=== PATIENT | female | born 1955 | race Caucasian/White ===

== ENCOUNTER 2017-06-16 04:01 | Inpatient (IN) | payer OTHER ==
--- NOTE | 2017-06-16 04:24 | PDOC ---
History of Present Illness - General History Source: Patient Exam Limitations: No Limitations - History of Present Illness Initial Comments: 06/16/17 05:27 The patient is a 62-year-old female BRAN with a significant past medical history of HTN, HLD, IDDM, and hyperkalemia, and presents to the emergency department with elevated blood sugar, nausea, and vomiting since yesterday afternoon. She states she has been feeling weird since yesterday, accompanied by heavy breathing and chest pain upon interview. As per EMS her blood sugar en route to the ED was approximately in the 530s. As per daughter the patient has an insulin pump that has been malfunctioning for a few days. Pt recently started taking pills to lower her potassium as she is planning to have surgery. She denies any sick contacts. Patient is a poor historian due to condition. The patient denies chest pain, headache and dizziness. The patient denies fever , chills, diarrhea and constipation. The patient denies dysuria, frequency, urgency and hematuria. Allergies: morphine Past Surgical History: colon resection, total hysterectomy, partial colectomy, ventral hernia repair Social History: Smoker. Denies ETOH or drug use. <Serenity Levine - Last Filed: 06/16/17 06:26> <Rosie Urrutia - Last Filed: 06/18/17 10:06> - General Stated Complaint: BLOOD SUGAR PROBLEM Time Seen by Provider: 06/16/17 04:20 Past History <Serenity Levine - Last Filed: 06/16/17 06:26> - Past Medical History Anemia: No Asthma: No Cancer: No Cardiac Disorders: No CVA: No COPD: No Dementia: No Diabetes: Yes (INSULIN DEPENDENT) GI Disorders: Yes (COLON CA) Disorders: No HTN: Yes Hypercholesterolemia: Yes Liver Disease: No Psychiatric Problems: Yes (depression,anxeity) Seizures: No Thyroid Disease: No - Surgical History Abdominal Surgery: Yes (COLON RESECTION) Appendectomy: No Cardiac Surgery: No Cholecystectomy: No Lung Surgery: No Neurologic Surgery: No Orthopedic Surgery: No - Immunization History Immunization Up to Date: Yes - Suicide/Smoking/Psychosocial Hx Smoking Status: Yes Smoking History: Current every day smoker Years of Tobacco Use: 0 Have you smoked in the past 12 months: Yes Number of Cigarettes Smoked Daily: 10 Cigars Per Day: 10 'Breaking Loose' booklet given: 01/11/14 Hx Alcohol Use: No Drug/Substance Use Hx: No Substance Use Type: None Hx Substance Use Treatment: No <Rosie Urrutia - Last Filed: 06/18/17 10:06> - Past Medical History Allergies/Adverse Reactions: Allergies Allergy/AdvReac Type Severity Reaction Status Date / Time morphine Allergy Verified 06/16/17 04:23 Home Medications: Ambulatory Orders Atorvastatin Ca [Lipitor] 20 mg PO HS #0 tablet 01/14/14 Insulin Pump Controller [Snap Insulin Pump Controller] 0 units SQ ASDIR Gabapentin 300 mg PO BID #60 capsule 08/23/14 Lipase/Protease/Amylase [Creon Dr 36,000 Units Capsule] 36,000 units PO TIDCM Amlodipine Besylate [Norvasc -] 5 mg PO DAILY #30 tablet 09/12/14 Review of Systems - Review of Systems Able to Perform ROS?: Yes Comments:: 06/16/17 05:28 GENERAL/CONSTITUTIONAL: No fever or chills. No weakness. HEAD, EYES, EARS, NOSE AND THROAT: No change in vision. No ear pain or discharge. No sore throat. CARDIOVASCULAR: (+) Chest pain. RESPIRATORY: (+) Shortness of breath. No cough, wheezing, or hemoptysis. GASTROINTESTINAL: (+) Nausea, (+) vomiting. No diarrhea or constipation. GENITOURINARY: No dysuria, frequency, or change in urination. MUSCULOSKELETAL: No joint or muscle swelling or pain. No neck or back pain. SKIN: No rash NEUROLOGIC: No headache, vertigo, loss of consciousness, or change in strength/ sensation. ENDOCRINE: No increased thirst. No abnormal weight change. HEMATOLOGIC/LYMPHATIC: No anemia, easy bleeding, or history of blood clots. ALLERGIC/IMMUNOLOGIC: No hives or skin allergy. <Serenity Levine - Last Filed: 06/16/17 06:26> *Physical Exam - Vital Signs Last Vital Signs Temp Pulse Resp BP Pulse Ox 98.7 F 110 H 14 128/50 98 06/16/17 04:23 06/16/17 04:23 06/16/17 04:23 06/16/17 04:23 06/16/17 04:23 - Physical Exam Comments: 06/16/17 06:22 GENERAL: Awake, alert, oriented. (+) Febrile. HEAD: No signs of trauma EYES: PERRLA, EOMI, sclera anicteric, conjunctiva clear ENT: Auricles normal inspection, hearing grossly normal, nares patent, oropharynx clear without exudates. (+) Dry mucosa. (+) Oral mucous membranes completely dry. NECK: Normal ROM, supple, no lymphadenopathy, JVD, or masses LUNGS: Breath sounds equal, clear to auscultation bilaterally. No wheezes, and no crackles HEART: (+) Sinus tachycardia. Regular rhythm, normal S1 and S2, no murmurs, rubs or gallops ABDOMEN: Soft, nontender, normoactive bowel sounds. No guarding, no rebound. No masses EXTREMITIES: Normal range of motion, no pitting edema. No clubbing or cyanosis. No cords, erythema, or tenderness NEUROLOGICAL: Cranial nerves II through XII grossly intact. SKIN: Warm, Dry, normal turgor, no rashes or lesions noted. <Levine,Serenity - Last Filed: 06/16/17 06:26> ED Treatment Course - LABORATORY CBC & Chemistry Diagram: 06/16/17 04:37 06/16/17 04:37 - ADDITIONAL ORDERS Additional order review: Laboratory Results 06/16/17 06/16/17 04:37 04:37 Sodium 129 L Potassium 6.6 H* D Chloride 95 L D Carbon Dioxide 13 L D Anion Gap 21 H BUN 43 H D Creatinine 2.5 H D Creat Clearance w eGFR 19.65 Random Glucose 762 H* D Calcium 9.4 Total Bilirubin 0.5 D AST 18 ALT 14 D Alkaline Phosphatase 144 H D Creatine Kinase 125 Troponin I < 0.02 Total Protein 6.7 Albumin 3.2 L D 06/16/17 04:37 RBC 3.41 L MCV 89.1 MCHC 30.3 L RDW 15.9 H D MPV 7.2 L Neutrophils % 89.7 H D Lymphocytes % 5.2 L D Monocytes % 4.8 Eosinophils % 0.1 D Basophils % 0.2 - Medications Given in the ED: ED Medications Discontinued Medications Generic Name Dose Route Start Last Admin Trade Name Freq PRN Reason Stop Dose Admin Insulin Human Regular 10 units 06/16/17 04:25 06/16/17 05:09 Novolin R Vial *For Ivpush Or Iv Drip Only* IVPUSH 06/16/17 04:26 10 units ONCE ONE Administration Ondansetron HCl 4 mg 06/16/17 04:32 06/16/17 05:09 Zofran Injection IVPB 06/16/17 04:33 4 mg ONCE ONE Administration <Serenity Levine - Last Filed: 06/16/17 06:26> - LABORATORY CBC & Chemistry Diagram: 06/18/17 05:00 06/18/17 05:00 <Rosie Urrutia - Last Filed: 06/18/17 10:06> Medical Decision Making - Medical Decision Making 06/16/17 06:19 Pt comes with DKA; family states that her insulin pump hasn't been working for 2 days and she has had a "bad cold" Pt is a smoker of cigarettes. On exam she is febrile. She has no complaints of abd pain or suprapubic pain. She has no flank pain. 06/18/17 10:01 Pt comes in severe DKA. SHe was given 10U regular insulin IVP guillermina she first came into the ER. EMS started IVNSS 1L Pt received another L on arrival Pt had a repeat 10U regular insulin IVP, as the nurse readied a regular insulin drip. Pt received a 3rd L of NSS. Pt also received 1 ampule of sodium bicarbonate in the 3rd L of NSS when her result of K+ elevation initially came back. Pt also given calcium gluconate. Pt also given ca+ channel chasity, as her BP is elevated and she is tachycardic. Pt has a bilateral pneumonia; she received zosyn in the ER and she is getting humidified O2 via nasal cannula. Pt signed out to the day ER doctor. SHe was admitted to ICU. <Rosie Urrutia - Last Filed: 06/18/17 10:06> *DC/Admit/Observation/Transfer <Serenity Levine - Last Filed: 06/16/17 06:26> - Discharge Dispostion Admit: Yes <Rosie Urrutia - Last Filed: 06/18/17 10:06> Diagnosis at time of Disposition: Diabetes mellitus, insulin dependent (IDDM), uncontrolled, DKA (diabetic ketoacidosis), Bilateral pneumonia - Discharge Dispostion Condition at time of disposition: Guarded
[2017-06-16] MEDS ORDERED: INSULIN REGULAR HUMAN 100 UNITS/ML *VIAL IVPUSH ONE ×2 (04:25→05:55)
[2017-06-16 04:26] VITALS: BMI 35.4
[2017-06-16] MEDS ORDERED: ONDANSETRON 4 MG/2 ML VIAL IVPB ONE (04:32)
[2017-06-16] MEDS ORDERED: INSULIN REGULAR HUMAN 100 UNITS/ML *VIAL ONE ×3 (04:46→09:05)
[2017-06-16] MEDS ORDERED: ONDANSETRON 4 MG/2 ML VIAL ONE (04:46)
[2017-06-16 04:56] LABS: BASOPHIL 0.2 % (0-2.0); EOSINOPHIL 0.1 % (0-4.5); MCHC 30.3 g/dl (32.0-36.0); MEAN CELL VOLUME 89.1 fl (80-96); MEAN PLT VOLUME 7.2 fl (7.5-11.1); NEUTROPHILS 89.7 % (42.8-82.8); PLATELET COUNT 487 K/MM3 (134-434); RDW 15.9 % (11.6-15.6); WHITE BLOOD COUNT 12.3 K/mm3 (4.0-10.0)
[2017-06-16 05:19] LABS: ALBUMIN 3.2 g/dl (3.4-5.0); ANION GAP 21 (8-16); BILIRUBIN,TOTAL 0.5 mg/dL (0.2-1.0); CALCIUM 9.4 mg/dL (8.5-10.1); CO2 13 mmol/L (21-32); CREATININE 2.5 mg/dL (0.55-1.02); SGOT/AST 18 U/L (15-37); SGPT/ALT 14 U/L (12-78); TOT PROT 6.7 g/dl (6.4-8.2)
[2017-06-16 05:20] LABS: ALK PHOS 144 U/L (45-117); CPK 125 IU/L (26-192); TROPONIN I < 0.02 ng/ml (0.00-0.05)
[2017-06-16 05:25] LABS: GLUCOSE,RANDOM 762 mg/dL (74-106)
[2017-06-16 05:27] LABS: ACETONE SERUM POSITIVE LARGE 3+ (NEGATIVE)
[2017-06-16] MEDS ORDERED: INSULIN REGULAR 100 UNITS in SODIUM CHLORIDE 99 ML IVPB ONE (05:30)
[2017-06-16] MEDS ORDERED: SODIUM BICARBONATE 8.4% 50 MEQ/50 ML VIAL IV ONE (05:38)
[2017-06-16] MEDS ORDERED: SODIUM BICARBONATE 8.4% - 50 ML ONE (05:50)
[2017-06-16] MEDS ORDERED: SODIUM CHLORIDE 0.9% 500 ML INFUS.BAG IV ONE (05:55)
[2017-06-16] MEDS ORDERED: CALCIUM GLUCONATE 10% - 1,000 MG/10 ML VIAL IVPUSH ONE (06:12)
[2017-06-16] MEDS ORDERED: ACETAMINOPHEN 1000 MG/100 ML VIAL (NON FORMULARY) IVPB ONE (06:14)
[2017-06-16] MEDS ORDERED: PIPERACILLIN/TAZOB 3.375 GM 3.375 GM in DEXTROSE 5%-WATER - 50 ML IVPB ONE (06:22)
[2017-06-16] MEDS ORDERED: CALCIUM GLUCONATE 10% - 1,000 MG/10 ML VIAL ONE (06:23)
[2017-06-16] MEDS ORDERED: ACETAMINOPHEN INJECTION 100 ML IVPB ONE (06:23)
[2017-06-16] MEDS ORDERED: PIPERACILLIN/TAZOB 3.375 GM 50 ML IVPB ONE (06:24)
[2017-06-16] MEDS ORDERED: dilTIAZem HCL 50 MG/10 ML - 10 ML VIAL IVPUSH ONE ×2 (06:37→07:17)
[2017-06-16] MEDS ORDERED: dilTIAZem HCL 125 MG/25 ML - 25 ML VIAL ONE (06:38)
[2017-06-16 06:48] LABS: ANION GAP 22 (8-16); CALCIUM 8.8 mg/dL (8.5-10.1); CO2 12 mmol/L (21-32); CREATININE 2.4 mg/dL (0.55-1.02)
[2017-06-16 06:59] LABS: GLUCOSE,RANDOM 609 mg/dL (74-106)
[2017-06-16] MEDS ORDERED: SODIUM CHLORIDE 0.45% 1,000 ML IV SCH (07:30)
[2017-06-16] MEDS: INSULIN DETEMIR 100 UNITS/ML MDV SQ SCH ×3 (09:29→16:11)
[2017-06-16 09:57] LABS: CHOLESTEROL 122 mg/dL (50-200)
[2017-06-16 09:58] LABS: TROPONIN I < 0.02 ng/ml (0.00-0.05)
[2017-06-16 09:59] LABS: CPK 157 IU/L (26-192)
[2017-06-16 10:49] LABS: ANION GAP 14 (8-16); CALCIUM 8.6 mg/dL (8.5-10.1); CO2 20 mmol/L (21-32); GLUCOSE,RANDOM 245 mg/dL (74-106)
[2017-06-16 10:50] LABS: CREATININE 2.1 mg/dL (0.55-1.02)
[2017-06-16] MEDS ORDERED: SODIUM CHLORIDE 1,000 ML IV SCH (11:15)
--- NOTE | 2017-06-16 11:40 | CONSULT ---
Consultation: REQUESTING PROVIDER: CONSULT REQUEST: RENAL CONSULT Freight Shipping Agent: Dr. Capone. HISTORY OF PRESENT ILLNESS: Patient is a 62 year old female came in to the ED via EMS with the chief complaint of weakness, tiredness, nausea, vomiting and diarrhoea. As per the patient, she has been feeling very well for the past few days. Patient was given a pill for hyperkalemia (says K was around 6) by her renal doctor which she didn't tolerate and started several episodes of watery diarrhoea, non bloody x 3 days ago. She mentions she lost her appetite, hasn't eaten for 2 days and in the meantime, her Insulin pump stopped working x 2 days. Yesterday, she started feeling nauseous with vomiting 3-4 episodes, brownish in colour, non bloody. Patient reports she checked her finger stick glucose and it was around 500. When EMS arrived, it was even higher as per the patient. Does mention she had subjective fevers, dry cough and shortness of breath but no chills, rigors, sweating, chest pain, palpitation, abdominal pain, headaches , loc, tingling or numbness. Bladder habit was normal. No urinary symptoms. In the ED, on arrival, she had a Temp of 99.5 F, tachycardic to a 100 bpm, normal BP. Labs were significant for leukocytosis of 12.3, H/H 9.2/30.4; K-5.2 ; Random glucose of 609. She was sent to the ICU for management of DKA. Today, she says she feels much better. No complaints. Past Medical Hx: IDDM, HTN, hyperlipidemia, CKD, carpal tunnel syndrome (B/L) Allergies: Morphine-->but patient says she is not allergic to Morphine anymore. Past surgical hx: incisional hernia with mesh ( on 08/31/2014), lysis of adhesions, colon CA, s/p colon resection with a reversal, s/p total hysterectomy Social: Lives at home with her Smoking: Current smoker- has been smoking since age 15 yrs, 1-1/2 a pack/day Alcohol: Denies Drugs: Denies REVIEW OF SYSTEMS: CONSTITUTIONAL: Present: generalized weakness Absent: fever, chills, diaphoresis, malaise, loss of appetite, weight change HEENT: Absent: rhinorrhea, nasal congestion, throat pain, throat swelling, difficulty swallowing, mouth swelling, ear pain, eye pain, visual changes CARDIOVASCULAR: Absent: chest pain, syncope, palpitations, irregular heart rate, lightheadedness , peripheral edema RESPIRATORY: Absent: cough, shortness of breath, dyspnea with exertion, orthopnea, wheezing, stridor, hemoptysis GASTROINTESTINAL: Absent: abdominal pain, abdominal distension, nausea, vomiting, diarrhea, constipation, melena, hematochezia GENITOURINARY: Absent: dysuria, frequency, urgency, hesitancy, hematuria, flank pain, genital pain MUSCULOSKELETAL: Absent: myalgia, arthralgia, joint swelling, back pain, neck pain SKIN: Absent: rash, itching, pallor HEMATOLOGIC/IMMUNOLOGIC: Absent: easy bleeding, easy bruising, lymphadenopathy, frequent infections ENDOCRINE: Absent: unexplained weight gain, unexplained weight loss, heat intolerance, cold intolerance NEUROLOGIC: Absent: headache, focal weakness or paresthesias, dizziness, unsteady gait, seizure, mental status changes, bladder or bowel incontinence PSYCHIATRIC: Absent: anxiety, depression, suicidal or homicidal ideation, hallucinations. PHYSICAL EXAMINATION Vital Signs - 24 hr 06/16/17 06/16/17 06/16/17 08:00 09:00 09:57 Temperature 99.5 F Pulse Rate 99 H 100 H Pulse Rate [ 115 H Left] Respiratory 20 18 Rate Blood Pressure 166/72 Blood Pressure 152/74 [Left Arm] O2 Sat by Pulse 100 100 Oximetry (%) 06/16/17 06/16/17 06/16/17 10:36 10:56 11:00 Temperature 99.4 F Pulse Rate 102 H 100 H Pulse Rate [ Left] Respiratory 18 22 Rate Blood Pressure 129/52 160/90 Blood Pressure [Left Arm] O2 Sat by Pulse 100 Oximetry (%) GENERAL: Patient is lying comfortably in bed, Awake, alert, and fully oriented, in no acute distress. HEAD: Normal with no signs of trauma. EYES: EOM intact, no pallor or icterus. EARS, NOSE, THROAT: Ears normal. Moist mucous membranes. NECK: Supple. LUNGS: B/L Breath sounds equal, clear to auscultation bilaterally. No wheezes, and no crackles. HEART: Regular rate and rhythm, normal S1 and S2 without murmur. ABDOMEN: Surgical scar mandujano + Soft, nontender, not distended, normoactive bowel sounds, no guarding, no rebound, no masses. No hepatomegaly or splenomegaly. MUSCULOSKELETAL: Normal range of motion at all joints. No bony deformities or tenderness. No CVA tenderness. UPPER EXTREMITIES: 2+ pulses, warm, well-perfused. No cyanosis. No clubbing. Cap refill <2 seconds. No peripheral edema. LOWER EXTREMITIES: 2+ pulses, warm, well-perfused. No calf tenderness. No peripheral edema. NEUROLOGICAL: No facial droop, power 5/5 in all extremities. Normal speech. Gait not observed. PSYCHIATRIC: Cooperative. Good eye contact. Appropriate mood and affect. SKIN: Warm, dry, normal turgor, no rashes or lesions noted. Laboratory Results - last 24 hr 06/16/17 06/16/17 06/16/17 09:08 09:08 09:08 Sodium Potassium Chloride Carbon Dioxide Anion Gap BUN Creatinine Random Glucose Hemoglobin A1c % 8.6 H D Calcium Creatine Kinase Cancelled Troponin I Cancelled Triglycerides Cancelled Cholesterol Cancelled Total LDL Cholesterol Cancelled HDL Cholesterol Cancelled 06/16/17 10:15 Sodium 141 Potassium 4.4 D Chloride 107 Carbon Dioxide 20 L D Anion Gap 14 BUN 42 H Creatinine 2.1 H Random Glucose 245 H D Hemoglobin A1c % Calcium 8.6 Creatine Kinase Troponin I Triglycerides Cholesterol Total LDL Cholesterol HDL Cholesterol Active Medications Generic Name Dose Route Start Last Admin Trade Name Alfonso PRN Reason Stop Dose Admin Acetaminophen 650 mg 06/16/17 07:27 Tylenol - PO Q6H PRN FEVER OR PAIN Amlodipine Besylate 5 mg 06/16/17 10:00 Norvasc - PO DAILY [facility] Atorvastatin Calcium 10 mg 06/16/17 22:00 Lipitor - PO HS [facility] Insulin Human Regular 100 100 mls @ 10 mls/hr 06/16/17 05:30 06/16/17 06:13 units/ Sodium Chloride IVPB 06/16/17 15:29 10 mls/hr NOW ONE Administration Protocol 10 UNITS/HR Sodium Chloride 1,000 mls @ 200 mls/hr 06/16/17 11:15 Normal Saline - IV ASDIR [facility] Insulin Detemir 20 units 06/16/17 08:00 06/16/17 09:29 Levemir Vial SQ Not Given BIDI [facility] Pneumococcal 13-Valent Conj Vacc 0.5 ml 06/16/17 11:20 Prevnar 13 Syringe - IM 06/16/17 11:21 .ONCE ONE Patient is a 62 year old female came in to the ED via EMS with the chief complaint of weakness, tiredness, nausea, vomiting and diarrhoea. As per the patient, she has been feeling very well for the past few days. Patient was given a pill for hyperkalemia (says K was around 6) by her renal doctor which she didn't tolerate and started several episodes of watery diarrhoea, non bloody x 3 days ago. ASSESSMENT/PLAN: 1. Uncontrolled Diabetes Mellitus 2. Diabetic Ketoacidosis 3. Acute on CKD 4. Hyperkalemia- resolved 5. Hypertension-controlled 6. Hyperlipidemia 7. H/O Right lower lobe 1.8 CM LUNG MASS SUSPICIOUS FOR NEOPLASTIC DISEASE 8. H/o Colon cancer s/p colon resection with reversal 9. Carpal Tunnel Syndrome- was scheduled for surgery but was on hold due to hyperkalemia as outpatient. Acute on chronic Kidney disease On arrival, Creatinine 2.5--->2.4-->2.1 is improving. Baseline creatinine 1.4 -1.7 in 2014 Continue IV Hydration Avoid any nephrotoxic drugs Hyperkalemia Likely in the setting of DKA Now resolved, K is 4.4 Rest as per primary. Case to be discussed with Dr. Llanos. Dispo: We will continue to follow the patient. Thank you for this consultative opportunity. Visit type - Emergency Visit Emergency Visit: Yes ED Registration Date: 06/16/17 Care time: The patient presented to the Emergency Department on the above date and was hospitalized for further evaluation of their emergent condition. - New Patient This patient is new to me today: Yes Date on this admission: 06/16/17 - Critical Care Critical Care patient: Yes Total Critical Care Time (in minutes): 35 Critical Care Statement: The care of this patient involved high complexity decision making to prevent further life threatening deterioration of the patient 's condition and/or to evaluate & treat vital organ system(s) failure or risk of failure.
[2017-06-16] MEDS: amLODIPine BESYLATE 5 MG TABLET (FP) PO SCH (12:13)
--- NOTE | 2017-06-16 12:38 | PN ---
Teaching Attending Note Name of Resident: Hiwot Castle ATTENDING PHYSICIAN STATEMENT I saw and evaluated the patient. I reviewed the resident's note and discussed the case with the resident. I agree with the resident's findings and plan as documented. SUBJECTIVE: Pt seen and examined in the ICU. Briefly, 62yo female with h/o HTN, hyperlipidemia, IDDM, who was admitted with hyperglycemia after her insulin pump has not been working for 2 days. Fingersticks at home have been high but has not been covering herself. Does report a cough, some subjective fevers and chills. Found to have an anion gap and hyperkalemic, started on IVF and insulin gtt, transferred to the ICU for further monitoring. OBJECTIVE: Last Vital Signs Temp Pulse Resp BP Pulse Ox 99.4 F 100 H 22 160/90 100 06/16/17 10:56 06/16/17 10:56 06/16/17 10:56 06/16/17 10:56 06/16/17 11:00 Intake & Output 06/13/17 06/14/17 06/15/17 06/16/17 23:59 23:59 23:59 23:59 Output Total 50 Balance -50 Weight 187 lb 2.759 oz Gen: lethargic but awake HEENT: dry mucous membranes Heart: tachycardic, regular Lung: decreased breath sounds at the bases Abd: soft, nontender Ext: no edema CBC, BMP 06/16/17 04:37 06/16/17 10:15 Active Medications Acetaminophen (Tylenol -) 650 mg PO Q6H PRN PRN Reason: FEVER OR PAIN Amlodipine Besylate (Norvasc -) 5 mg PO DAILY [facility] Last Admin: 06/16/17 12:13 Dose: 5 mg Atorvastatin Calcium (Lipitor -) 10 mg PO HS [facility] Heparin Sodium (Porcine) (Heparin -) 5,000 unit SQ TID [facility] Sodium Chloride (Normal Saline -) 1,000 mls @ 200 mls/hr IV ASDIR [facility] Last Admin: 06/16/17 12:11 Dose: 200 mls/hr Insulin Detemir (Levemir Vial) 20 units SQ BIDI [facility] Pneumococcal 13-Valent Conj Vacc (Prevnar 13 Syringe -) 0.5 ml IM .ONCE ONE Stop: 06/16/17 13:01 ASSESSMENT AND PLAN: Diabetic Ketoacidosis Acute on Chronic Renal Failure HTN Lung Mass r/o Pneumonia Smoker - IVF resuscitation - monitor urine output, creatinine - monitor BGM, BMP - insulin gtt - start long acting insulin when anion gap closed - empiric antibiotics - f/u cultures - will need CT chest noncontrast when stable, per pt she had a PET scan 2 years ago which was reportedly negative - DVT prophylaxis - continue ICU monitoring critical care time spent in reviewing chart, evaluating patient and formulating plan 40 min
--- NOTE | 2017-06-16 12:41 | EKG ---
Test Reason : Blood Pressure : / mmHG Vent. Rate : 112 BPM Atrial Rate : 112 BPM P-R Int : 152 ms QRS Dur : 090 ms QT Int : 342 ms P-R-T Axes : 072 064 075 degrees QTc Int : 466 ms SINUS TACHYCARDIA INCOMPLETE RIGHT BUNDLE BRANCH BLOCK POSSIBLE LEFT ATRIAL ENLARGEMENT SEPTAL INFARCT , AGE UNDETERMINED ABNORMAL ECG WHEN COMPARED WITH ECG OF 08-SEP-2014 01:29, SEPTAL INFARCT IS NOW PRESENT T WAVE VARIATION Confirmed by ACOSTA HIGUEAR, VICENTE ([id number]) on 06/16/2017 12:41:11 PM Referred By: Confirmed By:VICENTE SHANE MD
[2017-06-16] MEDS ORDERED: CEFTRIAXONE IVPB SCH (12:45)
[2017-06-16] MEDS ORDERED: AZITHROMYCIN IVPB 500 MG in DEXTROSE 5%-WATER - 250 ML IVPB SCH (12:45)
[2017-06-16] MEDS ORDERED: [UNRECOGNIZED DRUG - OTHER] IVPB SCH (12:45)
[2017-06-16] MEDS ORDERED: PNEUMOC 13-VAL CONJ-DIP CRM/PF 0.5 ML DISP.SYRIN IM ONE (13:00)
[2017-06-16] MEDS ORDERED: CEFTRIAXONE 50 ML IVPB SCH (13:17)
--- NOTE | 2017-06-16 13:31 | PN ---
Progress Note, Physician Chief Complaint: ID Full note dictated Couph productive chills 2 days with Insulin pump not functioning well Low grade temp - Current Medication List Current Medications: Active Medications Acetaminophen (Tylenol -) 650 mg PO Q6H PRN PRN Reason: FEVER OR PAIN Amlodipine Besylate (Norvasc -) 5 mg PO DAILY [facility] Last Admin: 06/16/17 12:13 Dose: 5 mg Atorvastatin Calcium (Lipitor -) 10 mg PO HS [facility] Heparin Sodium (Porcine) (Heparin -) 5,000 unit SQ TID [facility] Sodium Chloride (Normal Saline -) 1,000 mls @ 200 mls/hr IV ASDIR [facility] Last Admin: 06/16/17 12:11 Dose: 200 mls/hr Azithromycin 500 mg/ Dextrose 250 mls @ 250 mls/hr IVPB DAILY [facility] Ceftriaxone Sodium (Rocephin 1gm Ivpb (Pre-Docked)) 50 mls @ 100 mls/hr IVPB DAILY [facility] Insulin Detemir (Levemir Vial) 20 units SQ BIDI [facility] - Objective Vital Signs: Vital Signs Temperature 99.4 F 06/16/17 10:56 Pulse Rate 96 H 06/16/17 12:00 Respiratory Rate 23 06/16/17 12:00 Blood Pressure 122/59 06/16/17 12:00 O2 Sat by Pulse Oximetry (%) 100 06/16/17 11:00 Constitutional: Yes: Well Nourished, No Distress HENT: Yes: WNL, Atraumatic Neck: Yes: WNL, Supple Cardiovascular: Yes: Regular Rate and Rhythm, S1, S2. No: Murmur Respiratory: Yes: WNL, Regular, CTA Bilaterally, Other (Rales RLL) Gastrointestinal: Yes: Soft. No: Tenderness Edema: No Labs: CBC, BMP 06/16/17 10:15 Assessment/Plan Microbiology Laboratory Tests 06/16/17 06/16/17 06/16/17 04:37 04:37 06:10 WBC 12.3 H D RBC 3.41 L Hgb 9.2 L Plt Count 487 H BUN 47 H Alkaline Phosphatase 144 H D Albumin 3.2 L D Acetone, Qual Positive large 3+ H Assessment DKA Empiric treatment for PNA Lung Mass ? Since 2014 Plan Blood cultures LGA Sputum c/s Ceftriaxone 2 grs daily Discussed with pulmonary team CT chest Quant polo Trotter MD
--- NOTE | 2017-06-16 13:43 | CONSULT ---
Consultation: CONSULT REQUEST: critical care HISTORY OF PRESENT ILLNESS: 62yo woman, current smoker, with PMH of HTN, HLD, IDDM (insulin pump, dx 2000), CKD, colon Ca s/p resection (2011, last c-scope few months w/o e/o Ca) who presents with DKA in the setting of malfunctioning insulin pump for the past 2 days. The patient reports finger glucose sticks in the 500-600 range while at home without available back-up insulin pens. For the past several days she endorses chills, lethargy, and increased non-productive cough. She denies any sick contacts or recent travel. She had 2x NBNB emesis yesterday. Endorses increased thirst. No chest pain, abdominal pain or urinary symptoms. In the ED her VS were T 99.5 F, HR 100, BP 128/50, pSaO2 98% on RA. Labs were notable for leukocytosis (WBC 12.3K), hyperglycemia (BG 609), AG 21, +acetone in the urine. She was started on an insulin gtt and transferred to the ICU for further monitoring. PMH: Lung mass - 2014, Right middle lobe 1.8cm nodule on chest CT in 2014 that was PET neg, no further w/u PSH: colon Ca resection - [address] Diana, f/u C-scopes with Dr. Robert RAMIREZ Hernia repair FMH: No history of cancer, father with "heart disease" Social: Lives at home with and dog. 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 Baseline mobility - dyspnea after walking 2 blocks Daily smoker - approx 24 pack years (1/2 pack for 47yrs) Denies EtOH REVIEW OF SYSTEMS: CONSTITUTIONAL: +chills, generalized weakness HEENT: Absent: rhinorrhea, nasal congestion, throat pain, throat swelling, difficulty swallowing, mouth swelling, ear pain, eye pain, visual changes CARDIOVASCULAR: Absent: chest pain, syncope, palpitations, irregular heart rate , lightheadedness, peripheral edema RESPIRATORY: +cough, +SOB/WHITFIELD/orthopnea (sleeps with 2 pillows) Absent: wheezing, stridor, hemoptysis GASTROINTESTINAL: +nausea, 2x NBNB emesis Absent: abdominal pain, abdominal distension, diarrhea, constipation, melena, hematochezia GENITOURINARY: Absent: dysuria, frequency, urgency, hesitancy, hematuria, flank pain, genital pain MUSCULOSKELETAL: Absent: myalgia, arthralgia, joint swelling, back pain, neck pain SKIN: Absent: rash, itching, pallor HEMATOLOGIC/IMMUNOLOGIC: Absent: easy bleeding, easy bruising, lymphadenopathy, frequent infections ENDOCRINE: +increased thirst Absent: unexplained weight gain, unexplained weight loss, heat intolerance, cold intolerance NEUROLOGIC: Absent: headache, focal weakness or paresthesias, dizziness, unsteady gait, seizure, mental status changes, bladder or bowel incontinence PHYSICAL EXAMINATION Vital Signs Period Temp Pulse Resp BP Sys/Mcdaniel Pulse Ox Last 24 Hr 98.7 F-99.5 F 92-115 14-23 122-166/50-90 98-100 Intake & Output 06/13/17 06/14/17 06/15/17 06/16/17 23:59 23:59 23:59 23:59 Intake Total 2630 Output Total 1350 Balance 1280 Weight 84.9 kg GENERAL: aaox3, nad EYES: sclera anicteric, conjunctiva clear ENT: oropharynx clear without exudates, dry mucous membranes. NECK: supple, no cervical LAD LUNGS: CTAB, no wheezes, crackles or rhonchi HEART: rrr, normal S1/S2 without murmur, rub or gallop. ABDOMEN: Soft, ntnd, normoactive bowel sounds UPPER EXTREMITIES: 2+ pulses, wwp, no edema LOWER EXTREMITIES: 2+ pulses, wwp, no edema CBC, BMP 06/16/17 04:37 06/16/17 14:35 Hepatic Panel Total Bilirubin 0.5 mg/dL (0.2-1.0) D 06/16/17 04:37 AST 18 U/L (15-37) 06/16/17 04:37 ALT 14 U/L (12-78) D 06/16/17 04:37 Alkaline Phosphatase 144 U/L (45-117) H D 06/16/17 04:37 Albumin 3.2 g/dl (3.4-5.0) L D 06/16/17 04:37 Ca - 8.6 Hgb A1c - 8.6% Urine Acetone - Positive Large 3+ Imaging: CXR 06/16/2017: "since prior study of 09/08/2014, the mid-right lung mass (also seen 09/09/2014) has increased in size. Now approximately 4.5 x 3.0cm. Heart is not enlarged. Aortic and hilar contours are unremarkable." Active Medications Acetaminophen (Tylenol -) 650 mg PO Q6H PRN PRN Reason: FEVER OR PAIN Last Admin: 06/16/17 14:53 Dose: 650 mg Albuterol/Ipratropium (Duoneb -) 1 amp NEB Q6H PRN PRN Reason: SHORTNESS OF BREATH Amlodipine Besylate (Norvasc -) 5 mg PO DAILY [facility] Last Admin: 06/16/17 12:13 Dose: 5 mg Atorvastatin Calcium (Lipitor -) 10 mg PO HS [facility] Heparin Sodium (Porcine) (Heparin -) 5,000 unit SQ TID [facility] Last Admin: 06/16/17 14:57 Dose: 5,000 unit Sodium Chloride (Normal Saline -) 1,000 mls @ 200 mls/hr IV ASDIR [facility] Last Admin: 06/16/17 12:11 Dose: 200 mls/hr Ceftriaxone Sodium (Rocephin 2gm Ivpb (Pre-Docked)) 100 mls @ 200 mls/hr IVPB DAILY [facility] Azithromycin 500 mg/ Sodium (Chloride) 250 mls @ 250 mls/hr IVPB DAILY [facility] Insulin Aspart (Novolog) 6 units SQ NOW ONE Stop: 06/17/17 19:07 Insulin Aspart (Novolog Vial Sliding Scale -) 1 vial SQ Q2H [facility] PRN Reason: Protocol Insulin Detemir (Levemir Vial) 20 units SQ BIDI [facility] Last Admin: 06/16/17 16:11 Dose: Not Given Pantoprazole Sodium (Protonix -) 40 mg PO DAILY [facility] Last Admin: 06/16/17 19:51 Dose: 40 mg ASSESSMENT/PLAN: 62yo woman who is a current smoker (24 pack-years) with HTN, IDDM, CKD, colon Ca s/p resection who presents with DKA and acute on chronic renal failure in the setting of malfunctioning insulin pump and possible infection. Patient reports increased cough (non-productive) with generalized weakness. Patient started on insulin gtt with aggressive IVF resuscitation. ID was consulted, and patient started on Ceftriaxone and Azithromycin for CAP/atypical coverage vs post-obstrucive PNA. Chest radiograph revealed lung mass first noted in 2014 ( 1.8cm nodule on CT imaging, PET neg, never biopsied) that now appears larger. Discussed with patient suspicion for malignancy, and will repeat chest CT during this admission for further work-up. #DKA -insulin gtt until BG <250 -BGM q1h and BMP q4h until AG closed -Levemir 20U BID + ISS ACHS when AG closed -IVF resuscitation - NS @ 200cc/hr #possible CAP vs post-obstructive PNA -ID consulted -Empiric abx per ID (Azithromycin + Ceftriaxone) -f/u Legionella Ag -f/u Quant gold -f/u cultures #lung mass -non-con Chest CT #acute on CKD -Nephrology consulted -f/u Renal U/S -f/u UA -monitor urine output, creatinine #FEN -NS 200cc/hr -HyperK, resolving. Monitor lytes daily. -Diabetic/Na controlled diet #PPX -DVT - Heparin 5000U SQ TID Dispo: Continue ICU monitoring FULL code d/w Dr. Karsten Castle MD PGY-1 Visit type - Emergency Visit Emergency Visit: No - New Patient This patient is new to me today: Yes Date on this admission: 06/16/17 - Critical Care Critical Care patient: Yes Total Critical Care Time (in minutes): 40 Critical Care Statement: The care of this patient involved high complexity decision making to prevent further life threatening deterioration of the patient 's condition and/or to evaluate & treat vital organ system(s) failure or risk of failure.
[2017-06-16] MEDS: ACETAMINOPHEN 325 MG TABLET (FP) PO PRN (14:53)
[2017-06-16] MEDS: HEPARIN NA (PORCINE) 5,000 UNITS/ML 1ML VIAL SQ SCH ×2 (14:57→21:15)
[2017-06-16 15:32] LABS: ANION GAP 13 (8-16); CALCIUM 8.6 mg/dL (8.5-10.1); CO2 20 mmol/L (21-32); CREATININE 2.2 mg/dL (0.55-1.02); GLUCOSE,RANDOM 236 mg/dL (74-106)
[2017-06-16] MEDS ORDERED: CEFTRIAXONE 2 GM in DEXTROSE 5%-WATER - 100 ML IVPB ONE (16:11)
--- NOTE | 2017-06-16 16:27 | PN ---
Teaching Attending Note Name of Resident: Danielle Duque (Nephrology) ATTENDING PHYSICIAN STATEMENT I saw and evaluated the patient. I reviewed the resident's note and discussed the case with the resident. I agree with the resident's findings and plan as documented. Nephrology Consult Please see note written by medical sales. Pt is a 62 year old female with pmhx of HTN, HLD, IDDM, and hyperkalemia who presents the ER with nausea and vomiting. She was found to be in DKA. She was admited to the ICU and is on an insulin drip. She was found to have elevated creatinine and I was called to evaluate her. pmhx HTN, HLD, IDDM, and hyperkalemia social hx denies family hx dm allergies morphine Current Medications Generic Name Dose Route Start Last Admin Trade Name Freq PRN Reason Stop Dose Admin Acetaminophen 650 mg 06/16/17 07:27 06/16/17 14:53 Tylenol - PO 650 mg Q6H PRN Administration FEVER OR PAIN Amlodipine Besylate 5 mg 06/16/17 10:00 06/16/17 12:13 Norvasc - PO 5 mg DAILY [facility] Administration Atorvastatin Calcium 10 mg 06/16/17 22:00 Lipitor - PO HS [facility] Heparin Sodium (Porcine) 5,000 unit 06/16/17 14:00 06/16/17 14:57 Heparin - SQ 5,000 unit TID [facility] Administration Sodium Chloride 1,000 mls @ 200 mls/hr 06/16/17 11:15 06/16/17 12:11 Normal Saline - IV 200 mls/hr ASDIR [facility] Administration Azithromycin 500 mg/ Dextrose 250 mls @ 250 mls/hr 06/16/17 12:45 06/16/17 14: 53 IVPB 250 mls/hr DAILY [facility] Administration Ceftriaxone Sodium 100 mls @ 200 mls/hr 06/17/17 10:00 Rocephin 2gm Ivpb (Pre-Docked) IVPB DAILY [facility] Ceftriaxone Sodium 2 gm/ 100 mls @ 200 mls/hr 06/16/17 16:11 Dextrose IVPB 06/16/17 16:40 ONCE ONE Insulin Detemir 20 units 06/16/17 08:00 06/16/17 16:11 Levemir Vial SQ Not Given BIDI [facility] Current Active Problems DKA (diabetic ketoacidosis) (Acute) Diabetes mellitus, insulin dependent (IDDM), uncontrolled (Acute) Laboratory Tests 06/16/17 06/16/17 06/16/17 04:37 04:37 06:10 WBC 12.3 H D Hgb 9.2 L Sodium 136 Potassium 5.7 H Chloride 102 Carbon Dioxide 12 L Anion Gap 22 H BUN 47 H Creatinine 2.5 H D 2.4 H Acetone, Qual Positive large 3+ H 06/16/17 06/16/17 10:15 14:35 WBC Hgb Sodium 141 140 Potassium 4.4 D 4.9 Chloride 107 Carbon Dioxide 20 L D Anion Gap BUN 42 H Creatinine 2.1 H 2.2 H Acetone, Qual Last Vital Signs Temp Pulse Resp BP Pulse Ox 99.4 F 92 H 20 137/51 100 06/16/17 10:56 06/16/17 14:00 06/16/17 14:00 06/16/17 14:00 06/16/17 11:00 cardio s12s reg pulm clear GI soft ext neg edema neuro awake Impression 1. CKD with acute component 2. hyperkalemia 3. DKA 4. htn 5. chol Plan - potassium is improved - monitor renal function - will obtain outpt records - check ua and renal ultrasound - cont fluids Dr Llanos
[2017-06-16] MEDS ORDERED: INSULIN (NOVOLOG) ASPART 100 UNITS/ML 10ML VIAL SQ ONE (16:45)
--- NOTE | 2017-06-16 16:58 | HP ---
Admitting History and Physical - Primary Care Physician PCP: Nathalia Arciniega - Admission Chief Complaint: HYPERGLYCEMIA HYPEROSMOLAR STATE History of Present Illness: The patient is a 62-year-old female BRAN with a significant past medical history of HTN, HLD, IDDM, and hyperkalemia, and presents to the emergency department with elevated blood sugar, nausea, and vomiting since yesterday afternoon. She states she has been feeling weird since yesterday, accompanied by heavy breathing and chest pain upon interview. As per EMS her blood sugar en route to the ED was approximately in the 530s. As per daughter the patient has an insulin pump that has been malfunctioning for a few days. Pt recently started taking pills to lower her potassium as she is planning to have surgery. She denies any sick contacts. Patient is a poor historian due to condition. The patient denies chest pain, headache and dizziness. The patient denies fever , chills, diarrhea and constipation. The patient denies dysuria, frequency, urgency and hematuria. History Source: Medical Record Limitations to Obtaining History: Clinical Condition - Past Medical History Cardiovascular: Yes: HTN, Hyperlipdemia Gastrointestinal: Yes: Cancer (COLON), GERD ...: No Psych: Yes: Anxiety Endocrine: Yes: Diabetes Mellitus (ON INSULIN PUMP) - Past Surgical History Past Surgical History: Yes: Colectomy (2 YRS AGO COLON CA), Hernia Repair ( icisional) - Advance Directives Advance Directives: Yes: Health Care Proxy - Smoking History Smoking history: Current every day smoker Have you smoked in the past 12 months: Yes Aproximately how many cigarettes per day: 10 - Alcohol/Substance Use Hx Alcohol Use: No - Social History ADL: Independent History of Recent Travel: No Home Medications - Allergies Allergies/Adverse Reactions: Allergies Allergy/AdvReac Type Severity Reaction Status Date / Time morphine Allergy Verified 06/16/17 04:23 - Home Medications Home Medications: Ambulatory Orders Atorvastatin Ca [Lipitor] 20 mg PO HS #0 tablet 01/14/14 Insulin Pump Controller [Snap Insulin Pump Controller] 0 units SQ ASDIR Gabapentin 300 mg PO BID #60 capsule 08/23/14 Lipase/Protease/Amylase [Ziaon Dr 36,000 Units Capsule] 36,000 units PO TIDCM Amlodipine Besylate [Norvasc -] 5 mg PO DAILY #30 tablet 09/12/14 Review of Systems - Review of Systems Constitutional: reports: Malaise, Weakness Eyes: reports: No Symptoms HENT: reports: No Symptoms Neck: reports: No Symptoms Cardiovascular: reports: No Symptoms Respiratory: reports: Cough Gastrointestinal: reports: Nausea Genitourinary: reports: No Symptoms Musculoskeletal: reports: Joint Pain Integumentary: reports: No Symptoms Neurological: reports: Confusion Endocrine: reports: No Symptoms Hematology/Lymphatic: reports: No Symptoms Psychiatric: reports: No Symptoms Physical Examination Vital Signs: Vital Signs Temperature 99.4 F 06/16/17 10:56 Pulse Rate 92 H 06/16/17 14:00 Respiratory Rate 20 06/16/17 14:00 Blood Pressure 137/51 06/16/17 14:00 O2 Sat by Pulse Oximetry (%) 100 06/16/17 11:00 Constitutional: Yes: Moderate Distress Eyes: Yes: WNL HENT: Yes: WNL Neck: Yes: WNL Cardiovascular: Yes: WNL Respiratory: Yes: WNL Gastrointestinal: Yes: WNL Musculoskeletal: Yes: WNL Extremities: Yes: WNL Edema: No Peripheral Pulses WNL: Yes Integumentary: Yes: WNL Wound/Incision: Yes: Clean/Dry Neurological: Yes: WNL ...Motor Strength: WNL Psychiatric: Yes: WNL Labs: CBC, BMP 06/16/17 14:35 Assessment/Plan ACUTE HYPEROSMOLAR STATE BGM Q 2HRS RENAL EVAL DR FERRARA ENDOCRINE DR BROOKS IVF IV INSULIN LEVEMIR 20UNITS BID INSULIN PUMP MALFUNCTION WILL NEED TO HAVE IT REASSESSED. LEUKOCYTOSIS ID CONSULT MONITOR IN ICU
--- NOTE | 2017-06-16 17:25 | CONS ---
DATE OF CONSULTATION: DATE OF DICTATION: 06/16/2017 INFECTIOUS DISEASE CONSULTATION HISTORY OF PRESENT ILLNESS: This is a 62-year-old diabetic female with a history of hypertension and an insulin pump who presented to the emergency room with complaints of nausea, vomiting since yesterday afternoon. She also notes over the last 2 days experiencing a productive cough associated with chills. She denies any shortness of breath, diaphoresis, recent weight loss. Her x-rays showed a possible mass on the right lung. Looking back on previous CAT scans from 2014, it appears as though she definitely had a mass at that time. When asked, she says that this issue was put to rest after having a PET scan at [facility] in the past, which did not show evidence for anything "serious". The patient had some sputum production yesterday, but denies any hemoptysis. She has a long history of smoking and continues to smoke. She has no substance abuse history or history of recent travel. Pets include a dog. She has no unusual hobby and no obvious HIV risk factors, though I am not sure she has ever been tested. PAST MEDICAL HISTORY: Includes colon resection, hysterectomy, partial colectomy, ventral hernia repair. MEDICATION: Atorvastatin, an insulin pump, gabapentin, amlodipine, Bystolic, Diovan, Protonix. ALLERGIES: None known. SOCIAL HISTORY: Smoker. Lives at home. No unusual hobbies, pet birds. FAMILY HISTORY: Reviewed. Noncontributory. REVIEW OF SYSTEMS: Respiratory: Productive cough, no hemoptysis. History of a lung mass on CAT scan. Daily smoking. Cardiac: No chest pain, palpitations, syncope, murmur. Gastrointestinal: No nausea, vomiting, no abdominal pain, diarrhea, hematemesis. Genitourinary: No dysuria, hematuria, urinary frequency. PHYSICAL EXAMINATION: General: She is an alert female in no acute distress. Vital signs: Temperature 99.4, pulse 96, blood pressure , respirations 23. Neck: Supple. No adenopathy. Lungs: Clear to percussion with a few right basilar rales. Heart: S1, S2. Regular rhythm without murmur or gallop. Abdomen: Soft. Nontender without hepatosplenomegaly. Extremities: Without clubbing, cyanosis, or edema. LABORATORY: The white count was 12.3 with a hemoglobin of 9.2, platelets of 487. BUN 47, creatinine 2.4, glucose 609, alkaline phosphatase 144. Two sets of blood cultures pending. ASSESSMENT: A 62-year-old female with insulin dependent diabetes presents with DKA, also noted is a productive cough with chest x-ray suggesting a possible mass and/or infiltrate in the right lower lobe. She has had workup for this problem in the past, dating back to 2014, though no definite diagnosis of malignancy as best I can determine. She is at high risk for cancer, and her CAT scan of the chest appears consistent with a neoplastic lesion in 2015. At this point, agree with empiric treatment for community acquired pneumonia as well as post-obstructive pneumonia, Rocephin and azithromycin should be fine for now. She does not appear toxic nor have criteria for sepsis. Obtain blood culture, legionella urinary antigen, sputum for ARMHOLE RAISER LOCKSTITCH, CRP, and CAT scan of the chest. Case was discussed with the pulmonary team. SLOAN KAMARA M.D. [id number]
[2017-06-16] MEDS ORDERED: ZOLPIDEM TARTRATE 5 MG TABLET PO ONE ×2 (18:52→21:15)
[2017-06-16] MEDS ORDERED: AZITHROMYCIN IVPB 500 MG in SODIUM CHLORIDE 250 ML IVPB SCH (19:14)
[2017-06-16] MEDS: PANTOPRAZOLE 40 MG TABLET (FP) PO SCH (19:51)
[2017-06-16 21:11] LABS: ANION GAP 10 (8-16); CALCIUM 8.3 mg/dL (8.5-10.1); CO2 21 mmol/L (21-32); CREATININE 2.2 mg/dL (0.55-1.02); GLUCOSE,RANDOM 255 mg/dL (74-106)
[2017-06-16] MEDS: ATORVASTATIN CA 10 MG TABLET (FP) PO SCH (21:17)
[2017-06-16] MEDS: INSULIN SLIDING SCALE (NOVOLOG) 1 VIAL SQ SCH (21:17)
[2017-06-16] MEDS ORDERED: INSULIN SLIDING SCALE (NOVOLOG) 1 VIAL SQ SCH (22:00)
[2017-06-16 22:41] LABS: URINE APPEARANCE SLCLOUDY; URINE BILIRUBIN NEGATIVE (NEGATIVE); URINE BLOOD 1+ (NEGATIVE); URINE COLOR LTYELLOW; URINE GLUCOSE (UA) NEGATIVE (NEGATIVE); URINE KETONE TRACE (NEGATIVE); URINE NITRITE NEGATIVE (NEGATIVE); URINE UROBILINOGEN NEGATIVE mg/dL (0.2-1.0)
[2017-06-16 22:46] LABS: URINE PROTEIN 1+ (NEGATIVE)
--- NOTE | 2017-06-16 22:47 | CONSULT ---
Consult Consult Specialty:: endocrine /diabetes Referred by:: Reason for Consultation:: dka/dehydration - History of Present Illness History of Present Illness: 62 year old female came in to the ED via EMS with the chief complaint of weakness, tiredness, nausea, vomiting and diarrhoea. As per the patient, she has been feeling very well for the past few days. Patient was given a pill for hyperkalemia (says K was around 6) by her renal doctor which she didn't tolerate and started several episodes of watery diarrhoea, non bloody x 3 days ago. She mentions she lost her appetite, hasn't eaten for 2 days and in the meantime, her Insulin pump stopped working x 2 days. Yesterday, she started feeling weak and vomiting started,sugars were higher each time reaching high 700mg/dl in er.she required iv fluids and insulin drip started. - History Source History Provided By: Patient - Past Medical History Cardio/Vascular: Yes: HTN, Hyperlipdemia Gastrointestinal: Yes: Cancer (COLON), GERD ...: No Psych: Yes: Anxiety Endocrine: Yes: Diabetes Mellitus (ON INSULIN PUMP) - Past Surgical History Past Surgical History: Yes: Colectomy (2 YRS AGO COLON CA), Hernia Repair ( icisional) - Alcohol/Substance Use Hx Alcohol Use: No - Smoking History Smoking history: Current every day smoker Have you smoked in the past 12 months: Yes Aproximately how many cigarettes per day: 10 - Social History Usual Living Arrangement: With Spouse ADL: Independent History of Recent Travel: No Home Medications - Allergies Allergies/Adverse Reactions: Allergies Allergy/AdvReac Type Severity Reaction Status Date / Time morphine Allergy Verified 06/16/17 04:23 - Home Medications Home Medications: Ambulatory Orders Atorvastatin Ca [Lipitor] 20 mg PO HS #0 tablet 01/14/14 Insulin Pump Controller [Snap Insulin Pump Controller] 0 units SQ ASDIR Gabapentin 300 mg PO BID #60 capsule 08/23/14 Lipase/Protease/Amylase [Ira Rm 36,000 Units Capsule] 36,000 units PO TIDCM Amlodipine Besylate [Norvasc -] 5 mg PO DAILY #30 tablet 09/12/14 Review of Systems - Review of Systems Constitutional: reports: Lethargy, Weakness Eyes: reports: Blurred Vision Neck: reports: No Symptoms Cardiovascular: reports: Shortness of Breath Respiratory: reports: Exercise Intolerance, SOB on Exertion Gastrointestinal: reports: Bloating, Nausea Genitourinary: reports: No Symptoms Breasts: reports: No Symptoms Reported Musculoskeletal: reports: Joint Swelling, Muscle Pain, Muscle Cramps, Muscle Weakness Integumentary: reports: No Symptoms Neurological: reports: Weakness Endocrine: reports: Unexplained Weight Gain Physical Exam Vital Signs: Vital Signs Temperature 99.4 F 06/16/17 10:56 Pulse Rate 100 H 06/16/17 22:00 Respiratory Rate 14 06/16/17 22:00 Blood Pressure 129/52 06/16/17 22:00 O2 Sat by Pulse Oximetry (%) 100 06/16/17 11:00 Constitutional: Yes: Anxious Eyes: Yes: EOM Intact HENT: Yes: Normocephalic Neck: Yes: Trachea Midline Cardiovascular: Yes: Regular Rate and Rhythm Respiratory: Yes: CTA Bilaterally Gastrointestinal: Yes: Normal Bowel Sounds ...Rectal Exam: Yes: Deferred Renal/: Yes: WNL Musculoskeletal: Yes: Muscle Pain, Muscle Weakness Extremities: Yes: WNL Edema: No Peripheral Pulses WNL: Yes Neurological: Yes: Alert, Oriented Labs: CBC, BMP 06/16/17 20:00 Assessment/Plan Current Active Problems Bilateral pneumonia (Acute) DKA (diabetic ketoacidosis) (Acute) Diabetes mellitus, insulin dependent (IDDM), uncontrolled (Acute) Abnormal Lab Results 06/16/17 06/16/17 06/16/17 04:37 04:37 06:10 WBC 12.3 H D RBC 3.41 L Hgb 9.2 L Hct 30.4 L MCHC 30.3 L RDW 15.9 H D Plt Count 487 H MPV 7.2 L Neutrophils % 89.7 H D Lymphocytes % 5.2 L D Sodium 129 L Potassium 6.6 H* D 5.7 H Chloride 95 L D Carbon Dioxide 13 L D 12 L Anion Gap 21 H 22 H BUN 43 H D 47 H Creatinine 2.5 H D 2.4 H Random Glucose 762 H* D 609 H* D Hemoglobin A1c % Calcium Alkaline Phosphatase 144 H D Albumin 3.2 L D Urine Protein Urine Ketones Urine Blood Acetone, Qual Positive large 3+ H 06/16/17 06/16/17 06/16/17 09:08 10:15 14:35 WBC RBC Hgb Hct MCHC RDW Plt Count MPV Neutrophils % Lymphocytes % Sodium Potassium Chloride Carbon Dioxide 20 L D 20 L Anion Gap BUN 42 H 46 H Creatinine 2.1 H 2.2 H Random Glucose 245 H D 236 H Hemoglobin A1c % 8.6 H D Calcium Alkaline Phosphatase Albumin Urine Protein Urine Ketones Urine Blood Acetone, Qual 06/16/17 06/16/17 20:00 22:40 WBC RBC Hgb Hct MCHC RDW Plt Count MPV Neutrophils % Lymphocytes % Sodium Potassium Chloride Carbon Dioxide Anion Gap BUN 51 H Creatinine 2.2 H Random Glucose 255 H Hemoglobin A1c % Calcium 8.3 L Alkaline Phosphatase Albumin Urine Protein 1+ H D Urine Ketones Trace H Urine Blood 1+ H Acetone, Qual Laboratory Results - last 24 hr 06/16/17 06/16/17 06/16/17 04:37 04:37 04:37 WBC 12.3 H D RBC 3.41 L Hgb 9.2 L Hct 30.4 L MCV 89.1 MCH 27.0 MCHC 30.3 L RDW 15.9 H D Plt Count 487 H MPV 7.2 L Neutrophils % 89.7 H D Lymphocytes % 5.2 L D Monocytes % 4.8 Eosinophils % 0.1 D Basophils % 0.2 Sodium 129 L Potassium 6.6 H* D Chloride 95 L D Carbon Dioxide 13 L D Anion Gap 21 H BUN 43 H D Creatinine 2.5 H D Creat Clearance w eGFR 19.65 Random Glucose 762 H* D Hemoglobin A1c % Calcium 9.4 Total Bilirubin 0.5 D AST 18 ALT 14 D Alkaline Phosphatase 144 H D Creatine Kinase 125 Creatine Kinase Index CK-MB (CK-2) Troponin I < 0.02 Total Protein 6.7 Albumin 3.2 L D Triglycerides Cholesterol Total LDL Cholesterol HDL Cholesterol Urine Color Urine Appearance Urine pH Urine Protein Urine Glucose (UA) Urine Ketones Urine Blood Urine Nitrite Urine Bilirubin Urine Urobilinogen Acetone, Qual Positive large 3+ H 06/16/17 06/16/17 06/16/17 06:10 09:08 09:08 WBC RBC Hgb Hct MCV MCH MCHC RDW Plt Count MPV Neutrophils % Lymphocytes % Monocytes % Eosinophils % Basophils % Sodium 136 Potassium 5.7 H Chloride 102 Carbon Dioxide 12 L Anion Gap 22 H BUN 47 H Creatinine 2.4 H Creat Clearance w eGFR Random Glucose 609 H* D Hemoglobin A1c % Calcium 8.8 Total Bilirubin AST ALT Alkaline Phosphatase Creatine Kinase 157 Cancelled Creatine Kinase Index 2.1 CK-MB (CK-2) 3.382 Troponin I < 0.02 Cancelled Total Protein Albumin Triglycerides 117 Cancelled Cholesterol 122 D Cancelled Total LDL Cholesterol 62 Cancelled HDL Cholesterol 40 D Cancelled Urine Color Urine Appearance Urine pH Urine Protein Urine Glucose (UA) Urine Ketones Urine Blood Urine Nitrite Urine Bilirubin Urine Urobilinogen Acetone, Qual 06/16/17 06/16/17 06/16/17 09:08 10:15 14:35 WBC RBC Hgb Hct MCV MCH MCHC RDW Plt Count MPV Neutrophils % Lymphocytes % Monocytes % Eosinophils % Basophils % Sodium 141 140 Potassium 4.4 D 4.9 Chloride 107 107 Carbon Dioxide 20 L D 20 L Anion Gap 14 13 BUN 42 H 46 H Creatinine 2.1 H 2.2 H Creat Clearance w eGFR Random Glucose 245 H D 236 H Hemoglobin A1c % 8.6 H D Calcium 8.6 8.6 Total Bilirubin AST ALT Alkaline Phosphatase Creatine Kinase Creatine Kinase Index CK-MB (CK-2) Troponin I Total Protein Albumin Triglycerides Cholesterol Total LDL Cholesterol HDL Cholesterol Urine Color Urine Appearance Urine pH Urine Protein Urine Glucose (UA) Urine Ketones Urine Blood Urine Nitrite Urine Bilirubin Urine Urobilinogen Acetone, Qual 06/16/17 06/16/17 20:00 22:40 WBC RBC Hgb Hct MCV MCH MCHC RDW Plt Count MPV Neutrophils % Lymphocytes % Monocytes % Eosinophils % Basophils % Sodium 138 Potassium 4.5 Chloride 107 Carbon Dioxide 21 Anion Gap 10 BUN 51 H Creatinine 2.2 H Creat Clearance w eGFR Random Glucose 255 H Hemoglobin A1c % Calcium 8.3 L Total Bilirubin AST ALT Alkaline Phosphatase Creatine Kinase Creatine Kinase Index CK-MB (CK-2) Troponin I Total Protein Albumin Triglycerides Cholesterol Total LDL Cholesterol HDL Cholesterol Urine Color Ltyellow Urine Appearance Slcloudy Urine pH 5.0 D Urine Protein 1+ H D Urine Glucose (UA) Negative Urine Ketones Trace H Urine Blood 1+ H Urine Nitrite Negative Urine Bilirubin Negative Urine Urobilinogen Negative Acetone, Qual dehydration /dka hyperglycemia plan: insulin dripq 1 hr coverage with drip below 60 bgm dc drip start levemir 20 units am/ levemir 20 units pm as ag improved
[2017-06-16 22:49] LABS: URINE BACTERIA RARE /hpf (NONE SEEN); URINE HYALINE CAST 3 /lpf; URINE RBC 3 /hpf (0-3); URINE WBC 22 /hpf (3-5)
[2017-06-17] MEDS: ALBUTEROL SO4 2.5/IPRATROPIUM 0.5 INH SOL 3 ML VIAL.NEB. NEB PRN (00:12)
[2017-06-17] MEDS ORDERED: HEMOQUE CONTROL SOLUTION ONE (00:38)
[2017-06-17] MEDS: HEPARIN NA (PORCINE) 5,000 UNITS/ML 1ML VIAL SQ SCH ×3 (06:04→21:14)
[2017-06-17] MEDS: INSULIN DETEMIR 100 UNITS/ML MDV SQ SCH ×2 (06:05→17:23)
[2017-06-17] MEDS: INSULIN SLIDING SCALE (NOVOLOG) 1 VIAL SQ SCH ×7 (06:05→21:14)
[2017-06-17 06:13] LABS: MCH 27.6 pg (25.7-33.7); MCHC 32.5 g/dl (32.0-36.0); MEAN CELL VOLUME 85.1 fl (80-96); MEAN PLT VOLUME 6.9 fl (7.5-11.1); PLATELET COUNT 409 K/MM3 (134-434); RDW 15.7 % (11.6-15.6); WHITE BLOOD COUNT 13.3 K/mm3 (4.0-10.0)
[2017-06-17 06:40] LABS: ALBUMIN 2.5 g/dl (3.4-5.0); ALK PHOS 110 U/L (45-117); ANION GAP 12 (8-16); BILIRUBIN,TOTAL 0.3 mg/dL (0.2-1.0); CO2 19 mmol/L (21-32); CREATININE 1.9 mg/dL (0.55-1.02); GLUCOSE,RANDOM 120 mg/dL (74-106); MAGNESIUM 1.8 mg/dL (1.8-2.4); PHOSPHOROUS 3.2 mg/dL (2.5-4.9); SGOT/AST 18 U/L (15-37); SGPT/ALT 13 U/L (12-78); TOT PROT 5.5 g/dl (6.4-8.2)
--- NOTE | 2017-06-17 08:11 | PN ---
Physical Exam: 24H Events: yesterday - insulin gtt d/c O/N - no acute events AM - new onset Afib with rates in 150's, BP 160's/100 --> gave 5mg Lopressor, 5mg Diltiazem IVPUSH with no effect; started diltiazem drip and converted to back to NSR SUBJECTIVE: Patient seen and examined in ICU. Poor sleep overnight. Continues to have SOB and dry cough. No chest pain or palpitations during Afib episode. Denies fever and chills. OBJECTIVE: Vital Signs Period Temp Pulse Resp BP Sys/Mcdaniel Pulse Ox Last 24 Hr 97.8 F-98.7 F 90-190 13-21 114-164/52-101 96 Intake & Output 06/14/17 06/15/17 06/16/17 06/17/17 23:59 23:59 23:59 23:59 Intake Total 2930 3803 Output Total 1350 600 Balance 1580 3203 Weight 84.9 kg 88.9 GENERAL: aaox3, nad EYES: sclera anicteric, conjunctiva clear ENT: oropharynx clear without exudates, moist mucous membranes NECK: supple, no cervical LAD LUNGS: CTAB, no wheezing or rhonchi HEART: rrr, normal S1/S2 without murmur, rub or gallop. ABDOMEN: Soft, ntnd UPPER EXTREMITIES: 2+ pulses, wwp, no edema LOWER EXTREMITIES: 2+ pulses, wwp, 1+ trace edema CBC, BMP 06/17/17 05:00 06/17/17 05:00 Ca - 8 Phos - 3.2 Mg - 1.8 Hepatic Panel Total Bilirubin 0.3 mg/dL (0.2-1.0) D 06/17/17 05:00 AST 18 U/L (15-37) 06/17/17 05:00 ALT 13 U/L (12-78) 06/17/17 05:00 Alkaline Phosphatase 110 U/L (45-117) D 06/17/17 05:00 Albumin 2.5 g/dl (3.4-5.0) L D 06/17/17 05:00 Microbiology 06/16/17 06:10 Blood - Peripheral Venous Blood Culture - Preliminary NO GROWTH OBTAINED AFTER 24 HOURS, INCUBATION TO CONTINUE FOR 4 DAYS. 06/16/17 06:10 Blood - Peripheral Venous Blood Culture - Preliminary NO GROWTH OBTAINED AFTER 24 HOURS, INCUBATION TO CONTINUE FOR 4 DAYS. Imaging: CXR 06/16/2017: "since prior study of 09/08/2014, the mid-right lung mass (also seen 09/09/2014) has increased in size. Now approximately 4.5 x 3.0cm. Heart is not enlarged. Aortic and hilar contours are unremarkable." CXR 06/17/2017: patient rotated, no significant change from yesterday Active Medications Acetaminophen (Tylenol -) 650 mg PO Q6H PRN PRN Reason: FEVER OR PAIN Last Admin: 06/16/17 14:53 Dose: 650 mg Albuterol/Ipratropium (Duoneb -) 1 amp NEB Q6H PRN PRN Reason: SHORTNESS OF BREATH Last Admin: 06/17/17 00:12 Dose: 1 amp Amlodipine Besylate (Norvasc -) 5 mg PO DAILY [facility] Last Admin: 06/16/17 12:13 Dose: 5 mg Atorvastatin Calcium (Lipitor -) 10 mg PO HS [facility] Last Admin: 06/16/17 21:17 Dose: 10 mg Heparin Sodium (Porcine) (Heparin -) 5,000 unit SQ TID [facility] Last Admin: 06/17/17 06:04 Dose: 5,000 unit Sodium Chloride (Normal Saline -) 1,000 mls @ 200 mls/hr IV ASDIR [facility] Last Admin: 06/16/17 12:11 Dose: 200 mls/hr Ceftriaxone Sodium (Rocephin 2gm Ivpb (Pre-Docked)) 100 mls @ 200 mls/hr IVPB DAILY [facility] Azithromycin 500 mg/ Sodium (Chloride) 250 mls @ 250 mls/hr IVPB DAILY [facility] Insulin Aspart (Novolog) 6 units SQ NOW ONE Stop: 06/17/17 19:07 Insulin Aspart (Novolog Vial Sliding Scale -) 1 vial SQ Q2H [facility] PRN Reason: Protocol Last Admin: 06/17/17 06:05 Dose: Not Given Insulin Detemir (Levemir Vial) 20 units SQ BIDI [facility] Last Admin: 06/17/17 06:05 Dose: 20 units Pantoprazole Sodium (Protonix -) 40 mg PO DAILY [facility] Last Admin: 06/16/17 19:51 Dose: 40 mg ASSESSMENT/PLAN: 62yo woman who is a current smoker with HTN, IDDM, CKD, colon Ca s/p resection who presented with DKA and acute on chronic renal failure in the setting of malfunctioning insulin pump. DKA now resolved with anion gap closed. Patient started on empiric antibiotics for CAP/atypical coverage vs post-obstructive PNA. New onset Afib this morning with rate and rhythm control achieved with diltiazem drip. ECHO ordered, and would consider starting AC as patient's chadvasc score is 3 (female, HTN, DM). #new onset rapid Afib -start diltiazem 30mg PO q6h --> titrate off gtt -consider AC (CHADVASC score 3) -ECHO ordered, interpretation pending -Diuresed with lasix 40mg IV #HTN -d/c amlodipine while on diltiazem #HLD -Continue home lipitor #IDDM DKA, resolved -Endocrine consulted -BGM q4h -Levemir 20U BID + ISS #possible CAP vs post-obstructive PNA -ID consulted -Continue empiric abx per ID (Azithromycin + Ceftriaxone) -f/u Legionella Ag -f/u Quant gold -f/u cultures -duo nebs prn #lung mass CXR suggests increase in size, first noted in 2014 (1.8cm nodule on CT imaging, PET neg, never biopsied) -non-con Chest CT #acute on CKD (baseline Cr unknown) -Nephrology consulted -f/u Renal U/S -f/u UA -monitor urine output, creatinine #FEN -IVF held (pt net +) -lytes wnl -Diabetic/Na controlled diet #PPX -DVT - Heparin 5000U SQ TID -GI - pantoprazole 40mg PO qd Dispo: Continue ICU monitoring FULL code d/w Dr. Karsten Castle MD [id number] Visit type - Emergency Visit Emergency Visit: No - New Patient This patient is new to me today: No - Critical Care Critical Care patient: Yes Total Critical Care Time (in minutes): 35 Critical Care Statement: The care of this patient involved high complexity decision making to prevent further life threatening deterioration of the patient 's condition and/or to evaluate & treat vital organ system(s) failure or risk of failure.
[2017-06-17] MEDS ORDERED: METOPROLOL TARTRATE 5 MG/5 ML VIAL IVPUSH ONE (08:51)
[2017-06-17] MEDS ORDERED: dilTIAZem HCL 50 MG/10 ML - 10 ML VIAL IVPUSH ONE (08:58)
[2017-06-17] MEDS ORDERED: DILTIAZEM INJECTION 125 MG in DEXTROSE 5%-WATER - 100 ML IVPB SCH (09:00)
[2017-06-17] MEDS ORDERED: dilTIAZem HCL 125 MG/25 ML - 25 ML VIAL ONE (09:00)
[2017-06-17] MEDS ORDERED: dilTIAZem HCL 125 MG/25 ML - 5 ML VIAL ONE (09:01)
[2017-06-17] MEDS ORDERED: FUROSEMIDE 40 MG/4 ML INJECTABLE VIAL IVPUSH ONE (09:15)
[2017-06-17] MEDS ORDERED: PT OWN MED DRAWER 7, Y5N ONE (09:47)
[2017-06-17] MEDS: PANTOPRAZOLE 40 MG TABLET (FP) PO SCH (09:49)
[2017-06-17] MEDS: amLODIPine BESYLATE 5 MG TABLET (FP) PO SCH (09:49)
[2017-06-17] MEDS ORDERED: CEFTRIAXONE 100 ML IVPB SCH (10:00)
[2017-06-17 11:01] LABS: URINE LEUK ESTERASE TRACE (NEGATIVE)
--- NOTE | 2017-06-17 12:12 | PN ---
Teaching Attending Note Name of Resident: Hiwot Castle ATTENDING PHYSICIAN STATEMENT I saw and evaluated the patient. I reviewed the resident's note and discussed the case with the resident. I agree with the resident's findings and plan as documented. SUBJECTIVE: Pt seen and examined in the ICU. Episode of rapid afib this AM, started on cardizem gtt, converted to sinus. Off insulin gtt. OBJECTIVE: Last Vital Signs Temp Pulse Resp BP Pulse Ox 97.8 F 103 H 20 114/82 96 06/17/17 10:00 06/17/17 10:00 06/17/17 10:00 06/17/17 10:00 06/17/17 10:00 Intake & Output 06/14/17 06/15/17 06/16/17 06/17/17 23:59 23:59 23:59 23:59 Intake Total 2930 3803 Output Total 1350 1300 Balance 1580 2503 Weight 187 lb 2.759 oz Gen: mildly tachypneic at rest Heart: tachycardic, regular Lung: scattered rhonchi Abd: soft, nontender Ext: + edema CBC, BMP 06/17/17 05:00 06/17/17 05:00 Active Medications Acetaminophen (Tylenol -) 650 mg PO Q6H PRN PRN Reason: FEVER OR PAIN Last Admin: 06/16/17 14:53 Dose: 650 mg Albuterol/Ipratropium (Duoneb -) 1 amp NEB Q6H PRN PRN Reason: SHORTNESS OF BREATH Last Admin: 06/17/17 00:12 Dose: 1 amp Amlodipine Besylate (Norvasc -) 5 mg PO DAILY [facility] Last Admin: 06/17/17 09:49 Dose: 5 mg Atorvastatin Calcium (Lipitor -) 10 mg PO HS [facility] Last Admin: 06/16/17 21:17 Dose: 10 mg Diltiazem HCl (Cardizem -) 30 mg PO Q6H [facility] Heparin Sodium (Porcine) (Heparin -) 5,000 unit SQ TID [facility] Last Admin: 06/17/17 06:04 Dose: 5,000 unit Ceftriaxone Sodium (Rocephin 2gm Ivpb (Pre-Docked)) 100 mls @ 200 mls/hr IVPB DAILY [facility] Last Admin: 06/17/17 09:49 Dose: 200 mls/hr Azithromycin 500 mg/ Sodium (Chloride) 250 mls @ 250 mls/hr IVPB DAILY [facility] Last Admin: 06/17/17 09:49 Dose: 250 mls/hr Insulin Aspart (Novolog) 6 units SQ NOW ONE Stop: 06/17/17 19:07 Insulin Aspart (Novolog Vial Sliding Scale -) 1 vial SQ Q2H [facility] PRN Reason: Protocol Last Admin: 06/17/17 11:43 Dose: Not Given Insulin Detemir (Levemir Vial) 20 units SQ BIDI [facility] Last Admin: 06/17/17 06:05 Dose: 20 units Pantoprazole Sodium (Protonix -) 40 mg PO DAILY [facility] Last Admin: 06/17/17 09:49 Dose: 40 mg ASSESSMENT AND PLAN: Diabetic Ketoacidosis improving New Onset Atrial Fibrillation Acute on Chronic Renal Failure HTN Lung Mass r/o Pneumonia Smoker - continue antibiotics - monitor urine output, creatinine - monitor BGM, BMP - glucose control - start PO cardizem, titrate off gtt - echocardiogram - consider cardiology evaluation - CT chest noncontrast - DVT prophylaxis - continue ICU monitoring critical care time spent in reviewing chart, evaluating patient and formulating plan 35 min
[2017-06-17] MEDS: dilTIAZem HCL 30 MG TABLET (FP) PO SCH ×2 (12:34→17:23)
--- NOTE | 2017-06-17 12:47 | PN ---
Progress Note, Physician - Current Medication List Current Medications: Active Medications Acetaminophen (Tylenol -) 650 mg PO Q6H PRN PRN Reason: FEVER OR PAIN Last Admin: 06/16/17 14:53 Dose: 650 mg Albuterol/Ipratropium (Duoneb -) 1 amp NEB Q6H PRN PRN Reason: SHORTNESS OF BREATH Last Admin: 06/17/17 00:12 Dose: 1 amp Amlodipine Besylate (Norvasc -) 5 mg PO DAILY [facility] Last Admin: 06/17/17 09:49 Dose: 5 mg Atorvastatin Calcium (Lipitor -) 10 mg PO HS [facility] Last Admin: 06/16/17 21:17 Dose: 10 mg Diltiazem HCl (Cardizem -) 30 mg PO Q6HPO [facility] Last Admin: 06/17/17 12:34 Dose: 30 mg Heparin Sodium (Porcine) (Heparin -) 5,000 unit SQ TID [facility] Last Admin: 06/17/17 06:04 Dose: 5,000 unit Ceftriaxone Sodium (Rocephin 2gm Ivpb (Pre-Docked)) 100 mls @ 200 mls/hr IVPB DAILY [facility] Last Admin: 06/17/17 09:49 Dose: 200 mls/hr Azithromycin 500 mg/ Sodium (Chloride) 250 mls @ 250 mls/hr IVPB DAILY [facility] Last Admin: 06/17/17 09:49 Dose: 250 mls/hr Insulin Aspart (Novolog) 6 units SQ NOW ONE Stop: 06/17/17 19:07 Insulin Aspart (Novolog Vial Sliding Scale -) 1 vial SQ Q2H [facility] PRN Reason: Protocol Last Admin: 06/17/17 11:43 Dose: Not Given Insulin Detemir (Levemir Vial) 20 units SQ BIDI [facility] Last Admin: 06/17/17 06:05 Dose: 20 units Pantoprazole Sodium (Protonix -) 40 mg PO DAILY [facility] Last Admin: 06/17/17 09:49 Dose: 40 mg - Objective Vital Signs: Vital Signs Temperature 97.8 F 06/17/17 10:00 Pulse Rate 103 H 06/17/17 10:00 Respiratory Rate 20 06/17/17 10:00 Blood Pressure 114/82 06/17/17 10:00 O2 Sat by Pulse Oximetry (%) 96 06/17/17 10:00 Labs: CBC, BMP 06/17/17 05:00 06/17/17 05:00
--- NOTE | 2017-06-17 13:20 | PN ---
Progress Note, Physician Chief Complaint: ID New onset of atrial fibrillation Ceftriaxone day 2 Azithro - Current Medication List Current Medications: Active Medications Acetaminophen (Tylenol -) 650 mg PO Q6H PRN PRN Reason: FEVER OR PAIN Last Admin: 06/16/17 14:53 Dose: 650 mg Albuterol/Ipratropium (Duoneb -) 1 amp NEB Q6H PRN PRN Reason: SHORTNESS OF BREATH Last Admin: 06/17/17 00:12 Dose: 1 amp Atorvastatin Calcium (Lipitor -) 10 mg PO HS [facility] Last Admin: 06/16/17 21:17 Dose: 10 mg Diltiazem HCl (Cardizem -) 30 mg PO Q6HPO [facility] Last Admin: 06/17/17 12:34 Dose: 30 mg Heparin Sodium (Porcine) (Heparin -) 5,000 unit SQ TID [facility] Last Admin: 06/17/17 06:04 Dose: 5,000 unit Ceftriaxone Sodium (Rocephin 2gm Ivpb (Pre-Docked)) 100 mls @ 200 mls/hr IVPB DAILY [facility] Last Admin: 06/17/17 09:49 Dose: 200 mls/hr Azithromycin 500 mg/ Sodium (Chloride) 250 mls @ 250 mls/hr IVPB DAILY [facility] Last Admin: 06/17/17 09:49 Dose: 250 mls/hr Insulin Aspart (Novolog) 6 units SQ NOW ONE Stop: 06/17/17 19:07 Insulin Aspart (Novolog Vial Sliding Scale -) 1 vial SQ Q2H [facility] PRN Reason: Protocol Last Admin: 06/17/17 11:43 Dose: Not Given Insulin Detemir (Levemir Vial) 20 units SQ BIDI [facility] Last Admin: 06/17/17 06:05 Dose: 20 units Pantoprazole Sodium (Protonix -) 40 mg PO DAILY [facility] Last Admin: 06/17/17 09:49 Dose: 40 mg - Objective Vital Signs: Vital Signs Temperature 97.8 F 06/17/17 10:00 Pulse Rate 103 H 06/17/17 10:00 Respiratory Rate 20 06/17/17 10:00 Blood Pressure 114/82 06/17/17 10:00 O2 Sat by Pulse Oximetry (%) 96 06/17/17 10:00 Labs: CBC, BMP 06/17/17 05:00 06/17/17 05:00 Assessment/Plan Microbiology 06/16/17 06:10 Blood - Peripheral Venous Blood Culture - Preliminary NO GROWTH OBTAINED AFTER 24 HOURS, INCUBATION TO CONTINUE FOR 4 DAYS. 06/16/17 06:10 Blood - Peripheral Venous Blood Culture - Preliminary NO GROWTH OBTAINED AFTER 24 HOURS, INCUBATION TO CONTINUE FOR 4 DAYS. Laboratory Tests 06/16/17 06/17/17 06/17/17 22:40 05:00 05:00 WBC 13.3 H Hgb 8.4 L Hct 25.8 L D Plt Count 409 BUN 40 H D Creatinine 1.9 H Creat Clearance w eGFR 26.96 Urine RBC 3 Urine WBC 22 Assessment New onset A fib ? Lung mass infiltrate right lung DKA Plan Continue empiric antibiotic with Ceftriaxone and Azithromycin
[2017-06-17] MEDS ORDERED: INSULIN (NOVOLOG) ASPART 100 UNITS/ML 10ML VIAL ONE (13:50)
--- NOTE | 2017-06-17 15:18 | PN ---
Progress Note, Physician Chief Complaint: awake alert feeling better - Current Medication List Current Medications: Active Medications Acetaminophen (Tylenol -) 650 mg PO Q6H PRN PRN Reason: FEVER OR PAIN Last Admin: 06/16/17 14:53 Dose: 650 mg Albuterol/Ipratropium (Duoneb -) 1 amp NEB Q6H PRN PRN Reason: SHORTNESS OF BREATH Last Admin: 06/17/17 00:12 Dose: 1 amp Atorvastatin Calcium (Lipitor -) 10 mg PO HS [facility] Last Admin: 06/16/17 21:17 Dose: 10 mg Diltiazem HCl (Cardizem -) 30 mg PO Q6HPO [facility] Last Admin: 06/17/17 12:34 Dose: 30 mg Heparin Sodium (Porcine) (Heparin -) 5,000 unit SQ TID [facility] Last Admin: 06/17/17 13:52 Dose: 5,000 unit Ceftriaxone Sodium (Rocephin 2gm Ivpb (Pre-Docked)) 100 mls @ 200 mls/hr IVPB DAILY [facility] Last Admin: 06/17/17 09:49 Dose: 200 mls/hr Azithromycin 500 mg/ Sodium (Chloride) 250 mls @ 250 mls/hr IVPB DAILY [facility] Last Admin: 06/17/17 09:49 Dose: 250 mls/hr Insulin Aspart (Novolog) 6 units SQ NOW ONE Stop: 06/17/17 19:07 Insulin Aspart (Novolog Vial Sliding Scale -) 1 vial SQ Q2H [facility] PRN Reason: Protocol Last Admin: 06/17/17 13:52 Dose: 4 units Insulin Detemir (Levemir Vial) 20 units SQ BIDI [facility] Last Admin: 06/17/17 06:05 Dose: 20 units Pantoprazole Sodium (Protonix -) 40 mg PO DAILY [facility] Last Admin: 06/17/17 09:49 Dose: 40 mg - Objective Vital Signs: Vital Signs Temperature 97.8 F 06/17/17 10:00 Pulse Rate 103 H 06/17/17 10:00 Respiratory Rate 20 06/17/17 10:00 Blood Pressure 114/82 06/17/17 10:00 O2 Sat by Pulse Oximetry (%) 96 06/17/17 10:00 Constitutional: Yes: Mild Distress Eyes: Yes: WNL HENT: Yes: WNL Neck: Yes: WNL Cardiovascular: Yes: WNL Respiratory: Yes: WNL Gastrointestinal: Yes: WNL Genitourinary: Yes: WNL Musculoskeletal: Yes: WNL Extremities: Yes: WNL Edema: No Peripheral Pulses WNL: Yes Integumentary: Yes: WNL Wound/Incision: Yes: Clean/Dry Neurological: Yes: WNL ...Motor Strength: WNL Psychiatric: Yes: WNL Labs: CBC, BMP 06/17/17 05:00 06/17/17 05:00 Assessment/Plan ACUTE HYPEROSMOLAR STATE BGM Q 4HRS RENAL EVAL DR FERRAAR ENDOCRINE DR BROOKS IVF IV INSULIN LEVEMIR 20UNITS BID INSULIN PUMP MALFUNCTION WILL NEED TO HAVE IT REASSESSED. LEUKOCYTOSIS ID CONSULT MONITOR IN ICU LUNG MASS FOLLOW UP CTS
--- NOTE | 2017-06-17 15:59 | PN ---
Progress Note, Physician History of Present Illness: Pt seen and examined at bedside. She is awake and alert. - Current Medication List Current Medications: Active Medications Acetaminophen (Tylenol -) 650 mg PO Q6H PRN PRN Reason: FEVER OR PAIN Last Admin: 06/16/17 14:53 Dose: 650 mg Albuterol/Ipratropium (Duoneb -) 1 amp NEB Q6H PRN PRN Reason: SHORTNESS OF BREATH Last Admin: 06/17/17 00:12 Dose: 1 amp Atorvastatin Calcium (Lipitor -) 10 mg PO HS [facility] Last Admin: 06/16/17 21:17 Dose: 10 mg Diltiazem HCl (Cardizem -) 30 mg PO Q6HPO [facility] Last Admin: 06/17/17 12:34 Dose: 30 mg Heparin Sodium (Porcine) (Heparin -) 5,000 unit SQ TID [facility] Last Admin: 06/17/17 13:52 Dose: 5,000 unit Ceftriaxone Sodium (Rocephin 2gm Ivpb (Pre-Docked)) 100 mls @ 200 mls/hr IVPB DAILY [facility] Last Admin: 06/17/17 09:49 Dose: 200 mls/hr Azithromycin 500 mg/ Sodium (Chloride) 250 mls @ 250 mls/hr IVPB DAILY [facility] Last Admin: 06/17/17 09:49 Dose: 250 mls/hr Insulin Aspart (Novolog) 6 units SQ NOW ONE Stop: 06/17/17 19:07 Insulin Aspart (Novolog Vial Sliding Scale -) 1 vial SQ Q2H [facility] PRN Reason: Protocol Last Admin: 06/17/17 15:44 Dose: Not Given Insulin Detemir (Levemir Vial) 20 units SQ BIDI [facility] Last Admin: 06/17/17 06:05 Dose: 20 units Pantoprazole Sodium (Protonix -) 40 mg PO DAILY [facility] Last Admin: 06/17/17 09:49 Dose: 40 mg - Objective Vital Signs: Vital Signs Temperature 98.0 F 06/17/17 14:00 Pulse Rate 93 H 06/17/17 14:00 Respiratory Rate 21 06/17/17 14:00 Blood Pressure 158/74 06/17/17 14:00 O2 Sat by Pulse Oximetry (%) 96 06/17/17 10:00 Constitutional: Yes: Calm Eyes: Yes: Conjunctiva Clear HENT: Yes: Atraumatic Cardiovascular: Yes: S1, S2 Respiratory: Yes: CTA Bilaterally Gastrointestinal: Yes: Normal Bowel Sounds, Soft Genitourinary: Yes: WNL Musculoskeletal: Yes: WNL Edema: No Peripheral Pulses WNL: No Neurological: Yes: Oriented Psychiatric: Yes: Oriented Labs: CBC, BMP 06/17/17 05:00 06/17/17 05:00 Assessment/Plan Current Medications Generic Name Dose Route Start Last Admin Trade Name Freq PRN Reason Stop Dose Admin Acetaminophen 650 mg 06/16/17 07:27 06/16/17 14:53 Tylenol - PO 650 mg Q6H PRN Administration FEVER OR PAIN Albuterol/Ipratropium 1 amp 06/16/17 16:26 06/17/17 00:12 Duoneb - NEB 1 amp Q6H PRN Administration SHORTNESS OF BREATH Atorvastatin Calcium 10 mg 06/16/17 22:00 06/16/17 21:17 Lipitor - PO 10 mg HS [facility] Administration Diltiazem HCl 30 mg 06/17/17 12:30 06/17/17 12:34 Cardizem - PO 30 mg Q6HPO [facility] Administration Heparin Sodium (Porcine) 5,000 unit 06/16/17 14:00 06/17/17 13:52 Heparin - SQ 5,000 unit TID [facility] Administration Ceftriaxone Sodium 100 mls @ 200 mls/hr 06/17/17 10:00 06/17/17 09:49 Rocephin 2gm Ivpb (Pre-Docked) IVPB 200 mls/hr DAILY [facility] Administration Azithromycin 500 mg/ Sodium 250 mls @ 250 mls/hr 06/16/17 19:14 06/17/17 09:49 Chloride IVPB 250 mls/hr DAILY [facility] Administration Insulin Aspart 6 units 06/17/17 19:06 Novolog SQ 06/17/17 19:07 NOW ONE Insulin Aspart 1 vial 06/16/17 20:00 06/17/17 15:44 Novolog Vial Sliding Scale - SQ Not Given Q2H [facility] Protocol Insulin Detemir 20 units 06/16/17 22:56 06/17/17 06:05 Levemir Vial SQ 20 units BIDI [facility] Administration Pantoprazole Sodium 40 mg 06/16/17 19:00 06/17/17 09:49 Protonix - PO 40 mg DAILY [facility] Administration Impression 1. CKD with acute component 2. hyperkalemia 3. DKA 4. htn 5. chol Plan - renal function is improving - repeat labs in am - cont fluids - monitor potassium
[2017-06-17] MEDS ORDERED: Insulin (LOG) Aspart 100 UNITS/ML VIAL SQ ONE (19:06)
[2017-06-17] MEDS ORDERED: LORazepam 1 MG TABLET PO ONE (21:08)
[2017-06-17] MEDS: ATORVASTATIN CA 10 MG TABLET (FP) PO SCH (21:15)
--- NOTE | 2017-06-17 22:06 | EKG ---
Test Reason : Blood Pressure : / mmHG Vent. Rate : 149 BPM Atrial Rate : 340 BPM P-R Int : 000 ms QRS Dur : 078 ms QT Int : 306 ms P-R-T Axes : 000 045 189 degrees QTc Int : 481 ms ATRIAL FLUTTER WITH VARYING AV CONDUCTION ST depression, consider subendocardial injury NONSPECIFIC T WAVE ABNORMALITY ABNORMAL ECG WHEN COMPARED WITH ECG OF 16-JUN-2017 05:14, ATRIAL FLUTTER IS NOW PRESENT PREVIIOUS TRACING MAY LEAD MISPLACEMENT ST MORE DEPRESSED ANTERIOR LEADS NONSPECIFIC T WAVE ABNORMALITY NOW EVIDENT IN INFERIOR LEADS NONSPECIFIC T WAVE ABNORMALITY NOW EVIDENT IN LATERAL LEADS WOULD RECOMMEND FOLLOW EKG Confirmed by DEWAYNE HICKS MD ([id number]) on 06/17/2017 10:05:52 PM Referred By: Confirmed By:DEWAYNE HICKS MD
[2017-06-18] MEDS: dilTIAZem HCL 30 MG TABLET (FP) PO SCH ×5 (00:13→23:59)
[2017-06-18] MEDS: INSULIN SLIDING SCALE (NOVOLOG) 1 VIAL SQ SCH ×6 (01:20→21:38)
[2017-06-18] MEDS: HEPARIN NA (PORCINE) 5,000 UNITS/ML 1ML VIAL SQ SCH ×3 (05:48→21:40)
[2017-06-18 06:13] LABS: EOSINOPHIL 1.7 % (0-4.5); MCH 27.4 pg (25.7-33.7); MCHC 32.5 g/dl (32.0-36.0); MEAN CELL VOLUME 84.2 fl (80-96); MEAN PLT VOLUME 6.9 fl (7.5-11.1); NEUTROPHILS 67.4 % (42.8-82.8); PLATELET COUNT 401 K/MM3 (134-434); RDW 15.8 % (11.6-15.6); WHITE BLOOD COUNT 10.5 K/mm3 (4.0-10.0)
[2017-06-18] MEDS: INSULIN DETEMIR 100 UNITS/ML MDV SQ SCH ×2 (06:37→17:27)
[2017-06-18] MEDS ORDERED: INSULIN DETEMIR 100 UNITS/ML MDV SQ ONE (06:40)
--- NOTE | 2017-06-18 07:01 | PN ---
Progress Note, Physician Chief Complaint: ID She feels well NO couph No fever Still on Ceftriaxone Azithromycin CT finding of expanding neoplasm in the right lung ! - Current Medication List Current Medications: Active Medications Acetaminophen (Tylenol -) 650 mg PO Q6H PRN PRN Reason: FEVER OR PAIN Last Admin: 06/16/17 14:53 Dose: 650 mg Albuterol/Ipratropium (Duoneb -) 1 amp NEB Q6H PRN PRN Reason: SHORTNESS OF BREATH Last Admin: 06/17/17 00:12 Dose: 1 amp Atorvastatin Calcium (Lipitor -) 10 mg PO HS [facility] Last Admin: 06/17/17 21:15 Dose: 10 mg Diltiazem HCl (Cardizem -) 30 mg PO Q6HPO [facility] Last Admin: 06/18/17 05:48 Dose: 30 mg Heparin Sodium (Porcine) (Heparin -) 5,000 unit SQ TID [facility] Last Admin: 06/18/17 05:48 Dose: 5,000 unit Ceftriaxone Sodium (Rocephin 2gm Ivpb (Pre-Docked)) 100 mls @ 200 mls/hr IVPB DAILY [facility] Last Admin: 06/17/17 09:49 Dose: 200 mls/hr Azithromycin 500 mg/ Sodium (Chloride) 250 mls @ 250 mls/hr IVPB DAILY [facility] Last Admin: 06/17/17 09:49 Dose: 250 mls/hr Insulin Aspart (Novolog Vial Sliding Scale -) 1 vial SQ Q4H [facility] PRN Reason: Protocol Last Admin: 06/18/17 05:47 Dose: Not Given Insulin Detemir (Levemir Vial) 20 units SQ BIDI [facility] Last Admin: 06/18/17 06:37 Dose: 20 units Pantoprazole Sodium (Protonix -) 40 mg PO DAILY [facility] Last Admin: 06/17/17 09:49 Dose: 40 mg - Objective Vital Signs: Vital Signs Temperature 98.4 F 06/18/17 05:45 Pulse Rate 90 06/18/17 05:45 Respiratory Rate 18 06/18/17 05:45 Blood Pressure 172/89 06/18/17 05:45 O2 Sat by Pulse Oximetry (%) 96 06/18/17 00:00 Constitutional: Yes: Well Nourished, No Distress HENT: Yes: WNL, Atraumatic Neck: Yes: WNL, Supple Cardiovascular: Yes: S1, S2 Respiratory: Yes: WNL, Regular, CTA Bilaterally. No: Rales, Rhonchi Gastrointestinal: Yes: WNL, Normal Bowel Sounds, Soft. No: Tenderness Extremities: No: Cold, Cool, Cyanosis Edema: No Labs: CBC, BMP 06/18/17 05:00 Assessment/Plan Microbiology 06/16/17 06:10 Blood - Peripheral Venous Blood Culture - Preliminary NO GROWTH OBTAINED AFTER 48 HOURS, INCUBATION TO CONTINUE FOR 3 DAYS. 06/16/17 06:10 Blood - Peripheral Venous Blood Culture - Preliminary NO GROWTH OBTAINED AFTER 48 HOURS, INCUBATION TO CONTINUE FOR 3 DAYS. Laboratory Tests 06/17/17 06/18/17 05:00 05:00 WBC 10.5 H Hgb 9.0 L Hct 27.5 L Plt Count 401 BUN 40 H D Creatinine 1.9 H Creat Clearance w eGFR 26.96 Assessment DKA reason for admission Lung neoplasm on CT not new but growing in size NO pneumonia Plan See no indication for antibiotics at this time so will discontinue and sign off Sergo HIGUERA
[2017-06-18 07:05] LABS: ALBUMIN 2.6 g/dl (3.4-5.0); ALK PHOS 111 U/L (45-117); ANION GAP 11 (8-16); BILIRUBIN,TOTAL 0.4 mg/dL (0.2-1.0); CALCIUM 8.5 mg/dL (8.5-10.1); CO2 24 mmol/L (21-32); CREATININE 1.4 mg/dL (0.55-1.02); GLUCOSE,RANDOM 93 mg/dL (74-106); MAGNESIUM 1.7 mg/dL (1.8-2.4); PHOSPHOROUS 2.9 mg/dL (2.5-4.9); SGOT/AST 16 U/L (15-37); SGPT/ALT 14 U/L (12-78); TOT PROT 5.9 g/dl (6.4-8.2)
--- NOTE | 2017-06-18 08:22 | PN ---
Physical Exam: 24H Events: yesterday - new onset rapid Afib, started diltiazem PO - ECHO completed, pending interpretation - chest CT - 4.0 x 3.8 cm R lower lobe neoplasm (1.8cm on CT 09/09/2014) w/ new adjacent 1x0.8cm solid,non-calcified mass, R hilar and mediastinal LAD; Small R pleural effusion with compressive subsegmental atelectasis in the right lung base. AM - d/c Abx SUBJECTIVE: Patient seen and examined in ICU. Feel better this AM. SOB improved. No CP, fever, chills, n/v. OBJECTIVE: Vital Signs Period Temp Pulse Resp BP Sys/Mcdaniel Pulse Ox Last 24 Hr 97.8 F-98.4 F 85-190 18-30 114-178/59-101 96-96 Intake & Output 06/15/17 06/16/17 06/17/17 06/18/17 23:59 23:59 23:59 23:59 Intake Total 2930 5028 50 Output Total 1350 3600 300 Balance 1580 1428 -250 Weight 84.9 kg GENERAL: aaox3, nad EYES: sclera anicteric, conjunctiva clear ENT: oropharynx clear without exudates, moist mucous membranes NECK: supple, no cervical LAD LUNGS: CTAB, no wheezing or rhonchi HEART: rrr, normal S1/S2 without murmur, rub or gallop. ABDOMEN: Soft, ntnd UPPER EXTREMITIES: 2+ pulses, wwp, no edema LOWER EXTREMITIES: 2+ pulses, wwp, 1+ trace edema CBC, BMP 06/18/17 05:00 06/18/17 05:00 Ca - 8.5 Phos - 2.9 Mg - 1.7 Hepatic Panel Total Bilirubin 0.4 mg/dL (0.2-1.0) D 06/18/17 05:00 AST 16 U/L (15-37) 06/18/17 05:00 ALT 14 U/L (12-78) 06/18/17 05:00 Alkaline Phosphatase 111 U/L (45-117) 06/18/17 05:00 Albumin 2.6 g/dl (3.4-5.0) L 06/18/17 05:00 Imaging: CXR 06/16/2017: "since prior study of 09/08/2014, the mid-right lung mass (also seen 09/09/2014) has increased in size. Now approximately 4.5 x 3.0cm. Heart is not enlarged. Aortic and hilar contours are unremarkable." CXR 06/17/2017: patient rotated, no significant change from yesterday non-con Chest CT 06/17/2017: 4.0 x 3.8 cm R lower lobe neoplasm (1.8cm on CT 10/2014) w/ new adjacent 1x0.8cm solid,non-calcified mass, R hilar and mediastinal LAD; Small R pleural effusion with compressive subsegmental atelectasis in the right lung base Active Medications Acetaminophen (Tylenol -) 650 mg PO Q6H PRN PRN Reason: FEVER OR PAIN Last Admin: 06/16/17 14:53 Dose: 650 mg Albuterol/Ipratropium (Duoneb -) 1 amp NEB Q6H PRN PRN Reason: SHORTNESS OF BREATH Last Admin: 06/17/17 00:12 Dose: 1 amp Atorvastatin Calcium (Lipitor -) 10 mg PO HS [facility] Last Admin: 06/17/17 21:15 Dose: 10 mg Diltiazem HCl (Cardizem -) 30 mg PO Q6HPO [facility] Last Admin: 06/18/17 05:48 Dose: 30 mg Heparin Sodium (Porcine) (Heparin -) 5,000 unit SQ TID [facility] Last Admin: 06/18/17 05:48 Dose: 5,000 unit Insulin Aspart (Novolog Vial Sliding Scale -) 1 vial SQ Q4H [facility] PRN Reason: Protocol Last Admin: 06/18/17 05:47 Dose: Not Given Insulin Detemir (Levemir Vial) 20 units SQ BIDI [facility] Last Admin: 06/18/17 06:37 Dose: 20 units Pantoprazole Sodium (Protonix -) 40 mg PO DAILY [facility] Last Admin: 06/17/17 09:49 Dose: 40 mg ASSESSMENT/PLAN: 62yo woman who is a current smoker with HTN, IDDM, CKD, colon Ca s/p resection who presented with DKA and acute on chronic renal failure in the setting of malfunctioning insulin pump. DKA resolving with anion gap closed. New onset Afib yesterday, converted sinus with diltiazem. ECHO ordered, interpretation pending. chadvasc score is 3 (female, HTN, DM), would consider Cardiology consult. #new onset rapid Afib (CHADVASC score 3) -start diltiazem 30mg PO q6h -consider Cardiology consult -ECHO ordered, interpretation pending #HTN -d/c amlodipine while on diltiazem #HLD -Continue home lipitor #IDDM DKA, resolved -Endocrine consulted -BGM q4h -Levemir 20U BID + ISS #possible CAP vs post-obstructive PNA -ID consulted -discontinue abx -duo nebs prn #lung mass -CT guided biopsy tomorrow #acute on CKD (baseline Cr unknown) -Nephrology consulted -monitor urine output, creatinine #tobacco addiction -14mg Nicotine patch #FEN -IVF held (pt net +) -lytes wnl -Diabetic/Na controlled diet #PPX -DVT - Heparin 5000U SQ TID -GI - pantoprazole 40mg PO qd Dispo: transfer to tele FULL code d/w Dr. Karsten Castle MD [id number] Visit type - Emergency Visit Emergency Visit: No - New Patient This patient is new to me today: No - Critical Care Critical Care patient: Yes Total Critical Care Time (in minutes): 35 Critical Care Statement: The care of this patient involved high complexity decision making to prevent further life threatening deterioration of the patient 's condition and/or to evaluate & treat vital organ system(s) failure or risk of failure.
[2017-06-18] MEDS ORDERED: INSULIN (NOVOLOG) ASPART 100 UNITS/ML 10ML VIAL ONE (09:55)
[2017-06-18] MEDS: PANTOPRAZOLE 40 MG TABLET (FP) PO SCH (09:59)
[2017-06-18] MEDS ORDERED: MAGNESIUM SULF 50% (8.12 MEQ/2 ML-1 GM VIAL) IVPB ONE (10:00)
--- NOTE | 2017-06-18 12:17 | PN ---
Progress Note, Physician Chief Complaint: AWAKE ALERT FEELING BETTER - Current Medication List Current Medications: Active Medications Acetaminophen (Tylenol -) 650 mg PO Q6H PRN PRN Reason: FEVER OR PAIN Last Admin: 06/16/17 14:53 Dose: 650 mg Albuterol/Ipratropium (Duoneb -) 1 amp NEB Q6H PRN PRN Reason: SHORTNESS OF BREATH Last Admin: 06/17/17 00:12 Dose: 1 amp Atorvastatin Calcium (Lipitor -) 10 mg PO HS [facility] Last Admin: 06/17/17 21:15 Dose: 10 mg Diltiazem HCl (Cardizem -) 30 mg PO Q6HPO [facility] Last Admin: 06/18/17 05:48 Dose: 30 mg Heparin Sodium (Porcine) (Heparin -) 5,000 unit SQ TID [facility] Last Admin: 06/18/17 05:48 Dose: 5,000 unit Insulin Aspart (Novolog Vial Sliding Scale -) 1 vial SQ Q4H [facility] PRN Reason: Protocol Last Admin: 06/18/17 09:59 Dose: 2 units Insulin Detemir (Levemir Vial) 20 units SQ BIDI [facility] Last Admin: 06/18/17 06:37 Dose: 20 units Nicotine (Nicoderm Patch -) 14 mg TD DAILY [facility] Pantoprazole Sodium (Protonix -) 40 mg PO DAILY [facility] Last Admin: 06/18/17 09:59 Dose: 40 mg - Objective Vital Signs: Vital Signs Temperature 97.9 F 06/18/17 10:00 Pulse Rate 87 06/18/17 10:00 Respiratory Rate 19 06/18/17 10:00 Blood Pressure 153/72 06/18/17 10:00 O2 Sat by Pulse Oximetry (%) 95 06/18/17 09:00 Constitutional: Yes: Mild Distress Eyes: Yes: WNL HENT: Yes: WNL Neck: Yes: WNL Cardiovascular: Yes: WNL Respiratory: Yes: Rales Gastrointestinal: Yes: WNL Genitourinary: Yes: WNL Musculoskeletal: Yes: WNL Extremities: Yes: WNL Edema: No Peripheral Pulses WNL: Yes Integumentary: Yes: WNL Wound/Incision: Yes: Clean/Dry Neurological: Yes: WNL ...Motor Strength: WNL Psychiatric: Yes: WNL Labs: CBC, BMP 06/18/17 05:00 06/18/17 05:00 Assessment/Plan DKA RESOLVING CONTINUE SSI/BGM CHECKS LUNG MASS NEEDS BIOPSY DISCUSSED WITH PULMONARY PAIN CONTROL 02 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
--- NOTE | 2017-06-18 12:40 | PN ---
Teaching Attending Note Name of Resident: Hiwot Castle ATTENDING PHYSICIAN STATEMENT I saw and evaluated the patient. I reviewed the resident's note and discussed the case with the resident. I agree with the resident's findings and plan as documented. SUBJECTIVE: Pt seen and examined in the ICU. Blood glucose controlled. Feels better. CT chest confirming increased RLL mass. OBJECTIVE: Last Vital Signs Temp Pulse Resp BP Pulse Ox 97.9 F 87 19 153/72 95 06/18/17 10:00 06/18/17 10:00 06/18/17 10:00 06/18/17 10:00 06/18/17 09:00 Intake & Output 06/15/17 06/16/17 06/17/17 06/18/17 23:59 23:59 23:59 23:59 Intake Total 2930 5028 450 Output Total 1350 3600 300 Balance 1580 1428 150 Weight 187 lb 2.759 oz Gen: NAD at rest Heart: RRR Lung: decreased breath sounds at the bases Abd: soft, nontender Ext: no edema CBC, BMP 06/18/17 05:00 06/18/17 05:00 Active Medications Acetaminophen (Tylenol -) 650 mg PO Q6H PRN PRN Reason: FEVER OR PAIN Last Admin: 06/16/17 14:53 Dose: 650 mg Albuterol/Ipratropium (Duoneb -) 1 amp NEB Q6H PRN PRN Reason: SHORTNESS OF BREATH Last Admin: 06/17/17 00:12 Dose: 1 amp Atorvastatin Calcium (Lipitor -) 10 mg PO HS [facility] Last Admin: 06/17/17 21:15 Dose: 10 mg Diltiazem HCl (Cardizem -) 30 mg PO Q6HPO [facility] Last Admin: 06/18/17 05:48 Dose: 30 mg Heparin Sodium (Porcine) (Heparin -) 5,000 unit SQ TID [facility] Last Admin: 06/18/17 05:48 Dose: 5,000 unit Insulin Aspart (Novolog Vial Sliding Scale -) 1 vial SQ Q4H [facility] PRN Reason: Protocol Last Admin: 06/18/17 09:59 Dose: 2 units Insulin Detemir (Levemir Vial) 20 units SQ BIDI [facility] Last Admin: 06/18/17 06:37 Dose: 20 units Nicotine (Nicoderm Patch -) 14 mg TD DAILY [facility] Pantoprazole Sodium (Protonix -) 40 mg PO DAILY [facility] Last Admin: 06/18/17 09:59 Dose: 40 mg ASSESSMENT AND PLAN: Diabetic Ketoacidosis improving New Onset Atrial Fibrillation Acute on Chronic Renal Failure improving HTN Lung Mass Smoker - antibiotics stopped - monitor urine output, creatinine - monitor BGM - glucose control - consider cardiology evaluation - discussed CT guided needle biopsy and she is agreeable - DVT prophylaxis - continue ICU monitoring critical care time spent in reviewing chart, evaluating patient and formulating plan 35 min
[2017-06-18] MEDS: NICOTINE 14 MG/24 HOURS TOPICAL PATCH TD SCH ×2 (12:48→15:23)
--- NOTE | 2017-06-18 13:34 | PN ---
Progress Note, Physician History of Present Illness: Pt seen and examined at bedside. She is awake and alert. - Current Medication List Current Medications: Active Medications Acetaminophen (Tylenol -) 650 mg PO Q6H PRN PRN Reason: FEVER OR PAIN Last Admin: 06/16/17 14:53 Dose: 650 mg Albuterol/Ipratropium (Duoneb -) 1 amp NEB Q6H PRN PRN Reason: SHORTNESS OF BREATH Last Admin: 06/17/17 00:12 Dose: 1 amp Atorvastatin Calcium (Lipitor -) 10 mg PO HS [facility] Last Admin: 06/17/17 21:15 Dose: 10 mg Diltiazem HCl (Cardizem -) 30 mg PO Q6HPO [facility] Last Admin: 06/18/17 12:45 Dose: 30 mg Heparin Sodium (Porcine) (Heparin -) 5,000 unit SQ TID [facility] Last Admin: 06/18/17 05:48 Dose: 5,000 unit Insulin Aspart (Novolog Vial Sliding Scale -) 1 vial SQ Q4H [facility] PRN Reason: Protocol Last Admin: 06/18/17 12:47 Dose: Not Given Insulin Detemir (Levemir Vial) 20 units SQ BIDI [facility] Last Admin: 06/18/17 06:37 Dose: 20 units Nicotine (Nicoderm Patch -) 14 mg TD DAILY [facility] Last Admin: 06/18/17 12:48 Dose: Not Given Pantoprazole Sodium (Protonix -) 40 mg PO DAILY [facility] Last Admin: 06/18/17 09:59 Dose: 40 mg - Objective Vital Signs: Vital Signs Temperature 97.9 F 06/18/17 10:00 Pulse Rate 99 H 06/18/17 12:00 Respiratory Rate 25 H 06/18/17 12:00 Blood Pressure 169/75 06/18/17 12:00 O2 Sat by Pulse Oximetry (%) 95 06/18/17 09:00 Constitutional: Yes: Calm Eyes: Yes: Conjunctiva Clear HENT: Yes: Atraumatic Neck: Yes: Supple Cardiovascular: Yes: S1, S2 Respiratory: Yes: CTA Bilaterally Gastrointestinal: Yes: Normal Bowel Sounds, Soft Genitourinary: Yes: WNL Musculoskeletal: Yes: WNL Edema: No Neurological: Yes: Oriented Psychiatric: Yes: Oriented Labs: CBC, BMP 06/18/17 05:00 06/18/17 05:00 Assessment/Plan Current Medications Generic Name Dose Route Start Last Admin Trade Name Alfonso PRN Reason Stop Dose Admin Acetaminophen 650 mg 06/16/17 07:27 06/16/17 14:53 Tylenol - PO 650 mg Q6H PRN Administration FEVER OR PAIN Albuterol/Ipratropium 1 amp 06/16/17 16:26 06/17/17 00:12 Duoneb - NEB 1 amp Q6H PRN Administration SHORTNESS OF BREATH Atorvastatin Calcium 10 mg 06/16/17 22:00 06/17/17 21:15 Lipitor - PO 10 mg HS [facility] Administration Diltiazem HCl 30 mg 06/17/17 12:30 06/18/17 12:45 Cardizem - PO 30 mg Q6HPO [facility] Administration Heparin Sodium (Porcine) 5,000 unit 06/16/17 14:00 06/18/17 05:48 Heparin - SQ 5,000 unit TID [facility] Administration Insulin Aspart 1 vial 06/17/17 17:16 06/18/17 12:47 Novolog Vial Sliding Scale - SQ Not Given Q4H [facility] Protocol Insulin Detemir 20 units 06/16/17 22:56 06/18/17 06:37 Levemir Vial SQ 20 units BIDI [facility] Administration Nicotine 14 mg 06/18/17 12:00 06/18/17 12:48 Nicoderm Patch - TD Not Given DAILY [facility] Pantoprazole Sodium 40 mg 06/16/17 19:00 06/18/17 09:59 Protonix - PO 40 mg DAILY [facility] Administration Impression 1. CKD with acute component 2. hyperkalemia 3. DKA 4. htn 5. chol Plan - renal function continues to improve - monitor blood sugar - cardiology follow - smoking cessation - pt is stable off of fluids - monitor potassium
[2017-06-18] MEDS ORDERED: PT OWN MED DRAWER 7, Y5N ONE ×2 (14:30→15:09)
[2017-06-18] MEDS: ALBUTEROL SO4 2.5/IPRATROPIUM 0.5 INH SOL 3 ML VIAL.NEB. NEB PRN (17:31)
[2017-06-18] MEDS ORDERED: LORazepam 1 MG TABLET PO ONE (21:27)
[2017-06-18] MEDS: ATORVASTATIN CA 10 MG TABLET (FP) PO SCH (22:00)
[2017-06-19] MEDS ORDERED: LORazepam 1 MG TABLET PO ONE (00:06)
--- NOTE | 2017-06-19 01:28 | PN ---
Progress Note, Physician Chief Complaint: anxious about dx lung mass possible neoplasm, sugars are stable History of Present Illness: iddm sp dka,hyprglycemia,htn,lung mass possible neoplasm,for evaluation,blood sugars are labile,willing to restart insulin pump once new pump arrives - Current Medication List Current Medications: Active Medications Acetaminophen (Tylenol -) 650 mg PO Q6H PRN PRN Reason: FEVER OR PAIN Last Admin: 06/16/17 14:53 Dose: 650 mg Albuterol/Ipratropium (Duoneb -) 1 amp NEB Q6H PRN PRN Reason: SHORTNESS OF BREATH Last Admin: 06/18/17 17:31 Dose: 1 amp Atorvastatin Calcium (Lipitor -) 10 mg PO HS [facility] Last Admin: 06/18/17 22:00 Dose: 10 mg Diltiazem HCl (Cardizem -) 30 mg PO Q6HPO [facility] Last Admin: 06/18/17 23:59 Dose: 30 mg Heparin Sodium (Porcine) (Heparin -) 5,000 unit SQ TID [facility] Last Admin: 06/18/17 21:40 Dose: 5,000 unit Insulin Aspart (Novolog Vial Sliding Scale -) 1 vial SQ Q4H [facility] PRN Reason: Protocol Last Admin: 06/18/17 21:38 Dose: 6 units Insulin Detemir (Levemir Vial) 20 units SQ BIDI [facility] Last Admin: 06/18/17 17:27 Dose: 20 units Nicotine (Nicoderm Patch -) 14 mg TD DAILY [facility] Last Admin: 06/18/17 15:23 Dose: 14 mg Pantoprazole Sodium (Protonix -) 40 mg PO DAILY [facility] Last Admin: 06/18/17 09:59 Dose: 40 mg - Objective Vital Signs: Vital Signs Temperature 98.6 F 06/18/17 14:00 Pulse Rate 111 H 06/18/17 22:00 Respiratory Rate 14 06/18/17 22:00 Blood Pressure 170/70 06/18/17 22:00 O2 Sat by Pulse Oximetry (%) 95 06/18/17 09:00 Constitutional: Yes: Well Nourished Eyes: Yes: EOM Intact HENT: Yes: Normocephalic Neck: Yes: WNL Cardiovascular: Yes: Tachycardia, Murmur Respiratory: Yes: Rales, Tachypnea Gastrointestinal: Yes: Normal Bowel Sounds ...Rectal Exam: Yes: Deferred Genitourinary: Yes: WNL Musculoskeletal: Yes: WNL Extremities: Yes: WNL Edema: No Neurological: Yes: Alert, Oriented Labs: CBC, BMP 06/18/17 05:00 06/18/17 05:00 INR, PTT INR 1.00 (0.82-1.09) 06/18/17 13:15 Assessment/Plan Current Active Problems Bilateral pneumonia (Acute) DKA (diabetic ketoacidosis) (Acute) Diabetes mellitus, insulin dependent (IDDM), uncontrolled (Acute) Abnormal Lab Results 06/18/17 06/18/17 05:00 05:00 WBC 10.5 H RBC 3.27 L Hgb 9.0 L Hct 27.5 L RDW 15.8 H MPV 6.9 L Chloride 109 H BUN 24 H D Creatinine 1.4 H D Magnesium 1.7 L Total Protein 5.9 L Albumin 2.6 L Laboratory Results - last 24 hr 06/16/17 06/18/17 06/18/17 08:17 05:00 05:00 WBC 10.5 H RBC 3.27 L Hgb 9.0 L Hct 27.5 L MCV 84.2 MCH 27.4 MCHC 32.5 RDW 15.8 H Plt Count 401 MPV 6.9 L Neutrophils % 67.4 D Lymphocytes % 20.0 D Monocytes % 9.9 D Eosinophils % 1.7 D Basophils % 1.0 D PT with INR INR Sodium 144 Potassium 4.1 Chloride 109 H Carbon Dioxide 24 D Anion Gap 11 BUN 24 H D Creatinine 1.4 H D Creat Clearance w eGFR 38.36 POC Glucometer > 400 Random Glucose 93 D Calcium 8.5 Phosphorus 2.9 Magnesium 1.7 L Total Bilirubin 0.4 D AST 16 ALT 14 Alkaline Phosphatase 111 Total Protein 5.9 L Albumin 2.6 L 06/18/17 13:15 WBC RBC Hgb Hct MCV MCH MCHC RDW Plt Count MPV Neutrophils % Lymphocytes % Monocytes % Eosinophils % Basophils % PT with INR 11.00 INR 1.00 Sodium Potassium Chloride Carbon Dioxide Anion Gap BUN Creatinine Creat Clearance w eGFR POC Glucometer Random Glucose Calcium Phosphorus Magnesium Total Bilirubin AST ALT Alkaline Phosphatase Total Protein Albumin Laboratory Tests 06/16/17 06/16/17 06/16/17 10:15 14:35 20:00 Random Glucose 245 H D 236 H 255 H plan: continue bgm coverage once insulin pump is replaced will restart pump using novolog insulin levemir 20 unit am levemir 15 units hs
[2017-06-19] MEDS: INSULIN SLIDING SCALE (NOVOLOG) 1 VIAL SQ SCH ×6 (01:33→22:26)
[2017-06-19 06:02] LABS: BASOPHIL 0.4 % (0-2.0); EOSINOPHIL 2.2 % (0-4.5); MCH 27.8 pg (25.7-33.7); MCHC 33.5 g/dl (32.0-36.0); MEAN CELL VOLUME 82.9 fl (80-96); MEAN PLT VOLUME 6.7 fl (7.5-11.1); NEUTROPHILS 69.7 % (42.8-82.8); PLATELET COUNT 401 K/MM3 (134-434); RDW 15.6 % (11.6-15.6); WHITE BLOOD COUNT 9.5 K/mm3 (4.0-10.0)
[2017-06-19 06:30] LABS: ALBUMIN 2.5 g/dl (3.4-5.0); ANION GAP 9 (8-16); CALCIUM 8.8 mg/dL (8.5-10.1); CO2 26 mmol/L (21-32); GLUCOSE,RANDOM 86 mg/dL (74-106)
[2017-06-19 06:34] LABS: ALK PHOS 112 U/L (45-117); BILIRUBIN,TOTAL 0.3 mg/dL (0.2-1.0); CREATININE 1.2 mg/dL (0.55-1.02); PHOSPHOROUS 3.2 mg/dL (2.5-4.9); SGOT/AST 14 U/L (15-37); SGPT/ALT 15 U/L (12-78)
[2017-06-19] MEDS: INSULIN DETEMIR 100 UNITS/ML MDV SQ SCH ×2 (06:37→22:17)
[2017-06-19] MEDS: dilTIAZem HCL 30 MG TABLET (FP) PO SCH ×4 (06:37→22:26)
[2017-06-19] MEDS: HEPARIN NA (PORCINE) 5,000 UNITS/ML 1ML VIAL SQ SCH (06:37)
--- NOTE | 2017-06-19 08:30 | PN ---
Physical Exam: 24H Events: yesterday - d/c abx, ECHO EF 71.6%, LV/RV nml size, no wall motion abnormalities , elevated RV systolic pressure, mod Pulm htn. ON - tachy to 110's, NSR, elevated SBP AM - awaiting tele bed, started Ramipril 5mg PO daily SUBJECTIVE: Patient seen and examined in ICU. Poor sleep, anxious about biopsy today. Fells less short of breath, continues to have mild dry cough. No fever, chills, n/v, dysuria. No chest pain or palpitations. OBJECTIVE: Vital Signs Period Temp Pulse Resp BP Sys/Mcdaniel Pulse Ox Last 24 Hr 97.9 F-98.6 F 85-111 14-25 150-188/52-85 95-95 Intake & Output 06/16/17 06/17/17 06/18/17 06/19/17 23:59 23:59 23:59 23:59 Intake Total 2930 5028 1250 150 Output Total 1350 3600 700 Balance 1580 1428 550 150 Weight 84.9 kg GENERAL: aaox3, nad EYES: sclera anicteric, conjunctiva clear ENT: oropharynx clear without exudates, moist mucous membranes NECK: supple, no cervical LAD LUNGS: decreased breath sounds at bases HEART: rrr, normal S1/S2 without murmur, rub or gallop. ABDOMEN: Soft, ntnd UPPER EXTREMITIES: 2+ pulses, wwp, no edema LOWER EXTREMITIES: 2+ pulses, wwp, trace edema L>R CBC, BMP 06/19/17 05:00 06/19/17 05:00 Hepatic Panel Total Bilirubin 0.3 mg/dL (0.2-1.0) D 06/19/17 05:00 AST 14 U/L (15-37) L 06/19/17 05:00 ALT 15 U/L (12-78) 06/19/17 05:00 Alkaline Phosphatase 112 U/L (45-117) 06/19/17 05:00 Albumin 2.5 g/dl (3.4-5.0) L 06/19/17 05:00 Imaging: CXR 06/18/2017: patient rotates, no significant change from yesterday; no new infiltrates, pleural effusion or pneumothorax CXR 06/17/2017: patient rotated, no significant change from yesterday non-con Chest CT 06/17/2017: 4.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 Now approximately 4.5 x 3.0cm. Heart is not enlarged. Aortic and hilar contours are unremarkable." Active Medications Acetaminophen (Tylenol -) 650 mg PO Q6H PRN PRN Reason: FEVER OR PAIN Last Admin: 06/16/17 14:53 Dose: 650 mg Albuterol/Ipratropium (Duoneb -) 1 amp NEB Q6H PRN PRN Reason: SHORTNESS OF BREATH Last Admin: 06/18/17 17:31 Dose: 1 amp Atorvastatin Calcium (Lipitor -) 10 mg PO HS [facility] Last Admin: 06/18/17 22:00 Dose: 10 mg Diltiazem HCl (Cardizem -) 30 mg PO Q6HPO [facility] Last Admin: 06/19/17 06:37 Dose: 30 mg Heparin Sodium (Porcine) (Heparin -) 5,000 unit SQ TID [facility] Last Admin: 06/19/17 06:37 Dose: 5,000 unit Insulin Aspart (Novolog Vial Sliding Scale -) 1 vial SQ Q4H [facility] PRN Reason: Protocol Last Admin: 06/19/17 05:34 Dose: Not Given Insulin Detemir (Levemir Vial) 20 units SQ AM [facility] Last Admin: 06/19/17 06:37 Dose: 20 units Insulin Detemir (Levemir Vial) 15 units SQ HS [facility] Nicotine (Nicoderm Patch -) 14 mg TD DAILY [facility] Last Admin: 06/18/17 15:23 Dose: 14 mg Pantoprazole Sodium (Protonix -) 40 mg PO DAILY [facility] Last Admin: 06/18/17 09:59 Dose: 40 mg ASSESSMENT/PLAN: 62yo woman who is a current smoker with HTN, IDDM, CKD, colon Ca s/p resection who presented with DKA and acute on chronic renal failure in the setting of malfunctioning insulin pump. DKA resolving with anion gap closed. New onset Afib 2 days ago (06/17) converted sinus with diltiazem gtt, weaned off to PO. ECHO showed normal LV/RV function with no wall motion abnormalities, elevated R systolic pressure and pulmonary HTN. Discussed with Dr. Arciniega to consult Cardiology, and started on Ramipril 5mg PO for SBP control. #new onset rapid Afib (CHADVASC score 3) -start diltiazem 30mg PO q6h -Cardiology consulted #HTN -start Ramipril 5mg PO daily #HLD -Continue home lipitor #IDDM DKA, resolved -Endocrine consulted -BGM q4h -Levemir 20U BID + ISS #possible CAP vs post-obstructive PNA -ID consulted -discontinue abx -duo nebs prn #lung mass -CT guided biopsy today #acute on CKD (baseline Cr unknown) -Nephrology consulted -monitor urine output, creatinine #tobacco addiction -14mg Nicotine patch #FEN -IVF held (pt net +) -lytes wnl -Diabetic/Na controlled diet #PPX -DVT - Heparin 5000U SQ TID -- resume after biopsy -GI - pantoprazole 40mg PO qd Dispo: transfer to tele FULL code d/w Dr. Karsten Castle MD PGY-1 Visit type - Emergency Visit Emergency Visit: No - New Patient This patient is new to me today: No - Critical Care Critical Care patient: Yes Total Critical Care Time (in minutes): 35 Critical Care Statement: The care of this patient involved high complexity decision making to prevent further life threatening deterioration of the patient 's condition and/or to evaluate & treat vital organ system(s) failure or risk of failure.
[2017-06-19 09:03] LABS: QUANTIFERON GOLD NEGATIVE
[2017-06-19] MEDS: NICOTINE 14 MG/24 HOURS TOPICAL PATCH TD SCH (09:53)
[2017-06-19] MEDS ORDERED: HEMOQUE TEST 1 EACH EACH ONE ×2 (11:09→13:15)
[2017-06-19] MEDS: PANTOPRAZOLE 40 MG TABLET (FP) PO SCH (11:16)
--- NOTE | 2017-06-19 11:44 | PN ---
Progress Note, Physician Chief Complaint: AFIB ON MONITOR WITH HTN AWAKE ALERT LUNG BIOPSY TODAY - Current Medication List Current Medications: Active Medications Acetaminophen (Tylenol -) 650 mg PO Q6H PRN PRN Reason: FEVER OR PAIN Last Admin: 06/16/17 14:53 Dose: 650 mg Albuterol/Ipratropium (Duoneb -) 1 amp NEB Q6H PRN PRN Reason: SHORTNESS OF BREATH Last Admin: 06/18/17 17:31 Dose: 1 amp Atorvastatin Calcium (Lipitor -) 10 mg PO HS [facility] Last Admin: 06/18/17 22:00 Dose: 10 mg Diltiazem HCl (Cardizem -) 30 mg PO Q6HPO [facility] Last Admin: 06/19/17 11:17 Dose: 30 mg Heparin Sodium (Porcine) (Heparin -) 5,000 unit SQ TID [facility] Last Admin: 06/19/17 06:37 Dose: 5,000 unit Insulin Aspart (Novolog Vial Sliding Scale -) 1 vial SQ Q4H [facility] PRN Reason: Protocol Last Admin: 06/19/17 11:16 Dose: 2 units Insulin Detemir (Levemir Vial) 20 units SQ AM [facility] Last Admin: 06/19/17 06:37 Dose: 20 units Insulin Detemir (Levemir Vial) 15 units SQ HS [facility] Nicotine (Nicoderm Patch -) 14 mg TD DAILY [facility] Last Admin: 06/19/17 09:53 Dose: 14 mg Pantoprazole Sodium (Protonix -) 40 mg PO DAILY [facility] Last Admin: 06/19/17 11:16 Dose: 40 mg - Objective Vital Signs: Vital Signs Temperature 98.5 F 06/19/17 10:00 Pulse Rate 93 H 06/19/17 10:09 Respiratory Rate 20 06/19/17 10:00 Blood Pressure 166/77 06/19/17 10:00 O2 Sat by Pulse Oximetry (%) 97 06/19/17 10:09 Constitutional: Yes: Mild Distress Eyes: Yes: WNL HENT: Yes: WNL Neck: Yes: WNL Cardiovascular: Yes: Pulse Irregular Respiratory: Yes: On Nasal O2, Poor Air Entry Gastrointestinal: Yes: WNL Genitourinary: Yes: WNL Musculoskeletal: Yes: WNL Extremities: Yes: WNL Edema: No Peripheral Pulses WNL: Yes Integumentary: Yes: WNL Wound/Incision: Yes: Clean/Dry Neurological: Yes: WNL ...Motor Strength: WNL Psychiatric: Yes: WNL Labs: CBC, BMP 06/19/17 05:00 06/19/17 05:00 INR, PTT INR 1.00 (0.82-1.09) 06/18/17 13:15 Assessment/Plan DKA RESOLVING CONTINUE SSI/BGM CHECKS LUNG MASS BIOPSY TODAY DISCUSSED WITH PULMONARY PAIN CONTROL 02 SUPPORT TRANSPORTATION SUPERVISOR CONSULT START RAMIPRIL 5MG DAILY CARDIOLOGY EVAL
--- NOTE | 2017-06-19 12:53 | PN ---
Teaching Attending Note Name of Resident: Hiwot Castle ATTENDING PHYSICIAN STATEMENT I saw and evaluated the patient. I reviewed the resident's note and discussed the case with the resident. I agree with the resident's findings and plan as documented. SUBJECTIVE: Pt seen and examined in the ICU. No overnight events aside from poor sleep. Denies shortness of breath or chest pain. Blood sugars controlled. OBJECTIVE: Last Vital Signs Temp Pulse Resp BP Pulse Ox 98.5 F 93 H 20 166/77 97 06/19/17 10:00 06/19/17 10:09 06/19/17 10:00 06/19/17 10:00 06/19/17 10:09 Intake & Output 06/16/17 06/17/17 06/18/17 06/19/17 23:59 23:59 23:59 23:59 Intake Total 2930 5028 1250 150 Output Total 1350 3600 700 Balance 1580 1428 550 150 Weight 187 lb 2.759 oz Gen: NAD in chair Heart: RRR Lung: decreased breath sounds at the bases Abd: soft, nontender Ext: no edema CBC, BMP 06/19/17 05:00 06/19/17 05:00 Active Medications Acetaminophen (Tylenol -) 650 mg PO Q6H PRN PRN Reason: FEVER OR PAIN Last Admin: 06/16/17 14:53 Dose: 650 mg Albuterol/Ipratropium (Duoneb -) 1 amp NEB Q6H PRN PRN Reason: SHORTNESS OF BREATH Last Admin: 06/18/17 17:31 Dose: 1 amp Atorvastatin Calcium (Lipitor -) 10 mg PO HS [facility] Last Admin: 06/18/17 22:00 Dose: 10 mg Diltiazem HCl (Cardizem -) 30 mg PO Q6HPO [facility] Last Admin: 06/19/17 11:17 Dose: 30 mg Heparin Sodium (Porcine) (Heparin -) 5,000 unit SQ TID [facility] Last Admin: 06/19/17 06:37 Dose: 5,000 unit Insulin Aspart (Novolog Vial Sliding Scale -) 1 vial SQ Q4H [facility] PRN Reason: Protocol Last Admin: 06/19/17 11:16 Dose: 2 units Insulin Detemir (Levemir Vial) 20 units SQ AM [facility] Last Admin: 06/19/17 06:37 Dose: 20 units Insulin Detemir (Levemir Vial) 15 units SQ HS [facility] Nicotine (Nicoderm Patch -) 14 mg TD DAILY [facility] Last Admin: 06/19/17 09:53 Dose: 14 mg Pantoprazole Sodium (Protonix -) 40 mg PO DAILY [facility] Last Admin: 06/19/17 11:16 Dose: 40 mg Ramipril (Altace -) 5 mg PO DAILY [facility] ASSESSMENT AND PLAN: Diabetic Ketoacidosis improving New Onset [place]one Atrial Fibrillation Acute on Chronic Renal Failure improving HTN Lung Mass Smoker - s/p antibiotics - monitor urine output, creatinine - monitor BGM - glucose control - consider cardiology evaluation - for CT guided needle biopsy - DVT prophylaxis - can monitor on telemetry critical care time spent in reviewing chart, evaluating patient and formulating plan 35 min
[2017-06-19] MEDS: RAMIPRIL 5 MG CAPSULE (FP) PO SCH (12:59)
--- NOTE | 2017-06-19 15:06 | CON.CARD ---
Consult Consult Specialty:: Cardiology Referred by:: Demian Reason for Consultation:: Afib - History of Present Illness Chief Complaint: elevated glucose History of Present Illness: 62 year old female with a pmhx of dm on insulin, htn, hld, and lung mass presenting with weakness and nausea with elevated glucose levels. Says her insulin pump was not working. No chest pain, dyspnea, or palpitations noted. No pnd, orthopnea, or edema. Baseline exercise tolerance 1 1/2 blocks. Was noted to be in DKA with SUSAN Afib with VR 149bpm CT chest with increasing lung mass. Echocardiogram with normal LVEF, mod-sev TR, mod pulm htn. - History Source History Provided By: Patient, Medical Record - Past Medical History Cardio/Vascular: Yes: HTN, Hyperlipdemia Gastrointestinal: Yes: Cancer (COLON), GERD ...: No Psych: Yes: Anxiety Endocrine: Yes: Diabetes Mellitus (ON INSULIN PUMP) - Past Surgical History Past Surgical History: Yes: Colectomy (2 YRS AGO COLON CA), Hernia Repair ( icisional) - Alcohol/Substance Use Hx Alcohol Use: No - Smoking History Smoking history: Current every day smoker Have you smoked in the past 12 months: Yes Aproximately how many cigarettes per day: 10 - Social History Usual Living Arrangement: With Spouse ADL: Independent History of Recent Travel: No Home Medications - Allergies Allergies/Adverse Reactions: Allergies Allergy/AdvReac Type Severity Reaction Status Date / Time morphine Allergy Verified 06/16/17 04:23 - Home Medications Home Medications: Ambulatory Orders Atorvastatin Ca [Lipitor] 20 mg PO HS #0 tablet 01/14/14 Insulin Pump Controller [Snap Insulin Pump Controller] 0 units SQ ASDIR Gabapentin 300 mg PO BID #60 capsule 08/23/14 Lipase/Protease/Amylase [Ira Rm 36,000 Units Capsule] 36,000 units PO TIDCM Amlodipine Besylate [Norvasc -] 5 mg PO DAILY #30 tablet 09/12/14 Vital Signs: Vital Signs Temperature 98.5 F 06/19/17 10:00 Pulse Rate 107 H 06/19/17 12:00 Respiratory Rate 20 06/19/17 12:00 Blood Pressure 168/96 06/19/17 12:00 O2 Sat by Pulse Oximetry (%) 97 06/19/17 10:09 Constitutional: Yes: No Distress Respiratory: Yes: CTA Bilaterally Gastrointestinal: Yes: Normal Bowel Sounds, Soft Cardiovascular: Yes: Regular Rate and Rhythm, Tachycardia JVD: No Carotid Bruit: No Heart Sounds: Yes: S1, S2 Murmur: No: Systolic Murmur Edema: No - Other Data Labs, Other Data: CBC, BMP 06/19/17 05:00 06/19/17 05:00 INR, PTT INR 1.00 (0.82-1.09) 06/18/17 13:15 Imaging - Results Chest X-ray: Report Reviewed Cat Scan: Report Reviewed EKG: Image Reviewed Assessment/Plan 62 year old female with a pmhx of dm on insulin, htn, hld, and lung mass presenting with weakness and nausea with elevated glucose levels. Says her insulin pump was not working. No chest pain, dyspnea, or palpitations noted. No pnd, orthopnea, or edema. Baseline exercise tolerance 1 1/2 blocks. Was noted to be in DKA with SUSAN Afib with VR 149bpm CT chest with increasing lung mass. Echocardiogram with normal LVEF, mod-sev TR, mod pulm htn. 1) Afib -Likely exacerbated by DKA Cr now improved after IVF's and dka management -On diltiazem 30mg q6. No longer in afib and currently in sinus 80-100bpm CHADS VASC 3 score and anticoagulation would be indicated if not deemed contraindicated by primary team. Patient is planned for lung biopsy. If patient will not need further inpatient procedures would start NOAC such as apixaban 5mg po bid when deemed by primary team to be safe after lung biopsy and if mass is malignancy no worry for brain mets. If patient will be needing further procedures than instead of NOAC would use heparin while inpatient. 2) HTN Diltiazem started on ramipril. Given DM would increase ramipril as K tolerates. Also room to increase diltiazem to 60mg if needed after this. Monitor on telemetry.
--- NOTE | 2017-06-19 16:39 | PN ---
Progress Note, Physician History of Present Illness: Pt seen and examined at bedside. She is awake and alert. She feels better today. - Current Medication List Current Medications: Active Medications Acetaminophen (Tylenol -) 650 mg PO Q6H PRN PRN Reason: FEVER OR PAIN Last Admin: 06/16/17 14:53 Dose: 650 mg Albuterol/Ipratropium (Duoneb -) 1 amp NEB Q6H PRN PRN Reason: SHORTNESS OF BREATH Last Admin: 06/18/17 17:31 Dose: 1 amp Atorvastatin Calcium (Lipitor -) 10 mg PO HS [facility] Last Admin: 06/18/17 22:00 Dose: 10 mg Diltiazem HCl (Cardizem -) 30 mg PO Q6HPO [facility] Last Admin: 06/19/17 11:17 Dose: 30 mg Heparin Sodium (Porcine) (Heparin -) 5,000 unit SQ TID [facility] Last Admin: 06/19/17 06:37 Dose: 5,000 unit Insulin Aspart (Novolog Vial Sliding Scale -) 1 vial SQ Q4H [facility] PRN Reason: Protocol Last Admin: 06/19/17 13:18 Dose: 2 units Insulin Detemir (Levemir Vial) 20 units SQ AM [facility] Last Admin: 06/19/17 06:37 Dose: 20 units Insulin Detemir (Levemir Vial) 15 units SQ HS [facility] Nicotine (Nicoderm Patch -) 14 mg TD DAILY [facility] Last Admin: 06/19/17 09:53 Dose: 14 mg Pantoprazole Sodium (Protonix -) 40 mg PO DAILY [facility] Last Admin: 06/19/17 11:16 Dose: 40 mg Ramipril (Altace -) 5 mg PO DAILY [facility] Last Admin: 06/19/17 12:59 Dose: 5 mg - Objective Vital Signs: Vital Signs Temperature 98.6 F 06/19/17 14:00 Pulse Rate 108 H 06/19/17 14:00 Respiratory Rate 20 06/19/17 14:00 Blood Pressure 163/90 06/19/17 14:00 O2 Sat by Pulse Oximetry (%) 97 06/19/17 10:09 Constitutional: Yes: Calm Eyes: Yes: Conjunctiva Clear HENT: Yes: Atraumatic Cardiovascular: Yes: S1, S2 Respiratory: Yes: CTA Bilaterally Gastrointestinal: Yes: Soft Genitourinary: Yes: WNL Musculoskeletal: Yes: WNL Edema: No Neurological: Yes: Oriented Psychiatric: Yes: Oriented Labs: CBC, BMP 06/19/17 05:00 06/19/17 05:00 INR, PTT INR 1.00 (0.82-1.09) 06/18/17 13:15 Assessment/Plan Current Medications Generic Name Dose Route Start Last Admin Trade Name Freq PRN Reason Stop Dose Admin Acetaminophen 650 mg 06/16/17 07:27 06/16/17 14:53 Tylenol - PO 650 mg Q6H PRN Administration FEVER OR PAIN Albuterol/Ipratropium 1 amp 06/16/17 16:26 06/18/17 17:31 Duoneb - NEB 1 amp Q6H PRN Administration SHORTNESS OF BREATH Atorvastatin Calcium 10 mg 06/16/17 22:00 06/18/17 22:00 Lipitor - PO 10 mg HS [facility] Administration Diltiazem HCl 30 mg 06/17/17 12:30 06/19/17 11:17 Cardizem - PO 30 mg Q6HPO [facility] Administration Heparin Sodium (Porcine) 5,000 unit 06/16/17 14:00 06/19/17 06:37 Heparin - SQ 5,000 unit TID [facility] Administration Insulin Aspart 1 vial 06/17/17 17:16 06/19/17 13:18 Novolog Vial Sliding Scale - SQ 2 units Q4H [facility] Administration Protocol Insulin Detemir 20 units 06/19/17 07:00 06/19/17 06:37 Levemir Vial SQ 20 units AM [facility] Administration Insulin Detemir 15 units 06/19/17 22:00 Levemir Vial SQ HS [facility] Nicotine 14 mg 06/18/17 12:00 06/19/17 09:53 Nicoderm Patch - TD 14 mg DAILY [facility] Administration Pantoprazole Sodium 40 mg 06/16/17 19:00 06/19/17 11:16 Protonix - PO 40 mg DAILY [facility] Administration Ramipril 5 mg 06/19/17 11:45 06/19/17 12:59 Altace - PO 5 mg DAILY [facility] Administration Impression 1. CKD with acute component 2. hyperkalemia 3. DKA 4. htn 5. chol 6. SUSAN 7. a-fib Plan - renal function is stabilized - likely susan secondary to DKA - will see pt in office - cardio input appreciated - will follow
[2017-06-19] MEDS ORDERED: ONDANSETRON 4 MG/2 ML VIAL IVPUSH PRN (17:03)
[2017-06-19] MEDS ORDERED: PNEUMOC 13-VAL CONJ-DIP CRM/PF 0.5 ML DISP.SYRIN IM ONE (18:53)
[2017-06-19] MEDS ORDERED: ZOLPIDEM TARTRATE 5 MG TABLET PO ONE (22:15)
[2017-06-19] MEDS: ATORVASTATIN CA 10 MG TABLET (FP) PO SCH (22:17)
[2017-06-20] MEDS: dilTIAZem HCL 30 MG TABLET (FP) PO SCH ×5 (01:52→23:12)
[2017-06-20] MEDS: INSULIN SLIDING SCALE (NOVOLOG) 1 VIAL SQ SCH ×6 (01:52→22:15)
[2017-06-20] MEDS: INSULIN DETEMIR 100 UNITS/ML MDV SQ SCH ×2 (06:32→22:14)
[2017-06-20 07:23] LABS: BASOPHIL 0.8 % (0-2.0); EOSINOPHIL 4.2 % (0-4.5); MCH 27.2 pg (25.7-33.7); MCHC 32.6 g/dl (32.0-36.0); MEAN CELL VOLUME 83.5 fl (80-96); MEAN PLT VOLUME 6.7 fl (7.5-11.1); NEUTROPHILS 58.9 % (42.8-82.8); PLATELET COUNT 408 K/MM3 (134-434); RDW 15.6 % (11.6-15.6); WHITE BLOOD COUNT 7.5 K/mm3 (4.0-10.0)
[2017-06-20 07:39] LABS: INR 0.99 (0.82-1.09); PROTHROMBIN TIME (PATIENT) 11.2 SEC (9.98-11.88)
[2017-06-20 07:45] LABS: ALBUMIN 2.6 g/dl (3.4-5.0); ALK PHOS 113 U/L (45-117); ANION GAP 7 (8-16); BILIRUBIN,TOTAL 0.6 mg/dL (0.2-1.0); CALCIUM 8.8 mg/dL (8.5-10.1); CO2 28 mmol/L (21-32); CREATININE 1.3 mg/dL (0.55-1.02); GLUCOSE,RANDOM 100 mg/dL (74-106); PHOSPHOROUS 3.3 mg/dL (2.5-4.9); SGOT/AST 16 U/L (15-37); SGPT/ALT 16 U/L (12-78); TOT PROT 6.1 g/dl (6.4-8.2)
--- NOTE | 2017-06-20 07:54 | PN ---
Progress Note, Physician History of Present Illness: no complaints - Current Medication List Current Medications: Active Medications Acetaminophen (Tylenol -) 650 mg PO Q6H PRN PRN Reason: FEVER OR PAIN Last Admin: 06/16/17 14:53 Dose: 650 mg Albuterol/Ipratropium (Duoneb -) 1 amp NEB Q6H PRN PRN Reason: SHORTNESS OF BREATH Last Admin: 06/18/17 17:31 Dose: 1 amp Atorvastatin Calcium (Lipitor -) 10 mg PO HS [facility] Last Admin: 06/19/17 22:17 Dose: 10 mg Diltiazem HCl (Cardizem -) 30 mg PO Q6HPO [facility] Last Admin: 06/20/17 06:33 Dose: 30 mg Heparin Sodium (Porcine) (Heparin -) 5,000 unit SQ TID [facility] Last Admin: 06/19/17 06:37 Dose: 5,000 unit Insulin Aspart (Novolog Vial Sliding Scale -) 1 vial SQ Q4H [facility] PRN Reason: Protocol Last Admin: 06/20/17 06:32 Dose: Not Given Insulin Detemir (Levemir Vial) 20 units SQ AM [facility] Last Admin: 06/20/17 06:32 Dose: Not Given Insulin Detemir (Levemir Vial) 15 units SQ HS [facility] Last Admin: 06/19/17 22:17 Dose: 15 units Nicotine (Nicoderm Patch -) 14 mg TD DAILY [facility] Last Admin: 06/19/17 09:53 Dose: 14 mg Ondansetron HCl (Zofran Injection) 4 mg IVPUSH Q6H PRN PRN Reason: NAUSEA AND/OR VOMITING Pantoprazole Sodium (Protonix -) 40 mg PO DAILY [facility] Last Admin: 06/19/17 11:16 Dose: 40 mg Ramipril (Altace -) 5 mg PO DAILY [facility] Last Admin: 06/19/17 12:59 Dose: 5 mg - Objective Vital Signs: Vital Signs Temperature 97.9 F 06/20/17 06:00 Pulse Rate 78 06/20/17 06:00 Respiratory Rate 20 06/20/17 06:00 Blood Pressure 136/63 06/20/17 06:00 O2 Sat by Pulse Oximetry (%) 98 06/19/17 21:00 Cardiovascular: Yes: Regular Rate and Rhythm Respiratory: Yes: Regular, CTA Bilaterally Gastrointestinal: Yes: Normal Bowel Sounds, Soft Labs: CBC, BMP 06/20/17 05:10 INR, PTT INR 1.00 (0.82-1.09) 06/18/17 13:15 Assessment/Plan 1. new onset Afib (CHADVASC score 3) -start diltiazem 30mg PO q6h - Cardiology consult noted -START AC AFTER BIOPSY--ELIQUIS 5 MG BID -ECHO 2. HTN - on diltiazem 3. HLD -Continue home lipitor 4. IDDM DKA, resolved -Endocrine consulted -BGM q4h -Levemir 20U BID + ISS 5. lung mass -CT guided biopsy 6. CKD (baseline Cr unknown) -Nephrology consulted -monitor urine output, creatinine 7. tobacco addiction -14mg Nicotine patch 8. PPX -DVT - Heparin 5000U SQ TID -GI - pantoprazole 40mg PO qd
--- NOTE | 2017-06-20 11:02 | PN ---
Progress Note, Physician Chief Complaint: No complaints Awaiting biopsy Sinus on tele History of Present Illness: 62 year old female with a pmhx of dm on insulin, htn, hld, and lung mass presenting with weakness and nausea with elevated glucose levels. Says her insulin pump was not working. No chest pain, dyspnea, or palpitations noted. No pnd, orthopnea, or edema. Baseline exercise tolerance 1 1/2 blocks. Was noted to be in DKA with SUSAN Afib with VR 149bpm CT chest with increasing lung mass. Echocardiogram with normal LVEF, mod-sev TR, mod pulm htn. - Current Medication List Current Medications: Active Medications Acetaminophen (Tylenol -) 650 mg PO Q6H PRN PRN Reason: FEVER OR PAIN Last Admin: 06/16/17 14:53 Dose: 650 mg Albuterol/Ipratropium (Duoneb -) 1 amp NEB Q6H PRN PRN Reason: SHORTNESS OF BREATH Last Admin: 06/18/17 17:31 Dose: 1 amp Atorvastatin Calcium (Lipitor -) 10 mg PO HS [facility] Last Admin: 06/19/17 22:17 Dose: 10 mg Diltiazem HCl (Cardizem -) 30 mg PO Q6HPO [facility] Last Admin: 06/20/17 06:33 Dose: 30 mg Heparin Sodium (Porcine) (Heparin -) 5,000 unit SQ TID [facility] Last Admin: 06/19/17 06:37 Dose: 5,000 unit Insulin Aspart (Novolog Vial Sliding Scale -) 1 vial SQ Q4H [facility] PRN Reason: Protocol Last Admin: 06/20/17 09:20 Dose: Not Given Insulin Detemir (Levemir Vial) 20 units SQ AM [facility] Last Admin: 06/20/17 06:32 Dose: Not Given Insulin Detemir (Levemir Vial) 15 units SQ HS [facility] Last Admin: 06/19/17 22:17 Dose: 15 units Nicotine (Nicoderm Patch -) 14 mg TD DAILY [facility] Last Admin: 06/19/17 09:53 Dose: 14 mg Ondansetron HCl (Zofran Injection) 4 mg IVPUSH Q6H PRN PRN Reason: NAUSEA AND/OR VOMITING Pantoprazole Sodium (Protonix -) 40 mg PO DAILY [facility] Last Admin: 06/19/17 11:16 Dose: 40 mg Ramipril (Altace -) 5 mg PO DAILY [facility] Last Admin: 06/19/17 12:59 Dose: 5 mg - Objective Vital Signs: Vital Signs Temperature 98.3 F 06/20/17 09:00 Pulse Rate 80 06/20/17 09:00 Respiratory Rate 20 06/20/17 09:00 Blood Pressure 144/87 06/20/17 09:00 O2 Sat by Pulse Oximetry (%) 98 06/20/17 09:00 Constitutional: Yes: No Distress Cardiovascular: Yes: Regular Rate and Rhythm, S1, S2 Respiratory: Yes: CTA Bilaterally Gastrointestinal: Yes: Normal Bowel Sounds, Soft Edema: No Labs: CBC, BMP 06/20/17 05:10 06/20/17 05:10 INR, PTT INR 0.99 (0.82-1.09) 06/20/17 05:10 Assessment/Plan 62 year old female with a pmhx of dm on insulin, htn, hld, and lung mass presenting with weakness and nausea with elevated glucose levels. Says her insulin pump was not working. No chest pain, dyspnea, or palpitations noted. No pnd, orthopnea, or edema. Baseline exercise tolerance 1 1/2 blocks. Was noted to be in DKA with SUSAN Afib with VR 149bpm CT chest with increasing lung mass. Echocardiogram with normal LVEF, mod-sev TR, mod pulm htn. 1) Afib -Likely exacerbated by DKA Cr now improved after IVF's and dka management -On diltiazem 30mg q6. No longer in afib and currently in sinus Would change diltiazem to long acting 180mg daily and can uptitrate further if needed CHADS VASC 3 score and anticoagulation would be indicated if not deemed contraindicated by primary team. Patient is planned for lung biopsy. If patient will not need further inpatient procedures would start NOAC such as apixaban 5mg po bid when deemed by primary team to be safe after lung biopsy and if mass is malignancy no worry for brain mets. If patient will be needing further procedures than instead of NOAC would use heparin while inpatient. 2) HTN Diltiazem started on ramipril. Room to uptitrate both if needed Please call with any questions
[2017-06-20] MEDS ORDERED: INSULIN (NOVOLOG) ASPART 100 UNITS/ML 10ML VIAL ONE (12:07)
[2017-06-20] MEDS: ACETAMINOPHEN 325 MG TABLET (FP) PO PRN (12:12)
[2017-06-20] MEDS: NICOTINE 14 MG/24 HOURS TOPICAL PATCH TD SCH (12:13)
[2017-06-20] MEDS: PANTOPRAZOLE 40 MG TABLET (FP) PO SCH (12:14)
[2017-06-20] MEDS: RAMIPRIL 5 MG CAPSULE (FP) PO SCH (12:14)
--- NOTE | 2017-06-20 13:02 | PN ---
Progress Note, Physician History of Present Illness: pulmonary alert,nad,-cp,-sob. pt s/p ct guided bx RLL mass,tolerated procedure well - Current Medication List Current Medications: Active Medications Acetaminophen (Tylenol -) 650 mg PO Q6H PRN PRN Reason: FEVER OR PAIN Last Admin: 06/20/17 12:12 Dose: 650 mg Albuterol/Ipratropium (Duoneb -) 1 amp NEB Q6H PRN PRN Reason: SHORTNESS OF BREATH Last Admin: 06/18/17 17:31 Dose: 1 amp Atorvastatin Calcium (Lipitor -) 10 mg PO HS [facility] Last Admin: 06/19/17 22:17 Dose: 10 mg Diltiazem HCl (Cardizem -) 30 mg PO Q6HPO [facility] Last Admin: 06/20/17 12:13 Dose: 30 mg Heparin Sodium (Porcine) (Heparin -) 5,000 unit SQ TID [facility] Last Admin: 06/19/17 06:37 Dose: 5,000 unit Insulin Aspart (Novolog Vial Sliding Scale -) 1 vial SQ ACHS [facility] PRN Reason: Protocol Last Admin: 06/20/17 12:35 Dose: 2 units Insulin Detemir (Levemir Vial) 20 units SQ AM [facility] Last Admin: 06/20/17 06:32 Dose: Not Given Insulin Detemir (Levemir Vial) 15 units SQ HS [facility] Last Admin: 06/19/17 22:17 Dose: 15 units Nicotine (Nicoderm Patch -) 14 mg TD DAILY [facility] Last Admin: 06/20/17 12:13 Dose: 14 mg Ondansetron HCl (Zofran Injection) 4 mg IVPUSH Q6H PRN PRN Reason: NAUSEA AND/OR VOMITING Pantoprazole Sodium (Protonix -) 40 mg PO DAILY [facility] Last Admin: 06/20/17 12:14 Dose: 40 mg Ramipril (Altace -) 5 mg PO DAILY [facility] Last Admin: 06/20/17 12:14 Dose: 5 mg - Objective Vital Signs: Vital Signs Temperature 98.3 F 06/20/17 09:00 Pulse Rate 90 06/20/17 11:29 Respiratory Rate 14 06/20/17 11:29 Blood Pressure 171/93 06/20/17 11:29 O2 Sat by Pulse Oximetry (%) 100 06/20/17 11:29 Constitutional: Yes: Well Nourished, Calm Eyes: Yes: WNL HENT: Yes: WNL Neck: Yes: WNL Cardiovascular: Yes: Pulse Irregular, S1, S2 Respiratory: Yes: Diminished (few crackles r base) Gastrointestinal: Yes: Normal Bowel Sounds, Soft Extremities: Yes: WNL Edema: No Labs: CBC, BMP 06/20/17 05:10 06/20/17 05:10 INR, PTT INR 0.99 (0.82-1.09) 06/20/17 05:10 Problem List - Problems (1) Atrial fibrillation Code(s): I48.91 - UNSPECIFIED ATRIAL FIBRILLATION (2) DKA (diabetic ketoacidosis) Code(s): E13.10 - OTH DIABETES MELLITUS WITH KETOACIDOSIS WITHOUT COMA (3) SUSAN (acute kidney injury) Code(s): N17.9 - ACUTE KIDNEY FAILURE, UNSPECIFIED (4) HLD (hyperlipidemia) Code(s): E78.5 - HYPERLIPIDEMIA, UNSPECIFIED (5) HTN (hypertension) Code(s): I10 - ESSENTIAL (PRIMARY) HYPERTENSION (6) Lung mass Code(s): R91.8 - OTHER NONSPECIFIC ABNORMAL FINDING OF LUNG FIELD (7) Shortness of breath Code(s): R06.02 - SHORTNESS OF BREATH Assessment/Plan SSESSMENT AND PLAN: Diabetic Ketoacidosis improved New Onset Atrial Fibrillation Acute on Chronic Renal Failure improving HTN Lung Mass Smoker - monitor urine output, creatinine - monitor BGM - glucose control - DVT prophylaxis - check path DR LEONE
--- NOTE | 2017-06-20 14:31 | PN ---
Progress Note, Physician History of Present Illness: Pt seen and examined at bedside. She is awake and alert. She denies shortness of breath. - Current Medication List Current Medications: Active Medications Acetaminophen (Tylenol -) 650 mg PO Q6H PRN PRN Reason: FEVER OR PAIN Last Admin: 06/20/17 12:12 Dose: 650 mg Albuterol/Ipratropium (Duoneb -) 1 amp NEB Q6H PRN PRN Reason: SHORTNESS OF BREATH Last Admin: 06/18/17 17:31 Dose: 1 amp Atorvastatin Calcium (Lipitor -) 10 mg PO HS [facility] Last Admin: 06/19/17 22:17 Dose: 10 mg Diltiazem HCl (Cardizem -) 30 mg PO Q6HPO [facility] Last Admin: 06/20/17 12:13 Dose: 30 mg Heparin Sodium (Porcine) (Heparin -) 5,000 unit SQ TID [facility] Last Admin: 06/19/17 06:37 Dose: 5,000 unit Insulin Aspart (Novolog Vial Sliding Scale -) 1 vial SQ ACHS [facility] PRN Reason: Protocol Last Admin: 06/20/17 12:35 Dose: 2 units Insulin Detemir (Levemir Vial) 20 units SQ AM [facility] Last Admin: 06/20/17 06:32 Dose: Not Given Insulin Detemir (Levemir Vial) 15 units SQ HS [facility] Last Admin: 06/19/17 22:17 Dose: 15 units Nicotine (Nicoderm Patch -) 14 mg TD DAILY [facility] Last Admin: 06/20/17 12:13 Dose: 14 mg Ondansetron HCl (Zofran Injection) 4 mg IVPUSH Q6H PRN PRN Reason: NAUSEA AND/OR VOMITING Pantoprazole Sodium (Protonix -) 40 mg PO DAILY [facility] Last Admin: 06/20/17 12:14 Dose: 40 mg Ramipril (Altace -) 5 mg PO DAILY [facility] Last Admin: 06/20/17 12:14 Dose: 5 mg - Objective Vital Signs: Vital Signs Temperature 98.3 F 06/20/17 09:00 Pulse Rate 90 06/20/17 11:29 Respiratory Rate 14 06/20/17 11:29 Blood Pressure 171/93 06/20/17 11:29 O2 Sat by Pulse Oximetry (%) 100 06/20/17 11:29 Constitutional: Yes: Calm Eyes: Yes: Conjunctiva Clear HENT: Yes: Atraumatic Neck: Yes: Supple Cardiovascular: Yes: S1, S2 Respiratory: Yes: CTA Bilaterally Gastrointestinal: Yes: Soft Genitourinary: Yes: WNL Musculoskeletal: Yes: WNL Extremities: Yes: WNL Edema: No Neurological: Yes: Oriented Labs: CBC, BMP 06/20/17 05:10 06/20/17 05:10 INR, PTT INR 0.99 (0.82-1.09) 06/20/17 05:10 Problem List - Problems (1) DKA (diabetic ketoacidosis) Code(s): E13.10 - OTH DIABETES MELLITUS WITH KETOACIDOSIS WITHOUT COMA (2) SUSAN (acute kidney injury) Code(s): N17.9 - ACUTE KIDNEY FAILURE, UNSPECIFIED Assessment/Plan Current Medications Generic Name Dose Route Start Last Admin Trade Name Freq PRN Reason Stop Dose Admin Acetaminophen 650 mg 06/16/17 07:27 06/20/17 12:12 Tylenol - PO 650 mg Q6H PRN Administration FEVER OR PAIN Albuterol/Ipratropium 1 amp 06/16/17 16:26 06/18/17 17:31 Duoneb - NEB 1 amp Q6H PRN Administration SHORTNESS OF BREATH Atorvastatin Calcium 10 mg 06/16/17 22:00 06/19/17 22:17 Lipitor - PO 10 mg HS [facility] Administration Diltiazem HCl 30 mg 06/17/17 12:30 06/20/17 12:13 Cardizem - PO 30 mg Q6HPO [facility] Administration Heparin Sodium (Porcine) 5,000 unit 06/16/17 14:00 06/19/17 06:37 Heparin - SQ 5,000 unit TID [facility] Administration Insulin Aspart 1 vial 06/20/17 16:30 06/20/17 12:35 Novolog Vial Sliding Scale - SQ 2 units ACHS [facility] Administration Protocol Insulin Detemir 20 units 06/19/17 07:00 06/20/17 06:32 Levemir Vial SQ Not Given AM [facility] Insulin Detemir 15 units 06/19/17 22:00 06/19/17 22:17 Levemir Vial SQ 15 units HS [facility] Administration Nicotine 14 mg 06/18/17 12:00 06/20/17 12:13 Nicoderm Patch - TD 14 mg DAILY [facility] Administration Ondansetron HCl 4 mg 06/19/17 17:03 Zofran Injection IVPUSH Q6H PRN NAUSEA AND/OR VOMITING Pantoprazole Sodium 40 mg 06/16/17 19:00 06/20/17 12:14 Protonix - PO 40 mg DAILY [facility] Administration Ramipril 5 mg 06/19/17 11:45 06/20/17 12:14 Altace - PO 5 mg DAILY [facility] Administration Impression 1. CKD with acute component 2. hyperkalemia 3. DKA 4. htn 5. chol 6. SUSAN 7. a-fib Plan - renal function stabilizing - will see in office for workup - discussed plan with pt and her - smoking cessation - will follow
[2017-06-20] MEDS: ATORVASTATIN CA 10 MG TABLET (FP) PO SCH (22:14)
[2017-06-20] MEDS: LORazepam 1 MG TABLET PO PRN (23:10)
[2017-06-21] MEDS: dilTIAZem HCL 30 MG TABLET (FP) PO SCH ×3 (06:19→18:14)
[2017-06-21] MEDS: HEPARIN NA (PORCINE) 5,000 UNITS/ML 1ML VIAL SQ SCH ×3 (06:19→21:54)
[2017-06-21] MEDS: INSULIN DETEMIR 100 UNITS/ML MDV SQ SCH ×2 (06:19→21:54)
[2017-06-21] MEDS: INSULIN SLIDING SCALE (NOVOLOG) 1 VIAL SQ SCH ×4 (06:24→21:55)
[2017-06-21] MEDS: RAMIPRIL 5 MG CAPSULE (FP) PO SCH (10:18)
[2017-06-21] MEDS: PANTOPRAZOLE 40 MG TABLET (FP) PO SCH (10:18)
[2017-06-21] MEDS: NICOTINE 14 MG/24 HOURS TOPICAL PATCH TD SCH (10:19)
--- NOTE | 2017-06-21 11:25 | PN ---
Progress Note, Physician History of Present Illness: C/O SOB S/P CT GUIDED LUNG BIOPSY PNEUMOTHORAX - Current Medication List Current Medications: Active Medications Acetaminophen (Tylenol -) 650 mg PO Q6H PRN PRN Reason: FEVER OR PAIN Last Admin: 06/20/17 12:12 Dose: 650 mg Albuterol/Ipratropium (Duoneb -) 1 amp NEB Q6H PRN PRN Reason: SHORTNESS OF BREATH Last Admin: 06/18/17 17:31 Dose: 1 amp Atorvastatin Calcium (Lipitor -) 10 mg PO HS [facility] Last Admin: 06/20/17 22:14 Dose: 10 mg Diltiazem HCl (Cardizem -) 30 mg PO Q6HPO [facility] Last Admin: 06/21/17 06:19 Dose: 30 mg Heparin Sodium (Porcine) (Heparin -) 5,000 unit SQ TID [facility] Last Admin: 06/21/17 06:19 Dose: 5,000 unit Insulin Aspart (Novolog Vial Sliding Scale -) 1 vial SQ ACHS [facility] PRN Reason: Protocol Last Admin: 06/21/17 06:24 Dose: Not Given Insulin Detemir (Levemir Vial) 20 units SQ AM [facility] Last Admin: 06/21/17 06:19 Dose: 20 units Insulin Detemir (Levemir Vial) 15 units SQ HS [facility] Last Admin: 06/20/17 22:14 Dose: 15 units Lorazepam (Ativan -) 1 mg PO HS PRN Last Admin: 06/20/17 23:10 Dose: 1 mg Nicotine (Nicoderm Patch -) 14 mg TD DAILY [facility] Last Admin: 06/21/17 10:19 Dose: 14 mg Ondansetron HCl (Zofran Injection) 4 mg IVPUSH Q6H PRN PRN Reason: NAUSEA AND/OR VOMITING Pantoprazole Sodium (Protonix -) 40 mg PO DAILY [facility] Last Admin: 06/21/17 10:18 Dose: 40 mg Ramipril (Altace -) 5 mg PO DAILY [facility] Last Admin: 06/21/17 10:18 Dose: 5 mg - Objective Vital Signs: Vital Signs Temperature 97.8 F 06/21/17 09:00 Pulse Rate 92 H 06/21/17 09:00 Respiratory Rate 20 06/21/17 09:00 Blood Pressure 162/70 06/21/17 09:00 O2 Sat by Pulse Oximetry (%) 99 06/20/17 21:00 Cardiovascular: Yes: Regular Rate and Rhythm Respiratory: Yes: Diminished, On Nasal O2 Gastrointestinal: Yes: Normal Bowel Sounds, Soft Labs: CBC, BMP 06/20/17 05:10 06/20/17 05:10 INR, PTT INR 0.99 (0.82-1.09) 06/20/17 05:10 Problem List - Problems (1) DKA (diabetic ketoacidosis) Assessment/Plan: DKA, resolved -Endocrine consulted -BGM q4h -Levemir 20U BID + ISS Code(s): E13.10 - OTH DIABETES MELLITUS WITH KETOACIDOSIS WITHOUT COMA (2) HTN (hypertension) Code(s): I10 - ESSENTIAL (PRIMARY) HYPERTENSION (3) Lung mass Assessment/Plan: -CT guided biopsy -AWAIT PATH Code(s): R91.8 - OTHER NONSPECIFIC ABNORMAL FINDING OF LUNG FIELD (4) Shortness of breath Assessment/Plan: F/U CXR Code(s): R06.02 - SHORTNESS OF BREATH (5) Atrial fibrillation Assessment/Plan: start diltiazem 30mg PO q6h - Cardiology consult noted -START AC AFTER BIOPSY--ELIQUIS 5 MG BID -ECHO Code(s): I48.91 - UNSPECIFIED ATRIAL FIBRILLATION (6) Pneumothorax Assessment/Plan: F/U CXR Code(s): J93.9 - PNEUMOTHORAX, UNSPECIFIED
--- NOTE | 2017-06-21 12:34 | PN ---
Progress Note (short form) - Note Progress Note: Still with pain at the biopsy site. Breathing feels ok otherwise. CXR : persistent Right PTX: appears the same size Intake & Output 06/18/17 06/19/17 06/20/17 06/21/17 23:59 23:59 23:59 23:59 Intake Total 1250 550 450 Output Total 700 2 Balance 550 550 448 Last Vital Signs Temp Pulse Resp BP Pulse Ox 97.8 F 92 H 20 162/70 97 06/21/17 09:00 06/21/17 09:00 06/21/17 09:00 06/21/17 09:00 06/21/17 09:00 Active Medications Acetaminophen (Tylenol -) 650 mg PO Q6H PRN PRN Reason: FEVER OR PAIN Last Admin: 06/20/17 12:12 Dose: 650 mg Albuterol/Ipratropium (Duoneb -) 1 amp NEB Q6H PRN PRN Reason: SHORTNESS OF BREATH Last Admin: 06/18/17 17:31 Dose: 1 amp Atorvastatin Calcium (Lipitor -) 10 mg PO HS [facility] Last Admin: 06/20/17 22:14 Dose: 10 mg Diltiazem HCl (Cardizem -) 30 mg PO Q6HPO [facility] Last Admin: 06/21/17 12:27 Dose: 30 mg Heparin Sodium (Porcine) (Heparin -) 5,000 unit SQ TID [facility] Last Admin: 06/21/17 06:19 Dose: 5,000 unit Insulin Aspart (Novolog Vial Sliding Scale -) 1 vial SQ ACHS [facility] PRN Reason: Protocol Last Admin: 06/21/17 11:49 Dose: Not Given Insulin Detemir (Levemir Vial) 20 units SQ AM [facility] Last Admin: 06/21/17 06:19 Dose: 20 units Insulin Detemir (Levemir Vial) 15 units SQ HS [facility] Last Admin: 06/20/17 22:14 Dose: 15 units Lorazepam (Ativan -) 1 mg PO HS PRN Last Admin: 06/20/17 23:10 Dose: 1 mg Nicotine (Nicoderm Patch -) 14 mg TD DAILY [facility] Last Admin: 06/21/17 10:19 Dose: 14 mg Ondansetron HCl (Zofran Injection) 4 mg IVPUSH Q6H PRN PRN Reason: NAUSEA AND/OR VOMITING Pantoprazole Sodium (Protonix -) 40 mg PO DAILY [facility] Last Admin: 06/21/17 10:18 Dose: 40 mg Ramipril (Altace -) 5 mg PO DAILY [facility] Last Admin: 06/21/17 10:18 Dose: 5 mg Constitutional: Yes: Mildly uncomfortable due to pain, NAD Eyes: Yes: WNL HENT: Yes: WNL Neck: Yes: WNL Cardiovascular: Yes: Pulse Irregular, S1, S2 Respiratory: Yes: Diminished at the bases Gastrointestinal: Yes: Normal Bowel Sounds, Soft Extremities: Yes: WNL Edema: No Labs: Laboratory Results - last 24 hr 06/20/17 06/20/17 06/20/17 12:10 14:35 16:38 POC Glucometer 233 316 372 06/20/17 06/21/17 06/21/17 20:58 05:54 11:33 POC Glucometer 384 143 125 Assessment/Plan Right PTX S/P right lung mass biopsy Diabetic Ketoacidosis improved New Onset Atrial Fibrillation Acute on Chronic Renal Failure improving HTN Lung Mass Smoker - Incentive Spirometry - Motrin for pain - monitor BGM - glucose control - DVT prophylaxis - Check path - CXR in the AM - Supplemental O2 Dr Kaplan
[2017-06-21] MEDS: ACETAMINOPHEN 325 MG TABLET (FP) PO PRN (13:32)
--- NOTE | 2017-06-21 13:48 | PN ---
Progress Note, Physician History of Present Illness: Pt seen and examined at bedside. She is awake and alert. She still complains of shortness of breath. - Current Medication List Current Medications: Active Medications Acetaminophen (Tylenol -) 650 mg PO Q6H PRN PRN Reason: FEVER OR PAIN Last Admin: 06/21/17 13:32 Dose: 650 mg Albuterol/Ipratropium (Duoneb -) 1 amp NEB Q6H PRN PRN Reason: SHORTNESS OF BREATH Last Admin: 06/18/17 17:31 Dose: 1 amp Atorvastatin Calcium (Lipitor -) 10 mg PO HS [facility] Last Admin: 06/20/17 22:14 Dose: 10 mg Diltiazem HCl (Cardizem -) 30 mg PO Q6HPO [facility] Last Admin: 06/21/17 12:27 Dose: 30 mg Heparin Sodium (Porcine) (Heparin -) 5,000 unit SQ TID [facility] Last Admin: 06/21/17 13:33 Dose: 5,000 unit Insulin Aspart (Novolog Vial Sliding Scale -) 1 vial SQ ACHS [facility] PRN Reason: Protocol Last Admin: 06/21/17 11:49 Dose: Not Given Insulin Detemir (Levemir Vial) 20 units SQ AM [facility] Last Admin: 06/21/17 06:19 Dose: 20 units Insulin Detemir (Levemir Vial) 15 units SQ HS [facility] Last Admin: 06/20/17 22:14 Dose: 15 units Lorazepam (Ativan -) 1 mg PO HS PRN Last Admin: 06/20/17 23:10 Dose: 1 mg Nicotine (Nicoderm Patch -) 14 mg TD DAILY [facility] Last Admin: 06/21/17 10:19 Dose: 14 mg Ondansetron HCl (Zofran Injection) 4 mg IVPUSH Q6H PRN PRN Reason: NAUSEA AND/OR VOMITING Pantoprazole Sodium (Protonix -) 40 mg PO DAILY [facility] Last Admin: 06/21/17 10:18 Dose: 40 mg Ramipril (Altace -) 5 mg PO DAILY [facility] Last Admin: 06/21/17 10:18 Dose: 5 mg - Objective Vital Signs: Vital Signs Temperature 97.8 F 06/21/17 09:00 Pulse Rate 92 H 06/21/17 09:00 Respiratory Rate 20 06/21/17 09:00 Blood Pressure 162/70 06/21/17 09:00 O2 Sat by Pulse Oximetry (%) 97 06/21/17 09:00 Constitutional: Yes: Calm Eyes: Yes: Conjunctiva Clear HENT: Yes: Atraumatic Neck: Yes: Supple Cardiovascular: Yes: S1, S2 Respiratory: Yes: On Nasal O2 Gastrointestinal: Yes: Soft Genitourinary: Yes: WNL Musculoskeletal: Yes: WNL Edema: No Neurological: Yes: Oriented Psychiatric: Yes: Oriented Labs: CBC, BMP 06/20/17 05:10 06/20/17 05:10 INR, PTT INR 0.99 (0.82-1.09) 06/20/17 05:10 Problem List - Problems (1) DKA (diabetic ketoacidosis) Code(s): E13.10 - OTH DIABETES MELLITUS WITH KETOACIDOSIS WITHOUT COMA (2) SUSAN (acute kidney injury) Code(s): N17.9 - ACUTE KIDNEY FAILURE, UNSPECIFIED Assessment/Plan Current Medications Generic Name Dose Route Start Last Admin Trade Name Freq PRN Reason Stop Dose Admin Acetaminophen 650 mg 06/16/17 07:27 06/21/17 13:32 Tylenol - PO 650 mg Q6H PRN Administration FEVER OR PAIN Albuterol/Ipratropium 1 amp 06/16/17 16:26 06/18/17 17:31 Duoneb - NEB 1 amp Q6H PRN Administration SHORTNESS OF BREATH Atorvastatin Calcium 10 mg 06/16/17 22:00 06/20/17 22:14 Lipitor - PO 10 mg HS [facility] Administration Diltiazem HCl 30 mg 06/17/17 12:30 06/21/17 12:27 Cardizem - PO 30 mg Q6HPO [facility] Administration Heparin Sodium (Porcine) 5,000 unit 06/16/17 14:00 06/21/17 13:33 Heparin - SQ 5,000 unit TID [facility] Administration Insulin Aspart 1 vial 06/20/17 16:30 06/21/17 11:49 Novolog Vial Sliding Scale - SQ Not Given ACHS [facility] Protocol Insulin Detemir 20 units 06/19/17 07:00 06/21/17 06:19 Levemir Vial SQ 20 units AM [facility] Administration Insulin Detemir 15 units 06/19/17 22:00 06/20/17 22:14 Levemir Vial SQ 15 units HS [facility] Administration Lorazepam 1 mg 06/20/17 22:41 06/20/17 23:10 Ativan - PO 1 mg HS PRN Administration Nicotine 14 mg 06/18/17 12:00 06/21/17 10:19 Nicoderm Patch - TD 14 mg DAILY [facility] Administration Ondansetron HCl 4 mg 06/19/17 17:03 Zofran Injection IVPUSH Q6H PRN NAUSEA AND/OR VOMITING Pantoprazole Sodium 40 mg 06/16/17 19:00 06/21/17 10:18 Protonix - PO 40 mg DAILY [facility] Administration Ramipril 5 mg 06/19/17 11:45 06/21/17 10:18 Altace - PO 5 mg DAILY [facility] Administration Impression 1. CKD with acute component 2. hyperkalemia 3. DKA 4. htn 5. chol 6. SUSAN 7. a-fib 8. lung mass Plan - check bmp in am - avoid nsaids - pulmonary input appreciated - discussed plan with pt and her - smoking cessation - will need outpt follow up - lung mass workup - will follow
[2017-06-21] MEDS ORDERED: INSULIN DETEMIR 100 UNITS/ML MDV SQ SCH (16:21)
[2017-06-21] MEDS: LORazepam 1 MG TABLET PO PRN (21:54)
[2017-06-21] MEDS: ATORVASTATIN CA 10 MG TABLET (FP) PO SCH (21:54)
[2017-06-22] MEDS: dilTIAZem HCL 30 MG TABLET (FP) PO SCH ×5 (00:07→22:59)
[2017-06-22] MEDS: INSULIN SLIDING SCALE (NOVOLOG) 1 VIAL SQ SCH ×4 (06:48→21:19)
[2017-06-22] MEDS: HEPARIN NA (PORCINE) 5,000 UNITS/ML 1ML VIAL SQ SCH (06:49)
--- NOTE | 2017-06-22 09:06 | PN ---
Progress Note, Physician History of Present Illness: C/O LESS SOB S/P CT GUIDED LUNG BIOPSY PNEUMOTHORAX - Current Medication List Current Medications: Active Medications Acetaminophen (Tylenol -) 650 mg PO Q6H PRN PRN Reason: FEVER OR PAIN Last Admin: 06/21/17 13:32 Dose: 650 mg Atorvastatin Calcium (Lipitor -) 10 mg PO HS [facility] Last Admin: 06/21/17 21:54 Dose: 10 mg Diltiazem HCl (Cardizem -) 30 mg PO Q6HPO [facility] Last Admin: 06/22/17 06:49 Dose: 30 mg Heparin Sodium (Porcine) (Heparin -) 5,000 unit SQ TID [facility] Last Admin: 06/22/17 06:49 Dose: 5,000 unit Insulin Aspart (Novolog Vial Sliding Scale -) 1 vial SQ ACHS [facility] PRN Reason: Protocol Last Admin: 06/22/17 06:48 Dose: Not Given Insulin Detemir (Levemir Vial) 15 units SQ HS [facility] Last Admin: 06/21/17 21:54 Dose: 15 units Insulin Detemir (Levemir Vial) 25 units SQ AM [facility] 234 [facility] Last Admin: 06/22/17 06:50 Dose: 25 units Lorazepam (Ativan -) 1 mg PO HS [facility]N Last Admin: 06/21/17 21:54 Dose: 1 mg Nicotine (Nicoderm Patch -) 14 mg TD DAILY [facility] Last Admin: 06/21/17 10:19 Dose: 14 mg Ondansetron HCl (Zofran Injection) 4 mg IVPUSH Q6H PRN PRN Reason: NAUSEA AND/OR VOMITING Pantoprazole Sodium (Protonix -) 40 mg PO DAILY [facility] Last Admin: 06/21/17 10:18 Dose: 40 mg Ramipril (Altace -) 5 mg PO DAILY [facility] Last Admin: 06/21/17 10:18 Dose: 5 mg - Objective Vital Signs: Vital Signs Temperature 97.7 F 06/22/17 06:00 Pulse Rate 82 06/22/17 06:00 Respiratory Rate 20 06/22/17 06:00 Blood Pressure 160/85 06/22/17 06:00 O2 Sat by Pulse Oximetry (%) 100 06/21/17 21:00 Cardiovascular: Yes: Regular Rate and Rhythm Respiratory: Yes: Regular, CTA Bilaterally Gastrointestinal: Yes: Normal Bowel Sounds, Soft Labs: CBC, BMP 06/20/17 05:10 06/20/17 05:10 INR, PTT INR 0.99 (0.82-1.09) 06/20/17 05:10 Problem List - Problems (1) DKA (diabetic ketoacidosis) Code(s): E13.10 - OTH DIABETES MELLITUS WITH KETOACIDOSIS WITHOUT COMA (2) HTN (hypertension) Code(s): I10 - ESSENTIAL (PRIMARY) HYPERTENSION (3) Lung mass Code(s): R91.8 - OTHER NONSPECIFIC ABNORMAL FINDING OF LUNG FIELD (4) Shortness of breath Code(s): R06.02 - SHORTNESS OF BREATH (5) Atrial fibrillation Code(s): I48.91 - UNSPECIFIED ATRIAL FIBRILLATION (6) Pneumothorax Code(s): J93.9 - PNEUMOTHORAX, UNSPECIFIED Assessment/Plan 1. new onset Afib (CHADVASC score 3) -start diltiazem 30mg PO q6h - Cardiology consult noted -START AC AFTER BIOPSY--ELIQUIS 5 MG BID -ECHO 2. HTN - on diltiazem 3. HLD -Continue home lipitor 4. IDDM DKA, resolved -Endocrine consulted -BGM q4h -Levemir 20U BID + ISS 5. lung mass -CT guided biopsy 6. CKD (baseline Cr unknown) -Nephrology consulted -monitor urine output, creatinine 7. tobacco addiction -14mg Nicotine patch 8. PPX -DVT - Heparin 5000U SQ TID -GI - pantoprazole 40mg PO qd
[2017-06-22 09:21] LABS: BASOPHIL 0.7 % (0-2.0); EOSINOPHIL 4.5 % (0-4.5); MCH 27.1 pg (25.7-33.7); MCHC 32.4 g/dl (32.0-36.0); MEAN CELL VOLUME 83.5 fl (80-96); MEAN PLT VOLUME 6.2 fl (7.5-11.1); NEUTROPHILS 64.1 % (42.8-82.8); PLATELET COUNT 455 K/MM3 (134-434); RDW 15.6 % (11.6-15.6); WHITE BLOOD COUNT 8.5 K/mm3 (4.0-10.0)
[2017-06-22] MEDS: PANTOPRAZOLE 40 MG TABLET (FP) PO SCH (09:24)
[2017-06-22] MEDS: ACETAMINOPHEN 325 MG TABLET (FP) PO PRN ×2 (09:24→17:21)
[2017-06-22] MEDS: NICOTINE 14 MG/24 HOURS TOPICAL PATCH TD SCH (09:25)
[2017-06-22] MEDS: RAMIPRIL 5 MG CAPSULE (FP) PO SCH (09:25)
[2017-06-22 10:04] LABS: ALBUMIN 2.9 g/dl (3.4-5.0); ALK PHOS 124 U/L (45-117); ANION GAP 8 (8-16); BILIRUBIN,TOTAL 0.4 mg/dL (0.2-1.0); CALCIUM 9.1 mg/dL (8.5-10.1); CO2 28 mmol/L (21-32); CREATININE 1.7 mg/dL (0.55-1.02); GLUCOSE,RANDOM 204 mg/dL (74-106); SGOT/AST 93 U/L (15-37); SGPT/ALT 71 U/L (12-78); TOT PROT 6.3 g/dl (6.4-8.2)
[2017-06-22] MEDS: APIXABAN 5 MG TABLET PO SCH ×2 (12:01→21:19)
--- NOTE | 2017-06-22 12:03 | PN ---
Progress Note (short form) - Note Progress Note: Less pain at the biopsy site today. Breathing feels a little better. CXR : persistent Right apical PTX: appears the same size Intake & Output 06/19/17 06/20/17 06/21/17 06/22/17 23:59 23:59 23:59 23:59 Intake Total 550 450 350 Output Total 2 Balance 550 448 350 Last Vital Signs Temp Pulse Resp BP Pulse Ox 98.8 F 96 H 18 154/79 100 06/22/17 10:00 06/22/17 10:00 06/22/17 10:00 06/22/17 10:00 06/21/17 21:00 Active Medications Acetaminophen (Tylenol -) 650 mg PO Q6H PRN PRN Reason: FEVER OR PAIN Last Admin: 06/22/17 09:24 Dose: 650 mg Apixaban (Eliquis -) 5 mg PO BID [facility] Last Admin: 06/22/17 12:01 Dose: 5 mg Atorvastatin Calcium (Lipitor -) 10 mg PO HS [facility] Last Admin: 06/21/17 21:54 Dose: 10 mg Diltiazem HCl (Cardizem -) 30 mg PO Q6HPO [facility] Last Admin: 06/22/17 12:01 Dose: 30 mg Insulin Aspart (Novolog Vial Sliding Scale -) 1 vial SQ ACHS [facility] PRN Reason: Protocol Last Admin: 06/22/17 12:01 Dose: 4 units Insulin Detemir (Levemir Vial) 15 units SQ HS [facility] Last Admin: 06/21/17 21:54 Dose: 15 units Insulin Detemir (Levemir Vial) 25 units SQ AM [facility] Last Admin: 06/22/17 06:50 Dose: 25 units Lorazepam (Ativan -) 1 mg PO HS PRN Last Admin: 06/21/17 21:54 Dose: 1 mg Nicotine (Nicoderm Patch -) 14 mg TD DAILY [facility] Last Admin: 06/22/17 09:25 Dose: 14 mg Ondansetron HCl (Zofran Injection) 4 mg IVPUSH Q6H PRN PRN Reason: NAUSEA AND/OR VOMITING Pantoprazole Sodium (Protonix -) 40 mg PO DAILY [facility] Last Admin: 06/22/17 09:24 Dose: 40 mg Ramipril (Altace -) 5 mg PO DAILY [facility] Last Admin: 06/22/17 09:25 Dose: 5 mg Constitutional: Yes: NAD Eyes: Yes: WNL HENT: Yes: WNL Neck: Yes: WNL Cardiovascular: Yes: Pulse Irregular, S1, S2 Respiratory: Yes: Diminished at the bases Gastrointestinal: Yes: Normal Bowel Sounds, Soft Extremities: Yes: WNL Edema: No Labs: Laboratory Results - last 24 hr 06/21/17 06/21/17 06/22/17 17:10 21:23 06:05 WBC RBC Hgb Hct MCV MCH MCHC RDW Plt Count MPV Neutrophils % Lymphocytes % Monocytes % Eosinophils % Basophils % Sodium Potassium Chloride Carbon Dioxide Anion Gap BUN Creatinine Creat Clearance w eGFR POC Glucometer 380 355 119 Random Glucose Calcium Total Bilirubin AST ALT Alkaline Phosphatase Total Protein Albumin 06/22/17 06/22/17 09:00 09:00 WBC 8.5 RBC 3.51 L Hgb 9.5 L Hct 29.3 L MCV 83.5 MCH 27.1 MCHC 32.4 RDW 15.6 Plt Count 455 H MPV 6.2 L Neutrophils % 64.1 Lymphocytes % 22.0 Monocytes % 8.7 Eosinophils % 4.5 Basophils % 0.7 Sodium 138 Potassium 4.3 Chloride 102 Carbon Dioxide 28 Anion Gap 8 BUN 22 H D Creatinine 1.7 H D Creat Clearance w eGFR 30.66 POC Glucometer Random Glucose 204 H D Calcium 9.1 Total Bilirubin 0.4 D AST 93 H D ALT 71 D Alkaline Phosphatase 124 H Total Protein 6.3 L Albumin 2.9 L Assessment/Plan Right PTX S/P right lung mass biopsy Diabetic Ketoacidosis improved New Onset Atrial Fibrillation Acute on Chronic Renal Failure improving HTN Lung Mass Smoker - Incentive Spirometry - Motrin for pain - monitor BGM - glucose control - DVT prophylaxis - Check path - CXR in the AM - Supplemental O2 Dr Kaplan
--- NOTE | 2017-06-22 16:50 | PN ---
Progress Note, Physician History of Present Illness: Pt seen and examined at bedside. She is awake and alert. She denies dysuria. - Current Medication List Current Medications: Active Medications Acetaminophen (Tylenol -) 650 mg PO Q6H PRN PRN Reason: FEVER OR PAIN Last Admin: 06/22/17 09:24 Dose: 650 mg Apixaban (Eliquis -) 5 mg PO BID [facility] Last Admin: 06/22/17 12:01 Dose: 5 mg Atorvastatin Calcium (Lipitor -) 10 mg PO HS [facility] Last Admin: 06/21/17 21:54 Dose: 10 mg Diltiazem HCl (Cardizem -) 30 mg PO Q6HPO [facility] Last Admin: 06/22/17 12:01 Dose: 30 mg Insulin Aspart (Novolog Vial Sliding Scale -) 1 vial SQ ACHS [facility] PRN Reason: Protocol Last Admin: 06/22/17 12:01 Dose: 4 units Insulin Detemir (Levemir Vial) 15 units SQ HS [facility] Last Admin: 06/21/17 21:54 Dose: 15 units Insulin Detemir (Levemir Vial) 25 units SQ AM [facility] Last Admin: 06/22/17 06:50 Dose: 25 units Lorazepam (Ativan -) 1 mg PO HS PRN Last Admin: 06/21/17 21:54 Dose: 1 mg Nicotine (Nicoderm Patch -) 14 mg TD DAILY [facility] Last Admin: 06/22/17 09:25 Dose: 14 mg Ondansetron HCl (Zofran Injection) 4 mg IVPUSH Q6H PRN PRN Reason: NAUSEA AND/OR VOMITING Pantoprazole Sodium (Protonix -) 40 mg PO DAILY [facility] Last Admin: 06/22/17 09:24 Dose: 40 mg Ramipril (Altace -) 5 mg PO DAILY [facility] Last Admin: 06/22/17 09:25 Dose: 5 mg - Objective Vital Signs: Vital Signs Temperature 98.3 F 06/22/17 14:00 Pulse Rate 105 H 06/22/17 14:00 Respiratory Rate 18 06/22/17 14:00 Blood Pressure 119/87 06/22/17 14:00 O2 Sat by Pulse Oximetry (%) 100 06/22/17 09:00 Constitutional: Yes: Calm Eyes: Yes: Conjunctiva Clear HENT: Yes: Atraumatic Neck: Yes: Supple Cardiovascular: Yes: S1, S2 Respiratory: Yes: On Nasal O2 Gastrointestinal: Yes: Soft Genitourinary: Yes: WNL Extremities: Yes: WNL Edema: No Neurological: Yes: Oriented Psychiatric: Yes: Oriented Labs: CBC, BMP 06/22/17 09:00 06/22/17 09:00 INR, PTT INR 0.99 (0.82-1.09) 06/20/17 05:10 Problem List - Problems (1) DKA (diabetic ketoacidosis) Code(s): E13.10 - OTH DIABETES MELLITUS WITH KETOACIDOSIS WITHOUT COMA (2) SUSAN (acute kidney injury) Code(s): N17.9 - ACUTE KIDNEY FAILURE, UNSPECIFIED Assessment/Plan Current Medications Generic Name Dose Route Start Last Admin Trade Name Freq PRN Reason Stop Dose Admin Acetaminophen 650 mg 06/16/17 07:27 06/22/17 09:24 Tylenol - PO 650 mg Q6H PRN Administration FEVER OR PAIN Apixaban 5 mg 06/22/17 10:00 06/22/17 12:01 Eliquis - PO 5 mg BID CORDELIA Administration Atorvastatin Calcium 10 mg 06/16/17 22:00 06/21/17 21:54 Lipitor - PO 10 mg HS [facility]IA Administration Diltiazem HCl 30 mg 06/17/17 12:30 06/22/17 12:01 Cardizem - PO 30 mg Q6HPO CORDELIA Administration Insulin Aspart 1 vial 06/20/17 16:30 06/22/17 12:01 Novolog Vial Sliding Scale - SQ 4 units ACHS CORDELIA Administration Protocol Insulin Detemir 15 units 06/19/17 22:00 06/21/17 21:54 Levemir Vial SQ 15 units HS CORDELIA Administration Insulin Detemir 25 units 06/21/17 16:21 06/22/17 06:50 Levemir Vial SQ 25 units AM [facility]IA Administration Lorazepam 1 mg 06/20/17 22:41 06/21/17 21:54 Ativan - PO 1 mg HS PRN Administration Nicotine 14 mg 06/18/17 12:00 06/22/17 09:25 Nicoderm Patch - TD 14 mg DAILY [facility] Administration Ondansetron HCl 4 mg 06/19/17 17:03 Zofran Injection IVPUSH Q6H PRN NAUSEA AND/OR VOMITING Pantoprazole Sodium 40 mg 06/16/17 19:00 06/22/17 09:24 Protonix - PO 40 mg DAILY [facility] Administration Ramipril 5 mg 06/19/17 11:45 06/22/17 09:25 Altace - PO 5 mg DAILY [facility] Administration Impression 1. CKD with acute component 2. hyperkalemia 3. DKA 4. htn 5. chol 6. SUSAN 7. a-fib 8. lung mass Plan - creatinine is higher today - repeat labs in am - repeat ua with prt to scenario writer ration - avoid nsaids - follow up repeat cxr - smoking cessation - will need outpt follow up - lung mass workup - will follow
[2017-06-22 19:22] LABS: URINE APPEARANCE CLEAR; URINE BILIRUBIN NEGATIVE (NEGATIVE); URINE BLOOD NEGATIVE (NEGATIVE); URINE COLOR LTYELLOW; URINE GLUCOSE (UA) 3+ (NEGATIVE); URINE KETONE NEGATIVE (NEGATIVE); URINE NITRITE NEGATIVE (NEGATIVE); URINE UROBILINOGEN NEGATIVE mg/dL (0.2-1.0)
[2017-06-22 19:29] LABS: URINE PROTEIN 3+ (NEGATIVE); URINE RBC 1 /hpf (0-3); URINE WBC 1 /hpf (3-5)
[2017-06-22] MEDS: INSULIN DETEMIR 100 UNITS/ML MDV SQ SCH (21:19)
[2017-06-22] MEDS: ATORVASTATIN CA 10 MG TABLET (FP) PO SCH (21:19)
[2017-06-22 22:07] LABS: URINE LEUK ESTERASE Negative (NEGATIVE)
[2017-06-22] MEDS ORDERED: diphenhydrAMINE HCL 50 MG CAPSULE PO ONE (22:45)
[2017-06-22] MEDS ORDERED: diphenhydrAMINE HCL 25 MG CAPSULE (FP) PO ONE (22:45)
[2017-06-23] MEDS: dilTIAZem HCL 30 MG TABLET (FP) PO SCH ×3 (05:35→17:17)
[2017-06-23] MEDS ORDERED: INSULIN DETEMIR 100 UNITS/ML MDV SQ SCH (07:00)
[2017-06-23 07:15] LABS: ANION GAP 7 (8-16); CALCIUM 9.5 mg/dL (8.5-10.1); CO2 29 mmol/L (21-32); CREATININE 1.6 mg/dL (0.55-1.02); GLUCOSE,RANDOM 103 mg/dL (74-106)
[2017-06-23] MEDS: INSULIN SLIDING SCALE (NOVOLOG) 1 VIAL SQ SCH ×4 (07:16→22:20)
[2017-06-23] MEDS: NICOTINE 14 MG/24 HOURS TOPICAL PATCH TD SCH (10:32)
[2017-06-23] MEDS: ACETAMINOPHEN 325 MG TABLET (FP) PO PRN (10:33)
[2017-06-23] MEDS: PANTOPRAZOLE 40 MG TABLET (FP) PO SCH (10:33)
[2017-06-23] MEDS: RAMIPRIL 5 MG CAPSULE (FP) PO SCH (10:33)
[2017-06-23] MEDS: APIXABAN 5 MG TABLET PO SCH ×2 (10:34→22:20)
--- NOTE | 2017-06-23 11:07 | PN ---
Progress Note, Physician History of Present Illness: pulmonary alert,nad,-sob,-cp - Current Medication List Current Medications: Active Medications Acetaminophen (Tylenol -) 650 mg PO Q6H PRN PRN Reason: FEVER OR PAIN Last Admin: 06/23/17 10:33 Dose: 650 mg Apixaban (Eliquis -) 5 mg PO BID [facility] Last Admin: 06/23/17 10:34 Dose: 5 mg Atorvastatin Calcium (Lipitor -) 10 mg PO HS [facility] Last Admin: 06/22/17 21:19 Dose: 10 mg Diltiazem HCl (Cardizem -) 30 mg PO Q6HPO [facility] Last Admin: 06/23/17 05:35 Dose: 30 mg Insulin Aspart (Novolog Vial Sliding Scale -) 1 vial SQ ACHS [facility] PRN Reason: Protocol Last Admin: 06/23/17 07:16 Dose: Not Given Insulin Detemir (Levemir Vial) 15 units SQ HS [facility] Last Admin: 06/22/17 21:19 Dose: 15 units Insulin Detemir (Levemir Vial) 35 units SQ AM [facility] Last Admin: 06/23/17 07:16 Dose: Not Given Lorazepam (Ativan -) 1 mg PO HS PRN Last Admin: 06/21/17 21:54 Dose: 1 mg Nicotine (Nicoderm Patch -) 14 mg TD DAILY [facility] Last Admin: 06/23/17 10:32 Dose: 14 mg Ondansetron HCl (Zofran Injection) 4 mg IVPUSH Q6H PRN PRN Reason: NAUSEA AND/OR VOMITING Pantoprazole Sodium (Protonix -) 40 mg PO DAILY [facility] Last Admin: 06/23/17 10:33 Dose: 40 mg Ramipril (Altace -) 5 mg PO DAILY [facility] Last Admin: 06/23/17 10:33 Dose: 5 mg - Objective Vital Signs: Vital Signs Temperature 98.2 F 06/23/17 09:00 Pulse Rate 90 06/23/17 09:00 Respiratory Rate 16 06/23/17 09:00 Blood Pressure 130/78 06/23/17 09:00 O2 Sat by Pulse Oximetry (%) 100 06/22/17 20:17 Constitutional: Yes: Well Nourished, Calm Eyes: Yes: WNL HENT: Yes: WNL Neck: Yes: WNL Cardiovascular: Yes: Pulse Irregular, S1, S2 Respiratory: Yes: CTA Bilaterally Gastrointestinal: Yes: Normal Bowel Sounds, Soft Extremities: Yes: WNL Edema: No Labs: 06/23/17 06:30 INR, PTT INR 0.99 (0.82-1.09) 06/20/17 05:10 - ....Imaging Chest X-ray: Report Reviewed, Image Reviewed Problem List - Problems (1) Atrial fibrillation Code(s): I48.91 - UNSPECIFIED ATRIAL FIBRILLATION (2) DKA (diabetic ketoacidosis) Code(s): E13.10 - OTH DIABETES MELLITUS WITH KETOACIDOSIS WITHOUT COMA (3) SUSAN (acute kidney injury) Code(s): N17.9 - ACUTE KIDNEY FAILURE, UNSPECIFIED (4) HLD (hyperlipidemia) Code(s): E78.5 - HYPERLIPIDEMIA, UNSPECIFIED (5) HTN (hypertension) Code(s): I10 - ESSENTIAL (PRIMARY) HYPERTENSION (6) Lung mass Code(s): R91.8 - OTHER NONSPECIFIC ABNORMAL FINDING OF LUNG FIELD (7) Shortness of breath Code(s): R06.02 - SHORTNESS OF BREATH Assessment/Plan SSESSMENT AND PLAN: R Apical PTX s/p lung bx Diabetic Ketoacidosis improved New Onset Atrial Fibrillation Acute on Chronic Renal Failure improving HTN Lung Mass Smoker - monitor urine output, creatinine - monitor BGM - glucose control - DVT prophylaxis - check path - f/u chest x-ray DR LEONE
--- NOTE | 2017-06-23 13:17 | PN ---
Progress Note, Physician History of Present Illness: Pt seen and examined at bedside. She is awake and alert. She denies shortness of breath. - Current Medication List Current Medications: Active Medications Acetaminophen (Tylenol -) 650 mg PO Q6H PRN PRN Reason: FEVER OR PAIN Last Admin: 06/23/17 10:33 Dose: 650 mg Apixaban (Eliquis -) 5 mg PO BID [facility] Last Admin: 06/23/17 10:34 Dose: 5 mg Atorvastatin Calcium (Lipitor -) 10 mg PO HS [facility] Last Admin: 06/22/17 21:19 Dose: 10 mg Diltiazem HCl (Cardizem -) 30 mg PO Q6HPO [facility] Last Admin: 06/23/17 12:23 Dose: 30 mg Insulin Aspart (Novolog Vial Sliding Scale -) 1 vial SQ ACHS [facility] PRN Reason: Protocol Last Admin: 06/23/17 12:21 Dose: 6 units Insulin Detemir (Levemir Vial) 15 units SQ HS [facility] Last Admin: 06/22/17 21:19 Dose: 15 units Insulin Detemir (Levemir Vial) 35 units SQ AM [facility] Last Admin: 06/23/17 07:16 Dose: Not Given Lorazepam (Ativan -) 1 mg PO HS PRN Last Admin: 06/21/17 21:54 Dose: 1 mg Nicotine (Nicoderm Patch -) 14 mg TD DAILY [facility] Last Admin: 06/23/17 10:32 Dose: 14 mg Ondansetron HCl (Zofran Injection) 4 mg IVPUSH Q6H PRN PRN Reason: NAUSEA AND/OR VOMITING Pantoprazole Sodium (Protonix -) 40 mg PO DAILY [facility] Last Admin: 06/23/17 10:33 Dose: 40 mg Ramipril (Altace -) 5 mg PO DAILY [facility] Last Admin: 06/23/17 10:33 Dose: 5 mg - Objective Vital Signs: Vital Signs Temperature 98.2 F 06/23/17 09:00 Pulse Rate 90 06/23/17 09:00 Respiratory Rate 16 06/23/17 09:00 Blood Pressure 130/78 06/23/17 09:00 O2 Sat by Pulse Oximetry (%) 96 06/23/17 09:00 Constitutional: Yes: Calm Eyes: Yes: Conjunctiva Clear HENT: Yes: Atraumatic Cardiovascular: Yes: S1, S2 Respiratory: Yes: On Nasal O2 Gastrointestinal: Yes: Soft Genitourinary: Yes: WNL Musculoskeletal: Yes: WNL Edema: No Neurological: Yes: Oriented Psychiatric: Yes: Oriented Labs: CBC, BMP 06/22/17 09:00 06/23/17 06:30 INR, PTT INR 0.99 (0.82-1.09) 06/20/17 05:10 Problem List - Problems (1) DKA (diabetic ketoacidosis) Code(s): E13.10 - OTH DIABETES MELLITUS WITH KETOACIDOSIS WITHOUT COMA (2) SUSAN (acute kidney injury) Code(s): N17.9 - ACUTE KIDNEY FAILURE, UNSPECIFIED Assessment/Plan Current Medications Generic Name Dose Route Start Last Admin Trade Name Freq PRN Reason Stop Dose Admin Acetaminophen 650 mg 06/16/17 07:27 06/23/17 10:33 Tylenol - PO 650 mg Q6H PRN Administration FEVER OR PAIN Apixaban 5 mg 06/22/17 10:00 06/23/17 10:34 Eliquis - PO 5 mg BID CORDELIA Administration Atorvastatin Calcium 10 mg 06/16/17 22:00 06/22/17 21:19 Lipitor - PO 10 mg HS CORDELIA Administration Diltiazem HCl 30 mg 06/17/17 12:30 06/23/17 12:23 Cardizem - PO 30 mg Q6HPO CORDELIA Administration Insulin Aspart 1 vial 06/20/17 16:30 06/23/17 12:21 Novolog Vial Sliding Scale - SQ 6 units ACHS CORDELIA Administration Protocol Insulin Detemir 15 units 06/19/17 22:00 06/22/17 21:19 Levemir Vial SQ 15 units HS [facility] Administration Insulin Detemir 35 units 06/23/17 07:00 06/23/17 07:16 Levemir Vial SQ Not Given AM [facility] Lorazepam 1 mg 06/20/17 22:41 06/21/17 21:54 Ativan - PO 1 mg HS PRN Administration Nicotine 14 mg 06/18/17 12:00 06/23/17 10:32 Nicoderm Patch - TD 14 mg DAILY [facility] Administration Ondansetron HCl 4 mg 06/19/17 17:03 Zofran Injection IVPUSH Q6H PRN NAUSEA AND/OR VOMITING Pantoprazole Sodium 40 mg 06/16/17 19:00 06/23/17 10:33 Protonix - PO 40 mg DAILY [facility] Administration Ramipril 5 mg 06/19/17 11:45 06/23/17 10:33 Altace - PO 5 mg DAILY COR[facility]IA Administration Laboratory Tests 06/22/17 06/22/17 17:00 17:00 Urine Protein 3+ H D Protein/Creatinin Ratio 1.73 Impression 1. CKD with acute component 2. hyperkalemia 3. DKA 4. htn 5. chol 6. SUSAN 7. a-fib 8. lung mass 9. proteinuria Plan - creatinine improving - pulmonary follow up - will see pt in office for workup - urine studies reviewed with pt - avoid nsaids - smoking cessation - will need outpt follow up - lung mass workup - will follow
--- NOTE | 2017-06-23 16:48 | PN ---
Progress Note, Physician Chief Complaint: awaiting biopsy results nad, feeling better - Current Medication List Current Medications: Active Medications Acetaminophen (Tylenol -) 650 mg PO Q6H PRN PRN Reason: FEVER OR PAIN Last Admin: 06/23/17 10:33 Dose: 650 mg Apixaban (Eliquis -) 5 mg PO BID [facility] Last Admin: 06/23/17 10:34 Dose: 5 mg Atorvastatin Calcium (Lipitor -) 10 mg PO HS [facility] Last Admin: 06/22/17 21:19 Dose: 10 mg Diltiazem HCl (Cardizem -) 30 mg PO Q6HPO [facility] Last Admin: 06/23/17 12:23 Dose: 30 mg Insulin Aspart (Novolog Vial Sliding Scale -) 1 vial SQ ACHS [facility] PRN Reason: Protocol Last Admin: 06/23/17 12:21 Dose: 6 units Insulin Detemir (Levemir Vial) 15 units SQ HS [facility] Last Admin: 06/22/17 21:19 Dose: 15 units Insulin Detemir (Levemir Vial) 35 units SQ AM [facility] Last Admin: 06/23/17 07:16 Dose: Not Given Lorazepam (Ativan -) 1 mg PO HS PRN Last Admin: 06/21/17 21:54 Dose: 1 mg Nicotine (Nicoderm Patch -) 14 mg TD DAILY [facility] Last Admin: 06/23/17 10:32 Dose: 14 mg Ondansetron HCl (Zofran Injection) 4 mg IVPUSH Q6H PRN PRN Reason: NAUSEA AND/OR VOMITING Pantoprazole Sodium (Protonix -) 40 mg PO DAILY [facility] Last Admin: 06/23/17 10:33 Dose: 40 mg Ramipril (Altace -) 5 mg PO DAILY [facility] Last Admin: 06/23/17 10:33 Dose: 5 mg - Objective Vital Signs: Vital Signs Temperature 99 F 06/23/17 13:57 Pulse Rate 117 H 06/23/17 13:57 Respiratory Rate 20 06/23/17 13:57 Blood Pressure 142/84 06/23/17 13:57 O2 Sat by Pulse Oximetry (%) 96 06/23/17 09:00 Constitutional: Yes: No Distress Eyes: Yes: WNL HENT: Yes: WNL Neck: Yes: WNL Cardiovascular: Yes: WNL Respiratory: Yes: WNL Gastrointestinal: Yes: WNL Genitourinary: Yes: WNL Musculoskeletal: Yes: WNL Extremities: Yes: WNL Edema: No Peripheral Pulses WNL: Yes Integumentary: Yes: WNL Wound/Incision: Yes: Clean/Dry Neurological: Yes: WNL ...Motor Strength: WNL Psychiatric: Yes: WNL Labs: CBC, BMP 06/22/17 09:00 06/23/17 06:30 INR, PTT INR 0.99 (0.82-1.09) 06/20/17 05:10 Problem List - Problems (1) Atrial fibrillation Code(s): I48.91 - UNSPECIFIED ATRIAL FIBRILLATION (2) DKA (diabetic ketoacidosis) Code(s): E13.10 - OTH DIABETES MELLITUS WITH KETOACIDOSIS WITHOUT COMA Qualifiers: Diabetes mellitus type: type 2 (3) Diabetes mellitus, insulin dependent (IDDM), uncontrolled Code(s): E10.65 - TYPE 1 DIABETES MELLITUS WITH HYPERGLYCEMIA (4) Lung mass Code(s): R91.8 - OTHER NONSPECIFIC ABNORMAL FINDING OF LUNG FIELD Assessment/Plan AWAIT BIOPSY RESULT ENDOCRINE FOLLOW UP NEEDS HOME HEALTH AID FOR TEMPORARY PERIOD DM AWARENESS AND COMPLIANCE PULMONARY FOLLOW UP FOR LUNG MASS
[2017-06-23] MEDS ORDERED: ZOLPIDEM TARTRATE 5 MG TABLET PO ONE ×2 (18:00→22:00)
[2017-06-23] MEDS: ATORVASTATIN CA 10 MG TABLET (FP) PO SCH (22:20)
[2017-06-23] MEDS: INSULIN DETEMIR 100 UNITS/ML MDV SQ SCH (22:23)
[2017-06-23] MEDS: LORazepam 1 MG TABLET PO PRN (22:23)
[2017-06-24] MEDS: dilTIAZem HCL 30 MG TABLET (FP) PO SCH ×4 (00:10→17:05)
[2017-06-24] MEDS ORDERED: INSULIN SLIDING SCALE (NOVOLOG) 1 VIAL SQ SCH (01:07)
--- NOTE | 2017-06-24 01:26 | PN ---
Progress Note, Physician Chief Complaint: appetite improved,sugars labile willing and able to restart insulin pump,doesnt want to use levemir or coverage with injections History of Present Illness: copd,lung mass,dm iddm,hyperglycemia,labile diabetic - Current Medication List Current Medications: Active Medications Acetaminophen (Tylenol -) 650 mg PO Q6H PRN PRN Reason: FEVER OR PAIN Last Admin: 06/23/17 10:33 Dose: 650 mg Apixaban (Eliquis -) 5 mg PO BID [facility] Last Admin: 06/23/17 22:20 Dose: 5 mg Atorvastatin Calcium (Lipitor -) 10 mg PO HS [facility] Last Admin: 06/23/17 22:20 Dose: 10 mg Diltiazem HCl (Cardizem -) 30 mg PO Q6HPO [facility] Last Admin: 06/24/17 00:10 Dose: 30 mg Nicotine (Nicoderm Patch -) 14 mg TD DAILY [facility] Last Admin: 06/23/17 10:32 Dose: 14 mg Ondansetron HCl (Zofran Injection) 4 mg IVPUSH Q6H PRN PRN Reason: NAUSEA AND/OR VOMITING Pantoprazole Sodium (Protonix -) 40 mg PO DAILY [facility] Last Admin: 06/23/17 10:33 Dose: 40 mg Ramipril (Altace -) 5 mg PO DAILY [facility] Last Admin: 06/23/17 10:33 Dose: 5 mg - Objective Vital Signs: Vital Signs Temperature 98.8 F 06/23/17 22:00 Pulse Rate 95 H 06/23/17 22:00 Respiratory Rate 20 06/23/17 22:00 Blood Pressure 163/83 06/23/17 22:00 O2 Sat by Pulse Oximetry (%) 100 06/23/17 21:00 Constitutional: Yes: Anxious Eyes: Yes: EOM Intact HENT: Yes: Normocephalic Neck: Yes: Trachea Midline Cardiovascular: Yes: Bradycardia Respiratory: Yes: SOB, SOB on Exertion, Tachypnea Gastrointestinal: Yes: Normal Bowel Sounds ...Rectal Exam: Yes: Deferred Genitourinary: Yes: WNL Breast(s): Yes: WNL Musculoskeletal: Yes: WNL Extremities: Yes: WNL Edema: No Integumentary: Yes: WNL Neurological: Yes: Alert, Oriented Labs: CBC, BMP 06/22/17 09:00 06/23/17 06:30 INR, PTT INR 0.99 (0.82-1.09) 06/20/17 05:10 Assessment/Plan Current Active Problems Atrial fibrillation (Acute) Bilateral pneumonia (Acute) DKA (diabetic ketoacidosis) (Acute) Diabetes mellitus, insulin dependent (IDDM), uncontrolled (Acute) Pneumothorax (Acute) Abnormal Lab Results 06/23/17 06:30 Anion Gap 7 L BUN 21 H Creatinine 1.6 H Laboratory Results - last 24 hr 06/22/17 06/23/17 06/23/17 17:08 05:30 06:30 Sodium 141 Potassium 4.2 Chloride 105 Carbon Dioxide 29 Anion Gap 7 L BUN 21 H Creatinine 1.6 H POC Glucometer 402 54 Random Glucose 103 D Calcium 9.5 06/23/17 06/23/17 06/23/17 12:19 17:08 20:36 Sodium Potassium Chloride Carbon Dioxide Anion Gap BUN Creatinine POC Glucometer 318 456 303 Random Glucose Calcium 06/24/17 00:06 Sodium Potassium Chloride Carbon Dioxide Anion Gap BUN Creatinine POC Glucometer 186 Random Glucose Calcium plan: Current Medications Generic Name Dose Route Start Last Admin Trade Name Freq PRN Reason Stop Dose Admin Acetaminophen 650 mg 06/16/17 07:27 06/23/17 10:33 Tylenol - PO 650 mg Q6H PRN Administration FEVER OR PAIN Apixaban 5 mg 06/22/17 10:00 06/23/17 22:20 Eliquis - PO 5 mg BID COR[facility]IA Administration Atorvastatin Calcium 10 mg 06/16/17 22:00 06/23/17 22:20 Lipitor - PO 10 mg HS COR[facility]IA Administration Diltiazem HCl 30 mg 06/17/17 12:30 06/24/17 00:10 Cardizem - PO 30 mg Q6HPO [facility]IA Administration Nicotine 14 mg 06/18/17 12:00 06/23/17 10:32 Nicoderm Patch - TD 14 mg DAILY [facility] Administration Ondansetron HCl 4 mg 06/19/17 17:03 Zofran Injection IVPUSH Q6H PRN NAUSEA AND/OR VOMITING Pantoprazole Sodium 40 mg 06/16/17 19:00 06/23/17 10:33 Protonix - PO 40 mg DAILY [facility] Administration Ramipril 5 mg 06/19/17 11:45 06/23/17 10:33 Altace - PO 5 mg DAILY [facility]IA Administration dc levemir use novolog in insulin pump device basal bolus instructions basal rate 1.4u/hr
[2017-06-24] MEDS: RAMIPRIL 5 MG CAPSULE (FP) PO SCH (09:28)
[2017-06-24] MEDS: PANTOPRAZOLE 40 MG TABLET (FP) PO SCH (09:28)
[2017-06-24] MEDS: NICOTINE 14 MG/24 HOURS TOPICAL PATCH TD SCH (09:28)
[2017-06-24] MEDS: APIXABAN 5 MG TABLET PO SCH (09:28)
--- NOTE | 2017-06-24 11:07 | PN ---
Progress Note, Physician History of Present Illness: pulmonary no distress,-sob,-cp - Current Medication List Current Medications: Active Medications Acetaminophen (Tylenol -) 650 mg PO Q6H PRN PRN Reason: FEVER OR PAIN Last Admin: 06/23/17 10:33 Dose: 650 mg Apixaban (Eliquis -) 5 mg PO BID [facility] Last Admin: 06/24/17 09:28 Dose: 5 mg Atorvastatin Calcium (Lipitor -) 10 mg PO HS [facility] Last Admin: 06/23/17 22:20 Dose: 10 mg Diltiazem HCl (Cardizem -) 30 mg PO Q6HPO [facility] Last Admin: 06/24/17 06:35 Dose: 30 mg Nicotine (Nicoderm Patch -) 14 mg TD DAILY [facility] Last Admin: 06/24/17 09:28 Dose: 14 mg Ondansetron HCl (Zofran Injection) 4 mg IVPUSH Q6H PRN PRN Reason: NAUSEA AND/OR VOMITING Pantoprazole Sodium (Protonix -) 40 mg PO DAILY [facility] Last Admin: 06/24/17 09:28 Dose: 40 mg Ramipril (Altace -) 5 mg PO DAILY [facility] Last Admin: 06/24/17 09:28 Dose: 5 mg - Objective Vital Signs: Vital Signs Temperature 98.1 F 06/24/17 09:26 Pulse Rate 100 H 06/24/17 09:26 Respiratory Rate 20 06/24/17 09:26 Blood Pressure 153/82 06/24/17 09:26 O2 Sat by Pulse Oximetry (%) 100 06/23/17 21:00 Constitutional: Yes: Well Nourished, Calm Eyes: Yes: WNL HENT: Yes: WNL Neck: Yes: WNL Cardiovascular: Yes: Pulse Irregular, S1, S2 Respiratory: Yes: CTA Bilaterally Gastrointestinal: Yes: Normal Bowel Sounds, Soft Extremities: Yes: WNL Edema: No Labs: CBC, BMP Problem List - Problems (1) Atrial fibrillation Code(s): I48.91 - UNSPECIFIED ATRIAL FIBRILLATION (2) DKA (diabetic ketoacidosis) Code(s): E13.10 - OTH DIABETES MELLITUS WITH KETOACIDOSIS WITHOUT COMA Qualifiers: Diabetes mellitus type: type 2 (3) SUSAN (acute kidney injury) Code(s): N17.9 - ACUTE KIDNEY FAILURE, UNSPECIFIED (4) HLD (hyperlipidemia) Code(s): E78.5 - HYPERLIPIDEMIA, UNSPECIFIED (5) HTN (hypertension) Code(s): I10 - ESSENTIAL (PRIMARY) HYPERTENSION (6) Lung mass Code(s): R91.8 - OTHER NONSPECIFIC ABNORMAL FINDING OF LUNG FIELD (7) Shortness of breath Code(s): R06.02 - SHORTNESS OF BREATH Assessment/Plan SSESSMENT AND PLAN: R Apical PTX s/p lung bx Diabetic Ketoacidosis improved New Onset Atrial Fibrillation Acute on Chronic Renal Failure improving HTN Lung Mass Smoker - monitor urine output, creatinine - monitor BGM - glucose control - DVT prophylaxis - check path - f/u chest x-ray -PET scan outpatient - pfts outpatient DR LEONE
--- NOTE | 2017-06-24 11:49 | PATH ---
Surgical Pathology Report Patient Name: ROSALIND LAROSE [facility]. Rec. #: [id number] /Age/Gender: 1955 (Age: 62) / F Account: [id number] Location: 4 W TELEMETRY U Taken: 06/20/2017 Received: 06/20/2017 Reported: 06/24/2017 Physicians: Tariq Wright M.D. Specimen(s) Received LUNG BIOPSY Clinical History The 62-year-old female with right lung mass Final Diagnosis LUNG, BIOPSY: ADENOCARCINOMA. SEE COMMENT. Comment: Performed immunohistochemical stains from [facility] show the tumor is positive for CK20, while negative for CK7 and TTF-1. This morphology and immunophenotype is consistent with colorectal origin. Suggest clinical/radiologic correlation. Prior history of rectosigmoid adenocarcinoma is noted ([id number]). Findings discussed with Drs. Arciniega and Fortunato. Electronically Signed Merry Ferreira M.D. Gross Description Received in formalin labeled "lung biopsy," is a 0.2 x 0.2 x 0.1 cm aggregate of de la torre soft tissue fragments. The formalin is filtered and the specimen is entirely submitted in one cassette. 06/20/201706/20/2017
--- NOTE | 2017-06-24 13:26 | DS ---
Physical Examination Vital Signs: Vital Signs Temperature 98.1 F 06/24/17 09:26 Pulse Rate 100 H 06/24/17 09:26 Respiratory Rate 20 06/24/17 09:26 Blood Pressure 153/82 06/24/17 09:26 O2 Sat by Pulse Oximetry (%) 100 06/23/17 21:00 AWAKE ALERT Findings/Remarks: LUNG BIOPSY RESULTS REVIEWED +ADENOA CARCINOMA LIKELY METASTATIC FROM COLON PATIENT HAS HISTORY OF COLON CANCER AND HAS AN ONCOLOGIST SHE USES IN STANDARD. Constitutional: Yes: No Distress Eyes: Yes: WNL HENT: Yes: WNL Neck: Yes: WNL Cardiovascular: Yes: WNL Respiratory: Yes: WNL Gastrointestinal: Yes: WNL ...Rectal Exam: Yes: WNL Renal/: Yes: WNL Musculoskeletal: Yes: WNL Extremities: Yes: WNL Edema: No Peripheral Pulses WNL: Yes Integumentary: Yes: WNL Wound/Incision: Yes: Clean/Dry Neurological: Yes: WNL ...Motor Strength: WNL Psychiatric: Yes: WNL Labs: CBC, BMP 06/22/17 09:00 06/23/17 06:30 Discharge Summary Reason For Visit: DKA Current Active Problems Atrial fibrillation (Acute) Bilateral pneumonia (Acute) DKA (diabetic ketoacidosis) (Acute) Diabetes mellitus, insulin dependent (IDDM), uncontrolled (Acute) Pneumothorax (Acute) LUNG MASS WITH HISTORY OF COLON CANCER Procedures: Principal: LUNG BIOPSY Other Procedures: CT SCANS Hospital Course: ADMITTED TO ICU FOR DKA, TRETED AND RESOLVED, SEEN BY ENDOCRINE. PATIENT WITH LUNG MASS, BIOPSED + ADENOCARCINOMA LIKELY METS FROM COLON. Condition: Guarded - Instructions Diet, Activity, Other Instructions: NEEDS FOLLOW UP WITH ONCOLOGY DR HELMS HER PMD DR LEONE PULMONARY PETSCAN ADA STRICT DIABETIC COMPLIANCE DISCUSSED Disposition: HOME - Home Medications Comprehensive Discharge Medication List: Ambulatory Orders Atorvastatin Ca [Lipitor] 20 mg PO HS #0 tablet 01/14/14 Insulin Pump Controller [Snap Insulin Pump Controller] 0 units SQ ASDIR Gabapentin 300 mg PO BID #60 capsule 08/23/14 Lipase/Protease/Amylase [Ira Rm 36,000 Units Capsule] 36,000 units PO TIDCM Amlodipine Besylate [Norvasc -] 5 mg PO DAILY #30 tablet 09/12/14
--- NOTE | 2017-06-24 15:39 | PN ---
Progress Note, Physician History of Present Illness: Pt seen and examined at bedside. She is awake and alert. She was told that she has adenocarcinoma. - Current Medication List Current Medications: Active Medications Acetaminophen (Tylenol -) 650 mg PO Q6H PRN PRN Reason: FEVER OR PAIN Last Admin: 06/23/17 10:33 Dose: 650 mg Apixaban (Eliquis -) 5 mg PO BID [facility] Last Admin: 06/24/17 09:28 Dose: 5 mg Atorvastatin Calcium (Lipitor -) 10 mg PO HS [facility] Last Admin: 06/23/17 22:20 Dose: 10 mg Diltiazem HCl (Cardizem -) 30 mg PO Q6HPO [facility] Last Admin: 06/24/17 11:35 Dose: 30 mg Nicotine (Nicoderm Patch -) 14 mg TD DAILY [facility] Last Admin: 06/24/17 09:28 Dose: 14 mg Ondansetron HCl (Zofran Injection) 4 mg IVPUSH Q6H PRN PRN Reason: NAUSEA AND/OR VOMITING Pantoprazole Sodium (Protonix -) 40 mg PO DAILY [facility] Last Admin: 06/24/17 09:28 Dose: 40 mg Ramipril (Altace -) 5 mg PO DAILY [facility] Last Admin: 06/24/17 09:28 Dose: 5 mg - Objective Vital Signs: Vital Signs Temperature 97.9 F 06/24/17 14:00 Pulse Rate 104 H 06/24/17 14:00 Respiratory Rate 20 06/24/17 09:26 Blood Pressure 163/73 06/24/17 14:00 O2 Sat by Pulse Oximetry (%) 100 06/23/17 21:00 Constitutional: Yes: Calm Eyes: Yes: Conjunctiva Clear HENT: Yes: Atraumatic Neck: Yes: Supple Cardiovascular: Yes: S1, S2 Respiratory: Yes: On Nasal O2 Gastrointestinal: Yes: Normal Bowel Sounds, Soft Genitourinary: Yes: WNL Musculoskeletal: Yes: WNL Edema: No Neurological: Yes: Oriented Psychiatric: Yes: Oriented Labs: CBC, BMP 06/22/17 09:00 06/23/17 06:30 INR, PTT INR 0.99 (0.82-1.09) 06/20/17 05:10 Problem List - Problems (1) DKA (diabetic ketoacidosis) Code(s): E13.10 - OTH DIABETES MELLITUS WITH KETOACIDOSIS WITHOUT COMA Qualifiers: Diabetes mellitus type: type 2 (2) SUSAN (acute kidney injury) Code(s): N17.9 - ACUTE KIDNEY FAILURE, UNSPECIFIED Assessment/Plan Current Medications Generic Name Dose Route Start Last Admin Trade Name Freq PRN Reason Stop Dose Admin Acetaminophen 650 mg 06/16/17 07:27 06/23/17 10:33 Tylenol - PO 650 mg Q6H PRN Administration FEVER OR PAIN Apixaban 5 mg 06/22/17 10:00 06/24/17 09:28 Eliquis - PO 5 mg BID CORDELIA Administration Atorvastatin Calcium 10 mg 06/16/17 22:00 06/23/17 22:20 Lipitor - PO 10 mg HS CORDELIA Administration Diltiazem HCl 30 mg 06/17/17 12:30 06/24/17 11:35 Cardizem - PO 30 mg Q6HPO CORDELIA Administration Nicotine 14 mg 06/18/17 12:00 06/24/17 09:28 Nicoderm Patch - TD 14 mg DAILY [facility] Administration Ondansetron HCl 4 mg 06/19/17 17:03 Zofran Injection IVPUSH Q6H PRN NAUSEA AND/OR VOMITING Pantoprazole Sodium 40 mg 06/16/17 19:00 06/24/17 09:28 Protonix - PO 40 mg DAILY COR[facility]IA Administration Ramipril 5 mg 06/19/17 11:45 06/24/17 09:28 Altace - PO 5 mg DAILY [facility] Administration Impression 1. CKD with acute component 2. hyperkalemia 3. DKA 4. htn 5. chol 6. SUSAN 7. a-fib 8. lung mass 9. proteinuria 10. adenocarcinoma Plan - will need oncology follow up - will see pt in office - will need proteinuria workup - avoid nsaids - smoking cessation - will need outpt follow up - lung mass workup in progress - will follow
[2017-06-24 17:50] VITALS: BP 160/84; PULSE 94; TEMP 98
== END 2017-06-24 18:36 | disposition home or self-care (01) | DRG 420 ==
LOC: JER 04:01 → JERBED 06:20 → JICU 08:59 → J4W 06-19 20:12
PROVIDERS: ADMIT Family Medicine; ATTEND Family Medicine
PROC: 0BBK3ZX Excision of Right Lung, Percutaneous Approach, Diagnostic (ICD-10-PCS; principal; 2017-06-20)
DX: E10.10 Type 1 diabetes mellitus with ketoacidosis without coma (principal); N17.9 Acute kidney failure, unspecified; Z96.41 Presence of insulin pump (external) (internal); J18.9 Pneumonia, unspecified organism; C78.01 Secondary malignant neoplasm of right lung; C18.9 Malignant neoplasm of colon, unspecified; J90 Pleural effusion, not elsewhere classified; I48.91 Unspecified atrial fibrillation; E78.5 Hyperlipidemia, unspecified; E87.5 Hyperkalemia; E86.0 Dehydration; D72.828 Other elevated white blood cell count; I07.1 Rheumatic tricuspid insufficiency; I27.20 Pulmonary hypertension, unspecified; J95.811 Postprocedural pneumothorax; R06.02 Shortness of breath; J98.11 Atelectasis; R80.8 Other proteinuria; F41.8 Other specified anxiety disorders; I12.9 Hypertensive chronic kidney disease with stage 1 through stage 4 chronic kidney disease, or unspecified chronic kidney disease; E10.22 Type 1 diabetes mellitus with diabetic chronic kidney disease; N18.9 Chronic kidney disease, unspecified; K43.2 Incisional hernia without obstruction or gangrene; G56.03 Carpal tunnel syndrome, bilateral upper limbs; K21.9 Gastro-esophageal reflux disease without esophagitis; F17.210 Nicotine dependence, cigarettes, uncomplicated; Z79.4 Long term (current) use of insulin; Z90.49 Acquired absence of other specified parts of digestive tract
CPT/HCPCS: 32405; 36415; 71010-TC; 71020-TC; 71250-TC; 76098-TC; 77012-TC; 80048; 80053; 80061; 81003; 81015; 82009; 82553; 82570; 83036; 83721; 83735; 84100; 84156; 84484; 85025; 85027; 85610; 86480; 87040; 87070; 87075; 87102; 87116; 87205; 87206; 87210; 87899; 88305-TC; 90670; 93005; 93010; 93306-TC; 94010; 94640; 99285-25; J1644

== ENCOUNTER 2017-08-18 10:34 | Day surgery (SDC) | payer OTHER ==
[2017-08-14 17:10] VITALS: BMI 31.8
[~2017-08-18 10:34] MED LIST: HEPARIN NA (PORCINE) 5,000 UNITS/ML 1ML VIAL SQ ONE
[2017-08-18] MEDS ORDERED: MIDAZOLAM HCL 2 MG/2 ML SINGLE DOSE VIAL ONE (12:07)
[2017-08-18] MEDS ORDERED: DEXAMETHASONE SOD PHOSPHATE 4 MG/1 ML VIAL ONE (12:07)
[2017-08-18] MEDS ORDERED: PROPOFOL 20 ML ONE ×2 (12:07→14:35)
[2017-08-18] MEDS ORDERED: LIDOCAINE HCL 1%, 10 MG/ML (20ML VIAL) ONE (13:04)
[2017-08-18] MEDS ORDERED: HEPARIN NA (PORCINE) 5,000 UNITS/ML 1ML VIAL ONE (13:24)
[2017-08-18] MEDS ORDERED: ceFAZolin SODIUM 1 GM VIAL IVPB ONE (13:26)
[2017-08-18] MEDS ORDERED: HEPARIN NA (PORCINE) 5,000 UNITS/ML 1ML VIAL SQ ONE ×2 (13:53→13:55)
[2017-08-18] MEDS ORDERED: LIDOCAINE HCL 1%, 10 MG/ML (20ML VIAL) INF ONE ×2 (13:54)
--- NOTE | 2017-08-18 14:50 | EKG ---
Test Reason : Blood Pressure : / mmHG Vent. Rate : 087 BPM Atrial Rate : 087 BPM P-R Int : 130 ms QRS Dur : 076 ms QT Int : 360 ms P-R-T Axes : 070 047 061 degrees QTc Int : 433 ms NORMAL SINUS RHYTHM SEPTAL INFARCT , AGE UNDETERMINED ABNORMAL ECG WHEN COMPARED WITH ECG OF 14-AUG-2017 13:46, SEPTAL INFARCT IS NOW PRESENT Confirmed by ACOSTA HIGUERA, VICENTE ([id number]) on 08/18/2017 2:49:46 PM Referred By: Misbah Puga Confirmed By:VICENTE SHANE MD
[2017-08-18] MEDS ORDERED: ACETAMINOPHEN 325 MG TABLET (FP) PO PRN (15:25)
[2017-08-18] MEDS ORDERED: ONDANSETRON 4 MG/2 ML VIAL IVPUSH PRN (15:25)
[2017-08-18] MEDS ORDERED: LACTATED RINGERS SOLUTION 1,000 ML IV SCH (15:30)
--- NOTE | 2017-08-18 15:35 | SURG ---
Surgery Job Captain Note Job Captain: Annabella Alejo PA-C Date of Service: 08/18/17 Diagnosis: right sided lung CA Procedure: Placement of double lumen power portacath and angiogram I was present for the entirety of the operative procedure. For further detail, please refer to operative report. Visit type - Case Type Case Type: Scheduled Admission - Emergency Emergency Visit: No - New patient This patient is new to me today: Yes Date on this admission: 08/18/17
--- NOTE | 2017-08-18 15:51 | OP ---
Operative Note - Note: Operative Date: 08/18/17 Pre-Operative Diagnosis: Colorectal cancer (metastatic) Operation: Ultrasound guided placement of right IJ mediport, angiogram, flouroscopy Findings: Open IJ with prominent EJ. Difficult to pass wire from IJ into SVC and contrast preferentially went to innominate. Then placed micropuncture kit wire and slowly advanced under flouro into SVC, RA, IVC. Removed and replaced larger wire into SVC, RA. Successfully placed catheter into SVC/RA. Back-bleeding c/w venous hypertension. Both ports withdrew and flushed easily after placement. Post-Operative Diagnosis: Same as Pre-op Surgeon: Misbah Puga Marketing Intelligence Manager: Annabella Alejo Anesthesia: Local, MAC Estimated Blood Loss (mls): 200 Operative Report Dictated: Yes
[2017-08-18] MEDS ORDERED: oxyCODONE HCL 5 MG TABLET ONE (16:01)
[2017-08-18 16:08] VITALS: TEMP 97.5
[2017-08-18 17:11] VITALS: BP 152/85; PULSE 86
--- NOTE | 2017-08-19 11:53 | OPR ---
Patient Name: Renata Neely MR#: [id number] Procedure Date: 08/19/17 Preoperative Diagnosis: Colorectal cancer Postoperative Diagnosis: same Procedure: 1. Ultrasound of internal jugular vein; 2. Angiogram or right internal jugular vein. 3. Flouroscopic-guided insertion of double-lumen power mediport in right internal jugular. Indication: Metastatic disease. Surgeon(s): Misbah Puga MD Cosurgeon: n/a. Concert Pianist Surgeon: Annabella Alejo Anesthesia: MAC with local; Findings: aberrant anatomy vs. SVC stricture from prior port; angiogram showed micropuncture catheter injection filling innominate vein; venous hypertension; patent jugular; catheter tip in position on flouroscopy. Specimens Sent: n/a Complications: none Drains / Tubes / Catheters: na Hardware / Implants: na Blood / Fluid Losses: 200cc Post-Operative Condition: Hemodynamically stable in transfer to PACU. Indications: This patient is a 62 year-old female with metastatic colorectal cancer, renal insufficiency, and a history of a prior right-sided portacath. An informed consent was obtained from the patient explaining the risks (infection, bleeding, malpositioning, thrombosis, worsening renal insufficiency), benefits ( easier venous access), and alternatives (continue with venipuncture) of the procedure. The patient understood. Details of Procedure: The patient was taken to the operating room. Intraoperative monitoring was performed including pulse oximetry and blood pressure monitoring. The patient was supine in the bed with her right arm tucked at the side. We began with ultrasound visualization of the right internal jugular vein which was compressible and without obvious thrombus. Then , the right side was prepared and draped in standard surgical fashion. We then performed venipuncture using the micropuncture kit after injecting with local anesthesia. We then placed a wire into the vessel. An angiogram was shot with 5cc of 50% contrast and filled the innominate. Next, we used the micropuncture wire until we could clearly angle it into the SVC. We attempted to place the dilator over this but it was difficult. We then changed to the stiffer wire from double-lumen power port kit. Under fluoroscopic guidance we were able to pass this well past into the IVC. We then anesthetized the track and tunnel to the subcutaneous port pocket. We then made our pocket and placed the port in the pocket. Next we dilated the venotomy and placed the catheter into the vessel to the cavoatrial junction under fluoroscopic guidance. Of note, there was brisk, non-pulsatile back-bleeding, despite the patient no longer in Trendelenburg position. Once connected, we tested both ports to confirm easy flushing of saline and withdrawal of blood. Flouroscopy showed good position without kinks. We then flushed the prescribed amount (5cc each port) of heparin into the port. We fixed the catheter to the deep tissue with two sutures. We attended to hemostasis in the incision and pocket and then completed closing. The subcutaneous tissue and skin were closed with vicryl and monocryl. A dermabond dressing was then made. The patient was awakened and transferred in stable condition to the recovery room.
== END 2017-08-18 17:15 | disposition home or self-care (01) ==
LOC: JASU-SURG 10:34
PROVIDERS: ATTEND Surgery
PROC: 02HV33Z Insertion of Infusion Device into Superior Vena Cava, Percutaneous Approach (ICD-10-PCS; 2017-08-18)
PROC: 0JH63XZ Insertion of Tunneled Vascular Access Device into Chest Subcutaneous Tissue and Fascia, Percutaneous Approach (ICD-10-PCS; principal; 2017-08-18 12:00)
DX: C19 Malignant neoplasm of rectosigmoid junction (principal); C78.00 Secondary malignant neoplasm of unspecified lung
CPT/HCPCS: 36561; 77001; C1788; 71010-TC; 76000-TC; 93005; 93010; 94760; J1644

== ENCOUNTER 2017-09-09 21:41 | Inpatient (IN) | payer OTHER ==
[2017-09-09 21:53] VITALS: BMI 32.8
--- NOTE | 2017-09-09 22:15 | PDOC ---
History of Present Illness - General History Source: Patient, Family - History of Present Illness Initial Comments: 09/09/17 22:34 The patient is a 62-year-old female BRAN with a significant past medical history of HTN, HLD, IDDM, hyperkalemia, Colon CA and lung CA stage 1, who presents to the emergency department with family member at bedside for complaint of persistent nausea and vomiting after failed chemotherapy infusion this morning. The patients family member reports the patient went to chemotherapy for her Lung CA this morning, however, there was a problem with infusing the port. The patient subsequently became nauseous and started vomiting. The patient reports her last episode of emesis was just prior to presentation. The patient also reports a few episodes of loose stools today, nonbloody. The patient reports a headache and chills at this time. The patient denies chest pain, shortness of breath and dizziness. The patient denies fever, and constipation. The patient denies dysuria, frequency, urgency and hematuria. Allergies: morphine Past Surgical History: colon resection, total hysterectomy, partial colectomy, ventral hernia repair Social History: Smoker. Denies ETOH or drug use. PCP: Dr. Dejan Medina Public Speaking Coach: "[facility] [place]" <Magali Jackson - Last Filed: 09/09/17 22:34> - General History Source: Patient <Manuel Lee - Last Filed: 09/10/17 02:15> - General Chief Complaint: Pain Stated Complaint: ABD PAIN/Nausea/Vomiting Time Seen by Provider: 09/09/17 22:12 Past History <Magali Jackson - Last Filed: 09/09/17 22:34> - Past Medical History Anemia: No Asthma: No Cancer: No Cardiac Disorders: No CVA: No COPD: No CHF: No DVT: No Dementia: No Diabetes: Yes (INSULIN DEPENDENT) Dialysis: No GI Disorders: Yes (COLON CA , 2011) Disorders: No HTN: Yes Hypercholesterolemia: Yes Kidney Stones: No Liver Disease: No Psychiatric Problems: Yes (depression,anxeity) Seizures: No Thyroid Disease: No Lung CA: Yes - Surgical History Abdominal Surgery: Yes (COLON RESECTION FOR CA) Appendectomy: No Cardiac Surgery: No Cholecystectomy: No Lung Surgery: No Neurologic Surgery: No Orthopedic Surgery: No - Immunization History Immunization Up to Date: Yes - Suicide/Smoking/Psychosocial Hx Smoking Status: Yes Smoking History: Former smoker Years of Tobacco Use: 0 Have you smoked in the past 12 months: Yes Number of Cigarettes Smoked Daily: 0 Cigars Per Day: 10 Information on smoking cessation initiated: No 'Breaking Loose' booklet given: 08/14/17 Hx Alcohol Use: No Drug/Substance Use Hx: No Substance Use Type: None Hx Substance Use Treatment: No <Manuel Lee - Last Filed: 09/10/17 02:15> - Past Medical History Allergies/Adverse Reactions: Allergies Allergy/AdvReac Type Severity Reaction Status Date / Time No Known Drug Allergies Allergy Verified 09/09/17 23:57 Medical Tape Allergy Uncoded 09/09/17 23:56 Home Medications: Ambulatory Orders Atorvastatin Ca [Lipitor] 20 mg PO HS #0 tablet 01/14/14 Insulin Pump Controller [Snap Insulin Pump Controller] 0 units SQ ASDIR Gabapentin 300 mg PO BID #60 capsule 08/23/14 Apixaban [Eliquis -] 5 mg PO BID #60 tablet 06/24/17 Diltiazem Cd [Cardizem Cd -] 120 mg PO DAILY #30 cap.cd.24h 06/24/17 Ramipril [Altace] 5 mg PO DAILY #30 tab 06/24/17 Metoprolol Succinate 50 mg PO DAILY 08/14/17 Oxycodone HCl/Acetaminophen [Percocet 5/325 -] 1 - 2 tab PO Q4H PRN #20 tablet MDD 6 08/18/17 Review of Systems - Review of Systems Able to Perform ROS?: Yes Comments:: 09/09/17 22:34 CONSTITUTIONAL: (+) chills, Absent: fever, diaphoresis, generalized weakness, malaise, loss of appetite HEENT: Absent: rhinorrhea, nasal congestion, throat pain, throat swelling, difficulty swallowing, mouth swelling, ear pain, eye pain, visual Changes CARDIOVASCULAR: Absent: chest pain, syncope, palpitations, irregular heart rate, lightheadedness , peripheral edema RESPIRATORY: Absent: cough, shortness of breath, dyspnea with exertion, orthopnea, wheezing, stridor, hemoptysis GASTROINTESTINAL: (+) nausea, vomiting, diarrhea, Absent: abdominal pain, abdominal distension, constipation, melena, hematochezia GENITOURINARY: Absent: dysuria, frequency, urgency, hesitancy, hematuria, flank pain, genital pain MUSCULOSKELETAL: Absent: myalgia, arthralgia, joint swelling SKIN: Absent: rash, itching, pallor HEMATOLOGIC/IMMUNOLOGIC: Absent: easy bleeding, easy bruising, lymphadenopathy, frequent infections ENDOCRINE: Absent: unexplained weight gain, unexplained weight loss, heat intolerance, cold intolerance NEUROLOGIC: (+) headache, Absent: focal weakness or paresthesias, dizziness, unsteady gait , seizure, mental status changes, bladder or bowel incontinence PSYCHIATRIC: Absent: anxiety, depression, suicidal or homicidal ideation, hallucinations. <Magali Jackson - Last Filed: 09/09/17 22:34> *Physical Exam - Vital Signs Last Vital Signs Temp Pulse Resp BP Pulse Ox 97.6 F 89 18 200/95 98 09/09/17 21:50 09/09/17 21:50 09/09/17 21:50 09/09/17 21:50 09/09/17 21:50 - Physical Exam Comments: 09/09/17 22:35 GENERAL: (+) Patient appears pale and in moderate distress. Awake and alert. HEENT: (+) dry oral mucosa. Normocephalic, atraumatic. PERRLA, EOMI. No conjunctival pallor. Sclera are non-icteric. Oropharynx is clear. NECK: Supple. Full ROM. No JVD. Carotid pulses 2+ and symmetric, without bruits. No thyromegaly. No lymphadenopathy. CARDIOVASCULAR: Regular rate and rhythm. No murmurs, rubs, or gallops. Distal pulses are 2+ and symmetric. PULMONARY: No evidence of respiratory distress. Lungs clear to auscultation bilaterally. No wheezing, rales or rhonchi. ABDOMINAL: Soft. Non-tender. Non-distended. No rebound or guarding. No organomegaly. Normoactive bowel sounds. MUSCULOSKELETAL Normal range of motion at all joints. No bony deformities or tenderness. No CVA tenderness. EXTREMITIES: No cyanosis. No clubbing. No edema. No calf tenderness. SKIN: Warm and dry. Normal capillary refill. No rashes. No jaundice. NEUROLOGICAL: Alert, awake, appropriate. Cranial nerves 2-12 intact. Normoreflexic in the upper and lower extremities. Normal speech. Toes are down-going bilaterally. PSYCHIATRIC: Cooperative. Good eye contact. Appropriate mood and affect. <Magali Jackson - Last Filed: 09/09/17 22:34> - Vital Signs Last Vital Signs Temp Pulse Resp BP Pulse Ox 97.6 F 89 18 200/95 98 09/09/17 21:50 09/09/17 21:50 09/09/17 21:50 09/09/17 21:50 09/09/17 21:50 <Manuel Lee - Last Filed: 09/10/17 02:15> ED Treatment Course - LABORATORY CBC & Chemistry Diagram: 09/09/17 22:58 09/09/17 22:58 <Manuel Lee - Last Filed: 09/10/17 02:15> *DC/Admit/Observation/Transfer - Attestations Scribe Attestion: 09/09/17 22:37 Documentation prepared by Magali Jackson, acting as medical office rep for Manuel Lee DO <Magali Jackson - Last Filed: 09/09/17 22:34> - Discharge Dispostion Admit: Yes <Manuel Lee - Last Filed: 09/10/17 02:15> Diagnosis at time of Disposition: Intractable vomiting with nausea Qualifiers: Vomiting type: unspecified Qualified Code(s): R11.2 - Nausea with vomiting, unspecified Headache Qualifiers: Headache chronicity pattern: unspecified pattern Intractability: intractable - Discharge Dispostion Condition at time of disposition: Stable - Referrals Referrals: Dejan Medina MD [Primary Care Provider] - - Patient Instructions - Post Discharge Activity
[2017-09-09] MEDS ORDERED: morphine CARPU-JECT 2 MG/1 ML DISP.SYRIN IVPUSH ONE (22:17)
[2017-09-09] MEDS ORDERED: SODIUM CHLORIDE 1,000 ML IV STA ×2 (22:17→23:48)
[2017-09-09] MEDS ORDERED: ONDANSETRON 4 MG/2 ML VIAL IVPUSH STA (22:38)
[2017-09-09] MEDS ORDERED: morphine CARPU-JECT 10 MG/1 ML DISP.SYRIN ONE (22:41)
[2017-09-09] MEDS ORDERED: ONDANSETRON 4 MG/2 ML VIAL ONE (22:41)
[2017-09-09 23:10] LABS: BASO % 0.9 % (0-2.0); EOS % 0.1 % (0-4.5); HEMATOCRIT 35.7 % (32.4-45.2); HEMOGLOBIN 11.5 GM/dL (10.7-15.3); LYMPH % 7.3 % (8-40); MCH 26.2 pg (25.7-33.7); MCHC 32.3 g/dl (32.0-36.0); MEAN PLT VOLUME 6.7 fl (7.5-11.1); MONO % 0.8 % (3.8-10.2); NEUT % 90.9 % (42.8-82.8); PLATELET COUNT 493 K/MM3 (134-434); RDW 16.3 % (11.6-15.6); WHITE BLOOD COUNT 9.8 K/mm3 (4.0-10.0)
[2017-09-09 23:23] LABS: INR 1.14 (0.82-1.09); PROTHROMBIN TIME (PATIENT) 12.9 SEC (9.98-11.88)
[2017-09-09 23:35] LABS: ALBUMIN 3.5 g/dl (3.4-5.0); ALK PHOS 187 U/L (45-117); AMYLASE 68 U/L (25-115); ANION GAP 13 (8-16); BILIRUBIN,TOTAL 0.4 mg/dL (0.2-1.0); BLOOD UREA NITROGEN 23 mg/dL (7-18); CALCIUM 9.6 mg/dL (8.5-10.1); CHLORIDE 104 mmol/L (98-107); CO2 22 mmol/L (21-32); CREATININE 1.5 mg/dL (0.55-1.02); GLUCOSE,RANDOM 231 mg/dL (74-106); LIPASE 125 U/L (73-393); MAGNESIUM 1.7 mg/dL (1.8-2.4); SGOT/AST 19 U/L (15-37); SGPT/ALT 16 U/L (12-78); SODIUM 139 mmol/L (136-145); TOT PROT 7.9 g/dl (6.4-8.2)
[2017-09-10 00:20] LABS: URINE APPEARANCE SLCLOUDY; URINE BILIRUBIN NEGATIVE (NEGATIVE); URINE BLOOD 1+ (NEGATIVE); URINE COLOR LTYELLOW; URINE GLUCOSE (UA) 3+ (NEGATIVE); URINE KETONE NEGATIVE (NEGATIVE); URINE LEUK ESTERASE NEGATIVE (NEGATIVE); URINE NITRITE NEGATIVE (NEGATIVE); URINE UROBILINOGEN NEGATIVE mg/dL (0.2-1.0)
[2017-09-10 00:22] LABS: URINE PROTEIN 3+ (NEGATIVE)
[2017-09-10 00:26] LABS: EPI CELLS RARE /HPF (FEW); URINE BACTERIA RARE /hpf (NONE SEEN); URINE HYALINE CAST 2 /lpf; URINE MUCUS RARE
[2017-09-10] MEDS ORDERED: morphine CARPU-JECT 2 MG/1 ML DISP.SYRIN IVPUSH ONE (00:55)
[2017-09-10] MEDS ORDERED: ONDANSETRON 4 MG/2 ML VIAL IVPUSH STA ×2 (00:55→05:01)
[2017-09-10] MEDS ORDERED: morphine CARPU-JECT 10 MG/1 ML DISP.SYRIN ONE (01:15)
[2017-09-10] MEDS ORDERED: ONDANSETRON 4 MG/2 ML VIAL ONE ×2 (01:16→05:03)
[2017-09-10] MEDS ORDERED: METOCLOPRAMIDE HCL INJECTION 10 MG/2 ML VIAL IVPUSH ONE (02:24)
[2017-09-10] MEDS ORDERED: metoPROLOL SUCCINATE 25 MG TAB.SR.24H (FP) PO ONE (02:25)
[2017-09-10] MEDS ORDERED: RAMIPRIL 5 MG CAPSULE (FP) PO ONE ×2 (02:26→08:45)
[2017-09-10] MEDS ORDERED: METOPROLOL TARTRATE 25 MG TABLET (FP) PO ONE (02:26)
[2017-09-10] MEDS ORDERED: METOPROLOL TARTRATE 25 MG TABLET (FP) ONE (02:34)
[2017-09-10] MEDS ORDERED: METOCLOPRAMIDE HCL INJECTION 10 MG/2 ML VIAL ONE (02:34)
[2017-09-10] MEDS ORDERED: RAMIPRIL 5 MG CAPSULE (FP) ONE (02:34)
[2017-09-10] MEDS ORDERED: MAGNESIUM SULF 50% (8.12 MEQ/2 ML-1 GM VIAL) IVPB ONE (04:21)
[2017-09-10] MEDS ORDERED: MAGNESIUM SULF 50% (8.12 MEQ/2 ML-1 GM VIAL) ONE (04:45)
[2017-09-10] MEDS ORDERED: METOCLOPRAMIDE HCL INJECTION 10 MG/2 ML VIAL IVPUSH PRN (05:12)
[2017-09-10] MEDS ORDERED: SODIUM CHLORIDE 1,000 ML IV SCH (05:15)
--- NOTE | 2017-09-10 05:38 | HP ---
CHIEF COMPLAINT: nausea and vomiting PCP: Carol HISTORY OF PRESENT ILLNESS: This is a 62 year old female with a past medical history significant for colon CA with mets to lung currently on chemo, unable to receive chemo today due to port difficulties who presented to the ED with nausea and vomiting today and last night. She also had a headache earlier. She did not take any of her BP medication yesterday. ER course was notable for: (1) CT head with multiple foci of low attenuation, ?metastatic disease (2) WBC 9.8 (3) Mg 1.7 Recent Travel: pt denies PAST MEDICAL HISTORY: HTN, afib, HLD IDDM CKD GERD colon CA s/p colectomy/colostomy 2011 PAST SURGICAL HISTORY: mediport placed 08/18/17 lap incisional hernia repair with lysis of adhesions 08/31/14 colon resection / colostomy 2011 with later colostomy reversal hysterectomy 1999 cholecystectomy 2004 Social History: Smoking: now 1/2 PPD; h/o 1.5 ppd since age 15 Alcohol: pt denies Drugs: pt denies Family History: mother alive, h/o irreg heart beat, CVA father age 33, suicide 2 brothers, one with HTN Allergies No Known Drug Allergies Allergy (Verified 09/09/17 23:57) Medical Tape Allergy (Uncoded 09/09/17 23:56) HOME MEDICATIONS: 3 Medication Instructions Recorded Atorvastatin Ca [Lipitor] 20 mg PO HS #0 tablet 01/14/14 Insulin Pump Controller [Snap 0 units SQ ASDIR 04/14/14 Insulin Pump Controller] Gabapentin 300 mg PO BID #60 capsule 08/23/14 Apixaban [Eliquis -] 5 mg PO BID #60 tablet 06/24/17 Diltiazem Cd [Cardizem Cd -] 120 mg PO DAILY #30 cap.cd.24h 06/24/17 Ramipril [Altace] 5 mg PO DAILY #30 tab 06/24/17 Metoprolol Succinate 50 mg PO DAILY 08/14/17 Oxycodone HCl/Acetaminophen 1 - 2 tab PO Q4H PRN #20 tablet 08/18/17 [Percocet 5/325 -] MDD 6 REVIEW OF SYSTEMS CONSTITUTIONAL: Absent: fever, chills, diaphoresis, generalized weakness, malaise, loss of appetite, weight change HEENT: Absent: rhinorrhea, nasal congestion, throat pain, throat swelling, difficulty swallowing, mouth swelling, ear pain, eye pain, visual changes CARDIOVASCULAR: Absent: chest pain, syncope, palpitations, irregular heart rate, lightheadedness , peripheral edema RESPIRATORY: Absent: cough, shortness of breath, dyspnea with exertion, orthopnea, wheezing, stridor, hemoptysis GASTROINTESTINAL: Present: nausea, vomiting Absent: abdominal pain, abdominal distension, diarrhea, constipation, melena, hematochezia GENITOURINARY: Absent: dysuria, frequency, urgency, hesitancy, hematuria, flank pain, genital pain MUSCULOSKELETAL: Absent: myalgia, arthralgia, joint swelling, back pain, neck pain SKIN: Absent: rash, itching, pallor HEMATOLOGIC/IMMUNOLOGIC: Absent: easy bleeding, easy bruising, lymphadenopathy, frequent infections ENDOCRINE: Absent: unexplained weight gain, unexplained weight loss, heat intolerance, cold intolerance NEUROLOGIC: Present: headache Absent: focal weakness or paresthesias, dizziness, unsteady gait, seizure, mental status changes, bladder or bowel incontinence PSYCHIATRIC: Absent: anxiety, depression, suicidal or homicidal ideation, hallucinations. PHYSICAL EXAMINATION Vital Signs - 24 hr 3 09/09/17 09/09/17 09/10/17 21:50 23:23 02:31 Temperature 97.6 F 97.8 F Pulse Rate 89 Pulse Rate [ 97 H 88 Right Radial] Respiratory 18 17 20 Rate Blood Pressure 200/95 Blood Pressure 201/95 189/90 [Right Arm] O2 Sat by Pulse 98 97 Oximetry (%) GENERAL: Awake, alert, and fully oriented, in no acute distress. HEAD: Normal with no signs of trauma. EYES: Pupils equal, round and reactive to light, extraocular movements intact, sclera anicteric, conjunctiva clear. No lid lag. EARS, NOSE, THROAT: Ears normal, nares patent, oropharynx clear without exudates. Moist mucous membranes. NECK: Normal range of motion, supple without lymphadenopathy, JVD, or masses. LUNGS: Breath sounds equal, + wheezing bilat. No accessory muscle use. HEART: Regular rate and rhythm, normal S1 and S2 without murmur, rub or gallop. ABDOMEN: Soft, nontender, not distended, normoactive bowel sounds, no guarding, no rebound, no masses. No hepatomegaly or splenomegaly. MUSCULOSKELETAL: Normal range of motion at all joints. No bony deformities or tenderness. No CVA tenderness. UPPER EXTREMITIES: 2+ pulses, warm, well-perfused. No cyanosis. No clubbing. No peripheral edema. LOWER EXTREMITIES: 2+ pulses, warm, well-perfused. No calf tenderness. No peripheral edema. NEUROLOGICAL: Cranial nerves II-XII intact. Normal speech. Gait not observed. PSYCHIATRIC: Cooperative. Good eye contact. Appropriate mood and affect. SKIN: Warm, dry, normal turgor, no rashes or lesions noted, normal capillary refill. Laboratory Results - last 24 hr 3 09/09/17 09/09/17 09/09/17 22:58 22:58 22:58 WBC 9.8 RBC 4.40 Hgb 11.5 D Hct 35.7 MCV 81.0 MCH 26.2 MCHC 32.3 RDW 16.3 H Plt Count 493 H MPV 6.7 L Neutrophils % 90.9 H D Lymphocytes % 7.3 L D Monocytes % 0.8 L D Eosinophils % 0.1 D Basophils % 0.9 PT with INR 12.90 H INR 1.14 Sodium 139 Potassium 5.0 Chloride 104 Carbon Dioxide 22 Anion Gap 13 BUN 23 H D Creatinine 1.5 H D Creat Clearance w eGFR 35.42 Random Glucose 231 H D Calcium 9.6 Magnesium 1.7 L Total Bilirubin 0.4 D AST 19 D ALT 16 Alkaline Phosphatase 187 H Creatine Kinase 94 Troponin I < 0.02 Total Protein 7.9 Albumin 3.5 Total Amylase 68 D Lipase 125 Urine Color Urine Appearance Urine pH Ur Specific [place] Urine Protein Urine Glucose (UA) Urine Ketones Urine Blood Urine Nitrite Urine Bilirubin Urine Urobilinogen Urine WBC (Auto) Urine RBC (Auto) Ur Epithelial Cells Urine Bacteria Hyaline Casts Urine Mucus Blood Type Antibody Screen 3 09/09/17 09/10/17 22:58 00:13 WBC RBC Hgb Hct MCV MCH MCHC RDW Plt Count MPV Neutrophils % Lymphocytes % Monocytes % Eosinophils % Basophils % PT with INR INR Sodium Potassium Chloride Carbon Dioxide Anion Gap BUN Creatinine Creat Clearance w eGFR Random Glucose Calcium Magnesium Total Bilirubin AST ALT Alkaline Phosphatase Creatine Kinase Troponin I Total Protein Albumin Total Amylase Lipase Urine Color Ltyellow Urine Appearance Slcloudy Urine pH 5.0 Ur Specific [place] 1.015 Urine Protein 3+ H Urine Glucose (UA) 3+ H Urine Ketones Negative Urine Blood 1+ H Urine Nitrite Negative Urine Bilirubin Negative Urine Urobilinogen Negative Urine WBC (Auto) 3 Urine RBC (Auto) 51 Ur Epithelial Cells Rare Urine Bacteria Rare Hyaline Casts 2 Urine Mucus Rare Blood Type O POSITIVE Antibody Screen Negative Radiology Reports EXAM: CT HEAD without contrast HISTORY: History of lung and colon cancer COMPARISON: None. THIS IS A PRELIMINARY REPORT FROM IMAGING REGULATORY ASSISTANT FINDINGS: There is focal low attenuation in the right periventricular white matter of the temporal parietal lobe and within the bilateral inferior cerebellum. There is no intracranial bleed. There is no deviation of midline structures. Sulci are not effaced. Ventricles are normal in caliber. Intracranial vascular structures are normal in attenuation IMPRESSION: Low attenuation areas in the cerebellum and right parietal white matter may reflect underlying edema from metastatic disease. Correlation with history and comparison with prior studies is recommended. MRI with vascular contrast would be helpful for further evaluation THIS DOCUMENT HAS BEEN ELECTRONICALLY SIGNED Maxx Barraza MD 09/10/2017 02:14 EST ASSESSMENT/PLAN: 62yF with PMH colon CA with mets to lung, HTN, Afib, HLD, IDDM, CKD, GERD presented to ED with nausea and vomiting. Nausea and vomiting-chemo induced - ondansetron 4mg IVPB q6h PRN - metoclopramide 10mg IVPB q6h PRN - would add tigan or compazine IM if above not effective - received 2L NS in ED, cont NS @ 83cc/hr Abnormal head CT, possible metastatic disease - would obtain MRI head HTN - bp uncontrolled, but did not receive meds yesterday, meds given in ED, cardizem given at 5am will hold todays dose unless BP remains elevated Afib - HR controlled, cont toprol and cardizem - cont eliquis CKD - creatinine slightly above best value of 1.2 in June, cont IVF, avoid nephrotoxic agents IDDM - cont insulin pump - BGM AC/HS with novolog sliding scale (or pt may give via pump) DVT PPX - cont home eliquis FEN - NS @83cc/hr - BMP with Mg in am - clear liquids as tolerated Dispo: Pt currently requires further observation for management of her emergent condition. Visit type - Emergency Visit Emergency Visit: Yes ED Registration Date: 09/09/17 Care time: The patient presented to the Emergency Department on the above date and was hospitalized for further evaluation of their emergent condition. - New Patient This patient is new to me today: Yes Date on this admission: 09/10/17 - Critical Care Critical Care patient: No
[2017-09-10] MEDS: INSULIN SLIDING SCALE (NOVOLOG) 1 VIAL SQ SCH ×3 (07:00→17:55)
[2017-09-10 08:28] LABS: BASO % 0.4 % (0-2.0); HEMATOCRIT 32.6 % (32.4-45.2); HEMOGLOBIN 10.3 GM/dL (10.7-15.3); LYMPH % 8.4 % (8-40); MCH 25.8 pg (25.7-33.7); MCHC 31.4 g/dl (32.0-36.0); MEAN PLT VOLUME 6.7 fl (7.5-11.1); MONO % 2.2 % (3.8-10.2); PLATELET COUNT 453 K/MM3 (134-434); RBC 3.98 M/mm3 (3.60-5.2); RDW 16.1 % (11.6-15.6); WHITE BLOOD COUNT 8.5 K/mm3 (4.0-10.0)
[2017-09-10 08:51] LABS: CHLORIDE 106 mmol/L (98-107); POTASSIUM 4.7 mmol/L (3.5-5.1); SODIUM 140 mmol/L (136-145)
[2017-09-10] MEDS: ONDANSETRON 4 MG/2 ML VIAL IVPUSH PRN ×2 (08:55→14:50)
[2017-09-10 09:04] LABS: ANION GAP 13 (8-16); BLOOD UREA NITROGEN 26 mg/dL (7-18); CALCIUM 8.8 mg/dL (8.5-10.1); CO2 21 mmol/L (21-32); CREATININE 1.4 mg/dL (0.55-1.02); GLUCOSE,RANDOM 264 mg/dL (74-106); MAGNESIUM 2.1 mg/dL (1.8-2.4); PHOSPHOROUS 4.6 mg/dL (2.5-4.9)
[2017-09-10] MEDS ORDERED: RAMIPRIL 5 MG CAPSULE (FP) PO SCH (10:00)
[2017-09-10] MEDS ORDERED: metoPROLOL SUCCINATE 25 MG TAB.SR.24H (FP) PO SCH (10:00)
[2017-09-10] MEDS ORDERED: METOPROLOL TARTRATE 5 MG/5 ML VIAL IVPUSH PRN (10:42)
[2017-09-10] MEDS ORDERED: PROCHLORPERAZINE INJECTION 10 MG/2 ML VIAL IVPB PRN (10:43)
--- NOTE | 2017-09-10 10:45 | CONSULT ---
Consult - text type - Consultation Consultation Note: Neurosurgery Consultation Renata Neely is a 62 year old female with a history of Colon CA with metastasis to the Lungs who is now receiving chemotherapy. She has had 1 day of severe nausea and vomiting as well as a severe headache. CT brain without contrast suggests a possible lesion within the Right Frontoparietal region. Patient with mild Left hemiparesis including face. +pronator drift on Left. Extinguishes to DSS on Left MRI with and without contrast will be very important to evaluate for brain metastasis and to guide treatment planning. Case discussed with patient and spouse. All questions answered.
--- NOTE | 2017-09-10 10:47 | PN ---
Progress Note, Physician Chief Complaint: CHART AND NOTES REVIEWED +NAUSEA AND VOMITING JUST COMPLETED CHEMOTHERAPY YESTERDAY - Current Medication List Current Medications: Active Medications Albuterol/Ipratropium (Duoneb -) 1 amp NEB QIDR CORDELIA Apixaban (Eliquis -) 5 mg PO BID COR[facility]IA Atorvastatin Calcium (Lipitor -) 20 mg PO HS CORDELIA Diltiazem HCl (Cardizem Cd -) 120 mg PO DAILY CORDELIA Gabapentin (Neurontin -) 300 mg PO BID [facility] Sodium Chloride (Normal Saline -) 1,000 mls @ 83 mls/hr IV ASDIR CORDELIA Last Admin: 09/10/17 07:00 Dose: 83 mls/hr Insulin Aspart (Novolog Vial Sliding Scale -) 1 vial SQ HS CORDELIA PRN Reason: Protocol Insulin Aspart (Novolog Vial Sliding Scale -) 1 vial SQ TIDAC CORDELIA PRN Reason: Protocol Last Admin: 09/10/17 07:00 Dose: 3 unit Metoprolol Tartrate (Lopressor Injection -) 5 mg IVPUSH Q4H PRN PRN Reason: HYPERTENSION Ondansetron HCl (Zofran Injection) 4 mg IVPUSH Q6H PRN PRN Reason: NAUSEA Last Admin: 09/10/17 08:55 Dose: 4 mg Prochlorperazine Edisylate (Compazine Injection -) 10 mg IVPB Q4H PRN PRN Reason: NAUSEA AND/OR VOMITING Ramipril (Altace -) 5 mg PO DAILY [facility] - Objective Vital Signs: Vital Signs Temperature 98 F 09/10/17 08:15 Pulse Rate 97 H 09/10/17 08:15 Respiratory Rate 18 09/10/17 08:15 Blood Pressure 185/83 09/10/17 08:15 O2 Sat by Pulse Oximetry (%) 97 09/09/17 23:23 Constitutional: Yes: Moderate Distress Eyes: Yes: WNL HENT: Yes: WNL Neck: Yes: WNL Cardiovascular: Yes: WNL Respiratory: Yes: Cough, On Nasal O2 Gastrointestinal: Yes: WNL Genitourinary: Yes: WNL Musculoskeletal: Yes: Muscle Weakness Extremities: Yes: Other Edema: No Peripheral Pulses WNL: Yes Integumentary: Yes: WNL Wound/Incision: Yes: Clean/Dry Neurological: Yes: Weakness ...Motor Strength: LLE, RLE Psychiatric: Yes: Other Labs: CBC, BMP 09/10/17 07:40 09/10/17 07:40 INR, PTT INR 1.14 (0.82-1.09) 09/09/17 22:58 Problem List - Problems (1) Brain metastasis Assessment/Plan: WILL RULE OUT WITH MRI AND NEUROSURGERY F/U Code(s): C79.31 - SECONDARY MALIGNANT NEOPLASM OF BRAIN (2) Headache Code(s): R51 - HEADACHE Qualifiers: Headache chronicity pattern: unspecified pattern Intractability: intractable (3) Intractable vomiting with nausea Code(s): R11.2 - NAUSEA WITH VOMITING, UNSPECIFIED Qualifiers: Vomiting type: unspecified Qualified Code(s): R11.2 - Nausea with vomiting , unspecified (4) SUSAN (acute kidney injury) Code(s): N17.9 - ACUTE KIDNEY FAILURE, UNSPECIFIED (5) Cancer, colon Code(s): C18.9 - MALIGNANT NEOPLASM OF COLON, UNSPECIFIED Qualifiers: Colon location: unspecified part of colon Qualified Code(s): C18.9 - Malignant neoplasm of colon, unspecified (6) Lung mass Code(s): R91.8 - OTHER NONSPECIFIC ABNORMAL FINDING OF LUNG FIELD Assessment/Plan CLEAR DIET CRACKERS AND GINGERALE IV PROTONIX COMPAZINE ZOFRAN IVF RULE CHEMOTHERAPY SIDE EFFECT VS OTHER ? VERTIGO? PATIENT C/O DIZZINESS RULE OUT BRAIN METS MRI BRAIN NEUROSURGERY
[2017-09-10] MEDS ORDERED: FOLIC ACID INJECTION - 1 MG, THIAMINE HCL 100 MG, MULTIVIT INJECTION ADULT 10 ML in SOD... IVPB ONE (10:49)
[2017-09-10] MEDS ORDERED: PANTOPRAZOLE SODIUM 40 MG VIAL IVPUSH SCH (11:00)
--- NOTE | 2017-09-10 11:23 | CON.GI ---
Consult Consult Specialty:: GI - History of Present Illness History of Present Illness: Chart reviewed. Called to evaluate this 62 yof with hx of colon cancer, s/p resection in 2011, metastatic disease to the lungs and now possibly to be to the brain. Admitted yesterday from outpatient chemo unit where she was about to receive her firs dose of chemo, however due to port malfunction no drug was administered. The patient was admitted for severe headache associated with nausea and vomiting. A non-contrast head CT showed possible metastatic drain disease At the time of this encounter, the patient has apparent right facial asymmetry and weakens. Keeping eyes open worsens headache and triggers nausea, followed by non-projectile vomiting. No hematochezia, hematemesis, or melena, reported. The patient had colonoscopy [address] Jones[address] EGD - few years go. No history of PUD, gastritis, esophagitis. No history of weight loss. at bedside - History Source History Provided By: Patient, Family Member (), Medical Record - Past Medical History Cardio/Vascular: Yes: HTN, Hyperlipdemia Gastrointestinal: Yes: Cancer (COLON), GERD Psych: Yes: Anxiety Endocrine: Yes: Diabetes Mellitus (ON INSULIN PUMP) - Past Surgical History Past Surgical History: Yes: Colectomy (2 YRS AGO COLON CA), Hernia Repair ( icisional) - Alcohol/Substance Use Hx Alcohol Use: No - Smoking History Smoking history: Former smoker Have you smoked in the past 12 months: Yes Aproximately how many cigarettes per day: 0 - Social History Usual Living Arrangement: With Spouse ADL: Independent History of Recent Travel: No Home Medications - Allergies Allergies/Adverse Reactions: Allergies Allergy/AdvReac Type Severity Reaction Status Date / Time No Known Drug Allergies Allergy Verified 09/09/17 23:57 Medical Tape Allergy Uncoded 09/09/17 23:56 - Home Medications Home Medications: Ambulatory Orders Atorvastatin Ca [Lipitor] 20 mg PO HS #0 tablet 01/14/14 Insulin Pump Controller [Snap Insulin Pump Controller] 0 units SQ ASDIR Gabapentin 300 mg PO BID #60 capsule 08/23/14 Apixaban [Eliquis -] 5 mg PO BID #60 tablet 06/24/17 Diltiazem Cd [Cardizem Cd -] 120 mg PO DAILY #30 cap.cd.24h 06/24/17 Ramipril [Altace] 5 mg PO DAILY #30 tab 06/24/17 Metoprolol Succinate 50 mg PO DAILY 08/14/17 Oxycodone HCl/Acetaminophen [Percocet 5/325 -] 1 - 2 tab PO Q4H PRN #20 tablet MDD 6 08/18/17 Family Disease History - Family Disease History Family History: Unremarkable Review of Systems Findings/Remarks: As per H&P, HPI Physical Exam-GI Vital Signs: Vital Signs Temperature 98 F 09/10/17 08:15 Pulse Rate 97 H 09/10/17 08:15 Respiratory Rate 18 09/10/17 08:15 Blood Pressure 185/83 09/10/17 08:15 O2 Sat by Pulse Oximetry (%) 97 09/09/17 23:23 Constitutional: Yes: Diaphoresis, Mild Distress Eyes: Yes: Conjunctiva Clear, Ptosis. No: Sclera Icterus Respiratory: Yes: Stridor, Tachypnea Gastrointestinal Inspection: No: Ascites, Distention ...Auscultate: Yes: Normoactive Bowel Sounds Neurological: Yes: Facial Droop, Lethargy. No: Aphasia, Dysarthria Labs: CBC, BMP 09/10/17 07:40 09/10/17 07:40 INR, PTT INR 1.14 (0.82-1.09) 09/09/17 22:58 Abnormal Lab Results 09/09/17 09/09/17 09/09/17 22:58 22:58 22:58 Hgb MCHC RDW 16.3 H Plt Count 493 H MPV 6.7 L Neutrophils % 90.9 H D Lymphocytes % 7.3 L D Monocytes % 0.8 L D PT with INR 12.90 H BUN 23 H D Creatinine 1.5 H D Random Glucose 231 H D Magnesium 1.7 L Alkaline Phosphatase 187 H Urine Protein Urine Glucose (UA) Urine Blood 09/10/17 09/10/17 09/10/17 00:13 07:40 07:40 Hgb 10.3 L D MCHC 31.4 L RDW 16.1 H Plt Count 453 H MPV 6.7 L Neutrophils % 89.0 H Lymphocytes % Monocytes % 2.2 L D PT with INR BUN 26 H Creatinine 1.4 H Random Glucose 264 H Magnesium Alkaline Phosphatase Urine Protein 3+ H Urine Glucose (UA) 3+ H Urine Blood 1+ H Imaging - Results Cat Scan: Report Reviewed Problem List - Problems (1) Brain metastasis Code(s): C79.31 - SECONDARY MALIGNANT NEOPLASM OF BRAIN (2) Headache Code(s): R51 - HEADACHE Qualifiers: Headache chronicity pattern: unspecified pattern Intractability: intractable (3) Intractable vomiting with nausea Code(s): R11.2 - NAUSEA WITH VOMITING, UNSPECIFIED Qualifiers: Vomiting type: unspecified Qualified Code(s): R11.2 - Nausea with vomiting , unspecified Assessment/Plan A 62 yof with new neurological findings on exam and imaging, nausea with vomiting and headache. Do not immediately suspect gastrointestinal etiology of nausea and vomiting. Strongly suspect Neurological etiology. New facial weakens and asymmetry as of last night, per pts Neurology consult MRI as ordered Antiemetics as ordered Oncology Will follow
[2017-09-10] MEDS ORDERED: ACETAMINOPHEN 1000 MG/100 ML VIAL (NON FORMULARY) IVPB ONE (11:33)
--- NOTE | 2017-09-10 11:41 | RAPID ---
Physical Examination Vital Signs: Vital Signs Temperature 98 F 09/10/17 08:15 Pulse Rate 93 H 09/10/17 11:31 Respiratory Rate 18 09/10/17 08:15 Blood Pressure 162/98 09/10/17 11:31 O2 Sat by Pulse Oximetry (%) 97 09/09/17 23:23 Findings/Remarks: Called to Rapid response for Elevated BP and possible new facial droop. Upon arrival patient was lethargic with eyes closed. She was able to follow commands. She was asked to smile and there was no facial droop noted. Muscle strength of upper and lower ext. was assessed and found to be 4/5 in bilater upper and lower ext. She was complaining of headache and fatigue. She denied CP , SOB, palpitations, N/V. Constitutional: Yes: Mild Distress Eyes: Yes: Conjunctiva Clear HENT: Yes: Atraumatic, Normocephalic Cardiovascular: Yes: Regular Rate and Rhythm, Murmur (2/6 NANCY RSB) Respiratory: Yes: Regular, CTA Bilaterally Gastrointestinal: Yes: Normal Bowel Sounds, Soft Peripheral Pulses: Left Doralis Pedis: 1+, Right Dorsalis Pedis: 1+ Neurological: Yes: Lethargy. No: Facial Droop, Weakness Labs: CBC, BMP 09/10/17 07:40 09/10/17 07:40 Rapid Response - Rapid Response Assessment: * No facial droop noted- descision was to not call code rae. * Patient is known metastatic cancer. This may represent new brain mets. * To be seen by Neurology and Neurosurgery later today. * For her headache she was ordered IV tylenol 1000mg once. * Elevated BP most likely 2/2 pain. * For her HTN ordered Hydralazine IV 10mg Q6H PRN for SBP >140
[2017-09-10] MEDS: hydrALAZINE HCL 20 MG/ML VIAL IVPUSH PRN ×2 (12:24→17:35)
[2017-09-10] MEDS: GABAPENTIN 300 MG CAPSULE (FP) PO SCH ×2 (12:41→22:54)
[2017-09-10] MEDS: APIXABAN 5 MG TABLET PO SCH ×2 (12:41→22:54)
[2017-09-10] MEDS: MECLIZINE HCL 25 MG TABLET (FP) PO SCH ×2 (13:11→17:13)
--- NOTE | 2017-09-10 13:16 | EKG ---
Test Reason : Blood Pressure : / mmHG Vent. Rate : 091 BPM Atrial Rate : 091 BPM P-R Int : 132 ms QRS Dur : 080 ms QT Int : 370 ms P-R-T Axes : 072 053 071 degrees QTc Int : 455 ms POOR DATA QUALITY, INTERPRETATION MAY BE ADVERSELY AFFECTED NORMAL SINUS RHYTHM NONSPECIFIC ST ABNORMALITY ABNORMAL ECG WHEN COMPARED WITH ECG OF 18-AUG-2017 11:36, CRITERIA FOR SEPTAL INFARCT ARE NO LONGER PRESENT Confirmed by JANAK ALBERTO MD ([id number]) on 09/10/2017 1:16:09 PM Referred By: Confirmed By:JANAK ALBERTO MD
--- NOTE | 2017-09-10 13:28 | CON.CARD ---
Consult Consult Specialty:: Cardiology Referred by:: macarena Reason for Consultation:: htn - History of Present Illness Chief Complaint: nausea History of Present Illness: 62 year old with a pmhx of htn, afib on apixaban, hld, dm, ckd, gerd, and colon CA s/p colectomy 2011 with mets to lung sent as was scheduled to receive chemo but port not working and patient c/o nausea and vomiting. +headache. Concern for lesion on head ct. This is a 62 year old female with a past medical history significant for colon CA with mets to lung currently on chemo, unable to receive chemo today due to port difficulties who presented to the ED with nausea and vomiting today and last night. She also had a headache earlier. She did not take any of her BP medication yesterday. - History Source History Provided By: Patient, Medical Record Limitations to Obtaining History: No Limitations - Past Medical History Cardio/Vascular: Yes: HTN, Hyperlipdemia Gastrointestinal: Yes: Cancer (COLON), GERD Psych: Yes: Anxiety Endocrine: Yes: Diabetes Mellitus (ON INSULIN PUMP) - Past Surgical History Past Surgical History: Yes: Colectomy (2 YRS AGO COLON CA), Hernia Repair ( icisional) - Alcohol/Substance Use Hx Alcohol Use: No - Smoking History Smoking history: Former smoker Have you smoked in the past 12 months: Yes Aproximately how many cigarettes per day: 0 - Social History Usual Living Arrangement: With Spouse ADL: Independent History of Recent Travel: No Home Medications - Allergies Allergies/Adverse Reactions: Allergies Allergy/AdvReac Type Severity Reaction Status Date / Time No Known Drug Allergies Allergy Verified 09/09/17 23:57 Medical Tape Allergy Uncoded 09/09/17 23:56 - Home Medications Home Medications: Ambulatory Orders Atorvastatin Ca [Lipitor] 20 mg PO HS #0 tablet 01/14/14 Insulin Pump Controller [Snap Insulin Pump Controller] 0 units SQ ASDIR Gabapentin 300 mg PO BID #60 capsule 08/23/14 Apixaban [Eliquis -] 5 mg PO BID #60 tablet 06/24/17 Diltiazem Cd [Cardizem Cd -] 120 mg PO DAILY #30 cap.cd.24h 06/24/17 Ramipril [Altace] 5 mg PO DAILY #30 tab 06/24/17 Metoprolol Succinate 50 mg PO DAILY 08/14/17 Oxycodone HCl/Acetaminophen [Percocet 5/325 -] 1 - 2 tab PO Q4H PRN #20 tablet MDD 6 08/18/17 Vital Signs: Vital Signs Temperature 98 F 09/10/17 08:15 Pulse Rate 93 H 09/10/17 11:31 Respiratory Rate 18 09/10/17 08:15 Blood Pressure 162/98 09/10/17 11:31 O2 Sat by Pulse Oximetry (%) 97 09/09/17 23:23 Constitutional: Yes: Mild Distress Neck: Yes: WNL Respiratory: Yes: Rhonchi Gastrointestinal: Yes: Soft Cardiovascular: Yes: Regular Rate and Rhythm JVD: No Carotid Bruit: No Heart Sounds: Yes: S1, S2 Murmur: No: Systolic Murmur Edema: No - Other Data Labs, Other Data: CBC, BMP 09/10/17 07:40 09/10/17 07:40 INR, PTT INR 1.14 (0.82-1.09) 09/09/17 22:58 Troponin, BNP 09/09/17 22:58 Troponin I < 0.02 Troponin, BNP 09/09/17 22:58 Troponin I < 0.02 Imaging - Results Chest X-ray: Report Reviewed Cat Scan: Report Reviewed Problem List - Problems (1) Atrial fibrillation Code(s): I48.91 - UNSPECIFIED ATRIAL FIBRILLATION (2) HTN (hypertension) Code(s): I10 - ESSENTIAL (PRIMARY) HYPERTENSION Assessment/Plan 62 year old with a pmhx of htn, afib on apixaban, hld, dm, ckd, gerd, and colon CA s/p colectomy 2011 with mets to lung sent as was scheduled to receive chemo but port not working and patient c/o nausea and vomiting. +headache. Concern for lesion on head ct. This is a 62 year old female with a past medical history significant for colon CA with mets to lung currently on chemo, unable to receive chemo today due to port difficulties who presented to the ED with nausea and vomiting today and last night. She also had a headache earlier. She did not take any of her BP medication yesterday. 1) Cardiac -patient with history of afib. Today ekg sinus rhythm at 91bpm with no acute ischemic changes. Metoprolol and diltiazem PO are on hold. No tachycardia or afib here. Was on apixaban at home but concern for brain mets. Would hold AC and clarify if patient has brain mets with MRI Neurology follow up. 2) HTN Meds on hold. If can tolerate meds can restart home PO meds but if not can start hydralazine 10mg IV q6 as needed. If patient develops tachycardia/afib rvr than will also start IV av sara blocking agents 3) SOB Consider pulmonary evaluation. H/o lung CA Being transferred to tele.
[2017-09-10] MEDS: ALBUTEROL SO4 2.5/IPRATROPIUM 0.5 INH SOL 3 ML VIAL.NEB. NEB SCH ×2 (15:54→18:30)
--- NOTE | 2017-09-10 16:21 | PN ---
Progress Note (short form) - Note Progress Note: Vascular Surgery Pt seen and examined. Called to evaluate right chest port. Pt had a issue during last infusion therapy where there was blood coming back in the tubing secondary to venous hypertension. CT chest is ordered to look at tip of cath and placement. Can increase pressure during infusion to pump in meds. The port is working fine -- good pull back and infusion. Will follow CT Ralph Sarmiento DO
--- NOTE | 2017-09-10 18:05 | CONSULT ---
Consult Consult Specialty:: oncology - History of Present Illness History of Present Illness: 62 year old with a pmhx of htn, afib on apixaban, hld, dm, ckd, gerd, and colon CA s/p colectomy 2011 with mets to lung sent as was scheduled to receive chemo but port not working and patient c/o nausea and vomiting. +headache. Concern for lesion on head ct. - History Source History Provided By: Family Member, Medical Record Limitations to Obtaining History: Clinical Condition - Past Medical History Cardio/Vascular: Yes: HTN, Hyperlipdemia Gastrointestinal: Yes: Cancer (COLON), GERD Psych: Yes: Anxiety Endocrine: Yes: Diabetes Mellitus (ON INSULIN PUMP) - Past Surgical History Past Surgical History: Yes: Colectomy (2 YRS AGO COLON CA), Hernia Repair ( icisional) - Alcohol/Substance Use Hx Alcohol Use: No - Smoking History Smoking history: Former smoker Have you smoked in the past 12 months: Yes Aproximately how many cigarettes per day: 0 - Social History Usual Living Arrangement: With Spouse ADL: Independent History of Recent Travel: No Home Medications - Allergies Allergies/Adverse Reactions: Allergies Allergy/AdvReac Type Severity Reaction Status Date / Time No Known Drug Allergies Allergy Verified 09/09/17 23:57 Medical Tape Allergy Uncoded 09/09/17 23:56 - Home Medications Home Medications: Ambulatory Orders Atorvastatin Ca [Lipitor] 20 mg PO HS #0 tablet 01/14/14 Insulin Pump Controller [Snap Insulin Pump Controller] 0 units SQ ASDIR Gabapentin 300 mg PO BID #60 capsule 08/23/14 Apixaban [Eliquis -] 5 mg PO BID #60 tablet 06/24/17 Diltiazem Cd [Cardizem Cd -] 120 mg PO DAILY #30 cap.cd.24h 06/24/17 Ramipril [Altace] 5 mg PO DAILY #30 tab 06/24/17 Metoprolol Succinate 50 mg PO DAILY 08/14/17 Oxycodone HCl/Acetaminophen [Percocet 5/325 -] 1 - 2 tab PO Q4H PRN #20 tablet MDD 6 08/18/17 Physical Exam Vital Signs: Vital Signs Temperature 98.1 F 09/10/17 15:23 Pulse Rate 93 H 09/10/17 15:23 Respiratory Rate 20 09/10/17 15:23 Blood Pressure 185/95 09/10/17 15:23 O2 Sat by Pulse Oximetry (%) 97 09/09/17 23:23 Constitutional: Yes: Moderate Distress HENT: Yes: Atraumatic, Normocephalic Cardiovascular: Yes: Tachycardia Respiratory: Yes: Regular Gastrointestinal: Yes: Normal Bowel Sounds, Soft Extremities: Yes: WNL Edema: No Labs: CBC, BMP 09/10/17 07:40 09/10/17 07:40 Problem List - Problems (1) Intractable vomiting with nausea Code(s): R11.2 - NAUSEA WITH VOMITING, UNSPECIFIED Qualifiers: Vomiting type: unspecified Qualified Code(s): R11.2 - Nausea with vomiting , unspecified (2) Atrial fibrillation Code(s): I48.91 - UNSPECIFIED ATRIAL FIBRILLATION (3) Cancer, colon Code(s): C18.9 - MALIGNANT NEOPLASM OF COLON, UNSPECIFIED Qualifiers: Colon location: unspecified part of colon Qualified Code(s): C18.9 - Malignant neoplasm of colon, unspecified (4) Metastatic colorectal cancer Code(s): C78.5 - SECONDARY MALIGNANT NEOPLASM OF LARGE INTESTINE AND RECTUM Assessment/Plan mCRC -mets to lung ( surgical path report reviewed in [facility]) -follows with -planned to receive chemotherapy yesterday did not due to port issues and planned for surgical c/s and CT chest. -left message with their office N/V: CTH reviewed ?mets ?infarct ?etiology will await MR brain before considering dex d/w neuro HTN/Afib -cardiology note reviewed -eliquis on hold given the CTH findings -pt SBP continues to be >180s receiving Hydralazine prn. -d/w ICU ,no beds for now, resident/RIVET PASSER to evaluate through -Pulm/CCM consult. d/w RN
[2017-09-10] MEDS ORDERED: DEXAMETHASONE SOD PHOSPHATE 20 MG/5 ML VIAL IVPB SCH (18:30)
[2017-09-10] MEDS ORDERED: DEXAMETHASONE SOD PHOSPHATE 20 MG/5 ML VIAL IVPB ONE (18:30)
[2017-09-10] MEDS ORDERED: DEXAMETHASONE SOD PHOSPHATE 4 MG/1 ML VIAL IVPUSH ONE (21:00)
[2017-09-10] MEDS ORDERED: ROCURONIUM BROMIDE 50 MG/5 ML VIAL ONE (21:43)
[2017-09-10] MEDS ORDERED: ETOMIDATE 20 MG/10 ML AMPUL IVPUSH ONE (21:43)
[2017-09-10] MEDS ORDERED: PHENYLEPHRINE HCL 10 MG/1 ML SINGLE DOSE VIAL ONE (21:45)
[2017-09-10] MEDS ORDERED: ePHEDrine SULFATE 50 MG/1 ML AMPULE ONE (21:45)
[2017-09-10] MEDS ORDERED: SUCCINYLCHOLINE CHLORIDE 200 MG/10 ML VIAL ONE (21:47)
[2017-09-10] MEDS ORDERED: SODIUM CHLORIDE 0.9% P/F 10 ML VIAL IJ ONE ×2 (21:47→23:36)
[2017-09-10] MEDS ORDERED: VASOPRESSIN 20 UNITS/ML VIAL IV ONE (21:54)
[2017-09-10] MEDS ORDERED: NOREPINEPHRINE BITARTRATE 4 MG/4 ML ML IV ONE (21:54)
[2017-09-10] MEDS ORDERED: INSULIN SLIDING SCALE (NOVOLOG) 1 VIAL SQ SCH (22:00)
[2017-09-10] MEDS ORDERED: ATORVASTATIN CA 20 MG TABLET (FP) PO SCH (22:00)
[2017-09-10] MEDS ORDERED: GENTAMICIN SO4 80 MG/2 ML VIAL ONE (22:40)
[2017-09-10] MEDS ORDERED: THROMBIN (BOVINE) 5,000 UNIT VIAL TP ONE (22:40)
[2017-09-10] MEDS ORDERED: LIDOCAINE 1%/EPI 1:100000 (20 ML MULTI DOSE VIAL) ONE (22:40)
[2017-09-10] MEDS ORDERED: HEPARIN NA (PORCINE) 5,000 UNITS/ML 1ML VIAL ONE (22:56)
[2017-09-10] MEDS ORDERED: LIDOCAINE HCL 0.5%, 5 MG/ML (50mL SDVIAL) ONE (22:56)
[2017-09-10] MEDS ORDERED: LIDOCAINE HCL 2% 100 MG/5 ML DISP.SYRIN ONE (23:05)
[2017-09-10] MEDS ORDERED: PROPOFOL 20 ML ONE ×3 (23:06→23:49)
[2017-09-10] MEDS ORDERED: ceFAZolin SODIUM 1 GM VIAL IVPB ONE (23:31)
[2017-09-10] MEDS ORDERED: LIDOCAINE HCL 1%, 10 MG/ML (20ML VIAL) ONE (23:35)
[2017-09-10] MEDS ORDERED: LIDOCAINE 1%/EPI 1:100000 (20 ML MULTI DOSE VIAL) IJ ONE (23:42)
[2017-09-10] MEDS ORDERED: METOPROLOL TARTRATE 5 MG/5 ML VIAL ONE (23:50)
[2017-09-11] MEDS ORDERED: GLYCOPYRROLATE 0.2 MG/1 ML VIAL ONE (00:24)
[2017-09-11] MEDS ORDERED: NEOSTIGMINE METHYLSULFATE 0.5 MG/ML - 10 ML MDV ONE (00:24)
[2017-09-11] MEDS ORDERED: ONDANSETRON 4 MG/2 ML VIAL ONE (00:24)
[2017-09-11] MEDS ORDERED: LABETALOL HCL 5 MG/1 ML (100MG/20 ML VIAL) ONE (00:35)
[2017-09-11] MEDS ORDERED: ALBUTEROL SO4 2.5/IPRATROPIUM 0.5 INH SOL 3 ML VIAL.NEB. NEB ONE (01:00)
[2017-09-11] MEDS ORDERED: IPRATROPIUM BR 0.02% 0.5 MG/2.5 ML VIAL.NEB. NEB SCH (01:15)
[2017-09-11 01:30] LABS: ARTERIAL BLD GAS O2 SATURATION 93.8 % (90-98.9)
[2017-09-11] MEDS ORDERED: LACTATED RINGERS SOLUTION 1,000 ML IV SCH (01:30)
--- NOTE | 2017-09-11 01:32 | PN ---
Progress Note (short form) - Note Progress Note: Thoracic Surgery: Pt admitted yesterday. Had nausea and balance issues. CT suggested multiple infarcts. Because of inability to flow chemo through port , recommended CT chest. CT chest showed port in arterial position. Pt taken to OR for removal and neurosurgery consulted to evaluate as well. She was alert and oriented at this time. Port removed in OR with hemostasis. Needs ICU neurologic monitoring. Discussed indepth with Dr. Pulido and Dr. Thompson. All of family's questions answered.
[2017-09-11 01:34] LABS: ARTERIAL BLOOD GAS pH 7.03 (7.35-7.45)
[2017-09-11 01:35] LABS: ARTERIAL BLOOD GAS BASE EXCESS -11.8 meq/l (-2-2)
[2017-09-11] MEDS ORDERED: dilTIAZem HCL 125 MG/25 ML - 25 ML VIAL ONE (01:37)
--- NOTE | 2017-09-11 01:38 | OP ---
Operative Note - Note: Operative Date: 09/11/17 Pre-Operative Diagnosis: Metastatic colorectal cancer Operation: Removal of mediport, vascular repair Findings: Port removed and defect sutured hemostatically with fine prolenes. No bleeding noted. Post-Operative Diagnosis: Same as Pre-op Surgeon: Misbah Puga Jacquard Loom Carpet Weaver: Jie Henry Anesthesiologist/CRUTCHING CONTRACTOR: Jie Henry Specimens Removed: Mediport Estimated Blood Loss (mls): 50 Operative Report Dictated: Yes
[2017-09-11] MEDS ORDERED: dilTIAZem HCL 50 MG/10 ML - 10 ML VIAL IVPUSH ONE (01:41)
[2017-09-11] MEDS ORDERED: ROCURONIUM BROMIDE 50 MG/5 ML VIAL ONE (01:43)
[2017-09-11] MEDS ORDERED: PROPOFOL 20 ML ONE (01:44)
[2017-09-11] MEDS: ALBUTEROL SO4 2.5/IPRATROPIUM 0.5 INH SOL 3 ML VIAL.NEB. NEB SCH (01:56)
[2017-09-11] MEDS ORDERED: DILTIAZEM INJECTION 125 MG in DEXTROSE 5%-WATER - 100 ML IVPB SCH (02:00)
[2017-09-11] MEDS ORDERED: PROCHLORPERAZINE INJECTION 10 MG/2 ML VIAL IVPB PRN (02:02)
[2017-09-11] MEDS ORDERED: ONDANSETRON 4 MG/2 ML VIAL IVPUSH PRN (02:02)
[2017-09-11] MEDS ORDERED: hydrALAZINE HCL 20 MG/ML VIAL IVPUSH PRN (02:02)
[2017-09-11] MEDS ORDERED: METOPROLOL TARTRATE 5 MG/5 ML VIAL IVPUSH PRN (02:02)
[2017-09-11] MEDS ORDERED: SODIUM CHLORIDE 1,000 ML IV SCH ×3 (02:02→06:12)
--- NOTE | 2017-09-11 02:13 | CONSULT ---
Consult Consult Specialty:: Pulm/ Critical Care Referred by:: Yuly Reason for Consultation:: s/p port removal, altered mental status - History of Present Illness Chief Complaint: nausea/ vomiting History of Present Illness: 62 y/o woman with h/o HTN, HLD, Afib (on Apixiban) IDDM, colon cancer s/p resection with lung mets receiving chemo who presented to ED nausea and vomiting. Per family pt went for chemo this morning but was unable to undergo infusion as the port was malfunctioning. She complained of nausea and vomiting which started on night prior to presentation. She also endorsed some loose stools, non-bloody as well as headache and chills. She denied chest pain, SOB, dizziness, fever, dysuria. She did not take any antihypertensives yesterday. In this setting she presented to the ED on Sep 09. VS in the ED: T 97.6, HR 89, BP 200/95, RR 18, O2 98% on RA. She underwent CT head which showed multiple foci of low attenuation suggestive of metastatic disease. Neurosurgery was consulted. Pt admitted to the floor for further work up and monitoring. MRI was planned and pt was found to have numerous acute bilateral infratentorial and supratentorial infarcts, possible occlusion of intracranial left vertebral artery, several chronic microbleeds within cerebral and cerebellar hemispheres bilaterally, and several small bilateral cerebral foci of nonischemic edema suggestive of metastatic neoplastic disease. While on the floor rapid response called for concern for new R facial droop and weakness. She was evaluated and felt not to have facial droop, mental status intact at the time. CT chest done on Sep 10 revealed distal tip of port was located in artery. Given concern that this was leading to ischemic changes on head CT, pt was taken to OR for port removal and vascular repair. Craniotomy was discussed at the time but given pts intact neuro status this was deferred. Pt was intubated and tolerated procedure well. Pt arrived in the ICU altered, moaning (apparently had been moaning prior to intubation), not following commands, recieiving neb. When neb removed pt de- satted to 70%, improved with supplemental O2 via face mask. Thoracic surgeon and Anesthesia by the bedside. Pt progressively hypertensive requiring dilt gtt to maintain goal MAP 70-90. ABG 7.03/76/107. Bi-pap initiated with plan to re- check ABG and intubate if not rapidly improving. Active Medications Atorvastatin Calcium (Lipitor -) 20 mg PO HS CORDELIA Dexamethasone Sodium Phosphate (Decadron Injection -) 4 mg IVPB Q6H-IV CORDELIA Gabapentin (Neurontin -) 300 mg PO BID CORDELIA Hydralazine HCl (Apresoline Injection -) 10 mg IVPUSH Q6H PRN PRN Reason: HYPERTENSION Diltiazem HCl 125 mg/ Dextrose 125 mls @ 5 mls/hr IVPB TITR CORDELIA; 5 MG/HR PRN Reason: Protocol Sodium Chloride (Normal Saline -) 1,000 mls @ 50 mls/hr IV ASDIR CORDELIA Insulin Aspart (Novolog Vial Sliding Scale -) 1 vial SQ HS CORDELIA PRN Reason: Protocol Insulin Aspart (Novolog Vial Sliding Scale -) 1 vial SQ TIDAC CORDELIA PRN Reason: Protocol Ipratropium [place] (Atrovent 0.02% Nebulizer -) 1 amp NEB QIDR CORDELIA Meclizine HCl (Antivert -) 25 mg PO Q6HPO PRN PRN Reason: VERTIGO Metoprolol Tartrate (Lopressor Injection -) 5 mg IVPUSH Q4H PRN PRN Reason: HYPERTENSION Ondansetron HCl (Zofran Injection) 4 mg IVPUSH Q6H PRN PRN Reason: NAUSEA Pantoprazole Sodium (Protonix Iv) 40 mg IVPUSH DAILY CORDELIA Prochlorperazine Edisylate (Compazine Injection -) 10 mg IVPB Q4H PRN PRN Reason: NAUSEA AND/OR VOMITING - History Source History Provided By: Medical Record Limitations to Obtaining History: Unresponsive - Past Medical History Cardio/Vascular: Yes: AFIB, HTN, Hyperlipdemia Gastrointestinal: Yes: Cancer (COLON), GERD Heme/Onc: Yes: Cancer, Current Chemotherapy Psych: Yes: Anxiety Endocrine: Yes: Diabetes Mellitus (ON INSULIN PUMP) - Past Surgical History Past Surgical History: Yes: Colectomy (2 YRS AGO COLON CA), Hernia Repair ( icisional) - Alcohol/Substance Use Hx Alcohol Use: No - Smoking History Smoking history: Former smoker Have you smoked in the past 12 months: Yes Aproximately how many cigarettes per day: 0 - Social History Usual Living Arrangement: With Spouse ADL: Independent History of Recent Travel: No Home Medications - Allergies Allergies/Adverse Reactions: Allergies Allergy/AdvReac Type Severity Reaction Status Date / Time No Known Drug Allergies Allergy Verified 09/09/17 23:57 Medical Tape Allergy Uncoded 09/09/17 23:56 - Home Medications Home Medications: Ambulatory Orders Atorvastatin Ca [Lipitor] 20 mg PO HS #0 tablet 01/14/14 Insulin Pump Controller [Snap Insulin Pump Controller] 0 units SQ ASDIR Gabapentin 300 mg PO BID #60 capsule 08/23/14 Apixaban [Eliquis -] 5 mg PO BID #60 tablet 06/24/17 Diltiazem Cd [Cardizem Cd -] 120 mg PO DAILY #30 cap.cd.24h 06/24/17 Ramipril [Altace] 5 mg PO DAILY #30 tab 06/24/17 Metoprolol Succinate 50 mg PO DAILY 08/14/17 Oxycodone HCl/Acetaminophen [Percocet 5/325 -] 1 - 2 tab PO Q4H PRN #20 tablet MDD 6 08/18/17 Family Disease History - Family Disease History Family History: Unable to Obtain Review of Systems Unable to obtain ROS, reason: pt altered Physical Exam Vital Signs: Vital Signs Temperature 97.7 F 09/10/17 19:50 Pulse Rate 92 H 09/10/17 19:50 Respiratory Rate 20 09/10/17 19:50 Blood Pressure 176/78 09/10/17 19:50 O2 Sat by Pulse Oximetry (%) 100 09/11/17 01:57 Constitutional: Yes: Well Nourished Eyes: Yes: Other (R pupil 3mm round, briskly reactive, L pupil 2mm, round briskly reactive) HENT: Yes: Other (surgical sites on neck/ chest dressing clean/ dry/ intact) Neck: Yes: Supple Cardiovascular: Yes: Regular Rate and Rhythm, S1, S2 Respiratory: Yes: Diminished, On BiPap, Poor Air Entry Gastrointestinal: Yes: Soft Extremities: Yes: WNL Edema: No Peripheral Pulses WNL: Yes Wound/Incision: Yes: Dressing Dry and Intact Neurological: Yes: Unresponsive, Other (altered, not following, moving all extremities) Labs: CBC, BMP 09/10/17 07:40 09/10/17 07:40 Imaging - Results Chest X-ray: Image Reviewed Cat Scan: Report Reviewed, Image Reviewed MRI: Report Reviewed Problem List - Problems (1) Hypercapnia Code(s): R06.89 - OTHER ABNORMALITIES OF BREATHING (2) Brain metastasis Code(s): C79.31 - SECONDARY MALIGNANT NEOPLASM OF BRAIN (3) Headache Code(s): R51 - HEADACHE Qualifiers: Headache chronicity pattern: unspecified pattern Intractability: intractable (4) Intractable vomiting with nausea Code(s): R11.2 - NAUSEA WITH VOMITING, UNSPECIFIED Qualifiers: Vomiting type: unspecified Qualified Code(s): R11.2 - Nausea with vomiting , unspecified (5) Metastatic colorectal cancer Code(s): C78.5 - SECONDARY MALIGNANT NEOPLASM OF LARGE INTESTINE AND RECTUM (6) Atrial fibrillation Code(s): I48.91 - UNSPECIFIED ATRIAL FIBRILLATION (7) Diabetes mellitus, insulin dependent (IDDM), uncontrolled Code(s): E10.65 - TYPE 1 DIABETES MELLITUS WITH HYPERGLYCEMIA (8) HLD (hyperlipidemia) Code(s): E78.5 - HYPERLIPIDEMIA, UNSPECIFIED (9) HTN (hypertension) Code(s): I10 - ESSENTIAL (PRIMARY) HYPERTENSION Assessment/Plan Assessment: 62 y/o woman with h/o HTN, HLD, Afib (on AC), IDDM and colon cancer s/p resection with lung mets on chemo who presented with nausea/ vomiting and dysfunctional chemo port, found to have brain mets as well as infarcts also with confirmed malpositioning of port in artery possibly leading to ischemic changes now s/p port removal. Neuro: Imaging consistent with presumed mets as well as bilateral ischemic foci and areas concerning for cerebral edema. Somewhat altered prior to general anesthesia now extubated, altered, moving all extremities, not following found to be hypercapneic -neurosurgery following -serial neuro checks -low threshold to repeat imaging for change in exam/ mental status -continue dexamethasone -consider seizure prophylaxis -maintain specific hemodynamic parameters as outlined below CV: HTN, HLD, Afib on AC at at baseline -cardiology consulted -close hemodynamic monitoring -diltiazem gtt for goal map 70-90 -cautious IVF - avoid fluid overload states in setting of possible cerebral edema -resume anticoagulation for afib in am - surgery ok with this Pulm: Extubated post-op, now hypercapneic likely in the setting of hypoventilation post-anesthesia; known lung mets -O2 as needed -initiate bi-pap with low threshold to re-intubate Heme/Onc: Colon Ca s/p resection now with mets to lung and likely brain on chemo , on AC at baseline, held now given new findings of brain mets -notify primary oncologist of admission -hold AC at present -likely initiate heparin gtt for AC in am Renal: CRI (baseline creat > 1.2) -monitor renal fxn -renally dose meds as indicated ID: immunocompromised at baseline. No indication of active infection -trend WBC, temp curve GI: -NPO given tenuous respiratory status/ altered mental status -PPI ppx Endo: IDDM -follow BG -sliding scale as needed PPX: -PPI -SCD - initiate heparin in am CODE: FULL Juhi Sharpe ACNP CCT: 35 mins
[2017-09-11] MEDS ORDERED: INSULIN REGULAR HUMAN 100 UNITS/ML *VIAL ONE (02:24)
[2017-09-11 02:29] LABS: ARTERIAL BLD GAS O2 SATURATION 98.5 % (90-98.9); ARTERIAL BLOOD GAS PCO2 42.9 mmHg (35-45)
[2017-09-11 02:35] LABS: ARTERIAL BLOOD GAS BASE EXCESS -10.7 meq/l (-2-2)
[2017-09-11] MEDS: DEXAMETHASONE SOD PHOSPHATE 4 MG/1 ML VIAL IVPB SCH ×3 (03:11→22:29)
--- NOTE | 2017-09-11 03:46 | HOSP ---
Subjective - Review of Symptoms Events since last encounter: Received TC from radiologist with MRI report at 8pm. + mult acute infarcts R&L cerebral hemispheres, Large infarct L cerebellum concerning for risk of herniation if swelling occurs; no swelling at present. Also metastatic disease right and L hemispheres. TC placed to neurologist Dr. Pulido, awaiting call back. Went to evaluate pt. Subjective: pt reports feeling a little better, headache slightly improved. Nausea/vomiting slightly improved but still with nausea. Pt did not report any arm or facial weakness yesterday on exam but now admits she did have it yesterday as well. Neurological: Yes: Weakness Physical Examination Vital Signs: Vital Signs - 24 hr 3 09/10/17 09/10/17 09/10/17 06:15 08:15 11:31 Temperature 98 F Pulse Rate 97 H 93 H Pulse Rate [ 84 Right Radial] Respiratory 16 18 Rate Blood Pressure 185/83 162/98 Blood Pressure 188/89 [Right Arm] O2 Sat by Pulse Oximetry (%) 3 09/10/17 09/10/17 09/10/17 15:15 15:20 15:23 Temperature 98 F 98.1 F Pulse Rate 80 93 H 93 H Pulse Rate [ Right Radial] Respiratory 18 20 Rate Blood Pressure 175/60 185/95 185/95 Blood Pressure [Right Arm] O2 Sat by Pulse 99 Oximetry (%) 3 09/10/17 09/10/17 09/10/17 17:45 18:00 19:50 Temperature 98.4 F 97.7 F Pulse Rate 91 H 94 H 92 H Pulse Rate [ Right Radial] Respiratory 20 20 20 Rate Blood Pressure 175/82 179/82 176/78 Blood Pressure [Right Arm] O2 Sat by Pulse Oximetry (%) Cardiovascular: Yes: Regular Rate and Rhythm, S1, S2 Respiratory: Yes: Wheezes Gastrointestinal: Yes: Normal Bowel Sounds, Soft Neurological: Yes: Facial Droop (mild right sided), Weakness (left arm and leg) ...Motor Strength: LUE (4/5), LLE (4/5), RUE (5/5), RLE (5/5) Labs: CBC, BMP 09/10/17 07:40 09/10/17 07:40 Hospitalist Encounter Assessment: Cerebral infarcts on MRI - Left sided weakness/facial droop present - Dr. Puga on unit at time of exam. Advised me CT chest revealed port in arterial position. Discussed both CT and MRI findings - Dr Anne contacted regarding MRI findings, plan to take pt to OR for port removal and possible posterior craniotomy/decompression. Dr. Puga discussed POC with daughter Rosario. - Received TC back from Dr. Pulido at 945. Advised him of current POC. He would NOT recommend taking pt to OR for craniotomy. Advised Dr. Pulido to discuss with Dr. Puga and Dr. Anne. He agreed to do same. Addendum: 0200: pt went to OR. Port removed. NO decompression done. Pt now in ICU 0540: Received TC from ICU that pt glucose 604 on BMP. 10u regular insulin IV x1. ABG ordered. Acetone added to labs. 0600: acetone 3+, started on insulin drip. ABG with only marginal improvement in pH, metabolic etiology. pt in DKA despite normal anion gap. pt pulling off bipap mask. put on 50% venti mask. calmed down. BGM q1h. BMP, ABG, Mg, NH4 ordered for 8am (pt has chiki in place for BP management) 0700: BGM still out of range. BMP ordered. Report given to ICU resident, Carol as well as PCP Demian.
[2017-09-11 04:25] LABS: HEMATOCRIT 26.7 % (32.4-45.2); HEMOGLOBIN 8.3 GM/dL (10.7-15.3); MCH 25.7 pg (25.7-33.7); MEAN CELL VOLUME 82.7 fl (80-96); MEAN PLT VOLUME 6.4 fl (7.5-11.1); PLATELET COUNT 372 K/MM3 (134-434); RBC 3.22 M/mm3 (3.60-5.2); RDW 16.5 % (11.6-15.6); WHITE BLOOD COUNT 11.7 K/mm3 (4.0-10.0)
[2017-09-11 05:15] LABS: ALBUMIN 2.7 g/dl (3.4-5.0); ALK PHOS 141 U/L (45-117); ANION GAP 15 (8-16); BILIRUBIN,TOTAL 0.2 mg/dL (0.2-1.0); BLOOD UREA NITROGEN 46 mg/dL (7-18); CHLORIDE 107 mmol/L (98-107); CO2 16 mmol/L (21-32); CREATININE 2.1 mg/dL (0.55-1.02); MAGNESIUM 2.2 mg/dL (1.8-2.4); POTASSIUM 5.4 mmol/L (3.5-5.1); SGOT/AST 10 U/L (15-37); SGPT/ALT 13 U/L (12-78); SODIUM 138 mmol/L (136-145); TOT PROT 5.7 g/dl (6.4-8.2)
[2017-09-11 05:17] LABS: GLUCOSE,RANDOM 604 mg/dL (74-106)
[2017-09-11] MEDS ORDERED: INSULIN REGULAR HUMAN 100 UNITS/ML *VIAL IVPUSH ONE (05:39)
[2017-09-11] MEDS ORDERED: MECLIZINE HCL 25 MG TABLET (FP) PO PRN (06:00)
[2017-09-11] MEDS ORDERED: INSULIN REGULAR 100 UNITS in SODIUM CHLORIDE 99 ML IVPB SCH (06:00)
[2017-09-11 06:02] LABS: ARTERIAL BLD GAS O2 SATURATION 96.7 % (90-98.9); ARTERIAL BLOOD GAS PCO2 35.6 mmHg (35-45); ARTERIAL BLOOD GAS PO2 97.1 mmHg (80-100)
[2017-09-11 06:10] LABS: ARTERIAL BLOOD GAS BASE EXCESS -11.6 meq/l (-2-2); ARTERIAL BLOOD GAS pH 7.24 (7.35-7.45)
[2017-09-11] MEDS: IPRATROPIUM BR 0.02% 0.5 MG/2.5 ML VIAL.NEB. NEB SCH ×4 (06:11→23:07)
[2017-09-11] MEDS ORDERED: SODIUM CHLORIDE 0.45% 1,000 ML IV SCH (06:30)
--- NOTE | 2017-09-11 06:49 | PN ---
Progress Note (short form) - Note Progress Note: Thoracic: OK to start heparin gtt with goal 50-70 this AM. Would not bolus but would continue serial neurology checks.
[2017-09-11] MEDS ORDERED: INSULIN SLIDING SCALE (NOVOLOG) 1 VIAL SQ SCH (07:00)
--- NOTE | 2017-09-11 07:22 | PN ---
Progress Note, Physician Chief Complaint: S/p surgery for chemo port Brain MRI with metastatic disease Mildly lethargic History of Present Illness: 62 year old with a pmhx of htn, afib on apixaban, hld, dm, ckd, gerd, and colon CA s/p colectomy 2011 with mets to lung sent as was scheduled to receive chemo but port not working and patient c/o nausea and vomiting. +headache. Concern for lesion on head ct. This is a 62 year old female with a past medical history significant for colon CA with mets to lung currently on chemo, unable to receive chemo today due to port difficulties who presented to the ED with nausea and vomiting today and last night. She also had a headache earlier. She did not take any of her BP medication yesterday. - Current Medication List Current Medications: Active Medications Atorvastatin Calcium (Lipitor -) 20 mg PO HS CORDELIA Dexamethasone Sodium Phosphate (Decadron Injection -) 4 mg IVPB Q6H-IV CORDELIA Last Admin: 09/11/17 03:11 Dose: 4 mg Gabapentin (Neurontin -) 300 mg PO BID CORDELIA Hydralazine HCl (Apresoline Injection -) 10 mg IVPUSH Q6H PRN PRN Reason: HYPERTENSION Diltiazem HCl 125 mg/ Dextrose 125 mls @ 5 mls/hr IVPB TITR CORDELIA; 5 MG/HR PRN Reason: Protocol Last Admin: 09/11/17 02:00 Dose: 5 mg/hr, 5 mls/hr Insulin Human Regular 100 (units/ Sodium Chloride) 100 mls @ 8.34 mls/hr IVPB TITR CORDELIA; 0.1 UNITS/KG/HR PRN Reason: Protocol Last Admin: 09/11/17 06:14 Dose: 0.1 units/kg/hr, 8.34 mls/hr Sodium Chloride (1/2 Normal Saline) 1,000 mls @ 150 mls/hr IV ASDIR CORDELIA Insulin Aspart (Novolog Vial Sliding Scale -) 1 vial SQ HS CORDELIA PRN Reason: Protocol Insulin Aspart (Novolog Vial Sliding Scale -) 1 vial SQ TIDAC CORDELIA PRN Reason: Protocol Ipratropium [place] (Atrovent 0.02% Nebulizer -) 1 amp NEB QIDR CORDELIA Last Admin: 09/11/17 06:11 Dose: 1 amp Meclizine HCl (Antivert -) 25 mg PO Q6HPO PRN PRN Reason: VERTIGO Metoprolol Tartrate (Lopressor Injection -) 5 mg IVPUSH Q4H PRN PRN Reason: HYPERTENSION Ondansetron HCl (Zofran Injection) 4 mg IVPUSH Q6H PRN PRN Reason: NAUSEA Pantoprazole Sodium (Protonix Iv) 40 mg IVPUSH DAILY CORDEL[place] Prochlorperazine Edisylate (Compazine Injection -) 10 mg IVPB Q4H PRN PRN Reason: NAUSEA AND/OR VOMITING - Objective Vital Signs: Vital Signs Temperature 98.1 F 09/11/17 02:30 Pulse Rate 89 09/11/17 03:00 Respiratory Rate 20 09/11/17 03:00 Blood Pressure 133/55 09/11/17 03:00 O2 Sat by Pulse Oximetry (%) 100 09/11/17 05:25 Neck: Yes: WNL Cardiovascular: Yes: Regular Rate and Rhythm, S1, S2 Respiratory: Yes: Rhonchi Gastrointestinal: Yes: Soft, Rectal Bleeding Edema: No Labs: CBC, BMP 09/11/17 04:15 INR, PTT INR 1.14 (0.82-1.09) 09/09/17 22:58 Problem List - Problems (1) Atrial fibrillation Code(s): I48.91 - UNSPECIFIED ATRIAL FIBRILLATION (2) HTN (hypertension) Code(s): I10 - ESSENTIAL (PRIMARY) HYPERTENSION Assessment/Plan 62 year old with a pmhx of htn, afib on apixaban, hld, dm, ckd, gerd, and colon CA s/p colectomy 2011 with mets to lung sent as was scheduled to receive chemo but port not working and patient c/o nausea and vomiting. +headache. Concern for lesion on head ct. This is a 62 year old female with a past medical history significant for colon CA with mets to lung currently on chemo, unable to receive chemo today due to port difficulties who presented to the ED with nausea and vomiting today and last night. She also had a headache earlier. She did not take any of her BP medication yesterday. 1) Cardiac -patient with history of afib. Sinus rhythm now Metoprolol and diltiazem PO are on hold. No tachycardia or afib here. Was on apixaban at home but now with metastatic brain cancer. AC is usually held for metastatic brain cancer unless neurology feels otherwise 2) HTN Was started on diltiazem drip by ICU team. BP currently controlled on this regimen ICU monitoring 3) Oncology -management as per primary team On decadron
[2017-09-11] MEDS: INSULIN SLIDING SCALE (NOVOLOG) 1 VIAL SQ SCH ×4 (07:36→22:31)
[2017-09-11 07:42] LABS: ANION GAP 14 (8-16); BLOOD UREA NITROGEN 47 mg/dL (7-18); CALCIUM 8.6 mg/dL (8.5-10.1); CHLORIDE 111 mmol/L (98-107); CO2 17 mmol/L (21-32); CREATININE 2.2 mg/dL (0.55-1.02); POTASSIUM 4.2 mmol/L (3.5-5.1); SODIUM 142 mmol/L (136-145)
[2017-09-11 07:54] LABS: GLUCOSE,RANDOM 473 mg/dL (74-106)
[2017-09-11 08:01] LABS: ARTERIAL BLD GAS O2 SATURATION 97.6 % (90-98.9); ARTERIAL BLOOD GAS BASE EXCESS -9.2 meq/l (-2-2); ARTERIAL BLOOD GAS PCO2 38.8 mmHg (35-45); ARTERIAL BLOOD GAS pH 7.26 (7.35-7.45)
[2017-09-11] MEDS ORDERED: HEMOQUE TEST 1 EACH EACH ONE ×2 (08:20→08:21)
[2017-09-11 09:32] LABS: ANION GAP 10 (8-16); BLOOD UREA NITROGEN 49 mg/dL (7-18); CALCIUM 8.3 mg/dL (8.5-10.1); CHLORIDE 111 mmol/L (98-107); CO2 20 mmol/L (21-32); MAGNESIUM 2.4 mg/dL (1.8-2.4); POTASSIUM 4.2 mmol/L (3.5-5.1); SODIUM 141 mmol/L (136-145)
[2017-09-11 09:34] LABS: CREATININE 2.2 mg/dL (0.55-1.02)
[2017-09-11] MEDS: PANTOPRAZOLE SODIUM 40 MG VIAL IVPUSH SCH (09:39)
[2017-09-11] MEDS: GABAPENTIN 300 MG CAPSULE (FP) PO SCH ×2 (09:39→22:30)
--- NOTE | 2017-09-11 09:58 | PN ---
Progress Note (short form) - Note Progress Note: Patient seen and examined at bedside. Patient is responsive and alert and oriented. She denies any pain and is resting comfortably. PE: She is able to follow commands and show me two fingers on both hands. Her LE compartments are soft, supple and non-tender and she has 5/5 strength of dorsi/ plantar flex b/l. Impression: patient is neurologically stable at this time Plan: Neuro to follow Npo for now Will re-examine patient later this afternoon Evaluation and plan discussed with Dr Anne
[2017-09-11] MEDS ORDERED: APIXABAN 5 MG TABLET PO SCH (10:00)
[2017-09-11] MEDS ORDERED: RAMIPRIL 5 MG CAPSULE (FP) PO SCH (10:00)
[2017-09-11 10:12] LABS: GLUCOSE,RANDOM 403 mg/dL (74-106)
--- NOTE | 2017-09-11 10:58 | PN ---
Progress Note (short form) - Note Progress Note: Post op day#1.S/p Repair of right carotid artery and removal of portacath undre GA uneventful.P90,BP148/63 and Spo2 100% on o2 @L NC.Patient stable.No any anesthesia related problem.Patient DC from the anesthesia care.
--- NOTE | 2017-09-11 11:45 | PN ---
Physical Exam: SUBJECTIVE: Patient seen and examined OBJECTIVE: Vital Signs Period Temp Pulse Resp BP Sys/Mcdaniel Pulse Ox Last 24 Hr 97.7 F-98.9 F 80-106 13-26 107-185/55-98 90-100 GENERAL: The patient is awake, alert, and fully oriented, in no acute distress. HEAD: Normal with no signs of trauma. EYES: PERRL, extraocular movements intact, sclera anicteric, conjunctiva clear. No ptosis. ENT: Ears normal, nares patent, oropharynx clear without exudates, moist mucous membranes. NECK: Trachea midline, full range of motion, supple. LUNGS: Breath sounds equal, clear to auscultation bilaterally, no wheezes, no crackles, no accessory muscle use. HEART: Regular rate and rhythm, S1, S2 without murmur, rub or gallop. ABDOMEN: Soft, nontender, nondistended, normoactive bowel sounds, no guarding, no rebound, no hepatosplenomegaly, no masses. EXTREMITIES: 2+ pulses, warm, well-perfused, no edema. NEUROLOGICAL: Cranial nerves II through XII grossly intact. Normal speech, gait not observed. PSYCH: Normal mood, normal affect. SKIN: Warm, dry, normal turgor, no rashes or lesions noted Laboratory Results - last 24 hr 09/09/17 09/10/17 09/10/17 22:58 11:30 17:26 WBC RBC Hgb Hct MCV MCH MCHC RDW Plt Count MPV Anticoagulation Therapy Puncture Site ABG pH ABG pCO2 at Pt Temp ABG pO2 at Pt Temp ABG HCO3 ABG O2 Sat (Measured) ABG O2 Content ABG Base Excess Addy Test O2 Delivery Device Oxygen Flow Rate Vent Mode Vent Rate Mechanical Rate PEEP Pressure Support Vent Sodium Potassium Chloride Carbon Dioxide Anion Gap BUN Creatinine Creat Clearance w eGFR POC Glucometer 252 298 Random Glucose Calcium Magnesium Total Bilirubin AST ALT Alkaline Phosphatase Ammonia Total Protein Albumin Acetone, Qual Blood Type O POSITIVE Antibody Screen Negative Crossmatch IS Only See Detail 09/11/17 09/11/17 09/11/17 01:13 02:00 02:15 WBC RBC Hgb Hct MCV MCH MCHC RDW Plt Count MPV Anticoagulation Therapy No Result Required. No Result Required. Puncture Site Arterial line Arterial line ABG pH 7.03 L* D 7.20 L* D ABG pCO2 at Pt Temp 76.0 H* D 42.9 D ABG pO2 at Pt Temp 107.0 H 146.0 H D ABG HCO3 19.1 L 16.2 L ABG O2 Sat (Measured) 93.8 98.5 ABG O2 Content 12.1 L 12.5 L ABG Base Excess -11.8 L* -10.7 L* Addy Test No Result Required. No Result Required. O2 Delivery Device No Result Required. Bipap Oxygen Flow Rate No Result Required. 40% Vent Mode No Result Required. No Result Required. Vent Rate No Result Required. 14 Mechanical Rate No Result Required. No Result Required. PEEP Pressure Support Vent No Result Required. 18/4 Sodium Potassium Chloride Carbon Dioxide Anion Gap BUN Creatinine Creat Clearance w eGFR POC Glucometer 534 Random Glucose Calcium Magnesium Total Bilirubin AST ALT Alkaline Phosphatase Ammonia Total Protein Albumin Acetone, Qual Blood Type Antibody Screen Crossmatch IS Only 09/11/17 09/11/17 09/11/17 04:02 04:15 04:15 WBC 11.7 H D RBC 3.22 L Hgb 8.3 L D Hct 26.7 L D MCV 82.7 MCH 25.7 MCHC 31.0 L RDW 16.5 H Plt Count 372 MPV 6.4 L Anticoagulation Therapy Puncture Site ABG pH ABG pCO2 at Pt Temp ABG pO2 at Pt Temp ABG HCO3 ABG O2 Sat (Measured) ABG O2 Content ABG Base Excess Addy Test O2 Delivery Device Oxygen Flow Rate Vent Mode Vent Rate Mechanical Rate PEEP Pressure Support Vent Sodium 138 Potassium 5.4 H Chloride 107 Carbon Dioxide 16 L D Anion Gap 15 BUN 46 H D Creatinine 2.1 H D Creat Clearance w eGFR 24.02 POC Glucometer > 400 Random Glucose 604 H* D Calcium 8.0 L Magnesium 2.2 Total Bilirubin 0.2 D AST 10 L D ALT 13 Alkaline Phosphatase 141 H D Ammonia Total Protein 5.7 L D Albumin 2.7 L D Acetone, Qual Blood Type Antibody Screen Crossmatch IS Only 09/11/17 09/11/17 09/11/17 04:15 06:00 06:48 WBC RBC Hgb Hct MCV MCH MCHC RDW Plt Count MPV Anticoagulation Therapy Puncture Site Arterial line ABG pH 7.24 L* ABG pCO2 at Pt Temp 35.6 ABG pO2 at Pt Temp 97.1 D ABG HCO3 14.6 L* ABG O2 Sat (Measured) 96.7 ABG O2 Content 11.8 L ABG Base Excess -11.6 L* Addy Test No Result Required. O2 Delivery Device Bipap Oxygen Flow Rate 30% Vent Mode Vent Rate 18 Mechanical Rate PEEP Pressure Support Vent 18/4 Sodium 142 Potassium 4.2 D Chloride 111 H Carbon Dioxide 17 L Anion Gap 14 BUN 47 H Creatinine 2.2 H Creat Clearance w eGFR POC Glucometer Random Glucose 473 H* D Calcium 8.6 Magnesium Total Bilirubin AST ALT Alkaline Phosphatase Ammonia Total Protein Albumin Acetone, Qual Positive large 3+ H Blood Type Antibody Screen Crossmatch IS Only 09/11/17 09/11/17 09/11/17 07:40 08:50 08:50 WBC RBC Hgb Hct MCV MCH MCHC RDW Plt Count MPV Anticoagulation Therapy Puncture Site Arterial line ABG pH 7.26 L ABG pCO2 at Pt Temp 38.8 ABG pO2 at Pt Temp 255.0 H* ABG HCO3 16.7 L ABG O2 Sat (Measured) 97.6 ABG O2 Content 11.8 L ABG Base Excess -9.2 L Addy Test Not applicable O2 Delivery Device Ventimask Oxygen Flow Rate 50 Vent Mode Vent Rate Mechanical Rate No PEEP 0.0 Pressure Support Vent Sodium 141 Potassium 4.2 Chloride 111 H Carbon Dioxide 20 L Anion Gap 10 BUN 49 H Creatinine 2.2 H Creat Clearance w eGFR POC Glucometer Random Glucose 403 H* Calcium 8.3 L Magnesium 2.4 Total Bilirubin AST ALT Alkaline Phosphatase Ammonia 13.53 Total Protein Albumin Acetone, Qual Blood Type Antibody Screen Crossmatch IS Only 09/11/17 10:49 WBC RBC Hgb Hct MCV MCH MCHC RDW Plt Count MPV Anticoagulation Therapy Puncture Site ABG pH ABG pCO2 at Pt Temp ABG pO2 at Pt Temp ABG HCO3 ABG O2 Sat (Measured) ABG O2 Content ABG Base Excess Addy Test O2 Delivery Device Oxygen Flow Rate Vent Mode Vent Rate Mechanical Rate PEEP Pressure Support Vent Sodium Potassium Chloride Carbon Dioxide Anion Gap BUN Creatinine Creat Clearance w eGFR POC Glucometer [phone] Random Glucose Calcium Magnesium Total Bilirubin AST ALT Alkaline Phosphatase Ammonia Total Protein Albumin Acetone, Qual Blood Type Antibody Screen Crossmatch IS Only Active Medications Generic Name Dose Route Start Last Admin Trade Name Freq PRN Reason Stop Dose Admin Atorvastatin Calcium 20 mg 09/11/17 22:00 Lipitor - PO HS CORDELIA Dexamethasone Sodium Phosphate 10 mg 09/11/17 18:00 Decadron Injection - IVPUSH Q8H-IV CORDELIA Epinephrine 1 vial 09/11/17 10:21 S-2 NEB Q6H PRN stridor Gabapentin 300 mg 09/11/17 10:00 09/11/17 09:39 Neurontin - PO 300 mg BID CORDELIA Administration Hydralazine HCl 10 mg 09/11/17 10:25 Apresoline Injection - IVPUSH Q6H PRN HYPERTENSION Diltiazem HCl 125 mg/ Dextrose 125 mls @ 5 mls/hr 09/11/17 02:00 09/11/17 02: 00 IVPB 5 mg/hr TITR CORDELIA 5 mls/hr Protocol Administration 5 MG/HR Insulin Human Regular 100 100 mls @ 8.34 mls/hr 09/11/17 06:00 09/11/17 06:14 units/ Sodium Chloride IVPB 0.1 units/kg/hr TITR CORDELIA 8.34 mls/hr Protocol Administration 0.1 UNITS/KG/HR Sodium Chloride 1,000 mls @ 150 mls/hr 09/11/17 06:30 09/11/17 07:16 1/2 Normal Saline IV 150 mls/hr ASDIR CORDELIA Administration Insulin Aspart 1 vial 09/11/17 22:00 Novolog Vial Sliding Scale - SQ HS [facility] Protocol Insulin Aspart 1 vial 09/11/17 07:00 09/11/17 07:36 Novolog Vial Sliding Scale - SQ Not Given TIDAC [facility] Protocol Ipratropium [place] 1 amp 09/11/17 06:00 09/11/17 06:11 Atrovent 0.02% Nebulizer - NEB 1 amp QIDR CORDELIA Administration Meclizine HCl 25 mg 09/11/17 06:00 Antivert - PO Q6HPO PRN VERTIGO Metoprolol Tartrate 5 mg 09/11/17 10:25 Lopressor Injection - IVPUSH Q4H PRN HYPERTENSION Ondansetron HCl 4 mg 09/11/17 02:02 Zofran Injection IVPUSH Q6H PRN NAUSEA Pantoprazole Sodium 40 mg 09/11/17 10:00 09/11/17 09:39 Protonix Iv IVPUSH 40 mg DAILY CORDELIA Administration Prochlorperazine Edisylate 10 mg 09/11/17 02:02 Compazine Injection - IVPB Q4H PRN NAUSEA AND/OR VOMITING ASSESSMENT/PLAN:
--- NOTE | 2017-09-11 12:10 | PN ---
Progress Note, Physician History of Present Illness: Chart reviewed. In ICU. Metastatic brain disease with infarcts. Nausea, vomiting subsided at this time. No overt, acute GI symptoms. - Current Medication List Current Medications: Active Medications Atorvastatin Calcium (Lipitor -) 20 mg PO HS CORDELIA Dexamethasone Sodium Phosphate (Decadron Injection -) 10 mg IVPUSH Q8H-IV CORDELIA Epinephrine (S-2) 1 vial NEB Q6H PRN PRN Reason: stridor Gabapentin (Neurontin -) 300 mg PO BID [facility] Last Admin: 09/11/17 09:39 Dose: 300 mg Hydralazine HCl (Apresoline Injection -) 10 mg IVPUSH Q6H PRN PRN Reason: HYPERTENSION Diltiazem HCl 125 mg/ Dextrose 125 mls @ 5 mls/hr IVPB TITR CORDELIA; 5 MG/HR PRN Reason: Protocol Last Admin: 09/11/17 02:00 Dose: 5 mg/hr, 5 mls/hr Insulin Human Regular 100 (units/ Sodium Chloride) 100 mls @ 8.34 mls/hr IVPB TITR CORDELIA; 0.1 UNITS/KG/HR PRN Reason: Protocol Last Admin: 09/11/17 06:14 Dose: 0.1 units/kg/hr, 8.34 mls/hr Sodium Chloride (1/2 Normal Saline) 1,000 mls @ 150 mls/hr IV ASDIR [facility] Last Admin: 09/11/17 07:16 Dose: 150 mls/hr Insulin Aspart (Novolog Vial Sliding Scale -) 1 vial SQ HS CORDLEIA PRN Reason: Protocol Insulin Aspart (Novolog Vial Sliding Scale -) 1 vial SQ TIDAC CORDELIA PRN Reason: Protocol Last Admin: 09/11/17 07:36 Dose: Not Given Ipratropium [place] (Atrovent 0.02% Nebulizer -) 1 amp NEB QIDR [facility] Last Admin: 09/11/17 06:11 Dose: 1 amp Meclizine HCl (Antivert -) 25 mg PO Q6HPO PRN PRN Reason: VERTIGO Metoprolol Tartrate (Lopressor Injection -) 5 mg IVPUSH Q4H PRN PRN Reason: HYPERTENSION Ondansetron HCl (Zofran Injection) 4 mg IVPUSH Q6H PRN PRN Reason: NAUSEA Pantoprazole Sodium (Protonix Iv) 40 mg IVPUSH DAILY [facility] Last Admin: 09/11/17 09:39 Dose: 40 mg Prochlorperazine Edisylate (Compazine Injection -) 10 mg IVPB Q4H PRN PRN Reason: NAUSEA AND/OR VOMITING - Objective Vital Signs: Vital Signs Temperature 98.0 F 09/11/17 10:00 Pulse Rate 95 H 09/11/17 11:00 Respiratory Rate 16 09/11/17 11:00 Blood Pressure 160/70 09/11/17 11:00 O2 Sat by Pulse Oximetry (%) 90 L 09/11/17 11:06 Constitutional: Yes: Calm Eyes: Yes: Conjunctiva Clear Respiratory: Yes: Regular Gastrointestinal: Yes: Soft. No: Melena, Rectal Bleeding, Tenderness, Epigastrium, Tenderness, Rebound, Vomiting Neurological: Yes: Alert Labs: CBC, BMP 09/11/17 04:15 09/11/17 08:50 INR, PTT INR 1.14 (0.82-1.09) 09/09/17 22:58 Abnormal Lab Results 09/09/17 09/11/17 09/11/17 22:58 01:13 02:00 WBC RBC Hgb Hct MCHC RDW MPV ABG pH 7.03 L* D 7.20 L* D ABG pCO2 at Pt Temp 76.0 H* D ABG pO2 at Pt Temp 107.0 H 146.0 H D ABG HCO3 19.1 L 16.2 L ABG O2 Content 12.1 L 12.5 L ABG Base Excess -11.8 L* -10.7 L* Potassium Chloride Carbon Dioxide BUN Creatinine Random Glucose Calcium AST Alkaline Phosphatase Total Protein Albumin Acetone, Qual Crossmatch IS Only See Detail 09/11/17 09/11/17 09/11/17 04:15 04:15 04:15 WBC 11.7 H D RBC 3.22 L Hgb 8.3 L D Hct 26.7 L D MCHC 31.0 L RDW 16.5 H MPV 6.4 L ABG pH ABG pCO2 at Pt Temp ABG pO2 at Pt Temp ABG HCO3 ABG O2 Content ABG Base Excess Potassium 5.4 H Chloride Carbon Dioxide 16 L D BUN 46 H D Creatinine 2.1 H D Random Glucose 604 H* D Calcium 8.0 L AST 10 L D Alkaline Phosphatase 141 H D Total Protein 5.7 L D Albumin 2.7 L D Acetone, Qual Positive large 3+ H Crossmatch IS Only 09/11/17 09/11/17 09/11/17 06:00 06:48 07:40 WBC RBC Hgb Hct MCHC RDW MPV ABG pH 7.24 L* 7.26 L ABG pCO2 at Pt Temp ABG pO2 at Pt Temp 255.0 H* ABG HCO3 14.6 L* 16.7 L ABG O2 Content 11.8 L 11.8 L ABG Base Excess -11.6 L* -9.2 L Potassium Chloride 111 H Carbon Dioxide 17 L BUN 47 H Creatinine 2.2 H Random Glucose 473 H* D Calcium AST Alkaline Phosphatase Total Protein Albumin Acetone, Qual Crossmatch IS Only 09/11/17 08:50 WBC RBC Hgb Hct MCHC RDW MPV ABG pH ABG pCO2 at Pt Temp ABG pO2 at Pt Temp ABG HCO3 ABG O2 Content ABG Base Excess Potassium Chloride 111 H Carbon Dioxide 20 L BUN 49 H Creatinine 2.2 H Random Glucose 403 H* Calcium 8.3 L AST Alkaline Phosphatase Total Protein Albumin Acetone, Qual Crossmatch IS Only - ....Imaging MRI: Report Reviewed Problem List - Problems (1) Brain metastasis Code(s): C79.31 - SECONDARY MALIGNANT NEOPLASM OF BRAIN (2) Headache Code(s): R51 - HEADACHE Qualifiers: Headache chronicity pattern: unspecified pattern Intractability: intractable (3) Intractable vomiting with nausea Code(s): R11.2 - NAUSEA WITH VOMITING, UNSPECIFIED Qualifiers: Vomiting type: unspecified Qualified Code(s): R11.2 - Nausea with vomiting , unspecified Assessment/Plan Antiemetics Oncology Will follow
[2017-09-11] MEDS: RACEPINEPHRINE IH SOL 2.25% 11.25 MG/0.5 ML VIAL NEB PRN ×2 (12:32→19:54)
[2017-09-11] MEDS: INSULIN DETEMIR 100 UNITS/ML MDV SQ SCH ×2 (12:43→22:30)
[2017-09-11] MEDS ORDERED: dilTIAZem HCL 25 MG/5 ML - 5 ML VIAL ONE (13:22)
--- NOTE | 2017-09-11 13:42 | CONSULT ---
Consult - text type - Consultation Consultation Note: NEUROLOGY CONSULTATION is greatly appreciated: Events and all neuroimmaging reviewed. Case discussed with Drs. Fontanez and Timothy last evening. This 62 yo RH woman with h/o HTN, Chol, DM, ASHD, AFib and moderate renal insufficiency is s/p colectomy 2011 for colonic CA now metastatic to the lungs. Maintained on insulin pump, atorvastatin, apixaban, diltiazem, ramipril, metoprolol, oxycodone and gabapentin. Recently had portal placed for chemo Rx with attempted infusion Friday. Soon thereafter, patient developed headache, nausea, vomiting and unsteadiness. CT of head (reviewed) suggested ischemic changes in the posterior fossa (left cerebellum > right) and the parietal region. MRI confirmed extensive changes including B/L cerebellar infarcts (L>>R); a left lateral medullary (brainstem) infarct, and multiple, scattered hemispheric infarcts. In addition, multiple, small, lesions with surrounding edema are suggestive of metastatic lesions. Today, Pt notes marked improvement in Nausea and slight improvement in right temporal and hemicranial headache. EXAM: Awake, alert. Ox 3. Sl. Dysarthric speech. CN: Right pupil 5mm, left 3 mm both reactive. Left conjugate gaze deviation with depression. Full EOM's with coarse conjugate nystagmus ( horizontal on right gaze and clockwise rotatory on left gaze. No obvious facial weakness. Depressed gag. Motor: Moves right side well. Left side strength near normal but difficult to test due to severe dystaxia. Normal reflexes. Downgoing toes. Coord: Severe left hemidystaxia (arm > leg). Sensory: Normal IMP: The predominant clinical feature is a marked left hemidystaxia due to left cerebellar infarct. Pupillary findings are c/w brainstem ischemia. SUGGEST: NPO. Keep HOB gently elevated. Keep BP in normal (120-140/70-80) range. Continue monitoring of DKA, fluids, and dropping HCT Hold anticoagulation until bleeding is excluded, then resume. (NB : microhemorrhages in brain infarcts are not a contraindication to AC). Pt needs a contrast study to define brain mets. Would defer to renal whether C+ CT or MRI is safer in light of renal insufficiency. Prognosis guarded. Thank you very much, Daniel Pulido MD
[2017-09-11] MEDS: DILTIAZEM INJECTION 125 MG in DEXTROSE 5%-WATER - 100 ML IVPB SCH (14:00)
[2017-09-11 14:15] LABS: HEMATOCRIT 27.2 % (32.4-45.2); HEMOGLOBIN 8.5 GM/dL (10.7-15.3); MCH 25.3 pg (25.7-33.7); MCHC 31.3 g/dl (32.0-36.0); MEAN CELL VOLUME 80.7 fl (80-96); MEAN PLT VOLUME 6.2 fl (7.5-11.1); PLATELET COUNT 373 K/MM3 (134-434); RBC 3.37 M/mm3 (3.60-5.2); RDW 16.4 % (11.6-15.6)
[2017-09-11] MEDS: SODIUM CHLORIDE 1,000 ML IV SCH (14:30)
[2017-09-11] MEDS ORDERED: HEPARIN NA (PORCINE) 5,000 UNITS/ML 1ML VIAL IVPUSH PRN ×2 (14:36)
--- NOTE | 2017-09-11 14:44 | CONSULT ---
Consult Consult Specialty:: Nephrology Reason for Consultation:: CKD - History of Present Illness Chief Complaint: nausea and vomiting History of Present Illness: Pt is a 62 year old female with pmhx of HTN, chol, DM, Lung cancer, colon cancer and hyperkalemia who presents to the ER for nausea and vomiting. She went for chemo and the port was not working. She subsequently felt nausea and vomiting. Pt also reported loose stool. She was found to have elevated creatinine and I was called to evaluate her. She was found to have infarcts on MRI brain. She was taken to the OR and chest port was removed as it was in the arterial position. Her blood pressure has been high in the ICU as well. Pt is fatigues and was unable to give full history. - History Source History Provided By: Medical Record - Past Medical History Cardio/Vascular: Yes: AFIB, HTN, Hyperlipdemia Gastrointestinal: Yes: Cancer (COLON), GERD Psych: Yes: Anxiety Endocrine: Yes: Diabetes Mellitus (ON INSULIN PUMP) - Past Surgical History Past Surgical History: Yes: Colectomy (2 YRS AGO COLON CA), Hernia Repair ( icisional) - Alcohol/Substance Use Hx Alcohol Use: No - Smoking History Smoking history: Former smoker Have you smoked in the past 12 months: Yes Aproximately how many cigarettes per day: 0 - Social History Usual Living Arrangement: With Spouse ADL: Independent History of Recent Travel: No Home Medications - Allergies Allergies/Adverse Reactions: Allergies Allergy/AdvReac Type Severity Reaction Status Date / Time No Known Drug Allergies Allergy Verified 09/09/17 23:57 Medical Tape Allergy Uncoded 09/09/17 23:56 - Home Medications Home Medications: Ambulatory Orders Atorvastatin Ca [Lipitor] 20 mg PO HS #0 tablet 01/14/14 Insulin Pump Controller [Snap Insulin Pump Controller] 0 units SQ ASDIR Gabapentin 300 mg PO BID #60 capsule 08/23/14 Apixaban [Eliquis -] 5 mg PO BID #60 tablet 06/24/17 Diltiazem Cd [Cardizem Cd -] 120 mg PO DAILY #30 cap.cd.24h 06/24/17 Ramipril [Altace] 5 mg PO DAILY #30 tab 06/24/17 Metoprolol Succinate 50 mg PO DAILY 08/14/17 Oxycodone HCl/Acetaminophen [Percocet 5/325 -] 1 - 2 tab PO Q4H PRN #20 tablet MDD 6 08/18/17 Family Disease History - Family Disease History Family History: Unable to Obtain Review of Systems - Review of Systems Constitutional: reports: Malaise Eyes: reports: No Symptoms HENT: reports: No Symptoms Neck: reports: No Symptoms Cardiovascular: denies: Shortness of Breath Gastrointestinal: reports: No Symptoms Genitourinary: reports: No Symptoms Neurological: reports: Headache Psychiatric: reports: No Symptoms Physical Exam Vital Signs: Vital Signs Temperature 98.0 F 09/11/17 10:00 Pulse Rate 90 09/11/17 12:00 Respiratory Rate 15 09/11/17 12:00 Blood Pressure 160/61 09/11/17 12:00 O2 Sat by Pulse Oximetry (%) 90 L 09/11/17 11:06 Constitutional: Yes: Calm Eyes: Yes: Conjunctiva Clear HENT: Yes: Atraumatic Neck: Yes: Supple Cardiovascular: Yes: S1, S2 Respiratory: Yes: CTA Bilaterally, On Nasal O2 Gastrointestinal: Yes: Soft Renal/: Yes: Mcdonald Present Musculoskeletal: Yes: Muscle Weakness Edema: No Neurological: Yes: Lethargy Labs: CBC, BMP 09/11/17 14:05 09/11/17 08:50 Laboratory Tests 06/23/17 08/14/17 09/09/17 06:30 12:50 22:58 WBC Creatinine 1.6 H 1.9 H 1.5 H D 09/11/17 09/11/17 09/11/17 04:15 06:48 08:50 WBC Creatinine 2.1 H D 2.2 H 2.2 H 09/11/17 14:05 WBC 12.0 H Creatinine Imaging - Results Chest X-ray: Report Reviewed MRI: Report Reviewed Problem List - Problems (1) Brain metastasis Code(s): C79.31 - SECONDARY MALIGNANT NEOPLASM OF BRAIN (2) Headache Code(s): R51 - HEADACHE Qualifiers: Headache chronicity pattern: unspecified pattern Intractability: intractable (3) Metastatic colorectal cancer Code(s): C78.5 - SECONDARY MALIGNANT NEOPLASM OF LARGE INTESTINE AND RECTUM (4) SUSAN (acute kidney injury) Code(s): N17.9 - ACUTE KIDNEY FAILURE, UNSPECIFIED (5) Atrial fibrillation Code(s): I48.91 - UNSPECIFIED ATRIAL FIBRILLATION (6) Cancer, colon Code(s): C18.9 - MALIGNANT NEOPLASM OF COLON, UNSPECIFIED Qualifiers: Colon location: unspecified part of colon Qualified Code(s): C18.9 - Malignant neoplasm of colon, unspecified (7) Lung mass Code(s): R91.8 - OTHER NONSPECIFIC ABNORMAL FINDING OF LUNG FIELD Assessment/Plan Current Medications Generic Name Dose Route Start Last Admin Trade Name Freq PRN Reason Stop Dose Admin Atorvastatin Calcium 20 mg 09/11/17 22:00 Lipitor - PO HS CORDELIA Dexamethasone Sodium Phosphate 10 mg 09/11/17 18:00 Decadron Injection - IVPUSH Q8H-IV CORDELIA Epinephrine 1 vial 09/11/17 10:21 09/11/17 12:32 S-2 NEB 1 vial Q6H PRN Administration stridor Gabapentin 300 mg 09/11/17 10:00 09/11/17 09:39 Neurontin - PO 300 mg BID CORDELIA Administration Heparin Sodium (Porcine) 1,000 unit 09/11/17 14:36 Heparin - IVPUSH PRN PRN Heparin Heparin Sodium (Porcine) 5,000 unit 09/11/17 14:36 Heparin - IVPUSH PRN PRN Heparin Hydralazine HCl 10 mg 09/11/17 10:25 Apresoline Injection - IVPUSH Q6H PRN HYPERTENSION Sodium Chloride 1,000 mls @ 75 mls/hr 09/11/17 14:30 Normal Saline - IV ASDIR CORDELIA Diltiazem HCl 125 mg/ Dextrose 125 mls @ 5 mls/hr 09/11/17 14:27 IVPB TITR CORDELIA Protocol 5 MG/HR HEPARIN SOD,PORK IN 0.45% NACL 25,000 units in 500 mls @ 20 mls/hr 09/11/17 14 :45 Heparin-1/2ns 25,000 Units/500 IVPB TITR CORDELIA Protocol 1,000 UNIT/HR Insulin Aspart 1 vial 09/11/17 22:00 Novolog Vial Sliding Scale - SQ HS CORDELIA Protocol Insulin Aspart 1 vial 09/11/17 07:00 09/11/17 12:34 Novolog Vial Sliding Scale - SQ 8 units TIDAC CORDELIA Administration Protocol Insulin Detemir 20 units 09/11/17 12:15 09/11/17 12:43 Levemir Vial SQ 20 units HS CORDELIA Administration Ipratropium [place] 1 amp 09/11/17 06:00 09/11/17 12:32 Atrovent 0.02% Nebulizer - NEB 1 amp QIDR CORDELIA Administration Meclizine HCl 25 mg 09/11/17 06:00 Antivert - PO Q6HPO PRN VERTIGO Metoprolol Tartrate 5 mg 09/11/17 10:25 Lopressor Injection - IVPUSH Q4H PRN HYPERTENSION Ondansetron HCl 4 mg 09/11/17 02:02 Zofran Injection IVPUSH Q6H PRN NAUSEA Pantoprazole Sodium 40 mg 09/11/17 10:00 09/11/17 09:39 Protonix Iv IVPUSH 40 mg DAILY CORDELIA Administration Prochlorperazine Edisylate 10 mg 09/11/17 02:02 Compazine Injection - IVPB Q4H PRN NAUSEA AND/OR VOMITING Impression 1. CKD 2. SUSAN 3. DM 4. htn 5. chol 6. chemo port malfunction 7. a-fib 8. lung mass 9. proteinuria 10. adenocarcinoma 11. CVA Plan - check ua and lytes - consider switching fluids to 1/2 ns - monitor blood pressure - check renal ultrasound - repeat labs in am - could have susan from prerenal disease secondary to GI losses - will comment on etiology of SUSAN after reviewing initial workup - will follow Dr Llanos
[2017-09-11] MEDS ORDERED: HEPARIN SOD,PORK IN 0.45% NACL 25,000 UNITS/500 ML INFUS.BAG IVPB SCH (14:45)
[2017-09-11] MEDS ORDERED: HEPARIN SOD,PORK IN 0.45% NACL 25,000 UNIT/500 ML INFUS.BAG IVPB SCH (14:45)
[2017-09-11] MEDS ORDERED: PT OWN MED DRAWER 7, Y5N ONE (16:47)
[2017-09-11] MEDS: METOPROLOL TARTRATE 5 MG/5 ML VIAL IVPUSH PRN (17:24)
--- NOTE | 2017-09-11 17:38 | PN ---
Physical Exam: SUBJECTIVE: Patient seen and examined OBJECTIVE: Vital Signs Period Temp Pulse Resp BP Sys/Mcdaniel Pulse Ox Last 24 Hr 97.7 F-98.9 F 85-109 12-26 107-186/55-98 90-100 GENERAL: Lethargic EYES: PERRL, extraocular movements intact, sclera anicteric, conjunctiva clear. No ptosis. ENT: Ears normal, nares patent, oropharynx clear without exudates, moist mucous membranes. NECK: Surgical incision noted to base of neck on right side. LUNGS: Breath sounds equal, clear to auscultation bilaterally, no wheezes, no crackles, no accessory muscle use. HEART: Regular rate and rhythm, S1, S2 without murmur, rub or gallop. ABDOMEN: SNTND NEUROLOGICAL: Cranial nerves II through XII grossly intact. Pupils 4mm on left and 6mm on right. Reactive. LUE with 2/5 strength. Laboratory Results - last 24 hr 09/09/17 09/10/17 09/11/17 22:58 17:26 01:13 WBC RBC Hgb Hct MCV MCH MCHC RDW Plt Count MPV Anticoagulation Therapy No Result Required. Puncture Site Arterial line ABG pH 7.03 L* D ABG pCO2 at Pt Temp 76.0 H* D ABG pO2 at Pt Temp 107.0 H ABG HCO3 19.1 L ABG O2 Sat (Measured) 93.8 ABG O2 Content 12.1 L ABG Base Excess -11.8 L* Addy Test No Result Required. O2 Delivery Device No Result Required. Oxygen Flow Rate No Result Required. Vent Mode No Result Required. Vent Rate No Result Required. Mechanical Rate No Result Required. PEEP Pressure Support Vent No Result Required. Sodium Potassium Chloride Carbon Dioxide Anion Gap BUN Creatinine Creat Clearance w eGFR POC Glucometer 298 Random Glucose Calcium Magnesium Total Bilirubin AST ALT Alkaline Phosphatase Ammonia Total Protein Albumin Acetone, Qual Blood Type O POSITIVE Antibody Screen Negative Crossmatch IS Only See Detail 09/11/17 09/11/17 09/11/17 02:00 02:15 04:02 WBC RBC Hgb Hct MCV MCH MCHC RDW Plt Count MPV Anticoagulation Therapy No Result Required. Puncture Site Arterial line ABG pH 7.20 L* D ABG pCO2 at Pt Temp 42.9 D ABG pO2 at Pt Temp 146.0 H D ABG HCO3 16.2 L ABG O2 Sat (Measured) 98.5 ABG O2 Content 12.5 L ABG Base Excess -10.7 L* Addy Test No Result Required. O2 Delivery Device Bipap Oxygen Flow Rate 40% Vent Mode No Result Required. Vent Rate 14 Mechanical Rate No Result Required. PEEP Pressure Support Vent 18/4 Sodium Potassium Chloride Carbon Dioxide Anion Gap BUN Creatinine Creat Clearance w eGFR POC Glucometer 534 > 400 Random Glucose Calcium Magnesium Total Bilirubin AST ALT Alkaline Phosphatase Ammonia Total Protein Albumin Acetone, Qual Blood Type Antibody Screen Crossmatch IS Only 09/11/17 09/11/17 09/11/17 04:15 04:15 04:15 WBC 11.7 H D RBC 3.22 L Hgb 8.3 L D Hct 26.7 L D MCV 82.7 MCH 25.7 MCHC 31.0 L RDW 16.5 H Plt Count 372 MPV 6.4 L Anticoagulation Therapy Puncture Site ABG pH ABG pCO2 at Pt Temp ABG pO2 at Pt Temp ABG HCO3 ABG O2 Sat (Measured) ABG O2 Content ABG Base Excess Addy Test O2 Delivery Device Oxygen Flow Rate Vent Mode Vent Rate Mechanical Rate PEEP Pressure Support Vent Sodium 138 Potassium 5.4 H Chloride 107 Carbon Dioxide 16 L D Anion Gap 15 BUN 46 H D Creatinine 2.1 H D Creat Clearance w eGFR 24.02 POC Glucometer Random Glucose 604 H* D Calcium 8.0 L Magnesium 2.2 Total Bilirubin 0.2 D AST 10 L D ALT 13 Alkaline Phosphatase 141 H D Ammonia Total Protein 5.7 L D Albumin 2.7 L D Acetone, Qual Positive large 3+ H Blood Type Antibody Screen Crossmatch IS Only 09/11/17 09/11/17 09/11/17 06:00 06:46 06:48 WBC RBC Hgb Hct MCV MCH MCHC RDW Plt Count MPV Anticoagulation Therapy Puncture Site Arterial line ABG pH 7.24 L* ABG pCO2 at Pt Temp 35.6 ABG pO2 at Pt Temp 97.1 D ABG HCO3 14.6 L* ABG O2 Sat (Measured) 96.7 ABG O2 Content 11.8 L ABG Base Excess -11.6 L* Addy Test No Result Required. O2 Delivery Device Bipap Oxygen Flow Rate 30% Vent Mode Vent Rate 18 Mechanical Rate PEEP Pressure Support Vent 18/4 Sodium 142 Potassium 4.2 D Chloride 111 H Carbon Dioxide 17 L Anion Gap 14 BUN 47 H Creatinine 2.2 H Creat Clearance w eGFR POC Glucometer > 400 Random Glucose 473 H* D Calcium 8.6 Magnesium Total Bilirubin AST ALT Alkaline Phosphatase Ammonia Total Protein Albumin Acetone, Qual Blood Type Antibody Screen Crossmatch IS Only 09/11/17 09/11/17 09/11/17 07:40 08:27 08:50 WBC RBC Hgb Hct MCV MCH MCHC RDW Plt Count MPV Anticoagulation Therapy Puncture Site Arterial line ABG pH 7.26 L ABG pCO2 at Pt Temp 38.8 ABG pO2 at Pt Temp 255.0 H* ABG HCO3 16.7 L ABG O2 Sat (Measured) 97.6 ABG O2 Content 11.8 L ABG Base Excess -9.2 L Addy Test Not applicable O2 Delivery Device Ventimask Oxygen Flow Rate 50 Vent Mode Vent Rate Mechanical Rate No PEEP 0.0 Pressure Support Vent Sodium 141 Potassium 4.2 Chloride 111 H Carbon Dioxide 20 L Anion Gap 10 BUN 49 H Creatinine 2.2 H Creat Clearance w eGFR POC Glucometer > 400 Random Glucose 403 H* Calcium 8.3 L Magnesium 2.4 Total Bilirubin AST ALT Alkaline Phosphatase Ammonia Total Protein Albumin Acetone, Qual Blood Type Antibody Screen Crossmatch IS Only 09/11/17 09/11/17 09/11/17 08:50 10:49 12:32 WBC RBC Hgb Hct MCV MCH MCHC RDW Plt Count MPV Anticoagulation Therapy Puncture Site ABG pH ABG pCO2 at Pt Temp ABG pO2 at Pt Temp ABG HCO3 ABG O2 Sat (Measured) ABG O2 Content ABG Base Excess Addy Test O2 Delivery Device Oxygen Flow Rate Vent Mode Vent Rate Mechanical Rate PEEP Pressure Support Vent Sodium Potassium Chloride Carbon Dioxide Anion Gap BUN Creatinine Creat Clearance w eGFR POC Glucometer 325.26070 250.53096 Random Glucose Calcium Magnesium Total Bilirubin AST ALT Alkaline Phosphatase Ammonia 13.53 Total Protein Albumin Acetone, Qual Blood Type Antibody Screen Crossmatch IS Only 09/11/17 09/11/17 09/11/17 14:05 14:39 15:54 WBC 12.0 H RBC 3.37 L Hgb 8.5 L Hct 27.2 L MCV 80.7 MCH 25.3 L MCHC 31.3 L RDW 16.4 H Plt Count 373 MPV 6.2 L Anticoagulation Therapy Puncture Site ABG pH ABG pCO2 at Pt Temp ABG pO2 at Pt Temp ABG HCO3 ABG O2 Sat (Measured) ABG O2 Content ABG Base Excess Addy Test O2 Delivery Device Oxygen Flow Rate Vent Mode Vent Rate Mechanical Rate PEEP Pressure Support Vent Sodium Potassium Chloride Carbon Dioxide Anion Gap BUN Creatinine Creat Clearance w eGFR POC Glucometer [phone] Random Glucose Calcium Magnesium Total Bilirubin AST ALT Alkaline Phosphatase Ammonia Total Protein Albumin Acetone, Qual Blood Type Antibody Screen Crossmatch IS Only Active Medications Generic Name Dose Route Start Last Admin Trade Name Freq PRN Reason Stop Dose Admin Atorvastatin Calcium 20 mg 09/11/17 22:00 Lipitor - PO HS CORDELIA Dexamethasone Sodium Phosphate 10 mg 09/11/17 18:00 09/11/17 17:24 Decadron Injection - IVPUSH 10 mg Q8H-IV CORDELIA Administration Epinephrine 1 vial 09/11/17 10:21 09/11/17 12:32 S-2 NEB 1 vial Q6H PRN Administration stridor Gabapentin 300 mg 09/11/17 10:00 09/11/17 09:39 Neurontin - PO 300 mg BID CORDELIA Administration Heparin Sodium (Porcine) 1,000 unit 09/11/17 14:36 Heparin - IVPUSH PRN PRN Heparin Heparin Sodium (Porcine) 5,000 unit 09/11/17 14:36 Heparin - IVPUSH PRN PRN Heparin Hydralazine HCl 10 mg 09/11/17 10:25 Apresoline Injection - IVPUSH Q6H PRN HYPERTENSION Sodium Chloride 1,000 mls @ 75 mls/hr 09/11/17 14:30 Normal Saline - IV ASDIR CORDELIA Diltiazem HCl 125 mg/ Dextrose 125 mls @ 5 mls/hr 09/11/17 14:27 IVPB TITR CORDELIA Protocol 5 MG/HR HEPARIN SOD,PORK IN 0.45% NACL 25,000 units in 500 mls @ 20 mls/hr 09/11/17 14 :45 Heparin-1/2ns 25,000 Units/500 IVPB TITR CORDELIA Protocol 1,000 UNIT/HR Insulin Aspart 1 vial 09/11/17 22:00 Novolog Vial Sliding Scale - SQ HS CORDELIA Protocol Insulin Aspart 1 vial 09/11/17 07:00 09/11/17 12:34 Novolog Vial Sliding Scale - SQ 8 units TIDAC CORDELIA Administration Protocol Insulin Detemir 20 units 09/11/17 12:15 09/11/17 12:43 Levemir Vial SQ 20 units HS CORDELIA Administration Ipratropium [place] 1 amp 09/11/17 06:00 09/11/17 12:32 Atrovent 0.02% Nebulizer - NEB 1 amp QIDR CORDELIA Administration Meclizine HCl 25 mg 09/11/17 06:00 Antivert - PO Q6HPO PRN VERTIGO Metoprolol Tartrate 5 mg 09/11/17 10:25 09/11/17 17:24 Lopressor Injection - IVPUSH 5 mg Q4H PRN Administration HYPERTENSION Ondansetron HCl 4 mg 09/11/17 02:02 Zofran Injection IVPUSH Q6H PRN NAUSEA Pantoprazole Sodium 40 mg 09/11/17 10:00 09/11/17 09:39 Protonix Iv IVPUSH 40 mg DAILY CORDELIA Administration Prochlorperazine Edisylate 10 mg 09/11/17 02:02 Compazine Injection - IVPB Q4H PRN NAUSEA AND/OR VOMITING ASSESSMENT/PLAN: A: 62 y/o woman with h/o HTN, HLD, Afib (on AC), IDDM and colon cancer s/p resection with lung mets on chemo who presented with nausea/ vomiting and dysfunctional chemo port, found to have brain mets as well as infarcts also with confirmed malpositioning of port in artery possibly leading to ischemic changes now s/p port removal. P: Imaging consistent with presumed mets - neurosurgery following - serial neuro exams - continue dexamethasone - maintain specific hemodynamic parameters as outlined below HTN, - cardiology following - close hemodynamic monitoring - diltiazem gtt for goal map 70-90 - resume anticoagulation Afib on AC at at baseline - heparin gtt - [id number] score- 6 Extubated post-op - titrate O2 to maintain Spo2>93% - initiate NIPPV Colon Ca s/p resection now with mets to lung and brain on chemo - Onc following - heparin gtt for AC in am IDDM - follow BG - sliding scale as needed - levemir CRI (baseline creat > 1.2) - trend - hold IVF 2/2 possibility of cerebral edema F/E/N - NPO PPX - PPI - heparin gtt Dispo- requires ICU care. Visit type - Emergency Visit Emergency Visit: Yes ED Registration Date: 09/10/17 Care time: The patient presented to the Emergency Department on the above date and was hospitalized for further evaluation of their emergent condition. - New Patient This patient is new to me today: Yes Date on this admission: 09/11/17 - Critical Care Critical Care patient: Yes Total Critical Care Time (in minutes): 45 Critical Care Statement: The care of this patient involved high complexity decision making to prevent further life threatening deterioration of the patient 's condition and/or to evaluate & treat vital organ system(s) failure or risk of failure.
[2017-09-11] MEDS ORDERED: DEXAMETHASONE SOD PHOSPHATE 10 MG/1 ML VIAL IVPUSH SCH (18:00)
--- NOTE | 2017-09-11 18:10 | PN ---
Progress Note (short form) - Note Progress Note: Patient seen and examined anxious. c/o rt. facial pain Last Vital Signs Temp Pulse Resp BP Pulse Ox 98.3 F 109 H 12 186/67 97 09/11/17 14:00 09/11/17 17:24 09/11/17 17:00 09/11/17 17:24 09/11/17 17:22 HEENT--nystagmus Cor: RSR, No murmurs, No gallops Lungs: Clear to P&A Abd: Soft, Normal bowel sounds, No organomegaly Ext:No significant edema Neuro: agitated/anxious/moving all extremities/following commands Abnormal Lab Results 09/09/17 09/11/17 09/11/17 22:58 01:13 02:00 WBC RBC Hgb Hct MCH MCHC RDW MPV ABG pH 7.03 L* D 7.20 L* D ABG pCO2 at Pt Temp 76.0 H* D ABG pO2 at Pt Temp 107.0 H 146.0 H D ABG HCO3 19.1 L 16.2 L ABG O2 Content 12.1 L 12.5 L ABG Base Excess -11.8 L* -10.7 L* Potassium Chloride Carbon Dioxide BUN Creatinine Random Glucose Calcium AST Alkaline Phosphatase Total Protein Albumin Acetone, Qual Crossmatch IS Only See Detail 09/11/17 09/11/17 09/11/17 04:15 04:15 04:15 WBC 11.7 H D RBC 3.22 L Hgb 8.3 L D Hct 26.7 L D MCH MCHC 31.0 L RDW 16.5 H MPV 6.4 L ABG pH ABG pCO2 at Pt Temp ABG pO2 at Pt Temp ABG HCO3 ABG O2 Content ABG Base Excess Potassium 5.4 H Chloride Carbon Dioxide 16 L D BUN 46 H D Creatinine 2.1 H D Random Glucose 604 H* D Calcium 8.0 L AST 10 L D Alkaline Phosphatase 141 H D Total Protein 5.7 L D Albumin 2.7 L D Acetone, Qual Positive large 3+ H Crossmatch IS Only 09/11/17 09/11/17 09/11/17 06:00 06:48 07:40 WBC RBC Hgb Hct MCH MCHC RDW MPV ABG pH 7.24 L* 7.26 L ABG pCO2 at Pt Temp ABG pO2 at Pt Temp 255.0 H* ABG HCO3 14.6 L* 16.7 L ABG O2 Content 11.8 L 11.8 L ABG Base Excess -11.6 L* -9.2 L Potassium Chloride 111 H Carbon Dioxide 17 L BUN 47 H Creatinine 2.2 H Random Glucose 473 H* D Calcium AST Alkaline Phosphatase Total Protein Albumin Acetone, Qual Crossmatch IS Only 09/11/17 09/11/17 08:50 14:05 WBC 12.0 H RBC 3.37 L Hgb 8.5 L Hct 27.2 L MCH 25.3 L MCHC 31.3 L RDW 16.4 H MPV 6.2 L ABG pH ABG pCO2 at Pt Temp ABG pO2 at Pt Temp ABG HCO3 ABG O2 Content ABG Base Excess Potassium Chloride 111 H Carbon Dioxide 20 L BUN 49 H Creatinine 2.2 H Random Glucose 403 H* Calcium 8.3 L AST Alkaline Phosphatase Total Protein Albumin Acetone, Qual Crossmatch IS Only Active Medications Atorvastatin Calcium (Lipitor -) 20 mg PO HS CORDELIA Dexamethasone Sodium Phosphate (Decadron Injection -) 10 mg IVPUSH Q8H-IV CORDELIA Last Admin: 09/11/17 17:24 Dose: 10 mg Epinephrine (S-2) 1 vial NEB Q6H PRN PRN Reason: stridor Last Admin: 09/11/17 12:32 Dose: 1 vial Gabapentin (Neurontin -) 300 mg PO BID CORDELIA Last Admin: 09/11/17 09:39 Dose: 300 mg Heparin Sodium (Porcine) (Heparin -) 1,000 unit IVPUSH PRN PRN PRN Reason: Heparin Heparin Sodium (Porcine) (Heparin -) 5,000 unit IVPUSH PRN PRN PRN Reason: Heparin Hydralazine HCl (Apresoline Injection -) 10 mg IVPUSH Q6H PRN PRN Reason: HYPERTENSION Sodium Chloride (Normal Saline -) 1,000 mls @ 75 mls/hr IV ASDIR CORDELIA Diltiazem HCl 125 mg/ Dextrose 125 mls @ 5 mls/hr IVPB TITR CORDELIA; 5 MG/HR PRN Reason: Protocol HEPARIN SOD,PORK IN 0.45% NACL (Heparin-1/2ns 25,000 Units/500) 25,000 units in 500 mls @ 20 mls/hr IVPB TITR CORDELIA; 1,000 UNIT/HR PRN Reason: Protocol Insulin Aspart (Novolog Vial Sliding Scale -) 1 vial SQ HS CORDELIA PRN Reason: Protocol Insulin Aspart (Novolog Vial Sliding Scale -) 1 vial SQ TIDAC CORDELIA PRN Reason: Protocol Last Admin: 09/11/17 12:34 Dose: 8 units Insulin Detemir (Levemir Vial) 20 units SQ HS CORDELIA Last Admin: 09/11/17 12:43 Dose: 20 units Ipratropium [place] (Atrovent 0.02% Nebulizer -) 1 amp NEB QIDR [facility] Last Admin: 09/11/17 17:28 Dose: 1 amp Meclizine HCl (Antivert -) 25 mg PO Q6HPO PRN PRN Reason: VERTIGO Metoprolol Tartrate (Lopressor Injection -) 5 mg IVPUSH Q4H PRN PRN Reason: HYPERTENSION Last Admin: 09/11/17 17:24 Dose: 5 mg Ondansetron HCl (Zofran Injection) 4 mg IVPUSH Q6H PRN PRN Reason: NAUSEA Pantoprazole Sodium (Protonix Iv) 40 mg IVPUSH DAILY [facility] Last Admin: 09/11/17 09:39 Dose: 40 mg Prochlorperazine Edisylate (Compazine Injection -) 10 mg IVPB Q4H PRN PRN Reason: NAUSEA AND/OR VOMITING A/P 62 yo woman with h/o HTN, Chol, DM, ASHD, AFib and moderate renal insufficiency is s/p colectomy 2011 for colonic CA now metastatic to the lungs Recently had portal placed for chemo Rx with attempted infusion Friday AM. Soon thereafter, patient developed headache, nausea, vomiting and unsteadiness. CT of head (reviewed) suggested ischemic changes in the posterior fossa (left cerebellum > right) and the parietal region. MRI confirmed extensive changes including B/L cerebellar infarcts (L>>R); a left lateral medullary (brainstem) infarct, and multiple, scattered hemispheric infarcts. In addition, multiple, small, lesions with surrounding edema are suggestive of metastatic lesions. Discussed with Dr. Pulido and DR. Shelley will taper dexamethasone to 4mg Q 12h Monitor BPs and blood sugars closely on heparin drip without bolus discussed with icu team
[2017-09-11 20:05] LABS: URINE APPEARANCE CLEAR; URINE BILIRUBIN NEGATIVE (NEGATIVE); URINE BLOOD 1+ (NEGATIVE); URINE COLOR LTYELLOW; URINE GLUCOSE (UA) 3+ (NEGATIVE); URINE KETONE TRACE (NEGATIVE); URINE LEUK ESTERASE NEGATIVE (NEGATIVE); URINE NITRITE NEGATIVE (NEGATIVE); URINE UROBILINOGEN NEGATIVE mg/dL (0.2-1.0)
[2017-09-11 20:10] LABS: URINE PROTEIN 3+ (NEGATIVE)
[2017-09-11] MEDS: hydrALAZINE HCL 20 MG/ML VIAL IVPUSH PRN (22:29)
[2017-09-11] MEDS: ATORVASTATIN CA 20 MG TABLET (FP) PO SCH (22:30)
[2017-09-12] MEDS: METOPROLOL TARTRATE 5 MG/5 ML VIAL IVPUSH PRN ×2 (04:16→08:30)
[2017-09-12] MEDS: IPRATROPIUM BR 0.02% 0.5 MG/2.5 ML VIAL.NEB. NEB SCH ×4 (06:14→23:04)
[2017-09-12] MEDS: INSULIN SLIDING SCALE (NOVOLOG) 1 VIAL SQ SCH ×4 (06:33→21:49)
[2017-09-12 06:56] LABS: HEMATOCRIT 27.1 % (32.4-45.2); HEMOGLOBIN 8.6 GM/dL (10.7-15.3); MCH 25.6 pg (25.7-33.7); MCHC 31.7 g/dl (32.0-36.0); MEAN CELL VOLUME 80.7 fl (80-96); PLATELET COUNT 424 K/MM3 (134-434); RBC 3.36 M/mm3 (3.60-5.2); RDW 16.8 % (11.6-15.6); WHITE BLOOD COUNT 17.3 K/mm3 (4.0-10.0)
[2017-09-12 07:04] LABS: ALBUMIN 2.9 g/dl (3.4-5.0); BLOOD UREA NITROGEN 41 mg/dL (7-18); CHLORIDE 115 mmol/L (98-107); GLUCOSE,RANDOM 223 mg/dL (74-106); PHOSPHOROUS 3.3 mg/dL (2.5-4.9); POTASSIUM 4.2 mmol/L (3.5-5.1); SGOT/AST 23 U/L (15-37); SODIUM 146 mmol/L (136-145)
[2017-09-12 07:06] LABS: ALK PHOS 134 U/L (45-117); ANION GAP 12 (8-16); BILIRUBIN,TOTAL 0.2 mg/dL (0.2-1.0); CALCIUM 8.7 mg/dL (8.5-10.1); CO2 19 mmol/L (21-32); CREATININE 1.7 mg/dL (0.55-1.02); MAGNESIUM 2.4 mg/dL (1.8-2.4); SGPT/ALT 12 U/L (12-78); TOT PROT 6.2 g/dl (6.4-8.2)
--- NOTE | 2017-09-12 07:18 | PN ---
Progress Note (short form) - Note Progress Note: Thoracic Port out. Appears neurologically improved compared to two days ago. Appreciate all consultations. From my point of view OK to anticoagulate. Consider TTE (?bubble study) depending on Dr. Kenyon's thoughts.
[2017-09-12 07:21] LABS: INR 1.04 (0.82-1.09); PROTHROMBIN TIME (PATIENT) 11.7 SEC (9.98-11.88)
[2017-09-12 07:25] LABS: ACTIVATED PTT 69.7 SECONDS (26.9-34.4)
--- NOTE | 2017-09-12 08:54 | PATH ---
Surgical Pathology Report Patient Name: ROSALIND LAROSE Med. Rec. #: [id number] /Age/Gender: 1955 (Age: 62) / F Account: [id number] Location: ICU SALESPERSON SHOES Taken: 09/10/2017 Received: 09/11/2017 Reported: 09/12/2017 Physicians: Tariq Wright M.D. 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 Electronically Signed Daniel Gama M.D. Gross Description Received fresh labeled "old Port-A-Cath," is a 3.8 x 2.8 x 1.3 cm purple, irregular device, consistent with a portacath. The specimen displays a 20 cm in length portion of tubing extending from one aspect. No soft tissue is present. No sections are submitted, gross only. /09/11/2017 saudi09/11/2017
[2017-09-12] MEDS: DEXAMETHASONE SOD PHOSPHATE 4 MG/1 ML VIAL IVPB SCH ×2 (09:18→21:41)
[2017-09-12] MEDS: GABAPENTIN 300 MG CAPSULE (FP) PO SCH (09:19)
[2017-09-12] MEDS: PANTOPRAZOLE SODIUM 40 MG VIAL IVPUSH SCH (09:19)
--- NOTE | 2017-09-12 09:37 | OPR ---
Patient Name: Renata Neely MR#: [id number] Procedure Date: 09/11/16 Preoperative Diagnosis: Metastatic colorectal cancer Postoperative Diagnosis: same Procedure: 1. Removal of mediport; 2. Vascular repair. Indication: Metastatic disease. Surgeon(s): Misbah Puga MD Cosurgeon: n/a. Special Effects Specialist Surgeon: Jie Henry MD Anesthesia: General; Findings: Port removed and defect closed with fine prolenes in u-stitch fashion ; non-pulsatile but high pressure; good pulse after closure. Specimens Sent: n/a Complications: none Drains / Tubes / Catheters: na Hardware / Implants: na Blood / Fluid Losses: 50cc Post-Operative Condition: Hemodynamically stable in transfer to PACU. Indications: This patient is a 62 year-old female with metastatic colorectal cancer, renal insufficiency, and a history of a prior right-sided portacath. She was admitted for a stroke although it was unclear on imaging if this was metastatic disease or multiple emboli. Her port had been accessed prior to this and the pressure was high so this was aborted. A CT scan was done and because it was not working well and appeared to not be in the superior vena cava, an informed consent was obtained from the patients daughter to remove it. The patients daughter understood. Details of Procedure: The patient was taken to the operating room. Intraoperative monitoring was performed including pulse oximetry and blood pressure monitoring. The patient was supine in the bed, sedated and intubated. We prepared and draped her. Preoperative cefazolin was given. We began by giving local to the port site and the vessel site. We then cut down onto the port where it entered the vessel. We dissected through scar tissue down to the vessels. A u-stitch was placed with fine prolene. The port was removed and this was tied down. The flow briefly was brisk while tieing but not obviously pulsatile. We then placed surgicell and closed the fascia and muscle over this. Hemostasis was adequate. The mediport was removed next. The pocket was irrigated. This was closed. Absorbable sutures and darin were placed. Sterile dressings were placed. The patient was extubated and awakened and transferred in stable condition to the recovery room.
[2017-09-12] MEDS ORDERED: HEPARIN NA (PORCINE) 5,000 UNITS/ML 1ML VIAL IVPUSH PRN ×4 (09:38→19:46)
[2017-09-12] MEDS: RACEPINEPHRINE IH SOL 2.25% 11.25 MG/0.5 ML VIAL NEB PRN (09:40)
--- NOTE | 2017-09-12 10:23 | EKG ---
Test Reason : Blood Pressure : / mmHG Vent. Rate : 110 BPM Atrial Rate : 125 BPM P-R Int : 000 ms QRS Dur : 082 ms QT Int : 348 ms P-R-T Axes : 000 050 129 degrees QTc Int : 470 ms ATRIAL FIBRILLATION WITH RAPID VENTRICULAR RESPONSE NONSPECIFIC ST AND T WAVE ABNORMALITY ABNORMAL ECG Confirmed by TEOFILO ESPINOZA MD ([id number]) on 09/12/2017 10:23:17 AM Referred By: Confirmed By:TEOFILO ESPINOZA MD
[2017-09-12] MEDS ORDERED: HEMOQUE TEST 1 EACH EACH ONE (11:08)
--- NOTE | 2017-09-12 11:09 | PN ---
Teaching Attending Note Name of Resident: Carson Lopez ATTENDING PHYSICIAN STATEMENT I saw and evaluated the patient. I reviewed the resident's note and discussed the case with the resident. I agree with the resident's findings and plan as documented. SUBJECTIVE: Patient seen and examined in the ICU. Confused and agitated. Stridor heard, which is apparently slightly better than yesterday. Mental status worse than yesterday (noted AC started). Intake & Output 09/09/17 09/10/17 09/11/17 09/12/17 23:59 23:59 23:59 23:59 Intake Total 800 2098 1177 Output Total 550 1600 1000 Balance 250 498 177 Weight 185 lb 184 lb 186 lb 1.122 oz Last Vital Signs Temp Pulse Resp BP Pulse Ox 97.2 F L 180 H 21 190/100 96 09/12/17 02:00 09/12/17 08:30 09/12/17 07:00 09/12/17 08:30 09/12/17 10:25 Active Medications Atorvastatin Calcium (Lipitor -) 20 mg PO HS CORDELIA Last Admin: 09/11/17 22:30 Dose: 20 mg Dexamethasone Sodium Phosphate (Decadron Injection -) 4 mg IVPB BID CORDELIA Last Admin: 09/12/17 09:18 Dose: 4 mg Epinephrine (S-2) 1 vial NEB Q6H PRN PRN Reason: stridor Last Admin: 09/12/17 09:40 Dose: 1 vial Gabapentin (Neurontin -) 300 mg PO BID CORDELIA Last Admin: 09/12/17 09:19 Dose: Not Given Heparin Sodium (Porcine) (Heparin -) 1,000 unit IVPUSH PRN PRN PRN Reason: Heparin Heparin Sodium (Porcine) (Heparin -) 5,000 unit IVPUSH PRN PRN PRN Reason: Heparin Hydralazine HCl (Apresoline Injection -) 10 mg IVPUSH Q6H PRN PRN Reason: HYPERTENSION Last Admin: 09/11/17 22:29 Dose: 10 mg Sodium Chloride (Normal Saline -) 1,000 mls @ 75 mls/hr IV ASDIR CORDELIA Last Admin: 09/11/17 14:30 Dose: 75 mls/hr Diltiazem HCl 125 mg/ Dextrose 125 mls @ 5 mls/hr IVPB TITR CORDELIA; 5 MG/HR PRN Reason: Protocol Last Admin: 09/11/17 14:00 Dose: 15 mg/hr, 15 mls/hr HEPARIN SOD,PORK IN 0.45% NACL (Heparin-1/2ns 25,000 Units/500) 25,000 unit in 500 mls @ 16 mls/hr IVPB TITR CORDELIA; 800 UNITS/HR PRN Reason: Protocol Last Titration: 09/12/17 01:00 Dose: 900 units/hr, 18 mls/hr Insulin Aspart (Novolog Vial Sliding Scale -) 1 vial SQ HS [facility] PRN Reason: Protocol Last Admin: 09/11/17 22:31 Dose: 8 units Insulin Aspart (Novolog Vial Sliding Scale -) 1 vial SQ TIDAC [facility] PRN Reason: Protocol Last Admin: 09/12/17 06:33 Dose: 4 units Insulin Detemir (Levemir Vial) 20 units SQ HS [facility] Last Admin: 09/11/17 22:30 Dose: 20 units Ipratropium [place] (Atrovent 0.02% Nebulizer -) 1 amp NEB QIDR [facility] Last Admin: 09/12/17 11:04 Dose: 1 amp Meclizine HCl (Antivert -) 25 mg PO Q6HPO PRN PRN Reason: VERTIGO Metoprolol Tartrate (Lopressor Injection -) 5 mg IVPUSH Q4H PRN PRN Reason: HYPERTENSION Last Admin: 09/12/17 08:30 Dose: 5 mg Ondansetron HCl (Zofran Injection) 4 mg IVPUSH Q6H PRN PRN Reason: NAUSEA Pantoprazole Sodium (Protonix Iv) 40 mg IVPUSH DAILY [facility] Last Admin: 09/12/17 09:19 Dose: 40 mg Prochlorperazine Edisylate (Compazine Injection -) 10 mg IVPB Q4H PRN PRN Reason: NAUSEA AND/OR VOMITING Constitutional: Yes: Confused and agitated Eyes: Yes: pupil equal and reactive HENT: Yes: Other (surgical sites on neck/ chest dressing clean/ dry/ intact) Neck: Yes: Supple Cardiovascular: Yes: Regular Rate and Rhythm, S1, S2 Respiratory: Yes: Diminished, scattered rhonchi Gastrointestinal: Yes: Soft Extremities: Yes: WNL Edema: No Peripheral Pulses WNL: Yes Wound/Incision: Yes: Dressing Dry and Intact Neurological: Yes: Unresponsive, Other (altered, not following, moving all extremities) Labs: Laboratory Results - last 24 hr 09/09/17 09/11/17 09/11/17 22:58 06:46 08:27 WBC RBC Hgb Hct MCV MCH MCHC RDW Plt Count MPV PT with INR INR PTT (Actin FS) Sodium Potassium Chloride Carbon Dioxide Anion Gap BUN Creatinine Creat Clearance w eGFR POC Glucometer > 400 > 400 Random Glucose Calcium Phosphorus Magnesium Total Bilirubin AST ALT Alkaline Phosphatase Total Protein Albumin Urine Color Urine Appearance Urine pH Ur Specific [place] Urine Protein Urine Glucose (UA) Urine Ketones Urine Blood Urine Nitrite Urine Bilirubin Urine Urobilinogen Ur Random Sodium Ur Random Potassium Ur Random Chloride Urine Creatinine Crossmatch IS Only See Detail 09/11/17 09/11/17 09/11/17 10:49 12:32 14:05 WBC 12.0 H RBC 3.37 L Hgb 8.5 L Hct 27.2 L MCV 80.7 MCH 25.3 L MCHC 31.3 L RDW 16.4 H Plt Count 373 MPV 6.2 L PT with INR INR PTT (Actin FS) Sodium Potassium Chloride Carbon Dioxide Anion Gap BUN Creatinine Creat Clearance w eGFR POC Glucometer [phone] Random Glucose Calcium Phosphorus Magnesium Total Bilirubin AST ALT Alkaline Phosphatase Total Protein Albumin Urine Color Urine Appearance Urine pH Ur Specific [place] Urine Protein Urine Glucose (UA) Urine Ketones Urine Blood Urine Nitrite Urine Bilirubin Urine Urobilinogen Ur Random Sodium Ur Random Potassium Ur Random Chloride Urine Creatinine Crossmatch IS Only 09/11/17 09/11/17 09/11/17 14:39 15:54 17:37 WBC RBC Hgb Hct MCV MCH MCHC RDW Plt Count MPV PT with INR INR PTT (Actin FS) Sodium Potassium Chloride Carbon Dioxide Anion Gap BUN Creatinine Creat Clearance w eGFR POC Glucometer 191.25994 268.78087 [phone] Random Glucose Calcium Phosphorus Magnesium Total Bilirubin AST ALT Alkaline Phosphatase Total Protein Albumin Urine Color Urine Appearance Urine pH Ur Specific [place] Urine Protein Urine Glucose (UA) Urine Ketones Urine Blood Urine Nitrite Urine Bilirubin Urine Urobilinogen Ur Random Sodium Ur Random Potassium Ur Random Chloride Urine Creatinine Crossmatch IS Only 09/11/17 09/11/17 09/11/17 19:13 19:30 19:30 WBC RBC Hgb Hct MCV MCH MCHC RDW Plt Count MPV PT with INR INR PTT (Actin FS) Sodium Potassium Chloride Carbon Dioxide Anion Gap BUN Creatinine Creat Clearance w eGFR POC Glucometer > 400 Random Glucose Calcium Phosphorus Magnesium Total Bilirubin AST ALT Alkaline Phosphatase Total Protein Albumin Urine Color Ltyellow Urine Appearance Clear Urine pH 5.0 Ur Specific [place] 1.012 Urine Protein 3+ H Urine Glucose (UA) 3+ H Urine Ketones Trace H Urine Blood 1+ H Urine Nitrite Negative Urine Bilirubin Negative Urine Urobilinogen Negative Ur Random Sodium Ur Random Potassium Ur Random Chloride Urine Creatinine 78.3 Crossmatch IS Only 09/11/17 09/11/17 09/12/17 19:30 22:08 00:05 WBC RBC Hgb Hct MCV MCH MCHC RDW Plt Count MPV PT with INR INR PTT (Actin FS) 49.7 H D Sodium Potassium Chloride Carbon Dioxide Anion Gap BUN Creatinine Creat Clearance w eGFR POC Glucometer > 400 Random Glucose Calcium Phosphorus Magnesium Total Bilirubin AST ALT Alkaline Phosphatase Total Protein Albumin Urine Color Urine Appearance Urine pH Ur Specific [place] Urine Protein Urine Glucose (UA) Urine Ketones Urine Blood Urine Nitrite Urine Bilirubin Urine Urobilinogen Ur Random Sodium 44 Ur Random Potassium 25.1 Ur Random Chloride 31 Urine Creatinine Crossmatch IS Only 09/12/17 09/12/17 09/12/17 05:34 06:10 06:10 WBC 17.3 H D RBC 3.36 L Hgb 8.6 L Hct 27.1 L MCV 80.7 MCH 25.6 L MCHC 31.7 L RDW 16.8 H Plt Count 424 MPV 7.0 L D PT with INR INR PTT (Actin FS) Sodium 146 H Potassium 4.2 Chloride 115 H Carbon Dioxide 19 L Anion Gap 12 BUN 41 H Creatinine 1.7 H D Creat Clearance w eGFR 30.66 POC Glucometer [phone] Random Glucose 223 H D Calcium 8.7 Phosphorus 3.3 D Magnesium 2.4 Total Bilirubin 0.2 AST 23 D ALT 12 Alkaline Phosphatase 134 H Total Protein 6.2 L Albumin 2.9 L Urine Color Urine Appearance Urine pH Ur Specific [place] Urine Protein Urine Glucose (UA) Urine Ketones Urine Blood Urine Nitrite Urine Bilirubin Urine Urobilinogen Ur Random Sodium Ur Random Potassium Ur Random Chloride Urine Creatinine Crossmatch IS Only 09/12/17 06:10 WBC RBC Hgb Hct MCV MCH MCHC RDW Plt Count MPV PT with INR 11.70 INR 1.04 PTT (Actin FS) 69.7 H D Sodium Potassium Chloride Carbon Dioxide Anion Gap BUN Creatinine Creat Clearance w eGFR POC Glucometer Random Glucose Calcium Phosphorus Magnesium Total Bilirubin AST ALT Alkaline Phosphatase Total Protein Albumin Urine Color Urine Appearance Urine pH Ur Specific [place] Urine Protein Urine Glucose (UA) Urine Ketones Urine Blood Urine Nitrite Urine Bilirubin Urine Urobilinogen Ur Random Sodium Ur Random Potassium Ur Random Chloride Urine Creatinine Crossmatch IS Only Problem List - Problems (1) Hypercapnia Code(s): R06.89 - OTHER ABNORMALITIES OF BREATHING (2) Brain metastasis Code(s): C79.31 - SECONDARY MALIGNANT NEOPLASM OF BRAIN (3) Headache Code(s): R51 - HEADACHE Qualifiers: Headache chronicity pattern: unspecified pattern Intractability: intractable (4) Intractable vomiting with nausea Code(s): R11.2 - NAUSEA WITH VOMITING, UNSPECIFIED Qualifiers: Vomiting type: unspecified Qualified Code(s): R11.2 - Nausea with vomiting , unspecified (5) Metastatic colorectal cancer Code(s): C78.5 - SECONDARY MALIGNANT NEOPLASM OF LARGE INTESTINE AND RECTUM (6) Atrial fibrillation Code(s): I48.91 - UNSPECIFIED ATRIAL FIBRILLATION (7) Diabetes mellitus, insulin dependent (IDDM), uncontrolled Code(s): E10.65 - TYPE 1 DIABETES MELLITUS WITH HYPERGLYCEMIA (8) HLD (hyperlipidemia) Code(s): E78.5 - HYPERLIPIDEMIA, UNSPECIFIED (9) HTN (hypertension) Code(s): I10 - ESSENTIAL (PRIMARY) HYPERTENSION Assessment/Plan CT Head STAT Aspiration precautions O2 to maintain saturation Follow Neuro exam Can restart AC if CT head is negative for bleed Cardizem drip for rate control Follow renal function Glycemic control PPI Need to discuss with [facility] Dr Kaplan Critical care time spent in reviewing chart, evaluating patient and formulating plan - 38 minutes.
--- NOTE | 2017-09-12 11:09 | PN ---
Physical Exam: SUBJECTIVE: Patient seen and examined in ICU Patient increasingly agitated today. Change in mental status. Patient continues to have audible stridor. Patient started on Heparin drip yesterday. OBJECTIVE: Vital Signs Period Temp Pulse Resp BP Sys/Mcdaniel Pulse Ox Last 24 Hr 97.2 F-98.3 F 90-180 11-21 131-190/61-100 96-100 GENERAL: The patient is awake, confused, agitated. HEAD: Normal with no signs of trauma. EYES: Left eye erythema with conjunctival injection. Patient appears to have scratched cornea with long fingernails ENT: Patient on ventimask NECK: Trachea midline, Surgical site c/d/i on neck LUNGS: Breath sounds dimished at bases, clear to auscultation bilaterally, no wheezes, no crackles, no accessory muscle use. HEART: Tachycardic, S1, S2 without murmur, rub or gallop. ABDOMEN: Soft, nontender, nondistended, normoactive bowel sounds, no guarding, no rebound, no hepatosplenomegaly, no masses. EXTREMITIES: 2+ pulses, warm, well-perfused, no edema. NEUROLOGICAL: Unresponsive, uncooperative to perform neuro exam. Patient unable to move extremities. PSYCH: Normal mood, normal affect. SKIN: Warm, dry, normal turgor, no rashes or lesions noted Laboratory Results - last 24 hr 09/09/17 09/11/17 09/11/17 22:58 06:46 08:27 WBC RBC Hgb Hct MCV MCH MCHC RDW Plt Count MPV PT with INR INR PTT (Actin FS) Sodium Potassium Chloride Carbon Dioxide Anion Gap BUN Creatinine Creat Clearance w eGFR POC Glucometer > 400 > 400 Random Glucose Calcium Phosphorus Magnesium Total Bilirubin AST ALT Alkaline Phosphatase Total Protein Albumin Urine Color Urine Appearance Urine pH Ur Specific [place] Urine Protein Urine Glucose (UA) Urine Ketones Urine Blood Urine Nitrite Urine Bilirubin Urine Urobilinogen Ur Random Sodium Ur Random Potassium Ur Random Chloride Urine Creatinine Crossmatch IS Only See Detail 09/11/17 09/11/17 09/11/17 12:32 14:05 14:39 WBC 12.0 H RBC 3.37 L Hgb 8.5 L Hct 27.2 L MCV 80.7 MCH 25.3 L MCHC 31.3 L RDW 16.4 H Plt Count 373 MPV 6.2 L PT with INR INR PTT (Actin FS) Sodium Potassium Chloride Carbon Dioxide Anion Gap BUN Creatinine Creat Clearance w eGFR POC Glucometer 250.83387 [phone] Random Glucose Calcium Phosphorus Magnesium Total Bilirubin AST ALT Alkaline Phosphatase Total Protein Albumin Urine Color Urine Appearance Urine pH Ur Specific [place] Urine Protein Urine Glucose (UA) Urine Ketones Urine Blood Urine Nitrite Urine Bilirubin Urine Urobilinogen Ur Random Sodium Ur Random Potassium Ur Random Chloride Urine Creatinine Crossmatch IS Only 09/11/17 09/11/17 09/11/17 15:54 17:37 19:13 WBC RBC Hgb Hct MCV MCH MCHC RDW Plt Count MPV PT with INR INR PTT (Actin FS) Sodium Potassium Chloride Carbon Dioxide Anion Gap BUN Creatinine Creat Clearance w eGFR POC Glucometer 268.78990 [phone] > 400 Random Glucose Calcium Phosphorus Magnesium Total Bilirubin AST ALT Alkaline Phosphatase Total Protein Albumin Urine Color Urine Appearance Urine pH Ur Specific [place] Urine Protein Urine Glucose (UA) Urine Ketones Urine Blood Urine Nitrite Urine Bilirubin Urine Urobilinogen Ur Random Sodium Ur Random Potassium Ur Random Chloride Urine Creatinine Crossmatch IS Only 09/11/17 09/11/17 09/11/17 19:30 19:30 19:30 WBC RBC Hgb Hct MCV MCH MCHC RDW Plt Count MPV PT with INR INR PTT (Actin FS) Sodium Potassium Chloride Carbon Dioxide Anion Gap BUN Creatinine Creat Clearance w eGFR POC Glucometer Random Glucose Calcium Phosphorus Magnesium Total Bilirubin AST ALT Alkaline Phosphatase Total Protein Albumin Urine Color Ltyellow Urine Appearance Clear Urine pH 5.0 Ur Specific [place] 1.012 Urine Protein 3+ H Urine Glucose (UA) 3+ H Urine Ketones Trace H Urine Blood 1+ H Urine Nitrite Negative Urine Bilirubin Negative Urine Urobilinogen Negative Ur Random Sodium 44 Ur Random Potassium 25.1 Ur Random Chloride 31 Urine Creatinine 78.3 Crossmatch IS Only 09/11/17 09/12/17 09/12/17 22:08 00:05 05:34 WBC RBC Hgb Hct MCV MCH MCHC RDW Plt Count MPV PT with INR INR PTT (Actin FS) 49.7 H D Sodium Potassium Chloride Carbon Dioxide Anion Gap BUN Creatinine Creat Clearance w eGFR POC Glucometer > 400 251.94351 Random Glucose Calcium Phosphorus Magnesium Total Bilirubin AST ALT Alkaline Phosphatase Total Protein Albumin Urine Color Urine Appearance Urine pH Ur Specific [place] Urine Protein Urine Glucose (UA) Urine Ketones Urine Blood Urine Nitrite Urine Bilirubin Urine Urobilinogen Ur Random Sodium Ur Random Potassium Ur Random Chloride Urine Creatinine Crossmatch IS Only 09/12/17 09/12/17 09/12/17 06:10 06:10 06:10 WBC 17.3 H D RBC 3.36 L Hgb 8.6 L Hct 27.1 L MCV 80.7 MCH 25.6 L MCHC 31.7 L RDW 16.8 H Plt Count 424 MPV 7.0 L D PT with INR 11.70 INR 1.04 PTT (Actin FS) 69.7 H D Sodium 146 H Potassium 4.2 Chloride 115 H Carbon Dioxide 19 L Anion Gap 12 BUN 41 H Creatinine 1.7 H D Creat Clearance w eGFR 30.66 POC Glucometer Random Glucose 223 H D Calcium 8.7 Phosphorus 3.3 D Magnesium 2.4 Total Bilirubin 0.2 AST 23 D ALT 12 Alkaline Phosphatase 134 H Total Protein 6.2 L Albumin 2.9 L Urine Color Urine Appearance Urine pH Ur Specific [place] Urine Protein Urine Glucose (UA) Urine Ketones Urine Blood Urine Nitrite Urine Bilirubin Urine Urobilinogen Ur Random Sodium Ur Random Potassium Ur Random Chloride Urine Creatinine Crossmatch IS Only Active Medications Generic Name Dose Route Start Last Admin Trade Name Freq PRN Reason Stop Dose Admin Atorvastatin Calcium 20 mg 09/11/17 22:00 09/11/17 22:30 Lipitor - PO 20 mg HS CORDELIA Administration Dexamethasone Sodium Phosphate 4 mg 09/11/17 22:00 09/12/17 09:18 Decadron Injection - IVPB 4 mg BID CORDELIA Administration Epinephrine 1 vial 09/11/17 10:21 09/12/17 09:40 S-2 NEB 1 vial Q6H PRN Administration stridor Gabapentin 300 mg 09/11/17 10:00 09/12/17 09:19 Neurontin - PO Not Given BID CORDELIA Heparin Sodium (Porcine) 1,000 unit 09/11/17 14:36 Heparin - IVPUSH PRN PRN Heparin Heparin Sodium (Porcine) 5,000 unit 09/11/17 14:36 Heparin - IVPUSH PRN PRN Heparin Hydralazine HCl 10 mg 09/11/17 10:25 09/11/17 22:29 Apresoline Injection - IVPUSH 10 mg Q6H PRN Administration HYPERTENSION Sodium Chloride 1,000 mls @ 75 mls/hr 09/11/17 14:30 09/11/17 14:30 Normal Saline - IV 75 mls/hr ASDIR CORDELIA Administration Diltiazem HCl 125 mg/ Dextrose 125 mls @ 5 mls/hr 09/11/17 14:27 09/11/17 14: 00 IVPB 15 mg/hr TITR CORDELIA 15 mls/hr Protocol Administration 5 MG/HR HEPARIN SOD,PORK IN 0.45% NACL 25,000 unit in 500 mls @ 16 mls/hr 09/11/17 14: 45 09/12/17 01:00 Heparin-1/2ns 25,000 Units/500 IVPB 900 units/hr TITR CORDELIA 18 mls/hr Protocol Titration 800 UNITS/HR Insulin Aspart 1 vial 09/11/17 22:00 09/11/17 22:31 Novolog Vial Sliding Scale - SQ 8 units HS CORDELIA Administration Protocol Insulin Aspart 1 vial 09/11/17 07:00 09/12/17 06:33 Novolog Vial Sliding Scale - SQ 4 units TIDAC CORDELIA Administration Protocol Insulin Detemir 20 units 09/11/17 12:15 09/11/17 22:30 Levemir Vial SQ 20 units HS CORDELIA Administration Ipratropium [place] 1 amp 09/11/17 06:00 09/12/17 11:04 Atrovent 0.02% Nebulizer - NEB 1 amp QIDR CORDELIA Administration Meclizine HCl 25 mg 09/11/17 06:00 Antivert - PO Q6HPO PRN VERTIGO Metoprolol Tartrate 5 mg 09/11/17 10:25 09/12/17 08:30 Lopressor Injection - IVPUSH 5 mg Q4H PRN Administration HYPERTENSION Ondansetron HCl 4 mg 09/11/17 02:02 Zofran Injection IVPUSH Q6H PRN NAUSEA Pantoprazole Sodium 40 mg 09/11/17 10:00 09/12/17 09:19 Protonix Iv IVPUSH 40 mg DAILY CORDELIA Administration Prochlorperazine Edisylate 10 mg 09/11/17 02:02 Compazine Injection - IVPB Q4H PRN NAUSEA AND/OR VOMITING ASSESSMENT/PLAN: Assessment: 62 y/o woman with h/o HTN, HLD, Afib (on AC), IDDM and colon cancer s/p resection with lung mets on chemo who presented with nausea/ vomiting and dysfunctional chemo port, found to have brain mets as well as infarcts also with confirmed malpositioning of port in artery possibly leading to ischemic changes now s/p port removal. Neuro: Original imaging consistent with presumed mets as well as bilateral ischemic foci and areas concerning for cerebral edema. Somewhat altered prior to general anesthesia now extubated, altered, moving all extremities, not following found to be hypercapneic -neurosurgery following -serial neuro checks -Acute change in mental status, Repeat Head CT today -low threshold to repeat imaging for change in exam/ mental status -continue dexamethasone -consider seizure prophylaxis -maintain specific hemodynamic parameters as outlined below CV: HTN, HLD, Afib on AC at at baseline -cardiology consulted -close hemodynamic monitoring -diltiazem gtt for goal map 70-90 -Lipitor 20 mg po hs -IVF NS @ 75 cc/hr -Heparin drip Pulm: Extubated post-op, now hypercapneic likely in the setting of hypoventilation post-anesthesia; known lung mets, Continuous stridor -O2 as needed -Patient on Ventimask Heme/Onc: Colon Ca s/p resection now with mets to lung and likely brain on chemo , on AC at baseline, held now given new findings of brain mets -Heparin Drip for AC Renal: CRI (baseline creat > 1.2) -monitor renal fxn -renally dose meds as indicated ID: immunocompromised at baseline. No indication of active infection -trend WBC, temp curve Endo: IDDM -follow BG -sliding scale as needed FEN/GI -IVF NS @ 75 cc/hr -Monitor -NPO PPX: -PPI -Heparin drip currently CODE: FULL CODE Visit type - Emergency Visit Emergency Visit: Yes ED Registration Date: 09/10/17 Care time: The patient presented to the Emergency Department on the above date and was hospitalized for further evaluation of their emergent condition. - New Patient This patient is new to me today: Yes Date on this admission: 09/12/17 - Critical Care Critical Care patient: Yes Total Critical Care Time (in minutes): 45 Critical Care Statement: The care of this patient involved high complexity decision making to prevent further life threatening deterioration of the patient 's condition and/or to evaluate & treat vital organ system(s) failure or risk of failure.
--- NOTE | 2017-09-12 13:03 | PN ---
Progress Note, Physician Chief Complaint: EVENTS AND NOTES REVIEWED PATIENT WITH ACUTE STROKE AND MENTAL STATUS CHANGE - Current Medication List Current Medications: Active Medications Atorvastatin Calcium (Lipitor -) 20 mg PO HS CORDELIA Last Admin: 09/11/17 22:30 Dose: 20 mg Dexamethasone Sodium Phosphate (Decadron Injection -) 4 mg IVPB BID CORDELIA Last Admin: 09/12/17 09:18 Dose: 4 mg Epinephrine (S-2) 1 vial NEB Q6H PRN PRN Reason: stridor Last Admin: 09/12/17 09:40 Dose: 1 vial Gabapentin (Neurontin -) 300 mg PO BID [facility] Last Admin: 09/12/17 09:19 Dose: Not Given Heparin Sodium (Porcine) (Heparin -) 1,000 unit IVPUSH PRN PRN PRN Reason: Heparin Heparin Sodium (Porcine) (Heparin -) 5,000 unit IVPUSH PRN PRN PRN Reason: Heparin Hydralazine HCl (Apresoline Injection -) 10 mg IVPUSH Q6H PRN PRN Reason: HYPERTENSION Last Admin: 09/11/17 22:29 Dose: 10 mg Sodium Chloride (Normal Saline -) 1,000 mls @ 75 mls/hr IV ASDIR [facility] Last Admin: 09/11/17 14:30 Dose: 75 mls/hr Diltiazem HCl 125 mg/ Dextrose 125 mls @ 5 mls/hr IVPB TITR CORDELIA; 5 MG/HR PRN Reason: Protocol Last Admin: 09/11/17 14:00 Dose: 15 mg/hr, 15 mls/hr HEPARIN SOD,PORK IN 0.45% NACL (Heparin-1/2ns 25,000 Units/500) 25,000 unit in 500 mls @ 16 mls/hr IVPB TITR CORDELIA; 800 UNITS/HR PRN Reason: Protocol Last Titration: 09/12/17 01:00 Dose: 900 units/hr, 18 mls/hr Insulin Aspart (Novolog Vial Sliding Scale -) 1 vial SQ HS CORDELIA PRN Reason: Protocol Last Admin: 09/11/17 22:31 Dose: 8 units Insulin Aspart (Novolog Vial Sliding Scale -) 1 vial SQ TIDAC CORDELIA PRN Reason: Protocol Last Admin: 09/12/17 11:33 Dose: 6 units Insulin Detemir (Levemir Vial) 20 units SQ HS [facility] Last Admin: 09/11/17 22:30 Dose: 20 units Ipratropium [place] (Atrovent 0.02% Nebulizer -) 1 amp NEB QIDR [facility] Last Admin: 09/12/17 11:04 Dose: 1 amp Meclizine HCl (Antivert -) 25 mg PO Q6HPO PRN PRN Reason: VERTIGO Metoprolol Tartrate (Lopressor Injection -) 5 mg IVPUSH Q4H PRN PRN Reason: HYPERTENSION Last Admin: 09/12/17 08:30 Dose: 5 mg Ondansetron HCl (Zofran Injection) 4 mg IVPUSH Q6H PRN PRN Reason: NAUSEA Pantoprazole Sodium (Protonix Iv) 40 mg IVPUSH DAILY [facility] Last Admin: 09/12/17 09:19 Dose: 40 mg Prochlorperazine Edisylate (Compazine Injection -) 10 mg IVPB Q4H PRN PRN Reason: NAUSEA AND/OR VOMITING - Objective Vital Signs: Vital Signs Temperature 97.2 F L 09/12/17 02:00 Pulse Rate 95 H 09/12/17 10:00 Respiratory Rate 12 09/12/17 10:00 Blood Pressure 147/78 09/12/17 10:00 O2 Sat by Pulse Oximetry (%) 96 09/12/17 10:25 Constitutional: Yes: Moderate Distress Eyes: Yes: Other HENT: Yes: WNL Neck: Yes: WNL Cardiovascular: Yes: Pulse Irregular Respiratory: Yes: On Nasal O2, SOB Genitourinary: Yes: Mcdonald Present Musculoskeletal: Yes: Muscle Weakness Extremities: Yes: Other Edema: Yes Peripheral Pulses WNL: Yes Integumentary: Yes: Other Wound/Incision: Yes: Other Neurological: Yes: Aphasia, Confusion, Loss of Sensation, Weakness ...Motor Strength: LUE, LLE, RUE, RLE Psychiatric: Yes: Other Labs: CBC, BMP 09/12/17 06:10 09/12/17 06:10 INR, PTT INR 1.04 (0.82-1.09) 09/12/17 06:10 Problem List - Problems (1) Brain metastasis Code(s): C79.31 - SECONDARY MALIGNANT NEOPLASM OF BRAIN (2) Headache Code(s): R51 - HEADACHE Qualifiers: Headache chronicity pattern: unspecified pattern Intractability: intractable (3) Intractable vomiting with nausea Code(s): R11.2 - NAUSEA WITH VOMITING, UNSPECIFIED Qualifiers: Vomiting type: unspecified Qualified Code(s): R11.2 - Nausea with vomiting , unspecified (4) SUSAN (acute kidney injury) Code(s): N17.9 - ACUTE KIDNEY FAILURE, UNSPECIFIED (5) Cancer, colon Code(s): C18.9 - MALIGNANT NEOPLASM OF COLON, UNSPECIFIED Qualifiers: Colon location: unspecified part of colon Qualified Code(s): C18.9 - Malignant neoplasm of colon, unspecified (6) Lung mass Code(s): R91.8 - OTHER NONSPECIFIC ABNORMAL FINDING OF LUNG FIELD (7) CVA (cerebral vascular accident) Code(s): I63.9 - CEREBRAL INFARCTION, UNSPECIFIED Assessment/Plan STROKE PROTOCOL NEUROLOGY AND NEUROSURGERY EVALS APPRECIATED CTS F/U STATIN THERAPY AC PER NEURO HEPARIN IV O2 SUPPORT METASTATIC COLON/LUNG/BRAIN ONCOLOGY F/U POOR OVERALL PROGNOSIS TRANSFERRING TO NEURO ICU D/W DR FROST
--- NOTE | 2017-09-12 13:04 | PN ---
Progress Note, Physician - Current Medication List Current Medications: Active Medications Atorvastatin Calcium (Lipitor -) 20 mg PO HS [facility] Last Admin: 09/11/17 22:30 Dose: 20 mg Dexamethasone Sodium Phosphate (Decadron Injection -) 4 mg IVPB BID [facility] Last Admin: 09/12/17 09:18 Dose: 4 mg Epinephrine (S-2) 1 vial NEB Q6H PRN PRN Reason: stridor Last Admin: 09/12/17 09:40 Dose: 1 vial Gabapentin (Neurontin -) 300 mg PO BID [facility] Last Admin: 09/12/17 09:19 Dose: Not Given Heparin Sodium (Porcine) (Heparin -) 1,000 unit IVPUSH PRN PRN PRN Reason: Heparin Heparin Sodium (Porcine) (Heparin -) 5,000 unit IVPUSH PRN PRN PRN Reason: Heparin Hydralazine HCl (Apresoline Injection -) 10 mg IVPUSH Q6H PRN PRN Reason: HYPERTENSION Last Admin: 09/11/17 22:29 Dose: 10 mg Sodium Chloride (Normal Saline -) 1,000 mls @ 75 mls/hr IV ASDIR [facility] Last Admin: 09/11/17 14:30 Dose: 75 mls/hr Diltiazem HCl 125 mg/ Dextrose 125 mls @ 5 mls/hr IVPB TITR [facility]; 5 MG/HR PRN Reason: Protocol Last Admin: 09/11/17 14:00 Dose: 15 mg/hr, 15 mls/hr HEPARIN SOD,PORK IN 0.45% NACL (Heparin-1/2ns 25,000 Units/500) 25,000 unit in 500 mls @ 16 mls/hr IVPB TITR [facility]; 800 UNITS/HR PRN Reason: Protocol Last Titration: 09/12/17 01:00 Dose: 900 units/hr, 18 mls/hr Insulin Aspart (Novolog Vial Sliding Scale -) 1 vial SQ HS [facility] PRN Reason: Protocol Last Admin: 09/11/17 22:31 Dose: 8 units Insulin Aspart (Novolog Vial Sliding Scale -) 1 vial SQ TIDAC [facility] PRN Reason: Protocol Last Admin: 09/12/17 11:33 Dose: 6 units Insulin Detemir (Levemir Vial) 20 units SQ HS [facility] Last Admin: 09/11/17 22:30 Dose: 20 units Ipratropium [place] (Atrovent 0.02% Nebulizer -) 1 amp NEB QIDR [facility] Last Admin: 09/12/17 11:04 Dose: 1 amp Meclizine HCl (Antivert -) 25 mg PO Q6HPO PRN PRN Reason: VERTIGO Metoprolol Tartrate (Lopressor Injection -) 5 mg IVPUSH Q4H PRN PRN Reason: HYPERTENSION Last Admin: 09/12/17 08:30 Dose: 5 mg Ondansetron HCl (Zofran Injection) 4 mg IVPUSH Q6H PRN PRN Reason: NAUSEA Pantoprazole Sodium (Protonix Iv) 40 mg IVPUSH DAILY [facility] Last Admin: 09/12/17 09:19 Dose: 40 mg Prochlorperazine Edisylate (Compazine Injection -) 10 mg IVPB Q4H PRN PRN Reason: NAUSEA AND/OR VOMITING - Objective Vital Signs: Vital Signs Temperature 97.2 F L 09/12/17 02:00 Pulse Rate 95 H 09/12/17 10:00 Respiratory Rate 12 09/12/17 10:00 Blood Pressure 147/78 09/12/17 10:00 O2 Sat by Pulse Oximetry (%) 96 09/12/17 10:25 Labs: CBC, BMP 09/12/17 06:10 09/12/17 06:10 INR, PTT INR 1.04 (0.82-1.09) 09/12/17 06:10 Problem List - Problems (1) Brain metastasis Code(s): C79.31 - SECONDARY MALIGNANT NEOPLASM OF BRAIN (2) Headache Code(s): R51 - HEADACHE (3) Intractable vomiting with nausea Code(s): R11.2 - NAUSEA WITH VOMITING, UNSPECIFIED Qualifiers: Qualified Code(s): R11.2 - Nausea with vomiting, unspecified (4) SUSAN (acute kidney injury) Code(s): N17.9 - ACUTE KIDNEY FAILURE, UNSPECIFIED (5) Cancer, colon Code(s): C18.9 - MALIGNANT NEOPLASM OF COLON, UNSPECIFIED Qualifiers: Qualified Code(s): C18.9 - Malignant neoplasm of colon, unspecified (6) Lung mass Code(s): R91.8 - OTHER NONSPECIFIC ABNORMAL FINDING OF LUNG FIELD
[2017-09-12] MEDS ORDERED: FUROSEMIDE 40 MG/4 ML INJECTABLE VIAL IVPUSH ONE (14:15)
[2017-09-12] MEDS: DILTIAZEM INJECTION 125 MG in DEXTROSE 5%-WATER - 100 ML IVPB SCH (15:24)
[2017-09-12] MEDS: SODIUM CHLORIDE 1,000 ML IV SCH (15:25)
[2017-09-12] MEDS: ARTIFICIAL TEARS (POLYVINYL ALCOHOL 1.4%) OPTH DROPS OU PRN (15:26)
--- NOTE | 2017-09-12 15:42 | PN ---
Progress Note (short form) - Note Progress Note: Patient seen and examined answering questions Last Vital Signs Temp Pulse Resp BP Pulse Ox 98 F 102 H 19 156/67 96 09/12/17 17:00 09/12/17 19:00 09/12/17 19:00 09/12/17 19:00 09/12/17 10:25 Nystagmus++ Cor: RSR, No murmurs, No gallops Lungs: Clear to P&A Abd: Soft, Normal bowel sounds, No organomegaly Ext:No significant edema Neuro: agitated/anxious/moving all extremities/following commands Abnormal Lab Results 09/12/17 09/12/17 09/12/17 00:05 06:10 06:10 WBC 17.3 H D RBC 3.36 L Hgb 8.6 L Hct 27.1 L MCH 25.6 L MCHC 31.7 L RDW 16.8 H MPV 7.0 L D Neutrophils % Lymphocytes % PTT (Actin FS) 49.7 H D ABG pO2 at Pt Temp ABG HCO3 ABG O2 Content ABG Base Excess Sodium 146 H Chloride 115 H Carbon Dioxide 19 L Anion Gap BUN 41 H Creatinine 1.7 H D Random Glucose 223 H D Alkaline Phosphatase 134 H Total Protein 6.2 L Albumin 2.9 L 09/12/17 09/12/17 09/12/17 06:10 15:40 15:40 WBC 17.3 H RBC 3.38 L Hgb 8.6 L Hct 27.4 L MCH 25.6 L MCHC 31.6 L RDW 16.6 H MPV 6.6 L Neutrophils % 92.5 H Lymphocytes % 1.8 L D PTT (Actin FS) 69.7 H D ABG pO2 at Pt Temp ABG HCO3 ABG O2 Content ABG Base Excess Sodium Chloride 115 H Carbon Dioxide Anion Gap 6 L BUN 43 H Creatinine 1.7 H Random Glucose 263 H Alkaline Phosphatase Total Protein Albumin 09/12/17 16:50 WBC RBC Hgb Hct MCH MCHC RDW MPV Neutrophils % Lymphocytes % PTT (Actin FS) ABG pO2 at Pt Temp 114.0 H D ABG HCO3 19.9 L ABG O2 Content 12.3 L ABG Base Excess -4.5 L Sodium Chloride Carbon Dioxide Anion Gap BUN Creatinine Random Glucose Alkaline Phosphatase Total Protein Albumin Active Medications Generic Name Dose Route Start Last Admin Trade Name Freq PRN Reason Stop Dose Admin Artificial Tears 1 drop 09/12/17 13:31 09/12/17 15:26 Artificial Tears OU 1 drop TID PRN Administration Eye Irritation Atorvastatin Calcium 20 mg 09/11/17 22:00 09/12/17 21:51 Lipitor - PO 20 mg HS [facility] Administration Dexamethasone Sodium Phosphate 4 mg 09/11/17 22:00 09/12/17 21:41 Decadron Injection - IVPB 4 mg BID [facility] Administration Epinephrine 1 vial 09/11/17 10:21 09/12/17 09:40 S-2 NEB 1 vial Q6H PRN Administration stridor Heparin Sodium (Porcine) 1,000 unit 09/12/17 19:46 Heparin - IVPUSH PRN PRN Heparin Heparin Sodium (Porcine) 5,000 unit 09/12/17 19:46 Heparin - IVPUSH PRN PRN Heparin Hydralazine HCl 10 mg 09/11/17 10:25 09/12/17 21:41 Apresoline Injection - IVPUSH 10 mg Q6H PRN Administration HYPERTENSION Sodium Chloride 1,000 mls @ 75 mls/hr 09/11/17 14:30 09/12/17 15:25 Normal Saline - IV 75 mls/hr ASDIR [facility] Administration Diltiazem HCl 125 mg/ Dextrose 125 mls @ 5 mls/hr 09/11/17 14:27 09/12/17 15: 24 IVPB 15 mg/hr TITR [facility] 15 mls/hr Protocol Administration 5 MG/HR HEPARIN SOD,PORK IN 0.45% NACL 25,000 units in 500 mls @ 20 mls/hr 09/12/17 20 :00 09/12/17 21:41 Heparin-1/2ns 25,000 Units/500 IVPB 1,000 units/hr TITR [facility] 20 mls/hr Protocol Administration 1,000 UNITS/HR Insulin Aspart 1 vial 09/11/17 22:00 09/12/17 21:49 Novolog Vial Sliding Scale - SQ 2 units HS [facility] Administration Protocol Insulin Aspart 1 vial 09/11/17 07:00 09/12/17 16:29 Novolog Vial Sliding Scale - SQ 4 units TIDAC [facility] Administration Protocol Insulin Detemir 20 units 09/11/17 12:15 09/12/17 21:56 Levemir Vial SQ 20 units HS [facility] Administration Ipratropium [place] 1 amp 09/11/17 06:00 09/12/17 17:15 Atrovent 0.02% Nebulizer - NEB 1 amp QIDR [facility] Administration Metoprolol Tartrate 5 mg 09/11/17 10:25 09/12/17 08:30 Lopressor Injection - IVPUSH 5 mg Q4H PRN Administration HYPERTENSION Ondansetron HCl 4 mg 09/11/17 02:02 Zofran Injection IVPUSH Q6H PRN NAUSEA Pantoprazole Sodium 40 mg 09/11/17 10:00 09/12/17 09:19 Protonix Iv IVPUSH 40 mg DAILY [facility] Administration A/P 62 yo woman with h/o HTN, Chol, DM, ASHD, AFib and moderate renal insufficiency is s/p colectomy 2011 for colonic CA now metastatic to the lungs Recently had portal placed for chemo Rx with attempted infusion Friday AM. Soon thereafter, patient developed headache, nausea, vomiting and unsteadiness. CT of head suggested ischemic changes in the posterior fossa (left cerebellum > right) and the parietal region. MRI confirmed extensive changes including B/L cerebellar infarcts (L>>R); a left lateral medullary (brainstem) infarct, and multiple, scattered hemispheric infarcts. new lt. occipital lobe infarct on heparin drip on decadron 4mg q12h discussed with dr. murray/icu team
[2017-09-12 16:05] LABS: BASO % 0.1 % (0-2.0); HEMATOCRIT 27.4 % (32.4-45.2); HEMOGLOBIN 8.6 GM/dL (10.7-15.3); LYMPH % 1.8 % (8-40); MCH 25.6 pg (25.7-33.7); MCHC 31.6 g/dl (32.0-36.0); MEAN CELL VOLUME 80.9 fl (80-96); MEAN PLT VOLUME 6.6 fl (7.5-11.1); MONO % 5.6 % (3.8-10.2); NEUT % 92.5 % (42.8-82.8); PLATELET COUNT 388 K/MM3 (134-434); RBC 3.38 M/mm3 (3.60-5.2); RDW 16.6 % (11.6-15.6); WHITE BLOOD COUNT 17.3 K/mm3 (4.0-10.0)
[2017-09-12 16:24] LABS: ANION GAP 6 (8-16); BLOOD UREA NITROGEN 43 mg/dL (7-18); CALCIUM 8.7 mg/dL (8.5-10.1); CHLORIDE 115 mmol/L (98-107); CO2 24 mmol/L (21-32); CREATININE 1.7 mg/dL (0.55-1.02); GLUCOSE,RANDOM 263 mg/dL (74-106); POTASSIUM 4.3 mmol/L (3.5-5.1); SODIUM 145 mmol/L (136-145)
[2017-09-12 17:07] LABS: ARTERIAL BLD GAS O2 SATURATION 98.3 % (90-98.9); ARTERIAL BLOOD GAS BASE EXCESS -4.5 meq/l (-2-2); ARTERIAL BLOOD GAS pH 7.36 (7.35-7.45)
[2017-09-12 17:09] LABS: ALLENS TEST POSITIVE
--- NOTE | 2017-09-12 17:24 | PN ---
Progress Note, Physician Chief Complaint: S/p surgery for chemo port and repair of R carotid artery Brain MRI with metastatic disease and acute infarcts History of Present Illness: 62 year old with a pmhx of htn, afib on apixaban, hld, dm, ckd, gerd, and colon CA s/p colectomy 2011 with mets to lung sent as was scheduled to receive chemo but port not working and patient c/o nausea and vomiting. +headache. Concern for lesion on head ct. This is a 62 year old female with a past medical history significant for colon CA with mets to lung currently on chemo, unable to receive chemo today due to port difficulties who presented to the ED with nausea and vomiting today and last night. She also had a headache earlier. She did not take any of her BP medication yesterday. - Current Medication List Current Medications: Active Medications Artificial Tears (Artificial Tears) 1 drop OU TID PRN PRN Reason: Eye Irritation Last Admin: 09/12/17 15:26 Dose: 1 drop Atorvastatin Calcium (Lipitor -) 20 mg PO HS [facility] Last Admin: 09/11/17 22:30 Dose: 20 mg Dexamethasone Sodium Phosphate (Decadron Injection -) 4 mg IVPB BID [facility] Last Admin: 09/12/17 09:18 Dose: 4 mg Epinephrine (S-2) 1 vial NEB Q6H PRN PRN Reason: stridor Last Admin: 09/12/17 09:40 Dose: 1 vial Gabapentin (Neurontin -) 300 mg PO BID [facility] Last Admin: 09/12/17 09:19 Dose: Not Given Hydralazine HCl (Apresoline Injection -) 10 mg IVPUSH Q6H PRN PRN Reason: HYPERTENSION Last Admin: 09/11/17 22:29 Dose: 10 mg Sodium Chloride (Normal Saline -) 1,000 mls @ 75 mls/hr IV ASDIR [facility] Last Admin: 09/12/17 15:25 Dose: 75 mls/hr Diltiazem HCl 125 mg/ Dextrose 125 mls @ 5 mls/hr IVPB TITR [facility]; 5 MG/HR PRN Reason: Protocol Last Admin: 09/12/17 15:24 Dose: 15 mg/hr, 15 mls/hr Insulin Aspart (Novolog Vial Sliding Scale -) 1 vial SQ HS [facility] PRN Reason: Protocol Last Admin: 09/11/17 22:31 Dose: 8 units Insulin Aspart (Novolog Vial Sliding Scale -) 1 vial SQ TIDAC [facility] PRN Reason: Protocol Last Admin: 09/12/17 16:29 Dose: 4 units Insulin Detemir (Levemir Vial) 20 units SQ HS [facility] Last Admin: 09/11/17 22:30 Dose: 20 units Ipratropium [place] (Atrovent 0.02% Nebulizer -) 1 amp NEB QIDR [facility] Last Admin: 09/12/17 11:04 Dose: 1 amp Meclizine HCl (Antivert -) 25 mg PO Q6HPO PRN PRN Reason: VERTIGO Metoprolol Tartrate (Lopressor Injection -) 5 mg IVPUSH Q4H PRN PRN Reason: HYPERTENSION Last Admin: 09/12/17 08:30 Dose: 5 mg Ondansetron HCl (Zofran Injection) 4 mg IVPUSH Q6H PRN PRN Reason: NAUSEA Pantoprazole Sodium (Protonix Iv) 40 mg IVPUSH DAILY [facility] Last Admin: 09/12/17 09:19 Dose: 40 mg Prochlorperazine Edisylate (Compazine Injection -) 10 mg IVPB Q4H PRN PRN Reason: NAUSEA AND/OR VOMITING - Objective Vital Signs: Vital Signs Temperature 97.2 F L 09/12/17 02:00 Pulse Rate 102 H 09/12/17 15:24 Respiratory Rate 12 09/12/17 10:00 Blood Pressure 175/91 09/12/17 15:24 O2 Sat by Pulse Oximetry (%) 96 09/12/17 10:25 Neck: Yes: Supple, Other (R carotid surgical site) Cardiovascular: Yes: Regular Rate and Rhythm, S1, S2 Respiratory: Yes: Rales Gastrointestinal: Yes: Soft Edema: No Labs: CBC, BMP 09/12/17 15:40 09/12/17 15:40 INR, PTT INR 1.04 (0.82-1.09) 09/12/17 06:10 Problem List - Problems (1) Atrial fibrillation Code(s): I48.91 - UNSPECIFIED ATRIAL FIBRILLATION (2) HTN (hypertension) Code(s): I10 - ESSENTIAL (PRIMARY) HYPERTENSION Assessment/Plan 62 year old with a pmhx of htn, afib on apixaban, hld, dm, ckd, gerd, and colon CA s/p colectomy 2011 with mets to lung sent as was scheduled to receive chemo but port not working and patient c/o nausea and vomiting. +headache. Concern for lesion on head ct. This is a 62 year old female with a past medical history significant for colon CA with mets to lung currently on chemo, unable to receive chemo today due to port difficulties who presented to the ED with nausea and vomiting today and last night. She also had a headache earlier. She did not take any of her BP medication yesterday. Now s/p R carotid artery repair MRI brain with metastatic disease and with acute infarcts 1) Cardiac/Afib -On diltiazem drip -On heparin drip as per neurology 2) HTN will continue diltiazem IV drip ICU monitoring 3) Oncology -management as per primary team On decadron
--- NOTE | 2017-09-12 18:01 | CONSULT ---
Consult - text type - Consultation Consultation Note: NEUROLOGY FOLLOW-UP: Events reviewed and discussed with Lucy Aggarwal last night and Lucy Medina and Timothy today. Repeat CT reviewed, patient examined. Events discussed with her son, daughter and extended family. Since the predominant GARBAGE PERSON manifestation is strokes not mets, Dr. Heredia and I decided to reduce the decadron to 4 mg q12hrs in light of recent DKA. Drs. Medina and Timothy found the patient to be awake, alert and generally "better" this AM. Around midday she was felt to be more lethargic and HO stopped heparin and ordered repeat CT of head. CT (reviewed) shows the well-defined cerebellar infarct, brainstem infarct and multiple hemispheric infarcts and probably, multiple small mets with edema. A well-defined left occipital infarct is greater than 12-24 hrs old. Some sulcal effacement is still present but no significant mass effect is seen. EXAM: Pt is awake, alert and Ox3. Dysarthric speech. Left subconjunctival hemorrhage with possible left ptosis. Right pupil 6 mm reactive. Left 3mm reactive. Possible right field deficit (Pt. preferentially saccades into the Right visual field on confrontational ramirez). Full EOM's with nystagmus. Swallows sips H2O Right side moves well. Left hemidystaxia. IMP: Multiple CVA's. CT manifestation of left occipital has developed since the last round of neuroimaging but this stroke did NOT occur this afternoon. SUGGEST: Additional stroke points out the critical need for anticoagulation in this patient for AFib. Resume heparin with 1/2 bolus to therapeutic PTT. Cardiology revisit and echocardiogram. No indication for neurosurgical intervention. Repeat CT of head (C-/C+) in AM to evaluate for mets and exclude hydrocephalus due to cerebellar CVA and compression of [place]. Continue decadron 4 mg q12 hrs for now. Consider transfer to Neurological ICU.) Thank you very much, Daniel Pulido MD
--- NOTE | 2017-09-12 18:06 | PN ---
Progress Note, Physician History of Present Illness: Pt seen and examined at bedside. She answers questions but her mental status is not at baseline. - Current Medication List Current Medications: Active Medications Artificial Tears (Artificial Tears) 1 drop OU TID PRN PRN Reason: Eye Irritation Last Admin: 09/12/17 15:26 Dose: 1 drop Atorvastatin Calcium (Lipitor -) 20 mg PO HS [facility] Last Admin: 09/11/17 22:30 Dose: 20 mg Dexamethasone Sodium Phosphate (Decadron Injection -) 4 mg IVPB BID [facility] Last Admin: 09/12/17 09:18 Dose: 4 mg Epinephrine (S-2) 1 vial NEB Q6H PRN PRN Reason: stridor Last Admin: 09/12/17 09:40 Dose: 1 vial Hydralazine HCl (Apresoline Injection -) 10 mg IVPUSH Q6H PRN PRN Reason: HYPERTENSION Last Admin: 09/11/17 22:29 Dose: 10 mg Sodium Chloride (Normal Saline -) 1,000 mls @ 75 mls/hr IV ASDIR [facility] Last Admin: 09/12/17 15:25 Dose: 75 mls/hr Diltiazem HCl 125 mg/ Dextrose 125 mls @ 5 mls/hr IVPB TITR [facility]; 5 MG/HR PRN Reason: Protocol Last Admin: 09/12/17 15:24 Dose: 15 mg/hr, 15 mls/hr Insulin Aspart (Novolog Vial Sliding Scale -) 1 vial SQ HS [facility] PRN Reason: Protocol Last Admin: 09/11/17 22:31 Dose: 8 units Insulin Aspart (Novolog Vial Sliding Scale -) 1 vial SQ TIDAC [facility] PRN Reason: Protocol Last Admin: 09/12/17 16:29 Dose: 4 units Insulin Detemir (Levemir Vial) 20 units SQ HS [facility] Last Admin: 09/11/17 22:30 Dose: 20 units Ipratropium [place] (Atrovent 0.02% Nebulizer -) 1 amp NEB QIDR [facility] Last Admin: 09/12/17 17:15 Dose: 1 amp Metoprolol Tartrate (Lopressor Injection -) 5 mg IVPUSH Q4H PRN PRN Reason: HYPERTENSION Last Admin: 09/12/17 08:30 Dose: 5 mg Ondansetron HCl (Zofran Injection) 4 mg IVPUSH Q6H PRN PRN Reason: NAUSEA Pantoprazole Sodium (Protonix Iv) 40 mg IVPUSH DAILY [facility] Last Admin: 09/12/17 09:19 Dose: 40 mg - Objective Vital Signs: Vital Signs Temperature 97.2 F L 09/12/17 02:00 Pulse Rate 102 H 09/12/17 15:24 Respiratory Rate 12 09/12/17 10:00 Blood Pressure 175/91 09/12/17 15:24 O2 Sat by Pulse Oximetry (%) 96 09/12/17 10:25 Constitutional: Yes: Calm Eyes: Yes: Conjunctiva Clear HENT: Yes: Atraumatic Cardiovascular: Yes: S1, S2 Respiratory: Yes: On Nasal O2 Gastrointestinal: Yes: Soft Genitourinary: Yes: Mcdonald Present Musculoskeletal: Yes: Muscle Weakness Edema: No Wound/Incision: Yes: Open to air Labs: CBC, BMP 09/12/17 15:40 09/12/17 15:40 INR, PTT INR 1.04 (0.82-1.09) 09/12/17 06:10 - ....Imaging Cat Scan: Report Reviewed Problem List - Problems (1) Brain metastasis Code(s): C79.31 - SECONDARY MALIGNANT NEOPLASM OF BRAIN (2) Headache Code(s): R51 - HEADACHE Qualifiers: Headache chronicity pattern: unspecified pattern Intractability: intractable (3) Metastatic colorectal cancer Code(s): C78.5 - SECONDARY MALIGNANT NEOPLASM OF LARGE INTESTINE AND RECTUM (4) SUSAN (acute kidney injury) Code(s): N17.9 - ACUTE KIDNEY FAILURE, UNSPECIFIED (5) Atrial fibrillation Code(s): I48.91 - UNSPECIFIED ATRIAL FIBRILLATION (6) Cancer, colon Code(s): C18.9 - MALIGNANT NEOPLASM OF COLON, UNSPECIFIED Qualifiers: Colon location: unspecified part of colon Qualified Code(s): C18.9 - Malignant neoplasm of colon, unspecified (7) Lung mass Code(s): R91.8 - OTHER NONSPECIFIC ABNORMAL FINDING OF LUNG FIELD Assessment/Plan Current Medications Generic Name Dose Route Start Last Admin Trade Name Freq PRN Reason Stop Dose Admin Artificial Tears 1 drop 09/12/17 13:31 09/12/17 15:26 Artificial Tears OU 1 drop TID PRN Administration Eye Irritation Atorvastatin Calcium 20 mg 09/11/17 22:00 09/11/17 22:30 Lipitor - PO 20 mg HS [facility] Administration Dexamethasone Sodium Phosphate 4 mg 09/11/17 22:00 09/12/17 09:18 Decadron Injection - IVPB 4 mg BID [facility] Administration Epinephrine 1 vial 09/11/17 10:21 09/12/17 09:40 S-2 NEB 1 vial Q6H PRN Administration stridor Hydralazine HCl 10 mg 09/11/17 10:25 09/11/17 22:29 Apresoline Injection - IVPUSH 10 mg Q6H PRN Administration HYPERTENSION Sodium Chloride 1,000 mls @ 75 mls/hr 09/11/17 14:30 09/12/17 15:25 Normal Saline - IV 75 mls/hr ASDIR [facility] Administration Diltiazem HCl 125 mg/ Dextrose 125 mls @ 5 mls/hr 09/11/17 14:27 09/12/17 15: 24 IVPB 15 mg/hr TITR [facility] 15 mls/hr Protocol Administration 5 MG/HR Insulin Aspart 1 vial 09/11/17 22:00 09/11/17 22:31 Novolog Vial Sliding Scale - SQ 8 units HS [facility] Administration Protocol Insulin Aspart 1 vial 09/11/17 07:00 09/12/17 16:29 Novolog Vial Sliding Scale - SQ 4 units TIDAC [facility] Administration Protocol Insulin Detemir 20 units 09/11/17 12:15 09/11/17 22:30 Levemir Vial SQ 20 units HS [facility] Administration Ipratropium [place] 1 amp 09/11/17 06:00 09/12/17 17:15 Atrovent 0.02% Nebulizer - NEB 1 amp QIDR [facility] Administration Metoprolol Tartrate 5 mg 09/11/17 10:25 09/12/17 08:30 Lopressor Injection - IVPUSH 5 mg Q4H PRN Administration HYPERTENSION Ondansetron HCl 4 mg 09/11/17 02:02 Zofran Injection IVPUSH Q6H PRN NAUSEA Pantoprazole Sodium 40 mg 09/11/17 10:00 09/12/17 09:19 Protonix Iv IVPUSH 40 mg DAILY [facility] Administration Impression 1. CKD 2. SUSAN 3. DM 4. htn 5. chol 6. chemo port malfunction 7. a-fib 8. lung mass 9. proteinuria 10. adenocarcinoma 11. CVA Plan - renal function is improved - likely susan from pre-renal disease - neuro input appreciated - consider switching fluids to 1/2 ns - monitor blood pressure - renal ultrasound reviewed - repeat labs in am - will follow Dr Llanos
[2017-09-12 20:25] LABS: INR 0.99 (0.82-1.09); PROTHROMBIN TIME (PATIENT) 11.2 SEC (9.98-11.88)
[2017-09-12] MEDS: hydrALAZINE HCL 20 MG/ML VIAL IVPUSH PRN (21:41)
[2017-09-12] MEDS: HEPARIN SOD,PORK IN 0.45% NACL 25,000 UNITS/500 ML INFUS.BAG IVPB SCH (21:41)
[2017-09-12] MEDS: ATORVASTATIN CA 20 MG TABLET (FP) PO SCH (21:51)
[2017-09-12] MEDS: INSULIN DETEMIR 100 UNITS/ML MDV SQ SCH (21:56)
--- NOTE | 2017-09-13 01:00 | CONSULT ---
Consult Consult Specialty:: endocrine Referred by:: dr.ammir dawson Reason for Consultation:: diabetes mellitus - History of Present Illness Chief Complaint: weakness confused History of Present Illness: 62 year old female with pmhx of HTN, chol, DM, Lung cancer, colon cancer and hyperkalemia who presents to the ER for nausea and vomiting. She went for chemo and the port was not working. She subsequently felt nausea and vomiting. Pt has had neurological deficits,and cva symptoms with mri evidence of brain,mets requiring icu monitoring,npo on iv fluids off insulin pump device - History Source History Provided By: Patient, Family Member - Past Medical History Cardio/Vascular: Yes: AFIB, HTN, Hyperlipdemia Gastrointestinal: Yes: Cancer (COLON), GERD Psych: Yes: Anxiety Endocrine: Yes: Diabetes Mellitus (ON INSULIN PUMP) - Past Surgical History Past Surgical History: Yes: Colectomy (2 YRS AGO COLON CA), Hernia Repair ( icisional) - Alcohol/Substance Use Hx Alcohol Use: No - Smoking History Smoking history: Former smoker Have you smoked in the past 12 months: Yes Aproximately how many cigarettes per day: 0 - Social History Usual Living Arrangement: With Spouse ADL: Independent History of Recent Travel: No Home Medications - Allergies Allergies/Adverse Reactions: Allergies Allergy/AdvReac Type Severity Reaction Status Date / Time No Known Drug Allergies Allergy Verified 09/09/17 23:57 Medical Tape Allergy Uncoded 09/09/17 23:56 - Home Medications Home Medications: Ambulatory Orders Atorvastatin Ca [Lipitor] 20 mg PO HS #0 tablet 01/14/14 Insulin Pump Controller [Snap Insulin Pump Controller] 0 units SQ ASDIR Gabapentin 300 mg PO BID #60 capsule 08/23/14 Apixaban [Eliquis -] 5 mg PO BID #60 tablet 06/24/17 Diltiazem Cd [Cardizem Cd -] 120 mg PO DAILY #30 cap.cd.24h 06/24/17 Ramipril [Altace] 5 mg PO DAILY #30 tab 06/24/17 Metoprolol Succinate 50 mg PO DAILY 08/14/17 Oxycodone HCl/Acetaminophen [Percocet 5/325 -] 1 - 2 tab PO Q4H PRN #20 tablet MDD 6 08/18/17 Review of Systems - Review of Systems Constitutional: reports: Lethargy, Weakness Physical Exam Vital Signs: Vital Signs Temperature 98 F 09/12/17 17:00 Pulse Rate 99 H 09/13/17 00:00 Respiratory Rate 27 H 09/13/17 00:00 Blood Pressure 153/99 09/13/17 00:00 O2 Sat by Pulse Oximetry (%) 100 09/12/17 21:00 Constitutional: Yes: Calm Eyes: Yes: EOM Intact, Ptosis HENT: Yes: Normocephalic Neck: Yes: Trachea Midline Cardiovascular: Yes: Regular Rate and Rhythm Respiratory: Yes: CTA Bilaterally Gastrointestinal: Yes: Normal Bowel Sounds ...Rectal Exam: Yes: Deferred Renal/: Yes: WNL Breast(s): Yes: WNL Musculoskeletal: Yes: WNL Extremities: Yes: WNL Neurological: Yes: Alert, Lethargy Labs: CBC, BMP 09/12/17 15:40 09/12/17 15:40 Problem List - Problems (1) 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 Code(s): E10.3211 - TYPE 1 DIAB WITH MILD NONP RTNOP WITH MACULAR EDEMA, R EYE (2) Brain metastasis Code(s): C79.31 - SECONDARY MALIGNANT NEOPLASM OF BRAIN (3) CVA (cerebral vascular accident) Code(s): I63.9 - CEREBRAL INFARCTION, UNSPECIFIED (4) Headache Code(s): R51 - HEADACHE Qualifiers: Headache chronicity pattern: unspecified pattern Intractability: intractable (5) Hypercapnia Code(s): R06.89 - OTHER ABNORMALITIES OF BREATHING (6) Metastatic colorectal cancer Code(s): C78.5 - SECONDARY MALIGNANT NEOPLASM OF LARGE INTESTINE AND RECTUM (7) SUSAN (acute kidney injury) Code(s): N17.9 - ACUTE KIDNEY FAILURE, UNSPECIFIED Assessment/Plan Current Active Problems Brain metastasis (Acute) CVA (cerebral vascular accident) (Acute) Headache (Acute) Hypercapnia (Acute) Intractable vomiting with nausea (Acute) Metastatic colorectal cancer (Acute) diabetes mellitus insulin requiring Abnormal Lab Results 09/12/17 09/12/17 09/12/17 00:05 06:10 06:10 WBC 17.3 H D RBC 3.36 L Hgb 8.6 L Hct 27.1 L MCH 25.6 L MCHC 31.7 L RDW 16.8 H MPV 7.0 L D Neutrophils % Lymphocytes % PTT (Actin FS) 49.7 H D ABG pO2 at Pt Temp ABG HCO3 ABG O2 Content ABG Base Excess Sodium 146 H Chloride 115 H Carbon Dioxide 19 L Anion Gap BUN 41 H Creatinine 1.7 H D Random Glucose 223 H D Alkaline Phosphatase 134 H Total Protein 6.2 L Albumin 2.9 L 09/12/17 09/12/17 09/12/17 06:10 15:40 15:40 WBC 17.3 H RBC 3.38 L Hgb 8.6 L Hct 27.4 L MCH 25.6 L MCHC 31.6 L RDW 16.6 H MPV 6.6 L Neutrophils % 92.5 H Lymphocytes % 1.8 L D PTT (Actin FS) 69.7 H D ABG pO2 at Pt Temp ABG HCO3 ABG O2 Content ABG Base Excess Sodium Chloride 115 H Carbon Dioxide Anion Gap 6 L BUN 43 H Creatinine 1.7 H Random Glucose 263 H Alkaline Phosphatase Total Protein Albumin 09/12/17 16:50 WBC RBC Hgb Hct MCH MCHC RDW MPV Neutrophils % Lymphocytes % PTT (Actin FS) ABG pO2 at Pt Temp 114.0 H D ABG HCO3 19.9 L ABG O2 Content 12.3 L ABG Base Excess -4.5 L Sodium Chloride Carbon Dioxide Anion Gap BUN Creatinine Random Glucose Alkaline Phosphatase Total Protein Albumin Laboratory Results - last 24 hr 09/12/17 09/12/17 09/12/17 00:05 05:34 06:10 WBC 17.3 H D RBC 3.36 L Hgb 8.6 L Hct 27.1 L MCV 80.7 MCH 25.6 L MCHC 31.7 L RDW 16.8 H Plt Count 424 MPV 7.0 L D Neutrophils % Lymphocytes % Monocytes % Eosinophils % Basophils % PT with INR INR PTT (Actin FS) 49.7 H D Puncture Site ABG pH ABG pCO2 at Pt Temp ABG pO2 at Pt Temp ABG HCO3 ABG O2 Sat (Measured) ABG O2 Content ABG Base Excess Addy Test O2 Delivery Device Oxygen Flow Rate Sodium Potassium Chloride Carbon Dioxide Anion Gap BUN Creatinine Creat Clearance w eGFR POC Glucometer 251.63023 Random Glucose Calcium Phosphorus Magnesium Total Bilirubin AST ALT Alkaline Phosphatase Total Protein Albumin 09/12/17 09/12/17 09/12/17 06:10 06:10 11:11 WBC RBC Hgb Hct MCV MCH MCHC RDW Plt Count MPV Neutrophils % Lymphocytes % Monocytes % Eosinophils % Basophils % PT with INR 11.70 INR 1.04 PTT (Actin FS) 69.7 H D Puncture Site ABG pH ABG pCO2 at Pt Temp ABG pO2 at Pt Temp ABG HCO3 ABG O2 Sat (Measured) ABG O2 Content ABG Base Excess Addy Test O2 Delivery Device Oxygen Flow Rate Sodium 146 H Potassium 4.2 Chloride 115 H Carbon Dioxide 19 L Anion Gap 12 BUN 41 H Creatinine 1.7 H D Creat Clearance w eGFR 30.66 POC Glucometer 317.32374 Random Glucose 223 H D Calcium 8.7 Phosphorus 3.3 D Magnesium 2.4 Total Bilirubin 0.2 AST 23 D ALT 12 Alkaline Phosphatase 134 H Total Protein 6.2 L Albumin 2.9 L 09/12/17 09/12/17 09/12/17 15:29 15:40 15:40 WBC RBC Hgb Hct MCV MCH MCHC RDW Plt Count MPV Neutrophils % Lymphocytes % Monocytes % Eosinophils % Basophils % PT with INR 11.20 INR 0.99 PTT (Actin FS) 34.0 D Puncture Site ABG pH ABG pCO2 at Pt Temp ABG pO2 at Pt Temp ABG HCO3 ABG O2 Sat (Measured) ABG O2 Content ABG Base Excess Addy Test O2 Delivery Device Oxygen Flow Rate Sodium Potassium Chloride Carbon Dioxide Anion Gap BUN Creatinine Creat Clearance w eGFR POC Glucometer 283.33316 Random Glucose Calcium Phosphorus Magnesium Total Bilirubin AST ALT Alkaline Phosphatase Total Protein Albumin 09/12/17 09/12/17 09/12/17 15:40 15:40 16:50 WBC 17.3 H RBC 3.38 L Hgb 8.6 L Hct 27.4 L MCV 80.9 MCH 25.6 L MCHC 31.6 L RDW 16.6 H Plt Count 388 MPV 6.6 L Neutrophils % 92.5 H Lymphocytes % 1.8 L D Monocytes % 5.6 D Eosinophils % 0.0 Basophils % 0.1 PT with INR INR PTT (Actin FS) Puncture Site Right radial ABG pH 7.36 ABG pCO2 at Pt Temp 36.0 ABG pO2 at Pt Temp 114.0 H D ABG HCO3 19.9 L ABG O2 Sat (Measured) 98.3 ABG O2 Content 12.3 L ABG Base Excess -4.5 L Addy Test Positive O2 Delivery Device Nasal Oxygen Flow Rate 4 lpm Sodium 145 Potassium 4.3 Chloride 115 H Carbon Dioxide 24 D Anion Gap 6 L BUN 43 H Creatinine 1.7 H Creat Clearance w eGFR POC Glucometer Random Glucose 263 H Calcium 8.7 Phosphorus Magnesium Total Bilirubin AST ALT Alkaline Phosphatase Total Protein Albumin 09/12/17 21:45 WBC RBC Hgb Hct MCV MCH MCHC RDW Plt Count MPV Neutrophils % Lymphocytes % Monocytes % Eosinophils % Basophils % PT with INR INR PTT (Actin FS) Puncture Site ABG pH ABG pCO2 at Pt Temp ABG pO2 at Pt Temp ABG HCO3 ABG O2 Sat (Measured) ABG O2 Content ABG Base Excess Addy Test O2 Delivery Device Oxygen Flow Rate Sodium Potassium Chloride Carbon Dioxide Anion Gap BUN Creatinine Creat Clearance w eGFR POC Glucometer 225.36155 Random Glucose Calcium Phosphorus Magnesium Total Bilirubin AST ALT Alkaline Phosphatase Total Protein Albumin plan: icu monitoring bgm q6hrs while in icu coverage as needed LEVEMIR 20 UNITS AM IF SUGAR OVER 15OM /DL
[2017-09-13] MEDS: IPRATROPIUM BR 0.02% 0.5 MG/2.5 ML VIAL.NEB. NEB SCH ×3 (06:49→17:30)
[2017-09-13 06:53] LABS: HEMATOCRIT 26.5 % (32.4-45.2); HEMOGLOBIN 8.5 GM/dL (10.7-15.3); MCH 26.1 pg (25.7-33.7); MCHC 32.2 g/dl (32.0-36.0); MEAN CELL VOLUME 81.1 fl (80-96); MEAN PLT VOLUME 7.5 fl (7.5-11.1); PLATELET COUNT 395 K/MM3 (134-434); RBC 3.27 M/mm3 (3.60-5.2); RDW 17.2 % (11.6-15.6); WHITE BLOOD COUNT 13.5 K/mm3 (4.0-10.0)
[2017-09-13 07:19] LABS: INR 1.06 (0.82-1.09)
[2017-09-13] MEDS: INSULIN SLIDING SCALE (NOVOLOG) 1 VIAL SQ SCH ×4 (07:20→21:33)
[2017-09-13 07:42] LABS: ALBUMIN 2.9 g/dl (3.4-5.0); ANION GAP 9 (8-16); BILIRUBIN,TOTAL 0.3 mg/dL (0.2-1.0); BLOOD UREA NITROGEN 43 mg/dL (7-18); CALCIUM 8.3 mg/dL (8.5-10.1); CHLORIDE 117 mmol/L (98-107); CHOLESTEROL 190 mg/dL (50-200); CO2 21 mmol/L (21-32); CREATININE 1.7 mg/dL (0.55-1.02); GLUCOSE,RANDOM 225 mg/dL (74-106); HDL CHOLESTEROL 88 mg/dL (40-60); LDL CHOLESTEROL (ONLY SJRH) 86 mg/dL (5-100); MAGNESIUM 2.6 mg/dL (1.8-2.4); PHOSPHOROUS 3.2 mg/dL (2.5-4.9); POTASSIUM 4.5 mmol/L (3.5-5.1); SGOT/AST 25 U/L (15-37); SGPT/ALT 16 U/L (12-78); SODIUM 147 mmol/L (136-145); TOT PROT 6.1 g/dl (6.4-8.2); TRIGLYCERIDES 76 mg/dL (35-160)
[2017-09-13 07:43] LABS: ALK PHOS 127 U/L (45-117)
--- NOTE | 2017-09-13 07:52 | PN ---
Progress Note (short form) - Note Progress Note: Pulm/CCM SUBJECTIVE: Patient seen and examined in the ICU. events noted, Neuro input noted mental status waxes and wanes, agitated overnight (Tore apart pulse ox) inspitory stridor remains but resolves when sleeping, no paradox breathing, no distress Vital Signs Temp 97.8 F 09/13/17 02:05 Pulse 147 H 09/13/17 07:00 Resp 21 09/13/17 07:00 BP 164/96 09/13/17 07:00 Pulse Ox 100 09/12/17 21:00 Intake & Output 09/12/17 09/12/17 09/13/17 11:59 23:59 11:59 Intake Total 1177 1140 1319 Output Total 1000 1999 1100 Balance 177 -860 219 Weight 84.4 kg 83.659 kg Intake: IV 1177 1140 1319 Cardizem Injection - 125 166 163 185 mg In D5w - 100 ml @ 5 MG /HR 5 mls/hr IVPB TITR [facility] Rx#:[id number] HEPARIN-1/2NS 25,000 184 150 UNITS/500 25,000 units In 500 ml @ 1,000 UNIT/HR 20 mls/hr IVPB TITR [facility] Rx#:[id number] HEPARIN-1/2NS 25,000 205 UNITS/500 25,000 units In 500 ml @ 1,000 UNITS/HR 20 mls/hr IVPB TITR [facility] Rx#:[id number] Normal Saline - 1,000 ml 827 827 929 @ 75 mls/hr IV ASDIR [facility] Rx#:[id number] Output: Urine 1000 1999 1099 Mcdonald 1000 1999 1099 Other: Voiding Method Indwelling Catheter Indwelling Catheter Indwelling Catheter Bowel Movement No No No Weight Measurement Method Built in [facility] Built in [facility] Current Medications Artificial Tears (Artificial Tears) 1 drop OU TID PRN PRN Reason: Eye Irritation Last Admin: 09/12/17 15:26 Dose: 1 drop Atorvastatin Calcium (Lipitor -) 20 mg PO HS [facility] Last Admin: 09/12/17 21:51 Dose: 20 mg Dexamethasone Sodium Phosphate (Decadron Injection -) 4 mg IVPB BID [facility] Last Admin: 09/12/17 21:41 Dose: 4 mg Epinephrine (S-2) 1 vial NEB Q6H PRN PRN Reason: stridor Last Admin: 09/12/17 09:40 Dose: 1 vial Heparin Sodium (Porcine) (Heparin -) 1,000 unit IVPUSH PRN PRN PRN Reason: Heparin Heparin Sodium (Porcine) (Heparin -) 5,000 unit IVPUSH PRN PRN PRN Reason: Heparin Hydralazine HCl (Apresoline Injection -) 10 mg IVPUSH Q6H PRN PRN Reason: HYPERTENSION Last Admin: 09/12/17 21:41 Dose: 10 mg Sodium Chloride (Normal Saline -) 1,000 mls @ 75 mls/hr IV ASDIR [facility] Last Admin: 09/12/17 15:25 Dose: 75 mls/hr Diltiazem HCl 125 mg/ Dextrose 125 mls @ 5 mls/hr IVPB TITR [facility]; 5 MG/HR PRN Reason: Protocol Last Admin: 09/12/17 15:24 Dose: 15 mg/hr, 15 mls/hr HEPARIN SOD,PORK IN 0.45% NACL (Heparin-1/2ns 25,000 Units/500) 25,000 units in 500 mls @ 20 mls/hr IVPB TITR [facility]; 1,000 UNITS/HR PRN Reason: Protocol Last Admin: 09/12/17 21:41 Dose: 1,000 units/hr, 20 mls/hr Insulin Aspart (Novolog Vial Sliding Scale -) 1 vial SQ HS [facility] PRN Reason: Protocol Last Admin: 09/12/17 21:49 Dose: 2 units Insulin Aspart (Novolog Vial Sliding Scale -) 1 vial SQ TIDAC [facility] PRN Reason: Protocol Last Admin: 09/13/17 07:20 Dose: 4 units Insulin Detemir (Levemir Vial) 20 units SQ AM [facility] Ipratropium [place] (Atrovent 0.02% Nebulizer -) 1 amp NEB QIDR [facility] Last Admin: 09/13/17 06:49 Dose: Not Given Metoprolol Tartrate (Lopressor Injection -) 5 mg IVPUSH Q4H PRN PRN Reason: HYPERTENSION Last Admin: 09/12/17 08:30 Dose: 5 mg Ondansetron HCl (Zofran Injection) 4 mg IVPUSH Q6H PRN PRN Reason: NAUSEA Pantoprazole Sodium (Protonix Iv) 40 mg IVPUSH DAILY [facility] Last Admin: 09/12/17 09:19 Dose: 40 mg Constitutional: Yes: Confused and agitated Eyes: Yes: R 5mm reactive, L 3 reactive, conjuctiival hemmorrhage on L, stable HENT: Yes: Other (surgical sites on neck/ chest dressing clean/ dry/ intact) Neck: Yes: Supple Cardiovascular: Yes: irregular, tachy Respiratory: Yes: Diminished, scattered rhonchi Gastrointestinal: Yes: Soft Extremities: Yes: WNL Edema: No Peripheral Pulses WNL: Yes Wound/Incision: Yes: Dressing Dry and Intact Neurological: Yes:4/5 bilateral UE and LE Labs: CBCD WBC 13.5 K/mm3 (4.0-10.0) H 09/13/17 05:10 RBC 3.27 M/mm3 (3.60-5.2) L 09/13/17 05:10 Hgb 8.5 GM/dL (10.7-15.3) L 09/13/17 05:10 Hct 26.5 % (32.4-45.2) L 09/13/17 05:10 MCV 81.1 fl (80-96) 09/13/17 05:10 MCHC 32.2 g/dl (32.0-36.0) 09/13/17 05:10 RDW 17.2 % (11.6-15.6) H 09/13/17 05:10 Plt Count 395 K/MM3 (134-434) 09/13/17 05:10 MPV 7.5 fl (7.5-11.1) D 09/13/17 05:10 CMP Sodium 147 mmol/L (136-145) H 09/13/17 05:10 Potassium 4.5 mmol/L (3.5-5.1) 09/13/17 05:10 Chloride 117 mmol/L (98-107) H 09/13/17 05:10 Carbon Dioxide 21 mmol/L (21-32) 09/13/17 05:10 Anion Gap 9 (8-16) 09/13/17 05:10 BUN 43 mg/dL (7-18) H 09/13/17 05:10 Creatinine 1.7 mg/dL (0.55-1.02) H 09/13/17 05:10 Creat Clearance w eGFR 30.66 (>60) 09/13/17 05:10 Random Glucose 225 mg/dL (74-106) H 09/13/17 05:10 Calcium 8.3 mg/dL (8.5-10.1) L 09/13/17 05:10 Total Bilirubin 0.3 mg/dL (0.2-1.0) D 09/13/17 05:10 AST 25 U/L (15-37) 09/13/17 05:10 ALT 16 U/L (12-78) D 09/13/17 05:10 Alkaline Phosphatase 127 U/L (45-117) H 09/13/17 05:10 Total Protein 6.1 g/dl (6.4-8.2) L 09/13/17 05:10 Albumin 2.9 g/dl (3.4-5.0) L 09/13/17 05:10 CARDIAC ENZYMES Creatine Kinase 94 IU/L (26-192) 09/09/17 22:58 Troponin I < 0.02 ng/ml (0.00-0.05) 09/09/17 22:58 Problem List - Problems (1) Hypercapnia Code(s): R06.89 - OTHER ABNORMALITIES OF BREATHING (2) Brain metastasis Code(s): C79.31 - SECONDARY MALIGNANT NEOPLASM OF BRAIN (3) Headache Code(s): R51 - HEADACHE Qualifiers: Headache chronicity pattern: unspecified pattern Intractability: intractable (4) Intractable vomiting with nausea Code(s): R11.2 - NAUSEA WITH VOMITING, UNSPECIFIED Qualifiers: Vomiting type: unspecified Qualified Code(s): R11.2 - Nausea with vomiting , unspecified (5) Metastatic colorectal cancer Code(s): C78.5 - SECONDARY MALIGNANT NEOPLASM OF LARGE INTESTINE AND RECTUM (6) Atrial fibrillation Code(s): I48.91 - UNSPECIFIED ATRIAL FIBRILLATION (7) Diabetes mellitus, insulin dependent (IDDM), uncontrolled Code(s): E10.65 - TYPE 1 DIABETES MELLITUS WITH HYPERGLYCEMIA (8) HLD (hyperlipidemia) Code(s): E78.5 - HYPERLIPIDEMIA, UNSPECIFIED (9) HTN (hypertension) Code(s): I10 - ESSENTIAL (PRIMARY) HYPERTENSION Assessment/Plan Aspiration precautions , low threshold for intubation O2 to maintain saturation Follow Neuro exam heparin gtt restarted out of significant concern for pAF related embolic CVA Cardizem drip for rate control Follow renal function , improving Glycemic control PPI Need to discuss with GOC Timbo Shetty ACNP [phone] CCT
[2017-09-13 08:22] LABS: ARTERIAL BLD GAS O2 SATURATION 85.2 % (90-98.9); ARTERIAL BLOOD GAS BASE EXCESS -6.4 meq/l (-2-2); ARTERIAL BLOOD GAS PCO2 45.6 mmHg (35-45); ARTERIAL BLOOD GAS PO2 57.4 mmHg (80-100); ARTERIAL BLOOD GAS pH 7.26 (7.35-7.45)
[2017-09-13 08:36] LABS: ALLENS TEST POSITIVE
--- NOTE | 2017-09-13 08:55 | PN ---
Progress Note (short form) - Note Progress Note: Thoracic Attending: Pt appears worse neurologically. Discussed with family (her daughter) and she requests transfer to dedicated neurologic ICU. Timbo Shetty to try and find bed.
[2017-09-13] MEDS ORDERED: PROPOFOL 1,000,000 MCG/100 ML VIAL ONE (09:00)
[2017-09-13] MEDS ORDERED: BENZOIN/ALOE VERA/STORAX/TOLU 58 ML BOTTLE ONE (09:08)
--- NOTE | 2017-09-13 09:24 | PROC ---
Intubation - Intubation Reason for Intubation: Respiratory Failure Time of Intubation: 09:21 Intubation Method: orotracheal Blade used: Mac Tube Size (cm): 7.5 Tube position @ lip (cm): 21 Tube position confirmed by: Direct visualization, CO2 detector, Chest x-ray ( ordered), Breath sounds Breath Sounds after Intubation: equal Remarks: Pt altered, obstructing. Not protecting airway. Decision made to intubate. Pt preoxygenated, sedated with Propofol, muscle relaxation with rocuronium. Mac IV blade, Grade II view, thick dry secretions sitting on epiglottis and partially obstructing vocal cords, cleared with suction. 7.5 ETT passed atraumatically + ETCO2 Secured. CXR ordered. Timbo Shetty ACNP [id number]
[2017-09-13] MEDS: PROPOFOL 1,000,000 MCG/100 ML VIAL IVPB SCH (10:00)
[2017-09-13] MEDS: INSULIN DETEMIR 100 UNITS/ML MDV SQ SCH (10:08)
--- NOTE | 2017-09-13 10:32 | PN ---
Progress Note, Physician History of Present Illness: respiratory failure--intubated - Current Medication List Current Medications: Active Medications Artificial Tears (Artificial Tears) 1 drop OU TID PRN PRN Reason: Eye Irritation Last Admin: 09/12/17 15:26 Dose: 1 drop Atorvastatin Calcium (Lipitor -) 20 mg PO HS [facility] Last Admin: 09/12/17 21:51 Dose: 20 mg Dexamethasone Sodium Phosphate (Decadron Injection -) 4 mg IVPB BID [facility] Last Admin: 09/12/17 21:41 Dose: 4 mg Epinephrine (S-2) 1 vial NEB Q6H PRN PRN Reason: stridor Last Admin: 09/12/17 09:40 Dose: 1 vial Heparin Sodium (Porcine) (Heparin -) 1,000 unit IVPUSH PRN PRN PRN Reason: Heparin Heparin Sodium (Porcine) (Heparin -) 5,000 unit IVPUSH PRN PRN PRN Reason: Heparin Hydralazine HCl (Apresoline Injection -) 10 mg IVPUSH Q6H PRN PRN Reason: HYPERTENSION Last Admin: 09/12/17 21:41 Dose: 10 mg Diltiazem HCl 125 mg/ Dextrose 125 mls @ 5 mls/hr IVPB TITR [facility]; 5 MG/HR PRN Reason: Protocol Last Titration: 09/13/17 08:36 Dose: 15 mg/hr, 15 mls/hr HEPARIN SOD,PORK IN 0.45% NACL (Heparin-1/2ns 25,000 Units/500) 25,000 units in 500 mls @ 20 mls/hr IVPB TITR [facility]; 1,000 UNITS/HR PRN Reason: Protocol Last Admin: 09/12/17 21:41 Dose: 1,000 units/hr, 20 mls/hr Insulin Aspart (Novolog Vial Sliding Scale -) 1 vial SQ HS [facility] PRN Reason: Protocol Last Admin: 09/12/17 21:49 Dose: 2 units Insulin Aspart (Novolog Vial Sliding Scale -) 1 vial SQ TIDAC [facility] PRN Reason: Protocol Last Admin: 09/13/17 07:20 Dose: 4 units Insulin Detemir (Levemir Vial) 20 units SQ AM [facility] Last Admin: 09/13/17 10:08 Dose: 20 units Ipratropium [place] (Atrovent 0.02% Nebulizer -) 1 amp NEB QIDR [facility] Last Admin: 09/13/17 06:49 Dose: Not Given Metoprolol Tartrate (Lopressor Injection -) 5 mg IVPUSH Q4H PRN PRN Reason: HYPERTENSION Last Admin: 09/12/17 08:30 Dose: 5 mg Ondansetron HCl (Zofran Injection) 4 mg IVPUSH Q6H PRN PRN Reason: NAUSEA Pantoprazole Sodium (Protonix Iv) 40 mg IVPUSH DAILY [facility] Last Admin: 09/12/17 09:19 Dose: 40 mg - Objective Vital Signs: Vital Signs Temperature 97.8 F 09/13/17 02:05 Pulse Rate 148 H 09/13/17 08:36 Respiratory Rate 12 09/13/17 09:15 Blood Pressure 168/136 09/13/17 08:36 O2 Sat by Pulse Oximetry (%) 100 09/12/17 21:00 Cardiovascular: Yes: Pulse Irregular, S1, S2 Respiratory: Yes: Mechanically Ventilated, Rhonchi Gastrointestinal: Yes: Normal Bowel Sounds, Soft Neurological: Yes: Unresponsive (--sedated) Labs: CBC, BMP 09/13/17 05:10 09/13/17 05:10 INR, PTT INR 1.06 (0.82-1.09) 09/13/17 05:10 Problem List - Problems (1) Respiratory failure Assessment/Plan: PER ICU TEAM REQUIRED INTUBATION THIS AM VENT SUPPORT NEBS IV ABX CXR Code(s): J96.90 - RESPIRATORY FAILURE, UNSP, UNSP W HYPOXIA OR HYPERCAPNIA (2) Brain metastasis Assessment/Plan: NEURO CONSULT NOTED Code(s): C79.31 - SECONDARY MALIGNANT NEOPLASM OF BRAIN (3) CVA (cerebral vascular accident) Assessment/Plan: ABOVE--SEE NEURO CONSULT CT WITH HYDROCEPHALUS NS AND NEURO ON CASE FURTHER PLAN PER NEURO Code(s): I63.9 - CEREBRAL INFARCTION, UNSPECIFIED (4) Metastatic colorectal cancer Code(s): C78.5 - SECONDARY MALIGNANT NEOPLASM OF LARGE INTESTINE AND RECTUM (5) Atrial fibrillation Assessment/Plan: ON CARDIZEM ON HEPARIN CARDIO ON BOARD Code(s): I48.91 - UNSPECIFIED ATRIAL FIBRILLATION (6) Diabetes Assessment/Plan: BGM Code(s): E11.9 - TYPE 2 DIABETES MELLITUS WITHOUT COMPLICATIONS
[2017-09-13] MEDS: DEXAMETHASONE SOD PHOSPHATE 4 MG/1 ML VIAL IVPB SCH (10:46)
[2017-09-13] MEDS: PANTOPRAZOLE SODIUM 40 MG VIAL IVPUSH SCH (10:46)
[2017-09-13 10:49] LABS: PLATELET ESTIMATE ADEQUATE
[2017-09-13 11:14] LABS: ARTERIAL BLD GAS O2 SATURATION 93.6 % (90-98.9); ARTERIAL BLOOD GAS BASE EXCESS -5.9 meq/l (-2-2); ARTERIAL BLOOD GAS PCO2 41.9 mmHg (35-45); ARTERIAL BLOOD GAS PO2 75.9 mmHg (80-100); ARTERIAL BLOOD GAS pH 7.29 (7.35-7.45)
[2017-09-13 11:16] LABS: ALLENS TEST POSITIVE
[2017-09-13] MEDS ORDERED: ROCURONIUM BROMIDE 50 MG/5 ML VIAL IVPUSH ONE (11:45)
[2017-09-13] MEDS ORDERED: PROPOFOL 200 MG/20 ML VIAL IVPUSH ONE (11:46)
[2017-09-13] MEDS ORDERED: levETIRAcetam 500 MG/5 ML INJECTION VIAL IVPB STA (14:43)
[2017-09-13] MEDS ORDERED: PT OWN MED DRAWER 7, Y5N ONE ×2 (14:45→21:30)
[2017-09-13] MEDS ORDERED: dilTIAZem HCL 25 MG/5 ML - 5 ML VIAL ONE (15:41)
[2017-09-13] MEDS: CEFTRIAXONE IN IS-OSM DEXTROSE 2 GM/50 ML BAG IVPB SCH (17:16)
--- NOTE | 2017-09-13 17:18 | PN ---
Progress Note (short form) - Note Progress Note: NEUROLOGY FOLLOW-UP: Events reviewed and discussed with Dr. Morley, ICU staff and family. According to daughter and HO Pt was awake and alert this AM when she became agitated and tachypneic requiring intubation. A large mucus plug was suctioned. Now on Propofol. Repeat CT of head (reviewed): No significant change from yesterday. Stable or sl. increased hydrocephalus. Exam: intubated. + spontaneous respirations. No response to sternal pressure. Still with pupillary asymmetry (R>L) but both remain reactive. Sluggish corneals. + EOM's to Doll's head. IMP: Apparently, intubation was more to protect the airway then for neurological deterioration. Unfortunately, it is difficult to fully access her on propofol. SUGGEST: Continue Heparin and Decadron. Continue supportive care. Repeat CT of head ((C-/C+) tomorrow, as per Dr. Llanos to follow ventricular size and define metastatic disease. Thank you very much, Daniel Pulido MD
[2017-09-13] MEDS: DILTIAZEM INJECTION 125 MG in DEXTROSE 5%-WATER - 100 ML IVPB SCH (17:52)
--- NOTE | 2017-09-13 19:57 | PN ---
Progress Note, Physician History of Present Illness: Pt seen and examined at bedside. She is now intubated. - Current Medication List Current Medications: Active Medications Albuterol/Ipratropium (Duoneb -) 1 amp NEB QIDR [facility] Artificial Tears (Artificial Tears) 1 drop OU TID PRN PRN Reason: Eye Irritation Last Admin: 09/12/17 15:26 Dose: 1 drop Atorvastatin Calcium (Lipitor -) 20 mg PO HS [facility] Last Admin: 09/12/17 21:51 Dose: 20 mg Dexamethasone Sodium Phosphate (Decadron Injection -) 4 mg IVPUSH Q6H-IV [facility] Epinephrine (S-2) 1 vial NEB Q6H PRN PRN Reason: stridor Last Admin: 09/12/17 09:40 Dose: 1 vial Heparin Sodium (Porcine) (Heparin -) 1,000 unit IVPUSH PRN PRN PRN Reason: Heparin Heparin Sodium (Porcine) (Heparin -) 5,000 unit IVPUSH PRN PRN PRN Reason: Heparin Hydralazine HCl (Apresoline Injection -) 10 mg IVPUSH Q6H PRN PRN Reason: HYPERTENSION Last Admin: 09/12/17 21:41 Dose: 10 mg Diltiazem HCl 125 mg/ Dextrose 125 mls @ 5 mls/hr IVPB TITR [facility]; 5 MG/HR PRN Reason: Protocol Last Admin: 09/13/17 17:52 Dose: 15 mg/hr, 15 mls/hr HEPARIN SOD,PORK IN 0.45% NACL (Heparin-1/2ns 25,000 Units/500) 25,000 units in 500 mls @ 20 mls/hr IVPB TITR [facility]; 1,000 UNITS/HR PRN Reason: Protocol Last Titration: 09/13/17 10:00 Dose: 950 units/hr, 19 mls/hr CEFTRIAXONE IN IS-OSM DEXTROSE (Ceftriaxone 2 Gm-D5w Bag) 2 gm in 50 mls @ 200 mls/hr IVPB DAILY [facility] Last Admin: 09/13/17 17:16 Dose: 200 mls/hr Propofol (Diprivan -) 1,000,000 mcg in 100 mls @ 2.51 mls/hr IVPB TITR [facility]; 5 MCG/KG/MIN PRN Reason: Protocol Last Admin: 09/13/17 10:00 Dose: 5 mcg/kg/min, 2.51 mls/hr Insulin Aspart (Novolog Vial Sliding Scale -) 1 vial SQ HS [facility] PRN Reason: Protocol Last Admin: 09/12/17 21:49 Dose: 2 units Insulin Aspart (Novolog Vial Sliding Scale -) 1 vial SQ TIDAC [facility] PRN Reason: Protocol Last Admin: 09/13/17 17:23 Dose: 3 units Insulin Detemir (Levemir Vial) 20 units SQ AM [facility] Last Admin: 09/13/17 10:08 Dose: 20 units Ipratropium [place] (Atrovent 0.02% Nebulizer -) 1 amp NEB QIDR [facility] Last Admin: 09/13/17 17:30 Dose: 1 amp Metoprolol Tartrate (Lopressor Injection -) 5 mg IVPUSH Q4H PRN PRN Reason: HYPERTENSION Last Admin: 09/12/17 08:30 Dose: 5 mg Ondansetron HCl (Zofran Injection) 4 mg IVPUSH Q6H PRN PRN Reason: NAUSEA Pantoprazole Sodium (Protonix Iv) 40 mg IVPUSH DAILY [facility] Last Admin: 09/13/17 10:46 Dose: 40 mg - Objective Vital Signs: Vital Signs Temperature 98.0 F 09/13/17 18:00 Pulse Rate 98 H 09/13/17 18:00 Respiratory Rate 20 09/13/17 18:50 Blood Pressure 181/81 09/13/17 18:00 O2 Sat by Pulse Oximetry (%) 87 L 09/13/17 09:00 Constitutional: Yes: Calm Eyes: Yes: Conjunctiva Clear Neck: Yes: Supple Cardiovascular: Yes: S1, S2 Respiratory: Yes: Mechanically Ventilated Gastrointestinal: Yes: Soft Genitourinary: Yes: Mcdonald Present Musculoskeletal: Yes: WNL Edema: No Neurological: Yes: Other (sedated) Labs: CBC, BMP 09/13/17 05:10 09/13/17 05:10 INR, PTT INR 1.06 (0.82-1.09) 09/13/17 05:10 - ....Imaging Chest X-ray: Report Reviewed Problem List - Problems (1) Brain metastasis Code(s): C79.31 - SECONDARY MALIGNANT NEOPLASM OF BRAIN (2) Headache Code(s): R51 - HEADACHE Qualifiers: Headache chronicity pattern: unspecified pattern Intractability: intractable (3) Metastatic colorectal cancer Code(s): C78.5 - SECONDARY MALIGNANT NEOPLASM OF LARGE INTESTINE AND RECTUM (4) SUSAN (acute kidney injury) Code(s): N17.9 - ACUTE KIDNEY FAILURE, UNSPECIFIED (5) Atrial fibrillation Code(s): I48.91 - UNSPECIFIED ATRIAL FIBRILLATION (6) Cancer, colon Code(s): C18.9 - MALIGNANT NEOPLASM OF COLON, UNSPECIFIED Qualifiers: Colon location: unspecified part of colon Qualified Code(s): C18.9 - Malignant neoplasm of colon, unspecified (7) Lung mass Code(s): R91.8 - OTHER NONSPECIFIC ABNORMAL FINDING OF LUNG FIELD Assessment/Plan Current Medications Generic Name Dose Route Start Last Admin Trade Name Freq PRN Reason Stop Dose Admin Albuterol/Ipratropium 1 amp 09/13/17 12:00 Duoneb - NEB QIDR [facility] Artificial Tears 1 drop 09/12/17 13:31 09/12/17 15:26 Artificial Tears OU 1 drop TID PRN Administration Eye Irritation Atorvastatin Calcium 20 mg 09/11/17 22:00 09/12/17 21:51 Lipitor - PO 20 mg HS [facility] Administration Dexamethasone Sodium Phosphate 4 mg 09/13/17 21:00 Decadron Injection - IVPUSH Q6H-IV [facility] Epinephrine 1 vial 09/11/17 10:21 09/12/17 09:40 S-2 NEB 1 vial Q6H PRN Administration stridor Heparin Sodium (Porcine) 1,000 unit 09/12/17 19:46 Heparin - IVPUSH PRN PRN Heparin Heparin Sodium (Porcine) 5,000 unit 09/12/17 19:46 Heparin - IVPUSH PRN PRN Heparin Hydralazine HCl 10 mg 09/11/17 10:25 09/12/17 21:41 Apresoline Injection - IVPUSH 10 mg Q6H PRN Administration HYPERTENSION Diltiazem HCl 125 mg/ Dextrose 125 mls @ 5 mls/hr 09/11/17 14:27 09/13/17 17: 52 IVPB 15 mg/hr TITR [facility] 15 mls/hr Protocol Administration 5 MG/HR HEPARIN SOD,PORK IN 0.45% NACL 25,000 units in 500 mls @ 20 mls/hr 09/12/17 20 :00 09/13/17 10:00 Heparin-1/2ns 25,000 Units/500 IVPB 950 units/hr TITR [facility] 19 mls/hr Protocol Titration 1,000 UNITS/HR CEFTRIAXONE IN IS-OSM DEXTROSE 2 gm in 50 mls @ 200 mls/hr 09/13/17 13:15 02/23 17:16 Ceftriaxone 2 Gm-D5w Bag IVPB 200 mls/hr DAILY [facility] Administration Propofol 1,000,000 mcg in 100 mls @ 2.51 mls/hr 09/13/17 11:45 09/13/17 14:20 Diprivan - IVPB 40 mcg/kg/min TITR [facility] 20.078 mls/hr Protocol Titration 5 MCG/KG/MIN Insulin Aspart 1 vial 09/11/17 22:00 09/12/17 21:49 Novolog Vial Sliding Scale - SQ 2 units HS [facility] Administration Protocol Insulin Aspart 1 vial 09/11/17 07:00 09/13/17 17:23 Novolog Vial Sliding Scale - SQ 3 units TIDAC [facility] Administration Protocol Insulin Detemir 20 units 09/13/17 07:00 09/13/17 10:08 Levemir Vial SQ 20 units AM [facility] Administration Ipratropium [place] 1 amp 09/11/17 06:00 09/13/17 17:30 Atrovent 0.02% Nebulizer - NEB 1 amp QIDR [facility] Administration Metoprolol Tartrate 5 mg 09/11/17 10:25 09/12/17 08:30 Lopressor Injection - IVPUSH 5 mg Q4H PRN Administration HYPERTENSION Ondansetron HCl 4 mg 09/11/17 02:02 Zofran Injection IVPUSH Q6H PRN NAUSEA Pantoprazole Sodium 40 mg 09/11/17 10:00 09/13/17 10:46 Protonix Iv IVPUSH 40 mg DAILY [facility] Administration Impression 1. CKD 2. SUSAN 3. DM 4. htn 5. chol 6. chemo port malfunction 7. a-fib 8. lung mass 9. proteinuria 10. adenocarcinoma 11. CVA 12. acute resp failure Plan - renal function is stable - discussed with neurology and with pts family. Pt needs contrast with ct scan. Will prep pt with fluids and mucomyst. - family understand risk of RADHA - vent support - consider switching fluids to 1/2 ns - monitor blood pressure - repeat labs in am - will follow Dr Llanos
[2017-09-13] MEDS ORDERED: ACETYLCYSTEINE 20% 200MG/ML 30 ML VIAL *FOR ORAL / INH USE ONLY NGT SCH (20:00)
[2017-09-13] MEDS: HEPARIN SOD,PORK IN 0.45% NACL 25,000 UNITS/500 ML INFUS.BAG IVPB SCH (20:00)
[2017-09-13] MEDS: DEXAMETHASONE SOD PHOSPHATE 4 MG/1 ML VIAL IVPUSH SCH (21:33)
[2017-09-13] MEDS: ATORVASTATIN CA 20 MG TABLET (FP) PO SCH (21:33)
[2017-09-13] MEDS: hydrALAZINE HCL 20 MG/ML VIAL IVPUSH PRN (21:33)
--- NOTE | 2017-09-13 22:44 | PN ---
Progress Note, Physician Chief Complaint: Patient is intubated and sedated. Tele shows rapid afib. Currently in sinus with frequent APCs. History of Present Illness: 62 year old woman with a PMHx of HTN, paroxysmal atrial fibrillation on apixaban , DM, HLD, CKD, GERD and colon CA s/p colectomy 2011 with mets to lung admitted with nausea and vomiting. +headache. Concern for lesion on head CT. MRI brain with metastatic disease and with acute infarcts. Tele showed rapid afib converted to sinus with frequent APCs. - Current Medication List Current Medications: Active Medications Acetylcysteine (Mucomyst 20 Oral / Inh Use Only*) 600 mg NGT Q12H [facility] Stop: 09/15/17 08:01 Albuterol/Ipratropium (Duoneb -) 1 amp NEB QIDR [facility] Artificial Tears (Artificial Tears) 1 drop OU TID PRN PRN Reason: Eye Irritation Last Admin: 09/12/17 15:26 Dose: 1 drop Atorvastatin Calcium (Lipitor -) 20 mg PO HS [facility] Last Admin: 09/13/17 21:33 Dose: 20 mg Dexamethasone Sodium Phosphate (Decadron Injection -) 4 mg IVPUSH Q6H-IV [facility] Last Admin: 09/13/17 21:33 Dose: 4 mg Epinephrine (S-2) 1 vial NEB Q6H PRN PRN Reason: stridor Last Admin: 09/12/17 09:40 Dose: 1 vial Heparin Sodium (Porcine) (Heparin -) 1,000 unit IVPUSH PRN PRN PRN Reason: Heparin Heparin Sodium (Porcine) (Heparin -) 5,000 unit IVPUSH PRN PRN PRN Reason: Heparin Hydralazine HCl (Apresoline Injection -) 10 mg IVPUSH Q6H PRN PRN Reason: HYPERTENSION Last Admin: 09/13/17 21:33 Dose: 10 mg Diltiazem HCl 125 mg/ Dextrose 125 mls @ 5 mls/hr IVPB TITR [facility]; 5 MG/HR PRN Reason: Protocol Last Admin: 09/13/17 17:52 Dose: 15 mg/hr, 15 mls/hr HEPARIN SOD,PORK IN 0.45% NACL (Heparin-1/2ns 25,000 Units/500) 25,000 units in 500 mls @ 20 mls/hr IVPB TITR [facility]; 1,000 UNITS/HR PRN Reason: Protocol Last Titration: 09/13/17 10:00 Dose: 950 units/hr, 19 mls/hr CEFTRIAXONE IN IS-OSM DEXTROSE (Ceftriaxone 2 Gm-D5w Bag) 2 gm in 50 mls @ 200 mls/hr IVPB DAILY [facility] Last Admin: 09/13/17 17:16 Dose: 200 mls/hr Propofol (Diprivan -) 1,000,000 mcg in 100 mls @ 2.51 mls/hr IVPB TITR [facility]; 5 MCG/KG/MIN PRN Reason: Protocol Last Titration: 09/13/17 14:20 Dose: 40 mcg/kg/min, 20.078 mls/hr Insulin Aspart (Novolog Vial Sliding Scale -) 1 vial SQ HS [facility] PRN Reason: Protocol Last Admin: 09/13/17 21:33 Dose: 3 units Insulin Aspart (Novolog Vial Sliding Scale -) 1 vial SQ TIDAC [facility] PRN Reason: Protocol Last Admin: 09/13/17 17:23 Dose: 3 units Insulin Detemir (Levemir Vial) 20 units SQ AM [facility] Last Admin: 09/13/17 10:08 Dose: 20 units Ipratropium [place] (Atrovent 0.02% Nebulizer -) 1 amp NEB QIDR [facility] Last Admin: 09/13/17 17:30 Dose: 1 amp Metoprolol Tartrate (Lopressor Injection -) 5 mg IVPUSH Q4H PRN PRN Reason: HYPERTENSION Last Admin: 09/12/17 08:30 Dose: 5 mg Ondansetron HCl (Zofran Injection) 4 mg IVPUSH Q6H PRN PRN Reason: NAUSEA Pantoprazole Sodium (Protonix Iv) 40 mg IVPUSH DAILY [facility] Last Admin: 09/13/17 10:46 Dose: 40 mg - Objective Vital Signs: Vital Signs Temperature 98.0 F 09/13/17 18:00 Pulse Rate 142 H 09/13/17 20:00 Respiratory Rate 20 09/13/17 21:41 Blood Pressure 157/75 09/13/17 20:00 O2 Sat by Pulse Oximetry (%) 100 09/13/17 20:29 Constitutional: Yes: Well Nourished, No Distress, Obese HENT: Yes: Atraumatic, Normocephalic Neck: Yes: Supple, Trachea Midline Cardiovascular: Yes: Pulse Irregular Respiratory: Yes: Regular, Intubated, Rhonchi Gastrointestinal: Yes: Normal Bowel Sounds, Soft, Abdomen, Obese ...Rectal Exam: Yes: Deferred Edema: No Peripheral Pulses WNL: Yes Labs: CBC, BMP 09/13/17 05:10 09/13/17 05:10 INR, PTT INR 1.06 (0.82-1.09) 09/13/17 05:10 Assessment/Plan 62 year old woman with a PMHx of HTN, paroxysmal atrial fibrillation on apixaban , DM, HLD, CKD, GERD and colon CA s/p colectomy 2011 with mets to lung admitted with nausea and vomiting. +headache. Concern for lesion on head CT. MRI brain with metastatic disease and with acute infarcts. Tele showed rapid afib converted to sinus with frequent APCs. 1) Paroxysmal atrial fibrillation, cardioverted to sinus while on Dilt drip and Metoprolol IV. May increase Diltiazem drip to 10 mg/hour. Continue IV metoprolol. -On heparin drip as per neurology 2) HTN: systolic BP is mildly elevated. May increase Diltiazem drip to 10 mg/hour. I3) Oncology -management as per primary team On decadron
[2017-09-14] MEDS ORDERED: dilTIAZem HCL 125 MG/25 ML - 25 ML VIAL ONE (01:14)
[2017-09-14] MEDS ORDERED: dilTIAZem HCL 50 MG/10 ML - 10 ML VIAL IVPUSH ONE (01:28)
[2017-09-14] MEDS: DEXAMETHASONE SOD PHOSPHATE 4 MG/1 ML VIAL IVPUSH SCH ×4 (03:06→20:43)
[2017-09-14] MEDS: IPRATROPIUM BR 0.02% 0.5 MG/2.5 ML VIAL.NEB. NEB SCH ×3 (06:01→23:21)
[2017-09-14] MEDS: ALBUTEROL SO4 2.5/IPRATROPIUM 0.5 INH SOL 3 ML VIAL.NEB. NEB SCH ×4 (06:02→18:50)
[2017-09-14 06:25] LABS: HEMOGLOBIN 8.5 GM/dL (10.7-15.3); MCH 26.5 pg (25.7-33.7); MCHC 32.8 g/dl (32.0-36.0); MEAN CELL VOLUME 80.9 fl (80-96); MEAN PLT VOLUME 7.6 fl (7.5-11.1); PLATELET COUNT 329 K/MM3 (134-434); RBC 3.21 M/mm3 (3.60-5.2); RDW 16.7 % (11.6-15.6)
[2017-09-14] MEDS: INSULIN SLIDING SCALE (NOVOLOG) 1 VIAL SQ SCH ×4 (06:30→21:18)
[2017-09-14] MEDS: INSULIN DETEMIR 100 UNITS/ML MDV SQ SCH (06:32)
[2017-09-14 06:48] LABS: CHLORIDE 118 mmol/L (98-107); POTASSIUM 3.9 mmol/L (3.5-5.1); SODIUM 147 mmol/L (136-145)
--- NOTE | 2017-09-14 07:27 | PN ---
Progress Note (short form) - Note Progress Note: PULM/CCM Pt seen & Examined in the ICU. Pt is intubated & sedated resting comfortably on the Vent. Critical end stage malignant brain neoplasm. Active Medications Acetylcysteine (Mucomyst 20 Oral / Inh Use Only*) 600 mg NGT Q12H [facility] Stop: 09/15/17 08:01 Albuterol/Ipratropium (Duoneb -) 1 amp NEB QIDR [facility] Last Admin: 09/14/17 06:02 Dose: 1 amp Artificial Tears (Artificial Tears) 1 drop OU TID PRN PRN Reason: Eye Irritation Last Admin: 09/12/17 15:26 Dose: 1 drop Atorvastatin Calcium (Lipitor -) 20 mg PO HS [facility] Last Admin: 09/13/17 21:33 Dose: 20 mg Dexamethasone Sodium Phosphate (Decadron Injection -) 4 mg IVPUSH Q6H-IV [facility] Last Admin: 09/14/17 09:06 Dose: 4 mg Epinephrine (S-2) 1 vial NEB Q6H PRN PRN Reason: stridor Last Admin: 09/12/17 09:40 Dose: 1 vial Heparin Sodium (Porcine) (Heparin -) 1,000 unit IVPUSH PRN PRN PRN Reason: Heparin Heparin Sodium (Porcine) (Heparin -) 5,000 unit IVPUSH PRN PRN PRN Reason: Heparin Hydralazine HCl (Apresoline Injection -) 10 mg IVPUSH Q6H PRN PRN Reason: HYPERTENSION Last Admin: 09/13/17 21:33 Dose: 10 mg Diltiazem HCl 125 mg/ Dextrose 125 mls @ 5 mls/hr IVPB TITR [facility]; 5 MG/HR PRN Reason: Protocol Last Admin: 09/13/17 17:52 Dose: 15 mg/hr, 15 mls/hr HEPARIN SOD,[place] IN 0.45% NACL (Heparin-1/2ns 25,000 Units/500) 25,000 units in 500 mls @ 20 mls/hr IVPB TITR [facility]; 1,000 UNITS/HR PRN Reason: Protocol Last Admin: 09/13/17 20:00 Dose: 950 units/hr, 19 mls/hr CEFTRIAXONE IN IS-OSM DEXTROSE (Ceftriaxone 2 Gm-D5w Bag) 2 gm in 50 mls @ 200 mls/hr IVPB DAILY [facility] Last Admin: 09/14/17 09:25 Dose: 200 mls/hr Propofol (Diprivan -) 1,000,000 mcg in 100 mls @ 2.51 mls/hr IVPB TITR [facility]; 5 MCG/KG/MIN PRN Reason: Protocol Last Admin: 09/14/17 09:42 Dose: 40 mcg/kg/min, 20.078 mls/hr Insulin Aspart (Novolog Vial Sliding Scale -) 1 vial SQ HS [facility] PRN Reason: Protocol Last Admin: 09/13/17 21:33 Dose: 3 units Insulin Aspart (Novolog Vial Sliding Scale -) 1 vial SQ TIDAC [facility] PRN Reason: Protocol Last Admin: 09/14/17 06:30 Dose: 4 units Insulin Detemir (Levemir Vial) 20 units SQ AM [facility] Last Admin: 09/14/17 06:32 Dose: 20 units Ipratropium [place] (Atrovent 0.02% Nebulizer -) 1 amp NEB QIDR [facility] Last Admin: 09/14/17 06:01 Dose: Not Given Metoprolol Tartrate (Lopressor Injection -) 5 mg IVPUSH Q4H PRN PRN Reason: HYPERTENSION Last Admin: 09/12/17 08:30 Dose: 5 mg Ondansetron HCl (Zofran Injection) 4 mg IVPUSH Q6H PRN PRN Reason: NAUSEA Pantoprazole Sodium (Protonix Iv) 40 mg IVPUSH DAILY [facility] Last Admin: 09/14/17 09:07 Dose: 40 mg V/S Period Temp Pulse Resp BP Sys/Mcdaniel Pulse Ox Last 24 Hr 98.0 F-98.5 F 83-142 14-22 139-181/59-87 100-100 Intake & Output 09/11/17 09/12/17 09/13/17 09/14/17 23:59 23:59 23:59 23:59 Intake Total 2098 2317 2234 1596 Output Total 1600 3000 1500 200 Balance 491 -230 [id number] 639 8364 Weight 84.4 kg 83.659 kg 85.6 kg GEN: Middle aged woman in bed, intubated, & sedated HEENT: Pupillary asymmetry (R>L) (but both pupils are reactive), massive L eye subconjunctival hemorrhage, MMM PULM: CTAB CV: nml S1 S2, irreg irreg, unable to appreciate any G/M/R ABD: Obese, Hypoactive BS, S/S N/T N/D X4Q SKIN: Warm, dry, unable to appreciate any rashes, lesions or ulcers NEURO: Sedated, sluggish corneals, + EOM's to Doll's head. CBC, BMP 09/14/17 05:05 09/14/17 05:05 Microbiology 09/09/17 22:58 Blood - Peripheral Venous Blood Culture - Preliminary NO GROWTH OBTAINED AFTER 96 HOURS, INCUBATION TO CONTINUE FOR 1 DAYS. 09/09/17 22:30 Blood - Peripheral Venous Blood Culture - Preliminary NO GROWTH OBTAINED AFTER 96 HOURS, INCUBATION TO CONTINUE FOR 1 DAYS. 09/10/17 00:13 Urine - Urine Clean Catch Urine Culture - Final Contaminated: Please Repeat RECENT STUDIES TO NOTE: CXR 09/13: ETT in good position, no CVC, mod L effusion (My Read). MRI Brain 09/10: Metastatic disease right and L hemispheres. + mult acute infarcts R&L cerebral hemispheres, Large infarct L cerebellum concerning for risk of herniation. ASSESS: This is a 62 y/o woman w/ HTN, pA-Fib on apixaban, DM, HLD, CKD, GERD and colon CA s/p colectomy 2011 w/ mets to lung admitted now w/ resp fail 2/2 to a large CVA in the setting of metastatic disease to brain. PLAN: -Vent support -Nebs -F/u CXR -Cardizem -Heparin -CARDS -FSs -SSI -NEURO -NS -PPI -SCDs -This pt has a Large cerebellar infarction we need to meet w/ NOK & Discuss GOC -Pall Care Consult DGL, ACNP-[facility] ICU PULM/CCM [id number] Critical Care Total Critical Care Time (in minutes): 39 Critical Care Statement: The care of this patient involved high complexity decision making to prevent further life threatening deterioration of the patient 's condition and/or to evaluate & treat vital organ system(s) failure or risk of failure.
[2017-09-14 07:33] LABS: ALBUMIN 2.5 g/dl (3.4-5.0); ANION GAP 10 (8-16); BLOOD UREA NITROGEN 45 mg/dL (7-18); CALCIUM 7.7 mg/dL (8.5-10.1); CO2 19 mmol/L (21-32); CREATININE 1.8 mg/dL (0.55-1.02); GLUCOSE,RANDOM 245 mg/dL (74-106); MAGNESIUM 2.7 mg/dL (1.8-2.4); PHOSPHOROUS 2.3 mg/dL (2.5-4.9); SGOT/AST 20 U/L (15-37); SGPT/ALT 16 U/L (12-78)
[2017-09-14 07:35] LABS: ALK PHOS 111 U/L (45-117); BILIRUBIN,TOTAL 0.5 mg/dL (0.2-1.0); TOT PROT 5.8 g/dl (6.4-8.2)
[2017-09-14 07:59] LABS: ARTERIAL BLOOD GAS PCO2 27.2 mmHg (35-45)
[2017-09-14 08:00] LABS: ALLENS TEST POSITIVE; ARTERIAL BLD GAS O2 SATURATION 96.4 % (90-98.9)
[2017-09-14] MEDS: ACETYLCYSTEINE 20% 200MG/ML 4 ML VIAL *FOR ORAL / INH USE ONLY NGT SCH ×2 (08:40→22:50)
[2017-09-14] MEDS: PANTOPRAZOLE SODIUM 40 MG VIAL IVPUSH SCH (09:07)
[2017-09-14] MEDS: CEFTRIAXONE IN IS-OSM DEXTROSE 2 GM/50 ML BAG IVPB SCH (09:25)
[2017-09-14] MEDS: PROPOFOL 1,000,000 MCG/100 ML VIAL IVPB SCH ×4 (09:42→22:00)
--- NOTE | 2017-09-14 11:23 | PN ---
Progress Note, Physician History of Present Illness: respiratory failure--intubated SEDATED - Current Medication List Current Medications: Active Medications Acetylcysteine (Mucomyst 20 Oral / Inh Use Only*) 600 mg NGT Q12H [facility] Stop: 09/15/17 08:01 Albuterol/Ipratropium (Duoneb -) 1 amp NEB QIDR [facility] Last Admin: 09/14/17 06:02 Dose: 1 amp Artificial Tears (Artificial Tears) 1 drop OU TID PRN PRN Reason: Eye Irritation Last Admin: 09/12/17 15:26 Dose: 1 drop Atorvastatin Calcium (Lipitor -) 20 mg PO HS [facility] Last Admin: 09/13/17 21:33 Dose: 20 mg Dexamethasone Sodium Phosphate (Decadron Injection -) 4 mg IVPUSH Q6H-IV [facility] Last Admin: 09/14/17 09:06 Dose: 4 mg Epinephrine (S-2) 1 vial NEB Q6H PRN PRN Reason: stridor Last Admin: 09/12/17 09:40 Dose: 1 vial Heparin Sodium (Porcine) (Heparin -) 1,000 unit IVPUSH PRN PRN PRN Reason: Heparin Heparin Sodium (Porcine) (Heparin -) 5,000 unit IVPUSH PRN PRN PRN Reason: Heparin Hydralazine HCl (Apresoline Injection -) 10 mg IVPUSH Q6H PRN PRN Reason: HYPERTENSION Last Admin: 09/13/17 21:33 Dose: 10 mg Diltiazem HCl 125 mg/ Dextrose 125 mls @ 5 mls/hr IVPB TITR [facility]; 5 MG/HR PRN Reason: Protocol Last Admin: 09/13/17 17:52 Dose: 15 mg/hr, 15 mls/hr HEPARIN SOD,[place] 0.45% NACL (Heparin-1/2ns 25,000 Units/500) 25,000 units in 500 mls @ 20 mls/hr IVPB TITR [facility]; 1,000 UNITS/HR PRN Reason: Protocol Last Admin: 09/13/17 20:00 Dose: 950 units/hr, 19 mls/hr CEFTRIAXONE IN IS-OSM DEXTROSE (Ceftriaxone 2 Gm-D5w Bag) 2 gm in 50 mls @ 200 mls/hr IVPB DAILY [facility] Last Admin: 09/14/17 09:25 Dose: 200 mls/hr Propofol (Diprivan -) 1,000,000 mcg in 100 mls @ 2.51 mls/hr IVPB TITR [facility]; 5 MCG/KG/MIN PRN Reason: Protocol Last Admin: 09/14/17 09:42 Dose: 40 mcg/kg/min, 20.078 mls/hr Insulin Aspart (Novolog Vial Sliding Scale -) 1 vial SQ HS [facility] PRN Reason: Protocol Last Admin: 09/13/17 21:33 Dose: 3 units Insulin Aspart (Novolog Vial Sliding Scale -) 1 vial SQ TIDAC [facility] PRN Reason: Protocol Last Admin: 09/14/17 06:30 Dose: 4 units Insulin Detemir (Levemir Vial) 20 units SQ AM [facility] Last Admin: 09/14/17 06:32 Dose: 20 units Ipratropium [place] (Atrovent 0.02% Nebulizer -) 1 amp NEB QIDR [facility] Last Admin: 09/14/17 06:01 Dose: Not Given Metoprolol Tartrate (Lopressor Injection -) 5 mg IVPUSH Q4H PRN PRN Reason: HYPERTENSION Last Admin: 09/12/17 08:30 Dose: 5 mg Ondansetron HCl (Zofran Injection) 4 mg IVPUSH Q6H PRN PRN Reason: NAUSEA Pantoprazole Sodium (Protonix Iv) 40 mg IVPUSH DAILY [facility] Last Admin: 09/14/17 09:07 Dose: 40 mg - Objective Vital Signs: Vital Signs Temperature 98.4 F 09/14/17 02:00 Pulse Rate 87 09/14/17 08:00 Respiratory Rate 21 09/14/17 09:10 Blood Pressure 148/77 09/14/17 08:00 O2 Sat by Pulse Oximetry (%) 100 09/13/17 22:53 Cardiovascular: Yes: S1, S2 Respiratory: Yes: Mechanically Ventilated Gastrointestinal: Yes: Normal Bowel Sounds, Soft Neurological: Yes: Unresponsive (-ON SDEATION) Labs: CBC, BMP 09/14/17 05:05 09/14/17 05:05 INR, PTT INR 1.06 (0.82-1.09) 09/13/17 05:10 Problem List - Problems (1) Respiratory failure Assessment/Plan: PER ICU TEAM REQUIRED INTUBATION THIS AM VENT SUPPORT NEBS IV ABX CXR Code(s): J96.90 - RESPIRATORY FAILURE, UNSP, UNSP W HYPOXIA OR HYPERCAPNIA (2) Brain metastasis Assessment/Plan: NEURO CONSULT NOTED Code(s): C79.31 - SECONDARY MALIGNANT NEOPLASM OF BRAIN (3) CVA (cerebral vascular accident) Assessment/Plan: ABOVE--SEE NEURO CONSULT CT WITH HYDROCEPHALUS NS AND NEURO ON CASE FURTHER PLAN PER NEURO--D/W DR GORDON Code(s): I63.9 - CEREBRAL INFARCTION, UNSPECIFIED (4) Metastatic colorectal cancer Code(s): C78.5 - SECONDARY MALIGNANT NEOPLASM OF LARGE INTESTINE AND RECTUM (5) Atrial fibrillation Assessment/Plan: ON CARDIZEM ON HEPARIN CARDIO ON BOARD Code(s): I48.91 - UNSPECIFIED ATRIAL FIBRILLATION (6) Diabetes Assessment/Plan: BGM Code(s): E11.9 - TYPE 2 DIABETES MELLITUS WITHOUT COMPLICATIONS
--- NOTE | 2017-09-14 13:27 | PN ---
Progress Note (short form) - Note Progress Note: pt seen an examined. chart reviewed. O/E: Constitutional: Yes: intubated Cardiovascular: Yes: S1, S2 Respiratory: Yes: Mechanically Ventilated Gastrointestinal: Yes: Soft Genitourinary: Yes: Mcdonald Present Edema: No Neurological: Yes: intubated Labs: Last Vital Signs Temp Pulse Resp BP Pulse Ox 98.4 F 87 20 148/77 100 09/14/17 02:00 09/14/17 08:00 09/14/17 11:35 09/14/17 08:00 09/13/17 22:53 CBC, BMP 09/14/17 05:05 09/14/17 05:05 Current Medications Generic Name Dose Route Start Last Admin Trade Name Freq PRN Reason Stop Dose Admin Acetylcysteine 600 mg 09/13/17 20:06 09/14/17 08:40 Mucomyst 20 Oral / Inh Use Only* NGT 09/15/17 08:01 600 mg Q12H CORDELIA Administration Albuterol/Ipratropium 1 amp 09/13/17 12:00 09/14/17 11:35 Duoneb - NEB 1 amp QIDR CORDELIA Administration Artificial Tears 1 drop 09/12/17 13:31 09/12/17 15:26 Artificial Tears OU 1 drop TID PRN Administration Eye Irritation Atorvastatin Calcium 20 mg 09/11/17 22:00 09/13/17 21:33 Lipitor - PO 20 mg HS CORDELIA Administration Dexamethasone Sodium Phosphate 4 mg 09/13/17 21:00 09/14/17 09:06 Decadron Injection - IVPUSH 4 mg Q6H-IV CORDELIA Administration Epinephrine 1 vial 09/11/17 10:21 09/12/17 09:40 S-2 NEB 1 vial Q6H PRN Administration stridor Heparin Sodium (Porcine) 1,000 unit 09/12/17 19:46 Heparin - IVPUSH PRN PRN Heparin Heparin Sodium (Porcine) 5,000 unit 09/12/17 19:46 Heparin - IVPUSH PRN PRN Heparin Hydralazine HCl 10 mg 09/11/17 10:25 09/13/17 21:33 Apresoline Injection - IVPUSH 10 mg Q6H PRN Administration HYPERTENSION Diltiazem HCl 125 mg/ Dextrose 125 mls @ 5 mls/hr 09/11/17 14:27 09/13/17 17: 52 IVPB 15 mg/hr TITR CORDELIA 15 mls/hr Protocol Administration 5 MG/HR HEPARIN SOD,PORK IN 0.45% NACL 25,000 units in 500 mls @ 20 mls/hr 09/12/17 20 :00 09/13/17 20:00 Heparin-1/2ns 25,000 Units/500 IVPB 950 units/hr TITR CORDELIA 19 mls/hr Protocol Administration 1,000 UNITS/HR CEFTRIAXONE IN IS-OSM DEXTROSE 2 gm in 50 mls @ 200 mls/hr 09/13/17 13:15 03/25 09:25 Ceftriaxone 2 Gm-D5w Bag IVPB 200 mls/hr DAILY CORDELIA Administration Propofol 1,000,000 mcg in 100 mls @ 2.51 mls/hr 09/13/17 11:45 09/14/17 12:01 Diprivan - IVPB 45 mcg/kg/min TITR CORDELIA 22.588 mls/hr Protocol Administration 5 MCG/KG/MIN Insulin Aspart 1 vial 09/11/17 22:00 09/13/17 21:33 Novolog Vial Sliding Scale - SQ 3 units HS CORDELIA Administration Protocol Insulin Aspart 1 vial 09/11/17 07:00 09/14/17 12:00 Novolog Vial Sliding Scale - SQ 4 units TIDAC [facility] Administration Protocol Insulin Detemir 20 units 09/13/17 07:00 09/14/17 06:32 Levemir Vial SQ 20 units AM CORDELIA Administration Ipratropium [place] 1 amp 09/11/17 06:00 09/14/17 06:01 Atrovent 0.02% Nebulizer - NEB Not Given QIDR [facility] Metoprolol Tartrate 5 mg 09/11/17 10:25 09/12/17 08:30 Lopressor Injection - IVPUSH 5 mg Q4H PRN Administration HYPERTENSION Ondansetron HCl 4 mg 09/11/17 02:02 Zofran Injection IVPUSH Q6H PRN NAUSEA Pantoprazole Sodium 40 mg 09/11/17 10:00 09/14/17 09:07 Protonix Iv IVPUSH 40 mg DAILY CORDELIA Administration 62 yo woman with h/o HTN, Chol, DM, ASHD, AFib and moderate renal insufficiency is s/p colectomy 2011 for colonic CA now metastatic to the lungs Recently had portal placed for chemo Rx with attempted infusion Friday AM. Soon thereafter, patient developed headache, nausea, vomiting and unsteadiness. CT of head suggested ischemic changes in the posterior fossa (left cerebellum > right) and the parietal region. MRI confirmed extensive changes including B/L cerebellar infarcts (L>>R); a left lateral medullary (brainstem) infarct, and multiple, scattered hemispheric infarcts. new lt. occipital lobe infarct on heparin drip on decadron 4mg q6h now intubated plan per icu/neuro Problem List - Problems (1) Intractable vomiting with nausea Code(s): R11.2 - NAUSEA WITH VOMITING, UNSPECIFIED Qualifiers: Vomiting type: unspecified Qualified Code(s): R11.2 - Nausea with vomiting , unspecified (2) Atrial fibrillation Code(s): I48.91 - UNSPECIFIED ATRIAL FIBRILLATION (3) Cancer, colon Code(s): C18.9 - MALIGNANT NEOPLASM OF COLON, UNSPECIFIED Qualifiers: Colon location: unspecified part of colon Qualified Code(s): C18.9 - Malignant neoplasm of colon, unspecified (4) Metastatic colorectal cancer Code(s): C78.5 - SECONDARY MALIGNANT NEOPLASM OF LARGE INTESTINE AND RECTUM
[2017-09-14] MEDS: METOPROLOL TARTRATE 5 MG/5 ML VIAL IVPUSH PRN (13:36)
[2017-09-14] MEDS: DILTIAZEM INJECTION 125 MG in DEXTROSE 5%-WATER - 100 ML IVPB SCH ×2 (14:09→21:00)
--- NOTE | 2017-09-14 17:17 | PN ---
Progress Note (short form) - Note Progress Note: Neurosurgery Follow-up Patient is currently sedated and intubated. CT scan pending. Originally consulted on this patient on Sunday September 10, [address] Arciniega. Initial Head CT did not reveal source of presenting symptoms of acute headaches, nausea, vomiting and Left Hemiparesis. Lucencies in Right Parietal lobe and Cerebellum noted. Given history of metastatic colon CA, metastatic spread to brain was high in differential diagnosis. MRI obtained without contrast due to renal concerns. No clear tumor, however multiple infarcts in the posterior fossa and parietal lobes noted. Left vertebral artery not visualized. Posterior fossa infarctions were moderate to large and associated with brain stem ischemia and fourth ventricle compression. Based upon ASA/AHA guidelines for management of cerebellar infarction, suboccipital decompression was offered to patient and family on emergent basis. Patient was going to OR for removal of infusion catheter. After patient was in OR for catheter removal and sub occipital decompression, I was informed that a dissenting opinion had been offered to the family and they were strongly encouraged not to proceed with posterior fossa decompression. I discussed the risks benefits and alternatives to sub occipital decompression in great detail with the family. I explained the guidelines which formed the basis of my recommendation and explained that delayed decompression may result in a poor outcome due to difficulty/delays in diagnosing deterioration, obtaining imaging and being able to perform such surgery particularly in light of the impending storm. The patient was more awake and alert and the family was adamant about avoiding a posterior fossa surgery. The patient was managed in the ICU after uneventful catheter removal. On the morning of September 12, the patient became obtunded and emergency CT was obtained showing worsening infarcts with more mass effect and hydrocephalus that was developing. Due to this progression and diminished mental status, I again prepared for emergency decompression of the posterior fossa. Anticoagulation was stopped and the family was summoned. The patient was given Lasix and her head was elevated. When I returned to the ICU to discuss these developments, I was told that a dissenting opinion was again offered to the family and that the patient had improved after Head elevation and diuretics. The family again declined surgery although we had a comprehensive discussion once again regarding the risks, benefits and alternatives. They accepted all responsibility for a poor outcome associated with a delay in surgery and understood that I was offering surgery based upon [place] [employer] & [place] [employer] guidelines. Although the OR was prepared and I was ready to proceed, I again cancelled the proposed surgery. On the morning of Wednesday September 13, 2017, the patient deteriorated and required intubation. The family requested transfer to [facility]. ICU COMMUNICATIONS CLERK [place] contacted the team at [facility] and reviewed the case and imaging with them. They informed him that emergency posterior fossa decompression would be the appropriate treatment. This information was shared with the family and the dissenting opinion and the familys decision were not changed. I will sign off this case at this point. Please reconsult if Neurosurgical intervention is desired.
[2017-09-14] MEDS ORDERED: HEMOQUE TEST 1 EACH EACH ONE (17:46)
--- NOTE | 2017-09-14 18:09 | PN ---
Progress Note, Physician History of Present Illness: Pt seen and examined at bedside. She remains in the ICU and remains intubated. - Current Medication List Current Medications: Active Medications Acetylcysteine (Mucomyst 20 Oral / Inh Use Only*) 600 mg NGT Q12H CORDELIA Stop: 09/15/17 08:01 Last Admin: 09/14/17 08:40 Dose: 600 mg Albuterol/Ipratropium (Duoneb -) 1 amp NEB QIDR CORDELIA Last Admin: 09/14/17 11:35 Dose: 1 amp Artificial Tears (Artificial Tears) 1 drop OU TID PRN PRN Reason: Eye Irritation Last Admin: 09/12/17 15:26 Dose: 1 drop Atorvastatin Calcium (Lipitor -) 20 mg PO HS CORDELIA Last Admin: 09/13/17 21:33 Dose: 20 mg Dexamethasone Sodium Phosphate (Decadron Injection -) 4 mg IVPUSH Q6H-IV CORDELIA Last Admin: 09/14/17 16:00 Dose: 4 mg Epinephrine (S-2) 1 vial NEB Q6H PRN PRN Reason: stridor Last Admin: 09/12/17 09:40 Dose: 1 vial Heparin Sodium (Porcine) (Heparin -) 1,000 unit IVPUSH PRN PRN PRN Reason: Heparin Heparin Sodium (Porcine) (Heparin -) 5,000 unit IVPUSH PRN PRN PRN Reason: Heparin Hydralazine HCl (Apresoline Injection -) 10 mg IVPUSH Q6H PRN PRN Reason: HYPERTENSION Last Admin: 09/13/17 21:33 Dose: 10 mg Diltiazem HCl 125 mg/ Dextrose 125 mls @ 5 mls/hr IVPB TITR CORDELIA; 5 MG/HR PRN Reason: Protocol Last Admin: 09/14/17 14:09 Dose: 15 mg/hr, 15 mls/hr HEPARIN SOD,PORK IN 0.45% NACL (Heparin-1/2ns 25,000 Units/500) 25,000 units in 500 mls @ 20 mls/hr IVPB TITR CORDELIA; 1,000 UNITS/HR PRN Reason: Protocol Last Admin: 09/13/17 20:00 Dose: 950 units/hr, 19 mls/hr CEFTRIAXONE IN IS-OSM DEXTROSE (Ceftriaxone 2 Gm-D5w Bag) 2 gm in 50 mls @ 200 mls/hr IVPB DAILY CORDELIA Last Admin: 09/14/17 09:25 Dose: 200 mls/hr Propofol (Diprivan -) 1,000,000 mcg in 100 mls @ 2.51 mls/hr IVPB TITR CORDELIA; 5 MCG/KG/MIN PRN Reason: Protocol Last Admin: 09/14/17 12:01 Dose: 45 mcg/kg/min, 22.588 mls/hr Insulin Aspart (Novolog Vial Sliding Scale -) 1 vial SQ HS [facility] PRN Reason: Protocol Last Admin: 09/13/17 21:33 Dose: 3 units Insulin Aspart (Novolog Vial Sliding Scale -) 1 vial SQ TIDAC [facility] PRN Reason: Protocol Last Admin: 09/14/17 12:00 Dose: 4 units Insulin Detemir (Levemir Vial) 20 units SQ AM [facility] Last Admin: 09/14/17 06:32 Dose: 20 units Ipratropium [place] (Atrovent 0.02% Nebulizer -) 1 amp NEB QIDR [facility] Last Admin: 09/14/17 06:01 Dose: Not Given Metoprolol Tartrate (Lopressor Injection -) 5 mg IVPUSH Q4H PRN PRN Reason: HYPERTENSION Last Admin: 09/14/17 13:36 Dose: 5 mg Ondansetron HCl (Zofran Injection) 4 mg IVPUSH Q6H PRN PRN Reason: NAUSEA Pantoprazole Sodium (Protonix Iv) 40 mg IVPUSH DAILY [facility] Last Admin: 09/14/17 09:07 Dose: 40 mg - Objective Vital Signs: Vital Signs Temperature 97.9 F 09/14/17 10:00 Pulse Rate 78 09/14/17 14:00 Respiratory Rate 20 09/14/17 16:35 Blood Pressure 148/76 09/14/17 14:00 O2 Sat by Pulse Oximetry (%) 100 09/13/17 22:53 Constitutional: Yes: Calm Cardiovascular: Yes: S1, S2 Respiratory: Yes: Mechanically Ventilated Gastrointestinal: Yes: Soft Genitourinary: Yes: Mcdonald Present Edema: No Neurological: Yes: Lethargy Labs: CBC, BMP 09/14/17 05:05 09/14/17 05:05 INR, PTT INR 1.06 (0.82-1.09) 09/13/17 05:10 Problem List - Problems (1) Brain metastasis Code(s): C79.31 - SECONDARY MALIGNANT NEOPLASM OF BRAIN (2) Headache Code(s): R51 - HEADACHE Qualifiers: Headache chronicity pattern: unspecified pattern Intractability: intractable (3) Metastatic colorectal cancer Code(s): C78.5 - SECONDARY MALIGNANT NEOPLASM OF LARGE INTESTINE AND RECTUM (4) SUSAN (acute kidney injury) Code(s): N17.9 - ACUTE KIDNEY FAILURE, UNSPECIFIED (5) Atrial fibrillation Code(s): I48.91 - UNSPECIFIED ATRIAL FIBRILLATION (6) Cancer, colon Code(s): C18.9 - MALIGNANT NEOPLASM OF COLON, UNSPECIFIED Qualifiers: Colon location: unspecified part of colon Qualified Code(s): C18.9 - Malignant neoplasm of colon, unspecified (7) Lung mass Code(s): R91.8 - OTHER NONSPECIFIC ABNORMAL FINDING OF LUNG FIELD Assessment/Plan Current Medications Generic Name Dose Route Start Last Admin Trade Name Freq PRN Reason Stop Dose Admin Acetylcysteine 600 mg 09/13/17 20:06 09/14/17 08:40 Mucomyst 20 Oral / Inh Use Only* NGT 09/15/17 08:01 600 mg Q12H CORDELIA Administration Albuterol/Ipratropium 1 amp 09/13/17 12:00 09/14/17 11:35 Duoneb - NEB 1 amp QIDR CORDELIA Administration Artificial Tears 1 drop 09/12/17 13:31 09/12/17 15:26 Artificial Tears OU 1 drop TID PRN Administration Eye Irritation Atorvastatin Calcium 20 mg 09/11/17 22:00 09/13/17 21:33 Lipitor - PO 20 mg HS CORDELIA Administration Dexamethasone Sodium Phosphate 4 mg 09/13/17 21:00 09/14/17 16:00 Decadron Injection - IVPUSH 4 mg Q6H-IV CORDELIA Administration Epinephrine 1 vial 09/11/17 10:21 09/12/17 09:40 S-2 NEB 1 vial Q6H PRN Administration stridor Heparin Sodium (Porcine) 1,000 unit 09/12/17 19:46 Heparin - IVPUSH PRN PRN Heparin Heparin Sodium (Porcine) 5,000 unit 09/12/17 19:46 Heparin - IVPUSH PRN PRN Heparin Hydralazine HCl 10 mg 09/11/17 10:25 09/13/17 21:33 Apresoline Injection - IVPUSH 10 mg Q6H PRN Administration HYPERTENSION Diltiazem HCl 125 mg/ Dextrose 125 mls @ 5 mls/hr 09/11/17 14:27 09/14/17 14: 09 IVPB 15 mg/hr TITR CORDELIA 15 mls/hr Protocol Administration 5 MG/HR HEPARIN SOD,[place] 0.45% NACL 25,000 units in 500 mls @ 20 mls/hr 09/12/17 20 :00 09/13/17 20:00 Heparin-1/2ns 25,000 Units/500 IVPB 950 units/hr TITR CORDELIA 19 mls/hr Protocol Administration 1,000 UNITS/HR CEFTRIAXONE IN IS-OSM DEXTROSE 2 gm in 50 mls @ 200 mls/hr 09/13/17 13:15 03/25 09:25 Ceftriaxone 2 Gm-D5w Bag IVPB 200 mls/hr DAILY CORDELIA Administration Propofol 1,000,000 mcg in 100 mls @ 2.51 mls/hr 09/13/17 11:45 09/14/17 12:01 Diprivan - IVPB 45 mcg/kg/min TITR CORDELIA 22.588 mls/hr Protocol Administration 5 MCG/KG/MIN Insulin Aspart 1 vial 09/11/17 22:00 09/13/17 21:33 Novolog Vial Sliding Scale - SQ 3 units HS CORDELIA Administration Protocol Insulin Aspart 1 vial 09/11/17 07:00 09/14/17 12:00 Novolog Vial Sliding Scale - SQ 4 units TIDAC [facility] Administration Protocol Insulin Detemir 20 units 09/13/17 07:00 09/14/17 06:32 Levemir Vial SQ 20 units AM CORDELIA Administration Ipratropium [place] 1 amp 09/11/17 06:00 09/14/17 06:01 Atrovent 0.02% Nebulizer - NEB Not Given QIDR CORDELIA Metoprolol Tartrate 5 mg 09/11/17 10:25 09/14/17 13:36 Lopressor Injection - IVPUSH 5 mg Q4H PRN Administration HYPERTENSION Ondansetron HCl 4 mg 09/11/17 02:02 Zofran Injection IVPUSH Q6H PRN NAUSEA Pantoprazole Sodium 40 mg 09/11/17 10:00 09/14/17 09:07 Protonix Iv IVPUSH 40 mg DAILY CORDELIA Administration Impression 1. CKD 2. SUSAN 3. DM 4. htn 5. chol 6. chemo port malfunction 7. a-fib 8. lung mass 9. proteinuria 10. adenocarcinoma 11. CVA 12. acute resp failure Plan - pt prepped for ct head with contrast - family understand the risk of RADHA - monitor creatinine - fluids and mucomyst ordered - pt has not had the scan yet - vent support - consider switching fluids to 1/2 ns - monitor blood pressure - repeat labs in am - will follow Dr Llanos
--- NOTE | 2017-09-14 18:39 | PN ---
Progress Note, Physician Chief Complaint: Patient is intubated and sedated. Tele shows intermittent afib with rapid ventricular response. Currently in sinus with frequent APCs. History of Present Illness: 62 year old woman with a PMHx of HTN, paroxysmal atrial fibrillation on apixaban , DM, HLD, CKD, GERD and colon CA s/p colectomy 2011 with mets to lung admitted with nausea and vomiting. +headache. Concern for lesion on head CT. MRI brain with metastatic disease and with acute infarcts. Tele showed intermittent rapid afib and sinus with APCs. - Current Medication List Current Medications: Active Medications Acetylcysteine (Mucomyst 20 Oral / Inh Use Only*) 600 mg NGT Q12H CORDELIA Stop: 09/15/17 08:01 Last Admin: 09/14/17 08:40 Dose: 600 mg Albuterol/Ipratropium (Duoneb -) 1 amp NEB QIDR CORDELIA Last Admin: 09/14/17 11:35 Dose: 1 amp Artificial Tears (Artificial Tears) 1 drop OU TID PRN PRN Reason: Eye Irritation Last Admin: 09/12/17 15:26 Dose: 1 drop Atorvastatin Calcium (Lipitor -) 20 mg PO HS CORDELIA Last Admin: 09/13/17 21:33 Dose: 20 mg Dexamethasone Sodium Phosphate (Decadron Injection -) 4 mg IVPUSH Q6H-IV CORDELIA Last Admin: 09/14/17 16:00 Dose: 4 mg Epinephrine (S-2) 1 vial NEB Q6H PRN PRN Reason: stridor Last Admin: 09/12/17 09:40 Dose: 1 vial Heparin Sodium (Porcine) (Heparin -) 1,000 unit IVPUSH PRN PRN PRN Reason: Heparin Heparin Sodium (Porcine) (Heparin -) 5,000 unit IVPUSH PRN PRN PRN Reason: Heparin Hydralazine HCl (Apresoline Injection -) 10 mg IVPUSH Q6H PRN PRN Reason: HYPERTENSION Last Admin: 09/13/17 21:33 Dose: 10 mg Diltiazem HCl 125 mg/ Dextrose 125 mls @ 5 mls/hr IVPB TITR CORDELIA; 5 MG/HR PRN Reason: Protocol Last Admin: 09/14/17 14:09 Dose: 15 mg/hr, 15 mls/hr HEPARIN SOD,[place] IN 0.45% NACL (Heparin-1/2ns 25,000 Units/500) 25,000 units in 500 mls @ 20 mls/hr IVPB TITR CORDELIA; 1,000 UNITS/HR PRN Reason: Protocol Last Admin: 09/13/17 20:00 Dose: 950 units/hr, 19 mls/hr CEFTRIAXONE IN IS-OSM DEXTROSE (Ceftriaxone 2 Gm-D5w Bag) 2 gm in 50 mls @ 200 mls/hr IVPB DAILY [facility] Last Admin: 09/14/17 09:25 Dose: 200 mls/hr Propofol (Diprivan -) 1,000,000 mcg in 100 mls @ 2.51 mls/hr IVPB TITR CORDELIA; 5 MCG/KG/MIN PRN Reason: Protocol Last Admin: 09/14/17 12:01 Dose: 45 mcg/kg/min, 22.588 mls/hr Insulin Aspart (Novolog Vial Sliding Scale -) 1 vial SQ HS [facility] PRN Reason: Protocol Last Admin: 09/13/17 21:33 Dose: 3 units Insulin Aspart (Novolog Vial Sliding Scale -) 1 vial SQ TIDAC [facility] PRN Reason: Protocol Last Admin: 09/14/17 18:23 Dose: 4 units Insulin Detemir (Levemir Vial) 20 units SQ AM [facility] Last Admin: 09/14/17 06:32 Dose: 20 units Ipratropium [place] (Atrovent 0.02% Nebulizer -) 1 amp NEB QIDR [facility] Last Admin: 09/14/17 06:01 Dose: Not Given Metoprolol Tartrate (Lopressor Injection -) 5 mg IVPUSH Q4H PRN PRN Reason: HYPERTENSION Last Admin: 09/14/17 13:36 Dose: 5 mg Ondansetron HCl (Zofran Injection) 4 mg IVPUSH Q6H PRN PRN Reason: NAUSEA Pantoprazole Sodium (Protonix Iv) 40 mg IVPUSH DAILY [facility] Last Admin: 09/14/17 09:07 Dose: 40 mg - Objective Vital Signs: Vital Signs Temperature 97.9 F 09/14/17 10:00 Pulse Rate 78 09/14/17 14:00 Respiratory Rate 20 09/14/17 16:35 Blood Pressure 148/76 09/14/17 14:00 O2 Sat by Pulse Oximetry (%) 100 09/13/17 22:53 Constitutional: Yes: Well Nourished, No Distress, Obese HENT: Yes: Atraumatic, Normocephalic Neck: Yes: Supple, Trachea Midline Cardiovascular: Yes: Regular Rate and Rhythm Respiratory: Yes: Regular, Intubated, Rhonchi Gastrointestinal: Yes: Normal Bowel Sounds, Soft, Abdomen, Obese ...Rectal Exam: Yes: Deferred Edema: No Peripheral Pulses WNL: Yes Labs: CBC, BMP 09/14/17 05:05 09/14/17 05:05 INR, PTT INR 1.06 (0.82-1.09) 09/13/17 05:10 Assessment/Plan 62 year old woman with a PMHx of HTN, paroxysmal atrial fibrillation on apixaban , DM, HLD, CKD, GERD and colon CA s/p colectomy 2011 with mets to lung admitted with nausea and vomiting. +headache. Concern for lesion on head CT. MRI brain with metastatic disease and with acute infarcts. 1) Paroxysmal atrial fibrillation with intermittent rapid afib and sinus rhythm on tele while on Dilt drip and Metoprolol IV. Would consider rhythm control with IV Amiodarone. May discontinue IV Dilt and metoprolol if rhythm stable. Continue IV Diltiazem and metoprolol for now. -On heparin drip as per neurology 2) HTN: systolic BP is mildly elevated. Continue IV Diltiazem and Metoprolol for now. I3) Oncology -management as per primary team On decadron
[2017-09-14] MEDS: HEPARIN SOD,PORK IN 0.45% NACL 25,000 UNITS/500 ML INFUS.BAG IVPB SCH (19:30)
--- NOTE | 2017-09-14 19:49 | CONSULT ---
Consult - text type - Consultation Consultation Note: Ophthalmology consult 62 year old woman, was agitated in the ICU and "scratched" herself in the left eye unable to check vision - pt intubated, and sedated/unresponsive P 3/3 --> 3+/3+ no APD PLE normal right eye; left eye with full 360 degrees SC heme, clear cornea Imp/Plan Subconjunctival hemorrhage left eye due to reported self-inflicted trauma while agitated - recommend tears ointment in left eye twice a day to prevent exposure , until hemorrhage resolves spontaneously
[2017-09-14] MEDS ORDERED: SODIUM CHLORIDE 1,000 ML IV SCH (20:00)
[2017-09-14] MEDS: ATORVASTATIN CA 20 MG TABLET (FP) PO SCH (21:19)
[2017-09-15] MEDS: ALBUTEROL SO4 2.5/IPRATROPIUM 0.5 INH SOL 3 ML VIAL.NEB. NEB SCH ×4 (00:37→17:32)
[2017-09-15] MEDS: DEXAMETHASONE SOD PHOSPHATE 4 MG/1 ML VIAL IVPUSH SCH ×4 (02:53→20:00)
[2017-09-15] MEDS: PROPOFOL 1,000,000 MCG/100 ML VIAL IVPB SCH ×7 (02:55→23:49)
[2017-09-15] MEDS: HEPARIN SOD,PORK IN 0.45% NACL 25,000 UNITS/500 ML INFUS.BAG IVPB SCH ×2 (03:00→20:00)
[2017-09-15] MEDS: INSULIN SLIDING SCALE (NOVOLOG) 1 VIAL SQ SCH ×4 (06:11→22:30)
[2017-09-15] MEDS: INSULIN DETEMIR 100 UNITS/ML MDV SQ SCH (06:12)
[2017-09-15] MEDS: IPRATROPIUM BR 0.02% 0.5 MG/2.5 ML VIAL.NEB. NEB SCH ×2 (06:37→12:01)
[2017-09-15] MEDS: ARTIFICIAL TEARS (POLYVINYL ALCOHOL 1.4%) OPTH DROPS OU PRN ×3 (06:42→14:19)
[2017-09-15 07:10] LABS: HEMATOCRIT 25.6 % (32.4-45.2); HEMOGLOBIN 8.1 GM/dL (10.7-15.3); MCH 25.7 pg (25.7-33.7); MCHC 31.8 g/dl (32.0-36.0); MEAN CELL VOLUME 80.8 fl (80-96); MEAN PLT VOLUME 7.8 fl (7.5-11.1); PLATELET COUNT 318 K/MM3 (134-434); RBC 3.17 M/mm3 (3.60-5.2); RDW 16.6 % (11.6-15.6); WHITE BLOOD COUNT 8.6 K/mm3 (4.0-10.0)
[2017-09-15] MEDS ORDERED: ACETYLCYSTEINE 20% 200MG/ML 4 ML VIAL *FOR ORAL / INH USE ONLY NGT SCH (08:00)
--- NOTE | 2017-09-15 09:07 | PN ---
Physical Exam: SUBJECTIVE: Patient seen and examined. Intubated and sedated following increasing agitation over the weekend. Had CT scan with contrast done yesterday. On heparin. Patient said to have spiked a temperature after rounds OBJECTIVE: Vital Signs Period Temp Pulse Resp BP Sys/Mcdaniel Pulse Ox Last 24 Hr 97.9 F-100.2 F 78-130 18-21 127-165/71-97 100-100 Vital Signs Temp 100.4 F H 09/15/17 14:00 Pulse 84 09/15/17 14:00 Resp 20 09/15/17 17:31 BP 134/72 09/15/17 14:00 Pulse Ox 100 09/15/17 09:44 Intake & Output 09/14/17 09/15/17 09/15/17 23:59 11:59 23:59 Intake Total 2342.2 1038.4 Output Total 950 700 400 Balance 1392.2 338.4 -400 Weight 87.317 kg Intake: IV 1242.2 1038.4 Cardizem Injection - 125 273 120 mg In D5w - 100 ml @ 5 MG /HR 5 mls/hr IVPB TITR CORDELIA Rx#:[id number] DIPRIVAN - 1,000,000 mcg 381.2 182.4 In 100 ml @ 5 MCG/KG/MIN 2.51 mls/hr IVPB TITR CORDELIA Rx#:[id number] HEPARIN-1/2NS 25,000 288 136 UNITS/500 25,000 units In 500 ml @ 1,000 UNITS/HR 20 mls/hr IVPB TITR CORDELIA Rx#:[id number] Normal Saline - 1,000 ml 300 600 @ 75 mls/hr IV ASDIR CORDELIA Rx#:[id number] IVPB 1100 0 Output: Urine 950 700 400 Bateman 950 700 400 Other: Voiding Method Indwelling Catheter Indwelling Catheter Bowel Movement No No Weight Measurement Method Built in [facility] GENERAL: The patient is sedated and intubated- TV-450, PEEP-5, ct14-938%( increased during transport for CT head yesterday), HEAD: Bruise over L eye (patient when agitated scratched herself) EYES: L eye ecchymosis ENT: intubated. NECK: supple. LUNGS: mechanical Breath sounds bilaterally, L>R. HEART: S1, S2, controlled rate. ABDOMEN: Soft, nondistended, bowel sounds+ EXTREMITIES: 2+ pulses, warm, well-perfused, no edema. NEUROLOGICAL:intubated and sedated PSYCH: Cannot be assessed Lines: ETT, LUE peripheral line, NGT, bateman Laboratory Results - last 24 hr 09/14/17 09/14/17 09/14/17 11:27 17:54 21:11 WBC RBC Hgb Hct MCV MCH MCHC RDW Plt Count MPV PTT (Actin FS) POC Glucometer 264.58470 283.02871 206.01053 09/15/17 09/15/17 09/15/17 01:10 01:45 05:10 WBC 8.6 RBC 3.17 L Hgb 8.1 L Hct 25.6 L MCV 80.8 MCH 25.7 MCHC 31.8 L RDW 16.6 H Plt Count 318 MPV 7.8 PTT (Actin FS) 68.0 H D POC Glucometer 230.86770 09/15/17 05:10 WBC RBC Hgb Hct MCV MCH MCHC RDW Plt Count MPV PTT (Actin FS) 62.4 H POC Glucometer Active Medications Generic Name Dose Route Start Last Admin Trade Name Freq PRN Reason Stop Dose Admin Acetylcysteine 600 mg 09/15/17 08:00 Mucomyst 20 Oral / Inh Use Only* NGT 09/15/17 20:01 Q12H CORDELIA Albuterol/Ipratropium 1 amp 09/13/17 12:00 09/15/17 06:38 Duoneb - NEB 1 amp QIDR CORDELIA Administration Artificial Tears 1 drop 09/12/17 13:31 09/15/17 06:42 Artificial Tears OU 1 drop TID PRN Administration Eye Irritation Atorvastatin Calcium 20 mg 09/11/17 22:00 09/14/17 21:19 Lipitor - PO 20 mg HS CORDELIA Administration Dexamethasone Sodium Phosphate 4 mg 09/13/17 21:00 09/15/17 02:53 Decadron Injection - IVPUSH 4 mg Q6H-IV CORDELIA Administration Epinephrine 1 vial 09/11/17 10:21 09/12/17 09:40 S-2 NEB 1 vial Q6H PRN Administration stridor Heparin Sodium (Porcine) 1,000 unit 09/12/17 19:46 Heparin - IVPUSH PRN PRN Heparin Heparin Sodium (Porcine) 5,000 unit 09/12/17 19:46 Heparin - IVPUSH PRN PRN Heparin Hydralazine HCl 10 mg 09/11/17 10:25 09/13/17 21:33 Apresoline Injection - IVPUSH 10 mg Q6H PRN Administration HYPERTENSION Diltiazem HCl 125 mg/ Dextrose 125 mls @ 5 mls/hr 09/11/17 14:27 09/14/17 21: 00 IVPB 15 mg/hr TITR CORDELIA 15 mls/hr Protocol Administration 5 MG/HR HEPARIN SOD,PORK IN 0.45% NACL 25,000 units in 500 mls @ 20 mls/hr 09/12/17 20 :00 09/15/17 03:00 Heparin-1/2ns 25,000 Units/500 IVPB 850 units/hr TITR CORDELIA 17 mls/hr Protocol Administration 1,000 UNITS/HR CEFTRIAXONE IN IS-OSM DEXTROSE 2 gm in 50 mls @ 200 mls/hr 09/13/17 13:15 03/25 09:25 Ceftriaxone 2 Gm-D5w Bag IVPB 200 mls/hr DAILY CORDELIA Administration Propofol 1,000,000 mcg in 100 mls @ 2.51 mls/hr 09/13/17 11:45 09/15/17 06:14 Diprivan - IVPB 45 mcg/kg/min TITR CORDELIA 22.588 mls/hr Protocol Administration 5 MCG/KG/MIN Sodium Chloride 1,000 mls @ 75 mls/hr 09/14/17 20:00 09/14/17 20:43 Normal Saline - IV 75 mls/hr ASDIR CORDELIA Administration Insulin Aspart 1 vial 09/11/17 22:00 09/14/17 21:18 Novolog Vial Sliding Scale - SQ 2 units HS CORDELIA Administration Protocol Insulin Aspart 1 vial 09/11/17 07:00 09/15/17 06:11 Novolog Vial Sliding Scale - SQ 8 units TIDAC CORDELIA Administration Protocol Insulin Detemir 20 units 09/13/17 07:00 09/15/17 06:12 Levemir Vial SQ 20 units AM CORDELIA Administration Ipratropium [place] 1 amp 09/11/17 06:00 09/15/17 06:37 Atrovent 0.02% Nebulizer - NEB 1 amp QIDR CORDELIA Administration Metoprolol Tartrate 5 mg 09/11/17 10:25 09/14/17 13:36 Lopressor Injection - IVPUSH 5 mg Q4H PRN Administration HYPERTENSION Ondansetron HCl 4 mg 09/11/17 02:02 Zofran Injection IVPUSH Q6H PRN NAUSEA Pantoprazole Sodium 40 mg 09/11/17 10:00 09/14/17 09:07 Protonix Iv IVPUSH 40 mg DAILY CORDELIA Administration Potassium Phos/Sodium Phos 1 packet 09/15/17 10:00 Phos-Nak Packet - NGT BID CORDELIA ASSESSMENT/PLAN: 62 yo F with PMHx of HTN, paroxysmal atrial fibrillation on apixaban, DM, HLD, CKD, GERD and colon CA s/p colectomy 2011 with mets to lung admitted to ICU for AMS with brain lesions on imaging ID: Temperature spike today-temp 101.3 Blood, urine, sputum culture ID consult- Dr Mcguire Iv tylenol 1000mg stat Neuro:. AMS 10/10 to cerebral edema from multiple acute infarcts with background Afib Family declined posterior decompression on Tuesday 09/12 Medical management initiated with heparin gtt Sedated- propofol this am@45/mcg/kg/hr Patient decompensated and became agitiated and had to be intubated CT head w/o contrast for tomorrow 09/16 Dr uPlido on board-suggested venticulostomy/Second opinion Dr Goff-Neurosurgeon recommendations- Head CT 1-3: B PICA infarct L > R with mild 4th ventricular impingement MRI Brain 1-3: L > R PICA acute infarct; multifocal T2/FLAIR hyperintensity of periveventricular, R temporal, G parietal, L frontal, L BG, L occipital regions c/w small acute embolic strokes; some smaller foci of hemorrhages within the ischemic zones supratentorially near R parietal region Head CT 1-5, 1-6, 1-7: Evolving and new extensive L medial occipital ischemic stroke; multiple B parietal smaller infarcts more prominent lateral and third ventricles; no enhancing lesion to suggest mets B multiple vascular territory (anterior and posterior circulation) ischemic stroke with altered mental status, likely cardio-embolic with mild obstructive HCP Even if posterior fossa is decompressed and EVD placed, the prognosis will be extremely poor given the multiple territory ongoing embolic stroke, likelihood of further embolic event rony off AC and under general anesthesia, and underlying IDDM/rectal CA with pulmonary mets Ventricular drain alone can cause upward herniation and would not recommend that as a standalone tx At this time, 3 days after initial embolic events including L SLEEP TECHNOLOGIST infarct, and 5 days after L PICA and other supratentorial MCA smaller infarcts, the edema and mass effect likely are nearing their peaks and could start to stabilize Mannitol not possible given renal dysfunction Will leave to family to decide course of care with the above circumstances Renal: SUSAN on CKD hypernatremia Patient rehydrated s/p contrast, back to baseline renal function Switch from normal saline to 1/2 normal saline @75ml/hr-per Dr Llanos Monitor lytes, replete CMP,Mg, Phosphorus Metabolic/Endocrine/GI/Lines: DM BGMs ISS For tube feeding-NGT to be adjusted Non Destructive Evaluation Specialist on board Decadron 4mg ivpush Q6H ETT, LUE peripheral line, NGT, bateman Cardio: Htn HLD Afib heparin drip -20mls/hr iv metoprolol prn -5mg cardizem drip-125mg@ 15/hr Hemonc: Colorectal cancer with lung mets D/W Dr Guadalupe over phone- patient started being managed following lung metastasis, the team had not done the initial work up for the colorectal cancer D/W Dr Han over phone- Initial diagnosis about 7 years ago was of local primary rectal cancer which was treated and then patient never followed up until Aug 2017 when the lung mets were identified Only metastasis to the lungs had been identified and patient was to have received chemotherapy before the failed chemoport No diagnosis of brain mets had been made prior 09/10/17- MRI documented lesions which could be metastasis to the brain or infarcts Respiratory: Acute hypoxic resp failure- VCV-AC- Intubated and [id number], PEEP-5, [id number]%(increased when unstable during transport for CT head) Racemic epi for stridor- D/c (intubated) Celestine nebs-1amp Prophylaxis: on heparin gtt protonix 40mg ivpush bid Dispo: Poor prognosis Dr Kaplan updated family cont ICU care Visit type - Emergency Visit Emergency Visit: Yes ED Registration Date: 09/10/17 Care time: The patient presented to the Emergency Department on the above date and was hospitalized for further evaluation of their emergent condition. - New Patient This patient is new to me today: No - Critical Care Critical Care patient: Yes Total Critical Care Time (in minutes): 55 Critical Care Statement: The care of this patient involved high complexity decision making to prevent further life threatening deterioration of the patient 's condition and/or to evaluate & treat vital organ system(s) failure or risk of failure. - Discharge Referral Referred to [facility] No
[2017-09-15 09:48] LABS: ALBUMIN 2.3 g/dl (3.4-5.0); ANION GAP 10 (8-16); BILIRUBIN,TOTAL 0.3 mg/dL (0.2-1.0); BLOOD UREA NITROGEN 45 mg/dL (7-18); CALCIUM 7.5 mg/dL (8.5-10.1); CHLORIDE 119 mmol/L (98-107); CO2 17 mmol/L (21-32); CREATININE 1.8 mg/dL (0.55-1.02); MAGNESIUM 2.8 mg/dL (1.8-2.4); PHOSPHOROUS 3.2 mg/dL (2.5-4.9); POTASSIUM 4.3 mmol/L (3.5-5.1); SGOT/AST 13 U/L (15-37); SGPT/ALT 13 U/L (12-78); SODIUM 146 mmol/L (136-145); TOT PROT 5.4 g/dl (6.4-8.2)
[2017-09-15 09:49] LABS: ALK PHOS 105 U/L (45-117)
[2017-09-15 09:56] LABS: GLUCOSE,RANDOM 324 mg/dL (74-106)
[2017-09-15] MEDS: CEFTRIAXONE IN IS-OSM DEXTROSE 2 GM/50 ML BAG IVPB SCH (10:26)
[2017-09-15] MEDS: PANTOPRAZOLE SODIUM 40 MG VIAL IVPUSH SCH (10:27)
[2017-09-15 11:40] LABS: ARTERIAL BLD GAS O2 SATURATION 99.5 % (90-98.9); ARTERIAL BLOOD GAS BASE EXCESS -6.3 meq/l (-2-2); ARTERIAL BLOOD GAS pH 7.43 (7.35-7.45)
[2017-09-15 11:43] LABS: ALLENS TEST POSITIVE
[2017-09-15] MEDS: ACETAMINOPHEN 1000 MG/100 ML VIAL (NON FORMULARY) IVPB PRN (12:30)
--- NOTE | 2017-09-15 12:34 | PN ---
Progress Note (short form) - Note Progress Note: ID consult dictated d/w critical care MD asked to see for fever to 101 today she was admitted on 09/09 with nausea and vomiting she was found to have multiple CVA on brain MRI her port was removed 09/11 (nonfunctioning) she deteriorated and was intubated on she was started on ceftriaxone 09/13 on cardizem drip and sedation Fever CVA ?pneumonia ?central fever afib colon cancer with lung mets renal insufficiency repeat cultures vancomycin/zosyn overall prognosis is poor
--- NOTE | 2017-09-15 12:37 | PN ---
Teaching Attending Note Name of Resident: Lisa Mott ATTENDING PHYSICIAN STATEMENT I saw and evaluated the patient. I reviewed the resident's note and discussed the case with the resident. I agree with the resident's findings and plan as documented. SUBJECTIVE: Patient seen and examined in the ICU. Intubated and sedated. AC Mode of vent, 80% FiO2. CT Head D/W Neuro. He will ask for a second opinion from another Neurosurgeon about the benefit of ventricular drain due to the CT Head yesterday showing increasing hydrocephalus and ventricles. Intake & Output 09/12/17 09/13/17 09/14/17 09/15/17 23:59 23:59 23:59 23:59 Intake Total 2317 2234 3938.2 1038.4 Output Total 3000 1500 1150 700 Balance -799 174 9989.2 338.4 Weight 186 lb 1.122 oz 184 lb 7 oz 188 lb 11.451 oz 192 lb 8 oz Last Vital Signs Temp Pulse Resp BP Pulse Ox 101 F H 89 20 141/76 100 09/15/17 10:00 09/15/17 10:00 09/15/17 11:59 09/15/17 10:00 09/15/17 09:44 Active Medications Acetaminophen (Ofirmev Injection -) 1,000 mg IVPB Q6H PRN PRN Reason: FEVER OR PAIN Last Admin: 09/15/17 12:30 Dose: 1,000 mg Acetylcysteine (Mucomyst 20 Oral / Inh Use Only*) 600 mg NGT Q12H CORDELIA Stop: 09/15/17 20:01 Albuterol/Ipratropium (Duoneb -) 1 amp NEB QIDR CORDELIA Last Admin: 09/15/17 12:01 Dose: 1 amp Artificial Tears (Artificial Tears) 1 drop OU TID PRN PRN Reason: Eye Irritation Last Admin: 09/15/17 06:42 Dose: 1 drop Atorvastatin Calcium (Lipitor -) 20 mg PO HS CORDELIA Last Admin: 09/14/17 21:19 Dose: 20 mg Chlorhexidine Gluconate (Hibiclens For Decolonization -) 1 applic TP HS [facility] Dexamethasone Sodium Phosphate (Decadron Injection -) 4 mg IVPUSH Q6H-IV CORDELIA Last Admin: 09/15/17 10:00 Dose: 4 mg Epinephrine (S-2) 1 vial NEB Q6H PRN PRN Reason: stridor Last Admin: 09/12/17 09:40 Dose: 1 vial Heparin Sodium (Porcine) (Heparin -) 1,000 unit IVPUSH PRN PRN PRN Reason: Heparin Heparin Sodium (Porcine) (Heparin -) 5,000 unit IVPUSH PRN PRN PRN Reason: Heparin Hydralazine HCl (Apresoline Injection -) 10 mg IVPUSH Q6H PRN PRN Reason: HYPERTENSION Last Admin: 09/13/17 21:33 Dose: 10 mg Diltiazem HCl 125 mg/ Dextrose 125 mls @ 5 mls/hr IVPB TITR CORDELIA; 5 MG/HR PRN Reason: Protocol Last Admin: 09/14/17 21:00 Dose: 15 mg/hr, 15 mls/hr HEPARIN SOD,PORK IN 0.45% NACL (Heparin-1/2ns 25,000 Units/500) 25,000 units in 500 mls @ 20 mls/hr IVPB TITR CORDELIA; 1,000 UNITS/HR PRN Reason: Protocol Last Admin: 09/15/17 03:00 Dose: 850 units/hr, 17 mls/hr Propofol (Diprivan -) 1,000,000 mcg in 100 mls @ 2.51 mls/hr IVPB TITR CORDELIA; 5 MCG/KG/MIN PRN Reason: Protocol Last Admin: 09/15/17 11:57 Dose: Not Given Sodium Chloride (Normal Saline -) 1,000 mls @ 75 mls/hr IV ASDIR CORDEILA Last Admin: 09/14/17 20:43 Dose: 75 mls/hr Vancomycin HCl 1,250 mg/ (Dextrose) 250 mls @ 250 mls/hr IVPB ONCE ONE PRN Reason: Protocol Stop: 09/15/17 13:36 Insulin Aspart (Novolog Vial Sliding Scale -) 1 vial SQ HS CORDELIA PRN Reason: Protocol Last Admin: 09/14/17 21:18 Dose: 2 units Insulin Aspart (Novolog Vial Sliding Scale -) 1 vial SQ TIDAC CORDELIA PRN Reason: Protocol Last Admin: 09/15/17 11:57 Dose: 8 units Insulin Detemir (Levemir Vial) 20 units SQ AM CORDELIA Last Admin: 09/15/17 06:12 Dose: 20 units Ipratropium [place] (Atrovent 0.02% Nebulizer -) 1 amp NEB QIDR [facility] Last Admin: 09/15/17 12:01 Dose: Not Given Metoprolol Tartrate (Lopressor Injection -) 5 mg IVPUSH Q4H PRN PRN Reason: HYPERTENSION Last Admin: 09/14/17 13:36 Dose: 5 mg Mupirocin (Bactroban Ointment (For Decolonization) -) 1 applic NS BID [facility] Stop: 09/20/17 12:14 Ondansetron HCl (Zofran Injection) 4 mg IVPUSH Q6H PRN PRN Reason: NAUSEA Pantoprazole Sodium (Protonix Iv) 40 mg IVPUSH DAILY [facility] Last Admin: 09/15/17 10:27 Dose: 40 mg Potassium Phos/Sodium Phos (Phos-Nak Packet -) 1 packet NGT BID [facility] Constitutional: Yes: Intubated and sedated Eyes: Yes: pupil equal and reactive HENT: Yes: Other (surgical sites on neck/ chest dressing clean/ dry/ intact) Neck: Yes: Supple Cardiovascular: Yes: Regular Rate and Rhythm, S1, S2 Respiratory: Yes: Diminished, scattered rhonchi Gastrointestinal: Yes: Soft Extremities: Yes: WNL Edema: No Peripheral Pulses WNL: Yes Wound/Incision: Yes: Dressing Dry and Intact Neurological: Yes: Sedated Labs: Laboratory Results - last 24 hr 09/14/17 09/14/17 09/15/17 17:54 21:11 01:10 WBC RBC Hgb Hct MCV MCH MCHC RDW Plt Count MPV PTT (Actin FS) 68.0 H D Puncture Site ABG pH ABG pCO2 at Pt Temp ABG pO2 at Pt Temp ABG HCO3 ABG O2 Sat (Measured) ABG O2 Content ABG Base Excess Addy Test O2 Delivery Device Oxygen Flow Rate Vent Mode Vent Rate Mechanical Rate PEEP Pressure Support Vent Sodium Potassium Chloride Carbon Dioxide Anion Gap BUN Creatinine Creat Clearance w eGFR POC Glucometer 283.74287 206.20730 Random Glucose Calcium Phosphorus Magnesium Total Bilirubin AST ALT Alkaline Phosphatase Total Protein Albumin 09/15/17 09/15/17 09/15/17 01:45 05:10 05:10 WBC 8.6 RBC 3.17 L Hgb 8.1 L Hct 25.6 L MCV 80.8 MCH 25.7 MCHC 31.8 L RDW 16.6 H Plt Count 318 MPV 7.8 PTT (Actin FS) 62.4 H Puncture Site ABG pH ABG pCO2 at Pt Temp ABG pO2 at Pt Temp ABG HCO3 ABG O2 Sat (Measured) ABG O2 Content ABG Base Excess Addy Test O2 Delivery Device Oxygen Flow Rate Vent Mode Vent Rate Mechanical Rate PEEP Pressure Support Vent Sodium Potassium Chloride Carbon Dioxide Anion Gap BUN Creatinine Creat Clearance w eGFR POC Glucometer 230.61854 Random Glucose Calcium Phosphorus Magnesium Total Bilirubin AST ALT Alkaline Phosphatase Total Protein Albumin 09/15/17 09/15/17 09/15/17 05:10 05:10 06:03 WBC RBC Hgb Hct MCV MCH MCHC RDW Plt Count MPV PTT (Actin FS) Puncture Site ABG pH ABG pCO2 at Pt Temp ABG pO2 at Pt Temp ABG HCO3 ABG O2 Sat (Measured) ABG O2 Content ABG Base Excess Addy Test O2 Delivery Device Oxygen Flow Rate Vent Mode Vent Rate Mechanical Rate PEEP Pressure Support Vent Sodium 146 H Potassium 4.3 Chloride 119 H Carbon Dioxide 17 L Anion Gap 10 BUN 45 H Creatinine 1.8 H Creat Clearance w eGFR 28.70 POC Glucometer 351.84620 Random Glucose 324 H* D Calcium 7.5 L Phosphorus Cancelled 3.2 D Magnesium Cancelled 2.8 H Total Bilirubin 0.3 D AST 13 L D ALT 13 Alkaline Phosphatase 105 Total Protein 5.4 L Albumin 2.3 L 09/15/17 09/15/17 11:30 11:38 WBC RBC Hgb Hct MCV MCH MCHC RDW Plt Count MPV PTT (Actin FS) Puncture Site Right radial ABG pH 7.43 ABG pCO2 at Pt Temp 26.0 L ABG pO2 at Pt Temp 237.0 H* ABG HCO3 16.8 L ABG O2 Sat (Measured) 99.5 H ABG O2 Content 11.0 L ABG Base Excess -6.3 L Addy Test Positive O2 Delivery Device Other Oxygen Flow Rate 80% Vent Mode Ak Vent Rate 20 Mechanical Rate Espirit PEEP 5.0 Pressure Support Vent 450 Sodium Potassium Chloride Carbon Dioxide Anion Gap BUN Creatinine Creat Clearance w eGFR POC Glucometer 363.72823 Random Glucose Calcium Phosphorus Magnesium Total Bilirubin AST ALT Alkaline Phosphatase Total Protein Albumin Problem List - Problems (1) Hypercapnia Code(s): R06.89 - OTHER ABNORMALITIES OF BREATHING (2) Brain metastasis Code(s): C79.31 - SECONDARY MALIGNANT NEOPLASM OF BRAIN (3) Headache Code(s): R51 - HEADACHE Qualifiers: Headache chronicity pattern: unspecified pattern Intractability: intractable (4) Intractable vomiting with nausea Code(s): R11.2 - NAUSEA WITH VOMITING, UNSPECIFIED Qualifiers: Vomiting type: unspecified Qualified Code(s): R11.2 - Nausea with vomiting , unspecified (5) Metastatic colorectal cancer Code(s): C78.5 - SECONDARY MALIGNANT NEOPLASM OF LARGE INTESTINE AND RECTUM (6) Atrial fibrillation Code(s): I48.91 - UNSPECIFIED ATRIAL FIBRILLATION (7) Diabetes mellitus, insulin dependent (IDDM), uncontrolled Code(s): E10.65 - TYPE 1 DIABETES MELLITUS WITH HYPERGLYCEMIA (8) HLD (hyperlipidemia) Code(s): E78.5 - HYPERLIPIDEMIA, UNSPECIFIED (9) HTN (hypertension) Code(s): I10 - ESSENTIAL (PRIMARY) HYPERTENSION Assessment/Plan Repeat CT Head Neurology to discuss with Neurosurgery Aspiration precautions Sedate for vent synchrony with sedation vacations to assess Neuro status IV Heparin Cardizem drip for rate control Glycemic control PPI If no intervention planned -> start enteral feeds Dr Kaplan Critical care time spent in reviewing chart, evaluating patient and formulating plan - 40 minutes.
--- NOTE | 2017-09-15 12:39 | PN ---
Progress Note (short form) - Note Progress Note: NEUROLOGICAL FOLLOW-UP: Events and CT scans reviewed. Case discussed with Dr. Kaplan and the ICU housestaff. Pt. remains intubated and on Propofol drip. Repeat CT of head (C-/C+) reviewed and discussed with the on-call radiologist last night. No enhancing lesions suggestive of metastases. No hemorrhagic changes. Stable posterior circulation CVA's involving the cerebellum (L>R), left medulla, Left occipital and right parietal regions. Increasing hydrocephalus, obscuration of the foramena of [place] and [place] and obscuration of cortical gyral/sulcal pattern. EXAM: Intubate. On Propofol Opens eyes to sternal pressure. Shallow spontaneous respirations. Left scleral hemorrhage. Pupils asymmetrical but reactive. Withdraws both arms slightly from pinch. IMP: Difficult to fully assess on Propofol but no obvious signs of herniation CT shows stable garcia and NO EVIDENCE of metastatic disease. Increasing hydrocephalus due to cerebellar outflow obstruction is troubling. SUGGEST: Continue current management. Await today's PTT (yesterday's was elevated at 107.2). Continue heparin and decadron. Neurosurgical second opinion to follow patient with us for possible ventriculostomy. Prognosis remains guarded. Thank you very much, Daniel Pulido MD
[2017-09-15] MEDS ORDERED: PIPERACILLIN/TAZOB 3.375 GM/50 ML PRE-DOCKED IVPB SCH (12:45)
[2017-09-15] MEDS ORDERED: VANCOMYCIN 1,250 MG in DEXTROSE 5%-WATER - 250 ML IVPB ONE (13:00)
[2017-09-15] MEDS ORDERED: PT OWN MED DRAWER 7, Y5N ONE ×3 (14:04→22:58)
[2017-09-15] MEDS: NAPH,MB-DB/K PH,MBDB POWDER PACKET NGT SCH ×2 (14:07→21:19)
[2017-09-15] MEDS: PIPERACILLIN/TAZOB 3.375 GM 3.375 GM in DEXTROSE 5%-WATER - 100 ML IVPB SCH ×2 (14:07→18:57)
[2017-09-15] MEDS: MUPIROCIN 2% TOPICAL OINTMENT FOR DECOLONIZATION NS SCH ×2 (14:09→22:50)
--- NOTE | 2017-09-15 14:44 | PN ---
Progress Note (short form) - Note Progress Note: NEUROSURGERY SECOND OPINION DICTATED H/o rectal CA with lungs mets Chart reviewed D/w Dr. Kaplan and ICU team in detail Events and time line noted Afib on cardizem drip PE: Intubated, on propofol HEENT- NC/AT; Neck- no bruit; Cor- Irreg; Lungs- decreased BS at bases; Abd- benign; Ext- mild edema Eyes open to pain, not following command CN- R pupil 8 mm minimally responsive; L pupil 4-2.5 mm; + gag; Motor- minimal withdrawal to pain; Sensory- difficult to assess fully, DTR- 1+; toes downgoing WBC 8.6, Hgb 8.1 Cr 1.8, BUN 45; PT 62.[address] 1-3: B PICA infarct L > R with mild 4th ventricular impingement MRI Brain 1-3: L > R PICA acute infarct; multifocal T2/FLAIR hyperintensity of periveventricular, R temporal, G parietal, L frontal, L BG, L occipital regions c/w small acute embolic strokes; some smaller foci of hemorrhages within the ischemic zones supratentorially near R parietal region Head CT 1-5, 1-6, 1-7: Evolving and new extensive L medial occipital ischemic stroke; multiple B parietal smaller infarcts more prominent lateral and third ventricles; no enhancing lesion to suggest mets B multiple vascular territory (anterior and posterior circulation) ischemic stroke with altered mental status, likely cardio-embolic with mild obstructive HCP Even if posterior fossa is decompressed and EVD placed, the prognosis will be extremely poor given the multiple territory ongoing embolic stroke, likelihood of further embolic event rony off AC and under general anesthesia, and underlying IDDM/rectal CA with pulmonary mets Ventricular drain alone can cause upward herniation and would not recommend that as a standalone tx At this time, 3 days after initial embolic events including L RECEIVING MANAGER infarct, and 5 days after large L PICA and other supratentorial MCA smaller infarcts, the edema and mass effect likely are nearing their peaks and could start to stabilize Mannitol not possible given renal dysfunction Will leave to family to decide course of care with the above circumstances Care per primary treating team
[2017-09-15] MEDS ORDERED: POTASSIUM CHLORIDE 10 MEQ in SODIUM CHLORIDE 0.45% 1,000 ML IVPB SCH (14:45)
--- NOTE | 2017-09-15 15:06 | PN ---
Progress Note, Physician Chief Complaint: seen in icu patient intubated and sedated dr Goff seeing patient for second opinion - Current Medication List Current Medications: Active Medications Acetaminophen (Ofirmev Injection -) 1,000 mg IVPB Q6H PRN PRN Reason: FEVER OR PAIN Last Admin: 09/15/17 12:30 Dose: 1,000 mg Acetylcysteine (Mucomyst 20 Oral / Inh Use Only*) 600 mg NGT Q12H [facility] Stop: 09/15/17 20:01 Albuterol/Ipratropium (Duoneb -) 1 amp NEB QIDR [facility] Last Admin: 09/15/17 12:01 Dose: 1 amp Artificial Tears (Artificial Tears) 1 drop OU TID PRN PRN Reason: Eye Irritation Last Admin: 09/15/17 14:19 Dose: 1 drop Atorvastatin Calcium (Lipitor -) 20 mg PO HS [facility] Last Admin: 09/14/17 21:19 Dose: 20 mg Chlorhexidine Gluconate (Hibiclens For Decolonization -) 1 applic TP HS [facility] Chlorhexidine Gluconate (Peridex -) 15 ml MM BID [facility] Dexamethasone Sodium Phosphate (Decadron Injection -) 4 mg IVPUSH Q6H-IV [facility] Last Admin: 09/15/17 14:08 Dose: 4 mg Heparin Sodium (Porcine) (Heparin -) 1,000 unit IVPUSH PRN PRN PRN Reason: Heparin Heparin Sodium (Porcine) (Heparin -) 5,000 unit IVPUSH PRN PRN PRN Reason: Heparin Hydralazine HCl (Apresoline Injection -) 10 mg IVPUSH Q6H PRN PRN Reason: HYPERTENSION Last Admin: 09/13/17 21:33 Dose: 10 mg Diltiazem HCl 125 mg/ Dextrose 125 mls @ 5 mls/hr IVPB TITR [facility]; 5 MG/HR PRN Reason: Protocol Last Admin: 09/14/17 21:00 Dose: 15 mg/hr, 15 mls/hr HEPARIN SOD,PORK IN 0.45% NACL (Heparin-1/2ns 25,000 Units/500) 25,000 units in 500 mls @ 20 mls/hr IVPB TITR [facility]; 1,000 UNITS/HR PRN Reason: Protocol Last Admin: 09/15/17 03:00 Dose: 850 units/hr, 17 mls/hr Propofol (Diprivan -) 1,000,000 mcg in 100 mls @ 2.51 mls/hr IVPB TITR [facility]; 5 MCG/KG/MIN PRN Reason: Protocol Last Admin: 09/15/17 14:46 Dose: 45 mcg/kg/min, 22.588 mls/hr Piperacillin Sod/Tazobactam (Sod 3.375 gm/ Dextrose) 100 mls @ 200 mls/hr IVPB Q8H-IV [facility] Last Admin: 09/15/17 14:07 Dose: 200 mls/hr Potassium Chloride 10 meq/ (Sodium Chloride) 1,005 mls @ 75 mls/hr IVPB Q13H [facility] Insulin Aspart (Novolog Vial Sliding Scale -) 1 vial SQ HS [facility] PRN Reason: Protocol Last Admin: 09/14/17 21:18 Dose: 2 units Insulin Aspart (Novolog Vial Sliding Scale -) 1 vial SQ TIDAC [facility] PRN Reason: Protocol Last Admin: 09/15/17 11:57 Dose: 8 units Insulin Detemir (Levemir Vial) 20 units SQ AM [facility] Last Admin: 09/15/17 06:12 Dose: 20 units Metoprolol Tartrate (Lopressor Injection -) 5 mg IVPUSH Q4H PRN PRN Reason: HYPERTENSION Last Admin: 09/14/17 13:36 Dose: 5 mg Mupirocin (Bactroban Ointment (For Decolonization) -) 1 applic NS BID [facility] Stop: 09/20/17 12:14 Last Admin: 09/15/17 14:09 Dose: 1 applic Ondansetron HCl (Zofran Injection) 4 mg IVPUSH Q6H PRN PRN Reason: NAUSEA Pantoprazole Sodium (Protonix Iv) 40 mg IVPUSH DAILY [facility] Last Admin: 09/15/17 10:27 Dose: 40 mg Potassium Phos/Sodium Phos (Phos-Nak Packet -) 1 packet NGT BID [facility] Last Admin: 09/15/17 14:07 Dose: 1 packet - Objective Vital Signs: Vital Signs Temperature 101 F H 09/15/17 10:00 Pulse Rate 87 09/15/17 12:00 Respiratory Rate 20 09/15/17 14:51 Blood Pressure 137/74 09/15/17 12:00 O2 Sat by Pulse Oximetry (%) 100 09/15/17 09:44 Constitutional: Yes: Other (sedated) Cardiovascular: Yes: Regular Rate and Rhythm, S1, S2 Respiratory: Yes: Mechanically Ventilated Gastrointestinal: Yes: Normal Bowel Sounds, Soft Labs: CBC, BMP 09/15/17 05:10 09/15/17 05:10 INR, PTT INR 1.06 (0.82-1.09) 09/13/17 05:10 Assessment/Plan temp 101.3 hylton culture, ID note appreciated hydrocephalus seen on the CT head FARHANA consulted for second opinion DR Goff to see patient afib : patient on heparin drip and iv metoprolol prn and cardizem drip multiple CVA with resp failure and intubated DM on insulin
--- NOTE | 2017-09-15 15:27 | PN ---
Progress Note, Physician History of Present Illness: Pt seen and examined at bedside. She remains in the ICU. Pt remains intubated. - Current Medication List Current Medications: Active Medications Acetaminophen (Ofirmev Injection -) 1,000 mg IVPB Q6H PRN PRN Reason: FEVER OR PAIN Last Admin: 09/15/17 12:30 Dose: 1,000 mg Acetylcysteine (Mucomyst 20 Oral / Inh Use Only*) 600 mg NGT Q12H [facility] Stop: 09/15/17 20:01 Albuterol/Ipratropium (Duoneb -) 1 amp NEB QIDR [facility] Last Admin: 09/15/17 12:01 Dose: 1 amp Artificial Tears (Artificial Tears) 1 drop OU TID PRN PRN Reason: Eye Irritation Last Admin: 09/15/17 14:19 Dose: 1 drop Atorvastatin Calcium (Lipitor -) 20 mg PO HS [facility] Last Admin: 09/14/17 21:19 Dose: 20 mg Chlorhexidine Gluconate (Hibiclens For Decolonization -) 1 applic TP HS [facility] Chlorhexidine Gluconate (Peridex -) 15 ml MM BID [facility] Dexamethasone Sodium Phosphate (Decadron Injection -) 4 mg IVPUSH Q6H-IV [facility] Last Admin: 09/15/17 14:08 Dose: 4 mg Heparin Sodium (Porcine) (Heparin -) 1,000 unit IVPUSH PRN PRN PRN Reason: Heparin Heparin Sodium (Porcine) (Heparin -) 5,000 unit IVPUSH PRN PRN PRN Reason: Heparin Hydralazine HCl (Apresoline Injection -) 10 mg IVPUSH Q6H PRN PRN Reason: HYPERTENSION Last Admin: 09/13/17 21:33 Dose: 10 mg Diltiazem HCl 125 mg/ Dextrose 125 mls @ 5 mls/hr IVPB TITR [facility]; 5 MG/HR PRN Reason: Protocol Last Admin: 09/14/17 21:00 Dose: 15 mg/hr, 15 mls/hr HEPARIN SOD,PORK IN 0.45% NACL (Heparin-1/2ns 25,000 Units/500) 25,000 units in 500 mls @ 20 mls/hr IVPB TITR [facility]; 1,000 UNITS/HR PRN Reason: Protocol Last Admin: 09/15/17 03:00 Dose: 850 units/hr, 17 mls/hr Propofol (Diprivan -) 1,000,000 mcg in 100 mls @ 2.51 mls/hr IVPB TITR [facility]; 5 MCG/KG/MIN PRN Reason: Protocol Last Admin: 09/15/17 14:46 Dose: 45 mcg/kg/min, 22.588 mls/hr Piperacillin Sod/Tazobactam (Sod 3.375 gm/ Dextrose) 100 mls @ 200 mls/hr IVPB Q8H-IV [facility] Last Admin: 09/15/17 14:07 Dose: 200 mls/hr Potassium Chloride 10 meq/ (Sodium Chloride) 1,005 mls @ 75 mls/hr IVPB Q13H [facility] Insulin Aspart (Novolog Vial Sliding Scale -) 1 vial SQ HS [facility] PRN Reason: Protocol Last Admin: 09/14/17 21:18 Dose: 2 units Insulin Aspart (Novolog Vial Sliding Scale -) 1 vial SQ TIDAC [facility] PRN Reason: Protocol Last Admin: 09/15/17 11:57 Dose: 8 units Insulin Detemir (Levemir Vial) 20 units SQ AM [facility] Last Admin: 09/15/17 06:12 Dose: 20 units Metoprolol Tartrate (Lopressor Injection -) 5 mg IVPUSH Q4H PRN PRN Reason: HYPERTENSION Last Admin: 09/14/17 13:36 Dose: 5 mg Mupirocin (Bactroban Ointment (For Decolonization) -) 1 applic NS BID [facility] Stop: 09/20/17 12:14 Last Admin: 09/15/17 14:09 Dose: 1 applic Ondansetron HCl (Zofran Injection) 4 mg IVPUSH Q6H PRN PRN Reason: NAUSEA Pantoprazole Sodium (Protonix Iv) 40 mg IVPUSH DAILY [facility] Last Admin: 09/15/17 10:27 Dose: 40 mg Potassium Phos/Sodium Phos (Phos-Nak Packet -) 1 packet NGT BID [facility] Last Admin: 09/15/17 14:07 Dose: 1 packet - Objective Vital Signs: Vital Signs Temperature 101 F H 09/15/17 10:00 Pulse Rate 87 09/15/17 12:00 Respiratory Rate 20 09/15/17 14:51 Blood Pressure 137/74 09/15/17 12:00 O2 Sat by Pulse Oximetry (%) 100 09/15/17 09:44 Constitutional: Yes: Calm Eyes: Yes: Conjunctiva Clear Cardiovascular: Yes: S1, S2 Respiratory: Yes: Mechanically Ventilated Gastrointestinal: Yes: Soft Genitourinary: Yes: Bateman Present Musculoskeletal: Yes: Muscle Weakness Edema: Yes Edema: LLE: Trace, RLE: Trace Neurological: Yes: Lethargy Labs: CBC, BMP 09/15/17 05:10 09/15/17 05:10 INR, PTT INR 1.06 (0.82-1.09) 09/13/17 05:10 - ....Imaging Chest X-ray: Report Reviewed Cat Scan: Report Reviewed Problem List - Problems (1) Brain metastasis Code(s): C79.31 - SECONDARY MALIGNANT NEOPLASM OF BRAIN (2) Headache Code(s): R51 - HEADACHE (3) Metastatic colorectal cancer Code(s): C78.5 - SECONDARY MALIGNANT NEOPLASM OF LARGE INTESTINE AND RECTUM (4) SUSAN (acute kidney injury) Code(s): N17.9 - ACUTE KIDNEY FAILURE, UNSPECIFIED (5) Atrial fibrillation Code(s): I48.91 - UNSPECIFIED ATRIAL FIBRILLATION (6) Cancer, colon Code(s): C18.9 - MALIGNANT NEOPLASM OF COLON, UNSPECIFIED Qualifiers: Qualified Code(s): C18.9 - Malignant neoplasm of colon, unspecified (7) Lung mass Code(s): R91.8 - OTHER NONSPECIFIC ABNORMAL FINDING OF LUNG FIELD Assessment/Plan Current Medications Generic Name Dose Route Start Last Admin Trade Name Freq PRN Reason Stop Dose Admin Acetaminophen 1,000 mg 09/15/17 11:50 09/15/17 12:30 Ofirmev Injection - IVPB 1,000 mg Q6H PRN Administration FEVER OR PAIN Acetylcysteine 600 mg 09/15/17 08:00 Mucomyst 20 Oral / Inh Use Only* NGT 09/15/17 20:01 Q12H [facility] Albuterol/Ipratropium 1 amp 09/13/17 12:00 09/15/17 12:01 Duoneb - NEB 1 amp QIDR [facility] Administration Artificial Tears 1 drop 09/12/17 13:31 09/15/17 14:19 Artificial Tears OU 1 drop TID PRN Administration Eye Irritation Atorvastatin Calcium 20 mg 09/11/17 22:00 09/14/17 21:19 Lipitor - PO 20 mg HS [facility] Administration Chlorhexidine Gluconate 1 applic 09/15/17 22:00 Hibiclens For Decolonization - TP HS [facility] Chlorhexidine Gluconate 15 ml 09/15/17 22:00 Peridex - MM BID [facility] Dexamethasone Sodium Phosphate 4 mg 09/13/17 21:00 09/15/17 14:08 Decadron Injection - IVPUSH 4 mg Q6H-IV [facility] Administration Heparin Sodium (Porcine) 1,000 unit 09/12/17 19:46 Heparin - IVPUSH PRN PRN Heparin Heparin Sodium (Porcine) 5,000 unit 09/12/17 19:46 Heparin - IVPUSH PRN PRN Heparin Hydralazine HCl 10 mg 09/11/17 10:25 09/13/17 21:33 Apresoline Injection - IVPUSH 10 mg Q6H PRN Administration HYPERTENSION Diltiazem HCl 125 mg/ Dextrose 125 mls @ 5 mls/hr 09/11/17 14:27 09/14/17 21: 00 IVPB 15 mg/hr TITR [facility] 15 mls/hr Protocol Administration 5 MG/HR HEPARIN SOD,PORK IN 0.45% NACL 25,000 units in 500 mls @ 20 mls/hr 09/12/17 20 :00 09/15/17 03:00 Heparin-1/2ns 25,000 Units/500 IVPB 850 units/hr TITR [facility] 17 mls/hr Protocol Administration 1,000 UNITS/HR Propofol 1,000,000 mcg in 100 mls @ 2.51 mls/hr 09/13/17 11:45 09/15/17 14:46 Diprivan - IVPB 45 mcg/kg/min TITR [facility] 22.588 mls/hr Protocol Administration 5 MCG/KG/MIN Piperacillin Sod/Tazobactam 100 mls @ 200 mls/hr 09/15/17 12:45 09/15/17 14: 07 Sod 3.375 gm/ Dextrose IVPB 200 mls/hr Q8H-IV [facility] Administration Potassium Chloride 10 meq/ 1,005 mls @ 75 mls/hr 09/15/17 14:45 Sodium Chloride IVPB Q13H [facility] Insulin Aspart 1 vial 09/11/17 22:00 09/14/17 21:18 Novolog Vial Sliding Scale - SQ 2 units HS [facility] Administration Protocol Insulin Aspart 1 vial 09/11/17 07:00 09/15/17 11:57 Novolog Vial Sliding Scale - SQ 8 units TIDAC [facility] Administration Protocol Insulin Detemir 20 units 09/13/17 07:00 09/15/17 06:12 Levemir Vial SQ 20 units AM [facility] Administration Metoprolol Tartrate 5 mg 09/11/17 10:25 09/14/17 13:36 Lopressor Injection - IVPUSH 5 mg Q4H PRN Administration HYPERTENSION Mupirocin 1 applic 09/15/17 12:15 09/15/17 14:09 Bactroban Ointment (For Decolonization) - NS 09/20/17 12:14 1 applic BID [facility] Administration Ondansetron HCl 4 mg 09/11/17 02:02 Zofran Injection IVPUSH Q6H PRN NAUSEA Pantoprazole Sodium 40 mg 09/11/17 10:00 09/15/17 10:27 Protonix Iv IVPUSH 40 mg DAILY [facility] Administration Potassium Phos/Sodium Phos 1 packet 09/15/17 10:00 09/15/17 14:07 Phos-Nak Packet - NGT 1 packet BID [facility] Administration Impression 1. CKD 2. SUSAN 3. DM 4. htn 5. chol 6. chemo port malfunction 7. a-fib 8. lung mass 9. proteinuria 10. adenocarcinoma 11. CVA 12. acute resp failure Plan - cont fluids - repeat bmp in am - pt had ct with contrast yesterday - cont vent support - maintain bateman - can change fluids to 1/2 ns - monitor bp - neurology input appreciated - overall prognosis poor - reviewed chart and notes - cont ICU care - discussed with nurse - will follow Dr Llanos
--- NOTE | 2017-09-15 15:34 | PN ---
Progress Note, Physician Chief Complaint: no change tele stach, periods of MAT History of Present Illness: 62 year old woman with a PMHx of HTN, paroxysmal atrial fibrillation on apixaban , DM, HLD, CKD, GERD and colon CA s/p colectomy 2011 with mets to lung admitted with nausea and vomiting. +headache. Concern for lesion on head CT. MRI brain with metastatic disease and with acute infarcts. - Current Medication List Current Medications: Active Medications Acetaminophen (Ofirmev Injection -) 1,000 mg IVPB Q6H PRN PRN Reason: FEVER OR PAIN Last Admin: 09/15/17 12:30 Dose: 1,000 mg Acetylcysteine (Mucomyst 20 Oral / Inh Use Only*) 600 mg NGT Q12H [facility] Stop: 09/15/17 20:01 Albuterol/Ipratropium (Duoneb -) 1 amp NEB QIDR [facility] Last Admin: 09/15/17 12:01 Dose: 1 amp Artificial Tears (Artificial Tears) 1 drop OU TID PRN PRN Reason: Eye Irritation Last Admin: 09/15/17 14:19 Dose: 1 drop Atorvastatin Calcium (Lipitor -) 20 mg PO HS [facility] Last Admin: 09/14/17 21:19 Dose: 20 mg Chlorhexidine Gluconate (Hibiclens For Decolonization -) 1 applic TP HS [facility] Chlorhexidine Gluconate (Peridex -) 15 ml MM BID [facility] Dexamethasone Sodium Phosphate (Decadron Injection -) 4 mg IVPUSH Q6H-IV [facility] Last Admin: 09/15/17 14:08 Dose: 4 mg Heparin Sodium (Porcine) (Heparin -) 1,000 unit IVPUSH PRN PRN PRN Reason: Heparin Heparin Sodium (Porcine) (Heparin -) 5,000 unit IVPUSH PRN PRN PRN Reason: Heparin Hydralazine HCl (Apresoline Injection -) 10 mg IVPUSH Q6H PRN PRN Reason: HYPERTENSION Last Admin: 09/13/17 21:33 Dose: 10 mg Diltiazem HCl 125 mg/ Dextrose 125 mls @ 5 mls/hr IVPB TITR [facility]; 5 MG/HR PRN Reason: Protocol Last Admin: 09/14/17 21:00 Dose: 15 mg/hr, 15 mls/hr HEPARIN SOD,PORK IN 0.45% NACL (Heparin-1/2ns 25,000 Units/500) 25,000 units in 500 mls @ 20 mls/hr IVPB TITR [facility]; 1,000 UNITS/HR PRN Reason: Protocol Last Admin: 09/15/17 03:00 Dose: 850 units/hr, 17 mls/hr Propofol (Diprivan -) 1,000,000 mcg in 100 mls @ 2.51 mls/hr IVPB TITR [facility]; 5 MCG/KG/MIN PRN Reason: Protocol Last Admin: 09/15/17 14:46 Dose: 45 mcg/kg/min, 22.588 mls/hr Piperacillin Sod/Tazobactam (Sod 3.375 gm/ Dextrose) 100 mls @ 200 mls/hr IVPB Q8H-IV [facility] Last Admin: 09/15/17 14:07 Dose: 200 mls/hr Potassium Chloride 10 meq/ (Sodium Chloride) 1,005 mls @ 75 mls/hr IVPB Q13H [facility] Insulin Aspart (Novolog Vial Sliding Scale -) 1 vial SQ HS [facility] PRN Reason: Protocol Last Admin: 09/14/17 21:18 Dose: 2 units Insulin Aspart (Novolog Vial Sliding Scale -) 1 vial SQ TIDAC [facility] PRN Reason: Protocol Last Admin: 09/15/17 11:57 Dose: 8 units Insulin Detemir (Levemir Vial) 20 units SQ AM [facility] Last Admin: 09/15/17 06:12 Dose: 20 units Metoprolol Tartrate (Lopressor Injection -) 5 mg IVPUSH Q4H PRN PRN Reason: HYPERTENSION Last Admin: 09/14/17 13:36 Dose: 5 mg Mupirocin (Bactroban Ointment (For Decolonization) -) 1 applic NS BID [facility] Stop: 09/20/17 12:14 Last Admin: 09/15/17 14:09 Dose: 1 applic Ondansetron HCl (Zofran Injection) 4 mg IVPUSH Q6H PRN PRN Reason: NAUSEA Pantoprazole Sodium (Protonix Iv) 40 mg IVPUSH DAILY [facility] Last Admin: 09/15/17 10:27 Dose: 40 mg Potassium Phos/Sodium Phos (Phos-Nak Packet -) 1 packet NGT BID [facility] Last Admin: 09/15/17 14:07 Dose: 1 packet - Objective Vital Signs: Vital Signs Temperature 101 F H 01/08/18 10:00 Pulse Rate 87 09/15/17 12:00 Respiratory Rate 20 09/15/17 14:51 Blood Pressure 137/74 09/15/17 12:00 O2 Sat by Pulse Oximetry (%) 100 09/15/17 09:44 Constitutional: Yes: No Distress, Calm Eyes: Yes: Conjunctiva Clear HENT: Yes: Normocephalic Neck: Yes: Trachea Midline Cardiovascular: Yes: Regular Rate and Rhythm Respiratory: Yes: Regular, CTA Bilaterally Edema: Yes Edema: LLE: 1+, RLE: 1+ Peripheral Pulses WNL: Yes Labs: CBC, BMP 09/15/17 05:10 09/15/17 05:10 INR, PTT INR 1.06 (0.82-1.09) 09/13/17 05:10 Problem List - Problems (1) Atrial fibrillation Assessment/Plan: 1) Paroxysmal atrial fibrillation with intermittent rapid afib and sinus rhythm on tele while on Dilt drip and Metoprolol IV. Continue IV Diltiazem and metoprolol for now. -On heparin drip as per neurology 2) HTN: systolic BP is mildly elevated. Continue IV Diltiazem and Metoprolol for now. I3) Oncology -management as per primary team On decadron Code(s): I48.91 - UNSPECIFIED ATRIAL FIBRILLATION
[2017-09-15] MEDS: DILTIAZEM INJECTION 125 MG in DEXTROSE 5%-WATER - 100 ML IVPB SCH (16:00)
[2017-09-15] MEDS: SODIUM CHLORIDE 0.45% 1,000 ML IV SCH (16:15)
--- NOTE | 2017-09-15 18:26 | PN ---
Progress Note (short form) - Note Progress Note: Patient seen and examined intubated/sedated Last Vital Signs Temp Pulse Resp BP Pulse Ox 99.2 F 73 20 124/71 100 09/15/17 22:00 09/15/17 22:00 09/15/17 22:00 09/15/17 22:00 09/15/17 20:52 Cor: RSR, No murmurs, No gallops Lungs: Clear to P&A Abd: Soft, Normal bowel sounds, No organomegaly Ext:No significant edema Neuro: agitated/anxious/moving all extremities/following commands Abnormal Lab Results 09/15/17 09/15/17 09/15/17 01:10 05:10 05:10 RBC 3.17 L Hgb 8.1 L Hct 25.6 L MCHC 31.8 L RDW 16.6 H PTT (Actin FS) 68.0 H D 62.4 H ABG pCO2 at Pt Temp ABG pO2 at Pt Temp ABG HCO3 ABG O2 Sat (Measured) ABG O2 Content ABG Base Excess Sodium Chloride Carbon Dioxide BUN Creatinine Random Glucose Calcium Magnesium AST Total Protein Albumin 09/15/17 09/15/17 05:10 11:30 RBC Hgb Hct MCHC RDW PTT (Actin FS) ABG pCO2 at Pt Temp 26.0 L ABG pO2 at Pt Temp 237.0 H* ABG HCO3 16.8 L ABG O2 Sat (Measured) 99.5 H ABG O2 Content 11.0 L ABG Base Excess -6.3 L Sodium 146 H Chloride 119 H Carbon Dioxide 17 L BUN 45 H Creatinine 1.8 H Random Glucose 324 H* D Calcium 7.5 L Magnesium 2.8 H AST 13 L D Total Protein 5.4 L Albumin 2.3 L Active Medications Generic Name Dose Route Start Last Admin Trade Name Freq PRN Reason Stop Dose Admin Acetaminophen 1,000 mg 09/15/17 11:50 09/15/17 12:30 Ofirmev Injection - IVPB 1,000 mg Q6H PRN Administration FEVER OR PAIN Albuterol/Ipratropium 1 amp 09/13/17 12:00 09/15/17 17:32 Duoneb - NEB 1 amp QIDR [facility] Administration Artificial Tears 1 applic 09/15/17 22:00 09/15/17 21:17 Artificial Tears Ointment - OU 1 applic BID [facility] Administration Atorvastatin Calcium 20 mg 09/11/17 22:00 09/15/17 21:17 Lipitor - PO 20 mg HS [facility] Administration Chlorhexidine Gluconate 1 applic 09/15/17 22:00 09/15/17 21:18 Hibiclens For Decolonization - TP 1 applic HS [facility] Administration Chlorhexidine Gluconate 15 ml 09/15/17 22:00 09/15/17 22:29 Peridex - MM 15 ml BID [facility] Administration Dexamethasone Sodium Phosphate 4 mg 09/13/17 21:00 09/15/17 20:00 Decadron Injection - IVPUSH 4 mg Q6H-IV [facility] Administration Heparin Sodium (Porcine) 1,000 unit 09/12/17 19:46 Heparin - IVPUSH PRN PRN Heparin Heparin Sodium (Porcine) 5,000 unit 09/12/17 19:46 Heparin - IVPUSH PRN PRN Heparin Hydralazine HCl 10 mg 09/11/17 10:25 09/13/17 21:33 Apresoline Injection - IVPUSH 10 mg Q6H PRN Administration HYPERTENSION Diltiazem HCl 125 mg/ Dextrose 125 mls @ 5 mls/hr 09/11/17 14:27 09/15/17 16: 00 IVPB 15 mg/hr TITR [facility] 15 mls/hr Protocol Administration 5 MG/HR HEPARIN SOD,PORK IN 0.45% NACL 25,000 units in 500 mls @ 20 mls/hr 09/12/17 20 :00 09/15/17 20:00 Heparin-1/2ns 25,000 Units/500 IVPB Not Given TITR [facility] Protocol 1,000 UNITS/HR Propofol 1,000,000 mcg in 100 mls @ 2.51 mls/hr 09/13/17 11:45 09/15/17 20:00 Diprivan - IVPB 45.02 mcg/kg/min TITR [facility] 22.6 mls/hr Protocol Administration 5 MCG/KG/MIN Piperacillin Sod/Tazobactam 100 mls @ 200 mls/hr 09/15/17 12:45 09/15/17 18: 57 Sod 3.375 gm/ Dextrose IVPB 200 mls/hr Q8H-IV [facility] Administration Sodium Chloride 1,000 mls @ 75 mls/hr 09/15/17 16:15 09/15/17 16:15 1/2 Normal Saline IV 75 mls/hr ASDIR [facility] Administration Insulin Aspart 1 vial 09/15/17 22:00 09/15/17 22:30 Novolog Vial Sliding Scale - SQ 4 units Q4HPO [facility] Administration Protocol Insulin Detemir 10 units 09/15/17 21:07 Levemir Vial SQ AM [facility] Metoprolol Tartrate 5 mg 09/11/17 10:25 09/14/17 13:36 Lopressor Injection - IVPUSH 5 mg Q4H PRN Administration HYPERTENSION Mupirocin 1 applic 09/15/17 12:15 09/15/17 22:50 Bactroban Ointment (For Decolonization) - NS 09/20/17 12:14 1 applic BID [facility] Administration Ondansetron HCl 4 mg 09/11/17 02:02 Zofran Injection IVPUSH Q6H PRN NAUSEA Pantoprazole Sodium 40 mg 09/11/17 10:00 09/15/17 10:27 Protonix Iv IVPUSH 40 mg DAILY [facility] Administration Potassium Phos/Sodium Phos 1 packet 09/15/17 10:00 09/15/17 21:19 Phos-Nak Packet - NGT 1 packet BID [facility] Administration A/P 62 yo woman with h/o HTN, Chol, DM, ASHD, AFib and moderate renal insufficiency is s/p colectomy 2011 for colonic CA now metastatic to the lungs Recently had portal placed for chemo Rx with attempted infusion Friday AM. Soon thereafter, patient developed headache, nausea, vomiting and unsteadiness. CT of head suggested ischemic changes in the posterior fossa (left cerebellum > right) and the parietal region. MRI confirmed extensive changes including B/L cerebellar infarcts (L>>R); a left lateral medullary (brainstem) infarct, and multiple, scattered hemispheric infarcts. new lt. occipital lobe infarct on heparin drip on decadron febrile On emoiric antibiotics CT with and without contrast noted
[2017-09-15] MEDS ORDERED: INSULIN SLIDING SCALE (NOVOLOG) 1 VIAL SQ SCH (19:30)
--- NOTE | 2017-09-15 21:07 | PN ---
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 (Acute) Abnormal Lab Results 09/15/17 09/15/17 09/15/17 01:10 05:10 05:10 RBC 3.17 L Hgb 8.1 L Hct 25.6 L MCHC 31.8 L RDW 16.6 H PTT (Actin FS) 68.0 H D 62.4 H ABG pCO2 at Pt Temp ABG pO2 at Pt Temp ABG HCO3 ABG O2 Sat (Measured) ABG O2 Content ABG Base Excess Sodium Chloride Carbon Dioxide BUN Creatinine Random Glucose Calcium Magnesium AST Total Protein Albumin 09/15/17 09/15/17 05:10 11:30 RBC Hgb Hct MCHC RDW PTT (Actin FS) ABG pCO2 at Pt Temp 26.0 L ABG pO2 at Pt Temp 237.0 H* ABG HCO3 16.8 L ABG O2 Sat (Measured) 99.5 H ABG O2 Content 11.0 L ABG Base Excess -6.3 L Sodium 146 H Chloride 119 H Carbon Dioxide 17 L BUN 45 H Creatinine 1.8 H Random Glucose 324 H* D Calcium 7.5 L Magnesium 2.8 H AST 13 L D Total Protein 5.4 L Albumin 2.3 L Laboratory Results - last 24 hr 09/14/17 09/15/17 09/15/17 21:11 01:10 01:45 WBC RBC Hgb Hct MCV MCH MCHC RDW Plt Count MPV PTT (Actin FS) 68.0 H D Puncture Site ABG pH ABG pCO2 at Pt Temp ABG pO2 at Pt Temp ABG HCO3 ABG O2 Sat (Measured) ABG O2 Content ABG Base Excess Addy Test O2 Delivery Device Oxygen Flow Rate Vent Mode Vent Rate Mechanical Rate PEEP Pressure Support Vent Sodium Potassium Chloride Carbon Dioxide Anion Gap BUN Creatinine Creat Clearance w eGFR POC Glucometer 206.82063 230.64226 Random Glucose Calcium Phosphorus Magnesium Total Bilirubin AST ALT Alkaline Phosphatase Total Protein Albumin 09/15/17 09/15/17 09/15/17 05:10 05:10 05:10 WBC 8.6 RBC 3.17 L Hgb 8.1 L Hct 25.6 L MCV 80.8 MCH 25.7 MCHC 31.8 L RDW 16.6 H Plt Count 318 MPV 7.8 PTT (Actin FS) 62.4 H Puncture Site ABG pH ABG pCO2 at Pt Temp ABG pO2 at Pt Temp ABG HCO3 ABG O2 Sat (Measured) ABG O2 Content ABG Base Excess Addy Test O2 Delivery Device Oxygen Flow Rate Vent Mode Vent Rate Mechanical Rate PEEP Pressure Support Vent Sodium Potassium Chloride Carbon Dioxide Anion Gap BUN Creatinine Creat Clearance w eGFR POC Glucometer Random Glucose Calcium Phosphorus Cancelled Magnesium Cancelled Total Bilirubin AST ALT Alkaline Phosphatase Total Protein Albumin 09/15/17 09/15/17 09/15/17 05:10 06:03 11:30 WBC RBC Hgb Hct MCV MCH MCHC RDW Plt Count MPV PTT (Actin FS) Puncture Site Right radial ABG pH 7.43 ABG pCO2 at Pt Temp 26.0 L ABG pO2 at Pt Temp 237.0 H* ABG HCO3 16.8 L ABG O2 Sat (Measured) 99.5 H ABG O2 Content 11.0 L ABG Base Excess -6.3 L Addy Test Positive O2 Delivery Device Other Oxygen Flow Rate 80% Vent Mode Ak Vent Rate 20 Mechanical Rate Espirit PEEP 5.0 Pressure Support Vent 450 Sodium 146 H Potassium 4.3 Chloride 119 H Carbon Dioxide 17 L Anion Gap 10 BUN 45 H Creatinine 1.8 H Creat Clearance w eGFR 28.70 POC Glucometer [phone] Random Glucose 324 H* D Calcium 7.5 L Phosphorus 3.2 D Magnesium 2.8 H Total Bilirubin 0.3 D AST 13 L D ALT 13 Alkaline Phosphatase 105 Total Protein 5.4 L Albumin 2.3 L 09/15/17 09/15/17 11:38 16:19 WBC RBC Hgb Hct MCV MCH MCHC RDW Plt Count MPV PTT (Actin FS) Puncture Site ABG pH ABG pCO2 at Pt Temp ABG pO2 at Pt Temp ABG HCO3 ABG O2 Sat (Measured) ABG O2 Content ABG Base Excess Addy Test O2 Delivery Device Oxygen Flow Rate Vent Mode Vent Rate Mechanical Rate PEEP Pressure Support Vent Sodium Potassium Chloride Carbon Dioxide Anion Gap BUN Creatinine Creat Clearance w eGFR POC Glucometer 363.13993 270.16026 Random Glucose Calcium Phosphorus Magnesium Total Bilirubin AST ALT Alkaline Phosphatase Total Protein Albumin bgm q4hrs novolog scale levemir 10 units am Problem List - Problems (1) 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 Code(s): E10.3211 - TYPE 1 DIAB WITH MILD NONP RTNOP WITH MACULAR EDEMA, R EYE (2) Brain metastasis Code(s): C79.31 - SECONDARY MALIGNANT NEOPLASM OF BRAIN (3) CVA (cerebral vascular accident) Code(s): I63.9 - CEREBRAL INFARCTION, UNSPECIFIED (4) Headache Code(s): R51 - HEADACHE Qualifiers: Headache chronicity pattern: unspecified pattern Intractability: intractable (5) Hypercapnia Code(s): R06.89 - OTHER ABNORMALITIES OF BREATHING (6) Metastatic colorectal cancer Code(s): C78.5 - SECONDARY MALIGNANT NEOPLASM OF LARGE INTESTINE AND RECTUM (7) SUSAN (acute kidney injury) Code(s): N17.9 - ACUTE KIDNEY FAILURE, UNSPECIFIED
[2017-09-15] MEDS: MINERAL OIL/PETROLATUM,WHITE 3.5 GM TUBE OU SCH (21:17)
[2017-09-15] MEDS: ATORVASTATIN CA 20 MG TABLET (FP) PO SCH (21:17)
[2017-09-15] MEDS: CHLORHEXIDINE GLUCONATE 4% CLEANSER FOR DECOLONIZATION TP SCH (21:18)
[2017-09-15] MEDS ORDERED: INSULIN (NOVOLOG) ASPART 100 UNITS/ML 10ML VIAL ONE (22:25)
[2017-09-15] MEDS: CHLORHEXIDINE GLUCONATE 0.12% 15ML CUP MM SCH (22:29)
[2017-09-16] MEDS ORDERED: INSULIN SLIDING SCALE (NOVOLOG) 1 VIAL SQ SCH
[2017-09-16] MEDS: DILTIAZEM INJECTION 125 MG in DEXTROSE 5%-WATER - 100 ML IVPB SCH (01:00)
[2017-09-16] MEDS: PIPERACILLIN/TAZOB 3.375 GM 3.375 GM in DEXTROSE 5%-WATER - 100 ML IVPB SCH ×3 (02:31→18:15)
[2017-09-16] MEDS: DEXAMETHASONE SOD PHOSPHATE 4 MG/1 ML VIAL IVPUSH SCH ×4 (02:31→20:46)
[2017-09-16] MEDS: INSULIN SLIDING SCALE (NOVOLOG) 1 VIAL SQ SCH ×5 (02:44→21:34)
[2017-09-16] MEDS: PROPOFOL 1,000,000 MCG/100 ML VIAL IVPB SCH ×2 (03:59→20:48)
[2017-09-16] MEDS: ALBUTEROL SO4 2.5/IPRATROPIUM 0.5 INH SOL 3 ML VIAL.NEB. NEB SCH ×4 (05:35→21:00)
[2017-09-16] MEDS: INSULIN DETEMIR 100 UNITS/ML MDV SQ SCH (06:11)
[2017-09-16 06:48] LABS: BASO % 0.1 % (0-2.0); EOS % 0.1 % (0-4.5); HEMOGLOBIN 8.4 GM/dL (10.7-15.3); LYMPH % 8.4 % (8-40); MCHC 32.1 g/dl (32.0-36.0); MEAN CELL VOLUME 81.1 fl (80-96); MEAN PLT VOLUME 8.1 fl (7.5-11.1); MONO % 4.2 % (3.8-10.2); NEUT % 87.2 % (42.8-82.8); PLATELET COUNT 318 K/MM3 (134-434); RBC 3.21 M/mm3 (3.60-5.2); RDW 16.8 % (11.6-15.6); WHITE BLOOD COUNT 9.1 K/mm3 (4.0-10.0)
[2017-09-16 07:44] LABS: ARTERIAL BLD GAS O2 SATURATION 96.9 % (90-98.9); ARTERIAL BLOOD GAS BASE EXCESS -8.6 meq/l (-2-2); ARTERIAL BLOOD GAS PCO2 27.1 mmHg (35-45); ARTERIAL BLOOD GAS pH 7.37 (7.35-7.45)
[2017-09-16 07:47] LABS: ALBUMIN 2.2 g/dl (3.4-5.0); ANION GAP 12 (8-16); BLOOD UREA NITROGEN 57 mg/dL (7-18); CALCIUM 7.7 mg/dL (8.5-10.1); CHLORIDE 118 mmol/L (98-107); CO2 16 mmol/L (21-32); CREATININE 2.1 mg/dL (0.55-1.02); GLUCOSE,RANDOM 269 mg/dL (74-106); MAGNESIUM 2.7 mg/dL (1.8-2.4); POTASSIUM 4.2 mmol/L (3.5-5.1); SGOT/AST 13 U/L (15-37); SGPT/ALT 14 U/L (12-78); SODIUM 146 mmol/L (136-145)
[2017-09-16 07:49] LABS: ALK PHOS 96 U/L (45-117); BILIRUBIN,TOTAL 0.3 mg/dL (0.2-1.0); PHOSPHOROUS 4.9 mg/dL (2.5-4.9); TOT PROT 5.1 g/dl (6.4-8.2)
[2017-09-16 08:11] LABS: ALLENS TEST POSITIVE
--- NOTE | 2017-09-16 08:16 | CONS ---
DATE OF NEUROSURGERY SECOND OPINION: DATE OF DICTATION: 09/15/2017 REQUESTING PHYSICIAN: Issa Kaplan MD; Daniel Pulido MD LONG TERM CARE ADMINISTRATOR: César Carr MD, Neurosurgery. CHIEF COMPLAINT: Multiple vascular territory ischemic strokes. HISTORY OF PRESENT ILLNESS: The patient is a 62-year-old female with a history of metastatic rectal CA to the lungs, who was brought in by ambulance for left- sided weakness as well as nausea and vomiting. The patient had undergone chemotherapy treatment for chemotherapy infusion the day of the ER admission on September 09. She had some significant nausea and vomiting. She also had some loose stool. She apparently had complained of headache with some chills. On Friday her mental status deteriorated and repeat head CT demonstrated additional ischemic focus. She was intubated for airway protection. Patient has been seen by neurology and neurosurgery. The patient also carries medical history of hypertension and diabetes. PAST MEDICAL HISTORY: Significant for rectal CA, metastatic to the lungs; diabetes; hypercholesterolemia; hyperkalemia; hypertension. CURRENT MEDICATIONS: Include Zofran, Decadron, Tylenol, Zosyn, heparin, DuoNeb, Lopressor, Diprivan. ALLERGIES: There is no known drug allergy except SOME MEDICAL TAPES. FAMILY HISTORY: Noncontributory. SOCIAL HISTORY: She is a not a smoker or a drinker. She lives at home with her family. She does not work. REVIEW OF SYSTEMS: Otherwise negative for other major constitutional, head and neck, cardiovascular, pulmonary, gastrointestinal, genitourinary, endocrinological, neurological, and psychological problem except for the above. PHYSICAL EXAMINATION: General: She is intubated and sedated on Diprivan drip. Vital Signs: Temperature is 101. Blood pressure is 137/74 with pulse rate of 87. FiO2 is 50% with O2 saturation 98%. HEENT: Examination shows her to be normocephalic, atraumatic, anicteric. Neck: Supple with no carotid bruit. Coronary: Examination demonstrated mild tachycardia with irregular rhythm. Lungs: Decreased breath sounds at the bases. Abdomen: Benign. Extremities: Examination shows mild edema in the upper and lower extremities, without other signs of acute DVT. Neurologic: She is sedated, but she opens her eyes to pain, and she has slight withdrawal bilaterally to pain. Cranial nerve examination shows right pupil to be 8 mm and minimally reactive and left pupil to be 4 mm and reactive to about 2.5 mm. She has a gag, and she has a corneal reflex intact bilaterally. Motor examination shows bilateral mild withdrawal to pain with at most 3/5 strength. Sensory examination is difficult to fully assess. Deep tendon reflexes are 1+. Toes are downgoing bilaterally. LABORATORY: Examination shows white blood cell count is 8.6. Initially, white blood cell count was 9.8. Most recent hemoglobin is 8.1, and platelet count is 318, 000. PTT is 62.4 as the patient is on a heparin drip. BUN is 45 and creatinine 1.8. Sodium is 146, and potassium is 4.3. Albumin is 2.3. Glucose 324. CT scan of the head from September 10 demonstrated hypodensity of the left greater than right cerebellum as well as hypodensity of the right posterior frontal and parietal region. There is no significant hydrocephalus. Mild periventricular small vessel disease is noted. MRI of the brain from September 10 demonstrated multiple cerebral and cerebellar ischemic lesions. There is [id number] left lower cerebellar hemisphere than greater than right ischemic stroke. A cerebellar vermis infarct is also noted. Left posterolateral aspect of the medulla also shows signs of ischemia. Acute supratentorial non-hemorrhagic ischemia is noted in the left inferior thalamus, left frontal, left parietal, right posterior frontal, right parietal, as well as left basal ganglia as well as centrum semiovale bilaterally. Followup CT scan of the head done on September 12, , and , including a CT scan of the head with contrast done on September 14 demonstrated development of a new, moderate size left medial occipital infarct. The prior, smaller frontal and parietal ischemic zone remains about unchanged. There is slight increase of the ventricular size, both the lateral and third ventricle, as well as increasing mass effect of the posterior fossa. The left occipital stroke was first noted on September 12. IMPRESSION: 1. Multiple vascular territory ischemic strokes including both anterior (MCA) and posterior circulation.(PICA and ENGINEERING SURVEYOR) 2. Large, [id number]-[id number]-right PICA and left posterior cerebral artery (ENGINEERING SURVEYOR ) stroke with multiple other smaller embolic strokes in the supratentorial and infratentorial spaces with mass effect. 3. Insulin-dependent diabetes. 4. Rectal cancer with metastasis. 5. Atrial fibrillation, currently on IV anticoagulation. RECOMMENDATIONS: The patient presents with multiple intracranial strokes as a result of cardioembolic events. She remains in atrial fibrillation and is on a heparin drip at this time. Unfortunately, she remains a high risk for development of further embolic stroke, especially when she is off the anticoagulation. Surgical intervention could potentially alleviate the pressure on the posterior fossa, but certainly will not solve her underlying vascular problems. Additionally, for her to be off anticoagulation and to undergo general anesthesia, she is at significant cardioembolic risk to develop further strokes obviously. The external ventricular drain alone is not recommended at this time because of the posterior fossa mass effect which under such circumstances could cause upward herniation. The prognosis is poor given the patient's underlying rectal CA, diabetes, and multiple existing acute ischemic strokes. Further, her underlying cardioembolic source remains as she remained in afib. This consultation is offered as a second opinion only, and the above was discussed with Dr. Kaplan in the ICU. CÉSAR CARR M.D. [id number] MTDD
[2017-09-16] MEDS ORDERED: PT OWN MED DRAWER 7, Y5N ONE ×3 (09:13→20:24)
[2017-09-16] MEDS: PANTOPRAZOLE SODIUM 40 MG VIAL IVPUSH SCH (09:27)
[2017-09-16] MEDS: CHLORHEXIDINE GLUCONATE 0.12% 15ML CUP MM SCH ×2 (09:27→21:19)
--- NOTE | 2017-09-16 10:06 | PN ---
Physical Exam: SUBJECTIVE: Patient seen and examined. Intubated and sedated in the am. To have sedation vacation after CT head this am. Tmax yesterday was 101, no other temperature spike. OBJECTIVE: Vital Signs Period Temp Pulse Resp BP Sys/Mcdaniel Pulse Ox Last 24 Hr 98.6 F-100.4 F 69-87 18-22 124-138/66-75 100-100 Vital Signs Temp 98.6 F 09/16/17 06:00 Pulse 70 09/16/17 06:00 Resp 21 09/16/17 15:38 BP 128/66 09/16/17 06:00 Pulse Ox 100 09/15/17 22:00 Intake & Output 09/15/17 09/16/17 09/16/17 23:59 11:59 23:59 Intake Total 538.4 1099.3 Output Total 550 700 700 Balance -11.6 399.3 -700 Weight 88.042 kg Intake: IV 518.4 999.3 1/2 Normal Saline 1,000 300 562.5 ml @ 75 mls/hr IV ASDIR CORDELIA Rx#:[id number] Cardizem Injection - 125 60 120 mg In D5w - 100 ml @ 5 MG /HR 5 mls/hr IVPB TITR CORDELIA Rx#:[id number] DIPRIVAN - 1,000,000 mcg 90.4 180.8 In 100 ml @ 5 MCG/KG/MIN 2.51 mls/hr IVPB TITR CORDELIA Rx#:[id number] HEPARIN-1/2NS 25,000 68 136 UNITS/500 25,000 units In 500 ml @ 1,000 UNITS/HR 20 mls/hr IVPB TITR CORDELIA Rx#:[id number] IVPB 20 100 Output: Urine 550 700 700 Bateman 550 700 700 Other: Voiding Method Indwelling Catheter Bowel Movement No No Weight Measurement Method Built in [facility] GENERAL: Intubated and [id number], fio2-50%, RR-20, 5/5. HEAD: Healing bruise over L eye EYES: L eye ecchymosis ENT: intubated, NGT NECK: supple. LUNGS: scattered rhonchi bilaterally HEART: S1, S2, controlled rate. ABDOMEN: Soft, nondistended, bowel sounds+ EXTREMITIES: 2+ pulses, warm, well-perfused, no edema. NEUROLOGICAL:intubated and sedated PSYCH: Cannot be assessed Lines: ETT, 2LUE peripheral lines, 1 RUE peripheral line, NGT, bateman Microbiology 09/15/17 12:00 Sputum - Endotrachea Suction/Ventilator Gram Stain - Final 09/15/17 12:00 Sputum - Endotrachea Suction/Ventilator Sputum Culture - Preliminary Yeast Like Organism 09/15/17 12:52 Blood - Peripheral Venous Blood Culture - Preliminary NO GROWTH OBTAINED AFTER 24 HOURS, INCUBATION TO CONTINUE FOR 4 DAYS. 09/15/17 12:45 Blood - Peripheral Venous Blood Culture - Preliminary NO GROWTH OBTAINED AFTER 24 HOURS, INCUBATION TO CONTINUE FOR 4 DAYS. 09/15/17 12:00 Urine - Urine Bateman Urine Culture - Final NO GROWTH OBTAINED Laboratory Results - last 24 hr 09/15/17 09/15/17 09/15/17 06:03 11:30 11:38 WBC RBC Hgb Hct MCV MCH MCHC RDW Plt Count MPV Neutrophils % Lymphocytes % Monocytes % Eosinophils % Basophils % PTT (Actin FS) Puncture Site Right radial ABG pH 7.43 ABG pCO2 at Pt Temp 26.0 L ABG pO2 at Pt Temp 237.0 H* ABG HCO3 16.8 L ABG O2 Sat (Measured) 99.5 H ABG O2 Content 11.0 L ABG Base Excess -6.3 L Addy Test Positive O2 Delivery Device Other Oxygen Flow Rate 80% Vent Mode Ak Vent Rate 20 Mechanical Rate Espirit PEEP 5.0 Pressure Support Vent 450 Sodium Potassium Chloride Carbon Dioxide Anion Gap BUN Creatinine Creat Clearance w eGFR POC Glucometer 351.62897 363.48087 Random Glucose Calcium Phosphorus Magnesium Total Bilirubin AST ALT Alkaline Phosphatase Total Protein Albumin Random Vancomycin 09/15/17 09/15/17 09/16/17 16:19 22:28 02:42 WBC RBC Hgb Hct MCV MCH MCHC RDW Plt Count MPV Neutrophils % Lymphocytes % Monocytes % Eosinophils % Basophils % PTT (Actin FS) Puncture Site ABG pH ABG pCO2 at Pt Temp ABG pO2 at Pt Temp ABG HCO3 ABG O2 Sat (Measured) ABG O2 Content ABG Base Excess Addy Test O2 Delivery Device Oxygen Flow Rate Vent Mode Vent Rate Mechanical Rate PEEP Pressure Support Vent Sodium Potassium Chloride Carbon Dioxide Anion Gap BUN Creatinine Creat Clearance w eGFR POC Glucometer 270.88227 280.00776 256.73086 Random Glucose Calcium Phosphorus Magnesium Total Bilirubin AST ALT Alkaline Phosphatase Total Protein Albumin Random Vancomycin 09/16/17 09/16/17 09/16/17 05:10 05:10 05:10 WBC 9.1 RBC 3.21 L Hgb 8.4 L Hct 26.0 L MCV 81.1 MCH 26.0 MCHC 32.1 RDW 16.8 H Plt Count 318 MPV 8.1 Neutrophils % 87.2 H Lymphocytes % 8.4 D Monocytes % 4.2 Eosinophils % 0.1 D Basophils % 0.1 PTT (Actin FS) 80.5 H Puncture Site ABG pH ABG pCO2 at Pt Temp ABG pO2 at Pt Temp ABG HCO3 ABG O2 Sat (Measured) ABG O2 Content ABG Base Excess Addy Test O2 Delivery Device Oxygen Flow Rate Vent Mode Vent Rate Mechanical Rate PEEP Pressure Support Vent Sodium Potassium Chloride Carbon Dioxide Anion Gap BUN Creatinine Creat Clearance w eGFR POC Glucometer Random Glucose Calcium Phosphorus Magnesium Total Bilirubin AST ALT Alkaline Phosphatase Total Protein Albumin Random Vancomycin 14.650 09/16/17 09/16/17 09/16/17 05:10 05:26 07:30 WBC RBC Hgb Hct MCV MCH MCHC RDW Plt Count MPV Neutrophils % Lymphocytes % Monocytes % Eosinophils % Basophils % PTT (Actin FS) Puncture Site Right radial ABG pH 7.37 ABG pCO2 at Pt Temp 27.1 L ABG pO2 at Pt Temp 146.0 H D ABG HCO3 15.3 L ABG O2 Sat (Measured) 96.9 ABG O2 Content 10.1 L ABG Base Excess -8.6 L Addy Test Positive O2 Delivery Device Vent Oxygen Flow Rate 50 Vent Mode Vent Rate 20 Mechanical Rate Yes PEEP 5.0 Pressure Support Vent 450 Sodium 146 H Potassium 4.2 Chloride 118 H Carbon Dioxide 16 L Anion Gap 12 BUN 57 H D Creatinine 2.1 H Creat Clearance w eGFR 24.02 POC Glucometer 295.40040 Random Glucose 269 H Calcium 7.7 L Phosphorus 4.9 D Magnesium 2.7 H Total Bilirubin 0.3 AST 13 L ALT 14 Alkaline Phosphatase 96 Total Protein 5.1 L Albumin 2.2 L Random Vancomycin Active Medications Generic Name Dose Route Start Last Admin Trade Name Freq PRN Reason Stop Dose Admin Acetaminophen 1,000 mg 09/15/17 11:50 09/15/17 12:30 Ofirmev Injection - IVPB 1,000 mg Q6H PRN Administration FEVER OR PAIN Albuterol/Ipratropium 1 amp 09/13/17 12:00 09/16/17 05:35 Duoneb - NEB 1 amp QIDR CORDELIA Administration Artificial Tears 1 applic 09/15/17 22:00 09/15/17 21:17 Artificial Tears Ointment - OU 1 applic BID CORDELIA Administration Atorvastatin Calcium 20 mg 09/11/17 22:00 09/15/17 21:17 Lipitor - PO 20 mg HS CORDELIA Administration Chlorhexidine Gluconate 1 applic 09/15/17 22:00 09/15/17 21:18 Hibiclens For Decolonization - TP 1 applic HS CORDELIA Administration Chlorhexidine Gluconate 15 ml 09/15/17 22:00 09/16/17 09:27 Peridex - MM 15 ml BID CORDELIA Administration Dexamethasone Sodium Phosphate 4 mg 09/13/17 21:00 09/16/17 09:23 Decadron Injection - IVPUSH 4 mg Q6H-IV CORDELIA Administration Heparin Sodium (Porcine) 1,000 unit 09/12/17 19:46 Heparin - IVPUSH PRN PRN Heparin Heparin Sodium (Porcine) 5,000 unit 09/12/17 19:46 Heparin - IVPUSH PRN PRN Heparin Hydralazine HCl 10 mg 09/11/17 10:25 09/13/17 21:33 Apresoline Injection - IVPUSH 10 mg Q6H PRN Administration HYPERTENSION Diltiazem HCl 125 mg/ Dextrose 125 mls @ 5 mls/hr 09/11/17 14:27 09/16/17 01: 00 IVPB 15 mg/hr TITR CORDELIA 15 mls/hr Protocol Administration 5 MG/HR HEPARIN SOD,PORK IN 0.45% NACL 25,000 units in 500 mls @ 20 mls/hr 09/12/17 20 :00 09/16/17 07:57 Heparin-1/2ns 25,000 Units/500 IVPB 800 units/hr TITR CORDELIA 16 mls/hr Protocol Titration 1,000 UNITS/HR Propofol 1,000,000 mcg in 100 mls @ 2.51 mls/hr 09/13/17 11:45 09/16/17 03:59 Diprivan - IVPB 45.02 mcg/kg/min TITR CORDELIA 22.6 mls/hr Protocol Administration 5 MCG/KG/MIN Piperacillin Sod/Tazobactam 100 mls @ 200 mls/hr 09/15/17 12:45 09/16/17 09: 23 Sod 3.375 gm/ Dextrose IVPB 200 mls/hr Q8H-IV CORDELIA Administration Sodium Chloride 1,000 mls @ 75 mls/hr 09/15/17 16:15 09/15/17 16:15 1/2 Normal Saline IV 75 mls/hr ASDIR CORDELIA Administration Insulin Aspart 1 vial 09/15/17 22:00 09/16/17 06:10 Novolog Vial Sliding Scale - SQ 4 units Q4HPO CORDELIA Administration Protocol Insulin Detemir 10 units 09/15/17 21:07 09/16/17 06:11 Levemir Vial SQ 10 units AM CORDELIA Administration Metoprolol Tartrate 5 mg 09/11/17 10:25 09/14/17 13:36 Lopressor Injection - IVPUSH 5 mg Q4H PRN Administration HYPERTENSION Mupirocin 1 applic 09/15/17 12:15 09/15/17 22:50 Bactroban Ointment (For Decolonization) - NS 09/20/17 12:14 1 applic BID CORDELIA Administration Ondansetron HCl 4 mg 09/11/17 02:02 Zofran Injection IVPUSH Q6H PRN NAUSEA Pantoprazole Sodium 40 mg 09/11/17 10:00 09/16/17 09:27 Protonix Iv IVPUSH 40 mg DAILY CORDELIA Administration Potassium Phos/Sodium Phos 1 packet 09/15/17 10:00 09/15/17 21:19 Phos-Nak Packet - NGT 1 packet BID CORDELIA Administration ASSESSMENT/PLAN: 62 yo F with PMHx of HTN, paroxysmal atrial fibrillation on apixaban, DM, HLD, CKD, GERD and colon CA s/p colectomy 2011 with mets to lung admitted to ICU for AMS with brain lesions on imaging ID: Acute sepsis could be 2/2 to PNA with L lung infiltrate Temperature spike yesterday-temp 101.3 Blood, urine, sputum culture- yeast in sputum, urine and blood pending UA CXR Zosyn 3.375g ivpb Q8H (day 2) Neuro/opth:. Intubated and off sedation for up to 3hrs post CT head and patient was able to follow commands, with movement on R>L side AMS 2/2 to cerebral edema from multiple acute infarcts with background Afib CT head w/o contrast done- no interval change noted Patient's daughter still inclined towards medical management To follow up with neurosurgery- Dr Goff about surgical options L eye hyphema- daughter requested eye protection- L eye patch, and cipro ointment OS Q2H Renal: SUSAN on CKD- worsening Cr from 1.8 to 2.1 today hypernatremia 1/2 NS rate reduced to 50ml/hr- per Dr Llanos Monitor lytes, replete CMP,Mg, Phosphorus Metabolic/Endocrine/GI/Lines: Dr Ashley- on board DM- with hyperglycemia bgm q4hrs novolog scale levemir 10 units am tube feeding Decadron 4mg ivpush Q6H ETT, LUE peripheral line, NGT, bateman Cardio: Htn HLD Afib Continue heparin drip for now to transition probably to eliquis when stable- per cardiology iv metoprolol prn -5mg cardizem drip-125mg@ 15/hr changed to - 90mg Q6H NGT ECHO- pending Hemonc: Colorectal cancer with lung mets Respiratory: Weak cough reflex Acute hypoxic resp failure- Intubated and off sedation for hours [id number]-450, PEEP-5, fi02-50%, RR-20, Settings changed to-fiO2-40%, 5/5, Duonebs nebs-1amp Q6H Albuterol nebs Q15 PRN Prophylaxis: on heparin gtt protonix 40mg ivpush bid Heel pads Dispo: Poor prognosis Daughter by the bedside Visit type - Emergency Visit Emergency Visit: Yes ED Registration Date: 09/10/17 Care time: The patient presented to the Emergency Department on the above date and was hospitalized for further evaluation of their emergent condition. - New Patient This patient is new to me today: No - Critical Care Critical Care patient: Yes Total Critical Care Time (in minutes): 39 Critical Care Statement: The care of this patient involved high complexity decision making to prevent further life threatening deterioration of the patient 's condition and/or to evaluate & treat vital organ system(s) failure or risk of failure.
[2017-09-16] MEDS: MINERAL OIL/PETROLATUM,WHITE 3.5 GM TUBE OU SCH ×2 (10:08→21:17)
[2017-09-16] MEDS: NAPH,MB-DB/K PH,MBDB POWDER PACKET NGT SCH (10:09)
[2017-09-16] MEDS: MUPIROCIN 2% TOPICAL OINTMENT FOR DECOLONIZATION NS SCH ×2 (10:13→21:19)
--- NOTE | 2017-09-16 10:23 | PN ---
Progress Note (short form) - Note Progress Note: off sedation opening her eyes moving right foot Vital Signs Period Temp Pulse Resp BP Sys/Mcdaniel Pulse Ox Last 24 Hr 98.6 F-100.4 F 69-87 18-22 124-138/66-75 100-100 remains intubated cor- rrr lungs decreased bs at bases abd soft,nt ext no edema CBC, BMP 09/16/17 05:10 09/16/17 05:10 cutlures pending cxray rotated, ?left base infiltrate Current Medications Acetaminophen (Ofirmev Injection -) 1,000 mg IVPB Q6H PRN PRN Reason: FEVER OR PAIN Last Admin: 09/15/17 12:30 Dose: 1,000 mg Albuterol/Ipratropium (Duoneb -) 1 amp NEB QIDR [facility] Last Admin: 09/16/17 05:35 Dose: 1 amp Artificial Tears (Artificial Tears Ointment -) 1 applic OU BID [facility] Last Admin: 09/16/17 10:08 Dose: 1 applic Atorvastatin Calcium (Lipitor -) 20 mg PO HS [facility] Last Admin: 09/15/17 21:17 Dose: 20 mg Chlorhexidine Gluconate (Hibiclens For Decolonization -) 1 applic TP HS [facility] Last Admin: 09/15/17 21:18 Dose: 1 applic Chlorhexidine Gluconate (Peridex -) 15 ml MM BID [facility] Last Admin: 09/16/17 09:27 Dose: 15 ml Dexamethasone Sodium Phosphate (Decadron Injection -) 4 mg IVPUSH Q6H-IV [facility] Last Admin: 09/16/17 09:23 Dose: 4 mg Heparin Sodium (Porcine) (Heparin -) 1,000 unit IVPUSH PRN PRN PRN Reason: Heparin Heparin Sodium (Porcine) (Heparin -) 5,000 unit IVPUSH PRN PRN PRN Reason: Heparin Hydralazine HCl (Apresoline Injection -) 10 mg IVPUSH Q6H PRN PRN Reason: HYPERTENSION Last Admin: 09/13/17 21:33 Dose: 10 mg Diltiazem HCl 125 mg/ Dextrose 125 mls @ 5 mls/hr IVPB TITR [facility]; 5 MG/HR PRN Reason: Protocol Last Admin: 09/16/17 01:00 Dose: 15 mg/hr, 15 mls/hr HEPARIN SOD,PORK IN 0.45% NACL (Heparin-1/2ns 25,000 Units/500) 25,000 units in 500 mls @ 20 mls/hr IVPB TITR [facility]; 1,000 UNITS/HR PRN Reason: Protocol Last Titration: 09/16/17 07:57 Dose: 800 units/hr, 16 mls/hr Propofol (Diprivan -) 1,000,000 mcg in 100 mls @ 2.51 mls/hr IVPB TITR [facility]; 5 MCG/KG/MIN PRN Reason: Protocol Last Admin: 09/16/17 03:59 Dose: 45.02 mcg/kg/min, 22.6 mls/hr Piperacillin Sod/Tazobactam (Sod 3.375 gm/ Dextrose) 100 mls @ 200 mls/hr IVPB Q8H-IV [facility] Last Admin: 09/16/17 09:23 Dose: 200 mls/hr Sodium Chloride (1/2 Normal Saline) 1,000 mls @ 75 mls/hr IV ASDIR [facility] Last Admin: 09/15/17 16:15 Dose: 75 mls/hr Insulin Aspart (Novolog Vial Sliding Scale -) 1 vial SQ Q4HPO [facility] PRN Reason: Protocol Last Admin: 09/16/17 10:25 Dose: 8 units Insulin Detemir (Levemir Vial) 10 units SQ AM [facility] Last Admin: 09/16/17 06:11 Dose: 10 units Metoprolol Tartrate (Lopressor Injection -) 5 mg IVPUSH Q4H PRN PRN Reason: HYPERTENSION Last Admin: 09/14/17 13:36 Dose: 5 mg Mupirocin (Bactroban Ointment (For Decolonization) -) 1 applic NS BID [facility] Stop: 09/20/17 12:14 Last Admin: 09/16/17 10:13 Dose: 1 applic Ondansetron HCl (Zofran Injection) 4 mg IVPUSH Q6H PRN PRN Reason: NAUSEA Pantoprazole Sodium (Protonix Iv) 40 mg IVPUSH DAILY [facility] Last Admin: 09/16/17 09:27 Dose: 40 mg Potassium Phos/Sodium Phos (Phos-Nak Packet -) 1 packet NGT BID [facility] Last Admin: 09/16/17 10:09 Dose: 1 packet a/p fevers- improved- continue zosyn, fl/u cultures respiratory failure CVA Afib metastatic colon cancer Renal insufficiency diabetes continue antibiotics f/uc cultures ?pneumonia overall prognosis poor
--- NOTE | 2017-09-16 12:59 | PN ---
Progress Note, Physician Chief Complaint: Intubated and sedated History of Present Illness: 62 year old woman with a PMHx of HTN, paroxysmal atrial fibrillation on apixaban , DM, HLD, CKD, GERD and colon CA s/p colectomy 2011 with mets to lung admitted with nausea and vomiting. +headache. Concern for lesion on head CT. MRI brain with acute infarcts no lesions. - Current Medication List Current Medications: Active Medications Acetaminophen (Ofirmev Injection -) 1,000 mg IVPB Q6H PRN PRN Reason: FEVER OR PAIN Last Admin: 09/15/17 12:30 Dose: 1,000 mg Albuterol/Ipratropium (Duoneb -) 1 amp NEB QIDR [facility] Last Admin: 09/16/17 05:35 Dose: 1 amp Artificial Tears (Artificial Tears Ointment -) 1 applic OU BID [facility] Last Admin: 09/16/17 10:08 Dose: 1 applic Atorvastatin Calcium (Lipitor -) 20 mg PO HS [facility] Last Admin: 09/15/17 21:17 Dose: 20 mg Chlorhexidine Gluconate (Hibiclens For Decolonization -) 1 applic TP HS [facility] Last Admin: 09/15/17 21:18 Dose: 1 applic Chlorhexidine Gluconate (Peridex -) 15 ml MM BID [facility] Last Admin: 09/16/17 09:27 Dose: 15 ml Dexamethasone Sodium Phosphate (Decadron Injection -) 4 mg IVPUSH Q6H-IV [facility] Last Admin: 09/16/17 09:23 Dose: 4 mg Heparin Sodium (Porcine) (Heparin -) 1,000 unit IVPUSH PRN PRN PRN Reason: Heparin Heparin Sodium (Porcine) (Heparin -) 5,000 unit IVPUSH PRN PRN PRN Reason: Heparin Hydralazine HCl (Apresoline Injection -) 10 mg IVPUSH Q6H PRN PRN Reason: HYPERTENSION Last Admin: 09/13/17 21:33 Dose: 10 mg Diltiazem HCl 125 mg/ Dextrose 125 mls @ 5 mls/hr IVPB TITR [facility]; 5 MG/HR PRN Reason: Protocol Last Admin: 09/16/17 01:00 Dose: 15 mg/hr, 15 mls/hr HEPARIN SOD,PORK IN 0.45% NACL (Heparin-1/2ns 25,000 Units/500) 25,000 units in 500 mls @ 20 mls/hr IVPB TITR [facility]; 1,000 UNITS/HR PRN Reason: Protocol Last Titration: 09/16/17 07:57 Dose: 800 units/hr, 16 mls/hr Propofol (Diprivan -) 1,000,000 mcg in 100 mls @ 2.51 mls/hr IVPB TITR [facility]; 5 MCG/KG/MIN PRN Reason: Protocol Last Admin: 09/16/17 03:59 Dose: 45.02 mcg/kg/min, 22.6 mls/hr Piperacillin Sod/Tazobactam (Sod 3.375 gm/ Dextrose) 100 mls @ 200 mls/hr IVPB Q8H-IV [facility] Last Admin: 09/16/17 09:23 Dose: 200 mls/hr Sodium Chloride (1/2 Normal Saline) 1,000 mls @ 75 mls/hr IV ASDIR [facility] Last Admin: 09/15/17 16:15 Dose: 75 mls/hr Insulin Aspart (Novolog Vial Sliding Scale -) 1 vial SQ Q4HPO [facility] PRN Reason: Protocol Last Admin: 09/16/17 10:25 Dose: 8 units Insulin Detemir (Levemir Vial) 10 units SQ AM [facility] Last Admin: 09/16/17 06:11 Dose: 10 units Metoprolol Tartrate (Lopressor Injection -) 5 mg IVPUSH Q4H PRN PRN Reason: HYPERTENSION Last Admin: 09/14/17 13:36 Dose: 5 mg Mupirocin (Bactroban Ointment (For Decolonization) -) 1 applic NS BID [facility] Stop: 09/20/17 12:14 Last Admin: 09/16/17 10:13 Dose: 1 applic Ondansetron HCl (Zofran Injection) 4 mg IVPUSH Q6H PRN PRN Reason: NAUSEA Pantoprazole Sodium (Protonix Iv) 40 mg IVPUSH DAILY [facility] Last Admin: 09/16/17 09:27 Dose: 40 mg Potassium Phos/Sodium Phos (Phos-Nak Packet -) 1 packet NGT BID [facility] Last Admin: 09/16/17 10:09 Dose: 1 packet - Objective Vital Signs: Vital Signs Temperature 98.6 F 09/16/17 06:00 Pulse Rate 70 09/16/17 06:00 Respiratory Rate 20 09/16/17 10:15 Blood Pressure 128/66 09/16/17 06:00 O2 Sat by Pulse Oximetry (%) 100 09/15/17 22:00 Constitutional: Yes: No Distress HENT: Yes: Atraumatic, Normocephalic Neck: Yes: Trachea Midline Cardiovascular: Yes: Regular Rate and Rhythm Respiratory: Yes: Mechanically Ventilated Gastrointestinal: Yes: Normal Bowel Sounds Extremities: Yes: WNL Edema: No Labs: CBC, BMP 09/16/17 05:10 09/16/17 05:10 INR, PTT INR 1.06 (0.82-1.09) 09/13/17 05:10 Problem List - Problems (1) Atrial fibrillation Assessment/Plan: 1) Paroxysmal atrial fibrillation with intermittent rapid afib and sinus rhythm on tele while on Dilt drip and Metoprolol IV. Continue IV Diltiazem and metoprolol for now, transition to PO/NGT when tolerating feeds. -On heparin drip as per neurology, consider transition to eliquis when stable. Echo ordered. 2) HTN: systolic BP is mildly elevated. Continue IV Diltiazem and Metoprolol for now. I3) Oncology -management as per primary team On decadron Code(s): I48.91 - UNSPECIFIED ATRIAL FIBRILLATION
[2017-09-16] MEDS ORDERED: CIPROFLOXACIN HCL 0.3% OPHTH 2.5ML BOTTLE OS SCH (13:30)
--- NOTE | 2017-09-16 13:30 | CONS ---
INFECTIOUS DISEASE CONSULTATION DATE OF CONSULTATION: 09/15/2017 Patient was seen and examined. Her care was discussed with the nursing agency manager. HISTORY OF PRESENT ILLNESS: This is a 62-year-old woman who was originally admitted on September 09 to the hospital. She had a stormy hospital course. She was originally admitted with nausea and vomiting on the , and she was found to have multiple CVAs on a brain MRI. Her port was nonfunctioning and was removed on September 11. She deteriorated and was intubated on the . She was started on ceftriaxone on the and has been on a Cardizem drip and sedation. Of note, she has a history of metastatic colon cancer with lung metastases. She also has atrial fibrillation. She is being followed by the critical care doctors as well as Neurology and Neurosurgery. I am asked to see her because she had a fever of 101. She is hemodynamically stable. She is intubated and sedated, and she is on a Cardizem drip. PAST MEDICAL HISTORY: Notable for history of colon cancer with metastases to the lung, currently on chemotherapy. She has a history of hypertension, atrial fibrillation, hyperlipidemia, diabetes, chronic kidney disease, GERD. She is status post colectomy and colostomy in 2011. She had a port placed on August 18. She has had an incisional hernia repair in 2013. She had a colon resection and colostomy in 2011 with later colostomy reversal. She is status post hysterectomy in 1999 and cholecystectomy in 2004. FAMILY HISTORY: Notable for 2 brothers, one has hypertension. Mom has had a CVA, and father is . ALLERGIES: No known drug allergies. MEDICATIONS: At the time of admission include Lipitor, insulin, gabapentin, Eliquis, Cardizem, Altace, metoprolol, and Percocet. REVIEW OF SYSTEMS: At the time of admission was nausea and vomiting. Currently, unresponsive and unable to give any history. Nurse reports she has no diarrhea. PHYSICAL EXAMINATION: Vital Signs: Her temperature at the time of exam was 101, with a pulse of 87, blood pressure 137/74, respiratory rate was 20. Her FiO2 was 50%. HEENT: She is normocephalic. Her left eye is bloody. She was seen by Ophthalmology. She is orally intubated. Skin: Her sites of the port removal: All sutures are intact, and there is no erythema or drainage. Heart: Regular rate and rhythm. Lungs: Diminished breath sounds at the bases. Abdomen: Soft. Extremities: Without edema. DIAGNOSTIC DATA: White count is 8.6, hemoglobin 8.1, platelets are 318. Her BUN 45 and creatinine 1.8 with a glucose of 324. Normal liver function tests. Urinalysis was ordered. Her chest x-ray showed a right-sided mass at the right hilum, possible infiltrate. In summary, this is a 62-year-old woman with fever on Rocephin for 48 hours, cerebrovascular accident, possible pneumonia, possible central fever given the multiple cerebrovascular accidents, history of atrial fibrillation, diabetes, colon cancer with lung metastases, renal insufficiency. I would repeat cultures, start her on vancomycin and Zosyn adjusted for her chronic renal insufficiency. Would check a vancomycin level in the morning, follow up cultures. Overall prognosis is poor. Case was discussed with the critical care MD. TIKI CLARKE M.D. [id number]
[2017-09-16] MEDS ORDERED: ALBUTEROL SO4 0.083% IH SOL 2.5 MG/3 ML VIAL.NEB. NEB PRN (13:37)
--- NOTE | 2017-09-16 13:58 | PN ---
Progress Note, Physician History of Present Illness: Pt seen and examined at bedside. She remains in the ICU. She remains intubated. - Current Medication List Current Medications: Active Medications Acetaminophen (Ofirmev Injection -) 1,000 mg IVPB Q6H PRN PRN Reason: FEVER OR PAIN Last Admin: 09/15/17 12:30 Dose: 1,000 mg Albuterol Sulfate (Ventolin 0.083% Nebulizer Soln -) 1 amp NEB Q4H PRN PRN Reason: SHORT OF BREATH/WHEEZING Albuterol/Ipratropium (Duoneb -) 1 amp NEB RQID [facility] Artificial Tears (Artificial Tears Ointment -) 1 applic OU BID [facility] Last Admin: 09/16/17 10:08 Dose: 1 applic Atorvastatin Calcium (Lipitor -) 20 mg PO HS [facility] Last Admin: 09/15/17 21:17 Dose: 20 mg Chlorhexidine Gluconate (Hibiclens For Decolonization -) 1 applic TP HS [facility] Last Admin: 09/15/17 21:18 Dose: 1 applic Chlorhexidine Gluconate (Peridex -) 15 ml MM BID [facility] Last Admin: 09/16/17 09:27 Dose: 15 ml Ciprofloxacin (Ciloxan 0.3% Eye Drops -) 2 drop OS Q2H [facility] Dexamethasone Sodium Phosphate (Decadron Injection -) 4 mg IVPUSH Q6H-IV [facility] Last Admin: 09/16/17 09:23 Dose: 4 mg Diltiazem HCl (Cardizem -) 90 mg NGT Q6HPO [facility] Heparin Sodium (Porcine) (Heparin -) 1,000 unit IVPUSH PRN PRN PRN Reason: Heparin Heparin Sodium (Porcine) (Heparin -) 5,000 unit IVPUSH PRN PRN PRN Reason: Heparin Hydralazine HCl (Apresoline Injection -) 10 mg IVPUSH Q6H PRN PRN Reason: HYPERTENSION Last Admin: 09/13/17 21:33 Dose: 10 mg HEPARIN SOD,PORK IN 0.45% NACL (Heparin-1/2ns 25,000 Units/500) 25,000 units in 500 mls @ 20 mls/hr IVPB TITR [facility]; 1,000 UNITS/HR PRN Reason: Protocol Last Titration: 09/16/17 07:57 Dose: 800 units/hr, 16 mls/hr Propofol (Diprivan -) 1,000,000 mcg in 100 mls @ 2.51 mls/hr IVPB TITR [facility]; 5 MCG/KG/MIN PRN Reason: Protocol Last Admin: 09/16/17 03:59 Dose: 45.02 mcg/kg/min, 22.6 mls/hr Piperacillin Sod/Tazobactam (Sod 3.375 gm/ Dextrose) 100 mls @ 200 mls/hr IVPB Q8H-IV [facility] Last Admin: 09/16/17 09:23 Dose: 200 mls/hr Sodium Chloride (1/2 Normal Saline) 1,000 mls @ 75 mls/hr IV ASDIR [facility] Last Admin: 09/15/17 16:15 Dose: 75 mls/hr Insulin Aspart (Novolog Vial Sliding Scale -) 1 vial SQ Q4HPO [facility] PRN Reason: Protocol Last Admin: 09/16/17 10:25 Dose: 8 units Insulin Detemir (Levemir Vial) 10 units SQ AM [facility] Last Admin: 09/16/17 06:11 Dose: 10 units Metoprolol Tartrate (Lopressor Injection -) 5 mg IVPUSH Q4H PRN PRN Reason: HYPERTENSION Last Admin: 09/14/17 13:36 Dose: 5 mg Mupirocin (Bactroban Ointment (For Decolonization) -) 1 applic NS BID [facility] Stop: 09/20/17 12:14 Last Admin: 09/16/17 10:13 Dose: 1 applic Ondansetron HCl (Zofran Injection) 4 mg IVPUSH Q6H PRN PRN Reason: NAUSEA Pantoprazole Sodium (Protonix Iv) 40 mg IVPUSH DAILY [facility] Last Admin: 09/16/17 09:27 Dose: 40 mg Potassium Phos/Sodium Phos (Phos-Nak Packet -) 1 packet NGT BID [facility] Last Admin: 09/16/17 10:09 Dose: 1 packet - Objective Vital Signs: Vital Signs Temperature 98.6 F 09/16/17 06:00 Pulse Rate 70 09/16/17 06:00 Respiratory Rate 21 09/16/17 12:10 Blood Pressure 128/66 09/16/17 06:00 O2 Sat by Pulse Oximetry (%) 100 09/15/17 22:00 Constitutional: Yes: Calm Cardiovascular: Yes: S1, S2 Respiratory: Yes: Mechanically Ventilated Gastrointestinal: Yes: Soft Genitourinary: Yes: Bateman Present Musculoskeletal: Yes: Muscle Weakness Edema: Yes Edema: LLE: Trace, RLE: Trace Neurological: Yes: Lethargy, Other (sedation just held to assess mental status) Labs: CBC, BMP 09/16/17 05:10 09/16/17 05:10 INR, PTT INR 1.06 (0.82-1.09) 09/13/17 05:10 - ....Imaging Chest X-ray: Report Reviewed Cat Scan: Report Reviewed Problem List - Problems (1) Brain metastasis Code(s): C79.31 - SECONDARY MALIGNANT NEOPLASM OF BRAIN (2) Headache Code(s): R51 - HEADACHE Qualifiers: Headache chronicity pattern: unspecified pattern Intractability: intractable (3) Metastatic colorectal cancer Code(s): C78.5 - SECONDARY MALIGNANT NEOPLASM OF LARGE INTESTINE AND RECTUM (4) SUSAN (acute kidney injury) Code(s): N17.9 - ACUTE KIDNEY FAILURE, UNSPECIFIED (5) Atrial fibrillation Code(s): I48.91 - UNSPECIFIED ATRIAL FIBRILLATION (6) Cancer, colon Code(s): C18.9 - MALIGNANT NEOPLASM OF COLON, UNSPECIFIED Qualifiers: Colon location: unspecified part of colon Qualified Code(s): C18.9 - Malignant neoplasm of colon, unspecified (7) Lung mass Code(s): R91.8 - OTHER NONSPECIFIC ABNORMAL FINDING OF LUNG FIELD Assessment/Plan Current Medications Generic Name Dose Route Start Last Admin Trade Name Freq PRN Reason Stop Dose Admin Acetaminophen 1,000 mg 09/15/17 11:50 09/15/17 12:30 Ofirmev Injection - IVPB 1,000 mg Q6H PRN Administration FEVER OR PAIN Albuterol Sulfate 1 amp 09/16/17 13:37 Ventolin 0.083% Nebulizer Soln - NEB Q4H PRN SHORT OF BREATH/WHEEZING Albuterol/Ipratropium 1 amp 09/16/17 13:53 Duoneb - NEB RQID [facility] Artificial Tears 1 applic 09/15/17 22:00 09/16/17 10:08 Artificial Tears Ointment - OU 1 applic BID [facility] Administration Atorvastatin Calcium 20 mg 09/11/17 22:00 09/15/17 21:17 Lipitor - PO 20 mg HS [facility] Administration Chlorhexidine Gluconate 1 applic 09/15/17 22:00 09/15/17 21:18 Hibiclens For Decolonization - TP 1 applic HS [facility] Administration Chlorhexidine Gluconate 15 ml 09/15/17 22:00 09/16/17 09:27 Peridex - MM 15 ml BID [facility] Administration Ciprofloxacin 2 drop 09/16/17 13:30 Ciloxan 0.3% Eye Drops - OS Q2H [facility] Dexamethasone Sodium Phosphate 4 mg 09/13/17 21:00 09/16/17 09:23 Decadron Injection - IVPUSH 4 mg Q6H-IV [facility] Administration Diltiazem HCl 90 mg 09/16/17 18:00 Cardizem - NGT Q6HPO [facility] Heparin Sodium (Porcine) 1,000 unit 09/12/17 19:46 Heparin - IVPUSH PRN PRN Heparin Heparin Sodium (Porcine) 5,000 unit 09/12/17 19:46 Heparin - IVPUSH PRN PRN Heparin Hydralazine HCl 10 mg 09/11/17 10:25 09/13/17 21:33 Apresoline Injection - IVPUSH 10 mg Q6H PRN Administration HYPERTENSION HEPARIN SOD,PORK IN 0.45% NACL 25,000 units in 500 mls @ 20 mls/hr 09/12/17 20 :00 09/16/17 07:57 Heparin-1/2ns 25,000 Units/500 IVPB 800 units/hr TITR [facility] 16 mls/hr Protocol Titration 1,000 UNITS/HR Propofol 1,000,000 mcg in 100 mls @ 2.51 mls/hr 09/13/17 11:45 09/16/17 03:59 Diprivan - IVPB 45.02 mcg/kg/min TITR [facility] 22.6 mls/hr Protocol Administration 5 MCG/KG/MIN Piperacillin Sod/Tazobactam 100 mls @ 200 mls/hr 09/15/17 12:45 09/16/17 09: 23 Sod 3.375 gm/ Dextrose IVPB 200 mls/hr Q8H-IV [facility] Administration Sodium Chloride 1,000 mls @ 75 mls/hr 09/15/17 16:15 09/15/17 16:15 1/2 Normal Saline IV 75 mls/hr ASDIR [facility] Administration Insulin Aspart 1 vial 09/15/17 22:00 09/16/17 10:25 Novolog Vial Sliding Scale - SQ 8 units Q4HPO [facility] Administration Protocol Insulin Detemir 10 units 09/15/17 21:07 09/16/17 06:11 Levemir Vial SQ 10 units AM [facility] Administration Metoprolol Tartrate 5 mg 09/11/17 10:25 09/14/17 13:36 Lopressor Injection - IVPUSH 5 mg Q4H PRN Administration HYPERTENSION Mupirocin 1 applic 09/15/17 12:15 09/16/17 10:13 Bactroban Ointment (For Decolonization) - NS 09/20/17 12:14 1 applic BID [facility] Administration Ondansetron HCl 4 mg 09/11/17 02:02 Zofran Injection IVPUSH Q6H PRN NAUSEA Pantoprazole Sodium 40 mg 09/11/17 10:00 09/16/17 09:27 Protonix Iv IVPUSH 40 mg DAILY [facility] Administration Potassium Phos/Sodium Phos 1 packet 09/15/17 10:00 09/16/17 10:09 Phos-Nak Packet - NGT 1 packet BID [facility] Administration Impression 1. CKD 2. SUSAN 3. DM 4. htn 5. chol 6. chemo port malfunction 7. a-fib 8. lung mass 9. proteinuria 10. adenocarcinoma 11. CVA 12. acute resp failure Plan - cont hypotonic fluids - stop phos supplements - repeat labs in am - renal function is worse than yesterday - maintain bateman and monitor output - can decrease rate of fluids - cardiology input appreciated - family awaiting second opinion from neurosurgery - monitor bp - overall prognosis poor - reviewed chart and notes - cont ICU care - discussed with nurse - will follow Dr Llanos
--- NOTE | 2017-09-16 14:13 | PN ---
Teaching Attending Note Name of Resident: Lisa Mott ATTENDING PHYSICIAN STATEMENT I saw and evaluated the patient. I reviewed the resident's note and discussed the case with the resident. I agree with the resident's findings and plan as documented. SUBJECTIVE: Pt seen and examined in the ICU. Remains intubated, arousable off sedation. Not moving left side but weakly follows commands on right. Repeat CT head unchanged from prior. OBJECTIVE: Last Vital Signs Temp Pulse Resp BP Pulse Ox 98.6 F 70 21 128/66 100 09/16/17 06:00 09/16/17 06:00 09/16/17 12:10 09/16/17 06:00 09/15/17 22:00 Intake & Output 09/13/17 09/14/17 09/15/17 09/16/17 23:59 23:59 23:59 23:59 Intake Total 2234 3938.2 3276.8 1099.3 Output Total 1500 1150 1250 700 Balance 734 2788.2 2026.8 399.3 Weight 83.659 kg 85.6 kg 87.317 kg 88.042 kg Gen: intubated, arousable Heart: RRR Lung: scattered rhonchi Abd: soft, nontender Ext: + edema CBC, BMP 09/16/17 05:10 09/16/17 05:10 Active Medications Acetaminophen (Ofirmev Injection -) 1,000 mg IVPB Q6H PRN PRN Reason: FEVER OR PAIN Last Admin: 09/15/17 12:30 Dose: 1,000 mg Albuterol Sulfate (Ventolin 0.083% Nebulizer Soln -) 1 amp NEB Q4H PRN PRN Reason: SHORT OF BREATH/WHEEZING Albuterol/Ipratropium (Duoneb -) 1 amp NEB RQID [facility] Artificial Tears (Artificial Tears Ointment -) 1 applic OU BID [facility] Last Admin: 09/16/17 10:08 Dose: 1 applic Atorvastatin Calcium (Lipitor -) 20 mg PO HS [facility] Last Admin: 09/15/17 21:17 Dose: 20 mg Chlorhexidine Gluconate (Hibiclens For Decolonization -) 1 applic TP HS [facility] Last Admin: 09/15/17 21:18 Dose: 1 applic Chlorhexidine Gluconate (Peridex -) 15 ml MM BID [facility] Last Admin: 09/16/17 09:27 Dose: 15 ml Ciprofloxacin (Ciloxan 0.3% Eye Drops -) 2 drop OS Q2H [facility] Dexamethasone Sodium Phosphate (Decadron Injection -) 4 mg IVPUSH Q6H-IV [facility] Last Admin: 09/16/17 09:23 Dose: 4 mg Diltiazem HCl (Cardizem -) 90 mg NGT Q6HPO [facility] Heparin Sodium (Porcine) (Heparin -) 1,000 unit IVPUSH PRN PRN PRN Reason: Heparin Heparin Sodium (Porcine) (Heparin -) 5,000 unit IVPUSH PRN PRN PRN Reason: Heparin Hydralazine HCl (Apresoline Injection -) 10 mg IVPUSH Q6H PRN PRN Reason: HYPERTENSION Last Admin: 09/13/17 21:33 Dose: 10 mg HEPARIN SOD,PORK IN 0.45% NACL (Heparin-1/2ns 25,000 Units/500) 25,000 units in 500 mls @ 20 mls/hr IVPB TITR [facility]; 1,000 UNITS/HR PRN Reason: Protocol Last Titration: 09/16/17 07:57 Dose: 800 units/hr, 16 mls/hr Propofol (Diprivan -) 1,000,000 mcg in 100 mls @ 2.51 mls/hr IVPB TITR [facility]; 5 MCG/KG/MIN PRN Reason: Protocol Last Admin: 09/16/17 03:59 Dose: 45.02 mcg/kg/min, 22.6 mls/hr Piperacillin Sod/Tazobactam (Sod 3.375 gm/ Dextrose) 100 mls @ 200 mls/hr IVPB Q8H-IV [facility] Last Admin: 09/16/17 09:23 Dose: 200 mls/hr Sodium Chloride (1/2 Normal Saline) 1,000 mls @ 75 mls/hr IV ASDIR [facility] Last Admin: 09/15/17 16:15 Dose: 75 mls/hr Insulin Aspart (Novolog Vial Sliding Scale -) 1 vial SQ Q4HPO [facility] PRN Reason: Protocol Last Admin: 09/16/17 10:25 Dose: 8 units Insulin Detemir (Levemir Vial) 10 units SQ AM [facility] Last Admin: 09/16/17 06:11 Dose: 10 units Metoprolol Tartrate (Lopressor Injection -) 5 mg IVPUSH Q4H PRN PRN Reason: HYPERTENSION Last Admin: 09/14/17 13:36 Dose: 5 mg Mupirocin (Bactroban Ointment (For Decolonization) -) 1 applic NS BID [facility] Stop: 09/20/17 12:14 Last Admin: 09/16/17 10:13 Dose: 1 applic Ondansetron HCl (Zofran Injection) 4 mg IVPUSH Q6H PRN PRN Reason: NAUSEA Pantoprazole Sodium (Protonix Iv) 40 mg IVPUSH DAILY [facility] Last Admin: 09/16/17 09:27 Dose: 40 mg ASSESSMENT AND PLAN: Multiple Acute Embolic CVA Acute Hypoxic Respiratory Failure Pneumonia Atrial Fibrillation Metastatic Colon Ca to Lung Acute on Chronic Renal Failure HTN DM Hypercholesterolemia - continue antibiotics - f/u cultures - rate controlled - continue anticoagulation - neurosurgery f/u - IVF - monitor urine output, creatinine - minimize sedation to assess mental status - spontaneous breathing trials as tolerated - pt with poor cough during suctioning, continue to monitor - enteral feeds - DVT/GI prophylaxis - continue ICU monitoring critical care time spent in reviewing chart, evaluating patient and formulating plan 35min
[2017-09-16] MEDS: CIPROFLOXACIN 0.3% EYE DROPS 5 ML BOTTLE OS SCH ×5 (14:45→23:42)
--- NOTE | 2017-09-16 15:56 | PN ---
Progress Note, Physician Chief Complaint: STILL JOANNA FROM SEDATION SEDATION MEDS OFF NOW INTUBATED FAMILY BEDSIDE RESPONSIVE TO LIGHT STIMULI - Current Medication List Current Medications: Active Medications Acetaminophen (Ofirmev Injection -) 1,000 mg IVPB Q6H PRN PRN Reason: FEVER OR PAIN Last Admin: 09/15/17 12:30 Dose: 1,000 mg Albuterol Sulfate (Ventolin 0.083% Nebulizer Soln -) 1 amp NEB Q4H PRN PRN Reason: SHORT OF BREATH/WHEEZING Albuterol/Ipratropium (Duoneb -) 1 amp NEB RQID COR[facility]IA Artificial Tears (Artificial Tears Ointment -) 1 applic OU BID [facility] Last Admin: 09/16/17 10:08 Dose: 1 applic Atorvastatin Calcium (Lipitor -) 20 mg PO HS [facility] Last Admin: 09/15/17 21:17 Dose: 20 mg Chlorhexidine Gluconate (Hibiclens For Decolonization -) 1 applic TP HS [facility] Last Admin: 09/15/17 21:18 Dose: 1 applic Chlorhexidine Gluconate (Peridex -) 15 ml MM BID [facility] Last Admin: 09/16/17 09:27 Dose: 15 ml Ciprofloxacin (Ciloxan 0.3% Eye Drops --) 2 drop OS Q2H [facility] Dexamethasone Sodium Phosphate (Decadron Injection -) 4 mg IVPUSH Q6H-IV [facility] Last Admin: 09/16/17 09:23 Dose: 4 mg Diltiazem HCl (Cardizem -) 90 mg NGT Q6HPO [facility] Heparin Sodium (Porcine) (Heparin -) 1,000 unit IVPUSH PRN PRN PRN Reason: Heparin Heparin Sodium (Porcine) (Heparin -) 5,000 unit IVPUSH PRN PRN PRN Reason: Heparin Hydralazine HCl (Apresoline Injection -) 10 mg IVPUSH Q6H PRN PRN Reason: HYPERTENSION Last Admin: 09/13/17 21:33 Dose: 10 mg HEPARIN SOD,PORK IN 0.45% NACL (Heparin-1/2ns 25,000 Units/500) 25,000 units in 500 mls @ 20 mls/hr IVPB TITR CORDELIA; 1,000 UNITS/HR PRN Reason: Protocol Last Titration: 09/16/17 07:57 Dose: 800 units/hr, 16 mls/hr Propofol (Diprivan -) 1,000,000 mcg in 100 mls @ 2.51 mls/hr IVPB TITR CORDELIA; 5 MCG/KG/MIN PRN Reason: Protocol Last Admin: 09/16/17 03:59 Dose: 45.02 mcg/kg/min, 22.6 mls/hr Piperacillin Sod/Tazobactam (Sod 3.375 gm/ Dextrose) 100 mls @ 200 mls/hr IVPB Q8H-IV [facility] Last Admin: 09/16/17 09:23 Dose: 200 mls/hr Sodium Chloride (1/2 Normal Saline) 1,000 mls @ 75 mls/hr IV ASDIR [facility] Last Admin: 09/15/17 16:15 Dose: 75 mls/hr Insulin Aspart (Novolog Vial Sliding Scale -) 1 vial SQ Q4HPO COR[facility] PRN Reason: Protocol Last Admin: 09/16/17 10:25 Dose: 8 units Insulin Detemir (Levemir Vial) 10 units SQ AM [facility] Last Admin: 09/16/17 06:11 Dose: 10 units Metoprolol Tartrate (Lopressor Injection -) 5 mg IVPUSH Q4H PRN PRN Reason: HYPERTENSION Last Admin: 09/14/17 13:36 Dose: 5 mg Mupirocin (Bactroban Ointment (For Decolonization) -) 1 applic NS BID [facility] Stop: 09/20/17 12:14 Last Admin: 09/16/17 10:13 Dose: 1 applic Ondansetron HCl (Zofran Injection) 4 mg IVPUSH Q6H PRN PRN Reason: NAUSEA Pantoprazole Sodium (Protonix Iv) 40 mg IVPUSH DAILY [facility] Last Admin: 09/16/17 09:27 Dose: 40 mg - Objective Vital Signs: Vital Signs Temperature 98.6 F 09/16/17 06:00 Pulse Rate 70 09/16/17 06:00 Respiratory Rate 21 09/16/17 15:38 Blood Pressure 128/66 09/16/17 06:00 O2 Sat by Pulse Oximetry (%) 100 09/15/17 22:00 Constitutional: Yes: Mild Distress Eyes: Yes: Other HENT: Yes: WNL Neck: Yes: WNL Cardiovascular: Yes: WNL Respiratory: Yes: Mechanically Ventilated Gastrointestinal: Yes: WNL Genitourinary: Yes: Mcdonald Present Musculoskeletal: Yes: Muscle Weakness Extremities: Yes: WNL Edema: Yes Edema: LUE: 1+, RUE: 1+, LLE: 1+, RLE: 1+ Peripheral Pulses WNL: Yes Integumentary: Yes: WNL Wound/Incision: Yes: Dressing Dry and Intact Neurological: Yes: Weakness, Other ...Motor Strength: LUE, LLE, RUE, RLE Labs: CBC, BMP 09/16/17 05:10 09/16/17 05:10 INR, PTT INR 1.06 (0.82-1.09) 09/13/17 05:10 Problem List - Problems (1) Brain metastasis Code(s): C79.31 - SECONDARY MALIGNANT NEOPLASM OF BRAIN (2) Headache Code(s): R51 - HEADACHE Qualifiers: Headache chronicity pattern: unspecified pattern Intractability: intractable (3) Intractable vomiting with nausea Code(s): R11.2 - NAUSEA WITH VOMITING, UNSPECIFIED Qualifiers: Vomiting type: unspecified Qualified Code(s): R11.2 - Nausea with vomiting , unspecified (4) SUSAN (acute kidney injury) Code(s): N17.9 - ACUTE KIDNEY FAILURE, UNSPECIFIED (5) Cancer, colon Code(s): C18.9 - MALIGNANT NEOPLASM OF COLON, UNSPECIFIED Qualifiers: Colon location: unspecified part of colon Qualified Code(s): C18.9 - Malignant neoplasm of colon, unspecified (6) Lung mass Code(s): R91.8 - OTHER NONSPECIFIC ABNORMAL FINDING OF LUNG FIELD (7) CVA (cerebral vascular accident) Code(s): I63.9 - CEREBRAL INFARCTION, UNSPECIFIED Assessment/Plan MECHANICAL VENTILLATION WEAN TOLERATED IVF PAIN MEDS PRN NEUROLOGY AND NEURO SURGERY CONSULT APPRECIATED FAMILY BEDSIDE WILL CONTINUE TO OBSERVE CVA/BRAIN METS HOPEFUL PATIENT WILL AWAKEN AND EXTUBATED OVERALL PROGNOSIS DISCUSSED WITH FAMILY AND THEY ARE AWARE OF COLON/LUNG/BRAIN METS WITH MULTIPLE BRAIN INFARCTS. HD NOT NEEDED YET, NEPHROLOGY F/U WITH IVF FOR NOW AC FOR BRAIN INFARCTS TOLERATED MONITOR H/H SCD FOR DVT PREVENTION
[2017-09-16] MEDS: SODIUM CHLORIDE 0.45% 1,000 ML IV SCH ×2 (16:15→20:00)
--- NOTE | 2017-09-16 18:13 | CONSULT ---
Consult - text type - Consultation Consultation Note: NEUROLOGY FOLLOW-UP Events reviewed, patient examine. Discussed with daughter. Dr. Goff's consultation is read and greatly appreciated. Favors observation and conservative Rx. Patient is more alert today, following commands. Exam: Lethargic. Opens eyes and squeezes right hand on command. Left sided weakness. Left leg rests everted. Conjugate Left and downward gaze deviation when lethagic- improves with arousal. Right pupil 5mm, left 3mm- both reactive. Full EOM's. Corneal's +/+ IMP: More alert today. Following commands. No signs of herniation. Stable exam. Suggest: Continue current regimen. Repeat CT QOD. Thank you very much, Daniel Pulido MD
[2017-09-16] MEDS: dilTIAZem HCL 60 MG TABLET (FP) NGT SCH ×2 (18:16→23:41)
[2017-09-16] MEDS: METOPROLOL TARTRATE 5 MG/5 ML VIAL IVPUSH PRN (18:52)
[2017-09-16] MEDS: ATORVASTATIN CA 20 MG TABLET (FP) PO SCH (21:17)
[2017-09-16] MEDS: HEPARIN SOD,PORK IN 0.45% NACL 25,000 UNITS/500 ML INFUS.BAG IVPB SCH (21:18)
[2017-09-16] MEDS: CHLORHEXIDINE GLUCONATE 4% CLEANSER FOR DECOLONIZATION TP SCH (21:19)
[2017-09-17] MEDS: PROPOFOL 1,000,000 MCG/100 ML VIAL IVPB SCH ×2 (01:00→05:00)
[2017-09-17] MEDS: CIPROFLOXACIN 0.3% EYE DROPS 5 ML BOTTLE OS SCH ×12 (01:38→23:27)
[2017-09-17] MEDS: PIPERACILLIN/TAZOB 3.375 GM 3.375 GM in DEXTROSE 5%-WATER - 100 ML IVPB SCH ×3 (02:40→17:06)
[2017-09-17] MEDS: DEXAMETHASONE SOD PHOSPHATE 4 MG/1 ML VIAL IVPUSH SCH ×4 (02:44→21:10)
[2017-09-17] MEDS: INSULIN SLIDING SCALE (NOVOLOG) 1 VIAL SQ SCH ×6 (02:45→22:37)
[2017-09-17] MEDS: dilTIAZem HCL 60 MG TABLET (FP) NGT SCH ×4 (05:59→23:29)
[2017-09-17] MEDS: INSULIN DETEMIR 100 UNITS/ML MDV SQ SCH (06:01)
[2017-09-17 06:53] LABS: HEMATOCRIT 28.3 % (32.4-45.2); HEMOGLOBIN 8.9 GM/dL (10.7-15.3); MCH 25.9 pg (25.7-33.7); MCHC 31.6 g/dl (32.0-36.0); MEAN CELL VOLUME 82.1 fl (80-96); MEAN PLT VOLUME 8.4 fl (7.5-11.1); PLATELET COUNT 320 K/MM3 (134-434); RBC 3.45 M/mm3 (3.60-5.2); RDW 16.8 % (11.6-15.6); WHITE BLOOD COUNT 12.8 K/mm3 (4.0-10.0)
[2017-09-17 07:03] LABS: INR 0.96 (0.82-1.09); PROTHROMBIN TIME (PATIENT) 10.9 SEC (9.98-11.88)
[2017-09-17 07:35] LABS: ALBUMIN 2.1 g/dl (3.4-5.0); ANION GAP 12 (8-16); BLOOD UREA NITROGEN 58 mg/dL (7-18); CALCIUM 7.8 mg/dL (8.5-10.1); CHLORIDE 116 mmol/L (98-107); CO2 16 mmol/L (21-32); CREATININE 2.1 mg/dL (0.55-1.02); GLUCOSE,RANDOM 300 mg/dL (74-106); PHOSPHOROUS 5.4 mg/dL (2.5-4.9); POTASSIUM 4.2 mmol/L (3.5-5.1); SGOT/AST 16 U/L (15-37); SGPT/ALT 19 U/L (12-78); SODIUM 144 mmol/L (136-145)
[2017-09-17 07:38] LABS: ALK PHOS 96 U/L (45-117); BILIRUBIN,TOTAL 0.4 mg/dL (0.2-1.0); TOT PROT 5.4 g/dl (6.4-8.2)
[2017-09-17] MEDS: ALBUTEROL SO4 2.5/IPRATROPIUM 0.5 INH SOL 3 ML VIAL.NEB. NEB SCH ×3 (08:41→18:24)
--- NOTE | 2017-09-17 09:36 | PN ---
Physical Exam: SUBJECTIVE: Patient seen and examined. Had runs of afib with RVR aborted with iv lopressor. Started NGT diltiazem yesterday. Was sedated overnight but off sedation since 6am this am. Now able to follow commands and move all limbs. OBJECTIVE: Vital Signs Period Temp Pulse Resp BP Sys/Mcdaniel Pulse Ox Last 24 Hr 98.7 F-99.5 F 63-133 15-22 126-164/44-77 100-100 Intake & Output 09/14/17 09/15/17 09/16/17 09/17/17 23:59 23:59 23:59 23:59 Intake Total 3938.2 3276.8 2898.1 2104.2 Output Total 1150 1250 1900 1300 Balance 2788.2 2026.8 998.1 804.2 Weight 85.6 kg 87.317 kg 88.042 kg 88.632 kg GENERAL: The patient is intubated, off sedation, but drowsy. HEAD: Healing bruise over L eye. EYES: Bilaterally reacting pupils. Ecchymosis of L eye ENT: Intubated, and off sedation-450, rr-20, fi02-8/5, NGT in place NECK: supple. LUNGS: Breath sounds anterior lung reduced L HEART: Regular rate and rhythm, S1, S2 ABDOMEN: Soft, normoactive bowel sounds. EXTREMITIES: 2+ pulses, warm, well-perfused, SCDs in place. 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 limbs PSYCH: Unable to assess SKIN: Warm, dry Lines: NGT, ETT, RUE peripheral line, bateman CBC, BMP 09/17/17 06:25 09/17/17 06:25 Laboratory Results - last 24 hr 09/16/17 09/16/17 09/16/17 10:22 18:10 21:33 WBC RBC Hgb Hct MCV MCH MCHC RDW Plt Count MPV Neutrophils % Lymphocytes % PT with INR INR PTT (Actin FS) Sodium Potassium Chloride Carbon Dioxide Anion Gap BUN Creatinine Creat Clearance w eGFR POC Glucometer [phone] [phone] Random Glucose Calcium Phosphorus Magnesium Total Bilirubin AST ALT Alkaline Phosphatase Total Protein Albumin 09/17/17 09/17/17 09/17/17 02:44 06:09 06:25 WBC RBC Hgb Hct MCV MCH MCHC RDW Plt Count MPV Neutrophils % Lymphocytes % PT with INR INR PTT (Actin FS) 62.9 H Sodium Potassium Chloride Carbon Dioxide Anion Gap BUN Creatinine Creat Clearance w eGFR POC Glucometer [phone] Random Glucose Calcium Phosphorus Magnesium Total Bilirubin AST ALT Alkaline Phosphatase Total Protein Albumin 09/17/17 09/17/17 09/17/17 06:25 06:25 06:25 WBC 12.8 H D RBC 3.45 L Hgb 8.9 L Hct 28.3 L MCV 82.1 MCH 25.9 MCHC 31.6 L RDW 16.8 H Plt Count 320 MPV 8.4 Neutrophils % No Result Required. Lymphocytes % No Result Required. PT with INR 10.90 INR 0.96 PTT (Actin FS) Sodium 144 Potassium 4.2 Chloride 116 H Carbon Dioxide 16 L Anion Gap 12 BUN 58 H Creatinine 2.1 H Creat Clearance w eGFR 24.02 POC Glucometer Random Glucose 300 H Calcium 7.8 L Phosphorus 5.4 H Magnesium 3.0 H Total Bilirubin 0.4 D AST 16 D ALT 19 D Alkaline Phosphatase 96 Total Protein 5.4 L Albumin 2.1 L Microbiology 09/15/17 12:00 Gram Stain - Final Sputum - Endotrachea Suction/Ventilator Sputum Culture - Final Yeast Like Organism 09/15/17 12:52 Blood Culture - Preliminary Blood - Peripheral Venous NO GROWTH OBTAINED AFTER 48 HOURS, INCUBATION TO CONTINUE FOR 3 DAYS. 09/15/17 12:45 Blood Culture - Preliminary Blood - Peripheral Venous NO GROWTH OBTAINED AFTER 48 HOURS, INCUBATION TO CONTINUE FOR 3 DAYS. Active Medications Generic Name Dose Route Start Last Admin Trade Name Alfonso PRN Reason Stop Dose Admin Acetaminophen 1,000 mg 09/15/17 11:50 09/15/17 12:30 Ofirmev Injection - IVPB 1,000 mg Q6H PRN Administration FEVER OR PAIN Albuterol Sulfate 1 amp 09/16/17 13:37 Ventolin 0.083% Nebulizer Soln - NEB Q4H PRN SHORT OF BREATH/WHEEZING Albuterol/Ipratropium 1 amp 09/16/17 13:53 09/17/17 08:41 Duoneb - NEB 1 amp RQID CORDELIA Administration Artificial Tears 1 applic 09/15/17 22:00 09/16/17 21:17 Artificial Tears Ointment - OU 1 applic BID CORDELIA Administration Atorvastatin Calcium 20 mg 09/11/17 22:00 09/16/17 21:17 Lipitor - PO 20 mg HS CORDELIA Administration Chlorhexidine Gluconate 1 applic 09/15/17 22:00 09/16/17 21:19 Hibiclens For Decolonization - TP 1 applic HS [facility]IA Administration Chlorhexidine Gluconate 15 ml 09/15/17 22:00 09/16/17 21:19 Peridex - MM 15 ml BID COR[facility]IA Administration Ciprofloxacin 2 drop 09/16/17 14:45 09/17/17 06:25 Ciloxan 0.3% Eye Drops -- OS 2 drop Q2H CORDELIA Administration Dexamethasone Sodium Phosphate 4 mg 09/13/17 21:00 09/17/17 08:38 Decadron Injection - IVPUSH 4 mg Q6H-IV [facility]IA Administration Diltiazem HCl 90 mg 09/16/17 18:00 09/17/17 05:59 Cardizem - NGT 90 mg Q6HPO CORDELIA Administration Heparin Sodium (Porcine) 1,000 unit 09/12/17 19:46 Heparin - IVPUSH PRN PRN Heparin Heparin Sodium (Porcine) 5,000 unit 09/12/17 19:46 Heparin - IVPUSH PRN PRN Heparin Hydralazine HCl 10 mg 09/11/17 10:25 09/13/17 21:33 Apresoline Injection - IVPUSH 10 mg Q6H PRN Administration HYPERTENSION HEPARIN SOD,PORK IN 0.45% NACL 25,000 units in 500 mls @ 20 mls/hr 09/12/17 20 :00 09/17/17 08:34 Heparin-1/2ns 25,000 Units/500 IVPB 800 units/hr TITR CORDELIA 16 mls/hr Protocol Titration 1,000 UNITS/HR Propofol 1,000,000 mcg in 100 mls @ 2.51 mls/hr 09/13/17 11:45 09/17/17 06:00 Diprivan - IVPB 0 mcg/kg/min TITR COR[facility]IA 0 mls/hr Protocol Titration 5 MCG/KG/MIN Piperacillin Sod/Tazobactam 100 mls @ 200 mls/hr 09/15/17 12:45 09/17/17 02: 40 Sod 3.375 gm/ Dextrose IVPB 200 mls/hr Q8H-IV [facility]IA Administration Sodium Chloride 1,000 mls @ 50 mls/hr 09/16/17 19:28 09/16/17 20:00 1/2 Normal Saline IV 50 mls/hr ASDIR COR[facility]IA Administration Insulin Aspart 1 vial 09/15/17 22:00 09/17/17 06:08 Novolog Vial Sliding Scale - SQ 6 units Q4HPO CORDELIA Administration Protocol Insulin Detemir 10 units 09/15/17 21:07 09/17/17 06:01 Levemir Vial SQ 10 units AM [facility]IA Administration Metoprolol Tartrate 5 mg 09/11/17 10:25 09/16/17 18:52 Lopressor Injection - IVPUSH 5 mg Q4H PRN Administration HYPERTENSION Mupirocin 1 applic 09/15/17 12:15 09/16/17 21:19 Bactroban Ointment (For Decolonization) - NS 09/20/17 12:14 1 applic BID COR[facility]IA Administration Ondansetron HCl 4 mg 09/11/17 02:02 Zofran Injection IVPUSH Q6H PRN NAUSEA Pantoprazole Sodium 40 mg 09/11/17 10:00 09/16/17 09:27 Protonix Iv IVPUSH 40 mg DAILY [facility]IA Administration ASSESSMENT/PLAN: 62 yo F with PMHx of HTN, paroxysmal atrial fibrillation on apixaban, DM, HLD, CKD, GERD and colon CA s/p colectomy 2011 with mets to lung admitted to ICU for AMS and intubated ID: Acute sepsis could be 2/2 to PNA with L lung infiltrate Blood, urine, sputum culture- yeast in sputum, urine and blood -no growth UA CXR Zosyn 3.375g ivpb Q8H (day 3) Neuro/opth:. Intubated and off sedation with spontaneous movement of all limbs R>L side, obeys commands, but lethargic R/O critical illness polyneuropathy AMS 2/2 to cerebral edema from multiple acute infarcts with background Afib L eye hyphema- cipro ointment OS Q2H Do not sedate Give iv versed 2mg PRN (for agitation/anxiety) Physical therapy- Respiratory: Acute hypoxic resp failure- Improved cough reflex Intubated and off sedation -HN-WM-DG-450, rr-20, fi02-8/5, Tolerating CPAP mode Renal: SUSAN R/O CKD hypernatremia- resolved Hyperphosphatemia Hypermagnesemia 1/2 NS @ 50ml/hr CMP,Mg, Phosphorus Metabolic/Endocrine/GI/Lines: DM- with hyperglycemia bgm q4hrs novolog scale levemir 10 units am SS adjusted tube feeding Decadron 4mg ivpush Q6H ETT, LUE peripheral line, NGT, bateman Cardio: Htn HLD Afib with RVR- aborted with iv lopressor Continue heparin drip for now to transition probably to eliquis when stable- per cardiology iv metoprolol prn -5mg cardizem 90mg Q6H NGT ECHO- pending Hemonc: Colorectal cancer with lung mets Prophylaxis: on heparin gtt protonix 40mg ivpush bid Heel pads Dispo: Poor prognosis For likely extubation tomorrow Visit type - Emergency Visit Emergency Visit: Yes ED Registration Date: 09/10/17 Care time: The patient presented to the Emergency Department on the above date and was hospitalized for further evaluation of their emergent condition. - New Patient This patient is new to me today: No - Critical Care Critical Care patient: Yes Total Critical Care Time (in minutes): 42 Critical Care Statement: The care of this patient involved high complexity decision making to prevent further life threatening deterioration of the patient 's condition and/or to evaluate & treat vital organ system(s) failure or risk of failure. - Discharge Referral Referred to [facility] Med P.C.: No
[2017-09-17] MEDS: MUPIROCIN 2% TOPICAL OINTMENT FOR DECOLONIZATION NS SCH ×2 (09:40→22:03)
[2017-09-17] MEDS: PANTOPRAZOLE SODIUM 40 MG VIAL IVPUSH SCH (09:40)
[2017-09-17] MEDS: MINERAL OIL/PETROLATUM,WHITE 3.5 GM TUBE OU SCH ×2 (09:41→22:04)
[2017-09-17] MEDS: CHLORHEXIDINE GLUCONATE 0.12% 15ML CUP MM SCH ×2 (09:42→22:04)
--- NOTE | 2017-09-17 11:14 | PN ---
Progress Note (short form) - Note Progress Note: off sedation opens her eyes to voice Vital Signs Period Temp Pulse Resp BP Sys/Mcdaniel Pulse Ox Last 24 Hr 98.7 F-99.5 F 63-133 15-22 126-164/44-77 96-100 remains intubated cor- rrr lungs decreased bs at bases abd soft,nt ext no edema CBC, BMP 09/17/17 06:25 09/17/17 06:25 Microbiology 09/15/17 12:00 Sputum - Endotrachea Suction/Ventilator Gram Stain - Final 09/15/17 12:00 Sputum - Endotrachea Suction/Ventilator Sputum Culture - Preliminary Yeast Like Organism 09/15/17 12:52 Blood - Peripheral Venous Blood Culture - Preliminary NO GROWTH OBTAINED AFTER 24 HOURS, INCUBATION TO CONTINUE FOR 4 DAYS. 09/15/17 12:45 Blood - Peripheral Venous Blood Culture - Preliminary NO GROWTH OBTAINED AFTER 24 HOURS, INCUBATION TO CONTINUE FOR 4 DAYS. 09/15/17 12:00 Urine - Urine Mcdonald Urine Culture - Final NO GROWTH OBTAINED 09/09/17 22:58 Blood - Peripheral Venous Blood Culture - Final NO GROWTH AFTER 5 DAYS INCUBATION 09/09/17 22:30 Blood - Peripheral Venous Blood Culture - Final NO GROWTH AFTER 5 DAYS INCUBATION 09/10/17 00:13 Urine - Urine Clean Catch Urine Culture - Final Contaminated: Please Repeat a/p fevers- improved- continue zosyn day #3, f/u cultures, consider d/c antibiotics in am if cultures remain negative- will d/w ICU team respiratory failure CVA Afib metastatic colon cancer Renal insufficiency diabetes leukocytosis- on steroids continue antibiotics f/u cultures ?pneumonia overall prognosis poor
--- NOTE | 2017-09-17 11:29 | PN ---
Progress Note, Physician Chief Complaint: STILL INTUBATED AT 40% FIO2 AND PEEP OF 5 AROUSABLE WITH VERBAL STIMULI - Current Medication List Current Medications: Active Medications Acetaminophen (Ofirmev Injection -) 1,000 mg IVPB Q6H PRN PRN Reason: FEVER OR PAIN Last Admin: 09/15/17 12:30 Dose: 1,000 mg Albuterol Sulfate (Ventolin 0.083% Nebulizer Soln -) 1 amp NEB Q4H PRN PRN Reason: SHORT OF BREATH/WHEEZING Albuterol/Ipratropium (Duoneb -) 1 amp NEB RQID [facility] Last Admin: 09/17/17 08:41 Dose: 1 amp Artificial Tears (Artificial Tears Ointment -) 1 applic OU BID [facility] Last Admin: 09/17/17 09:41 Dose: 1 applic Atorvastatin Calcium (Lipitor -) 20 mg PO HS [facility] Last Admin: 09/16/17 21:17 Dose: 20 mg Chlorhexidine Gluconate (Hibiclens For Decolonization -) 1 applic TP HS [facility] Last Admin: 09/16/17 21:19 Dose: 1 applic Chlorhexidine Gluconate (Peridex -) 15 ml MM BID [facility] Last Admin: 09/17/17 09:42 Dose: 15 ml Ciprofloxacin (Ciloxan 0.3% Eye Drops --) 2 drop OS Q2H [facility] Last Admin: 09/17/17 11:12 Dose: 2 drop Dexamethasone Sodium Phosphate (Decadron Injection -) 4 mg IVPUSH Q6H-IV [facility] Last Admin: 09/17/17 08:38 Dose: 4 mg Diltiazem HCl (Cardizem -) 90 mg NGT Q6HPO [facility] Last Admin: 09/17/17 11:07 Dose: 90 mg Heparin Sodium (Porcine) (Heparin -) 1,000 unit IVPUSH PRN PRN PRN Reason: Heparin Heparin Sodium (Porcine) (Heparin -) 5,000 unit IVPUSH PRN PRN PRN Reason: Heparin Hydralazine HCl (Apresoline Injection -) 10 mg IVPUSH Q6H PRN PRN Reason: HYPERTENSION Last Admin: 09/13/17 21:33 Dose: 10 mg HEPARIN SOD,PORK IN 0.45% NACL (Heparin-1/2ns 25,000 Units/500) 25,000 units in 500 mls @ 20 mls/hr IVPB TITR CORDELIA; 1,000 UNITS/HR PRN Reason: Protocol Last Titration: 09/17/17 08:34 Dose: 800 units/hr, 16 mls/hr Propofol (Diprivan -) 1,000,000 mcg in 100 mls @ 2.51 mls/hr IVPB TITR CORDELIA; 5 MCG/KG/MIN PRN Reason: Protocol Last Titration: 09/17/17 06:00 Dose: 0 mcg/kg/min, 0 mls/hr Piperacillin Sod/Tazobactam (Sod 3.375 gm/ Dextrose) 100 mls @ 200 mls/hr IVPB Q8H-IV [facility] Last Admin: 09/17/17 09:39 Dose: 200 mls/hr Sodium Chloride (1/2 Normal Saline) 1,000 mls @ 50 mls/hr IV ASDIR [facility] Last Admin: 09/16/17 20:00 Dose: 50 mls/hr Insulin Aspart (Novolog Vial Sliding Scale -) 1 vial SQ Q4HPO CORDELIA PRN Reason: Protocol Last Admin: 09/17/17 11:16 Dose: 6 units Insulin Detemir (Levemir Vial) 10 units SQ AM [facility] Last Admin: 09/17/17 06:01 Dose: 10 units Metoprolol Tartrate (Lopressor Injection -) 5 mg IVPUSH Q4H PRN PRN Reason: HYPERTENSION Last Admin: 09/16/17 18:52 Dose: 5 mg Mupirocin (Bactroban Ointment (For Decolonization) -) 1 applic NS BID [facility] Stop: 09/20/17 12:14 Last Admin: 09/17/17 09:40 Dose: 1 applic Ondansetron HCl (Zofran Injection) 4 mg IVPUSH Q6H PRN PRN Reason: NAUSEA Pantoprazole Sodium (Protonix Iv) 40 mg IVPUSH DAILY [facility] Last Admin: 09/17/17 09:40 Dose: 40 mg - Objective Vital Signs: Vital Signs Temperature 99.2 F 09/17/17 08:00 Pulse Rate 67 09/17/17 10:00 Respiratory Rate 20 09/17/17 10:00 Blood Pressure 158/67 09/17/17 10:00 O2 Sat by Pulse Oximetry (%) 96 09/17/17 09:59 Constitutional: Yes: Moderate Distress Eyes: Yes: Other HENT: Yes: WNL Neck: Yes: WNL Cardiovascular: Yes: WNL Respiratory: Yes: Mechanically Ventilated Gastrointestinal: Yes: WNL Genitourinary: Yes: Mcdonald Present Musculoskeletal: Yes: Muscle Weakness Edema: Yes Edema: LUE: 1+, RUE: 1+, LLE: 1+, RLE: 1+ Peripheral Pulses WNL: Yes Integumentary: Yes: Pressure Ulcer, Rash Wound/Incision: Yes: Dressing Dry and Intact Neurological: Yes: Pre-Existing Deficit Psychiatric: Yes: Other Labs: CBC, BMP 09/17/17 06:25 09/17/17 06:25 INR, PTT INR 0.96 (0.82-1.09) 09/17/17 06:25 Problem List - Problems (1) Brain metastasis Code(s): C79.31 - SECONDARY MALIGNANT NEOPLASM OF BRAIN (2) Headache Code(s): R51 - HEADACHE Qualifiers: Headache chronicity pattern: unspecified pattern Intractability: intractable (3) Intractable vomiting with nausea Code(s): R11.2 - NAUSEA WITH VOMITING, UNSPECIFIED Qualifiers: Vomiting type: unspecified Qualified Code(s): R11.2 - Nausea with vomiting , unspecified (4) SUSAN (acute kidney injury) Code(s): N17.9 - ACUTE KIDNEY FAILURE, UNSPECIFIED (5) Cancer, colon Code(s): C18.9 - MALIGNANT NEOPLASM OF COLON, UNSPECIFIED Qualifiers: Colon location: unspecified part of colon Qualified Code(s): C18.9 - Malignant neoplasm of colon, unspecified (6) Lung mass Code(s): R91.8 - OTHER NONSPECIFIC ABNORMAL FINDING OF LUNG FIELD (7) CVA (cerebral vascular accident) Code(s): I63.9 - CEREBRAL INFARCTION, UNSPECIFIED Assessment/Plan 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
[2017-09-17 12:02] LABS: ANISOCYTOSIS 1+; MACROCYTOSIS 0; OVALOCYTE 1+; PLATELET ESTIMATE NORMAL
[2017-09-17] MEDS ORDERED: MIDAZOLAM HCL 2 MG/2 ML SINGLE DOSE VIAL IVPUSH ONE (12:10)
--- NOTE | 2017-09-17 13:54 | PN ---
Progress Note, Physician History of Present Illness: Pt seen and examined at bedside. She remains in the ICU. Pt remains intubated. - Current Medication List Current Medications: Active Medications Acetaminophen (Ofirmev Injection -) 1,000 mg IVPB Q6H PRN PRN Reason: FEVER OR PAIN Last Admin: 09/15/17 12:30 Dose: 1,000 mg Albuterol Sulfate (Ventolin 0.083% Nebulizer Soln -) 1 amp NEB Q4H PRN PRN Reason: SHORT OF BREATH/WHEEZING Albuterol/Ipratropium (Duoneb -) 1 amp NEB RQID [facility] Last Admin: 09/17/17 12:18 Dose: 1 amp Artificial Tears (Artificial Tears Ointment -) 1 applic OU BID [facility] Last Admin: 09/17/17 09:41 Dose: 1 applic Atorvastatin Calcium (Lipitor -) 20 mg PO HS [facility] Last Admin: 09/16/17 21:17 Dose: 20 mg Chlorhexidine Gluconate (Hibiclens For Decolonization -) 1 applic TP HS [facility] Last Admin: 09/16/17 21:19 Dose: 1 applic Chlorhexidine Gluconate (Peridex -) 15 ml MM BID [facility] Last Admin: 09/17/17 09:42 Dose: 15 ml Ciprofloxacin (Ciloxan 0.3% Eye Drops --) 2 drop OS Q2H [facility] Last Admin: 09/17/17 11:12 Dose: 2 drop Dexamethasone Sodium Phosphate (Decadron Injection -) 4 mg IVPUSH Q6H-IV [facility] Last Admin: 09/17/17 08:38 Dose: 4 mg Diltiazem HCl (Cardizem -) 90 mg NGT Q6HPO [facility] Last Admin: 09/17/17 11:07 Dose: 90 mg Heparin Sodium (Porcine) (Heparin -) 1,000 unit IVPUSH PRN PRN PRN Reason: Heparin Heparin Sodium (Porcine) (Heparin -) 5,000 unit IVPUSH PRN PRN PRN Reason: Heparin Hydralazine HCl (Apresoline Injection -) 10 mg IVPUSH Q6H PRN PRN Reason: HYPERTENSION Last Admin: 09/13/17 21:33 Dose: 10 mg HEPARIN SOD,PORK IN 0.45% NACL (Heparin-1/2ns 25,000 Units/500) 25,000 units in 500 mls @ 20 mls/hr IVPB TITR [facility]; 1,000 UNITS/HR PRN Reason: Protocol Last Titration: 09/17/17 08:34 Dose: 800 units/hr, 16 mls/hr Piperacillin Sod/Tazobactam (Sod 3.375 gm/ Dextrose) 100 mls @ 200 mls/hr IVPB Q8H-IV [facility] Last Admin: 09/17/17 09:39 Dose: 200 mls/hr Sodium Chloride (1/2 Normal Saline) 1,000 mls @ 50 mls/hr IV ASDIR [facility] Last Admin: 09/16/17 20:00 Dose: 50 mls/hr Insulin Aspart (Novolog Vial Sliding Scale -) 1 vial SQ Q4HPO [facility] PRN Reason: Protocol Insulin Detemir (Levemir Vial) 10 units SQ AM [facility] Last Admin: 09/17/17 06:01 Dose: 10 units Metoprolol Tartrate (Lopressor Injection -) 5 mg IVPUSH Q4H PRN PRN Reason: HYPERTENSION Last Admin: 09/16/17 18:52 Dose: 5 mg Midazolam HCl (Versed -) 2 mg IVPUSH ONCE ONE Stop: 09/17/17 12:11 Mupirocin (Bactroban Ointment (For Decolonization) -) 1 applic NS BID [facility] Stop: 09/20/17 12:14 Last Admin: 09/17/17 09:40 Dose: 1 applic Ondansetron HCl (Zofran Injection) 4 mg IVPUSH Q6H PRN PRN Reason: NAUSEA Pantoprazole Sodium (Protonix Iv) 40 mg IVPUSH DAILY [facility] Last Admin: 09/17/17 09:40 Dose: 40 mg - Objective Vital Signs: Vital Signs Temperature 99.2 F 09/17/17 08:00 Pulse Rate 70 09/17/17 12:00 Respiratory Rate 17 09/17/17 12:17 Blood Pressure 162/70 09/17/17 12:00 O2 Sat by Pulse Oximetry (%) 96 09/17/17 09:59 Constitutional: Yes: Calm Neck: Yes: Supple Cardiovascular: Yes: S1, S2 Respiratory: Yes: Mechanically Ventilated Gastrointestinal: Yes: Soft Genitourinary: Yes: Mcdonald Present Musculoskeletal: Yes: Muscle Weakness Edema: No Wound/Incision: Yes: Open to air Neurological: Yes: Lethargy, Other Labs: CBC, BMP 09/17/17 06:25 09/17/17 06:25 INR, PTT INR 0.96 (0.82-1.09) 09/17/17 06:25 - ....Imaging Chest X-ray: Report Reviewed Problem List - Problems (1) Brain metastasis Code(s): C79.31 - SECONDARY MALIGNANT NEOPLASM OF BRAIN (2) Headache Code(s): R51 - HEADACHE Qualifiers: Headache chronicity pattern: unspecified pattern Intractability: intractable (3) Metastatic colorectal cancer Code(s): C78.5 - SECONDARY MALIGNANT NEOPLASM OF LARGE INTESTINE AND RECTUM (4) SUSAN (acute kidney injury) Code(s): N17.9 - ACUTE KIDNEY FAILURE, UNSPECIFIED (5) Atrial fibrillation Code(s): I48.91 - UNSPECIFIED ATRIAL FIBRILLATION (6) Cancer, colon Code(s): C18.9 - MALIGNANT NEOPLASM OF COLON, UNSPECIFIED Qualifiers: Colon location: unspecified part of colon Qualified Code(s): C18.9 - Malignant neoplasm of colon, unspecified (7) Lung mass Code(s): R91.8 - OTHER NONSPECIFIC ABNORMAL FINDING OF LUNG FIELD Assessment/Plan Current Medications Generic Name Dose Route Start Last Admin Trade Name Freq PRN Reason Stop Dose Admin Acetaminophen 1,000 mg 09/15/17 11:50 09/15/17 12:30 Ofirmev Injection - IVPB 1,000 mg Q6H PRN Administration FEVER OR PAIN Albuterol Sulfate 1 amp 09/16/17 13:37 Ventolin 0.083% Nebulizer Soln - NEB Q4H PRN SHORT OF BREATH/WHEEZING Albuterol/Ipratropium 1 amp 09/16/17 13:53 09/17/17 12:18 Duoneb - NEB 1 amp RQID [facility] Administration Artificial Tears 1 applic 09/15/17 22:00 09/17/17 09:41 Artificial Tears Ointment - OU 1 applic BID [facility] Administration Atorvastatin Calcium 20 mg 09/11/17 22:00 09/16/17 21:17 Lipitor - PO 20 mg HS [facility] Administration Chlorhexidine Gluconate 1 applic 09/15/17 22:00 09/16/17 21:19 Hibiclens For Decolonization - TP 1 applic HS [facility] Administration Chlorhexidine Gluconate 15 ml 09/15/17 22:00 09/17/17 09:42 Peridex - MM 15 ml BID [facility] Administration Ciprofloxacin 2 drop 09/16/17 14:45 09/17/17 11:12 Ciloxan 0.3% Eye Drops -- OS 2 drop Q2H [facility] Administration Dexamethasone Sodium Phosphate 4 mg 09/13/17 21:00 09/17/17 08:38 Decadron Injection - IVPUSH 4 mg Q6H-IV [facility] Administration Diltiazem HCl 90 mg 09/16/17 18:00 09/17/17 11:07 Cardizem - NGT 90 mg Q6HPO [facility] Administration Heparin Sodium (Porcine) 1,000 unit 09/12/17 19:46 Heparin - IVPUSH PRN PRN Heparin Heparin Sodium (Porcine) 5,000 unit 09/12/17 19:46 Heparin - IVPUSH PRN PRN Heparin Hydralazine HCl 10 mg 09/11/17 10:25 09/13/17 21:33 Apresoline Injection - IVPUSH 10 mg Q6H PRN Administration HYPERTENSION HEPARIN SOD,PORK IN 0.45% NACL 25,000 units in 500 mls @ 20 mls/hr 09/12/17 20 :00 09/17/17 08:34 Heparin-1/2ns 25,000 Units/500 IVPB 800 units/hr TITR [facility] 16 mls/hr Protocol Titration 1,000 UNITS/HR Piperacillin Sod/Tazobactam 100 mls @ 200 mls/hr 09/15/17 12:45 09/17/17 09: 39 Sod 3.375 gm/ Dextrose IVPB 200 mls/hr Q8H-IV [facility] Administration Sodium Chloride 1,000 mls @ 50 mls/hr 09/16/17 19:28 09/16/17 20:00 1/2 Normal Saline IV 50 mls/hr ASDIR [facility] Administration Insulin Aspart 1 vial 09/17/17 12:08 Novolog Vial Sliding Scale - SQ Q4HPO [facility] Protocol Insulin Detemir 10 units 09/15/17 21:07 09/17/17 06:01 Levemir Vial SQ 10 units AM [facility] Administration Metoprolol Tartrate 5 mg 09/11/17 10:25 09/16/17 18:52 Lopressor Injection - IVPUSH 5 mg Q4H PRN Administration HYPERTENSION Midazolam HCl 2 mg 09/17/17 12:10 Versed - IVPUSH 09/17/17 12:11 ONCE ONE Mupirocin 1 applic 09/15/17 12:15 09/17/17 09:40 Bactroban Ointment (For Decolonization) - NS 09/20/17 12:14 1 applic BID [facility] Administration Ondansetron HCl 4 mg 09/11/17 02:02 Zofran Injection IVPUSH Q6H PRN NAUSEA Pantoprazole Sodium 40 mg 09/11/17 10:00 09/17/17 09:40 Protonix Iv IVPUSH 40 mg DAILY [facility] Administration Impression 1. CKD 2. SUSAN 3. DM 4. htn 5. chol 6. chemo port malfunction 7. a-fib 8. lung mass 9. proteinuria 10. adenocarcinoma 11. CVA 12. acute resp failure Plan - cont fluids - pt tolerating feeds - monitor urine output - repeat labs in am - cxr reviewed - family awaiting second opinion from neurosurgery - monitor bp - overall prognosis poor - reviewed chart and notes - cont ICU care - discussed with nurse - will follow Dr Llanos
--- NOTE | 2017-09-17 14:22 | PN ---
Teaching Attending Note Name of Resident: Lisa Mott ATTENDING PHYSICIAN STATEMENT I saw and evaluated the patient. I reviewed the resident's note and discussed the case with the resident. I agree with the resident's findings and plan as documented. SUBJECTIVE: Pt seen and examined in the ICU. Remains intubated, arousable off sedation. Tolerating CPAP/PS trials but still quite somnolent. Cough during suctioning improving. OBJECTIVE: Last Vital Signs Temp Pulse Resp BP Pulse Ox 99.2 F 70 17 162/70 96 09/17/17 08:00 09/17/17 12:00 09/17/17 12:17 09/17/17 12:00 09/17/17 09:59 Intake & Output 09/14/17 09/15/17 09/16/17 09/17/17 23:59 23:59 23:59 23:59 Intake Total 3938.2 3276.8 2898.1 1076.2 Output Total 1150 1250 1900 500 Balance 2788.2 2026.8 998.1 576.2 Weight 85.6 kg 87.317 kg 88.042 kg 88.632 kg Gen: intubated, somnolent but arousable with deep stimulation HEENT: L scleral hemorrhage Heart: RRR Lung: decreased breath sounds at the bases Abd: soft, nontender Ext: + edema Neuro: left arm/leg flaccid CBC, BMP 09/17/17 06:25 09/17/17 06:25 Active Medications Acetaminophen (Ofirmev Injection -) 1,000 mg IVPB Q6H PRN PRN Reason: FEVER OR PAIN Last Admin: 09/15/17 12:30 Dose: 1,000 mg Albuterol Sulfate (Ventolin 0.083% Nebulizer Soln -) 1 amp NEB Q4H PRN PRN Reason: SHORT OF BREATH/WHEEZING Albuterol/Ipratropium (Duoneb -) 1 amp NEB RQID [facility] Last Admin: 09/17/17 12:18 Dose: 1 amp Artificial Tears (Artificial Tears Ointment -) 1 applic OU BID [facility] Last Admin: 09/17/17 09:41 Dose: 1 applic Atorvastatin Calcium (Lipitor -) 20 mg PO HS [facility] Last Admin: 09/16/17 21:17 Dose: 20 mg Chlorhexidine Gluconate (Hibiclens For Decolonization -) 1 applic TP HS [facility] Last Admin: 09/16/17 21:19 Dose: 1 applic Chlorhexidine Gluconate (Peridex -) 15 ml MM BID [facility] Last Admin: 09/17/17 09:42 Dose: 15 ml Ciprofloxacin (Ciloxan 0.3% Eye Drops --) 2 drop OS Q2H [facility] Last Admin: 09/17/17 11:12 Dose: 2 drop Dexamethasone Sodium Phosphate (Decadron Injection -) 4 mg IVPUSH Q6H-IV [facility] Last Admin: 09/17/17 08:38 Dose: 4 mg Diltiazem HCl (Cardizem -) 90 mg NGT Q6HPO [facility] Last Admin: 09/17/17 11:07 Dose: 90 mg Heparin Sodium (Porcine) (Heparin -) 1,000 unit IVPUSH PRN PRN PRN Reason: Heparin Heparin Sodium (Porcine) (Heparin -) 5,000 unit IVPUSH PRN PRN PRN Reason: Heparin Hydralazine HCl (Apresoline Injection -) 10 mg IVPUSH Q6H PRN PRN Reason: HYPERTENSION Last Admin: 09/13/17 21:33 Dose: 10 mg HEPARIN SOD,PORK IN 0.45% NACL (Heparin-1/2ns 25,000 Units/500) 25,000 units in 500 mls @ 20 mls/hr IVPB TITR [facility]; 1,000 UNITS/HR PRN Reason: Protocol Last Titration: 09/17/17 08:34 Dose: 800 units/hr, 16 mls/hr Piperacillin Sod/Tazobactam (Sod 3.375 gm/ Dextrose) 100 mls @ 200 mls/hr IVPB Q8H-IV [facility] Last Admin: 09/17/17 09:39 Dose: 200 mls/hr Sodium Chloride (1/2 Normal Saline) 1,000 mls @ 50 mls/hr IV ASDIR [facility] Last Admin: 09/16/17 20:00 Dose: 50 mls/hr Insulin Aspart (Novolog Vial Sliding Scale -) 1 vial SQ Q4HPO [facility] PRN Reason: Protocol Insulin Detemir (Levemir Vial) 10 units SQ AM [facility] Last Admin: 09/17/17 06:01 Dose: 10 units Metoprolol Tartrate (Lopressor Injection -) 5 mg IVPUSH Q4H PRN PRN Reason: HYPERTENSION Last Admin: 09/16/17 18:52 Dose: 5 mg Midazolam HCl (Versed -) 2 mg IVPUSH ONCE ONE Stop: 09/17/17 12:11 Mupirocin (Bactroban Ointment (For Decolonization) -) 1 applic NS BID [facility] Stop: 09/20/17 12:14 Last Admin: 09/17/17 09:40 Dose: 1 applic Ondansetron HCl (Zofran Injection) 4 mg IVPUSH Q6H PRN PRN Reason: NAUSEA Pantoprazole Sodium (Protonix Iv) 40 mg IVPUSH DAILY [facility] Last Admin: 09/17/17 09:40 Dose: 40 mg ASSESSMENT AND PLAN: Multiple Acute Embolic CVA Acute Hypoxic Respiratory Failure Pneumonia Atrial Fibrillation Metastatic Colon Ca to Lung Acute on Chronic Renal Failure HTN DM Hypercholesterolemia - continue antibiotics - f/u cultures - rate controlled - continue anticoagulation - IVF - monitor urine output, creatinine - minimize sedation to assess mental status - spontaneous breathing trials as tolerated, consider trial of extubation in AM - enteral feeds - DVT/GI prophylaxis - continue ICU monitoring critical care time spent in reviewing chart, evaluating patient and formulating plan 35 min
--- NOTE | 2017-09-17 15:03 | PN ---
Progress Note, Physician Chief Complaint: Intubated and sedated History of Present Illness: 62 year old woman with a PMHx of HTN, paroxysmal atrial fibrillation on apixaban , DM, HLD, CKD, GERD and colon CA s/p colectomy 2011 with mets to lung admitted with nausea and vomiting. +headache. Concern for lesion on head CT. MRI brain with acute infarcts no lesions. - Current Medication List Current Medications: Active Medications Acetaminophen (Ofirmev Injection -) 1,000 mg IVPB Q6H PRN PRN Reason: FEVER OR PAIN Last Admin: 09/15/17 12:30 Dose: 1,000 mg Albuterol Sulfate (Ventolin 0.083% Nebulizer Soln -) 1 amp NEB Q4H PRN PRN Reason: SHORT OF BREATH/WHEEZING Albuterol/Ipratropium (Duoneb -) 1 amp NEB RQID [facility] Last Admin: 09/17/17 12:18 Dose: 1 amp Artificial Tears (Artificial Tears Ointment -) 1 applic OU BID [facility] Last Admin: 09/17/17 09:41 Dose: 1 applic Atorvastatin Calcium (Lipitor -) 20 mg PO HS [facility] Last Admin: 09/16/17 21:17 Dose: 20 mg Chlorhexidine Gluconate (Hibiclens For Decolonization -) 1 applic TP HS [facility] Last Admin: 09/16/17 21:19 Dose: 1 applic Chlorhexidine Gluconate (Peridex -) 15 ml MM BID [facility] Last Admin: 09/17/17 09:42 Dose: 15 ml Ciprofloxacin (Ciloxan 0.3% Eye Drops --) 2 drop OS Q2H [facility] Last Admin: 09/17/17 14:57 Dose: 2 drop Dexamethasone Sodium Phosphate (Decadron Injection -) 4 mg IVPUSH Q6H-IV [facility] Last Admin: 09/17/17 14:23 Dose: 4 mg Diltiazem HCl (Cardizem -) 90 mg NGT Q6HPO [facility] Last Admin: 09/17/17 11:07 Dose: 90 mg Heparin Sodium (Porcine) (Heparin -) 1,000 unit IVPUSH PRN PRN PRN Reason: Heparin Heparin Sodium (Porcine) (Heparin -) 5,000 unit IVPUSH PRN PRN PRN Reason: Heparin Hydralazine HCl (Apresoline Injection -) 10 mg IVPUSH Q6H PRN PRN Reason: HYPERTENSION Last Admin: 09/13/17 21:33 Dose: 10 mg HEPARIN SOD,PORK IN 0.45% NACL (Heparin-1/2ns 25,000 Units/500) 25,000 units in 500 mls @ 20 mls/hr IVPB TITR [facility]; 1,000 UNITS/HR PRN Reason: Protocol Last Titration: 09/17/17 08:34 Dose: 800 units/hr, 16 mls/hr Piperacillin Sod/Tazobactam (Sod 3.375 gm/ Dextrose) 100 mls @ 200 mls/hr IVPB Q8H-IV [facility] Last Admin: 09/17/17 09:39 Dose: 200 mls/hr Sodium Chloride (1/2 Normal Saline) 1,000 mls @ 50 mls/hr IV ASDIR [facility] Last Admin: 09/16/17 20:00 Dose: 50 mls/hr Insulin Aspart (Novolog Vial Sliding Scale -) 1 vial SQ Q4HPO [facility] PRN Reason: Protocol Last Admin: 09/17/17 15:00 Dose: 12 units Insulin Detemir (Levemir Vial) 10 units SQ AM [facility] Last Admin: 09/17/17 06:01 Dose: 10 units Metoprolol Tartrate (Lopressor Injection -) 5 mg IVPUSH Q4H PRN PRN Reason: HYPERTENSION Last Admin: 09/16/17 18:52 Dose: 5 mg Midazolam HCl (Versed -) 2 mg IVPUSH ONCE ONE Stop: 09/17/17 12:11 Last Admin: 09/17/17 14:26 Dose: Not Given Mupirocin (Bactroban Ointment (For Decolonization) -) 1 applic NS BID [facility] Stop: 09/20/17 12:14 Last Admin: 09/17/17 09:40 Dose: 1 applic Ondansetron HCl (Zofran Injection) 4 mg IVPUSH Q6H PRN PRN Reason: NAUSEA Pantoprazole Sodium (Protonix Iv) 40 mg IVPUSH DAILY [facility] Last Admin: 09/17/17 09:40 Dose: 40 mg - Objective Vital Signs: Vital Signs Temperature 99.2 F 09/17/17 08:00 Pulse Rate 70 09/17/17 12:00 Respiratory Rate 17 09/17/17 12:17 Blood Pressure 162/70 09/17/17 12:00 O2 Sat by Pulse Oximetry (%) 96 09/17/17 09:59 Constitutional: Yes: No Distress, Calm HENT: Yes: Atraumatic, Normocephalic Neck: Yes: Trachea Midline Cardiovascular: Yes: Pulse Irregular Respiratory: Yes: Mechanically Ventilated Gastrointestinal: Yes: Normal Bowel Sounds, Soft Edema: No Peripheral Pulses WNL: Yes Labs: CBC, BMP 09/17/17 06:25 09/17/17 06:25 INR, PTT INR 0.96 (0.82-1.09) 09/17/17 06:25 Problem List - Problems (1) Atrial fibrillation Assessment/Plan: 1) Paroxysmal atrial fibrillation with intermittent rapid afib and sinus rhythm on tele while on Dilt drip and Metoprolol IV. Continue IV Diltiazem and metoprolol for now, transition to PO/NGT when tolerating feeds. -On heparin drip as per neurology, consider transition to eliquis when stable. Echo ordered. 2) HTN: systolic BP is mildly elevated. Continue IV Diltiazem and Metoprolol for now. I3) Oncology -management as per primary team On decadron Code(s): I48.91 - UNSPECIFIED ATRIAL FIBRILLATION
[2017-09-17] MEDS ORDERED: PT OWN MED DRAWER 7, Y5N ONE (17:05)
[2017-09-17] MEDS ORDERED: INSULIN (NOVOLOG) ASPART 100 UNITS/ML 10ML VIAL SQ ONE (19:03)
[2017-09-17] MEDS ORDERED: MIDAZOLAM HCL 2 MG/2 ML SINGLE DOSE VIAL IVPUSH PRN (20:26)
[2017-09-17] MEDS: ATORVASTATIN CA 20 MG TABLET (FP) PO SCH (22:02)
[2017-09-17] MEDS: CHLORHEXIDINE GLUCONATE 4% CLEANSER FOR DECOLONIZATION TP SCH (22:03)
[2017-09-17] MEDS: HEPARIN SOD,PORK IN 0.45% NACL 25,000 UNITS/500 ML INFUS.BAG IVPB SCH (22:05)
[2017-09-17] MEDS: SODIUM CHLORIDE 0.45% 1,000 ML IV SCH (22:05)
[2017-09-17] MEDS ORDERED: INSULIN REGULAR HUMAN 100 UNITS/ML *VIAL IVPUSH ONE (22:22)
[2017-09-17 23:13] LABS: ANION GAP 12 (8-16); BLOOD UREA NITROGEN 70 mg/dL (7-18); CALCIUM 8.1 mg/dL (8.5-10.1); CHLORIDE 112 mmol/L (98-107); CO2 18 mmol/L (21-32); CREATININE 2.1 mg/dL (0.55-1.02); POTASSIUM 4.3 mmol/L (3.5-5.1); SODIUM 142 mmol/L (136-145)
[2017-09-17 23:26] LABS: GLUCOSE,RANDOM 488 mg/dL (74-106)
[2017-09-17] MEDS ORDERED: INSULIN REGULAR 100 UNITS in SODIUM CHLORIDE 99 ML IVPB SCH (23:45)
[2017-09-18] MEDS: INSULIN SLIDING SCALE (NOVOLOG) 1 VIAL SQ SCH
[2017-09-18] MEDS: CIPROFLOXACIN 0.3% EYE DROPS 5 ML BOTTLE OS SCH ×12 (01:00→23:29)
[2017-09-18] MEDS: PIPERACILLIN/TAZOB 3.375 GM 3.375 GM in DEXTROSE 5%-WATER - 100 ML IVPB SCH ×3 (02:00→18:27)
[2017-09-18] MEDS: DEXAMETHASONE SOD PHOSPHATE 4 MG/1 ML VIAL IVPUSH SCH ×4 (03:33→21:52)
[2017-09-18] MEDS: METOPROLOL TARTRATE 5 MG/5 ML VIAL IVPUSH PRN ×3 (04:45→15:00)
[2017-09-18] MEDS ORDERED: INSULIN REGULAR 100 UNITS in SODIUM CHLORIDE 99 ML IVPB SCH ×4 (05:28→21:00)
[2017-09-18 06:23] LABS: HEMATOCRIT 28.1 % (32.4-45.2); HEMOGLOBIN 8.8 GM/dL (10.7-15.3); MCH 25.6 pg (25.7-33.7); MCHC 31.4 g/dl (32.0-36.0); MEAN CELL VOLUME 81.5 fl (80-96); MEAN PLT VOLUME 8.8 fl (7.5-11.1); PLATELET COUNT 348 K/MM3 (134-434); RBC 3.45 M/mm3 (3.60-5.2); RDW 17.2 % (11.6-15.6); WHITE BLOOD COUNT 16.8 K/mm3 (4.0-10.0)
[2017-09-18] MEDS: dilTIAZem HCL 60 MG TABLET (FP) NGT SCH ×3 (06:32→18:25)
[2017-09-18 06:47] LABS: ALBUMIN 2.1 g/dl (3.4-5.0); CALCIUM 7.9 mg/dL (8.5-10.1); CHLORIDE 116 mmol/L (98-107); POTASSIUM 4.2 mmol/L (3.5-5.1); SODIUM 144 mmol/L (136-145)
[2017-09-18] MEDS: HEPARIN SOD,PORK IN 0.45% NACL 25,000 UNITS/500 ML INFUS.BAG IVPB SCH ×2 (06:47→21:13)
[2017-09-18 06:51] LABS: ALK PHOS 91 U/L (45-117); ANION GAP 11 (8-16); BILIRUBIN,TOTAL 0.2 mg/dL (0.2-1.0); BLOOD UREA NITROGEN 72 mg/dL (7-18); CO2 17 mmol/L (21-32); CREATININE 1.9 mg/dL (0.55-1.02); GLUCOSE,RANDOM 287 mg/dL (74-106); MAGNESIUM 2.9 mg/dL (1.8-2.4); PHOSPHOROUS 2.9 mg/dL (2.5-4.9); SGOT/AST 10 U/L (15-37); SGPT/ALT 16 U/L (12-78); TOT PROT 5.2 g/dl (6.4-8.2)
--- NOTE | 2017-09-18 08:43 | PN ---
Physical Exam: SUBJECTIVE: Patient seen and examined. Off sedation, obeys commands, less agitated. Was on CpAP yesterday and did well. For extubation today. Had high glucose in 400s. Received insulin drip overnight. Last BGM-90. OBJECTIVE: Vital Signs Period Temp Pulse Resp BP Sys/Mcdaniel Pulse Ox Last 24 Hr 98.8 F-99.2 F 65-170 9-25 154-196/62-80 96-96 GENERAL: The patient is intubated, off sedation, more alert today. HEAD: Healing bruise over L eye. EYES: Bilaterally reacting pupils. Ecchymosis of L eye ENT: Intubated, and off sedation-450, rr-20, fi02 40%, -8/5, NGT in place NECK: supple. LUNGS: Breath sounds L lung reduced HEART: Regular rate and rhythm, S1, S2 ABDOMEN: Soft, normoactive bowel sounds. EXTREMITIES: 2+ pulses, warm, well-perfused, SCDs in place. NEUROLOGICAL: Sedated, but arousable, follows commands, able to lining baster hands and moves all limbs PSYCH: Unable to assess SKIN: Warm, dry Lines: NGT, ETT, RUE peripheral line, bateman Laboratory Results - last 24 hr 09/17/17 09/17/17 09/17/17 06:25 10:52 17:45 WBC RBC Hgb Hct MCV MCH MCHC RDW Plt Count MPV Neutrophils % Neutrophils % (Manual) 86.0 H Band Neutrophils % 2.0 Lymphocytes % Lymphocytes % (Manual) 6.0 L D Monocytes % (Manual) 2 L Eosinophils % (Manual) 0.0 Basophils % (Manual) 0.0 Myelocytes % (Man) 0 Metamyelocytes 2 Hypochromia 0 Platelet Estimate Normal Polychromasia 0 Poikilocytosis 1+ Anisocytosis 1+ Microcytosis 1+ Macrocytosis 0 Ovalocytes 1+ PTT (Actin FS) Sodium Potassium Chloride Carbon Dioxide Anion Gap BUN Creatinine Creat Clearance w eGFR POC Glucometer [phone] Random Glucose 483 H* D Calcium Phosphorus Magnesium Total Bilirubin AST ALT Alkaline Phosphatase Total Protein Albumin 09/17/17 09/18/17 09/18/17 22:20 01:12 02:05 WBC RBC Hgb Hct MCV MCH MCHC RDW Plt Count MPV Neutrophils % Neutrophils % (Manual) Band Neutrophils % Lymphocytes % Lymphocytes % (Manual) Monocytes % (Manual) Eosinophils % (Manual) Basophils % (Manual) Myelocytes % (Man) Metamyelocytes Hypochromia Platelet Estimate Polychromasia Poikilocytosis Anisocytosis Microcytosis Macrocytosis Ovalocytes PTT (Actin FS) Sodium 142 Potassium 4.3 Chloride 112 H Carbon Dioxide 18 L Anion Gap 12 BUN 70 H D Creatinine 2.1 H Creat Clearance w eGFR POC Glucometer > 400 > 400 Random Glucose 488 H* Calcium 8.1 L Phosphorus Magnesium Total Bilirubin AST ALT Alkaline Phosphatase Total Protein Albumin 09/18/17 09/18/17 09/18/17 03:29 04:38 05:30 WBC RBC Hgb Hct MCV MCH MCHC RDW Plt Count MPV Neutrophils % Neutrophils % (Manual) Band Neutrophils % Lymphocytes % Lymphocytes % (Manual) Monocytes % (Manual) Eosinophils % (Manual) Basophils % (Manual) Myelocytes % (Man) Metamyelocytes Hypochromia Platelet Estimate Polychromasia Poikilocytosis Anisocytosis Microcytosis Macrocytosis Ovalocytes PTT (Actin FS) 51.9 H Sodium Potassium Chloride Carbon Dioxide Anion Gap BUN Creatinine Creat Clearance w eGFR POC Glucometer > [phone] Random Glucose Calcium Phosphorus Magnesium Total Bilirubin AST ALT Alkaline Phosphatase Total Protein Albumin 09/18/17 09/18/17 09/18/17 05:30 05:30 05:44 WBC 16.8 H D RBC 3.45 L Hgb 8.8 L Hct 28.1 L MCV 81.5 MCH 25.6 L MCHC 31.4 L RDW 17.2 H Plt Count 348 MPV 8.8 Neutrophils % No Result Required. Neutrophils % (Manual) Band Neutrophils % Lymphocytes % No Result Required. Lymphocytes % (Manual) Monocytes % (Manual) Eosinophils % (Manual) Basophils % (Manual) Myelocytes % (Man) Metamyelocytes Hypochromia Platelet Estimate Polychromasia Poikilocytosis Anisocytosis Microcytosis Macrocytosis Ovalocytes PTT (Actin FS) Sodium 144 Potassium 4.2 Chloride 116 H Carbon Dioxide 17 L Anion Gap 11 BUN 72 H Creatinine 1.9 H Creat Clearance w eGFR 26.96 POC Glucometer [phone] Random Glucose 287 H D Calcium 7.9 L Phosphorus 2.9 D Magnesium 2.9 H Total Bilirubin 0.2 D AST 10 L D ALT 16 Alkaline Phosphatase 91 Total Protein 5.2 L Albumin 2.1 L 09/18/17 06:56 WBC RBC Hgb Hct MCV MCH MCHC RDW Plt Count MPV Neutrophils % Neutrophils % (Manual) Band Neutrophils % Lymphocytes % Lymphocytes % (Manual) Monocytes % (Manual) Eosinophils % (Manual) Basophils % (Manual) Myelocytes % (Man) Metamyelocytes Hypochromia Platelet Estimate Polychromasia Poikilocytosis Anisocytosis Microcytosis Macrocytosis Ovalocytes PTT (Actin FS) Sodium Potassium Chloride Carbon Dioxide Anion Gap BUN Creatinine Creat Clearance w eGFR POC Glucometer [phone] Random Glucose Calcium Phosphorus Magnesium Total Bilirubin AST ALT Alkaline Phosphatase Total Protein Albumin Active Medications Generic Name Dose Route Start Last Admin Trade Name Freq PRN Reason Stop Dose Admin Acetaminophen 1,000 mg 09/15/17 11:50 09/15/17 12:30 Ofirmev Injection - IVPB 1,000 mg Q6H PRN Administration FEVER OR PAIN Albuterol Sulfate 1 amp 09/16/17 13:37 Ventolin 0.083% Nebulizer Soln - NEB Q4H PRN SHORT OF BREATH/WHEEZING Albuterol/Ipratropium 1 amp 09/16/17 13:53 09/17/17 18:24 Duoneb - NEB 1 amp RQID CORDELIA Administration Artificial Tears 1 applic 09/15/17 22:00 09/17/17 22:04 Artificial Tears Ointment - OU 1 applic BID CORDELIA Administration Atorvastatin Calcium 20 mg 09/11/17 22:00 09/17/17 22:02 Lipitor - PO 20 mg HS CORDELIA Administration Chlorhexidine Gluconate 1 applic 09/15/17 22:00 09/17/17 22:03 Hibiclens For Decolonization - TP 1 applic HS CORDELIA Administration Chlorhexidine Gluconate 15 ml 09/15/17 22:00 09/17/17 22:04 Peridex - MM 15 ml BID CORDELIA Administration Ciprofloxacin 2 drop 09/16/17 14:45 09/18/17 06:32 Ciloxan 0.3% Eye Drops -- OS 2 drop Q2H CORDELIA Administration Dexamethasone Sodium Phosphate 4 mg 09/13/17 21:00 09/18/17 03:33 Decadron Injection - IVPUSH 4 mg Q6H-IV CORDELIA Administration Diltiazem HCl 90 mg 09/16/17 18:00 09/18/17 06:32 Cardizem - NGT 90 mg Q6HPO CORDELIA Administration Heparin Sodium (Porcine) 1,000 unit 09/12/17 19:46 Heparin - IVPUSH PRN PRN Heparin Heparin Sodium (Porcine) 5,000 unit 09/12/17 19:46 Heparin - IVPUSH PRN PRN Heparin Hydralazine HCl 10 mg 09/11/17 10:25 09/13/17 21:33 Apresoline Injection - IVPUSH 10 mg Q6H PRN Administration HYPERTENSION HEPARIN SOD,PORK IN 0.45% NACL 25,000 units in 500 mls @ 20 mls/hr 09/12/17 20 :00 09/18/17 06:47 Heparin-1/2ns 25,000 Units/500 IVPB 800 units/hr TITR CORDELIA 16 mls/hr Protocol Administration 1,000 UNITS/HR Piperacillin Sod/Tazobactam 100 mls @ 200 mls/hr 09/15/17 12:45 09/18/17 02: 00 Sod 3.375 gm/ Dextrose IVPB 200 mls/hr Q8H-IV CORDELIA Administration Sodium Chloride 1,000 mls @ 50 mls/hr 09/16/17 19:28 09/17/17 22:05 1/2 Normal Saline IV 50 mls/hr ASDIR CORDELIA Administration Insulin Human Regular 100 100 mls @ 5 mls/hr 09/18/17 06:14 09/18/17 06:33 units/ Sodium Chloride IVPB 5 units/hr TITR CORDELIA 5 mls/hr Protocol Administration 5 UNITS/HR Metoprolol Tartrate 5 mg 09/11/17 10:25 09/18/17 04:45 Lopressor Injection - IVPUSH 5 mg Q4H PRN Administration HYPERTENSION Midazolam HCl 2 mg 09/17/17 20:26 Versed - IVPUSH Q4H PRN AGITATION Mupirocin 1 applic 09/15/17 12:15 09/17/17 22:03 Bactroban Ointment (For Decolonization) - NS 09/20/17 12:14 1 applic BID COREDLIA Administration Ondansetron HCl 4 mg 09/11/17 02:02 Zofran Injection IVPUSH Q6H PRN NAUSEA Pantoprazole Sodium 40 mg 09/11/17 10:00 09/17/17 09:40 Protonix Iv IVPUSH 40 mg DAILY CORDELIA Administration ASSESSMENT/PLAN: 62 yo F with PMHx of HTN, paroxysmal atrial fibrillation on apixaban, DM, HLD, CKD, GERD and colon CA s/p colectomy 2011 with mets to lung admitted to ICU for AMS and intubated ID: Acute sepsis could be 2/2 to PNA with L lung infiltrate CXR Zosyn 3.375g ivpb Q8H Neuro/opth:. Intubated and off sedation obeys commands, and less lethargic R/O critical illness polyneuropathy AMS 2/2 to cerebral edema from multiple acute infarcts with background Afib L eye hyphema- cipro ointment OS Q2H Do not sedate Give iv versed 2mg PRN (for agitation/anxiety) Physical therapy- Respiratory: Acute hypoxic resp failure-for extubation today Improved cough reflex Intubated and off sedation -LK-HQ-EO-450, rr-20, fi02-8/5, Tolerating CPAP mode For extubation Renal: SSUAN R/O CKD hypernatremia- resolved Hyperphosphatemia Hypermagnesemia 1/2 NS @ 50ml/hr CMP,Mg, Phosphorus Tube feeds Metabolic/Endocrine/GI/Lines: DM- with hyperglycemia bgm q4hrs novolog scale levemir 12 units am resume ISS tube feeding Decadron 4mg ivpush Q6H ETT, LUE peripheral line, NGT, bateman Insulin drip stopped Cardio: Htn HLD Still tachycardic Continue heparin drip for now to transition probably to eliquis when stable- per cardiology iv metoprolol prn -5mg cardizem 90mg Q6H NGT- c/o of high residues of crushed immediate release in syringe after administering through tube, spoke with pharmacy and they suggest iv dosing instead. Hemonc: Colorectal cancer with lung mets Prophylaxis: on heparin gtt protonix 40mg ivpush bid Heel pads Visit type - Emergency Visit Emergency Visit: Yes ED Registration Date: 09/10/17 Care time: The patient presented to the Emergency Department on the above date and was hospitalized for further evaluation of their emergent condition. - New Patient This patient is new to me today: No - Critical Care Critical Care patient: Yes Total Critical Care Time (in minutes): 40 Critical Care Statement: The care of this patient involved high complexity decision making to prevent further life threatening deterioration of the patient 's condition and/or to evaluate & treat vital organ system(s) failure or risk of failure. - Discharge Referral Referred to [facility] No
[2017-09-18] MEDS: PANTOPRAZOLE SODIUM 40 MG VIAL IVPUSH SCH (09:27)
[2017-09-18] MEDS: MUPIROCIN 2% TOPICAL OINTMENT FOR DECOLONIZATION NS SCH ×2 (09:29→23:28)
[2017-09-18] MEDS: MINERAL OIL/PETROLATUM,WHITE 3.5 GM TUBE OU SCH ×2 (09:29→23:28)
[2017-09-18] MEDS ORDERED: PT OWN MED DRAWER 7, Y5N ONE ×2 (09:31→18:26)
[2017-09-18] MEDS: CHLORHEXIDINE GLUCONATE 0.12% 15ML CUP MM SCH ×2 (09:34→23:29)
--- NOTE | 2017-09-18 10:47 | PN ---
Progress Note, Physician History of Present Illness: Extubated Breathing non-llabored on mask Afebrile WBC increased BC (-) - Current Medication List Current Medications: Active Medications Acetaminophen (Ofirmev Injection -) 1,000 mg IVPB Q6H PRN PRN Reason: FEVER OR PAIN Last Admin: 09/15/17 12:30 Dose: 1,000 mg Albuterol Sulfate (Ventolin 0.083% Nebulizer Soln -) 1 amp NEB Q4H PRN PRN Reason: SHORT OF BREATH/WHEEZING Albuterol/Ipratropium (Duoneb -) 1 amp NEB RQID [facility] Last Admin: 09/17/17 18:24 Dose: 1 amp Artificial Tears (Artificial Tears Ointment -) 1 applic OU BID [facility] Last Admin: 09/18/17 09:29 Dose: 1 applic Atorvastatin Calcium (Lipitor -) 20 mg PO HS [facility] Last Admin: 09/17/17 22:02 Dose: 20 mg Chlorhexidine Gluconate (Hibiclens For Decolonization -) 1 applic TP HS [facility] Last Admin: 09/17/17 22:03 Dose: 1 applic Chlorhexidine Gluconate (Peridex -) 15 ml MM BID [facility] Last Admin: 09/18/17 09:34 Dose: 15 ml Ciprofloxacin (Ciloxan 0.3% Eye Drops --) 2 drop OS Q2H [facility] Last Admin: 09/18/17 09:25 Dose: 2 drop Dexamethasone Sodium Phosphate (Decadron Injection -) 4 mg IVPUSH Q6H-IV CORDELIA Last Admin: 09/18/17 09:02 Dose: 4 mg Diltiazem HCl (Cardizem -) 90 mg NGT Q6HPO [facility] Last Admin: 09/18/17 06:32 Dose: 90 mg Heparin Sodium (Porcine) (Heparin -) 1,000 unit IVPUSH PRN PRN PRN Reason: Heparin Heparin Sodium (Porcine) (Heparin -) 5,000 unit IVPUSH PRN PRN PRN Reason: Heparin Hydralazine HCl (Apresoline Injection -) 10 mg IVPUSH Q6H PRN PRN Reason: HYPERTENSION Last Admin: 09/13/17 21:33 Dose: 10 mg HEPARIN SOD,PORK IN 0.45% NACL (Heparin-1/2ns 25,000 Units/500) 25,000 units in 500 mls @ 20 mls/hr IVPB TITR CORDELIA; 1,000 UNITS/HR PRN Reason: Protocol Last Admin: 09/18/17 06:47 Dose: 800 units/hr, 16 mls/hr Piperacillin Sod/Tazobactam (Sod 3.375 gm/ Dextrose) 100 mls @ 200 mls/hr IVPB Q8H-IV [facility] Last Admin: 09/18/17 09:32 Dose: 200 mls/hr Sodium Chloride (1/2 Normal Saline) 1,000 mls @ 50 mls/hr IV ASDIR [facility] Last Admin: 09/17/17 22:05 Dose: 50 mls/hr Insulin Human Regular 100 (units/ Sodium Chloride) 100 mls @ 5 mls/hr IVPB TITR [facility]; 5 UNITS/HR PRN Reason: Protocol Last Admin: 09/18/17 06:33 Dose: 5 units/hr, 5 mls/hr Metoprolol Tartrate (Lopressor Injection -) 5 mg IVPUSH Q4H PRN PRN Reason: HYPERTENSION Last Admin: 09/18/17 04:45 Dose: 5 mg Midazolam HCl (Versed -) 2 mg IVPUSH Q4H PRN PRN Reason: AGITATION Mupirocin (Bactroban Ointment (For Decolonization) -) 1 applic NS BID [facility] Stop: 09/20/17 12:14 Last Admin: 09/18/17 09:29 Dose: 1 applic Ondansetron HCl (Zofran Injection) 4 mg IVPUSH Q6H PRN PRN Reason: NAUSEA Pantoprazole Sodium (Protonix Iv) 40 mg IVPUSH DAILY [facility] Last Admin: 09/18/17 09:27 Dose: 40 mg - Objective Vital Signs: Vital Signs Temperature 98.8 F 09/18/17 06:00 Pulse Rate 109 H 09/18/17 10:10 Respiratory Rate 25 H 09/18/17 06:30 Blood Pressure 171/72 09/18/17 06:00 O2 Sat by Pulse Oximetry (%) 100 09/18/17 10:10 Constitutional: Yes: No Distress Cardiovascular: Yes: Regular Rate and Rhythm, S1, S2 Respiratory: Yes: Diminished Gastrointestinal: Yes: Normal Bowel Sounds, Soft. No: Tenderness Edema: Yes Labs: CBC, BMP 09/18/17 05:30 09/18/17 05:30 INR, PTT INR 0.96 (0.82-1.09) 09/17/17 06:25 Assessment/Plan Respiratory failure s/ps extubation ?pneumonia Metastatic ca Leukocytosis Azotemia Continue zosyn
[2017-09-18] MEDS ORDERED: RACEPINEPHRINE IH SOL 2.25% 11.25 MG/0.5 ML VIAL NEB ONE (11:30)
--- NOTE | 2017-09-18 11:32 | PN ---
Progress Note (short form) - Note Progress Note: pt seen an examined. chart reviewed. O/E: Constitutional: Yes:extubated Cardiovascular: Yes: S1, S2 Respiratory: Yes: Mechanically Ventilated Gastrointestinal: Yes: Soft Genitourinary: Yes: Mcdonald Present Edema: No Neurological: Yes: intubated Labs: Last Vital Signs Temp Pulse Resp BP Pulse Ox 98.8 F 109 H 25 H 171/72 100 09/18/17 06:00 09/18/17 10:10 09/18/17 06:30 09/18/17 06:00 09/18/17 10:10 CBC, BMP 09/18/17 05:30 09/18/17 05:30 Current Medications Generic Name Dose Route Start Last Admin Trade Name Freq PRN Reason Stop Dose Admin Acetaminophen 1,000 mg 09/15/17 11:50 09/15/17 12:30 Ofirmev Injection - IVPB 1,000 mg Q6H PRN Administration FEVER OR PAIN Albuterol Sulfate 1 amp 09/16/17 13:37 Ventolin 0.083% Nebulizer Soln - NEB Q4H PRN SHORT OF BREATH/WHEEZING Albuterol/Ipratropium 1 amp 09/16/17 13:53 09/17/17 18:24 Duoneb - NEB 1 amp RQID CORDELIA Administration Artificial Tears 1 applic 09/15/17 22:00 09/18/17 09:29 Artificial Tears Ointment - OU 1 applic BID CORDELIA Administration Atorvastatin Calcium 20 mg 09/11/17 22:00 09/17/17 22:02 Lipitor - PO 20 mg HS CORDELIA Administration Chlorhexidine Gluconate 1 applic 09/15/17 22:00 09/17/17 22:03 Hibiclens For Decolonization - TP 1 applic HS CORDELIA Administration Chlorhexidine Gluconate 15 ml 09/15/17 22:00 09/18/17 09:34 Peridex - MM 15 ml BID CORDELIA Administration Ciprofloxacin 2 drop 09/16/17 14:45 09/18/17 09:25 Ciloxan 0.3% Eye Drops -- OS 2 drop Q2H CORDELIA Administration Dexamethasone Sodium Phosphate 4 mg 09/13/17 21:00 09/18/17 09:02 Decadron Injection - IVPUSH 4 mg Q6H-IV CORDELIA Administration Diltiazem HCl 90 mg 09/16/17 18:00 09/18/17 06:32 Cardizem - NGT 90 mg Q6HPO CORDELIA Administration Heparin Sodium (Porcine) 1,000 unit 09/12/17 19:46 Heparin - IVPUSH PRN PRN Heparin Heparin Sodium (Porcine) 5,000 unit 09/12/17 19:46 Heparin - IVPUSH PRN PRN Heparin Hydralazine HCl 10 mg 09/11/17 10:25 09/13/17 21:33 Apresoline Injection - IVPUSH 10 mg Q6H PRN Administration HYPERTENSION HEPARIN SOD,PORK IN 0.45% NACL 25,000 units in 500 mls @ 20 mls/hr 09/12/17 20 :00 09/18/17 06:47 Heparin-1/2ns 25,000 Units/500 IVPB 800 units/hr TITR CORDELIA 16 mls/hr Protocol Administration 1,000 UNITS/HR Piperacillin Sod/Tazobactam 100 mls @ 200 mls/hr 09/15/17 12:45 09/18/17 09: 32 Sod 3.375 gm/ Dextrose IVPB 200 mls/hr Q8H-IV CORDELIA Administration Sodium Chloride 1,000 mls @ 50 mls/hr 09/16/17 19:28 09/17/17 22:05 1/2 Normal Saline IV 50 mls/hr ASDIR CORDELIA Administration Insulin Human Regular 100 100 mls @ 5 mls/hr 09/18/17 06:14 09/18/17 06:33 units/ Sodium Chloride IVPB 5 units/hr TITR CORDELIA 5 mls/hr Protocol Administration 5 UNITS/HR Metoprolol Tartrate 5 mg 09/11/17 10:25 09/18/17 04:45 Lopressor Injection - IVPUSH 5 mg Q4H PRN Administration HYPERTENSION Midazolam HCl 2 mg 09/17/17 20:26 Versed - IVPUSH Q4H PRN AGITATION Mupirocin 1 applic 09/15/17 12:15 09/18/17 09:29 Bactroban Ointment (For Decolonization) - NS 09/20/17 12:14 1 applic BID CORDELIA Administration Ondansetron HCl 4 mg 09/11/17 02:02 Zofran Injection IVPUSH Q6H PRN NAUSEA Pantoprazole Sodium 40 mg 09/11/17 10:00 09/18/17 09:27 Protonix Iv IVPUSH 40 mg DAILY CORDELIA Administration 62 yo woman with h/o HTN, Chol, DM, ASHD, AFib and moderate renal insufficiency is s/p colectomy 2011 for colonic CA now metastatic to the lungs Recently had portal placed for chemo Rx with attempted infusion Friday AM. Soon thereafter, patient developed headache, nausea, vomiting and unsteadiness. CT of head suggested ischemic changes in the posterior fossa (left cerebellum > right) and the parietal region. MRI confirmed extensive changes including B/L cerebellar infarcts (L>>R); a left lateral medullary (brainstem) infarct, and multiple, scattered hemispheric infarcts. new lt. occipital lobe infarct on heparin drip on decadron now extubated. +fransisca ruiz resident plan per icu/neuro. Problem List - Problems (1) Intractable vomiting with nausea Code(s): R11.2 - NAUSEA WITH VOMITING, UNSPECIFIED Qualifiers: Vomiting type: unspecified Qualified Code(s): R11.2 - Nausea with vomiting , unspecified (2) Atrial fibrillation Code(s): I48.91 - UNSPECIFIED ATRIAL FIBRILLATION (3) Cancer, colon Code(s): C18.9 - MALIGNANT NEOPLASM OF COLON, UNSPECIFIED Qualifiers: Colon location: unspecified part of colon Qualified Code(s): C18.9 - Malignant neoplasm of colon, unspecified (4) Metastatic colorectal cancer Code(s): C78.5 - SECONDARY MALIGNANT NEOPLASM OF LARGE INTESTINE AND RECTUM
[2017-09-18 13:43] LABS: PLATELET ESTIMATE NORMAL
[2017-09-18] MEDS: RACEPINEPHRINE IH SOL 2.25% 11.25 MG/0.5 ML VIAL NEB SCH ×2 (14:13→18:28)
--- NOTE | 2017-09-18 14:26 | PN ---
Teaching Attending Note Name of Resident: Lisa Mott ATTENDING PHYSICIAN STATEMENT I saw and evaluated the patient. I reviewed the resident's note and discussed the case with the resident. I agree with the resident's findings and plan as documented. SUBJECTIVE: Patient seen and examined in the ICU. Remains intubated, awake and interactive. No pressors. CXR: Improving left base infiltrate / ETT proximal. OBJECTIVE: Intake & Output 09/15/17 09/16/17 09/17/17 09/18/17 23:59 23:59 23:59 23:59 Intake Total 3276.8 2898.1 2708.2 1315 Output Total 1250 1900 1750 700 Balance 2026.8 998.1 958.2 615 Weight 192 lb 8 oz 194 lb 1.6 oz 195 lb 6.4 oz 196 lb 3.382 oz Last Vital Signs Temp Pulse Resp BP Pulse Ox 98.8 F 109 H 25 H 171/72 100 09/18/17 06:00 09/18/17 10:10 09/18/17 06:30 09/18/17 06:00 09/18/17 10:10 Active Medications Acetaminophen (Ofirmev Injection -) 1,000 mg IVPB Q6H PRN PRN Reason: FEVER OR PAIN Last Admin: 09/15/17 12:30 Dose: 1,000 mg Albuterol Sulfate (Ventolin 0.083% Nebulizer Soln -) 1 amp NEB Q4H PRN PRN Reason: SHORT OF BREATH/WHEEZING Albuterol/Ipratropium (Duoneb -) 1 amp NEB RQID [facility] Last Admin: 09/17/17 18:24 Dose: 1 amp Artificial Tears (Artificial Tears Ointment -) 1 applic OU BID [facility] Last Admin: 09/18/17 09:29 Dose: 1 applic Atorvastatin Calcium (Lipitor -) 20 mg PO [facility] Last Admin: 09/17/17 22:02 Dose: 20 mg Chlorhexidine Gluconate (Hibiclens For Decolonization -) 1 applic TP HS [facility] Last Admin: 09/17/17 22:03 Dose: 1 applic Chlorhexidine Gluconate (Peridex -) 15 ml MM BID [facility] Last Admin: 09/18/17 09:34 Dose: 15 ml Ciprofloxacin (Ciloxan 0.3% Eye Drops --) 2 drop OS Q2H [facility] Last Admin: 09/18/17 12:40 Dose: 2 drop Dexamethasone Sodium Phosphate (Decadron Injection -) 4 mg IVPUSH Q6H-IV [facility] Last Admin: 09/18/17 09:02 Dose: 4 mg Diltiazem HCl (Cardizem -) 90 mg NGT Q6HPO [facility] Last Admin: 09/18/17 12:40 Dose: 90 mg Epinephrine (S-2) 1 vial NEB Q8H-IV [facility] Last Admin: 09/18/17 14:13 Dose: 1 vial Heparin Sodium (Porcine) (Heparin -) 1,000 unit IVPUSH PRN PRN PRN Reason: Heparin Heparin Sodium (Porcine) (Heparin -) 5,000 unit IVPUSH PRN PRN PRN Reason: Heparin Hydralazine HCl (Apresoline Injection -) 10 mg IVPUSH Q6H PRN PRN Reason: HYPERTENSION Last Admin: 09/13/17 21:33 Dose: 10 mg HEPARIN SOD,PORK IN 0.45% NACL (Heparin-1/2ns 25,000 Units/500) 25,000 units in 500 mls @ 20 mls/hr IVPB TITR [facility]; 1,000 UNITS/HR PRN Reason: Protocol Last Admin: 09/18/17 06:47 Dose: 800 units/hr, 16 mls/hr Piperacillin Sod/Tazobactam (Sod 3.375 gm/ Dextrose) 100 mls @ 200 mls/hr IVPB Q8H-IV [facility] Last Admin: 09/18/17 09:32 Dose: 200 mls/hr Sodium Chloride (1/2 Normal Saline) 1,000 mls @ 50 mls/hr IV ASDIR [facility] Last Admin: 09/17/17 22:05 Dose: 50 mls/hr Insulin Aspart (Novolog Vial Sliding Scale -) 1 vial SQ ACHS [facility] PRN Reason: Protocol Metoprolol Tartrate (Lopressor Injection -) 5 mg IVPUSH Q4H PRN PRN Reason: HYPERTENSION Last Admin: 09/18/17 04:45 Dose: 5 mg Midazolam HCl (Versed -) 2 mg IVPUSH Q4H PRN PRN Reason: AGITATION Mupirocin (Bactroban Ointment (For Decolonization) -) 1 applic NS BID [facility] Stop: 09/20/17 12:14 Last Admin: 09/18/17 09:29 Dose: 1 applic Ondansetron HCl (Zofran Injection) 4 mg IVPUSH Q6H PRN PRN Reason: NAUSEA Pantoprazole Sodium (Protonix Iv) 40 mg IVPUSH DAILY [facility] Last Admin: 09/18/17 09:27 Dose: 40 mg Gen: intubated, awake and interactive HEENT: Improving Left scleral hemorrhage Heart: RRR Lung: Bilateral scattered rhonchi Abd: soft, nontender Ext: + edema Neuro: decreased power left arm/leg Laboratory Results - last 24 hr 09/17/17 09/17/17 09/17/17 10:52 14:43 16:46 WBC RBC Hgb Hct MCV MCH MCHC RDW Plt Count MPV Neutrophils % Neutrophils % (Manual) Band Neutrophils % Lymphocytes % Lymphocytes % (Manual) Monocytes % (Manual) Eosinophils % (Manual) Basophils % (Manual) Myelocytes % (Man) Metamyelocytes Platelet Estimate PTT (Actin FS) Sodium Potassium Chloride Carbon Dioxide Anion Gap BUN Creatinine Creat Clearance w eGFR POC Glucometer 132.89365 > 400 > 400 Random Glucose Calcium Phosphorus Magnesium Total Bilirubin AST ALT Alkaline Phosphatase Total Protein Albumin 09/17/17 09/17/17 09/17/17 17:45 22:13 22:20 WBC RBC Hgb Hct MCV MCH MCHC RDW Plt Count MPV Neutrophils % Neutrophils % (Manual) Band Neutrophils % Lymphocytes % Lymphocytes % (Manual) Monocytes % (Manual) Eosinophils % (Manual) Basophils % (Manual) Myelocytes % (Man) Metamyelocytes Platelet Estimate PTT (Actin FS) Sodium 142 Potassium 4.3 Chloride 112 H Carbon Dioxide 18 L Anion Gap 12 BUN 70 H D Creatinine 2.1 H Creat Clearance w eGFR POC Glucometer > 400 Random Glucose 483 H* D 488 H* Calcium 8.1 L Phosphorus Magnesium Total Bilirubin AST ALT Alkaline Phosphatase Total Protein Albumin 09/17/17 09/18/17 09/18/17 23:47 01:12 02:05 WBC RBC Hgb Hct MCV MCH MCHC RDW Plt Count MPV Neutrophils % Neutrophils % (Manual) Band Neutrophils % Lymphocytes % Lymphocytes % (Manual) Monocytes % (Manual) Eosinophils % (Manual) Basophils % (Manual) Myelocytes % (Man) Metamyelocytes Platelet Estimate PTT (Actin FS) Sodium Potassium Chloride Carbon Dioxide Anion Gap BUN Creatinine Creat Clearance w eGFR POC Glucometer > 400 > 400 > 400 Random Glucose Calcium Phosphorus Magnesium Total Bilirubin AST ALT Alkaline Phosphatase Total Protein Albumin 09/18/17 09/18/17 09/18/17 03:29 04:38 05:30 WBC RBC Hgb Hct MCV MCH MCHC RDW Plt Count MPV Neutrophils % Neutrophils % (Manual) Band Neutrophils % Lymphocytes % Lymphocytes % (Manual) Monocytes % (Manual) Eosinophils % (Manual) Basophils % (Manual) Myelocytes % (Man) Metamyelocytes Platelet Estimate PTT (Actin FS) 51.9 H Sodium Potassium Chloride Carbon Dioxide Anion Gap BUN Creatinine Creat Clearance w eGFR POC Glucometer > 400 385.18653 Random Glucose Calcium Phosphorus Magnesium Total Bilirubin AST ALT Alkaline Phosphatase Total Protein Albumin 09/18/17 09/18/17 09/18/17 05:30 05:30 05:44 WBC 16.8 H D RBC 3.45 L Hgb 8.8 L Hct 28.1 L MCV 81.5 MCH 25.6 L MCHC 31.4 L RDW 17.2 H Plt Count 348 MPV 8.8 Neutrophils % No Result Required. Neutrophils % (Manual) 88.8 H Band Neutrophils % 1.0 Lymphocytes % No Result Required. Lymphocytes % (Manual) 1.0 L D Monocytes % (Manual) 9 D Eosinophils % (Manual) 0.0 Basophils % (Manual) 0.0 Myelocytes % (Man) 0 Metamyelocytes 0 D Platelet Estimate Normal PTT (Actin FS) Sodium 144 Potassium 4.2 Chloride 116 H Carbon Dioxide 17 L Anion Gap 11 BUN 72 H Creatinine 1.9 H Creat Clearance w eGFR 26.96 POC Glucometer 290.04649 Random Glucose 287 H D Calcium 7.9 L Phosphorus 2.9 D Magnesium 2.9 H Total Bilirubin 0.2 D AST 10 L D ALT 16 Alkaline Phosphatase 91 Total Protein 5.2 L Albumin 2.1 L 09/18/17 09/18/17 06:56 07:59 WBC RBC Hgb Hct MCV MCH MCHC RDW Plt Count MPV Neutrophils % Neutrophils % (Manual) Band Neutrophils % Lymphocytes % Lymphocytes % (Manual) Monocytes % (Manual) Eosinophils % (Manual) Basophils % (Manual) Myelocytes % (Man) Metamyelocytes Platelet Estimate PTT (Actin FS) Sodium Potassium Chloride Carbon Dioxide Anion Gap BUN Creatinine Creat Clearance w eGFR POC Glucometer [phone] 94.49283 Random Glucose Calcium Phosphorus Magnesium Total Bilirubin AST ALT Alkaline Phosphatase Total Protein Albumin ASSESSMENT AND PLAN: Multiple Acute Embolic CVA Acute Hypoxic Respiratory Failure Pneumonia Atrial Fibrillation Metastatic Colon Ca to Lung Acute on Chronic Renal Failure HTN DM Hypercholesterolemia - ABX per ID - rate controlled - AC - IVF - monitor urine output, creatinine - spontaneous breathing trials with trial of extubation - DVT/GI prophylaxis - continue ICU monitoring Dr Kaplan Critical care time spent in reviewing chart, evaluating patient and formulating plan 38 min
--- NOTE | 2017-09-18 14:28 | PN ---
Progress Note, Physician Chief Complaint: no new issues. tele rate controlled afib. History of Present Illness: 62 year old woman with a PMHx of HTN, paroxysmal atrial fibrillation on apixaban , DM, HLD, CKD, GERD and colon CA s/p colectomy 2011 with mets to lung admitted with nausea and vomiting. +headache. Concern for lesion on head CT. MRI brain with acute infarcts no lesions. Echo 09/17/17 normal EF TDS - Current Medication List Current Medications: Active Medications Acetaminophen (Ofirmev Injection -) 1,000 mg IVPB Q6H PRN PRN Reason: FEVER OR PAIN Last Admin: 09/15/17 12:30 Dose: 1,000 mg Albuterol Sulfate (Ventolin 0.083% Nebulizer Soln -) 1 amp NEB Q4H PRN PRN Reason: SHORT OF BREATH/WHEEZING Albuterol/Ipratropium (Duoneb -) 1 amp NEB RQID [facility] Last Admin: 09/17/17 18:24 Dose: 1 amp Artificial Tears (Artificial Tears Ointment -) 1 applic OU BID [facility] Last Admin: 09/18/17 09:29 Dose: 1 applic Atorvastatin Calcium (Lipitor -) 20 mg PO HS [facility] Last Admin: 09/17/17 22:02 Dose: 20 mg Chlorhexidine Gluconate (Hibiclens For Decolonization -) 1 applic TP HS [facility] Last Admin: 09/17/17 22:03 Dose: 1 applic Chlorhexidine Gluconate (Peridex -) 15 ml MM BID [facility] Last Admin: 09/18/17 09:34 Dose: 15 ml Ciprofloxacin (Ciloxan 0.3% Eye Drops --) 2 drop OS Q2H [facility] Last Admin: 09/18/17 12:40 Dose: 2 drop Dexamethasone Sodium Phosphate (Decadron Injection -) 4 mg IVPUSH Q6H-IV [facility] Last Admin: 09/18/17 09:02 Dose: 4 mg Diltiazem HCl (Cardizem -) 90 mg NGT Q6HPO [facility] Last Admin: 09/18/17 12:40 Dose: 90 mg Epinephrine (S-2) 1 vial NEB Q8H-IV [facility] Last Admin: 09/18/17 14:13 Dose: 1 vial Heparin Sodium (Porcine) (Heparin -) 1,000 unit IVPUSH PRN PRN PRN Reason: Heparin Heparin Sodium (Porcine) (Heparin -) 5,000 unit IVPUSH PRN PRN PRN Reason: Heparin Hydralazine HCl (Apresoline Injection -) 10 mg IVPUSH Q6H PRN PRN Reason: HYPERTENSION Last Admin: 09/13/17 21:33 Dose: 10 mg HEPARIN SOD,PORK IN 0.45% NACL (Heparin-1/2ns 25,000 Units/500) 25,000 units in 500 mls @ 20 mls/hr IVPB TITR [facility]; 1,000 UNITS/HR PRN Reason: Protocol Last Admin: 09/18/17 06:47 Dose: 800 units/hr, 16 mls/hr Piperacillin Sod/Tazobactam (Sod 3.375 gm/ Dextrose) 100 mls @ 200 mls/hr IVPB Q8H-IV [facility] Last Admin: 09/18/17 09:32 Dose: 200 mls/hr Sodium Chloride (1/2 Normal Saline) 1,000 mls @ 50 mls/hr IV ASDIR [facility] Last Admin: 09/17/17 22:05 Dose: 50 mls/hr Insulin Aspart (Novolog Vial Sliding Scale -) 1 vial SQ ACHS [facility] PRN Reason: Protocol Metoprolol Tartrate (Lopressor Injection -) 5 mg IVPUSH Q4H PRN PRN Reason: HYPERTENSION Last Admin: 09/18/17 04:45 Dose: 5 mg Midazolam HCl (Versed -) 2 mg IVPUSH Q4H PRN PRN Reason: AGITATION Mupirocin (Bactroban Ointment (For Decolonization) -) 1 applic NS BID [facility] Stop: 09/20/17 12:14 Last Admin: 09/18/17 09:29 Dose: 1 applic Ondansetron HCl (Zofran Injection) 4 mg IVPUSH Q6H PRN PRN Reason: NAUSEA Pantoprazole Sodium (Protonix Iv) 40 mg IVPUSH DAILY [facility] Last Admin: 09/18/17 09:27 Dose: 40 mg - Objective Vital Signs: Vital Signs Temperature 98.8 F 09/18/17 06:00 Pulse Rate 109 H 09/18/17 10:10 Respiratory Rate 25 H 09/18/17 06:30 Blood Pressure 171/72 09/18/17 06:00 O2 Sat by Pulse Oximetry (%) 100 09/18/17 10:10 Constitutional: Yes: No Distress Eyes: Yes: Conjunctiva Clear HENT: Yes: Normocephalic Neck: Yes: Trachea Midline Cardiovascular: Yes: Pulse Irregular Respiratory: Yes: On BiPap, Poor Air Entry Gastrointestinal: Yes: Normal Bowel Sounds Edema: No Peripheral Pulses WNL: Yes Labs: CBC, BMP 09/18/17 05:30 09/18/17 05:30 INR, PTT INR 0.96 (0.82-1.09) 09/17/17 06:25 Problem List - Problems (1) Atrial fibrillation Assessment/Plan: 1) Paroxysmal atrial fibrillation with intermittent rapid afib and sinus rhythm on tele while on Dilt drip and Metoprolol IV. Continue PO dilt. tolerating feeds. -On heparin drip as per neurology, consider transition to eliquis when stable. Echo nlef. 2) HTN: systolic BP is mildly elevated. Continue meds. Please call us with questions. Code(s): I48.91 - UNSPECIFIED ATRIAL FIBRILLATION
--- NOTE | 2017-09-18 15:17 | PN ---
Progress Note, Physician History of Present Illness: Pt seen and examined at bedside. She is now extubated. - Current Medication List Current Medications: Active Medications Acetaminophen (Ofirmev Injection -) 1,000 mg IVPB Q6H PRN PRN Reason: FEVER OR PAIN Last Admin: 09/15/17 12:30 Dose: 1,000 mg Albuterol Sulfate (Ventolin 0.083% Nebulizer Soln -) 1 amp NEB Q4H PRN PRN Reason: SHORT OF BREATH/WHEEZING Albuterol/Ipratropium (Duoneb -) 1 amp NEB RQID [facility] Last Admin: 09/17/17 18:24 Dose: 1 amp Artificial Tears (Artificial Tears Ointment -) 1 applic OU BID [facility] Last Admin: 09/18/17 09:29 Dose: 1 applic Atorvastatin Calcium (Lipitor -) 20 mg PO HS [facility] Last Admin: 09/17/17 22:02 Dose: 20 mg Chlorhexidine Gluconate (Hibiclens For Decolonization -) 1 applic TP HS [facility] Last Admin: 09/17/17 22:03 Dose: 1 applic Chlorhexidine Gluconate (Peridex -) 15 ml MM BID [facility] Last Admin: 09/18/17 09:34 Dose: 15 ml Ciprofloxacin (Ciloxan 0.3% Eye Drops --) 2 drop OS Q2H [facility] Last Admin: 09/18/17 15:02 Dose: 2 drop Dexamethasone Sodium Phosphate (Decadron Injection -) 4 mg IVPUSH Q6H-IV [facility] Last Admin: 09/18/17 09:02 Dose: 4 mg Diltiazem HCl (Cardizem -) 90 mg NGT Q6HPO [facility] Last Admin: 09/18/17 12:40 Dose: 90 mg Epinephrine (S-2) 1 vial NEB Q8H-IV [facility] Last Admin: 09/18/17 14:13 Dose: 1 vial Heparin Sodium (Porcine) (Heparin -) 1,000 unit IVPUSH PRN PRN PRN Reason: Heparin Heparin Sodium (Porcine) (Heparin -) 5,000 unit IVPUSH PRN PRN PRN Reason: Heparin Hydralazine HCl (Apresoline Injection -) 10 mg IVPUSH Q6H PRN PRN Reason: HYPERTENSION Last Admin: 09/13/17 21:33 Dose: 10 mg HEPARIN SOD,PORK IN 0.45% NACL (Heparin-1/2ns 25,000 Units/500) 25,000 units in 500 mls @ 20 mls/hr IVPB TITR [facility]; 1,000 UNITS/HR PRN Reason: Protocol Last Admin: 09/18/17 06:47 Dose: 800 units/hr, 16 mls/hr Piperacillin Sod/Tazobactam (Sod 3.375 gm/ Dextrose) 100 mls @ 200 mls/hr IVPB Q8H-IV [facility] Last Admin: 09/18/17 09:32 Dose: 200 mls/hr Sodium Chloride (1/2 Normal Saline) 1,000 mls @ 50 mls/hr IV ASDIR [facility] Last Admin: 09/17/17 22:05 Dose: 50 mls/hr Insulin Aspart (Novolog Vial Sliding Scale -) 1 vial SQ ACHS [facility] PRN Reason: Protocol Metoprolol Tartrate (Lopressor Injection -) 5 mg IVPUSH Q4H PRN PRN Reason: HYPERTENSION Last Admin: 09/18/17 15:00 Dose: 5 mg Midazolam HCl (Versed -) 2 mg IVPUSH Q4H PRN PRN Reason: AGITATION Mupirocin (Bactroban Ointment (For Decolonization) -) 1 applic NS BID [facility] Stop: 09/20/17 12:14 Last Admin: 09/18/17 09:29 Dose: 1 applic Ondansetron HCl (Zofran Injection) 4 mg IVPUSH Q6H PRN PRN Reason: NAUSEA Pantoprazole Sodium (Protonix Iv) 40 mg IVPUSH DAILY [facility] Last Admin: 09/18/17 09:27 Dose: 40 mg - Objective Vital Signs: Vital Signs Temperature 98.8 F 09/18/17 06:00 Pulse Rate 177 H 09/18/17 15:00 Respiratory Rate 25 H 09/18/17 06:30 Blood Pressure 181/73 09/18/17 15:00 O2 Sat by Pulse Oximetry (%) 100 09/18/17 10:10 Constitutional: Yes: Anxious Eyes: Yes: Conjunctiva Clear HENT: Yes: Atraumatic Cardiovascular: Yes: S1, S2 Respiratory: Yes: On Venti-Mask Gastrointestinal: Yes: Soft Genitourinary: Yes: Mcdonald Present Musculoskeletal: Yes: Muscle Weakness Edema: Yes Edema: LLE: Trace, RLE: Trace Neurological: Yes: Confusion Labs: CBC, BMP 09/18/17 05:30 09/18/17 05:30 INR, PTT INR 0.96 (0.82-1.09) 09/17/17 06:25 - ....Imaging Chest X-ray: Report Reviewed Problem List - Problems (1) Brain metastasis Code(s): C79.31 - SECONDARY MALIGNANT NEOPLASM OF BRAIN (2) Headache Code(s): R51 - HEADACHE Qualifiers: Headache chronicity pattern: unspecified pattern Intractability: intractable (3) Metastatic colorectal cancer Code(s): C78.5 - SECONDARY MALIGNANT NEOPLASM OF LARGE INTESTINE AND RECTUM (4) SUSAN (acute kidney injury) Code(s): N17.9 - ACUTE KIDNEY FAILURE, UNSPECIFIED (5) Atrial fibrillation Code(s): I48.91 - UNSPECIFIED ATRIAL FIBRILLATION (6) Cancer, colon Code(s): C18.9 - MALIGNANT NEOPLASM OF COLON, UNSPECIFIED Qualifiers: Colon location: unspecified part of colon Qualified Code(s): C18.9 - Malignant neoplasm of colon, unspecified (7) Lung mass Code(s): R91.8 - OTHER NONSPECIFIC ABNORMAL FINDING OF LUNG FIELD Assessment/Plan Current Medications Generic Name Dose Route Start Last Admin Trade Name Freq PRN Reason Stop Dose Admin Acetaminophen 1,000 mg 09/15/17 11:50 09/15/17 12:30 Ofirmev Injection - IVPB 1,000 mg Q6H PRN Administration FEVER OR PAIN Albuterol Sulfate 1 amp 09/16/17 13:37 Ventolin 0.083% Nebulizer Soln - NEB Q4H PRN SHORT OF BREATH/WHEEZING Albuterol/Ipratropium 1 amp 09/16/17 13:53 09/17/17 18:24 Duoneb - NEB 1 amp RQID [facility] Administration Artificial Tears 1 applic 09/15/17 22:00 09/18/17 09:29 Artificial Tears Ointment - OU 1 applic BID [facility] Administration Atorvastatin Calcium 20 mg 09/11/17 22:00 09/17/17 22:02 Lipitor - PO 20 mg HS [facility] Administration Chlorhexidine Gluconate 1 applic 09/15/17 22:00 09/17/17 22:03 Hibiclens For Decolonization - TP 1 applic HS [facility] Administration Chlorhexidine Gluconate 15 ml 09/15/17 22:00 09/18/17 09:34 Peridex - MM 15 ml BID [facility] Administration Ciprofloxacin 2 drop 09/16/17 14:45 09/18/17 15:02 Ciloxan 0.3% Eye Drops -- OS 2 drop Q2H [facility] Administration Dexamethasone Sodium Phosphate 4 mg 09/13/17 21:00 09/18/17 09:02 Decadron Injection - IVPUSH 4 mg Q6H-IV [facility] Administration Diltiazem HCl 90 mg 09/16/17 18:00 09/18/17 12:40 Cardizem - NGT 90 mg Q6HPO [facility] Administration Epinephrine 1 vial 09/18/17 11:45 09/18/17 14:13 S-2 NEB 1 vial Q8H-IV [facility] Administration Heparin Sodium (Porcine) 1,000 unit 09/12/17 19:46 Heparin - IVPUSH PRN PRN Heparin Heparin Sodium (Porcine) 5,000 unit 09/12/17 19:46 Heparin - IVPUSH PRN PRN Heparin Hydralazine HCl 10 mg 09/11/17 10:25 09/13/17 21:33 Apresoline Injection - IVPUSH 10 mg Q6H PRN Administration HYPERTENSION HEPARIN SOD,PORK IN 0.45% NACL 25,000 units in 500 mls @ 20 mls/hr 09/12/17 20 :00 09/18/17 06:47 Heparin-1/2ns 25,000 Units/500 IVPB 800 units/hr TITR [facility] 16 mls/hr Protocol Administration 1,000 UNITS/HR Piperacillin Sod/Tazobactam 100 mls @ 200 mls/hr 09/15/17 12:45 09/18/17 09: 32 Sod 3.375 gm/ Dextrose IVPB 200 mls/hr Q8H-IV [facility] Administration Sodium Chloride 1,000 mls @ 50 mls/hr 09/16/17 19:28 09/17/17 22:05 1/2 Normal Saline IV 50 mls/hr ASDIR [facility] Administration Insulin Aspart 1 vial 09/18/17 16:30 Novolog Vial Sliding Scale - SQ ACHS [facility] Protocol Metoprolol Tartrate 5 mg 09/11/17 10:25 09/18/17 15:00 Lopressor Injection - IVPUSH 5 mg Q4H PRN Administration HYPERTENSION Midazolam HCl 2 mg 09/17/17 20:26 Versed - IVPUSH Q4H PRN AGITATION Mupirocin 1 applic 09/15/17 12:15 09/18/17 09:29 Bactroban Ointment (For Decolonization) - NS 09/20/17 12:14 1 applic BID [facility] Administration Ondansetron HCl 4 mg 09/11/17 02:02 Zofran Injection IVPUSH Q6H PRN NAUSEA Pantoprazole Sodium 40 mg 09/11/17 10:00 09/18/17 09:27 Protonix Iv IVPUSH 40 mg DAILY [facility] Administration Impression 1. CKD 2. SUSAN 3. DM 4. htn 5. chol 6. chemo port malfunction 7. a-fib 8. lung mass 9. proteinuria 10. adenocarcinoma 11. CVA 12. acute resp failure Plan - cont to monitor renal function - monitor neuro status - neuro follow up - pt now extubated - monitor bp - overall prognosis poor - cont ICU care - will follow Dr Llanos
[2017-09-18] MEDS ORDERED: INSULIN SLIDING SCALE (NOVOLOG) 1 VIAL SQ SCH (16:30)
[2017-09-18] MEDS ORDERED: LABETALOL HCL 5 MG/1 ML (100MG/20 ML VIAL) IVPUSH ONE (16:45)
[2017-09-18 17:07] LABS: ARTERIAL BLD GAS O2 SATURATION 97.3 % (90-98.9); ARTERIAL BLOOD GAS BASE EXCESS -9.7 meq/l (-2-2); ARTERIAL BLOOD GAS PCO2 32.4 mmHg (35-45); ARTERIAL BLOOD GAS PO2 98.8 mmHg (80-100)
[2017-09-18 17:09] LABS: ALLENS TEST POSITIVE
[2017-09-18] MEDS ORDERED: INSULIN REGULAR HUMAN 100 UNITS/ML *VIAL IVPUSH ONE (17:15)
[2017-09-18 17:59] LABS: ANION GAP 9 (8-16); BLOOD UREA NITROGEN 77 mg/dL (7-18); CALCIUM 7.8 mg/dL (8.5-10.1); CHLORIDE 114 mmol/L (98-107); CO2 19 mmol/L (21-32); POTASSIUM 5.3 mmol/L (3.5-5.1); SODIUM 142 mmol/L (136-145)
[2017-09-18 18:06] LABS: GLUCOSE,RANDOM 606 mg/dL (74-106)
[2017-09-18] MEDS: METOPROLOL TARTRATE 5 MG/5 ML VIAL IVPUSH ONE (18:16)
--- NOTE | 2017-09-18 18:26 | PN ---
Progress Note (short form) - Note Progress Note: Thoracic Surgery: Extubated. Can speak and move extremities. Still has loud breathing sounds (? stridor related to stroke). Hopeful for more neurologic recovery. Will watch respiratory status carefully in ICU. PT/OT if resp status stable.
--- NOTE | 2017-09-18 18:46 | PN ---
Progress Note, Physician Chief Complaint: AWAKE EXTUBATED RESPONDING TO VERBAL STIMULI NGT IN PLACE - Current Medication List Current Medications: Active Medications Acetaminophen (Ofirmev Injection -) 1,000 mg IVPB Q6H PRN PRN Reason: FEVER OR PAIN Last Admin: 09/15/17 12:30 Dose: 1,000 mg Albuterol Sulfate (Ventolin 0.083% Nebulizer Soln -) 1 amp NEB Q4H PRN PRN Reason: SHORT OF BREATH/WHEEZING Albuterol/Ipratropium (Duoneb -) 1 amp NEB RQID [facility] Last Admin: 09/17/17 18:24 Dose: 1 amp Artificial Tears (Artificial Tears Ointment -) 1 applic OU BID [facility] Last Admin: 09/18/17 09:29 Dose: 1 applic Atorvastatin Calcium (Lipitor -) 20 mg PO HS [facility] Last Admin: 09/17/17 22:02 Dose: 20 mg Chlorhexidine Gluconate (Hibiclens For Decolonization -) 1 applic TP HS [facility] Last Admin: 09/17/17 22:03 Dose: 1 applic Chlorhexidine Gluconate (Peridex -) 15 ml MM BID [facility] Last Admin: 09/18/17 09:34 Dose: 15 ml Ciprofloxacin (Ciloxan 0.3% Eye Drops --) 2 drop OS Q2H [facility] Last Admin: 09/18/17 17:06 Dose: 2 drop Dexamethasone Sodium Phosphate (Decadron Injection -) 4 mg IVPUSH Q6H-IV [facility] Last Admin: 09/18/17 15:09 Dose: 4 mg Diltiazem HCl (Cardizem -) 90 mg NGT Q6HPO [facility] Last Admin: 09/18/17 18:25 Dose: 90 mg Epinephrine (S-2) 1 vial NEB Q8H-IV [facility] Last Admin: 09/18/17 18:28 Dose: 1 vial Heparin Sodium (Porcine) (Heparin -) 1,000 unit IVPUSH PRN PRN PRN Reason: Heparin Heparin Sodium (Porcine) (Heparin -) 5,000 unit IVPUSH PRN PRN PRN Reason: Heparin Hydralazine HCl (Apresoline Injection -) 10 mg IVPUSH Q6H PRN PRN Reason: HYPERTENSION Last Admin: 09/13/17 21:33 Dose: 10 mg HEPARIN SOD,PORK IN 0.45% NACL (Heparin-1/2ns 25,000 Units/500) 25,000 units in 500 mls @ 20 mls/hr IVPB TITR [facility]; 1,000 UNITS/HR PRN Reason: Protocol Last Admin: 09/18/17 06:47 Dose: 800 units/hr, 16 mls/hr Piperacillin Sod/Tazobactam (Sod 3.375 gm/ Dextrose) 100 mls @ 200 mls/hr IVPB Q8H-IV [facility] Last Admin: 09/18/17 18:27 Dose: 200 mls/hr Sodium Chloride (1/2 Normal Saline) 1,000 mls @ 50 mls/hr IV ASDIR [facility] Last Admin: 09/17/17 22:05 Dose: 50 mls/hr Insulin Human Regular 100 (units/ Sodium Chloride) 100 mls @ 8.9 mls/hr IVPB TITR [facility]; 0.1 UNITS/KG/HR PRN Reason: Protocol Last Admin: 09/18/17 18:32 Dose: 0.1 units/kg/hr, 8.9 mls/hr Insulin Aspart (Novolog Vial Sliding Scale -) 1 vial SQ ACHS [facility] PRN Reason: Protocol Last Admin: 09/18/17 17:11 Dose: 15 units Metoprolol Tartrate (Lopressor Injection -) 5 mg IVPUSH Q4H PRN PRN Reason: HYPERTENSION Last Admin: 09/18/17 15:00 Dose: 5 mg Midazolam HCl (Versed -) 2 mg IVPUSH Q4H PRN PRN Reason: AGITATION Last Admin: 09/18/17 16:36 Dose: 2 mg Mupirocin (Bactroban Ointment (For Decolonization) -) 1 applic NS BID [facility] Stop: 09/20/17 12:14 Last Admin: 09/18/17 09:29 Dose: 1 applic Ondansetron HCl (Zofran Injection) 4 mg IVPUSH Q6H PRN PRN Reason: NAUSEA Pantoprazole Sodium (Protonix Iv) 40 mg IVPUSH DAILY [facility] Last Admin: 09/18/17 09:27 Dose: 40 mg - Objective Vital Signs: Vital Signs Temperature 98.8 F 09/18/17 06:00 Pulse Rate 161 H 09/18/17 18:16 Respiratory Rate 25 H 09/18/17 06:30 Blood Pressure 165/117 09/18/17 18:16 O2 Sat by Pulse Oximetry (%) 100 09/18/17 10:10 Constitutional: Yes: Mild Distress Eyes: Yes: WNL HENT: Yes: Other Neck: Yes: WNL Cardiovascular: Yes: WNL Respiratory: Yes: On Nasal O2 Gastrointestinal: Yes: WNL Genitourinary: Yes: Mcdonald Present Musculoskeletal: Yes: Muscle Weakness Extremities: Yes: WNL Edema: Yes Peripheral Pulses WNL: Yes Integumentary: Yes: Rash Wound/Incision: Yes: Clean/Dry Neurological: Yes: Confusion, Other ...Motor Strength: LLE, RLE Psychiatric: Yes: Other Labs: CBC, BMP 09/18/17 05:30 09/18/17 17:00 INR, PTT INR 0.96 (0.82-1.09) 09/17/17 06:25 Problem List - Problems (1) Brain metastasis Code(s): C79.31 - SECONDARY MALIGNANT NEOPLASM OF BRAIN (2) Headache Code(s): R51 - HEADACHE Qualifiers: Headache chronicity pattern: unspecified pattern Intractability: intractable (3) Intractable vomiting with nausea Code(s): R11.2 - NAUSEA WITH VOMITING, UNSPECIFIED Qualifiers: Vomiting type: unspecified Qualified Code(s): R11.2 - Nausea with vomiting , unspecified (4) SUSAN (acute kidney injury) Code(s): N17.9 - ACUTE KIDNEY FAILURE, UNSPECIFIED (5) Cancer, colon Code(s): C18.9 - MALIGNANT NEOPLASM OF COLON, UNSPECIFIED Qualifiers: Colon location: unspecified part of colon Qualified Code(s): C18.9 - Malignant neoplasm of colon, unspecified (6) Lung mass Code(s): R91.8 - OTHER NONSPECIFIC ABNORMAL FINDING OF LUNG FIELD (7) CVA (cerebral vascular accident) Code(s): I63.9 - CEREBRAL INFARCTION, UNSPECIFIED Assessment/Plan SWALLOW EVAL IVF PAIN CONTROL NEUROLOGY F/U CTS F/U CHECKING LABS PT EVAL OOB TO CHAIR DVT PROPHYLAXIS
[2017-09-18] MEDS: ALBUTEROL SO4 2.5/IPRATROPIUM 0.5 INH SOL 3 ML VIAL.NEB. NEB SCH (20:15)
[2017-09-18] MEDS: SODIUM CHLORIDE 0.45% 1,000 ML IV SCH (21:13)
[2017-09-18] MEDS: ATORVASTATIN CA 20 MG TABLET (FP) PO SCH (23:28)
[2017-09-18] MEDS: CHLORHEXIDINE GLUCONATE 4% CLEANSER FOR DECOLONIZATION TP SCH (23:28)
[2017-09-18] MEDS: dilTIAZem HCL 30 MG TABLET (FP) NGT SCH (23:29)
[2017-09-19] MEDS: RACEPINEPHRINE IH SOL 2.25% 11.25 MG/0.5 ML VIAL NEB SCH (01:57)
[2017-09-19] MEDS: CIPROFLOXACIN 0.3% EYE DROPS 5 ML BOTTLE OS SCH ×10 (02:00→21:56)
[2017-09-19] MEDS: PIPERACILLIN/TAZOB 3.375 GM 3.375 GM in DEXTROSE 5%-WATER - 100 ML IVPB SCH ×2 (02:00→10:41)
[2017-09-19] MEDS: DEXAMETHASONE SOD PHOSPHATE 4 MG/1 ML VIAL IVPUSH SCH ×3 (03:03→18:29)
[2017-09-19 06:17] LABS: HEMATOCRIT 27.7 % (32.4-45.2); HEMOGLOBIN 8.7 GM/dL (10.7-15.3); MCH 25.7 pg (25.7-33.7); MCHC 31.6 g/dl (32.0-36.0); MEAN CELL VOLUME 81.3 fl (80-96); PLATELET COUNT 349 K/MM3 (134-434); RBC 3.41 M/mm3 (3.60-5.2); RDW 17.2 % (11.6-15.6); WHITE BLOOD COUNT 19.1 K/mm3 (4.0-10.0)
[2017-09-19] MEDS: dilTIAZem HCL 30 MG TABLET (FP) NGT SCH ×4 (06:20→23:25)
[2017-09-19 06:42] LABS: ALK PHOS 83 U/L (45-117); ANION GAP 14 (8-16); BILIRUBIN,TOTAL 0.2 mg/dL (0.2-1.0); BLOOD UREA NITROGEN 68 mg/dL (7-18); CALCIUM 8.3 mg/dL (8.5-10.1); CHLORIDE 115 mmol/L (98-107); CO2 18 mmol/L (21-32); CREATININE 1.8 mg/dL (0.55-1.02); GLUCOSE,RANDOM 241 mg/dL (74-106); MAGNESIUM 2.8 mg/dL (1.8-2.4); POTASSIUM 5.1 mmol/L (3.5-5.1); SGOT/AST 14 U/L (15-37); SGPT/ALT 17 U/L (12-78); SODIUM 147 mmol/L (136-145)
[2017-09-19 07:02] LABS: ARTERIAL BLD GAS O2 SATURATION 98.6 % (90-98.9); ARTERIAL BLOOD GAS BASE EXCESS -7.7 meq/l (-2-2); ARTERIAL BLOOD GAS PCO2 31.8 mmHg (35-45); ARTERIAL BLOOD GAS pH 7.34 (7.35-7.45)
[2017-09-19 07:03] LABS: ALLENS TEST POSITIVE
--- NOTE | 2017-09-19 07:20 | PN ---
Physical Exam: SUBJECTIVE: Patient seen and examined. Restarted on insulin drip overnight with sugars over 600. Stridor less. Extubated yesterday and tolerating well. OBJECTIVE: Vital Signs Period Temp Pulse Resp BP Sys/Mcdaniel Pulse Ox Last 24 Hr 97.6 F-99.4 F 88-177 13-22 149-187/65-117 100-100 Vital Signs Temp 98.6 F 09/19/17 14:00 Pulse 102 H 09/19/17 14:00 Resp 15 09/19/17 14:00 BP 168/85 09/19/17 14:00 Pulse Ox 100 09/19/17 08:33 Intake & Output 09/18/17 09/19/17 09/19/17 23:59 11:59 23:59 Intake Total 988 1210 Output Total 2400 750 900 Balance -1412 460 -900 Weight 90.1 kg Intake: IV 528 710 1/2 Normal Saline 1,000 400 500 ml @ 50 mls/hr IV ASDIR [facility] Rx#:[id number] HEPARIN-1/2NS 25,000 128 160 UNITS/500 25,000 units In 500 ml @ 1,000 UNITS/HR 20 mls/hr IVPB TITR [facility] Rx#:[id number] NOVOLIN R VIAL *For 50 IVPUSH or IV DRIP Only* 100 UNITS In Normal Saline - 99 ml @ 12 UNITS /HR 12 mls/hr IVPB TITR [facility] Rx#:[id number] IVPB 100 100 Tube Feeding 240 300 Tube Irrigant 120 100 Output: Urine 2400 750 900 Bateman 2400 750 900 Other: Voiding Method Indwelling Catheter Indwelling Catheter Bowel Movement Yes Yes # Bowel Movements 1 1 Weight [facility] GENERAL: The patient is extubated on ventimask HEAD: Healing bruise over L eye. EYES: Bilaterally reacting pupils. Improving ecchymosis of L eye ENT: On venturimask-40% NECK: supple. LUNGS: Breath sounds L lung reduced HEART: Regular rate and rhythm, S1, S2 ABDOMEN: Soft, normoactive bowel sounds. EXTREMITIES: 2+ pulses, warm, well-perfused, SCDs in place. NEUROLOGICAL: Awake, follows commands, talking, strength RUE, RLE- 4/5, LUE-3/5 , Wiggles toes on L PSYCH: Unable to assess SKIN: Warm, dry Lines: NGT, RUE peripheral line, bateman, rectal tube Laboratory Results - last 24 hr 09/17/17 09/17/17 09/17/17 14:43 16:46 22:13 WBC RBC Hgb Hct MCV MCH MCHC RDW Plt Count MPV Neutrophils % Neutrophils % (Manual) Band Neutrophils % Lymphocytes % Lymphocytes % (Manual) Monocytes % (Manual) Eosinophils % (Manual) Basophils % (Manual) Myelocytes % (Man) Metamyelocytes Platelet Estimate PTT (Actin FS) Anticoagulation Therapy Puncture Site ABG pH ABG pCO2 at Pt Temp ABG pO2 at Pt Temp ABG HCO3 ABG O2 Sat (Measured) ABG O2 Content ABG Base Excess Addy Test O2 Delivery Device Oxygen Flow Rate Vent Mode Vent Rate Mechanical Rate Pressure Support Vent Sodium Potassium Chloride Carbon Dioxide Anion Gap BUN Creatinine POC Glucometer > 400 > 400 > 400 Random Glucose Calcium 09/17/17 09/18/17 09/18/17 23:47 04:38 05:30 WBC RBC Hgb Hct MCV MCH MCHC RDW Plt Count MPV Neutrophils % Neutrophils % (Manual) 88.8 H Band Neutrophils % 1.0 Lymphocytes % Lymphocytes % (Manual) 1.0 L D Monocytes % (Manual) 9 D Eosinophils % (Manual) 0.0 Basophils % (Manual) 0.0 Myelocytes % (Man) 0 Metamyelocytes 0 D Platelet Estimate Normal PTT (Actin FS) Anticoagulation Therapy Puncture Site ABG pH ABG pCO2 at Pt Temp ABG pO2 at Pt Temp ABG HCO3 ABG O2 Sat (Measured) ABG O2 Content ABG Base Excess Addy Test O2 Delivery Device Oxygen Flow Rate Vent Mode Vent Rate Mechanical Rate Pressure Support Vent Sodium Potassium Chloride Carbon Dioxide Anion Gap BUN Creatinine POC Glucometer > 400 385.63486 Random Glucose Calcium 09/18/17 09/18/17 09/18/17 05:44 06:56 07:59 WBC RBC Hgb Hct MCV MCH MCHC RDW Plt Count MPV Neutrophils % Neutrophils % (Manual) Band Neutrophils % Lymphocytes % Lymphocytes % (Manual) Monocytes % (Manual) Eosinophils % (Manual) Basophils % (Manual) Myelocytes % (Man) Metamyelocytes Platelet Estimate PTT (Actin FS) Anticoagulation Therapy Puncture Site ABG pH ABG pCO2 at Pt Temp ABG pO2 at Pt Temp ABG HCO3 ABG O2 Sat (Measured) ABG O2 Content ABG Base Excess Addy Test O2 Delivery Device Oxygen Flow Rate Vent Mode Vent Rate Mechanical Rate Pressure Support Vent Sodium Potassium Chloride Carbon Dioxide Anion Gap BUN Creatinine POC Glucometer 290.03244 224.63549 94.45903 Random Glucose Calcium 09/18/17 09/18/17 09/18/17 13:25 16:50 17:00 WBC RBC Hgb Hct MCV MCH MCHC RDW Plt Count MPV Neutrophils % Neutrophils % (Manual) Band Neutrophils % Lymphocytes % Lymphocytes % (Manual) Monocytes % (Manual) Eosinophils % (Manual) Basophils % (Manual) Myelocytes % (Man) Metamyelocytes Platelet Estimate PTT (Actin FS) Anticoagulation Therapy No Result Required. Puncture Site Left radial ABG pH 7.30 L ABG pCO2 at Pt Temp 32.4 L ABG pO2 at Pt Temp 98.8 D ABG HCO3 15.4 L ABG O2 Sat (Measured) 97.3 ABG O2 Content 12.2 L ABG Base Excess -9.7 L Addy Test Positive O2 Delivery Device Aerosol mask Oxygen Flow Rate 40% Vent Mode No Result Required. Vent Rate No Result Required. Mechanical Rate No Result Required. Pressure Support Vent No Result Required. Sodium 142 Potassium 5.3 H Chloride 114 H Carbon Dioxide 19 L Anion Gap 9 BUN 77 H Creatinine 2.0 H POC Glucometer 85.66663 Random Glucose 606 H* Calcium 7.8 L 09/18/17 09/18/17 09/19/17 21:56 23:18 00:00 WBC RBC Hgb Hct MCV MCH MCHC RDW Plt Count MPV Neutrophils % Neutrophils % (Manual) Band Neutrophils % Lymphocytes % Lymphocytes % (Manual) Monocytes % (Manual) Eosinophils % (Manual) Basophils % (Manual) Myelocytes % (Man) Metamyelocytes Platelet Estimate PTT (Actin FS) Anticoagulation Therapy Puncture Site ABG pH ABG pCO2 at Pt Temp ABG pO2 at Pt Temp ABG HCO3 ABG O2 Sat (Measured) ABG O2 Content ABG Base Excess Addy Test O2 Delivery Device Oxygen Flow Rate Vent Mode Vent Rate Mechanical Rate Pressure Support Vent Sodium Potassium Chloride Carbon Dioxide Anion Gap BUN Creatinine POC Glucometer 320.22550 252.85643 244.57932 Random Glucose Calcium 09/19/17 09/19/17 09/19/17 02:05 03:35 05:00 WBC 19.1 H RBC 3.41 L Hgb 8.7 L Hct 27.7 L MCV 81.3 MCH 25.7 MCHC 31.6 L RDW 17.2 H Plt Count 349 MPV 9.0 Neutrophils % No Result Required. Neutrophils % (Manual) Band Neutrophils % Lymphocytes % No Result Required. Lymphocytes % (Manual) Monocytes % (Manual) Eosinophils % (Manual) Basophils % (Manual) Myelocytes % (Man) Metamyelocytes Platelet Estimate PTT (Actin FS) Anticoagulation Therapy Puncture Site ABG pH ABG pCO2 at Pt Temp ABG pO2 at Pt Temp ABG HCO3 ABG O2 Sat (Measured) ABG O2 Content ABG Base Excess Addy Test O2 Delivery Device Oxygen Flow Rate Vent Mode Vent Rate Mechanical Rate Pressure Support Vent Sodium Potassium Chloride Carbon Dioxide Anion Gap BUN Creatinine POC Glucometer 179.11608 234.45405 Random Glucose Calcium 09/19/17 09/19/17 09/19/17 05:00 05:09 06:23 WBC RBC Hgb Hct MCV MCH MCHC RDW Plt Count MPV Neutrophils % Neutrophils % (Manual) Band Neutrophils % Lymphocytes % Lymphocytes % (Manual) Monocytes % (Manual) Eosinophils % (Manual) Basophils % (Manual) Myelocytes % (Man) Metamyelocytes Platelet Estimate PTT (Actin FS) 66.4 H Anticoagulation Therapy Puncture Site Left radial ABG pH 7.34 L ABG pCO2 at Pt Temp 31.8 L ABG pO2 at Pt Temp 124.0 H D ABG HCO3 16.7 L ABG O2 Sat (Measured) 98.6 ABG O2 Content 12.2 L ABG Base Excess -7.7 L Addy Test Positive O2 Delivery Device Aerosol mask Oxygen Flow Rate 40% Vent Mode Vent Rate Mechanical Rate Pressure Support Vent Sodium Potassium Chloride Carbon Dioxide Anion Gap BUN Creatinine POC Glucometer 260.24082 Random Glucose Calcium Active Medications Generic Name Dose Route Start Last Admin Trade Name Freq PRN Reason Stop Dose Admin Acetaminophen 1,000 mg 09/15/17 11:50 09/15/17 12:30 Ofirmev Injection - IVPB 1,000 mg Q6H PRN Administration FEVER OR PAIN Albuterol Sulfate 1 amp 09/16/17 13:37 Ventolin 0.083% Nebulizer Soln - NEB Q4H PRN SHORT OF BREATH/WHEEZING Albuterol/Ipratropium 1 amp 09/16/17 13:53 09/18/17 20:15 Duoneb - NEB 1 amp RQID [facility] Administration Artificial Tears 1 applic 09/15/17 22:00 09/18/17 23:28 Artificial Tears Ointment - OU 1 applic BID [facility] Administration Atorvastatin Calcium 20 mg 09/11/17 22:00 09/18/17 23:28 Lipitor - PO 20 mg HS [facility] Administration Chlorhexidine Gluconate 1 applic 09/15/17 22:00 09/18/17 23:28 Hibiclens For Decolonization - TP 1 applic HS [facility] Administration Chlorhexidine Gluconate 15 ml 09/15/17 22:00 09/18/17 23:29 Peridex - MM 15 ml BID [facility] Administration Ciprofloxacin 2 drop 09/16/17 14:45 09/19/17 06:20 Ciloxan 0.3% Eye Drops -- OS 2 drop Q2H [facility] Administration Dexamethasone Sodium Phosphate 4 mg 09/13/17 21:00 09/19/17 03:03 Decadron Injection - IVPUSH 4 mg Q6H-IV [facility] Administration Diltiazem HCl 90 mg 09/19/17 00:00 09/19/17 06:20 Cardizem - NGT 90 mg Q6HPO [facility] Administration Epinephrine 1 vial 09/18/17 11:45 09/19/17 01:57 S-2 NEB Not Given Q8H-IV [facility] Heparin Sodium (Porcine) 1,000 unit 09/12/17 19:46 Heparin - IVPUSH PRN PRN Heparin Heparin Sodium (Porcine) 5,000 unit 09/12/17 19:46 Heparin - IVPUSH PRN PRN Heparin Hydralazine HCl 10 mg 09/11/17 10:25 09/13/17 21:33 Apresoline Injection - IVPUSH 10 mg Q6H PRN Administration HYPERTENSION HEPARIN SOD,PORK IN 0.45% NACL 25,000 units in 500 mls @ 20 mls/hr 09/12/17 20 :00 09/18/17 21:13 Heparin-1/2ns 25,000 Units/500 IVPB 800 units/hr TITR [facility] 16 mls/hr Protocol Administration 1,000 UNITS/HR Piperacillin Sod/Tazobactam 100 mls @ 200 mls/hr 09/15/17 12:45 09/19/17 02: 00 Sod 3.375 gm/ Dextrose IVPB 200 mls/hr Q8H-IV [facility] Administration Sodium Chloride 1,000 mls @ 50 mls/hr 09/16/17 19:28 09/18/17 21:13 1/2 Normal Saline IV 50 mls/hr ASDIR [facility] Administration Insulin Human Regular 100 100 mls @ 12 mls/hr 09/18/17 21:00 09/18/17 21:15 units/ Sodium Chloride IVPB 12 units/hr TITR [facility] 12 mls/hr Protocol Administration 12 UNITS/HR Metoprolol Tartrate 5 mg 09/11/17 10:25 09/18/17 15:00 Lopressor Injection - IVPUSH 5 mg Q4H PRN Administration HYPERTENSION Midazolam HCl 2 mg 09/17/17 20:26 09/18/17 16:36 Versed - IVPUSH 2 mg Q4H PRN Administration AGITATION Mupirocin 1 applic 09/15/17 12:15 09/18/17 23:28 Bactroban Ointment (For Decolonization) - NS 09/20/17 12:14 1 applic BID [facility] Administration Ondansetron HCl 4 mg 09/11/17 02:02 Zofran Injection IVPUSH Q6H PRN NAUSEA Pantoprazole Sodium 40 mg 09/11/17 10:00 09/18/17 09:27 Protonix Iv IVPUSH 40 mg DAILY [facility] Administration ASSESSMENT/PLAN: 62 yo F with PMHx of HTN, paroxysmal atrial fibrillation on apixaban, DM, HLD, CKD, GERD and colon CA s/p colectomy 2011 with mets to lung admitted to ICU for AMS now extubated ID: Acute sepsis could be 2/2 to PNA with L lung infiltrate CXR Zosyn 3.375g ivpb Q8H Per Dr Mcguire- antibiotics are being D/C today Monitor Neuro/opth:. Extubated, awake, talking and obeys commands, and less lethargic but still agitated R/O critical illness polyneuropathy AMS 2/2 to cerebral edema from multiple acute infarcts with background Afib L eye hyphema- cipro ointment OS Q2H Do not sedate Give iv versed 2mg PRN (for agitation/anxiety) Physical therapy- Consult- Dr Remy Respiratory: Acute hypoxic resp failure-for extubation today Improved cough reflex Extubated- on venturimask at-40% For weaning to nasal cannular Renal: SUSAN R/O CKD hypernatremia- Hyperphosphatemia Hypermagnesemia 1/2 NS @ 50ml/hr CMP,Mg, Phosphorus Tube feeds Metabolic/Endocrine/GI/Lines: DM- with hyperglycemia bgm Insulin drip at 5u/hr-goal glucose 140-180 tube feeding-in view of hyperglycemia per pattern grader cutter -change enteral regimen to Glucerna 1.5 Glucerna 1.5 @ 30cc/hr, increase as tolerated to Target volume: 1150ml volume Target volume provides: 1725 kcals, 95g protein, 872ml fluid. Recommend 25ml/hr water flush (or per ICU team). Reduce Decadron 4mg ivpush Q8H LUE peripheral line, NGT, bateman Hypernatremic Stop 1/2 normal saline, give free water via NGT (deficit-2.3L) Speech and swallow eval- continue NGT feed Lines: NGT, RUE peripheral line, bateman, rectal tube D/C bateman Cardio: Htn HLD Still tachycardic Continue heparin drip for now to transition probably to eliquis when stable- per cardiology iv metoprolol prn -5mg cardizem 90mg Q6H NGT- Hemonc: Colorectal cancer with lung mets Prophylaxis: on heparin gtt protonix 40mg ivpush bid Heel pads Visit type - Emergency Visit Emergency Visit: Yes ED Registration Date: 09/10/17 Care time: The patient presented to the Emergency Department on the above date and was hospitalized for further evaluation of their emergent condition. - New Patient This patient is new to me today: No - Critical Care Critical Care patient: Yes Total Critical Care Time (in minutes): 42 Critical Care Statement: The care of this patient involved high complexity decision making to prevent further life threatening deterioration of the patient 's condition and/or to evaluate & treat vital organ system(s) failure or risk of failure. - Discharge Referral Referred to [facility] Med P.C.: No
[2017-09-19] MEDS: INSULIN REGULAR 100 UNITS in SODIUM CHLORIDE 99 ML IVPB SCH ×2 (07:30→14:50)
[2017-09-19] MEDS: ALBUTEROL SO4 2.5/IPRATROPIUM 0.5 INH SOL 3 ML VIAL.NEB. NEB SCH ×4 (07:40→21:10)
[2017-09-19] MEDS ORDERED: SODIUM CHLORIDE 0.45% 1,000 ML IV SCH (08:53)
[2017-09-19 10:13] LABS: ANISOCYTOSIS 0; MACROCYTOSIS 0; PLATELET ESTIMATE NORMAL
[2017-09-19] MEDS ORDERED: PT OWN MED DRAWER 7, Y5N ONE ×3 (10:18→21:24)
--- NOTE | 2017-09-19 10:39 | CONSULT ---
Admitting History and Physical - Primary Care Physician PCP: Nathalia Arciniega - Admission History of Present Illness: 62 yo F with PMHx of HTN, paroxysmal atrial fibrillation on apixaban, DM, HLD, CKD, GERD and colon CA s/p colectomy 2011 with mets to lung admitted to ICU for with nausea and vomiting and intubated. ID: Acute sepsis could be 2/2 to PNA with L lung infiltrate Extubated yesterday/NGT in place. Head CT 1-3: B PICA infarct L > R with mild 4th ventricular impingement MRI Brain 1-3: L > R PICA acute infarct; multifocal T2/FLAIR hyperintensity of periveventricular, R temporal, G parietal, L frontal, L BG, L occipital regions c/w small acute embolic strokes; some smaller foci of hemorrhages within the ischemic zones supratentorially near R parietal region Head CT 1-5, 6, 09-14: Evolving and new extensive L medial occipital ischemic stroke; multiple B parietal smaller infarcts more prominent lateral and third ventricles; no enhancing lesion to suggest mets History Source: Medical Record Limitations to Obtaining History: Clinical Condition - Past Medical History Cardiovascular: Yes: AFIB, HTN, Hyperlipdemia Gastrointestinal: Yes: Cancer (COLON), GERD Heme/Onc: Yes: Cancer, Current Chemotherapy Psych: Yes: Anxiety Endocrine: Yes: Diabetes Mellitus (ON INSULIN PUMP) - Past Surgical History Past Surgical History: Yes: Colectomy (2 YRS AGO COLON CA), Hernia Repair ( icisional) - Smoking History Smoking history: Former smoker Have you smoked in the past 12 months: Yes Aproximately how many cigarettes per day: 0 - Alcohol/Substance Use Hx Alcohol Use: No - Social History ADL: Independent History of Recent Travel: No History - Admission Reason For Visit: HEADACHE,LUNG MASS,VOMITING - General Mental Status: Able to Follow Commands, Lethargic Attention: Distractible Head/Neck Control: Needs Assist - Hearing Hearing: Normal Hearing Aide: No With Patient: No Speech Evaluation - Communication Primary Language: SETSWANA Oral Expression Ability: Yes: Moderate Impairment - Speech Production Able to Make Needs Known: Yes: Moderately Impaired Intelligibility: Yes: Moderately Impaired - Speech Characteristics Voice Loudness: Severely Soft/Quiet Voice Phonatory-based Quality: Yes: Breathy, Weak, Vocal Wetness Speech Pattern: Impaired Speech Clarity: < 25% Voice, Other Observations: Yes: Inadequate Breath Support (Audible inspiration. Likely vocal cord edema) - Language/Auditory Comprehension Follows: Yes: 1 Stage Simple Commands - Swallow Evaluation/Bedside Assessment Current Nutritional Intake: NG Tube Lingual Movement: Symmetric Recommendations - Speech Evaluation, Impression/Plan Impression: Audible inspiration.Breathy, weak.Impaired breath support for speech. Likely vocal cord edema sec intubation. Possibly affected by multiple bilateral infarcts as well. No PO trials given. Strong reflexive cough but inefficient, weak volitional cough with impaired airway protection suspected.High risk of aspiration at this time. - Dysphagia Impressions/Plan Swallowing Skills: Impaired Dysphagia Impressions: Severe Impairment, Suspect Aspiration *Silent aspiration: cannot be R/O at bedside Dysphagia Treatment Plan: Other (Mouth care. Suction PRN.) - Recommendations Diet Consistency: NPO, Other (Continue NGT feedings for now. To reassess 09/22.)
[2017-09-19] MEDS: PANTOPRAZOLE SODIUM 40 MG VIAL IVPUSH SCH (10:41)
[2017-09-19] MEDS: MINERAL OIL/PETROLATUM,WHITE 3.5 GM TUBE OU SCH ×2 (10:43→21:57)
[2017-09-19] MEDS: MUPIROCIN 2% TOPICAL OINTMENT FOR DECOLONIZATION NS SCH ×2 (10:57→21:57)
--- NOTE | 2017-09-19 11:23 | PN ---
Progress Note (short form) - Note Progress Note: extubated more responsive Vital Signs Period Temp Pulse Resp BP Sys/Mcdaniel Pulse Ox Last 24 Hr 98.2 F-99.4 F 88-177 12-22 149-186/65-117 100-100 cor-rrr llungs clear abd soft,nt ext no edema CBC, BMP 09/19/17 05:00 09/19/17 05:00 Microbiology 09/15/17 12:52 Blood - Peripheral Venous Blood Culture - Preliminary NO GROWTH OBTAINED AFTER 72 HOURS, INCUBATION TO CONTINUE FOR 2 DAYS. 09/15/17 12:45 Blood - Peripheral Venous Blood Culture - Preliminary NO GROWTH OBTAINED AFTER 72 HOURS, INCUBATION TO CONTINUE FOR 2 DAYS. 09/15/17 12:00 Sputum - Endotrachea Suction/Ventilator Gram Stain - Final 09/15/17 12:00 Sputum - Endotrachea Suction/Ventilator Sputum Culture - Final Yeast Like Organism 09/15/17 12:00 Urine - Urine Mcdonald Urine Culture - Final NO GROWTH OBTAINED 09/09/17 22:58 Blood - Peripheral Venous Blood Culture - Final NO GROWTH AFTER 5 DAYS INCUBATION 09/09/17 22:30 Blood - Peripheral Venous Blood Culture - Final NO GROWTH AFTER 5 DAYS INCUBATION 09/10/17 00:13 Urine - Urine Clean Catch Urine Culture - Final Contaminated: Please Repeat cxray lung mass, no infiltrates a/p fevers- resolved, day #5 zosyn- will d/c antibiotics and observ respiratory failure-extubated 09/18 CVA Afib metastatic colon cancer Renal insufficiency diabetes leukocytosis- on steroids no diarrhea d/c antibiotics and observe reculture off antibiotics if leukocytosis persists or worsens
[2017-09-19] MEDS: METOPROLOL TARTRATE 5 MG/5 ML VIAL IVPUSH ONE (11:49)
--- NOTE | 2017-09-19 11:53 | PN ---
Teaching Attending Note Name of Resident: Lisa Mott ATTENDING PHYSICIAN STATEMENT I saw and evaluated the patient. I reviewed the resident's note and discussed the case with the resident. I agree with the resident's findings and plan as documented. SUBJECTIVE: Patient seen and examined in the ICU. Remains extubated. More awake and interactive. No pressors. OBJECTIVE: Intake & Output 09/16/17 09/17/17 09/18/17 09/19/17 23:59 23:59 23:59 23:59 Intake Total 2898.1 2708.2 2303 1210 Output Total 1900 1750 3100 750 Balance 998.1 958.2 -797 460 Weight 194 lb 1.6 oz 195 lb 6.4 oz 196 lb 3.382 oz 198 lb 10.184 oz Last Vital Signs Temp Pulse Resp BP Pulse Ox 98.5 F 104 H 13 167/75 100 09/19/17 10:00 09/19/17 10:00 09/19/17 10:00 09/19/17 10:00 09/19/17 08:33 Active Medications Acetaminophen (Ofirmev Injection -) 1,000 mg IVPB Q6H PRN PRN Reason: FEVER OR PAIN Last Admin: 09/15/17 12:30 Dose: 1,000 mg Albuterol Sulfate (Ventolin 0.083% Nebulizer Soln -) 1 amp NEB Q4H PRN PRN Reason: SHORT OF BREATH/WHEEZING Albuterol/Ipratropium (Duoneb -) 1 amp NEB RQID [facility] Last Admin: 09/19/17 11:25 Dose: 1 amp Artificial Tears (Artificial Tears Ointment -) 1 applic OU BID [facility] Last Admin: 09/19/17 10:43 Dose: 1 applic Atorvastatin Calcium (Lipitor -) 20 mg PO [facility] Last Admin: 09/18/17 23:28 Dose: 20 mg Chlorhexidine Gluconate (Hibiclens For Decolonization -) 1 applic TP [facility] Last Admin: 09/18/17 23:28 Dose: 1 applic Chlorhexidine Gluconate (Peridex -) 15 ml MM BID [facility] Last Admin: 09/18/17 23:29 Dose: 15 ml Ciprofloxacin (Ciloxan 0.3% Eye Drops --) 2 drop OS Q2H [facility] Last Admin: 09/19/17 10:42 Dose: 2 drop Dexamethasone Sodium Phosphate (Decadron Injection -) 4 mg IVPUSH Q8H-IV [facility] Diltiazem HCl (Cardizem -) 90 mg NGT Q6HPO [facility] Last Admin: 09/19/17 06:20 Dose: 90 mg Heparin Sodium (Porcine) (Heparin -) 1,000 unit IVPUSH PRN PRN PRN Reason: Heparin Heparin Sodium (Porcine) (Heparin -) 5,000 unit IVPUSH PRN PRN PRN Reason: Heparin Hydralazine HCl (Apresoline Injection -) 10 mg IVPUSH Q6H PRN PRN Reason: HYPERTENSION Last Admin: 09/13/17 21:33 Dose: 10 mg HEPARIN SOD,PORK IN 0.45% NACL (Heparin-1/2ns 25,000 Units/500) 25,000 units in 500 mls @ 20 mls/hr IVPB TITR [facility]; 1,000 UNITS/HR PRN Reason: Protocol Last Admin: 09/18/17 21:13 Dose: 800 units/hr, 16 mls/hr Insulin Human Regular 100 (units/ Sodium Chloride) 100 mls @ 5 mls/hr IVPB TITR [facility]; 5 UNITS/HR PRN Reason: Protocol Last Admin: 09/19/17 07:30 Dose: 5 units/hr, 5 mls/hr Metoprolol Tartrate (Lopressor Injection -) 5 mg IVPUSH Q4H PRN PRN Reason: HYPERTENSION Last Admin: 09/18/17 15:00 Dose: 5 mg Midazolam HCl (Versed -) 2 mg IVPUSH Q4H PRN PRN Reason: AGITATION Last Admin: 09/18/17 16:36 Dose: 2 mg Mupirocin (Bactroban Ointment (For Decolonization) -) 1 applic NS BID [facility] Stop: 09/20/17 12:14 Last Admin: 09/19/17 10:57 Dose: 1 applic Ondansetron HCl (Zofran Injection) 4 mg IVPUSH Q6H PRN PRN Reason: NAUSEA Pantoprazole Sodium (Protonix Iv) 40 mg IVPUSH DAILY [facility] Last Admin: 09/19/17 10:41 Dose: 40 mg Gen: Extubated, awake and interactive HEENT: Improving Left scleral hemorrhage Heart: RRR Lung: Bilateral scattered rhonchi Abd: soft, nontender Ext: + edema Neuro: Improving motor strength Laboratory Results - last 24 hr 09/18/17 09/18/17 09/18/17 05:30 13:25 16:48 WBC RBC Hgb Hct MCV MCH MCHC RDW Plt Count MPV Neutrophils % Neutrophils % (Manual) 88.8 H Band Neutrophils % 1.0 Lymphocytes % Lymphocytes % (Manual) 1.0 L D Monocytes % (Manual) 9 D Eosinophils % (Manual) 0.0 Basophils % (Manual) 0.0 Myelocytes % (Man) 0 Metamyelocytes 0 D Hypochromia Platelet Estimate Normal Polychromasia Poikilocytosis Anisocytosis Microcytosis Macrocytosis Schistocytes PTT (Actin FS) Anticoagulation Therapy Puncture Site ABG pH ABG pCO2 at Pt Temp ABG pO2 at Pt Temp ABG HCO3 ABG O2 Sat (Measured) ABG O2 Content ABG Base Excess Addy Test O2 Delivery Device Oxygen Flow Rate Vent Mode Vent Rate Mechanical Rate Pressure Support Vent Sodium Potassium Chloride Carbon Dioxide Anion Gap BUN Creatinine Creat Clearance w eGFR POC Glucometer 85.71639 > 400 Random Glucose Calcium Phosphorus Magnesium Total Bilirubin AST ALT Alkaline Phosphatase Total Protein Albumin 09/18/17 09/18/17 09/18/17 16:50 17:00 18:20 WBC RBC Hgb Hct MCV MCH MCHC RDW Plt Count MPV Neutrophils % Neutrophils % (Manual) Band Neutrophils % Lymphocytes % Lymphocytes % (Manual) Monocytes % (Manual) Eosinophils % (Manual) Basophils % (Manual) Myelocytes % (Man) Metamyelocytes Hypochromia Platelet Estimate Polychromasia Poikilocytosis Anisocytosis Microcytosis Macrocytosis Schistocytes PTT (Actin FS) Anticoagulation Therapy No Result Required. Puncture Site Left radial ABG pH 7.30 L ABG pCO2 at Pt Temp 32.4 L ABG pO2 at Pt Temp 98.8 D ABG HCO3 15.4 L ABG O2 Sat (Measured) 97.3 ABG O2 Content 12.2 L ABG Base Excess -9.7 L Addy Test Positive O2 Delivery Device Aerosol mask Oxygen Flow Rate 40% Vent Mode No Result Required. Vent Rate No Result Required. Mechanical Rate No Result Required. Pressure Support Vent No Result Required. Sodium 142 Potassium 5.3 H Chloride 114 H Carbon Dioxide 19 L Anion Gap 9 BUN 77 H Creatinine 2.0 H Creat Clearance w eGFR POC Glucometer > 400 Random Glucose 606 H* Calcium 7.8 L Phosphorus Magnesium Total Bilirubin AST ALT Alkaline Phosphatase Total Protein Albumin 09/18/17 09/18/17 09/18/17 19:45 20:57 21:56 WBC RBC Hgb Hct MCV MCH MCHC RDW Plt Count MPV Neutrophils % Neutrophils % (Manual) Band Neutrophils % Lymphocytes % Lymphocytes % (Manual) Monocytes % (Manual) Eosinophils % (Manual) Basophils % (Manual) Myelocytes % (Man) Metamyelocytes Hypochromia Platelet Estimate Polychromasia Poikilocytosis Anisocytosis Microcytosis Macrocytosis Schistocytes PTT (Actin FS) Anticoagulation Therapy Puncture Site ABG pH ABG pCO2 at Pt Temp ABG pO2 at Pt Temp ABG HCO3 ABG O2 Sat (Measured) ABG O2 Content ABG Base Excess Addy Test O2 Delivery Device Oxygen Flow Rate Vent Mode Vent Rate Mechanical Rate Pressure Support Vent Sodium Potassium Chloride Carbon Dioxide Anion Gap BUN Creatinine Creat Clearance w eGFR POC Glucometer > 400 370.63107 320.75813 Random Glucose Calcium Phosphorus Magnesium Total Bilirubin AST ALT Alkaline Phosphatase Total Protein Albumin 09/18/17 09/19/17 09/19/17 23:18 00:00 02:05 WBC RBC Hgb Hct MCV MCH MCHC RDW Plt Count MPV Neutrophils % Neutrophils % (Manual) Band Neutrophils % Lymphocytes % Lymphocytes % (Manual) Monocytes % (Manual) Eosinophils % (Manual) Basophils % (Manual) Myelocytes % (Man) Metamyelocytes Hypochromia Platelet Estimate Polychromasia Poikilocytosis Anisocytosis Microcytosis Macrocytosis Schistocytes PTT (Actin FS) Anticoagulation Therapy Puncture Site ABG pH ABG pCO2 at Pt Temp ABG pO2 at Pt Temp ABG HCO3 ABG O2 Sat (Measured) ABG O2 Content ABG Base Excess Addy Test O2 Delivery Device Oxygen Flow Rate Vent Mode Vent Rate Mechanical Rate Pressure Support Vent Sodium Potassium Chloride Carbon Dioxide Anion Gap BUN Creatinine Creat Clearance w eGFR POC Glucometer 252.95767 244.60275 179.43475 Random Glucose Calcium Phosphorus Magnesium Total Bilirubin AST ALT Alkaline Phosphatase Total Protein Albumin 09/19/17 09/19/17 09/19/17 03:35 05:00 05:00 WBC 19.1 H RBC 3.41 L Hgb 8.7 L Hct 27.7 L MCV 81.3 MCH 25.7 MCHC 31.6 L RDW 17.2 H Plt Count 349 MPV 9.0 Neutrophils % No Result Required. Neutrophils % (Manual) 90.0 H Band Neutrophils % 0.0 Lymphocytes % No Result Required. Lymphocytes % (Manual) 2.0 L D Monocytes % (Manual) 6 Eosinophils % (Manual) 0.0 Basophils % (Manual) 0.0 Myelocytes % (Man) 1 D Metamyelocytes 1 D Hypochromia 1+ Platelet Estimate Normal Polychromasia 0 Poikilocytosis 3+ Anisocytosis 0 Microcytosis 0 Macrocytosis 0 Schistocytes 2+ PTT (Actin FS) Anticoagulation Therapy Puncture Site ABG pH ABG pCO2 at Pt Temp ABG pO2 at Pt Temp ABG HCO3 ABG O2 Sat (Measured) ABG O2 Content ABG Base Excess Addy Test O2 Delivery Device Oxygen Flow Rate Vent Mode Vent Rate Mechanical Rate Pressure Support Vent Sodium 147 H Potassium 5.1 Chloride 115 H Carbon Dioxide 18 L Anion Gap 14 BUN 68 H Creatinine 1.8 H Creat Clearance w eGFR 28.70 POC Glucometer 234.78336 Random Glucose 241 H Calcium 8.3 L Phosphorus 4.0 D Magnesium 2.8 H Total Bilirubin 0.2 AST 14 L D ALT 17 Alkaline Phosphatase 83 Total Protein 5.0 L Albumin 2.0 L 09/19/17 09/19/17 09/19/17 05:00 05:09 06:23 WBC RBC Hgb Hct MCV MCH MCHC RDW Plt Count MPV Neutrophils % Neutrophils % (Manual) Band Neutrophils % Lymphocytes % Lymphocytes % (Manual) Monocytes % (Manual) Eosinophils % (Manual) Basophils % (Manual) Myelocytes % (Man) Metamyelocytes Hypochromia Platelet Estimate Polychromasia Poikilocytosis Anisocytosis Microcytosis Macrocytosis Schistocytes PTT (Actin FS) 66.4 H Anticoagulation Therapy Puncture Site Left radial ABG pH 7.34 L ABG pCO2 at Pt Temp 31.8 L ABG pO2 at Pt Temp 124.0 H D ABG HCO3 16.7 L ABG O2 Sat (Measured) 98.6 ABG O2 Content 12.2 L ABG Base Excess -7.7 L Addy Test Positive O2 Delivery Device Aerosol mask Oxygen Flow Rate 40% Vent Mode Vent Rate Mechanical Rate Pressure Support Vent Sodium Potassium Chloride Carbon Dioxide Anion Gap BUN Creatinine Creat Clearance w eGFR POC Glucometer 260.16175 Random Glucose Calcium Phosphorus Magnesium Total Bilirubin AST ALT Alkaline Phosphatase Total Protein Albumin 09/19/17 09/19/1709/19/18 07:38 09:41 11:08 WBC RBC Hgb Hct MCV MCH MCHC RDW Plt Count MPV Neutrophils % Neutrophils % (Manual) Band Neutrophils % Lymphocytes % Lymphocytes % (Manual) Monocytes % (Manual) Eosinophils % (Manual) Basophils % (Manual) Myelocytes % (Man) Metamyelocytes Hypochromia Platelet Estimate Polychromasia Poikilocytosis Anisocytosis Microcytosis Macrocytosis Schistocytes PTT (Actin FS) Anticoagulation Therapy Puncture Site ABG pH ABG pCO2 at Pt Temp ABG pO2 at Pt Temp ABG HCO3 ABG O2 Sat (Measured) ABG O2 Content ABG Base Excess Addy Test O2 Delivery Device Oxygen Flow Rate Vent Mode Vent Rate Mechanical Rate Pressure Support Vent Sodium Potassium Chloride Carbon Dioxide Anion Gap BUN Creatinine Creat Clearance w eGFR POC Glucometer 220.28513 206.19944 198.19641 Random Glucose Calcium Phosphorus Magnesium Total Bilirubin AST ALT Alkaline Phosphatase Total Protein Albumin ASSESSMENT AND PLAN: Multiple Acute Embolic CVA Acute Hypoxic Respiratory Failure Pneumonia Atrial Fibrillation Metastatic Colon Ca to Lung Acute on Chronic Renal Failure HTN DM Hypercholesterolemia - ABX per ID - rate control per Cardiology - AC - D/C IVF: No Hypotonic saline - monitor urine output, creatinine - O2 as needed to maintain saturation - DVT/GI prophylaxis - continue ICU monitoring Dr Kaplan Critical care time spent in reviewing chart, evaluating patient and formulating plan 38 min
[2017-09-19] MEDS: METOPROLOL TARTRATE 5 MG/5 ML VIAL IVPUSH PRN ×2 (12:00→21:31)
--- NOTE | 2017-09-19 13:50 | CONS ---
DATE OF CONSULTATION: 09/19/2017 HISTORY OF PRESENT ILLNESS: The patient is a 62-year-old woman with past medical history of metastatic colon cancer with metastases to the lung who developed port difficulties, nausea and vomiting in the day or days prior to admission. She developed a headache and apparently subsequently was found to have atrial fibrillation. She underwent imaging, including brain MRI as well as multiple CAT scans of the head which were at first concerning for possible metastatic disease but now are more concerning for multiple CVAs. Patient apparently had been on Eliquis at some point. MR on September 10, 2017, showed numerous acute bilateral infratentorial and supratentorial infarcts and possible occlusion of the left vertebral artery. Several chronic microbleeds in the cerebral and cerebellar hemispheres were also noted bilaterally. Patient was until recently intubated but is now extubated and able to follow commands, moving all 4 limbs, and rehabilitation evaluation was ordered. Other significant hospital course significant for fevers and leukocytosis. However, she has been on steroids. Patient underwent swallowing evaluation with Park Harrison, MS [facility], on September 19 and aspiration was suspected. N.p.o. with recommendation to continue NG feeds at this time. Most recent blood work done today showed WBCs 19.1 which are elevated and trending higher. Her hemoglobin, however, is stable at 8.7, platelet count stable, 349. Chemistry showed some electrolyte abnormalities, including elevated sodium, 147; potassium normalized at 5.1; elevated BUN, 68; creatinine 1.8; decreased total protein, 5.0; and albumin 2.0. The patient reports no pain. She speaks very slowly, uncertain how reliable the patient is, but she seems to be responsive. Last CAT scan of the head on September 14, 2017, showed no evidence of intracranial enhancing lesions, no acute intracranial hemorrhage, nonhemorrhagic subacute infarcts in bilateral cerebellar hemispheres, left more than right, nonhemorrhagic infarct of the left occipital lobe, ischemic change in the right parietal lobe was also noted. PAST MEDICAL AND SURGICAL HISTORY: As above, taken from her medical record. Also a history of hypertension, atrial fibrillation, hyperlipidemia, insulin-dependent diabetes, chronic kidney disease, gastroesophageal reflux disease, her colon cancer, is status post colectomy and colostomy, 2011, Mediport, hysterectomy, cholecystectomy and laparoscopic hernia repair, lysis of adhesions. MEDICATIONS: Currently she is on IV heparin and again Decadron. SOCIAL HISTORY: Per the patient she lives in a house with stairs. She smokes a half a pack per day but had previously smoked 1 to 2 packs per day since a very young age. No alcohol. Premorbidly she may have been using a straight cane but was able to ambulate at least per her recollection. Current function: Dependent. REVIEW OF SYSTEMS: No headache. No lightheadedness, dizziness. No blurry vision. Double vision per the patient. Speech is very slow, but patient has no complaints of pain. Generalized weakness but no focal weakness. No complaints of loss of sensation. PHYSICAL EXAMINATION: Patient is seen lying in bed. She has a breathing mask on, but she is awake. She is able to follow commands and is in no acute distress. She does seem to have a left gaze preference and possibly some left facial weakness. She has some periorbital edema and ecchymosis on the left side. She tracks to a certain degree with her eyes but seems to see better on the left visual field than the right visual field. She also may have some weakness in the left side more than the right side, although she seems to have antigravity strength throughout. She has got good head doffer in her right hand of 5/5, at least 4 to 5 proximal strength and good strength in the right proximal lower extremity at least 4/5, good distal strength, 3+ to 4/5. Left side may be a tad weaker with 3/5 head doffer strength, antigravity elbow flexion strength, 2/5 shoulder girdle strength, left hip is 2+ to 3/5 and knee extensors 3+/5, dorsiflexion 3/5. She has intact sensation. Toes seem upgoing on the left and downgoing on the right and she has good range of motion. No gross arthritic change. Reflexes appear depressed at this time. OVERALL IMPRESSION: 1. Significant deficits in mobility and activities of daily living. 2. Multiple cerebrovascular accidents as described above, possible resultant left hemiparesis and possible left visual field cut. 3. Patient is a high risk for aspiration, cannot rule out dysphagia. 4. No definite aphasia. 5. History of colon cancer with metastatic lesions but no definite brain metastasis. 6. Atrial fibrillation, on anticoagulation. Last partial thromboplastin time done today was 66.4. 7. Elevated risk for skin breakdown due to immobility. 8. Elevated risk for constipation. 9. Other past medical history as above. PLAN/SUGGESTIONS: 1. Physical Therapy to work with the patient on range of motion for limb strengthening, bed mobility when able, sitting up in bed and once on the floor possible transfers and ambulation if tolerated. 2. Daily range of motion, Nursing. 3. Patient is anticoagulated. No further DVT prophylaxis needed. 4. Follow up with Speech Pathology but currently n.p.o. recommended. 5. Continue NG tube. 6. Medical followup. 7. Will need extensive rehabilitation most likely in an acute rehabilitation setting such as [facility] or [place], but this may depend on her response to therapy and ability to tolerate therapy as well as length of hospitalization. Thank you very much for this consultation. FAINA CRUZ M.D. [id number]
--- NOTE | 2017-09-19 14:05 | PN ---
Progress Note, Physician History of Present Illness: Pt seen and examined at bedside. She remains in the ICU. Her mental status is not at baseline. - Current Medication List Current Medications: Active Medications Acetaminophen (Ofirmev Injection -) 1,000 mg IVPB Q6H PRN PRN Reason: FEVER OR PAIN Last Admin: 09/15/17 12:30 Dose: 1,000 mg Albuterol Sulfate (Ventolin 0.083% Nebulizer Soln -) 1 amp NEB Q4H PRN PRN Reason: SHORT OF BREATH/WHEEZING Albuterol/Ipratropium (Duoneb -) 1 amp NEB RQID [facility] Last Admin: 09/19/17 11:25 Dose: 1 amp Artificial Tears (Artificial Tears Ointment -) 1 applic OU BID [facility] Last Admin: 09/19/17 10:43 Dose: 1 applic Atorvastatin Calcium (Lipitor -) 20 mg PO HS [facility] Last Admin: 09/18/17 23:28 Dose: 20 mg Chlorhexidine Gluconate (Hibiclens For Decolonization -) 1 applic TP HS [facility] Last Admin: 09/18/17 23:28 Dose: 1 applic Chlorhexidine Gluconate (Peridex -) 15 ml MM BID [facility] Last Admin: 09/18/17 23:29 Dose: 15 ml Ciprofloxacin (Ciloxan 0.3% Eye Drops --) 2 drop OS Q2H [facility] Last Admin: 09/19/17 10:42 Dose: 2 drop Dexamethasone Sodium Phosphate (Decadron Injection -) 4 mg IVPUSH Q8H-IV [facility] Diltiazem HCl (Cardizem -) 90 mg NGT Q6HPO [facility] Last Admin: 09/19/17 11:52 Dose: 90 mg Heparin Sodium (Porcine) (Heparin -) 1,000 unit IVPUSH PRN PRN PRN Reason: Heparin Heparin Sodium (Porcine) (Heparin -) 5,000 unit IVPUSH PRN PRN PRN Reason: Heparin Hydralazine HCl (Apresoline Injection -) 10 mg IVPUSH Q6H PRN PRN Reason: HYPERTENSION Last Admin: 09/13/17 21:33 Dose: 10 mg HEPARIN SOD,PORK IN 0.45% NACL (Heparin-1/2ns 25,000 Units/500) 25,000 units in 500 mls @ 20 mls/hr IVPB TITR [facility]; 1,000 UNITS/HR PRN Reason: Protocol Last Admin: 09/18/17 21:13 Dose: 800 units/hr, 16 mls/hr Insulin Human Regular 100 (units/ Sodium Chloride) 100 mls @ 5 mls/hr IVPB TITR [facility]; 5 UNITS/HR PRN Reason: Protocol Last Admin: 09/19/17 07:30 Dose: 5 units/hr, 5 mls/hr Metoprolol Tartrate (Lopressor Injection -) 5 mg IVPUSH Q4H PRN PRN Reason: HYPERTENSION Last Admin: 09/18/17 15:00 Dose: 5 mg Midazolam HCl (Versed -) 2 mg IVPUSH Q4H PRN PRN Reason: AGITATION Last Admin: 09/18/17 16:36 Dose: 2 mg Mupirocin (Bactroban Ointment (For Decolonization) -) 1 applic NS BID [facility] Stop: 09/20/17 12:14 Last Admin: 09/19/17 10:57 Dose: 1 applic Ondansetron HCl (Zofran Injection) 4 mg IVPUSH Q6H PRN PRN Reason: NAUSEA Pantoprazole Sodium (Protonix Iv) 40 mg IVPUSH DAILY [facility] Last Admin: 09/19/17 10:41 Dose: 40 mg - Objective Vital Signs: Vital Signs Temperature 98.5 F 09/19/17 10:00 Pulse Rate 155 H 09/19/17 11:49 Respiratory Rate 13 09/19/17 10:00 Blood Pressure 188/100 09/19/17 11:49 O2 Sat by Pulse Oximetry (%) 100 09/19/17 08:33 Constitutional: Yes: Calm Eyes: Yes: Conjunctiva Clear HENT: Yes: Atraumatic Neck: Yes: Supple Cardiovascular: Yes: S1, S2 Respiratory: Yes: On Venti-Mask Gastrointestinal: Yes: Soft Genitourinary: Yes: Mcdonald Present Musculoskeletal: Yes: Muscle Weakness Edema: Yes Neurological: Yes: Confusion Labs: CBC, BMP 09/19/17 05:00 09/19/17 05:00 INR, PTT INR 0.96 (0.82-1.09) 09/17/17 06:25 - ....Imaging Chest X-ray: Report Reviewed Problem List - Problems (1) Brain metastasis Code(s): C79.31 - SECONDARY MALIGNANT NEOPLASM OF BRAIN (2) Headache Code(s): R51 - HEADACHE Qualifiers: Headache chronicity pattern: unspecified pattern Intractability: intractable (3) Metastatic colorectal cancer Code(s): C78.5 - SECONDARY MALIGNANT NEOPLASM OF LARGE INTESTINE AND RECTUM (4) SUSAN (acute kidney injury) Code(s): N17.9 - ACUTE KIDNEY FAILURE, UNSPECIFIED (5) Atrial fibrillation Code(s): I48.91 - UNSPECIFIED ATRIAL FIBRILLATION (6) Cancer, colon Code(s): C18.9 - MALIGNANT NEOPLASM OF COLON, UNSPECIFIED Qualifiers: Colon location: unspecified part of colon Qualified Code(s): C18.9 - Malignant neoplasm of colon, unspecified (7) Lung mass Code(s): R91.8 - OTHER NONSPECIFIC ABNORMAL FINDING OF LUNG FIELD Assessment/Plan Current Medications Generic Name Dose Route Start Last Admin Trade Name Freq PRN Reason Stop Dose Admin Acetaminophen 1,000 mg 09/15/17 11:50 09/15/17 12:30 Ofirmev Injection - IVPB 1,000 mg Q6H PRN Administration FEVER OR PAIN Albuterol Sulfate 1 amp 09/16/17 13:37 Ventolin 0.083% Nebulizer Soln - NEB Q4H PRN SHORT OF BREATH/WHEEZING Albuterol/Ipratropium 1 amp 09/16/17 13:53 09/19/17 11:25 Duoneb - NEB 1 amp RQID [facility] Administration Artificial Tears 1 applic 09/15/17 22:00 09/19/17 10:43 Artificial Tears Ointment - OU 1 applic BID [facility] Administration Atorvastatin Calcium 20 mg 09/11/17 22:00 09/18/17 23:28 Lipitor - PO 20 mg HS [facility] Administration Chlorhexidine Gluconate 1 applic 09/15/17 22:00 09/18/17 23:28 Hibiclens For Decolonization - TP 1 applic HS [facility] Administration Chlorhexidine Gluconate 15 ml 09/15/17 22:00 09/18/17 23:29 Peridex - MM 15 ml BID [facility] Administration Ciprofloxacin 2 drop 09/16/17 14:45 09/19/17 10:42 Ciloxan 0.3% Eye Drops -- OS 2 drop Q2H [facility] Administration Dexamethasone Sodium Phosphate 4 mg 09/19/17 18:00 Decadron Injection - IVPUSH Q8H-IV [facility] Diltiazem HCl 90 mg 09/19/17 00:00 09/19/17 11:52 Cardizem - NGT 90 mg Q6HPO [facility] Administration Heparin Sodium (Porcine) 1,000 unit 09/12/17 19:46 Heparin - IVPUSH PRN PRN Heparin Heparin Sodium (Porcine) 5,000 unit 09/12/17 19:46 Heparin - IVPUSH PRN PRN Heparin Hydralazine HCl 10 mg 09/11/17 10:25 09/13/17 21:33 Apresoline Injection - IVPUSH 10 mg Q6H PRN Administration HYPERTENSION HEPARIN SOD,PORK IN 0.45% NACL 25,000 units in 500 mls @ 20 mls/hr 09/12/17 20 :00 09/18/17 21:13 Heparin-1/2ns 25,000 Units/500 IVPB 800 units/hr TITR [facility] 16 mls/hr Protocol Administration 1,000 UNITS/HR Insulin Human Regular 100 100 mls @ 5 mls/hr 09/19/17 08:39 09/19/17 07:30 units/ Sodium Chloride IVPB 5 units/hr TITR [facility] 5 mls/hr Protocol Administration 5 UNITS/HR Metoprolol Tartrate 5 mg 09/11/17 10:25 09/18/17 15:00 Lopressor Injection - IVPUSH 5 mg Q4H PRN Administration HYPERTENSION Midazolam HCl 2 mg 09/17/17 20:26 09/18/17 16:36 Versed - IVPUSH 2 mg Q4H PRN Administration AGITATION Mupirocin 1 applic 09/15/17 12:15 09/19/17 10:57 Bactroban Ointment (For Decolonization) - NS 09/20/17 12:14 1 applic BID [facility] Administration Ondansetron HCl 4 mg 09/11/17 02:02 Zofran Injection IVPUSH Q6H PRN NAUSEA Pantoprazole Sodium 40 mg 09/11/17 10:00 09/19/17 10:41 Protonix Iv IVPUSH 40 mg DAILY [facility] Administration Impression 1. CKD 2. SUSAN 3. DM 4. htn 5. chol 6. chemo port malfunction 7. a-fib 8. lung mass 9. proteinuria 10. adenocarcinoma 11. CVA 12. acute resp failure Plan - renal function stable - free water with feeds - neuro follow up - repeat labs in am - monitor pulse ox - overall prognosis poor - cont ICU care - will follow Dr Llanos
--- NOTE | 2017-09-19 18:28 | PN ---
Progress Note, Physician Chief Complaint: AWAKE O2 SUPPORT WITH VENTIMASK CONFUSED - Current Medication List Current Medications: Active Medications Acetaminophen (Ofirmev Injection -) 1,000 mg IVPB Q6H PRN PRN Reason: FEVER OR PAIN Last Admin: 09/15/17 12:30 Dose: 1,000 mg Albuterol Sulfate (Ventolin 0.083% Nebulizer Soln -) 1 amp NEB Q4H PRN PRN Reason: SHORT OF BREATH/WHEEZING Albuterol/Ipratropium (Duoneb -) 1 amp NEB RQID [facility] Last Admin: 09/19/17 16:15 Dose: 1 amp Artificial Tears (Artificial Tears Ointment -) 1 applic OU BID [facility] Last Admin: 09/19/17 10:43 Dose: 1 applic Atorvastatin Calcium (Lipitor -) 20 mg PO HS [facility] Last Admin: 09/18/17 23:28 Dose: 20 mg Chlorhexidine Gluconate (Hibiclens For Decolonization -) 1 applic TP HS [facility] Last Admin: 09/18/17 23:28 Dose: 1 applic Chlorhexidine Gluconate (Peridex -) 15 ml MM BID [facility] Last Admin: 09/18/17 23:29 Dose: 15 ml Ciprofloxacin (Ciloxan 0.3% Eye Drops --) 2 drop OS Q2H [facility] Last Admin: 09/19/17 14:00 Dose: 2 drop Dexamethasone Sodium Phosphate (Decadron Injection -) 4 mg IVPUSH Q8H-IV [facility] Diltiazem HCl (Cardizem -) 90 mg NGT Q6HPO [facility] Last Admin: 09/19/17 11:52 Dose: 90 mg Heparin Sodium (Porcine) (Heparin -) 1,000 unit IVPUSH PRN PRN PRN Reason: Heparin Heparin Sodium (Porcine) (Heparin -) 5,000 unit IVPUSH PRN PRN PRN Reason: Heparin Hydralazine HCl (Apresoline Injection -) 10 mg IVPUSH Q6H PRN PRN Reason: HYPERTENSION Last Admin: 09/13/17 21:33 Dose: 10 mg HEPARIN SOD,PORK IN 0.45% NACL (Heparin-1/2ns 25,000 Units/500) 25,000 units in 500 mls @ 20 mls/hr IVPB TITR [facility]; 1,000 UNITS/HR PRN Reason: Protocol Last Admin: 09/18/17 21:13 Dose: 800 units/hr, 16 mls/hr Insulin Human Regular 100 (units/ Sodium Chloride) 100 mls @ 5 mls/hr IVPB TITR [facility]; 5 UNITS/HR PRN Reason: Protocol Last Admin: 09/19/17 14:50 Dose: 5 units/hr, 5 mls/hr Metoprolol Tartrate (Lopressor Injection -) 5 mg IVPUSH Q4H PRN PRN Reason: HYPERTENSION Last Admin: 09/19/17 12:00 Dose: 5 mg Midazolam HCl (Versed -) 2 mg IVPUSH Q4H PRN PRN Reason: AGITATION Last Admin: 09/18/17 16:36 Dose: 2 mg Mupirocin (Bactroban Ointment (For Decolonization) -) 1 applic NS BID [facility] Stop: 09/20/17 12:14 Last Admin: 09/19/17 10:57 Dose: 1 applic Ondansetron HCl (Zofran Injection) 4 mg IVPUSH Q6H PRN PRN Reason: NAUSEA Pantoprazole Sodium (Protonix Iv) 40 mg IVPUSH DAILY [facility] Last Admin: 09/19/17 10:41 Dose: 40 mg - Objective Vital Signs: Vital Signs Temperature 97.5 F L 09/19/17 17:15 Pulse Rate 72 09/19/17 17:15 Respiratory Rate 125 H 09/19/17 17:15 Blood Pressure 131/74 09/19/17 17:15 O2 Sat by Pulse Oximetry (%) 100 09/19/17 08:33 Constitutional: Yes: Moderate Distress Eyes: Yes: WNL HENT: Yes: WNL Neck: Yes: WNL Cardiovascular: Yes: WNL Respiratory: Yes: On Venti-Mask, Poor Air Entry, SOB Gastrointestinal: Yes: WNL Genitourinary: Yes: Mcdonald Present Musculoskeletal: Yes: Muscle Weakness Extremities: Yes: WNL Edema: Yes Peripheral Pulses WNL: Yes Integumentary: Yes: WNL Wound/Incision: Yes: Dressing Dry and Intact Neurological: Yes: Confusion, Pre-Existing Deficit, Weakness ...Motor Strength: LLE, RLE Psychiatric: Yes: Other Labs: CBC, BMP 09/19/17 05:00 09/19/17 05:00 INR, PTT INR 0.96 (0.82-1.09) 09/17/17 06:25 Problem List - Problems (1) Brain metastasis Code(s): C79.31 - SECONDARY MALIGNANT NEOPLASM OF BRAIN (2) Headache Code(s): R51 - HEADACHE Qualifiers: Headache chronicity pattern: unspecified pattern Intractability: intractable (3) Intractable vomiting with nausea Code(s): R11.2 - NAUSEA WITH VOMITING, UNSPECIFIED Qualifiers: Vomiting type: unspecified Qualified Code(s): R11.2 - Nausea with vomiting , unspecified (4) SUSAN (acute kidney injury) Code(s): N17.9 - ACUTE KIDNEY FAILURE, UNSPECIFIED (5) Cancer, colon Code(s): C18.9 - MALIGNANT NEOPLASM OF COLON, UNSPECIFIED Qualifiers: Colon location: unspecified part of colon Qualified Code(s): C18.9 - Malignant neoplasm of colon, unspecified (6) Lung mass Code(s): R91.8 - OTHER NONSPECIFIC ABNORMAL FINDING OF LUNG FIELD (7) CVA (cerebral vascular accident) Code(s): I63.9 - CEREBRAL INFARCTION, UNSPECIFIED Assessment/Plan SWALLOW EVAL IVF PAIN CONTROL NEUROLOGY F/U CTS F/U CHECKING LABS PT EVAL OOB TO CHAIR DVT PROPHYLAXIS
[2017-09-19] MEDS ORDERED: traZODone HCL 50 MG TABLET (FP) PO ONE (20:45)
[2017-09-19] MEDS: HEPARIN SOD,PORK IN 0.45% NACL 25,000 UNITS/500 ML INFUS.BAG IVPB SCH (21:02)
[2017-09-19] MEDS ORDERED: INSULIN SLIDING SCALE (NOVOLOG) 1 VIAL SQ SCH (21:45)
[2017-09-19] MEDS: ATORVASTATIN CA 20 MG TABLET (FP) PO SCH (21:55)
[2017-09-19] MEDS: CHLORHEXIDINE GLUCONATE 0.12% 15ML CUP MM SCH (21:56)
[2017-09-19] MEDS: CHLORHEXIDINE GLUCONATE 4% CLEANSER FOR DECOLONIZATION TP SCH (21:58)
[2017-09-19] MEDS: INSULIN DETEMIR 100 UNITS/ML MDV SQ SCH (22:01)
[2017-09-20] MEDS: DEXAMETHASONE SOD PHOSPHATE 4 MG/1 ML VIAL IVPUSH SCH ×3 (02:00→17:54)
[2017-09-20] MEDS: CIPROFLOXACIN 0.3% EYE DROPS 5 ML BOTTLE OS SCH ×13 (02:00→22:45)
[2017-09-20] MEDS: INSULIN SLIDING SCALE (NOVOLOG) 1 VIAL SQ SCH ×6 (02:39→22:28)
[2017-09-20] MEDS: dilTIAZem HCL 30 MG TABLET (FP) NGT SCH ×3 (05:47→18:02)
[2017-09-20 06:16] LABS: HEMATOCRIT 28.6 % (32.4-45.2); HEMOGLOBIN 9.1 GM/dL (10.7-15.3); MCH 25.7 pg (25.7-33.7); MCHC 31.8 g/dl (32.0-36.0); MEAN CELL VOLUME 80.7 fl (80-96); MEAN PLT VOLUME 8.6 fl (7.5-11.1); PLATELET COUNT 387 K/MM3 (134-434); RBC 3.55 M/mm3 (3.60-5.2); RDW 17.3 % (11.6-15.6); WHITE BLOOD COUNT 22.2 K/mm3 (4.0-10.0)
[2017-09-20 07:23] LABS: CHLORIDE 117 mmol/L (98-107); POTASSIUM 4.9 mmol/L (3.5-5.1); SODIUM 147 mmol/L (136-145)
[2017-09-20 07:32] LABS: ALBUMIN 2.1 g/dl (3.4-5.0); ALK PHOS 82 U/L (45-117); ANION GAP 10 (8-16); BILIRUBIN,TOTAL 0.3 mg/dL (0.2-1.0); BLOOD UREA NITROGEN 67 mg/dL (7-18); CALCIUM 8.1 mg/dL (8.5-10.1); CO2 20 mmol/L (21-32); CREATININE 1.7 mg/dL (0.55-1.02); GLUCOSE,RANDOM 204 mg/dL (74-106); MAGNESIUM 2.7 mg/dL (1.8-2.4); PHOSPHOROUS 3.2 mg/dL (2.5-4.9); SGOT/AST 16 U/L (15-37); SGPT/ALT 21 U/L (12-78); TOT PROT 5.2 g/dl (6.4-8.2)
[2017-09-20] MEDS: ALBUTEROL SO4 2.5/IPRATROPIUM 0.5 INH SOL 3 ML VIAL.NEB. NEB SCH (09:00)
[2017-09-20 09:20] LABS: ANISOCYTOSIS 2+; MACROCYTOSIS 0; OVALOCYTE 1+; PLATELET ESTIMATE NORMAL
[2017-09-20] MEDS: METOPROLOL TARTRATE 5 MG/5 ML VIAL IVPUSH PRN ×4 (10:12→21:10)
[2017-09-20] MEDS ORDERED: ALBUTEROL SO4 2.5/IPRATROPIUM 0.5 INH SOL 3 ML VIAL.NEB. NEB PRN (10:30)
--- NOTE | 2017-09-20 10:30 | PN ---
Progress Note (short form) - Note Progress Note: PULMONARY/CCM Pt seen and examined in the ICU. Remains extubated, more alert, awake. Denies shortness of breath. Heart rates tachycardic this AM. Last Vital Signs Temp Pulse Resp BP Pulse Ox 98.3 F 152 H 14 150/76 100 09/20/17 06:00 09/20/17 10:12 09/20/17 10:00 09/20/17 10:12 09/20/17 09:39 Intake & Output 09/17/17 09/18/17 09/19/17 09/20/17 23:59 23:59 23:59 23:59 Intake Total 2708.2 2303 1310 820 Output Total 1750 3100 1900 Balance 958.2 -797 -590 820 Weight 88.632 kg 89 kg 90.1 kg 87.9 kg Gen: mildly tachypneic at rest Heart: irregular, tachycardic Lung: decreased breath sounds at the bases Abd: soft, nontender Ext: + edema CBC, BMP 09/20/17 05:50 09/20/17 05:55 Active Medications Acetaminophen (Ofirmev Injection -) 1,000 mg IVPB Q6H PRN PRN Reason: FEVER OR PAIN Last Admin: 09/15/17 12:30 Dose: 1,000 mg Albuterol Sulfate (Ventolin 0.083% Nebulizer Soln -) 1 amp NEB Q4H PRN PRN Reason: SHORT OF BREATH/WHEEZING Albuterol/Ipratropium (Duoneb -) 1 amp NEB RQID [facility] Last Admin: 09/20/17 09:00 Dose: 1 amp Artificial Tears (Artificial Tears Ointment -) 1 applic OU BID [facility] Last Admin: 09/19/17 21:57 Dose: 1 applic Atorvastatin Calcium (Lipitor -) 20 mg PO [facility] Last Admin: 09/19/17 21:55 Dose: 20 mg Chlorhexidine Gluconate (Hibiclens For Decolonization -) 1 applic TP [facility] Last Admin: 09/19/17 21:58 Dose: 1 applic Chlorhexidine Gluconate (Peridex -) 15 ml MM BID [facility] Last Admin: 09/19/17 21:56 Dose: 15 ml Ciprofloxacin (Ciloxan 0.3% Eye Drops --) 2 drop OS Q2H [facility] Last Admin: 09/20/17 09:00 Dose: 2 drop Dexamethasone Sodium Phosphate (Decadron Injection -) 4 mg IVPUSH Q8H-IV [facility] Last Admin: 09/20/17 02:00 Dose: 4 mg Diltiazem HCl (Cardizem -) 90 mg NGT Q6HPO [facility] Last Admin: 09/20/17 05:47 Dose: 90 mg Hydralazine HCl (Apresoline Injection -) 10 mg IVPUSH Q6H PRN PRN Reason: HYPERTENSION Last Admin: 09/13/17 21:33 Dose: 10 mg HEPARIN SOD,PORK IN 0.45% NACL (Heparin-1/2ns 25,000 Units/500) 25,000 units in 500 mls @ 20 mls/hr IVPB TITR [facility]; 1,000 UNITS/HR PRN Reason: Protocol Last Admin: 09/19/17 21:02 Dose: 800 units/hr, 16 mls/hr Insulin Human Regular 100 (units/ Sodium Chloride) 100 mls @ 5 mls/hr IVPB TITR [facility]; 5 UNITS/HR PRN Reason: Protocol Last Admin: 09/19/17 14:50 Dose: 5 units/hr, 5 mls/hr Insulin Aspart (Novolog Vial Sliding Scale -) 1 vial SQ Q4HPO [facility] PRN Reason: Protocol Last Admin: 09/20/17 05:47 Dose: 4 units Insulin Detemir (Levemir Vial) 15 units SQ HS [facility] Last Admin: 09/19/17 22:01 Dose: 15 units Metoprolol Tartrate (Lopressor Injection -) 5 mg IVPUSH Q4H PRN PRN Reason: HYPERTENSION Last Admin: 09/20/17 10:12 Dose: 5 mg Midazolam HCl (Versed -) 2 mg IVPUSH Q4H PRN PRN Reason: AGITATION Last Admin: 09/18/17 16:36 Dose: 2 mg Mupirocin (Bactroban Ointment (For Decolonization) -) 1 applic NS BID [facility] Stop: 09/20/17 12:14 Last Admin: 09/19/17 21:57 Dose: 1 applic Ondansetron HCl (Zofran Injection) 4 mg IVPUSH Q6H PRN PRN Reason: NAUSEA Pantoprazole Sodium (Protonix Iv) 40 mg IVPUSH DAILY [facility] Last Admin: 09/19/17 10:41 Dose: 40 mg A/P Multiple Acute Embolic CVA s/p Acute Hypoxic Respiratory Failure Pneumonia Atrial Fibrillation with RVR Metastatic Colon Ca to Lung Acute on Chronic Renal Failure HTN DM Hypercholesterolemia - continue antibiotics - titrate rate control - continue anticoagulation - aspiration precautions - increase free water - monitor urine output, creatinine - enteral feeds - DVT/GI prophylaxis - continue ICU monitoring critical care time spent in reviewing chart, evaluating patient and formulating plan 35min
--- NOTE | 2017-09-20 10:51 | PN ---
Progress Note (short form) - Note Progress Note: RENAL Pt known to me from several office visits. She is now in ICU. HAd CVA and has colon mets to lung Awake and alert responds by nodding her head Last Vital Signs Temp Pulse Resp BP Pulse Ox 98.3 F 152 H 14 150/76 100 09/20/17 06:00 09/20/17 10:12 09/20/17 10:00 09/20/17 10:12 09/20/17 09:39 heent has darin at right neck base lungs bilat air entry cvs s1s2 irr abd soft ext trace edema neuro awake CBC, BMP 09/20/17 05:50 09/20/17 05:55 Current Medications Generic Name Dose Route Start Last Admin Trade Name Freq PRN Reason Stop Dose Admin Acetaminophen 1,000 mg 09/15/17 11:50 09/15/17 12:30 Ofirmev Injection - IVPB 1,000 mg Q6H PRN Administration FEVER OR PAIN Albuterol/Ipratropium 1 amp 09/20/17 10:30 Duoneb - NEB Q6H PRN SHORT OF BREATH/WHEEZING Artificial Tears 1 applic 09/15/17 22:00 09/19/17 21:57 Artificial Tears Ointment - OU 1 applic BID [facility] Administration Atorvastatin Calcium 20 mg 09/11/17 22:00 09/19/17 21:55 Lipitor - PO 20 mg HS [facility] Administration Chlorhexidine Gluconate 1 applic 09/15/17 22:00 09/19/17 21:58 Hibiclens For Decolonization - TP 1 applic HS [facility] Administration Chlorhexidine Gluconate 15 ml 09/15/17 22:00 09/19/17 21:56 Peridex - MM 15 ml BID [facility] Administration Ciprofloxacin 2 drop 09/16/17 14:45 09/20/17 09:00 Ciloxan 0.3% Eye Drops -- OS 2 drop Q2H [facility] Administration Dexamethasone Sodium Phosphate 4 mg 09/19/17 18:00 09/20/17 02:00 Decadron Injection - IVPUSH 4 mg Q8H-IV [facility] Administration Diltiazem HCl 90 mg 09/19/17 00:00 09/20/17 05:47 Cardizem - NGT 90 mg Q6HPO [facility] Administration Hydralazine HCl 10 mg 09/11/17 10:25 09/13/17 21:33 Apresoline Injection - IVPUSH 10 mg Q6H PRN Administration HYPERTENSION HEPARIN SOD,PORK IN 0.45% NACL 25,000 units in 500 mls @ 20 mls/hr 09/12/17 20 :00 09/19/17 21:02 Heparin-1/2ns 25,000 Units/500 IVPB 800 units/hr TITR [facility] 16 mls/hr Protocol Administration 1,000 UNITS/HR Insulin Human Regular 100 100 mls @ 5 mls/hr 09/19/17 08:39 09/19/17 14:50 units/ Sodium Chloride IVPB 5 units/hr TITR [facility] 5 mls/hr Protocol Administration 5 UNITS/HR Insulin Aspart 1 vial 09/19/17 22:07 09/20/17 05:47 Novolog Vial Sliding Scale - SQ 4 units Q4HPO [facility] Administration Protocol Insulin Detemir 15 units 09/19/17 22:00 09/19/17 22:01 Levemir Vial SQ 15 units HS [facility] Administration Metoprolol Tartrate 5 mg 09/11/17 10:25 09/20/17 10:12 Lopressor Injection - IVPUSH 5 mg Q4H PRN Administration HYPERTENSION Midazolam HCl 2 mg 09/17/17 20:26 09/18/17 16:36 Versed - IVPUSH 2 mg Q4H PRN Administration AGITATION Mupirocin 1 applic 09/15/17 12:15 09/19/17 21:57 Bactroban Ointment (For Decolonization) - NS 09/20/17 12:14 1 applic BID [facility] Administration Ondansetron HCl 4 mg 09/11/17 02:02 Zofran Injection IVPUSH Q6H PRN NAUSEA Pantoprazole Sodium 40 mg 09/11/17 10:00 09/19/17 10:41 Protonix Iv IVPUSH 40 mg DAILY [facility] Administration Impression 1. 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 SUSAN 3. DM 4. htn 5. chol 6. chemo port malfunction- s/p removal 7. a-fib 8. lung mass 9. proteinuria 10. adenocarcinoma 11. CVA 12. acute resp failure Plan - renal function stable - free water with feeds - neuro follow up - repeat labs in am - monitor pulse ox MV
[2017-09-20] MEDS: INSULIN REGULAR 100 UNITS in SODIUM CHLORIDE 99 ML IVPB SCH (11:09)
[2017-09-20] MEDS: MINERAL OIL/PETROLATUM,WHITE 3.5 GM TUBE OU SCH ×2 (11:10→22:26)
[2017-09-20] MEDS: MUPIROCIN 2% TOPICAL OINTMENT FOR DECOLONIZATION NS SCH (11:10)
[2017-09-20] MEDS: CHLORHEXIDINE GLUCONATE 0.12% 15ML CUP MM SCH ×2 (11:28→22:25)
[2017-09-20] MEDS: PANTOPRAZOLE SODIUM 40 MG VIAL IVPUSH SCH (11:29)
--- NOTE | 2017-09-20 13:42 | PN ---
Progress Note, Physician Chief Complaint: AWAKE MORE ALERT 02 NC NGT BEDSIDE - Current Medication List Current Medications: Active Medications Acetaminophen (Ofirmev Injection -) 1,000 mg IVPB Q6H PRN PRN Reason: FEVER OR PAIN Last Admin: 09/15/17 12:30 Dose: 1,000 mg Albuterol/Ipratropium (Duoneb -) 1 amp NEB Q6H PRN PRN Reason: SHORT OF BREATH/WHEEZING Artificial Tears (Artificial Tears Ointment -) 1 applic OU BID [facility] Last Admin: 09/20/17 11:10 Dose: 1 applic Atorvastatin Calcium (Lipitor -) 20 mg PO HS [facility] Last Admin: 09/19/17 21:55 Dose: 20 mg Chlorhexidine Gluconate (Hibiclens For Decolonization -) 1 applic TP HS [facility] Last Admin: 09/19/17 21:58 Dose: 1 applic Chlorhexidine Gluconate (Peridex -) 15 ml MM BID [facility] Last Admin: 09/20/17 11:28 Dose: 15 ml Ciprofloxacin (Ciloxan 0.3% Eye Drops --) 2 drop OS Q2H [facility] Last Admin: 09/20/17 11:11 Dose: 2 drop Dexamethasone Sodium Phosphate (Decadron Injection -) 4 mg IVPUSH Q8H-IV [facility] Last Admin: 09/20/17 11:28 Dose: 4 mg Diltiazem HCl (Cardizem -) 90 mg NGT Q6HPO [facility] Last Admin: 09/20/17 11:29 Dose: 90 mg Hydralazine HCl (Apresoline Injection -) 10 mg IVPUSH Q6H PRN PRN Reason: HYPERTENSION Last Admin: 09/13/17 21:33 Dose: 10 mg HEPARIN SOD,PORK IN 0.45% NACL (Heparin-1/2ns 25,000 Units/500) 25,000 units in 500 mls @ 20 mls/hr IVPB TITR [facility]; 1,000 UNITS/HR PRN Reason: Protocol Last Admin: 09/19/17 21:02 Dose: 800 units/hr, 16 mls/hr Insulin Aspart (Novolog Vial Sliding Scale -) 1 vial SQ Q4HPO [facility] PRN Reason: Protocol Last Admin: 09/20/17 11:07 Dose: 4 units Insulin Detemir (Levemir Vial) 15 units SQ [facility] Last Admin: 09/19/17 22:01 Dose: 15 units Metoprolol Tartrate (Lopressor Injection -) 5 mg IVPUSH Q4H PRN PRN Reason: HYPERTENSION Last Admin: 09/20/17 10:12 Dose: 5 mg Midazolam HCl (Versed -) 2 mg IVPUSH Q4H PRN PRN Reason: AGITATION Last Admin: 09/18/17 16:36 Dose: 2 mg Ondansetron HCl (Zofran Injection) 4 mg IVPUSH Q6H PRN PRN Reason: NAUSEA Pantoprazole Sodium (Protonix Iv) 40 mg IVPUSH DAILY [facility] Last Admin: 09/20/17 11:29 Dose: 40 mg - Objective Vital Signs: Vital Signs Temperature 98.2 F 09/20/17 10:05 Pulse Rate 122 H 09/20/17 12:00 Respiratory Rate 12 09/20/17 12:00 Blood Pressure 152/67 09/20/17 12:00 O2 Sat by Pulse Oximetry (%) 100 09/20/17 09:39 Constitutional: Yes: Moderate Distress Eyes: Yes: WNL HENT: Yes: WNL Neck: Yes: WNL Cardiovascular: Yes: WNL Respiratory: Yes: On Nasal O2 Gastrointestinal: Yes: WNL Genitourinary: Yes: Mcdonald Present Extremities: Yes: WNL Edema: Yes Peripheral Pulses WNL: Yes Integumentary: Yes: WNL Wound/Incision: Yes: Dressing Dry and Intact Neurological: Yes: Pre-Existing Deficit, Unsteady Gait, Weakness ...Motor Strength: LLE, RLE Psychiatric: Yes: Other Labs: CBC, BMP 09/20/17 05:50 09/20/17 05:55 INR, PTT INR 0.96 (0.82-1.09) 09/17/17 06:25 Problem List - Problems (1) Brain metastasis Code(s): C79.31 - SECONDARY MALIGNANT NEOPLASM OF BRAIN (2) Headache Code(s): R51 - HEADACHE Qualifiers: Headache chronicity pattern: unspecified pattern Intractability: intractable (3) Intractable vomiting with nausea Code(s): R11.2 - NAUSEA WITH VOMITING, UNSPECIFIED Qualifiers: Vomiting type: unspecified Qualified Code(s): R11.2 - Nausea with vomiting , unspecified (4) SUSAN (acute kidney injury) Code(s): N17.9 - ACUTE KIDNEY FAILURE, UNSPECIFIED (5) Cancer, colon Code(s): C18.9 - MALIGNANT NEOPLASM OF COLON, UNSPECIFIED Qualifiers: Colon location: unspecified part of colon Qualified Code(s): C18.9 - Malignant neoplasm of colon, unspecified (6) Lung mass Code(s): R91.8 - OTHER NONSPECIFIC ABNORMAL FINDING OF LUNG FIELD (7) CVA (cerebral vascular accident) Code(s): I63.9 - CEREBRAL INFARCTION, UNSPECIFIED Assessment/Plan SWALLOW EVAL IVF PAIN CONTROL NEUROLOGY F/U CTS F/U CHECKING LABS PT EVAL OOB TO CHAIR DVT PROPHYLAXIS
[2017-09-20] MEDS: ACETAMINOPHEN 1000 MG/100 ML VIAL (NON FORMULARY) IVPB PRN (19:19)
[2017-09-20] MEDS: traZODone HCL 50 MG TABLET (FP) PO SCH ×2 (20:31→22:25)
[2017-09-20] MEDS ORDERED: PT OWN MED DRAWER 7, Y5N ONE (20:55)
[2017-09-20] MEDS: HEPARIN SOD,PORK IN 0.45% NACL 25,000 UNITS/500 ML INFUS.BAG IVPB SCH (20:56)
[2017-09-20] MEDS: CHLORHEXIDINE GLUCONATE 4% CLEANSER FOR DECOLONIZATION TP SCH (22:27)
[2017-09-20] MEDS: INSULIN DETEMIR 100 UNITS/ML MDV SQ SCH (22:28)
[2017-09-21] MEDS: dilTIAZem HCL 30 MG TABLET (FP) NGT SCH ×4 (00:04→19:00)
[2017-09-21] MEDS: ATORVASTATIN CA 20 MG TABLET (FP) PO SCH (00:04)
[2017-09-21] MEDS: CIPROFLOXACIN 0.3% EYE DROPS 5 ML BOTTLE OS SCH ×10 (00:45→22:45)
[2017-09-21] MEDS: DEXAMETHASONE SOD PHOSPHATE 4 MG/1 ML VIAL IVPUSH SCH ×3 (01:14→19:00)
[2017-09-21] MEDS: INSULIN SLIDING SCALE (NOVOLOG) 1 VIAL SQ SCH ×5 (01:56→22:00)
[2017-09-21] MEDS: METOPROLOL TARTRATE 5 MG/5 ML VIAL IVPUSH PRN ×3 (02:01→19:26)
[2017-09-21] MEDS ORDERED: METOPROLOL TARTRATE 5 MG/5 ML VIAL IVPUSH ONE (05:33)
[2017-09-21 06:23] LABS: HEMATOCRIT 29.4 % (32.4-45.2); HEMOGLOBIN 9.3 GM/dL (10.7-15.3); MCHC 31.7 g/dl (32.0-36.0); MEAN CELL VOLUME 82.1 fl (80-96); MEAN PLT VOLUME 8.8 fl (7.5-11.1); PLATELET COUNT 405 K/MM3 (134-434); RBC 3.58 M/mm3 (3.60-5.2); RDW 17.5 % (11.6-15.6); WHITE BLOOD COUNT 23.5 K/mm3 (4.0-10.0)
[2017-09-21 07:09] LABS: ALBUMIN 2.3 g/dl (3.4-5.0); ANION GAP 7 (8-16); BILIRUBIN,TOTAL 0.2 mg/dL (0.2-1.0); BLOOD UREA NITROGEN 75 mg/dL (7-18); CALCIUM 8.6 mg/dL (8.5-10.1); CHLORIDE 119 mmol/L (98-107); CO2 23 mmol/L (21-32); CREATININE 1.8 mg/dL (0.55-1.02); GLUCOSE,RANDOM 184 mg/dL (74-106); MAGNESIUM 2.8 mg/dL (1.8-2.4); PHOSPHOROUS 4.1 mg/dL (2.5-4.9); POTASSIUM 5.3 mmol/L (3.5-5.1); SGOT/AST 16 U/L (15-37); SGPT/ALT 26 U/L (12-78); SODIUM 149 mmol/L (136-145); TOT PROT 5.6 g/dl (6.4-8.2)
[2017-09-21 07:10] LABS: ALK PHOS 91 U/L (45-117)
[2017-09-21 09:28] LABS: PLATELET ESTIMATE NORMAL
--- NOTE | 2017-09-21 10:14 | PN ---
Progress Note (short form) - Note Progress Note: PULMONARY/CCM Pt seen and examined in the ICU. Mental status continues to improve. Moving left side more. Speech improving. Heart rates variable. Last Vital Signs Temp Pulse Resp BP Pulse Ox 98.5 F 119 H 19 159/72 97 09/21/17 02:00 09/21/17 08:00 09/21/17 08:00 09/21/17 08:00 09/20/17 23:37 Intake & Output 09/18/17 09/19/17 09/20/17 09/21/17 23:59 23:59 23:59 23:59 Intake Total 2303 1310 2154 776 Output Total 3100 1900 Balance -797 -590 2154 776 Weight 89 kg 90.1 kg 87.9 kg 90.5 kg Gen: less tachypneic at rest, stridorous Heart: irregular, tachycardic Lung: decreased breath sounds at the bases Abd: soft, nontender Ext: + edema CBC, BMP 09/21/17 06:00 09/21/17 06:00 Active Medications Acetaminophen (Ofirmev Injection -) 1,000 mg IVPB Q6H PRN PRN Reason: FEVER OR PAIN Last Admin: 09/20/17 19:19 Dose: 1,000 mg Albuterol/Ipratropium (Duoneb -) 1 amp NEB Q6H PRN PRN Reason: SHORT OF BREATH/WHEEZING Artificial Tears (Artificial Tears Ointment -) 1 applic OU BID [facility] Last Admin: 09/20/17 22:26 Dose: 1 applic Atorvastatin Calcium (Lipitor -) 20 mg PO [facility] Last Admin: 09/21/17 00:04 Dose: 20 mg Chlorhexidine Gluconate (Hibiclens For Decolonization -) 1 applic TP HS [facility] Last Admin: 09/20/17 22:27 Dose: 1 applic Chlorhexidine Gluconate (Peridex -) 15 ml MM BID [facility] Last Admin: 09/20/17 22:25 Dose: Not Given Ciprofloxacin (Ciloxan 0.3% Eye Drops --) 2 drop OS Q2H [facility] Last Admin: 09/21/17 08:40 Dose: 1 drop Clotrimazole (Mycelex China's -) 10 mg PO 5XD [facility] Dexamethasone Sodium Phosphate (Decadron Injection -) 4 mg IVPUSH Q8H-IV [facility] Last Admin: 09/21/17 01:14 Dose: 4 mg Diltiazem HCl (Cardizem -) 90 mg NGT Q6HPO [facility] Last Admin: 09/21/17 05:21 Dose: 90 mg Hydralazine HCl (Apresoline Injection -) 10 mg IVPUSH Q6H PRN PRN Reason: HYPERTENSION Last Admin: 09/13/17 21:33 Dose: 10 mg HEPARIN SOD,PORK IN 0.45% NACL (Heparin-1/2ns 25,000 Units/500) 25,000 units in 500 mls @ 20 mls/hr IVPB TITR [facility]; 1,000 UNITS/HR PRN Reason: Protocol Last Admin: 09/20/17 20:56 Dose: 800 units/hr, 16 mls/hr Insulin Aspart (Novolog Vial Sliding Scale -) 1 vial SQ Q4HPO [facility] PRN Reason: Protocol Last Admin: 09/21/17 06:43 Dose: 2 units Insulin Detemir (Levemir Vial) 15 units SQ [facility] Last Admin: 09/20/17 22:28 Dose: 15 units Metoprolol Tartrate (Lopressor Injection -) 5 mg IVPUSH Q4H PRN PRN Reason: HYPERTENSION Last Admin: 09/21/17 07:09 Dose: 5 mg Ondansetron HCl (Zofran Injection) 4 mg IVPUSH Q6H PRN PRN Reason: NAUSEA Pantoprazole Sodium (Protonix Iv) 40 mg IVPUSH DAILY [facility] Last Admin: 09/20/17 11:29 Dose: 40 mg Trazodone HCl (Desyrel -) 50 mg PO HS [facility] Last Admin: 09/20/17 22:25 Dose: Not Given A/P Multiple Acute Embolic CVA s/p Acute Hypoxic Respiratory Failure Pneumonia Atrial Fibrillation with RVR Metastatic Colon Ca to Lung Acute on Chronic Renal Failure HTN DM Hypercholesterolemia - continue antibiotics - titrate rate control - continue anticoagulation - aspiration precautions - increase free water - monitor urine output, creatinine - enteral feeds, swallow eval - rehab/PT - DVT/GI prophylaxis - continue ICU monitoring critical care time spent in reviewing chart, evaluating patient and formulating plan 35min
--- NOTE | 2017-09-21 10:48 | PN ---
Progress Note (short form) - Note Progress Note: RENAL Pt known to me from several office visits. She is now in ICU. HAd CVA and has colon mets to lung Awake and alert responds to questions Last Vital Signs Temp Pulse Resp BP Pulse Ox 97.7 F 119 H 21 163/67 95 09/21/17 10:00 09/21/17 10:00 09/21/17 10:00 09/21/17 10:00 09/21/17 09:30 heent has darin at right neck base left eye covered lungs bilat air entry cvs s1s2 irr abd soft ext trace edema neuro awake, able to speak with some effort Current Medications Generic Name Dose Route Start Last Admin Trade Name Freq PRN Reason Stop Dose Admin Acetaminophen 1,000 mg 09/15/17 11:50 09/20/17 19:19 Ofirmev Injection - IVPB 1,000 mg Q6H PRN Administration FEVER OR PAIN Albuterol/Ipratropium 1 amp 09/20/17 10:30 Duoneb - NEB Q6H PRN SHORT OF BREATH/WHEEZING Artificial Tears 1 applic 09/15/17 22:00 09/20/17 22:26 Artificial Tears Ointment - OU 1 applic BID [facility] Administration Atorvastatin Calcium 20 mg 09/11/17 22:00 09/21/17 00:04 Lipitor - PO 20 mg HS [facility] Administration Chlorhexidine Gluconate 1 applic 09/15/17 22:00 09/20/17 22:27 Hibiclens For Decolonization - TP 1 applic HS [facility] Administration Chlorhexidine Gluconate 15 ml 09/15/17 22:00 09/20/17 22:25 Peridex - MM Not Given BID [facility] Ciprofloxacin 2 drop 09/16/17 14:45 09/21/17 08:40 Ciloxan 0.3% Eye Drops -- OS 1 drop Q2H [facility] Administration Clotrimazole 10 mg 09/21/17 06:00 Mycelex China's - PO 5XD [facility] Dexamethasone Sodium Phosphate 4 mg 09/19/17 18:00 09/21/17 01:14 Decadron Injection - IVPUSH 4 mg Q8H-IV [facility] Administration Diltiazem HCl 90 mg 09/19/17 00:00 09/21/17 05:21 Cardizem - NGT 90 mg Q6HPO [facility] Administration Hydralazine HCl 10 mg 09/11/17 10:25 09/13/17 21:33 Apresoline Injection - IVPUSH 10 mg Q6H PRN Administration HYPERTENSION HEPARIN SOD,PORK IN 0.45% NACL 25,000 units in 500 mls @ 20 mls/hr 09/12/17 20 :00 09/20/17 20:56 Heparin-1/2ns 25,000 Units/500 IVPB 800 units/hr TITR [facility] 16 mls/hr Protocol Administration 1,000 UNITS/HR Insulin Aspart 1 vial 09/19/17 22:07 09/21/17 06:43 Novolog Vial Sliding Scale - SQ 2 units Q4HPO [facility] Administration Protocol Insulin Detemir 15 units 09/19/17 22:00 09/20/17 22:28 Levemir Vial SQ 15 units HS [facility] Administration Metoprolol Tartrate 5 mg 09/11/17 10:25 09/21/17 07:09 Lopressor Injection - IVPUSH 5 mg Q4H PRN Administration HYPERTENSION Ondansetron HCl 4 mg 09/11/17 02:02 Zofran Injection IVPUSH Q6H PRN NAUSEA Pantoprazole Sodium 40 mg 09/11/17 10:00 09/20/17 11:29 Protonix Iv IVPUSH 40 mg DAILY [facility] Administration Trazodone HCl 50 mg 09/20/17 22:00 09/20/17 22:25 Desyrel - PO Not Given HS [facility] CBC, BMP 09/21/17 06:00 09/21/17 06:00 Impression 1. 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 SUSAN 3. DM 4. htn 5. chol 6. chemo port malfunction- s/p removal 7. a-fib 8. lung mass 9. proteinuria 10. adenocarcinoma 11. CVA 12. acute resp failure 13. hyperkalemia and hypernatremia Plan - if able to reduce steroids would do so as this would help with BP - increase free water intake - hydralazine prn for HTN - avoid EDD inhibitor especially given hyperkalemia - stool softener MV
[2017-09-21] MEDS: MINERAL OIL/PETROLATUM,WHITE 3.5 GM TUBE OU SCH ×2 (11:50→23:07)
[2017-09-21] MEDS: PANTOPRAZOLE SODIUM 40 MG VIAL IVPUSH SCH (11:50)
[2017-09-21] MEDS: CHLORHEXIDINE GLUCONATE 0.12% 15ML CUP MM SCH ×2 (12:00→23:08)
[2017-09-21] MEDS: CLOTRIMAZOLE 10 MG TROCHE (FP) PO SCH ×3 (12:00→17:22)
--- NOTE | 2017-09-21 12:38 | PN ---
Progress Note, Physician Chief Complaint: AWAKE MORE ALERT ANSWERING QUESTIONS OF PLACE AND PERSON - Current Medication List Current Medications: Active Medications Acetaminophen (Ofirmev Injection -) 1,000 mg IVPB Q6H PRN PRN Reason: FEVER OR PAIN Last Admin: 09/20/17 19:19 Dose: 1,000 mg Albuterol/Ipratropium (Duoneb -) 1 amp NEB Q6H PRN PRN Reason: SHORT OF BREATH/WHEEZING Artificial Tears (Artificial Tears Ointment -) 1 applic OU BID [facility] Last Admin: 09/21/17 11:50 Dose: 1 applic Atorvastatin Calcium (Lipitor -) 20 mg PO HS [facility] Last Admin: 09/21/17 00:04 Dose: 20 mg Chlorhexidine Gluconate (Hibiclens For Decolonization -) 1 applic TP HS [facility] Last Admin: 09/20/17 22:27 Dose: 1 applic Chlorhexidine Gluconate (Peridex -) 15 ml MM BID [facility] Last Admin: 09/21/17 12:00 Dose: 15 ml Ciprofloxacin (Ciloxan 0.3% Eye Drops --) 2 drop OS Q2H [facility] Last Admin: 09/21/17 11:51 Dose: 1 drop Clotrimazole (Mycelex China's -) 10 mg PO 5XD [facility] Last Admin: 09/21/17 12:00 Dose: Not Given Dexamethasone Sodium Phosphate (Decadron Injection -) 4 mg IVPUSH Q8H-IV [facility] Last Admin: 09/21/17 11:59 Dose: 4 mg Diltiazem HCl (Cardizem -) 90 mg NGT Q6HPO [facility] Last Admin: 09/21/17 11:59 Dose: 90 mg Hydralazine HCl (Apresoline Injection -) 10 mg IVPUSH Q6H PRN PRN Reason: HYPERTENSION Last Admin: 09/13/17 21:33 Dose: 10 mg HEPARIN SOD,PORK IN 0.45% NACL (Heparin-1/2ns 25,000 Units/500) 25,000 units in 500 mls @ 20 mls/hr IVPB TITR [facility]; 1,000 UNITS/HR PRN Reason: Protocol Last Admin: 09/20/17 20:56 Dose: 800 units/hr, 16 mls/hr Insulin Aspart (Novolog Vial Sliding Scale -) 1 vial SQ Q4HPO [facility] PRN Reason: Protocol Last Admin: 09/21/17 11:50 Dose: 6 units Insulin Detemir (Levemir Vial) 15 units SQ HS [facility] Last Admin: 09/20/17 22:28 Dose: 15 units Metoprolol Tartrate (Lopressor Injection -) 5 mg IVPUSH Q4H PRN PRN Reason: HYPERTENSION Last Admin: 09/21/17 07:09 Dose: 5 mg Ondansetron HCl (Zofran Injection) 4 mg IVPUSH Q6H PRN PRN Reason: NAUSEA Pantoprazole Sodium (Protonix Iv) 40 mg IVPUSH DAILY [facility] Last Admin: 09/21/17 11:50 Dose: 40 mg Trazodone HCl (Desyrel -) 50 mg PO [facility] Last Admin: 09/20/17 22:25 Dose: Not Given - Objective Vital Signs: Vital Signs Temperature 97.7 F 09/21/17 10:00 Pulse Rate 142 H 09/21/17 12:00 Respiratory Rate 19 09/21/17 12:00 Blood Pressure 117/75 09/21/17 12:00 O2 Sat by Pulse Oximetry (%) 95 09/21/17 09:30 Constitutional: Yes: Moderate Distress Eyes: Yes: WNL HENT: Yes: WNL Neck: Yes: WNL Cardiovascular: Yes: WNL Respiratory: Yes: On Nasal O2, Poor Air Entry Gastrointestinal: Yes: WNL Genitourinary: Yes: Mcdonald Present, Incontinence Musculoskeletal: Yes: Muscle Weakness Extremities: Yes: WNL Edema: Yes Peripheral Pulses WNL: Yes Integumentary: Yes: Other Wound/Incision: Yes: Dressing Dry and Intact, Other Neurological: Yes: Loss of Sensation, Pre-Existing Deficit, Unsteady Gait, Weakness ...Motor Strength: LLE, RLE Psychiatric: Yes: Other Labs: CBC, BMP 09/21/17 06:00 09/21/17 06:00 INR, PTT INR 0.96 (0.82-1.09) 09/17/17 06:25 Problem List - Problems (1) Brain metastasis Code(s): C79.31 - SECONDARY MALIGNANT NEOPLASM OF BRAIN (2) Headache Code(s): R51 - HEADACHE Qualifiers: Headache chronicity pattern: unspecified pattern Intractability: intractable (3) Intractable vomiting with nausea Code(s): R11.2 - NAUSEA WITH VOMITING, UNSPECIFIED Qualifiers: Vomiting type: unspecified Qualified Code(s): R11.2 - Nausea with vomiting , unspecified (4) SUSAN (acute kidney injury) Code(s): N17.9 - ACUTE KIDNEY FAILURE, UNSPECIFIED (5) Cancer, colon Code(s): C18.9 - MALIGNANT NEOPLASM OF COLON, UNSPECIFIED Qualifiers: Colon location: unspecified part of colon Qualified Code(s): C18.9 - Malignant neoplasm of colon, unspecified (6) Lung mass Code(s): R91.8 - OTHER NONSPECIFIC ABNORMAL FINDING OF LUNG FIELD (7) CVA (cerebral vascular accident) Code(s): I63.9 - CEREBRAL INFARCTION, UNSPECIFIED Assessment/Plan AGGRESSIVE PHYSICAL THERAPY AC NEURO/CARDIO F/U TACHYCARDIA ON MONITOR OOB TO CHAIR MONITOR LABS TRANSFER MEDSX SWALLOW EVAL
--- NOTE | 2017-09-21 17:59 | HOSP ---
Subjective - Review of Symptoms Events since last encounter: Received call patient appears less responsive than earlier in the day. Satting 92% on NC. Put on NRB. Stat ABG. ABG: Arrived at bedside, Physical Examination Vital Signs: Vital Signs Temperature 98.0 F 09/21/17 14:00 Pulse Rate 116 H 09/21/17 14:00 Respiratory Rate 15 09/21/17 14:00 Blood Pressure 171/71 09/21/17 14:00 O2 Sat by Pulse Oximetry (%) 95 09/21/17 09:30 Labs: CBC, BMP 09/21/17 06:00 09/21/17 06:00
[2017-09-21 18:23] LABS: ARTERIAL BLD GAS O2 SATURATION 99.2 % (90-98.9); ARTERIAL BLOOD GAS BASE EXCESS -6.4 meq/l (-2-2); ARTERIAL BLOOD GAS PCO2 49.5 mmHg (35-45)
[2017-09-21 18:26] LABS: ALLENS TEST POSITIVE
[2017-09-21 18:29] LABS: ARTERIAL BLOOD GAS pH 7.23 (7.35-7.45)
[2017-09-21] MEDS ORDERED: LORazepam 2 MG/ML SDV VIAL IVPUSH ONE (21:24)
[2017-09-21 21:43] LABS: HEMATOCRIT 25.3 % (32.4-45.2); HEMOGLOBIN 7.6 GM/dL (10.7-15.3); MEAN CELL VOLUME 83.4 fl (80-96); MEAN PLT VOLUME 8.5 fl (7.5-11.1); PLATELET COUNT 363 K/MM3 (134-434); RBC 3.04 M/mm3 (3.60-5.2); RDW 17.3 % (11.6-15.6); WHITE BLOOD COUNT 23.9 K/mm3 (4.0-10.0)
[2017-09-21] MEDS: INSULIN DETEMIR 100 UNITS/ML MDV SQ SCH (21:53)
[2017-09-21 22:25] LABS: ANISOCYTOSIS 1+; MACROCYTOSIS 0; OVALOCYTE 0; PLATELET ESTIMATE NORMAL; TARGET CELLS 1+
[2017-09-21] MEDS ORDERED: PANTOPRAZOLE SODIUM 80 MG in SODIUM CHLORIDE 100 ML IVPB SCH (22:45)
[2017-09-21] MEDS ORDERED: LORazepam 2 MG/ML SDV VIAL IVPUSH PRN (22:45)
[2017-09-21] MEDS: CHLORHEXIDINE GLUCONATE 4% CLEANSER FOR DECOLONIZATION TP SCH (23:07)
[2017-09-21] MEDS ORDERED: PT OWN MED DRAWER 7, Y5N ONE (23:36)
[2017-09-21] MEDS: HEPARIN SOD,PORK IN 0.45% NACL 25,000 UNITS/500 ML INFUS.BAG IVPB SCH (23:41)
[2017-09-21] MEDS: OCTREOTIDE ACETATE 1,200 MCG in DEXTROSE 5%-WATER - 488 ML IVPB SCH (23:42)
[2017-09-22] MEDS: traZODone HCL 50 MG TABLET (FP) PO SCH ×2 (00:21→22:08)
[2017-09-22] MEDS: ATORVASTATIN CA 20 MG TABLET (FP) PO SCH ×2 (00:22→22:08)
[2017-09-22] MEDS: dilTIAZem HCL 30 MG TABLET (FP) NGT SCH ×2 (00:22→06:52)
[2017-09-22] MEDS: CIPROFLOXACIN 0.3% EYE DROPS 5 ML BOTTLE OS SCH ×12 (00:45→22:09)
[2017-09-22] MEDS: INSULIN SLIDING SCALE (NOVOLOG) 1 VIAL SQ SCH ×7 (01:20→23:31)
[2017-09-22] MEDS: METOPROLOL TARTRATE 5 MG/5 ML VIAL IVPUSH PRN ×3 (01:42→08:55)
[2017-09-22] MEDS: DEXAMETHASONE SOD PHOSPHATE 4 MG/1 ML VIAL IVPUSH SCH ×3 (02:00→17:30)
[2017-09-22] MEDS: CLOTRIMAZOLE 10 MG TROCHE (FP) PO SCH ×5 (06:50→23:15)
[2017-09-22] MEDS ORDERED: METOPROLOL TARTRATE 5 MG/5 ML VIAL IVPUSH ONE ×3 (07:00→11:44)
[2017-09-22 07:27] LABS: HEMATOCRIT 25.5 % (32.4-45.2); HEMOGLOBIN 7.7 GM/dL (10.7-15.3); MCH 25.3 pg (25.7-33.7); MCHC 30.1 g/dl (32.0-36.0); MEAN CELL VOLUME 84.2 fl (80-96); PLATELET COUNT 299 K/MM3 (134-434); RBC 3.03 M/mm3 (3.60-5.2); RDW 17.7 % (11.6-15.6); WHITE BLOOD COUNT 28.8 K/mm3 (4.0-10.0)
--- NOTE | 2017-09-22 07:27 | PN ---
Physical Exam: SUBJECTIVE: Patient seen and examined. Received ativan 0.5mg overnight for agitation. Was placed on NRB also . Removed NGT severally. OBJECTIVE: Vital Signs Period Temp Pulse Resp BP Sys/Mcdaniel Pulse Ox Last 24 Hr 97.7 F-98.6 F 102-144 12-28 104-172/32-104 95-100 Intake & Output 09/21/17 09/22/17 09/22/17 23:59 11:59 23:59 Intake Total 407.6 Output Total 500 900 Balance -92.4 -900 Weight 88 kg Intake: IV 407.6 HEPARIN-1/2NS 25,000 192 UNITS/500 25,000 units In 500 ml @ 1,000 UNITS/HR 20 mls/hr IVPB TITR [facility] Rx#:[id number] PROTONIX GTT 70 SANDOSTATIN GTT 145.6 Output: Gastric Drainage 500 Urine 900 Void 900 Other: Voiding Method Diaper # Unmeasured Voids Void 2 2 Bowel Movement Yes Weight Measurement Method Built in [facility] GENERAL: The patient is awake, agitated, with intermittent stridor-like sounds on NRB. HEAD: Healing L eye bruise. EYES: Bilaterally reactive to light. Gauze patch over L eye, improving hyphema, L eye ENT: NRB face mask, with NGT inplace NECK: supple. LUNGS: Intermittent transmitted upper airway sounds. Lungs clear bilaterally. HEART: Tachycardic, S1, S2 ABDOMEN: Soft, nontender, nondistended, normoactive bowel sounds, EXTREMITIES: 2+ pulses, warm, well-perfused, no edema. NEUROLOGICAL: Agitated, obeys commands. Good hand wool presser R> L (improved on L). Moves all 4 limbs. PSYCH: Agitated SKIN: R upper arm bruise Lines: LUE, RUE peripheral lines, CBC, BMP 09/22/17 05:20 09/22/17 14:35 Laboratory Results - last 24 hr 09/21/17 09/21/17 09/21/17 06:00 11:43 15:11 WBC RBC Hgb Hct MCV MCH MCHC RDW Plt Count MPV Neutrophils % Neutrophils % (Manual) 89.8 H Band Neutrophils % 2.0 Lymphocytes % Lymphocytes % (Manual) 2.1 L Monocytes % (Manual) 4 Eosinophils % (Manual) 0.0 Basophils % (Manual) 0.0 Myelocytes % (Man) 1 D Metamyelocytes 1 D Hypochromia Platelet Estimate Normal Polychromasia Poikilocytosis Basophilic Stippling Anisocytosis Microcytosis Macrocytosis Target Cells Ovalocytes Fragmented RBCs 1+ Puncture Site ABG pH ABG pCO2 at Pt Temp ABG pO2 at Pt Temp ABG HCO3 ABG O2 Sat (Measured) ABG O2 Content ABG Base Excess Addy Test O2 Delivery Device Oxygen Flow Rate PEEP POC Glucometer 261.81961 310.82569 09/21/17 09/21/17 09/21/17 18:15 18:43 21:15 WBC 23.9 H RBC 3.04 L Hgb 7.6 L D Hct 25.3 L MCV 83.4 MCH 25.0 L MCHC 30.0 L RDW 17.3 H Plt Count 363 MPV 8.5 Neutrophils % No Result Required. Neutrophils % (Manual) 89.1 H Band Neutrophils % 4.0 Lymphocytes % No Result Required. Lymphocytes % (Manual) 2.0 L Monocytes % (Manual) 5 Eosinophils % (Manual) 0.0 Basophils % (Manual) 0.0 Myelocytes % (Man) 0 D Metamyelocytes 0 D Hypochromia 1+ Platelet Estimate Normal Polychromasia 1+ Poikilocytosis 1+ Basophilic Stippling 0 Anisocytosis 1+ Microcytosis 2+ Macrocytosis 0 Target Cells 1+ Ovalocytes 0 Fragmented RBCs Puncture Site Right radial ABG pH 7.23 L* ABG pCO2 at Pt Temp 49.5 H D ABG pO2 at Pt Temp 377.0 H* ABG HCO3 20.2 L ABG O2 Sat (Measured) 99.2 H ABG O2 Content 12.0 L ABG Base Excess -6.4 L Addy Test Positive O2 Delivery Device Nonrebreather Oxygen Flow Rate F1o2 PEEP 0.0 POC Glucometer [id number] 09/21/17 09/22/17 21:38 01:18 WBC RBC Hgb Hct MCV MCH MCHC RDW Plt Count MPV Neutrophils % Neutrophils % (Manual) Band Neutrophils % Lymphocytes % Lymphocytes % (Manual) Monocytes % (Manual) Eosinophils % (Manual) Basophils % (Manual) Myelocytes % (Man) Metamyelocytes Hypochromia Platelet Estimate Polychromasia Poikilocytosis Basophilic Stippling Anisocytosis Microcytosis Macrocytosis Target Cells Ovalocytes Fragmented RBCs Puncture Site ABG pH ABG pCO2 at Pt Temp ABG pO2 at Pt Temp ABG HCO3 ABG O2 Sat (Measured) ABG O2 Content ABG Base Excess Addy Test O2 Delivery Device Oxygen Flow Rate PEEP POC Glucometer 161.10245 129.10787 Active Medications Generic Name Dose Route Start Last Admin Trade Name Freq PRN Reason Stop Dose Admin Acetaminophen 1,000 mg 09/15/17 11:50 09/20/17 19:19 Ofirmev Injection - IVPB 1,000 mg Q6H PRN Administration FEVER OR PAIN Albuterol/Ipratropium 1 amp 09/20/17 10:30 Duoneb - NEB Q6H PRN SHORT OF BREATH/WHEEZING Artificial Tears 1 applic 09/15/17 22:00 09/21/17 23:07 Artificial Tears Ointment - OU 1 applic BID [facility] Administration Atorvastatin Calcium 20 mg 09/11/17 22:00 09/22/17 00:22 Lipitor - PO Not Given HS [facility] Chlorhexidine Gluconate 1 applic 09/15/17 22:00 09/21/17 23:07 Hibiclens For Decolonization - TP 1 applic HS [facility] Administration Chlorhexidine Gluconate 15 ml 09/15/17 22:00 09/21/17 23:08 Peridex - MM Not Given BID [facility] Ciprofloxacin 2 drop 09/16/17 14:45 09/22/17 06:52 Ciloxan 0.3% Eye Drops -- OS 2 drop Q2H [facility] Administration Clotrimazole 10 mg 09/21/17 06:00 09/22/17 06:50 Mycelex China's - PO Not Given 5XD [facility] Dexamethasone Sodium Phosphate 4 mg 09/19/17 18:00 09/22/17 02:00 Decadron Injection - IVPUSH 4 mg Q8H-IV [facility] Administration Diltiazem HCl 90 mg 09/19/17 00:00 09/22/17 06:52 Cardizem - NGT Not Given Q6HPO [facility] Hydralazine HCl 10 mg 09/11/17 10:25 09/13/17 21:33 Apresoline Injection - IVPUSH 10 mg Q6H PRN Administration HYPERTENSION HEPARIN SOD,PORK IN 0.45% NACL 25,000 units in 500 mls @ 20 mls/hr 09/12/17 20 :00 09/21/17 23:41 Heparin-1/2ns 25,000 Units/500 IVPB 800 units/hr TITR [facility] 16 mls/hr Protocol Administration 1,000 UNITS/HR Pantoprazole Sodium 80 mg/ 100 mls @ 10 mls/hr 09/21/17 22:45 09/21/17 23:42 Sodium Chloride IVPB 10 mls/hr Q10H [facility] Administration 8 MG/HR Octreotide Acetate 1,200 mcg/ 500 mls @ 20.83 mls/hr 09/21/17 22:45 09/21/17 23:42 Dextrose IVPB 20.83 mls/hr ASDIR [facility] Administration Protocol 50 MCG/HR Insulin Aspart 1 vial 09/19/17 22:07 09/22/17 01:20 Novolog Vial Sliding Scale - SQ Not Given Q4HPO [facility] Protocol Insulin Detemir 15 units 09/19/17 22:00 09/21/17 21:53 Levemir Vial SQ Not Given HS [facility] Lorazepam 0.5 mg 09/21/17 22:45 Ativan Injection - IVPUSH 09/22/17 22:44 Q6H PRN ANXIETY Metoprolol Tartrate 5 mg 09/11/17 10:25 09/22/17 05:11 Lopressor Injection - IVPUSH 5 mg Q4H PRN Administration HYPERTENSION Ondansetron HCl 4 mg 09/11/17 02:02 Zofran Injection IVPUSH Q6H PRN NAUSEA Trazodone HCl 50 mg 09/20/17 22:00 09/22/17 00:21 Desyrel - PO Not Given HS [facility] ASSESSMENT/PLAN: 62 yo F with PMHx of HTN, paroxysmal atrial fibrillation on apixaban, DM, HLD, CKD, GERD and colon CA s/p colectomy 2011 with mets to lung admitted to ICU for AMS now extubated on NRB Neuro/opth:. Extubated, awake, talking and obeys commands, agitated R/O critical illness polyneuropathy AMS 2/2 to cerebral edema from multiple acute infarcts with background Afib L eye hyphema- cipro ointment OS Q2H Stop- ativan Haldol PRN Physical therapy- Consult- Dr Remy D/W daughter about re-intubation- she asked to hold off Respiratory: Acute hypoxic resp failure-extubated on , n now on NRB Renal: SUSAN R/O CKD Hyperkalemia- 6.5- EKG stat- atrial flutter Ca gluconate stat Kayexelate 50% dextrose bolus - 10U insulin Na HCo3 1/2 Normal saline @75/hr Albuterol [id number]% stat Repeat BMP- 1400 hypernatremia- Hyperphosphatemia Hypermagnesemia CMP,Mg, Phosphorus Hold Tube feeds Per Dr Gerard bateman insert Metabolic/Endocrine/GI/Lines: DM- with hyperglycemia bgm Tube feeds held- in light of a likely GI bleed (via NGT) Glucerna 1.5 @ 30cc/hr, increase as tolerated to Target volume: 1150ml volume Hypernatremic Lines: NGT, RUE peripheral line, reinsert bateman Cardio: Htn HLD Still tachycardic- Lopressor as needed Continue heparin drip for now to transition probably to eliquis when stable- per cardiology iv metoprolol prn -5mg Change cardizem 90mg Q6H NGT-to iv cardizem gtt Hemonc: Colorectal cancer with lung mets ID: Acute sepsis could be 2/2 to PNA with L lung infiltrate CXR Received zosyn x 5 days Monitor Prophylaxis: on heparin gtt protonix 40mg ivpush bid Heel pads Dispo: Monitor in ICU Visit type - Emergency Visit Emergency Visit: Yes ED Registration Date: 09/10/17 Care time: The patient presented to the Emergency Department on the above date and was hospitalized for further evaluation of their emergent condition. - New Patient This patient is new to me today: No - Critical Care Critical Care patient: Yes Total Critical Care Time (in minutes): 45 Critical Care Statement: The care of this patient involved high complexity decision making to prevent further life threatening deterioration of the patient 's condition and/or to evaluate & treat vital organ system(s) failure or risk of failure.
[2017-09-22] MEDS: DILTIAZEM INJECTION 125 MG in DEXTROSE 5%-WATER - 100 ML IVPB SCH ×2 (10:34→21:18)
[2017-09-22 10:36] LABS: PLATELET ESTIMATE INCREASED
[2017-09-22] MEDS: PANTOPRAZOLE SODIUM 160 MG in DEXTROSE 5%-WATER - 290 ML IVPB SCH ×2 (10:37→17:25)
[2017-09-22 10:39] LABS: ARTERIAL BLD GAS O2 SATURATION 99.2 % (90-98.9); ARTERIAL BLOOD GAS BASE EXCESS -3.7 meq/l (-2-2); ARTERIAL BLOOD GAS PCO2 45.8 mmHg (35-45)
[2017-09-22 10:40] LABS: ALBUMIN 2.1 g/dl (3.4-5.0); ALK PHOS 78 U/L (45-117); BILIRUBIN,TOTAL 0.3 mg/dL (0.2-1.0); BLOOD UREA NITROGEN 95 mg/dL (7-18); CALCIUM 8.1 mg/dL (8.5-10.1); CO2 23 mmol/L (21-32); CREATININE 2.3 mg/dL (0.55-1.02); GLUCOSE,RANDOM 82 mg/dL (74-106); PHOSPHOROUS 7.2 mg/dL (2.5-4.9); SGOT/AST 20 U/L (15-37); SGPT/ALT 30 U/L (12-78); TOT PROT 4.8 g/dl (6.4-8.2)
[2017-09-22 10:41] LABS: ALLENS TEST POSITIVE
[2017-09-22] MEDS: MINERAL OIL/PETROLATUM,WHITE 3.5 GM TUBE OU SCH ×2 (10:41→22:08)
[2017-09-22 11:02] LABS: CHLORIDE 120 mmol/L (98-107); SODIUM 154 mmol/L (136-145)
[2017-09-22 11:25] LABS: ANION GAP 11 (8-16)
[2017-09-22 11:27] LABS: POTASSIUM 6.5 mmol/L (3.5-5.1)
[2017-09-22] MEDS ORDERED: INSULIN REGULAR HUMAN 100 UNITS/ML *VIAL IVPUSH ONE (11:32)
[2017-09-22] MEDS ORDERED: DEXTROSE 50%-WATER - 25 GM/50 ML VIAL IVPUSH ONE (11:32)
[2017-09-22] MEDS ORDERED: SODIUM BICARBONATE 4.2% 5 MEQ/10 ML DISP.SYRIN IVPUSH ONE (11:36)
[2017-09-22] MEDS ORDERED: CALCIUM GLUCONATE 10% - 1,000 MG/10 ML VIAL IVPUSH ONE (11:39)
[2017-09-22] MEDS ORDERED: SODIUM POLYSTYRENE SULFONATE 15 GM/60 ML BOTTLE PO ONE (11:40)
[2017-09-22] MEDS ORDERED: DEXTROSE 50%-WATER 25 GM/50 ML DISP.SYRIN ONE (11:55)
[2017-09-22] MEDS ORDERED: ALBUTEROL SO4 0.083% IH SOL 2.5 MG/3 ML VIAL.NEB. NEB PRN (11:57)
[2017-09-22] MEDS ORDERED: ALBUTEROL SO4 0.5 % INH SOLN 2.5 MG/0.5 ML VIAL.NEB. NEB ONE (12:06)
[2017-09-22] MEDS ORDERED: dilTIAZem HCL 30 MG TABLET (FP) NGT SCH (12:30)
--- NOTE | 2017-09-22 12:31 | PN ---
Teaching Attending Note Name of Resident: Lisa Mott ATTENDING PHYSICIAN STATEMENT I saw and evaluated the patient. I reviewed the resident's note and discussed the case with the resident. I agree with the resident's findings and plan as documented. SUBJECTIVE: Pt seen and examined in the ICU. More lethargic this AM, now on BiPAP with some improvement. Heart rates rapid this AM. OBJECTIVE: Last Vital Signs Temp Pulse Resp BP Pulse Ox 97.8 F 141 H 16 131/89 100 09/22/17 05:55 09/22/17 11:51 09/22/17 05:55 09/22/17 11:51 09/22/17 02:43 Intake & Output 09/19/17 09/20/17 09/21/17 09/22/17 23:59 23:59 23:59 23:59 Intake Total 1310 2154 776 407.6 Output Total 1900 500 Balance -590 2154 776 -92.4 Weight 90.1 kg 87.9 kg 90.5 kg 88 kg Gen: lethargic but arousable on BiPAP Heart: tachycardic, irregular Lung: decreased breath sounds at the bases Abd: soft, nontender Ext: + edema CBC, BMP 09/22/17 05:20 09/22/17 05:20 Active Medications Acetaminophen (Ofirmev Injection -) 1,000 mg IVPB Q6H PRN PRN Reason: FEVER OR PAIN Last Admin: 09/20/17 19:19 Dose: 1,000 mg Albuterol Sulfate (Ventolin 0.5% -) 4 amp NEB ONCE ONE Stop: 09/22/17 12:07 Albuterol/Ipratropium (Duoneb -) 1 amp NEB Q6H PRN PRN Reason: SHORT OF BREATH/WHEEZING Artificial Tears (Artificial Tears Ointment -) 1 applic OU BID [facility] Last Admin: 09/22/17 10:41 Dose: 1 applic Atorvastatin Calcium (Lipitor -) 20 mg PO [facility] Last Admin: 09/22/17 00:22 Dose: Not Given Calcium Gluconate (Calcium Gluconate 10% -) 1,000 mg IVPUSH ONCE ONE Stop: 09/22/17 11:40 Last Admin: 09/22/17 12:06 Dose: 1,000 mg Chlorhexidine Gluconate (Hibiclens For Decolonization -) 1 applic TP [facility] Last Admin: 09/21/17 23:07 Dose: 1 applic Chlorhexidine Gluconate (Peridex -) 15 ml MM BID [facility] Last Admin: 09/21/17 23:08 Dose: Not Given Ciprofloxacin (Ciloxan 0.3% Eye Drops --) 2 drop OS Q2H [facility] Last Admin: 09/22/17 10:45 Dose: Not Given Clotrimazole (Mycelex China's -) 10 mg PO 5XD [facility] Last Admin: 09/22/17 10:37 Dose: Not Given Dexamethasone Sodium Phosphate (Decadron Injection -) 4 mg IVPUSH Q8H-IV [facility] Last Admin: 09/22/17 10:38 Dose: 4 mg Dextrose (D50w (Vial) -) 25 gm IVPUSH NOW ONE Stop: 09/22/17 11:33 Last Admin: 09/22/17 12:06 Dose: 25 gm Diltiazem HCl (Cardizem -) 90 mg NGT Q6HPO [facility] Haloperidol (Haldol Injection (Fast Acting) -) 5 mg IM Q4H PRN PRN Reason: AGITATION Hydralazine HCl (Apresoline Injection -) 10 mg IVPUSH Q6H PRN PRN Reason: HYPERTENSION Last Admin: 09/13/17 21:33 Dose: 10 mg HEPARIN SOD,PORK IN 0.45% NACL (Heparin-1/2ns 25,000 Units/500) 25,000 units in 500 mls @ 20 mls/hr IVPB TITR [facility]; 1,000 UNITS/HR PRN Reason: Protocol Last Titration: 09/22/17 08:49 Dose: 700 units/hr, 14 mls/hr Octreotide Acetate 1,200 mcg/ (Dextrose) 500 mls @ 20.83 mls/hr IVPB ASDIR [facility] ; 50 MCG/HR PRN Reason: Protocol Last Admin: 09/21/17 23:42 Dose: 20.83 mls/hr Diltiazem HCl 125 mg/ Dextrose 125 mls @ 5 mls/hr IVPB TITR [facility]; 5 MG/HR PRN Reason: Protocol Last Admin: 09/22/17 10:34 Dose: 5 mg/hr, 5 mls/hr Pantoprazole Sodium 160 mg/ (Dextrose) 290 mls @ 14.5 mls/hr IVPB Q20H [facility] Last Admin: 09/22/17 10:37 Dose: Not Given Sodium Chloride (1/2 Normal Saline) 1,000 mls @ 75 mls/hr IV ASDIR [facility] Insulin Aspart (Novolog Vial Sliding Scale -) 1 vial SQ Q4HPO [facility] PRN Reason: Protocol Last Admin: 09/22/17 11:31 Dose: Not Given Insulin Detemir (Levemir Vial) 15 units SQ [facility] Last Admin: 09/21/17 21:53 Dose: Not Given Insulin Human Regular (Novolin R Vial *For Ivpush Or Iv Drip Only*) 10 units IVPUSH ONCE ONE Stop: 09/22/17 11:33 Last Admin: 09/22/17 12:05 Dose: 10 units Metoprolol Tartrate (Lopressor Injection -) 5 mg IVPUSH Q4H PRN PRN Reason: HYPERTENSION Last Admin: 09/22/17 08:55 Dose: 5 mg Metoprolol Tartrate (Lopressor Injection -) 5 mg IVPUSH ONCE ONE Stop: 09/22/17 11:45 Last Admin: 09/22/17 11:51 Dose: 5 mg Ondansetron HCl (Zofran Injection) 4 mg IVPUSH Q6H PRN PRN Reason: NAUSEA Sodium Bicarbonate (Sodium Bicarbonate 4.2% -) 4.2 meq IVPUSH ONCE ONE Stop: 09/22/17 11:37 Sodium Polystyrene Sulfonate (Kayexalate -) 30 gm PO ONCE ONE Stop: 09/22/17 11:41 Trazodone HCl (Desyrel -) 50 mg PO [facility] Last Admin: 09/22/17 00:21 Dose: Not Given ASSESSMENT AND PLAN: Multiple Acute Embolic CVA s/p Acute Hypoxic Respiratory Failure Pneumonia Atrial Fibrillation with RVR Metastatic Colon Ca to Lung Acute on Chronic Renal Failure Hyperkalemia HTN DM Hypercholesterolemia - cocktail for hyperkalemia - continue antibiotics - titrate rate control - continue anticoagulation - aspiration precautions - increase free water - monitor urine output, creatinine - place bateman - enteral feeds if able to come off BiPAP - monitor ABG - low threshold for re-intubation - rehab/PT - DVT/GI prophylaxis - continue ICU monitoring critical care time spent in reviewing chart, evaluating patient and formulating plan 35 min
[2017-09-22] MEDS: SODIUM CHLORIDE 0.45% 1,000 ML IV SCH (12:48)
[2017-09-22] MEDS ORDERED: SODIUM BICARBONATE 8.4% - 50 ML ONE (12:52)
[2017-09-22] MEDS ORDERED: SODIUM BICARBONATE 8.4% 50 MEQ/50 ML VIAL IV ONE (12:55)
[2017-09-22] MEDS: HALOPERIDOL LACTATE 5 MG/ML IM PRN ×2 (13:08→21:14)
--- NOTE | 2017-09-22 14:16 | PN ---
Progress Note, Physician History of Present Illness: Pt seen and examined at bedside. She remains in the ICU. Pt appears agitated. - Current Medication List Current Medications: Active Medications Acetaminophen (Ofirmev Injection -) 1,000 mg IVPB Q6H PRN PRN Reason: FEVER OR PAIN Last Admin: 09/20/17 19:19 Dose: 1,000 mg Albuterol/Ipratropium (Duoneb -) 1 amp NEB Q6H PRN PRN Reason: SHORT OF BREATH/WHEEZING Artificial Tears (Artificial Tears Ointment -) 1 applic OU BID [facility] Last Admin: 09/22/17 10:41 Dose: 1 applic Atorvastatin Calcium (Lipitor -) 20 mg PO HS [facility] Last Admin: 09/22/17 00:22 Dose: Not Given Chlorhexidine Gluconate (Hibiclens For Decolonization -) 1 applic TP HS [facility] Last Admin: 09/21/17 23:07 Dose: 1 applic Chlorhexidine Gluconate (Peridex -) 15 ml MM BID [facility] Last Admin: 09/21/17 23:08 Dose: Not Given Ciprofloxacin (Ciloxan 0.3% Eye Drops --) 2 drop OS Q2H [facility] Last Admin: 09/22/17 13:58 Dose: 2 drop Clotrimazole (Mycelex China's -) 10 mg PO 5XD [facility] Last Admin: 09/22/17 10:37 Dose: Not Given Dexamethasone Sodium Phosphate (Decadron Injection -) 4 mg IVPUSH Q8H-IV [facility] Last Admin: 09/22/17 10:38 Dose: 4 mg Diltiazem HCl (Cardizem -) 90 mg NGT Q6HPO [facility] Haloperidol (Haldol Injection (Fast Acting) -) 5 mg IM Q4H PRN PRN Reason: AGITATION Last Admin: 09/22/17 13:08 Dose: 5 mg Hydralazine HCl (Apresoline Injection -) 10 mg IVPUSH Q6H PRN PRN Reason: HYPERTENSION Last Admin: 09/13/17 21:33 Dose: 10 mg HEPARIN SOD,PORK IN 0.45% NACL (Heparin-1/2ns 25,000 Units/500) 25,000 units in 500 mls @ 20 mls/hr IVPB TITR [facility]; 1,000 UNITS/HR PRN Reason: Protocol Last Titration: 09/22/17 08:49 Dose: 700 units/hr, 14 mls/hr Octreotide Acetate 1,200 mcg/ (Dextrose) 500 mls @ 20.83 mls/hr IVPB ASDIR [facility] ; 50 MCG/HR PRN Reason: Protocol Last Admin: 09/21/17 23:42 Dose: 20.83 mls/hr Diltiazem HCl 125 mg/ Dextrose 125 mls @ 5 mls/hr IVPB TITR [facility]; 5 MG/HR PRN Reason: Protocol Last Admin: 09/22/17 10:34 Dose: 5 mg/hr, 5 mls/hr Pantoprazole Sodium 160 mg/ (Dextrose) 290 mls @ 14.5 mls/hr IVPB Q20H [facility] Last Admin: 09/22/17 10:37 Dose: Not Given Sodium Chloride (1/2 Normal Saline) 1,000 mls @ 75 mls/hr IV ASDIR [facility] Last Admin: 09/22/17 12:48 Dose: 75 mls/hr Insulin Aspart (Novolog Vial Sliding Scale -) 1 vial SQ Q4HPO [facility] PRN Reason: Protocol Last Admin: 09/22/17 11:31 Dose: Not Given Insulin Detemir (Levemir Vial) 15 units SQ [facility] Last Admin: 09/21/17 21:53 Dose: Not Given Metoprolol Tartrate (Lopressor Injection -) 5 mg IVPUSH Q4H PRN PRN Reason: HYPERTENSION Last Admin: 09/22/17 08:55 Dose: 5 mg Ondansetron HCl (Zofran Injection) 4 mg IVPUSH Q6H PRN PRN Reason: NAUSEA Trazodone HCl (Desyrel -) 50 mg PO [facility] Last Admin: 09/22/17 00:21 Dose: Not Given - Objective Vital Signs: Vital Signs Temperature 97.8 F 09/22/17 05:55 Pulse Rate 141 H 09/22/17 11:51 Respiratory Rate 16 09/22/17 05:55 Blood Pressure 131/89 09/22/17 11:51 O2 Sat by Pulse Oximetry (%) 100 09/22/17 02:43 Constitutional: Yes: Anxious Eyes: Yes: Conjunctiva Clear HENT: Yes: Atraumatic Cardiovascular: Yes: S1, S2 Respiratory: Yes: On Venti-Mask Gastrointestinal: Yes: Soft Genitourinary: Yes: Incontinence Musculoskeletal: Yes: Muscle Weakness Edema: Yes Neurological: Yes: Lethargy Labs: CBC, BMP 09/22/17 05:20 09/22/17 05:20 INR, PTT INR 0.96 (0.82-1.09) 09/17/17 06:25 - ....Imaging Chest X-ray: Report Reviewed Problem List - Problems (1) Brain metastasis Code(s): C79.31 - SECONDARY MALIGNANT NEOPLASM OF BRAIN (2) Headache Code(s): R51 - HEADACHE Qualifiers: Headache chronicity pattern: unspecified pattern Intractability: intractable (3) Metastatic colorectal cancer Code(s): C78.5 - SECONDARY MALIGNANT NEOPLASM OF LARGE INTESTINE AND RECTUM (4) SUSAN (acute kidney injury) Code(s): N17.9 - ACUTE KIDNEY FAILURE, UNSPECIFIED (5) Atrial fibrillation Code(s): I48.91 - UNSPECIFIED ATRIAL FIBRILLATION (6) Cancer, colon Code(s): C18.9 - MALIGNANT NEOPLASM OF COLON, UNSPECIFIED Qualifiers: Colon location: unspecified part of colon Qualified Code(s): C18.9 - Malignant neoplasm of colon, unspecified (7) Lung mass Code(s): R91.8 - OTHER NONSPECIFIC ABNORMAL FINDING OF LUNG FIELD Assessment/Plan Current Medications Generic Name Dose Route Start Last Admin Trade Name Freq PRN Reason Stop Dose Admin Acetaminophen 1,000 mg 09/15/17 11:50 09/20/17 19:19 Ofirmev Injection - IVPB 1,000 mg Q6H PRN Administration FEVER OR PAIN Albuterol/Ipratropium 1 amp 09/20/17 10:30 Duoneb - NEB Q6H PRN SHORT OF BREATH/WHEEZING Artificial Tears 1 applic 09/15/17 22:00 09/22/17 10:41 Artificial Tears Ointment - OU 1 applic BID [facility] Administration Atorvastatin Calcium 20 mg 09/11/17 22:00 09/22/17 00:22 Lipitor - PO Not Given HS [facility] Chlorhexidine Gluconate 1 applic 09/15/17 22:00 09/21/17 23:07 Hibiclens For Decolonization - TP 1 applic HS [facility] Administration Chlorhexidine Gluconate 15 ml 09/15/17 22:00 09/21/17 23:08 Peridex - MM Not Given BID [facility] Ciprofloxacin 2 drop 09/16/17 14:45 09/22/17 13:58 Ciloxan 0.3% Eye Drops -- OS 2 drop Q2H [facility] Administration Clotrimazole 10 mg 09/21/17 06:00 09/22/17 10:37 Mycelex China's - PO Not Given 5XD [facility] Dexamethasone Sodium Phosphate 4 mg 09/19/17 18:00 09/22/17 10:38 Decadron Injection - IVPUSH 4 mg Q8H-IV [facility] Administration Diltiazem HCl 90 mg 09/22/17 12:00 Cardizem - NGT Q6HPO [facility] Haloperidol 5 mg 09/22/17 11:33 09/22/17 13:08 Haldol Injection (Fast Acting) - IM 5 mg Q4H PRN Administration AGITATION Hydralazine HCl 10 mg 09/11/17 10:25 09/13/17 21:33 Apresoline Injection - IVPUSH 10 mg Q6H PRN Administration HYPERTENSION HEPARIN SOD,PORK IN 0.45% NACL 25,000 units in 500 mls @ 20 mls/hr 09/12/17 20 :00 09/22/17 08:49 Heparin-1/2ns 25,000 Units/500 IVPB 700 units/hr TITR [facility] 14 mls/hr Protocol Titration 1,000 UNITS/HR Octreotide Acetate 1,200 mcg/ 500 mls @ 20.83 mls/hr 09/21/17 22:45 09/21/17 23:42 Dextrose IVPB 20.83 mls/hr ASDIR [facility] Administration Protocol 50 MCG/HR Diltiazem HCl 125 mg/ Dextrose 125 mls @ 5 mls/hr 09/22/17 09:15 09/22/17 10: 34 IVPB 5 mg/hr TITR [facility] 5 mls/hr Protocol Administration 5 MG/HR Pantoprazole Sodium 160 mg/ 290 mls @ 14.5 mls/hr 09/22/17 10:15 09/22/17 10: 37 Dextrose IVPB Not Given Q20H [facility] Sodium Chloride 1,000 mls @ 75 mls/hr 09/22/17 11:45 09/22/17 12:48 1/2 Normal Saline IV 75 mls/hr ASDIR [facility] Administration Insulin Aspart 1 vial 09/19/17 22:07 09/22/17 11:31 Novolog Vial Sliding Scale - SQ Not Given Q4HPO [facility] Protocol Insulin Detemir 15 units 09/19/17 22:00 09/21/17 21:53 Levemir Vial SQ Not Given HS [facility] Metoprolol Tartrate 5 mg 09/11/17 10:25 09/22/17 08:55 Lopressor Injection - IVPUSH 5 mg Q4H PRN Administration HYPERTENSION Ondansetron HCl 4 mg 09/11/17 02:02 Zofran Injection IVPUSH Q6H PRN NAUSEA Trazodone HCl 50 mg 09/20/17 22:00 09/22/17 00:21 Desyrel - PO Not Given HS [facility] Impression 1. CKD 2. SUSAN 3. DM 4. htn 5. chol 6. chemo port malfunction 7. a-fib 8. lung mass 9. proteinuria 10. adenocarcinoma 11. CVA 12. acute resp failure 13. hyperkalemia Plan - place bateman catheter, likely has retention - will treat potassium medically - check ecg - discussed with ICU team - discussed with pts daughter - start hypotonic fluids - repeat potassium level - neuro follow up - monitor pulse ox - overall prognosis poor - cont ICU care - will follow Dr Llanos
[2017-09-22] MEDS ORDERED: PT OWN MED DRAWER 7, Y5N ONE ×3 (15:21→21:29)
[2017-09-22 15:30] LABS: ALBUMIN 1.8 g/dl (3.4-5.0); ANION GAP 11 (8-16); BILIRUBIN,TOTAL 0.3 mg/dL (0.2-1.0); BLOOD UREA NITROGEN 88 mg/dL (7-18); CALCIUM 7.2 mg/dL (8.5-10.1); CHLORIDE 114 mmol/L (98-107); CO2 23 mmol/L (21-32); CREATININE 2.1 mg/dL (0.55-1.02); GLUCOSE,RANDOM 150 mg/dL (74-106); MAGNESIUM 2.7 mg/dL (1.8-2.4); PHOSPHOROUS 5.4 mg/dL (2.5-4.9); POTASSIUM 5.4 mmol/L (3.5-5.1); SGOT/AST 17 U/L (15-37); SGPT/ALT 25 U/L (12-78); SODIUM 148 mmol/L (136-145); TOT PROT 4.4 g/dl (6.4-8.2)
[2017-09-22 15:31] LABS: ALK PHOS 64 U/L (45-117)
--- NOTE | 2017-09-22 16:34 | EKG ---
Test Reason : Blood Pressure : / mmHG Vent. Rate : 118 BPM Atrial Rate : 330 BPM P-R Int : 000 ms QRS Dur : 076 ms QT Int : 336 ms P-R-T Axes : 000 050 059 degrees QTc Int : 470 ms ATRIAL FLUTTER WITH VARIABLE A-V BLOCK T WAVE ABNORMALITY, CONSIDER ANTEROLATERAL ISCHEMIA ABNORMAL ECG WHEN COMPARED WITH ECG OF 12-SEP-2017 08:23, ATRIAL FLUTTER HAS REPLACED ATRIAL FIBRILLATION T WAVE INVERSION NOW EVIDENT IN ANTERIOR LEADS CLINICAL CORRELATION IS RECOMMENDED Confirmed by ROMAN HIGUERA, VIVIANA ([id number]) on 09/22/2017 4:33:55 PM Referred By: Confirmed By:VIVIANA OWENS MD
[2017-09-22] MEDS: CHLORHEXIDINE GLUCONATE 0.12% 15ML CUP MM SCH (17:11)
[2017-09-22] MEDS ORDERED: DIGOXIN 0.5 MG/2 ML AMPUL IVPUSH ONE (17:30)
[2017-09-22] MEDS ORDERED: dilTIAZem HCL 50 MG/10 ML - 10 ML VIAL IVPUSH ONE (17:30)
--- NOTE | 2017-09-22 18:54 | PN ---
Progress Note, Physician Chief Complaint: ASLEEP AROUSABLE TACHYCARDIA CONTINUES - Current Medication List Current Medications: Active Medications Acetaminophen (Ofirmev Injection -) 1,000 mg IVPB Q6H PRN PRN Reason: FEVER OR PAIN Last Admin: 09/20/17 19:19 Dose: 1,000 mg Albuterol/Ipratropium (Duoneb -) 1 amp NEB Q6H PRN PRN Reason: SHORT OF BREATH/WHEEZING Artificial Tears (Artificial Tears Ointment -) 1 applic OU BID [facility] Last Admin: 09/22/17 10:41 Dose: 1 applic Atorvastatin Calcium (Lipitor -) 20 mg PO HS [facility] Last Admin: 09/22/17 00:22 Dose: Not Given Chlorhexidine Gluconate (Hibiclens For Decolonization -) 1 applic TP HS [facility] Last Admin: 09/21/17 23:07 Dose: 1 applic Chlorhexidine Gluconate (Peridex -) 15 ml MM BID [facility] Last Admin: 09/22/17 17:11 Dose: Not Given Ciprofloxacin (Ciloxan 0.3% Eye Drops --) 2 drop OS Q2H [facility] Last Admin: 09/22/17 17:02 Dose: 2 drop Clotrimazole (Mycelex China's -) 10 mg PO 5XD [facility] Last Admin: 09/22/17 16:42 Dose: Not Given Dexamethasone Sodium Phosphate (Decadron Injection -) 4 mg IVPUSH Q8H-IV [facility] Last Admin: 09/22/17 17:30 Dose: 4 mg Digoxin (Lanoxin Injection -) 0.25 mg IVPUSH Q6H [facility] Stop: 09/23/17 05:31 Digoxin (Lanoxin Injection -) 0.125 mg IVPUSH Q2D@1000 [facility] Diltiazem HCl (Cardizem -) 90 mg NGT Q6HPO [facility] Haloperidol (Haldol Injection (Fast Acting) -) 5 mg IM Q4H PRN PRN Reason: AGITATION Last Admin: 09/22/17 13:08 Dose: 5 mg Hydralazine HCl (Apresoline Injection -) 10 mg IVPUSH Q6H PRN PRN Reason: HYPERTENSION Last Admin: 09/13/17 21:33 Dose: 10 mg HEPARIN SOD,PORK IN 0.45% NACL (Heparin-1/2ns 25,000 Units/500) 25,000 units in 500 mls @ 20 mls/hr IVPB TITR [facility]; 1,000 UNITS/HR PRN Reason: Protocol Last Titration: 09/22/17 08:49 Dose: 700 units/hr, 14 mls/hr Octreotide Acetate 1,200 mcg/ (Dextrose) 500 mls @ 20.83 mls/hr IVPB ASDIR [facility] ; 50 MCG/HR PRN Reason: Protocol Last Admin: 09/21/17 23:42 Dose: 20.83 mls/hr Diltiazem HCl 125 mg/ Dextrose 125 mls @ 5 mls/hr IVPB TITR [facility]; 5 MG/HR PRN Reason: Protocol Last Titration: 09/22/17 17:12 Dose: 15 mg/hr, 15 mls/hr Pantoprazole Sodium 160 mg/ (Dextrose) 290 mls @ 14.5 mls/hr IVPB Q20H [facility] Last Admin: 09/22/17 17:25 Dose: 14.5 mls/hr Sodium Chloride (1/2 Normal Saline) 1,000 mls @ 75 mls/hr IV ASDIR [facility] Last Admin: 09/22/17 12:48 Dose: 75 mls/hr Insulin Aspart (Novolog Vial Sliding Scale -) 1 vial SQ Q4HPO [facility] PRN Reason: Protocol Last Admin: 09/22/17 17:33 Dose: 6 units Insulin Detemir (Levemir Vial) 15 units SQ HS [facility] Last Admin: 09/21/17 21:53 Dose: Not Given Metoprolol Tartrate (Lopressor Injection -) 5 mg IVPUSH Q4H PRN PRN Reason: HYPERTENSION Last Admin: 09/22/17 08:55 Dose: 5 mg Ondansetron HCl (Zofran Injection) 4 mg IVPUSH Q6H PRN PRN Reason: NAUSEA Trazodone HCl (Desyrel -) 50 mg PO HS [facility] Last Admin: 09/22/17 00:21 Dose: Not Given - Objective Vital Signs: Vital Signs Temperature 98.5 F 09/22/17 16:00 Pulse Rate 117 H 09/22/17 17:12 Respiratory Rate 18 09/22/17 16:00 Blood Pressure 98/63 09/22/17 17:12 O2 Sat by Pulse Oximetry (%) 99 09/22/17 18:45 Constitutional: Yes: Moderate Distress Eyes: Yes: WNL HENT: Yes: WNL Neck: Yes: WNL Cardiovascular: Yes: Tachycardia Respiratory: Yes: On Nasal O2 Gastrointestinal: Yes: WNL Genitourinary: Yes: Mcdonald Present, Incontinence Musculoskeletal: Yes: Muscle Weakness Extremities: Yes: Other Edema: No Peripheral Pulses WNL: Yes Integumentary: Yes: Venous Stasis Changes Wound/Incision: Yes: Dressing Dry and Intact Neurological: Yes: Confusion, Pre-Existing Deficit, Weakness ...Motor Strength: LUE, LLE, RUE, RLE Psychiatric: Yes: Other Labs: CBC, BMP 09/22/17 05:20 09/22/17 14:35 INR, PTT INR 0.96 (0.82-1.09) 09/17/17 06:25 Problem List - Problems (1) Brain metastasis Code(s): C79.31 - SECONDARY MALIGNANT NEOPLASM OF BRAIN (2) Headache Code(s): R51 - HEADACHE Qualifiers: Headache chronicity pattern: unspecified pattern Intractability: intractable (3) Intractable vomiting with nausea Code(s): R11.2 - NAUSEA WITH VOMITING, UNSPECIFIED Qualifiers: Vomiting type: unspecified Qualified Code(s): R11.2 - Nausea with vomiting , unspecified (4) SUSAN (acute kidney injury) Code(s): N17.9 - ACUTE KIDNEY FAILURE, UNSPECIFIED (5) Cancer, colon Code(s): C18.9 - MALIGNANT NEOPLASM OF COLON, UNSPECIFIED Qualifiers: Colon location: unspecified part of colon Qualified Code(s): C18.9 - Malignant neoplasm of colon, unspecified (6) Lung mass Code(s): R91.8 - OTHER NONSPECIFIC ABNORMAL FINDING OF LUNG FIELD (7) CVA (cerebral vascular accident) Code(s): I63.9 - CEREBRAL INFARCTION, UNSPECIFIED Assessment/Plan SWALLOW EVAL WITH MODIFIED BARIUM NEEDED NGT FOR NOW FOR NUTRITION AND MEDS DIGOXIN STARTED FOR TACHYCARDIA MONITOR RENAL FUNCTION/K+ LEVELS NEPHROLOGY EVAL APPRECIATED PT EVAL PENDING FOR NOW UNTIL PATIENT MORE STABLE NEUROLOGY EVAL
[2017-09-22] MEDS ORDERED: LORazepam 2 MG/ML SDV VIAL ONE (22:00)
[2017-09-22] MEDS: CHLORHEXIDINE GLUCONATE 4% CLEANSER FOR DECOLONIZATION TP SCH (22:09)
[2017-09-22] MEDS: INSULIN DETEMIR 100 UNITS/ML MDV SQ SCH (23:31)
[2017-09-22] MEDS: DIGOXIN 0.5 MG/2 ML AMPUL IVPUSH SCH (23:32)
[2017-09-22] MEDS: OCTREOTIDE ACETATE 1,200 MCG in DEXTROSE 5%-WATER - 488 ML IVPB SCH (23:43)
[2017-09-23] MEDS: CIPROFLOXACIN 0.3% EYE DROPS 5 ML BOTTLE OS SCH ×14 (00:45→23:06)
[2017-09-23] MEDS: CHLORHEXIDINE GLUCONATE 0.12% 15ML CUP MM SCH ×3 (00:58→21:39)
[2017-09-23] MEDS: INSULIN SLIDING SCALE (NOVOLOG) 1 VIAL SQ SCH ×6 (01:39→23:00)
[2017-09-23] MEDS: DEXAMETHASONE SOD PHOSPHATE 4 MG/1 ML VIAL IVPUSH SCH ×2 (01:42→10:00)
[2017-09-23] MEDS: DILTIAZEM INJECTION 125 MG in DEXTROSE 5%-WATER - 100 ML IVPB SCH ×2 (04:28→11:53)
[2017-09-23] MEDS: HALOPERIDOL LACTATE 5 MG/ML IM PRN (04:39)
[2017-09-23] MEDS: CLOTRIMAZOLE 10 MG TROCHE (FP) PO SCH ×4 (05:59→18:21)
[2017-09-23] MEDS: DIGOXIN 0.5 MG/2 ML AMPUL IVPUSH SCH (06:10)
[2017-09-23 06:15] LABS: ARTERIAL BLD GAS O2 SATURATION 91.3 % (90-98.9); ARTERIAL BLOOD GAS BASE EXCESS -3.4 meq/l (-2-2); ARTERIAL BLOOD GAS PCO2 51.7 mmHg (35-45); ARTERIAL BLOOD GAS PO2 64.9 mmHg (80-100); ARTERIAL BLOOD GAS pH 7.27 (7.35-7.45)
[2017-09-23 06:17] LABS: ALLENS TEST POSITIVE
[2017-09-23 06:54] LABS: ALK PHOS 70 U/L (45-117); ANION GAP 8 (8-16); BILIRUBIN,TOTAL 0.2 mg/dL (0.2-1.0); BLOOD UREA NITROGEN 91 mg/dL (7-18); CALCIUM 7.7 mg/dL (8.5-10.1); CHLORIDE 117 mmol/L (98-107); CO2 26 mmol/L (21-32); CREATININE 2.3 mg/dL (0.55-1.02); GLUCOSE,RANDOM 176 mg/dL (74-106); MAGNESIUM 2.8 mg/dL (1.8-2.4); PHOSPHOROUS 6.3 mg/dL (2.5-4.9); SGOT/AST 24 U/L (15-37); SGPT/ALT 28 U/L (12-78); SODIUM 151 mmol/L (136-145); TOT PROT 4.8 g/dl (6.4-8.2)
[2017-09-23] MEDS ORDERED: CALCIUM GLUCONATE 10% - 1,000 MG/10 ML VIAL IVPB ONE (08:18)
[2017-09-23] MEDS ORDERED: DEXTROSE 50%-WATER - 25 GM/50 ML VIAL IVPUSH ONE (08:19)
[2017-09-23] MEDS ORDERED: INSULIN REGULAR HUMAN 100 UNITS/ML *VIAL IVPUSH ONE (08:20)
[2017-09-23] MEDS ORDERED: SODIUM BICARBONATE 8.4% 50 MEQ/50 ML VIAL IV ONE (08:21)
[2017-09-23] MEDS ORDERED: ALBUTEROL SO4 0.5 % INH SOLN 2.5 MG/0.5 ML VIAL.NEB. NEB ONE (08:22)
[2017-09-23] MEDS ORDERED: ALBUTEROL SO4 0.083% IH SOL 2.5 MG/3 ML VIAL.NEB. NEB ONE (08:51)
--- NOTE | 2017-09-23 08:54 | PN ---
Progress Note, Physician History of Present Illness: ON BIPAP - Current Medication List Current Medications: Active Medications Acetaminophen (Ofirmev Injection -) 1,000 mg IVPB Q6H PRN PRN Reason: FEVER OR PAIN Last Admin: 09/20/17 19:19 Dose: 1,000 mg Albuterol/Ipratropium (Duoneb -) 1 amp NEB Q6H PRN PRN Reason: SHORT OF BREATH/WHEEZING Artificial Tears (Artificial Tears Ointment -) 1 applic OU BID [facility] Last Admin: 09/22/17 22:08 Dose: 1 applic Atorvastatin Calcium (Lipitor -) 20 mg PO HS [facility] Last Admin: 09/22/17 22:08 Dose: 20 mg Chlorhexidine Gluconate (Hibiclens For Decolonization -) 1 applic TP HS [facility] Last Admin: 09/22/17 22:09 Dose: 1 applic Chlorhexidine Gluconate (Peridex -) 15 ml MM BID [facility] Last Admin: 09/23/17 00:58 Dose: Not Given Ciprofloxacin (Ciloxan 0.3% Eye Drops --) 2 drop OS Q2H [facility] Last Admin: 09/23/17 06:00 Dose: 2 drop Clotrimazole (Mycelex China's -) 10 mg PO 5XD [facility] Last Admin: 09/23/17 05:59 Dose: Not Given Dexamethasone Sodium Phosphate (Decadron Injection -) 4 mg IVPUSH Q8H-IV [facility] Last Admin: 09/23/17 01:42 Dose: 4 mg Digoxin (Lanoxin Injection -) 0.125 mg IVPUSH Q2D@1000 [facility] Diltiazem HCl (Cardizem -) 90 mg NGT Q6HPO [facility] Haloperidol (Haldol Injection (Fast Acting) -) 5 mg IM Q4H PRN PRN Reason: AGITATION Last Admin: 09/23/17 04:39 Dose: 5 mg Hydralazine HCl (Apresoline Injection -) 10 mg IVPUSH Q6H PRN PRN Reason: HYPERTENSION Last Admin: 09/13/17 21:33 Dose: 10 mg HEPARIN SOD,PORK IN 0.45% NACL (Heparin-1/2ns 25,000 Units/500) 25,000 units in 500 mls @ 20 mls/hr IVPB TITR [facility]; 1,000 UNITS/HR PRN Reason: Protocol Last Titration: 09/22/17 19:05 Dose: 650 units/hr, 13 mls/hr Octreotide Acetate 1,200 mcg/ (Dextrose) 500 mls @ 20.83 mls/hr IVPB ASDIR [facility] ; 50 MCG/HR PRN Reason: Protocol Last Admin: 09/22/17 23:43 Dose: 20.83 mls/hr Diltiazem HCl 125 mg/ Dextrose 125 mls @ 5 mls/hr IVPB TITR [facility]; 5 MG/HR PRN Reason: Protocol Last Admin: 09/23/17 04:28 Dose: 15 mg/hr, 15 mls/hr Pantoprazole Sodium 160 mg/ (Dextrose) 290 mls @ 14.5 mls/hr IVPB Q20H [facility] Last Admin: 09/22/17 17:25 Dose: 14.5 mls/hr Sodium Chloride (1/2 Normal Saline) 1,000 mls @ 75 mls/hr IV ASDIR [facility] Last Admin: 09/22/17 12:48 Dose: 75 mls/hr Insulin Aspart (Novolog Vial Sliding Scale -) 1 vial SQ Q4HPO [facility] PRN Reason: Protocol Last Admin: 09/23/17 06:10 Dose: 4 units Insulin Detemir (Levemir Vial) 15 units SQ [facility] Last Admin: 09/22/17 23:31 Dose: 15 units Metoprolol Tartrate (Lopressor Injection -) 5 mg IVPUSH Q4H PRN PRN Reason: HYPERTENSION Last Admin: 09/22/17 08:55 Dose: 5 mg Ondansetron HCl (Zofran Injection) 4 mg IVPUSH Q6H PRN PRN Reason: NAUSEA Trazodone HCl (Desyrel -) 50 mg PO [facility] Last Admin: 09/22/17 22:08 Dose: 50 mg - Objective Vital Signs: Vital Signs Temperature 97.6 F 09/23/17 06:00 Pulse Rate 106 H 09/23/17 07:52 Respiratory Rate 20 09/23/17 06:00 Blood Pressure 135/52 09/23/17 07:52 O2 Sat by Pulse Oximetry (%) 99 09/22/17 20:14 Cardiovascular: Yes: S1, S2 Respiratory: Yes: On BiPap, Rhonchi Gastrointestinal: Yes: Normal Bowel Sounds, Soft Labs: CBC, BMP 09/23/17 05:00 INR, PTT INR 0.96 (0.82-1.09) 09/17/17 06:25 Problem List - Problems (1) Respiratory failure Assessment/Plan: PER ICU TEAM ON BIPAP NEBS CXR Code(s): J96.90 - RESPIRATORY FAILURE, UNSP, UNSP W HYPOXIA OR HYPERCAPNIA (2) Brain metastasis Assessment/Plan: NEURO CONSULT NOTED Code(s): C79.31 - SECONDARY MALIGNANT NEOPLASM OF BRAIN (3) CVA (cerebral vascular accident) Assessment/Plan: ABOVE--SEE NEURO CONSULT CT WITH HYDROCEPHALUS NS AND NEURO ON CASE FURTHER PLAN PER NEURO- Code(s): I63.9 - CEREBRAL INFARCTION, UNSPECIFIED (4) Metastatic colorectal cancer Code(s): C78.5 - SECONDARY MALIGNANT NEOPLASM OF LARGE INTESTINE AND RECTUM (5) Atrial fibrillation Assessment/Plan: ON CARDIZEM-METOPROLOL AND DIG ON HEPARIN CARDIO ON BOARD Code(s): I48.91 - UNSPECIFIED ATRIAL FIBRILLATION (6) Diabetes Assessment/Plan: BGM Code(s): E11.9 - TYPE 2 DIABETES MELLITUS WITHOUT COMPLICATIONS
--- NOTE | 2017-09-23 08:57 | PN ---
Physical Exam: SUBJECTIVE: Patient seen and examined. Was very agitated at night trying to remove all tubes. Received total of 10mg of haldol and began to sleep this am. Still on Bipap, with OGT in place. Started on digoxin with rate better controlled. Continuing cardizem drip and lopressor iv. OBJECTIVE: Vital Signs Period Temp Pulse Resp BP Sys/Mcdaniel Pulse Ox Last 24 Hr 97.2 F-99.3 F 106-158 12-24 98-164/6-89 99-100 Vital Signs Temp 97.6 F 09/23/17 06:00 Pulse 106 H 09/23/17 07:52 Resp 20 09/23/17 06:00 BP 135/52 09/23/17 07:52 Pulse Ox 99 09/22/17 20:14 Intake & Output 09/22/17 09/22/17 09/23/17 11:59 23:59 11:59 Intake Total 407.6 1700.6 848 Output Total 500 1600 300 Balance -92.4 100.6 548 Weight 88 kg 88.949 kg Intake: IV 407.6 1700.6 848 1/2 Normal Saline 1,000 850 418 ml @ 75 mls/hr IV ASDIR CORDELIA Rx#:[id number] Cardizem Injection - 125 125 105 mg In D5w - 100 ml @ 5 MG /HR 5 mls/hr IVPB TITR CORDELIA Rx#:[id number] HEPARIN-1/2NS 25,000 192 212 91 UNITS/500 25,000 units In 500 ml @ 1,000 UNITS/HR 20 mls/hr IVPB TITR CORDELIA Rx#:[id number] PROTONIX GTT 70 184 94 SANDOSTATIN GTT 145.6 329.6 140 Output: Gastric Drainage 500 Urine 1600 300 Bateman 400 300 Void 1200 Other: Voiding Method Diaper Indwelling Catheter # Unmeasured Voids Void 2 Weight Measurement Method Built in [facility] Built in [facility] GENERAL: The patient is awake, lethargic, agitated HEAD: Healing L eye bruise. EYES: Bilaterally reacting pupils. Improving L eye hyphema ENT: Bipap in place-07/14 this am, NGT in place NECK: supple. LUNGS: Vesicular breath sounds equal, creps >L, with upper airway intermittent transmitted sounds HEART: Tachycardic, S1, S2 . ABDOMEN: Soft, nontender, nondistended, normoactive bowel sounds, EXTREMITIES: 2+ pulses, warm, well-perfused, no edema, SCDs. NEUROLOGICAL: Awake, Agitated, moving all limbs PSYCH: Agitated Lines: Bateman, LUE and RUE peripheral lines, NGT, bipap ABG Results ABG pH 7.27 (7.35-7.45) L 09/23/17 06:05 ABG pCO2 at Pt Temp 51.7 mmHg (35-45) H 09/23/17 06:05 ABG pO2 at Pt Temp 64.9 mmHg (80-100) L D 09/23/17 06:05 ABG HCO3 22.8 meq/L (22-26) 09/23/17 06:05 ABG O2 Sat (Measured) 91.3 % (90-98.9) 09/23/17 06:05 ABG O2 Content 8.8 % vol (15-22) L* 09/23/17 06:05 ABG Base Excess -3.4 meq/l (-2-2) L 09/23/17 06:05 Laboratory Results - last 24 hr 09/19/17 09/19/17 09/22/17 17:46 19:23 05:20 Neutrophils % (Manual) 92.0 H* Band Neutrophils % 2.0 Lymphocytes % (Manual) 3.0 L D Monocytes % (Manual) 3 L Eosinophils % (Manual) 0.0 Basophils % (Manual) 0.0 Myelocytes % (Man) 0 Metamyelocytes 0 Platelet Estimate Increased PTT (Actin FS) Puncture Site ABG pH ABG pCO2 at Pt Temp ABG pO2 at Pt Temp ABG HCO3 ABG O2 Sat (Measured) ABG O2 Content ABG Base Excess Addy Test O2 Delivery Device Oxygen Flow Rate Vent Mode Vent Rate Mechanical Rate PEEP Pressure Support Vent Sodium Potassium Chloride Carbon Dioxide Anion Gap BUN Creatinine Creat Clearance w eGFR POC Glucometer 231.86865 202.13593 Random Glucose Calcium Phosphorus Magnesium Total Bilirubin AST ALT Alkaline Phosphatase Total Protein Albumin 09/22/17 09/22/17 09/22/17 05:20 06:44 10:30 Neutrophils % (Manual) Band Neutrophils % Lymphocytes % (Manual) Monocytes % (Manual) Eosinophils % (Manual) Basophils % (Manual) Myelocytes % (Man) Metamyelocytes Platelet Estimate PTT (Actin FS) Puncture Site Right radial ABG pH 7.30 L ABG pCO2 at Pt Temp 45.8 H ABG pO2 at Pt Temp 199.0 H* ABG HCO3 21.9 L ABG O2 Sat (Measured) 99.2 H ABG O2 Content 11.0 L ABG Base Excess -3.7 L Addy Test Positive O2 Delivery Device Other Oxygen Flow Rate 50% Vent Mode S/t Vent Rate 16 Mechanical Rate Bipab PEEP 0.0 Pressure Support Vent 12/6 Sodium 154 H Potassium 6.5 H* Chloride 120 H Carbon Dioxide 23 Anion Gap 11 BUN 95 H Creatinine 2.3 H Creat Clearance w eGFR 21.63 POC Glucometer 119.64553 Random Glucose 82 Calcium 8.1 L Phosphorus 7.2 H D Magnesium 3.0 H Total Bilirubin 0.3 D AST 20 D ALT 30 Alkaline Phosphatase 78 D Total Protein 4.8 L Albumin 2.1 L 09/22/17 09/22/17 09/22/17 10:48 13:56 14:35 Neutrophils % (Manual) Band Neutrophils % Lymphocytes % (Manual) Monocytes % (Manual) Eosinophils % (Manual) Basophils % (Manual) Myelocytes % (Man) Metamyelocytes Platelet Estimate PTT (Actin FS) 84.0 H Puncture Site ABG pH ABG pCO2 at Pt Temp ABG pO2 at Pt Temp ABG HCO3 ABG O2 Sat (Measured) ABG O2 Content ABG Base Excess Addy Test O2 Delivery Device Oxygen Flow Rate Vent Mode Vent Rate Mechanical Rate PEEP Pressure Support Vent Sodium Potassium Chloride Carbon Dioxide Anion Gap BUN Creatinine Creat Clearance w eGFR POC Glucometer 120.16273 155.46405 Random Glucose Calcium Phosphorus Magnesium Total Bilirubin AST ALT Alkaline Phosphatase Total Protein Albumin 09/22/17 09/22/17 09/22/17 14:35 17:30 23:22 Neutrophils % (Manual) Band Neutrophils % Lymphocytes % (Manual) Monocytes % (Manual) Eosinophils % (Manual) Basophils % (Manual) Myelocytes % (Man) Metamyelocytes Platelet Estimate PTT (Actin FS) Puncture Site ABG pH ABG pCO2 at Pt Temp ABG pO2 at Pt Temp ABG HCO3 ABG O2 Sat (Measured) ABG O2 Content ABG Base Excess Addy Test O2 Delivery Device Oxygen Flow Rate Vent Mode Vent Rate Mechanical Rate PEEP Pressure Support Vent Sodium 148 H Potassium 5.4 H Chloride 114 H Carbon Dioxide 23 Anion Gap 11 BUN 88 H Creatinine 2.1 H Creat Clearance w eGFR 24.02 POC Glucometer 242.43712 228.18080 Random Glucose 150 H Calcium 7.2 L Phosphorus 5.4 H D Magnesium 2.7 H Total Bilirubin 0.3 AST 17 ALT 25 Alkaline Phosphatase 64 D Total Protein 4.4 L Albumin 1.8 L 09/23/17 09/23/17 09/23/17 01:35 05:00 05:00 Neutrophils % (Manual) Band Neutrophils % Lymphocytes % (Manual) Monocytes % (Manual) Eosinophils % (Manual) Basophils % (Manual) Myelocytes % (Man) Metamyelocytes Platelet Estimate PTT (Actin FS) 59.7 H Puncture Site ABG pH ABG pCO2 at Pt Temp ABG pO2 at Pt Temp ABG HCO3 ABG O2 Sat (Measured) ABG O2 Content ABG Base Excess Addy Test O2 Delivery Device Oxygen Flow Rate Vent Mode Vent Rate Mechanical Rate PEEP Pressure Support Vent Sodium 151 H Potassium 6.0 H Chloride 117 H Carbon Dioxide 26 Anion Gap 8 BUN 91 H Creatinine 2.3 H Creat Clearance w eGFR 21.63 POC Glucometer 220.46542 Random Glucose 176 H Calcium 7.7 L Phosphorus 6.3 H Magnesium 2.8 H Total Bilirubin 0.2 D AST 24 D ALT 28 Alkaline Phosphatase 70 Total Protein 4.8 L Albumin 2.0 L 09/23/17 09/23/17 05:31 06:05 Neutrophils % (Manual) Band Neutrophils % Lymphocytes % (Manual) Monocytes % (Manual) Eosinophils % (Manual) Basophils % (Manual) Myelocytes % (Man) Metamyelocytes Platelet Estimate PTT (Actin FS) Puncture Site Right radial ABG pH 7.27 L ABG pCO2 at Pt Temp 51.7 H ABG pO2 at Pt Temp 64.9 L D ABG HCO3 22.8 ABG O2 Sat (Measured) 91.3 ABG O2 Content 8.8 L* ABG Base Excess -3.4 L Addy Test Positive O2 Delivery Device Bipap Oxygen Flow Rate 50% Vent Mode S/t Vent Rate 16 Mechanical Rate PEEP Pressure Support Vent 12/6 Sodium Potassium Chloride Carbon Dioxide Anion Gap BUN Creatinine Creat Clearance w eGFR POC Glucometer 224.01365 Random Glucose Calcium Phosphorus Magnesium Total Bilirubin AST ALT Alkaline Phosphatase Total Protein Albumin Active Medications Generic Name Dose Route Start Last Admin Trade Name Freq PRN Reason Stop Dose Admin Acetaminophen 1,000 mg 09/15/17 11:50 09/20/17 19:19 Ofirmev Injection - IVPB 1,000 mg Q6H PRN Administration FEVER OR PAIN Albuterol/Ipratropium 1 amp 09/20/17 10:30 Duoneb - NEB Q6H PRN SHORT OF BREATH/WHEEZING Artificial Tears 1 applic 09/15/17 22:00 09/22/17 22:08 Artificial Tears Ointment - OU 1 applic BID CORDELIA Administration Atorvastatin Calcium 20 mg 09/11/17 22:00 09/22/17 22:08 Lipitor - PO 20 mg HS CORDELIA Administration Chlorhexidine Gluconate 1 applic 09/15/17 22:00 09/22/17 22:09 Hibiclens For Decolonization - TP 1 applic HS CORDELIA Administration Chlorhexidine Gluconate 15 ml 09/15/17 22:00 09/23/17 00:58 Peridex - MM Not Given BID CORDELIA Ciprofloxacin 2 drop 09/16/17 14:45 09/23/17 06:00 Ciloxan 0.3% Eye Drops -- OS 2 drop Q2H CORDELIA Administration Clotrimazole 10 mg 09/21/17 06:00 09/23/17 05:59 Mycelex China's - PO Not Given 5XD CORDELIA Dexamethasone Sodium Phosphate 4 mg 09/19/17 18:00 09/23/17 01:42 Decadron Injection - IVPUSH 4 mg Q8H-IV CORDELIA Administration Digoxin 0.125 mg 09/24/17 10:00 Lanoxin Injection - IVPUSH Q2D@1000 CORDELIA Diltiazem HCl 90 mg 09/22/17 12:00 Cardizem - NGT Q6HPO CORDELIA Haloperidol 5 mg 09/22/17 11:33 09/23/17 04:39 Haldol Injection (Fast Acting) - IM 5 mg Q4H PRN Administration AGITATION Hydralazine HCl 10 mg 09/11/17 10:25 09/13/17 21:33 Apresoline Injection - IVPUSH 10 mg Q6H PRN Administration HYPERTENSION HEPARIN SOD,PORK IN 0.45% NACL 25,000 units in 500 mls @ 20 mls/hr 09/12/17 20 :00 09/22/17 19:05 Heparin-1/2ns 25,000 Units/500 IVPB 650 units/hr TITR CORDELIA 13 mls/hr Protocol Titration 1,000 UNITS/HR Octreotide Acetate 1,200 mcg/ 500 mls @ 20.83 mls/hr 09/21/17 22:45 09/22/17 23:43 Dextrose IVPB 20.83 mls/hr ASDIR CORDELIA Administration Protocol 50 MCG/HR Diltiazem HCl 125 mg/ Dextrose 125 mls @ 5 mls/hr 09/22/17 09:15 09/23/17 04: 28 IVPB 15 mg/hr TITR CORDELIA 15 mls/hr Protocol Administration 5 MG/HR Pantoprazole Sodium 160 mg/ 290 mls @ 14.5 mls/hr 09/22/17 10:15 09/22/17 17: 25 Dextrose IVPB 14.5 mls/hr Q20H CORDELIA Administration Sodium Chloride 1,000 mls @ 75 mls/hr 09/22/17 11:45 09/22/17 12:48 1/2 Normal Saline IV 75 mls/hr ASDIR CORDELIA Administration Insulin Aspart 1 vial 09/19/17 22:07 09/23/17 06:10 Novolog Vial Sliding Scale - SQ 4 units Q4HPO CORDELIA Administration Protocol Insulin Detemir 15 units 09/19/17 22:00 09/22/17 23:31 Levemir Vial SQ 15 units HS CORDELIA Administration Metoprolol Tartrate 5 mg 09/11/17 10:25 09/22/17 08:55 Lopressor Injection - IVPUSH 5 mg Q4H PRN Administration HYPERTENSION Ondansetron HCl 4 mg 09/11/17 02:02 Zofran Injection IVPUSH Q6H PRN NAUSEA Trazodone HCl 50 mg 09/20/17 22:00 09/22/17 22:08 Desyrel - PO 50 mg HS CORDELIA Administration ASSESSMENT/PLAN: 62 yo F with PMHx of HTN, paroxysmal atrial fibrillation on apixaban, DM, HLD, CKD, GERD and colon CA s/p colectomy 2011 with mets to lung admitted to ICU for AMS now extubated on bipap Neuro/opth:. lethargic, off sedation, on bipap but hypercapneic R/O critical illness polyneuropathy AMS 2/2 to cerebral edema from multiple acute infarcts with background Afib L eye hyphema- cipro ointment OS Q2H Haldol PRN 5mg im PRN D/W daughter about re-intubation Respiratory: Acute hypercapneic hypoxic resp failure-extubated on , now on Bipap 07/14, RR-16 Repeat ABGs- noon Considering re-intubation D/W daughter about re-intubation Renal: SUSAN R/O CKD Hyperkalemia- Now 6- Kayexelate 30mg NGT stat 1/2 Normal saline @75/hr Albuterol [id number]% stat Repeat BMP- noon hypernatremia- Hyperphosphatemia Hypermagnesemia CMP,Mg, Phosphorus Hold Tube feeds Monitor Metabolic/Endocrine/GI/Lines: DM- with hyperglycemia bgm Tube feeds still on hold- in light of a likely GI bleed (via NGT, as H&H is dropping) Glucerna 1.5 @ 30cc/hr, increase as tolerated to Target volume: 1150ml volume Hypernatremic Lines: NGT, RUE peripheral line,LUE periph line, bateman Continue octreotide gtt@20.83/hr Cont protonix Cont levemir- 15u Cont ISS Hyperkalemia Kayexalate 30mg NGT Cont NPO Cont 1/2 NS after transfusion Cardio: Htn HLD Still tachycardic- Lopressor as needed Continue heparin drip for now to transition probably to eliquis when stable- per cardiology iv metoprolol prn -5mg Digoxin 0.125 iv cardizem gtt@5mls/hr Iv hydrazaline 10mg ivpush Hemonc: Colorectal cancer with lung mets Hgb 7 2U PRBCs 40iv lasix between 2 units ID: Acute sepsis could be 2/2 to PNA with L lung infiltrate CXR Received zosyn x 5 days Monitor Prophylaxis: on heparin gtt protonix drip @14.5/hr Heel pads Dispo: Monitor in ICU Visit type - Emergency Visit Emergency Visit: Yes ED Registration Date: 09/10/17 Care time: The patient presented to the Emergency Department on the above date and was hospitalized for further evaluation of their emergent condition. - New Patient This patient is new to me today: No - Critical Care Critical Care patient: Yes Total Critical Care Time (in minutes): 49 Critical Care Statement: The care of this patient involved high complexity decision making to prevent further life threatening deterioration of the patient 's condition and/or to evaluate & treat vital organ system(s) failure or risk of failure. - Discharge Referral Referred to [facility] No
[2017-09-23 09:25] LABS: MCH 25.5 pg (25.7-33.7); MCHC 30.3 g/dl (32.0-36.0); MEAN CELL VOLUME 84.4 fl (80-96); MEAN PLT VOLUME 10.2 fl (7.5-11.1); PLATELET COUNT 184 K/MM3 (134-434); RBC 2.72 M/mm3 (3.60-5.2); RDW 18.2 % (11.6-15.6); WHITE BLOOD COUNT 20.5 K/mm3 (4.0-10.0)
[2017-09-23] MEDS: MINERAL OIL/PETROLATUM,WHITE 3.5 GM TUBE OU SCH (10:00)
[2017-09-23] MEDS ORDERED: HEMOQUE TEST 1 EACH EACH ONE (10:55)
[2017-09-23] MEDS ORDERED: SODIUM POLYSTYRENE SULFONATE 15 GM/60 ML BOTTLE RC ONE (11:20)
[2017-09-23] MEDS: PANTOPRAZOLE SODIUM 160 MG in DEXTROSE 5%-WATER - 290 ML IVPB SCH (11:21)
--- NOTE | 2017-09-23 11:39 | PN ---
Teaching Attending Note Name of Resident: Lisa Mott ATTENDING PHYSICIAN STATEMENT I saw and evaluated the patient. I reviewed the resident's note and discussed the case with the resident. I agree with the resident's findings and plan as documented. SUBJECTIVE: Pt seen and examined in the ICU. Remains lethargic on BiPAP. Worsening respiratory acidosis on ABG, would intubate but daughter declining at this time. On heparin and cardizem gtts with better heart rate control. OBJECTIVE: Last Vital Signs Temp Pulse Resp BP Pulse Ox 96.0 F L 101 H 11 L 147/57 97 09/23/17 10:00 09/23/17 10:00 09/23/17 10:00 09/23/17 10:00 09/23/17 11:27 Intake & Output 09/20/17 09/21/17 09/22/17 09/23/17 23:59 23:59 23:59 23:59 Intake Total 2154 776 2108.2 848 Output Total 2100 300 Balance 2154 776 8.2 548 Weight 87.9 kg 90.5 kg 88 kg 88.949 kg Gen: lethargic on BiPAP Heart: irregular, tachycardic Lung: scattered rhonchi Abd: soft, nontender Ext: + edema CBC, BMP 09/23/17 05:00 09/23/17 05:00 Active Medications Acetaminophen (Ofirmev Injection -) 1,000 mg IVPB Q6H PRN PRN Reason: FEVER OR PAIN Last Admin: 09/20/17 19:19 Dose: 1,000 mg Albuterol/Ipratropium (Duoneb -) 1 amp NEB Q6H PRN PRN Reason: SHORT OF BREATH/WHEEZING Artificial Tears (Artificial Tears Ointment -) 1 applic OU BID [facility] Last Admin: 09/22/17 22:08 Dose: 1 applic Atorvastatin Calcium (Lipitor -) 20 mg PO HS [facility] Last Admin: 09/22/17 22:08 Dose: 20 mg Chlorhexidine Gluconate (Hibiclens For Decolonization -) 1 applic TP HS [facility] Last Admin: 09/22/17 22:09 Dose: 1 applic Chlorhexidine Gluconate (Peridex -) 15 ml MM BID [facility] Last Admin: 09/23/17 10:44 Dose: Not Given Ciprofloxacin (Ciloxan 0.3% Eye Drops --) 2 drop OS Q2H [facility] Last Admin: 09/23/17 06:00 Dose: 2 drop Clotrimazole (Mycelex China's -) 10 mg PO 5XD CORDELIA Last Admin: 09/23/17 10:44 Dose: Not Given Dexamethasone Sodium Phosphate (Decadron Injection -) 4 mg IVPUSH Q8H-IV CORDELIA Last Admin: 09/23/17 01:42 Dose: 4 mg Digoxin (Lanoxin Injection -) 0.125 mg IVPUSH Q2D@1000 CORDELIA Diltiazem HCl (Cardizem -) 90 mg NGT Q6HPO CORDELIA Haloperidol (Haldol Injection (Fast Acting) -) 5 mg IM Q4H PRN PRN Reason: AGITATION Last Admin: 09/23/17 04:39 Dose: 5 mg Hydralazine HCl (Apresoline Injection -) 10 mg IVPUSH Q6H PRN PRN Reason: HYPERTENSION Last Admin: 09/13/17 21:33 Dose: 10 mg HEPARIN SOD,PORK IN 0.45% NACL (Heparin-1/2ns 25,000 Units/500) 25,000 units in 500 mls @ 20 mls/hr IVPB TITR CORDELIA; 1,000 UNITS/HR PRN Reason: Protocol Last Titration: 09/22/17 19:05 Dose: 650 units/hr, 13 mls/hr Octreotide Acetate 1,200 mcg/ (Dextrose) 500 mls @ 20.83 mls/hr IVPB ASDIR CORDELIA ; 50 MCG/HR PRN Reason: Protocol Last Admin: 09/22/17 23:43 Dose: 20.83 mls/hr Diltiazem HCl 125 mg/ Dextrose 125 mls @ 5 mls/hr IVPB TITR CORDELIA; 5 MG/HR PRN Reason: Protocol Last Admin: 09/23/17 04:28 Dose: 15 mg/hr, 15 mls/hr Pantoprazole Sodium 160 mg/ (Dextrose) 290 mls @ 14.5 mls/hr IVPB Q20H CORDELIA Last Admin: 09/23/17 11:21 Dose: 14.5 mls/hr Sodium Chloride (1/2 Normal Saline) 1,000 mls @ 75 mls/hr IV ASDIR CORDELIA Last Admin: 09/22/17 12:48 Dose: 75 mls/hr Insulin Aspart (Novolog Vial Sliding Scale -) 1 vial SQ Q4HPO CORDELIA PRN Reason: Protocol Last Admin: 09/23/17 11:25 Dose: 2 units Insulin Detemir (Levemir Vial) 15 units SQ [facility] Last Admin: 09/22/17 23:31 Dose: 15 units Metoprolol Tartrate (Lopressor Injection -) 5 mg IVPUSH Q4H PRN PRN Reason: HYPERTENSION Last Admin: 09/22/17 08:55 Dose: 5 mg Ondansetron HCl (Zofran Injection) 4 mg IVPUSH Q6H PRN PRN Reason: NAUSEA Sodium Polystyrene Sulfonate (Kayexalate -) 30 gm NGT ONCE ONE Stop: 09/23/17 11:21 Trazodone HCl (Desyrel -) 50 mg PO [facility] Last Admin: 09/22/17 22:08 Dose: 50 mg ASSESSMENT AND PLAN: Multiple Acute Embolic CVA s/p Acute Hypoxic Respiratory Failure Pneumonia Atrial Fibrillation with RVR Metastatic Colon Ca to Lung Acute on Chronic Renal Failure Hyperkalemia HTN DM Hypercholesterolemia - monitor ABG, BMP - kayexalate - monitor lytes - continue antibiotics - titrate rate control - continue anticoagulation - aspiration precautions - increase free water - monitor urine output, creatinine - place bateman - enteral feeds if able to come off BiPAP - recommend intubation due to poor mental status requiring BiPAP and metabolic derangements, continue discussions with daughter - rehab/PT when more stable - DVT/GI prophylaxis - continue ICU monitoring critical care time spent in reviewing chart, evaluating patient and formulating plan 35 min
[2017-09-23] MEDS: SODIUM CHLORIDE 0.45% 1,000 ML IV SCH (11:55)
[2017-09-23] MEDS ORDERED: SODIUM POLYSTYRENE SULFONATE 15 GM/60 ML BOTTLE NGT ONE (12:00)
[2017-09-23 12:04] LABS: PLATELET ESTIMATE ADEQUATE
[2017-09-23] MEDS ORDERED: FUROSEMIDE 40 MG/4 ML INJECTABLE VIAL IVPUSH ONE (12:05)
[2017-09-23 12:46] LABS: ANION GAP 7 (8-16); BLOOD UREA NITROGEN 86 mg/dL (7-18); CALCIUM 7.3 mg/dL (8.5-10.1); CHLORIDE 120 mmol/L (98-107); CO2 25 mmol/L (21-32); CREATININE 2.1 mg/dL (0.55-1.02); GLUCOSE,RANDOM 173 mg/dL (74-106); POTASSIUM 5.8 mmol/L (3.5-5.1); SODIUM 152 mmol/L (136-145)
--- NOTE | 2017-09-23 12:56 | PN ---
Progress Note, Physician Chief Complaint: Rapid AFIB History of Present Illness: 62 year old woman with a PMHx of HTN, paroxysmal atrial fibrillation on apixaban , DM, HLD, CKD, GERD and colon CA s/p colectomy 2011 with mets to lung admitted with nausea and vomiting. Echocardiogram 06/18/17 Normal LV function with moderate to severe TR and moderate pulmonary HTN. 09/23/16 Lethargic on Bipap AFIB at 108 BPM. - Current Medication List Current Medications: Active Medications Acetaminophen (Ofirmev Injection -) 1,000 mg IVPB Q6H PRN PRN Reason: FEVER OR PAIN Last Admin: 09/20/17 19:19 Dose: 1,000 mg Albuterol/Ipratropium (Duoneb -) 1 amp NEB Q6H PRN PRN Reason: SHORT OF BREATH/WHEEZING Artificial Tears (Artificial Tears Ointment -) 1 applic OU BID [facility] Last Admin: 09/23/17 10:00 Dose: 1 applic Atorvastatin Calcium (Lipitor -) 20 mg PO HS [facility] Last Admin: 09/22/17 22:08 Dose: 20 mg Chlorhexidine Gluconate (Hibiclens For Decolonization -) 1 applic TP HS [facility] Last Admin: 09/22/17 22:09 Dose: 1 applic Chlorhexidine Gluconate (Peridex -) 15 ml MM BID [facility] Last Admin: 09/23/17 10:44 Dose: Not Given Ciprofloxacin (Ciloxan 0.3% Eye Drops --) 2 drop OS Q2H [facility] Last Admin: 09/23/17 11:48 Dose: 2 drop Clotrimazole (Mycelex China's -) 10 mg PO 5XD [facility] Last Admin: 09/23/17 10:44 Dose: Not Given Dexamethasone Sodium Phosphate (Decadron Injection -) 4 mg IVPUSH Q8H-IV [facility] Last Admin: 09/23/17 10:00 Dose: 4 mg Digoxin (Lanoxin Injection -) 0.125 mg IVPUSH Q2D@1000 [facility] Diltiazem HCl (Cardizem -) 90 mg NGT Q6HPO [facility] Haloperidol (Haldol Injection (Fast Acting) -) 5 mg IM Q4H PRN PRN Reason: AGITATION Last Admin: 09/23/17 04:39 Dose: 5 mg Hydralazine HCl (Apresoline Injection -) 10 mg IVPUSH Q6H PRN PRN Reason: HYPERTENSION Last Admin: 09/13/17 21:33 Dose: 10 mg HEPARIN SOD,PORK IN 0.45% NACL (Heparin-1/2ns 25,000 Units/500) 25,000 units in 500 mls @ 20 mls/hr IVPB TITR CORDELIA; 1,000 UNITS/HR PRN Reason: Protocol Last Titration: 09/22/17 19:05 Dose: 650 units/hr, 13 mls/hr Octreotide Acetate 1,200 mcg/ (Dextrose) 500 mls @ 20.83 mls/hr IVPB ASDIR CORDELIA ; 50 MCG/HR PRN Reason: Protocol Last Admin: 09/22/17 23:43 Dose: 20.83 mls/hr Diltiazem HCl 125 mg/ Dextrose 125 mls @ 5 mls/hr IVPB TITR CORDELIA; 5 MG/HR PRN Reason: Protocol Last Admin: 09/23/17 11:53 Dose: 15 mg/hr, 15 mls/hr Pantoprazole Sodium 160 mg/ (Dextrose) 290 mls @ 14.5 mls/hr IVPB Q20H [facility] Last Admin: 09/23/17 11:21 Dose: 14.5 mls/hr Sodium Chloride (1/2 Normal Saline) 1,000 mls @ 75 mls/hr IV ASDIR CORDELIA Last Admin: 09/23/17 11:55 Dose: Not Given Insulin Aspart (Novolog Vial Sliding Scale -) 1 vial SQ Q4HPO CORDELIA PRN Reason: Protocol Last Admin: 09/23/17 11:25 Dose: 2 units Insulin Detemir (Levemir Vial) 15 units SQ [facility] Last Admin: 09/22/17 23:31 Dose: 15 units Metoprolol Tartrate (Lopressor Injection -) 5 mg IVPUSH Q4H PRN PRN Reason: HYPERTENSION Last Admin: 09/22/17 08:55 Dose: 5 mg Ondansetron HCl (Zofran Injection) 4 mg IVPUSH Q6H PRN PRN Reason: NAUSEA Trazodone HCl (Desyrel -) 50 mg PO HS [facility] Last Admin: 09/22/17 22:08 Dose: 50 mg - Objective Vital Signs: Vital Signs Temperature 96.0 F L 09/23/17 10:00 Pulse Rate 101 H 09/23/17 10:00 Respiratory Rate 11 L 09/23/17 10:00 Blood Pressure 147/57 09/23/17 10:00 O2 Sat by Pulse Oximetry (%) 97 09/23/17 11:27 Constitutional: Yes: No Distress, Other (Lethargic on BiPAP) Neck: Yes: WNL Cardiovascular: Yes: Pulse Irregular (Irregular rate and rhythm, NL S1S2, no MRHG) Respiratory: Yes: Rhonchi (Diffuse bilateral rhochi) Gastrointestinal: Yes: Soft Extremities: Yes: WNL Edema: LLE: Trace, RLE: Trace Neurological: Yes: Lethargy (On BiPAP) Labs: CBC, BMP 09/23/17 05:00 09/23/17 11:45 INR, PTT INR 0.96 (0.82-1.09) 09/17/17 06:25 Assessment/Plan Acute Hypoxic Respiratory Failure Rapid AFIB Diltiazem Drip Agree with Dig Loading IV Rapid rates in AFIB are being exacerbated by hypoxia The team ICU is discussing intubation with the family HCT 23%, Consider PRBC Tx Agree with Kayexlate for hyperkalemia
[2017-09-23 13:17] LABS: ARTERIAL BLD GAS O2 SATURATION 92.6 % (90-98.9); ARTERIAL BLOOD GAS BASE EXCESS -4.6 meq/l (-2-2); ARTERIAL BLOOD GAS PO2 75.6 mmHg (80-100)
[2017-09-23 13:20] LABS: ALLENS TEST POSITIVE
[2017-09-23 13:23] LABS: ARTERIAL BLOOD GAS PCO2 66.8 mmHg (35-45); ARTERIAL BLOOD GAS pH 7.17 (7.35-7.45)
[2017-09-23] MEDS ORDERED: PROPOFOL 1,000,000 MCG/100 ML VIAL ONE (13:32)
[2017-09-23] MEDS: PROPOFOL 1,000,000 MCG/100 ML VIAL IVPB SCH (14:00)
--- NOTE | 2017-09-23 14:32 | PROC ---
Intubation - Intubation Reason for Intubation: Respiratory Failure Time of Intubation: 14:00 Intubation Method: orotracheal Blade used: Mac (3) Tube Size (cm): 7.5 Tube position @ lip (cm): 21 Tube position confirmed by: Direct visualization, CO2 detector, Chest x-ray, Breath sounds Breath Sounds after Intubation: equal Post Intubation Xray: Yes
--- NOTE | 2017-09-23 15:21 | PN ---
Progress Note (short form) - Note Progress Note: intubated this am trouble managing her secretions, lethargy suspected aspiration daughter reports mom was quite alert and recognizing friends and family on heparin drip on diltiazem drip now sedated copious ET secretions Vital Signs Period Temp Pulse Resp BP Sys/Mcdaniel Pulse Ox Last 24 Hr 96.0 F-98.5 F 101-134 11-20 98-164/6-80 97-99 cor-rrr lungs decreased bs at bases abd soft,nt ext no edema no skin breakdown darin intact and dry, no erythema CBC, BMP 09/23/17 05:00 09/23/17 11:45 Microbiology 09/15/17 12:45 Blood - Peripheral Venous Blood Culture - Final NO GROWTH AFTER 5 DAYS INCUBATION 09/15/17 12:52 Blood - Peripheral Venous Blood Culture - Final NO GROWTH AFTER 5 DAYS INCUBATION 09/15/17 12:00 Sputum - Endotrachea Suction/Ventilator Gram Stain - Final 09/15/17 12:00 Sputum - Endotrachea Suction/Ventilator Sputum Culture - Final Yeast Like Organism 09/15/17 12:00 Urine - Urine Mcdonald Urine Culture - Final NO GROWTH OBTAINED 09/09/17 22:58 Blood - Peripheral Venous Blood Culture - Final NO GROWTH AFTER 5 DAYS INCUBATION 09/09/17 22:30 Blood - Peripheral Venous Blood Culture - Final NO GROWTH AFTER 5 DAYS INCUBATION 09/10/17 00:13 Urine - Urine Clean Catch Urine Culture - Final Contaminated: Please Repeat Current Medications Acetaminophen (Ofirmev Injection -) 1,000 mg IVPB Q6H PRN PRN Reason: FEVER OR PAIN Last Admin: 09/20/17 19:19 Dose: 1,000 mg Albuterol/Ipratropium (Duoneb -) 1 amp NEB Q6H PRN PRN Reason: SHORT OF BREATH/WHEEZING Artificial Tears (Artificial Tears Ointment -) 1 applic OU BID [facility] Last Admin: 09/23/17 10:00 Dose: 1 applic Atorvastatin Calcium (Lipitor -) 20 mg PO HS [facility] Last Admin: 09/22/17 22:08 Dose: 20 mg Chlorhexidine Gluconate (Hibiclens For Decolonization -) 1 applic TP HS [facility] Last Admin: 09/22/17 22:09 Dose: 1 applic Chlorhexidine Gluconate (Peridex -) 15 ml MM BID [facility] Last Admin: 09/23/17 10:44 Dose: Not Given Ciprofloxacin (Ciloxan 0.3% Eye Drops --) 2 drop OS Q2H [facility] Last Admin: 09/23/17 11:48 Dose: 2 drop Clotrimazole (Mycelex China's -) 10 mg PO 5XD [facility] Last Admin: 09/23/17 10:44 Dose: Not Given Dexamethasone Sodium Phosphate (Decadron Injection -) 4 mg IVPUSH Q8H-IV [facility] Last Admin: 09/23/17 10:00 Dose: 4 mg Digoxin (Lanoxin Injection -) 0.125 mg IVPUSH Q2D@1000 [facility] Diltiazem HCl (Cardizem -) 90 mg NGT Q6HPO [facility] Haloperidol (Haldol Injection (Fast Acting) -) 5 mg IM Q4H PRN PRN Reason: AGITATION Last Admin: 09/23/17 04:39 Dose: 5 mg Hydralazine HCl (Apresoline Injection -) 10 mg IVPUSH Q6H PRN PRN Reason: HYPERTENSION Last Admin: 09/13/17 21:33 Dose: 10 mg HEPARIN SOD,PORK IN 0.45% NACL (Heparin-1/2ns 25,000 Units/500) 25,000 units in 500 mls @ 20 mls/hr IVPB TITR [facility]; 1,000 UNITS/HR PRN Reason: Protocol Last Titration: 09/22/17 19:05 Dose: 650 units/hr, 13 mls/hr Diltiazem HCl 125 mg/ Dextrose 125 mls @ 5 mls/hr IVPB TITR [facility]; 5 MG/HR PRN Reason: Protocol Last Admin: 09/23/17 11:53 Dose: 15 mg/hr, 15 mls/hr Sodium Chloride (1/2 Normal Saline) 1,000 mls @ 75 mls/hr IV ASDIR [facility] Last Admin: 09/23/17 11:55 Dose: Not Given Insulin Aspart (Novolog Vial Sliding Scale -) 1 vial SQ Q4HPO [facility] PRN Reason: Protocol Last Admin: 09/23/17 11:25 Dose: 2 units Insulin Detemir (Levemir Vial) 15 units SQ HS [facility] Last Admin: 09/22/17 23:31 Dose: 15 units Metoprolol Tartrate (Lopressor Injection -) 5 mg IVPUSH Q4H PRN PRN Reason: HYPERTENSION Last Admin: 09/22/17 08:55 Dose: 5 mg Ondansetron HCl (Zofran Injection) 4 mg IVPUSH Q6H PRN PRN Reason: NAUSEA Pantoprazole Sodium (Protonix Iv) 40 mg IVPUSH DAILY [facility] Trazodone HCl (Desyrel -) 50 mg PO HS [facility] Last Admin: 09/22/17 22:08 Dose: 50 mg cxray RLL infiltrate a/p respiratory failure- suspected aspiration- send cultures, vanco/ zosyn CVA Afib metastatic colon cancer Renal insufficiency diabetes leukocytosis- on steroids vancomycin trough in am d/w ICU service
[2017-09-23] MEDS ORDERED: VANCOMYCIN 1,000 MG VIAL (RESTRICTED TO ID ONLY) IVPB ONE (15:28)
--- NOTE | 2017-09-23 15:29 | PN ---
Progress Note, Physician History of Present Illness: Pt seen and examined at bedside this morning. She remains in the ICU. Pt is lethargic. - Current Medication List Current Medications: Active Medications Acetaminophen (Ofirmev Injection -) 1,000 mg IVPB Q6H PRN PRN Reason: FEVER OR PAIN Last Admin: 09/20/17 19:19 Dose: 1,000 mg Albuterol/Ipratropium (Duoneb -) 1 amp NEB Q6H PRN PRN Reason: SHORT OF BREATH/WHEEZING Artificial Tears (Artificial Tears Ointment -) 1 applic OU BID [facility] Last Admin: 09/23/17 10:00 Dose: 1 applic Atorvastatin Calcium (Lipitor -) 20 mg PO HS [facility] Last Admin: 09/22/17 22:08 Dose: 20 mg Chlorhexidine Gluconate (Hibiclens For Decolonization -) 1 applic TP HS [facility] Last Admin: 09/22/17 22:09 Dose: 1 applic Chlorhexidine Gluconate (Peridex -) 15 ml MM BID [facility] Last Admin: 09/23/17 10:44 Dose: Not Given Ciprofloxacin (Ciloxan 0.3% Eye Drops --) 2 drop OS Q2H [facility] Last Admin: 09/23/17 11:48 Dose: 2 drop Clotrimazole (Mycelex China's -) 10 mg PO 5XD [facility] Last Admin: 09/23/17 10:44 Dose: Not Given Dexamethasone Sodium Phosphate (Decadron Injection -) 2 mg IVPUSH BID [facility] Stop: 09/25/17 10:01 Digoxin (Lanoxin Injection -) 0.125 mg IVPUSH Q2D@1000 [facility] Diltiazem HCl (Cardizem -) 90 mg NGT Q6HPO [facility] Haloperidol (Haldol Injection (Fast Acting) -) 5 mg IM Q4H PRN PRN Reason: AGITATION Last Admin: 09/23/17 04:39 Dose: 5 mg Hydralazine HCl (Apresoline Injection -) 10 mg IVPUSH Q6H PRN PRN Reason: HYPERTENSION Last Admin: 09/13/17 21:33 Dose: 10 mg HEPARIN SOD,PORK IN 0.45% NACL (Heparin-1/2ns 25,000 Units/500) 25,000 units in 500 mls @ 20 mls/hr IVPB TITR [facility]; 1,000 UNITS/HR PRN Reason: Protocol Last Titration: 09/22/17 19:05 Dose: 650 units/hr, 13 mls/hr Diltiazem HCl 125 mg/ Dextrose 125 mls @ 5 mls/hr IVPB TITR [facility]; 5 MG/HR PRN Reason: Protocol Last Admin: 09/23/17 11:53 Dose: 15 mg/hr, 15 mls/hr Sodium Chloride (1/2 Normal Saline) 1,000 mls @ 75 mls/hr IV ASDIR [facility] Last Admin: 09/23/17 11:55 Dose: Not Given Insulin Aspart (Novolog Vial Sliding Scale -) 1 vial SQ Q4HPO [facility] PRN Reason: Protocol Last Admin: 09/23/17 11:25 Dose: 2 units Insulin Detemir (Levemir Vial) 15 units SQ HS [facility] Last Admin: 09/22/17 23:31 Dose: 15 units Metoprolol Tartrate (Lopressor Injection -) 5 mg IVPUSH Q4H PRN PRN Reason: HYPERTENSION Last Admin: 09/22/17 08:55 Dose: 5 mg Ondansetron HCl (Zofran Injection) 4 mg IVPUSH Q6H PRN PRN Reason: NAUSEA Pantoprazole Sodium (Protonix Iv) 40 mg IVPUSH DAILY [facility] Trazodone HCl (Desyrel -) 50 mg PO HS [facility] Last Admin: 09/22/17 22:08 Dose: 50 mg - Objective Vital Signs: Vital Signs Temperature 96.0 F L 09/23/17 10:00 Pulse Rate 112 H 09/23/17 14:00 Respiratory Rate 20 09/23/17 14:05 Blood Pressure 127/80 09/23/17 14:00 O2 Sat by Pulse Oximetry (%) 97 09/23/17 11:27 Constitutional: Yes: Calm Eyes: Yes: Conjunctiva Clear HENT: Yes: Atraumatic Cardiovascular: Yes: S1, S2 Respiratory: Yes: On BiPap Gastrointestinal: Yes: Soft Genitourinary: Yes: Mcdonald Present Musculoskeletal: Yes: Muscle Weakness Edema: Yes Neurological: Yes: Lethargy Labs: CBC, BMP 09/23/17 05:00 09/23/17 11:45 INR, PTT INR 0.96 (0.82-1.09) 09/17/17 06:25 - ....Imaging Chest X-ray: Report Reviewed Problem List - Problems (1) Brain metastasis Code(s): C79.31 - SECONDARY MALIGNANT NEOPLASM OF BRAIN (2) Headache Code(s): R51 - HEADACHE (3) Metastatic colorectal cancer Code(s): C78.5 - SECONDARY MALIGNANT NEOPLASM OF LARGE INTESTINE AND RECTUM (4) SUSAN (acute kidney injury) Code(s): N17.9 - ACUTE KIDNEY FAILURE, UNSPECIFIED (5) Atrial fibrillation Code(s): I48.91 - UNSPECIFIED ATRIAL FIBRILLATION (6) Cancer, colon Code(s): C18.9 - MALIGNANT NEOPLASM OF COLON, UNSPECIFIED Qualifiers: Qualified Code(s): C18.9 - Malignant neoplasm of colon, unspecified (7) Lung mass Code(s): R91.8 - OTHER NONSPECIFIC ABNORMAL FINDING OF LUNG FIELD Assessment/Plan Current Medications Generic Name Dose Route Start Last Admin Trade Name Freq PRN Reason Stop Dose Admin Acetaminophen 1,000 mg 09/15/17 11:50 09/20/17 19:19 Ofirmev Injection - IVPB 1,000 mg Q6H PRN Administration FEVER OR PAIN Albuterol/Ipratropium 1 amp 09/20/17 10:30 Duoneb - NEB Q6H PRN SHORT OF BREATH/WHEEZING Artificial Tears 1 applic 09/15/17 22:00 09/23/17 10:00 Artificial Tears Ointment - OU 1 applic BID [facility] Administration Atorvastatin Calcium 20 mg 09/11/17 22:00 09/22/17 22:08 Lipitor - PO 20 mg HS [facility] Administration Chlorhexidine Gluconate 1 applic 09/15/17 22:00 09/22/17 22:09 Hibiclens For Decolonization - TP 1 applic HS [facility] Administration Chlorhexidine Gluconate 15 ml 09/15/17 22:00 09/23/17 10:44 Peridex - MM Not Given BID [facility] Ciprofloxacin 2 drop 09/16/17 14:45 09/23/17 11:48 Ciloxan 0.3% Eye Drops -- OS 2 drop Q2H [facility] Administration Clotrimazole 10 mg 09/21/17 06:00 09/23/17 10:44 Mycelex China's - PO Not Given 5XD [facility] Dexamethasone Sodium Phosphate 2 mg 09/23/17 22:00 Decadron Injection - IVPUSH 09/25/17 10:01 BID [facility] Digoxin 0.125 mg 09/24/17 10:00 Lanoxin Injection - IVPUSH Q2D@1000 [facility] Diltiazem HCl 90 mg 09/22/17 12:00 Cardizem - NGT Q6HPO [facility] Haloperidol 5 mg 09/22/17 11:33 09/23/17 04:39 Haldol Injection (Fast Acting) - IM 5 mg Q4H PRN Administration AGITATION Hydralazine HCl 10 mg 09/11/17 10:25 09/13/17 21:33 Apresoline Injection - IVPUSH 10 mg Q6H PRN Administration HYPERTENSION HEPARIN SOD,PORK IN 0.45% NACL 25,000 units in 500 mls @ 20 mls/hr 09/12/17 20 :00 09/22/17 19:05 Heparin-1/2ns 25,000 Units/500 IVPB 650 units/hr TITR [facility] 13 mls/hr Protocol Titration 1,000 UNITS/HR Diltiazem HCl 125 mg/ Dextrose 125 mls @ 5 mls/hr 09/22/17 09:15 09/23/17 11: 53 IVPB 15 mg/hr TITR [facility] 15 mls/hr Protocol Administration 5 MG/HR Sodium Chloride 1,000 mls @ 75 mls/hr 09/22/17 11:45 09/23/17 11:55 1/2 Normal Saline IV Not Given ASDIR [facility] Insulin Aspart 1 vial 09/19/17 22:07 09/23/17 11:25 Novolog Vial Sliding Scale - SQ 2 units Q4HPO [facility] Administration Protocol Insulin Detemir 15 units 09/19/17 22:00 09/22/17 23:31 Levemir Vial SQ 15 units [facility] Administration Metoprolol Tartrate 5 mg 09/11/17 10:25 09/22/17 08:55 Lopressor Injection - IVPUSH 5 mg Q4H PRN Administration HYPERTENSION Ondansetron HCl 4 mg 09/11/17 02:02 Zofran Injection IVPUSH Q6H PRN NAUSEA Pantoprazole Sodium 40 mg 09/23/17 14:15 Protonix Iv IVPUSH DAILY [facility] Piperacillin Sod/Tazobactam Sod 3.375 gm 09/23/17 15:30 Zosyn 3.375gm Ivpb (Pre-Docked) IVPB Q8H [facility] Protocol Trazodone HCl 50 mg 09/20/17 22:00 09/22/17 22:08 Desyrel - PO 50 mg HS [facility] Administration Vancomycin HCl 1,250 mg 09/23/17 15:28 Vancomycin 15 mg/kg (1250 mg) 09/23/17 15:29 IVPB ONCE ONE Protocol Impression 1. CKD 2. SUSAN 3. DM 4. htn 5. chol 6. chemo port malfunction 7. a-fib 8. lung mass 9. proteinuria 10. adenocarcinoma 11. CVA 12. acute resp failure 13. hyperkalemia Plan - renal function is improving - can give lasix for overload, will help with potassium - potassium treated medically - cont hypotonic fluid - ICU team discussed intubation, pending daughters agreement - will need lasix with prbc - repeat potassium level - neuro follow up - monitor pulse ox - overall prognosis poor - cont ICU care - will follow Dr Llanos
[2017-09-23] MEDS ORDERED: PIPERACILLIN/TAZOB 3.375 GM/50 ML PRE-DOCKED IVPB SCH (15:30)
[2017-09-23 15:40] LABS: ARTERIAL BLD GAS O2 SATURATION 99.3 % (90-98.9); ARTERIAL BLOOD GAS BASE EXCESS -3.1 meq/l (-2-2); ARTERIAL BLOOD GAS PCO2 45.3 mmHg (35-45); ARTERIAL BLOOD GAS pH 7.31 (7.35-7.45)
[2017-09-23 15:42] LABS: ALLENS TEST POSITIVE
[2017-09-23] MEDS ORDERED: SODIUM POLYSTYRENE SULFONATE 15 GM/60 ML BOTTLE ONE (16:15)
[2017-09-23] MEDS: PANTOPRAZOLE SODIUM 40 MG VIAL IVPUSH SCH (16:37)
[2017-09-23] MEDS ORDERED: VANCOMYCIN 1,250 MG in DEXTROSE 5%-WATER - 250 ML IVPB ONE (17:00)
[2017-09-23] MEDS ORDERED: PT OWN MED DRAWER 7, Y5N ONE ×2 (17:55→21:32)
[2017-09-23] MEDS: PIPERACILLIN/TAZOB 3.375 GM 3.375 GM in DEXTROSE 5%-WATER - 50 ML IVPB SCH (18:07)
[2017-09-23] MEDS ORDERED: FUROSEMIDE 40 MG/4 ML INJECTABLE VIAL ONE (18:40)
[2017-09-23 19:43] LABS: ARTERIAL BLD GAS O2 SATURATION 98.8 % (90-98.9); ARTERIAL BLOOD GAS BASE EXCESS -3.5 meq/l (-2-2); ARTERIAL BLOOD GAS PCO2 31.3 mmHg (35-45); ARTERIAL BLOOD GAS pH 7.42 (7.35-7.45)
[2017-09-23 19:45] LABS: ALLENS TEST POSITIVE
[2017-09-23] MEDS: ATORVASTATIN CA 20 MG TABLET (FP) PO SCH (21:40)
[2017-09-23] MEDS: traZODone HCL 50 MG TABLET (FP) PO SCH (21:40)
[2017-09-23] MEDS ORDERED: INSULIN DETEMIR 100 UNITS/ML MDV SQ ONE (22:03)
[2017-09-23 22:05] LABS: HEMATOCRIT 33.8 % (32.4-45.2); HEMOGLOBIN 10.9 GM/dL (10.7-15.3); MCH 27.2 pg (25.7-33.7); MCHC 32.2 g/dl (32.0-36.0); MEAN CELL VOLUME 84.5 fl (80-96); MEAN PLT VOLUME 8.9 fl (7.5-11.1); PLATELET COUNT 182 K/MM3 (134-434); RDW 16.1 % (11.6-15.6); WHITE BLOOD COUNT 17.3 K/mm3 (4.0-10.0)
[2017-09-23 22:34] LABS: ANION GAP 10 (8-16); BLOOD UREA NITROGEN 81 mg/dL (7-18); CALCIUM 7.6 mg/dL (8.5-10.1); CHLORIDE 120 mmol/L (98-107); CO2 22 mmol/L (21-32); CREATININE 2.1 mg/dL (0.55-1.02); GLUCOSE,RANDOM 118 mg/dL (74-106); POTASSIUM 5.3 mmol/L (3.5-5.1); SODIUM 152 mmol/L (136-145)
[2017-09-23] MEDS: HEPARIN SOD,PORK IN 0.45% NACL 25,000 UNITS/500 ML INFUS.BAG IVPB SCH (22:59)
[2017-09-23] MEDS: CHLORHEXIDINE GLUCONATE 4% CLEANSER FOR DECOLONIZATION TP SCH (23:00)
[2017-09-23] MEDS: INSULIN DETEMIR 100 UNITS/ML MDV SQ SCH (23:01)
[2017-09-24] MEDS: PIPERACILLIN/TAZOB 3.375 GM 3.375 GM in DEXTROSE 5%-WATER - 50 ML IVPB SCH ×3 (01:40→17:39)
[2017-09-24] MEDS: MINERAL OIL/PETROLATUM,WHITE 3.5 GM TUBE OU SCH ×3 (01:41→21:58)
[2017-09-24] MEDS: DEXAMETHASONE SOD PHOSPHATE 4 MG/1 ML VIAL IVPUSH SCH ×3 (01:42→21:58)
[2017-09-24] MEDS: CIPROFLOXACIN 0.3% EYE DROPS 5 ML BOTTLE OS SCH ×11 (01:49→23:24)
[2017-09-24] MEDS: INSULIN SLIDING SCALE (NOVOLOG) 1 VIAL SQ SCH ×6 (05:17→23:22)
[2017-09-24 06:12] LABS: ARTERIAL BLD GAS O2 SATURATION 97.5 % (90-98.9); ARTERIAL BLOOD GAS BASE EXCESS 2.7 meq/l (-2-2); ARTERIAL BLOOD GAS PCO2 30.6 mmHg (35-45); ARTERIAL BLOOD GAS PO2 82.5 mmHg (80-100); ARTERIAL BLOOD GAS pH 7.52 (7.35-7.45)
[2017-09-24 06:13] LABS: ALLENS TEST POSITIVE
[2017-09-24] MEDS: PROPOFOL 1,000,000 MCG/100 ML VIAL IVPB SCH ×2 (06:25→17:10)
[2017-09-24 06:26] LABS: HEMATOCRIT 33.4 % (32.4-45.2); MCH 27.1 pg (25.7-33.7); MEAN CELL VOLUME 82.1 fl (80-96); MEAN PLT VOLUME 8.9 fl (7.5-11.1); PLATELET COUNT 199 K/MM3 (134-434); RBC 4.06 M/mm3 (3.60-5.2); RDW 15.3 % (11.6-15.6)
[2017-09-24 07:16] LABS: CHLORIDE 116 mmol/L (98-107); POTASSIUM 4.8 mmol/L (3.5-5.1); SODIUM 151 mmol/L (136-145)
[2017-09-24 07:24] LABS: ALBUMIN 1.9 g/dl (3.4-5.0); ALK PHOS 73 U/L (45-117); ANION GAP 9 (8-16); BILIRUBIN,TOTAL 0.6 mg/dL (0.2-1.0); BLOOD UREA NITROGEN 76 mg/dL (7-18); CALCIUM 7.9 mg/dL (8.5-10.1); CO2 26 mmol/L (21-32); GLUCOSE,RANDOM 74 mg/dL (74-106); MAGNESIUM 2.5 mg/dL (1.8-2.4); PHOSPHOROUS 3.6 mg/dL (2.5-4.9); SGOT/AST 17 U/L (15-37); SGPT/ALT 22 U/L (12-78); TOT PROT 4.7 g/dl (6.4-8.2)
--- NOTE | 2017-09-24 07:35 | PN ---
Progress Note, Physician Chief Complaint: ID Intubated with NGT feeding Dose of Vancomycin along Pip Tazo - Current Medication List Current Medications: Active Medications Acetaminophen (Ofirmev Injection -) 1,000 mg IVPB Q6H PRN PRN Reason: FEVER OR PAIN Last Admin: 09/20/17 19:19 Dose: 1,000 mg Albuterol/Ipratropium (Duoneb -) 1 amp NEB Q6H PRN PRN Reason: SHORT OF BREATH/WHEEZING Artificial Tears (Artificial Tears Ointment -) 1 applic OU BID [facility] Last Admin: 09/24/17 01:41 Dose: 1 applic Atorvastatin Calcium (Lipitor -) 20 mg PO HS [facility] Last Admin: 09/23/17 21:40 Dose: 20 mg Chlorhexidine Gluconate (Hibiclens For Decolonization -) 1 applic TP HS [facility] Last Admin: 09/23/17 23:00 Dose: 1 applic Chlorhexidine Gluconate (Peridex -) 15 ml MM BID [facility] Last Admin: 09/23/17 21:39 Dose: 15 ml Ciprofloxacin (Ciloxan 0.3% Eye Drops --) 2 drop OS Q2H [facility] Last Admin: 09/24/17 06:20 Dose: 2 drop Dexamethasone Sodium Phosphate (Decadron Injection -) 2 mg IVPUSH BID [facility] Stop: 09/25/17 10:01 Last Admin: 09/24/17 01:42 Dose: 2 mg Digoxin (Lanoxin Injection -) 0.125 mg IVPUSH Q2D@1000 [facility] Diltiazem HCl (Cardizem -) 90 mg NGT Q6HPO [facility] Haloperidol (Haldol Injection (Fast Acting) -) 5 mg IM Q4H PRN PRN Reason: AGITATION Last Admin: 09/23/17 04:39 Dose: 5 mg Hydralazine HCl (Apresoline Injection -) 10 mg IVPUSH Q6H PRN PRN Reason: HYPERTENSION Last Admin: 09/13/17 21:33 Dose: 10 mg HEPARIN SOD,PORK IN 0.45% NACL (Heparin-1/2ns 25,000 Units/500) 25,000 units in 500 mls @ 20 mls/hr IVPB TITR [facility]; 1,000 UNITS/HR PRN Reason: Protocol Last Admin: 09/23/17 22:59 Dose: 650 units/hr, 13 mls/hr Diltiazem HCl 125 mg/ Dextrose 125 mls @ 5 mls/hr IVPB TITR [facility]; 5 MG/HR PRN Reason: Protocol Last Admin: 09/23/17 11:53 Dose: 15 mg/hr, 15 mls/hr Sodium Chloride (1/2 Normal Saline) 1,000 mls @ 75 mls/hr IV ASDIR [facility] Last Admin: 09/23/17 11:55 Dose: Not Given Piperacillin Sod/Tazobactam (Sod 3.375 gm/ Dextrose) 50 mls @ 100 mls/hr IVPB Q8H-IV [facility] Last Admin: 09/24/17 01:40 Dose: 100 mls/hr Propofol (Diprivan -) 1,000,000 mcg in 100 mls @ 21.348 mls/hr IVPB TITR [facility]; 40 MCG/KG/MIN PRN Reason: Protocol Last Admin: 09/24/17 06:25 Dose: 20 mcg/kg/min, 10.674 mls/hr Insulin Aspart (Novolog Vial Sliding Scale -) 1 vial SQ Q4HPO [facility] PRN Reason: Protocol Last Admin: 09/24/17 06:22 Dose: Not Given Insulin Detemir (Levemir Vial) 15 units SQ HS [facility] Last Admin: 09/23/17 23:01 Dose: 7.5 unit Metoprolol Tartrate (Lopressor Injection -) 5 mg IVPUSH Q4H PRN PRN Reason: HYPERTENSION Last Admin: 09/22/17 08:55 Dose: 5 mg Ondansetron HCl (Zofran Injection) 4 mg IVPUSH Q6H PRN PRN Reason: NAUSEA Pantoprazole Sodium (Protonix Iv) 40 mg IVPUSH DAILY [facility] Last Admin: 09/23/17 16:37 Dose: Not Given Trazodone HCl (Desyrel -) 50 mg PO HS [facility] Last Admin: 09/23/17 21:40 Dose: 50 mg - Objective Vital Signs: Vital Signs Temperature 98.7 F 09/24/17 06:00 Pulse Rate 93 H 09/24/17 06:00 Respiratory Rate 16 09/24/17 06:34 Blood Pressure 136/89 09/24/17 06:00 O2 Sat by Pulse Oximetry (%) 100 09/23/17 21:00 Constitutional: Yes: Well Nourished Cardiovascular: Yes: Regular Rate and Rhythm, S1, S2. No: Murmur Respiratory: Yes: WNL, Regular, CTA Bilaterally Gastrointestinal: Yes: WNL, Normal Bowel Sounds. No: Tenderness, Tenderness, Rebound Extremities: No: Cold, Cool, Cyanosis Edema: No Labs: CBC, BMP 09/24/17 05:10 INR, PTT INR 0.96 (0.82-1.09) 09/17/17 06:25 Assessment/Plan Microbiology 09/15/17 12:52 Blood - Peripheral Venous Blood Culture - Final NO GROWTH AFTER 5 DAYS INCUBATION 09/15/17 12:45 Blood - Peripheral Venous Blood Culture - Final NO GROWTH AFTER 5 DAYS INCUBATION 09/15/17 12:00 Urine - Urine Mcdonald Urine Culture - Final NO GROWTH OBTAINED 09/15/17 12:00 Sputum - Endotrachea Suction/Ventilator Gram Stain - Final 09/15/17 12:00 Sputum - Endotrachea Suction/Ventilator Sputum Culture - Final Yeast Like Organism Laboratory Tests 09/23/17 09/24/17 09/24/17 21:50 05:10 05:10 WBC 15.0 H Hgb 11.0 Plt Count 199 ABG pH ABG pCO2 at Pt Temp ABG pO2 at Pt Temp Oxygen Flow Rate Sodium 152 H Potassium 5.3 H BUN 81 H Creatinine 2.1 H Random Vancomycin Pending 09/24/17 09/24/17 05:10 06:02 WBC Hgb Plt Count ABG pH 7.52 H ABG pCO2 at Pt Temp 30.6 L ABG pO2 at Pt Temp 82.5 D Oxygen Flow Rate 50% Sodium Potassium BUN Pending Creatinine Pending Random Vancomycin Assessment Respiratory failure Metastatic cancer Pneumonia DM SUSAN Plan Continue current antibiotic Check vanco level Cultures pending Sergo HIGUERA
--- NOTE | 2017-09-24 08:07 | PN ---
Physical Exam: SUBJECTIVE: Patient seen and examined. Reintubated at 1400 yesterday (09/23/17) for increasing lethargy, and worsening hypercapneic resp failure. Was noted to have increasing secretions and and infiltrate on CXR. ID was reconsulted. OBJECTIVE: Vital Signs Period Temp Pulse Resp BP Sys/Mcdaniel Pulse Ox Last 24 Hr 96.0 F-99.2 F 85-112 11-20 115-156/57-89 97-100 Vital Signs Temp 97.5 F L 09/24/17 10:00 Pulse 76 09/24/17 10:28 Resp 16 09/24/17 13:37 BP 148/88 09/24/17 10:00 Pulse Ox 100 09/23/17 21:00 Intake & Output 09/23/17 09/24/17 09/24/17 23:59 11:59 23:59 Intake Total 440 809 Output Total 1000 1500 Balance -560 -691 Weight 88.587 kg Intake: IV 440 759 1/2 Normal Saline 1,000 280 500 ml @ 75 mls/hr IV ASDIR [facility] Rx#:[id number] Cardizem Injection - 125 40 35 mg In D5w - 100 ml @ 5 MG /HR 5 mls/hr IVPB TITR [facility] Rx#:[id number] DIPRIVAN - 1,000,000 mcg 68 119 In 100 ml @ 40 MCG/KG/MIN 21.348 mls/hr IVPB TITR [facility] Rx#:[id number] HEPARIN-1/2NS 25,000 52 105 UNITS/500 25,000 units In 500 ml @ 1,000 UNITS/HR 20 mls/hr IVPB TITR [facility] Rx#:[id number] IVPB 50 Output: Urine 1000 1500 [place] 500 Void 500 1500 Other: Voiding Method Indwelling Catheter Weight Measurement Method Built in [facility] GENERAL: The patient is intubated and sedated. - CIX-AY-FT-16, TV-450, fi02-50% , 04/12 HEAD: Healing L eye bruise. EYES: Bilaterally reacting pupils. Improving L eye hyphema ENT: Bipap in place-11/6 this am, NGT in place NECK: supple. LUNGS: Vesicular breath sounds equal, fine creps >R, with upper airway intermittent transmitted sounds HEART: Less tachycardic, S1, S2 . ABDOMEN: Soft, nontender, nondistended, normoactive bowel sounds, EXTREMITIES: 2+ pulses, warm, well-perfused, no edema, SCDs. NEUROLOGICAL: Awake, Agitated, moving all limbs PSYCH: Sedated Lines: NGT, ETT, Bateman, LUE peripheral line ABG Results ABG pH 7.52 (7.35-7.45) H 09/24/17 06:02 ABG pCO2 at Pt Temp 30.6 mmHg (35-45) L 09/24/17 06:02 ABG pO2 at Pt Temp 82.5 mmHg (80-100) D 09/24/17 06:02 ABG HCO3 24.9 meq/L (22-26) 09/24/17 06:02 ABG O2 Sat (Measured) 97.5 % (90-98.9) 09/24/17 06:02 ABG O2 Content 15.0 % vol (15-22) 09/24/17 06:02 ABG Base Excess 2.7 meq/l (-2-2) H 09/24/17 06:02 Laboratory Results - last 24 hr Microbiology 09/15/17 12:00 Sputum - Endotrachea Suction/Ventilator Gram Stain - Final 09/15/17 12:00 Sputum - Endotrachea Suction/Ventilator Sputum Culture - Final Yeast Like Organism 09/23/17 09/23/17 09/23/17 05:00 10:58 11:45 WBC 20.5 H RBC 2.72 L Hgb 7.0 L Hct 23.0 L MCV 84.4 MCH 25.5 L MCHC 30.3 L RDW 18.2 H Plt Count 184 D MPV 10.2 D Total Counted 100 Neutrophils % No Result Required. Neutrophils % (Manual) 94.0 H* Lymphocytes % No Result Required. Lymphocytes % (Manual) 5.0 L D Monocytes % (Manual) 1 L Platelet Estimate Adequate Puncture Site ABG pH ABG pCO2 at Pt Temp ABG pO2 at Pt Temp ABG HCO3 ABG O2 Sat (Measured) ABG O2 Content ABG Base Excess Addy Test O2 Delivery Device Oxygen Flow Rate Vent Mode Vent Rate Mechanical Rate PEEP Pressure Support Vent Sodium 152 H Potassium 5.8 H Chloride 120 H Carbon Dioxide 25 Anion Gap 7 L BUN 86 H Creatinine 2.1 H Creat Clearance w eGFR POC Glucometer 190.54365 Random Glucose 173 H Calcium 7.3 L Phosphorus Magnesium Total Bilirubin AST ALT Alkaline Phosphatase Total Protein Albumin Blood Type Antibody Screen Crossmatch 09/23/17 09/23/17 09/23/17 11:45 13:14 15:40 WBC RBC Hgb Hct MCV MCH MCHC RDW Plt Count MPV Total Counted Neutrophils % Neutrophils % (Manual) Lymphocytes % Lymphocytes % (Manual) Monocytes % (Manual) Platelet Estimate Puncture Site Right radial Right radial ABG pH 7.17 L* 7.31 L ABG pCO2 at Pt Temp 66.8 H* D 45.3 H D ABG pO2 at Pt Temp 75.6 L 210.0 H* ABG HCO3 23.4 22.3 ABG O2 Sat (Measured) 92.6 99.3 H ABG O2 Content 8.9 L* 10.3 L ABG Base Excess -4.6 L -3.1 L Addy Test Positive Positive O2 Delivery Device Oxygen Flow Rate Yes Yes Vent Mode Vent Rate Mechanical Rate PEEP Pressure Support Vent Sodium Potassium Chloride Carbon Dioxide Anion Gap BUN Creatinine Creat Clearance w eGFR POC Glucometer Random Glucose Calcium Phosphorus Magnesium Total Bilirubin AST ALT Alkaline Phosphatase Total Protein Albumin Blood Type O POSITIVE Antibody Screen Negative Crossmatch See Detail 09/23/17 09/23/17 09/23/17 15:42 18:17 19:30 WBC RBC Hgb Hct MCV MCH MCHC RDW Plt Count MPV Total Counted Neutrophils % Neutrophils % (Manual) Lymphocytes % Lymphocytes % (Manual) Monocytes % (Manual) Platelet Estimate Puncture Site Right radial ABG pH 7.42 ABG pCO2 at Pt Temp 31.3 L D ABG pO2 at Pt Temp 114.0 H D ABG HCO3 19.9 L ABG O2 Sat (Measured) 98.8 ABG O2 Content 12.7 L ABG Base Excess -3.5 L Addy Test Positive O2 Delivery Device Vent Oxygen Flow Rate 50 Vent Mode Ac Vent Rate 16 Mechanical Rate Y PEEP 5.0 Pressure Support Vent 450 Sodium Potassium Chloride Carbon Dioxide Anion Gap BUN Creatinine Creat Clearance w eGFR POC Glucometer 201.00144 201.03147 Random Glucose Calcium Phosphorus Magnesium Total Bilirubin AST ALT Alkaline Phosphatase Total Protein Albumin Blood Type Antibody Screen Crossmatch 09/23/17 09/23/17 09/23/17 21:50 21:50 22:01 WBC 17.3 H RBC 4.00 D Hgb 10.9 D Hct 33.8 D MCV 84.5 MCH 27.2 MCHC 32.2 RDW 16.1 H D Plt Count 182 MPV 8.9 D Total Counted Neutrophils % Neutrophils % (Manual) Lymphocytes % Lymphocytes % (Manual) Monocytes % (Manual) Platelet Estimate Puncture Site ABG pH ABG pCO2 at Pt Temp ABG pO2 at Pt Temp ABG HCO3 ABG O2 Sat (Measured) ABG O2 Content ABG Base Excess Addy Test O2 Delivery Device Oxygen Flow Rate Vent Mode Vent Rate Mechanical Rate PEEP Pressure Support Vent Sodium 152 H Potassium 5.3 H Chloride 120 H Carbon Dioxide 22 Anion Gap 10 BUN 81 H Creatinine 2.1 H Creat Clearance w eGFR POC Glucometer 133.63417 Random Glucose 118 H Calcium 7.6 L Phosphorus Magnesium Total Bilirubin AST ALT Alkaline Phosphatase Total Protein Albumin Blood Type Antibody Screen Crossmatch 09/24/17 09/24/17 09/24/17 05:10 05:10 06:02 WBC 15.0 H RBC 4.06 Hgb 11.0 Hct 33.4 MCV 82.1 MCH 27.1 MCHC 33.0 RDW 15.3 Plt Count 199 MPV 8.9 Total Counted Neutrophils % No Result Required. Neutrophils % (Manual) Lymphocytes % No Result Required. Lymphocytes % (Manual) Monocytes % (Manual) Platelet Estimate Puncture Site Right radial ABG pH 7.52 H ABG pCO2 at Pt Temp 30.6 L ABG pO2 at Pt Temp 82.5 D ABG HCO3 24.9 ABG O2 Sat (Measured) 97.5 ABG O2 Content 15.0 ABG Base Excess 2.7 H Addy Test Positive O2 Delivery Device Mech vent Oxygen Flow Rate 50% Vent Mode A/c Vent Rate 16 Mechanical Rate Yes PEEP 5.0 Pressure Support Vent 450 Sodium 151 H Potassium 4.8 Chloride 116 H Carbon Dioxide 26 Anion Gap 9 BUN 76 H Creatinine 2.0 H Creat Clearance w eGFR 25.42 POC Glucometer Random Glucose 74 Calcium 7.9 L Phosphorus 3.6 D Magnesium 2.5 H Total Bilirubin 0.6 D AST 17 D ALT 22 D Alkaline Phosphatase 73 Total Protein 4.7 L Albumin 1.9 L Blood Type Antibody Screen Crossmatch Active Medications Generic Name Dose Route Start Last Admin Trade Name Freq PRN Reason Stop Dose Admin Acetaminophen 1,000 mg 09/15/17 11:50 09/20/17 19:19 Ofirmev Injection - IVPB 1,000 mg Q6H PRN Administration FEVER OR PAIN Albuterol/Ipratropium 1 amp 09/20/17 10:30 Duoneb - NEB Q6H PRN SHORT OF BREATH/WHEEZING Artificial Tears 1 applic 09/15/17 22:00 09/24/17 01:41 Artificial Tears Ointment - OU 1 applic BID [facility] Administration Atorvastatin Calcium 20 mg 09/11/17 22:00 09/23/17 21:40 Lipitor - PO 20 mg HS [facility] Administration Chlorhexidine Gluconate 1 applic 09/15/17 22:00 09/23/17 23:00 Hibiclens For Decolonization - TP 1 applic HS [facility] Administration Chlorhexidine Gluconate 15 ml 09/15/17 22:00 09/23/17 21:39 Peridex - MM 15 ml BID [facility] Administration Ciprofloxacin 2 drop 09/16/17 14:45 09/24/17 06:20 Ciloxan 0.3% Eye Drops -- OS 2 drop Q2H [facility] Administration Dexamethasone Sodium Phosphate 2 mg 09/23/17 22:00 09/24/17 01:42 Decadron Injection - IVPUSH 09/25/17 10:01 2 mg BID [facility] Administration Digoxin 0.125 mg 09/24/17 10:00 Lanoxin Injection - IVPUSH Q2D@1000 [facility] Diltiazem HCl 90 mg 09/22/17 12:00 Cardizem - NGT Q6HPO [facility] Haloperidol 5 mg 09/22/17 11:33 09/23/17 04:39 Haldol Injection (Fast Acting) - IM 5 mg Q4H PRN Administration AGITATION Hydralazine HCl 10 mg 09/11/17 10:25 09/13/17 21:33 Apresoline Injection - IVPUSH 10 mg Q6H PRN Administration HYPERTENSION HEPARIN SOD,PORK IN 0.45% NACL 25,000 units in 500 mls @ 20 mls/hr 09/12/17 20 :00 09/23/17 22:59 Heparin-1/2ns 25,000 Units/500 IVPB 650 units/hr TITR [facility] 13 mls/hr Protocol Administration 1,000 UNITS/HR Diltiazem HCl 125 mg/ Dextrose 125 mls @ 5 mls/hr 09/22/17 09:15 09/23/17 11: 53 IVPB 15 mg/hr TITR [facility] 15 mls/hr Protocol Administration 5 MG/HR Sodium Chloride 1,000 mls @ 75 mls/hr 09/22/17 11:45 09/23/17 11:55 1/2 Normal Saline IV Not Given ASDIR [facility] Piperacillin Sod/Tazobactam 50 mls @ 100 mls/hr 09/23/17 18:00 09/24/17 01:40 Sod 3.375 gm/ Dextrose IVPB 100 mls/hr Q8H-IV [facility] Administration Propofol 1,000,000 mcg in 100 mls @ 21.348 mls/hr 09/23/17 17:30 09/24/17 06: 25 Diprivan - IVPB 20 mcg/kg/min TITR [facility] 10.674 mls/hr Protocol Administration 40 MCG/KG/MIN Insulin Aspart 1 vial 09/19/17 22:07 09/24/17 06:22 Novolog Vial Sliding Scale - SQ Not Given Q4HPO [facility] Protocol Insulin Detemir 15 units 09/19/17 22:00 09/23/17 23:01 Levemir Vial SQ 7.5 unit HS [facility] Administration Metoprolol Tartrate 5 mg 09/11/17 10:25 09/22/17 08:55 Lopressor Injection - IVPUSH 5 mg Q4H PRN Administration HYPERTENSION Ondansetron HCl 4 mg 09/11/17 02:02 Zofran Injection IVPUSH Q6H PRN NAUSEA Pantoprazole Sodium 40 mg 09/23/17 14:15 09/23/17 16:37 Protonix Iv IVPUSH Not Given DAILY [facility] Trazodone HCl 50 mg 09/20/17 22:00 09/23/17 21:40 Desyrel - PO 50 mg HS [facility] Administration ASSESSMENT/PLAN: 62 yo F with PMHx of HTN, paroxysmal atrial fibrillation on apixaban, DM, HLD, CKD, GERD and colon CA s/p colectomy 2011 with mets to lung admitted to ICU for AMS now reintubated x 3 (09/23/17) Neuro/opth:. AMS- lethargic yesterday and re-intubated to protect airway Sedated and intubated- Actively moving all limbs when sedation was turned off R/O critical illness polyneuropathy AMS 2/2 to cerebral edema from multiple acute infarcts with background Afib L eye hyphema- cipro ointment OS Q2H Haldol PRN 5mg im PRN D/W daughter about re-intubation Trazodone- 50mg PO HS Respiratory: Acute hypercapneic hypoxic resp failure- reintubated x 3 (09/23/17)- VCV-AC-RR -16, TV-450, fi02-50%, 8/5 respiratory alkalosis noted this am- vent settings adjusted- to RR-12, TV- 400 (to reduce hyperventilation with CO2 blow off) Repeat ABGs Keep sedated for today, to consider sedation vacation tomorrow CXR Sputum cultures- follow Renal: SUSAN R/O CKD Hyperkalemia- improved Received Kayexelate 30mg NGT stat yesterday 1/2 Normal saline @75/hr Received Albuterol sseg-6lgcf-8.5% stat yesterday hypernatremia- Hyperphosphatemia Hypermagnesemia CMP,Mg, Phosphorus Resume Tube feeds- Start nepro feeds -per Dr Llanos (hyperkalemia) at 30ml/hr - per Anne Monitor Metabolic/Endocrine/GI/Lines: DM bgm stop Glucerna 1.5 Start nepro feeds -per Dr Llanos (hyperkalemia) at 30ml/hr - per Anne Hypernatremic Stopped octreotide gtt yesterday Resume iv protonix 40mg push Cont levemir- 15u Cont ISS Hyperkalemia Cont 1/2 NS @75ml/hr Lines: ETT (09/23/17), NGT, RUE peripheral line, LUE periph line, bateman Cardio: Htn HLD Still tachycardic- Lopressor as needed Continue heparin drip for now to transition probably to eliquis when stable- per cardiology iv metoprolol prn -5mg Digoxin 0.125 iv cardizem gtt@5mls/hr Iv hydrazaline 10mg ivpush Digoxin level PTT Hemonc: Anemia No evidence of UGI bleed seen Colorectal cancer with lung mets Hgb -11.00 Received 2U PRBCs with iv lasix between 2 units yesterday ID: Acute sepsis could be 2/2 to PNA with L lung infiltrate CXR Restarted on Zosyn-3.35 (09/23/17) Received Vancomycin ((09/23/17) Cont Cipro eye drops Cont artificial tears Monitor daily CXR Prophylaxis: on heparin gtt protonix drip @14.5/hr Heel pads Dispo: Monitor in ICU Visit type - Emergency Visit Emergency Visit: Yes ED Registration Date: 09/10/17 Care time: The patient presented to the Emergency Department on the above date and was hospitalized for further evaluation of their emergent condition. - New Patient This patient is new to me today: No - Critical Care Critical Care patient: Yes Total Critical Care Time (in minutes): 40 Critical Care Statement: The care of this patient involved high complexity decision making to prevent further life threatening deterioration of the patient 's condition and/or to evaluate & treat vital organ system(s) failure or risk of failure. - Discharge Referral Referred to [facility] Med P.C.: No
[2017-09-24] MEDS ORDERED: PROPOFOL 1,000,000 MCG/100 ML VIAL ONE ×2 (08:38→15:46)
[2017-09-24] MEDS ORDERED: PT OWN MED DRAWER 7, Y5N ONE ×3 (08:58→21:08)
[2017-09-24] MEDS ORDERED: HEMOQUE TEST 1 EACH EACH ONE (09:13)
--- NOTE | 2017-09-24 09:17 | PN ---
Progress Note, Physician History of Present Illness: intubated - Current Medication List Current Medications: Active Medications Acetaminophen (Ofirmev Injection -) 1,000 mg IVPB Q6H PRN PRN Reason: FEVER OR PAIN Last Admin: 09/20/17 19:19 Dose: 1,000 mg Albuterol/Ipratropium (Duoneb -) 1 amp NEB Q6H PRN PRN Reason: SHORT OF BREATH/WHEEZING Artificial Tears (Artificial Tears Ointment -) 1 applic OU BID [facility] Last Admin: 09/24/17 01:41 Dose: 1 applic Atorvastatin Calcium (Lipitor -) 20 mg PO HS [facility] Last Admin: 09/23/17 21:40 Dose: 20 mg Chlorhexidine Gluconate (Hibiclens For Decolonization -) 1 applic TP HS [facility] Last Admin: 09/23/17 23:00 Dose: 1 applic Chlorhexidine Gluconate (Peridex -) 15 ml MM BID [facility] Last Admin: 09/23/17 21:39 Dose: 15 ml Ciprofloxacin (Ciloxan 0.3% Eye Drops --) 2 drop OS Q2H [facility] Last Admin: 09/24/17 06:20 Dose: 2 drop Dexamethasone Sodium Phosphate (Decadron Injection -) 2 mg IVPUSH BID [facility] Stop: 09/25/17 10:01 Last Admin: 09/24/17 01:42 Dose: 2 mg Digoxin (Lanoxin Injection -) 0.125 mg IVPUSH Q2D@1000 [facility] Diltiazem HCl (Cardizem -) 90 mg NGT Q6HPO [facility] Haloperidol (Haldol Injection (Fast Acting) -) 5 mg IM Q4H PRN PRN Reason: AGITATION Last Admin: 09/23/17 04:39 Dose: 5 mg Hydralazine HCl (Apresoline Injection -) 10 mg IVPUSH Q6H PRN PRN Reason: HYPERTENSION Last Admin: 09/13/17 21:33 Dose: 10 mg HEPARIN SOD,PORK IN 0.45% NACL (Heparin-1/2ns 25,000 Units/500) 25,000 units in 500 mls @ 20 mls/hr IVPB TITR [facility]; 1,000 UNITS/HR PRN Reason: Protocol Last Admin: 09/23/17 22:59 Dose: 650 units/hr, 13 mls/hr Diltiazem HCl 125 mg/ Dextrose 125 mls @ 5 mls/hr IVPB TITR [facility]; 5 MG/HR PRN Reason: Protocol Last Admin: 09/23/17 11:53 Dose: 15 mg/hr, 15 mls/hr Sodium Chloride (1/2 Normal Saline) 1,000 mls @ 75 mls/hr IV ASDIR [facility] Last Admin: 09/23/17 11:55 Dose: Not Given Piperacillin Sod/Tazobactam (Sod 3.375 gm/ Dextrose) 50 mls @ 100 mls/hr IVPB Q8H-IV [facility] Last Admin: 09/24/17 01:40 Dose: 100 mls/hr Propofol (Diprivan -) 1,000,000 mcg in 100 mls @ 21.348 mls/hr IVPB TITR [facility]; 40 MCG/KG/MIN PRN Reason: Protocol Last Admin: 09/24/17 06:25 Dose: 20 mcg/kg/min, 10.674 mls/hr Insulin Aspart (Novolog Vial Sliding Scale -) 1 vial SQ Q4HPO [facility] PRN Reason: Protocol Last Admin: 09/24/17 06:22 Dose: Not Given Insulin Detemir (Levemir Vial) 15 units SQ HS [facility] Last Admin: 09/23/17 23:01 Dose: 7.5 unit Metoprolol Tartrate (Lopressor Injection -) 5 mg IVPUSH Q4H PRN PRN Reason: HYPERTENSION Last Admin: 09/22/17 08:55 Dose: 5 mg Ondansetron HCl (Zofran Injection) 4 mg IVPUSH Q6H PRN PRN Reason: NAUSEA Pantoprazole Sodium (Protonix Iv) 40 mg IVPUSH DAILY [facility] Last Admin: 09/23/17 16:37 Dose: Not Given Trazodone HCl (Desyrel -) 50 mg PO HS [facility] Last Admin: 09/23/17 21:40 Dose: 50 mg - Objective Vital Signs: Vital Signs Temperature 98.7 F 09/24/17 06:00 Pulse Rate 93 H 09/24/17 06:00 Respiratory Rate 16 09/24/17 08:57 Blood Pressure 136/89 09/24/17 06:00 O2 Sat by Pulse Oximetry (%) 100 09/23/17 21:00 Cardiovascular: Yes: S1, S2 Respiratory: Yes: Mechanically Ventilated, Rhonchi Gastrointestinal: Yes: Normal Bowel Sounds, Soft Labs: CBC, BMP 09/24/17 05:10 09/24/17 05:10 INR, PTT INR 0.96 (0.82-1.09) 09/17/17 06:25 Problem List - Problems (1) Respiratory failure Assessment/Plan: PER ICU TEAM ON VENT NEBS CXR ABX Code(s): J96.90 - RESPIRATORY FAILURE, UNSP, UNSP W HYPOXIA OR HYPERCAPNIA (2) Brain metastasis Assessment/Plan: NEURO CONSULT NOTED Code(s): C79.31 - SECONDARY MALIGNANT NEOPLASM OF BRAIN (3) CVA (cerebral vascular accident) Assessment/Plan: ABOVE--SEE NEURO CONSULT CT WITH HYDROCEPHALUS NS AND NEURO ON CASE FURTHER PLAN PER NEURO- AC Code(s): I63.9 - CEREBRAL INFARCTION, UNSPECIFIED (4) Metastatic colorectal cancer Code(s): C78.5 - SECONDARY MALIGNANT NEOPLASM OF LARGE INTESTINE AND RECTUM (5) Atrial fibrillation Assessment/Plan: ON CARDIZEM-METOPROLOL AND DIG ON HEPARIN CARDIO ON BOARD Code(s): I48.91 - UNSPECIFIED ATRIAL FIBRILLATION (6) Diabetes Assessment/Plan: BGM Code(s): E11.9 - TYPE 2 DIABETES MELLITUS WITHOUT COMPLICATIONS
[2017-09-24] MEDS: DIGOXIN 0.5 MG/2 ML AMPUL IVPUSH SCH (10:12)
[2017-09-24] MEDS: CHLORHEXIDINE GLUCONATE 0.12% 15ML CUP MM SCH ×2 (10:21→23:22)
[2017-09-24] MEDS: PANTOPRAZOLE SODIUM 40 MG VIAL IVPUSH SCH (10:24)
[2017-09-24] MEDS: DILTIAZEM INJECTION 125 MG in DEXTROSE 5%-WATER - 100 ML IVPB SCH (10:28)
--- NOTE | 2017-09-24 10:30 | PN ---
Progress Note, Physician History of Present Illness: NEPHROLOGY patient seen and examined at bedside intubated yesterday afternoon received 2 units PRBCs with lasix hyperkalemia improved - Current Medication List Current Medications: Active Medications Acetaminophen (Ofirmev Injection -) 1,000 mg IVPB Q6H PRN PRN Reason: FEVER OR PAIN Last Admin: 09/20/17 19:19 Dose: 1,000 mg Albuterol/Ipratropium (Duoneb -) 1 amp NEB Q6H PRN PRN Reason: SHORT OF BREATH/WHEEZING Artificial Tears (Artificial Tears Ointment -) 1 applic OU BID [facility] Last Admin: 09/24/17 10:21 Dose: 1 applic Atorvastatin Calcium (Lipitor -) 20 mg PO HS [facility] Last Admin: 09/23/17 21:40 Dose: 20 mg Chlorhexidine Gluconate (Hibiclens For Decolonization -) 1 applic TP HS [facility] Last Admin: 09/23/17 23:00 Dose: 1 applic Chlorhexidine Gluconate (Peridex -) 15 ml MM BID [facility] Last Admin: 09/24/17 10:21 Dose: 15 ml Ciprofloxacin (Ciloxan 0.3% Eye Drops --) 2 drop OS Q2H [facility] Last Admin: 09/24/17 08:00 Dose: 2 drop Dexamethasone Sodium Phosphate (Decadron Injection -) 2 mg IVPUSH BID [facility] Stop: 09/25/17 10:01 Last Admin: 09/24/17 10:16 Dose: 2 mg Digoxin (Lanoxin Injection -) 0.125 mg IVPUSH Q2D@1000 [facility] Last Admin: 09/24/17 10:12 Dose: 0.125 mg Diltiazem HCl (Cardizem -) 90 mg NGT Q6HPO [facility] Haloperidol (Haldol Injection (Fast Acting) -) 5 mg IM Q4H PRN PRN Reason: AGITATION Last Admin: 09/23/17 04:39 Dose: 5 mg Hydralazine HCl (Apresoline Injection -) 10 mg IVPUSH Q6H PRN PRN Reason: HYPERTENSION Last Admin: 09/13/17 21:33 Dose: 10 mg HEPARIN SOD,PORK IN 0.45% NACL (Heparin-1/2ns 25,000 Units/500) 25,000 units in 500 mls @ 20 mls/hr IVPB TITR [facility]; 1,000 UNITS/HR PRN Reason: Protocol Last Admin: 09/23/17 22:59 Dose: 650 units/hr, 13 mls/hr Diltiazem HCl 125 mg/ Dextrose 125 mls @ 5 mls/hr IVPB TITR [facility]; 5 MG/HR PRN Reason: Protocol Last Admin: 09/23/17 11:53 Dose: 15 mg/hr, 15 mls/hr Sodium Chloride (1/2 Normal Saline) 1,000 mls @ 75 mls/hr IV ASDIR [facility] Last Admin: 09/23/17 11:55 Dose: Not Given Piperacillin Sod/Tazobactam (Sod 3.375 gm/ Dextrose) 50 mls @ 100 mls/hr IVPB Q8H-IV [facility] Last Admin: 09/24/17 10:23 Dose: 100 mls/hr Propofol (Diprivan -) 1,000,000 mcg in 100 mls @ 21.348 mls/hr IVPB TITR [facility]; 40 MCG/KG/MIN PRN Reason: Protocol Last Admin: 09/24/17 06:25 Dose: 20 mcg/kg/min, 10.674 mls/hr Insulin Aspart (Novolog Vial Sliding Scale -) 1 vial SQ Q4HPO [facility] PRN Reason: Protocol Last Admin: 09/24/17 06:22 Dose: Not Given Insulin Detemir (Levemir Vial) 15 units SQ HS [facility] Last Admin: 09/23/17 23:01 Dose: 7.5 unit Metoprolol Tartrate (Lopressor Injection -) 5 mg IVPUSH Q4H PRN PRN Reason: HYPERTENSION Last Admin: 09/22/17 08:55 Dose: 5 mg Ondansetron HCl (Zofran Injection) 4 mg IVPUSH Q6H PRN PRN Reason: NAUSEA Pantoprazole Sodium (Protonix Iv) 40 mg IVPUSH DAILY [facility] Last Admin: 09/24/17 10:24 Dose: 40 mg Trazodone HCl (Desyrel -) 50 mg PO HS [facility] Last Admin: 09/23/17 21:40 Dose: 50 mg - Objective Vital Signs: Vital Signs Temperature 98.7 F 09/24/17 06:00 Pulse Rate 76 09/24/17 10:12 Respiratory Rate 16 09/24/17 08:57 Blood Pressure 157/90 09/24/17 08:00 O2 Sat by Pulse Oximetry (%) 100 09/23/17 21:00 Constitutional: Yes: No Distress Neck: Yes: Supple Cardiovascular: Yes: Regular Rate and Rhythm Respiratory: Yes: Intubated Gastrointestinal: Yes: Soft Edema: LLE: Trace, RLE: Trace Labs: CBC, BMP 09/24/17 05:10 09/24/17 05:10 INR, PTT INR 0.96 (0.82-1.09) 09/17/17 06:25 - ....Imaging Chest X-ray: Report Reviewed, Image Reviewed Assessment/Plan 62F with multiple medical problems in ICU intubated s/p multiple brain infarcts. Problem list HTN HLD CKD SUSAN on CKD DM DKA-resolved Atrial fibrillation lung mass CVA Hyperkalemia proteinuria acute respiratory failure adenocarcinoma Chemoport malfunction s/p removal anemia s/p 2units PRBCs with lasix Hyperkalemia resolved potassium now 4.8 Creatinine 2.0-slightly improved from yesterday can resume hypotonic fluids continue to monitor electrolytes neuro following continue ICU care transfuse PRN monitor pulse ox continue to trend creatinine renally dose all medications avoid nephrotoxic drugs nepro feeds with free water Case discussed with Dr. Llanos
--- NOTE | 2017-09-24 12:38 | PN ---
Teaching Attending Note Name of Resident: Lisa Mott ATTENDING PHYSICIAN STATEMENT I saw and evaluated the patient. I reviewed the resident's note and discussed the case with the resident. I agree with the resident's findings and plan as documented. SUBJECTIVE: Pt seen and examined in the ICU. Remains intubated, sedated. Heart rates better controlled, now in sinus rhythm. Transfused 2 units PRBC yesterday. OBJECTIVE: Last Vital Signs Temp Pulse Resp BP Pulse Ox 97.5 F L 76 16 148/88 100 09/24/17 10:00 09/24/17 10:28 09/24/17 11:35 09/24/17 10:00 09/23/17 21:00 Intake & Output 09/21/17 09/22/17 09/23/17 09/24/17 23:59 23:59 23:59 23:59 Intake Total 776 2108.2 1288 809 Output Total 2100 1300 1500 Balance 776 8.2 -12 -691 Weight 90.5 kg 88 kg 88.949 kg 88.587 kg Gen: intubated, sedated Heart: RRR Lung: scattered rhonchi Abd: soft, nontender Ext: + edema CBC, BMP 09/24/17 05:10 09/24/17 05:10 Active Medications Acetaminophen (Ofirmev Injection -) 1,000 mg IVPB Q6H PRN PRN Reason: FEVER OR PAIN Last Admin: 09/20/17 19:19 Dose: 1,000 mg Albuterol/Ipratropium (Duoneb -) 1 amp NEB Q6H PRN PRN Reason: SHORT OF BREATH/WHEEZING Artificial Tears (Artificial Tears Ointment -) 1 applic OU BID [facility] Last Admin: 09/24/17 10:21 Dose: 1 applic Atorvastatin Calcium (Lipitor -) 20 mg PO HS [facility] Last Admin: 09/23/17 21:40 Dose: 20 mg Chlorhexidine Gluconate (Hibiclens For Decolonization -) 1 applic TP HS [facility] Last Admin: 09/23/17 23:00 Dose: 1 applic Chlorhexidine Gluconate (Peridex -) 15 ml MM BID [facility] Last Admin: 09/24/17 10:21 Dose: 15 ml Ciprofloxacin (Ciloxan 0.3% Eye Drops --) 2 drop OS Q2H [facility] Last Admin: 09/24/17 08:00 Dose: 2 drop Dexamethasone Sodium Phosphate (Decadron Injection -) 2 mg IVPUSH BID [facility] Stop: 09/25/17 10:01 Last Admin: 09/24/17 10:16 Dose: 2 mg Digoxin (Lanoxin Injection -) 0.125 mg IVPUSH Q2D@1000 [facility] Last Admin: 09/24/17 10:12 Dose: 0.125 mg Diltiazem HCl (Cardizem -) 90 mg NGT Q6HPO [facility] Haloperidol (Haldol Injection (Fast Acting) -) 5 mg IM Q4H PRN PRN Reason: AGITATION Last Admin: 09/23/17 04:39 Dose: 5 mg Hydralazine HCl (Apresoline Injection -) 10 mg IVPUSH Q6H PRN PRN Reason: HYPERTENSION Last Admin: 09/13/17 21:33 Dose: 10 mg HEPARIN SOD,PORK IN 0.45% NACL (Heparin-1/2ns 25,000 Units/500) 25,000 units in 500 mls @ 20 mls/hr IVPB TITR [facility]; 1,000 UNITS/HR PRN Reason: Protocol Last Admin: 09/23/17 22:59 Dose: 650 units/hr, 13 mls/hr Diltiazem HCl 125 mg/ Dextrose 125 mls @ 5 mls/hr IVPB TITR [facility]; 5 MG/HR PRN Reason: Protocol Last Admin: 09/24/17 10:28 Dose: 15 mg/hr, 15 mls/hr Sodium Chloride (1/2 Normal Saline) 1,000 mls @ 75 mls/hr IV ASDIR [facility] Last Admin: 09/23/17 11:55 Dose: Not Given Piperacillin Sod/Tazobactam (Sod 3.375 gm/ Dextrose) 50 mls @ 100 mls/hr IVPB Q8H-IV [facility] Last Admin: 09/24/17 10:23 Dose: 100 mls/hr Propofol (Diprivan -) 1,000,000 mcg in 100 mls @ 21.348 mls/hr IVPB TITR [facility]; 40 MCG/KG/MIN PRN Reason: Protocol Last Admin: 09/24/17 06:25 Dose: 20 mcg/kg/min, 10.674 mls/hr Insulin Aspart (Novolog Vial Sliding Scale -) 1 vial SQ Q4HPO [facility] PRN Reason: Protocol Last Admin: 09/24/17 06:22 Dose: Not Given Insulin Detemir (Levemir Vial) 15 units SQ HS [facility] Last Admin: 09/23/17 23:01 Dose: 7.5 unit Metoprolol Tartrate (Lopressor Injection -) 5 mg IVPUSH Q4H PRN PRN Reason: HYPERTENSION Last Admin: 09/22/17 08:55 Dose: 5 mg Ondansetron HCl (Zofran Injection) 4 mg IVPUSH Q6H PRN PRN Reason: NAUSEA Pantoprazole Sodium (Protonix Iv) 40 mg IVPUSH DAILY [facility] Last Admin: 09/24/17 10:24 Dose: 40 mg Trazodone HCl (Desyrel -) 50 mg PO [facility] Last Admin: 09/23/17 21:40 Dose: 50 mg ASSESSMENT AND PLAN: Multiple Acute Embolic CVA s/p Acute Hypoxic Respiratory Failure r/o Aspiration Pneumonia Atrial Fibrillation with RVR Metastatic Colon Ca to Lung Acute on Chronic Renal Failure Hyperkalemia HTN DM Hypercholesterolemia - continue antibiotics - titrate rate control - continue anticoagulation - increase free water - monitor urine output, creatinine - enteral feeds - lighten sedation in AM to assess mental status - spontaneous breathing trials as tolerated when mental status improved - DVT/GI prophylaxis - continue ICU monitoring critical care time spent in reviewing chart, evaluating patient and formulating plan 35 min
--- NOTE | 2017-09-24 12:50 | PN ---
Teaching Attending Note Name of Resident: Ruben Medina (Nephrology) ATTENDING PHYSICIAN STATEMENT I saw and evaluated the patient. I reviewed the resident's note and discussed the case with the resident. I agree with the resident's findings and plan as documented. Renal Pt seen and examined at bedside. She remains in the ICU. Pt is intubated. Current Medications Generic Name Dose Route Start Last Admin Trade Name Freq PRN Reason Stop Dose Admin Acetaminophen 1,000 mg 09/15/17 11:50 09/20/17 19:19 Ofirmev Injection - IVPB 1,000 mg Q6H PRN Administration FEVER OR PAIN Albuterol/Ipratropium 1 amp 09/20/17 10:30 Duoneb - NEB Q6H PRN SHORT OF BREATH/WHEEZING Artificial Tears 1 applic 09/15/17 22:00 09/24/17 10:21 Artificial Tears Ointment - OU 1 applic BID [facility] Administration Atorvastatin Calcium 20 mg 09/11/17 22:00 09/23/17 21:40 Lipitor - PO 20 mg HS [facility] Administration Chlorhexidine Gluconate 1 applic 09/15/17 22:00 09/23/17 23:00 Hibiclens For Decolonization - TP 1 applic HS [facility] Administration Chlorhexidine Gluconate 15 ml 09/15/17 22:00 09/24/17 10:21 Peridex - MM 15 ml BID [facility] Administration Ciprofloxacin 2 drop 09/16/17 14:45 09/24/17 08:00 Ciloxan 0.3% Eye Drops -- OS 2 drop Q2H [facility] Administration Dexamethasone Sodium Phosphate 2 mg 09/23/17 22:00 09/24/17 10:16 Decadron Injection - IVPUSH 09/25/17 10:01 2 mg BID [facility] Administration Digoxin 0.125 mg 09/24/17 10:00 09/24/17 10:12 Lanoxin Injection - IVPUSH 0.125 mg Q2D@1000 [facility] Administration Diltiazem HCl 90 mg 09/22/17 12:00 Cardizem - NGT Q6HPO [facility] Haloperidol 5 mg 09/22/17 11:33 09/23/17 04:39 Haldol Injection (Fast Acting) - IM 5 mg Q4H PRN Administration AGITATION Hydralazine HCl 10 mg 09/11/17 10:25 09/13/17 21:33 Apresoline Injection - IVPUSH 10 mg Q6H PRN Administration HYPERTENSION HEPARIN SOD,PORK IN 0.45% NACL 25,000 units in 500 mls @ 20 mls/hr 09/12/17 20 :00 09/23/17 22:59 Heparin-1/2ns 25,000 Units/500 IVPB 650 units/hr TITR [facility] 13 mls/hr Protocol Administration 1,000 UNITS/HR Diltiazem HCl 125 mg/ Dextrose 125 mls @ 5 mls/hr 09/22/17 09:15 09/24/17 10: 28 IVPB 15 mg/hr TITR [facility] 15 mls/hr Protocol Administration 5 MG/HR Sodium Chloride 1,000 mls @ 75 mls/hr 09/22/17 11:45 09/23/17 11:55 1/2 Normal Saline IV Not Given ASDIR [facility] Piperacillin Sod/Tazobactam 50 mls @ 100 mls/hr 09/23/17 18:00 09/24/17 10:23 Sod 3.375 gm/ Dextrose IVPB 100 mls/hr Q8H-IV [facility] Administration Propofol 1,000,000 mcg in 100 mls @ 21.348 mls/hr 09/23/17 17:30 09/24/17 06: 25 Diprivan - IVPB 20 mcg/kg/min TITR [facility] 10.674 mls/hr Protocol Administration 40 MCG/KG/MIN Insulin Aspart 1 vial 09/19/17 22:07 09/24/17 06:22 Novolog Vial Sliding Scale - SQ Not Given Q4HPO [facility] Protocol Insulin Detemir 15 units 09/19/17 22:00 09/23/17 23:01 Levemir Vial SQ 7.5 unit HS [facility] Administration Metoprolol Tartrate 5 mg 09/11/17 10:25 09/22/17 08:55 Lopressor Injection - IVPUSH 5 mg Q4H PRN Administration HYPERTENSION Ondansetron HCl 4 mg 09/11/17 02:02 Zofran Injection IVPUSH Q6H PRN NAUSEA Pantoprazole Sodium 40 mg 09/23/17 14:15 09/24/17 10:24 Protonix Iv IVPUSH 40 mg DAILY [facility] Administration Trazodone HCl 50 mg 09/20/17 22:00 09/23/17 21:40 Desyrel - PO 50 mg HS [facility] Administration Laboratory Tests 09/24/17 05:10 Sodium 151 H Potassium 4.8 Creatinine 2.0 H cardio s1s2 pulm bilateral vent sounds GI soft ext edema bateman in place neuro sedated Impression 1. CKD 2. SUSAN 3. DM 4. htn 5. chol 6. chemo port malfunction 7. a-fib 8. lung mass 9. proteinuria 10. adenocarcinoma 11. CVA 12. acute resp failure 13. hyperkalemia Plan - potassium is improved - use nepro for feeds - add free water to feeds - repeat labs in am - neuro follow up - monitor pulse ox - overall prognosis poor - cont ICU care - will follow Problem List - Problems (1) Brain metastasis Code(s): C79.31 - SECONDARY MALIGNANT NEOPLASM OF BRAIN (2) Headache Code(s): R51 - HEADACHE Qualifiers: Headache chronicity pattern: unspecified pattern Intractability: intractable (3) Metastatic colorectal cancer Code(s): C78.5 - SECONDARY MALIGNANT NEOPLASM OF LARGE INTESTINE AND RECTUM (4) SUSAN (acute kidney injury) Code(s): N17.9 - ACUTE KIDNEY FAILURE, UNSPECIFIED (5) Atrial fibrillation Code(s): I48.91 - UNSPECIFIED ATRIAL FIBRILLATION (6) Cancer, colon Code(s): C18.9 - MALIGNANT NEOPLASM OF COLON, UNSPECIFIED Qualifiers: Colon location: unspecified part of colon Qualified Code(s): C18.9 - Malignant neoplasm of colon, unspecified (7) Lung mass Code(s): R91.8 - OTHER NONSPECIFIC ABNORMAL FINDING OF LUNG FIELD
--- NOTE | 2017-09-24 13:32 | PN ---
Progress Note, Physician Chief Complaint: Now NSR History of Present Illness: 62 year old woman with a PMHx of HTN, paroxysmal atrial fibrillation on apixaban , DM, HLD, CKD, GERD and colon CA s/p colectomy 2011 with mets to lung admitted with nausea and vomiting. Echocardiogram 06/18/17 Normal LV function with moderate to severe TR and moderate pulmonary HTN. was Lethargic on Bipap AFIB at 108 BPM. 09/24/16 now intubated and in NSR at 73 BPM - Current Medication List Current Medications: Active Medications Acetaminophen (Ofirmev Injection -) 1,000 mg IVPB Q6H PRN PRN Reason: FEVER OR PAIN Last Admin: 09/20/17 19:19 Dose: 1,000 mg Albuterol/Ipratropium (Duoneb -) 1 amp NEB Q6H PRN PRN Reason: SHORT OF BREATH/WHEEZING Artificial Tears (Artificial Tears Ointment -) 1 applic OU BID [facility] Last Admin: 09/24/17 10:21 Dose: 1 applic Atorvastatin Calcium (Lipitor -) 20 mg PO HS [facility] Last Admin: 09/23/17 21:40 Dose: 20 mg Chlorhexidine Gluconate (Hibiclens For Decolonization -) 1 applic TP HS [facility] Last Admin: 09/23/17 23:00 Dose: 1 applic Chlorhexidine Gluconate (Peridex -) 15 ml MM BID [facility] Last Admin: 09/24/17 10:21 Dose: 15 ml Ciprofloxacin (Ciloxan 0.3% Eye Drops --) 2 drop OS Q2H [facility] Last Admin: 09/24/17 08:00 Dose: 2 drop Dexamethasone Sodium Phosphate (Decadron Injection -) 2 mg IVPUSH BID [facility] Stop: 09/25/17 10:01 Last Admin: 09/24/17 10:16 Dose: 2 mg Digoxin (Lanoxin Injection -) 0.125 mg IVPUSH Q2D@1000 [facility] Last Admin: 09/24/17 10:12 Dose: 0.125 mg Diltiazem HCl (Cardizem -) 90 mg NGT Q6HPO [facility] Haloperidol (Haldol Injection (Fast Acting) -) 5 mg IM Q4H PRN PRN Reason: AGITATION Last Admin: 09/23/17 04:39 Dose: 5 mg Hydralazine HCl (Apresoline Injection -) 10 mg IVPUSH Q6H PRN PRN Reason: HYPERTENSION Last Admin: 09/13/17 21:33 Dose: 10 mg HEPARIN SOD,PORK IN 0.45% NACL (Heparin-1/2ns 25,000 Units/500) 25,000 units in 500 mls @ 20 mls/hr IVPB TITR [facility]; 1,000 UNITS/HR PRN Reason: Protocol Last Admin: 09/23/17 22:59 Dose: 650 units/hr, 13 mls/hr Diltiazem HCl 125 mg/ Dextrose 125 mls @ 5 mls/hr IVPB TITR [facility]; 5 MG/HR PRN Reason: Protocol Last Admin: 09/24/17 10:28 Dose: 15 mg/hr, 15 mls/hr Sodium Chloride (1/2 Normal Saline) 1,000 mls @ 75 mls/hr IV ASDIR [facility] Last Admin: 09/23/17 11:55 Dose: Not Given Piperacillin Sod/Tazobactam (Sod 3.375 gm/ Dextrose) 50 mls @ 100 mls/hr IVPB Q8H-IV [facility] Last Admin: 09/24/17 10:23 Dose: 100 mls/hr Propofol (Diprivan -) 1,000,000 mcg in 100 mls @ 21.348 mls/hr IVPB TITR [facility]; 40 MCG/KG/MIN PRN Reason: Protocol Last Admin: 09/24/17 06:25 Dose: 20 mcg/kg/min, 10.674 mls/hr Insulin Aspart (Novolog Vial Sliding Scale -) 1 vial SQ Q4HPO [facility] PRN Reason: Protocol Last Admin: 09/24/17 06:22 Dose: Not Given Insulin Detemir (Levemir Vial) 15 units SQ HS [facility] Last Admin: 09/23/17 23:01 Dose: 7.5 unit Metoprolol Tartrate (Lopressor Injection -) 5 mg IVPUSH Q4H PRN PRN Reason: HYPERTENSION Last Admin: 09/22/17 08:55 Dose: 5 mg Ondansetron HCl (Zofran Injection) 4 mg IVPUSH Q6H PRN PRN Reason: NAUSEA Pantoprazole Sodium (Protonix Iv) 40 mg IVPUSH DAILY [facility] Last Admin: 09/24/17 10:24 Dose: 40 mg Trazodone HCl (Desyrel -) 50 mg PO HS [facility] Last Admin: 09/23/17 21:40 Dose: 50 mg - Objective Vital Signs: Vital Signs Temperature 97.5 F L 09/24/17 10:00 Pulse Rate 76 09/24/17 10:28 Respiratory Rate 16 09/24/17 11:35 Blood Pressure 148/88 09/24/17 10:00 O2 Sat by Pulse Oximetry (%) 100 09/23/17 21:00 Constitutional: Yes: No Distress Neck: Yes: WNL Cardiovascular: Yes: Regular Rate and Rhythm (NL S1S2, no MRHG) Respiratory: Yes: Other (Scattered crackles) Gastrointestinal: Yes: Soft Extremities: Yes: WNL Edema: No Neurological: Yes: Other (Sleepy Grossly non focal) Labs: CBC, BMP 09/24/17 05:10 09/24/17 05:10 INR, PTT INR 0.96 (0.82-1.09) 09/17/17 06:25 Assessment/Plan Acute Hypoxic Respiratory Failure was Lethargic on Bipap AFIB at 108 BPM. 09/24/16 now intubated and in NSR at 73 BPM Hemodynamically stable Continue current meds Call us prn
[2017-09-24] MEDS: SODIUM CHLORIDE 0.45% 1,000 ML IV SCH (17:10)
--- NOTE | 2017-09-24 19:41 | PN ---
Progress Note (short form) - Note Progress Note: NEUROLOGY FOLLOW-UP: Events reviewed and discussed with Dr. Han and [id number] at the bedside. Pt was extubated x 2 days and, according to he [id number] was alert, communicating, recognized family, although she was confused. However, she had continued trouble with secretions and became agitated on BIPAP. For agitation she was given Haldol 5mg IM, became lethargic and required reintubation last night. Now back on propofol. Exam: Sedated but responsive. Squeezes right hand on command. Moves all 4's R>L Still with reactive pupils, Full EOM's and B/L corneals but exhibits conjugate leftward and downward eye deviation before stimulation. IMP: S/P extensive posterior fossa CVA including brainstem Persistent dysphagia due to brainstem stroke predisposing to aspiration. SUGGEST: Avoid excessive sedation when extubated (ie: Use haldol 2mg not 5). Frequent suctioning of oral secretion, maintain HOB elevated. Repeat CT of head (C-) before attempted reextubation. Thank you very much, Daniel Pulido MD
[2017-09-24] MEDS: traZODone HCL 50 MG TABLET (FP) PO SCH (21:59)
[2017-09-24] MEDS: CHLORHEXIDINE GLUCONATE 4% CLEANSER FOR DECOLONIZATION TP SCH (21:59)
[2017-09-24] MEDS: ATORVASTATIN CA 20 MG TABLET (FP) PO SCH (22:00)
[2017-09-24] MEDS: INSULIN DETEMIR 100 UNITS/ML MDV SQ SCH (22:02)
[2017-09-24] MEDS ORDERED: MIDAZOLAM HCL 2 MG/2 ML SINGLE DOSE VIAL IVPUSH ONE (22:25)
[2017-09-24] MEDS ORDERED: MIDAZOLAM HCL 2 MG/2 ML SINGLE DOSE VIAL IVPUSH PRN (23:07)
[2017-09-25] MEDS: CIPROFLOXACIN 0.3% EYE DROPS 5 ML BOTTLE OS SCH ×12 (01:00→22:50)
[2017-09-25] MEDS ORDERED: HEMOQUE TEST 1 EACH EACH ONE ×3 (02:16→17:35)
[2017-09-25] MEDS: INSULIN SLIDING SCALE (NOVOLOG) 1 VIAL SQ SCH ×6 (02:22→22:21)
[2017-09-25] MEDS: PIPERACILLIN/TAZOB 3.375 GM 3.375 GM in DEXTROSE 5%-WATER - 50 ML IVPB SCH ×3 (02:23→17:38)
[2017-09-25 06:37] LABS: ARTERIAL BLD GAS O2 SATURATION 98.1 % (90-98.9); ARTERIAL BLOOD GAS BASE EXCESS 0.8 meq/l (-2-2); ARTERIAL BLOOD GAS PCO2 38.4 mmHg (35-45); ARTERIAL BLOOD GAS pH 7.42 (7.35-7.45)
[2017-09-25 06:39] LABS: ALLENS TEST POSITIVE
[2017-09-25 07:22] LABS: ALBUMIN 1.7 g/dl (3.4-5.0); ANION GAP 8 (8-16); BILIRUBIN,TOTAL 0.3 mg/dL (0.2-1.0); BLOOD UREA NITROGEN 63 mg/dL (7-18); CALCIUM 7.3 mg/dL (8.5-10.1); CHLORIDE 116 mmol/L (98-107); CO2 27 mmol/L (21-32); CREATININE 1.6 mg/dL (0.55-1.02); GLUCOSE,RANDOM 90 mg/dL (74-106); MAGNESIUM 2.3 mg/dL (1.8-2.4); PHOSPHOROUS 4.5 mg/dL (2.5-4.9); POTASSIUM 4.3 mmol/L (3.5-5.1); SGOT/AST 17 U/L (15-37); SGPT/ALT 21 U/L (12-78); SODIUM 151 mmol/L (136-145); TOT PROT 4.5 g/dl (6.4-8.2)
[2017-09-25 07:34] LABS: ALK PHOS 79 U/L (45-117)
--- NOTE | 2017-09-25 07:41 | PN ---
Progress Note, Physician Chief Complaint: ID Remains intubated Pip Tazo day 2 - Current Medication List Current Medications: Active Medications Acetaminophen (Ofirmev Injection -) 1,000 mg IVPB Q6H PRN PRN Reason: FEVER OR PAIN Last Admin: 09/20/17 19:19 Dose: 1,000 mg Albuterol/Ipratropium (Duoneb -) 1 amp NEB Q6H PRN PRN Reason: SHORT OF BREATH/WHEEZING Artificial Tears (Artificial Tears Ointment -) 1 applic OU BID [facility] Last Admin: 09/24/17 21:58 Dose: 1 applic Atorvastatin Calcium (Lipitor -) 20 mg PO HS [facility] Last Admin: 09/24/17 22:00 Dose: 20 mg Chlorhexidine Gluconate (Hibiclens For Decolonization -) 1 applic TP HS [facility] Last Admin: 09/24/17 21:59 Dose: 1 applic Chlorhexidine Gluconate (Peridex -) 15 ml MM BID [facility] Last Admin: 09/24/17 23:22 Dose: 15 ml Ciprofloxacin (Ciloxan 0.3% Eye Drops --) 2 drop OS Q2H [facility] Last Admin: 09/25/17 06:30 Dose: 2 drop Dexamethasone Sodium Phosphate (Decadron Injection -) 2 mg IVPUSH BID [facility] Stop: 09/25/17 10:01 Last Admin: 09/24/17 21:58 Dose: 2 mg Digoxin (Lanoxin Injection -) 0.125 mg IVPUSH Q2D@1000 [facility] Last Admin: 09/24/17 10:12 Dose: 0.125 mg Diltiazem HCl (Cardizem -) 90 mg NGT Q6HPO [facility] Fentanyl (Sublimaze Injection -) 100 mcg IVPUSH ONCE PRN PRN Reason: AGITATION Stop: 09/25/17 23:04 Hydralazine HCl (Apresoline Injection -) 10 mg IVPUSH Q6H PRN PRN Reason: HYPERTENSION Last Admin: 09/13/17 21:33 Dose: 10 mg HEPARIN SOD,PORK IN 0.45% NACL (Heparin-1/2ns 25,000 Units/500) 25,000 units in 500 mls @ 20 mls/hr IVPB TITR [facility]; 1,000 UNITS/HR PRN Reason: Protocol Last Admin: 09/23/17 22:59 Dose: 650 units/hr, 13 mls/hr Diltiazem HCl 125 mg/ Dextrose 125 mls @ 5 mls/hr IVPB TITR [facility]; 5 MG/HR PRN Reason: Protocol Last Admin: 09/24/17 10:28 Dose: 15 mg/hr, 15 mls/hr Sodium Chloride (1/2 Normal Saline) 1,000 mls @ 75 mls/hr IV ASDIR [facility] Last Admin: 09/24/17 17:10 Dose: 75 mls/hr Piperacillin Sod/Tazobactam (Sod 3.375 gm/ Dextrose) 50 mls @ 100 mls/hr IVPB Q8H-IV [facility] Last Admin: 09/25/17 02:23 Dose: 100 mls/hr Propofol (Diprivan -) 1,000,000 mcg in 100 mls @ 21.348 mls/hr IVPB TITR [facility]; 40 MCG/KG/MIN PRN Reason: Protocol Last Admin: 09/24/17 17:10 Dose: 40 mcg/kg/min, 21.348 mls/hr Insulin Aspart (Novolog Vial Sliding Scale -) 1 vial SQ Q4HPO [facility] PRN Reason: Protocol Last Admin: 09/25/17 06:31 Dose: Not Given Insulin Detemir (Levemir Vial) 15 units SQ [facility] Last Admin: 09/24/17 22:02 Dose: 15 unit Metoprolol Tartrate (Lopressor Injection -) 5 mg IVPUSH Q4H PRN PRN Reason: HYPERTENSION Last Admin: 09/22/17 08:55 Dose: 5 mg Midazolam HCl (Versed -) 1 mg IVPUSH ONCE PRN PRN Reason: AGITATION Stop: 09/25/17 23:06 Ondansetron HCl (Zofran Injection) 4 mg IVPUSH Q6H PRN PRN Reason: NAUSEA Pantoprazole Sodium (Protonix Iv) 40 mg IVPUSH DAILY [facility] Last Admin: 09/24/17 10:24 Dose: 40 mg Trazodone HCl (Desyrel -) 50 mg PO [facility] Last Admin: 09/24/17 21:59 Dose: Not Given - Objective Vital Signs: Vital Signs Temperature 98.4 F 09/25/17 02:00 Pulse Rate 61 09/25/17 06:00 Respiratory Rate 16 09/25/17 07:29 Blood Pressure 169/89 09/25/17 06:00 O2 Sat by Pulse Oximetry (%) 100 09/24/17 21:00 Constitutional: Yes: Other (Vent) Cardiovascular: Yes: Regular Rate and Rhythm, S1, S2. No: Gallop, Murmur Respiratory: Yes: WNL, Regular, CTA Bilaterally Gastrointestinal: Yes: WNL, Normal Bowel Sounds, Soft. No: Tenderness, Tenderness, Rebound Extremities: No: Cold, Cool, Cyanosis Edema: No Labs: INR, PTT INR 0.96 (0.82-1.09) 09/17/17 06:25 Problem List - Problems (1) Pneumonia Code(s): J18.9 - PNEUMONIA, UNSPECIFIED ORGANISM (2) Brain metastasis Code(s): C79.31 - SECONDARY MALIGNANT NEOPLASM OF BRAIN (3) CVA (cerebral vascular accident) Code(s): I63.9 - CEREBRAL INFARCTION, UNSPECIFIED (4) Metastatic colorectal cancer Code(s): C78.5 - SECONDARY MALIGNANT NEOPLASM OF LARGE INTESTINE AND RECTUM (5) Respiratory failure Code(s): J96.90 - RESPIRATORY FAILURE, UNSP, UNSP W HYPOXIA OR HYPERCAPNIA Assessment/Plan Microbiology 09/23/17 17:00 Sputum - Endotrachea Suction/Ventilator Gram Stain - Final 09/15/17 12:00 Urine - Urine Mcdonald Urine Culture - Final NO GROWTH OBTAINED 09/23/17 17:00 Blood - Peripheral Venous Blood Culture - Preliminary NO GROWTH OBTAINED AFTER 24 HOURS, INCUBATION TO CONTINUE FOR 4 DAYS. 09/23/17 17:00 Blood - Peripheral Venous Blood Culture - Preliminary NO GROWTH OBTAINED AFTER 24 HOURS, INCUBATION TO CONTINUE FOR 4 DAYS. Laboratory Tests 09/24/17 09/24/17 09/25/17 05:10 05:10 05:05 WBC 15.0 H Pending Hgb Pending Hct Pending Plt Count Pending BUN 76 H Creatinine 2.0 H Creat Clearance w eGFR 25.42 Assessment Metastatic colon CA Brain infarcts Respiratory failure Pneumonia SUSAN Plan Continue current antibiotic. Prognosis poor Sergo HIGUERA
[2017-09-25 07:53] LABS: HEMATOCRIT 32.9 % (32.4-45.2); HEMOGLOBIN 10.6 GM/dL (10.7-15.3); MCH 27.1 pg (25.7-33.7); MCHC 32.2 g/dl (32.0-36.0); MEAN CELL VOLUME 84.1 fl (80-96); MEAN PLT VOLUME 8.8 fl (7.5-11.1); PLATELET COUNT 167 K/MM3 (134-434); RBC 3.92 M/mm3 (3.60-5.2); RDW 15.8 % (11.6-15.6); WHITE BLOOD COUNT 14.3 K/mm3 (4.0-10.0)
--- NOTE | 2017-09-25 08:35 | PN ---
Physical Exam: SUBJECTIVE: Patient seen and examined. Intubated and sedated @50 of propofol. Still said to be agitated over the night moving her limbs actively and received fentanyl and midazolam in addition to her propofol. OBJECTIVE: Vital Signs Period Temp Pulse Resp BP Sys/Mdcaniel Pulse Ox Last 24 Hr 97.4 F-98.4 F 60-79 13-16 121-174/73-95 100-100 Vital Signs Temp 98.4 F 09/25/17 02:00 Pulse 61 09/25/17 06:00 Resp 16 09/25/17 07:29 BP 169/89 09/25/17 06:00 Pulse Ox 100 09/24/17 21:00 Intake & Output 09/24/17 09/24/17 09/25/17 11:59 23:59 11:59 Intake Total 809 1405 1340 Output Total 1500 900 Balance -560 777 2303 Weight 88.587 kg 86.9 kg Intake: IV 759 1355 1290 1/2 Normal Saline 1,000 500 900 900 ml @ 75 mls/hr IV ASDIR COR[facility] Rx#:[id number] Cardizem Injection - 125 35 180 0 mg In D5w - 100 ml @ 5 MG /HR 5 mls/hr IVPB TITR [facility] Rx#:[id number] DIPRIVAN - 1,000,000 mcg 119 119 234 In 100 ml @ 40 MCG/KG/MIN 21.348 mls/hr IVPB TITR [facility] Rx#:[id number] HEPARIN-1/2NS 25,000 105 156 156 UNITS/500 25,000 units In 500 ml @ 1,000 UNITS/HR 20 mls/hr IVPB TITR COR[facility] Rx#:[id number] IVPB 50 50 50 Output: Urine 1500 900 Bateman 300 Void 1500 600 Other: Voiding Method Indwelling Catheter Indwelling Catheter Bowel Movement Yes # Bowel Movements 3 Weight Measurement Method [facility] in [facility] GENERAL: The patient is intubated off sedation but drowsy. - [id number], TV- 450, fi02-50%, 04/12 HEAD: Healing L eye bruise. EYES: Bilaterally reacting pupils. Improving L eye hyphema ENT:ETT and NGT in place NECK: supple. LUNGS: Vesicular breath sounds equal, fine creps >R HEART:Rate controlled, S1, S2 . ABDOMEN: Soft, nontender, nondistended, normoactive bowel sounds, EXTREMITIES: 2+ pulses, warm, well-perfused, no edema, SCDs. NEUROLOGICAL: Drowsy, moving all limbs PSYCH: drowsy Lines: NGT, ETT, Bateman, LUE peripheral line Laboratory Results - last 24 hr 09/24/17 09/24/17 09/24/17 02:39 05:10 05:10 WBC RBC Hgb Hct MCV MCH MCHC RDW Plt Count MPV Total Counted 100 Neutrophils % Neutrophils % (Manual) 89.0 H Band Neutrophils % 2.0 Lymphocytes % Lymphocytes % (Manual) 8.0 D Monocytes % (Manual) 1 L PTT (Actin FS) Puncture Site ABG pH ABG pCO2 at Pt Temp ABG pO2 at Pt Temp ABG HCO3 ABG O2 Sat (Measured) ABG O2 Content ABG Base Excess Addy Test Oxygen Flow Rate Vent Mode Vent Rate PEEP Pressure Support Vent Sodium Potassium Chloride Carbon Dioxide Anion Gap BUN Creatinine Creat Clearance w eGFR POC Glucometer 94.87597 Random Glucose Calcium Phosphorus Magnesium Total Bilirubin AST ALT Alkaline Phosphatase Total Protein Albumin Random Vancomycin 15.713 Digoxin 09/24/17 09/24/17 09/24/17 05:47 10:15 10:30 WBC RBC Hgb Hct MCV MCH MCHC RDW Plt Count MPV Total Counted Neutrophils % Neutrophils % (Manual) Band Neutrophils % Lymphocytes % Lymphocytes % (Manual) Monocytes % (Manual) PTT (Actin FS) 71.8 H Puncture Site ABG pH ABG pCO2 at Pt Temp ABG pO2 at Pt Temp ABG HCO3 ABG O2 Sat (Measured) ABG O2 Content ABG Base Excess Addy Test Oxygen Flow Rate Vent Mode Vent Rate PEEP Pressure Support Vent Sodium Potassium Chloride Carbon Dioxide Anion Gap BUN Creatinine Creat Clearance w eGFR POC Glucometer 93.48420 127.46262 Random Glucose Calcium Phosphorus Magnesium Total Bilirubin AST ALT Alkaline Phosphatase Total Protein Albumin Random Vancomycin Digoxin 09/24/17 09/25/17 09/25/17 12:49 02:20 05:05 WBC RBC Hgb Hct MCV MCH MCHC RDW Plt Count MPV Total Counted Neutrophils % Neutrophils % (Manual) Band Neutrophils % Lymphocytes % Lymphocytes % (Manual) Monocytes % (Manual) PTT (Actin FS) Puncture Site ABG pH ABG pCO2 at Pt Temp ABG pO2 at Pt Temp ABG HCO3 ABG O2 Sat (Measured) ABG O2 Content ABG Base Excess Addy Test Oxygen Flow Rate Vent Mode Vent Rate PEEP Pressure Support Vent Sodium Potassium Chloride Carbon Dioxide Anion Gap BUN Creatinine Creat Clearance w eGFR POC Glucometer 133.97177 162.18647 Random Glucose Calcium Phosphorus Magnesium Total Bilirubin AST ALT Alkaline Phosphatase Total Protein Albumin Random Vancomycin 7.532 Digoxin 09/25/17 09/25/17 09/25/17 05:05 05:05 05:05 WBC 14.3 H RBC 3.92 Hgb 10.6 L Hct 32.9 MCV 84.1 MCH 27.1 MCHC 32.2 RDW 15.8 H Plt Count 167 MPV 8.8 Total Counted Neutrophils % No Result Required. Neutrophils % (Manual) Band Neutrophils % Lymphocytes % No Result Required. Lymphocytes % (Manual) Monocytes % (Manual) PTT (Actin FS) 51.9 H Puncture Site ABG pH ABG pCO2 at Pt Temp ABG pO2 at Pt Temp ABG HCO3 ABG O2 Sat (Measured) ABG O2 Content ABG Base Excess Addy Test Oxygen Flow Rate Vent Mode Vent Rate PEEP Pressure Support Vent Sodium 151 H Potassium 4.3 Chloride 116 H Carbon Dioxide 27 Anion Gap 8 BUN 63 H Creatinine 1.6 H Creat Clearance w eGFR 32.88 POC Glucometer Random Glucose 90 Calcium 7.3 L Phosphorus 4.5 Magnesium 2.3 Total Bilirubin 0.3 D AST 17 ALT 21 Alkaline Phosphatase 79 Total Protein 4.5 L Albumin 1.7 L Random Vancomycin Digoxin 1.7318 09/25/17 09/25/17 06:29 06:30 WBC RBC Hgb Hct MCV MCH MCHC RDW Plt Count MPV Total Counted Neutrophils % Neutrophils % (Manual) Band Neutrophils % Lymphocytes % Lymphocytes % (Manual) Monocytes % (Manual) PTT (Actin FS) Puncture Site Right radial ABG pH 7.42 ABG pCO2 at Pt Temp 38.4 D ABG pO2 at Pt Temp 105.0 H D ABG HCO3 24.6 ABG O2 Sat (Measured) 98.1 ABG O2 Content 15.5 ABG Base Excess 0.8 Addy Test Positive Oxygen Flow Rate 40% Vent Mode A/c Vent Rate 12 PEEP 5.0 Pressure Support Vent 400 Sodium Potassium Chloride Carbon Dioxide Anion Gap BUN Creatinine Creat Clearance w eGFR POC Glucometer 115.78310 Random Glucose Calcium Phosphorus Magnesium Total Bilirubin AST ALT Alkaline Phosphatase Total Protein Albumin Random Vancomycin Digoxin Active Medications Generic Name Dose Route Start Last Admin Trade Name Freq PRN Reason Stop Dose Admin Acetaminophen 1,000 mg 09/15/17 11:50 09/20/17 19:19 Ofirmev Injection - IVPB 1,000 mg Q6H PRN Administration FEVER OR PAIN Albuterol/Ipratropium 1 amp 09/20/17 10:30 Duoneb - NEB Q6H PRN SHORT OF BREATH/WHEEZING Artificial Tears 1 applic 09/15/17 22:00 09/24/17 21:58 Artificial Tears Ointment - OU 1 applic BID [facility] Administration Atorvastatin Calcium 20 mg 09/11/17 22:00 09/24/17 22:00 Lipitor - PO 20 mg HS [facility] Administration Chlorhexidine Gluconate 1 applic 09/15/17 22:00 09/24/17 21:59 Hibiclens For Decolonization - TP 1 applic HS [facility] Administration Chlorhexidine Gluconate 15 ml 09/15/17 22:00 09/24/17 23:22 Peridex - MM 15 ml BID [facility] Administration Ciprofloxacin 2 drop 09/16/17 14:45 09/25/17 06:30 Ciloxan 0.3% Eye Drops -- OS 2 drop Q2H [facility]IA Administration Dexamethasone Sodium Phosphate 2 mg 09/23/17 22:00 09/24/17 21:58 Decadron Injection - IVPUSH 09/25/17 10:01 2 mg BID COR[facility] Administration Digoxin 0.125 mg 09/24/17 10:00 09/24/17 10:12 Lanoxin Injection - IVPUSH 0.125 mg Q2D@1000 [facility] Administration Diltiazem HCl 90 mg 09/22/17 12:00 Cardizem - NGT Q6HPO [facility] Fentanyl 100 mcg 09/24/17 23:05 Sublimaze Injection - IVPUSH 09/25/17 23:04 ONCE PRN AGITATION Hydralazine HCl 10 mg 09/11/17 10:25 09/13/17 21:33 Apresoline Injection - IVPUSH 10 mg Q6H PRN Administration HYPERTENSION HEPARIN SOD,PORK IN 0.45% NACL 25,000 units in 500 mls @ 20 mls/hr 09/12/17 20 :00 09/23/17 22:59 Heparin-1/2ns 25,000 Units/500 IVPB 650 units/hr TITR CORDELIA 13 mls/hr Protocol Administration 1,000 UNITS/HR Diltiazem HCl 125 mg/ Dextrose 125 mls @ 5 mls/hr 09/22/17 09:15 09/24/17 10: 28 IVPB 15 mg/hr TITR [facility] 15 mls/hr Protocol Administration 5 MG/HR Sodium Chloride 1,000 mls @ 75 mls/hr 09/22/17 11:45 09/24/17 17:10 1/2 Normal Saline IV 75 mls/hr ASDIR [facility] Administration Piperacillin Sod/Tazobactam 50 mls @ 100 mls/hr 09/23/17 18:00 09/25/17 02:23 Sod 3.375 gm/ Dextrose IVPB 100 mls/hr Q8H-IV [facility] Administration Propofol 1,000,000 mcg in 100 mls @ 21.348 mls/hr 09/23/17 17:30 09/24/17 17: 10 Diprivan - IVPB 40 mcg/kg/min TITR COR[facility]IA 21.348 mls/hr Protocol Administration 40 MCG/KG/MIN Insulin Aspart 1 vial 09/19/17 22:07 09/25/17 06:31 Novolog Vial Sliding Scale - SQ Not Given Q4HPO [facility] Protocol Insulin Detemir 15 units 09/19/17 22:00 09/24/17 22:02 Levemir Vial SQ 15 unit HS [facility] Administration Metoprolol Tartrate 5 mg 09/11/17 10:25 09/22/17 08:55 Lopressor Injection - IVPUSH 5 mg Q4H PRN Administration HYPERTENSION Midazolam HCl 1 mg 09/24/17 23:07 Versed - IVPUSH 09/25/17 23:06 ONCE PRN AGITATION Ondansetron HCl 4 mg 09/11/17 02:02 Zofran Injection IVPUSH Q6H PRN NAUSEA Pantoprazole Sodium 40 mg 09/23/17 14:15 09/24/17 10:24 Protonix Iv IVPUSH 40 mg DAILY [facility] Administration Trazodone HCl 50 mg 09/20/17 22:00 09/24/17 21:59 Desyrel - PO Not Given HS [facility] ASSESSMENT/PLAN: 62 yo F with PMHx of HTN, paroxysmal atrial fibrillation on apixaban, DM, HLD, CKD, GERD and colon CA s/p colectomy 2011 with mets to lung admitted to ICU for AMS now reintubated x 3 (09/23/17) Neuro/opth:. AMS- intubated and off sedation, drowsy but arousable Actively moving all limbs R/O critical illness polyneuropathy AMS 2/2 to cerebral edema from multiple acute infarcts with background Afib L eye hyphema- cipro ointment OS Q2H Haldol PRN 5mg im PRN to be reduced to 2mg- per Dr Pulido For CT head- per Dr Pulido prior to extubation Hold off fentanyl and midazolam Respiratory: Acute hypercapneic hypoxic resp failure- reintubated x 3 (09/23/17)- VCV-AC-[id number] -12, TV-400, fi02-40%, 8/5 Blood gases improved, CXR-improved Changed to CPAP [id number], [address] and [address] head and when she wakes up CXR Sputum cultures- pending Renal: SUSAN R/O CKD Cr- 1.6 (about patient's baseline)- improving Hyperkalemia- improved Stop 1/2 Normal saline @75/hr Iv lasix 40mg stat hypernatremia- Hyperphosphatemia Hypermagnesemia CMP,Mg, Phosphorus On nepro feeds Hold ramipril (with failure) Monitor Metabolic/Endocrine/GI/Lines: DM bgm On nepro feeds Hypernatremic- for free water per NGT iv protonix 40mg push Cont levemir- 15u Cont ISS Hyperkalemia- resume Stop 1/2 NS @75ml/hr Lines: ETT (09/23/17), NGT, RUE peripheral line, LUE periph line, bateman Cardio: Htn HLD Still tachycardic- Lopressor as needed Continue heparin drip for now to transition probably to eliquis when stable- per cardiology iv metoprolol prn -5mg Digoxin 0.125 Stop iv cardizem gtt@5mls/hr Resume cardizem 90mg NGT Iv hydrazaline 10mg ivpush PRN Start PO metoprolol 25 mg bid NGT Digoxin level PTT Hemonc: Anemia- stable post transfusion 09/23 Colorectal cancer with lung mets ID: Acute sepsis could be 2/2 to PNA with L lung infiltrate Restarted on Zosyn-3.35 (09/23/17) Cont Cipro eye drops Cont artificial tears Monitor daily CXR Prophylaxis: on heparin gtt protonix drip @14.5/hr Heel pads Dispo: Monitor in ICU For extubation post Head CT Visit type - Emergency Visit Emergency Visit: Yes ED Registration Date: 09/10/17 Care time: The patient presented to the Emergency Department on the above date and was hospitalized for further evaluation of their emergent condition. - New Patient This patient is new to me today: No - Critical Care Critical Care patient: Yes Total Critical Care Time (in minutes): 40 Critical Care Statement: The care of this patient involved high complexity decision making to prevent further life threatening deterioration of the patient 's condition and/or to evaluate & treat vital organ system(s) failure or risk of failure. - Discharge Referral Referred to [facility] Med P.C.: No
--- NOTE | 2017-09-25 09:01 | PN ---
Progress Note, Physician History of Present Illness: intubated - Current Medication List Current Medications: Active Medications Acetaminophen (Ofirmev Injection -) 1,000 mg IVPB Q6H PRN PRN Reason: FEVER OR PAIN Last Admin: 09/20/17 19:19 Dose: 1,000 mg Albuterol/Ipratropium (Duoneb -) 1 amp NEB Q6H PRN PRN Reason: SHORT OF BREATH/WHEEZING Artificial Tears (Artificial Tears Ointment -) 1 applic OU BID [facility] Last Admin: 09/24/17 21:58 Dose: 1 applic Atorvastatin Calcium (Lipitor -) 20 mg PO HS [facility] Last Admin: 09/24/17 22:00 Dose: 20 mg Chlorhexidine Gluconate (Hibiclens For Decolonization -) 1 applic TP HS [facility] Last Admin: 09/24/17 21:59 Dose: 1 applic Chlorhexidine Gluconate (Peridex -) 15 ml MM BID [facility] Last Admin: 09/24/17 23:22 Dose: 15 ml Ciprofloxacin (Ciloxan 0.3% Eye Drops --) 2 drop OS Q2H [facility] Last Admin: 09/25/17 06:30 Dose: 2 drop Dexamethasone Sodium Phosphate (Decadron Injection -) 2 mg IVPUSH BID [facility] Stop: 09/25/17 10:01 Last Admin: 09/24/17 21:58 Dose: 2 mg Digoxin (Lanoxin Injection -) 0.125 mg IVPUSH Q2D@1000 [facility] Last Admin: 09/24/17 10:12 Dose: 0.125 mg Diltiazem HCl (Cardizem -) 90 mg NGT Q6HPO [facility] Fentanyl (Sublimaze Injection -) 100 mcg IVPUSH ONCE PRN PRN Reason: AGITATION Stop: 09/25/17 23:04 Hydralazine HCl (Apresoline Injection -) 10 mg IVPUSH Q6H PRN PRN Reason: HYPERTENSION Last Admin: 09/13/17 21:33 Dose: 10 mg HEPARIN SOD,PORK IN 0.45% NACL (Heparin-1/2ns 25,000 Units/500) 25,000 units in 500 mls @ 20 mls/hr IVPB TITR CORDELIA; 1,000 UNITS/HR PRN Reason: Protocol Last Admin: 09/23/17 22:59 Dose: 650 units/hr, 13 mls/hr Diltiazem HCl 125 mg/ Dextrose 125 mls @ 5 mls/hr IVPB TITR CORDELIA; 5 MG/HR PRN Reason: Protocol Last Admin: 09/24/17 10:28 Dose: 15 mg/hr, 15 mls/hr Sodium Chloride (1/2 Normal Saline) 1,000 mls @ 75 mls/hr IV ASDIR [facility] Last Admin: 09/24/17 17:10 Dose: 75 mls/hr Piperacillin Sod/Tazobactam (Sod 3.375 gm/ Dextrose) 50 mls @ 100 mls/hr IVPB Q8H-IV [facility] Last Admin: 09/25/17 02:23 Dose: 100 mls/hr Propofol (Diprivan -) 1,000,000 mcg in 100 mls @ 21.348 mls/hr IVPB TITR [facility]DELIA; 40 MCG/KG/MIN PRN Reason: Protocol Last Admin: 09/24/17 17:10 Dose: 40 mcg/kg/min, 21.348 mls/hr Insulin Aspart (Novolog Vial Sliding Scale -) 1 vial SQ Q4HPO [facility] PRN Reason: Protocol Last Admin: 09/25/17 06:31 Dose: Not Given Insulin Detemir (Levemir Vial) 15 units SQ [facility] Last Admin: 09/24/17 22:02 Dose: 15 unit Metoprolol Tartrate (Lopressor Injection -) 5 mg IVPUSH Q4H PRN PRN Reason: HYPERTENSION Last Admin: 09/22/17 08:55 Dose: 5 mg Midazolam HCl (Versed -) 1 mg IVPUSH ONCE PRN PRN Reason: AGITATION Stop: 09/25/17 23:06 Ondansetron HCl (Zofran Injection) 4 mg IVPUSH Q6H PRN PRN Reason: NAUSEA Pantoprazole Sodium (Protonix Iv) 40 mg IVPUSH DAILY [facility] Last Admin: 09/24/17 10:24 Dose: 40 mg Trazodone HCl (Desyrel -) 50 mg PO [facility] Last Admin: 09/24/17 21:59 Dose: Not Given - Objective Vital Signs: Vital Signs Temperature 98.4 F 09/25/17 02:00 Pulse Rate 61 09/25/17 06:00 Respiratory Rate 16 09/25/17 07:29 Blood Pressure 169/89 09/25/17 06:00 O2 Sat by Pulse Oximetry (%) 100 01/17/18 21:00 Cardiovascular: Yes: S1, S2 Respiratory: Yes: Mechanically Ventilated Gastrointestinal: Yes: Normal Bowel Sounds, Soft Labs: CBC, BMP 09/25/17 05:05 09/25/17 05:05 INR, PTT INR 0.96 (0.82-1.09) 09/17/17 06:25 Problem List - Problems (1) Respiratory failure Assessment/Plan: PER ICU TEAM ON VENT NEBS CXR ABX Code(s): J96.90 - RESPIRATORY FAILURE, UNSP, UNSP W HYPOXIA OR HYPERCAPNIA (2) Brain metastasis Assessment/Plan: NEURO CONSULT NOTED Code(s): C79.31 - SECONDARY MALIGNANT NEOPLASM OF BRAIN (3) CVA (cerebral vascular accident) Assessment/Plan: ABOVE--SEE NEURO CONSULT CT WITH HYDROCEPHALUS NS AND NEURO ON CASE FURTHER PLAN PER NEURO- AC Code(s): I63.9 - CEREBRAL INFARCTION, UNSPECIFIED (4) Metastatic colorectal cancer Code(s): C78.5 - SECONDARY MALIGNANT NEOPLASM OF LARGE INTESTINE AND RECTUM (5) Atrial fibrillation Assessment/Plan: ON CARDIZEM-METOPROLOL AND DIG ON HEPARIN CARDIO ON BOARD Code(s): I48.91 - UNSPECIFIED ATRIAL FIBRILLATION (6) Diabetes Assessment/Plan: BGM Code(s): E11.9 - TYPE 2 DIABETES MELLITUS WITHOUT COMPLICATIONS (7) Hypernatremia Assessment/Plan: na 151 renal on board on ivf Code(s): E87.0 - HYPEROSMOLALITY AND HYPERNATREMIA
[2017-09-25] MEDS: HEPARIN SOD,PORK IN 0.45% NACL 25,000 UNITS/500 ML INFUS.BAG IVPB SCH ×2 (09:06→22:06)
[2017-09-25] MEDS: SODIUM CHLORIDE 0.45% 1,000 ML IV SCH (09:15)
[2017-09-25] MEDS: DILTIAZEM INJECTION 125 MG in DEXTROSE 5%-WATER - 100 ML IVPB SCH (09:15)
[2017-09-25] MEDS: MINERAL OIL/PETROLATUM,WHITE 3.5 GM TUBE OU SCH ×2 (09:34→22:08)
[2017-09-25] MEDS: DEXAMETHASONE SOD PHOSPHATE 4 MG/1 ML VIAL IVPUSH SCH (09:35)
[2017-09-25] MEDS: CHLORHEXIDINE GLUCONATE 0.12% 15ML CUP MM SCH ×2 (09:35→22:08)
[2017-09-25] MEDS: PANTOPRAZOLE SODIUM 40 MG VIAL IVPUSH SCH (09:35)
[2017-09-25] MEDS: hydrALAZINE HCL 20 MG/ML VIAL IVPUSH PRN (09:36)
--- NOTE | 2017-09-25 11:41 | PN ---
Progress Note, Physician History of Present Illness: NEPHROLOGY patient seen and examined at bedside intubated - Current Medication List Current Medications: Active Medications Acetaminophen (Ofirmev Injection -) 1,000 mg IVPB Q6H PRN PRN Reason: FEVER OR PAIN Last Admin: 09/20/17 19:19 Dose: 1,000 mg Artificial Tears (Artificial Tears Ointment -) 1 applic OU BID [facility] Last Admin: 09/25/17 09:34 Dose: 1 applic Atorvastatin Calcium (Lipitor -) 20 mg PO HS [facility] Last Admin: 09/24/17 22:00 Dose: 20 mg Chlorhexidine Gluconate (Hibiclens For Decolonization -) 1 applic TP HS [facility] Last Admin: 09/24/17 21:59 Dose: 1 applic Chlorhexidine Gluconate (Peridex -) 15 ml MM BID [facility] Last Admin: 09/25/17 09:35 Dose: 15 ml Ciprofloxacin (Ciloxan 0.3% Eye Drops --) 2 drop OS Q2H [facility] Last Admin: 09/25/17 09:08 Dose: 2 drop Digoxin (Lanoxin Injection -) 0.125 mg IVPUSH Q2D@1000 [facility] Last Admin: 09/24/17 10:12 Dose: 0.125 mg Diltiazem HCl (Cardizem -) 90 mg NGT Q6HPO [facility] Fentanyl (Sublimaze Injection -) 100 mcg IVPUSH ONCE PRN PRN Reason: AGITATION Stop: 09/25/17 23:04 Hydralazine HCl (Apresoline Injection -) 10 mg IVPUSH Q6H PRN PRN Reason: HYPERTENSION Last Admin: 09/25/17 09:36 Dose: 10 mg HEPARIN SOD,PORK IN 0.45% NACL (Heparin-1/2ns 25,000 Units/500) 25,000 units in 500 mls @ 20 mls/hr IVPB TITR CORDELIA; 1,000 UNITS/HR PRN Reason: Protocol Last Admin: 09/25/17 09:06 Dose: 650 units/hr, 13 mls/hr Diltiazem HCl 125 mg/ Dextrose 125 mls @ 5 mls/hr IVPB TITR CORDELIA; 5 MG/HR PRN Reason: Protocol Last Admin: 09/25/17 09:15 Dose: Not Given Sodium Chloride (1/2 Normal Saline) 1,000 mls @ 75 mls/hr IV ASDIR [facility] Last Admin: 09/25/17 09:15 Dose: 75 mls/hr Piperacillin Sod/Tazobactam (Sod 3.375 gm/ Dextrose) 50 mls @ 100 mls/hr IVPB Q8H-IV [facility] Last Admin: 09/25/17 10:06 Dose: 100 mls/hr Propofol (Diprivan -) 1,000,000 mcg in 100 mls @ 21.348 mls/hr IVPB TITR [facility]; 40 MCG/KG/MIN PRN Reason: Protocol Last Titration: 09/25/17 10:09 Dose: 0 mcg/kg/min, 0 mls/hr Insulin Aspart (Novolog Vial Sliding Scale -) 1 vial SQ Q4HPO [facility] PRN Reason: Protocol Last Admin: 09/25/17 10:09 Dose: Not Given Insulin Detemir (Levemir Vial) 15 units SQ [facility] Last Admin: 09/24/17 22:02 Dose: 15 unit Metoprolol Tartrate (Lopressor Injection -) 5 mg IVPUSH Q4H PRN PRN Reason: HYPERTENSION Last Admin: 09/22/17 08:55 Dose: 5 mg Midazolam HCl (Versed -) 1 mg IVPUSH ONCE PRN PRN Reason: AGITATION Stop: 09/25/17 23:06 Ondansetron HCl (Zofran Injection) 4 mg IVPUSH Q6H PRN PRN Reason: NAUSEA Pantoprazole Sodium (Protonix Iv) 40 mg IVPUSH DAILY [facility] Last Admin: 09/25/17 09:35 Dose: 40 mg Trazodone HCl (Desyrel -) 50 mg PO [facility] Last Admin: 09/24/17 21:59 Dose: Not Given - Objective Vital Signs: Vital Signs Temperature 97.8 F 09/25/17 10:00 Pulse Rate 68 09/25/17 10:00 Respiratory Rate 16 09/25/17 10:00 Blood Pressure 139/74 09/25/17 10:00 O2 Sat by Pulse Oximetry (%) 100 09/25/17 09:35 Constitutional: Yes: No Distress Neck: Yes: Supple Cardiovascular: Yes: Regular Rate and Rhythm Respiratory: Yes: Intubated Gastrointestinal: Yes: Soft Edema: LLE: Trace, RLE: Trace Labs: CBC, BMP 09/25/17 05:05 09/25/17 05:05 INR, PTT INR 0.96 (0.82-1.09) 09/17/17 06:25 Assessment/Plan 62F with multiple medical problems in ICU intubated s/p multiple brain infarcts. Problem list HTN HLD CKD SUSAN on CKD DM DKA-resolved Atrial fibrillation lung mass CVA Hyperkalemia proteinuria acute respiratory failure adenocarcinoma Chemoport malfunction s/p removal anemia hypernatremia Hyperkalemia resolved Creatinine 2.0-slightly improved from yesterday continue hypotonic fluids for hypernatremia continue to monitor electrolytes neuro following continue ICU care transfuse PRN-Hb currently stable monitor pulse ox continue to trend creatinine renally dose all medications avoid nephrotoxic drugs nepro feeds with free water Case discussed with Dr. Llanos
[2017-09-25] MEDS ORDERED: FUROSEMIDE 40 MG/4 ML INJECTABLE VIAL IVPUSH ONE (11:51)
[2017-09-25 12:22] LABS: ANISOCYTOSIS 0; MACROCYTOSIS 0; PLATELET ESTIMATE DECREASED
[2017-09-25] MEDS: dilTIAZem HCL 30 MG TABLET (FP) NGT SCH ×2 (12:46→17:37)
--- NOTE | 2017-09-25 12:46 | PN ---
Teaching Attending Note Name of Resident: Lisa Mott ATTENDING PHYSICIAN STATEMENT I saw and evaluated the patient. I reviewed the resident's note and discussed the case with the resident. I agree with the resident's findings and plan as documented. SUBJECTIVE: Pt seen and examined in the ICU. Remains intubated, sedated. Sinus rhythm, hypertensive overnight. No fevers recorded. Tolerating CPAP/PS even while waking up from sedation. OBJECTIVE: Last Vital Signs Temp Pulse Resp BP Pulse Ox 97.8 F 68 16 139/74 100 09/25/17 10:00 09/25/17 10:00 09/25/17 10:00 09/25/17 10:00 09/25/17 09:35 Intake & Output 09/22/17 09/23/17 09/24/17 09/25/17 23:59 23:59 23:59 23:59 Intake Total 2108.2 1288 2214 1340 Output Total 2100 1300 2400 Balance 8.2 -12 -186 1340 Weight 88 kg 88.949 kg 88.587 kg 86.9 kg Gen: intubated, sedated Heart: RRR Lung: scattered rhonchi Abd: soft, nontender Ext: + edema CBC, BMP 09/25/17 05:05 09/25/17 05:05 Active Medications Acetaminophen (Ofirmev Injection -) 1,000 mg IVPB Q6H PRN PRN Reason: FEVER OR PAIN Last Admin: 09/20/17 19:19 Dose: 1,000 mg Artificial Tears (Artificial Tears Ointment -) 1 applic OU BID [facility] Last Admin: 09/25/17 09:34 Dose: 1 applic Atorvastatin Calcium (Lipitor -) 20 mg PO [facility] Last Admin: 09/24/17 22:00 Dose: 20 mg Chlorhexidine Gluconate (Hibiclens For Decolonization -) 1 applic TP HS [facility] Last Admin: 09/24/17 21:59 Dose: 1 applic Chlorhexidine Gluconate (Peridex -) 15 ml MM BID [facility] Last Admin: 09/25/17 09:35 Dose: 15 ml Ciprofloxacin (Ciloxan 0.3% Eye Drops --) 2 drop OS Q2H [facility] Last Admin: 09/25/17 12:41 Dose: 2 drop Digoxin (Lanoxin Injection -) 0.125 mg IVPUSH Q2D@1000 [facility] Last Admin: 09/24/17 10:12 Dose: 0.125 mg Diltiazem HCl (Cardizem -) 90 mg NGT Q6HPO [facility] Fentanyl (Sublimaze Injection -) 100 mcg IVPUSH ONCE PRN PRN Reason: AGITATION Stop: 09/25/17 23:04 Hydralazine HCl (Apresoline Injection -) 10 mg IVPUSH Q6H PRN PRN Reason: HYPERTENSION Last Admin: 09/25/17 09:36 Dose: 10 mg HEPARIN SOD,PORK IN 0.45% NACL (Heparin-1/2ns 25,000 Units/500) 25,000 units in 500 mls @ 20 mls/hr IVPB TITR [facility]; 1,000 UNITS/HR PRN Reason: Protocol Last Admin: 09/25/17 09:06 Dose: 650 units/hr, 13 mls/hr Piperacillin Sod/Tazobactam (Sod 3.375 gm/ Dextrose) 50 mls @ 100 mls/hr IVPB Q8H-IV [facility] Last Admin: 09/25/17 10:06 Dose: 100 mls/hr Propofol (Diprivan -) 1,000,000 mcg in 100 mls @ 21.348 mls/hr IVPB TITR [facility]; 40 MCG/KG/MIN PRN Reason: Protocol Last Titration: 09/25/17 10:09 Dose: 0 mcg/kg/min, 0 mls/hr Insulin Aspart (Novolog Vial Sliding Scale -) 1 vial SQ Q4HPO [facility] PRN Reason: Protocol Last Admin: 09/25/17 10:09 Dose: Not Given Insulin Detemir (Levemir Vial) 15 units SQ [facility] Last Admin: 09/24/17 22:02 Dose: 15 unit Metoprolol Tartrate (Lopressor Injection -) 5 mg IVPUSH Q4H PRN PRN Reason: HYPERTENSION Last Admin: 09/22/17 08:55 Dose: 5 mg Metoprolol Tartrate (Lopressor -) 25 mg PO BID [facility] Midazolam HCl (Versed -) 1 mg IVPUSH ONCE PRN PRN Reason: AGITATION Stop: 09/25/17 23:06 Ondansetron HCl (Zofran Injection) 4 mg IVPUSH Q6H PRN PRN Reason: NAUSEA Pantoprazole Sodium (Protonix Iv) 40 mg IVPUSH DAILY [facility] Last Admin: 09/25/17 09:35 Dose: 40 mg Trazodone HCl (Desyrel -) 50 mg PO HS [facility] Last Admin: 09/24/17 21:59 Dose: Not Given ASSESSMENT AND PLAN: Multiple Acute Embolic CVA Acute Hypoxic Respiratory Failure r/o Aspiration Pneumonia Atrial Fibrillation with RVR Metastatic Colon Ca to Lung Acute on Chronic Renal Failure Hyperkalemia HTN DM Hypercholesterolemia - continue antibiotics - titrate rate control - continue anticoagulation - increase free water via NGT - lasix today as volume overloaded - monitor urine output, creatinine - enteral feeds - hold sedation to assess mental status - spontaneous breathing trials as tolerated - can extubate once mental status improved - CT head ordered by neurology - DVT/GI prophylaxis - continue ICU monitoring critical care time spent in reviewing chart, evaluating patient and formulating plan 35 min
[2017-09-25] MEDS: METOPROLOL TARTRATE 25 MG TABLET (FP) PO SCH ×2 (12:47→22:08)
[2017-09-25] MEDS ORDERED: PROPOFOL 1,000,000 MCG/100 ML VIAL ONE (13:48)
--- NOTE | 2017-09-25 15:37 | PN ---
Teaching Attending Note Name of Resident: Ruben Medina (Nephrology) ATTENDING PHYSICIAN STATEMENT I saw and evaluated the patient. I reviewed the resident's note and discussed the case with the resident. I agree with the resident's findings and plan as documented. Nephrology Pt seen and examined at bedside. She remains in the ICU. She remains intubated. Current Medications Generic Name Dose Route Start Last Admin Trade Name Freq PRN Reason Stop Dose Admin Acetaminophen 1,000 mg 09/15/17 11:50 09/20/17 19:19 Ofirmev Injection - IVPB 1,000 mg Q6H PRN Administration FEVER OR PAIN Artificial Tears 1 applic 09/15/17 22:00 09/25/17 09:34 Artificial Tears Ointment - OU 1 applic BID [facility] Administration Atorvastatin Calcium 20 mg 09/11/17 22:00 09/24/17 22:00 Lipitor - PO 20 mg HS [facility] Administration Chlorhexidine Gluconate 1 applic 09/15/17 22:00 09/24/17 21:59 Hibiclens For Decolonization - TP 1 applic HS [facility] Administration Chlorhexidine Gluconate 15 ml 09/15/17 22:00 09/25/17 09:35 Peridex - MM 15 ml BID [facility] Administration Ciprofloxacin 2 drop 09/16/17 14:45 09/25/17 12:48 Ciloxan 0.3% Eye Drops -- OS 2 drop Q2H [facility] Administration Digoxin 0.125 mg 09/24/17 10:00 09/24/17 10:12 Lanoxin Injection - IVPUSH 0.125 mg Q2D@1000 [facility] Administration Diltiazem HCl 90 mg 09/25/17 12:45 09/25/17 12:46 Cardizem - NGT 90 mg Q6HPO [facility] Administration Fentanyl 100 mcg 09/24/17 23:05 Sublimaze Injection - IVPUSH 09/25/17 23:04 ONCE PRN AGITATION Hydralazine HCl 10 mg 09/11/17 10:25 09/25/17 09:36 Apresoline Injection - IVPUSH 10 mg Q6H PRN Administration HYPERTENSION HEPARIN SOD,PORK IN 0.45% NACL 25,000 units in 500 mls @ 20 mls/hr 09/12/17 20 :00 09/25/17 09:06 Heparin-1/2ns 25,000 Units/500 IVPB 650 units/hr TITR [facility] 13 mls/hr Protocol Administration 1,000 UNITS/HR Piperacillin Sod/Tazobactam 50 mls @ 100 mls/hr 09/23/17 18:00 09/25/17 10:06 Sod 3.375 gm/ Dextrose IVPB 100 mls/hr Q8H-IV [facility] Administration Propofol 1,000,000 mcg in 100 mls @ 21.348 mls/hr 09/23/17 17:30 09/25/17 11: 30 Diprivan - IVPB 15 mcg/kg/min TITR [facility] 8.005 mls/hr Protocol Titration 40 MCG/KG/MIN Insulin Aspart 1 vial 09/19/17 22:07 09/25/17 15:22 Novolog Vial Sliding Scale - SQ Not Given Q4HPO [facility] Protocol Insulin Detemir 15 units 09/19/17 22:00 09/24/17 22:02 Levemir Vial SQ 15 unit HS [facility] Administration Metoprolol Tartrate 5 mg 09/11/17 10:25 09/22/17 08:55 Lopressor Injection - IVPUSH 5 mg Q4H PRN Administration HYPERTENSION Metoprolol Tartrate 25 mg 09/25/17 12:30 09/25/17 12:47 Lopressor - PO 25 mg BID [facility] Administration Midazolam HCl 1 mg 09/24/17 23:07 Versed - IVPUSH 09/25/17 23:06 ONCE PRN AGITATION Ondansetron HCl 4 mg 09/11/17 02:02 Zofran Injection IVPUSH Q6H PRN NAUSEA Pantoprazole Sodium 40 mg 09/23/17 14:15 09/25/17 09:35 Protonix Iv IVPUSH 40 mg DAILY [facility] Administration Trazodone HCl 50 mg 09/20/17 22:00 09/24/17 21:59 Desyrel - PO Not Given HS [facility] Last Vital Signs Temp Pulse Resp BP Pulse Ox 97.8 F 73 16 141/65 100 09/25/17 10:00 09/25/17 12:00 09/25/17 14:10 09/25/17 12:00 09/25/17 09:35 Laboratory Tests 09/24/17 09/25/17 05:10 05:05 Hgb 11.0 Sodium 151 H BUN 63 H Creatinine 1.6 H Laboratory Tests 09/25/17 05:05 Potassium 4.3 cardio s1s2 pulm bilateral vent sounds GI soft ext edema bateman in place neuro sedated Impression 1. CKD 2. SUSAN 3. DM 4. htn 5. chol 6. chemo port malfunction 7. a-fib 8. lung mass 9. proteinuria 10. adenocarcinoma 11. CVA 12. acute resp failure 13. hyperkalemia Plan - potassium is stable - renal function is improved - hg improved - sodium is elevated, cont with free water via ng tube - discussed with ICU team - weaning per ICU - will follow Problem List - Problems (1) Brain metastasis Code(s): C79.31 - SECONDARY MALIGNANT NEOPLASM OF BRAIN (2) Headache Code(s): R51 - HEADACHE Qualifiers: Headache chronicity pattern: unspecified pattern Intractability: intractable (3) Metastatic colorectal cancer Code(s): C78.5 - SECONDARY MALIGNANT NEOPLASM OF LARGE INTESTINE AND RECTUM (4) SUSAN (acute kidney injury) Code(s): N17.9 - ACUTE KIDNEY FAILURE, UNSPECIFIED (5) Atrial fibrillation Code(s): I48.91 - UNSPECIFIED ATRIAL FIBRILLATION (6) Cancer, colon Code(s): C18.9 - MALIGNANT NEOPLASM OF COLON, UNSPECIFIED Qualifiers: Colon location: unspecified part of colon Qualified Code(s): C18.9 - Malignant neoplasm of colon, unspecified (7) Lung mass Code(s): R91.8 - OTHER NONSPECIFIC ABNORMAL FINDING OF LUNG FIELD
[2017-09-25] MEDS: PROPOFOL 1,000,000 MCG/100 ML VIAL IVPB SCH (17:48)
[2017-09-25] MEDS: INSULIN DETEMIR 100 UNITS/ML MDV SQ SCH (22:00)
[2017-09-25] MEDS: traZODone HCL 50 MG TABLET (FP) PO SCH (22:00)
[2017-09-25] MEDS: CHLORHEXIDINE GLUCONATE 4% CLEANSER FOR DECOLONIZATION TP SCH (22:08)
[2017-09-25] MEDS: ATORVASTATIN CA 20 MG TABLET (FP) PO SCH (22:08)
[2017-09-26] MEDS: dilTIAZem HCL 30 MG TABLET (FP) NGT SCH ×5 (01:00→23:26)
[2017-09-26] MEDS: CIPROFLOXACIN 0.3% EYE DROPS 5 ML BOTTLE OS SCH ×12 (01:00→23:00)
[2017-09-26] MEDS: PIPERACILLIN/TAZOB 3.375 GM 3.375 GM in DEXTROSE 5%-WATER - 50 ML IVPB SCH ×3 (02:05→17:51)
[2017-09-26] MEDS: INSULIN SLIDING SCALE (NOVOLOG) 1 VIAL SQ SCH ×6 (02:16→23:19)
[2017-09-26] MEDS ORDERED: PT OWN MED DRAWER 7, Y5N ONE ×5 (03:02→21:59)
--- NOTE | 2017-09-26 06:26 | PROC ---
Procedure Note Procedure: BRIEF [facility] ICU PROCEDURE NOTE: ROSALIND LAROSE [id number] PROCEDURE: MIDLINE INDICATION: POOR VENOUS ACCESS I did evaluate the pts R brachial vein w/ US & I did appreciate the vessel to be healthy, patent, & easily accessible. The site was prepped & draped in the usual sterile fashion. STOP TIME OUT I did conduct a Time Out w/ the pt's Nurse (Katt) @ the bedside. I did anesthetize the target site w/ 2cc 1% Lido. I then entered the pts R brachial vein under US guidance w/ a 21G introducer needle & I did appreciate the flow of non-pulsatile dark venous blood. I then threaded a 50cm Nitinol straight tip Flexura guidewire through the needle into the pts R brachial vein & removed the needle. I then passed a 5.0 Fr MicroEZ Micro introducer w/ vessel dilator over the wire & into the vessel using the seldinger technique. I removed the central stylette & threaded a 5Fr dual lumen 20cm midline through the sheath into the vessel & then I broke away the sheath & advanced the Midline to the 20cm hub. I did appreciate the return of Dark Venous non-pulsatile blood in both ports. Both ports were flushed & capped in the usual sterile fashion. The line was secured w/ the STAT-Lock system. I placed a Bio-disc on the site where the line enters the skin. I applied a sterile dressing to the entire site. The pt tolerated the procedure well. DGL, ACNP-BC [facility] ICU PULM/CCM [id number]
[2017-09-26] MEDS ORDERED: INSULIN (NOVOLOG) ASPART 100 UNITS/ML 10ML VIAL ONE ×3 (07:00→17:29)
[2017-09-26 07:14] LABS: HEMATOCRIT 33.1 % (32.4-45.2); HEMOGLOBIN 10.7 GM/dL (10.7-15.3); MCH 27.2 pg (25.7-33.7); MCHC 32.3 g/dl (32.0-36.0); MEAN CELL VOLUME 84.1 fl (80-96); MEAN PLT VOLUME 8.7 fl (7.5-11.1); PLATELET COUNT 165 K/MM3 (134-434); RBC 3.93 M/mm3 (3.60-5.2); RDW 16.3 % (11.6-15.6); WHITE BLOOD COUNT 14.4 K/mm3 (4.0-10.0)
[2017-09-26 07:22] LABS: ALBUMIN 1.6 g/dl (3.4-5.0); ANION GAP 10 (8-16); BLOOD UREA NITROGEN 58 mg/dL (7-18); CALCIUM 7.4 mg/dL (8.5-10.1); CHLORIDE 113 mmol/L (98-107); CO2 25 mmol/L (21-32); CREATININE 1.7 mg/dL (0.55-1.02); GLUCOSE,RANDOM 140 mg/dL (74-106); MAGNESIUM 2.1 mg/dL (1.8-2.4); PHOSPHOROUS 4.9 mg/dL (2.5-4.9); POTASSIUM 3.9 mmol/L (3.5-5.1); SGOT/AST 25 U/L (15-37); SGPT/ALT 28 U/L (12-78); SODIUM 148 mmol/L (136-145)
[2017-09-26 07:24] LABS: ALK PHOS 74 U/L (45-117); BILIRUBIN,TOTAL 0.3 mg/dL (0.2-1.0); TOT PROT 4.3 g/dl (6.4-8.2)
--- NOTE | 2017-09-26 07:42 | PN ---
Progress Note, Physician Chief Complaint: ID Day 3 Pip tazobactam Remains intubated - Current Medication List Current Medications: Active Medications Acetaminophen (Ofirmev Injection -) 1,000 mg IVPB Q6H PRN PRN Reason: FEVER OR PAIN Last Admin: 09/20/17 19:19 Dose: 1,000 mg Artificial Tears (Artificial Tears Ointment -) 1 applic OU BID [facility] Last Admin: 09/25/17 22:08 Dose: 1 applic Atorvastatin Calcium (Lipitor -) 20 mg PO HS [facility] Last Admin: 09/25/17 22:08 Dose: 20 mg Chlorhexidine Gluconate (Hibiclens For Decolonization -) 1 applic TP HS [facility] Last Admin: 09/25/17 22:08 Dose: 1 applic Chlorhexidine Gluconate (Peridex -) 15 ml MM BID [facility] Last Admin: 09/25/17 22:08 Dose: 15 ml Ciprofloxacin (Ciloxan 0.3% Eye Drops --) 2 drop OS Q2H [facility] Last Admin: 09/26/17 06:38 Dose: 2 drop Digoxin (Lanoxin Injection -) 0.125 mg IVPUSH Q2D@1000 [facility] Last Admin: 09/24/17 10:12 Dose: 0.125 mg Diltiazem HCl (Cardizem -) 90 mg NGT Q6HPO [facility] Last Admin: 09/26/17 06:31 Dose: 90 mg Hydralazine HCl (Apresoline Injection -) 10 mg IVPUSH Q6H PRN PRN Reason: HYPERTENSION Last Admin: 09/25/17 09:36 Dose: 10 mg HEPARIN SOD,PORK IN 0.45% NACL (Heparin-1/2ns 25,000 Units/500) 25,000 units in 500 mls @ 20 mls/hr IVPB TITR [facility]; 1,000 UNITS/HR PRN Reason: Protocol Last Admin: 09/25/17 22:06 Dose: 650 units/hr, 13 mls/hr Piperacillin Sod/Tazobactam (Sod 3.375 gm/ Dextrose) 50 mls @ 100 mls/hr IVPB Q8H-IV [facility] Last Admin: 09/26/17 02:05 Dose: 100 mls/hr Propofol (Diprivan -) 1,000,000 mcg in 100 mls @ 21.348 mls/hr IVPB TITR [facility]; 40 MCG/KG/MIN PRN Reason: Protocol Last Titration: 09/25/17 18:26 Dose: 40 mcg/kg/min, 21.348 mls/hr Insulin Aspart (Novolog Vial Sliding Scale -) 1 vial SQ Q4HPO [facility] PRN Reason: Protocol Last Admin: 09/26/17 06:59 Dose: 2 units Insulin Detemir (Levemir Vial) 10 units SQ HS [facility] Metoprolol Tartrate (Lopressor Injection -) 5 mg IVPUSH Q4H PRN PRN Reason: HYPERTENSION Last Admin: 09/22/17 08:55 Dose: 5 mg Metoprolol Tartrate (Lopressor -) 25 mg PO BID [facility] Last Admin: 09/25/17 22:08 Dose: 25 mg Ondansetron HCl (Zofran Injection) 4 mg IVPUSH Q6H PRN PRN Reason: NAUSEA Pantoprazole Sodium (Protonix Iv) 40 mg IVPUSH DAILY [facility] Last Admin: 09/25/17 09:35 Dose: 40 mg Trazodone HCl (Desyrel -) 50 mg PO HS [facility] Last Admin: 09/25/17 22:00 Dose: Not Given - Objective Vital Signs: Vital Signs Temperature 98.7 F 09/26/17 06:00 Pulse Rate 57 L 09/26/17 06:00 Respiratory Rate 13 09/26/17 06:00 Blood Pressure 130/67 09/26/17 06:00 O2 Sat by Pulse Oximetry (%) 99 09/25/17 21:00 Constitutional: Yes: Other (ON the vent) Cardiovascular: Yes: Regular Rate and Rhythm, S1, S2 Respiratory: Yes: WNL, Regular, CTA Bilaterally Gastrointestinal: Yes: WNL, Normal Bowel Sounds, Soft. No: Tenderness Extremities: No: Cold, Cool, Cyanosis Edema: No Labs: INR, PTT INR 0.96 (0.82-1.09) 09/17/17 06:25 Problem List - Problems (1) Pneumonia Code(s): J18.9 - PNEUMONIA, UNSPECIFIED ORGANISM (2) Brain metastasis Code(s): C79.31 - SECONDARY MALIGNANT NEOPLASM OF BRAIN (3) CVA (cerebral vascular accident) Code(s): I63.9 - CEREBRAL INFARCTION, UNSPECIFIED (4) Metastatic colorectal cancer Code(s): C78.5 - SECONDARY MALIGNANT NEOPLASM OF LARGE INTESTINE AND RECTUM (5) Respiratory failure Code(s): J96.90 - RESPIRATORY FAILURE, UNSP, UNSP W HYPOXIA OR HYPERCAPNIA Assessment/Plan Microbiology 09/23/17 17:00 Sputum - Endotrachea Suction/Ventilator Gram Stain - Final 09/23/17 17:00 Sputum - Endotrachea Suction/Ventilator Sputum Culture - Preliminary NORMAL RESPIRATORY ADRIAN 09/23/17 17:00 Blood - Peripheral Venous Blood Culture - Preliminary NO GROWTH OBTAINED AFTER 48 HOURS, INCUBATION TO CONTINUE FOR 3 DAYS. 09/23/17 17:00 Blood - Peripheral Venous Blood Culture - Preliminary NO GROWTH OBTAINED AFTER 48 HOURS, INCUBATION TO CONTINUE FOR 3 DAYS. Laboratory Tests 09/25/17 09/25/17 09/25/17 05:05 05:05 05:05 WBC 14.3 H Hgb 10.6 L Plt Count 167 BUN 63 H Creatinine 1.6 H Creat Clearance w eGFR 32.88 Random Vancomycin 7.532 09/26/17 06:00 WBC Pending Hgb Pending Plt Count Pending BUN Creatinine Creat Clearance w eGFR Random Vancomycin Assessment Metastatic colon cancer with suspected aspiration and pulmonary infiltrates culture negative Plan Would continue present antibiotic therapy through the weekend Sergo HIGUERA
[2017-09-26] MEDS: MINERAL OIL/PETROLATUM,WHITE 3.5 GM TUBE OU SCH ×2 (09:03→22:01)
[2017-09-26] MEDS: PANTOPRAZOLE SODIUM 40 MG VIAL IVPUSH SCH (09:04)
[2017-09-26] MEDS: DIGOXIN 0.5 MG/2 ML AMPUL IVPUSH SCH (09:04)
[2017-09-26 10:03] LABS: ARTERIAL BLD GAS O2 SATURATION 98.2 % (90-98.9); ARTERIAL BLOOD GAS BASE EXCESS -0.1 meq/l (-2-2); ARTERIAL BLOOD GAS PCO2 38.1 mmHg (35-45); ARTERIAL BLOOD GAS pH 7.41 (7.35-7.45)
[2017-09-26] MEDS: CHLORHEXIDINE GLUCONATE 0.12% 15ML CUP MM SCH (10:03)
[2017-09-26] MEDS: METOPROLOL TARTRATE 25 MG TABLET (FP) PO SCH ×2 (10:03→21:56)
--- NOTE | 2017-09-26 12:18 | PN ---
Teaching Attending Note Name of Resident: Lisa Mott ATTENDING PHYSICIAN STATEMENT I saw and evaluated the patient. I reviewed the resident's note and discussed the case with the resident. I agree with the resident's findings and plan as documented. SUBJECTIVE: Patient seen and examined in the ICU. Remains intubated, awake. Easily arousable. No pressors. RSBI on CPAP 5: 72. Intake & Output 09/23/17 09/24/17 09/25/17 09/26/17 23:59 23:59 23:59 23:59 Intake Total 1288 2214 2554 666 Output Total 1300 2400 2900 400 Balance -12 -186 -346 266 Weight 196 lb 1.6 oz 195 lb 4.8 oz 191 lb 9.307 oz 186 lb 11.704 oz Last Vital Signs Temp Pulse Resp BP Pulse Ox 97.3 F L 95 H 16 167/81 100 09/26/17 10:20 09/26/17 10:20 09/26/17 12:00 09/26/17 12:00 09/26/17 07:47 Active Medications Acetaminophen (Ofirmev Injection -) 1,000 mg IVPB Q6H PRN PRN Reason: FEVER OR PAIN Last Admin: 09/20/17 19:19 Dose: 1,000 mg Artificial Tears (Artificial Tears Ointment -) 1 applic OU BID [facility] Last Admin: 09/26/17 09:03 Dose: 1 applic Atorvastatin Calcium (Lipitor -) 20 mg PO HS [facility] Last Admin: 09/25/17 22:08 Dose: 20 mg Chlorhexidine Gluconate (Hibiclens For Decolonization -) 1 applic TP HS [facility] Last Admin: 09/25/17 22:08 Dose: 1 applic Chlorhexidine Gluconate (Peridex -) 15 ml MM BID [facility] Last Admin: 09/26/17 10:03 Dose: 15 ml Ciprofloxacin (Ciloxan 0.3% Eye Drops --) 2 drop OS Q2H [facility] Last Admin: 09/26/17 10:02 Dose: 2 drop Digoxin (Lanoxin Injection -) 0.125 mg IVPUSH Q2D@1000 [facility] Last Admin: 09/26/17 09:04 Dose: 0.125 mg Diltiazem HCl (Cardizem -) 90 mg NGT Q6HPO [facility] Last Admin: 09/26/17 11:41 Dose: 90 mg Hydralazine HCl (Apresoline Injection -) 10 mg IVPUSH Q6H PRN PRN Reason: HYPERTENSION Last Admin: 09/25/17 09:36 Dose: 10 mg HEPARIN SOD,PORK IN 0.45% NACL (Heparin-1/2ns 25,000 Units/500) 25,000 units in 500 mls @ 20 mls/hr IVPB TITR [facility]; 1,000 UNITS/HR PRN Reason: Protocol Last Admin: 09/25/17 22:06 Dose: 650 units/hr, 13 mls/hr Piperacillin Sod/Tazobactam (Sod 3.375 gm/ Dextrose) 50 mls @ 100 mls/hr IVPB Q8H-IV [facility] Last Admin: 09/26/17 09:04 Dose: 100 mls/hr Propofol (Diprivan -) 1,000,000 mcg in 100 mls @ 21.348 mls/hr IVPB TITR [facility]; 40 MCG/KG/MIN PRN Reason: Protocol Last Titration: 09/25/17 18:26 Dose: 40 mcg/kg/min, 21.348 mls/hr Insulin Aspart (Novolog Vial Sliding Scale -) 1 vial SQ Q4HPO [facility] PRN Reason: Protocol Last Admin: 09/26/17 10:47 Dose: 2 units Insulin Detemir (Levemir Vial) 10 units SQ [facility] Metoprolol Tartrate (Lopressor Injection -) 5 mg IVPUSH Q4H PRN PRN Reason: HYPERTENSION Last Admin: 09/22/17 08:55 Dose: 5 mg Metoprolol Tartrate (Lopressor -) 25 mg PO BID [facility] Last Admin: 09/26/17 10:03 Dose: 25 mg Ondansetron HCl (Zofran Injection) 4 mg IVPUSH Q6H PRN PRN Reason: NAUSEA Pantoprazole Sodium (Protonix Iv) 40 mg IVPUSH DAILY [facility] Last Admin: 09/26/17 09:04 Dose: 40 mg Trazodone HCl (Desyrel -) 50 mg PO [facility] Last Admin: 09/25/17 22:00 Dose: Not Given Gen: intubated, awake Heart: RRR Lung: scattered rhonchi Abd: soft, nontender Ext: + edema Laboratory Results - last 24 hr 09/25/17 09/25/17 09/25/17 05:05 17:45 22:19 WBC RBC Hgb Hct MCV MCH MCHC RDW Plt Count MPV Neutrophils % Neutrophils % (Manual) 90.5 H* Band Neutrophils % 0.0 Lymphocytes % Lymphocytes % (Manual) 6.3 L D Monocytes % (Manual) 2 L D Eosinophils % (Manual) 0.0 Basophils % (Manual) 0.0 Myelocytes % (Man) 0 Metamyelocytes 0 Hypochromia 0 Platelet Estimate Decreased Polychromasia 0 Poikilocytosis 3+ Anisocytosis 0 Microcytosis 0 Macrocytosis 0 PTT (Actin FS) Puncture Site ABG pH ABG pCO2 at Pt Temp ABG pO2 at Pt Temp ABG HCO3 ABG O2 Sat (Measured) ABG O2 Content ABG Base Excess Addy Test Oxygen Flow Rate Vent Mode Mechanical Rate Sodium Potassium Chloride Carbon Dioxide Anion Gap BUN Creatinine Creat Clearance w eGFR POC Glucometer 129.61996 145.22670 Random Glucose Calcium Phosphorus Magnesium Total Bilirubin AST ALT Alkaline Phosphatase Total Protein Albumin 09/26/17 09/26/17 09/26/17 06:00 06:00 06:00 WBC 14.4 H RBC 3.93 Hgb 10.7 Hct 33.1 MCV 84.1 MCH 27.2 MCHC 32.3 RDW 16.3 H Plt Count 165 MPV 8.7 Neutrophils % No Result Required. Neutrophils % (Manual) Band Neutrophils % Lymphocytes % No Result Required. Lymphocytes % (Manual) Monocytes % (Manual) Eosinophils % (Manual) Basophils % (Manual) Myelocytes % (Man) Metamyelocytes Hypochromia Platelet Estimate Polychromasia Poikilocytosis Anisocytosis Microcytosis Macrocytosis PTT (Actin FS) 125.2 H D Puncture Site ABG pH ABG pCO2 at Pt Temp ABG pO2 at Pt Temp ABG HCO3 ABG O2 Sat (Measured) ABG O2 Content ABG Base Excess Addy Test Oxygen Flow Rate Vent Mode Mechanical Rate Sodium 148 H Potassium 3.9 Chloride 113 H Carbon Dioxide 25 Anion Gap 10 BUN 58 H Creatinine 1.7 H Creat Clearance w eGFR 30.66 POC Glucometer Random Glucose 140 H Calcium 7.4 L Phosphorus 4.9 Magnesium 2.1 Total Bilirubin 0.3 AST 25 ALT 28 Alkaline Phosphatase 74 Total Protein 4.3 L Albumin 1.6 L 01/19/18 01/19/18 01/19/18 06:57 09:54 10:05 WBC RBC Hgb Hct MCV MCH MCHC RDW Plt Count MPV Neutrophils % Neutrophils % (Manual) Band Neutrophils % Lymphocytes % Lymphocytes % (Manual) Monocytes % (Manual) Eosinophils % (Manual) Basophils % (Manual) Myelocytes % (Man) Metamyelocytes Hypochromia Platelet Estimate Polychromasia Poikilocytosis Anisocytosis Microcytosis Macrocytosis PTT (Actin FS) Puncture Site Other ABG pH 7.41 ABG pCO2 at Pt Temp 38.1 ABG pO2 at Pt Temp 113.0 H ABG HCO3 23.7 ABG O2 Sat (Measured) 98.2 ABG O2 Content 18.1 ABG Base Excess -0.1 Addy Test Not applicable Oxygen Flow Rate 40% Vent Mode 5/5 Mechanical Rate Psv/cpap Sodium Potassium Chloride Carbon Dioxide Anion Gap BUN Creatinine Creat Clearance w eGFR POC Glucometer 161.87177 195.81081 Random Glucose Calcium Phosphorus Magnesium Total Bilirubin AST ALT Alkaline Phosphatase Total Protein Albumin 09/26/17 10:20 WBC RBC Hgb Hct MCV MCH MCHC RDW Plt Count MPV Neutrophils % Neutrophils % (Manual) Band Neutrophils % Lymphocytes % Lymphocytes % (Manual) Monocytes % (Manual) Eosinophils % (Manual) Basophils % (Manual) Myelocytes % (Man) Metamyelocytes Hypochromia Platelet Estimate Polychromasia Poikilocytosis Anisocytosis Microcytosis Macrocytosis PTT (Actin FS) 154.9 H Puncture Site ABG pH ABG pCO2 at Pt Temp ABG pO2 at Pt Temp ABG HCO3 ABG O2 Sat (Measured) ABG O2 Content ABG Base Excess Addy Test Oxygen Flow Rate Vent Mode Mechanical Rate Sodium Potassium Chloride Carbon Dioxide Anion Gap BUN Creatinine Creat Clearance w eGFR POC Glucometer Random Glucose Calcium Phosphorus Magnesium Total Bilirubin AST ALT Alkaline Phosphatase Total Protein Albumin ASSESSMENT AND PLAN: Multiple Acute Embolic CVA Acute Hypoxic Respiratory Failure r/o Aspiration Pneumonia Atrial Fibrillation with RVR Metastatic Colon Ca to Lung Acute on Chronic Renal Failure Hyperkalemia HTN DM Hypercholesterolemia - continue antibiotics - titrate rate control - continue anticoagulation - free water via NGT - lasix today as volume overloaded - monitor urine output, creatinine - enteral feeds - hold all sedation - DVT/GI prophylaxis - continue ICU monitoring - Trial of extubation Dr Kaplan Critical care time spent in reviewing chart, evaluating patient and formulating plan 36 min
[2017-09-26] MEDS: HEPARIN SOD,PORK IN 0.45% NACL 25,000 UNITS/500 ML INFUS.BAG IVPB SCH (12:40)
[2017-09-26 14:03] LABS: ANISOCYTOSIS 1+; MACROCYTOSIS 0
[2017-09-26 14:06] LABS: PLATELET ESTIMATE ADEQUATE
[2017-09-26] MEDS ORDERED: FUROSEMIDE 40 MG/4 ML INJECTABLE VIAL IVPUSH ONE (14:54)
--- NOTE | 2017-09-26 15:00 | PN ---
Physical Exam: SUBJECTIVE: Patient seen and examined. Had repeat head CT yesterday. No new events overnight. OBJECTIVE: Vital Signs Period Temp Pulse Resp BP Sys/Mcdaniel Pulse Ox Last 24 Hr 97.3 F-98.7 F 54-105 10-21 118-167/65-81 99-100 GENERAL: The patient is intubated off sedation but drowsy, but obeys commands. - WBT-[place]-12, TV-400, fi02-40%, 5/5 HEAD: Healing L eye bruise. EYES: Bilaterally reacting pupils. Improving L eye hyphema ENT:ETT and NGT in place NECK: supple. LUNGS: Vesicular breath sounds equal, fine creps >R HEART:Rate controlled, S1, S2 . ABDOMEN: Soft, nontender, nondistended, normoactive bowel sounds, EXTREMITIES: 2+ pulses, warm, well-perfused, no edema, SCDs. NEUROLOGICAL: Drowsy, moving all limbs PSYCH: drowsy Lines: NGT, ETT, Bateman, LUE peripheral line Laboratory Results - last [address] head 09/26/17: Mild obstructive hydrocephalus diminished in comparison to prior CT of 09/16/17. Subacute infra/supratentorial infarcts seen. Small bilateral frontoparietal subcortical foci edema noted without mass effect which may represent additional subacute infarcts vs metastatic neoplastic lesions. Microbiology 09/23/17 17:00 Blood - Peripheral Venous Blood Culture - Preliminary NO GROWTH OBTAINED AFTER 48 HOURS, INCUBATION TO CONTINUE FOR 3 DAYS. 09/23/17 17:00 Blood - Peripheral Venous Blood Culture - Preliminary NO GROWTH OBTAINED AFTER 48 HOURS, INCUBATION TO CONTINUE FOR 3 DAYS. 09/23/17 17:00 Sputum - Endotrachea Suction/Ventilator Gram Stain - Final 09/23/17 17:00 Sputum - Endotrachea Suction/Ventilator Sputum Culture - Preliminary NORMAL RESPIRATORY ADRIAN 09/23/17 09/25/17 09/25/17 11:45 17:45 22:19 WBC RBC Hgb Hct MCV MCH MCHC RDW Plt Count MPV Neutrophils % Neutrophils % (Manual) Band Neutrophils % Lymphocytes % Lymphocytes % (Manual) Monocytes % (Manual) Eosinophils % (Manual) Basophils % (Manual) Myelocytes % (Man) Metamyelocytes Hypochromia Platelet Estimate Polychromasia Poikilocytosis Anisocytosis Microcytosis Macrocytosis PTT (Actin FS) Puncture Site ABG pH ABG pCO2 at Pt Temp ABG pO2 at Pt Temp ABG HCO3 ABG O2 Sat (Measured) ABG O2 Content ABG Base Excess Addy Test Oxygen Flow Rate Vent Mode Mechanical Rate Sodium Potassium Chloride Carbon Dioxide Anion Gap BUN Creatinine Creat Clearance w eGFR POC Glucometer 129.06482 145.90558 Random Glucose Calcium Phosphorus Magnesium Total Bilirubin AST ALT Alkaline Phosphatase Total Protein Albumin HIV 1&2 Antibody Screen HIV P24 Antigen Blood Type O POSITIVE Antibody Screen Negative Crossmatch See Detail 09/26/17 09/26/17 09/26/17 06:00 06:00 06:00 WBC 14.4 H RBC 3.93 Hgb 10.7 Hct 33.1 MCV 84.1 MCH 27.2 MCHC 32.3 RDW 16.3 H Plt Count 165 MPV 8.7 Neutrophils % No Result Required. Neutrophils % (Manual) 86.6 H Band Neutrophils % 5.2 Lymphocytes % No Result Required. Lymphocytes % (Manual) 4.1 L D Monocytes % (Manual) 2 L Eosinophils % (Manual) 0.0 Basophils % (Manual) 0.0 Myelocytes % (Man) 0 Metamyelocytes 1 D Hypochromia 0 Platelet Estimate Adequate Polychromasia 1+ Poikilocytosis 2+ Anisocytosis 1+ Microcytosis 0 Macrocytosis 0 PTT (Actin FS) 125.2 H D Puncture Site ABG pH ABG pCO2 at Pt Temp ABG pO2 at Pt Temp ABG HCO3 ABG O2 Sat (Measured) ABG O2 Content ABG Base Excess Addy Test Oxygen Flow Rate Vent Mode Mechanical Rate Sodium 148 H Potassium 3.9 Chloride 113 H Carbon Dioxide 25 Anion Gap 10 BUN 58 H Creatinine 1.7 H Creat Clearance w eGFR 30.66 POC Glucometer Random Glucose 140 H Calcium 7.4 L Phosphorus 4.9 Magnesium 2.1 Total Bilirubin 0.3 AST 25 ALT 28 Alkaline Phosphatase 74 Total Protein 4.3 L Albumin 1.6 L HIV 1&2 Antibody Screen HIV P24 Antigen Blood Type Antibody Screen Crossmatch 09/26/17 09/26/17 09/26/17 06:57 09:54 10:05 WBC RBC Hgb Hct MCV MCH MCHC RDW Plt Count MPV Neutrophils % Neutrophils % (Manual) Band Neutrophils % Lymphocytes % Lymphocytes % (Manual) Monocytes % (Manual) Eosinophils % (Manual) Basophils % (Manual) Myelocytes % (Man) Metamyelocytes Hypochromia Platelet Estimate Polychromasia Poikilocytosis Anisocytosis Microcytosis Macrocytosis PTT (Actin FS) Puncture Site Other ABG pH 7.41 ABG pCO2 at Pt Temp 38.1 ABG pO2 at Pt Temp 113.0 H ABG HCO3 23.7 ABG O2 Sat (Measured) 98.2 ABG O2 Content 18.1 ABG Base Excess -0.1 Addy Test Not applicable Oxygen Flow Rate 40% Vent Mode 5/5 Mechanical Rate Psv/cpap Sodium Potassium Chloride Carbon Dioxide Anion Gap BUN Creatinine Creat Clearance w eGFR POC Glucometer 161.08456 195.50257 Random Glucose Calcium Phosphorus Magnesium Total Bilirubin AST ALT Alkaline Phosphatase Total Protein Albumin HIV 1&2 Antibody Screen HIV P24 Antigen Blood Type Antibody Screen Crossmatch 09/26/17 09/26/17 09/26/17 10:20 12:40 12:40 WBC RBC Hgb Hct MCV MCH MCHC RDW Plt Count MPV Neutrophils % Neutrophils % (Manual) Band Neutrophils % Lymphocytes % Lymphocytes % (Manual) Monocytes % (Manual) Eosinophils % (Manual) Basophils % (Manual) Myelocytes % (Man) Metamyelocytes Hypochromia Platelet Estimate Polychromasia Poikilocytosis Anisocytosis Microcytosis Macrocytosis PTT (Actin FS) 154.9 H Puncture Site ABG pH ABG pCO2 at Pt Temp ABG pO2 at Pt Temp ABG HCO3 ABG O2 Sat (Measured) ABG O2 Content ABG Base Excess Addy Test Oxygen Flow Rate Vent Mode Mechanical Rate Sodium Potassium Chloride Carbon Dioxide Anion Gap BUN Creatinine Creat Clearance w eGFR POC Glucometer Random Glucose Calcium Phosphorus Magnesium Total Bilirubin AST ALT 37 Alkaline Phosphatase Total Protein Albumin HIV 1&2 Antibody Screen Negative HIV P24 Antigen Negative Blood Type Antibody Screen Crossmatch Active Medications Generic Name Dose Route Start Last Admin Trade Name Freq PRN Reason Stop Dose Admin Acetaminophen 1,000 mg 09/15/17 11:50 09/20/17 19:19 Ofirmev Injection - IVPB 1,000 mg Q6H PRN Administration FEVER OR PAIN Artificial Tears 1 applic 09/15/17 22:00 09/26/17 09:03 Artificial Tears Ointment - OU 1 applic BID COR[facility] Administration Atorvastatin Calcium 20 mg 09/11/17 22:00 09/25/17 22:08 Lipitor - PO 20 mg HS [facility] Administration Chlorhexidine Gluconate 1 applic 09/15/17 22:00 09/25/17 22:08 Hibiclens For Decolonization - TP 1 applic HS COR[facility]IA Administration Chlorhexidine Gluconate 15 ml 09/15/17 22:00 09/26/17 10:03 Peridex - MM 15 ml BID COR[facility]IA Administration Ciprofloxacin 2 drop 09/16/17 14:45 09/26/17 14:43 Ciloxan 0.3% Eye Drops -- OS 2 drop Q2H COR[facility]IA Administration Digoxin 0.125 mg 09/24/17 10:00 09/26/17 09:04 Lanoxin Injection - IVPUSH 0.125 mg Q2D@1000 COR[facility]IA Administration Diltiazem HCl 90 mg 09/25/17 12:45 09/26/17 11:41 Cardizem - NGT 90 mg Q6HPO COR[facility]IA Administration Hydralazine HCl 10 mg 09/11/17 10:25 09/25/17 09:36 Apresoline Injection - IVPUSH 10 mg Q6H PRN Administration HYPERTENSION HEPARIN SOD,PORK IN 0.45% NACL 25,000 units in 500 mls @ 20 mls/hr 09/12/17 20 :00 09/25/17 22:06 Heparin-1/2ns 25,000 Units/500 IVPB 650 units/hr TITR CORDELIA 13 mls/hr Protocol Administration 1,000 UNITS/HR Piperacillin Sod/Tazobactam 50 mls @ 100 mls/hr 09/23/17 18:00 09/26/17 09:04 Sod 3.375 gm/ Dextrose IVPB 100 mls/hr Q8H-IV [facility] Administration Propofol 1,000,000 mcg in 100 mls @ 21.348 mls/hr 09/23/17 17:30 09/25/17 18: 26 Diprivan - IVPB 40 mcg/kg/min TITR COR[facility]IA 21.348 mls/hr Protocol Titration 40 MCG/KG/MIN Insulin Aspart 1 vial 09/19/17 22:07 09/26/17 14:43 Novolog Vial Sliding Scale - SQ 2 units Q4HPO COR[facility] Administration Protocol Insulin Detemir 10 units 09/26/17 22:00 Levemir Vial SQ HS [facility] Metoprolol Tartrate 5 mg 09/11/17 10:25 09/22/17 08:55 Lopressor Injection - IVPUSH 5 mg Q4H PRN Administration HYPERTENSION Metoprolol Tartrate 25 mg 09/25/17 12:30 09/26/17 10:03 Lopressor - PO 25 mg BID [facility] Administration Ondansetron HCl 4 mg 09/11/17 02:02 Zofran Injection IVPUSH Q6H PRN NAUSEA Pantoprazole Sodium 40 mg 09/23/17 14:15 09/26/17 09:04 Protonix Iv IVPUSH 40 mg DAILY [facility] Administration Trazodone HCl 50 mg 09/20/17 22:00 09/25/17 22:00 Desyrel - PO Not Given HS [facility] ASSESSMENT/PLAN: 62 yo F with PMHx of HTN, paroxysmal atrial fibrillation on apixaban, DM, HLD, CKD, GERD and colon CA s/p colectomy 2011 with mets to lung admitted to ICU for AMS now reintubated x 3 (09/23/17) Neuro/opth:. AMS- intubated and off sedation, obeys commands Actively moving all limbs R/O critical illness polyneuropathy AMS 2/2 to cerebral edema from multiple acute infarcts with background Afib L eye hyphema- cipro ointment OS Q2H Haldol 2mg Repeat CT head- Hold off fentanyl and midazolam Respiratory: Acute hypercapneic hypoxic resp failure- reintubated x 3 (09/23/17)- VCV-AC-RR -12, TV-400, fi02-40%, 5/5 Blood gases improved, CXR-improved Changed to CPAP [id number], 400 and 5 Placed on CPAP- tolerated well For extubation on 09/26/17 CXR Sputum cultures- pending Renal: SUSAN R/O CKD Cr- 1.6 (about patient's baseline)- improving Hyperkalemia- improved Iv lasix 40mg stat hypernatremia- Hyperphosphatemia Hypermagnesemia CMP,Mg, Phosphorus On nepro feeds Hold ramipril (with failure) Monitor Metabolic/Endocrine/GI/Lines: DM bgm On nepro feeds Hypernatremic- for free water per NGT iv protonix 40mg push Cont levemir- 15u Cont ISS Hyperkalemia- resume Stop 1/2 NS @75ml/hr Lines: ETT (09/23/17), NGT, RUE peripheral line, LUE periph line, bateman Cardio: Htn HLD Still tachycardic- Lopressor as needed Continue heparin drip for now to transition probably to eliquis when stable- per cardiology iv metoprolol prn -5mg Digoxin 0.125 Resume cardizem 90mg NGT Iv hydrazaline 10mg ivpush PRN PO metoprolol 25 mg bid NGT Digoxin level PTT Hemonc: Anemia- stable post transfusion 09/23 Colorectal cancer with lung mets ID: Acute sepsis could be 2/2 to PNA with L lung infiltrate Restarted on Zosyn-3.35 (09/23/17) Cont Cipro eye drops Cont artificial tears Monitor daily CXR Prophylaxis: on heparin gtt protonix drip @14.5/hr Heel pads Dispo: Monitor in ICU For extubation Visit type - Emergency Visit Emergency Visit: Yes ED Registration Date: 09/10/17 Care time: The patient presented to the Emergency Department on the above date and was hospitalized for further evaluation of their emergent condition. - New Patient This patient is new to me today: No - Critical Care Critical Care patient: Yes Total Critical Care Time (in minutes): 40 Critical Care Statement: The care of this patient involved high complexity decision making to prevent further life threatening deterioration of the patient 's condition and/or to evaluate & treat vital organ system(s) failure or risk of failure. - Discharge Referral Referred to [facility] Med P.C.: No
--- NOTE | 2017-09-26 15:52 | PN ---
Progress Note, Physician History of Present Illness: Pt seen and examined at bedside. She is now extubated. She responds to questions. - Current Medication List Current Medications: Active Medications Acetaminophen (Ofirmev Injection -) 1,000 mg IVPB Q6H PRN PRN Reason: FEVER OR PAIN Last Admin: 09/20/17 19:19 Dose: 1,000 mg Artificial Tears (Artificial Tears Ointment -) 1 applic OU BID COR[facility]IA Last Admin: 09/26/17 09:03 Dose: 1 applic Atorvastatin Calcium (Lipitor -) 20 mg PO HS [facility] Last Admin: 09/25/17 22:08 Dose: 20 mg Chlorhexidine Gluconate (Hibiclens For Decolonization -) 1 applic TP HS [facility] Last Admin: 09/25/17 22:08 Dose: 1 applic Chlorhexidine Gluconate (Peridex -) 15 ml MM BID [facility] Last Admin: 09/26/17 10:03 Dose: 15 ml Ciprofloxacin (Ciloxan 0.3% Eye Drops --) 2 drop OS Q2H [facility] Last Admin: 09/26/17 14:43 Dose: 2 drop Digoxin (Lanoxin Injection -) 0.125 mg IVPUSH Q2D@1000 [facility] Last Admin: 09/26/17 09:04 Dose: 0.125 mg Diltiazem HCl (Cardizem -) 90 mg NGT Q6HPO [facility] Last Admin: 09/26/17 11:41 Dose: 90 mg Hydralazine HCl (Apresoline Injection -) 10 mg IVPUSH Q6H PRN PRN Reason: HYPERTENSION Last Admin: 09/25/17 09:36 Dose: 10 mg HEPARIN SOD,PORK IN 0.45% NACL (Heparin-1/2ns 25,000 Units/500) 25,000 units in 500 mls @ 20 mls/hr IVPB TITR CORDELIA; 1,000 UNITS/HR PRN Reason: Protocol Last Admin: 09/25/17 22:06 Dose: 650 units/hr, 13 mls/hr Piperacillin Sod/Tazobactam (Sod 3.375 gm/ Dextrose) 50 mls @ 100 mls/hr IVPB Q8H-IV [facility] Last Admin: 09/26/17 09:04 Dose: 100 mls/hr Propofol (Diprivan -) 1,000,000 mcg in 100 mls @ 21.348 mls/hr IVPB TITR CORDELIA; 40 MCG/KG/MIN PRN Reason: Protocol Last Titration: 09/25/17 18:26 Dose: 40 mcg/kg/min, 21.348 mls/hr Insulin Aspart (Novolog Vial Sliding Scale -) 1 vial SQ Q4HPO COR[facility]IA PRN Reason: Protocol Last Admin: 09/26/17 14:43 Dose: 2 units Insulin Detemir (Levemir Vial) 10 units SQ HS [facility] Metoprolol Tartrate (Lopressor Injection -) 5 mg IVPUSH Q4H PRN PRN Reason: HYPERTENSION Last Admin: 09/22/17 08:55 Dose: 5 mg Metoprolol Tartrate (Lopressor -) 25 mg PO BID [facility] Last Admin: 09/26/17 10:03 Dose: 25 mg Ondansetron HCl (Zofran Injection) 4 mg IVPUSH Q6H PRN PRN Reason: NAUSEA Pantoprazole Sodium (Protonix Iv) 40 mg IVPUSH DAILY [facility] Last Admin: 09/26/17 09:04 Dose: 40 mg Trazodone HCl (Desyrel -) 50 mg PO [facility] Last Admin: 09/25/17 22:00 Dose: Not Given - Objective Vital Signs: Vital Signs Temperature 98.2 F 09/26/17 12:30 Pulse Rate 65 09/26/17 12:30 Respiratory Rate 10 L 09/26/17 12:30 Blood Pressure 167/81 09/26/17 12:30 O2 Sat by Pulse Oximetry (%) 100 09/26/17 12:30 Constitutional: Yes: Calm Eyes: Yes: Conjunctiva Clear HENT: Yes: Atraumatic Cardiovascular: Yes: S1, S2 Respiratory: Yes: On Venti-Mask Gastrointestinal: Yes: Soft Genitourinary: Yes: Mcdonald Present Musculoskeletal: Yes: Muscle Weakness Edema: Yes Edema: LUE: Trace, RUE: Trace Wound/Incision: Yes: Open to air Neurological: Yes: Oriented Labs: CBC, BMP 09/26/17 06:00 09/26/17 06:00 INR, PTT INR 0.96 (0.82-1.09) 09/17/17 06:25 - ....Imaging Chest X-ray: Report Reviewed Problem List - Problems (1) Brain metastasis Code(s): C79.31 - SECONDARY MALIGNANT NEOPLASM OF BRAIN (2) Headache Code(s): R51 - HEADACHE Qualifiers: Headache chronicity pattern: unspecified pattern Intractability: intractable (3) Metastatic colorectal cancer Code(s): C78.5 - SECONDARY MALIGNANT NEOPLASM OF LARGE INTESTINE AND RECTUM (4) SUSAN (acute kidney injury) Code(s): N17.9 - ACUTE KIDNEY FAILURE, UNSPECIFIED (5) Atrial fibrillation Code(s): I48.91 - UNSPECIFIED ATRIAL FIBRILLATION (6) Cancer, colon Code(s): C18.9 - MALIGNANT NEOPLASM OF COLON, UNSPECIFIED Qualifiers: Colon location: unspecified part of colon Qualified Code(s): C18.9 - Malignant neoplasm of colon, unspecified (7) Lung mass Code(s): R91.8 - OTHER NONSPECIFIC ABNORMAL FINDING OF LUNG FIELD Assessment/Plan Current Medications Generic Name Dose Route Start Last Admin Trade Name Freq PRN Reason Stop Dose Admin Acetaminophen 1,000 mg 09/15/17 11:50 09/20/17 19:19 Ofirmev Injection - IVPB 1,000 mg Q6H PRN Administration FEVER OR PAIN Artificial Tears 1 applic 09/15/17 22:00 09/26/17 09:03 Artificial Tears Ointment - OU 1 applic BID CORDELIA Administration Atorvastatin Calcium 20 mg 09/11/17 22:00 09/25/17 22:08 Lipitor - PO 20 mg HS CORDELIA Administration Chlorhexidine Gluconate 1 applic 09/15/17 22:00 09/25/17 22:08 Hibiclens For Decolonization - TP 1 applic HS COR[facility]IA Administration Chlorhexidine Gluconate 15 ml 09/15/17 22:00 09/26/17 10:03 Peridex - MM 15 ml BID CORDELIA Administration Ciprofloxacin 2 drop 09/16/17 14:45 09/26/17 14:43 Ciloxan 0.3% Eye Drops -- OS 2 drop Q2H CORDELIA Administration Digoxin 0.125 mg 09/24/17 10:00 09/26/17 09:04 Lanoxin Injection - IVPUSH 0.125 mg Q2D@1000 CORDELIA Administration Diltiazem HCl 90 mg 09/25/17 12:45 09/26/17 11:41 Cardizem - NGT 90 mg Q6HPO CORDELIA Administration Hydralazine HCl 10 mg 09/11/17 10:25 09/25/17 09:36 Apresoline Injection - IVPUSH 10 mg Q6H PRN Administration HYPERTENSION HEPARIN SOD,PORK IN 0.45% NACL 25,000 units in 500 mls @ 20 mls/hr 09/12/17 20 :00 09/25/17 22:06 Heparin-1/2ns 25,000 Units/500 IVPB 650 units/hr TITR CORDELIA 13 mls/hr Protocol Administration 1,000 UNITS/HR Piperacillin Sod/Tazobactam 50 mls @ 100 mls/hr 09/23/17 18:00 09/26/17 09:04 Sod 3.375 gm/ Dextrose IVPB 100 mls/hr Q8H-IV [facility]IA Administration Propofol 1,000,000 mcg in 100 mls @ 21.348 mls/hr 09/23/17 17:30 09/25/17 18: 26 Diprivan - IVPB 40 mcg/kg/min TITR CORDELIA 21.348 mls/hr Protocol Titration 40 MCG/KG/MIN Insulin Aspart 1 vial 09/19/17 22:07 09/26/17 14:43 Novolog Vial Sliding Scale - SQ 2 units Q4HPO COR[facility]IA Administration Protocol Insulin Detemir 10 units 09/26/17 22:00 Levemir Vial SQ HS [facility] Metoprolol Tartrate 5 mg 09/11/17 10:25 09/22/17 08:55 Lopressor Injection - IVPUSH 5 mg Q4H PRN Administration HYPERTENSION Metoprolol Tartrate 25 mg 09/25/17 12:30 09/26/17 10:03 Lopressor - PO 25 mg BID COR[facility]IA Administration Ondansetron HCl 4 mg 09/11/17 02:02 Zofran Injection IVPUSH Q6H PRN NAUSEA Pantoprazole Sodium 40 mg 09/23/17 14:15 09/26/17 09:04 Protonix Iv IVPUSH 40 mg DAILY COR[facility]IA Administration Trazodone HCl 50 mg 09/20/17 22:00 09/25/17 22:00 Desyrel - PO Not Given HS CORDELIA Impression 1. CKD 2. SUSAN 3. DM 4. htn 5. chol 6. chemo port malfunction 7. a-fib 8. lung mass 9. proteinuria 10. adenocarcinoma 11. CVA 12. acute resp failure 13. hyperkalemia Plan - sodium is improved - renal function is stable - repeat labs in am - monitor hg - neuro follow up - monitor pulse ox - cont ICU care - will follow Dr Llanos
--- NOTE | 2017-09-26 17:03 | PN ---
Progress Note, Physician - Current Medication List Current Medications: Active Medications Acetaminophen (Ofirmev Injection -) 1,000 mg IVPB Q6H PRN PRN Reason: FEVER OR PAIN Last Admin: 09/20/17 19:19 Dose: 1,000 mg Artificial Tears (Artificial Tears Ointment -) 1 applic OU BID [facility] Last Admin: 09/26/17 09:03 Dose: 1 applic Atorvastatin Calcium (Lipitor -) 20 mg PO HS [facility] Last Admin: 09/25/17 22:08 Dose: 20 mg Chlorhexidine Gluconate (Hibiclens For Decolonization -) 1 applic TP HS [facility] Last Admin: 09/25/17 22:08 Dose: 1 applic Chlorhexidine Gluconate (Peridex -) 15 ml MM BID [facility] Last Admin: 09/26/17 10:03 Dose: 15 ml Ciprofloxacin (Ciloxan 0.3% Eye Drops --) 2 drop OS Q2H [facility] Last Admin: 09/26/17 14:43 Dose: 2 drop Digoxin (Lanoxin Injection -) 0.125 mg IVPUSH Q2D@1000 [facility] Last Admin: 09/26/17 09:04 Dose: 0.125 mg Diltiazem HCl (Cardizem -) 90 mg NGT Q6HPO [facility] Last Admin: 09/26/17 11:41 Dose: 90 mg Hydralazine HCl (Apresoline Injection -) 10 mg IVPUSH Q6H PRN PRN Reason: HYPERTENSION Last Admin: 09/25/17 09:36 Dose: 10 mg HEPARIN SOD,PORK IN 0.45% NACL (Heparin-1/2ns 25,000 Units/500) 25,000 units in 500 mls @ 20 mls/hr IVPB TITR CORDELIA; 1,000 UNITS/HR PRN Reason: Protocol Last Admin: 09/25/17 22:06 Dose: 650 units/hr, 13 mls/hr Piperacillin Sod/Tazobactam (Sod 3.375 gm/ Dextrose) 50 mls @ 100 mls/hr IVPB Q8H-IV [facility] Last Admin: 09/26/17 09:04 Dose: 100 mls/hr Propofol (Diprivan -) 1,000,000 mcg in 100 mls @ 21.348 mls/hr IVPB TITR CORDELIA; 40 MCG/KG/MIN PRN Reason: Protocol Last Titration: 09/25/17 18:26 Dose: 40 mcg/kg/min, 21.348 mls/hr Insulin Aspart (Novolog Vial Sliding Scale -) 1 vial SQ Q4HPO [facility] PRN Reason: Protocol Last Admin: 09/26/17 14:43 Dose: 2 units Insulin Detemir (Levemir Vial) 10 units SQ HS [facility] Metoprolol Tartrate (Lopressor Injection -) 5 mg IVPUSH Q4H PRN PRN Reason: HYPERTENSION Last Admin: 09/22/17 08:55 Dose: 5 mg Metoprolol Tartrate (Lopressor -) 25 mg PO BID [facility] Last Admin: 09/26/17 10:03 Dose: 25 mg Ondansetron HCl (Zofran Injection) 4 mg IVPUSH Q6H PRN PRN Reason: NAUSEA Pantoprazole Sodium (Protonix Iv) 40 mg IVPUSH DAILY [facility] Last Admin: 09/26/17 09:04 Dose: 40 mg Trazodone HCl (Desyrel -) 50 mg PO HS [facility] Last Admin: 09/25/17 22:00 Dose: Not Given - Objective Vital Signs: Vital Signs Temperature 97.5 F L 09/26/17 15:45 Pulse Rate 102 H 09/26/17 16:00 Respiratory Rate 14 09/26/17 16:00 Blood Pressure 160/60 09/26/17 16:00 O2 Sat by Pulse Oximetry (%) 100 09/26/17 12:30 Cardiovascular: Yes: S1, S2 Respiratory: Yes: Diminished, Rhonchi Gastrointestinal: Yes: Normal Bowel Sounds, Soft Labs: CBC, BMP 09/26/17 06:00 09/26/17 06:00 INR, PTT INR 0.96 (0.82-1.09) 09/17/17 06:25 Problem List - Problems (1) Respiratory failure Assessment/Plan: PER ICU TEAM NEBS CXR ABX Code(s): J96.90 - RESPIRATORY FAILURE, UNSP, UNSP W HYPOXIA OR HYPERCAPNIA (2) Brain metastasis Assessment/Plan: NEURO CONSULT NOTED Code(s): C79.31 - SECONDARY MALIGNANT NEOPLASM OF BRAIN (3) CVA (cerebral vascular accident) Assessment/Plan: ABOVE--SEE NEURO CONSULT CT WITH HYDROCEPHALUS NS AND NEURO ON CASE FURTHER PLAN PER NEURO- AC Code(s): I63.9 - CEREBRAL INFARCTION, UNSPECIFIED (4) Metastatic colorectal cancer Code(s): C78.5 - SECONDARY MALIGNANT NEOPLASM OF LARGE INTESTINE AND RECTUM (5) Atrial fibrillation Assessment/Plan: ON CARDIZEM-METOPROLOL AND DIG ON HEPARIN CARDIO ON BOARD Code(s): I48.91 - UNSPECIFIED ATRIAL FIBRILLATION (6) Diabetes Assessment/Plan: BGM Code(s): E11.9 - TYPE 2 DIABETES MELLITUS WITHOUT COMPLICATIONS (7) Hypernatremia Assessment/Plan: na improving Orders 09/11/17 22:00 Dexamethasone Injection [Decadron Injection -] 4 mg IVPB BID 06/17/17 12:30 Diltiazem [Cardizem -] 30 mg PO Q6HPO Laboratory Tests 09/25/17 09/26/17 05:05 06:00 Sodium 151 H 148 H renal on board on ivf Code(s): E87.0 - HYPEROSMOLALITY AND HYPERNATREMIA
[2017-09-26] MEDS ORDERED: FUROSEMIDE 40 MG/4 ML INJECTABLE VIAL ONE (17:39)
[2017-09-26] MEDS: PROPOFOL 1,000,000 MCG/100 ML VIAL IVPB SCH (17:41)
--- NOTE | 2017-09-26 19:40 | PN ---
Progress Note (short form) - Note Progress Note: NEUROLOGY FOLLOW-UP: Events reviewed and patient examined with family at bedside. Extubated. No respiratory distress. Awake, alert. Follows all commands. Pupils 6mm right 3 mm left reactive. Normal EOM's to the right but some conjugate gaze difficulty to the left. No facial. Moves tongue well on commands. Moves right side well. Left hemiparesis. IMP: Doing well s/p extensive posterior fossa CVA(s). Suggest: Continue heparin Speech and swallowing on Friday AM Begin bedside PT. Thank you very much, Daniel Pulido MD
[2017-09-26] MEDS: CHLORHEXIDINE GLUCONATE 4% CLEANSER FOR DECOLONIZATION TP SCH (21:17)
[2017-09-26] MEDS: ATORVASTATIN CA 20 MG TABLET (FP) PO SCH (21:56)
[2017-09-26] MEDS: traZODone HCL 50 MG TABLET (FP) PO SCH (21:56)
[2017-09-26] MEDS: INSULIN DETEMIR 100 UNITS/ML MDV SQ SCH (23:00)
[2017-09-27] MEDS: CIPROFLOXACIN 0.3% EYE DROPS 5 ML BOTTLE OS SCH ×12 (01:00→22:00)
[2017-09-27] MEDS: PIPERACILLIN/TAZOB 3.375 GM 3.375 GM in DEXTROSE 5%-WATER - 50 ML IVPB SCH ×3 (02:48→17:39)
[2017-09-27] MEDS ORDERED: HEMOQUE TEST 1 EACH EACH ONE ×2 (05:32→17:40)
[2017-09-27] MEDS ORDERED: HEMOQUE CONTROL SOLUTION ONE (05:33)
[2017-09-27] MEDS: dilTIAZem HCL 30 MG TABLET (FP) NGT SCH ×3 (05:38→17:44)
[2017-09-27] MEDS: INSULIN SLIDING SCALE (NOVOLOG) 1 VIAL SQ SCH ×3 (05:39→17:53)
[2017-09-27 06:14] LABS: HBsAG SCREEN Negative (Negative)
[2017-09-27 06:25] LABS: HEMATOCRIT 33.7 % (32.4-45.2); HEMOGLOBIN 10.9 GM/dL (10.7-15.3); MCH 27.3 pg (25.7-33.7); MCHC 32.4 g/dl (32.0-36.0); MEAN CELL VOLUME 84.1 fl (80-96); MEAN PLT VOLUME 8.7 fl (7.5-11.1); PLATELET COUNT 168 K/MM3 (134-434); RBC 4.01 M/mm3 (3.60-5.2); RDW 16.3 % (11.6-15.6); WHITE BLOOD COUNT 16.1 K/mm3 (4.0-10.0)
[2017-09-27 06:48] LABS: ALBUMIN 1.8 g/dl (3.4-5.0); ANION GAP 9 (8-16); BLOOD UREA NITROGEN 54 mg/dL (7-18); CALCIUM 7.9 mg/dL (8.5-10.1); CHLORIDE 111 mmol/L (98-107); CO2 28 mmol/L (21-32); GLUCOSE,RANDOM 140 mg/dL (74-106); PHOSPHOROUS 4.1 mg/dL (2.5-4.9); POTASSIUM 3.6 mmol/L (3.5-5.1); SGPT/ALT 35 U/L (12-78); SODIUM 148 mmol/L (136-145)
[2017-09-27 07:02] LABS: ALK PHOS 92 U/L (45-117); BILIRUBIN,TOTAL 0.3 mg/dL (0.2-1.0); CREATININE 1.7 mg/dL (0.55-1.02); SGOT/AST 23 U/L (15-37); TOT PROT 4.8 g/dl (6.4-8.2)
[2017-09-27] MEDS ORDERED: PT OWN MED DRAWER 7, Y5N ONE ×2 (09:33→21:28)
--- NOTE | 2017-09-27 09:33 | PN ---
Progress Note (short form) - Note Progress Note: Patient seen and examined in the ICU. Remains extubated. Awake and responsive on VM O2. No pressors. CXR: No gross change in bibasilar infiltrates / mild congestion Intake & Output 09/24/17 09/25/17 09/26/17 09/27/17 23:59 23:59 23:59 23:59 Intake Total 2214 2554 1060 513 Output Total 2400 2900 1900 750 Balance -186 -346 -840 -237 Weight 195 lb 4.8 oz 191 lb 9.307 oz 186 lb 11.704 oz 183 lb 3.266 oz Last Vital Signs Temp Pulse Resp BP Pulse Ox 98.4 F 83 18 131/67 100 09/27/17 06:00 09/27/17 06:00 09/27/17 06:00 09/27/17 06:00 09/26/17 21:00 Active Medications Acetaminophen (Ofirmev Injection -) 1,000 mg IVPB Q6H PRN PRN Reason: FEVER OR PAIN Last Admin: 09/20/17 19:19 Dose: 1,000 mg Artificial Tears (Artificial Tears Ointment -) 1 applic OU BID [facility] Last Admin: 09/26/17 22:01 Dose: 1 applic Atorvastatin Calcium (Lipitor -) 20 mg PO HS [facility] Last Admin: 09/26/17 21:56 Dose: 20 mg Chlorhexidine Gluconate (Hibiclens For Decolonization -) 1 applic TP HS [facility] Last Admin: 09/26/17 21:17 Dose: 1 applic Ciprofloxacin (Ciloxan 0.3% Eye Drops --) 2 drop OS Q2H [facility] Last Admin: 09/27/17 06:35 Dose: 2 drop Digoxin (Lanoxin Injection -) 0.125 mg IVPUSH Q2D@1000 [facility] Last Admin: 09/26/17 09:04 Dose: 0.125 mg Diltiazem HCl (Cardizem -) 90 mg NGT Q6HPO [facility] Last Admin: 09/27/17 05:38 Dose: 90 mg Hydralazine HCl (Apresoline Injection -) 10 mg IVPUSH Q6H PRN PRN Reason: HYPERTENSION Last Admin: 09/25/17 09:36 Dose: 10 mg HEPARIN SOD,PORK IN 0.45% NACL (Heparin-1/2ns 25,000 Units/500) 25,000 units in 500 mls @ 20 mls/hr IVPB TITR [facility]; 1,000 UNITS/HR PRN Reason: Protocol Last Titration: 09/26/17 21:45 Dose: 450 units/hr, 9 mls/hr Piperacillin Sod/Tazobactam (Sod 3.375 gm/ Dextrose) 50 mls @ 100 mls/hr IVPB Q8H-IV [facility] Last Admin: 09/27/17 02:48 Dose: 100 mls/hr Insulin Aspart (Novolog Vial Sliding Scale -) 1 vial SQ Q6H [facility] PRN Reason: Protocol Last Admin: 09/27/17 05:39 Dose: 2 units Insulin Detemir (Levemir Vial) 10 units SQ HS [facility] Last Admin: 09/26/17 23:00 Dose: 10 units Metoprolol Tartrate (Lopressor Injection -) 5 mg IVPUSH Q4H PRN PRN Reason: HYPERTENSION Last Admin: 09/22/17 08:55 Dose: 5 mg Metoprolol Tartrate (Lopressor -) 25 mg PO BID [facility] Last Admin: 09/26/17 21:56 Dose: 25 mg Ondansetron HCl (Zofran Injection) 4 mg IVPUSH Q6H PRN PRN Reason: NAUSEA Pantoprazole Sodium (Protonix Iv) 40 mg IVPUSH DAILY [facility] Last Admin: 09/26/17 09:04 Dose: 40 mg Trazodone HCl (Desyrel -) 50 mg PO HS [facility] Last Admin: 09/26/17 21:56 Dose: 50 mg Gen: EXtubated, awake and responsive Heart: RRR Lung: scattered rhonchi Abd: soft, nontender Ext: + edema Laboratory Results - last 24 hr 09/23/17 09/26/17 09/26/17 11:45 06:00 09:54 WBC RBC Hgb Hct MCV MCH MCHC RDW Plt Count MPV Neutrophils % Neutrophils % (Manual) 86.6 H Band Neutrophils % 5.2 Lymphocytes % Lymphocytes % (Manual) 4.1 L D Monocytes % (Manual) 2 L Eosinophils % (Manual) 0.0 Basophils % (Manual) 0.0 Myelocytes % (Man) 0 Metamyelocytes 1 D Hypochromia 0 Platelet Estimate Adequate Polychromasia 1+ Poikilocytosis 2+ Anisocytosis 1+ Microcytosis 0 Macrocytosis 0 PTT (Actin FS) Puncture Site Other ABG pH 7.41 ABG pCO2 at Pt Temp 38.1 ABG pO2 at Pt Temp 113.0 H ABG HCO3 23.7 ABG O2 Sat (Measured) 98.2 ABG O2 Content 18.1 ABG Base Excess -0.1 Addy Test Not applicable Oxygen Flow Rate 40% Vent Mode 5/5 Mechanical Rate Psv/cpap Sodium Potassium Chloride Carbon Dioxide Anion Gap BUN Creatinine Creat Clearance w eGFR POC Glucometer Random Glucose Calcium Phosphorus Magnesium Total Bilirubin AST ALT Alkaline Phosphatase Total Protein Albumin Digoxin Hep Bs Antigen Hepatitis C Antibody HIV 1&2 Antibody Screen HIV P24 Antigen Blood Type O POSITIVE Antibody Screen Negative Crossmatch See Detail 09/26/17 09/26/17 09/26/17 10:05 10:20 12:40 WBC RBC Hgb Hct MCV MCH MCHC RDW Plt Count MPV Neutrophils % Neutrophils % (Manual) Band Neutrophils % Lymphocytes % Lymphocytes % (Manual) Monocytes % (Manual) Eosinophils % (Manual) Basophils % (Manual) Myelocytes % (Man) Metamyelocytes Hypochromia Platelet Estimate Polychromasia Poikilocytosis Anisocytosis Microcytosis Macrocytosis PTT (Actin FS) 154.9 H Puncture Site ABG pH ABG pCO2 at Pt Temp ABG pO2 at Pt Temp ABG HCO3 ABG O2 Sat (Measured) ABG O2 Content ABG Base Excess Addy Test Oxygen Flow Rate Vent Mode Mechanical Rate Sodium Potassium Chloride Carbon Dioxide Anion Gap BUN Creatinine Creat Clearance w eGFR POC Glucometer [phone] Random Glucose Calcium Phosphorus Magnesium Total Bilirubin AST ALT 37 Alkaline Phosphatase Total Protein Albumin Digoxin Hep Bs Antigen Hepatitis C Antibody HIV 1&2 Antibody Screen HIV P24 Antigen Blood Type Antibody Screen Crossmatch 09/26/17 09/26/17 09/26/17 12:40 12:40 14:42 WBC RBC Hgb Hct MCV MCH MCHC RDW Plt Count MPV Neutrophils % Neutrophils % (Manual) Band Neutrophils % Lymphocytes % Lymphocytes % (Manual) Monocytes % (Manual) Eosinophils % (Manual) Basophils % (Manual) Myelocytes % (Man) Metamyelocytes Hypochromia Platelet Estimate Polychromasia Poikilocytosis Anisocytosis Microcytosis Macrocytosis PTT (Actin FS) Puncture Site ABG pH ABG pCO2 at Pt Temp ABG pO2 at Pt Temp ABG HCO3 ABG O2 Sat (Measured) ABG O2 Content ABG Base Excess Addy Test Oxygen Flow Rate Vent Mode Mechanical Rate Sodium Potassium Chloride Carbon Dioxide Anion Gap BUN Creatinine Creat Clearance w eGFR POC Glucometer [phone] Random Glucose Calcium Phosphorus Magnesium Total Bilirubin AST ALT Alkaline Phosphatase Total Protein Albumin Digoxin Hep Bs Antigen Negative Hepatitis C Antibody <0.1 HIV 1&2 Antibody Screen Negative HIV P24 Antigen Negative Blood Type Antibody Screen Crossmatch 09/26/17 09/26/17 09/26/17 17:48 18:00 23:13 WBC RBC Hgb Hct MCV MCH MCHC RDW Plt Count MPV Neutrophils % Neutrophils % (Manual) Band Neutrophils % Lymphocytes % Lymphocytes % (Manual) Monocytes % (Manual) Eosinophils % (Manual) Basophils % (Manual) Myelocytes % (Man) Metamyelocytes Hypochromia Platelet Estimate Polychromasia Poikilocytosis Anisocytosis Microcytosis Macrocytosis PTT (Actin FS) 42.0 H D Puncture Site ABG pH ABG pCO2 at Pt Temp ABG pO2 at Pt Temp ABG HCO3 ABG O2 Sat (Measured) ABG O2 Content ABG Base Excess Addy Test Oxygen Flow Rate Vent Mode Mechanical Rate Sodium Potassium Chloride Carbon Dioxide Anion Gap BUN Creatinine Creat Clearance w eGFR POC Glucometer [phone] Random Glucose Calcium Phosphorus Magnesium Total Bilirubin AST ALT Alkaline Phosphatase Total Protein Albumin Digoxin Hep Bs Antigen Hepatitis C Antibody HIV 1&2 Antibody Screen HIV P24 Antigen Blood Type Antibody Screen Crossmatch 09/27/17 09/27/17 09/27/17 03:40 05:30 05:30 WBC 16.1 H RBC 4.01 Hgb 10.9 Hct 33.7 MCV 84.1 MCH 27.3 MCHC 32.4 RDW 16.3 H Plt Count 168 MPV 8.7 Neutrophils % No Result Required. Neutrophils % (Manual) Band Neutrophils % Lymphocytes % No Result Required. Lymphocytes % (Manual) Monocytes % (Manual) Eosinophils % (Manual) Basophils % (Manual) Myelocytes % (Man) Metamyelocytes Hypochromia Platelet Estimate Polychromasia Poikilocytosis Anisocytosis Microcytosis Macrocytosis PTT (Actin FS) 60.0 H D Puncture Site ABG pH ABG pCO2 at Pt Temp ABG pO2 at Pt Temp ABG HCO3 ABG O2 Sat (Measured) ABG O2 Content ABG Base Excess Addy Test Oxygen Flow Rate Vent Mode Mechanical Rate Sodium 148 H Potassium 3.6 Chloride 111 H Carbon Dioxide 28 Anion Gap 9 BUN 54 H Creatinine 1.7 H Creat Clearance w eGFR 30.66 POC Glucometer Random Glucose 140 H Calcium 7.9 L Phosphorus 4.1 Magnesium 2.0 Total Bilirubin 0.3 AST 23 ALT 35 Alkaline Phosphatase 92 Total Protein 4.8 L Albumin 1.8 L Digoxin 1.1841 Hep Bs Antigen Hepatitis C Antibody HIV 1&2 Antibody Screen HIV P24 Antigen Blood Type Antibody Screen Crossmatch 09/27/17 05:36 WBC RBC Hgb Hct MCV MCH MCHC RDW Plt Count MPV Neutrophils % Neutrophils % (Manual) Band Neutrophils % Lymphocytes % Lymphocytes % (Manual) Monocytes % (Manual) Eosinophils % (Manual) Basophils % (Manual) Myelocytes % (Man) Metamyelocytes Hypochromia Platelet Estimate Polychromasia Poikilocytosis Anisocytosis Microcytosis Macrocytosis PTT (Actin FS) Puncture Site ABG pH ABG pCO2 at Pt Temp ABG pO2 at Pt Temp ABG HCO3 ABG O2 Sat (Measured) ABG O2 Content ABG Base Excess Addy Test Oxygen Flow Rate Vent Mode Mechanical Rate Sodium Potassium Chloride Carbon Dioxide Anion Gap BUN Creatinine Creat Clearance w eGFR POC Glucometer 159.68571 Random Glucose Calcium Phosphorus Magnesium Total Bilirubin AST ALT Alkaline Phosphatase Total Protein Albumin Digoxin Hep Bs Antigen Hepatitis C Antibody HIV 1&2 Antibody Screen HIV P24 Antigen Blood Type Antibody Screen Crossmatch ASSESSMENT AND PLAN: Multiple Acute Embolic CVA Acute Hypoxic Respiratory Failure r/o Aspiration Pneumonia Atrial Fibrillation with RVR Metastatic Colon Ca to Lung Acute on Chronic Renal Failure Hyperkalemia HTN DM Hypercholesterolemia - continue antibiotics per ID - rate control - continue anticoagulation - free water via NGT - Daily assessment for Lasix: non today - monitor urine output, creatinine - enteral feeds - DVT/GI prophylaxis - continue ICU monitoring - VM O2 - Aspiration precautions - Will need swallow evaluation prior to PO intake Dr Kaplan Critical care time spent in reviewing chart, evaluating patient and formulating plan 36 min
[2017-09-27] MEDS: METOPROLOL TARTRATE 25 MG TABLET (FP) PO SCH ×2 (09:51→21:39)
[2017-09-27] MEDS: PANTOPRAZOLE SODIUM 40 MG VIAL IVPUSH SCH (09:51)
[2017-09-27] MEDS: MINERAL OIL/PETROLATUM,WHITE 3.5 GM TUBE OU SCH ×2 (09:51→21:36)
[2017-09-27 12:04] LABS: ANISOCYTOSIS 1+; MACROCYTOSIS 0; PLATELET ESTIMATE DECREASED
--- NOTE | 2017-09-27 13:39 | PN ---
Progress Note (short form) - Note Progress Note: Current Medications Acetaminophen (Ofirmev Injection -) 1,000 mg IVPB Q6H PRN PRN Reason: FEVER OR PAIN Last Admin: 09/20/17 19:19 Dose: 1,000 mg Artificial Tears (Artificial Tears Ointment -) 1 applic OU BID [facility] Last Admin: 09/27/17 09:51 Dose: 1 applic Atorvastatin Calcium (Lipitor -) 20 mg PO HS [facility] Last Admin: 09/26/17 21:56 Dose: 20 mg Chlorhexidine Gluconate (Hibiclens For Decolonization -) 1 applic TP HS [facility] Last Admin: 09/26/17 21:17 Dose: 1 applic Ciprofloxacin (Ciloxan 0.3% Eye Drops --) 2 drop OS Q2H [facility] Last Admin: 09/27/17 09:50 Dose: 2 drop Digoxin (Lanoxin Injection -) 0.125 mg IVPUSH Q2D@1000 [facility] Last Admin: 09/26/17 09:04 Dose: 0.125 mg Diltiazem HCl (Cardizem -) 90 mg NGT Q6HPO [facility] Last Admin: 09/27/17 05:38 Dose: 90 mg Hydralazine HCl (Apresoline Injection -) 10 mg IVPUSH Q6H PRN PRN Reason: HYPERTENSION Last Admin: 09/25/17 09:36 Dose: 10 mg HEPARIN SOD,PORK IN 0.45% NACL (Heparin-1/2ns 25,000 Units/500) 25,000 units in 500 mls @ 20 mls/hr IVPB TITR [facility]; 1,000 UNITS/HR PRN Reason: Protocol Last Titration: 09/26/17 21:45 Dose: 450 units/hr, 9 mls/hr Piperacillin Sod/Tazobactam (Sod 3.375 gm/ Dextrose) 50 mls @ 100 mls/hr IVPB Q8H-IV [facility] Last Admin: 09/27/17 09:52 Dose: 100 mls/hr Insulin Aspart (Novolog Vial Sliding Scale -) 1 vial SQ Q6H [facility] PRN Reason: Protocol Last Admin: 09/27/17 05:39 Dose: 2 units Insulin Detemir (Levemir Vial) 10 units SQ [facility] Last Admin: 09/26/17 23:00 Dose: 10 units Metoprolol Tartrate (Lopressor Injection -) 5 mg IVPUSH Q4H PRN PRN Reason: HYPERTENSION Last Admin: 09/22/17 08:55 Dose: 5 mg Metoprolol Tartrate (Lopressor -) 25 mg PO BID [facility] Last Admin: 09/27/17 09:51 Dose: 25 mg Ondansetron HCl (Zofran Injection) 4 mg IVPUSH Q6H PRN PRN Reason: NAUSEA Pantoprazole Sodium (Protonix Iv) 40 mg IVPUSH DAILY [facility] Last Admin: 09/27/17 09:51 Dose: 40 mg Trazodone HCl (Desyrel -) 50 mg PO HS [facility] Last Admin: 09/26/17 21:56 Dose: 50 mg c/o thirst Last Vital Signs Temp Pulse Resp BP Pulse Ox 98.4 F 83 18 131/67 100 09/27/17 06:00 09/27/17 06:00 09/27/17 06:00 09/27/17 06:00 09/26/17 21:00 Intake & Output 09/24/17 09/25/17 09/26/17 09/27/17 23:59 23:59 23:59 23:59 Intake Total 2214 2554 1060 685 Output Total 2400 2900 1900 1250 Balance -186 -346 -840 -565 Weight 195 lb 4.8 oz 191 lb 9.307 oz 186 lb 11.704 oz 183 lb 3.266 oz lungs clear heart reg abd soft no edema ext no edema CBC, BMP 09/27/17 05:30 09/27/17 05:30 IMP- hypernatremia no longer improving still with free water deficit dry mucous membranes on exam Plan- add water via tube feeding
[2017-09-27] MEDS: ACETAMINOPHEN 1000 MG/100 ML VIAL (NON FORMULARY) IVPB PRN (20:05)
[2017-09-27] MEDS: HEPARIN SOD,PORK IN 0.45% NACL 25,000 UNITS/500 ML INFUS.BAG IVPB SCH (21:34)
[2017-09-27] MEDS: traZODone HCL 50 MG TABLET (FP) PO SCH (21:36)
[2017-09-27] MEDS: ATORVASTATIN CA 20 MG TABLET (FP) PO SCH (21:37)
[2017-09-27] MEDS: CHLORHEXIDINE GLUCONATE 4% CLEANSER FOR DECOLONIZATION TP SCH (21:37)
[2017-09-27] MEDS: INSULIN DETEMIR 100 UNITS/ML MDV SQ SCH (21:37)
[2017-09-28] MEDS: dilTIAZem HCL 30 MG TABLET (FP) NGT SCH ×4 (00:09→18:05)
[2017-09-28] MEDS: CIPROFLOXACIN 0.3% EYE DROPS 5 ML BOTTLE OS SCH ×11 (00:20→22:45)
[2017-09-28] MEDS: PIPERACILLIN/TAZOB 3.375 GM 3.375 GM in DEXTROSE 5%-WATER - 50 ML IVPB SCH ×3 (01:36→18:06)
[2017-09-28] MEDS: INSULIN SLIDING SCALE (NOVOLOG) 1 VIAL SQ SCH ×4 (02:01→17:57)
[2017-09-28 06:01] LABS: HEMATOCRIT 29.6 % (32.4-45.2); HEMOGLOBIN 9.3 GM/dL (10.7-15.3); MCHC 31.6 g/dl (32.0-36.0); MEAN CELL VOLUME 85.5 fl (80-96); MEAN PLT VOLUME 8.8 fl (7.5-11.1); PLATELET COUNT 144 K/MM3 (134-434); RBC 3.46 M/mm3 (3.60-5.2); RDW 16.7 % (11.6-15.6); WHITE BLOOD COUNT 13.9 K/mm3 (4.0-10.0)
[2017-09-28 06:53] LABS: ALBUMIN 1.6 g/dl (3.4-5.0); ANION GAP 7 (8-16); CALCIUM 7.6 mg/dL (8.5-10.1); CHLORIDE 112 mmol/L (98-107); CO2 27 mmol/L (21-32); SODIUM 146 mmol/L (136-145)
[2017-09-28 06:58] LABS: ALK PHOS 93 U/L (45-117); BILIRUBIN,TOTAL 0.3 mg/dL (0.2-1.0); BLOOD UREA NITROGEN 55 mg/dL (7-18); CREATININE 1.9 mg/dL (0.55-1.02); GLUCOSE,RANDOM 268 mg/dL (74-106); SGOT/AST 32 U/L (15-37); SGPT/ALT 49 U/L (12-78); TOT PROT 4.6 g/dl (6.4-8.2)
[2017-09-28] MEDS: DIGOXIN 0.5 MG/2 ML AMPUL IVPUSH SCH (09:13)
[2017-09-28] MEDS: MINERAL OIL/PETROLATUM,WHITE 3.5 GM TUBE OU SCH ×2 (09:13→21:15)
[2017-09-28] MEDS: METOPROLOL TARTRATE 25 MG TABLET (FP) PO SCH ×3 (09:15→23:26)
[2017-09-28] MEDS: PANTOPRAZOLE SODIUM 40 MG VIAL IVPUSH SCH (09:16)
[2017-09-28] MEDS: METOPROLOL TARTRATE 5 MG/5 ML VIAL IVPUSH PRN (09:20)
--- NOTE | 2017-09-28 09:23 | PN ---
Progress Note (short form) - Note Progress Note: Patient seen and examined in the ICU. Remains extubated. Awake and responsive on VM O2. Noted that she pulled out her NGT. She is awake and alert and is refusing to have the NGT replaced. No pressors. CXR: No gross change in bibasilar infiltrates / mild congestion Laboratory Results - last 24 hr 09/27/17 09/27/17 09/28/17 05:30 17:48 05:40 WBC RBC Hgb Hct MCV MCH MCHC RDW Plt Count MPV Neutrophils % (Manual) 85.7 H Band Neutrophils % 4.8 Lymphocytes % (Manual) 4.8 L Monocytes % (Manual) 2 L Eosinophils % (Manual) 0.9 D Basophils % (Manual) 0.0 Myelocytes % (Man) 1 D Metamyelocytes 1 Hypochromia 0 Platelet Estimate Decreased Polychromasia 0 Poikilocytosis 0 Anisocytosis 1+ Microcytosis 0 Macrocytosis 0 PTT (Actin FS) 48.8 H Sodium Potassium Chloride Carbon Dioxide Anion Gap BUN Creatinine Creat Clearance w eGFR POC Glucometer 181.08046 Random Glucose Calcium Total Bilirubin AST ALT Alkaline Phosphatase Total Protein Albumin 09/28/17 09/28/17 05:40 05:40 WBC 13.9 H RBC 3.46 L Hgb 9.3 L D Hct 29.6 L MCV 85.5 MCH 27.0 MCHC 31.6 L RDW 16.7 H Plt Count 144 MPV 8.8 Neutrophils % (Manual) Band Neutrophils % Lymphocytes % (Manual) Monocytes % (Manual) Eosinophils % (Manual) Basophils % (Manual) Myelocytes % (Man) Metamyelocytes Hypochromia Platelet Estimate Polychromasia Poikilocytosis Anisocytosis Microcytosis Macrocytosis PTT (Actin FS) Sodium 146 H Potassium 4.0 Chloride 112 H Carbon Dioxide 27 Anion Gap 7 L BUN 55 H Creatinine 1.9 H Creat Clearance w eGFR 26.96 POC Glucometer Random Glucose 268 H Calcium 7.6 L Total Bilirubin 0.3 AST 32 ALT 49 Alkaline Phosphatase 93 Total Protein 4.6 L Albumin 1.6 L Gen: Extubated, awake and responsive Heart: RRR Lung: scattered rhonchi Abd: soft, nontender Ext: + edema Laboratory Results - last 24 hr 09/27/17 09/27/17 09/28/17 05:30 17:48 05:40 WBC RBC Hgb Hct MCV MCH MCHC RDW Plt Count MPV Neutrophils % (Manual) 85.7 H Band Neutrophils % 4.8 Lymphocytes % (Manual) 4.8 L Monocytes % (Manual) 2 L Eosinophils % (Manual) 0.9 D Basophils % (Manual) 0.0 Myelocytes % (Man) 1 D Metamyelocytes 1 Hypochromia 0 Platelet Estimate Decreased Polychromasia 0 Poikilocytosis 0 Anisocytosis 1+ Microcytosis 0 Macrocytosis 0 PTT (Actin FS) 48.8 H Sodium Potassium Chloride Carbon Dioxide Anion Gap BUN Creatinine Creat Clearance w eGFR POC Glucometer 181.23530 Random Glucose Calcium Total Bilirubin AST ALT Alkaline Phosphatase Total Protein Albumin 09/28/17 09/28/17 05:40 05:40 WBC 13.9 H RBC 3.46 L Hgb 9.3 L D Hct 29.6 L MCV 85.5 MCH 27.0 MCHC 31.6 L RDW 16.7 H Plt Count 144 MPV 8.8 Neutrophils % (Manual) Band Neutrophils % Lymphocytes % (Manual) Monocytes % (Manual) Eosinophils % (Manual) Basophils % (Manual) Myelocytes % (Man) Metamyelocytes Hypochromia Platelet Estimate Polychromasia Poikilocytosis Anisocytosis Microcytosis Macrocytosis PTT (Actin FS) Sodium 146 H Potassium 4.0 Chloride 112 H Carbon Dioxide 27 Anion Gap 7 L BUN 55 H Creatinine 1.9 H Creat Clearance w eGFR 26.96 POC Glucometer Random Glucose 268 H Calcium 7.6 L Total Bilirubin 0.3 AST 32 ALT 49 Alkaline Phosphatase 93 Total Protein 4.6 L Albumin 1.6 L ASSESSMENT AND PLAN: Multiple Acute Embolic CVA Acute Hypoxic Respiratory Failure r/o Aspiration Pneumonia Atrial Fibrillation with RVR Metastatic Colon Ca to Lung Acute on Chronic Renal Failure Hyperkalemia HTN DM Hypercholesterolemia - Replace NGT if patient is willing, Speech and Swallow evaluation in AM - continue antibiotics per ID - rate control - continue anticoagulation - monitor urine output, creatinine - Lasix as needed - DVT/GI prophylaxis - continue ICU monitoring - Face tent O2 - Aspiration precautions Dr Kaplan Critical care time spent in reviewing chart, evaluating patient and formulating plan 36 min
[2017-09-28] MEDS ORDERED: MIDAZOLAM HCL 5 MG/1 ML Single Dose Vial ONE (12:30)
[2017-09-28] MEDS ORDERED: PROPOFOL 1,000,000 MCG/100 ML VIAL ONE ×2 (12:30→15:57)
[2017-09-28] MEDS: PROPOFOL 1,000,000 MCG/100 ML VIAL IVPB SCH ×2 (12:45→20:00)
--- NOTE | 2017-09-28 12:50 | PROC ---
Intubation - Intubation Reason for Intubation: Respiratory Failure, Ventilatory Failure Intubation Method: orotracheal Blade used: Glidescope Tube Size (cm): 7.5 Tube position confirmed by: Direct visualization, CO2 detector, Chest x-ray, Breath sounds Breath Sounds after Intubation: equal Post Intubation Xray: Yes
[2017-09-28 14:18] LABS: ARTERIAL BLD GAS O2 SATURATION 98.8 % (90-98.9); ARTERIAL BLOOD GAS BASE EXCESS 2.4 meq/l (-2-2); ARTERIAL BLOOD GAS PCO2 45.8 mmHg (35-45); ARTERIAL BLOOD GAS pH 7.39 (7.35-7.45)
[2017-09-28 14:21] LABS: ALLENS TEST POSITIVE
--- NOTE | 2017-09-28 15:08 | PN ---
Progress Note (short form) - Note Progress Note: prior events noted resp distress, needed suctioning removed her NGT now Reintubated hypernatremia az on ckd multiple embolic cva resp failure/poss asp pneumonia afib htn dm Current Medications Acetaminophen (Ofirmev Injection -) 1,000 mg IVPB Q6H PRN PRN Reason: FEVER OR PAIN Last Admin: 09/27/17 20:05 Dose: 1,000 mg Artificial Tears (Artificial Tears Ointment -) 1 applic OU BID [facility] Last Admin: 09/28/17 09:13 Dose: 1 applic Atorvastatin Calcium (Lipitor -) 20 mg PO HS [facility] Last Admin: 09/27/17 21:37 Dose: 20 mg Chlorhexidine Gluconate (Hibiclens For Decolonization -) 1 applic TP HS [facility] Last Admin: 09/27/17 21:37 Dose: 1 applic Ciprofloxacin (Ciloxan 0.3% Eye Drops --) 2 drop OS Q2H [facility] Last Admin: 09/28/17 14:19 Dose: Not Given Digoxin (Lanoxin Injection -) 0.125 mg IVPUSH Q2D@1000 [facility] Last Admin: 09/28/17 09:13 Dose: 0.125 mg Diltiazem HCl (Cardizem -) 90 mg NGT Q6HPO [facility] Last Admin: 09/28/17 14:16 Dose: Not Given Hydralazine HCl (Apresoline Injection -) 10 mg IVPUSH Q6H PRN PRN Reason: HYPERTENSION Last Admin: 09/25/17 09:36 Dose: 10 mg HEPARIN SOD,PORK IN 0.45% NACL (Heparin-1/2ns 25,000 Units/500) 25,000 units in 500 mls @ 20 mls/hr IVPB TITR [facility]; 1,000 UNITS/HR PRN Reason: Protocol Last Titration: 09/28/17 10:12 Dose: 550 units/hr, 11 mls/hr Piperacillin Sod/Tazobactam (Sod 3.375 gm/ Dextrose) 50 mls @ 100 mls/hr IVPB Q8H-IV [facility] Last Admin: 09/28/17 09:49 Dose: 100 mls/hr Insulin Aspart (Novolog Vial Sliding Scale -) 1 vial SQ Q6H [facility] PRN Reason: Protocol Last Admin: 09/28/17 14:16 Dose: Not Given Insulin Detemir (Levemir Vial) 10 units SQ [facility] Last Admin: 09/27/17 21:37 Dose: 10 units Metoprolol Tartrate (Lopressor Injection -) 5 mg IVPUSH Q4H PRN PRN Reason: HYPERTENSION Last Admin: 09/28/17 09:20 Dose: 5 mg Metoprolol Tartrate (Lopressor -) 25 mg PO BID [facility] Last Admin: 09/28/17 09:15 Dose: Not Given Ondansetron HCl (Zofran Injection) 4 mg IVPUSH Q6H PRN PRN Reason: NAUSEA Pantoprazole Sodium (Protonix Iv) 40 mg IVPUSH DAILY [facility] Last Admin: 09/28/17 09:16 Dose: 40 mg Trazodone HCl (Desyrel -) 50 mg PO [facility] Last Admin: 09/27/17 21:36 Dose: 50 mg Last Vital Signs Temp Pulse Resp BP Pulse Ox 98.6 F 89 14 166/78 95 09/28/17 10:00 09/28/17 12:00 09/28/17 13:50 09/28/17 12:00 09/28/17 08:42 Intake & Output 09/25/17 09/26/17 09/27/17 09/28/17 23:59 23:59 23:59 23:59 Intake Total 2554 1060 885 690 Output Total 2900 1900 1250 400 Balance -346 -840 -365 290 Weight 191 lb 9.307 oz 186 lb 11.704 oz 183 lb 3.266 oz 182 lb 8.684 oz lungs clear vented heart reg abd soft no edema ext no edema CBC, BMP 09/28/17 05:40 09/28/17 05:40 CBC, BMP 09/27/17 05:30 09/27/17 05:30 IMP- hypernatremia improving again after worsening yesterday water deficit is less by labs Plan- resume water via tube feeding follow labs for sodium and renal function
[2017-09-28] MEDS ORDERED: PT OWN MED DRAWER 7, Y5N ONE ×2 (17:58→20:59)
--- NOTE | 2017-09-28 19:35 | PN ---
Progress Note, Physician History of Present Illness: intubated - Current Medication List Current Medications: Active Medications Acetaminophen (Ofirmev Injection -) 1,000 mg IVPB Q6H PRN PRN Reason: FEVER OR PAIN Last Admin: 09/27/17 20:05 Dose: 1,000 mg Artificial Tears (Artificial Tears Ointment -) 1 applic OU BID [facility] Last Admin: 09/28/17 09:13 Dose: 1 applic Atorvastatin Calcium (Lipitor -) 20 mg PO HS [facility] Last Admin: 09/27/17 21:37 Dose: 20 mg Chlorhexidine Gluconate (Hibiclens For Decolonization -) 1 applic TP HS [facility] Last Admin: 09/27/17 21:37 Dose: 1 applic Ciprofloxacin (Ciloxan 0.3% Eye Drops --) 2 drop OS Q2H [facility] Last Admin: 09/28/17 17:43 Dose: 2 drop Digoxin (Lanoxin Injection -) 0.125 mg IVPUSH Q2D@1000 [facility] Last Admin: 09/28/17 09:13 Dose: 0.125 mg Diltiazem HCl (Cardizem -) 90 mg NGT Q6HPO [facility] Last Admin: 09/28/17 18:05 Dose: 90 mg Hydralazine HCl (Apresoline Injection -) 10 mg IVPUSH Q6H PRN PRN Reason: HYPERTENSION Last Admin: 09/25/17 09:36 Dose: 10 mg HEPARIN SOD,PORK IN 0.45% NACL (Heparin-1/2ns 25,000 Units/500) 25,000 units in 500 mls @ 20 mls/hr IVPB TITR [facility]; 1,000 UNITS/HR PRN Reason: Protocol Last Titration: 09/28/17 10:12 Dose: 550 units/hr, 11 mls/hr Piperacillin Sod/Tazobactam (Sod 3.375 gm/ Dextrose) 50 mls @ 100 mls/hr IVPB Q8H-IV [facility] Last Admin: 09/28/17 18:06 Dose: 100 mls/hr Propofol (Diprivan -) 1,000,000 mcg in 100 mls @ 2.484 mls/hr IVPB TITR [facility]; 5 MCG/KG/MIN PRN Reason: Protocol Last Titration: 09/28/17 18:07 Dose: 40 mcg/kg/min, 19.872 mls/hr Insulin Aspart (Novolog Vial Sliding Scale -) 1 vial SQ Q6H [facility] PRN Reason: Protocol Last Admin: 09/28/17 17:57 Dose: Not Given Insulin Detemir (Levemir Vial) 10 units SQ [facility] Last Admin: 09/27/17 21:37 Dose: 10 units Metoprolol Tartrate (Lopressor Injection -) 5 mg IVPUSH Q4H PRN PRN Reason: HYPERTENSION Last Admin: 09/28/17 09:20 Dose: 5 mg Metoprolol Tartrate (Lopressor -) 25 mg PO BID [facility] Last Admin: 09/28/17 09:15 Dose: Not Given Ondansetron HCl (Zofran Injection) 4 mg IVPUSH Q6H PRN PRN Reason: NAUSEA Pantoprazole Sodium (Protonix Iv) 40 mg IVPUSH DAILY [facility] Last Admin: 09/28/17 09:16 Dose: 40 mg Trazodone HCl (Desyrel -) 50 mg PO HS [facility] Last Admin: 09/27/17 21:36 Dose: 50 mg - Objective Vital Signs: Vital Signs Temperature 98.9 F 09/28/17 18:00 Pulse Rate 84 09/28/17 18:00 Respiratory Rate 19 09/28/17 18:55 Blood Pressure 145/65 09/28/17 18:00 O2 Sat by Pulse Oximetry (%) 98 09/28/17 18:17 Cardiovascular: Yes: S1, S2 Respiratory: Yes: Diminished, Mechanically Ventilated Gastrointestinal: Yes: Normal Bowel Sounds, Soft Labs: CBC, BMP 09/28/17 05:40 09/28/17 05:40 INR, PTT INR 0.96 (0.82-1.09) 09/17/17 06:25 Problem List - Problems (1) Respiratory failure Assessment/Plan: PER ICU TEAM NEBS CXR ABX VENT SUPPORT Code(s): J96.90 - RESPIRATORY FAILURE, UNSP, UNSP W HYPOXIA OR HYPERCAPNIA (2) Brain metastasis Code(s): C79.31 - SECONDARY MALIGNANT NEOPLASM OF BRAIN (3) CVA (cerebral vascular accident) Assessment/Plan: ABOVE--SEE NEURO CONSULT CT WITH HYDROCEPHALUS NS AND NEURO ON CASE FURTHER PLAN PER NEURO- AC WITH HEPARIN Code(s): I63.9 - CEREBRAL INFARCTION, UNSPECIFIED (4) Metastatic colorectal cancer Code(s): C78.5 - SECONDARY MALIGNANT NEOPLASM OF LARGE INTESTINE AND RECTUM (5) Atrial fibrillation Assessment/Plan: ON CARDIZEM-METOPROLOL AND DIG ON HEPARIN CARDIO ON BOARD Code(s): I48.91 - UNSPECIFIED ATRIAL FIBRILLATION (6) Diabetes Assessment/Plan: BGM Code(s): E11.9 - TYPE 2 DIABETES MELLITUS WITHOUT COMPLICATIONS (7) Hypernatremia Code(s): E87.0 - HYPEROSMOLALITY AND HYPERNATREMIA
[2017-09-28] MEDS: HEPARIN SOD,PORK IN 0.45% NACL 25,000 UNITS/500 ML INFUS.BAG IVPB SCH (20:00)
[2017-09-28] MEDS: ATORVASTATIN CA 20 MG TABLET (FP) PO SCH (21:12)
[2017-09-28] MEDS: traZODone HCL 50 MG TABLET (FP) PO SCH (21:12)
[2017-09-28] MEDS: INSULIN DETEMIR 100 UNITS/ML MDV SQ SCH (21:13)
[2017-09-28] MEDS: CHLORHEXIDINE GLUCONATE 4% CLEANSER FOR DECOLONIZATION TP SCH (21:13)
[2017-09-29] MEDS: CIPROFLOXACIN 0.3% EYE DROPS 5 ML BOTTLE OS SCH ×13 (00:33→23:00)
[2017-09-29] MEDS: dilTIAZem HCL 30 MG TABLET (FP) NGT SCH ×5 (00:55→23:12)
[2017-09-29] MEDS ORDERED: PT OWN MED DRAWER 7, Y5N ONE ×5 (00:59→22:28)
[2017-09-29] MEDS: INSULIN SLIDING SCALE (NOVOLOG) 1 VIAL SQ SCH ×5 (01:05→23:11)
[2017-09-29] MEDS: PIPERACILLIN/TAZOB 3.375 GM 3.375 GM in DEXTROSE 5%-WATER - 50 ML IVPB SCH ×3 (01:22→19:06)
[2017-09-29 06:28] LABS: HEMATOCRIT 25.3 % (32.4-45.2); HEMOGLOBIN 8.1 GM/dL (10.7-15.3); MEAN CELL VOLUME 84.4 fl (80-96); MEAN PLT VOLUME 8.8 fl (7.5-11.1); PLATELET COUNT 116 K/MM3 (134-434); RBC 2.99 M/mm3 (3.60-5.2); WHITE BLOOD COUNT 12.9 K/mm3 (4.0-10.0)
[2017-09-29 07:05] LABS: CALCIUM 7.3 mg/dL (8.5-10.1); CHLORIDE 113 mmol/L (98-107); POTASSIUM 3.9 mmol/L (3.5-5.1); SODIUM 148 mmol/L (136-145)
[2017-09-29 07:11] LABS: ALBUMIN 1.4 g/dl (3.4-5.0); ALK PHOS 93 U/L (45-117); ANION GAP 9 (8-16); BILIRUBIN,TOTAL 0.3 mg/dL (0.2-1.0); BLOOD UREA NITROGEN 50 mg/dL (7-18); CO2 26 mmol/L (21-32); CREATININE 1.9 mg/dL (0.55-1.02); GLUCOSE,RANDOM 165 mg/dL (74-106); MAGNESIUM 2.1 mg/dL (1.8-2.4); PHOSPHOROUS 2.7 mg/dL (2.5-4.9); SGOT/AST 32 U/L (15-37); SGPT/ALT 48 U/L (12-78); TOT PROT 4.2 g/dl (6.4-8.2)
--- NOTE | 2017-09-29 08:39 | PN ---
Progress Note (short form) - Note Progress Note: reintubated yesterday sedated Vital Signs Period Temp Pulse Resp BP Sys/Mcdaniel Pulse Ox Last 24 Hr 98.2 F-98.9 F 67-90 11-21 100-166/51-78 95-98 cor-rrr lungs decreased bs at bases abd soft,nt ext no edema CBC, BMP 09/29/17 05:15 09/29/17 05:15 Microbiology 09/23/17 17:00 Blood Culture - Final Blood - Peripheral Venous NO GROWTH AFTER 5 DAYS INCUBATION 09/23/17 17:00 Blood Culture - Final Blood - Peripheral Venous NO GROWTH AFTER 5 DAYS INCUBATION cxray RLL infiltrate persistent Current Medications Acetaminophen (Ofirmev Injection -) 1,000 mg IVPB Q6H PRN PRN Reason: FEVER OR PAIN Last Admin: 09/27/17 20:05 Dose: 1,000 mg Artificial Tears (Artificial Tears Ointment -) 1 applic OU BID [facility] Last Admin: 09/28/17 21:15 Dose: 1 applic Atorvastatin Calcium (Lipitor -) 20 mg PO HS [facility] Last Admin: 09/28/17 21:12 Dose: 20 mg Chlorhexidine Gluconate (Hibiclens For Decolonization -) 1 applic TP HS [facility] Last Admin: 09/28/17 21:13 Dose: 1 applic Ciprofloxacin (Ciloxan 0.3% Eye Drops --) 2 drop OS Q2H [facility] Last Admin: 09/29/17 06:20 Dose: 2 drop Digoxin (Lanoxin Injection -) 0.125 mg IVPUSH Q2D@1000 [facility] Last Admin: 09/28/17 09:13 Dose: 0.125 mg Diltiazem HCl (Cardizem -) 90 mg NGT Q6HPO [facility] Last Admin: 09/29/17 06:20 Dose: 90 mg Hydralazine HCl (Apresoline Injection -) 10 mg IVPUSH Q6H PRN PRN Reason: HYPERTENSION Last Admin: 09/25/17 09:36 Dose: 10 mg HEPARIN SOD,PORK IN 0.45% NACL (Heparin-1/2ns 25,000 Units/500) 25,000 units in 500 mls @ 20 mls/hr IVPB TITR [facility]; 1,000 UNITS/HR PRN Reason: Protocol Last Admin: 09/28/17 20:00 Dose: 550 units/hr, 11 mls/hr Piperacillin Sod/Tazobactam (Sod 3.375 gm/ Dextrose) 50 mls @ 100 mls/hr IVPB Q8H-IV [facility] Last Admin: 09/29/17 01:22 Dose: 100 mls/hr Propofol (Diprivan -) 1,000,000 mcg in 100 mls @ 2.484 mls/hr IVPB TITR [facility]; 5 MCG/KG/MIN PRN Reason: Protocol Last Admin: 09/28/17 20:00 Dose: 40 mcg/kg/min, 19.872 mls/hr Insulin Aspart (Novolog Vial Sliding Scale -) 1 vial SQ Q6H [facility] PRN Reason: Protocol Last Admin: 09/29/17 06:20 Dose: Not Given Insulin Detemir (Levemir Vial) 10 units SQ HS [facility] Last Admin: 09/28/17 21:13 Dose: 10 units Metoprolol Tartrate (Lopressor Injection -) 5 mg IVPUSH Q4H PRN PRN Reason: HYPERTENSION Last Admin: 09/28/17 09:20 Dose: 5 mg Metoprolol Tartrate (Lopressor -) 25 mg PO BID [facility] Last Admin: 09/28/17 22:00 Dose: 25 mg Ondansetron HCl (Zofran Injection) 4 mg IVPUSH Q6H PRN PRN Reason: NAUSEA Pantoprazole Sodium (Protonix Iv) 40 mg IVPUSH DAILY [facility] Last Admin: 09/28/17 09:16 Dose: 40 mg Trazodone HCl (Desyrel -) 50 mg PO HS [facility] Last Admin: 09/28/17 21:12 Dose: 50 mg a/p respiratory failure-multiple episodes CVA Afib metastatic colon cancer Renal insufficiency diabetes day #6 zosyn will d/w ICU service
[2017-09-29] MEDS: HEPARIN SOD,PORK IN 0.45% NACL 25,000 UNITS/500 ML INFUS.BAG IVPB SCH (09:01)
[2017-09-29] MEDS: METOPROLOL TARTRATE 25 MG TABLET (FP) PO SCH ×2 (09:26→21:30)
[2017-09-29] MEDS: PANTOPRAZOLE SODIUM 40 MG VIAL IVPUSH SCH (09:26)
[2017-09-29] MEDS: MINERAL OIL/PETROLATUM,WHITE 3.5 GM TUBE OU SCH ×2 (09:26→21:34)
--- NOTE | 2017-09-29 11:37 | PN ---
Progress Note, Physician Chief Complaint: patient reintubated yesterday for increased work of breathing and hypoxia sedated on propofol - Current Medication List Current Medications: Active Medications Acetaminophen (Ofirmev Injection -) 1,000 mg IVPB Q6H PRN PRN Reason: FEVER OR PAIN Last Admin: 09/27/17 20:05 Dose: 1,000 mg Artificial Tears (Artificial Tears Ointment -) 1 applic OU BID [facility] Last Admin: 09/29/17 09:26 Dose: 1 applic Atorvastatin Calcium (Lipitor -) 20 mg PO HS [facility] Last Admin: 09/28/17 21:12 Dose: 20 mg Chlorhexidine Gluconate (Hibiclens For Decolonization -) 1 applic TP HS [facility] Last Admin: 09/28/17 21:13 Dose: 1 applic Ciprofloxacin (Ciloxan 0.3% Eye Drops --) 2 drop OS Q2H [facility] Last Admin: 09/29/17 09:19 Dose: 2 drop Digoxin (Lanoxin Injection -) 0.125 mg IVPUSH Q2D@1000 [facility] Last Admin: 09/28/17 09:13 Dose: 0.125 mg Diltiazem HCl (Cardizem -) 90 mg NGT Q6HPO [facility] Last Admin: 09/29/17 06:20 Dose: 90 mg Hydralazine HCl (Apresoline Injection -) 10 mg IVPUSH Q6H PRN PRN Reason: HYPERTENSION Last Admin: 09/25/17 09:36 Dose: 10 mg HEPARIN SOD,PORK IN 0.45% NACL (Heparin-1/2ns 25,000 Units/500) 25,000 units in 500 mls @ 20 mls/hr IVPB TITR [facility]; 1,000 UNITS/HR PRN Reason: Protocol Last Admin: 09/29/17 09:01 Dose: 650 units/hr, 13 mls/hr Piperacillin Sod/Tazobactam (Sod 3.375 gm/ Dextrose) 50 mls @ 100 mls/hr IVPB Q8H-IV [facility] Last Admin: 09/29/17 09:25 Dose: 100 mls/hr Propofol (Diprivan -) 1,000,000 mcg in 100 mls @ 2.484 mls/hr IVPB TITR [facility]; 5 MCG/KG/MIN PRN Reason: Protocol Last Admin: 09/28/17 20:00 Dose: 40 mcg/kg/min, 19.872 mls/hr Insulin Aspart (Novolog Vial Sliding Scale -) 1 vial SQ Q6H [facility] PRN Reason: Protocol Last Admin: 09/29/17 06:20 Dose: Not Given Insulin Detemir (Levemir Vial) 10 units SQ [facility] Last Admin: 09/28/17 21:13 Dose: 10 units Metoprolol Tartrate (Lopressor Injection -) 5 mg IVPUSH Q4H PRN PRN Reason: HYPERTENSION Last Admin: 09/28/17 09:20 Dose: 5 mg Metoprolol Tartrate (Lopressor -) 25 mg PO BID [facility] Last Admin: 09/29/17 09:26 Dose: 25 mg Ondansetron HCl (Zofran Injection) 4 mg IVPUSH Q6H PRN PRN Reason: NAUSEA Pantoprazole Sodium (Protonix Iv) 40 mg IVPUSH DAILY [facility] Last Admin: 09/29/17 09:26 Dose: 40 mg Trazodone HCl (Desyrel -) 50 mg PO [facility] Last Admin: 09/28/17 21:12 Dose: 50 mg - Objective Vital Signs: Vital Signs Temperature 98.4 F 09/29/17 09:30 Pulse Rate 66 09/29/17 10:00 Respiratory Rate 12 09/29/17 10:00 Blood Pressure 134/62 09/29/17 10:00 O2 Sat by Pulse Oximetry (%) 98 09/28/17 21:00 Constitutional: Yes: Calm Cardiovascular: Yes: Regular Rate and Rhythm, S1, S2 Respiratory: Yes: Mechanically Ventilated Gastrointestinal: Yes: Normal Bowel Sounds, Soft Edema: Yes Labs: CBC, BMP 09/29/17 05:15 09/29/17 05:15 INR, PTT INR 0.96 (0.82-1.09) 09/17/17 06:25 Problem List - Problems (1) Pneumonia Assessment/Plan: iv zosyn Code(s): J18.9 - PNEUMONIA, UNSPECIFIED ORGANISM (2) Respiratory failure Assessment/Plan: intubated sedated Code(s): J96.90 - RESPIRATORY FAILURE, UNSP, UNSP W HYPOXIA OR HYPERCAPNIA (3) Atrial fibrillation Assessment/Plan: digoxin,cardizem and metoprolol Code(s): I48.91 - UNSPECIFIED ATRIAL FIBRILLATION (4) Anemia Assessment/Plan: stool occult blood ppi iron panel GI follow up Code(s): D64.9 - ANEMIA, UNSPECIFIED (5) Diabetes Assessment/Plan: insulin bgm ok for now Code(s): E11.9 - TYPE 2 DIABETES MELLITUS WITHOUT COMPLICATIONS Qualifiers: Diabetes mellitus type: type 2 (6) CVA (cerebral vascular accident) Assessment/Plan: S/p multiple embolic infarcts intubated Code(s): I63.9 - CEREBRAL INFARCTION, UNSPECIFIED
--- NOTE | 2017-09-29 12:09 | PN ---
Teaching Attending Note Name of Resident: Carson Lopez ATTENDING PHYSICIAN STATEMENT I saw and evaluated the patient. I reviewed the resident's note and discussed the case with the resident. I agree with the resident's findings and plan as documented. SUBJECTIVE: Patient seen and examined in the ICU. Remains intubated. AC Mode of vent, 35% FiO2. No pressors. Intake & Output 09/26/17 09/27/17 09/28/17 09/29/17 23:59 23:59 23:59 23:59 Intake Total 1060 885 878 210 Output Total 1900 1250 850 400 Balance -840 -365 28 -190 Weight 186 lb 11.704 oz 183 lb 3.266 oz 182 lb 8.684 oz 185 lb 10.067 oz Last Vital Signs Temp Pulse Resp BP Pulse Ox 98.4 F 66 12 134/62 98 09/29/17 09:30 09/29/17 10:00 09/29/17 11:57 09/29/17 10:00 09/28/17 21:00 Active Medications Acetaminophen (Ofirmev Injection -) 1,000 mg IVPB Q6H PRN PRN Reason: FEVER OR PAIN Last Admin: 09/27/17 20:05 Dose: 1,000 mg Artificial Tears (Artificial Tears Ointment -) 1 applic OU BID [facility] Last Admin: 09/29/17 09:26 Dose: 1 applic Atorvastatin Calcium (Lipitor -) 20 mg PO [facility] Last Admin: 09/28/17 21:12 Dose: 20 mg Chlorhexidine Gluconate (Hibiclens For Decolonization -) 1 applic TP HS [facility] Last Admin: 09/28/17 21:13 Dose: 1 applic Ciprofloxacin (Ciloxan 0.3% Eye Drops --) 2 drop OS Q2H [facility] Last Admin: 09/29/17 09:19 Dose: 2 drop Digoxin (Lanoxin Injection -) 0.125 mg IVPUSH Q2D@1000 [facility] Last Admin: 09/28/17 09:13 Dose: 0.125 mg Diltiazem HCl (Cardizem -) 90 mg NGT Q6HPO [facility] Last Admin: 09/29/17 06:20 Dose: 90 mg Hydralazine HCl (Apresoline Injection -) 10 mg IVPUSH Q6H PRN PRN Reason: HYPERTENSION Last Admin: 09/25/17 09:36 Dose: 10 mg HEPARIN SOD,PORK IN 0.45% NACL (Heparin-1/2ns 25,000 Units/500) 25,000 units in 500 mls @ 20 mls/hr IVPB TITR [facility]; 1,000 UNITS/HR PRN Reason: Protocol Last Admin: 09/29/17 09:01 Dose: 650 units/hr, 13 mls/hr Piperacillin Sod/Tazobactam (Sod 3.375 gm/ Dextrose) 50 mls @ 100 mls/hr IVPB Q8H-IV [facility] Last Admin: 09/29/17 09:25 Dose: 100 mls/hr Propofol (Diprivan -) 1,000,000 mcg in 100 mls @ 2.484 mls/hr IVPB TITR [facility]; 5 MCG/KG/MIN PRN Reason: Protocol Last Admin: 09/28/17 20:00 Dose: 40 mcg/kg/min, 19.872 mls/hr Insulin Aspart (Novolog Vial Sliding Scale -) 1 vial SQ Q6H [facility] PRN Reason: Protocol Last Admin: 09/29/17 06:20 Dose: Not Given Insulin Detemir (Levemir Vial) 10 units SQ HS [facility] Last Admin: 09/28/17 21:13 Dose: 10 units Metoprolol Tartrate (Lopressor Injection -) 5 mg IVPUSH Q4H PRN PRN Reason: HYPERTENSION Last Admin: 09/28/17 09:20 Dose: 5 mg Metoprolol Tartrate (Lopressor -) 25 mg PO BID [facility] Last Admin: 09/29/17 09:26 Dose: 25 mg Ondansetron HCl (Zofran Injection) 4 mg IVPUSH Q6H PRN PRN Reason: NAUSEA Pantoprazole Sodium (Protonix Iv) 40 mg IVPUSH DAILY [facility] Last Admin: 09/29/17 09:26 Dose: 40 mg Trazodone HCl (Desyrel -) 50 mg PO HS [facility] Last Admin: 09/28/17 21:12 Dose: 50 mg Gen: Extubated, awake and responsive Heart: RRR Lung: scattered rhonchi Abd: soft, nontender Ext: + edema Laboratory Results - last 24 hr 09/24/17 09/24/17 09/26/17 17:43 23:20 02:00 WBC RBC Hgb Hct MCV MCH MCHC RDW Plt Count MPV PTT (Actin FS) Puncture Site ABG pH ABG pCO2 at Pt Temp ABG pO2 at Pt Temp ABG HCO3 ABG O2 Sat (Measured) ABG O2 Content ABG Base Excess Addy Test O2 Delivery Device Oxygen Flow Rate Vent Mode Vent Rate Mechanical Rate PEEP Pressure Support Vent Sodium Potassium Chloride Carbon Dioxide Anion Gap BUN Creatinine Creat Clearance w eGFR POC Glucometer 202.23361 218.49015 154.75694 Random Glucose Calcium Phosphorus Magnesium Total Bilirubin AST ALT Alkaline Phosphatase Total Protein Albumin 09/28/17 09/28/17 09/28/17 14:10 17:49 18:45 WBC RBC Hgb Hct MCV MCH MCHC RDW Plt Count MPV PTT (Actin FS) 58.1 H Puncture Site Left radial ABG pH 7.39 ABG pCO2 at Pt Temp 45.8 H D ABG pO2 at Pt Temp 115.0 H ABG HCO3 27.1 H ABG O2 Sat (Measured) 98.8 ABG O2 Content 11.9 L ABG Base Excess 2.4 H Addy Test Positive O2 Delivery Device Mech vent Oxygen Flow Rate 40% Vent Mode A/c Vent Rate 12 Mechanical Rate Yes PEEP 5.0 Pressure Support Vent 400 Sodium Potassium Chloride Carbon Dioxide Anion Gap BUN Creatinine Creat Clearance w eGFR POC Glucometer 107.10464 Random Glucose Calcium Phosphorus Magnesium Total Bilirubin AST ALT Alkaline Phosphatase Total Protein Albumin 09/28/17 09/29/17 09/29/17 21:06 05:15 05:15 WBC 12.9 H RBC 2.99 L Hgb 8.1 L D Hct 25.3 L MCV 84.4 MCH 27.0 MCHC 32.0 RDW 16.0 H Plt Count 116 L MPV 8.8 PTT (Actin FS) Puncture Site ABG pH ABG pCO2 at Pt Temp ABG pO2 at Pt Temp ABG HCO3 ABG O2 Sat (Measured) ABG O2 Content ABG Base Excess Addy Test O2 Delivery Device Oxygen Flow Rate Vent Mode Vent Rate Mechanical Rate PEEP Pressure Support Vent Sodium 148 H Potassium 3.9 Chloride 113 H Carbon Dioxide 26 Anion Gap 9 BUN 50 H Creatinine 1.9 H Creat Clearance w eGFR 26.96 POC Glucometer 135.18884 Random Glucose 165 H Calcium 7.3 L Phosphorus 2.7 Magnesium 2.1 Total Bilirubin 0.3 AST 32 ALT 48 Alkaline Phosphatase 93 Total Protein 4.2 L Albumin 1.4 L 01/22/18 05:15 WBC RBC Hgb Hct MCV MCH MCHC RDW Plt Count MPV PTT (Actin FS) 42.5 H Puncture Site ABG pH ABG pCO2 at Pt Temp ABG pO2 at Pt Temp ABG HCO3 ABG O2 Sat (Measured) ABG O2 Content ABG Base Excess Addy Test O2 Delivery Device Oxygen Flow Rate Vent Mode Vent Rate Mechanical Rate PEEP Pressure Support Vent Sodium Potassium Chloride Carbon Dioxide Anion Gap BUN Creatinine Creat Clearance w eGFR POC Glucometer Random Glucose Calcium Phosphorus Magnesium Total Bilirubin AST ALT Alkaline Phosphatase Total Protein Albumin ASSESSMENT AND PLAN: Multiple Acute Embolic CVA Acute Hypoxic Respiratory Failure r/o Aspiration Pneumonia Atrial Fibrillation with RVR Metastatic Colon Ca to Lung Acute on Chronic Renal Failure Hyperkalemia HTN DM Hypercholesterolemia - NGT feeds - continue antibiotics per ID - rate control - continue anticoagulation - monitor urine output, creatinine - Lasix as needed - DVT/GI prophylaxis - continue ICU monitoring - Will need Trach and PEG Dr Kaplan Critical care time spent in reviewing chart, evaluating patient and formulating plan 36 min
--- NOTE | 2017-09-29 13:10 | PN ---
Physical Exam: SUBJECTIVE: Patient seen and examined in ICU. Patient intubated/sedated on propofol. Patient's vent settings-- rate of 12, RV 400, FIO2 35%, PEEP 5. OBJECTIVE: Vital Signs Period Temp Pulse Resp BP Sys/Mcdaniel Pulse Ox Last 24 Hr 98.2 F-98.9 F 66-90 11-19 100-154/56-78 97-98 GENERAL: The patient is intubated. Sedated HEAD: Healing L eye bruise. EYES: Bilaterally reacting pupils. Improving L eye hyphema ENT:ETT and NGT in place NECK: Supple. LUNGS: Rhonchi throughout, HEART: S1, S2, RRR ABDOMEN: Soft, nontender, nondistended, normoactive bowel sounds, EXTREMITIES: 2+ pulses, warm, well-perfused, no edema, SCDs. NEUROLOGICAL: Sedated, intubated PSYCH: drowsy Laboratory Results - last 24 hr 09/24/17 09/24/17 09/26/17 17:43 23:20 02:00 WBC RBC Hgb Hct MCV MCH MCHC RDW Plt Count MPV PTT (Actin FS) Puncture Site ABG pH ABG pCO2 at Pt Temp ABG pO2 at Pt Temp ABG HCO3 ABG O2 Sat (Measured) ABG O2 Content ABG Base Excess Addy Test O2 Delivery Device Oxygen Flow Rate Vent Mode Vent Rate Mechanical Rate PEEP Pressure Support Vent Sodium Potassium Chloride Carbon Dioxide Anion Gap BUN Creatinine Creat Clearance w eGFR POC Glucometer 202.36819 218.76271 154.42967 Random Glucose Calcium Phosphorus Magnesium Total Bilirubin AST ALT Alkaline Phosphatase Total Protein Albumin 09/28/17 09/28/17 09/28/17 14:10 17:49 18:45 WBC RBC Hgb Hct MCV MCH MCHC RDW Plt Count MPV PTT (Actin FS) 58.1 H Puncture Site Left radial ABG pH 7.39 ABG pCO2 at Pt Temp 45.8 H D ABG pO2 at Pt Temp 115.0 H ABG HCO3 27.1 H ABG O2 Sat (Measured) 98.8 ABG O2 Content 11.9 L ABG Base Excess 2.4 H Addy Test Positive O2 Delivery Device Mech vent Oxygen Flow Rate 40% Vent Mode A/c Vent Rate 12 Mechanical Rate Yes PEEP 5.0 Pressure Support Vent 400 Sodium Potassium Chloride Carbon Dioxide Anion Gap BUN Creatinine Creat Clearance w eGFR POC Glucometer 107.31263 Random Glucose Calcium Phosphorus Magnesium Total Bilirubin AST ALT Alkaline Phosphatase Total Protein Albumin 09/28/17 09/29/17 09/29/17 21:06 05:15 05:15 WBC 12.9 H RBC 2.99 L Hgb 8.1 L D Hct 25.3 L MCV 84.4 MCH 27.0 MCHC 32.0 RDW 16.0 H Plt Count 116 L MPV 8.8 PTT (Actin FS) Puncture Site ABG pH ABG pCO2 at Pt Temp ABG pO2 at Pt Temp ABG HCO3 ABG O2 Sat (Measured) ABG O2 Content ABG Base Excess Addy Test O2 Delivery Device Oxygen Flow Rate Vent Mode Vent Rate Mechanical Rate PEEP Pressure Support Vent Sodium 148 H Potassium 3.9 Chloride 113 H Carbon Dioxide 26 Anion Gap 9 BUN 50 H Creatinine 1.9 H Creat Clearance w eGFR 26.96 POC Glucometer 135.39048 Random Glucose 165 H Calcium 7.3 L Phosphorus 2.7 Magnesium 2.1 Total Bilirubin 0.3 AST 32 ALT 48 Alkaline Phosphatase 93 Total Protein 4.2 L Albumin 1.4 L 09/29/17 05:15 WBC RBC Hgb Hct MCV MCH MCHC RDW Plt Count MPV PTT (Actin FS) 42.5 H Puncture Site ABG pH ABG pCO2 at Pt Temp ABG pO2 at Pt Temp ABG HCO3 ABG O2 Sat (Measured) ABG O2 Content ABG Base Excess Addy Test O2 Delivery Device Oxygen Flow Rate Vent Mode Vent Rate Mechanical Rate PEEP Pressure Support Vent Sodium Potassium Chloride Carbon Dioxide Anion Gap BUN Creatinine Creat Clearance w eGFR POC Glucometer Random Glucose Calcium Phosphorus Magnesium Total Bilirubin AST ALT Alkaline Phosphatase Total Protein Albumin Active Medications Generic Name Dose Route Start Last Admin Trade Name Alfonso PRN Reason Stop Dose Admin Acetaminophen 1,000 mg 09/15/17 11:50 09/27/17 20:05 Ofirmev Injection - IVPB 1,000 mg Q6H PRN Administration FEVER OR PAIN Artificial Tears 1 applic 09/15/17 22:00 09/29/17 09:26 Artificial Tears Ointment - OU 1 applic BID [facility] Administration Atorvastatin Calcium 20 mg 09/11/17 22:00 09/28/17 21:12 Lipitor - PO 20 mg HS [facility] Administration Chlorhexidine Gluconate 1 applic 09/15/17 22:00 09/28/17 21:13 Hibiclens For Decolonization - TP 1 applic HS [facility] Administration Ciprofloxacin 2 drop 09/16/17 14:45 09/29/17 12:47 Ciloxan 0.3% Eye Drops -- OS 2 drop Q2H [facility] Administration Digoxin 0.125 mg 09/24/17 10:00 09/28/17 09:13 Lanoxin Injection - IVPUSH 0.125 mg Q2D@1000 [facility] Administration Diltiazem HCl 90 mg 09/25/17 12:45 09/29/17 12:51 Cardizem - NGT 90 mg Q6HPO [facility] Administration Hydralazine HCl 10 mg 09/11/17 10:25 09/25/17 09:36 Apresoline Injection - IVPUSH 10 mg Q6H PRN Administration HYPERTENSION HEPARIN SOD,PORK IN 0.45% NACL 25,000 units in 500 mls @ 20 mls/hr 09/12/17 20 :00 09/29/17 09:01 Heparin-1/2ns 25,000 Units/500 IVPB 650 units/hr TITR [facility] 13 mls/hr Protocol Administration 1,000 UNITS/HR Piperacillin Sod/Tazobactam 50 mls @ 100 mls/hr 09/23/17 18:00 09/29/17 09:25 Sod 3.375 gm/ Dextrose IVPB 100 mls/hr Q8H-IV [facility] Administration Propofol 1,000,000 mcg in 100 mls @ 2.484 mls/hr 09/28/17 17:45 09/28/17 20: 00 Diprivan - IVPB 40 mcg/kg/min TITR [facility] 19.872 mls/hr Protocol Administration 5 MCG/KG/MIN Insulin Aspart 1 vial 09/27/17 00:00 09/29/17 12:48 Novolog Vial Sliding Scale - SQ 4 units Q6H [facility] Administration Protocol Insulin Detemir 10 units 09/26/17 22:00 09/28/17 21:13 Levemir Vial SQ 10 units HS [facility] Administration Metoprolol Tartrate 5 mg 09/11/17 10:25 09/28/17 09:20 Lopressor Injection - IVPUSH 5 mg Q4H PRN Administration HYPERTENSION Metoprolol Tartrate 25 mg 09/25/17 12:30 09/29/17 09:26 Lopressor - PO 25 mg BID [facility] Administration Ondansetron HCl 4 mg 09/11/17 02:02 Zofran Injection IVPUSH Q6H PRN NAUSEA Pantoprazole Sodium 40 mg 09/23/17 14:15 09/29/17 09:26 Protonix Iv IVPUSH 40 mg DAILY [facility] Administration Trazodone HCl 50 mg 09/20/17 22:00 09/28/17 21:12 Desyrel - PO 50 mg HS [facility] Administration ASSESSMENT/PLAN: 62 yo F with PMHx of HTN, paroxysmal atrial fibrillation on apixaban, DM, HLD, CKD, GERD and colon CA s/p colectomy 2011 with mets to lung admitted to ICU for AMS now reintubated Neuro: Multiple acute strokes -Serial neuro checks -low threshold to repeat imaging for change in exam/ mental status -Continue sedation with propofol drip -Trazadone 50 mg po hs CV: HTN, HLD, Afib on AC at at baseline -cardiology consulted -close hemodynamic monitoring -Digoxin 0.125 mg IV Q2D -diltiazem 90 mg NGT Q6hpo -Lipitor 20 mg po hs -Lopressor 25 mg po bid -Heparin drip Pulm: Acute hypoxic respiratory failure -Patient intubated -Will likely need Tracheostomy and PEG tube placement Heme/Onc: Colon Ca s/p resection now with mets to lung and likely brain on chemo , on heparin drip -Heparin Drip for AC Renal: Creatinine 1.9 -monitor renal fxn -renally dose meds as indicated -Monitor urine output -Avoid nephrotoxic medications ID: Aspiration pneumonia -Zosyn q8h IV day 6 Endo: IDDM -follow BGM -sliding scale as needed FEN/GI -No IVF -Monitor -Tube feeds with free water PPX: -PPI -Heparin drip currently CODE: FULL CODE Visit type - Emergency Visit Emergency Visit: Yes ED Registration Date: 09/10/17 Care time: The patient presented to the Emergency Department on the above date and was hospitalized for further evaluation of their emergent condition. - New Patient This patient is new to me today: No - Critical Care Critical Care patient: Yes Total Critical Care Time (in minutes): 35 Critical Care Statement: The care of this patient involved high complexity decision making to prevent further life threatening deterioration of the patient 's condition and/or to evaluate & treat vital organ system(s) failure or risk of failure.
--- NOTE | 2017-09-29 13:15 | PN ---
Progress Note, Physician History of Present Illness: Pt seen and examined at bedside. She is now re-intubated. She remains in the ICU. Daughter at bedside and care was discussed with her. - Current Medication List Current Medications: Active Medications Acetaminophen (Ofirmev Injection -) 1,000 mg IVPB Q6H PRN PRN Reason: FEVER OR PAIN Last Admin: 09/27/17 20:05 Dose: 1,000 mg Artificial Tears (Artificial Tears Ointment -) 1 applic OU BID [facility] Last Admin: 09/29/17 09:26 Dose: 1 applic Atorvastatin Calcium (Lipitor -) 20 mg PO HS [facility] Last Admin: 09/28/17 21:12 Dose: 20 mg Chlorhexidine Gluconate (Hibiclens For Decolonization -) 1 applic TP HS [facility] Last Admin: 09/28/17 21:13 Dose: 1 applic Ciprofloxacin (Ciloxan 0.3% Eye Drops --) 2 drop OS Q2H [facility] Last Admin: 09/29/17 12:47 Dose: 2 drop Digoxin (Lanoxin Injection -) 0.125 mg IVPUSH Q2D@1000 [facility] Last Admin: 09/28/17 09:13 Dose: 0.125 mg Diltiazem HCl (Cardizem -) 90 mg NGT Q6HPO [facility] Last Admin: 09/29/17 12:51 Dose: 90 mg Hydralazine HCl (Apresoline Injection -) 10 mg IVPUSH Q6H PRN PRN Reason: HYPERTENSION Last Admin: 09/25/17 09:36 Dose: 10 mg HEPARIN SOD,PORK IN 0.45% NACL (Heparin-1/2ns 25,000 Units/500) 25,000 units in 500 mls @ 20 mls/hr IVPB TITR [facility]; 1,000 UNITS/HR PRN Reason: Protocol Last Admin: 09/29/17 09:01 Dose: 650 units/hr, 13 mls/hr Piperacillin Sod/Tazobactam (Sod 3.375 gm/ Dextrose) 50 mls @ 100 mls/hr IVPB Q8H-IV [facility] Last Admin: 09/29/17 09:25 Dose: 100 mls/hr Propofol (Diprivan -) 1,000,000 mcg in 100 mls @ 2.484 mls/hr IVPB TITR [facility]; 5 MCG/KG/MIN PRN Reason: Protocol Last Admin: 09/28/17 20:00 Dose: 40 mcg/kg/min, 19.872 mls/hr Insulin Aspart (Novolog Vial Sliding Scale -) 1 vial SQ Q6H [facility] PRN Reason: Protocol Last Admin: 09/29/17 12:48 Dose: 4 units Insulin Detemir (Levemir Vial) 10 units SQ [facility] Last Admin: 09/28/17 21:13 Dose: 10 units Metoprolol Tartrate (Lopressor Injection -) 5 mg IVPUSH Q4H PRN PRN Reason: HYPERTENSION Last Admin: 09/28/17 09:20 Dose: 5 mg Metoprolol Tartrate (Lopressor -) 25 mg PO BID [facility] Last Admin: 09/29/17 09:26 Dose: 25 mg Ondansetron HCl (Zofran Injection) 4 mg IVPUSH Q6H PRN PRN Reason: NAUSEA Pantoprazole Sodium (Protonix Iv) 40 mg IVPUSH DAILY [facility] Last Admin: 09/29/17 09:26 Dose: 40 mg Trazodone HCl (Desyrel -) 50 mg PO [facility] Last Admin: 09/28/17 21:12 Dose: 50 mg - Objective Vital Signs: Vital Signs Temperature 98.4 F 09/29/17 09:30 Pulse Rate 66 09/29/17 10:00 Respiratory Rate 12 09/29/17 11:57 Blood Pressure 134/62 09/29/17 10:00 O2 Sat by Pulse Oximetry (%) 98 09/29/17 10:00 Constitutional: Yes: Calm Eyes: Yes: Conjunctiva Clear HENT: Yes: Atraumatic Neck: Yes: Supple Cardiovascular: Yes: S1, S2 Respiratory: Yes: Mechanically Ventilated Gastrointestinal: Yes: Soft Genitourinary: Yes: Mcdonald Present Musculoskeletal: Yes: Muscle Weakness Edema: Yes Neurological: Yes: Lethargy Labs: CBC, BMP 09/29/17 05:15 09/29/17 05:15 INR, PTT INR 0.96 (0.82-1.09) 09/17/17 06:25 - ....Imaging Chest X-ray: Report Reviewed Problem List - Problems (1) Brain metastasis Code(s): C79.31 - SECONDARY MALIGNANT NEOPLASM OF BRAIN (2) Headache Code(s): R51 - HEADACHE Qualifiers: Headache chronicity pattern: unspecified pattern Intractability: intractable (3) Metastatic colorectal cancer Code(s): C78.5 - SECONDARY MALIGNANT NEOPLASM OF LARGE INTESTINE AND RECTUM (4) SUSAN (acute kidney injury) Code(s): N17.9 - ACUTE KIDNEY FAILURE, UNSPECIFIED (5) Atrial fibrillation Code(s): I48.91 - UNSPECIFIED ATRIAL FIBRILLATION (6) Cancer, colon Code(s): C18.9 - MALIGNANT NEOPLASM OF COLON, UNSPECIFIED Qualifiers: Colon location: unspecified part of colon Qualified Code(s): C18.9 - Malignant neoplasm of colon, unspecified (7) Lung mass Code(s): R91.8 - OTHER NONSPECIFIC ABNORMAL FINDING OF LUNG FIELD Assessment/Plan Current Medications Generic Name Dose Route Start Last Admin Trade Name Freq PRN Reason Stop Dose Admin Acetaminophen 1,000 mg 09/15/17 11:50 09/27/17 20:05 Ofirmev Injection - IVPB 1,000 mg Q6H PRN Administration FEVER OR PAIN Artificial Tears 1 applic 09/15/17 22:00 09/29/17 09:26 Artificial Tears Ointment - OU 1 applic BID [facility] Administration Atorvastatin Calcium 20 mg 09/11/17 22:00 09/28/17 21:12 Lipitor - PO 20 mg HS [facility] Administration Chlorhexidine Gluconate 1 applic 09/15/17 22:00 09/28/17 21:13 Hibiclens For Decolonization - TP 1 applic HS [facility] Administration Ciprofloxacin 2 drop 09/16/17 14:45 09/29/17 12:47 Ciloxan 0.3% Eye Drops -- OS 2 drop Q2H [facility] Administration Digoxin 0.125 mg 09/24/17 10:00 09/28/17 09:13 Lanoxin Injection - IVPUSH 0.125 mg Q2D@1000 [facility] Administration Diltiazem HCl 90 mg 09/25/17 12:45 09/29/17 12:51 Cardizem - NGT 90 mg Q6HPO [facility] Administration Hydralazine HCl 10 mg 09/11/17 10:25 09/25/17 09:36 Apresoline Injection - IVPUSH 10 mg Q6H PRN Administration HYPERTENSION HEPARIN SOD,PORK IN 0.45% NACL 25,000 units in 500 mls @ 20 mls/hr 09/12/17 20 :00 09/29/17 09:01 Heparin-1/2ns 25,000 Units/500 IVPB 650 units/hr TITR [facility] 13 mls/hr Protocol Administration 1,000 UNITS/HR Piperacillin Sod/Tazobactam 50 mls @ 100 mls/hr 09/23/17 18:00 09/29/17 09:25 Sod 3.375 gm/ Dextrose IVPB 100 mls/hr Q8H-IV [facility] Administration Propofol 1,000,000 mcg in 100 mls @ 2.484 mls/hr 09/28/17 17:45 09/28/17 20: 00 Diprivan - IVPB 40 mcg/kg/min TITR [facility] 19.872 mls/hr Protocol Administration 5 MCG/KG/MIN Insulin Aspart 1 vial 09/27/17 00:00 09/29/17 12:48 Novolog Vial Sliding Scale - SQ 4 units Q6H [facility] Administration Protocol Insulin Detemir 10 units 09/26/17 22:00 09/28/17 21:13 Levemir Vial SQ 10 units HS [facility] Administration Metoprolol Tartrate 5 mg 09/11/17 10:25 09/28/17 09:20 Lopressor Injection - IVPUSH 5 mg Q4H PRN Administration HYPERTENSION Metoprolol Tartrate 25 mg 09/25/17 12:30 09/29/17 09:26 Lopressor - PO 25 mg BID [facility] Administration Ondansetron HCl 4 mg 09/11/17 02:02 Zofran Injection IVPUSH Q6H PRN NAUSEA Pantoprazole Sodium 40 mg 09/23/17 14:15 09/29/17 09:26 Protonix Iv IVPUSH 40 mg DAILY [facility] Administration Trazodone HCl 50 mg 09/20/17 22:00 09/28/17 21:12 Desyrel - PO 50 mg HS [facility] Administration Impression 1. CKD 2. SUSAN 3. DM 4. htn 5. chol 6. chemo port malfunction 7. a-fib 8. lung mass 9. proteinuria 10. adenocarcinoma 11. CVA 12. acute resp failure 13. hyperkalemia 14. hypernatremia Plan - would avoid fluids - cont feeds with free water - monitor sodium - daily cxr - discussed with daughter - total free water deficit to get sodium to 140 is about 2.4 liters - cont ICU care - will follow Dr Llanos
[2017-09-29] MEDS: PROPOFOL 1,000,000 MCG/100 ML VIAL IVPB SCH (18:59)
[2017-09-29] MEDS: ATORVASTATIN CA 20 MG TABLET (FP) PO SCH (21:30)
[2017-09-29] MEDS: CHLORHEXIDINE GLUCONATE 4% CLEANSER FOR DECOLONIZATION TP SCH (21:31)
[2017-09-29] MEDS: traZODone HCL 50 MG TABLET (FP) PO SCH (21:33)
[2017-09-29] MEDS ORDERED: HEMOQUE TEST 1 EACH EACH ONE (21:45)
[2017-09-29] MEDS: INSULIN DETEMIR 100 UNITS/ML MDV SQ SCH (21:51)
[2017-09-30] MEDS: CIPROFLOXACIN 0.3% EYE DROPS 5 ML BOTTLE OS SCH ×11 (01:00→21:47)
--- NOTE | 2017-09-30 01:59 | PN ---
Progress Note, Physician Chief Complaint: intubated sedated History of Present Illness: 62y female,sp cva,respiratory failure,iddm,colon cancer,afib,hypernatremia,on insulin schedule with poor prognosis - Current Medication List Current Medications: Active Medications Acetaminophen (Ofirmev Injection -) 1,000 mg IVPB Q6H PRN PRN Reason: FEVER OR PAIN Last Admin: 09/27/17 20:05 Dose: 1,000 mg Artificial Tears (Artificial Tears Ointment -) 1 applic OU BID [facility] Last Admin: 09/29/17 21:34 Dose: 1 applic Atorvastatin Calcium (Lipitor -) 20 mg PO HS [facility] Last Admin: 09/29/17 21:30 Dose: 20 mg Chlorhexidine Gluconate (Hibiclens For Decolonization -) 1 applic TP HS [facility] Last Admin: 09/29/17 21:31 Dose: 1 applic Ciprofloxacin (Ciloxan 0.3% Eye Drops --) 2 drop OS Q2H [facility] Last Admin: 09/29/17 23:00 Dose: 2 drop Digoxin (Lanoxin Injection -) 0.125 mg IVPUSH Q2D@1000 [facility] Last Admin: 09/28/17 09:13 Dose: 0.125 mg Diltiazem HCl (Cardizem -) 90 mg NGT Q6HPO [facility] Last Admin: 09/29/17 23:12 Dose: 90 mg Hydralazine HCl (Apresoline Injection -) 10 mg IVPUSH Q6H PRN PRN Reason: HYPERTENSION Last Admin: 09/25/17 09:36 Dose: 10 mg HEPARIN SOD,PORK IN 0.45% NACL (Heparin-1/2ns 25,000 Units/500) 25,000 units in 500 mls @ 20 mls/hr IVPB TITR [facility]; 1,000 UNITS/HR PRN Reason: Protocol Last Admin: 09/29/17 09:01 Dose: 650 units/hr, 13 mls/hr Piperacillin Sod/Tazobactam (Sod 3.375 gm/ Dextrose) 50 mls @ 100 mls/hr IVPB Q8H-IV [facility] Last Admin: 09/29/17 19:06 Dose: 100 mls/hr Propofol (Diprivan -) 1,000,000 mcg in 100 mls @ 2.484 mls/hr IVPB TITR [facility]; 5 MCG/KG/MIN PRN Reason: Protocol Last Admin: 09/29/17 18:59 Dose: 40 mcg/kg/min, 19.872 mls/hr Insulin Aspart (Novolog Vial Sliding Scale -) 1 vial SQ Q6H [facility] PRN Reason: Protocol Last Admin: 09/29/17 23:11 Dose: 4 units Insulin Detemir (Levemir Vial) 10 units SQ [facility] Last Admin: 09/29/17 21:51 Dose: 10 units Metoprolol Tartrate (Lopressor Injection -) 5 mg IVPUSH Q4H PRN PRN Reason: HYPERTENSION Last Admin: 09/28/17 09:20 Dose: 5 mg Metoprolol Tartrate (Lopressor -) 25 mg PO BID [facility] Last Admin: 09/29/17 21:30 Dose: 25 mg Ondansetron HCl (Zofran Injection) 4 mg IVPUSH Q6H PRN PRN Reason: NAUSEA Pantoprazole Sodium (Protonix Iv) 40 mg IVPUSH DAILY [facility] Last Admin: 09/29/17 09:26 Dose: 40 mg Trazodone HCl (Desyrel -) 50 mg PO [facility] Last Admin: 09/29/17 21:33 Dose: 50 mg - Objective Vital Signs: Vital Signs Temperature 98.0 F 09/29/17 22:00 Pulse Rate 66 09/29/17 22:00 Respiratory Rate 12 09/30/17 00:17 Blood Pressure 135/61 09/29/17 22:00 O2 Sat by Pulse Oximetry (%) 95 09/29/17 21:00 Constitutional: Yes: Well Nourished Neck: Yes: Trachea Midline Respiratory: Yes: Mechanically Ventilated Gastrointestinal: Yes: Hypoactive Bowel Sounds Musculoskeletal: Yes: Muscle Weakness Neurological: Yes: Other (sedated) Labs: CBC, BMP 09/29/17 05:15 09/29/17 05:15 INR, PTT INR 0.96 (0.82-1.09) 09/17/17 06:25 Problem List - Problems (1) 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 Code(s): E10.3211 - TYPE 1 DIAB WITH MILD NONP RTNOP WITH MACULAR EDEMA, R EYE (2) Brain metastasis Code(s): C79.31 - SECONDARY MALIGNANT NEOPLASM OF BRAIN (3) CVA (cerebral vascular accident) Code(s): I63.9 - CEREBRAL INFARCTION, UNSPECIFIED (4) Headache Code(s): R51 - HEADACHE Qualifiers: Headache chronicity pattern: unspecified pattern Intractability: intractable (5) Hypercapnia Code(s): R06.89 - OTHER ABNORMALITIES OF BREATHING (6) Metastatic colorectal cancer Code(s): C78.5 - SECONDARY MALIGNANT NEOPLASM OF LARGE INTESTINE AND RECTUM (7) SUSAN (acute kidney injury) Code(s): N17.9 - ACUTE KIDNEY FAILURE, UNSPECIFIED Assessment/Plan Current Active Problems Anemia (Acute) Brain metastasis (Acute) CVA (cerebral vascular accident) (Acute) Headache (Acute) Hypercapnia (Acute) Hypernatremia (Acute) Intractable vomiting with nausea (Acute) Metastatic colorectal cancer (Acute) Pneumonia (Acute) Respiratory failure (Acute) 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 (Acute) Laboratory Results - last 24 hr 09/24/17 09/24/17 09/26/17 17:43 23:20 02:00 WBC RBC Hgb Hct MCV MCH MCHC RDW Plt Count MPV PTT (Actin FS) Sodium Potassium Chloride Carbon Dioxide Anion Gap BUN Creatinine Creat Clearance w eGFR POC Glucometer 202.50828 218.26683 [phone] Random Glucose Calcium Phosphorus Magnesium Total Bilirubin AST ALT Alkaline Phosphatase Total Protein Albumin 09/29/17 09/29/17 09/29/17 05:15 05:15 05:15 WBC 12.9 H RBC 2.99 L Hgb 8.1 L D Hct 25.3 L MCV 84.4 MCH 27.0 MCHC 32.0 RDW 16.0 H Plt Count 116 L MPV 8.8 PTT (Actin FS) 42.5 H Sodium 148 H Potassium 3.9 Chloride 113 H Carbon Dioxide 26 Anion Gap 9 BUN 50 H Creatinine 1.9 H Creat Clearance w eGFR 26.96 POC Glucometer Random Glucose 165 H Calcium 7.3 L Phosphorus 2.7 Magnesium 2.1 Total Bilirubin 0.3 AST 32 ALT 48 Alkaline Phosphatase 93 Total Protein 4.2 L Albumin 1.4 L 09/29/17 09/29/17 15:35 21:48 WBC RBC Hgb Hct MCV MCH MCHC RDW Plt Count MPV PTT (Actin FS) 59.0 H D Sodium Potassium Chloride Carbon Dioxide Anion Gap BUN Creatinine Creat Clearance w eGFR POC Glucometer [phone] Random Glucose Calcium Phosphorus Magnesium Total Bilirubin AST ALT Alkaline Phosphatase Total Protein Albumin plan: supportive care bgm qid novolog insulin scale Current Medications Generic Name Dose Route Start Last Admin Trade Name Freq PRN Reason Stop Dose Admin Acetaminophen 1,000 mg 09/15/17 11:50 09/27/17 20:05 Ofirmev Injection - IVPB 1,000 mg Q6H PRN Administration FEVER OR PAIN Artificial Tears 1 applic 09/15/17 22:00 09/29/17 21:34 Artificial Tears Ointment - OU 1 applic BID [facility] Administration Atorvastatin Calcium 20 mg 09/11/17 22:00 09/29/17 21:30 Lipitor - PO 20 mg HS [facility] Administration Chlorhexidine Gluconate 1 applic 09/15/17 22:00 09/29/17 21:31 Hibiclens For Decolonization - TP 1 applic HS [facility] Administration Ciprofloxacin 2 drop 09/16/17 14:45 09/29/17 23:00 Ciloxan 0.3% Eye Drops -- OS 2 drop Q2H [facility] Administration Digoxin 0.125 mg 09/24/17 10:00 09/28/17 09:13 Lanoxin Injection - IVPUSH 0.125 mg Q2D@1000 [facility] Administration Diltiazem HCl 90 mg 09/25/17 12:45 09/29/17 23:12 Cardizem - NGT 90 mg Q6HPO [facility] Administration Hydralazine HCl 10 mg 09/11/17 10:25 09/25/17 09:36 Apresoline Injection - IVPUSH 10 mg Q6H PRN Administration HYPERTENSION HEPARIN SOD,PORK IN 0.45% NACL 25,000 units in 500 mls @ 20 mls/hr 09/12/17 20 :00 09/29/17 09:01 Heparin-1/2ns 25,000 Units/500 IVPB 650 units/hr TITR [facility] 13 mls/hr Protocol Administration 1,000 UNITS/HR Piperacillin Sod/Tazobactam 50 mls @ 100 mls/hr 09/23/17 18:00 09/29/17 19:06 Sod 3.375 gm/ Dextrose IVPB 100 mls/hr Q8H-IV [facility] Administration Propofol 1,000,000 mcg in 100 mls @ 2.484 mls/hr 09/28/17 17:45 09/29/17 18: 59 Diprivan - IVPB 40 mcg/kg/min TITR [facility] 19.872 mls/hr Protocol Administration 5 MCG/KG/MIN Insulin Aspart 1 vial 09/27/17 00:00 09/29/17 23:11 Novolog Vial Sliding Scale - SQ 4 units Q6H [facility] Administration Protocol Insulin Detemir 10 units 09/26/17 22:00 09/29/17 21:51 Levemir Vial SQ 10 units HS [facility] Administration Metoprolol Tartrate 5 mg 09/11/17 10:25 09/28/17 09:20 Lopressor Injection - IVPUSH 5 mg Q4H PRN Administration HYPERTENSION Metoprolol Tartrate 25 mg 09/25/17 12:30 09/29/17 21:30 Lopressor - PO 25 mg BID [facility] Administration Ondansetron HCl 4 mg 09/11/17 02:02 Zofran Injection IVPUSH Q6H PRN NAUSEA Pantoprazole Sodium 40 mg 09/23/17 14:15 09/29/17 09:26 Protonix Iv IVPUSH 40 mg DAILY [facility] Administration Trazodone HCl 50 mg 09/20/17 22:00 09/29/17 21:33 Desyrel - PO 50 mg HS [facility] Administration
[2017-09-30] MEDS: PIPERACILLIN/TAZOB 3.375 GM 3.375 GM in DEXTROSE 5%-WATER - 50 ML IVPB SCH ×2 (02:41→09:10)
[2017-09-30] MEDS: ACETAMINOPHEN 1000 MG/100 ML VIAL (NON FORMULARY) IVPB PRN (03:43)
[2017-09-30] MEDS: dilTIAZem HCL 30 MG TABLET (FP) NGT SCH ×3 (06:03→17:32)
[2017-09-30] MEDS: INSULIN SLIDING SCALE (NOVOLOG) 1 VIAL SQ SCH ×3 (06:04→17:00)
[2017-09-30 06:22] LABS: BASO % 0.5 % (0-2.0); EOS % 3.7 % (0-4.5); HEMATOCRIT 22.7 % (32.4-45.2); HEMOGLOBIN 7.4 GM/dL (10.7-15.3); LYMPH % 10.7 % (8-40); MCH 27.3 pg (25.7-33.7); MCHC 32.4 g/dl (32.0-36.0); MEAN CELL VOLUME 84.3 fl (80-96); MEAN PLT VOLUME 8.8 fl (7.5-11.1); MONO % 2.2 % (3.8-10.2); NEUT % 82.9 % (42.8-82.8); PLATELET COUNT 98 K/MM3 (134-434); RBC 2.69 M/mm3 (3.60-5.2); RDW 16.5 % (11.6-15.6); WHITE BLOOD COUNT 7.7 K/mm3 (4.0-10.0)
[2017-09-30 06:33] LABS: ARTERIAL BLOOD GAS BASE EXCESS 1.8 meq/l (-2-2); ARTERIAL BLOOD GAS PCO2 38.3 mmHg (35-45); ARTERIAL BLOOD GAS PO2 81.7 mmHg (80-100); ARTERIAL BLOOD GAS pH 7.44 (7.35-7.45)
[2017-09-30 06:43] LABS: ALLENS TEST POSITIVE
[2017-09-30 06:57] LABS: ALBUMIN 1.2 g/dl (3.4-5.0); ANION GAP 8 (8-16); BLOOD UREA NITROGEN 46 mg/dL (7-18); CALCIUM 7.3 mg/dL (8.5-10.1); CHLORIDE 113 mmol/L (98-107); CO2 27 mmol/L (21-32); CREATININE 1.8 mg/dL (0.55-1.02); GLUCOSE,RANDOM 158 mg/dL (74-106); MAGNESIUM 2.1 mg/dL (1.8-2.4); PHOSPHOROUS 2.8 mg/dL (2.5-4.9); POTASSIUM 3.4 mmol/L (3.5-5.1); SGPT/ALT 34 U/L (12-78); SODIUM 148 mmol/L (136-145)
[2017-09-30 07:04] LABS: ALK PHOS 71 U/L (45-117); BILIRUBIN,TOTAL 0.3 mg/dL (0.2-1.0); SGOT/AST 18 U/L (15-37); TOT PROT 3.9 g/dl (6.4-8.2)
[2017-09-30] MEDS ORDERED: PT OWN MED DRAWER 7, Y5N ONE ×3 (08:57→21:25)
--- NOTE | 2017-09-30 08:58 | PN ---
Progress Note (short form) - Note Progress Note: reintubated Friday per RN for trach today sedated Vital Signs Period Temp Pulse Resp BP Sys/Mcdaniel Pulse Ox Last 24 Hr 98.0 F-99.5 F 58-85 12-16 115-145/50-68 95-98 cor-rrr lungs decreased bs at bases abd soft,nt ext no edema CBC, BMP 09/30/17 05:08 09/30/17 05:08 cxray unchanged-RLL density Current Medications Acetaminophen (Ofirmev Injection -) 1,000 mg IVPB Q6H PRN PRN Reason: FEVER OR PAIN Last Admin: 09/27/17 20:05 Dose: 1,000 mg Artificial Tears (Artificial Tears Ointment -) 1 applic OU BID [facility] Last Admin: 09/28/17 21:15 Dose: 1 applic Atorvastatin Calcium (Lipitor -) 20 mg PO HS [facility] Last Admin: 09/28/17 21:12 Dose: 20 mg Chlorhexidine Gluconate (Hibiclens For Decolonization -) 1 applic TP HS [facility] Last Admin: 09/28/17 21:13 Dose: 1 applic Ciprofloxacin (Ciloxan 0.3% Eye Drops --) 2 drop OS Q2H [facility] Last Admin: 09/29/17 06:20 Dose: 2 drop Digoxin (Lanoxin Injection -) 0.125 mg IVPUSH Q2D@1000 [facility] Last Admin: 09/28/17 09:13 Dose: 0.125 mg Diltiazem HCl (Cardizem -) 90 mg NGT Q6HPO [facility] Last Admin: 09/29/17 06:20 Dose: 90 mg Hydralazine HCl (Apresoline Injection -) 10 mg IVPUSH Q6H PRN PRN Reason: HYPERTENSION Last Admin: 09/25/17 09:36 Dose: 10 mg HEPARIN SOD,PORK IN 0.45% NACL (Heparin-1/2ns 25,000 Units/500) 25,000 units in 500 mls @ 20 mls/hr IVPB TITR [facility]; 1,000 UNITS/HR PRN Reason: Protocol Last Admin: 09/28/17 20:00 Dose: 550 units/hr, 11 mls/hr Piperacillin Sod/Tazobactam (Sod 3.375 gm/ Dextrose) 50 mls @ 100 mls/hr IVPB Q8H-IV [facility] Last Admin: 09/29/17 01:22 Dose: 100 mls/hr Propofol (Diprivan -) 1,000,000 mcg in 100 mls @ 2.484 mls/hr IVPB TITR [facility]; 5 MCG/KG/MIN PRN Reason: Protocol Last Admin: 09/28/17 20:00 Dose: 40 mcg/kg/min, 19.872 mls/hr Insulin Aspart (Novolog Vial Sliding Scale -) 1 vial SQ Q6H [facility] PRN Reason: Protocol Last Admin: 09/29/17 06:20 Dose: Not Given Insulin Detemir (Levemir Vial) 10 units SQ HS [facility] Last Admin: 09/28/17 21:13 Dose: 10 units Metoprolol Tartrate (Lopressor Injection -) 5 mg IVPUSH Q4H PRN PRN Reason: HYPERTENSION Last Admin: 09/28/17 09:20 Dose: 5 mg Metoprolol Tartrate (Lopressor -) 25 mg PO BID [facility] Last Admin: 09/28/17 22:00 Dose: 25 mg Ondansetron HCl (Zofran Injection) 4 mg IVPUSH Q6H PRN PRN Reason: NAUSEA Pantoprazole Sodium (Protonix Iv) 40 mg IVPUSH DAILY [facility] Last Admin: 09/28/17 09:16 Dose: 40 mg Trazodone HCl (Desyrel -) 50 mg PO HS [facility] Last Admin: 09/28/17 21:12 Dose: 50 mg a/p respiratory failure-multiple episodes CVA Afib metastatic colon cancer Renal insufficiency diabetes day #7 zosyn for trach today plan d/c antibiotics in am
[2017-09-30] MEDS: PROPOFOL 1,000,000 MCG/100 ML VIAL IVPB SCH ×3 (09:02→18:53)
[2017-09-30] MEDS: PANTOPRAZOLE SODIUM 40 MG VIAL IVPUSH SCH (09:10)
[2017-09-30] MEDS: MINERAL OIL/PETROLATUM,WHITE 3.5 GM TUBE OU SCH ×2 (09:14→21:46)
--- NOTE | 2017-09-30 09:34 | PN ---
Progress Note, Physician History of Present Illness: intubated and sedated - Current Medication List Current Medications: Active Medications Artificial Tears (Artificial Tears Ointment -) 1 applic OU BID [facility] Last Admin: 09/30/17 09:14 Dose: 1 applic Atorvastatin Calcium (Lipitor -) 20 mg PO HS [facility] Last Admin: 09/29/17 21:30 Dose: 20 mg Chlorhexidine Gluconate (Hibiclens For Decolonization -) 1 applic TP HS [facility] Last Admin: 09/29/17 21:31 Dose: 1 applic Ciprofloxacin (Ciloxan 0.3% Eye Drops --) 2 drop OS Q2H [facility] Last Admin: 09/30/17 05:00 Dose: 2 drop Digoxin (Lanoxin Injection -) 0.125 mg IVPUSH Q2D@1000 [facility] Last Admin: 09/28/17 09:13 Dose: 0.125 mg Diltiazem HCl (Cardizem -) 90 mg NGT Q6HPO [facility] Last Admin: 09/30/17 06:03 Dose: 90 mg Hydralazine HCl (Apresoline Injection -) 10 mg IVPUSH Q6H PRN PRN Reason: HYPERTENSION Last Admin: 09/25/17 09:36 Dose: 10 mg HEPARIN SOD,PORK IN 0.45% NACL (Heparin-1/2ns 25,000 Units/500) 25,000 units in 500 mls @ 20 mls/hr IVPB TITR [facility]; 1,000 UNITS/HR PRN Reason: Protocol Last Admin: 09/29/17 09:01 Dose: 650 units/hr, 13 mls/hr Piperacillin Sod/Tazobactam (Sod 3.375 gm/ Dextrose) 50 mls @ 100 mls/hr IVPB Q8H-IV [facility] Last Admin: 09/30/17 02:41 Dose: 100 mls/hr Propofol (Diprivan -) 1,000,000 mcg in 100 mls @ 2.484 mls/hr IVPB TITR [facility]; 5 MCG/KG/MIN PRN Reason: Protocol Last Admin: 09/30/17 09:02 Dose: 40 mcg/kg/min, 19.872 mls/hr Insulin Aspart (Novolog Vial Sliding Scale -) 1 vial SQ Q6H [facility] PRN Reason: Protocol Last Admin: 09/30/17 06:04 Dose: Not Given Insulin Detemir (Levemir Vial) 10 units SQ [facility] Last Admin: 09/29/17 21:51 Dose: 10 units Metoprolol Tartrate (Lopressor Injection -) 5 mg IVPUSH Q4H PRN PRN Reason: HYPERTENSION Last Admin: 09/28/17 09:20 Dose: 5 mg Metoprolol Tartrate (Lopressor -) 25 mg PO BID [facility] Last Admin: 09/29/17 21:30 Dose: 25 mg Ondansetron HCl (Zofran Injection) 4 mg IVPUSH Q6H PRN PRN Reason: NAUSEA Pantoprazole Sodium (Protonix Iv) 40 mg IVPUSH DAILY [facility] Last Admin: 09/30/17 09:10 Dose: 40 mg Trazodone HCl (Desyrel -) 50 mg PO [facility] Last Admin: 09/29/17 21:33 Dose: 50 mg - Objective Vital Signs: Vital Signs Temperature 99.0 F 09/30/17 06:00 Pulse Rate 60 09/30/17 08:00 Respiratory Rate 13 09/30/17 08:40 Blood Pressure 115/52 09/30/17 08:00 O2 Sat by Pulse Oximetry (%) 97 09/30/17 08:40 Cardiovascular: Yes: S1, S2 Respiratory: Yes: Mechanically Ventilated Gastrointestinal: Yes: Normal Bowel Sounds, Soft Labs: CBC, BMP 09/30/17 05:08 09/30/17 05:08 INR, PTT INR 0.96 (0.82-1.09) 09/17/17 06:25 Problem List - Problems (1) Respiratory failure Code(s): J96.90 - RESPIRATORY FAILURE, UNSP, UNSP W HYPOXIA OR HYPERCAPNIA (2) Brain metastasis Code(s): C79.31 - SECONDARY MALIGNANT NEOPLASM OF BRAIN (3) CVA (cerebral vascular accident) Code(s): I63.9 - CEREBRAL INFARCTION, UNSPECIFIED (4) Metastatic colorectal cancer Code(s): C78.5 - SECONDARY MALIGNANT NEOPLASM OF LARGE INTESTINE AND RECTUM (5) Atrial fibrillation Code(s): I48.91 - UNSPECIFIED ATRIAL FIBRILLATION (6) Diabetes Code(s): E11.9 - TYPE 2 DIABETES MELLITUS WITHOUT COMPLICATIONS Qualifiers: Diabetes mellitus type: type 2 (7) Hypernatremia Code(s): E87.0 - HYPEROSMOLALITY AND HYPERNATREMIA Assessment/Plan (1) Pneumonia Assessment/Plan: iv zosyn Code(s): J18.9 - PNEUMONIA, UNSPECIFIED ORGANISM (2) Respiratory failure Assessment/Plan: intubated sedated trach Code(s): J96.90 - RESPIRATORY FAILURE, UNSP, UNSP W HYPOXIA OR HYPERCAPNIA (3) Atrial fibrillation Assessment/Plan: digoxin,cardizem and metoprolol Code(s): I48.91 - UNSPECIFIED ATRIAL FIBRILLATION (4) Anemia Assessment/Plan: stool occult blood gi consult ppi iron panel GI follow up Code(s): D64.9 - ANEMIA, UNSPECIFIED (5) Diabetes Assessment/Plan: insulin bgm ok for now Code(s): E11.9 - TYPE 2 DIABETES MELLITUS WITHOUT COMPLICATIONS Qualifiers: Diabetes mellitus type: type 2 (6) CVA (cerebral vascular accident) Assessment/Plan: S/p multiple embolic infarcts intubated Code(s): I63.9 - CEREBRAL INFARCTION, UNSPECIFIED
[2017-09-30] MEDS: DIGOXIN 0.5 MG/2 ML AMPUL IVPUSH SCH (10:32)
--- NOTE | 2017-09-30 12:11 | PN ---
Physical Exam: SUBJECTIVE: Patient seen and examined Patient intubated/sedated on propofol. Patient's vent settings-- rate of 12, RV 400, FIO2 35%, PEEP 5. OBJECTIVE: Vital Signs Period Temp Pulse Resp BP Sys/Mcdaniel Pulse Ox Last 24 Hr 98.0 F-99.5 F 58-85 12-16 115-142/50-62 95-98 GENERAL: The patient is intubated. Sedated HEAD: Healing L eye bruise. EYES: Bilaterally reacting pupils. Improving L eye hyphema ENT:ETT and NGT in place NECK: Supple. LUNGS: Rhonchi throughout, HEART: S1, S2, RRR ABDOMEN: Soft, nontender, nondistended, normoactive bowel sounds, EXTREMITIES: 2+ pulses, warm, well-perfused, no edema, SCDs. NEUROLOGICAL: Sedated, intubated PSYCH: drowsy Laboratory Results - last 24 hr 09/29/17 09/29/17 09/30/17 15:35 21:48 05:08 WBC 7.7 D RBC 2.69 L Hgb 7.4 L Hct 22.7 L MCV 84.3 MCH 27.3 MCHC 32.4 RDW 16.5 H Plt Count 98 L MPV 8.8 Neutrophils % 82.9 H Lymphocytes % 10.7 D Monocytes % 2.2 L Eosinophils % 3.7 D Basophils % 0.5 D PTT (Actin FS) 59.0 H D Puncture Site ABG pH ABG pCO2 at Pt Temp ABG pO2 at Pt Temp ABG HCO3 ABG O2 Sat (Measured) ABG O2 Content ABG Base Excess Addy Test O2 Delivery Device Oxygen Flow Rate Vent Rate PEEP Sodium Potassium Chloride Carbon Dioxide Anion Gap BUN Creatinine Creat Clearance w eGFR POC Glucometer 238.60947 Random Glucose Calcium Phosphorus Magnesium Ferritin Total Bilirubin AST ALT Alkaline Phosphatase Total Protein Albumin Serum Folate 09/30/17 09/30/17 09/30/17 05:08 05:08 05:15 WBC RBC Hgb Hct MCV MCH MCHC RDW Plt Count MPV Neutrophils % Lymphocytes % Monocytes % Eosinophils % Basophils % PTT (Actin FS) 51.6 H Puncture Site ABG pH ABG pCO2 at Pt Temp ABG pO2 at Pt Temp ABG HCO3 ABG O2 Sat (Measured) ABG O2 Content ABG Base Excess Addy Test O2 Delivery Device Oxygen Flow Rate Vent Rate PEEP Sodium 148 H Potassium 3.4 L Chloride 113 H Carbon Dioxide 27 Anion Gap 8 BUN 46 H Creatinine 1.8 H Creat Clearance w eGFR 28.70 POC Glucometer 169.19342 Random Glucose 158 H Calcium 7.3 L Phosphorus 2.8 Magnesium 2.1 Ferritin 133.970 Total Bilirubin 0.3 AST 18 ALT 34 Alkaline Phosphatase 71 Total Protein 3.9 L Albumin 1.2 L Serum Folate 9 09/30/17 06:00 WBC RBC Hgb Hct MCV MCH MCHC RDW Plt Count MPV Neutrophils % Lymphocytes % Monocytes % Eosinophils % Basophils % PTT (Actin FS) Puncture Site Right radial ABG pH 7.44 ABG pCO2 at Pt Temp 38.3 ABG pO2 at Pt Temp 81.7 D ABG HCO3 25.5 ABG O2 Sat (Measured) 97.0 ABG O2 Content 10.5 L ABG Base Excess 1.8 Addy Test Positive O2 Delivery Device Ventilator Oxygen Flow Rate 35% Vent Rate 12 PEEP 5.0 Sodium Potassium Chloride Carbon Dioxide Anion Gap BUN Creatinine Creat Clearance w eGFR POC Glucometer Random Glucose Calcium Phosphorus Magnesium Ferritin Total Bilirubin AST ALT Alkaline Phosphatase Total Protein Albumin Serum Folate Active Medications Generic Name Dose Route Start Last Admin Trade Name Freq PRN Reason Stop Dose Admin Artificial Tears 1 applic 09/15/17 22:00 09/30/17 09:14 Artificial Tears Ointment - OU 1 applic BID [facility] Administration Atorvastatin Calcium 20 mg 09/11/17 22:00 09/29/17 21:30 Lipitor - PO 20 mg HS [facility] Administration Chlorhexidine Gluconate 1 applic 09/15/17 22:00 09/29/17 21:31 Hibiclens For Decolonization - TP 1 applic HS [facility] Administration Ciprofloxacin 2 drop 09/16/17 14:45 09/30/17 10:32 Ciloxan 0.3% Eye Drops -- OS 2 drop Q2H [facility] Administration Digoxin 0.125 mg 09/24/17 10:00 09/30/17 10:32 Lanoxin Injection - IVPUSH 0.125 mg Q2D@1000 [facility] Administration Diltiazem HCl 90 mg 09/25/17 12:45 09/30/17 06:03 Cardizem - NGT 90 mg Q6HPO [facility] Administration Hydralazine HCl 10 mg 09/11/17 10:25 09/25/17 09:36 Apresoline Injection - IVPUSH 10 mg Q6H PRN Administration HYPERTENSION HEPARIN SOD,PORK IN 0.45% NACL 25,000 units in 500 mls @ 20 mls/hr 09/12/17 20 :00 09/29/17 09:01 Heparin-1/2ns 25,000 Units/500 IVPB 650 units/hr TITR [facility] 13 mls/hr Protocol Administration 1,000 UNITS/HR Propofol 1,000,000 mcg in 100 mls @ 2.484 mls/hr 09/28/17 17:45 09/30/17 09: 02 Diprivan - IVPB 40 mcg/kg/min TITR [facility] 19.872 mls/hr Protocol Administration 5 MCG/KG/MIN Potassium Chloride 10 meq/ 105 mls @ 100 mls/hr 09/30/17 10:15 Sodium Chloride IVPB 09/30/17 12:14 Q60M [facility] Piperacillin Sod/Tazobactam 100 mls @ 100 mls/hr 09/30/17 10:26 Sod 3.375 gm/ Dextrose IVPB Q8H-IV [facility] Insulin Aspart 1 vial 09/27/17 00:00 09/30/17 06:04 Novolog Vial Sliding Scale - SQ Not Given Q6H [facility] Protocol Insulin Detemir 10 units 09/26/17 22:00 09/29/17 21:51 Levemir Vial SQ 10 units HS [facility] Administration Metoprolol Tartrate 5 mg 09/11/17 10:25 09/28/17 09:20 Lopressor Injection - IVPUSH 5 mg Q4H PRN Administration HYPERTENSION Metoprolol Tartrate 25 mg 09/25/17 12:30 09/29/17 21:30 Lopressor - PO 25 mg BID [facility] Administration Ondansetron HCl 4 mg 09/11/17 02:02 Zofran Injection IVPUSH Q6H PRN NAUSEA Pantoprazole Sodium 40 mg 09/23/17 14:15 09/30/17 09:10 Protonix Iv IVPUSH 40 mg DAILY [facility] Administration Trazodone HCl 50 mg 09/20/17 22:00 09/29/17 21:33 Desyrel - PO 50 mg HS [facility] Administration ASSESSMENT/PLAN: 62 yo F with PMHx of HTN, paroxysmal atrial fibrillation on apixaban, DM, HLD, CKD, GERD and colon CA s/p colectomy 2011 with mets to lung admitted to ICU for AMS now reintubated Neuro: Multiple acute strokes -Serial neuro checks -low threshold to repeat imaging for change in exam/ mental status -Continue sedation with propofol drip -Trazadone 50 mg po hs CV: HTN, HLD, Afib on AC at at baseline -cardiology consulted -close hemodynamic monitoring -Digoxin 0.125 mg IV Q2D -diltiazem 90 mg NGT Q6hpo -Lipitor 20 mg po hs -Lopressor 25 mg po bid -Heparin drip Pulm: Acute hypoxic respiratory failure -Patient intubated -Possible tracheostomy tomorrow, Will be NPO after midnight -Possible PEG tube placement on , Heparin drip hold at midnight on 10/02 Heme/Onc: Colon Ca s/p resection now with mets to lung and likely brain on chemo , on heparin drip -Heparin Drip for AC Renal: Creatinine 1.8 -monitor renal fxn -renally dose meds as indicated -Monitor urine output -Avoid nephrotoxic medications ID: Aspiration pneumonia -Zosyn q8h IV day 7. Stop in AM Endo: IDDM -follow BGM -sliding scale as needed FEN/GI -No IVF -Monitor -Tube feeds with free water PPX: -PPI -Heparin drip currently CODE: FULL CODE Visit type - Emergency Visit Emergency Visit: Yes ED Registration Date: 09/10/17 Care time: The patient presented to the Emergency Department on the above date and was hospitalized for further evaluation of their emergent condition. - New Patient This patient is new to me today: No - Critical Care Critical Care patient: Yes Total Critical Care Time (in minutes): 40 Critical Care Statement: The care of this patient involved high complexity decision making to prevent further life threatening deterioration of the patient 's condition and/or to evaluate & treat vital organ system(s) failure or risk of failure.
[2017-09-30] MEDS: METOPROLOL TARTRATE 25 MG TABLET (FP) PO SCH ×2 (12:17→21:44)
--- NOTE | 2017-09-30 12:28 | PN ---
Teaching Attending Note Name of Resident: Carson Lopez ATTENDING PHYSICIAN STATEMENT I saw and evaluated the patient. I reviewed the resident's note and discussed the case with the resident. I agree with the resident's findings and plan as documented. SUBJECTIVE: Patient seen and examined in the ICU. Remains intubated and sedated. AC Mode of vent, 35% FiO2. No pressors. Intake & Output 09/27/17 09/28/17 09/29/17 09/30/17 23:59 23:59 23:59 23:59 Intake Total 677 138 7058.4 345 Output Total 2679 610 4182 600 Balance -365 28 -36.6 -255 Weight 183 lb 3.266 oz 182 lb 8.684 oz 185 lb 10.067 oz 185 lb 5 oz Last Vital Signs Temp Pulse Resp BP Pulse Ox 98.2 F 67 16 132/62 98 09/30/17 10:00 09/30/17 12:00 09/30/17 12:17 09/30/17 12:00 09/30/17 10:00 Active Medications Artificial Tears (Artificial Tears Ointment -) 1 applic OU BID [facility] Last Admin: 09/30/17 09:14 Dose: 1 applic Atorvastatin Calcium (Lipitor -) 20 mg PO [facility] Last Admin: 09/29/17 21:30 Dose: 20 mg Chlorhexidine Gluconate (Hibiclens For Decolonization -) 1 applic TP HS [facility] Last Admin: 09/29/17 21:31 Dose: 1 applic Ciprofloxacin (Ciloxan 0.3% Eye Drops --) 2 drop OS Q2H [facility] Last Admin: 09/30/17 10:32 Dose: 2 drop Digoxin (Lanoxin Injection -) 0.125 mg IVPUSH Q2D@1000 [facility] Last Admin: 09/30/17 10:32 Dose: 0.125 mg Diltiazem HCl (Cardizem -) 90 mg NGT Q6HPO [facility] Last Admin: 09/30/17 12:17 Dose: 90 mg Hydralazine HCl (Apresoline Injection -) 10 mg IVPUSH Q6H PRN PRN Reason: HYPERTENSION Last Admin: 09/25/17 09:36 Dose: 10 mg HEPARIN SOD,PORK IN 0.45% NACL (Heparin-1/2ns 25,000 Units/500) 25,000 units in 500 mls @ 20 mls/hr IVPB TITR [facility]; 1,000 UNITS/HR PRN Reason: Protocol Last Admin: 09/29/17 09:01 Dose: 650 units/hr, 13 mls/hr Propofol (Diprivan -) 1,000,000 mcg in 100 mls @ 2.484 mls/hr IVPB TITR [facility]; 5 MCG/KG/MIN PRN Reason: Protocol Last Admin: 09/30/17 09:02 Dose: 40 mcg/kg/min, 19.872 mls/hr Piperacillin Sod/Tazobactam (Sod 3.375 gm/ Dextrose) 100 mls @ 100 mls/hr IVPB Q8H-IV [facility] Insulin Aspart (Novolog Vial Sliding Scale -) 1 vial SQ Q6H [facility] PRN Reason: Protocol Last Admin: 09/30/17 06:04 Dose: Not Given Insulin Detemir (Levemir Vial) 10 units SQ HS [facility] Last Admin: 09/29/17 21:51 Dose: 10 units Metoprolol Tartrate (Lopressor Injection -) 5 mg IVPUSH Q4H PRN PRN Reason: HYPERTENSION Last Admin: 09/28/17 09:20 Dose: 5 mg Metoprolol Tartrate (Lopressor -) 25 mg PO BID [facility] Last Admin: 09/30/17 12:17 Dose: 25 mg Ondansetron HCl (Zofran Injection) 4 mg IVPUSH Q6H PRN PRN Reason: NAUSEA Pantoprazole Sodium (Protonix Iv) 40 mg IVPUSH DAILY [facility] Last Admin: 09/30/17 09:10 Dose: 40 mg Trazodone HCl (Desyrel -) 50 mg PO [facility] Last Admin: 09/29/17 21:33 Dose: 50 mg Gen: Intubated, sedated Heart: RRR Lung: scattered rhonchi Abd: soft, nontender Ext: + edema Laboratory Results - last 24 hr 09/29/17 09/29/17 09/30/17 15:35 21:48 05:08 WBC 7.7 D RBC 2.69 L Hgb 7.4 L Hct 22.7 L MCV 84.3 MCH 27.3 MCHC 32.4 RDW 16.5 H Plt Count 98 L MPV 8.8 Neutrophils % 82.9 H Lymphocytes % 10.7 D Monocytes % 2.2 L Eosinophils % 3.7 D Basophils % 0.5 D PTT (Actin FS) 59.0 H D Puncture Site ABG pH ABG pCO2 at Pt Temp ABG pO2 at Pt Temp ABG HCO3 ABG O2 Sat (Measured) ABG O2 Content ABG Base Excess Addy Test O2 Delivery Device Oxygen Flow Rate Vent Rate PEEP Sodium Potassium Chloride Carbon Dioxide Anion Gap BUN Creatinine Creat Clearance w eGFR POC Glucometer 238.15055 Random Glucose Calcium Phosphorus Magnesium Ferritin Total Bilirubin AST ALT Alkaline Phosphatase Total Protein Albumin Serum Folate 09/30/17 09/30/17 09/30/17 05:08 05:08 05:15 WBC RBC Hgb Hct MCV MCH MCHC RDW Plt Count MPV Neutrophils % Lymphocytes % Monocytes % Eosinophils % Basophils % PTT (Actin FS) 51.6 H Puncture Site ABG pH ABG pCO2 at Pt Temp ABG pO2 at Pt Temp ABG HCO3 ABG O2 Sat (Measured) ABG O2 Content ABG Base Excess Addy Test O2 Delivery Device Oxygen Flow Rate Vent Rate PEEP Sodium 148 H Potassium 3.4 L Chloride 113 H Carbon Dioxide 27 Anion Gap 8 BUN 46 H Creatinine 1.8 H Creat Clearance w eGFR 28.70 POC Glucometer 169.35270 Random Glucose 158 H Calcium 7.3 L Phosphorus 2.8 Magnesium 2.1 Ferritin 133.970 Total Bilirubin 0.3 AST 18 ALT 34 Alkaline Phosphatase 71 Total Protein 3.9 L Albumin 1.2 L Serum Folate 9 09/30/17 06:00 WBC RBC Hgb Hct MCV MCH MCHC RDW Plt Count MPV Neutrophils % Lymphocytes % Monocytes % Eosinophils % Basophils % PTT (Actin FS) Puncture Site Right radial ABG pH 7.44 ABG pCO2 at Pt Temp 38.3 ABG pO2 at Pt Temp 81.7 D ABG HCO3 25.5 ABG O2 Sat (Measured) 97.0 ABG O2 Content 10.5 L ABG Base Excess 1.8 Addy Test Positive O2 Delivery Device Ventilator Oxygen Flow Rate 35% Vent Rate 12 PEEP 5.0 Sodium Potassium Chloride Carbon Dioxide Anion Gap BUN Creatinine Creat Clearance w eGFR POC Glucometer Random Glucose Calcium Phosphorus Magnesium Ferritin Total Bilirubin AST ALT Alkaline Phosphatase Total Protein Albumin Serum Folate ASSESSMENT AND PLAN: Multiple Acute Embolic CVA Acute Hypoxic Respiratory Failure r/o Aspiration Pneumonia Atrial Fibrillation with RVR Metastatic Colon Ca to Lung Acute on Chronic Renal Failure Hyperkalemia HTN DM Hypercholesterolemia - Will be scheduled for Trach and PEB - NGT feeds - continue antibiotics per ID - rate control - continue anticoagulation - monitor urine output, creatinine - Lasix as needed - DVT/GI prophylaxis - continue ICU monitoring Dr Kaplan Critical care time spent in reviewing chart, evaluating patient and formulating plan 36 min
--- NOTE | 2017-09-30 12:57 | PN ---
Progress Note, Physician History of Present Illness: Chart reviewed. Chart reviewed. Events noted. The patient was reintubeaed yesrday. Metastatic to the lungs and brain colon cancer. Sedated. OG. Tracheostomy planned for today. - Current Medication List Current Medications: Active Medications Artificial Tears (Artificial Tears Ointment -) 1 applic OU BID [facility] Last Admin: 09/30/17 09:14 Dose: 1 applic Atorvastatin Calcium (Lipitor -) 20 mg PO HS [facility] Last Admin: 09/29/17 21:30 Dose: 20 mg Chlorhexidine Gluconate (Hibiclens For Decolonization -) 1 applic TP HS [facility] Last Admin: 09/29/17 21:31 Dose: 1 applic Ciprofloxacin (Ciloxan 0.3% Eye Drops --) 2 drop OS Q2H [facility] Last Admin: 09/30/17 10:32 Dose: 2 drop Digoxin (Lanoxin Injection -) 0.125 mg IVPUSH Q2D@1000 [facility] Last Admin: 09/30/17 10:32 Dose: 0.125 mg Diltiazem HCl (Cardizem -) 90 mg NGT Q6HPO [facility] Last Admin: 09/30/17 12:17 Dose: 90 mg Hydralazine HCl (Apresoline Injection -) 10 mg IVPUSH Q6H PRN PRN Reason: HYPERTENSION Last Admin: 09/25/17 09:36 Dose: 10 mg HEPARIN SOD,PORK IN 0.45% NACL (Heparin-1/2ns 25,000 Units/500) 25,000 units in 500 mls @ 20 mls/hr IVPB TITR [facility]; 1,000 UNITS/HR PRN Reason: Protocol Last Admin: 09/29/17 09:01 Dose: 650 units/hr, 13 mls/hr Propofol (Diprivan -) 1,000,000 mcg in 100 mls @ 2.484 mls/hr IVPB TITR [facility]; 5 MCG/KG/MIN PRN Reason: Protocol Last Admin: 09/30/17 09:02 Dose: 40 mcg/kg/min, 19.872 mls/hr Piperacillin Sod/Tazobactam (Sod 3.375 gm/ Dextrose) 100 mls @ 100 mls/hr IVPB Q8H-IV [facility] Insulin Aspart (Novolog Vial Sliding Scale -) 1 vial SQ Q6H [facility] PRN Reason: Protocol Last Admin: 09/30/17 06:04 Dose: Not Given Insulin Detemir (Levemir Vial) 10 units SQ [facility] Last Admin: 09/29/17 21:51 Dose: 10 units Metoprolol Tartrate (Lopressor Injection -) 5 mg IVPUSH Q4H PRN PRN Reason: HYPERTENSION Last Admin: 09/28/17 09:20 Dose: 5 mg Metoprolol Tartrate (Lopressor -) 25 mg PO BID [facility] Last Admin: 09/30/17 12:17 Dose: 25 mg Ondansetron HCl (Zofran Injection) 4 mg IVPUSH Q6H PRN PRN Reason: NAUSEA Pantoprazole Sodium (Protonix Iv) 40 mg IVPUSH DAILY [facility] Last Admin: 09/30/17 09:10 Dose: 40 mg Trazodone HCl (Desyrel -) 50 mg PO [facility] Last Admin: 09/29/17 21:33 Dose: 50 mg - Objective Vital Signs: Vital Signs Temperature 98.2 F 09/30/17 10:00 Pulse Rate 67 09/30/17 12:00 Respiratory Rate 16 09/30/17 12:17 Blood Pressure 132/62 09/30/17 12:00 O2 Sat by Pulse Oximetry (%) 98 09/30/17 10:00 Labs: CBC, BMP 09/30/17 05:08 09/30/17 05:08 INR, PTT INR 0.96 (0.82-1.09) 09/17/17 06:25 Abnormal Lab Results 09/29/17 09/30/17 09/30/17 15:35 05:08 05:08 RBC 2.69 L Hgb 7.4 L Hct 22.7 L RDW 16.5 H Plt Count 98 L Neutrophils % 82.9 H Monocytes % 2.2 L PTT (Actin FS) 59.0 H D ABG O2 Content Sodium 148 H Potassium 3.4 L Chloride 113 H BUN 46 H Creatinine 1.8 H Random Glucose 158 H Calcium 7.3 L Total Protein 3.9 L Albumin 1.2 L 09/30/17 09/30/17 05:08 06:00 RBC Hgb Hct RDW Plt Count Neutrophils % Monocytes % PTT (Actin FS) 51.6 H ABG O2 Content 10.5 L Sodium Potassium Chloride BUN Creatinine Random Glucose Calcium Total Protein Albumin Problem List - Problems (1) Brain metastasis Code(s): C79.31 - SECONDARY MALIGNANT NEOPLASM OF BRAIN (2) CVA (cerebral vascular accident) Code(s): I63.9 - CEREBRAL INFARCTION, UNSPECIFIED (3) Metastatic colorectal cancer Code(s): C78.5 - SECONDARY MALIGNANT NEOPLASM OF LARGE INTESTINE AND RECTUM (4) Respiratory failure Code(s): J96.90 - RESPIRATORY FAILURE, UNSP, UNSP W HYPOXIA OR HYPERCAPNIA Assessment/Plan A 62 yof with a terminal disease. The PEG in this patient will not improve survival, or quality of life. Recommend to continue OG feeding. Obtain Paliative/end-of-life consult.
[2017-09-30] MEDS: MUPIROCIN 2% TOPICAL OINTMENT FOR DECOLONIZATION NS SCH ×2 (12:58→21:44)
[2017-09-30] MEDS: POTASSIUM CHLORIDE 10 MEQ in SODIUM CHLORIDE 100 ML IVPB SCH ×2 (13:29→15:05)
--- NOTE | 2017-09-30 13:57 | PN ---
Progress Note, Physician History of Present Illness: Pt seen and examined at bedside. She remains intubated. Daughter is at bedside and care was discussed with her. - Current Medication List Current Medications: Active Medications Artificial Tears (Artificial Tears Ointment -) 1 applic OU BID [facility] Last Admin: 09/30/17 09:14 Dose: 1 applic Atorvastatin Calcium (Lipitor -) 20 mg PO HS [facility] Last Admin: 09/29/17 21:30 Dose: 20 mg Chlorhexidine Gluconate (Hibiclens For Decolonization -) 1 applic TP HS [facility] Last Admin: 09/29/17 21:31 Dose: 1 applic Ciprofloxacin (Ciloxan 0.3% Eye Drops --) 2 drop OS Q2H [facility] Last Admin: 09/30/17 12:55 Dose: 2 drop Digoxin (Lanoxin Injection -) 0.125 mg IVPUSH Q2D@1000 [facility] Last Admin: 09/30/17 10:32 Dose: 0.125 mg Diltiazem HCl (Cardizem -) 90 mg NGT Q6HPO [facility] Last Admin: 09/30/17 12:17 Dose: 90 mg Hydralazine HCl (Apresoline Injection -) 10 mg IVPUSH Q6H PRN PRN Reason: HYPERTENSION Last Admin: 09/25/17 09:36 Dose: 10 mg HEPARIN SOD,PORK IN 0.45% NACL (Heparin-1/2ns 25,000 Units/500) 25,000 units in 500 mls @ 20 mls/hr IVPB TITR [facility]; 1,000 UNITS/HR PRN Reason: Protocol Last Admin: 09/29/17 09:01 Dose: 650 units/hr, 13 mls/hr Propofol (Diprivan -) 1,000,000 mcg in 100 mls @ 2.484 mls/hr IVPB TITR [facility]; 5 MCG/KG/MIN PRN Reason: Protocol Last Admin: 09/30/17 09:02 Dose: 40 mcg/kg/min, 19.872 mls/hr Piperacillin Sod/Tazobactam (Sod 3.375 gm/ Dextrose) 100 mls @ 100 mls/hr IVPB Q8H-IV [facility] Insulin Aspart (Novolog Vial Sliding Scale -) 1 vial SQ Q6H [facility] PRN Reason: Protocol Last Admin: 09/30/17 12:55 Dose: 2 units Insulin Detemir (Levemir Vial) 10 units SQ [facility] Last Admin: 09/29/17 21:51 Dose: 10 units Metoprolol Tartrate (Lopressor Injection -) 5 mg IVPUSH Q4H PRN PRN Reason: HYPERTENSION Last Admin: 09/28/17 09:20 Dose: 5 mg Metoprolol Tartrate (Lopressor -) 25 mg PO BID [facility] Last Admin: 09/30/17 12:17 Dose: 25 mg Mupirocin (Bactroban Ointment (For Decolonization) -) 1 applic NS BID [facility] Stop: 10/05/17 12:59 Last Admin: 09/30/17 12:58 Dose: 1 applic Ondansetron HCl (Zofran Injection) 4 mg IVPUSH Q6H PRN PRN Reason: NAUSEA Pantoprazole Sodium (Protonix Iv) 40 mg IVPUSH DAILY [facility] Last Admin: 09/30/17 09:10 Dose: 40 mg Trazodone HCl (Desyrel -) 50 mg PO [facility] Last Admin: 09/29/17 21:33 Dose: 50 mg - Objective Vital Signs: Vital Signs Temperature 98.2 F 09/30/17 10:00 Pulse Rate 67 09/30/17 12:00 Respiratory Rate 16 09/30/17 12:17 Blood Pressure 132/62 09/30/17 12:00 O2 Sat by Pulse Oximetry (%) 98 09/30/17 10:00 Constitutional: Yes: Calm Eyes: Yes: Conjunctiva Clear Cardiovascular: Yes: S1, S2 Respiratory: Yes: Mechanically Ventilated Gastrointestinal: Yes: Soft Genitourinary: Yes: Mcdonald Present Musculoskeletal: Yes: Muscle Weakness Edema: No Neurological: Yes: Lethargy Labs: CBC, BMP 09/30/17 05:08 09/30/17 05:08 INR, PTT INR 0.96 (0.82-1.09) 09/17/17 06:25 - ....Imaging Chest X-ray: Report Reviewed Problem List - Problems (1) Brain metastasis Code(s): C79.31 - SECONDARY MALIGNANT NEOPLASM OF BRAIN (2) Headache Code(s): R51 - HEADACHE Qualifiers: Headache chronicity pattern: unspecified pattern Intractability: intractable (3) Metastatic colorectal cancer Code(s): C78.5 - SECONDARY MALIGNANT NEOPLASM OF LARGE INTESTINE AND RECTUM (4) SUSAN (acute kidney injury) Code(s): N17.9 - ACUTE KIDNEY FAILURE, UNSPECIFIED (5) Atrial fibrillation Code(s): I48.91 - UNSPECIFIED ATRIAL FIBRILLATION (6) Cancer, colon Code(s): C18.9 - MALIGNANT NEOPLASM OF COLON, UNSPECIFIED Qualifiers: Colon location: unspecified part of colon Qualified Code(s): C18.9 - Malignant neoplasm of colon, unspecified (7) Lung mass Code(s): R91.8 - OTHER NONSPECIFIC ABNORMAL FINDING OF LUNG FIELD Assessment/Plan Current Medications Generic Name Dose Route Start Last Admin Trade Name Freq PRN Reason Stop Dose Admin Artificial Tears 1 applic 09/15/17 22:00 09/30/17 09:14 Artificial Tears Ointment - OU 1 applic BID [facility] Administration Atorvastatin Calcium 20 mg 09/11/17 22:00 09/29/17 21:30 Lipitor - PO 20 mg HS [facility] Administration Chlorhexidine Gluconate 1 applic 09/15/17 22:00 09/29/17 21:31 Hibiclens For Decolonization - TP 1 applic HS [facility] Administration Ciprofloxacin 2 drop 09/16/17 14:45 09/30/17 12:55 Ciloxan 0.3% Eye Drops -- OS 2 drop Q2H [facility] Administration Digoxin 0.125 mg 09/24/17 10:00 09/30/17 10:32 Lanoxin Injection - IVPUSH 0.125 mg Q2D@1000 [facility] Administration Diltiazem HCl 90 mg 09/25/17 12:45 09/30/17 12:17 Cardizem - NGT 90 mg Q6HPO [facility] Administration Hydralazine HCl 10 mg 09/11/17 10:25 09/25/17 09:36 Apresoline Injection - IVPUSH 10 mg Q6H PRN Administration HYPERTENSION HEPARIN SOD,PORK IN 0.45% NACL 25,000 units in 500 mls @ 20 mls/hr 09/12/17 20 :00 09/29/17 09:01 Heparin-1/2ns 25,000 Units/500 IVPB 650 units/hr TITR [facility] 13 mls/hr Protocol Administration 1,000 UNITS/HR Propofol 1,000,000 mcg in 100 mls @ 2.484 mls/hr 09/28/17 17:45 09/30/17 09: 02 Diprivan - IVPB 40 mcg/kg/min TITR [facility] 19.872 mls/hr Protocol Administration 5 MCG/KG/MIN Piperacillin Sod/Tazobactam 100 mls @ 100 mls/hr 09/30/17 10:26 Sod 3.375 gm/ Dextrose IVPB Q8H-IV [facility] Insulin Aspart 1 vial 09/27/17 00:00 09/30/17 12:55 Novolog Vial Sliding Scale - SQ 2 units Q6H [facility] Administration Protocol Insulin Detemir 10 units 09/26/17 22:00 09/29/17 21:51 Levemir Vial SQ 10 units HS [facility] Administration Metoprolol Tartrate 5 mg 09/11/17 10:25 09/28/17 09:20 Lopressor Injection - IVPUSH 5 mg Q4H PRN Administration HYPERTENSION Metoprolol Tartrate 25 mg 09/25/17 12:30 09/30/17 12:17 Lopressor - PO 25 mg BID [facility] Administration Mupirocin 1 applic 09/30/17 13:00 09/30/17 12:58 Bactroban Ointment (For Decolonization) - NS 10/05/17 12:59 1 applic BID [facility] Administration Ondansetron HCl 4 mg 09/11/17 02:02 Zofran Injection IVPUSH Q6H PRN NAUSEA Pantoprazole Sodium 40 mg 09/23/17 14:15 09/30/17 09:10 Protonix Iv IVPUSH 40 mg DAILY [facility] Administration Trazodone HCl 50 mg 09/20/17 22:00 09/29/17 21:33 Desyrel - PO 50 mg HS [facility] Administration Impression 1. CKD 2. SUSAN 3. DM 4. htn 5. chol 6. chemo port malfunction 7. a-fib 8. lung mass 9. proteinuria 10. adenocarcinoma 11. CVA 12. acute resp failure 13. hyperkalemia 14. hypernatremia Plan - cont with feeds - cont free water - replace potassium - check mag - discussed with ICU team - monitor renal function - discussed with daughter - cont ICU care - will follow Dr Llanos
[2017-09-30] MEDS: PIPERACILLIN/TAZOB 3.375 GM 3.375 GM in DEXTROSE 5%-WATER - 100 ML IVPB SCH (17:32)
--- NOTE | 2017-09-30 18:48 | CON.ENT ---
Consult Consult Specialty:: ENT Referred by:: Dr. Kaplan Reason for Consultation:: evaluation for tracheotomy - History of Present Illness Chief Complaint: prolonged intubation, failed extubation, evaluation for tracheotomy History of Present Illness: 62 yo F with hx metastatic colorectal cancer, CVA, respiratory failure admitted 09-10-2017, intubated, has attempted extubations but failed, intubated 3x total. presentlly has OETT tube and orogastric tube in place - History Source History Provided By: Medical Record Limitations to Obtaining History: Intubated - Past Medical History Cardio/Vascular: Yes: AFIB, HTN, Hyperlipdemia Gastrointestinal: Yes: Cancer (COLON), GERD Psych: Yes: Anxiety Endocrine: Yes: Diabetes Mellitus (ON INSULIN PUMP) - Past Surgical History Past Surgical History: Yes: Colectomy (2 YRS AGO COLON CA), Hernia Repair ( icisional) - Alcohol/Substance Use Hx Alcohol Use: No - Smoking History Smoking history: Former smoker Have you smoked in the past 12 months: Yes Aproximately how many cigarettes per day: 0 - Social History Usual Living Arrangement: With Spouse ADL: Independent History of Recent Travel: No Home Medications - Allergies Allergies/Adverse Reactions: Allergies Allergy/AdvReac Type Severity Reaction Status Date / Time No Known Drug Allergies Allergy Verified 09/09/17 23:57 Medical Tape Allergy Uncoded 09/09/17 23:56 - Home Medications Home Medications: Ambulatory Orders Atorvastatin Ca [Lipitor] 20 mg PO HS #0 tablet 01/14/14 Insulin Pump Controller [Snap Insulin Pump Controller] 0 units SQ ASDIR Gabapentin 300 mg PO BID #60 capsule 08/23/14 Apixaban [Eliquis -] 5 mg PO BID #60 tablet 06/24/17 Diltiazem Cd [Cardizem Cd -] 120 mg PO DAILY #30 cap.cd.24h 06/24/17 Ramipril [Altace] 5 mg PO DAILY #30 tab 06/24/17 Metoprolol Succinate 50 mg PO DAILY 08/14/17 Oxycodone HCl/Acetaminophen [Percocet 5/325 -] 1 - 2 tab PO Q4H PRN #20 tablet MDD 6 08/18/17 Physical Exam-ENT Vital Signs: Vital Signs Temperature 98.4 F 09/30/17 16:00 Pulse Rate 65 09/30/17 16:00 Respiratory Rate 13 09/30/17 18:41 Blood Pressure 154/65 09/30/17 16:00 O2 Sat by Pulse Oximetry (%) 98 09/30/17 10:00 Head: Yes: WNL Face: Yes: Other (sl edema, left periorbital ecchymosis) Eyes: Yes: Other (closed, no spontaneous opening) Nose: Yes: WNL Nasal Passage: Yes: WNL Oral/Pharynx: Yes: Other (oroendotracheal tube and orogastric tube in place and secure) Outer Ear: Yes: WNL Neck: Yes: Other (flexed, no obvioius mass, laryngeal landmarks satisfactory) Respiratory: Yes: Mechanically Ventilated Neurological: Yes: Unresponsive Imaging - Results Chest X-ray: Report Reviewed, Image Reviewed Cat Scan: Report Reviewed, Image Reviewed (bilateral nonhemorrhagic CVA) Problem List - Problems (1) Respiratory failure Assessment/Plan: pt has had prolonged intubation, failed extubatoin twice, not expected to be able to wean or extubate in the near future pt is candidate for tracheotomy discussed in detail with Dr. Kaplan is on heparin drip, which will be held preop Scheduled for OR Friday10-01-17 AM discussed with patient's daughter, Rosario Loza indications alternatives, nature risks and benefits of surgery discussed potential complications including but not limited to anesthesia, bleeding, infection and pneumothorax discussed daughter understands and accepts risks questions answered Thank you for consultation, Ben Rainey MD FACS Code(s): J96.90 - RESPIRATORY FAILURE, UNSP, UNSP W HYPOXIA OR HYPERCAPNIA
[2017-09-30] MEDS: ATORVASTATIN CA 20 MG TABLET (FP) PO SCH (21:44)
[2017-09-30] MEDS: INSULIN DETEMIR 100 UNITS/ML MDV SQ SCH (21:45)
[2017-09-30] MEDS: CHLORHEXIDINE GLUCONATE 4% CLEANSER FOR DECOLONIZATION TP SCH (21:45)
[2017-09-30] MEDS: traZODone HCL 50 MG TABLET (FP) PO SCH (21:45)
[2017-10-01] MEDS: CIPROFLOXACIN 0.3% EYE DROPS 5 ML BOTTLE OS SCH ×10 (00:51→23:00)
[2017-10-01] MEDS ORDERED: HEMOQUE CONTROL SOLUTION ONE (01:39)
[2017-10-01] MEDS: PIPERACILLIN/TAZOB 3.375 GM 3.375 GM in DEXTROSE 5%-WATER - 100 ML IVPB SCH (01:50)
[2017-10-01 06:10] LABS: SERUM IRON SATURATION 28 % (15-55); TOTAL IRON BINDING CAPACITY 137 ug/dL (250-450); UIBC 98 ug/dL (131-425)
[2017-10-01] MEDS: dilTIAZem HCL 30 MG TABLET (FP) NGT SCH ×4 (06:19→21:03)
[2017-10-01 06:39] LABS: ARTERIAL BLOOD GAS BASE EXCESS -0.4 meq/l (-2-2); ARTERIAL BLOOD GAS PCO2 33.5 mmHg (35-45); ARTERIAL BLOOD GAS pH 7.45 (7.35-7.45)
--- NOTE | 2017-10-01 06:50 | PN ---
Progress Note, Physician Chief Complaint: ID Overall no change and remains intubated Day 8 Zosyn - Current Medication List Current Medications: Active Medications Artificial Tears (Artificial Tears Ointment -) 1 applic OU BID [facility] Last Admin: 09/30/17 21:46 Dose: 1 applic Atorvastatin Calcium (Lipitor -) 20 mg PO HS [facility] Last Admin: 09/30/17 21:44 Dose: 20 mg Chlorhexidine Gluconate (Hibiclens For Decolonization -) 1 applic TP HS [facility] Last Admin: 09/30/17 21:45 Dose: 1 applic Ciprofloxacin (Ciloxan 0.3% Eye Drops --) 2 drop OS Q2H [facility] Last Admin: 10/01/17 00:51 Dose: 2 drop Digoxin (Lanoxin Injection -) 0.125 mg IVPUSH Q2D@1000 [facility] Last Admin: 09/30/17 10:32 Dose: 0.125 mg Diltiazem HCl (Cardizem -) 90 mg NGT Q6HPO [facility] Last Admin: 10/01/17 06:19 Dose: Not Given Hydralazine HCl (Apresoline Injection -) 10 mg IVPUSH Q6H PRN PRN Reason: HYPERTENSION Last Admin: 09/25/17 09:36 Dose: 10 mg HEPARIN SOD,PORK IN 0.45% NACL (Heparin-1/2ns 25,000 Units/500) 25,000 units in 500 mls @ 20 mls/hr IVPB TITR [facility]; 1,000 UNITS/HR PRN Reason: Protocol Last Admin: 09/29/17 09:01 Dose: 650 units/hr, 13 mls/hr Propofol (Diprivan -) 1,000,000 mcg in 100 mls @ 2.484 mls/hr IVPB TITR [facility]; 5 MCG/KG/MIN PRN Reason: Protocol Last Admin: 09/30/17 18:53 Dose: Not Given Piperacillin Sod/Tazobactam (Sod 3.375 gm/ Dextrose) 100 mls @ 100 mls/hr IVPB Q8H-IV [facility] Last Admin: 10/01/17 01:50 Dose: 100 mls/hr Insulin Aspart (Novolog Vial Sliding Scale -) 1 vial SQ Q6H [facility] PRN Reason: Protocol Last Admin: 10/01/17 00:00 Dose: 10 units Insulin Detemir (Levemir Vial) 10 units SQ [facility] Last Admin: 09/30/17 21:45 Dose: 10 units Metoprolol Tartrate (Lopressor Injection -) 5 mg IVPUSH Q4H PRN PRN Reason: HYPERTENSION Last Admin: 09/28/17 09:20 Dose: 5 mg Metoprolol Tartrate (Lopressor -) 25 mg PO BID [facility] Last Admin: 09/30/17 21:44 Dose: 25 mg Mupirocin (Bactroban Ointment (For Decolonization) -) 1 applic NS BID [facility] Stop: 10/05/17 12:59 Last Admin: 09/30/17 21:44 Dose: 1 applic Ondansetron HCl (Zofran Injection) 4 mg IVPUSH Q6H PRN PRN Reason: NAUSEA Pantoprazole Sodium (Protonix Iv) 40 mg IVPUSH DAILY [facility] Last Admin: 09/30/17 09:10 Dose: 40 mg Trazodone HCl (Desyrel -) 50 mg PO [facility] Last Admin: 09/30/17 21:45 Dose: 50 mg - Objective Vital Signs: Vital Signs Temperature 98.4 F 09/30/17 22:00 Pulse Rate 75 10/01/17 02:00 Respiratory Rate 16 10/01/17 03:30 Blood Pressure 136/54 10/01/17 02:00 O2 Sat by Pulse Oximetry (%) 98 09/30/17 23:18 Constitutional: Yes: Other (Intubated) Cardiovascular: Yes: S1, S2 Respiratory: Yes: WNL, Regular, CTA Bilaterally, Diminished Gastrointestinal: Yes: Soft. No: Tenderness Edema: No Labs: INR, PTT INR 0.96 (0.82-1.09) 09/17/17 06:25 Problem List - Problems (1) Pneumonia Code(s): J18.9 - PNEUMONIA, UNSPECIFIED ORGANISM (2) Brain metastasis Code(s): C79.31 - SECONDARY MALIGNANT NEOPLASM OF BRAIN (3) CVA (cerebral vascular accident) Code(s): I63.9 - CEREBRAL INFARCTION, UNSPECIFIED (4) Metastatic colorectal cancer Code(s): C78.5 - SECONDARY MALIGNANT NEOPLASM OF LARGE INTESTINE AND RECTUM (5) Respiratory failure Code(s): J96.90 - RESPIRATORY FAILURE, UNSP, UNSP W HYPOXIA OR HYPERCAPNIA Assessment/Plan Microbiology 09/23/17 17:00 Sputum - Endotrachea Suction/Ventilator Gram Stain - Final 09/23/17 17:00 Sputum - Endotrachea Suction/Ventilator Sputum Culture - Final NORMAL RESPIRATORY ADRIAN 09/23/17 17:00 Blood - Peripheral Venous Blood Culture - Final NO GROWTH AFTER 5 DAYS INCUBATION 09/23/17 17:00 Blood - Peripheral Venous Blood Culture - Final NO GROWTH AFTER 5 DAYS INCUBATION Laboratory Tests 09/30/17 10/01/17 05:08 06:35 WBC 7.7 D Pending Hgb 7.4 L Pending Hct 22.7 L Pending Plt Count 98 L Assessment Metastatic Colon cancer Respiratory failure Now post treatment for PNA DM Plan STOP ANTIBIOTIC TODAY Sergo HIGUERA
[2017-10-01] MEDS: INSULIN SLIDING SCALE (NOVOLOG) 1 VIAL SQ SCH ×4 (07:05→19:33)
[2017-10-01 07:27] LABS: ALBUMIN 1.3 g/dl (3.4-5.0); ANION GAP 10 (8-16); BILIRUBIN,TOTAL 0.2 mg/dL (0.2-1.0); BLOOD UREA NITROGEN 42 mg/dL (7-18); CALCIUM 7.3 mg/dL (8.5-10.1); CHLORIDE 110 mmol/L (98-107); CO2 25 mmol/L (21-32); CREATININE 1.9 mg/dL (0.55-1.02); PHOSPHOROUS 3.2 mg/dL (2.5-4.9); POTASSIUM 3.9 mmol/L (3.5-5.1); SGOT/AST 16 U/L (15-37); SGPT/ALT 33 U/L (12-78); SODIUM 145 mmol/L (136-145); TOT PROT 4.4 g/dl (6.4-8.2)
[2017-10-01 07:28] LABS: ALLENS TEST POSITIVE
[2017-10-01 07:28] LABS: ALK PHOS 77 U/L (45-117)
[2017-10-01 08:00] LABS: BASO % 0.5 % (0-2.0); EOS % 1.4 % (0-4.5); HEMATOCRIT 24.4 % (32.4-45.2); HEMOGLOBIN 7.9 GM/dL (10.7-15.3); LYMPH % 10.3 % (8-40); MCH 27.4 pg (25.7-33.7); MCHC 32.5 g/dl (32.0-36.0); MEAN CELL VOLUME 84.2 fl (80-96); MEAN PLT VOLUME 8.4 fl (7.5-11.1); MONO % 2.7 % (3.8-10.2); NEUT % 85.1 % (42.8-82.8); PLATELET COUNT 105 K/MM3 (134-434); RDW 16.7 % (11.6-15.6); WHITE BLOOD COUNT 7.2 K/mm3 (4.0-10.0)
[2017-10-01 08:15] LABS: GLUCOSE,RANDOM 300 mg/dL (74-106)
[2017-10-01] MEDS: PROPOFOL 1,000,000 MCG/100 ML VIAL IVPB SCH ×3 (08:51→21:08)
[2017-10-01] MEDS: METOPROLOL TARTRATE 25 MG TABLET (FP) PO SCH ×3 (08:52→21:03)
[2017-10-01] MEDS: PANTOPRAZOLE SODIUM 40 MG VIAL IVPUSH SCH ×2 (08:52→13:48)
--- NOTE | 2017-10-01 09:44 | PN ---
Progress Note, Physician History of Present Illness: intubated and sedated - Current Medication List Current Medications: Active Medications Artificial Tears (Artificial Tears Ointment -) 1 applic OU BID [facility] Last Admin: 09/30/17 21:46 Dose: 1 applic Atorvastatin Calcium (Lipitor -) 20 mg PO [facility] Last Admin: 09/30/17 21:44 Dose: 20 mg Chlorhexidine Gluconate (Hibiclens For Decolonization -) 1 applic TP HS [facility] Last Admin: 09/30/17 21:45 Dose: 1 applic Ciprofloxacin (Ciloxan 0.3% Eye Drops --) 2 drop OS Q2H [facility] Last Admin: 10/01/17 07:05 Dose: 2 drop Digoxin (Lanoxin Injection -) 0.125 mg IVPUSH Q2D@1000 [facility] Last Admin: 09/30/17 10:32 Dose: 0.125 mg Diltiazem HCl (Cardizem -) 90 mg NGT Q6HPO [facility] Last Admin: 10/01/17 06:19 Dose: Not Given Hydralazine HCl (Apresoline Injection -) 10 mg IVPUSH Q6H PRN PRN Reason: HYPERTENSION Last Admin: 09/25/17 09:36 Dose: 10 mg HEPARIN SOD,PORK IN 0.45% NACL (Heparin-1/2ns 25,000 Units/500) 25,000 units in 500 mls @ 20 mls/hr IVPB TITR [facility]; 1,000 UNITS/HR PRN Reason: Protocol Last Titration: 10/01/17 03:00 Dose: 0 units/hr, 0 mls/hr Propofol (Diprivan -) 1,000,000 mcg in 100 mls @ 2.484 mls/hr IVPB TITR [facility]; 5 MCG/KG/MIN PRN Reason: Protocol Last Admin: 10/01/17 08:51 Dose: 30 mcg/kg/min, 14.904 mls/hr Insulin Aspart (Novolog Vial Sliding Scale -) 1 vial SQ Q6H [facility] PRN Reason: Protocol Last Admin: 10/01/17 07:05 Dose: 8 units Insulin Detemir (Levemir Vial) 10 units SQ [facility] Last Admin: 09/30/17 21:45 Dose: 10 units Metoprolol Tartrate (Lopressor Injection -) 5 mg IVPUSH Q4H PRN PRN Reason: HYPERTENSION Last Admin: 09/28/17 09:20 Dose: 5 mg Metoprolol Tartrate (Lopressor -) 25 mg PO BID [facility] Last Admin: 10/01/17 08:52 Dose: 25 mg Mupirocin (Bactroban Ointment (For Decolonization) -) 1 applic NS BID [facility] Stop: 10/05/17 12:59 Last Admin: 09/30/17 21:44 Dose: 1 applic Ondansetron HCl (Zofran Injection) 4 mg IVPUSH Q6H PRN PRN Reason: NAUSEA Pantoprazole Sodium (Protonix Iv) 40 mg IVPUSH DAILY [facility] Last Admin: 10/01/17 08:52 Dose: 40 mg Trazodone HCl (Desyrel -) 50 mg PO HS [facility] Last Admin: 09/30/17 21:45 Dose: 50 mg - Objective Vital Signs: Vital Signs Temperature 99.1 F 10/01/17 08:00 Pulse Rate 78 10/01/17 08:00 Respiratory Rate 16 10/01/17 08:00 Blood Pressure 141/62 10/01/17 08:00 O2 Sat by Pulse Oximetry (%) 100 10/01/17 09:00 Cardiovascular: Yes: S1, S2 Respiratory: Yes: Mechanically Ventilated Gastrointestinal: Yes: Normal Bowel Sounds, Soft Labs: CBC, BMP 10/01/17 06:35 10/01/17 06:35 INR, PTT INR 0.96 (0.82-1.09) 09/17/17 06:25 Problem List - Problems (1) Respiratory failure Code(s): J96.90 - RESPIRATORY FAILURE, UNSP, UNSP W HYPOXIA OR HYPERCAPNIA (2) Brain metastasis Code(s): C79.31 - SECONDARY MALIGNANT NEOPLASM OF BRAIN (3) CVA (cerebral vascular accident) Code(s): I63.9 - CEREBRAL INFARCTION, UNSPECIFIED (4) Metastatic colorectal cancer Code(s): C78.5 - SECONDARY MALIGNANT NEOPLASM OF LARGE INTESTINE AND RECTUM (5) Atrial fibrillation Code(s): I48.91 - UNSPECIFIED ATRIAL FIBRILLATION (6) Diabetes Code(s): E11.9 - TYPE 2 DIABETES MELLITUS WITHOUT COMPLICATIONS Qualifiers: Diabetes mellitus type: type 2 (7) Hypernatremia Code(s): E87.0 - HYPEROSMOLALITY AND HYPERNATREMIA Assessment/Plan (1) Pneumonia Assessment/Plan: iv zosyn Code(s): J18.9 - PNEUMONIA, UNSPECIFIED ORGANISM (2) Respiratory failure Assessment/Plan: intubated sedated trach Code(s): J96.90 - RESPIRATORY FAILURE, UNSP, UNSP W HYPOXIA OR HYPERCAPNIA (3) Atrial fibrillation Assessment/Plan: digoxin,cardizem and metoprolol Code(s): I48.91 - UNSPECIFIED ATRIAL FIBRILLATION (4) Anemia Assessment/Plan: TRANSFUSE ONE UNIT stool occult blood gi consult ppi iron panel GI follow up Code(s): D64.9 - ANEMIA, UNSPECIFIED (5) Diabetes Assessment/Plan: insulin bgm ok for now Code(s): E11.9 - TYPE 2 DIABETES MELLITUS WITHOUT COMPLICATIONS Qualifiers: Diabetes mellitus type: type 2 (6) CVA (cerebral vascular accident) Assessment/Plan: S/p multiple embolic infarcts intubated Code(s): I63.9 - CEREBRAL INFARCTION, UNSPECIFIED
[2017-10-01] MEDS: MINERAL OIL/PETROLATUM,WHITE 3.5 GM TUBE OU SCH ×2 (10:34→21:08)
[2017-10-01] MEDS: MUPIROCIN 2% TOPICAL OINTMENT FOR DECOLONIZATION NS SCH ×2 (10:48→21:05)
[2017-10-01] MEDS ORDERED: ENOXAPARIN NA (PORCINE) 80 MG/0.8 ML DISP.SYRIN SQ SCH ×2 (12:15→21:00)
--- NOTE | 2017-10-01 13:14 | PN ---
Progress Note, Physician History of Present Illness: Pt seen and examined at bedside. She remains intubated. - Current Medication List Current Medications: Active Medications Artificial Tears (Artificial Tears Ointment -) 1 applic OU BID [facility] Last Admin: 09/30/17 21:46 Dose: 1 applic Atorvastatin Calcium (Lipitor -) 20 mg PO HS [facility] Last Admin: 09/30/17 21:44 Dose: 20 mg Chlorhexidine Gluconate (Hibiclens For Decolonization -) 1 applic TP HS [facility] Last Admin: 09/30/17 21:45 Dose: 1 applic Ciprofloxacin (Ciloxan 0.3% Eye Drops --) 2 drop OS Q2H [facility] Last Admin: 10/01/17 07:05 Dose: 2 drop Digoxin (Lanoxin Injection -) 0.125 mg IVPUSH Q2D@1000 [facility] Last Admin: 09/30/17 10:32 Dose: 0.125 mg Diltiazem HCl (Cardizem -) 90 mg NGT Q6HPO [facility] Last Admin: 10/01/17 06:19 Dose: Not Given Enoxaparin Sodium (Lovenox -) 80 mg SQ ONCE [facility] Hydralazine HCl (Apresoline Injection -) 10 mg IVPUSH Q6H PRN PRN Reason: HYPERTENSION Last Admin: 09/25/17 09:36 Dose: 10 mg HEPARIN SOD,PORK IN 0.45% NACL (Heparin-1/2ns 25,000 Units/500) 25,000 units in 500 mls @ 20 mls/hr IVPB TITR [facility]; 1,000 UNITS/HR PRN Reason: Protocol Last Titration: 10/01/17 03:00 Dose: 0 units/hr, 0 mls/hr Propofol (Diprivan -) 1,000,000 mcg in 100 mls @ 2.484 mls/hr IVPB TITR [facility]; 5 MCG/KG/MIN PRN Reason: Protocol Last Admin: 10/01/17 08:51 Dose: 30 mcg/kg/min, 14.904 mls/hr Insulin Aspart (Novolog Vial Sliding Scale -) 1 vial SQ Q6H [facility] PRN Reason: Protocol Last Admin: 10/01/17 07:05 Dose: 8 units Insulin Detemir (Levemir Vial) 10 units SQ [facility] Last Admin: 09/30/17 21:45 Dose: 10 units Metoprolol Tartrate (Lopressor Injection -) 5 mg IVPUSH Q4H PRN PRN Reason: HYPERTENSION Last Admin: 09/28/17 09:20 Dose: 5 mg Metoprolol Tartrate (Lopressor -) 25 mg PO BID [facility] Last Admin: 10/01/17 08:52 Dose: 25 mg Mupirocin (Bactroban Ointment (For Decolonization) -) 1 applic NS BID [facility] Stop: 10/05/17 12:59 Last Admin: 09/30/17 21:44 Dose: 1 applic Ondansetron HCl (Zofran Injection) 4 mg IVPUSH Q6H PRN PRN Reason: NAUSEA Pantoprazole Sodium (Protonix Iv) 40 mg IVPUSH DAILY [facility] Last Admin: 10/01/17 08:52 Dose: 40 mg Trazodone HCl (Desyrel -) 50 mg PO HS [facility] Last Admin: 09/30/17 21:45 Dose: 50 mg - Objective Vital Signs: Vital Signs Temperature 99.6 F 10/01/17 10:00 Pulse Rate 71 10/01/17 10:00 Respiratory Rate 20 10/01/17 11:26 Blood Pressure 146/59 10/01/17 10:00 O2 Sat by Pulse Oximetry (%) 100 10/01/17 09:00 Constitutional: Yes: Calm Eyes: Yes: Conjunctiva Clear Cardiovascular: Yes: S1, S2 Respiratory: Yes: Mechanically Ventilated Gastrointestinal: Yes: Soft Genitourinary: Yes: Mcdonald Present Musculoskeletal: Yes: Muscle Weakness Edema: Yes Neurological: Yes: Lethargy Labs: CBC, BMP 10/01/17 06:35 10/01/17 06:35 INR, PTT INR 0.96 (0.82-1.09) 09/17/17 06:25 Problem List - Problems (1) Brain metastasis Code(s): C79.31 - SECONDARY MALIGNANT NEOPLASM OF BRAIN (2) Headache Code(s): R51 - HEADACHE Qualifiers: Headache chronicity pattern: unspecified pattern Intractability: intractable (3) Metastatic colorectal cancer Code(s): C78.5 - SECONDARY MALIGNANT NEOPLASM OF LARGE INTESTINE AND RECTUM (4) SUSAN (acute kidney injury) Code(s): N17.9 - ACUTE KIDNEY FAILURE, UNSPECIFIED (5) Atrial fibrillation Code(s): I48.91 - UNSPECIFIED ATRIAL FIBRILLATION (6) Cancer, colon Code(s): C18.9 - MALIGNANT NEOPLASM OF COLON, UNSPECIFIED Qualifiers: Colon location: unspecified part of colon Qualified Code(s): C18.9 - Malignant neoplasm of colon, unspecified (7) Lung mass Code(s): R91.8 - OTHER NONSPECIFIC ABNORMAL FINDING OF LUNG FIELD Assessment/Plan Current Medications Generic Name Dose Route Start Last Admin Trade Name Freq PRN Reason Stop Dose Admin Artificial Tears 1 applic 09/15/17 22:00 10/01/17 10:34 Artificial Tears Ointment - OU 1 applic BID [facility] Administration Atorvastatin Calcium 20 mg 09/11/17 22:00 09/30/17 21:44 Lipitor - PO 20 mg HS [facility] Administration Chlorhexidine Gluconate 1 applic 09/15/17 22:00 09/30/17 21:45 Hibiclens For Decolonization - TP 1 applic HS [facility] Administration Ciprofloxacin 2 drop 09/16/17 14:45 10/01/17 16:33 Ciloxan 0.3% Eye Drops -- OS Not Given Q2H [facility] Digoxin 0.125 mg 09/24/17 10:00 09/30/17 10:32 Lanoxin Injection - IVPUSH 0.125 mg Q2D@1000 [facility] Administration Diltiazem HCl 90 mg 09/25/17 12:45 10/01/17 06:19 Cardizem - NGT Not Given Q6HPO [facility] Enoxaparin Sodium 80 mg 10/01/17 12:15 Lovenox - SQ ONCE [facility] Hydralazine HCl 10 mg 09/11/17 10:25 09/25/17 09:36 Apresoline Injection - IVPUSH 10 mg Q6H PRN Administration HYPERTENSION HEPARIN SOD,PORK IN 0.45% NACL 25,000 units in 500 mls @ 20 mls/hr 09/12/17 20 :00 10/01/17 03:00 Heparin-1/2ns 25,000 Units/500 IVPB 0 units/hr TITR [facility] 0 mls/hr Protocol Titration 1,000 UNITS/HR Propofol 1,000,000 mcg in 100 mls @ 2.484 mls/hr 09/28/17 17:45 10/01/17 08: 51 Diprivan - IVPB 30 mcg/kg/min TITR [facility] 14.904 mls/hr Protocol Administration 5 MCG/KG/MIN Dextrose/Sodium Chloride 1,000 mls @ 42 mls/hr 10/01/17 13:30 10/01/17 13:47 D5-1/2ns - IV 42 mls/hr ASDIR [facility] Administration Insulin Aspart 1 vial 09/27/17 00:00 10/01/17 16:35 Novolog Vial Sliding Scale - SQ Not Given Q6H [facility] Protocol Insulin Detemir 10 units 09/26/17 22:00 09/30/17 21:45 Levemir Vial SQ 10 units HS [facility] Administration Metoprolol Tartrate 5 mg 09/11/17 10:25 09/28/17 09:20 Lopressor Injection - IVPUSH 5 mg Q4H PRN Administration HYPERTENSION Metoprolol Tartrate 25 mg 09/25/17 12:30 10/01/17 13:48 Lopressor - PO Not Given BID [facility] Mupirocin 1 applic 09/30/17 13:00 10/01/17 10:48 Bactroban Ointment (For Decolonization) - NS 10/05/17 12:59 1 applic BID [facility] Administration Ondansetron HCl 4 mg 09/11/17 02:02 Zofran Injection IVPUSH Q6H PRN NAUSEA Pantoprazole Sodium 40 mg 09/23/17 14:15 10/01/17 13:48 Protonix Iv IVPUSH Not Given DAILY [facility] Trazodone HCl 50 mg 09/20/17 22:00 09/30/17 21:45 Desyrel - PO 50 mg HS [facility] Administration Impression 1. CKD 2. SUSAN 3. DM 4. htn 5. chol 6. chemo port malfunction 7. a-fib 8. lung mass 9. proteinuria 10. adenocarcinoma 11. CVA 12. acute resp failure 13. hyperkalemia 14. hypernatremia Plan - pt is going for trache - monitor renal function - monitor sodium - discussed with ICU team - cont ICU care - will follow Dr Llanos
--- NOTE | 2017-10-01 13:32 | PN ---
Teaching Attending Note Name of Resident: Carson Lopez ATTENDING PHYSICIAN STATEMENT I saw and evaluated the patient. I reviewed the resident's note and discussed the case with the resident. I agree with the resident's findings and plan as documented. SUBJECTIVE: Pt seen and examined in the ICU. Remains intubated, sedated. Scheduled for tracheostomy. OBJECTIVE: Last Vital Signs Temp Pulse Resp BP Pulse Ox 99.6 F 71 20 146/59 100 10/01/17 10:00 10/01/17 10:00 10/01/17 11:26 10/01/17 10:00 10/01/17 09:00 Intake & Output 09/28/17 09/29/17 09/30/17 10/01/17 23:59 23:59 23:59 23:59 Intake Total 878 1663.4 1703 646 Output Total 850 1700 1350 200 Balance 28 -36.6 353 446 Weight 82.8 kg 84.2 kg 84.056 kg 83.943 kg Gen: intubated, sedated Heart: RRR Lung: decreased breath sounds at the bases Abd: soft, nontender Ext: + edema CBC, BMP 10/01/17 06:35 10/01/17 06:35 Active Medications Artificial Tears (Artificial Tears Ointment -) 1 applic OU BID [facility] Last Admin: 09/30/17 21:46 Dose: 1 applic Atorvastatin Calcium (Lipitor -) 20 mg PO [facility] Last Admin: 09/30/17 21:44 Dose: 20 mg Chlorhexidine Gluconate (Hibiclens For Decolonization -) 1 applic TP [facility] Last Admin: 09/30/17 21:45 Dose: 1 applic Ciprofloxacin (Ciloxan 0.3% Eye Drops --) 2 drop OS Q2H [facility] Last Admin: 10/01/17 07:05 Dose: 2 drop Digoxin (Lanoxin Injection -) 0.125 mg IVPUSH Q2D@1000 [facility] Last Admin: 09/30/17 10:32 Dose: 0.125 mg Diltiazem HCl (Cardizem -) 90 mg NGT Q6HPO [facility] Last Admin: 10/01/17 06:19 Dose: Not Given Enoxaparin Sodium (Lovenox -) 80 mg SQ ONCE [facility] Hydralazine HCl (Apresoline Injection -) 10 mg IVPUSH Q6H PRN PRN Reason: HYPERTENSION Last Admin: 09/25/17 09:36 Dose: 10 mg HEPARIN SOD,PORK IN 0.45% NACL (Heparin-1/2ns 25,000 Units/500) 25,000 units in 500 mls @ 20 mls/hr IVPB TITR [facility]; 1,000 UNITS/HR PRN Reason: Protocol Last Titration: 10/01/17 03:00 Dose: 0 units/hr, 0 mls/hr Propofol (Diprivan -) 1,000,000 mcg in 100 mls @ 2.484 mls/hr IVPB TITR [facility]; 5 MCG/KG/MIN PRN Reason: Protocol Last Admin: 10/01/17 08:51 Dose: 30 mcg/kg/min, 14.904 mls/hr Insulin Aspart (Novolog Vial Sliding Scale -) 1 vial SQ Q6H [facility] PRN Reason: Protocol Last Admin: 10/01/17 07:05 Dose: 8 units Insulin Detemir (Levemir Vial) 10 units SQ [facility] Last Admin: 09/30/17 21:45 Dose: 10 units Metoprolol Tartrate (Lopressor Injection -) 5 mg IVPUSH Q4H PRN PRN Reason: HYPERTENSION Last Admin: 09/28/17 09:20 Dose: 5 mg Metoprolol Tartrate (Lopressor -) 25 mg PO BID [facility] Last Admin: 10/01/17 08:52 Dose: 25 mg Mupirocin (Bactroban Ointment (For Decolonization) -) 1 applic NS BID [facility] Stop: 10/05/17 12:59 Last Admin: 09/30/17 21:44 Dose: 1 applic Ondansetron HCl (Zofran Injection) 4 mg IVPUSH Q6H PRN PRN Reason: NAUSEA Pantoprazole Sodium (Protonix Iv) 40 mg IVPUSH DAILY [facility] Last Admin: 10/01/17 08:52 Dose: 40 mg Trazodone HCl (Desyrel -) 50 mg PO [facility] Last Admin: 09/30/17 21:45 Dose: 50 mg ASSESSMENT AND PLAN: Multiple Acute Embolic CVA Acute Hypoxic Respiratory Failure r/o Aspiration Pneumonia Atrial Fibrillation with RVR Metastatic Colon Ca to Lung Acute on Chronic Renal Failure HTN DM Hypercholesterolemia - completed antibiotics - titrate rate control - resume anticoagulation post trach when ok with surgery - monitor urine output, creatinine - enteral feeds - for tracheostomy - DVT/GI prophylaxis - continue ICU monitoring critical care time spent in reviewing chart, evaluating patient and formulating plan 35 min
[2017-10-01] MEDS ORDERED: PROPOFOL 20 ML ONE (13:34)
[2017-10-01] MEDS ORDERED: LIDOCAINE HCL/PF 2% SDV 5ML VIAL ONE (13:34)
[2017-10-01] MEDS ORDERED: ROCURONIUM BROMIDE 50 MG/5 ML VIAL ONE (13:34)
[2017-10-01] MEDS ORDERED: LIDOCAINE 1%/EPI 1:100000 (20 ML MULTI DOSE VIAL) ONE (13:41)
[2017-10-01] MEDS: DEXTROSE 5%-0.45% SALINE 1,000 ML IV SCH (13:47)
[2017-10-01] MEDS ORDERED: LIDOCAINE 1%/EPI 1:100000 (50 ML MULTI DOSE VIAL) INF ONE (14:08)
--- NOTE | 2017-10-01 14:24 | PN ---
Physical Exam: SUBJECTIVE: Patient seen and examined Patient intubated/sedated on propofol. Patient's vent settings-- rate of 12, RV 400, FIO2 35%, PEEP 5. OBJECTIVE: Vital Signs Period Temp Pulse Resp BP Sys/Mcdaniel Pulse Ox Last 24 Hr 98.3 F-99.6 F 65-78 12-20 112-154/53-96 96-100 GENERAL: The patient is intubated. Sedated HEAD: Healing L eye bruise. EYES: Bilaterally reacting pupils. Improving L eye hyphema ENT:ETT and NGT in place NECK: Supple. LUNGS: Rhonchi throughout, HEART: S1, S2, RRR ABDOMEN: Soft, nontender, nondistended, normoactive bowel sounds, EXTREMITIES: 2+ pulses, warm, well-perfused, no edema, SCDs. NEUROLOGICAL: Sedated, intubated PSYCH: drowsy Laboratory Results - last 24 hr 09/29/17 09/29/17 09/29/17 00:56 12:36 17:26 WBC RBC Hgb Hct MCV MCH MCHC RDW Plt Count MPV Neutrophils % Lymphocytes % Monocytes % Eosinophils % Basophils % PTT (Actin FS) Puncture Site ABG pH ABG pCO2 at Pt Temp ABG pO2 at Pt Temp ABG HCO3 ABG O2 Sat (Measured) ABG O2 Content ABG Base Excess Addy Test O2 Delivery Device Oxygen Flow Rate Vent Mode Vent Rate PEEP Pressure Support Vent Sodium Potassium Chloride Carbon Dioxide Anion Gap BUN Creatinine Creat Clearance w eGFR POC Glucometer 145.45293 239.72559 [phone] Random Glucose Calcium Phosphorus Magnesium Iron TIBC Iron Saturation Total Bilirubin AST ALT Alkaline Phosphatase Total Protein Albumin Stool Occult Blood Blood Type Antibody Screen Crossmatch 09/30/17 09/30/17 09/30/17 05:08 11:16 15:15 WBC RBC Hgb Hct MCV MCH MCHC RDW Plt Count MPV Neutrophils % Lymphocytes % Monocytes % Eosinophils % Basophils % PTT (Actin FS) Puncture Site ABG pH ABG pCO2 at Pt Temp ABG pO2 at Pt Temp ABG HCO3 ABG O2 Sat (Measured) ABG O2 Content ABG Base Excess Addy Test O2 Delivery Device Oxygen Flow Rate Vent Mode Vent Rate PEEP Pressure Support Vent Sodium Potassium Chloride Carbon Dioxide Anion Gap BUN Creatinine Creat Clearance w eGFR POC Glucometer 150.47604 Random Glucose Calcium Phosphorus Magnesium Iron 39 TIBC 137 L Iron Saturation 28 Total Bilirubin AST ALT Alkaline Phosphatase Total Protein Albumin Stool Occult Blood Positive Blood Type Antibody Screen Crossmatch 09/30/17 10/01/17 10/01/17 16:32 01:48 05:58 WBC RBC Hgb Hct MCV MCH MCHC RDW Plt Count MPV Neutrophils % Lymphocytes % Monocytes % Eosinophils % Basophils % PTT (Actin FS) Puncture Site Left radial ABG pH 7.45 ABG pCO2 at Pt Temp 33.5 L ABG pO2 at Pt Temp 126.0 H D ABG HCO3 22.9 ABG O2 Sat (Measured) 99.0 H ABG O2 Content 10.7 L ABG Base Excess -0.4 Addy Test Positive O2 Delivery Device Mech vent Oxygen Flow Rate 35% Vent Mode A/c Vent Rate 12 PEEP 5.0 Pressure Support Vent 400 Sodium Potassium Chloride Carbon Dioxide Anion Gap BUN Creatinine Creat Clearance w eGFR POC Glucometer 148.53659 [phone] Random Glucose Calcium Phosphorus Magnesium Iron TIBC Iron Saturation Total Bilirubin AST ALT Alkaline Phosphatase Total Protein Albumin Stool Occult Blood Blood Type Antibody Screen Crossmatch 10/01/17 10/01/17 10/01/17 06:35 06:35 06:35 WBC 7.2 RBC 2.90 L Hgb 7.9 L Hct 24.4 L MCV 84.2 MCH 27.4 MCHC 32.5 RDW 16.7 H Plt Count 105 L MPV 8.4 Neutrophils % 85.1 H Lymphocytes % 10.3 Monocytes % 2.7 L Eosinophils % 1.4 Basophils % 0.5 PTT (Actin FS) 27.0 D Puncture Site ABG pH ABG pCO2 at Pt Temp ABG pO2 at Pt Temp ABG HCO3 ABG O2 Sat (Measured) ABG O2 Content ABG Base Excess Addy Test O2 Delivery Device Oxygen Flow Rate Vent Mode Vent Rate PEEP Pressure Support Vent Sodium 145 Potassium 3.9 Chloride 110 H Carbon Dioxide 25 Anion Gap 10 BUN 42 H Creatinine 1.9 H Creat Clearance w eGFR 26.96 POC Glucometer Random Glucose 300 H Calcium 7.3 L Phosphorus 3.2 Magnesium 2.0 Iron TIBC Iron Saturation Total Bilirubin 0.2 D AST 16 ALT 33 Alkaline Phosphatase 77 Total Protein 4.4 L Albumin 1.3 L Stool Occult Blood Blood Type Antibody Screen Crossmatch 10/01/17 10/01/17 10/01/17 07:01 10:15 13:25 WBC RBC Hgb Hct MCV MCH MCHC RDW Plt Count MPV Neutrophils % Lymphocytes % Monocytes % Eosinophils % Basophils % PTT (Actin FS) Puncture Site ABG pH ABG pCO2 at Pt Temp ABG pO2 at Pt Temp ABG HCO3 ABG O2 Sat (Measured) ABG O2 Content ABG Base Excess Addy Test O2 Delivery Device Oxygen Flow Rate Vent Mode Vent Rate PEEP Pressure Support Vent Sodium Potassium Chloride Carbon Dioxide Anion Gap BUN Creatinine Creat Clearance w eGFR POC Glucometer 303.47840 113.55193 Random Glucose Calcium Phosphorus Magnesium Iron TIBC Iron Saturation Total Bilirubin AST ALT Alkaline Phosphatase Total Protein Albumin Stool Occult Blood Blood Type O POSITIVE Antibody Screen Negative Crossmatch See Detail Active Medications Generic Name Dose Route Start Last Admin Trade Name Freq PRN Reason Stop Dose Admin Artificial Tears 1 applic 09/15/17 22:00 09/30/17 21:46 Artificial Tears Ointment - OU 1 applic BID CORDELIA Administration Atorvastatin Calcium 20 mg 09/11/17 22:00 09/30/17 21:44 Lipitor - PO 20 mg HS CORDELIA Administration Chlorhexidine Gluconate 1 applic 09/15/17 22:00 09/30/17 21:45 Hibiclens For Decolonization - TP 1 applic HS CORDELIA Administration Ciprofloxacin 2 drop 09/16/17 14:45 10/01/17 07:05 Ciloxan 0.3% Eye Drops -- OS 2 drop Q2H CORDELIA Administration Digoxin 0.125 mg 09/24/17 10:00 09/30/17 10:32 Lanoxin Injection - IVPUSH 0.125 mg Q2D@1000 CORDELIA Administration Diltiazem HCl 90 mg 09/25/17 12:45 10/01/17 06:19 Cardizem - NGT Not Given Q6HPO [facility] Enoxaparin Sodium 80 mg 10/01/17 12:15 Lovenox - SQ ONCE CORDELIA Hydralazine HCl 10 mg 09/11/17 10:25 09/25/17 09:36 Apresoline Injection - IVPUSH 10 mg Q6H PRN Administration HYPERTENSION HEPARIN SOD,PORK IN 0.45% NACL 25,000 units in 500 mls @ 20 mls/hr 09/12/17 20 :00 10/01/17 03:00 Heparin-1/2ns 25,000 Units/500 IVPB 0 units/hr TITR CORDELIA 0 mls/hr Protocol Titration 1,000 UNITS/HR Propofol 1,000,000 mcg in 100 mls @ 2.484 mls/hr 09/28/17 17:45 10/01/17 08: 51 Diprivan - IVPB 30 mcg/kg/min TITR CORDELIA 14.904 mls/hr Protocol Administration 5 MCG/KG/MIN Dextrose/Sodium Chloride 1,000 mls @ 42 mls/hr 10/01/17 13:30 10/01/17 13:47 D5-1/2ns - IV 42 mls/hr ASDIR CORDELIA Administration Insulin Aspart 1 vial 09/27/17 00:00 10/01/17 07:05 Novolog Vial Sliding Scale - SQ 8 units Q6H CORDELIA Administration Protocol Insulin Detemir 10 units 09/26/17 22:00 09/30/17 21:45 Levemir Vial SQ 10 units HS CORDELIA Administration Metoprolol Tartrate 5 mg 09/11/17 10:25 09/28/17 09:20 Lopressor Injection - IVPUSH 5 mg Q4H PRN Administration HYPERTENSION Metoprolol Tartrate 25 mg 09/25/17 12:30 10/01/17 13:48 Lopressor - PO Not Given BID CORDELIA Mupirocin 1 applic 09/30/17 13:00 10/01/17 10:48 Bactroban Ointment (For Decolonization) - NS 10/05/17 12:59 1 applic BID CORDELIA Administration Ondansetron HCl 4 mg 09/11/17 02:02 Zofran Injection IVPUSH Q6H PRN NAUSEA Pantoprazole Sodium 40 mg 09/23/17 14:15 10/01/17 13:48 Protonix Iv IVPUSH Not Given DAILY CORDELIA Trazodone HCl 50 mg 09/20/17 22:00 09/30/17 21:45 Desyrel - PO 50 mg HS CORDELIA Administration ASSESSMENT/PLAN: 62 yo F with PMHx of HTN, paroxysmal atrial fibrillation on apixaban, DM, HLD, CKD, GERD and colon CA s/p colectomy 2011 with mets to lung admitted to ICU for AMS now reintubated Neuro: Multiple acute strokes -Serial neuro checks -low threshold to repeat imaging for change in exam/ mental status -Continue sedation with propofol drip -Trazadone 50 mg po hs CV: HTN, HLD, Afib on AC at at baseline -cardiology consulted -close hemodynamic monitoring -Digoxin 0.125 mg IV Q2D -diltiazem 90 mg NGT Q6hpo -Lipitor 20 mg po hs -Lopressor 25 mg po bid -Heparin drip-- Held Pulm: Acute hypoxic respiratory failure -Patient intubated -Tracheostomy today, Will be NPO after midnight for PEG tomorrow. -Possible PEG tube placement on , Heparin drip hold at midnight on 10/02 Heme/Onc: Colon Ca s/p resection now with mets to lung and likely brain on chemo , on heparin drip -Heparin Drip for AC-- currently held Renal: Creatinine 1.8 -monitor renal fxn -renally dose meds as indicated -Monitor urine output -Avoid nephrotoxic medications ID: Aspiration pneumonia -Zosyn q8h IV completed Endo: IDDM -follow BGM -sliding scale as needed FEN/GI -No IVF -Monitor -Tube feeds with free water-- held for tracheostomy and will be held at midnight for peg tube tomorrow PPX: -PPI -Heparin drip held 2/2 to tracheostomy. patient will receive 1 dose of lovenox 80mg and will not be placed back on heparin drip due to peg tube placement tomorrow CODE: FULL CODE HCP: Daughter does not have legal health care proxy paperwork. Nurse Buenrostro and Lyndsey Quiroz spoke to the patient's who has deffered to the daughter to make decisions for the patient. Visit type - Emergency Visit Emergency Visit: Yes ED Registration Date: 09/10/17 Care time: The patient presented to the Emergency Department on the above date and was hospitalized for further evaluation of their emergent condition. - New Patient This patient is new to me today: No - Critical Care Critical Care patient: Yes Total Critical Care Time (in minutes): 40 Critical Care Statement: The care of this patient involved high complexity decision making to prevent further life threatening deterioration of the patient 's condition and/or to evaluate & treat vital organ system(s) failure or risk of failure.
--- NOTE | 2017-10-01 14:33 | OP ---
Operative Note - Note: Operative Date: 10/01/17 ([id number]) Pre-Operative Diagnosis: chronic respiratory failure, ventilator dependant, unable to extubate Operation: Tracheotomy Findings: thyroid isthmus over superior trachea Post-Operative Diagnosis: Same as Pre-op Surgeon: Ben Rainey Anesthesiologist/CATERER'S AIDE: Bello Mack Anesthesia: General Estimated Blood Loss (mls): 1 Drains & Tubes with Location: #7 Portex cuffed unfenestrated tracheotomy tube Blood Volume Replaced (mls): 0 Operative Report Dictated: Yes
--- NOTE | 2017-10-01 15:20 | PN ---
Progress Note, Physician History of Present Illness: Chart reviewed. Tracheostomy planned for today. - Current Medication List Current Medications: Active Medications Artificial Tears (Artificial Tears Ointment -) 1 applic OU BID [facility] Last Admin: 09/30/17 21:46 Dose: 1 applic Atorvastatin Calcium (Lipitor -) 20 mg PO HS [facility] Last Admin: 09/30/17 21:44 Dose: 20 mg Chlorhexidine Gluconate (Hibiclens For Decolonization -) 1 applic TP HS [facility] Last Admin: 09/30/17 21:45 Dose: 1 applic Ciprofloxacin (Ciloxan 0.3% Eye Drops --) 2 drop OS Q2H [facility] Last Admin: 10/01/17 07:05 Dose: 2 drop Digoxin (Lanoxin Injection -) 0.125 mg IVPUSH Q2D@1000 CORDELIA Last Admin: 09/30/17 10:32 Dose: 0.125 mg Diltiazem HCl (Cardizem -) 90 mg NGT Q6HPO [facility] Last Admin: 10/01/17 06:19 Dose: Not Given Enoxaparin Sodium (Lovenox -) 80 mg SQ ONCE [facility] Hydralazine HCl (Apresoline Injection -) 10 mg IVPUSH Q6H PRN PRN Reason: HYPERTENSION Last Admin: 09/25/17 09:36 Dose: 10 mg HEPARIN SOD,PORK IN 0.45% NACL (Heparin-1/2ns 25,000 Units/500) 25,000 units in 500 mls @ 20 mls/hr IVPB TITR CORDELIA; 1,000 UNITS/HR PRN Reason: Protocol Last Titration: 10/01/17 03:00 Dose: 0 units/hr, 0 mls/hr Propofol (Diprivan -) 1,000,000 mcg in 100 mls @ 2.484 mls/hr IVPB TITR CORDELIA; 5 MCG/KG/MIN PRN Reason: Protocol Last Admin: 10/01/17 08:51 Dose: 30 mcg/kg/min, 14.904 mls/hr Dextrose/Sodium Chloride (D5-1/2ns -) 1,000 mls @ 42 mls/hr IV ASDIR [facility] Last Admin: 10/01/17 13:47 Dose: 42 mls/hr Insulin Aspart (Novolog Vial Sliding Scale -) 1 vial SQ Q6H CORDELIA PRN Reason: Protocol Last Admin: 10/01/17 07:05 Dose: 8 units Insulin Detemir (Levemir Vial) 10 units SQ [facility] Last Admin: 09/30/17 21:45 Dose: 10 units Metoprolol Tartrate (Lopressor Injection -) 5 mg IVPUSH Q4H PRN PRN Reason: HYPERTENSION Last Admin: 09/28/17 09:20 Dose: 5 mg Metoprolol Tartrate (Lopressor -) 25 mg PO BID [facility] Last Admin: 10/01/17 13:48 Dose: Not Given Mupirocin (Bactroban Ointment (For Decolonization) -) 1 applic NS BID [facility] Stop: 10/05/17 12:59 Last Admin: 10/01/17 10:48 Dose: 1 applic Ondansetron HCl (Zofran Injection) 4 mg IVPUSH Q6H PRN PRN Reason: NAUSEA Pantoprazole Sodium (Protonix Iv) 40 mg IVPUSH DAILY [facility] Last Admin: 10/01/17 13:48 Dose: Not Given Trazodone HCl (Desyrel -) 50 mg PO [facility] Last Admin: 09/30/17 21:45 Dose: 50 mg - Objective Vital Signs: Vital Signs Temperature 99.6 F 10/01/17 10:00 Pulse Rate 71 10/01/17 10:00 Respiratory Rate 20 10/01/17 11:26 Blood Pressure 146/59 10/01/17 10:00 O2 Sat by Pulse Oximetry (%) 100 10/01/17 09:00 Labs: CBC, BMP 10/01/17 06:35 10/01/17 06:35 INR, PTT INR 0.96 (0.82-1.09) 09/17/17 06:25 Abnormal Lab Results 09/30/17 10/01/17 10/01/17 05:08 05:58 06:35 RBC 2.90 L Hgb 7.9 L Hct 24.4 L RDW 16.7 H Plt Count 105 L Neutrophils % 85.1 H Monocytes % 2.7 L ABG pCO2 at Pt Temp 33.5 L ABG pO2 at Pt Temp 126.0 H D ABG O2 Sat (Measured) 99.0 H ABG O2 Content 10.7 L Chloride BUN Creatinine Random Glucose Calcium TIBC 137 L Total Protein Albumin Crossmatch 10/01/17 10/01/17 06:35 10:15 RBC Hgb Hct RDW Plt Count Neutrophils % Monocytes % ABG pCO2 at Pt Temp ABG pO2 at Pt Temp ABG O2 Sat (Measured) ABG O2 Content Chloride 110 H BUN 42 H Creatinine 1.9 H Random Glucose 300 H Calcium 7.3 L TIBC Total Protein 4.4 L Albumin 1.3 L Crossmatch See Detail Problem List - Problems (1) Brain metastasis Code(s): C79.31 - SECONDARY MALIGNANT NEOPLASM OF BRAIN (2) CVA (cerebral vascular accident) Code(s): I63.9 - CEREBRAL INFARCTION, UNSPECIFIED (3) Metastatic colorectal cancer Code(s): C78.5 - SECONDARY MALIGNANT NEOPLASM OF LARGE INTESTINE AND RECTUM (4) Respiratory failure Code(s): J96.90 - RESPIRATORY FAILURE, UNSP, UNSP W HYPOXIA OR HYPERCAPNIA Assessment/Plan A 62 yof with a terminal disease. The PEG in this patient will not improve survival, or quality of life however will allow to transfer the patent to intermediate level of care
--- NOTE | 2017-10-01 20:10 | PN ---
Progress Note (short form) - Note Progress Note: ENT - Post op check s/p tracheostomy this afternoon stable, trach secure and functioning, minimal serosanguinous drainage, no air leak NG tube in place CXR tracheotomy tube inplace, increased congestion, no pneumothorax Impression: stable s/p tracheotomy Recommend: trach care continue ventilator support pulmonary toilet Ben Rainey MD FACS Problem List - Problems (1) Respiratory failure Code(s): J96.90 - RESPIRATORY FAILURE, UNSP, UNSP W HYPOXIA OR HYPERCAPNIA
[2017-10-01] MEDS ORDERED: PT OWN MED DRAWER 7, Y5N ONE (20:52)
[2017-10-01] MEDS ORDERED: ENOXAPARIN NA (PORCINE) 80 MG/0.8 ML DISP.SYRIN SQ ONE (21:00)
[2017-10-01] MEDS: ATORVASTATIN CA 20 MG TABLET (FP) PO SCH (21:03)
[2017-10-01] MEDS: traZODone HCL 50 MG TABLET (FP) PO SCH (21:04)
[2017-10-01] MEDS: CHLORHEXIDINE GLUCONATE 4% CLEANSER FOR DECOLONIZATION TP SCH (21:05)
[2017-10-01] MEDS: INSULIN DETEMIR 100 UNITS/ML MDV SQ SCH (21:06)
--- NOTE | 2017-10-01 22:30 | PN ---
Progress Note, Physician Chief Complaint: sp trache placement History of Present Illness: in icu sp tracheostomy for respiratory support,sp cva,dm,colon cancer,lung mass, sedated - Current Medication List Current Medications: Active Medications Artificial Tears (Artificial Tears Ointment -) 1 applic OU BID [facility] Last Admin: 10/01/17 21:08 Dose: 1 applic Atorvastatin Calcium (Lipitor -) 20 mg PO HS [facility] Last Admin: 10/01/17 21:03 Dose: 20 mg Chlorhexidine Gluconate (Hibiclens For Decolonization -) 1 applic TP HS [facility] Last Admin: 10/01/17 21:05 Dose: 1 applic Ciprofloxacin (Ciloxan 0.3% Eye Drops --) 2 drop OS Q2H [facility] Last Admin: 10/01/17 21:07 Dose: 2 drop Digoxin (Lanoxin Injection -) 0.125 mg IVPUSH Q2D@1000 [facility] Last Admin: 09/30/17 10:32 Dose: 0.125 mg Diltiazem HCl (Cardizem -) 90 mg NGT Q6HPO [facility] Last Admin: 10/01/17 21:03 Dose: 90 mg Enoxaparin Sodium (Lovenox -) 80 mg SQ ONCE [facility] Enoxaparin Sodium (Lovenox -) 80 mg SQ ONCE [facility] Last Admin: 10/01/17 20:53 Dose: 80 mg Hydralazine HCl (Apresoline Injection -) 10 mg IVPUSH Q6H PRN PRN Reason: HYPERTENSION Last Admin: 09/25/17 09:36 Dose: 10 mg HEPARIN SOD,PORK IN 0.45% NACL (Heparin-1/2ns 25,000 Units/500) 25,000 units in 500 mls @ 20 mls/hr IVPB TITR [facility]; 1,000 UNITS/HR PRN Reason: Protocol Last Titration: 10/01/17 03:00 Dose: 0 units/hr, 0 mls/hr Propofol (Diprivan -) 1,000,000 mcg in 100 mls @ 2.484 mls/hr IVPB TITR [facility]; 5 MCG/KG/MIN PRN Reason: Protocol Last Admin: 10/01/17 20:29 Dose: Not Given Dextrose/Sodium Chloride (D5-1/2ns -) 1,000 mls @ 42 mls/hr IV ASDIR [facility] Last Admin: 10/01/17 13:47 Dose: 42 mls/hr Insulin Aspart (Novolog Vial Sliding Scale -) 1 vial SQ Q6H [facility] PRN Reason: Protocol Last Admin: 10/01/17 19:33 Dose: Not Given Insulin Detemir (Levemir Vial) 10 units SQ [facility] Last Admin: 10/01/17 21:06 Dose: 10 units Metoprolol Tartrate (Lopressor Injection -) 5 mg IVPUSH Q4H PRN PRN Reason: HYPERTENSION Last Admin: 09/28/17 09:20 Dose: 5 mg Metoprolol Tartrate (Lopressor -) 25 mg PO BID [facility] Last Admin: 10/01/17 21:03 Dose: 25 mg Mupirocin (Bactroban Ointment (For Decolonization) -) 1 applic NS BID [facility] Stop: 10/05/17 12:59 Last Admin: 10/01/17 21:05 Dose: 1 applic Ondansetron HCl (Zofran Injection) 4 mg IVPUSH Q6H PRN PRN Reason: NAUSEA Pantoprazole Sodium (Protonix Iv) 40 mg IVPUSH DAILY [facility] Last Admin: 10/01/17 13:48 Dose: Not Given Trazodone HCl (Desyrel -) 50 mg PO [facility] Last Admin: 10/01/17 21:04 Dose: 50 mg - Objective Vital Signs: Vital Signs Temperature 99.3 F 10/01/17 19:10 Pulse Rate 85 10/01/17 21:46 Respiratory Rate 14 10/01/17 22:00 Blood Pressure 152/68 10/01/17 21:46 O2 Sat by Pulse Oximetry (%) 99 10/01/17 22:00 Constitutional: Yes: No Distress Eyes: Yes: EOM Intact HENT: Yes: Normocephalic Neck: Yes: Trachea Midline Cardiovascular: Yes: Regular Rate and Rhythm Respiratory: Yes: CTA Bilaterally Gastrointestinal: Yes: Normal Bowel Sounds ...Rectal Exam: Yes: Deferred Genitourinary: Yes: WNL Breast(s): Yes: WNL Musculoskeletal: Yes: WNL Extremities: Yes: WNL Edema: No Labs: CBC, BMP 10/01/17 06:35 10/01/17 06:35 INR, PTT INR 0.96 (0.82-1.09) 09/17/17 06:25 Problem List - Problems (1) 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 Code(s): E10.3211 - TYPE 1 DIAB WITH MILD NONP RTNOP WITH MACULAR EDEMA, R EYE (2) Brain metastasis Code(s): C79.31 - SECONDARY MALIGNANT NEOPLASM OF BRAIN (3) CVA (cerebral vascular accident) Code(s): I63.9 - CEREBRAL INFARCTION, UNSPECIFIED (4) Headache Code(s): R51 - HEADACHE Qualifiers: Headache chronicity pattern: unspecified pattern Intractability: intractable (5) Hypercapnia Code(s): R06.89 - OTHER ABNORMALITIES OF BREATHING (6) Metastatic colorectal cancer Code(s): C78.5 - SECONDARY MALIGNANT NEOPLASM OF LARGE INTESTINE AND RECTUM (7) SUASN (acute kidney injury) Code(s): N17.9 - ACUTE KIDNEY FAILURE, UNSPECIFIED Assessment/Plan Current Active Problems Anemia (Acute) Brain metastasis (Acute) CVA (cerebral vascular accident) (Acute) Headache (Acute) Hypercapnia (Acute) Hypernatremia (Acute) Intractable vomiting with nausea (Acute) Metastatic colorectal cancer (Acute) Pneumonia (Acute) Respiratory failure (Acute) 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 (Acute) tracheostomy placement/respiratory failure Laboratory Results - last 24 hr 09/30/17 10/01/17 10/01/17 05:08 01:48 05:58 WBC RBC Hgb Hct MCV MCH MCHC RDW Plt Count MPV Neutrophils % Lymphocytes % Monocytes % Eosinophils % Basophils % PTT (Actin FS) Puncture Site Left radial ABG pH 7.45 ABG pCO2 at Pt Temp 33.5 L ABG pO2 at Pt Temp 126.0 H D ABG HCO3 22.9 ABG O2 Sat (Measured) 99.0 H ABG O2 Content 10.7 L ABG Base Excess -0.4 Addy Test Positive O2 Delivery Device Mech vent Oxygen Flow Rate 35% Vent Mode A/c Vent Rate 12 PEEP 5.0 Pressure Support Vent 400 Sodium Potassium Chloride Carbon Dioxide Anion Gap BUN Creatinine Creat Clearance w eGFR POC Glucometer [phone] Random Glucose Calcium Phosphorus Magnesium Iron 39 TIBC 137 L Iron Saturation 28 Total Bilirubin AST ALT Alkaline Phosphatase Total Protein Albumin Blood Type Antibody Screen Crossmatch 10/01/17 10/01/17 10/01/17 06:35 06:35 06:35 WBC 7.2 RBC 2.90 L Hgb 7.9 L Hct 24.4 L MCV 84.2 MCH 27.4 MCHC 32.5 RDW 16.7 H Plt Count 105 L MPV 8.4 Neutrophils % 85.1 H Lymphocytes % 10.3 Monocytes % 2.7 L Eosinophils % 1.4 Basophils % 0.5 PTT (Actin FS) 27.0 D Puncture Site ABG pH ABG pCO2 at Pt Temp ABG pO2 at Pt Temp ABG HCO3 ABG O2 Sat (Measured) ABG O2 Content ABG Base Excess Addy Test O2 Delivery Device Oxygen Flow Rate Vent Mode Vent Rate PEEP Pressure Support Vent Sodium 145 Potassium 3.9 Chloride 110 H Carbon Dioxide 25 Anion Gap 10 BUN 42 H Creatinine 1.9 H Creat Clearance w eGFR 26.96 POC Glucometer Random Glucose 300 H Calcium 7.3 L Phosphorus 3.2 Magnesium 2.0 Iron TIBC Iron Saturation Total Bilirubin 0.2 D AST 16 ALT 33 Alkaline Phosphatase 77 Total Protein 4.4 L Albumin 1.3 L Blood Type Antibody Screen Crossmatch 10/01/17 10/01/17 10/01/17 07:01 10:15 13:25 WBC RBC Hgb Hct MCV MCH MCHC RDW Plt Count MPV Neutrophils % Lymphocytes % Monocytes % Eosinophils % Basophils % PTT (Actin FS) Puncture Site ABG pH ABG pCO2 at Pt Temp ABG pO2 at Pt Temp ABG HCO3 ABG O2 Sat (Measured) ABG O2 Content ABG Base Excess Addy Test O2 Delivery Device Oxygen Flow Rate Vent Mode Vent Rate PEEP Pressure Support Vent Sodium Potassium Chloride Carbon Dioxide Anion Gap BUN Creatinine Creat Clearance w eGFR POC Glucometer [phone] Random Glucose Calcium Phosphorus Magnesium Iron TIBC Iron Saturation Total Bilirubin AST ALT Alkaline Phosphatase Total Protein Albumin Blood Type O POSITIVE Antibody Screen Negative Crossmatch See Detail 10/01/17 19:28 WBC RBC Hgb Hct MCV MCH MCHC RDW Plt Count MPV Neutrophils % Lymphocytes % Monocytes % Eosinophils % Basophils % PTT (Actin FS) Puncture Site ABG pH ABG pCO2 at Pt Temp ABG pO2 at Pt Temp ABG HCO3 ABG O2 Sat (Measured) ABG O2 Content ABG Base Excess Addy Test O2 Delivery Device Oxygen Flow Rate Vent Mode Vent Rate PEEP Pressure Support Vent Sodium Potassium Chloride Carbon Dioxide Anion Gap BUN Creatinine Creat Clearance w eGFR POC Glucometer [phone] Random Glucose Calcium Phosphorus Magnesium Iron TIBC Iron Saturation Total Bilirubin AST ALT Alkaline Phosphatase Total Protein Albumin Blood Type Antibody Screen Crossmatch plan: insulin coverage achs levemir 10 units sq bid continue supportive care Current Medications Generic Name Dose Route Start Last Admin Trade Name Freq PRN Reason Stop Dose Admin Artificial Tears 1 applic 09/15/17 22:00 10/01/17 21:08 Artificial Tears Ointment - OU 1 applic BID [facility] Administration Atorvastatin Calcium 20 mg 09/11/17 22:00 10/01/17 21:03 Lipitor - PO 20 mg HS [facility] Administration Chlorhexidine Gluconate 1 applic 09/15/17 22:00 10/01/17 21:05 Hibiclens For Decolonization - TP 1 applic HS [facility] Administration Ciprofloxacin 2 drop 09/16/17 14:45 10/01/17 21:07 Ciloxan 0.3% Eye Drops -- OS 2 drop Q2H [facility] Administration Digoxin 0.125 mg 09/24/17 10:00 09/30/17 10:32 Lanoxin Injection - IVPUSH 0.125 mg Q2D@1000 [facility] Administration Diltiazem HCl 90 mg 09/25/17 12:45 10/01/17 21:03 Cardizem - NGT 90 mg Q6HPO [facility] Administration Enoxaparin Sodium 80 mg 10/01/17 12:15 Lovenox - SQ ONCE [facility] Enoxaparin Sodium 80 mg 10/01/17 21:00 10/01/17 20:53 Lovenox - SQ 80 mg ONCE [facility] Administration Hydralazine HCl 10 mg 09/11/17 10:25 09/25/17 09:36 Apresoline Injection - IVPUSH 10 mg Q6H PRN Administration HYPERTENSION HEPARIN SOD,PORK IN 0.45% NACL 25,000 units in 500 mls @ 20 mls/hr 09/12/17 20 :00 10/01/17 03:00 Heparin-1/2ns 25,000 Units/500 IVPB 0 units/hr TITR [facility] 0 mls/hr Protocol Titration 1,000 UNITS/HR Propofol 1,000,000 mcg in 100 mls @ 2.484 mls/hr 09/28/17 17:45 10/01/17 20: 29 Diprivan - IVPB Not Given TITR [facility] Protocol 5 MCG/KG/MIN Dextrose/Sodium Chloride 1,000 mls @ 42 mls/hr 10/01/17 13:30 10/01/17 13:47 D5-1/2ns - IV 42 mls/hr ASDIR [facility] Administration Insulin Aspart 1 vial 09/27/17 00:00 10/01/17 19:33 Novolog Vial Sliding Scale - SQ Not Given Q6H [facility] Protocol Insulin Detemir 10 units 09/26/17 22:00 10/01/17 21:06 Levemir Vial SQ 10 units HS [facility] Administration Metoprolol Tartrate 5 mg 09/11/17 10:25 09/28/17 09:20 Lopressor Injection - IVPUSH 5 mg Q4H PRN Administration HYPERTENSION Metoprolol Tartrate 25 mg 09/25/17 12:30 10/01/17 21:03 Lopressor - PO 25 mg BID [facility] Administration Mupirocin 1 applic 09/30/17 13:00 10/01/17 21:05 Bactroban Ointment (For Decolonization) - NS 10/05/17 12:59 1 applic BID [facility] Administration Ondansetron HCl 4 mg 09/11/17 02:02 Zofran Injection IVPUSH Q6H PRN NAUSEA Pantoprazole Sodium 40 mg 09/23/17 14:15 10/01/17 13:48 Protonix Iv IVPUSH Not Given DAILY [facility] Trazodone HCl 50 mg 09/20/17 22:00 10/01/17 21:04 Desyrel - PO 50 mg HS [facility] Administration
[2017-10-02] MEDS: CIPROFLOXACIN 0.3% EYE DROPS 5 ML BOTTLE OS SCH ×12 (01:00→22:45)
[2017-10-02] MEDS: PROPOFOL 1,000,000 MCG/100 ML VIAL IVPB SCH ×2 (02:09→06:10)
[2017-10-02] MEDS ORDERED: HEMOQUE TEST 1 EACH EACH ONE (03:27)
[2017-10-02] MEDS: dilTIAZem HCL 30 MG TABLET (FP) NGT SCH ×4 (05:39→17:11)
[2017-10-02] MEDS: INSULIN SLIDING SCALE (NOVOLOG) 1 VIAL SQ SCH ×4 (05:39→17:28)
[2017-10-02 06:18] LABS: ARTERIAL BLD GAS O2 SATURATION 97.5 % (90-98.9); ARTERIAL BLOOD GAS BASE EXCESS 1.5 meq/l (-2-2); ARTERIAL BLOOD GAS PO2 95.3 mmHg (80-100); ARTERIAL BLOOD GAS pH 7.45 (7.35-7.45)
[2017-10-02 06:19] LABS: ALLENS TEST POSITIVE
[2017-10-02 07:17] LABS: ALBUMIN 1.3 g/dl (3.4-5.0); ANION GAP 8 (8-16); BLOOD UREA NITROGEN 30 mg/dL (7-18); CALCIUM 7.8 mg/dL (8.5-10.1); CHLORIDE 114 mmol/L (98-107); CO2 27 mmol/L (21-32); GLUCOSE,RANDOM 84 mg/dL (74-106); MAGNESIUM 2.1 mg/dL (1.8-2.4); POTASSIUM 4.2 mmol/L (3.5-5.1); SODIUM 149 mmol/L (136-145)
[2017-10-02 07:20] LABS: ALK PHOS 73 U/L (45-117); BILIRUBIN,TOTAL 0.2 mg/dL (0.2-1.0); CREATININE 1.5 mg/dL (0.55-1.02); PHOSPHOROUS 2.2 mg/dL (2.5-4.9); SGOT/AST 20 U/L (15-37); SGPT/ALT 27 U/L (12-78); TOT PROT 4.4 g/dl (6.4-8.2)
[2017-10-02 07:24] LABS: INR 0.98 (0.82-1.09); PROTHROMBIN TIME (PATIENT) 11.1 SEC (9.98-11.88)
[2017-10-02 07:26] LABS: ACTIVATED PTT 32.2 SECONDS (26.9-34.4)
[2017-10-02 07:37] LABS: BASO % 0.4 % (0-2.0); EOS % 1.8 % (0-4.5); HEMATOCRIT 27.3 % (32.4-45.2); HEMOGLOBIN 8.9 GM/dL (10.7-15.3); MCH 27.5 pg (25.7-33.7); MCHC 32.6 g/dl (32.0-36.0); MEAN CELL VOLUME 84.4 fl (80-96); MEAN PLT VOLUME 8.8 fl (7.5-11.1); MONO % 3.3 % (3.8-10.2); NEUT % 80.5 % (42.8-82.8); PLATELET COUNT 98 K/MM3 (134-434); RBC 3.23 M/mm3 (3.60-5.2); RDW 16.4 % (11.6-15.6); WHITE BLOOD COUNT 8.6 K/mm3 (4.0-10.0)
[2017-10-02] MEDS: DEXTROSE 5%-0.45% SALINE 1,000 ML IV SCH ×2 (09:00→14:55)
[2017-10-02] MEDS: METOPROLOL TARTRATE 25 MG TABLET (FP) PO SCH ×2 (10:12→21:55)
[2017-10-02] MEDS: PANTOPRAZOLE SODIUM 40 MG VIAL IVPUSH SCH (10:13)
[2017-10-02] MEDS: DIGOXIN 0.5 MG/2 ML AMPUL IVPUSH SCH (10:14)
[2017-10-02] MEDS: MINERAL OIL/PETROLATUM,WHITE 3.5 GM TUBE OU SCH ×2 (10:16→22:00)
--- NOTE | 2017-10-02 10:20 | PN ---
Progress Note, Physician Chief Complaint: seen in icu intubated sedated s/p trach yesterday NG tube - Current Medication List Current Medications: Active Medications Artificial Tears (Artificial Tears Ointment -) 1 applic OU BID [facility] Last Admin: 10/01/17 21:08 Dose: 1 applic Atorvastatin Calcium (Lipitor -) 20 mg PO HS [facility] Last Admin: 10/01/17 21:03 Dose: 20 mg Chlorhexidine Gluconate (Hibiclens For Decolonization -) 1 applic TP HS [facility] Last Admin: 10/01/17 21:05 Dose: 1 applic Ciprofloxacin (Ciloxan 0.3% Eye Drops --) 2 drop OS Q2H [facility] Last Admin: 10/02/17 09:03 Dose: 2 drop Digoxin (Lanoxin Injection -) 0.125 mg IVPUSH Q2D@1000 [facility] Last Admin: 09/30/17 10:32 Dose: 0.125 mg Diltiazem HCl (Cardizem -) 90 mg NGT Q6HPO [facility] Last Admin: 10/02/17 05:39 Dose: 90 mg Enoxaparin Sodium (Lovenox -) 80 mg SQ ONCE [facility] Enoxaparin Sodium (Lovenox -) 80 mg SQ ONCE [facility] Last Admin: 10/01/17 20:53 Dose: 80 mg Hydralazine HCl (Apresoline Injection -) 10 mg IVPUSH Q6H PRN PRN Reason: HYPERTENSION Last Admin: 09/25/17 09:36 Dose: 10 mg HEPARIN SOD,PORK IN 0.45% NACL (Heparin-1/2ns 25,000 Units/500) 25,000 units in 500 mls @ 20 mls/hr IVPB TITR [facility]; 1,000 UNITS/HR PRN Reason: Protocol Last Titration: 10/01/17 03:00 Dose: 0 units/hr, 0 mls/hr Propofol (Diprivan -) 1,000,000 mcg in 100 mls @ 2.484 mls/hr IVPB TITR [facility]; 5 MCG/KG/MIN PRN Reason: Protocol Last Titration: 10/02/17 08:59 Dose: 0 mcg/kg/min, 0 mls/hr Dextrose/Sodium Chloride (D5-1/2ns -) 1,000 mls @ 42 mls/hr IV ASDIR [facility] Last Admin: 10/02/17 09:00 Dose: 42 mls/hr Insulin Aspart (Novolog Vial Sliding Scale -) 1 vial SQ Q6H [facility] PRN Reason: Protocol Last Admin: 10/02/17 05:39 Dose: Not Given Insulin Detemir (Levemir Vial) 10 units SQ [facility] Last Admin: 10/01/17 21:06 Dose: 10 units Metoprolol Tartrate (Lopressor Injection -) 5 mg IVPUSH Q4H PRN PRN Reason: HYPERTENSION Last Admin: 09/28/17 09:20 Dose: 5 mg Metoprolol Tartrate (Lopressor -) 25 mg PO BID [facility] Last Admin: 10/01/17 21:03 Dose: 25 mg Mupirocin (Bactroban Ointment (For Decolonization) -) 1 applic NS BID [facility] Stop: 10/05/17 12:59 Last Admin: 10/01/17 21:05 Dose: 1 applic Ondansetron HCl (Zofran Injection) 4 mg IVPUSH Q6H PRN PRN Reason: NAUSEA Pantoprazole Sodium (Protonix Iv) 40 mg IVPUSH DAILY [facility] Last Admin: 10/01/17 13:48 Dose: Not Given Trazodone HCl (Desyrel -) 50 mg PO [facility] Last Admin: 10/01/17 21:04 Dose: 50 mg - Objective Vital Signs: Vital Signs Temperature 98.2 F 10/02/17 02:00 Pulse Rate 81 10/02/17 08:52 Respiratory Rate 18 10/02/17 09:00 Blood Pressure 159/71 10/02/17 08:00 O2 Sat by Pulse Oximetry (%) 98 10/02/17 08:52 Constitutional: Yes: Calm HENT: Yes: Other (trach) Cardiovascular: Yes: S1, S2 Respiratory: Yes: Mechanically Ventilated Gastrointestinal: Yes: Soft Neurological: Yes: Other (sedated) Labs: CBC, BMP 10/02/17 05:30 10/02/17 05:30 INR, PTT INR 0.98 (0.82-1.09) 10/02/17 05:30 Problem List - Problems (1) Respiratory failure Assessment/Plan: intubated sedated s/p tracheostomy yesterday Code(s): J96.90 - RESPIRATORY FAILURE, UNSP, UNSP W HYPOXIA OR HYPERCAPNIA (2) Pneumonia Assessment/Plan: iv zosyn s/p 8 day course abx stopped Code(s): J18.9 - PNEUMONIA, UNSPECIFIED ORGANISM (3) Atrial fibrillation Assessment/Plan: digoxin,cardizem and metoprolol Code(s): I48.91 - UNSPECIFIED ATRIAL FIBRILLATION (4) Anemia Assessment/Plan: stool occult blood ppi iron panel GI follow up noted Code(s): D64.9 - ANEMIA, UNSPECIFIED (5) Diabetes Assessment/Plan: insulin bgm ok for now Code(s): E11.9 - TYPE 2 DIABETES MELLITUS WITHOUT COMPLICATIONS Qualifiers: Diabetes mellitus type: type 2 (6) CVA (cerebral vascular accident) Assessment/Plan: S/p multiple acute embolic infarcts intubated- s/p trach now plan is for PEG ?? Ng tube placed for tube feeds Code(s): I63.9 - CEREBRAL INFARCTION, UNSPECIFIED
[2017-10-02] MEDS ORDERED: ceFAZolin 2 GRAM PREMIX BAG IVPB ONE (11:17)
--- NOTE | 2017-10-02 11:23 | OP ---
DATE OF OPERATION: 10/01/2017 PREOPERATIVE DIAGNOSIS: Respiratory failure, prolonged intubation, ventilator dependent. POSTOPERATIVE DIAGNOSIS: Respiratory failure, prolonged intubation, ventilator dependent. PROCEDURE: Tracheostomy. SURGEON: Rafael Rainey MD ANESTHESIOLOGIST: Bello Mack MD ANESTHESIA: General via endotracheal tube. INDICATIONS: This 62-year-old female has long medical history including metastatic colorectal cancer and bilateral strokes. She has acute respiratory failure and has been on a ventilator for nearly 3 weeks. She has been intubated and failed extubation twice. It is not anticipated she will be able to be off the ventilator in the near future. She is now admitted for tracheotomy. FINDINGS: Abundant subcutaneous soft tissue. Adjacent wound not interfering with surgical field. Thyroid isthmus sits high on the trachea. DESCRIPTION OF PROCEDURE: Patient was brought to the operating room and remained in the ICU bed in supine position. A shoulder roll was placed, extending the neck. General endotracheal anesthesia was induced to a satisfactory level. She was prepped and draped in usual fashion for surgery. Landmarks were identified and marked. Lidocaine 1% with epinephrine 1:100,000 was infiltrated in the anterior neck. After appropriate time, a transverse incision was created over the upper trachea. It was carried down through skin and subcutaneous tissue. Hemostasis was achieved with electrocautery. The strap muscles were then identified and in the midline raphe. Both layers were and retracted laterally. The thyroid isthmus was identified. It sat just at and below the cricoid cartilage. Tracheotomy site was just below the isthmus. The trachea was then cleaned and exposed. The interspace between the third and fourth tracheal rings was then incised, and an inferiorly based tracheal flap was created and sutured to the inferior wound edge with a silk suture. The indwelling endotracheal tube was then drawn superiorly by the anesthesiologist until the tip was just superior to the tracheotomy. The distal trachea was identified and was clear. A number 7 Portex cuffed, unfenestrated tracheotomy tube was then passed into the distal trachea. The obturator was removed, inner cannula placed, and the cuff inflated. Excellent ventilation occurred. The tracheotomy tube was then secured using silk sutures at the phalange as well as a Velcro tracheotomy strap. Patient tolerated the procedure well. She was then returned to the intensive care unit in stable condition. Chest x-ray was ordered. Estimated blood loss was minimal. There were no specimens and no complications. A number 7 cuffed, unfenestrated tracheostomy tube/Portex was in place at the conclusion of the case. RAFAEL RAINEY M.D. HUSSAIN/[id number] MTDD
--- NOTE | 2017-10-02 11:37 | PROC ---
Endoscopy Procedure Endoscopy procedure completed. Please see scanned procedure report. s/p New PEG
--- NOTE | 2017-10-02 11:46 | PN ---
Teaching Attending Note Name of Resident: Carson Lopez ATTENDING PHYSICIAN STATEMENT I saw and evaluated the patient. I reviewed the resident's note and discussed the case with the resident. I agree with the resident's findings and plan as documented. SUBJECTIVE: Patient seen and examined in the ICU. AC Mode of vent via Trach. Lightly sedated. No pressors. For PEG Intake & Output 09/29/17 09/30/17 10/01/17 10/02/17 23:59 23:59 23:59 23:59 Intake Total 1663.4 1703 1358 440 Output Total 1700 1350 850 350 Balance -36.6 353 508 90 Weight 185 lb 10.067 oz 185 lb 5 oz 185 lb 1 oz 184 lb 1 oz Last Vital Signs Temp Pulse Resp BP Pulse Ox 99.6 F 94 H 28 H 168/70 98 10/02/17 10:00 10/02/17 10:14 10/02/17 11:25 10/02/17 10:00 10/02/17 08:52 Active Medications Artificial Tears (Artificial Tears Ointment -) 1 applic OU BID [facility] Last Admin: 10/02/17 10:16 Dose: 1 applic Atorvastatin Calcium (Lipitor -) 20 mg PO HS [facility] Last Admin: 10/01/17 21:03 Dose: 20 mg Chlorhexidine Gluconate (Hibiclens For Decolonization -) 1 applic TP HS [facility] Last Admin: 10/01/17 21:05 Dose: 1 applic Ciprofloxacin (Ciloxan 0.3% Eye Drops --) 2 drop OS Q2H [facility] Last Admin: 10/02/17 10:16 Dose: 2 drop Digoxin (Lanoxin Injection -) 0.125 mg IVPUSH Q2D@1000 [facility] Last Admin: 10/02/17 10:14 Dose: 0.125 mg Diltiazem HCl (Cardizem -) 90 mg NGT Q6HPO [facility] Last Admin: 10/02/17 05:39 Dose: 90 mg Enoxaparin Sodium (Lovenox -) 80 mg SQ ONCE [facility] Enoxaparin Sodium (Lovenox -) 80 mg SQ ONCE [facility] Last Admin: 10/01/17 20:53 Dose: 80 mg Hydralazine HCl (Apresoline Injection -) 10 mg IVPUSH Q6H PRN PRN Reason: HYPERTENSION Last Admin: 09/25/17 09:36 Dose: 10 mg HEPARIN SOD,PORK IN 0.45% NACL (Heparin-1/2ns 25,000 Units/500) 25,000 units in 500 mls @ 20 mls/hr IVPB TITR [facility]; 1,000 UNITS/HR PRN Reason: Protocol Last Titration: 10/01/17 03:00 Dose: 0 units/hr, 0 mls/hr Propofol (Diprivan -) 1,000,000 mcg in 100 mls @ 2.484 mls/hr IVPB TITR [facility]; 5 MCG/KG/MIN PRN Reason: Protocol Last Titration: 10/02/17 08:59 Dose: 0 mcg/kg/min, 0 mls/hr Dextrose/Sodium Chloride (D5-1/2ns -) 1,000 mls @ 42 mls/hr IV ASDIR [facility] Last Admin: 10/02/17 09:00 Dose: 42 mls/hr Insulin Aspart (Novolog Vial Sliding Scale -) 1 vial SQ Q6H [facility] PRN Reason: Protocol Last Admin: 10/02/17 05:39 Dose: Not Given Insulin Detemir (Levemir Vial) 10 units SQ [facility] Last Admin: 10/01/17 21:06 Dose: 10 units Metoprolol Tartrate (Lopressor Injection -) 5 mg IVPUSH Q4H PRN PRN Reason: HYPERTENSION Last Admin: 09/28/17 09:20 Dose: 5 mg Metoprolol Tartrate (Lopressor -) 25 mg PO BID [facility] Last Admin: 10/02/17 10:12 Dose: 25 mg Mupirocin (Bactroban Ointment (For Decolonization) -) 1 applic NS BID [facility] Stop: 10/05/17 12:59 Last Admin: 10/01/17 21:05 Dose: 1 applic Ondansetron HCl (Zofran Injection) 4 mg IVPUSH Q6H PRN PRN Reason: NAUSEA Pantoprazole Sodium (Protonix Iv) 40 mg IVPUSH DAILY [facility] Last Admin: 10/02/17 10:13 Dose: 40 mg Trazodone HCl (Desyrel -) 50 mg PO [facility] Last Admin: 10/01/17 21:04 Dose: 50 mg Gen: Trached, lightly sedated Heart: RRR Lung: scattered rhonchi Abd: soft, nontender Ext: + edema Laboratory Results - last 24 hr 10/01/17 10/01/17 10/01/17 01:48 07:01 10:15 WBC RBC Hgb Hct MCV MCH MCHC RDW Plt Count MPV Neutrophils % Lymphocytes % Monocytes % Eosinophils % Basophils % PT with INR INR PTT (Actin FS) Anticoagulation Therapy Puncture Site ABG pH ABG pCO2 at Pt Temp ABG pO2 at Pt Temp ABG HCO3 ABG O2 Sat (Measured) ABG O2 Content ABG Base Excess Addy Test O2 Delivery Device Oxygen Flow Rate Vent Mode Vent Rate Mechanical Rate PEEP Pressure Support Vent Sodium Potassium Chloride Carbon Dioxide Anion Gap BUN Creatinine Creat Clearance w eGFR POC Glucometer 393.38411 303.48194 Random Glucose Calcium Phosphorus Magnesium Total Bilirubin AST ALT Alkaline Phosphatase Total Protein Albumin Blood Type O POSITIVE Antibody Screen Negative Crossmatch See Detail 10/01/17 10/01/17 10/02/17 13:25 19:28 00:17 WBC RBC Hgb Hct MCV MCH MCHC RDW Plt Count MPV Neutrophils % Lymphocytes % Monocytes % Eosinophils % Basophils % PT with INR INR PTT (Actin FS) Anticoagulation Therapy Puncture Site ABG pH ABG pCO2 at Pt Temp ABG pO2 at Pt Temp ABG HCO3 ABG O2 Sat (Measured) ABG O2 Content ABG Base Excess Addy Test O2 Delivery Device Oxygen Flow Rate Vent Mode Vent Rate Mechanical Rate PEEP Pressure Support Vent Sodium Potassium Chloride Carbon Dioxide Anion Gap BUN Creatinine Creat Clearance w eGFR POC Glucometer 113.38597 122.64647 131.21054 Random Glucose Calcium Phosphorus Magnesium Total Bilirubin AST ALT Alkaline Phosphatase Total Protein Albumin Blood Type Antibody Screen Crossmatch 10/02/17 10/02/17 10/02/17 03:32 05:30 05:30 WBC 8.6 RBC 3.23 L Hgb 8.9 L D Hct 27.3 L MCV 84.4 MCH 27.5 MCHC 32.6 RDW 16.4 H Plt Count 98 L MPV 8.8 Neutrophils % 80.5 Lymphocytes % 14.0 D Monocytes % 3.3 L Eosinophils % 1.8 Basophils % 0.4 PT with INR 11.10 INR 0.98 PTT (Actin FS) 32.2 Anticoagulation Therapy Puncture Site ABG pH ABG pCO2 at Pt Temp ABG pO2 at Pt Temp ABG HCO3 ABG O2 Sat (Measured) ABG O2 Content ABG Base Excess Addy Test O2 Delivery Device Oxygen Flow Rate Vent Mode Vent Rate Mechanical Rate PEEP Pressure Support Vent Sodium Potassium Chloride Carbon Dioxide Anion Gap BUN Creatinine Creat Clearance w eGFR POC Glucometer 123.31921 Random Glucose Calcium Phosphorus Magnesium Total Bilirubin AST ALT Alkaline Phosphatase Total Protein Albumin Blood Type Antibody Screen Crossmatch 10/02/17 10/02/17 10/02/17 05:30 05:37 06:00 WBC RBC Hgb Hct MCV MCH MCHC RDW Plt Count MPV Neutrophils % Lymphocytes % Monocytes % Eosinophils % Basophils % PT with INR INR PTT (Actin FS) Anticoagulation Therapy No Result Required. Puncture Site Left radial ABG pH 7.45 ABG pCO2 at Pt Temp 37.0 ABG pO2 at Pt Temp 95.3 D ABG HCO3 25.0 ABG O2 Sat (Measured) 97.5 ABG O2 Content 14.1 L ABG Base Excess 1.5 Addy Test Positive O2 Delivery Device Mech vent Oxygen Flow Rate 35% Vent Mode A/c Vent Rate 12 Mechanical Rate No Result Required. PEEP 5.0 Pressure Support Vent 400 Sodium 149 H Potassium 4.2 Chloride 114 H Carbon Dioxide 27 Anion Gap 8 BUN 30 H Creatinine 1.5 H Creat Clearance w eGFR 35.42 POC Glucometer 92.35189 Random Glucose 84 Calcium 7.8 L Phosphorus 2.2 L Magnesium 2.1 Total Bilirubin 0.2 AST 20 ALT 27 Alkaline Phosphatase 73 Total Protein 4.4 L Albumin 1.3 L Blood Type Antibody Screen Crossmatch ASSESSMENT AND PLAN: Multiple Acute Embolic CVA Acute Hypoxic Respiratory Failure r/o Aspiration Pneumonia Atrial Fibrillation with RVR Metastatic Colon Ca to Lung Acute on Chronic Renal Failure Hyperkalemia HTN DM Hypercholesterolemia - For PEG placement - ABX per ID - Rate control - continue anticoagulation : Will need to discuss with Neuro / Cardiology retirement AC strategy - monitor urine output, creatinine - Lasix as needed - DVT/GI prophylaxis - continue ICU monitoring Dr Kaplan Critical care time spent in reviewing chart, evaluating patient and formulating plan 36 min
--- NOTE | 2017-10-02 14:06 | PN ---
Physical Exam: SUBJECTIVE: Patient seen and examined Patient underwent tracheostomy yesterday and PEG placement today. Vent Settings : Rate of 12, RV 400, FIO2 35%, PEEP 5. OBJECTIVE: Vital Signs Period Temp Pulse Resp BP Sys/Mcdaniel Pulse Ox Last 24 Hr 98.2 F-99.6 F 66-94 12-28 133-168/60-94 98-99 GENERAL: The patient is trached. Sedated HEAD: Healing L eye bruise. EYES: Bilaterally reacting pupils. Improving L eye hyphema ENT:NGT in place, tracheostomy in place NECK: Supple. LUNGS: Rhonchi throughout, HEART: S1, S2, RRR ABDOMEN: Soft, nontender, nondistended, normoactive bowel sounds, EXTREMITIES: 2+ pulses, warm, well-perfused, no edema, SCDs. NEUROLOGICAL: Sedated, trached PSYCH: drowsy Laboratory Results - last 24 hr 10/01/17 10/01/17 10/02/17 10:15 19:28 00:17 WBC RBC Hgb Hct MCV MCH MCHC RDW Plt Count MPV Neutrophils % Lymphocytes % Monocytes % Eosinophils % Basophils % PT with INR INR PTT (Actin FS) Anticoagulation Therapy Puncture Site ABG pH ABG pCO2 at Pt Temp ABG pO2 at Pt Temp ABG HCO3 ABG O2 Sat (Measured) ABG O2 Content ABG Base Excess Addy Test O2 Delivery Device Oxygen Flow Rate Vent Mode Vent Rate Mechanical Rate PEEP Pressure Support Vent Sodium Potassium Chloride Carbon Dioxide Anion Gap BUN Creatinine Creat Clearance w eGFR POC Glucometer 122.97896 131.19402 Random Glucose Calcium Phosphorus Magnesium Total Bilirubin AST ALT Alkaline Phosphatase Total Protein Albumin Blood Type O POSITIVE Antibody Screen Negative Crossmatch See Detail 10/02/17 10/02/17 10/02/17 03:32 05:30 05:30 WBC 8.6 RBC 3.23 L Hgb 8.9 L D Hct 27.3 L MCV 84.4 MCH 27.5 MCHC 32.6 RDW 16.4 H Plt Count 98 L MPV 8.8 Neutrophils % 80.5 Lymphocytes % 14.0 D Monocytes % 3.3 L Eosinophils % 1.8 Basophils % 0.4 PT with INR 11.10 INR 0.98 PTT (Actin FS) 32.2 Anticoagulation Therapy Puncture Site ABG pH ABG pCO2 at Pt Temp ABG pO2 at Pt Temp ABG HCO3 ABG O2 Sat (Measured) ABG O2 Content ABG Base Excess Addy Test O2 Delivery Device Oxygen Flow Rate Vent Mode Vent Rate Mechanical Rate PEEP Pressure Support Vent Sodium Potassium Chloride Carbon Dioxide Anion Gap BUN Creatinine Creat Clearance w eGFR POC Glucometer 123.65695 Random Glucose Calcium Phosphorus Magnesium Total Bilirubin AST ALT Alkaline Phosphatase Total Protein Albumin Blood Type Antibody Screen Crossmatch 10/02/17 10/02/17 10/02/17 05:30 05:37 06:00 WBC RBC Hgb Hct MCV MCH MCHC RDW Plt Count MPV Neutrophils % Lymphocytes % Monocytes % Eosinophils % Basophils % PT with INR INR PTT (Actin FS) Anticoagulation Therapy No Result Required. Puncture Site Left radial ABG pH 7.45 ABG pCO2 at Pt Temp 37.0 ABG pO2 at Pt Temp 95.3 D ABG HCO3 25.0 ABG O2 Sat (Measured) 97.5 ABG O2 Content 14.1 L ABG Base Excess 1.5 Addy Test Positive O2 Delivery Device Mech vent Oxygen Flow Rate 35% Vent Mode A/c Vent Rate 12 Mechanical Rate No Result Required. PEEP 5.0 Pressure Support Vent 400 Sodium 149 H Potassium 4.2 Chloride 114 H Carbon Dioxide 27 Anion Gap 8 BUN 30 H Creatinine 1.5 H Creat Clearance w eGFR 35.42 POC Glucometer 92.52802 Random Glucose 84 Calcium 7.8 L Phosphorus 2.2 L Magnesium 2.1 Total Bilirubin 0.2 AST 20 ALT 27 Alkaline Phosphatase 73 Total Protein 4.4 L Albumin 1.3 L Blood Type Antibody Screen Crossmatch Active Medications Generic Name Dose Route Start Last Admin Trade Name Freq PRN Reason Stop Dose Admin Artificial Tears 1 applic 09/15/17 22:00 10/02/17 10:16 Artificial Tears Ointment - OU 1 applic BID [facility] Administration Atorvastatin Calcium 20 mg 09/11/17 22:00 10/01/17 21:03 Lipitor - PO 20 mg HS [facility] Administration Chlorhexidine Gluconate 1 applic 09/15/17 22:00 10/01/17 21:05 Hibiclens For Decolonization - TP 1 applic HS [facility] Administration Ciprofloxacin 2 drop 09/16/17 14:45 10/02/17 10:16 Ciloxan 0.3% Eye Drops -- OS 2 drop Q2H [facility] Administration Digoxin 0.125 mg 09/24/17 10:00 10/02/17 10:14 Lanoxin Injection - IVPUSH 0.125 mg Q2D@1000 [facility] Administration Diltiazem HCl 90 mg 09/25/17 12:45 10/02/17 05:39 Cardizem - NGT 90 mg Q6HPO [facility] Administration Enoxaparin Sodium 80 mg 10/01/17 12:15 Lovenox - SQ ONCE [facility] Enoxaparin Sodium 80 mg 10/01/17 21:00 10/01/17 20:53 Lovenox - SQ 80 mg ONCE [facility] Administration Hydralazine HCl 10 mg 09/11/17 10:25 09/25/17 09:36 Apresoline Injection - IVPUSH 10 mg Q6H PRN Administration HYPERTENSION HEPARIN SOD,PORK IN 0.45% NACL 25,000 units in 500 mls @ 20 mls/hr 09/12/17 20 :00 10/01/17 03:00 Heparin-1/2ns 25,000 Units/500 IVPB 0 units/hr TITR [facility] 0 mls/hr Protocol Titration 1,000 UNITS/HR Propofol 1,000,000 mcg in 100 mls @ 2.484 mls/hr 09/28/17 17:45 10/02/17 08: 59 Diprivan - IVPB 0 mcg/kg/min TITR [facility] 0 mls/hr Protocol Titration 5 MCG/KG/MIN Dextrose/Sodium Chloride 1,000 mls @ 42 mls/hr 10/01/17 13:30 10/02/17 09:00 D5-1/2ns - IV 42 mls/hr ASDIR [facility] Administration Insulin Aspart 1 vial 09/27/17 00:00 10/02/17 05:39 Novolog Vial Sliding Scale - SQ Not Given Q6H [facility] Protocol Insulin Detemir 10 units 09/26/17 22:00 10/01/17 21:06 Levemir Vial SQ 10 units HS [facility] Administration Metoprolol Tartrate 5 mg 09/11/17 10:25 09/28/17 09:20 Lopressor Injection - IVPUSH 5 mg Q4H PRN Administration HYPERTENSION Metoprolol Tartrate 25 mg 09/25/17 12:30 10/02/17 10:12 Lopressor - PO 25 mg BID [facility] Administration Mupirocin 1 applic 09/30/17 13:00 10/01/17 21:05 Bactroban Ointment (For Decolonization) - NS 10/05/17 12:59 1 applic BID [facility] Administration Nystatin 1 applic 10/02/17 14:00 Mycostatin Ointment - TP BID [facility] Ondansetron HCl 4 mg 09/11/17 02:02 Zofran Injection IVPUSH Q6H PRN NAUSEA Pantoprazole Sodium 40 mg 09/23/17 14:15 10/02/17 10:13 Protonix Iv IVPUSH 40 mg DAILY [facility] Administration Potassium Phos/Sodium Phos 2 packet 10/02/17 11:45 Phos-Nak Packet - PO 10/02/17 11:46 ONCE ONE Trazodone HCl 50 mg 09/20/17 22:00 10/01/17 21:04 Desyrel - PO 50 mg HS [facility] Administration ASSESSMENT/PLAN: 62 yo F with PMHx of HTN, paroxysmal atrial fibrillation on apixaban, DM, HLD, CKD, GERD and colon CA s/p colectomy 2011 with mets to lung admitted to ICU for AMS now reintubated Neuro: Multiple acute strokes -Serial neuro checks -low threshold to repeat imaging for change in exam/ mental status -Continue light sedation with propofol drip -Trazadone 50 mg po hs CV: HTN, HLD, Afib on AC at at baseline -cardiology consulted -close hemodynamic monitoring -Digoxin 0.125 mg IV Q2D -diltiazem 90 mg NGT Q6hpo -Lipitor 20 mg po hs -Lopressor 25 mg po bid -Heparin drip-- Held Pulm: Acute hypoxic respiratory failure -Patient trached and peg tube now placed Heme/Onc: Colon Ca s/p resection now with mets to lung and likely brain on chemo , on heparin drip -Heparin Drip for AC-- currently held Renal: Creatinine 1.8 -monitor renal fxn -renally dose meds as indicated -Monitor urine output -Avoid nephrotoxic medications ID: Aspiration pneumonia -Zosyn q8h IV completed Endo: IDDM -follow BGM -sliding scale as needed FEN/GI -No IVF -Monitor -Tube feeds with free water PPX: -PPI -Heparin drip held CODE: FULL CODE HCP: Daughter does not have legal health care proxy paperwork. Nurse Buenrostro and Lyndsey Quiroz spoke to the patient's who has deffered to the daughter to make decisions for the patient. Visit type - Emergency Visit Emergency Visit: Yes ED Registration Date: 09/10/17 Care time: The patient presented to the Emergency Department on the above date and was hospitalized for further evaluation of their emergent condition. - New Patient This patient is new to me today: No - Critical Care Critical Care patient: Yes Total Critical Care Time (in minutes): 40 Critical Care Statement: The care of this patient involved high complexity decision making to prevent further life threatening deterioration of the patient 's condition and/or to evaluate & treat vital organ system(s) failure or risk of failure.
[2017-10-02] MEDS ORDERED: NAPH,MB-DB/K PH,MBDB POWDER PACKET PO ONE ×2 (14:30→16:45)
--- NOTE | 2017-10-02 15:18 | PN ---
Progress Note, Physician History of Present Illness: Pt seen and examined at bedside. She just had a peg tube placed. - Current Medication List Current Medications: Active Medications Artificial Tears (Artificial Tears Ointment -) 1 applic OU BID [facility] Last Admin: 10/02/17 10:16 Dose: 1 applic Atorvastatin Calcium (Lipitor -) 20 mg PO HS [facility] Last Admin: 10/01/17 21:03 Dose: 20 mg Chlorhexidine Gluconate (Hibiclens For Decolonization -) 1 applic TP HS [facility] Last Admin: 10/01/17 21:05 Dose: 1 applic Ciprofloxacin (Ciloxan 0.3% Eye Drops --) 2 drop OS Q2H [facility] Last Admin: 10/02/17 14:59 Dose: 2 drop Digoxin (Lanoxin Injection -) 0.125 mg IVPUSH Q2D@1000 [facility] Last Admin: 10/02/17 10:14 Dose: 0.125 mg Diltiazem HCl (Cardizem -) 90 mg NGT Q6HPO [facility] Last Admin: 10/02/17 14:57 Dose: 90 mg Enoxaparin Sodium (Lovenox -) 80 mg SQ ONCE [facility] Enoxaparin Sodium (Lovenox -) 80 mg SQ ONCE [facility] Last Admin: 10/01/17 20:53 Dose: 80 mg Hydralazine HCl (Apresoline Injection -) 10 mg IVPUSH Q6H PRN PRN Reason: HYPERTENSION Last Admin: 09/25/17 09:36 Dose: 10 mg HEPARIN SOD,PORK IN 0.45% NACL (Heparin-1/2ns 25,000 Units/500) 25,000 units in 500 mls @ 20 mls/hr IVPB TITR [facility]; 1,000 UNITS/HR PRN Reason: Protocol Last Titration: 10/01/17 03:00 Dose: 0 units/hr, 0 mls/hr Propofol (Diprivan -) 1,000,000 mcg in 100 mls @ 2.484 mls/hr IVPB TITR [facility]; 5 MCG/KG/MIN PRN Reason: Protocol Last Titration: 10/02/17 08:59 Dose: 0 mcg/kg/min, 0 mls/hr Dextrose/Sodium Chloride (D5-1/2ns -) 1,000 mls @ 42 mls/hr IV ASDIR [facility] Last Admin: 10/02/17 14:55 Dose: Not Given Insulin Aspart (Novolog Vial Sliding Scale -) 1 vial SQ Q6H [facility] PRN Reason: Protocol Last Admin: 10/02/17 13:30 Dose: Not Given Insulin Detemir (Levemir Vial) 10 units SQ [facility] Last Admin: 10/01/17 21:06 Dose: 10 units Metoprolol Tartrate (Lopressor Injection -) 5 mg IVPUSH Q4H PRN PRN Reason: HYPERTENSION Last Admin: 09/28/17 09:20 Dose: 5 mg Metoprolol Tartrate (Lopressor -) 25 mg PO BID [facility] Last Admin: 10/02/17 10:12 Dose: 25 mg Nystatin (Mycostatin Ointment -) 1 applic TP BID [facility] Ondansetron HCl (Zofran Injection) 4 mg IVPUSH Q6H PRN PRN Reason: NAUSEA Pantoprazole Sodium (Protonix Iv) 40 mg IVPUSH DAILY [facility] Last Admin: 10/02/17 10:13 Dose: 40 mg Trazodone HCl (Desyrel -) 50 mg PO [facility] Last Admin: 10/01/17 21:04 Dose: 50 mg - Objective Vital Signs: Vital Signs Temperature 98.6 F 10/02/17 11:45 Pulse Rate 76 10/02/17 12:30 Respiratory Rate 17 10/02/17 14:26 Blood Pressure 152/69 10/02/17 12:30 O2 Sat by Pulse Oximetry (%) 98 10/02/17 08:52 Constitutional: Yes: Calm Eyes: Yes: Conjunctiva Clear HENT: Yes: Atraumatic Neck: Yes: Supple Cardiovascular: Yes: S2 Respiratory: Yes: Rhonchi Gastrointestinal: Yes: Soft, Abdomen, Obese, Other (peg) Genitourinary: Yes: Mcdonald Present Musculoskeletal: Yes: Muscle Weakness Edema: Yes Neurological: Yes: Lethargy Labs: CBC, BMP 10/02/17 05:30 10/02/17 05:30 INR, PTT INR 0.98 (0.82-1.09) 10/02/17 05:30 Problem List - Problems (1) Brain metastasis Code(s): C79.31 - SECONDARY MALIGNANT NEOPLASM OF BRAIN (2) Headache Code(s): R51 - HEADACHE Qualifiers: Headache chronicity pattern: unspecified pattern Intractability: intractable (3) Metastatic colorectal cancer Code(s): C78.5 - SECONDARY MALIGNANT NEOPLASM OF LARGE INTESTINE AND RECTUM (4) SUSAN (acute kidney injury) Code(s): N17.9 - ACUTE KIDNEY FAILURE, UNSPECIFIED (5) Atrial fibrillation Code(s): I48.91 - UNSPECIFIED ATRIAL FIBRILLATION (6) Cancer, colon Code(s): C18.9 - MALIGNANT NEOPLASM OF COLON, UNSPECIFIED Qualifiers: Colon location: unspecified part of colon Qualified Code(s): C18.9 - Malignant neoplasm of colon, unspecified (7) Lung mass Code(s): R91.8 - OTHER NONSPECIFIC ABNORMAL FINDING OF LUNG FIELD Assessment/Plan Current Medications Generic Name Dose Route Start Last Admin Trade Name Freq PRN Reason Stop Dose Admin Artificial Tears 1 applic 09/15/17 22:00 10/02/17 10:16 Artificial Tears Ointment - OU 1 applic BID [facility] Administration Atorvastatin Calcium 20 mg 09/11/17 22:00 10/01/17 21:03 Lipitor - PO 20 mg HS [facility] Administration Chlorhexidine Gluconate 1 applic 09/15/17 22:00 10/01/17 21:05 Hibiclens For Decolonization - TP 1 applic HS [facility] Administration Ciprofloxacin 2 drop 09/16/17 14:45 10/02/17 14:59 Ciloxan 0.3% Eye Drops -- OS 2 drop Q2H [facility] Administration Digoxin 0.125 mg 09/24/17 10:00 10/02/17 10:14 Lanoxin Injection - IVPUSH 0.125 mg Q2D@1000 [facility] Administration Diltiazem HCl 90 mg 09/25/17 12:45 10/02/17 14:57 Cardizem - NGT 90 mg Q6HPO [facility] Administration Enoxaparin Sodium 80 mg 10/01/17 12:15 Lovenox - SQ ONCE [facility] Enoxaparin Sodium 80 mg 10/01/17 21:00 10/01/17 20:53 Lovenox - SQ 80 mg ONCE [facility] Administration Hydralazine HCl 10 mg 09/11/17 10:25 09/25/17 09:36 Apresoline Injection - IVPUSH 10 mg Q6H PRN Administration HYPERTENSION HEPARIN SOD,PORK IN 0.45% NACL 25,000 units in 500 mls @ 20 mls/hr 09/12/17 20 :00 10/01/17 03:00 Heparin-1/2ns 25,000 Units/500 IVPB 0 units/hr TITR [facility] 0 mls/hr Protocol Titration 1,000 UNITS/HR Propofol 1,000,000 mcg in 100 mls @ 2.484 mls/hr 09/28/17 17:45 10/02/17 08: 59 Diprivan - IVPB 0 mcg/kg/min TITR [facility] 0 mls/hr Protocol Titration 5 MCG/KG/MIN Dextrose/Sodium Chloride 1,000 mls @ 42 mls/hr 10/01/17 13:30 10/02/17 14:55 D5-1/2ns - IV Not Given ASDIR [facility] Insulin Aspart 1 vial 09/27/17 00:00 10/02/17 13:30 Novolog Vial Sliding Scale - SQ Not Given Q6H [facility] Protocol Insulin Detemir 10 units 09/26/17 22:00 10/01/17 21:06 Levemir Vial SQ 10 units HS [facility] Administration Metoprolol Tartrate 5 mg 09/11/17 10:25 09/28/17 09:20 Lopressor Injection - IVPUSH 5 mg Q4H PRN Administration HYPERTENSION Metoprolol Tartrate 25 mg 09/25/17 12:30 10/02/17 10:12 Lopressor - PO 25 mg BID [facility] Administration Nystatin 1 applic 10/02/17 15:00 Mycostatin Ointment - TP BID [facility] Ondansetron HCl 4 mg 09/11/17 02:02 Zofran Injection IVPUSH Q6H PRN NAUSEA Pantoprazole Sodium 40 mg 09/23/17 14:15 10/02/17 10:13 Protonix Iv IVPUSH 40 mg DAILY [facility] Administration Trazodone HCl 50 mg 09/20/17 22:00 10/01/17 21:04 Desyrel - PO 50 mg HS [facility] Administration Impression 1. CKD 2. SUSAN 3. DM 4. htn 5. chol 6. chemo port malfunction 7. a-fib 8. lung mass 9. proteinuria 10. adenocarcinoma 11. CVA 12. acute resp failure 13. hyperkalemia 14. hypernatremia Plan - resume feeds once cleared by GI - renal function is stable - pt s/p trache and peg - monitor renal function - monitor sodium - will follow Dr Llanos
[2017-10-02] MEDS ORDERED: PT OWN MED DRAWER 7, Y5N ONE (21:54)
[2017-10-02] MEDS: traZODone HCL 50 MG TABLET (FP) PO SCH (21:55)
[2017-10-02] MEDS: ATORVASTATIN CA 20 MG TABLET (FP) PO SCH (21:55)
[2017-10-02] MEDS: CHLORHEXIDINE GLUCONATE 4% CLEANSER FOR DECOLONIZATION TP SCH (22:00)
[2017-10-02] MEDS ORDERED: ENOXAPARIN NA (PORCINE) 80 MG/0.8 ML DISP.SYRIN SQ ONE (23:45)
[2017-10-03] MEDS: INSULIN SLIDING SCALE (NOVOLOG) 1 VIAL SQ SCH ×4 (00:07→17:17)
[2017-10-03] MEDS ORDERED: dilTIAZem HCL 30 MG TABLET (FP) ONE ×3 (00:16→17:53)
[2017-10-03] MEDS: DILTIAZEM 60 MG, DILTIAZEM 30 MG NGT SCH ×4 (00:16→17:55)
[2017-10-03] MEDS ORDERED: dilTIAZem HCL 60 MG TABLET (FP) ONE ×3 (00:16→17:52)
[2017-10-03] MEDS: CIPROFLOXACIN 0.3% EYE DROPS 5 ML BOTTLE OS SCH ×12 (00:45→22:19)
[2017-10-03 06:10] LABS: BASO % 0.8 % (0-2.0); EOS % 1.3 % (0-4.5); HEMATOCRIT 25.6 % (32.4-45.2); HEMOGLOBIN 8.5 GM/dL (10.7-15.3); LYMPH % 17.4 % (8-40); MCH 28.1 pg (25.7-33.7); MEAN CELL VOLUME 85.2 fl (80-96); MEAN PLT VOLUME 9.2 fl (7.5-11.1); MONO % 4.9 % (3.8-10.2); NEUT % 75.6 % (42.8-82.8); RBC 3.01 M/mm3 (3.60-5.2); RDW 16.3 % (11.6-15.6); WHITE BLOOD COUNT 6.3 K/mm3 (4.0-10.0)
[2017-10-03] MEDS: ACETAMINOPHEN 650 MG/20.3 ML ORAL SOLUTION (CUPS) PEG PRN ×2 (06:36→22:18)
[2017-10-03 06:37] LABS: ALBUMIN 1.3 g/dl (3.4-5.0); ALK PHOS 70 U/L (45-117); ANION GAP 11 (8-16); BILIRUBIN,TOTAL 0.3 mg/dL (0.2-1.0); BLOOD UREA NITROGEN 19 mg/dL (7-18); CALCIUM 7.2 mg/dL (8.5-10.1); CHLORIDE 114 mmol/L (98-107); CO2 22 mmol/L (21-32); CREATININE 1.2 mg/dL (0.55-1.02); GLUCOSE,RANDOM 176 mg/dL (74-106); PHOSPHOROUS 2.4 mg/dL (2.5-4.9); SGPT/ALT 20 U/L (12-78); SODIUM 147 mmol/L (136-145); TOT PROT 4.4 g/dl (6.4-8.2)
[2017-10-03] MEDS: DEXTROSE 5%-0.45% SALINE 1,000 ML IV SCH ×2 (06:59→14:00)
[2017-10-03 07:53] LABS: MAGNESIUM 1.7 mg/dL (1.8-2.4); POTASSIUM 3.8 mmol/L (3.5-5.1); SGOT/AST 25 U/L (15-37)
[2017-10-03] MEDS: METOPROLOL TARTRATE 25 MG TABLET (FP) PO SCH ×2 (09:57→22:19)
[2017-10-03] MEDS: PANTOPRAZOLE SODIUM 40 MG VIAL IVPUSH SCH (09:57)
--- NOTE | 2017-10-03 10:00 | PN ---
Progress Note, Physician - Current Medication List Current Medications: Active Medications Acetaminophen (Tylenol Oral Solution -) 650 mg PEG Q6H PRN PRN Reason: FEVER Last Admin: 10/03/17 06:36 Dose: 650 mg Artificial Tears (Artificial Tears Ointment -) 1 applic OU BID [facility] Last Admin: 10/02/17 22:00 Dose: 1 applic Atorvastatin Calcium (Lipitor -) 20 mg PO HS [facility] Last Admin: 10/02/17 21:55 Dose: 20 mg Chlorhexidine Gluconate (Hibiclens For Decolonization -) 1 applic TP HS [facility] Last Admin: 10/02/17 22:00 Dose: 1 applic Ciprofloxacin (Ciloxan 0.3% Eye Drops --) 2 drop OS Q2H [facility] Last Admin: 10/03/17 06:21 Dose: 2 drop Digoxin (Lanoxin Injection -) 0.125 mg IVPUSH Q2D@1000 [facility] Last Admin: 10/02/17 10:14 Dose: 0.125 mg Diltiazem HCl 60 mg/ Diltiazem (HCl 30 mg) 90 mg NGT Q6HPO [facility] Last Admin: 10/03/17 06:34 Dose: 90 mg Hydralazine HCl (Apresoline Injection -) 10 mg IVPUSH Q6H PRN PRN Reason: HYPERTENSION Last Admin: 09/25/17 09:36 Dose: 10 mg HEPARIN SOD,PORK IN 0.45% NACL (Heparin-1/2ns 25,000 Units/500) 25,000 units in 500 mls @ 20 mls/hr IVPB TITR [facility]; 1,000 UNITS/HR PRN Reason: Protocol Last Titration: 10/01/17 03:00 Dose: 0 units/hr, 0 mls/hr Propofol (Diprivan -) 1,000,000 mcg in 100 mls @ 2.484 mls/hr IVPB TITR [facility]; 5 MCG/KG/MIN PRN Reason: Protocol Last Titration: 10/02/17 08:59 Dose: 0 mcg/kg/min, 0 mls/hr Dextrose/Sodium Chloride (D5-1/2ns -) 1,000 mls @ 42 mls/hr IV ASDIR [facility] Last Admin: 10/03/17 06:59 Dose: 42 mls/hr Insulin Aspart (Novolog Vial Sliding Scale -) 1 vial SQ Q6H [facility] PRN Reason: Protocol Last Admin: 10/03/17 07:03 Dose: 4 units Insulin Detemir (Levemir Vial) 10 units SQ HS [facility] Last Admin: 10/01/17 21:06 Dose: 10 units Metoprolol Tartrate (Lopressor Injection -) 5 mg IVPUSH Q4H PRN PRN Reason: HYPERTENSION Last Admin: 09/28/17 09:20 Dose: 5 mg Metoprolol Tartrate (Lopressor -) 25 mg PO BID [facility] Last Admin: 10/02/17 21:55 Dose: 25 mg Nystatin (Mycostatin Ointment -) 1 applic TP BID [facility] Last Admin: 10/03/17 00:00 Dose: 1 applic Ondansetron HCl (Zofran Injection) 4 mg IVPUSH Q6H PRN PRN Reason: NAUSEA Pantoprazole Sodium (Protonix Iv) 40 mg IVPUSH DAILY [facility] Last Admin: 10/02/17 10:13 Dose: 40 mg Trazodone HCl (Desyrel -) 50 mg PO [facility] Last Admin: 10/02/17 21:55 Dose: 50 mg - Objective Vital Signs: Vital Signs Temperature 100.8 F H 10/03/17 06:00 Pulse Rate 75 10/03/17 08:10 Respiratory Rate 14 10/03/17 08:10 Blood Pressure 122/56 10/03/17 08:00 O2 Sat by Pulse Oximetry (%) 100 10/03/17 08:10 Labs: CBC, BMP 10/03/17 05:15 10/03/17 05:15 INR, PTT INR 0.98 (0.82-1.09) 10/02/17 05:30 Problem List - Problems (1) Respiratory failure Code(s): J96.90 - RESPIRATORY FAILURE, UNSP, UNSP W HYPOXIA OR HYPERCAPNIA (2) Brain metastasis Code(s): C79.31 - SECONDARY MALIGNANT NEOPLASM OF BRAIN (3) CVA (cerebral vascular accident) Code(s): I63.9 - CEREBRAL INFARCTION, UNSPECIFIED (4) Metastatic colorectal cancer Code(s): C78.5 - SECONDARY MALIGNANT NEOPLASM OF LARGE INTESTINE AND RECTUM (5) Atrial fibrillation Code(s): I48.91 - UNSPECIFIED ATRIAL FIBRILLATION (6) Diabetes Code(s): E11.9 - TYPE 2 DIABETES MELLITUS WITHOUT COMPLICATIONS Qualifiers: Diabetes mellitus type: type 2 (7) Hypernatremia Code(s): E87.0 - HYPEROSMOLALITY AND HYPERNATREMIA Assessment/Plan - Problems (1) Respiratory failure Assessment/Plan: on vent sedated tracheostomy 10/01 Code(s): J96.90 - RESPIRATORY FAILURE, UNSP, UNSP W HYPOXIA OR HYPERCAPNIA (2) Pneumonia Assessment/Plan: iv zosyn s/p 8 day course abx stopped Code(s): J18.9 - PNEUMONIA, UNSPECIFIED ORGANISM (3) Atrial fibrillation Assessment/Plan: digoxin,cardizem and metoprolol Code(s): I48.91 - UNSPECIFIED ATRIAL FIBRILLATION (4) Anemia Assessment/Plan: stool occult blood ppi iron panel GI follow up noted Code(s): D64.9 - ANEMIA, UNSPECIFIED (5) Diabetes Assessment/Plan: insulin bgm ok for now Code(s): E11.9 - TYPE 2 DIABETES MELLITUS WITHOUT COMPLICATIONS Qualifiers: Diabetes mellitus type: type 2 (6) CVA (cerebral vascular accident) Assessment/Plan: S/p multiple acute embolic infarcts --intubated- s/p trach --s/p PEG --on lovenox--to eliquis Code(s): I63.9 - CEREBRAL INFARCTION, UNSPECIFIED
[2017-10-03] MEDS: MINERAL OIL/PETROLATUM,WHITE 3.5 GM TUBE OU SCH ×2 (10:07→22:18)
[2017-10-03] MEDS: NYSTATIN 100000 UNIT/GM TOPICAL OINTMENT 15 GM TUBE TP SCH ×3 (10:09→22:18)
--- NOTE | 2017-10-03 11:02 | PN ---
Progress Note (short form) - Note Progress Note: Anesthesiology Post-op POD#1 s/p PEG placement under GA. Pt. stable with tracheostomy in place. Sedation weaned. VSS. Continue current care as per ICU team.
[2017-10-03] MEDS ORDERED: MAGNESIUM SULF 50% (8.12 MEQ/2 ML-1 GM VIAL) IVPB ONE (11:07)
[2017-10-03] MEDS ORDERED: NAPH,MB-DB/K PH,MBDB POWDER PACKET PO ONE (11:30)
[2017-10-03] MEDS ORDERED: MAGNESIUM 1GM/D5W - 1 GM/100 ML IVPB IVPB ONE (12:00)
--- NOTE | 2017-10-03 12:08 | PN ---
Teaching Attending Note Name of Resident: Carson Lopez ATTENDING PHYSICIAN STATEMENT I saw and evaluated the patient. I reviewed the resident's note and discussed the case with the resident. I agree with the resident's findings and plan as documented. SUBJECTIVE: Patient seen and examined in the ICU. AC Mode of vent via Trach. Drowsy but arousable. No pressors. CXR: No gross change in bilateral pleural effusions Intake & Output 09/30/17 10/01/17 10/02/17 10/03/17 23:59 23:59 23:59 23:59 Intake Total 1703 1358 944 564 Output Total 8729 836 9613 300 Balance 353 508 -106 264 Weight 185 lb 5 oz 185 lb 1 oz 184 lb 1 oz 182 lb 15.739 oz Last Vital Signs Temp Pulse Resp BP Pulse Ox 100.8 F H 77 12 122/56 93 L 10/03/17 06:00 10/03/17 11:29 10/03/17 11:29 10/03/17 08:00 10/03/17 11:29 Active Medications Acetaminophen (Tylenol Oral Solution -) 650 mg PEG Q6H PRN PRN Reason: FEVER Last Admin: 10/03/17 06:36 Dose: 650 mg Apixaban (Eliquis -) 5 mg PO BID [facility] Artificial Tears (Artificial Tears Ointment -) 1 applic OU BID [facility] Last Admin: 10/03/17 10:07 Dose: 1 applic Atorvastatin Calcium (Lipitor -) 20 mg PO [facility] Last Admin: 10/02/17 21:55 Dose: 20 mg Chlorhexidine Gluconate (Hibiclens For Decolonization -) 1 applic TP [facility] Last Admin: 10/02/17 22:00 Dose: 1 applic Ciprofloxacin (Ciloxan 0.3% Eye Drops --) 2 drop OS Q2H [facility] Last Admin: 10/03/17 10:00 Dose: 2 drop Digoxin (Lanoxin Injection -) 0.125 mg IVPUSH Q2D@1000 [facility] Last Admin: 10/02/17 10:14 Dose: 0.125 mg Diltiazem HCl 60 mg/ Diltiazem (HCl 30 mg) 90 mg NGT Q6HPO [facility] Last Admin: 10/03/17 06:34 Dose: 90 mg Hydralazine HCl (Apresoline Injection -) 10 mg IVPUSH Q6H PRN PRN Reason: HYPERTENSION Last Admin: 09/25/17 09:36 Dose: 10 mg Dextrose/Sodium Chloride (D5-1/2ns -) 1,000 mls @ 42 mls/hr IV ASDIR [facility] Last Admin: 10/03/17 06:59 Dose: 42 mls/hr Magnesium Sulfate/Dextrose (Magnesium 1gm/D5w -) 1 gm in 100 mls @ 100 mls/hr IVPB ONCE ONE Stop: 10/03/17 12:59 Insulin Aspart (Novolog Vial Sliding Scale -) 1 vial SQ Q6H [facility] PRN Reason: Protocol Last Admin: 10/03/17 07:03 Dose: 4 units Insulin Detemir (Levemir Vial) 10 units SQ [facility] Last Admin: 10/01/17 21:06 Dose: 10 units Metoprolol Tartrate (Lopressor Injection -) 5 mg IVPUSH Q4H PRN PRN Reason: HYPERTENSION Last Admin: 09/28/17 09:20 Dose: 5 mg Metoprolol Tartrate (Lopressor -) 25 mg PO BID [facility] Last Admin: 10/03/17 09:57 Dose: 25 mg Nystatin (Mycostatin Ointment -) 1 applic TP BID [facility] Last Admin: 10/03/17 10:09 Dose: 1 applic Ondansetron HCl (Zofran Injection) 4 mg IVPUSH Q6H PRN PRN Reason: NAUSEA Ranitidine HCl (Zantac -) 150 mg PO BID [facility] Trazodone HCl (Desyrel -) 50 mg PO [facility] Last Admin: 10/02/17 21:55 Dose: 50 mg Gen: Trached, drowsy Heart: RRR Lung: scattered rhonchi Abd: soft, nontender Ext: + edema Laboratory Results - last 24 hr 10/02/17 10/02/17 10/03/17 14:19 17:23 00:05 WBC RBC Hgb Hct MCV MCH MCHC RDW MPV Neutrophils % Lymphocytes % Monocytes % Eosinophils % Basophils % Sodium Potassium Chloride Carbon Dioxide Anion Gap BUN Creatinine Creat Clearance w eGFR POC Glucometer 129.53814 168.66115 229.86271 Random Glucose Calcium Phosphorus Magnesium Total Bilirubin AST ALT Alkaline Phosphatase Total Protein Albumin 10/03/17 10/03/17 10/03/17 05:15 05:15 06:52 WBC 6.3 RBC 3.01 L Hgb 8.5 L Hct 25.6 L MCV 85.2 MCH 28.1 MCHC 33.0 RDW 16.3 H MPV 9.2 Neutrophils % 75.6 Lymphocytes % 17.4 D Monocytes % 4.9 Eosinophils % 1.3 Basophils % 0.8 Sodium 147 H Potassium 3.8 Chloride 114 H Carbon Dioxide 22 Anion Gap 11 BUN 19 H Creatinine 1.2 H Creat Clearance w eGFR 45.83 POC Glucometer 235.05169 Random Glucose 176 H Calcium 7.2 L Phosphorus 2.4 L Magnesium 1.7 L Total Bilirubin 0.3 D AST 25 ALT 20 Alkaline Phosphatase 70 Total Protein 4.4 L Albumin 1.3 L 10/03/17 11:33 WBC RBC Hgb Hct MCV MCH MCHC RDW MPV Neutrophils % Lymphocytes % Monocytes % Eosinophils % Basophils % Sodium Potassium Chloride Carbon Dioxide Anion Gap BUN Creatinine Creat Clearance w eGFR POC Glucometer 189.20732 Random Glucose Calcium Phosphorus Magnesium Total Bilirubin AST ALT Alkaline Phosphatase Total Protein Albumin ASSESSMENT AND PLAN: Multiple Acute Embolic CVA Acute Hypoxic Respiratory Failure r/o Aspiration Pneumonia Atrial Fibrillation with RVR Metastatic Colon Ca to Lung Acute on Chronic Renal Failure Hyperkalemia HTN DM Hypercholesterolemia - Enteral feeds - ABX per ID - Rate control - continue anticoagulation : Will 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
[2017-10-03 12:29] LABS: PLATELET COUNT 82 K/MM3 (134-434)
[2017-10-03 12:31] LABS: PLATELET ESTIMATE DECREASED
--- NOTE | 2017-10-03 13:57 | PN ---
Physical Exam: SUBJECTIVE: Patient seen and examined Patient had PEG tube. Vent Settings: Rate of 12, RV 400, FIO2 35%, PEEP 5. OBJECTIVE: Vital Signs Period Temp Pulse Resp BP Sys/Mcdaniel Pulse Ox Last 24 Hr 98 F-100.8 F 65-97 09-02 120-175/56-85 93-100 GENERAL: The patient is trached. Sedated HEAD: Healing L eye bruise. EYES: Bilaterally reacting pupils. Improving L eye hyphema ENT:NGT in place, tracheostomy in place NECK: Supple. LUNGS: Rhonchi throughout, HEART: S1, S2, RRR ABDOMEN: Soft, nontender, nondistended, normoactive bowel sounds, EXTREMITIES: 2+ pulses, warm, well-perfused, no edema, SCDs. NEUROLOGICAL: Sedated, trached PSYCH: drowsy Laboratory Results - last 24 hr 10/02/17 10/02/17 10/03/17 14:19 17:23 00:05 WBC RBC Hgb Hct MCV MCH MCHC RDW Plt Count MPV Neutrophils % Lymphocytes % Monocytes % Eosinophils % Basophils % Platelet Estimate Platelet Comment Sodium Potassium Chloride Carbon Dioxide Anion Gap BUN Creatinine Creat Clearance w eGFR POC Glucometer 129.62245 168.03560 229.40890 Random Glucose Calcium Phosphorus Magnesium Total Bilirubin AST ALT Alkaline Phosphatase Total Protein Albumin 10/03/17 10/03/17 10/03/17 05:15 05:15 06:52 WBC 6.3 RBC 3.01 L Hgb 8.5 L Hct 25.6 L MCV 85.2 MCH 28.1 MCHC 33.0 RDW 16.3 H Plt Count 82 L MPV 9.2 Neutrophils % 75.6 Lymphocytes % 17.4 D Monocytes % 4.9 Eosinophils % 1.3 Basophils % 0.8 Platelet Estimate Decreased Platelet Comment No clumping noted Sodium 147 H Potassium 3.8 Chloride 114 H Carbon Dioxide 22 Anion Gap 11 BUN 19 H Creatinine 1.2 H Creat Clearance w eGFR 45.83 POC Glucometer 235.75154 Random Glucose 176 H Calcium 7.2 L Phosphorus 2.4 L Magnesium 1.7 L Total Bilirubin 0.3 D AST 25 ALT 20 Alkaline Phosphatase 70 Total Protein 4.4 L Albumin 1.3 L 10/03/17 11:33 WBC RBC Hgb Hct MCV MCH MCHC RDW Plt Count MPV Neutrophils % Lymphocytes % Monocytes % Eosinophils % Basophils % Platelet Estimate Platelet Comment Sodium Potassium Chloride Carbon Dioxide Anion Gap BUN Creatinine Creat Clearance w eGFR POC Glucometer [phone] Random Glucose Calcium Phosphorus Magnesium Total Bilirubin AST ALT Alkaline Phosphatase Total Protein Albumin Active Medications Generic Name Dose Route Start Last Admin Trade Name Luis Albertoq PRN Reason Stop Dose Admin Acetaminophen 650 mg 10/03/17 06:23 10/03/17 06:36 Tylenol Oral Solution - PEG 650 mg Q6H PRN Administration FEVER Apixaban 5 mg 10/03/17 22:00 Eliquis - PO BID [facility] Artificial Tears 1 applic 09/15/17 22:00 10/03/17 10:07 Artificial Tears Ointment - OU 1 applic BID [facility] Administration Atorvastatin Calcium 20 mg 09/11/17 22:00 10/02/17 21:55 Lipitor - PO 20 mg HS [facility] Administration Chlorhexidine Gluconate 1 applic 09/15/17 22:00 10/02/17 22:00 Hibiclens For Decolonization - TP 1 applic HS [facility] Administration Ciprofloxacin 2 drop 09/16/17 14:45 10/03/17 10:45 Ciloxan 0.3% Eye Drops -- OS 2 drop Q2H [facility] Administration Digoxin 0.125 mg 09/24/17 10:00 10/02/17 10:14 Lanoxin Injection - IVPUSH 0.125 mg Q2D@1000 [facility] Administration Diltiazem HCl 60 mg/ Diltiazem 90 mg 10/03/17 00:15 10/03/17 13:08 HCl 30 mg NGT Not Given Q6HPO [facility] Hydralazine HCl 10 mg 09/11/17 10:25 09/25/17 09:36 Apresoline Injection - IVPUSH 10 mg Q6H PRN Administration HYPERTENSION Dextrose/Sodium Chloride 1,000 mls @ 42 mls/hr 10/01/17 13:30 10/03/17 06:59 D5-1/2ns - IV 42 mls/hr ASD[facility] Administration Insulin Aspart 1 vial 09/27/17 00:00 10/03/17 12:00 Novolog Vial Sliding Scale - SQ 2 units Q6H [facility] Administration Protocol Insulin Detemir 10 units 09/26/17 22:00 10/01/17 21:06 Levemir Vial SQ 10 units HS [facility] Administration Metoprolol Tartrate 5 mg 09/11/17 10:09/28/17 09:20 Lopressor Injection - IVPUSH 5 mg Q4H PRN Administration HYPERTENSION Metoprolol Tartrate 25 mg 09/25/17 12:30 10/03/17 09:57 Lopressor - PO 25 mg BID [facility] Administration Nystatin 1 applic 10/02/17 15:00 10/03/17 10:09 Mycostatin Ointment - TP 1 applic BID [facility] Administration Ondansetron HCl 4 mg 09/11/17 02:02 Zofran Injection IVPUSH Q6H PRN NAUSEA Ranitidine HCl 150 mg 10/03/17 22:00 Zantac - PO BID [facility] Trazodone HCl 50 mg 09/20/17 22:00 10/02/17 21:55 Desyrel - PO 50 mg HS [facility] Administration ASSESSMENT/PLAN: 62 yo F with PMHx of HTN, paroxysmal atrial fibrillation on apixaban, DM, HLD, CKD, GERD and colon CA s/p colectomy 2011 with mets to lung admitted to ICU for AMS now reintubated Neuro: Multiple acute strokes -Serial neuro checks -low threshold to repeat imaging for change in exam/ mental status -Continue light sedation with propofol drip -Trazadone 50 mg po hs CV: HTN, HLD, Afib on AC at at baseline -cardiology consulted -close hemodynamic monitoring -Digoxin 0.125 mg IV Q2D -diltiazem 90 mg NGT Q6hpo -Lipitor 20 mg po hs -Lopressor 25 mg po bid -Eliquis 5 mg po bid switched from heparin drip Pulm: Acute hypoxic respiratory failure -Patient trached and peg tube now placed Heme/Onc: Colon Ca s/p resection now with mets to lung and likely brain on chemo , on heparin drip -Currently switched to eliquis 5 mg from heparin drip Renal: -monitor renal fxn -renally dose meds as indicated -Monitor urine output -Avoid nephrotoxic medications ID: Aspiration pneumonia -Zosyn q8h IV completed Endo: IDDM -follow BGM -sliding scale as needed FEN/GI -No IVF -Monitor -Tube feeds with free water PPX: -Zantac -Eliquis 5mg po BID, heparin drip stopped Dispo: Transfer to [address] [place] [address] CODE: FULL CODE HCP: Daughter does not have legal health care proxy paperwork. Nurse Buenrostro and Lyndsey Quiroz spoke to the patient's who has deffered to the daughter to make decisions for the patient. Visit type - Emergency Visit Emergency Visit: Yes ED Registration Date: 09/10/17 Care time: The patient presented to the Emergency Department on the above date and was hospitalized for further evaluation of their emergent condition. - New Patient This patient is new to me today: No - Critical Care Critical Care patient: Yes Total Critical Care Time (in minutes): 35 Critical Care Statement: The care of this patient involved high complexity decision making to prevent further life threatening deterioration of the patient 's condition and/or to evaluate & treat vital organ system(s) failure or risk of failure.
--- NOTE | 2017-10-03 15:48 | PN ---
Progress Note (short form) - Note Progress Note: Thoracic: s/p trach and peg alert follows commands doing ot/pt dispo planning hopeful for more neurologic recovery, ? more definitive care of metastatic colorectal cancer
--- NOTE | 2017-10-03 16:15 | PN ---
Progress Note, Physician History of Present Illness: Pt seen and examined at bedside. She is s/p trache and peg. She is drowsy this morning. Daughter at bedside and care was discussed with her. - Current Medication List Current Medications: Active Medications Acetaminophen (Tylenol Oral Solution -) 650 mg PEG Q6H PRN PRN Reason: FEVER Last Admin: 10/03/17 06:36 Dose: 650 mg Apixaban (Eliquis -) 5 mg PO BID [facility] Artificial Tears (Artificial Tears Ointment -) 1 applic OU BID [facility] Last Admin: 10/03/17 10:07 Dose: 1 applic Atorvastatin Calcium (Lipitor -) 20 mg PO [facility] Last Admin: 10/02/17 21:55 Dose: 20 mg Chlorhexidine Gluconate (Hibiclens For Decolonization -) 1 applic TP [facility] Last Admin: 10/02/17 22:00 Dose: 1 applic Ciprofloxacin (Ciloxan 0.3% Eye Drops --) 2 drop OS Q2H [facility] Last Admin: 10/03/17 12:45 Dose: 2 drop Digoxin (Lanoxin Injection -) 0.125 mg IVPUSH Q2D@1000 [facility] Last Admin: 10/02/17 10:14 Dose: 0.125 mg Diltiazem HCl 60 mg/ Diltiazem (HCl 30 mg) 90 mg NGT Q6HPO [facility] Last Admin: 10/03/17 13:08 Dose: Not Given Hydralazine HCl (Apresoline Injection -) 10 mg IVPUSH Q6H PRN PRN Reason: HYPERTENSION Last Admin: 09/25/17 09:36 Dose: 10 mg Insulin Aspart (Novolog Vial Sliding Scale -) 1 vial SQ Q6H [facility] PRN Reason: Protocol Last Admin: 10/03/17 12:00 Dose: 2 units Insulin Detemir (Levemir Vial) 10 units SQ [facility] Last Admin: 10/01/17 21:06 Dose: 10 units Metoprolol Tartrate (Lopressor Injection -) 5 mg IVPUSH Q4H PRN PRN Reason: HYPERTENSION Last Admin: 09/28/17 09:20 Dose: 5 mg Metoprolol Tartrate (Lopressor -) 25 mg PO BID [facility] Last Admin: 10/03/17 09:57 Dose: 25 mg Nystatin (Mycostatin Ointment -) 1 applic TP BID [facility] Last Admin: 10/03/17 10:09 Dose: 1 applic Ondansetron HCl (Zofran Injection) 4 mg IVPUSH Q6H PRN PRN Reason: NAUSEA Ranitidine HCl (Zantac -) 150 mg PO BID [facility] Trazodone HCl (Desyrel -) 50 mg PO HS [facility] Last Admin: 10/02/17 21:55 Dose: 50 mg - Objective Vital Signs: Vital Signs Temperature 100.6 F H 10/03/17 10:00 Pulse Rate 78 10/03/17 12:00 Respiratory Rate 15 10/03/17 14:27 Blood Pressure 126/65 10/03/17 12:00 O2 Sat by Pulse Oximetry (%) 93 L 10/03/17 11:29 Constitutional: Yes: Calm Eyes: Yes: Conjunctiva Clear Neck: Yes: Other (trache) Cardiovascular: Yes: S1, S2 Respiratory: Yes: Mechanically Ventilated Gastrointestinal: Yes: Soft, Other (peg) Genitourinary: Yes: Mcdonald Present Musculoskeletal: Yes: Muscle Weakness Edema: Yes Edema: LLE: Trace, RLE: Trace Neurological: Yes: Other (responds to commands) Labs: CBC, BMP 10/03/17 05:15 10/03/17 05:15 INR, PTT INR 0.98 (0.82-1.09) 10/02/17 05:30 - ....Imaging Chest X-ray: Report Reviewed Problem List - Problems (1) Brain metastasis Code(s): C79.31 - SECONDARY MALIGNANT NEOPLASM OF BRAIN (2) Headache Code(s): R51 - HEADACHE Qualifiers: Headache chronicity pattern: unspecified pattern Intractability: intractable (3) Metastatic colorectal cancer Code(s): C78.5 - SECONDARY MALIGNANT NEOPLASM OF LARGE INTESTINE AND RECTUM (4) SUSAN (acute kidney injury) Code(s): N17.9 - ACUTE KIDNEY FAILURE, UNSPECIFIED (5) Atrial fibrillation Code(s): I48.91 - UNSPECIFIED ATRIAL FIBRILLATION (6) Cancer, colon Code(s): C18.9 - MALIGNANT NEOPLASM OF COLON, UNSPECIFIED Qualifiers: Colon location: unspecified part of colon Qualified Code(s): C18.9 - Malignant neoplasm of colon, unspecified (7) Lung mass Code(s): R91.8 - OTHER NONSPECIFIC ABNORMAL FINDING OF LUNG FIELD Assessment/Plan Current Medications Generic Name Dose Route Start Last Admin Trade Name Freq PRN Reason Stop Dose Admin Acetaminophen 650 mg 10/03/17 06:23 10/03/17 06:36 Tylenol Oral Solution - PEG 650 mg Q6H PRN Administration FEVER Apixaban 5 mg 10/03/17 22:00 Eliquis - PO BID [facility] Artificial Tears 1 applic 09/15/17 22:00 10/03/17 10:07 Artificial Tears Ointment - OU 1 applic BID [facility] Administration Atorvastatin Calcium 20 mg 09/11/17 22:00 10/02/17 21:55 Lipitor - PO 20 mg HS [facility] Administration Chlorhexidine Gluconate 1 applic 09/15/17 22:00 10/02/17 22:00 Hibiclens For Decolonization - TP 1 applic HS [facility] Administration Ciprofloxacin 2 drop 09/16/17 14:45 10/03/17 12:45 Ciloxan 0.3% Eye Drops -- OS 2 drop Q2H [facility] Administration Digoxin 0.125 mg 09/24/17 10:00 10/02/17 10:14 Lanoxin Injection - IVPUSH 0.125 mg Q2D@1000 [facility] Administration Diltiazem HCl 60 mg/ Diltiazem 90 mg 10/03/17 00:15 10/03/17 13:08 HCl 30 mg NGT Not Given Q6HPO [facility] Hydralazine HCl 10 mg 09/11/17 10:25 09/25/17 09:36 Apresoline Injection - IVPUSH 10 mg Q6H PRN Administration HYPERTENSION Insulin Aspart 1 vial 09/27/17 00:00 10/03/17 12:00 Novolog Vial Sliding Scale - SQ 2 units Q6H [facility] Administration Protocol Insulin Detemir 10 units 09/26/17 22:00 10/01/17 21:06 Levemir Vial SQ 10 units HS [facility] Administration Metoprolol Tartrate 5 mg 09/11/17 10:25 09/28/17 09:20 Lopressor Injection - IVPUSH 5 mg Q4H PRN Administration HYPERTENSION Metoprolol Tartrate 25 mg 09/25/17 12:30 10/03/17 09:57 Lopressor - PO 25 mg BID [facility] Administration Nystatin 1 applic 10/02/17 15:00 10/03/17 10:09 Mycostatin Ointment - TP 1 applic BID [facility] Administration Ondansetron HCl 4 mg 09/11/17 02:02 Zofran Injection IVPUSH Q6H PRN NAUSEA Ranitidine HCl 150 mg 10/03/17 22:00 Zantac - PO BID [facility] Trazodone HCl 50 mg 09/20/17 22:00 10/02/17 21:55 Desyrel - PO 50 mg HS [facility] Administration Impression 1. CKD 2. SUSAN 3. DM 4. htn 5. chol 6. chemo port malfunction 7. a-fib 8. lung mass 9. proteinuria 10. adenocarcinoma 11. CVA 12. acute resp failure 13. hyperkalemia 14. hypernatremia 15. pleural effusions Plan - cont with feeds till goal reached - can stop fluids - replace lytes - monitor volume status - trache and peg care - case discussed with pts daughter - monitor renal function - may need to diurese, will monitor volume status - monitor sodium - will follow Dr Llanos
--- NOTE | 2017-10-03 16:33 | PN ---
Progress Note, Physician History of Present Illness: No events. PEG intact - Current Medication List Current Medications: Active Medications Acetaminophen (Tylenol Oral Solution -) 650 mg PEG Q6H PRN PRN Reason: FEVER Last Admin: 10/03/17 06:36 Dose: 650 mg Apixaban (Eliquis -) 5 mg PO BID [facility] Artificial Tears (Artificial Tears Ointment -) 1 applic OU BID [facility] Last Admin: 10/03/17 10:07 Dose: 1 applic Atorvastatin Calcium (Lipitor -) 20 mg PO [facility] Last Admin: 10/02/17 21:55 Dose: 20 mg Chlorhexidine Gluconate (Hibiclens For Decolonization -) 1 applic TP [facility] Last Admin: 10/02/17 22:00 Dose: 1 applic Ciprofloxacin (Ciloxan 0.3% Eye Drops --) 2 drop OS Q2H [facility] Last Admin: 10/03/17 12:45 Dose: 2 drop Digoxin (Lanoxin Injection -) 0.125 mg IVPUSH Q2D@1000 [facility] Last Admin: 10/02/17 10:14 Dose: 0.125 mg Diltiazem HCl 60 mg/ Diltiazem (HCl 30 mg) 90 mg NGT Q6HPO [facility] Last Admin: 10/03/17 13:08 Dose: Not Given Hydralazine HCl (Apresoline Injection -) 10 mg IVPUSH Q6H PRN PRN Reason: HYPERTENSION Last Admin: 09/25/17 09:36 Dose: 10 mg Insulin Aspart (Novolog Vial Sliding Scale -) 1 vial SQ Q6H [facility] PRN Reason: Protocol Last Admin: 10/03/17 12:00 Dose: 2 units Insulin Detemir (Levemir Vial) 10 units SQ [facility] Last Admin: 10/01/17 21:06 Dose: 10 units Metoprolol Tartrate (Lopressor Injection -) 5 mg IVPUSH Q4H PRN PRN Reason: HYPERTENSION Last Admin: 09/28/17 09:20 Dose: 5 mg Metoprolol Tartrate (Lopressor -) 25 mg PO BID [facility] Last Admin: 10/03/17 09:57 Dose: 25 mg Nystatin (Mycostatin Ointment -) 1 applic TP BID [facility] Last Admin: 10/03/17 10:09 Dose: 1 applic Ondansetron HCl (Zofran Injection) 4 mg IVPUSH Q6H PRN PRN Reason: NAUSEA Ranitidine HCl (Zantac -) 150 mg PO BID [facility] Trazodone HCl (Desyrel -) 50 mg PO HS [facility] Last Admin: 10/02/17 21:55 Dose: 50 mg - Objective Vital Signs: Vital Signs Temperature 100.6 F H 10/03/17 10:00 Pulse Rate 78 10/03/17 12:00 Respiratory Rate 15 10/03/17 14:27 Blood Pressure 126/65 10/03/17 12:00 O2 Sat by Pulse Oximetry (%) 93 L 10/03/17 11:29 Gastrointestinal: Yes: Other (no bleeding, leak, or erythema at the PEG track) Labs: CBC, BMP 10/03/17 05:15 10/03/17 05:15 INR, PTT INR 0.98 (0.82-1.09) 10/02/17 05:30 CBCD WBC 6.3 K/mm3 (4.0-10.0) 10/03/17 05:15 RBC 3.01 M/mm3 (3.60-5.2) L 10/03/17 05:15 Hgb 8.5 GM/dL (10.7-15.3) L 10/03/17 05:15 Hct 25.6 % (32.4-45.2) L 10/03/17 05:15 MCV 85.2 fl (80-96) 10/03/17 05:15 MCHC 33.0 g/dl (32.0-36.0) 10/03/17 05:15 RDW 16.3 % (11.6-15.6) H 10/03/17 05:15 Plt Count 82 K/MM3 (134-434) L 10/03/17 05:15 MPV 9.2 fl (7.5-11.1) 10/03/17 05:15 CMP Sodium 147 mmol/L (136-145) H 10/03/17 05:15 Potassium 3.8 mmol/L (3.5-5.1) 10/03/17 05:15 Chloride 114 mmol/L (98-107) H 10/03/17 05:15 Carbon Dioxide 22 mmol/L (21-32) 10/03/17 05:15 Anion Gap 11 (8-16) 10/03/17 05:15 BUN 19 mg/dL (7-18) H 10/03/17 05:15 Creatinine 1.2 mg/dL (0.55-1.02) H 10/03/17 05:15 Creat Clearance w eGFR 45.83 (>60) 10/03/17 05:15 Calcium 7.2 mg/dL (8.5-10.1) L 10/03/17 05:15 Total Bilirubin 0.3 mg/dL (0.2-1.0) D 10/03/17 05:15 AST 25 U/L (15-37) 10/03/17 05:15 ALT 20 U/L (12-78) 10/03/17 05:15 Alkaline Phosphatase 70 U/L (45-117) 10/03/17 05:15 Total Protein 4.4 g/dl (6.4-8.2) L 10/03/17 05:15 Albumin 1.3 g/dl (3.4-5.0) L 10/03/17 05:15 Problem List - Problems (1) Brain metastasis Code(s): C79.31 - SECONDARY MALIGNANT NEOPLASM OF BRAIN (2) CVA (cerebral vascular accident) Code(s): I63.9 - CEREBRAL INFARCTION, UNSPECIFIED (3) Metastatic colorectal cancer Code(s): C78.5 - SECONDARY MALIGNANT NEOPLASM OF LARGE INTESTINE AND RECTUM (4) Respiratory failure Code(s): J96.90 - RESPIRATORY FAILURE, UNSP, UNSP W HYPOXIA OR HYPERCAPNIA Assessment/Plan Start using PEG as intended
--- NOTE | 2017-10-03 18:29 | PN ---
Progress Note (short form) - Note Progress Note: NEUROLOGY FOLLOW-UP: Events reviewed, Pt. examined. Discussed with at bedside. 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 Pt was agitated earlier but is now calm. Awake alert, but withdrawn, depressed. Follows most commands. R pupil 6mm L 4 mm both reactive. Probable Abduction deficit OS. Moves right side well. Left hemiparesis IMP: Stable neurologically. Trache and PEG will protect airway until dysphagia improves. SUUGEST: Continue supportive care. Continue anticoagulation Wean off ventilatory support. Continue pain and consider antidepressant Rx. Rehab placement with talking trache. Thank you very much, Daniel Pulido MD
[2017-10-03] MEDS ORDERED: PT OWN MED DRAWER 7, Y5N ONE (22:17)
[2017-10-03] MEDS: CHLORHEXIDINE GLUCONATE 4% CLEANSER FOR DECOLONIZATION TP SCH (22:18)
[2017-10-03] MEDS: ATORVASTATIN CA 20 MG TABLET (FP) PO SCH (22:19)
[2017-10-03] MEDS: APIXABAN 5 MG TABLET PO SCH (22:19)
[2017-10-03] MEDS: RANITIDINE HCL 150 MG TABLET (FP) PO SCH (22:19)
[2017-10-03] MEDS: INSULIN DETEMIR 100 UNITS/ML MDV SQ SCH (22:43)
[2017-10-04] MEDS: CIPROFLOXACIN 0.3% EYE DROPS 5 ML BOTTLE OS SCH ×6 (00:45→15:44)
[2017-10-04] MEDS: traZODone HCL 50 MG TABLET (FP) PO SCH ×2 (00:51→21:28)
[2017-10-04] MEDS: DILTIAZEM 60 MG, DILTIAZEM 30 MG NGT SCH ×4 (00:51→17:10)
[2017-10-04] MEDS: INSULIN SLIDING SCALE (NOVOLOG) 1 VIAL SQ SCH ×4 (00:55→17:09)
[2017-10-04] MEDS: METOPROLOL TARTRATE 5 MG/5 ML VIAL IVPUSH PRN (06:10)
[2017-10-04 06:27] LABS: BASO % 0.6 % (0-2.0); EOS % 2.7 % (0-4.5); LYMPH % 17.3 % (8-40); MCH 28.3 pg (25.7-33.7); MCHC 33.2 g/dl (32.0-36.0); MEAN CELL VOLUME 85.2 fl (80-96); MEAN PLT VOLUME 8.5 fl (7.5-11.1); MONO % 5.5 % (3.8-10.2); NEUT % 73.9 % (42.8-82.8); PLATELET COUNT 112 K/MM3 (134-434); RBC 3.17 M/mm3 (3.60-5.2); RDW 16.5 % (11.6-15.6); WHITE BLOOD COUNT 5.3 K/mm3 (4.0-10.0)
[2017-10-04 06:55] LABS: ALBUMIN 1.3 g/dl (3.4-5.0); ANION GAP 9 (8-16); BLOOD UREA NITROGEN 25 mg/dL (7-18); CALCIUM 7.6 mg/dL (8.5-10.1); CHLORIDE 111 mmol/L (98-107); CO2 25 mmol/L (21-32); GLUCOSE,RANDOM 280 mg/dL (74-106); POTASSIUM 3.7 mmol/L (3.5-5.1); SODIUM 145 mmol/L (136-145)
[2017-10-04 06:59] LABS: ALK PHOS 73 U/L (45-117); BILIRUBIN,TOTAL 0.4 mg/dL (0.2-1.0); CREATININE 1.5 mg/dL (0.55-1.02); SGOT/AST 20 U/L (15-37); SGPT/ALT 21 U/L (12-78); TOT PROT 4.7 g/dl (6.4-8.2)
[2017-10-04] MEDS: APIXABAN 5 MG TABLET PO SCH ×2 (09:30→21:28)
[2017-10-04] MEDS: METOPROLOL TARTRATE 25 MG TABLET (FP) PO SCH ×2 (09:32→21:27)
[2017-10-04] MEDS: RANITIDINE HCL 150 MG TABLET (FP) PO SCH ×2 (09:32→21:27)
[2017-10-04] MEDS: NYSTATIN 100000 UNIT/GM TOPICAL OINTMENT 15 GM TUBE TP SCH ×2 (10:00→21:29)
[2017-10-04] MEDS: MINERAL OIL/PETROLATUM,WHITE 3.5 GM TUBE OU SCH ×2 (10:00→21:28)
--- NOTE | 2017-10-04 10:14 | PN ---
Progress Note (short form) - Note Progress Note: PULM/CCM Pt Seen & Examined in the ICU, pt is awake but presents depressed & restless s/ p Trach & PEG. Active Medications Acetaminophen (Tylenol Oral Solution -) 650 mg PEG Q6H PRN PRN Reason: FEVER Last Admin: 10/04/17 15:00 Dose: 650 mg Apixaban (Eliquis -) 5 mg PO BID [facility] Last Admin: 10/04/17 09:30 Dose: 5 mg Artificial Tears (Artificial Tears Ointment -) 1 applic OU BID [facility] Last Admin: 10/04/17 10:00 Dose: 1 applic Atorvastatin Calcium (Lipitor -) 20 mg PO [facility] Last Admin: 10/03/17 22:19 Dose: 20 mg Chlorhexidine Gluconate (Hibiclens For Decolonization -) 1 applic TP [facility] Last Admin: 10/03/17 22:18 Dose: 1 applic Digoxin (Lanoxin -) 0.125 mg PEG Q2D@1000 [facility] Diltiazem HCl 60 mg/ Diltiazem (HCl 30 mg) 90 mg NGT Q6HPO [facility] Last Admin: 10/04/17 17:10 Dose: 90 mg Hydralazine HCl (Apresoline Injection -) 10 mg IVPUSH Q6H PRN PRN Reason: HYPERTENSION Last Admin: 09/25/17 09:36 Dose: 10 mg Insulin Aspart (Novolog Vial Sliding Scale -) 1 vial SQ Q6H [facility] PRN Reason: Protocol Last Admin: 10/04/17 17:09 Dose: 6 units Insulin Detemir (Levemir Vial) 10 units SQ [facility] Last Admin: 10/03/17 22:43 Dose: Not Given Metoprolol Tartrate (Lopressor Injection -) 5 mg IVPUSH Q4H PRN PRN Reason: HYPERTENSION Last Admin: 10/04/17 06:10 Dose: 5 mg Metoprolol Tartrate (Lopressor -) 25 mg PO BID [facility] Last Admin: 10/04/17 09:32 Dose: 25 mg Nystatin (Mycostatin Ointment -) 1 applic TP BID [facility] Last Admin: 10/04/17 10:00 Dose: 1 applic Ondansetron HCl (Zofran Injection) 4 mg IVPUSH Q6H PRN PRN Reason: NAUSEA Ranitidine HCl (Zantac -) 150 mg PO BID [facility] Last Admin: 10/04/17 09:32 Dose: 150 mg Trazodone HCl (Desyrel -) 50 mg PO HS [facility] Last Admin: 10/04/17 00:51 Dose: Not Given Zolpidem Tartrate (Ambien -) 10 mg PO ONCE ONE Stop: 10/04/17 21:19 Vital Signs Period Temp Pulse Resp BP Sys/Mcdaniel Pulse Ox Last 24 Hr 98.8 F-101.7 F 69-105 14-26 106-180/47-90 97-100 Intake & Output 10/01/17 10/02/17 10/03/17 10/04/17 23:59 23:59 23:59 23:59 Intake Total 8983 267 3396 1520 Output Total 850 1050 850 500 Balance 508 -698 220 9038 Weight 83.943 kg 83.489 kg 83 kg 81.8 kg GEN: Middle aged woman in bed, awake, Trached, restless HEENT: R pupil = 6mm L pupil = 4 mm (both RL), notice abduction deficit OS, an- icteric, MMM PULM: Mechanically Ventilated, Rhonchi CV: nml S1 S2, RR ABD: + BS, S/S N/T N/D X4Q NEURO: Follows some commands, L hemiparesis but moves R side well. CBC, BMP 10/04/17 06:10 10/04/17 06:10 MICRO 09/23/17 17:00 Blood - Peripheral Venous Blood Culture - Final NO GROWTH AFTER 5 DAYS INCUBATION 09/23/17 17:00 Blood - Peripheral Venous Blood Culture - Final NO GROWTH AFTER 5 DAYS INCUBATION 09/23/17 17:00 Sputum - Endotrachea Suction/Ventilator Gram Stain - Final 09/23/17 17:00 Sputum - Endotrachea Suction/Ventilator Sputum Culture - Final NORMAL RESPIRATORY ADRIAN 09/15/17 12:45 Blood - Peripheral Venous Blood Culture - Final NO GROWTH AFTER 5 DAYS INCUBATION 09/15/17 12:52 Blood - Peripheral Venous Blood Culture - Final NO GROWTH AFTER 5 DAYS INCUBATION 09/15/17 12:00 Sputum - Endotrachea Suction/Ventilator Gram Stain - Final 09/15/17 12:00 Sputum - Endotrachea Suction/Ventilator Sputum Culture - Final Yeast Like Organism 09/15/17 12:00 Urine - Urine Mcdonald Urine Culture - Final NO GROWTH OBTAINED 09/09/17 22:58 Blood - Peripheral Venous Blood Culture - Final NO GROWTH AFTER 5 DAYS INCUBATION 09/09/17 22:30 Blood - Peripheral Venous Blood Culture - Final NO GROWTH AFTER 5 DAYS INCUBATION 09/10/17 00:13 Urine - Urine Clean Catch Urine Culture - Final Contaminated: Please Repeat ASSESS: Multiple Acute Embolic CVAs Acute Hypoxic Respiratory Failure r/o Aspiration Pneumonia Atrial Fibrillation with RVR Metastatic Colon Ca to Lung Acute on Chronic Renal Failure HTN DM Hypercholesterolemia PLAN: - Wean Vent as tolerated - Supportive care - titrate rate control - Continue AC - monitor urine output & creatinine - enteral feeds w/ Fresh New PEG - Pain mnmgnt - Antidepressant - PSYCH - DVT/GI prophylaxis - D/c --> Rehab DGL, ACNP-BC [facility] ICU PULM/CCM [id number] Critical Care Total Critical Care Time (in minutes): 40 Critical Care Statement: The care of this patient involved high complexity decision making to prevent further life threatening deterioration of the patient 's condition and/or to evaluate & treat vital organ system(s) failure or risk of failure.
[2017-10-04] MEDS: DIGOXIN 0.5 MG/2 ML AMPUL IVPUSH SCH (11:00)
--- NOTE | 2017-10-04 12:08 | PN ---
Progress Note, Physician History of Present Illness: intubated and sedated - Current Medication List Current Medications: Active Medications Acetaminophen (Tylenol Oral Solution -) 650 mg PEG Q6H PRN PRN Reason: FEVER Last Admin: 10/03/17 22:18 Dose: 650 mg Apixaban (Eliquis -) 5 mg PO BID [facility] Last Admin: 10/04/17 09:30 Dose: 5 mg Artificial Tears (Artificial Tears Ointment -) 1 applic OU BID [facility] Last Admin: 10/03/17 22:18 Dose: 1 applic Atorvastatin Calcium (Lipitor -) 20 mg PO [facility] Last Admin: 10/03/17 22:19 Dose: 20 mg Chlorhexidine Gluconate (Hibiclens For Decolonization -) 1 applic TP [facility] Last Admin: 10/03/17 22:18 Dose: 1 applic Diltiazem HCl 60 mg/ Diltiazem (HCl 30 mg) 90 mg NGT Q6HPO [facility] Last Admin: 10/04/17 06:11 Dose: Not Given Hydralazine HCl (Apresoline Injection -) 10 mg IVPUSH Q6H PRN PRN Reason: HYPERTENSION Last Admin: 09/25/17 09:36 Dose: 10 mg Insulin Aspart (Novolog Vial Sliding Scale -) 1 vial SQ Q6H [facility] PRN Reason: Protocol Last Admin: 10/04/17 05:10 Dose: 6 units Insulin Detemir (Levemir Vial) 10 units SQ [facility] Last Admin: 10/03/17 22:43 Dose: Not Given Metoprolol Tartrate (Lopressor Injection -) 5 mg IVPUSH Q4H PRN PRN Reason: HYPERTENSION Last Admin: 10/04/17 06:10 Dose: 5 mg Metoprolol Tartrate (Lopressor -) 25 mg PO BID [facility] Last Admin: 10/04/17 09:32 Dose: 25 mg Nystatin (Mycostatin Ointment -) 1 applic TP BID [facility] Last Admin: 10/03/17 22:18 Dose: 1 applic Ondansetron HCl (Zofran Injection) 4 mg IVPUSH Q6H PRN PRN Reason: NAUSEA Ranitidine HCl (Zantac -) 150 mg PO BID [facility] Last Admin: 10/04/17 09:32 Dose: 150 mg Trazodone HCl (Desyrel -) 50 mg PO [facility] Last Admin: 10/04/17 00:51 Dose: Not Given - Objective Vital Signs: Vital Signs Temperature 100.2 F H 10/04/17 10:00 Pulse Rate 105 H 10/04/17 11:00 Respiratory Rate 19 10/04/17 11:40 Blood Pressure 174/90 10/04/17 10:00 O2 Sat by Pulse Oximetry (%) 100 10/04/17 09:00 Cardiovascular: Yes: S1, S2 Respiratory: Yes: Mechanically Ventilated, Rhonchi Gastrointestinal: Yes: Normal Bowel Sounds, Soft Labs: CBC, BMP 10/04/17 06:10 10/04/17 06:10 INR, PTT INR 0.98 (0.82-1.09) 10/02/17 05:30 Problem List - Problems (1) Respiratory failure Code(s): J96.90 - RESPIRATORY FAILURE, UNSP, UNSP W HYPOXIA OR HYPERCAPNIA (2) Brain metastasis Code(s): C79.31 - SECONDARY MALIGNANT NEOPLASM OF BRAIN (3) CVA (cerebral vascular accident) Code(s): I63.9 - CEREBRAL INFARCTION, UNSPECIFIED (4) Metastatic colorectal cancer Code(s): C78.5 - SECONDARY MALIGNANT NEOPLASM OF LARGE INTESTINE AND RECTUM (5) Atrial fibrillation Code(s): I48.91 - UNSPECIFIED ATRIAL FIBRILLATION (6) Diabetes Code(s): E11.9 - TYPE 2 DIABETES MELLITUS WITHOUT COMPLICATIONS Qualifiers: Diabetes mellitus type: type 2 (7) Hypernatremia Code(s): E87.0 - HYPEROSMOLALITY AND HYPERNATREMIA Assessment/Plan - Problems (1) Respiratory failure Assessment/Plan: on vent sedated tracheostomy 10/01 cxr Code(s): J96.90 - RESPIRATORY FAILURE, UNSP, UNSP W HYPOXIA OR HYPERCAPNIA (2) Pneumonia Assessment/Plan: iv zosyn s/p 8 day course abx stopped Code(s): J18.9 - PNEUMONIA, UNSPECIFIED ORGANISM (3) Atrial fibrillation Assessment/Plan: digoxin,cardizem and metoprolol Code(s): I48.91 - UNSPECIFIED ATRIAL FIBRILLATION (4) Anemia Assessment/Plan: stool occult blood ppi iron panel GI follow up noted Code(s): D64.9 - ANEMIA, UNSPECIFIED (5) Diabetes Assessment/Plan: insulin bgm ok for now Code(s): E11.9 - TYPE 2 DIABETES MELLITUS WITHOUT COMPLICATIONS Qualifiers: Diabetes mellitus type: type 2 (6) CVA (cerebral vascular accident) Assessment/Plan: S/p multiple acute embolic infarcts --intubated- s/p trach --s/p PEG --on lovenox--to eliquis Code(s): I63.9 - CEREBRAL INFARCTION, UNSPECIFIED
[2017-10-04] MEDS ORDERED: DIGOXIN 0.125 MG TABLET (FP) PEG SCH (12:15)
[2017-10-04] MEDS ORDERED: dilTIAZem HCL 60 MG TABLET (FP) ONE ×3 (13:26→21:25)
[2017-10-04] MEDS ORDERED: dilTIAZem HCL 30 MG TABLET (FP) ONE ×3 (13:27→21:25)
[2017-10-04] MEDS: ACETAMINOPHEN 650 MG/20.3 ML ORAL SOLUTION (CUPS) PEG PRN (15:00)
[2017-10-04] MEDS ORDERED: PT OWN MED DRAWER 7, Y5N ONE (21:25)
[2017-10-04] MEDS: ATORVASTATIN CA 20 MG TABLET (FP) PO SCH (21:27)
[2017-10-04] MEDS: CHLORHEXIDINE GLUCONATE 4% CLEANSER FOR DECOLONIZATION TP SCH (21:29)
[2017-10-04] MEDS ORDERED: ZOLPIDEM TARTRATE 5 MG TABLET PO ONE (21:30)
[2017-10-04] MEDS: INSULIN DETEMIR 100 UNITS/ML MDV SQ SCH (22:07)
[2017-10-05] MEDS ORDERED: HYDROmorphone HCL CARPU-JECT 2 MG/1 ML DISP.SYRIN IVPUSH ONE (00:02)
[2017-10-05] MEDS: DILTIAZEM 60 MG, DILTIAZEM 30 MG NGT SCH ×4 (00:06→17:49)
[2017-10-05] MEDS: INSULIN SLIDING SCALE (NOVOLOG) 1 VIAL SQ SCH ×4 (00:08→17:55)
--- NOTE | 2017-10-05 00:16 | PN ---
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 (Acute) Laboratory Results - last 24 hr 10/01/17 10/03/17 10/04/17 10:15 22:41 05:04 WBC RBC Hgb Hct MCV MCH MCHC RDW Plt Count MPV Neutrophils % Lymphocytes % Monocytes % Eosinophils % Basophils % Sodium Potassium Chloride Carbon Dioxide Anion Gap BUN Creatinine Creat Clearance w eGFR POC Glucometer 199.33504 259.47015 Random Glucose Calcium Phosphorus Magnesium Total Bilirubin AST ALT Alkaline Phosphatase Total Protein Albumin Blood Type O POSITIVE Antibody Screen Negative Crossmatch See Detail 10/04/17 10/04/17 10/04/17 06:10 06:10 12:56 WBC 5.3 RBC 3.17 L Hgb 9.0 L Hct 27.0 L MCV 85.2 MCH 28.3 MCHC 33.2 RDW 16.5 H Plt Count 112 L D MPV 8.5 Neutrophils % 73.9 Lymphocytes % 17.3 Monocytes % 5.5 Eosinophils % 2.7 D Basophils % 0.6 Sodium 145 Potassium 3.7 Chloride 111 H Carbon Dioxide 25 Anion Gap 9 BUN 25 H Creatinine 1.5 H Creat Clearance w eGFR 35.42 POC Glucometer 320.05142 Random Glucose 280 H Calcium 7.6 L Phosphorus 3.0 Magnesium 2.0 Total Bilirubin 0.4 D AST 20 ALT 21 Alkaline Phosphatase 73 Total Protein 4.7 L Albumin 1.3 L Blood Type Antibody Screen Crossmatch 10/04/17 16:21 WBC RBC Hgb Hct MCV MCH MCHC RDW Plt Count MPV Neutrophils % Lymphocytes % Monocytes % Eosinophils % Basophils % Sodium Potassium Chloride Carbon Dioxide Anion Gap BUN Creatinine Creat Clearance w eGFR POC Glucometer 218.69286 Random Glucose Calcium Phosphorus Magnesium Total Bilirubin AST ALT Alkaline Phosphatase Total Protein Albumin Blood Type Antibody Screen Crossmatch Laboratory Tests 10/03/17 10/03/17 10/04/17 11:33 22:41 05:04 POC Glucometer 189.19120 199.47783 259.75636 10/04/17 12:56 POC Glucometer 320.42643 plan: continue bgm qid novolog insulin doses levemir dose 10unit bid will need dose tapering as sugars fluctuate Problem List - Problems (1) 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 Code(s): E10.3211 - TYPE 1 DIAB WITH MILD NONP RTNOP WITH MACULAR EDEMA, R EYE (2) Brain metastasis Code(s): C79.31 - SECONDARY MALIGNANT NEOPLASM OF BRAIN (3) CVA (cerebral vascular accident) Code(s): I63.9 - CEREBRAL INFARCTION, UNSPECIFIED (4) Headache Code(s): R51 - HEADACHE Qualifiers: Headache chronicity pattern: unspecified pattern Intractability: intractable (5) Hypercapnia Code(s): R06.89 - OTHER ABNORMALITIES OF BREATHING (6) Metastatic colorectal cancer Code(s): C78.5 - SECONDARY MALIGNANT NEOPLASM OF LARGE INTESTINE AND RECTUM (7) SUSAN (acute kidney injury) Code(s): N17.9 - ACUTE KIDNEY FAILURE, UNSPECIFIED
[2017-10-05] MEDS: ACETAMINOPHEN 650 MG/20.3 ML ORAL SOLUTION (CUPS) PEG PRN (00:46)
[2017-10-05] MEDS ORDERED: dilTIAZem HCL 30 MG TABLET (FP) ONE ×2 (05:58→17:46)
[2017-10-05] MEDS ORDERED: dilTIAZem HCL 60 MG TABLET (FP) ONE ×2 (05:58→17:46)
[2017-10-05 07:11] LABS: CHLORIDE 114 mmol/L (98-107); POTASSIUM 3.6 mmol/L (3.5-5.1); SODIUM 148 mmol/L (136-145)
[2017-10-05 07:13] LABS: EOS % 3.5 % (0-4.5); HEMATOCRIT 25.3 % (32.4-45.2); HEMOGLOBIN 8.2 GM/dL (10.7-15.3); LYMPH % 21.1 % (8-40); MCH 27.6 pg (25.7-33.7); MCHC 32.3 g/dl (32.0-36.0); MEAN CELL VOLUME 85.4 fl (80-96); MEAN PLT VOLUME 8.8 fl (7.5-11.1); MONO % 8.2 % (3.8-10.2); NEUT % 66.2 % (42.8-82.8); PLATELET COUNT 140 K/MM3 (134-434); RBC 2.96 M/mm3 (3.60-5.2); RDW 16.7 % (11.6-15.6); WHITE BLOOD COUNT 4.2 K/mm3 (4.0-10.0)
[2017-10-05 07:28] LABS: ALBUMIN 1.5 g/dl (3.4-5.0); ALK PHOS 75 U/L (45-117); ANION GAP 9 (8-16); BILIRUBIN,TOTAL 0.4 mg/dL (0.2-1.0); BLOOD UREA NITROGEN 28 mg/dL (7-18); CALCIUM 7.7 mg/dL (8.5-10.1); CO2 25 mmol/L (21-32); CREATININE 1.4 mg/dL (0.55-1.02); GLUCOSE,RANDOM 243 mg/dL (74-106); SGOT/AST 21 U/L (15-37); SGPT/ALT 22 U/L (12-78); TOT PROT 4.7 g/dl (6.4-8.2)
--- NOTE | 2017-10-05 10:06 | PN ---
Progress Note, Physician History of Present Illness: s/p trach - Current Medication List Current Medications: Active Medications Acetaminophen (Tylenol Oral Solution -) 650 mg PEG Q6H PRN PRN Reason: FEVER Last Admin: 10/05/17 00:46 Dose: 650 mg Apixaban (Eliquis -) 5 mg PO BID [facility] Last Admin: 10/04/17 21:28 Dose: 5 mg Artificial Tears (Artificial Tears Ointment -) 1 applic OU BID [facility] Last Admin: 10/04/17 21:28 Dose: 1 applic Atorvastatin Calcium (Lipitor -) 20 mg PO [facility] Last Admin: 10/04/17 21:27 Dose: 20 mg Chlorhexidine Gluconate (Hibiclens For Decolonization -) 1 applic TP HS [facility] Last Admin: 10/04/17 21:29 Dose: 1 applic Digoxin (Lanoxin -) 0.125 mg PEG Q2D@1000 [facility] Diltiazem HCl 60 mg/ Diltiazem (HCl 30 mg) 90 mg NGT Q6HPO [facility] Last Admin: 10/05/17 06:10 Dose: 90 mg Hydralazine HCl (Apresoline Injection -) 10 mg IVPUSH Q6H PRN PRN Reason: HYPERTENSION Last Admin: 09/25/17 09:36 Dose: 10 mg Insulin Aspart (Novolog Vial Sliding Scale -) 1 vial SQ Q6H [facility] PRN Reason: Protocol Last Admin: 10/05/17 06:16 Dose: 6 units Insulin Detemir (Levemir Vial) 10 units SQ BID [facility] Metoprolol Tartrate (Lopressor Injection -) 5 mg IVPUSH Q4H PRN PRN Reason: HYPERTENSION Last Admin: 10/04/17 06:10 Dose: 5 mg Metoprolol Tartrate (Lopressor -) 25 mg PO BID [facility] Last Admin: 10/04/17 21:27 Dose: 25 mg Nystatin (Mycostatin Ointment -) 1 applic TP BID [facility] Last Admin: 10/04/17 21:29 Dose: 1 applic Ondansetron HCl (Zofran Injection) 4 mg IVPUSH Q6H PRN PRN Reason: NAUSEA Ranitidine HCl (Zantac -) 150 mg PO BID [facility] Last Admin: 10/04/17 21:27 Dose: 150 mg Trazodone HCl (Desyrel -) 50 mg PO [facility] Last Admin: 10/04/17 21:28 Dose: 50 mg - Objective Vital Signs: Vital Signs Temperature 99.4 F 10/05/17 04:00 Pulse Rate 96 H 10/05/17 09:10 Respiratory Rate 18 10/05/17 09:10 Blood Pressure 160/84 10/05/17 06:00 O2 Sat by Pulse Oximetry (%) 96 10/05/17 09:10 Cardiovascular: Yes: S1, S2 Respiratory: Yes: Mechanically Ventilated, Rhonchi Gastrointestinal: Yes: Normal Bowel Sounds, Soft Labs: CBC, BMP 10/05/17 06:15 10/05/17 06:15 INR, PTT INR 0.98 (0.82-1.09) 10/02/17 05:30 Problem List - Problems (1) Respiratory failure Code(s): J96.90 - RESPIRATORY FAILURE, UNSP, UNSP W HYPOXIA OR HYPERCAPNIA (2) Brain metastasis Code(s): C79.31 - SECONDARY MALIGNANT NEOPLASM OF BRAIN (3) CVA (cerebral vascular accident) Code(s): I63.9 - CEREBRAL INFARCTION, UNSPECIFIED (4) Metastatic colorectal cancer Code(s): C78.5 - SECONDARY MALIGNANT NEOPLASM OF LARGE INTESTINE AND RECTUM (5) Atrial fibrillation Code(s): I48.91 - UNSPECIFIED ATRIAL FIBRILLATION (6) Diabetes Code(s): E11.9 - TYPE 2 DIABETES MELLITUS WITHOUT COMPLICATIONS Qualifiers: Diabetes mellitus type: type 2 (7) Hypernatremia Code(s): E87.0 - HYPEROSMOLALITY AND HYPERNATREMIA Assessment/Plan - Problems (1) Respiratory failure Assessment/Plan: on vent sedated tracheostomy 10/01 cxr Code(s): J96.90 - RESPIRATORY FAILURE, UNSP, UNSP W HYPOXIA OR HYPERCAPNIA (2) Pneumonia Assessment/Plan: iv zosyn s/p 8 day course abx stopped Code(s): J18.9 - PNEUMONIA, UNSPECIFIED ORGANISM (3) Atrial fibrillation Assessment/Plan: digoxin,cardizem and metoprolol Code(s): I48.91 - UNSPECIFIED ATRIAL FIBRILLATION (4) Anemia Assessment/Plan: stool occult blood ppi iron panel GI follow up noted Code(s): D64.9 - ANEMIA, UNSPECIFIED (5) Diabetes Assessment/Plan: insulin bgm ok for now Code(s): E11.9 - TYPE 2 DIABETES MELLITUS WITHOUT COMPLICATIONS Qualifiers: Diabetes mellitus type: type 2 (6) CVA (cerebral vascular accident) Assessment/Plan: S/p multiple acute embolic infarcts --intubated- s/p trach --s/p PEG --on lovenox--to eliquis Code(s): I63.9 - CEREBRAL INFARCTION, UNSPECIFIED
[2017-10-05] MEDS ORDERED: PT OWN MED DRAWER 7, Y5N ONE (10:55)
--- NOTE | 2017-10-05 11:41 | EKG ---
Test Reason : Blood Pressure : / mmHG Vent. Rate : 096 BPM Atrial Rate : 096 BPM P-R Int : 124 ms QRS Dur : 078 ms QT Int : 300 ms P-R-T Axes : 077 058 240 degrees QTc Int : 379 ms NORMAL SINUS RHYTHM ABNORMAL ECG Confirmed by MD JAMES, REINALDO ([id number]) on 10/05/2017 11:40:33 AM Referred By: Sabas LOPEZ Confirmed By:REINALDO RAMIREZ MD
[2017-10-05] MEDS: RANITIDINE HCL 150 MG TABLET (FP) PO SCH ×2 (11:47→21:14)
[2017-10-05] MEDS: METOPROLOL TARTRATE 25 MG TABLET (FP) PO SCH ×2 (11:48→21:14)
[2017-10-05] MEDS: APIXABAN 5 MG TABLET PO SCH ×2 (11:49→21:13)
[2017-10-05] MEDS: NYSTATIN 100000 UNIT/GM TOPICAL OINTMENT 15 GM TUBE TP SCH ×2 (11:49→21:39)
[2017-10-05] MEDS: MINERAL OIL/PETROLATUM,WHITE 3.5 GM TUBE OU SCH ×2 (11:50→21:38)
[2017-10-05] MEDS: CIPROFLOXACIN 0.3% EYE DROPS 5 ML BOTTLE OS SCH (11:50)
[2017-10-05] MEDS: INSULIN DETEMIR 100 UNITS/ML MDV SQ SCH ×2 (11:53→21:54)
--- NOTE | 2017-10-05 16:56 | PN ---
Progress Note (short form) - Note Progress Note: PULM/CCM Pt Seen & Examined in the ICU. Much better today with Ambien to help sleep O/N. Active Medications Acetaminophen (Tylenol Oral Solution -) 650 mg PEG Q6H PRN PRN Reason: FEVER Last Admin: 10/05/17 00:46 Dose: 650 mg Apixaban (Eliquis -) 5 mg PO BID [facility] Last Admin: 10/05/17 11:49 Dose: 5 mg Artificial Tears (Artificial Tears Ointment -) 1 applic OU BID [facility] Last Admin: 10/05/17 11:50 Dose: 1 applic Atorvastatin Calcium (Lipitor -) 20 mg PO HS [facility] Last Admin: 10/04/17 21:27 Dose: 20 mg Chlorhexidine Gluconate (Hibiclens For Decolonization -) 1 applic TP HS [facility] Last Admin: 10/04/17 21:29 Dose: 1 applic Digoxin (Lanoxin -) 0.125 mg PEG Q2D@1000 [facility] Diltiazem HCl 60 mg/ Diltiazem (HCl 30 mg) 90 mg NGT Q6HPO [facility] Last Admin: 10/05/17 06:10 Dose: 90 mg Hydralazine HCl (Apresoline Injection -) 10 mg IVPUSH Q6H PRN PRN Reason: HYPERTENSION Last Admin: 09/25/17 09:36 Dose: 10 mg Insulin Aspart (Novolog Vial Sliding Scale -) 1 vial SQ Q6H [facility] PRN Reason: Protocol Last Admin: 10/05/17 12:08 Dose: 4 units Insulin Detemir (Levemir Vial) 10 units SQ BID [facility] Last Admin: 10/05/17 11:53 Dose: 10 units Metoprolol Tartrate (Lopressor Injection -) 5 mg IVPUSH Q4H PRN PRN Reason: HYPERTENSION Last Admin: 10/04/17 06:10 Dose: 5 mg Metoprolol Tartrate (Lopressor -) 25 mg PO BID [facility] Last Admin: 10/05/17 11:48 Dose: 25 mg Nystatin (Mycostatin Ointment -) 1 applic TP BID [facility] Last Admin: 10/05/17 11:49 Dose: 1 applic Ondansetron HCl (Zofran Injection) 4 mg IVPUSH Q6H PRN PRN Reason: NAUSEA Ranitidine HCl (Zantac -) 150 mg PO BID [facility] Last Admin: 10/05/17 11:47 Dose: 150 mg Trazodone HCl (Desyrel -) 50 mg PO HS [facility] Last Admin: 10/04/17 21:28 Dose: 50 mg Vital Signs Period Temp Pulse Resp BP Sys/Mcdaniel Pulse Ox Last 24 Hr 99 F-100.6 F 73-105 15-36 96-166/65-109 96-100 Intake & Output 10/02/17 10/03/17 10/04/17 10/05/17 23:59 23:59 23:59 23:59 Intake Total 944 1136 1520 840 Output Total 1050 850 500 750 Balance -092 473 1414 90 Weight 83.489 kg 83 kg 81.8 kg 86.183 kg GEN: Middle aged woman in bed, awake, Trached, NAD HEENT: R pupil = 6mm L pupil = 4 mm (both RL), notice abduction deficit OS, an- icteric, MMM PULM: Mechanically Ventilated, mild Rhonchi CV: nml S1 S2, RR ABD: + BS, S/S N/T N/D X4Q NEURO: Follows some commands, L hemiparesis but moves R side well. CBC, BMP 10/05/17 06:15 10/05/17 06:15 Microbiology 09/23/17 17:00 Blood - Peripheral Venous Blood Culture - Final NO GROWTH AFTER 5 DAYS INCUBATION 09/23/17 17:00 Blood - Peripheral Venous Blood Culture - Final NO GROWTH AFTER 5 DAYS INCUBATION 09/23/17 17:00 Sputum - Endotrachea Suction/Ventilator Gram Stain - Final 09/23/17 17:00 Sputum - Endotrachea Suction/Ventilator Sputum Culture - Final NORMAL RESPIRATORY ADRIAN 09/15/17 12:45 Blood - Peripheral Venous Blood Culture - Final NO GROWTH AFTER 5 DAYS INCUBATION 09/15/17 12:52 Blood - Peripheral Venous Blood Culture - Final NO GROWTH AFTER 5 DAYS INCUBATION 09/15/17 12:00 Sputum - Endotrachea Suction/Ventilator Gram Stain - Final 09/15/17 12:00 Sputum - Endotrachea Suction/Ventilator Sputum Culture - Final Yeast Like Organism 09/15/17 12:00 Urine - Urine Mcdonald Urine Culture - Final NO GROWTH OBTAINED 09/09/17 22:58 Blood - Peripheral Venous Blood Culture - Final NO GROWTH AFTER 5 DAYS INCUBATION 09/09/17 22:30 Blood - Peripheral Venous Blood Culture - Final NO GROWTH AFTER 5 DAYS INCUBATION 09/10/17 00:13 Urine - Urine Clean Catch Urine Culture - Final Contaminated: Please Repeat ASSESS: Multiple Acute Embolic CVAs Acute Hypoxic Respiratory Failure r/o Aspiration Pneumonia Atrial Fibrillation with RVR Metastatic Colon Ca to Lung Acute on Chronic Renal Failure HTN DM Hypercholesterolemia PLAN: - Wean Vent as tolerated - Supportive care - titrate rate control - Continue AC - monitor urine output & creatinine - enteral feeds w/ Fresh New PEG - Pain mnmgnt - Antidepressant - PSYCH - DVT/GI prophylaxis - D/c --> Rehab DGL, ACNP-BC [facility] ICU PULM/CCM 4436 Critical Care Total Critical Care Time (in minutes): 39 Critical Care Statement: The care of this patient involved high complexity decision making to prevent further life threatening deterioration of the patient 's condition and/or to evaluate & treat vital organ system(s) failure or risk of failure.
[2017-10-05] MEDS: METOPROLOL TARTRATE 5 MG/5 ML VIAL IVPUSH PRN (18:22)
[2017-10-05] MEDS ORDERED: ONDANSETRON 4 MG/2 ML VIAL IVPUSH PRN (20:11)
[2017-10-05] MEDS ORDERED: hydrALAZINE HCL 20 MG/ML VIAL IVPUSH PRN (20:11)
[2017-10-05] MEDS ORDERED: METOPROLOL TARTRATE 5 MG/5 ML VIAL IVPUSH PRN (20:11)
[2017-10-05] MEDS ORDERED: ACETAMINOPHEN 650 MG/20.3 ML ORAL SOLUTION (CUPS) PEG PRN (20:11)
[2017-10-05] MEDS ORDERED: QUEtiapine FUMARATE 25 MG TABLET (FP) PO SCH (22:00)
[2017-10-05] MEDS ORDERED: ATORVASTATIN CA 20 MG TABLET (FP) PO SCH (22:00)
[2017-10-05] MEDS ORDERED: traZODone HCL 50 MG TABLET (FP) PO SCH (22:00)
[2017-10-06] MEDS ORDERED: dilTIAZem HCL 60 MG TABLET (FP) ONE ×3 (00:51→18:09)
[2017-10-06] MEDS: INSULIN SLIDING SCALE (NOVOLOG) 1 VIAL SQ SCH ×4 (00:52→18:16)
[2017-10-06] MEDS ORDERED: dilTIAZem HCL 30 MG TABLET (FP) ONE ×3 (00:52→18:09)
[2017-10-06] MEDS: DILTIAZEM 60 MG, DILTIAZEM 30 MG NGT SCH ×4 (00:52→18:17)
[2017-10-06 06:09] LABS: HEMATOCRIT 26.3 % (32.4-45.2); HEMOGLOBIN 8.8 GM/dL (10.7-15.3); MCH 28.3 pg (25.7-33.7); MCHC 33.3 g/dl (32.0-36.0); MEAN CELL VOLUME 85.1 fl (80-96); MEAN PLT VOLUME 8.9 fl (7.5-11.1); PLATELET COUNT 211 K/MM3 (134-434); RBC 3.09 M/mm3 (3.60-5.2); WHITE BLOOD COUNT 4.8 K/mm3 (4.0-10.0)
[2017-10-06] MEDS ORDERED: INSULIN (NOVOLOG MIX 70/30) 100 UNITS/ML MDV SQ ONE (06:54)
[2017-10-06 06:56] LABS: ANION GAP 5 (8-16); BLOOD UREA NITROGEN 26 mg/dL (7-18); CALCIUM 7.8 mg/dL (8.5-10.1); CHLORIDE 112 mmol/L (98-107); CO2 30 mmol/L (21-32); CREATININE 1.2 mg/dL (0.55-1.02); GLUCOSE,RANDOM 162 mg/dL (74-106); POTASSIUM 4.1 mmol/L (3.5-5.1); SODIUM 147 mmol/L (136-145)
--- NOTE | 2017-10-06 08:20 | PN ---
Physical Exam: SUBJECTIVE: Patient seen and examined. Intermittent low grade fever- Tmax- 100.6. Vented - RR-12, 400, 35%, 5/5. OBJECTIVE: Vital Signs Period Temp Pulse Resp BP Sys/Mcdaniel Pulse Ox Last 24 Hr 98.6 F-100.6 F 69-109 10-25 92-185/56-92 95-100 Vital Signs Temp 99.1 F 10/06/17 06:00 Pulse 106 H 10/06/17 06:28 Resp 16 10/06/17 07:10 BP 185/92 10/06/17 06:28 Pulse Ox 95 10/05/17 20:57 Intake & Output 10/03/17 10/04/17 10/05/17 10/06/17 23:59 23:59 23:59 23:59 Intake Total 1136 1520 840 840 Output Total 850 500 950 800 Balance 286 1020 -110 40 Weight 83 kg 81.8 kg 86.183 kg 85.82 kg GENERAL: The patient is awake,but drowsy, able to follow commands. HEAD: Normal with no signs of trauma. EYES: Mild medial conjuctival congestion on L. PERRL, extraocular movements intact ENT: vented- RR-12, 400, 35%, 5/5. NECK: supple. LUNGS: Breath sounds equal, clear to auscultation bilaterally HEART: Regular rate and rhythm, S1, S2 ABDOMEN: Soft, nontender, nondistended, normoactive bowel sounds, PEG tube in place EXTREMITIES: 2+ pulses, warm, well-perfused, no edema. NEUROLOGICAL: Awake but drowsy, able to follow commands. gait not observed. Lines: vented, PEG tube in place, bateman Laboratory Results - last 24 hr 10/03/17 10/05/17 10/05/17 16:27 06:14 12:05 WBC RBC Hgb Hct MCV MCH MCHC RDW Plt Count MPV Neutrophils % Lymphocytes % Sodium Potassium Chloride Carbon Dioxide Anion Gap BUN Creatinine POC Glucometer [phone] [phone] Random Glucose Calcium 10/05/17 10/05/17 10/06/17 17:42 21:52 05:10 WBC 4.8 RBC 3.09 L Hgb 8.8 L Hct 26.3 L MCV 85.1 MCH 28.3 MCHC 33.3 RDW 17.0 H Plt Count 211 D MPV 8.9 Neutrophils % No Result Required. Lymphocytes % No Result Required. Sodium Potassium Chloride Carbon Dioxide Anion Gap BUN Creatinine POC Glucometer [phone] Random Glucose Calcium 10/06/17 05:10 WBC RBC Hgb Hct MCV MCH MCHC RDW Plt Count MPV Neutrophils % Lymphocytes % Sodium 147 H Potassium 4.1 Chloride 112 H Carbon Dioxide 30 Anion Gap 5 L BUN 26 H Creatinine 1.2 H POC Glucometer Random Glucose 162 H Calcium 7.8 L Active Medications Generic Name Dose Route Start Last Admin Trade Name Freq PRN Reason Stop Dose Admin Acetaminophen 650 mg 10/05/17 20:11 Tylenol Oral Solution - PEG Q6H PRN FEVER Apixaban 5 mg 10/05/17 22:00 10/05/17 21:13 Eliquis - PO 5 mg BID [facility] Administration Artificial Tears 1 applic 10/05/17 22:00 10/05/17 21:38 Artificial Tears Ointment - OU 1 applic BID [facility] Administration Atorvastatin Calcium 20 mg 10/05/17 22:00 10/05/17 21:14 Lipitor - PO 20 mg HS [facility] Administration Digoxin 0.125 mg 10/06/17 10:00 Lanoxin - PEG Q2D@1000 [facility] Diltiazem HCl 60 mg/ Diltiazem 90 mg 10/06/17 00:00 10/06/17 06:13 HCl 30 mg NGT 90 mg Q6HPO [facility] Administration Hydralazine HCl 10 mg 10/05/17 20:11 Apresoline Injection - IVPUSH Q6H PRN HYPERTENSION Insulin Aspart 1 vial 10/06/17 00:00 10/06/17 06:15 Novolog Vial Sliding Scale - SQ 2 units Q6H [facility] Administration Protocol Insulin Detemir 10 units 10/05/17 10:00 10/05/17 21:54 Levemir Vial SQ 10 units BID [facility] Administration Metoprolol Tartrate 25 mg 10/05/17 22:00 10/05/17 21:14 Lopressor - PO 25 mg BID [facility] Administration Metoprolol Tartrate 5 mg 10/05/17 20:11 10/06/17 06:28 Lopressor Injection - IVPUSH 5 mg Q4H PRN Administration HYPERTENSION Nystatin 1 applic 10/05/17 22:00 10/05/17 21:39 Mycostatin Ointment - TP 1 applic BID [facility] Administration Ondansetron HCl 4 mg 10/05/17 20:11 Zofran Injection IVPUSH Q6H PRN NAUSEA Quetiapine Fumarate 25 mg 10/05/17 22:00 10/05/17 21:14 Seroquel - PO 25 mg HS [facility] Administration Ranitidine HCl 150 mg 10/05/17 22:00 10/05/17 21:14 Zantac - PO 150 mg BID [facility] Administration Trazodone HCl 50 mg 10/05/17 22:00 10/05/17 21:14 Desyrel - PO 50 mg HS [facility] Administration ASSESSMENT/PLAN: 62 yo F with PMHx of HTN, paroxysmal atrial fibrillation on apixaban, DM, HLD, CKD, GERD and colon CA s/p colectomy 2011 with mets to lung admitted to ICU for AMS now vented following multiple failed extubations. Neuro/opth:. AMS- vented and off sedation, obeys commands Actively moving all limbs R/O critical illness polyneuropathy AMS 2/2 to cerebral edema from multiple acute infarcts with background Afib L eye hyphema- improved cipro ointment OS Q2H Agitated at night Trazodone 50mg PO HS Seroquel 25mg PO HS Respiratory: Acute hypercapneic hypoxic resp failure- vented- VCV-AC-- RR-12, 400, 35%, 5/ 5. Changed to CPAP settings CXR No change in secretions Renal: SUSAN R/O CKD Cr- 1.2-resolved Hyperkalemia- improved hypernatremia- hypophosphatemia- repleted Hypermagnesemia CMP,Mg, Phosphorus On glucerna feeds Hold ramipril (with failure) Monitor Metabolic/Endocrine/GI/Lines: DM bgm On glucerna feeds Hypernatremic- improved Cont levemir- 15u Cont ISS Hyperkalemia- improved Lines:vent, PEG, RUE peripheral line, bateman D/C bateman Cardio: Htn HLD Lopressor iv 5mg Q4H Continue eliquis 5mg PO iv metoprolol prn -5mg Digoxin 0.125 Q2D cardizem 90mg Q6H PO Iv hydrazaline 10mg Q6H ivpush PRN PO metoprolol increased from 25 mg bid to 50mg bid Digoxin level Hemonc: Anemia- stable post transfusion 09/23 Colorectal cancer with lung mets ID: Now spiking low grade fevers- Panculture stat D/c bateman D/c rectal tube completed treatment for PNA restarted on Zosyn-3.35 (09/23/17) Cont Cipro eye drops Cont artificial tears Monitor daily CXR Prophylaxis: Continue eliquis Heel pads Dispo: Vented - transfer to [address] [place] [address] type - Emergency Visit Emergency Visit: Yes ED Registration Date: 09/10/17 Care time: The patient presented to the Emergency Department on the above date and was hospitalized for further evaluation of their emergent condition. - New Patient This patient is new to me today: No - Critical Care Critical Care patient: Yes Total Critical Care Time (in minutes): 40 Critical Care Statement: The care of this patient involved high complexity decision making to prevent further life threatening deterioration of the patient 's condition and/or to evaluate & treat vital organ system(s) failure or risk of failure. - Discharge Referral Referred to [facility] Med P.C.: No
[2017-10-06 08:41] LABS: MAGNESIUM 1.9 mg/dL (1.8-2.4); PHOSPHOROUS 1.9 mg/dL (2.5-4.9)
[2017-10-06 08:49] LABS: ANISOCYTOSIS 1+; MACROCYTOSIS 0; PLATELET ESTIMATE NORMAL
[2017-10-06] MEDS ORDERED: DIGOXIN 0.125 MG TABLET (FP) PEG SCH (10:00)
[2017-10-06] MEDS: INSULIN DETEMIR 100 UNITS/ML MDV SQ SCH ×2 (10:34→21:51)
[2017-10-06] MEDS: METOPROLOL TARTRATE 25 MG TABLET (FP) PO SCH (10:34)
[2017-10-06] MEDS: APIXABAN 5 MG TABLET PO SCH ×2 (10:37→21:45)
[2017-10-06] MEDS: RANITIDINE HCL 150 MG TABLET (FP) PO SCH ×2 (10:44→21:45)
--- NOTE | 2017-10-06 11:19 | PN ---
Progress Note, Physician Chief Complaint: patient on cpap trial right now s/p trach and peg - Current Medication List Current Medications: Active Medications Acetaminophen (Tylenol Oral Solution -) 650 mg PEG Q6H PRN PRN Reason: FEVER Apixaban (Eliquis -) 5 mg PO BID [facility] Last Admin: 10/06/17 10:37 Dose: 5 mg Artificial Tears (Artificial Tears Ointment -) 1 applic OU BID [facility] Last Admin: 10/05/17 21:38 Dose: 1 applic Atorvastatin Calcium (Lipitor -) 20 mg PO HS [facility] Last Admin: 10/05/17 21:14 Dose: 20 mg Digoxin (Lanoxin -) 0.125 mg PEG Q2D@1000 [facility] Last Admin: 10/06/17 10:34 Dose: 0.125 mg Diltiazem HCl 60 mg/ Diltiazem (HCl 30 mg) 90 mg NGT Q6HPO [facility] Last Admin: 10/06/17 06:13 Dose: 90 mg Hydralazine HCl (Apresoline Injection -) 10 mg IVPUSH Q6H PRN PRN Reason: HYPERTENSION Insulin Aspart (Novolog Vial Sliding Scale -) 1 vial SQ Q6H [facility] PRN Reason: Protocol Last Admin: 10/06/17 06:15 Dose: 2 units Insulin Detemir (Levemir Vial) 10 units SQ BID [facility] Last Admin: 10/06/17 10:34 Dose: 10 units Metoprolol Tartrate (Lopressor -) 25 mg PO BID [facility] Last Admin: 10/06/17 10:34 Dose: 25 mg Metoprolol Tartrate (Lopressor Injection -) 5 mg IVPUSH Q4H PRN PRN Reason: HYPERTENSION Last Admin: 10/06/17 06:28 Dose: 5 mg Nystatin (Mycostatin Ointment -) 1 applic TP BID [facility] Last Admin: 10/05/17 21:39 Dose: 1 applic Ondansetron HCl (Zofran Injection) 4 mg IVPUSH Q6H PRN PRN Reason: NAUSEA Quetiapine Fumarate (Seroquel -) 25 mg PO [facility] Last Admin: 10/05/17 21:14 Dose: 25 mg Ranitidine HCl (Zantac -) 150 mg PO BID [facility] Last Admin: 10/06/17 10:44 Dose: 150 mg Trazodone HCl (Desyrel -) 50 mg PO [facility] Last Admin: 10/05/17 21:14 Dose: 50 mg - Objective Vital Signs: Vital Signs Temperature 99.1 F 10/06/17 06:00 Pulse Rate 109 H 10/06/17 10:34 Respiratory Rate 23 10/06/17 10:56 Blood Pressure 185/92 10/06/17 06:28 O2 Sat by Pulse Oximetry (%) 98 10/06/17 10:56 Constitutional: Yes: Calm Neck: Yes: Other (trach) Cardiovascular: Yes: S1, S2 Respiratory: Yes: CTA Bilaterally Gastrointestinal: Yes: Normal Bowel Sounds, Soft ...Rectal Exam: Yes: Other (rectal tube) Genitourinary: Yes: Mcdonald Present Labs: CBC, BMP 10/06/17 05:10 10/06/17 05:10 INR, PTT INR 0.98 (0.82-1.09) 10/02/17 05:30 Problem List - Problems (1) Respiratory failure Assessment/Plan: intubated sedated s/p tracheostomy on cpap trial right now Code(s): J96.90 - RESPIRATORY FAILURE, UNSP, UNSP W HYPOXIA OR HYPERCAPNIA (2) Pneumonia Assessment/Plan: iv zosyn s/p 8 day course abx stopped Code(s): J18.9 - PNEUMONIA, UNSPECIFIED ORGANISM (3) Atrial fibrillation Assessment/Plan: digoxin,cardizem and metoprolol Code(s): I48.91 - UNSPECIFIED ATRIAL FIBRILLATION (4) Anemia Assessment/Plan: stool occult blood ppi iron panel GI follow up noted Code(s): D64.9 - ANEMIA, UNSPECIFIED (5) Diabetes Assessment/Plan: insulin bgm ok for now Code(s): E11.9 - TYPE 2 DIABETES MELLITUS WITHOUT COMPLICATIONS Qualifiers: Diabetes mellitus type: type 2 (6) CVA (cerebral vascular accident) Assessment/Plan: S/p multiple acute embolic infarcts intubated- s/p trach s/p peg now needs snf placement Code(s): I63.9 - CEREBRAL INFARCTION, UNSPECIFIED Assessment/Plan hand restraints and abdominal binder bc pulling at peg tube replete phosphorous
[2017-10-06] MEDS ORDERED: METOPROLOL TARTRATE 50 MG TABLET (FP) NGT SCH (12:00)
[2017-10-06] MEDS: MINERAL OIL/PETROLATUM,WHITE 3.5 GM TUBE OU SCH ×2 (12:26→21:48)
--- NOTE | 2017-10-06 12:27 | PN ---
Teaching Attending Note Name of Resident: Lisa Mott ATTENDING PHYSICIAN STATEMENT I saw and evaluated the patient. I reviewed the resident's note and discussed the case with the resident. I agree with the resident's findings and plan as documented. SUBJECTIVE: Pt seen and examined in the ICU. Vented on volume assist control with 50%. Intermittent low grade temps. OBJECTIVE: Last Vital Signs Temp Pulse Resp BP Pulse Ox 99.1 F 109 H 22 185/92 97 10/06/17 06:00 10/06/17 10:34 10/06/17 11:33 10/06/17 06:28 10/06/17 11:33 Intake & Output 10/03/17 10/04/17 10/05/17 10/06/17 23:59 23:59 23:59 23:59 Intake Total 1136 1520 840 840 Output Total 850 500 950 800 Balance 286 1020 -110 40 Weight 83 kg 81.8 kg 86.183 kg 85.82 kg Gen: vented, awake Heart: tachycardic, irregular Lung: scattered rhonchi Abd: soft, nontender Ext: + edema CBC, BMP 10/06/17 05:10 10/06/17 05:10 Active Medications Acetaminophen (Tylenol Oral Solution -) 650 mg PEG Q6H PRN PRN Reason: FEVER Apixaban (Eliquis -) 5 mg PO BID [facility] Last Admin: 10/06/17 10:37 Dose: 5 mg Artificial Tears (Artificial Tears Ointment -) 1 applic OU BID [facility] Last Admin: 10/05/17 21:38 Dose: 1 applic Atorvastatin Calcium (Lipitor -) 20 mg PO HS [facility] Last Admin: 10/05/17 21:14 Dose: 20 mg Digoxin (Lanoxin -) 0.125 mg PEG Q2D@1000 [facility] Last Admin: 10/06/17 10:34 Dose: 0.125 mg Diltiazem HCl 60 mg/ Diltiazem (HCl 30 mg) 90 mg NGT Q6HPO [facility] Last Admin: 10/06/17 06:13 Dose: 90 mg Hydralazine HCl (Apresoline Injection -) 10 mg IVPUSH Q6H PRN PRN Reason: HYPERTENSION Insulin Aspart (Novolog Vial Sliding Scale -) 1 vial SQ Q6H [facility] PRN Reason: Protocol Last Admin: 10/06/17 06:15 Dose: 2 units Insulin Detemir (Levemir Vial) 10 units SQ BID [facility] Last Admin: 10/06/17 10:34 Dose: 10 units Metoprolol Tartrate (Lopressor Injection -) 5 mg IVPUSH Q4H PRN PRN Reason: HYPERTENSION Last Admin: 10/06/17 06:28 Dose: 5 mg Metoprolol Tartrate (Lopressor -) 50 mg NGT DAILY [facility] Nystatin (Mycostatin Ointment -) 1 applic TP BID [facility] Last Admin: 10/05/17 21:39 Dose: 1 applic Ondansetron HCl (Zofran Injection) 4 mg IVPUSH Q6H PRN PRN Reason: NAUSEA Quetiapine Fumarate (Seroquel -) 25 mg PO HS [facility] Last Admin: 10/05/17 21:14 Dose: 25 mg Ranitidine HCl (Zantac -) 150 mg PO BID [facility] Last Admin: 10/06/17 10:44 Dose: 150 mg Trazodone HCl (Desyrel -) 50 mg PO [facility] Last Admin: 10/05/17 21:14 Dose: 50 mg ASSESSMENT AND PLAN: Multiple Acute Embolic CVA Acute Hypoxic Respiratory Failure s/p Tracheostomy Aspiration Pneumonia Atrial Fibrillation with RVR Metastatic Colon Ca to Lung Acute on Chronic Renal Failure HTN DM Hypercholesterolemia - completed antibiotics - reculture if T >100.4 - d/c bateman - titrate rate control - continue anticoagulatio - monitor urine output, creatinine - enteral feeds - increase free water - spontaneous breathing trials as tolerated - DVT/GI prophylaxis - can monitor on vent floor critical care time spent in reviewing chart, evaluating patient and formulating plan 35 min
[2017-10-06] MEDS: NYSTATIN 100000 UNIT/GM TOPICAL OINTMENT 15 GM TUBE TP SCH ×2 (12:28→21:50)
--- NOTE | 2017-10-06 12:54 | PN ---
Progress Note, Physician History of Present Illness: Pt seen and examined at bedside. She is awake and aware of her surroundings. She is on vent. She is able to answer yes and no questions. - Current Medication List Current Medications: Active Medications Acetaminophen (Tylenol Oral Solution -) 650 mg PEG Q6H PRN PRN Reason: FEVER Apixaban (Eliquis -) 5 mg PO BID [facility] Last Admin: 10/06/17 10:37 Dose: 5 mg Artificial Tears (Artificial Tears Ointment -) 1 applic OU BID [facility] Last Admin: 10/06/17 12:26 Dose: 1 applic Atorvastatin Calcium (Lipitor -) 20 mg PO [facility] Last Admin: 10/05/17 21:14 Dose: 20 mg Digoxin (Lanoxin -) 0.125 mg PEG Q2D@1000 [facility] Last Admin: 10/06/17 10:34 Dose: 0.125 mg Diltiazem HCl 60 mg/ Diltiazem (HCl 30 mg) 90 mg NGT Q6HPO [facility] Last Admin: 10/06/17 12:29 Dose: 90 mg Hydralazine HCl (Apresoline Injection -) 10 mg IVPUSH Q6H PRN PRN Reason: HYPERTENSION Insulin Aspart (Novolog Vial Sliding Scale -) 1 vial SQ Q6H [facility] PRN Reason: Protocol Last Admin: 10/06/17 12:32 Dose: Not Given Insulin Detemir (Levemir Vial) 10 units SQ BID [facility] Last Admin: 10/06/17 10:34 Dose: 10 units Metoprolol Tartrate (Lopressor Injection -) 5 mg IVPUSH Q4H PRN PRN Reason: HYPERTENSION Last Admin: 10/06/17 06:28 Dose: 5 mg Metoprolol Tartrate (Lopressor -) 50 mg NGT DAILY [facility] Last Admin: 10/06/17 12:32 Dose: 50 mg Nystatin (Mycostatin Ointment -) 1 applic TP BID [facility] Last Admin: 10/06/17 12:28 Dose: 1 applic Ondansetron HCl (Zofran Injection) 4 mg IVPUSH Q6H PRN PRN Reason: NAUSEA Quetiapine Fumarate (Seroquel -) 25 mg PO [facility] Last Admin: 10/05/17 21:14 Dose: 25 mg Ranitidine HCl (Zantac -) 150 mg PO BID [facility] Last Admin: 10/06/17 10:44 Dose: 150 mg Trazodone HCl (Desyrel -) 50 mg PO HS [facility] Last Admin: 10/05/17 21:14 Dose: 50 mg - Objective Vital Signs: Vital Signs Temperature 99.1 F 10/06/17 06:00 Pulse Rate 109 H 10/06/17 10:34 Respiratory Rate 22 10/06/17 11:33 Blood Pressure 185/92 10/06/17 06:28 O2 Sat by Pulse Oximetry (%) 97 10/06/17 11:33 Constitutional: Yes: Calm Eyes: Yes: Conjunctiva Clear Neck: Yes: Other (trache) Cardiovascular: Yes: S1, S2 Respiratory: Yes: Mechanically Ventilated Gastrointestinal: Yes: Soft, Abdomen, Obese Genitourinary: Yes: Mcdonald Present Musculoskeletal: Yes: Muscle Weakness Edema: No Neurological: Yes: Oriented Psychiatric: Yes: Oriented Labs: CBC, BMP 10/06/17 05:10 10/06/17 05:10 INR, PTT INR 0.98 (0.82-1.09) 10/02/17 05:30 Problem List - Problems (1) Brain metastasis Code(s): C79.31 - SECONDARY MALIGNANT NEOPLASM OF BRAIN (2) Headache Code(s): R51 - HEADACHE Qualifiers: Headache chronicity pattern: unspecified pattern Intractability: intractable (3) Metastatic colorectal cancer Code(s): C78.5 - SECONDARY MALIGNANT NEOPLASM OF LARGE INTESTINE AND RECTUM (4) SUSAN (acute kidney injury) Code(s): N17.9 - ACUTE KIDNEY FAILURE, UNSPECIFIED (5) Atrial fibrillation Code(s): I48.91 - UNSPECIFIED ATRIAL FIBRILLATION (6) Cancer, colon Code(s): C18.9 - MALIGNANT NEOPLASM OF COLON, UNSPECIFIED Qualifiers: Colon location: unspecified part of colon Qualified Code(s): C18.9 - Malignant neoplasm of colon, unspecified (7) Lung mass Code(s): R91.8 - OTHER NONSPECIFIC ABNORMAL FINDING OF LUNG FIELD Assessment/Plan Current Medications Generic Name Dose Route Start Last Admin Trade Name Freq PRN Reason Stop Dose Admin Acetaminophen 650 mg 10/05/17 20:11 Tylenol Oral Solution - PEG Q6H PRN FEVER Apixaban 5 mg 10/05/17 22:00 10/06/17 10:37 Eliquis - PO 5 mg BID [facility] Administration Artificial Tears 1 applic 10/05/17 22:00 10/06/17 12:26 Artificial Tears Ointment - OU 1 applic BID [facility] Administration Atorvastatin Calcium 20 mg 10/05/17 22:00 10/05/17 21:14 Lipitor - PO 20 mg HS [facility] Administration Digoxin 0.125 mg 10/06/17 10:00 10/06/17 10:34 Lanoxin - PEG 0.125 mg Q2D@1000 [facility] Administration Diltiazem HCl 60 mg/ Diltiazem 90 mg 10/06/17 00:00 10/06/17 12:29 HCl 30 mg NGT 90 mg Q6HPO [facility] Administration Hydralazine HCl 10 mg 10/05/17 20:11 Apresoline Injection - IVPUSH Q6H PRN HYPERTENSION Insulin Aspart 1 vial 10/06/17 00:00 10/06/17 12:32 Novolog Vial Sliding Scale - SQ Not Given Q6H [facility] Protocol Insulin Detemir 10 units 10/05/17 10:00 10/06/17 10:34 Levemir Vial SQ 10 units BID [facility] Administration Metoprolol Tartrate 5 mg 10/05/17 20:11 10/06/17 06:28 Lopressor Injection - IVPUSH 5 mg Q4H PRN Administration HYPERTENSION Metoprolol Tartrate 50 mg 10/06/17 12:00 10/06/17 12:32 Lopressor - NGT 50 mg DAILY [facility] Administration Nystatin 1 applic 10/05/17 22:00 10/06/17 12:28 Mycostatin Ointment - TP 1 applic BID [facility] Administration Ondansetron HCl 4 mg 10/05/17 20:11 Zofran Injection IVPUSH Q6H PRN NAUSEA Quetiapine Fumarate 25 mg 10/05/17 22:00 10/05/17 21:14 Seroquel - PO 25 mg HS [facility] Administration Ranitidine HCl 150 mg 10/05/17 22:00 10/06/17 10:44 Zantac - PO 150 mg BID [facility] Administration Trazodone HCl 50 mg 10/05/17 22:00 10/05/17 21:14 Desyrel - PO 50 mg HS [facility] Administration Impression 1. CKD 2. SUSAN 3. DM 4. htn 5. chol 6. chemo port malfunction 7. a-fib 8. lung mass 9. proteinuria 10. adenocarcinoma 11. CVA 12. acute resp failure 13. hyperkalemia 14. hypernatremia 15. pleural effusions Plan - sodium is improving - cont free water with feeds - repeat labs in am - renal function is stable - cont vent support with weaning per pulmonary - can d/c bhavana - will follow Dr Llanos
--- NOTE | 2017-10-06 13:13 | HOL ---
Hook-up date: 2017-10-04 15:01:00 Duration: 23:58:00 Test Indications: Medications: [id number] QRS complexes 20 Ventricular ectopics which represent <1 % of total QRS comp. 31 Supraventricular ectopics which represent <1 % of total QRS comp. * Paced QRS complexs which represent % of total QRS comp. * % of Time Classified as Noise VENTRICULAR ECTOPY 20 Isolated 0 Bigeminal Cycles 0 Couplets 0 Runs 0 Beats in Runs * Beats LONGEST at * BPM at :: -- * Beats FASTEST at * BPM at :: -- SUPRAVENTRICULAR ECTOPY 31 Isolated 0 Couplets 0 Runs 0 Beats in Runs * Beats LONGEST at * BPM at :: -- * Beats FASTEST at * BPM at :: -- HEART RATES 67 MIN at 03:36:29 2017-10-05 88 AVG 108 MAX at 11:50:19 2017-10-05 LONGEST RR 0.944 secs at 16:39:58 2017-10-04 SCANNED BY DANIEL TUCKER ON 10/06/17 1. BASELINE RHYTHM IS SINUS RHYTHM WITH AVERAGE HEART RATE OF 88 BPM. RATES VARIED FROM 67 TO 108 BPM, 2. RARE VENTRICULAR ECTOPIES INCLUDING PREMATURE VENTRICULAR COMPLEXES 3. RARE ATRIAL ECTOPIES INCLUDING PREMATURE ATRIAL COMPLEXES 4. NO SIGNIFICANT ST AND T WAVE ABNORMALITIES 5. DIARY WAS NOT SUBMITTED Confirmed by ACOSTA HIGUERA, VICENTE ([id number]) on 10/06/2017 1:12:46 PM Referred By: TAMIKA HONEYCUTT DR Overread By: VICENTE SHANE MD
[2017-10-06] MEDS ORDERED: POTASSIUM PHOSPHATE 30 MM in DEXTROSE 5%-WATER - 250 ML IVPB ONE (15:32)
[2017-10-06] MEDS ORDERED: MAGNESIUM OXIDE 400 MG TABLET (FP) PEG ONE ×2 (15:33→19:00)
[2017-10-06] MEDS ORDERED: PT OWN MED DRAWER 7, Y5N ONE (18:12)
[2017-10-06] MEDS ORDERED: hydrALAZINE HCL 20 MG/ML VIAL IVPUSH PRN (20:09)
[2017-10-06] MEDS ORDERED: METOPROLOL TARTRATE 5 MG/5 ML VIAL IVPUSH PRN (20:09)
[2017-10-06 20:49] LABS: URINE APPEARANCE CLOUDY; URINE BILIRUBIN NEGATIVE (NEGATIVE); URINE BLOOD NEGATIVE (NEGATIVE); URINE COLOR YELLOW; URINE GLUCOSE (UA) 1+ (NEGATIVE); URINE KETONE NEGATIVE (NEGATIVE); URINE NITRITE NEGATIVE (NEGATIVE); URINE UROBILINOGEN NEGATIVE mg/dL (0.2-1.0)
[2017-10-06 21:05] LABS: URINE LEUK ESTERASE 2+ (NEGATIVE); URINE PROTEIN 3+ (NEGATIVE)
[2017-10-06 21:43] LABS: URINE BACTERIA MODERATE /hpf (NONE SEEN)
[2017-10-06] MEDS: ATORVASTATIN CA 20 MG TABLET (FP) PO SCH (21:46)
[2017-10-06] MEDS: QUEtiapine FUMARATE 25 MG TABLET (FP) PO SCH (21:46)
[2017-10-06] MEDS: traZODone HCL 50 MG TABLET (FP) PO SCH (21:46)
[2017-10-07] MEDS ORDERED: dilTIAZem HCL 60 MG TABLET (FP) ONE ×2 (00:18→18:27)
[2017-10-07] MEDS ORDERED: dilTIAZem HCL 30 MG TABLET (FP) ONE ×2 (00:18→18:27)
[2017-10-07] MEDS: INSULIN SLIDING SCALE (NOVOLOG) 1 VIAL SQ SCH ×4 (00:31→18:35)
[2017-10-07] MEDS: DILTIAZEM 60 MG, DILTIAZEM 30 MG NGT SCH ×4 (00:33→18:27)
[2017-10-07] MEDS: INSULIN DETEMIR 100 UNITS/ML MDV SQ SCH ×2 (06:16→21:36)
[2017-10-07 06:21] LABS: BASO % 0.5 % (0-2.0); EOS % 3.2 % (0-4.5); HEMATOCRIT 25.4 % (32.4-45.2); HEMOGLOBIN 8.4 GM/dL (10.7-15.3); LYMPH % 16.9 % (8-40); MCH 28.5 pg (25.7-33.7); MCHC 33.2 g/dl (32.0-36.0); MEAN CELL VOLUME 85.8 fl (80-96); MONO % 8.8 % (3.8-10.2); NEUT % 70.6 % (42.8-82.8); PLATELET COUNT 266 K/MM3 (134-434); RBC 2.96 M/mm3 (3.60-5.2); RDW 17.3 % (11.6-15.6); WHITE BLOOD COUNT 6.2 K/mm3 (4.0-10.0)
[2017-10-07 06:51] LABS: ALBUMIN 1.3 g/dl (3.4-5.0); ANION GAP 6 (8-16); BLOOD UREA NITROGEN 26 mg/dL (7-18); CALCIUM 7.4 mg/dL (8.5-10.1); CHLORIDE 109 mmol/L (98-107); CO2 30 mmol/L (21-32); GLUCOSE,RANDOM 196 mg/dL (74-106); MAGNESIUM 1.9 mg/dL (1.8-2.4); PHOSPHOROUS 2.7 mg/dL (2.5-4.9); POTASSIUM 4.7 mmol/L (3.5-5.1); SGOT/AST 19 U/L (15-37); SODIUM 145 mmol/L (136-145)
[2017-10-07 06:54] LABS: ALK PHOS 89 U/L (45-117); BILIRUBIN,TOTAL 0.3 mg/dL (0.2-1.0); CREATININE 1.3 mg/dL (0.55-1.02); SGPT/ALT 21 U/L (12-78); TOT PROT 5.1 g/dl (6.4-8.2)
--- NOTE | 2017-10-07 07:48 | PN ---
Physical Exam: SUBJECTIVE: Patient seen and examined. Off sedation. No new c/o. Had low grade fever yesterday, last spike T 100.5 on 10/06/17 at 6.00pm. Was pancultured yesterday, pending results. Vented at- RR-12, 400, 35%, 08/12. OBJECTIVE: Vital Signs Period Temp Pulse Resp BP Sys/Mcdaniel Pulse Ox Last 24 Hr 99.2 F-100.5 F 67-109 14-25 114-176/43-114 93-100 Vital Signs Temp 99.5 F 10/07/17 06:00 Pulse 91 H 10/07/17 06:00 Resp 15 10/07/17 06:52 BP 152/91 10/07/17 06:00 Pulse Ox 100 10/06/17 22:44 Intake & Output 10/04/17 10/05/17 10/06/17 10/07/17 23:59 23:59 23:59 23:59 Intake Total 7837 562 4132 840 Output Total 673 861 9297 Balance 1020 -110 730 840 Weight 81.8 kg 86.183 kg 85.82 kg 85.417 kg GENERAL: The patient is awake,but drowsy, able to follow commands. HEAD: Normal with no signs of trauma. EYES: Mild medial conjuctival congestion on L. PERRL, extraocular movements intact ENT: vented- RR-12, 400, 35%, /5. NECK: supple. LUNGS: Breath sounds reduced R> L HEART: Regular rate and rhythm, S1, S2 ABDOMEN: Soft, nontender, nondistended, normoactive bowel sounds, PEG tube in place EXTREMITIES: 2+ pulses, warm, well-perfused, no edema. NEUROLOGICAL: Awake but drowsy, able to follow commands. gait not observed. Lines:vent, PEG, RUE medline line Laboratory Results - last 24 hr 10/06/17 10/06/17 10/06/17 00:28 05:10 05:10 WBC RBC Hgb Hct MCV MCH MCHC RDW Plt Count MPV Neutrophils % Neutrophils % (Manual) 49.5 D Band Neutrophils % 18.6 Lymphocytes % Lymphocytes % (Manual) 21.6 D Monocytes % Monocytes % (Manual) 5 D Eosinophils % Eosinophils % (Manual) 2.1 D Basophils % Basophils % (Manual) 0.0 Myelocytes % (Man) 0 D Promyelocytes % (Man) 0 Metamyelocytes 2 D Hypochromia 0 Platelet Estimate Normal Polychromasia 1+ Poikilocytosis 2+ Anisocytosis 1+ Microcytosis 0 Macrocytosis 0 Schistocytes 1+ Sodium 147 H Potassium 4.1 Chloride 112 H Carbon Dioxide 30 Anion Gap 5 L BUN 26 H Creatinine 1.2 H Creat Clearance w eGFR POC Glucometer 135.52876 Random Glucose 162 H Calcium 7.8 L Phosphorus 1.9 L Magnesium 1.9 Total Bilirubin AST ALT Alkaline Phosphatase Total Protein Albumin Urine Color Urine Appearance Urine pH Ur Specific [place] Urine Protein Urine Glucose (UA) Urine Ketones Urine Blood Urine Nitrite Urine Bilirubin Urine Urobilinogen Ur Leukocyte Esterase Urine WBC (Auto) Urine RBC (Auto) Urine Bacteria 10/06/17 10/06/17 10/06/17 05:10 05:21 11:59 WBC RBC Hgb Hct MCV MCH MCHC RDW Plt Count MPV Neutrophils % Neutrophils % (Manual) Band Neutrophils % Lymphocytes % Lymphocytes % (Manual) Monocytes % Monocytes % (Manual) Eosinophils % Eosinophils % (Manual) Basophils % Basophils % (Manual) Myelocytes % (Man) Promyelocytes % (Man) Metamyelocytes Hypochromia Platelet Estimate Polychromasia Poikilocytosis Anisocytosis Microcytosis Macrocytosis Schistocytes Sodium Potassium Chloride Carbon Dioxide Anion Gap BUN Creatinine Creat Clearance w eGFR POC Glucometer 174.36315 122.07861 Random Glucose Calcium Phosphorus Cancelled Magnesium Cancelled Total Bilirubin AST ALT Alkaline Phosphatase Total Protein Albumin Urine Color Urine Appearance Urine pH Ur Specific [place] Urine Protein Urine Glucose (UA) Urine Ketones Urine Blood Urine Nitrite Urine Bilirubin Urine Urobilinogen Ur Leukocyte Esterase Urine WBC (Auto) Urine RBC (Auto) Urine Bacteria 10/06/17 10/06/17 10/06/17 17:51 18:16 21:45 WBC RBC Hgb Hct MCV MCH MCHC RDW Plt Count MPV Neutrophils % Neutrophils % (Manual) Band Neutrophils % Lymphocytes % Lymphocytes % (Manual) Monocytes % Monocytes % (Manual) Eosinophils % Eosinophils % (Manual) Basophils % Basophils % (Manual) Myelocytes % (Man) Promyelocytes % (Man) Metamyelocytes Hypochromia Platelet Estimate Polychromasia Poikilocytosis Anisocytosis Microcytosis Macrocytosis Schistocytes Sodium Potassium Chloride Carbon Dioxide Anion Gap BUN Creatinine Creat Clearance w eGFR POC Glucometer 131.89928 212.75675 Random Glucose Calcium Phosphorus Magnesium Total Bilirubin AST ALT Alkaline Phosphatase Total Protein Albumin Urine Color Yellow Urine Appearance Cloudy Urine pH 5.0 Ur Specific [place] 1.017 Urine Protein 3+ H Urine Glucose (UA) 1+ H D Urine Ketones Negative Urine Blood Negative Urine Nitrite Negative Urine Bilirubin Negative Urine Urobilinogen Negative Ur Leukocyte Esterase 2+ H Urine WBC (Auto) 144 Urine RBC (Auto) 41 Urine Bacteria Moderate 10/07/17 10/07/17 10/07/17 00:28 05:17 05:17 WBC 6.2 RBC 2.96 L Hgb 8.4 L Hct 25.4 L MCV 85.8 MCH 28.5 MCHC 33.2 RDW 17.3 H Plt Count 266 D MPV 9.0 Neutrophils % 70.6 Neutrophils % (Manual) Band Neutrophils % Lymphocytes % 16.9 Lymphocytes % (Manual) Monocytes % 8.8 Monocytes % (Manual) Eosinophils % 3.2 Eosinophils % (Manual) Basophils % 0.5 Basophils % (Manual) Myelocytes % (Man) Promyelocytes % (Man) Metamyelocytes Hypochromia Platelet Estimate Polychromasia Poikilocytosis Anisocytosis Microcytosis Macrocytosis Schistocytes Sodium 145 Potassium 4.7 Chloride 109 H Carbon Dioxide 30 Anion Gap 6 L BUN 26 H Creatinine 1.3 H Creat Clearance w eGFR 41.78 POC Glucometer 241.11288 Random Glucose 196 H Calcium 7.4 L Phosphorus 2.7 Magnesium 1.9 Total Bilirubin 0.3 D AST 19 ALT 21 Alkaline Phosphatase 89 Total Protein 5.1 L Albumin 1.3 L Urine Color Urine Appearance Urine pH Ur Specific [place] Urine Protein Urine Glucose (UA) Urine Ketones Urine Blood Urine Nitrite Urine Bilirubin Urine Urobilinogen Ur Leukocyte Esterase Urine WBC (Auto) Urine RBC (Auto) Urine Bacteria 10/07/17 05:21 WBC RBC Hgb Hct MCV MCH MCHC RDW Plt Count MPV Neutrophils % Neutrophils % (Manual) Band Neutrophils % Lymphocytes % Lymphocytes % (Manual) Monocytes % Monocytes % (Manual) Eosinophils % Eosinophils % (Manual) Basophils % Basophils % (Manual) Myelocytes % (Man) Promyelocytes % (Man) Metamyelocytes Hypochromia Platelet Estimate Polychromasia Poikilocytosis Anisocytosis Microcytosis Macrocytosis Schistocytes Sodium Potassium Chloride Carbon Dioxide Anion Gap BUN Creatinine Creat Clearance w eGFR POC Glucometer 211.93948 Random Glucose Calcium Phosphorus Magnesium Total Bilirubin AST ALT Alkaline Phosphatase Total Protein Albumin Urine Color Urine Appearance Urine pH Ur Specific [place] Urine Protein Urine Glucose (UA) Urine Ketones Urine Blood Urine Nitrite Urine Bilirubin Urine Urobilinogen Ur Leukocyte Esterase Urine WBC (Auto) Urine RBC (Auto) Urine Bacteria Active Medications Generic Name Dose Route Start Last Admin Trade Name Freq PRN Reason Stop Dose Admin Acetaminophen 650 mg 10/06/17 20:09 Tylenol Oral Solution - PEG Q6H PRN FEVER Apixaban 5 mg 10/06/17 22:00 10/06/17 21:45 Eliquis - PO 5 mg BID [facility] Administration Artificial Tears 1 applic 10/06/17 22:00 10/06/17 21:48 Artificial Tears Ointment - OU 1 applic BID CORDEL[facility] Administration Atorvastatin Calcium 20 mg 10/06/17 22:00 10/06/17 21:46 Lipitor - PO 20 mg HS [facility] Administration Digoxin 0.125 mg 10/08/17 10:00 Lanoxin - PEG Q2D@1000 [facility] Diltiazem HCl 60 mg/ Diltiazem 90 mg 10/07/17 00:00 10/07/17 06:15 HCl 30 mg NGT 90 mg Q6HPO [facility] Administration Hydralazine HCl 10 mg 10/06/17 20:09 Apresoline Injection - IVPUSH Q6H PRN HYPERTENSION Insulin Aspart 1 vial 10/07/17 00:00 10/07/17 06:15 Novolog Vial Sliding Scale - SQ 4 units Q6H [facility] Administration Protocol Insulin Detemir 10 units 10/06/17 22:00 10/07/17 06:16 Levemir Vial SQ 10 units BID@0700,2200 [facility] Administration Metoprolol Tartrate 5 mg 10/06/17 20:09 Lopressor Injection - IVPUSH Q4H PRN HYPERTENSION Metoprolol Tartrate 50 mg 10/07/17 10:00 Lopressor - NGT BID [facility] Nystatin 1 applic 10/06/17 22:00 10/06/17 21:50 Mycostatin Ointment - TP 1 applic BID [facility] Administration Ondansetron HCl 4 mg 10/06/17 20:09 Zofran Injection IVPUSH Q6H PRN NAUSEA Quetiapine Fumarate 25 mg 10/06/17 22:00 10/06/17 21:46 Seroquel - PO 25 mg HS [facility] Administration Ranitidine HCl 150 mg 10/06/17 22:00 10/06/17 21:45 Zantac - PO 150 mg BID [facility] Administration Trazodone HCl 50 mg 10/06/17 22:00 10/06/17 21:46 Desyrel - PO 50 mg HS CORDELIA Administration ASSESSMENT/PLAN: 62 yo F with PMHx of HTN, paroxysmal atrial fibrillation on apixaban, DM, HLD, CKD, GERD and colon CA s/p colectomy 2011 with mets to lung admitted to ICU for AMS now vented following multiple failed extubations. Neuro/opth:. AMS- vented and off sedation, obeys commands Actively moving all limbs R/O critical illness polyneuropathy AMS 2/2 to cerebral edema from multiple acute infarcts with background Afib L eye hyphema- much improved cipro ointment OS Q2H Trazodone 50mg PO HS Seroquel 25mg PO HS Physical therapy Respiratory: Acute hypercapneic hypoxic resp failure- vented- [id number]-PB-GF-12, 400, 35%, 12/ 5. Tolerated CPAP settings CXR No change in secretions Renal: SUSAN R/O CKD Cr- 1.3 Hyperkalemia- hypernatremia- hypophosphatemia- Hypermagnesemia CMP,Mg, Phosphorus On glucerna feeds Hold ramipril (with failure) Monitor Metabolic/Endocrine/GI/Lines: DM bgm On glucerna feeds Hypernatremic- improved Cont levemir- 15u Cont ISS Hyperkalemia- improved Lines:vent, PEG, RUE medline line, Cardio: Htn HLD Lopressor iv 5mg Q4H Continue eliquis 5mg PO iv metoprolol prn -5mg Digoxin 0.125 Q2D cardizem 90mg Q6H PO Iv hydrazaline 10mg Q6H ivpush PRN PO metoprolol 50mg bid Digoxin level Hemonc: Anemia- stable post transfusion 09/23 Colorectal cancer with lung mets ID: Now spiking low grade fevers- Panculture stat D/c bateman D/c rectal tube completed treatment for PNA restarted on Zosyn-3.35 (09/23/17) Cont Cipro eye drops Cont artificial tears Monitor daily CXR Prophylaxis: Continue eliquis Heel pads D/C SCDs Dispo: Vented - transfer to [address] [place] [address] type - Emergency Visit Emergency Visit: Yes ED Registration Date: 09/10/17 Care time: The patient presented to the Emergency Department on the above date and was hospitalized for further evaluation of their emergent condition. - New Patient This patient is new to me today: No - Critical Care Critical Care patient: Yes Total Critical Care Time (in minutes): 38 Critical Care Statement: The care of this patient involved high complexity decision making to prevent further life threatening deterioration of the patient 's condition and/or to evaluate & treat vital organ system(s) failure or risk of failure. - Discharge Referral Referred to [facility] Med [facility].C.: No
[2017-10-07] MEDS ORDERED: PT OWN MED DRAWER 7, Y5N ONE (09:56)
[2017-10-07] MEDS: APIXABAN 5 MG TABLET PO SCH ×2 (09:57→21:33)
[2017-10-07] MEDS: METOPROLOL TARTRATE 50 MG TABLET (FP) NGT SCH ×2 (09:58→21:33)
[2017-10-07] MEDS: RANITIDINE HCL 150 MG TABLET (FP) PO SCH ×2 (09:58→21:32)
[2017-10-07] MEDS: MINERAL OIL/PETROLATUM,WHITE 3.5 GM TUBE OU SCH ×2 (09:59→21:32)
[2017-10-07] MEDS: NYSTATIN 100000 UNIT/GM TOPICAL OINTMENT 15 GM TUBE TP SCH ×2 (10:00→21:30)
[2017-10-07] MEDS ORDERED: METOPROLOL TARTRATE 50 MG TABLET (FP) NGT SCH (10:00)
--- NOTE | 2017-10-07 11:00 | PN ---
Progress Note, Physician Chief Complaint: patient seen and examined plan for transfer to [facility] surg floor / placement at [place] patient opens her eyes when her name is called and can answer with nodding her head - Current Medication List Current Medications: Active Medications Acetaminophen (Tylenol Oral Solution -) 650 mg PEG Q6H PRN PRN Reason: FEVER Apixaban (Eliquis -) 5 mg PO BID [facility] Last Admin: 10/07/17 09:57 Dose: 5 mg Artificial Tears (Artificial Tears Ointment -) 1 applic OU BID [facility] Last Admin: 10/07/17 09:59 Dose: 1 applic Atorvastatin Calcium (Lipitor -) 20 mg PO HS [facility] Last Admin: 10/06/17 21:46 Dose: 20 mg Digoxin (Lanoxin -) 0.125 mg PEG Q2D@1000 [facility] Diltiazem HCl 60 mg/ Diltiazem (HCl 30 mg) 90 mg NGT Q6HPO [facility] Last Admin: 10/07/17 06:15 Dose: 90 mg Hydralazine HCl (Apresoline Injection -) 10 mg IVPUSH Q6H PRN PRN Reason: HYPERTENSION Insulin Aspart (Novolog Vial Sliding Scale -) 1 vial SQ Q6H [facility] PRN Reason: Protocol Last Admin: 10/07/17 06:15 Dose: 4 units Insulin Detemir (Levemir Vial) 10 units SQ BID@0700,2200 [facility] Last Admin: 10/07/17 06:16 Dose: 10 units Metoprolol Tartrate (Lopressor Injection -) 5 mg IVPUSH Q4H PRN PRN Reason: HYPERTENSION Metoprolol Tartrate (Lopressor -) 50 mg NGT BID [facility] Last Admin: 10/07/17 09:58 Dose: 50 mg Nystatin (Mycostatin Ointment -) 1 applic TP BID [facility] Last Admin: 10/07/17 10:00 Dose: 1 applic Ondansetron HCl (Zofran Injection) 4 mg IVPUSH Q6H PRN PRN Reason: NAUSEA Quetiapine Fumarate (Seroquel -) 25 mg PO [facility] Last Admin: 10/06/17 21:46 Dose: 25 mg Ranitidine HCl (Zantac -) 150 mg PO BID [facility] Last Admin: 10/07/17 09:58 Dose: 150 mg Trazodone HCl (Desyrel -) 50 mg PO [facility] Last Admin: 10/06/17 21:46 Dose: 50 mg - Objective Vital Signs: Vital Signs Temperature 99.5 F 10/07/17 06:00 Pulse Rate 89 10/07/17 09:36 Respiratory Rate 17 10/07/17 09:10 Blood Pressure 156/66 10/07/17 08:00 O2 Sat by Pulse Oximetry (%) 99 10/07/17 09:36 Neck: Yes: Other (trach) Cardiovascular: Yes: Regular Rate and Rhythm, S1, S2 Respiratory: Yes: Mechanically Ventilated Gastrointestinal: Yes: Normal Bowel Sounds, Soft, Other (peg and abdominal binder) Labs: CBC, BMP 10/07/17 05:17 10/07/17 05:17 INR, PTT INR 0.98 (0.82-1.09) 10/02/17 05:30 Problem List - Problems (1) Respiratory failure Assessment/Plan: s/p tracheostomy vent support Code(s): J96.90 - RESPIRATORY FAILURE, UNSP, UNSP W HYPOXIA OR HYPERCAPNIA (2) Pneumonia Assessment/Plan: iv zosyn s/p 8 day course abx stopped Code(s): J18.9 - PNEUMONIA, UNSPECIFIED ORGANISM (3) Atrial fibrillation Assessment/Plan: digoxin,cardizem and metoprolol eliquis bid Code(s): I48.91 - UNSPECIFIED ATRIAL FIBRILLATION (4) Anemia Assessment/Plan: stool occult blood ordered for today ppi GI follow up noted Code(s): D64.9 - ANEMIA, UNSPECIFIED (5) Diabetes Assessment/Plan: insulin bgm ok for now Code(s): E11.9 - TYPE 2 DIABETES MELLITUS WITHOUT COMPLICATIONS Qualifiers: Diabetes mellitus type: type 2 (6) CVA (cerebral vascular accident) Assessment/Plan: S/p multiple acute embolic infarcts - s/p trach on vent s/p peg now needs snf placement Code(s): I63.9 - CEREBRAL INFARCTION, UNSPECIFIED
--- NOTE | 2017-10-07 12:34 | PN ---
Teaching Attending Note Name of Resident: Lisa Mott ATTENDING PHYSICIAN STATEMENT I saw and evaluated the patient. I reviewed the resident's note and discussed the case with the resident. I agree with the resident's findings and plan as documented. SUBJECTIVE: Pt seen and examined in the ICU. Vented, arousable when name called. Low grade fever yesterday. Vented on volume assist control with 35% FiO2. OBJECTIVE: Last Vital Signs Temp Pulse Resp BP Pulse Ox 99.6 F 78 22 132/66 97 10/07/17 10:00 10/07/17 10:00 10/07/17 11:38 10/07/17 10:00 10/07/17 11:38 Intake & Output 10/04/17 10/05/17 10/06/17 10/07/17 23:59 23:59 23:59 23:59 Intake Total 7623 427 5679 840 Output Total 580 395 1929 Balance 1020 -110 730 840 Weight 81.8 kg 86.183 kg 85.82 kg 85.417 kg Gen: vented, arousable Heart: irregular Lung: scattered rhonchi Abd: soft, nontender Ext: + edema CBC, BMP 10/07/17 05:17 10/07/17 05:17 Active Medications Acetaminophen (Tylenol Oral Solution -) 650 mg PEG Q6H PRN PRN Reason: FEVER Apixaban (Eliquis -) 5 mg PO BID [facility] Last Admin: 10/07/17 09:57 Dose: 5 mg Artificial Tears (Artificial Tears Ointment -) 1 applic OU BID [facility] Last Admin: 10/07/17 09:59 Dose: 1 applic Atorvastatin Calcium (Lipitor -) 20 mg PO HS [facility] Last Admin: 10/06/17 21:46 Dose: 20 mg Digoxin (Lanoxin -) 0.125 mg PEG Q2D@1000 [facility] Diltiazem HCl 60 mg/ Diltiazem (HCl 30 mg) 90 mg NGT Q6HPO [facility] Last Admin: 10/07/17 06:15 Dose: 90 mg Hydralazine HCl (Apresoline Injection -) 10 mg IVPUSH Q6H PRN PRN Reason: HYPERTENSION Insulin Aspart (Novolog Vial Sliding Scale -) 1 vial SQ Q6H [facility] PRN Reason: Protocol Last Admin: 10/07/17 06:15 Dose: 4 units Insulin Detemir (Levemir Vial) 10 units SQ BID@0700,2200 [facility] Last Admin: 10/07/17 06:16 Dose: 10 units Metoprolol Tartrate (Lopressor Injection -) 5 mg IVPUSH Q4H PRN PRN Reason: HYPERTENSION Metoprolol Tartrate (Lopressor -) 50 mg NGT BID [facility] Last Admin: 10/07/17 09:58 Dose: 50 mg Nystatin (Mycostatin Ointment -) 1 applic TP BID [facility] Last Admin: 10/07/17 10:00 Dose: 1 applic Ondansetron HCl (Zofran Injection) 4 mg IVPUSH Q6H PRN PRN Reason: NAUSEA Quetiapine Fumarate (Seroquel -) 25 mg PO [facility] Last Admin: 10/06/17 21:46 Dose: 25 mg Ranitidine HCl (Zantac -) 150 mg PO BID [facility] Last Admin: 10/07/17 09:58 Dose: 150 mg Trazodone HCl (Desyrel -) 50 mg PO [facility] Last Admin: 10/06/17 21:46 Dose: 50 mg ASSESSMENT AND PLAN: Multiple Acute Embolic CVA Acute Hypoxic Respiratory Failure s/p Tracheostomy Aspiration Pneumonia Atrial Fibrillation with RVR Metastatic Colon Ca to Lung Acute on Chronic Renal Failure HTN DM Hypercholesterolemia - completed antibiotics - f/u pending cultures including urine culture - titrate rate control - continue anticoagulation - monitor urine output, creatinine - enteral feeds - increase free water - spontaneous breathing trials as tolerated, placed on SIMV - DVT/GI prophylaxis - can monitor on vent floor critical care time spent in reviewing chart, evaluating patient and formulating plan 35 min
--- NOTE | 2017-10-07 14:59 | PN ---
Progress Note, Physician History of Present Illness: Pt seen and examined at bedside. She remains in the ICU. She remains mechanically ventilated. - Current Medication List Current Medications: Active Medications Acetaminophen (Tylenol Oral Solution -) 650 mg PEG Q6H PRN PRN Reason: FEVER Apixaban (Eliquis -) 5 mg PO BID [facility] Last Admin: 10/07/17 09:57 Dose: 5 mg Artificial Tears (Artificial Tears Ointment -) 1 applic OU BID [facility] Last Admin: 10/07/17 09:59 Dose: 1 applic Atorvastatin Calcium (Lipitor -) 20 mg PO HS [facility] Last Admin: 10/06/17 21:46 Dose: 20 mg Digoxin (Lanoxin -) 0.125 mg PEG Q2D@1000 [facility] Diltiazem HCl 60 mg/ Diltiazem (HCl 30 mg) 90 mg NGT Q6HPO [facility] Last Admin: 10/07/17 06:15 Dose: 90 mg Hydralazine HCl (Apresoline Injection -) 10 mg IVPUSH Q6H PRN PRN Reason: HYPERTENSION Insulin Aspart (Novolog Vial Sliding Scale -) 1 vial SQ Q6H [facility] PRN Reason: Protocol Last Admin: 10/07/17 06:15 Dose: 4 units Insulin Detemir (Levemir Vial) 10 units SQ BID@0700,2200 [facility] Last Admin: 10/07/17 06:16 Dose: 10 units Metoprolol Tartrate (Lopressor Injection -) 5 mg IVPUSH Q4H PRN PRN Reason: HYPERTENSION Metoprolol Tartrate (Lopressor -) 50 mg NGT BID [facility] Last Admin: 10/07/17 09:58 Dose: 50 mg Nystatin (Mycostatin Ointment -) 1 applic TP BID [facility] Last Admin: 10/07/17 10:00 Dose: 1 applic Ondansetron HCl (Zofran Injection) 4 mg IVPUSH Q6H PRN PRN Reason: NAUSEA Quetiapine Fumarate (Seroquel -) 25 mg PO [facility] Last Admin: 10/06/17 21:46 Dose: 25 mg Ranitidine HCl (Zantac -) 150 mg PO BID [facility] Last Admin: 10/07/17 09:58 Dose: 150 mg Trazodone HCl (Desyrel -) 50 mg PO [facility] Last Admin: 10/06/17 21:46 Dose: 50 mg - Objective Vital Signs: Vital Signs Temperature 99.6 F 10/07/17 10:00 Pulse Rate 82 10/07/17 12:00 Respiratory Rate 23 10/07/17 14:13 Blood Pressure 152/75 10/07/17 12:00 O2 Sat by Pulse Oximetry (%) 97 10/07/17 11:38 Constitutional: Yes: Calm Eyes: Yes: Conjunctiva Clear HENT: Yes: Atraumatic Neck: Yes: Other (trache) Cardiovascular: Yes: S1 Respiratory: Yes: Mechanically Ventilated Gastrointestinal: Yes: Soft, Other (peg) Genitourinary: Yes: Incontinence Musculoskeletal: Yes: Muscle Weakness Edema: Yes Edema: LLE: Trace, RLE: Trace Neurological: Yes: Oriented Labs: CBC, BMP 10/07/17 05:17 10/07/17 05:17 INR, PTT INR 0.98 (0.82-1.09) 10/02/17 05:30 - ....Imaging Chest X-ray: Report Reviewed Problem List - Problems (1) Brain metastasis Code(s): C79.31 - SECONDARY MALIGNANT NEOPLASM OF BRAIN (2) Headache Code(s): R51 - HEADACHE Qualifiers: Headache chronicity pattern: unspecified pattern Intractability: intractable (3) Metastatic colorectal cancer Code(s): C78.5 - SECONDARY MALIGNANT NEOPLASM OF LARGE INTESTINE AND RECTUM (4) SUSAN (acute kidney injury) Code(s): N17.9 - ACUTE KIDNEY FAILURE, UNSPECIFIED (5) Atrial fibrillation Code(s): I48.91 - UNSPECIFIED ATRIAL FIBRILLATION (6) Cancer, colon Code(s): C18.9 - MALIGNANT NEOPLASM OF COLON, UNSPECIFIED Qualifiers: Colon location: unspecified part of colon Qualified Code(s): C18.9 - Malignant neoplasm of colon, unspecified (7) Lung mass Code(s): R91.8 - OTHER NONSPECIFIC ABNORMAL FINDING OF LUNG FIELD Assessment/Plan Current Medications Generic Name Dose Route Start Last Admin Trade Name Freq PRN Reason Stop Dose Admin Acetaminophen 650 mg 10/06/17 20:09 Tylenol Oral Solution - PEG Q6H PRN FEVER Apixaban 5 mg 10/06/17 22:00 10/07/17 09:57 Eliquis - PO 5 mg BID [facility] Administration Artificial Tears 1 applic 10/06/17 22:00 10/07/17 09:59 Artificial Tears Ointment - OU 1 applic BID [facility] Administration Atorvastatin Calcium 20 mg 10/06/17 22:00 10/06/17 21:46 Lipitor - PO 20 mg HS [facility]IA Administration Digoxin 0.125 mg 10/08/17 10:00 Lanoxin - PEG Q2D@1000 [facility] Diltiazem HCl 60 mg/ Diltiazem 90 mg 10/07/17 00:00 10/07/17 06:15 HCl 30 mg NGT 90 mg Q6HPO [facility]IA Administration Hydralazine HCl 10 mg 10/06/17 20:09 Apresoline Injection - IVPUSH Q6H PRN HYPERTENSION Insulin Aspart 1 vial 10/07/17 00:00 10/07/17 06:15 Novolog Vial Sliding Scale - SQ 4 units Q6H [facility] Administration Protocol Insulin Detemir 10 units 10/06/17 22:00 10/07/17 06:16 Levemir Vial SQ 10 units BID@0700,2200 [facility] Administration Metoprolol Tartrate 5 mg 10/06/17 20:09 Lopressor Injection - IVPUSH Q4H PRN HYPERTENSION Metoprolol Tartrate 50 mg 10/07/17 10:00 10/07/17 09:58 Lopressor - NGT 50 mg BID [facility] Administration Nystatin 1 applic 10/06/17 22:00 10/07/17 10:00 Mycostatin Ointment - TP 1 applic BID [facility] Administration Ondansetron HCl 4 mg 10/06/17 20:09 Zofran Injection IVPUSH Q6H PRN NAUSEA Quetiapine Fumarate 25 mg 10/06/17 22:00 10/06/17 21:46 Seroquel - PO 25 mg HS [facility] Administration Ranitidine HCl 150 mg 10/06/17 22:00 10/07/17 09:58 Zantac - PO 150 mg BID [facility] Administration Trazodone HCl 50 mg 10/06/17 22:00 10/06/17 21:46 Desyrel - PO 50 mg HS [facility] Administration Impression 1. CKD 2. SUSAN 3. DM 4. htn 5. chol 6. chemo port malfunction 7. a-fib 8. lung mass 9. proteinuria 10. adenocarcinoma 11. CVA 12. acute resp failure 13. hyperkalemia 14. hypernatremia 15. pleural effusions Plan - cont feeds - cont current meds - pulm rehab - renal function is stable - cont vent support with weaning per pulmonary - will follow PRN Dr Llanos
--- NOTE | 2017-10-07 18:52 | PN ---
Progress Note (short form) - Note Progress Note: ENT s/p tracheotomy POD 6 trach secure, functioning, minimal drainage remains on ventilator transfer out of ICU planned Impression: stable s/p tracheotomy respiratory failure, ventilator dependent s/p CVA colorectal carcinoma, metastatic Recommend: continue trach care ventilator support Ben Rainey MD FACS Problem List - Problems (1) Respiratory failure Code(s): J96.90 - RESPIRATORY FAILURE, UNSP, UNSP W HYPOXIA OR HYPERCAPNIA
[2017-10-07] MEDS: QUEtiapine FUMARATE 25 MG TABLET (FP) PO SCH (21:32)
[2017-10-07] MEDS: traZODone HCL 50 MG TABLET (FP) PO SCH (21:33)
[2017-10-07] MEDS: ATORVASTATIN CA 20 MG TABLET (FP) PO SCH (21:33)
[2017-10-07] MEDS: ACETAMINOPHEN 650 MG/20.3 ML ORAL SOLUTION (CUPS) PEG PRN (21:39)
[2017-10-08] MEDS ORDERED: dilTIAZem HCL 30 MG TABLET (FP) ONE ×5 (00:04→20:20)
[2017-10-08] MEDS ORDERED: dilTIAZem HCL 60 MG TABLET (FP) ONE ×5 (00:04→20:20)
[2017-10-08] MEDS: DILTIAZEM 60 MG, DILTIAZEM 30 MG NGT SCH ×5 (00:09→23:00)
[2017-10-08] MEDS: INSULIN SLIDING SCALE (NOVOLOG) 1 VIAL SQ SCH ×5 (00:15→23:01)
[2017-10-08] MEDS: INSULIN DETEMIR 100 UNITS/ML MDV SQ SCH ×2 (06:06→22:15)
[2017-10-08 06:54] LABS: HEMATOCRIT 23.2 % (32.4-45.2); HEMOGLOBIN 7.6 GM/dL (10.7-15.3); MCH 28.2 pg (25.7-33.7); MEAN CELL VOLUME 85.3 fl (80-96); MEAN PLT VOLUME 8.7 fl (7.5-11.1); PLATELET COUNT 310 K/MM3 (134-434); RBC 2.72 M/mm3 (3.60-5.2); RDW 17.4 % (11.6-15.6); WHITE BLOOD COUNT 6.5 K/mm3 (4.0-10.0)
[2017-10-08 07:15] LABS: CHLORIDE 108 mmol/L (98-107); POTASSIUM 4.7 mmol/L (3.5-5.1); SODIUM 142 mmol/L (136-145)
[2017-10-08 07:23] LABS: ALBUMIN 1.2 g/dl (3.4-5.0); ALK PHOS 84 U/L (45-117); ANION GAP 6 (8-16); BILIRUBIN,TOTAL 0.3 mg/dL (0.2-1.0); BLOOD UREA NITROGEN 32 mg/dL (7-18); CALCIUM 7.7 mg/dL (8.5-10.1); CO2 28 mmol/L (21-32); CREATININE 1.3 mg/dL (0.55-1.02); GLUCOSE,RANDOM 218 mg/dL (74-106); PHOSPHOROUS 2.2 mg/dL (2.5-4.9); SGOT/AST 20 U/L (15-37); SGPT/ALT 20 U/L (12-78); TOT PROT 4.6 g/dl (6.4-8.2)
[2017-10-08] MEDS ORDERED: FUROSEMIDE 40 MG/4 ML INJECTABLE VIAL IVPUSH SCH (09:53)
--- NOTE | 2017-10-08 09:53 | PN ---
Progress Note, Physician - Current Medication List Current Medications: Active Medications Acetaminophen (Tylenol Oral Solution -) 650 mg PEG Q6H PRN PRN Reason: FEVER Last Admin: 10/07/17 21:39 Dose: 650 mg Apixaban (Eliquis -) 5 mg PO BID [facility] Last Admin: 10/07/17 21:33 Dose: 5 mg Artificial Tears (Artificial Tears Ointment -) 1 applic OU BID [facility] Last Admin: 10/07/17 21:32 Dose: 1 applic Atorvastatin Calcium (Lipitor -) 20 mg PO HS [facility] Last Admin: 10/07/17 21:33 Dose: 20 mg Digoxin (Lanoxin -) 0.125 mg PEG Q2D@1000 [facility] Diltiazem HCl 60 mg/ Diltiazem (HCl 30 mg) 90 mg NGT Q6HPO [facility] Last Admin: 10/08/17 05:35 Dose: 90 mg Hydralazine HCl (Apresoline Injection -) 10 mg IVPUSH Q6H PRN PRN Reason: HYPERTENSION Insulin Aspart (Novolog Vial Sliding Scale -) 1 vial SQ Q6H [facility] PRN Reason: Protocol Last Admin: 10/08/17 06:06 Dose: 4 units Insulin Detemir (Levemir Vial) 10 units SQ BID@0700,2200 [facility] Last Admin: 10/08/17 06:06 Dose: 10 units Metoprolol Tartrate (Lopressor Injection -) 5 mg IVPUSH Q4H PRN PRN Reason: HYPERTENSION Metoprolol Tartrate (Lopressor -) 50 mg NGT BID [facility] Last Admin: 10/07/17 21:33 Dose: 50 mg Nystatin (Mycostatin Ointment -) 1 applic TP BID [facility] Last Admin: 10/07/17 21:30 Dose: 1 applic Ondansetron HCl (Zofran Injection) 4 mg IVPUSH Q6H PRN PRN Reason: NAUSEA Quetiapine Fumarate (Seroquel -) 25 mg PO [facility] Last Admin: 10/07/17 21:32 Dose: 25 mg Ranitidine HCl (Zantac -) 150 mg PO BID [facility] Last Admin: 10/07/17 21:32 Dose: 150 mg Trazodone HCl (Desyrel -) 50 mg PO [facility] Last Admin: 10/07/17 21:33 Dose: 50 mg - Objective Vital Signs: Vital Signs Temperature 98.9 F 01/31/18 06:00 Pulse Rate 72 10/08/17 06:00 Respiratory Rate 12 10/08/17 07:11 Blood Pressure 135/66 10/08/17 06:00 O2 Sat by Pulse Oximetry (%) 97 10/07/17 11:38 Cardiovascular: Yes: S1, S2 Respiratory: Yes: Mechanically Ventilated Gastrointestinal: Yes: Normal Bowel Sounds, Soft. No: Tenderness Labs: CBC, BMP 10/08/17 06:05 10/08/17 06:05 INR, PTT INR 0.98 (0.82-1.09) 10/02/17 05:30 Problem List - Problems (1) Respiratory failure Code(s): J96.90 - RESPIRATORY FAILURE, UNSP, UNSP W HYPOXIA OR HYPERCAPNIA (2) Brain metastasis Code(s): C79.31 - SECONDARY MALIGNANT NEOPLASM OF BRAIN (3) CVA (cerebral vascular accident) Code(s): I63.9 - CEREBRAL INFARCTION, UNSPECIFIED (4) Metastatic colorectal cancer Code(s): C78.5 - SECONDARY MALIGNANT NEOPLASM OF LARGE INTESTINE AND RECTUM (5) Atrial fibrillation Code(s): I48.91 - UNSPECIFIED ATRIAL FIBRILLATION (6) Diabetes Code(s): E11.9 - TYPE 2 DIABETES MELLITUS WITHOUT COMPLICATIONS Qualifiers: Diabetes mellitus type: type 2 (7) Hypernatremia Code(s): E87.0 - HYPEROSMOLALITY AND HYPERNATREMIA Assessment/Plan - Problems (1) Respiratory failure Assessment/Plan: s/p tracheostomy vent support Code(s): J96.90 - RESPIRATORY FAILURE, UNSP, UNSP W HYPOXIA OR HYPERCAPNIA (2) Pneumonia Assessment/Plan: iv zosyn s/p 8 day course abx stopped Code(s): J18.9 - PNEUMONIA, UNSPECIFIED ORGANISM (3) Atrial fibrillation Assessment/Plan: digoxin,cardizem and metoprolol eliquis bid Code(s): I48.91 - UNSPECIFIED ATRIAL FIBRILLATION (4) Anemia Assessment/Plan: stool occult blood ordered for today ppi prbc today GI follow up noted Code(s): D64.9 - ANEMIA, UNSPECIFIED (5) Diabetes Assessment/Plan: insulin bgm ok for now Code(s): E11.9 - TYPE 2 DIABETES MELLITUS WITHOUT COMPLICATIONS Qualifiers: Diabetes mellitus type: type 2 (6) CVA (cerebral vascular accident) Assessment/Plan: S/p multiple acute embolic infarcts - s/p trach on vent s/p peg now needs snf placement Code(s): I63.9 - CEREBRAL INFARCTION, UNSPECIFIED
[2017-10-08] MEDS ORDERED: PT OWN MED DRAWER 7, Y5N ONE ×2 (10:14→22:15)
[2017-10-08] MEDS: APIXABAN 5 MG TABLET PO SCH ×2 (10:54→22:15)
[2017-10-08] MEDS: DIGOXIN 0.125 MG TABLET (FP) PEG SCH (10:54)
[2017-10-08] MEDS: METOPROLOL TARTRATE 50 MG TABLET (FP) NGT SCH ×2 (10:55→22:16)
[2017-10-08] MEDS: RANITIDINE HCL 150 MG TABLET (FP) PO SCH ×2 (10:55→22:20)
[2017-10-08] MEDS: MINERAL OIL/PETROLATUM,WHITE 3.5 GM TUBE OU SCH ×2 (10:56→22:12)
[2017-10-08] MEDS: NYSTATIN 100000 UNIT/GM TOPICAL OINTMENT 15 GM TUBE TP SCH ×2 (10:57→22:17)
[2017-10-08 11:46] LABS: PLATELET ESTIMATE NORMAL
--- NOTE | 2017-10-08 12:12 | PN ---
Progress Note, Physician History of Present Illness: Pt seen and examined at bedside. She is now in the medical dunbar. - Current Medication List Current Medications: Active Medications Acetaminophen (Tylenol Oral Solution -) 650 mg PEG Q6H PRN PRN Reason: FEVER Last Admin: 10/07/17 21:39 Dose: 650 mg Apixaban (Eliquis -) 5 mg PO BID [facility] Last Admin: 10/08/17 10:54 Dose: 5 mg Artificial Tears (Artificial Tears Ointment -) 1 applic OU BID [facility] Last Admin: 10/08/17 10:56 Dose: 1 applic Atorvastatin Calcium (Lipitor -) 20 mg PO [facility] Last Admin: 10/07/17 21:33 Dose: 20 mg Digoxin (Lanoxin -) 0.125 mg PEG Q2D@1000 [facility] Last Admin: 10/08/17 10:54 Dose: 0.125 mg Diltiazem HCl 60 mg/ Diltiazem (HCl 30 mg) 90 mg NGT Q6HPO [facility] Last Admin: 10/08/17 05:35 Dose: 90 mg Furosemide (Lasix Injection -) 40 mg IVPUSH [employer] DIRECTOR [facility] Stop: 10/08/17 16:00 Hydralazine HCl (Apresoline Injection -) 10 mg IVPUSH Q6H PRN PRN Reason: HYPERTENSION Insulin Aspart (Novolog Vial Sliding Scale -) 1 vial SQ Q6H [facility] PRN Reason: Protocol Last Admin: 10/08/17 06:06 Dose: 4 units Insulin Detemir (Levemir Vial) 10 units SQ BID@0700,2200 [facility] Last Admin: 10/08/17 06:06 Dose: 10 units Metoprolol Tartrate (Lopressor Injection -) 5 mg IVPUSH Q4H PRN PRN Reason: HYPERTENSION Metoprolol Tartrate (Lopressor -) 50 mg NGT BID [facility] Last Admin: 10/08/17 10:55 Dose: 50 mg Nystatin (Mycostatin Ointment -) 1 applic TP BID [facility] Last Admin: 10/08/17 10:57 Dose: 1 applic Ondansetron HCl (Zofran Injection) 4 mg IVPUSH Q6H PRN PRN Reason: NAUSEA Quetiapine Fumarate (Seroquel -) 25 mg PO [facility] Last Admin: 10/07/17 21:32 Dose: 25 mg Ranitidine HCl (Zantac -) 150 mg PO BID [facility] Last Admin: 10/08/17 10:55 Dose: 150 mg Trazodone HCl (Desyrel -) 50 mg PO HS [facility] Last Admin: 10/07/17 21:33 Dose: 50 mg - Objective Vital Signs: Vital Signs Temperature 98.9 F 10/08/17 06:00 Pulse Rate 89 10/08/17 10:54 Respiratory Rate 14 10/08/17 10:00 Blood Pressure 147/83 10/08/17 10:00 O2 Sat by Pulse Oximetry (%) 97 10/07/17 11:38 Constitutional: Yes: Calm Eyes: Yes: Conjunctiva Clear HENT: Yes: Atraumatic Neck: Yes: Other (trache) Cardiovascular: Yes: S1, S2 Respiratory: Yes: Mechanically Ventilated Gastrointestinal: Yes: Soft Genitourinary: Yes: Incontinence Musculoskeletal: Yes: Muscle Weakness Edema: Yes Edema: LLE: Trace, RLE: Trace Neurological: Yes: Other (awake) Labs: CBC, BMP 10/08/17 06:05 10/08/17 06:05 INR, PTT INR 0.98 (0.82-1.09) 10/02/17 05:30 Problem List - Problems (1) Brain metastasis Code(s): C79.31 - SECONDARY MALIGNANT NEOPLASM OF BRAIN (2) Headache Code(s): R51 - HEADACHE Qualifiers: Headache chronicity pattern: unspecified pattern Intractability: intractable (3) Metastatic colorectal cancer Code(s): C78.5 - SECONDARY MALIGNANT NEOPLASM OF LARGE INTESTINE AND RECTUM (4) SUSAN (acute kidney injury) Code(s): N17.9 - ACUTE KIDNEY FAILURE, UNSPECIFIED (5) Atrial fibrillation Code(s): I48.91 - UNSPECIFIED ATRIAL FIBRILLATION (6) Cancer, colon Code(s): C18.9 - MALIGNANT NEOPLASM OF COLON, UNSPECIFIED Qualifiers: Colon location: unspecified part of colon Qualified Code(s): C18.9 - Malignant neoplasm of colon, unspecified (7) Lung mass Code(s): R91.8 - OTHER NONSPECIFIC ABNORMAL FINDING OF LUNG FIELD Assessment/Plan Current Medications Generic Name Dose Route Start Last Admin Trade Name Freq PRN Reason Stop Dose Admin Acetaminophen 650 mg 10/06/17 20:09 10/07/17 21:39 Tylenol Oral Solution - PEG 650 mg Q6H PRN Administration FEVER Apixaban 5 mg 10/06/17 22:00 10/08/17 10:54 Eliquis - PO 5 mg BID [facility] Administration Artificial Tears 1 applic 10/06/17 22:00 10/08/17 10:56 Artificial Tears Ointment - OU 1 applic BID [facility] Administration Atorvastatin Calcium 20 mg 10/06/17 22:00 10/07/17 21:33 Lipitor - PO 20 mg HS [facility] Administration Digoxin 0.125 mg 10/08/17 10:00 10/08/17 10:54 Lanoxin - PEG 0.125 mg Q2D@1000 [facility] Administration Diltiazem HCl 60 mg/ Diltiazem 90 mg 10/07/17 00:00 10/08/17 05:35 HCl 30 mg NGT 90 mg Q6HPO [facility] Administration Furosemide 40 mg 10/08/17 09:53 Lasix Injection - IVPUSH 10/08/17 16:00 [employer] DIRECTOR [facility] Hydralazine HCl 10 mg 10/06/17 20:09 Apresoline Injection - IVPUSH Q6H PRN HYPERTENSION Insulin Aspart 1 vial 10/07/17 00:00 10/08/17 06:06 Novolog Vial Sliding Scale - SQ 4 units Q6H [facility] Administration Protocol Insulin Detemir 10 units 10/06/17 22:00 10/08/17 06:06 Levemir Vial SQ 10 units BID@0700,2200 [facility] Administration Metoprolol Tartrate 5 mg 10/06/17 20:09 Lopressor Injection - IVPUSH Q4H PRN HYPERTENSION Metoprolol Tartrate 50 mg 10/07/17 10:00 10/08/17 10:55 Lopressor - NGT 50 mg BID [facility] Administration Nystatin 1 applic 10/06/17 22:00 10/08/17 10:57 Mycostatin Ointment - TP 1 applic BID [facility] Administration Ondansetron HCl 4 mg 10/06/17 20:09 Zofran Injection IVPUSH Q6H PRN NAUSEA Quetiapine Fumarate 25 mg 10/06/17 22:00 10/07/17 21:32 Seroquel - PO 25 mg HS [facility] Administration Ranitidine HCl 150 mg 10/06/17 22:00 10/08/17 10:55 Zantac - PO 150 mg BID [facility] Administration Trazodone HCl 50 mg 10/06/17 22:00 10/07/17 21:33 Desyrel - PO 50 mg HS [facility] Administration Impression 1. CKD 2. SUSAN 3. DM 4. htn 5. chol 6. chemo port malfunction 7. a-fib 8. lung mass 9. proteinuria 10. adenocarcinoma 11. CVA 12. acute resp failure 13. hyperkalemia 14. hypernatremia 15. pleural effusions Plan - recommend lasix with prbc - monitor hg - vent support - cont to monitor mental status - will follow PRN Dr Llanos
--- NOTE | 2017-10-08 15:52 | PN ---
Progress Note (short form) - Note Progress Note: asked to see for fevers s/p trach s/p gt awake and alert zosyn dced 10/01 intermittent low grade temps noted follows commands Vital Signs Period Temp Pulse Resp BP Sys/Mcdaniel Pulse Ox Last 24 Hr 98.6 F-100.8 F 66-90 12-21 127-164/60-83 trach to vent cor-rrr lungs decreased bs at bases abd soft,nt ext trace edema picc line site no erythema CBC, BMP 10/08/17 06:05 10/08/17 06:05 cultures ordered- blood and urine cxray unchanged Current Medications Acetaminophen (Tylenol Oral Solution -) 650 mg PEG Q6H PRN PRN Reason: FEVER Last Admin: 10/07/17 21:39 Dose: 650 mg Apixaban (Eliquis -) 5 mg PO BID [facility] Last Admin: 10/08/17 10:54 Dose: 5 mg Artificial Tears (Artificial Tears Ointment -) 1 applic OU BID [facility] Last Admin: 10/08/17 10:56 Dose: 1 applic Atorvastatin Calcium (Lipitor -) 20 mg PO HS [facility] Last Admin: 10/07/17 21:33 Dose: 20 mg Digoxin (Lanoxin -) 0.125 mg PEG Q2D@1000 [facility] Last Admin: 10/08/17 10:54 Dose: 0.125 mg Diltiazem HCl 60 mg/ Diltiazem (HCl 30 mg) 90 mg NGT Q6HPO [facility] Last Admin: 10/08/17 13:53 Dose: 90 mg Furosemide (Lasix Injection -) 40 mg IVPUSH [employer] [facility] Stop: 10/08/17 16:00 Hydralazine HCl (Apresoline Injection -) 10 mg IVPUSH Q6H PRN PRN Reason: HYPERTENSION Insulin Aspart (Novolog Vial Sliding Scale -) 1 vial SQ Q6H [facility] PRN Reason: Protocol Last Admin: 10/08/17 13:56 Dose: 6 units Insulin Detemir (Levemir Vial) 10 units SQ BID@0700,2200 [facility] Last Admin: 10/08/17 06:06 Dose: 10 units Metoprolol Tartrate (Lopressor Injection -) 5 mg IVPUSH Q4H PRN PRN Reason: HYPERTENSION Metoprolol Tartrate (Lopressor -) 50 mg NGT BID [facility] Last Admin: 10/08/17 10:55 Dose: 50 mg Nystatin (Mycostatin Ointment -) 1 applic TP BID [facility] Last Admin: 10/08/17 10:57 Dose: 1 applic Ondansetron HCl (Zofran Injection) 4 mg IVPUSH Q6H PRN PRN Reason: NAUSEA Quetiapine Fumarate (Seroquel -) 25 mg PO HS [facility] Last Admin: 10/07/17 21:32 Dose: 25 mg Ranitidine HCl (Zantac -) 150 mg PO BID [facility] Last Admin: 10/08/17 10:55 Dose: 150 mg Trazodone HCl (Desyrel -) 50 mg PO HS [facility] Last Admin: 10/07/17 21:33 Dose: 50 mg a/p s/p trach and vent low grade fevers reculture nystatin to groin rash respiratory failure-multiple episodes CVA Afib metastatic colon cancer Renal insufficiency diabetes
--- NOTE | 2017-10-08 16:01 | PN ---
Progress Note, Physician History of Present Illness: pulmonary awake,on vent support,ac mode,-resp distress - Current Medication List Current Medications: Active Medications Acetaminophen (Tylenol Oral Solution -) 650 mg PEG Q6H PRN PRN Reason: FEVER Last Admin: 10/07/17 21:39 Dose: 650 mg Apixaban (Eliquis -) 5 mg PO BID [facility] Last Admin: 10/08/17 10:54 Dose: 5 mg Artificial Tears (Artificial Tears Ointment -) 1 applic OU BID [facility] Last Admin: 10/08/17 10:56 Dose: 1 applic Atorvastatin Calcium (Lipitor -) 20 mg PO HS [facility] Last Admin: 10/07/17 21:33 Dose: 20 mg Digoxin (Lanoxin -) 0.125 mg PEG Q2D@1000 [facility] Last Admin: 10/08/17 10:54 Dose: 0.125 mg Diltiazem HCl 60 mg/ Diltiazem (HCl 30 mg) 90 mg NGT Q6HPO [facility] Last Admin: 10/08/17 13:53 Dose: 90 mg Furosemide (Lasix Injection -) 40 mg IVPUSH [employer] [facility] Stop: 10/08/17 16:00 Hydralazine HCl (Apresoline Injection -) 10 mg IVPUSH Q6H PRN PRN Reason: HYPERTENSION Insulin Aspart (Novolog Vial Sliding Scale -) 1 vial SQ Q6H [facility] PRN Reason: Protocol Last Admin: 10/08/17 13:56 Dose: 6 units Insulin Detemir (Levemir Vial) 10 units SQ BID@0700,2200 [facility] Last Admin: 10/08/17 06:06 Dose: 10 units Metoprolol Tartrate (Lopressor Injection -) 5 mg IVPUSH Q4H PRN PRN Reason: HYPERTENSION Metoprolol Tartrate (Lopressor -) 50 mg NGT BID [facility] Last Admin: 10/08/17 10:55 Dose: 50 mg Nystatin (Mycostatin Ointment -) 1 applic TP BID [facility] Last Admin: 10/08/17 10:57 Dose: 1 applic Ondansetron HCl (Zofran Injection) 4 mg IVPUSH Q6H PRN PRN Reason: NAUSEA Quetiapine Fumarate (Seroquel -) 25 mg PO [facility] Last Admin: 10/07/17 21:32 Dose: 25 mg Ranitidine HCl (Zantac -) 150 mg PO BID [facility] Last Admin: 10/08/17 10:55 Dose: 150 mg Trazodone HCl (Desyrel -) 50 mg PO HS [facility] Last Admin: 10/07/17 21:33 Dose: 50 mg - Objective Vital Signs: Vital Signs Temperature 99.7 F H 10/08/17 14:25 Pulse Rate 66 10/08/17 14:25 Respiratory Rate 12 10/08/17 14:25 Blood Pressure 153/73 10/08/17 14:25 O2 Sat by Pulse Oximetry (%) 97 10/07/17 11:38 Constitutional: Yes: Well Nourished, Calm Eyes: Yes: WNL HENT: Yes: WNL Neck: Yes: Supple (trach) Cardiovascular: Yes: Pulse Irregular, S1, S2 Respiratory: Yes: Diminished Gastrointestinal: Yes: Normal Bowel Sounds, Soft Extremities: Yes: WNL Edema: No Labs: CBC, BMP 10/08/17 06:05 10/08/17 06:05 INR, PTT INR 0.98 (0.82-1.09) 10/02/17 05:30 Problem List - Problems (1) Anemia Code(s): D64.9 - ANEMIA, UNSPECIFIED (2) Brain metastasis Code(s): C79.31 - SECONDARY MALIGNANT NEOPLASM OF BRAIN (3) CVA (cerebral vascular accident) Code(s): I63.9 - CEREBRAL INFARCTION, UNSPECIFIED (4) Metastatic colorectal cancer Code(s): C78.5 - SECONDARY MALIGNANT NEOPLASM OF LARGE INTESTINE AND RECTUM (5) Respiratory failure Code(s): J96.90 - RESPIRATORY FAILURE, UNSP, UNSP W HYPOXIA OR HYPERCAPNIA (6) Atrial fibrillation Code(s): I48.91 - UNSPECIFIED ATRIAL FIBRILLATION (7) HTN (hypertension) Code(s): I10 - ESSENTIAL (PRIMARY) HYPERTENSION (8) Lung mass Code(s): R91.8 - OTHER NONSPECIFIC ABNORMAL FINDING OF LUNG FIELD Assessment/Plan ASSESSMENT AND PLAN: Multiple Acute Embolic CVA Acute Hypoxic Respiratory Failure s/p Tracheostomy Aspiration Pneumonia Atrial Fibrillation with RVR Metastatic Colon Ca to Lung Acute on Chronic Renal Failure HTN DM Hypercholesterolemia - continue anticoagulation - monitor urine output, creatinine - enteral feeds - spontaneous breathing trials as tolerated - DVT/GI prophylaxis DR LEONE
[2017-10-08] MEDS ORDERED: INSULIN (NOVOLOG) ASPART 100 UNITS/ML 10ML VIAL ONE ×2 (18:16→20:19)
[2017-10-08] MEDS: ACETAMINOPHEN 650 MG/20.3 ML ORAL SOLUTION (CUPS) PEG PRN (19:53)
[2017-10-08] MEDS ORDERED: FUROSEMIDE 40 MG/4 ML INJECTABLE VIAL ONE (22:09)
[2017-10-08] MEDS: traZODone HCL 50 MG TABLET (FP) PO SCH (22:13)
[2017-10-08] MEDS: ATORVASTATIN CA 20 MG TABLET (FP) PO SCH (22:16)
[2017-10-08] MEDS: QUEtiapine FUMARATE 25 MG TABLET (FP) PO SCH (22:19)
[2017-10-09] MEDS: ACETAMINOPHEN 650 MG/20.3 ML ORAL SOLUTION (CUPS) PEG PRN (03:54)
[2017-10-09 05:54] LABS: ALBUMIN 1.4 g/dl (3.4-5.0); ALK PHOS 91 U/L (45-117); ANION GAP 7 (8-16); BILIRUBIN,TOTAL 0.3 mg/dL (0.2-1.0); BLOOD UREA NITROGEN 35 mg/dL (7-18); CALCIUM 7.3 mg/dL (8.5-10.1); CHLORIDE 105 mmol/L (98-107); CO2 28 mmol/L (21-32); CREATININE 1.4 mg/dL (0.55-1.02); GLUCOSE,RANDOM 255 mg/dL (74-106); SGOT/AST 19 U/L (15-37); SGPT/ALT 23 U/L (12-78); SODIUM 140 mmol/L (136-145); TOT PROT 5.2 g/dl (6.4-8.2)
[2017-10-09 06:00] LABS: BASO % 0.7 % (0-2.0); EOS % 1.1 % (0-4.5); HEMATOCRIT 32.2 % (32.4-45.2); HEMOGLOBIN 10.8 GM/dL (10.7-15.3); LYMPH % 10.7 % (8-40); MCH 28.8 pg (25.7-33.7); MCHC 33.6 g/dl (32.0-36.0); MEAN CELL VOLUME 85.7 fl (80-96); MEAN PLT VOLUME 8.7 fl (7.5-11.1); MONO % 7.3 % (3.8-10.2); NEUT % 80.2 % (42.8-82.8); PLATELET COUNT 403 K/MM3 (134-434); RBC 3.75 M/mm3 (3.60-5.2); RDW 16.6 % (11.6-15.6); WHITE BLOOD COUNT 7.5 K/mm3 (4.0-10.0)
[2017-10-09 06:03] LABS: URINE APPEARANCE CLOUDY; URINE BILIRUBIN NEGATIVE (NEGATIVE); URINE BLOOD 1+ (NEGATIVE); URINE COLOR LTYELLOW; URINE GLUCOSE (UA) 2+ (NEGATIVE); URINE KETONE NEGATIVE (NEGATIVE); URINE NITRITE NEGATIVE (NEGATIVE); URINE UROBILINOGEN NEGATIVE mg/dL (0.2-1.0)
[2017-10-09 06:19] LABS: URINE LEUK ESTERASE 3+ (NEGATIVE); URINE PROTEIN 2+ (NEGATIVE)
[2017-10-09 06:21] LABS: URINE BACTERIA FEW /hpf (NONE SEEN); YEAST MODERATE
[2017-10-09] MEDS ORDERED: dilTIAZem HCL 30 MG TABLET (FP) ONE ×2 (06:34→16:42)
[2017-10-09] MEDS ORDERED: dilTIAZem HCL 60 MG TABLET (FP) ONE ×2 (06:35→16:42)
[2017-10-09] MEDS: DILTIAZEM 60 MG, DILTIAZEM 30 MG NGT SCH ×4 (06:47→23:40)
[2017-10-09] MEDS: INSULIN SLIDING SCALE (NOVOLOG) 1 VIAL SQ SCH ×2 (06:49→17:10)
[2017-10-09] MEDS: INSULIN DETEMIR 100 UNITS/ML MDV SQ SCH ×2 (06:50→22:14)
[2017-10-09] MEDS: NYSTATIN 100000 UNIT/GM TOPICAL OINTMENT 15 GM TUBE TP SCH ×2 (10:33→22:38)
[2017-10-09] MEDS: RANITIDINE HCL 150 MG TABLET (FP) PO SCH ×2 (10:35→22:13)
[2017-10-09] MEDS: METOPROLOL TARTRATE 50 MG TABLET (FP) NGT SCH ×2 (10:35→22:13)
[2017-10-09] MEDS: APIXABAN 5 MG TABLET PO SCH ×3 (10:35→22:46)
[2017-10-09] MEDS: MINERAL OIL/PETROLATUM,WHITE 3.5 GM TUBE OU SCH ×2 (10:35→22:37)
--- NOTE | 2017-10-09 11:06 | PN ---
Progress Note, Physician History of Present Illness: Pt seen and examined at bedside. - Current Medication List Current Medications: Active Medications Acetaminophen (Tylenol Oral Solution -) 650 mg PEG Q6H PRN PRN Reason: FEVER Last Admin: 10/09/17 03:54 Dose: 650 mg Apixaban (Eliquis -) 5 mg PO BID [facility] Last Admin: 10/09/17 10:35 Dose: 5 mg Artificial Tears (Artificial Tears Ointment -) 1 applic OU BID [facility] Last Admin: 10/09/17 10:35 Dose: 1 applic Atorvastatin Calcium (Lipitor -) 20 mg PO HS [facility] Last Admin: 10/08/17 22:16 Dose: 20 mg Digoxin (Lanoxin -) 0.125 mg PEG Q2D@1000 [facility] Last Admin: 10/08/17 10:54 Dose: 0.125 mg Diltiazem HCl 60 mg/ Diltiazem (HCl 30 mg) 90 mg NGT Q6HPO [facility] Last Admin: 10/09/17 06:47 Dose: 90 mg Hydralazine HCl (Apresoline Injection -) 10 mg IVPUSH Q6H PRN PRN Reason: HYPERTENSION Insulin Aspart (Novolog Vial Sliding Scale -) 1 vial SQ Q6H [facility] PRN Reason: Protocol Last Admin: 10/09/17 06:49 Dose: 6 units Insulin Detemir (Levemir Vial) 10 units SQ BID@0700,2200 [facility] Last Admin: 10/09/17 06:50 Dose: 10 units Metoprolol Tartrate (Lopressor Injection -) 5 mg IVPUSH Q4H PRN PRN Reason: HYPERTENSION Metoprolol Tartrate (Lopressor -) 50 mg NGT BID [facility] Last Admin: 10/09/17 10:35 Dose: 50 mg Nystatin (Mycostatin Ointment -) 1 applic TP BID [facility] Last Admin: 10/09/17 10:33 Dose: 1 applic Ondansetron HCl (Zofran Injection) 4 mg IVPUSH Q6H PRN PRN Reason: NAUSEA Quetiapine Fumarate (Seroquel -) 25 mg PO HS [facility] Last Admin: 10/08/17 22:19 Dose: 25 mg Ranitidine HCl (Zantac -) 150 mg PO BID [facility] Last Admin: 10/09/17 10:35 Dose: 150 mg Trazodone HCl (Desyrel -) 50 mg PO HS [facility] Last Admin: 10/08/17 22:13 Dose: 50 mg - Objective Vital Signs: Vital Signs Temperature 100.4 F H 10/09/17 06:00 Pulse Rate 77 10/09/17 08:08 Respiratory Rate 17 10/09/17 08:08 Blood Pressure 144/65 10/09/17 06:00 O2 Sat by Pulse Oximetry (%) 94 L 10/09/17 08:08 Constitutional: Yes: Calm Eyes: Yes: Conjunctiva Clear HENT: Yes: Atraumatic Neck: Yes: Other (trache) Cardiovascular: Yes: S1, S2 Respiratory: Yes: Mechanically Ventilated Gastrointestinal: Yes: Other (peg) Musculoskeletal: Yes: Muscle Weakness Edema: No Neurological: Yes: Lethargy Labs: CBC, BMP 10/09/17 04:30 10/09/17 04:30 INR, PTT INR 0.98 (0.82-1.09) 10/02/17 05:30 Problem List - Problems (1) Brain metastasis Code(s): C79.31 - SECONDARY MALIGNANT NEOPLASM OF BRAIN (2) Headache Code(s): R51 - HEADACHE Qualifiers: Headache chronicity pattern: unspecified pattern Intractability: intractable (3) Metastatic colorectal cancer Code(s): C78.5 - SECONDARY MALIGNANT NEOPLASM OF LARGE INTESTINE AND RECTUM (4) SUSAN (acute kidney injury) Code(s): N17.9 - ACUTE KIDNEY FAILURE, UNSPECIFIED (5) Atrial fibrillation Code(s): I48.91 - UNSPECIFIED ATRIAL FIBRILLATION (6) Cancer, colon Code(s): C18.9 - MALIGNANT NEOPLASM OF COLON, UNSPECIFIED Qualifiers: Colon location: unspecified part of colon Qualified Code(s): C18.9 - Malignant neoplasm of colon, unspecified (7) Lung mass Code(s): R91.8 - OTHER NONSPECIFIC ABNORMAL FINDING OF LUNG FIELD Assessment/Plan Current Medications Generic Name Dose Route Start Last Admin Trade Name Freq PRN Reason Stop Dose Admin Acetaminophen 650 mg 10/06/17 20:09 10/09/17 03:54 Tylenol Oral Solution - PEG 650 mg Q6H PRN Administration FEVER Apixaban 5 mg 10/06/17 22:00 10/09/17 10:35 Eliquis - PO 5 mg BID [facility] Administration Artificial Tears 1 applic 10/06/17 22:00 10/09/17 10:35 Artificial Tears Ointment - OU 1 applic BID [facility] Administration Atorvastatin Calcium 20 mg 10/06/17 22:00 10/08/17 22:16 Lipitor - PO 20 mg HS [facility] Administration Digoxin 0.125 mg 10/08/17 10:00 10/08/17 10:54 Lanoxin - PEG 0.125 mg Q2D@1000 [facility] Administration Diltiazem HCl 60 mg/ Diltiazem 90 mg 10/07/17 00:00 10/09/17 06:47 HCl 30 mg NGT 90 mg Q6HPO [facility] Administration Hydralazine HCl 10 mg 10/06/17 20:09 Apresoline Injection - IVPUSH Q6H PRN HYPERTENSION Insulin Aspart 1 vial 10/07/17 00:00 10/09/17 06:49 Novolog Vial Sliding Scale - SQ 6 units Q6H [facility] Administration Protocol Insulin Detemir 10 units 10/06/17 22:00 10/09/17 06:50 Levemir Vial SQ 10 units BID@0700,2200 [facility] Administration Metoprolol Tartrate 5 mg 10/06/17 20:09 Lopressor Injection - IVPUSH Q4H PRN HYPERTENSION Metoprolol Tartrate 50 mg 10/07/17 10:00 10/09/17 10:35 Lopressor - NGT 50 mg BID [facility] Administration Nystatin 1 applic 10/06/17 22:00 10/09/17 10:33 Mycostatin Ointment - TP 1 applic BID [facility] Administration Ondansetron HCl 4 mg 10/06/17 20:09 Zofran Injection IVPUSH Q6H PRN NAUSEA Quetiapine Fumarate 25 mg 10/06/17 22:00 10/08/17 22:19 Seroquel - PO 25 mg HS [facility] Administration Ranitidine HCl 150 mg 10/06/17 22:00 10/09/17 10:35 Zantac - PO 150 mg BID [facility] Administration Trazodone HCl 50 mg 10/06/17 22:00 10/08/17 22:13 Desyrel - PO 50 mg HS [facility] Administration Impression 1. CKD 2. SUSAN 3. DM 4. htn 5. chol 6. chemo port malfunction 7. a-fib 8. lung mass 9. proteinuria 10. adenocarcinoma 11. CVA 12. acute resp failure 13. hyperkalemia 14. hypernatremia 15. pleural effusions Plan - change feeds to nepro as potassium is rising - hg improved - monitor cbc - vent support - cont to monitor mental status - will follow PRN Dr Llanos
--- NOTE | 2017-10-09 11:24 | PN ---
Progress Note (short form) - Note Progress Note: Awake and interactive on AC Mode of vent. NAD. Noted low grade temps and was seen by ID yesterday. CXR: No acute process is noted Intake & Output 10/06/17 10/07/17 10/08/17 10/09/17 23:59 23:59 23:59 23:59 Intake Total 1930 1610 1690 1640 Output Total 1200 75 Balance 730 1610 1690 1565 Weight 189 lb 3.2 oz 188 lb 5 oz Last Vital Signs Temp Pulse Resp BP Pulse Ox 100.4 F H 77 17 144/65 94 L 10/09/17 06:00 10/09/17 08:08 10/09/17 08:08 10/09/17 06:00 10/09/17 08:08 Active Medications Acetaminophen (Tylenol Oral Solution -) 650 mg PEG Q6H PRN PRN Reason: FEVER Last Admin: 10/09/17 03:54 Dose: 650 mg Apixaban (Eliquis -) 5 mg PO BID [facility] Last Admin: 10/09/17 10:35 Dose: 5 mg Artificial Tears (Artificial Tears Ointment -) 1 applic OU BID [facility] Last Admin: 10/09/17 10:35 Dose: 1 applic Atorvastatin Calcium (Lipitor -) 20 mg PO HS [facility] Last Admin: 10/08/17 22:16 Dose: 20 mg Digoxin (Lanoxin -) 0.125 mg PEG Q2D@1000 [facility] Last Admin: 10/08/17 10:54 Dose: 0.125 mg Diltiazem HCl 60 mg/ Diltiazem (HCl 30 mg) 90 mg NGT Q6HPO [facility] Last Admin: 10/09/17 06:47 Dose: 90 mg Hydralazine HCl (Apresoline Injection -) 10 mg IVPUSH Q6H PRN PRN Reason: HYPERTENSION Insulin Aspart (Novolog Vial Sliding Scale -) 1 vial SQ Q6H [facility] PRN Reason: Protocol Last Admin: 10/09/17 06:49 Dose: 6 units Insulin Detemir (Levemir Vial) 10 units SQ BID@0700,2200 [facility] Last Admin: 10/09/17 06:50 Dose: 10 units Metoprolol Tartrate (Lopressor Injection -) 5 mg IVPUSH Q4H PRN PRN Reason: HYPERTENSION Metoprolol Tartrate (Lopressor -) 50 mg NGT BID [facility] Last Admin: 10/09/17 10:35 Dose: 50 mg Nystatin (Mycostatin Ointment -) 1 applic TP BID [facility] Last Admin: 10/09/17 10:33 Dose: 1 applic Ondansetron HCl (Zofran Injection) 4 mg IVPUSH Q6H PRN PRN Reason: NAUSEA Quetiapine Fumarate (Seroquel -) 25 mg PO [facility] Last Admin: 10/08/17 22:19 Dose: 25 mg Ranitidine HCl (Zantac -) 150 mg PO BID [facility] Last Admin: 10/09/17 10:35 Dose: 150 mg Trazodone HCl (Desyrel -) 50 mg PO [facility] Last Admin: 10/08/17 22:13 Dose: 50 mg Gen: Trached and vented, awake and interactive Neck: Localized erythema around Trach site Heart: RRR Lung: few scattered rhonchi Abd: soft, nontender Ext: + edema Laboratory Results - last 24 hr 10/07/17 10/08/17 10/08/17 18:26 06:05 10:10 WBC RBC Hgb Hct MCV MCH MCHC RDW Plt Count MPV Neutrophils % Neutrophils % (Manual) 71.6 D Band Neutrophils % 0.0 Lymphocytes % Lymphocytes % (Manual) 15.8 D Monocytes % Monocytes % (Manual) 4 Eosinophils % Eosinophils % (Manual) 3.1 Basophils % Basophils % (Manual) 0.0 Myelocytes % (Man) 2 D Promyelocytes % (Man) 0 Nucleated RBC % 1 H Metamyelocytes 3 H D Platelet Estimate Normal Polychromasia 1+ Microcytosis 1+ Sodium Potassium Chloride Carbon Dioxide Anion Gap BUN Creatinine Creat Clearance w eGFR POC Glucometer [phone] Random Glucose Calcium Total Bilirubin AST ALT Alkaline Phosphatase Total Protein Albumin Urine Color Urine Appearance Urine pH Ur Specific [place] Urine Protein Urine Glucose (UA) Urine Ketones Urine Blood Urine Nitrite Urine Bilirubin Urine Urobilinogen Ur Leukocyte Esterase Urine WBC (Auto) Urine RBC (Auto) Urine Bacteria Urine Yeast Blood Type O POSITIVE Antibody Screen Negative Crossmatch See Detail 10/08/17 10/08/17 10/08/17 13:52 17:56 22:53 WBC RBC Hgb Hct MCV MCH MCHC RDW Plt Count MPV Neutrophils % Neutrophils % (Manual) Band Neutrophils % Lymphocytes % Lymphocytes % (Manual) Monocytes % Monocytes % (Manual) Eosinophils % Eosinophils % (Manual) Basophils % Basophils % (Manual) Myelocytes % (Man) Promyelocytes % (Man) Nucleated RBC % Metamyelocytes Platelet Estimate Polychromasia Microcytosis Sodium Potassium Chloride Carbon Dioxide Anion Gap BUN Creatinine Creat Clearance w eGFR POC Glucometer 259 230 266 Random Glucose Calcium Total Bilirubin AST ALT Alkaline Phosphatase Total Protein Albumin Urine Color Urine Appearance Urine pH Ur Specific [place] Urine Protein Urine Glucose (UA) Urine Ketones Urine Blood Urine Nitrite Urine Bilirubin Urine Urobilinogen Ur Leukocyte Esterase Urine WBC (Auto) Urine RBC (Auto) Urine Bacteria Urine Yeast Blood Type Antibody Screen Crossmatch 10/09/17 10/09/17 10/09/17 04:30 04:30 04:30 WBC 7.5 RBC 3.75 D Hgb 10.8 D Hct 32.2 L D MCV 85.7 MCH 28.8 MCHC 33.6 RDW 16.6 H Plt Count 403 D MPV 8.7 Neutrophils % 80.2 Neutrophils % (Manual) Band Neutrophils % Lymphocytes % 10.7 D Lymphocytes % (Manual) Monocytes % 7.3 Monocytes % (Manual) Eosinophils % 1.1 Eosinophils % (Manual) Basophils % 0.7 Basophils % (Manual) Myelocytes % (Man) Promyelocytes % (Man) Nucleated RBC % Metamyelocytes Platelet Estimate Polychromasia Microcytosis Sodium 140 Potassium 5.0 Chloride 105 Carbon Dioxide 28 Anion Gap 7 L BUN 35 H Creatinine 1.4 H Creat Clearance w eGFR 38.36 POC Glucometer Random Glucose 255 H Calcium 7.3 L Total Bilirubin 0.3 AST 19 ALT 23 Alkaline Phosphatase 91 Total Protein 5.2 L Albumin 1.4 L Urine Color Urine Appearance Urine pH Ur Specific [place] Urine Protein Urine Glucose (UA) Urine Ketones Urine Blood Urine Nitrite Urine Bilirubin Urine Urobilinogen Ur Leukocyte Esterase Urine WBC (Auto) Urine RBC (Auto) Urine Bacteria Urine Yeast Blood Type O POSITIVE Antibody Screen Negative Crossmatch 10/09/17 10/09/17 04:30 06:46 WBC RBC Hgb Hct MCV MCH MCHC RDW Plt Count MPV Neutrophils % Neutrophils % (Manual) Band Neutrophils % Lymphocytes % Lymphocytes % (Manual) Monocytes % Monocytes % (Manual) Eosinophils % Eosinophils % (Manual) Basophils % Basophils % (Manual) Myelocytes % (Man) Promyelocytes % (Man) Nucleated RBC % Metamyelocytes Platelet Estimate Polychromasia Microcytosis Sodium Potassium Chloride Carbon Dioxide Anion Gap BUN Creatinine Creat Clearance w eGFR POC Glucometer 267 Random Glucose Calcium Total Bilirubin AST ALT Alkaline Phosphatase Total Protein Albumin Urine Color Ltyellow Urine Appearance Cloudy Urine pH 5.0 Ur Specific [place] 1.011 Urine Protein 2+ H Urine Glucose (UA) 2+ H Urine Ketones Negative Urine Blood 1+ H Urine Nitrite Negative Urine Bilirubin Negative Urine Urobilinogen Negative Ur Leukocyte Esterase 3+ H Urine WBC (Auto) 321 Urine RBC (Auto) 26 Urine Bacteria Few Urine Yeast Moderate Blood Type Antibody Screen Crossmatch ASSESSMENT AND PLAN: Multiple Acute Embolic CVA Acute Hypoxic Respiratory Failure r/o Aspiration Pneumonia Atrial Fibrillation with RVR Metastatic Colon Ca to Lung Acute on Chronic Renal Failure Hyperkalemia HTN DM Hypercholesterolemia - Follow repeat cultures - Enteral feeds - Currently off ABX while cultures are pending - Rate control - Eliquis - DVT/GI prophylaxis - Local skin care to Trach area with Bactroban - Consider D/C PICC and insert peripheral access Dr Kaplan
--- NOTE | 2017-10-09 11:36 | PN ---
Progress Note, Physician Chief Complaint: ID Spiking fevers [address] - Current Medication List Current Medications: Active Medications Acetaminophen (Tylenol Oral Solution -) 650 mg PEG Q6H PRN PRN Reason: FEVER Last Admin: 10/09/17 03:54 Dose: 650 mg Apixaban (Eliquis -) 5 mg PO BID [facility] Last Admin: 10/09/17 10:35 Dose: 5 mg Artificial Tears (Artificial Tears Ointment -) 1 applic OU BID [facility] Last Admin: 10/09/17 10:35 Dose: 1 applic Atorvastatin Calcium (Lipitor -) 20 mg PO HS [facility] Last Admin: 10/08/17 22:16 Dose: 20 mg Digoxin (Lanoxin -) 0.125 mg PEG Q2D@1000 [facility] Last Admin: 10/08/17 10:54 Dose: 0.125 mg Diltiazem HCl 60 mg/ Diltiazem (HCl 30 mg) 90 mg NGT Q6HPO [facility] Last Admin: 10/09/17 06:47 Dose: 90 mg Hydralazine HCl (Apresoline Injection -) 10 mg IVPUSH Q6H PRN PRN Reason: HYPERTENSION Insulin Aspart (Novolog Vial Sliding Scale -) 1 vial SQ Q6H [facility] PRN Reason: Protocol Last Admin: 10/09/17 06:49 Dose: 6 units Insulin Detemir (Levemir Vial) 10 units SQ BID@0700,2200 [facility] Last Admin: 10/09/17 06:50 Dose: 10 units Metoprolol Tartrate (Lopressor Injection -) 5 mg IVPUSH Q4H PRN PRN Reason: HYPERTENSION Metoprolol Tartrate (Lopressor -) 50 mg NGT BID [facility] Last Admin: 10/09/17 10:35 Dose: 50 mg Mupirocin (Bactroban 2% Ointment -) 1 applic TP TID [facility] Nystatin (Mycostatin Ointment -) 1 applic TP BID [facility] Last Admin: 10/09/17 10:33 Dose: 1 applic Ondansetron HCl (Zofran Injection) 4 mg IVPUSH Q6H PRN PRN Reason: NAUSEA Quetiapine Fumarate (Seroquel -) 25 mg PO [facility] Last Admin: 10/08/17 22:19 Dose: 25 mg Ranitidine HCl (Zantac -) 150 mg PO BID [facility] Last Admin: 10/09/17 10:35 Dose: 150 mg Trazodone HCl (Desyrel -) 50 mg PO HS [facility] Last Admin: 10/08/17 22:13 Dose: 50 mg - Objective Vital Signs: Vital Signs Temperature 100.4 F H 10/09/17 06:00 Pulse Rate 77 10/09/17 08:08 Respiratory Rate 17 10/09/17 08:08 Blood Pressure 144/65 10/09/17 06:00 O2 Sat by Pulse Oximetry (%) 94 L 10/09/17 08:08 Constitutional: Yes: No Distress Neck: Yes: Other (Trach some inflammation around trach) Cardiovascular: Yes: Regular Rate and Rhythm, S1, S2 Respiratory: Yes: WNL, Regular, CTA Bilaterally Gastrointestinal: Yes: WNL, Normal Bowel Sounds, Soft. No: Tenderness, Epigastrium, Tenderness, Rebound Edema: No Integumentary: Yes: Rash, Other (extesnsive sheeba infection) Labs: CBC, BMP 10/09/17 04:30 10/09/17 04:30 INR, PTT INR 0.98 (0.82-1.09) 10/02/17 05:30 Problem List - Problems (1) Pneumonia Code(s): J18.9 - PNEUMONIA, UNSPECIFIED ORGANISM (2) Brain metastasis Code(s): C79.31 - SECONDARY MALIGNANT NEOPLASM OF BRAIN (3) CVA (cerebral vascular accident) Code(s): I63.9 - CEREBRAL INFARCTION, UNSPECIFIED (4) Metastatic colorectal cancer Code(s): C78.5 - SECONDARY MALIGNANT NEOPLASM OF LARGE INTESTINE AND RECTUM (5) Respiratory failure Code(s): J96.90 - RESPIRATORY FAILURE, UNSP, UNSP W HYPOXIA OR HYPERCAPNIA Assessment/Plan Microbiology 10/06/17 12:50 Sputum - Endotrachea Suction/Ventilator Sputum Culture - Final Yeast Like Organism Laboratory Tests 10/09/17 10/09/17 10/09/17 04:30 04:30 04:30 WBC 7.5 Hgb 10.8 D Hct 32.2 L D Plt Count 403 D Creat Clearance w eGFR 38.36 Ur Leukocyte Esterase 3+ H Urine WBC (Auto) 321 Urine RBC (Auto) 26 Assessment FUO 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 trach site redness Growing Sheeba in the sputum and PICC line placed previously. ? Invasive fungal disease Plan Start Diflucan 400 then 200 daily Remove PICC line TOpical antifungal cream Bactroban to trach site Discussed with Dr Eusebio Trotter MD
[2017-10-09] MEDS ORDERED: FLUCONAZOLE 400 MG/NS 200 ML IVPB ONE (11:39)
--- NOTE | 2017-10-09 11:43 | PN ---
Progress Note, Physician - Current Medication List Current Medications: Active Medications Acetaminophen (Tylenol Oral Solution -) 650 mg PEG Q6H PRN PRN Reason: FEVER Last Admin: 10/09/17 03:54 Dose: 650 mg Apixaban (Eliquis -) 5 mg PO BID [facility] Last Admin: 10/09/17 10:35 Dose: 5 mg Artificial Tears (Artificial Tears Ointment -) 1 applic OU BID [facility] Last Admin: 10/09/17 10:35 Dose: 1 applic Atorvastatin Calcium (Lipitor -) 20 mg PO HS [facility] Last Admin: 10/08/17 22:16 Dose: 20 mg Digoxin (Lanoxin -) 0.125 mg PEG Q2D@1000 [facility] Last Admin: 10/08/17 10:54 Dose: 0.125 mg Diltiazem HCl 60 mg/ Diltiazem (HCl 30 mg) 90 mg NGT Q6HPO [facility] Last Admin: 10/09/17 06:47 Dose: 90 mg Hydralazine HCl (Apresoline Injection -) 10 mg IVPUSH Q6H PRN PRN Reason: HYPERTENSION IV Flush (Picc Line Flush) 8 ml IVPUSH PRN PRN PRN Reason: Protocol Fluconazole (Diflucan 400 Mg/Ns Premixed Ivpb -) 200 mls @ 200 mls/hr IVPB ONCE ONE Stop: 10/09/17 12:38 Fluconazole (Diflucan 200 Mg/D5w Premixed Ivpb -) 100 mls @ 100 mls/hr IVPB DAILY [facility] Insulin Aspart (Novolog Vial Sliding Scale -) 1 vial SQ Q6H [facility] PRN Reason: Protocol Last Admin: 10/09/17 06:49 Dose: 6 units Insulin Detemir (Levemir Vial) 10 units SQ BID@0700,2200 [facility] Last Admin: 10/09/17 06:50 Dose: 10 units Metoprolol Tartrate (Lopressor Injection -) 5 mg IVPUSH Q4H PRN PRN Reason: HYPERTENSION Metoprolol Tartrate (Lopressor -) 50 mg NGT BID [facility] Last Admin: 10/09/17 10:35 Dose: 50 mg Mupirocin (Bactroban 2% Ointment -) 1 applic TP TID [facility] Nystatin (Mycostatin Ointment -) 1 applic TP BID [facility] Last Admin: 10/09/17 10:33 Dose: 1 applic Ondansetron HCl (Zofran Injection) 4 mg IVPUSH Q6H PRN PRN Reason: NAUSEA Quetiapine Fumarate (Seroquel -) 25 mg PO [facility] Last Admin: 10/08/17 22:19 Dose: 25 mg Ranitidine HCl (Zantac -) 150 mg PO BID [facility] Last Admin: 10/09/17 10:35 Dose: 150 mg Trazodone HCl (Desyrel -) 50 mg PO [facility] Last Admin: 10/08/17 22:13 Dose: 50 mg - Objective Vital Signs: Vital Signs Temperature 100.4 F H 10/09/17 06:00 Pulse Rate 77 10/09/17 08:08 Respiratory Rate 10 L 10/09/17 11:31 Blood Pressure 144/65 10/09/17 06:00 O2 Sat by Pulse Oximetry (%) 95 10/09/17 11:31 Labs: CBC, BMP 10/09/17 04:30 10/09/17 04:30 INR, PTT INR 0.98 (0.82-1.09) 10/02/17 05:30 Problem List - Problems (1) Pneumonia Code(s): J18.9 - PNEUMONIA, UNSPECIFIED ORGANISM (2) Brain metastasis Code(s): C79.31 - SECONDARY MALIGNANT NEOPLASM OF BRAIN (3) CVA (cerebral vascular accident) Code(s): I63.9 - CEREBRAL INFARCTION, UNSPECIFIED (4) Metastatic colorectal cancer Code(s): C78.5 - SECONDARY MALIGNANT NEOPLASM OF LARGE INTESTINE AND RECTUM (5) Respiratory failure Code(s): J96.90 - RESPIRATORY FAILURE, UNSP, UNSP W HYPOXIA OR HYPERCAPNIA
--- NOTE | 2017-10-09 14:08 | PN ---
Progress Note, Physician Chief Complaint: temp noted 100.5 start on dilfucan - Current Medication List Current Medications: Active Medications Acetaminophen (Tylenol Oral Solution -) 650 mg PEG Q6H PRN PRN Reason: FEVER Last Admin: 10/09/17 03:54 Dose: 650 mg Apixaban (Eliquis -) 5 mg PO BID [facility] Last Admin: 10/09/17 10:35 Dose: 5 mg Artificial Tears (Artificial Tears Ointment -) 1 applic OU BID [facility] Last Admin: 10/09/17 10:35 Dose: 1 applic Atorvastatin Calcium (Lipitor -) 20 mg PO HS [facility] Last Admin: 10/08/17 22:16 Dose: 20 mg Digoxin (Lanoxin -) 0.125 mg PEG Q2D@1000 [facility] Last Admin: 10/08/17 10:54 Dose: 0.125 mg Diltiazem HCl 60 mg/ Diltiazem (HCl 30 mg) 90 mg NGT Q6HPO [facility] Last Admin: 10/09/17 06:47 Dose: 90 mg Hydralazine HCl (Apresoline Injection -) 10 mg IVPUSH Q6H PRN PRN Reason: HYPERTENSION IV Flush (Picc Line Flush) 8 ml IVPUSH PRN PRN PRN Reason: Protocol Fluconazole (Diflucan 200 Mg/D5w Premixed Ivpb -) 100 mls @ 100 mls/hr IVPB DAILY [facility] Insulin Aspart (Novolog Vial Sliding Scale -) 1 vial SQ Q6H [facility] PRN Reason: Protocol Last Admin: 10/09/17 06:49 Dose: 6 units Insulin Detemir (Levemir Vial) 10 units SQ BID@0700,2200 [facility] Last Admin: 10/09/17 06:50 Dose: 10 units Metoprolol Tartrate (Lopressor Injection -) 5 mg IVPUSH Q4H PRN PRN Reason: HYPERTENSION Metoprolol Tartrate (Lopressor -) 50 mg NGT BID [facility] Last Admin: 10/09/17 10:35 Dose: 50 mg Mupirocin (Bactroban 2% Ointment -) 1 applic TP TID [facility] Nystatin (Mycostatin Ointment -) 1 applic TP BID [facility] Last Admin: 10/09/17 10:33 Dose: 1 applic Ondansetron HCl (Zofran Injection) 4 mg IVPUSH Q6H PRN PRN Reason: NAUSEA Quetiapine Fumarate (Seroquel -) 25 mg PO [facility] Last Admin: 10/08/17 22:19 Dose: 25 mg Ranitidine HCl (Zantac -) 150 mg PO BID [facility] Last Admin: 10/09/17 10:35 Dose: 150 mg Trazodone HCl (Desyrel -) 50 mg PO [facility] Last Admin: 10/08/17 22:13 Dose: 50 mg - Objective Vital Signs: Vital Signs Temperature 100.5 F H 10/09/17 11:54 Pulse Rate 76 10/09/17 11:54 Respiratory Rate 12 10/09/17 11:55 Blood Pressure 127/68 10/09/17 11:54 O2 Sat by Pulse Oximetry (%) 95 10/09/17 11:31 Constitutional: Yes: Calm Neck: Yes: Other (trach) Cardiovascular: Yes: Regular Rate and Rhythm, S1, S2 Respiratory: Yes: Mechanically Ventilated Gastrointestinal: Yes: Normal Bowel Sounds, Soft, Other (peg) Genitourinary: Yes: Mcdonald Present Labs: CBC, BMP 10/09/17 04:30 10/09/17 04:30 INR, PTT INR 0.98 (0.82-1.09) 10/02/17 05:30 Problem List - Problems (1) Respiratory failure Assessment/Plan: s/p tracheostomy vent support Code(s): J96.90 - RESPIRATORY FAILURE, UNSP, UNSP W HYPOXIA OR HYPERCAPNIA (2) Pneumonia Assessment/Plan: iv zosyn s/p 8 day course abx stopped Code(s): J18.9 - PNEUMONIA, UNSPECIFIED ORGANISM (3) Atrial fibrillation Assessment/Plan: digoxin,cardizem and metoprolol eliquis bid Code(s): I48.91 - UNSPECIFIED ATRIAL FIBRILLATION (4) Anemia Assessment/Plan: stool occult blood ordered for today ppi GI follow up noted Code(s): D64.9 - ANEMIA, UNSPECIFIED (5) Diabetes Assessment/Plan: insulin bgm ok for now Code(s): E11.9 - TYPE 2 DIABETES MELLITUS WITHOUT COMPLICATIONS Qualifiers: Diabetes mellitus type: type 2 (6) CVA (cerebral vascular accident) Assessment/Plan: S/p multiple acute embolic infarcts - s/p trach on vent s/p peg now needs snf placement Code(s): I63.9 - CEREBRAL INFARCTION, UNSPECIFIED Assessment/Plan for fever started on diflucan if afebrile can go to [facility]
[2017-10-09] MEDS ORDERED: PT OWN MED DRAWER 7, Y5N ONE ×2 (16:42→21:54)
[2017-10-09] MEDS: MUPIROCIN 2% TOPICAL OINTMENT 22 GM TUBE TP SCH ×2 (17:13→22:37)
[2017-10-09] MEDS: QUEtiapine FUMARATE 25 MG TABLET (FP) PO SCH (22:13)
[2017-10-09] MEDS: ATORVASTATIN CA 20 MG TABLET (FP) PO SCH (22:14)
[2017-10-09] MEDS: traZODone HCL 50 MG TABLET (FP) PO SCH (22:14)
[2017-10-09] MEDS: PICC LINE 8 ML FLUSH PROTOCOL IVPUSH PRN (22:38)
[2017-10-10] MEDS: INSULIN SLIDING SCALE (NOVOLOG) 1 VIAL SQ SCH ×4 (00:54→20:06)
[2017-10-10] MEDS ORDERED: dilTIAZem HCL 30 MG TABLET (FP) ONE ×4 (05:17→22:55)
[2017-10-10] MEDS ORDERED: dilTIAZem HCL 60 MG TABLET (FP) ONE ×4 (05:17→22:55)
[2017-10-10] MEDS: MUPIROCIN 2% TOPICAL OINTMENT 22 GM TUBE TP SCH ×3 (05:40→22:09)
[2017-10-10] MEDS: DILTIAZEM 60 MG, DILTIAZEM 30 MG NGT SCH ×4 (05:40→23:50)
[2017-10-10] MEDS: INSULIN DETEMIR 100 UNITS/ML MDV SQ SCH ×2 (06:04→22:10)
[2017-10-10] MEDS ORDERED: INSULIN (NOVOLOG) ASPART 100 UNITS/ML 10ML VIAL ONE ×3 (06:28→22:54)
[2017-10-10] MEDS: ACETAMINOPHEN 650 MG/20.3 ML ORAL SOLUTION (CUPS) PEG PRN ×2 (06:30→17:48)
--- NOTE | 2017-10-10 10:03 | PN ---
Progress Note, Physician Chief Complaint: low grade temp noted on diflucan awaiting for bed placement at [facility] - Current Medication List Current Medications: Active Medications Acetaminophen (Tylenol Oral Solution -) 650 mg PEG Q6H PRN PRN Reason: FEVER Last Admin: 10/10/17 06:30 Dose: 650 mg Apixaban (Eliquis -) 5 mg PO BID [facility] Last Admin: 10/09/17 22:46 Dose: 5 mg Artificial Tears (Artificial Tears Ointment -) 1 applic OU BID [facility] Last Admin: 10/09/17 22:37 Dose: Not Given Atorvastatin Calcium (Lipitor -) 20 mg PO HS [facility] Last Admin: 10/09/17 22:14 Dose: 20 mg Digoxin (Lanoxin -) 0.125 mg PEG Q2D@1000 [facility] Last Admin: 10/08/17 10:54 Dose: 0.125 mg Diltiazem HCl 60 mg/ Diltiazem (HCl 30 mg) 90 mg NGT Q6HPO [facility] Last Admin: 10/10/17 05:40 Dose: 90 mg Hydralazine HCl (Apresoline Injection -) 10 mg IVPUSH Q6H PRN PRN Reason: HYPERTENSION IV Flush (Picc Line Flush) 8 ml IVPUSH PRN PRN PRN Reason: Protocol Last Admin: 10/09/17 22:38 Dose: 8 ml Fluconazole (Diflucan 200 Mg/D5w Premixed Ivpb -) 100 mls @ 100 mls/hr IVPB DAILY [facility] Insulin Aspart (Novolog Vial Sliding Scale -) 1 vial SQ Q6H [facility] PRN Reason: Protocol Last Admin: 10/10/17 05:40 Dose: 4 units Insulin Detemir (Levemir Vial) 10 units SQ BID@0700,2200 [facility] Last Admin: 10/10/17 06:04 Dose: 10 units Metoprolol Tartrate (Lopressor Injection -) 5 mg IVPUSH Q4H PRN PRN Reason: HYPERTENSION Metoprolol Tartrate (Lopressor -) 50 mg NGT BID [facility] Last Admin: 10/09/17 22:13 Dose: 50 mg Mupirocin (Bactroban 2% Ointment -) 1 applic TP TID [facility] Last Admin: 10/10/17 05:40 Dose: 1 applic Nystatin (Mycostatin Ointment -) 1 applic TP BID [facility] Last Admin: 10/09/17 22:38 Dose: 1 applic Ondansetron HCl (Zofran Injection) 4 mg IVPUSH Q6H PRN PRN Reason: NAUSEA Quetiapine Fumarate (Seroquel -) [address] [facility] Last Admin: 10/09/17 22:13 Dose: 25 mg Ranitidine HCl (Zantac -) 150 mg PO BID [facility] Last Admin: 10/09/17 22:13 Dose: 150 mg Trazodone HCl (Desyrel -) [address] [facility] Last Admin: 10/09/17 22:14 Dose: 50 mg - Objective Vital Signs: Vital Signs Temperature 100.1 F H 10/10/17 06:00 Pulse Rate 77 10/10/17 08:22 Respiratory Rate 14 10/10/17 08:22 Blood Pressure 158/86 10/10/17 06:00 O2 Sat by Pulse Oximetry (%) 96 10/10/17 08:22 Constitutional: Yes: Calm HENT: Yes: Other (trach) Cardiovascular: Yes: S1, S2 Respiratory: Yes: Mechanically Ventilated Gastrointestinal: Yes: Normal Bowel Sounds, Soft, Other (peg) Edema: Yes Labs: CBC, BMP 10/09/17 04:30 10/09/17 04:30 INR, PTT INR 0.98 (0.82-1.09) 10/02/17 05:30 Problem List - Problems (1) Sheeba infection Assessment/Plan: diflucan 200mg daily topical antifungal cream to groin Code(s): B37.9 - CANDIDIASIS, UNSPECIFIED (2) Respiratory failure Assessment/Plan: s/p tracheostomy vent support bactroban to [facility] site Code(s): J96.90 - RESPIRATORY FAILURE, UNSP, UNSP W HYPOXIA OR HYPERCAPNIA (3) Pneumonia Assessment/Plan: iv zosyn s/p 8 day course abx stopped Code(s): J18.9 - PNEUMONIA, UNSPECIFIED ORGANISM (4) Atrial fibrillation Assessment/Plan: digoxin,cardizem and metoprolol eliquis bid Code(s): I48.91 - UNSPECIFIED ATRIAL FIBRILLATION (5) Anemia Assessment/Plan: stool occult blood ordered for today ppi GI follow up noted Code(s): D64.9 - ANEMIA, UNSPECIFIED (6) Diabetes Assessment/Plan: insulin bgm ok for now Code(s): E11.9 - TYPE 2 DIABETES MELLITUS WITHOUT COMPLICATIONS Qualifiers: Diabetes mellitus type: type 2 (7) CVA (cerebral vascular accident) Assessment/Plan: S/p multiple acute embolic infarcts - s/p trach on vent s/p peg now needs snf placement Code(s): I63.9 - CEREBRAL INFARCTION, UNSPECIFIED
[2017-10-10] MEDS: FLUCONAZOLE 200 MG/D5W 100 ML IVPB SCH (10:58)
[2017-10-10] MEDS: APIXABAN 5 MG TABLET PO SCH ×2 (10:59→22:10)
[2017-10-10] MEDS: DIGOXIN 0.125 MG TABLET (FP) PEG SCH (11:00)
[2017-10-10] MEDS: RANITIDINE HCL 150 MG TABLET (FP) PO SCH ×2 (11:00→22:12)
[2017-10-10] MEDS: METOPROLOL TARTRATE 50 MG TABLET (FP) NGT SCH ×2 (11:00→22:11)
[2017-10-10] MEDS: NYSTATIN 100000 UNIT/GM TOPICAL OINTMENT 15 GM TUBE TP SCH ×2 (11:01→22:11)
[2017-10-10] MEDS: MINERAL OIL/PETROLATUM,WHITE 3.5 GM TUBE OU SCH ×2 (11:02→22:09)
--- NOTE | 2017-10-10 11:30 | PN ---
Progress Note, [employer] - Note Progress Note: Medical events noted. On ventilator,tracheostomy,PEG. Pt awake, weak, responding to questions, mouthing words. Selected Entries 10/08/17 10/08/17 10/08/17 02:00 06:00 10:00 Temperature 98.6 F 98.9 F 100.0 F H 10/08/17 10/08/17 10/08/17 12:30 14:25 16:00 Temperature 100.8 F H 99.7 F H 98.9 F 10/08/17 10/08/17 10/08/17 18:00 19:45 21:55 Temperature 98.9 F 100.1 F H 99.3 F 10/08/17 10/09/17 10/09/17 23:45 03:00 03:45 Temperature 99.5 F 100.3 F H 102 F H 10/09/17 10/09/17 10/09/17 06:00 11:54 14:19 Temperature 100.4 F H 100.5 F H 99.2 F 10/09/17 10/09/17 10/10/17 18:00 23:02 01:00 Temperature 98.9 F 100.1 F H 99.9 F H 10/10/17 06:00 Temperature 100.1 F H Laboratory Tests 10/08/17 10/09/17 06:05 04:30 WBC 6.5 7.5 Suggest: Passy Alcides Valve evaluation next week, if stronger and medically stable.
--- NOTE | 2017-10-10 13:16 | PN ---
Progress Note, Physician History of Present Illness: pulmonary alert,on vent support imv mode,-resp distress,febrile - Current Medication List Current Medications: Active Medications Acetaminophen (Tylenol Oral Solution -) 650 mg PEG Q6H PRN PRN Reason: FEVER Last Admin: 10/10/17 06:30 Dose: 650 mg Apixaban (Eliquis -) 5 mg PO BID [facility] Last Admin: 10/10/17 10:59 Dose: 5 mg Artificial Tears (Artificial Tears Ointment -) 1 applic OU BID [facility] Last Admin: 10/10/17 11:02 Dose: 1 applic Atorvastatin Calcium (Lipitor -) 20 mg PO HS [facility] Last Admin: 10/09/17 22:14 Dose: 20 mg Digoxin (Lanoxin -) 0.125 mg PEG Q2D@1000 [facility] Last Admin: 10/10/17 11:00 Dose: 0.125 mg Diltiazem HCl 60 mg/ Diltiazem (HCl 30 mg) 90 mg NGT Q6HPO [facility] Last Admin: 10/10/17 05:40 Dose: 90 mg Hydralazine HCl (Apresoline Injection -) 10 mg IVPUSH Q6H PRN PRN Reason: HYPERTENSION IV Flush (Picc Line Flush) 8 ml IVPUSH PRN PRN PRN Reason: Protocol Last Admin: 10/09/17 22:38 Dose: 8 ml Fluconazole (Diflucan 200 Mg/D5w Premixed Ivpb -) 100 mls @ 100 mls/hr IVPB DAILY [facility] Last Admin: 10/10/17 10:58 Dose: 100 mls/hr Insulin Aspart (Novolog Vial Sliding Scale -) 1 vial SQ Q6H [facility] PRN Reason: Protocol Last Admin: 10/10/17 05:40 Dose: 4 units Insulin Detemir (Levemir Vial) 10 units SQ BID@0700,2200 [facility] Last Admin: 10/10/17 06:04 Dose: 10 units Metoprolol Tartrate (Lopressor Injection -) 5 mg IVPUSH Q4H PRN PRN Reason: HYPERTENSION Metoprolol Tartrate (Lopressor -) 50 mg NGT BID [facility] Last Admin: 10/10/17 11:00 Dose: 50 mg Mupirocin (Bactroban 2% Ointment -) 1 applic TP TID [facility] Last Admin: 10/10/17 05:40 Dose: 1 applic Nystatin (Mycostatin Ointment -) 1 applic TP BID [facility] Last Admin: 10/10/17 11:01 Dose: 1 applic Ondansetron HCl (Zofran Injection) 4 mg IVPUSH Q6H PRN PRN Reason: NAUSEA Quetiapine Fumarate (Seroquel -) 25 mg PO [facility] Last Admin: 10/09/17 22:13 Dose: 25 mg Ranitidine HCl (Zantac -) 150 mg PO BID [facility] Last Admin: 10/10/17 11:00 Dose: 150 mg Trazodone HCl (Desyrel -) 50 mg PO [facility] Last Admin: 10/09/17 22:14 Dose: 50 mg - Objective Vital Signs: Vital Signs Temperature 100.1 F H 10/10/17 06:00 Pulse Rate 74 10/10/17 12:09 Respiratory Rate 23 10/10/17 12:10 Blood Pressure 158/86 10/10/17 06:00 O2 Sat by Pulse Oximetry (%) 78 L 10/10/17 12:10 Constitutional: Yes: Well Nourished, Calm Eyes: Yes: WNL HENT: Yes: WNL Neck: Yes: Supple (trach) Cardiovascular: Yes: Pulse Irregular, S1, S2 Respiratory: Yes: Rhonchi (scattered julia rhonchi) Gastrointestinal: Yes: Normal Bowel Sounds, Soft Extremities: Yes: WNL Edema: No Labs: CBC, BMP 10/09/17 04:30 10/09/17 04:30 INR, PTT INR 0.98 (0.82-1.09) 10/02/17 05:30 Problem List - Problems (1) Anemia Code(s): D64.9 - ANEMIA, UNSPECIFIED (2) Brain metastasis Code(s): C79.31 - SECONDARY MALIGNANT NEOPLASM OF BRAIN (3) CVA (cerebral vascular accident) Code(s): I63.9 - CEREBRAL INFARCTION, UNSPECIFIED (4) Metastatic colorectal cancer Code(s): C78.5 - SECONDARY MALIGNANT NEOPLASM OF LARGE INTESTINE AND RECTUM (5) Respiratory failure Code(s): J96.90 - RESPIRATORY FAILURE, UNSP, UNSP W HYPOXIA OR HYPERCAPNIA (6) Atrial fibrillation Code(s): I48.91 - UNSPECIFIED ATRIAL FIBRILLATION (7) HTN (hypertension) Code(s): I10 - ESSENTIAL (PRIMARY) HYPERTENSION (8) Lung mass Code(s): R91.8 - OTHER NONSPECIFIC ABNORMAL FINDING OF LUNG FIELD Assessment/Plan ASSESSMENT AND PLAN: Multiple Acute Embolic CVA Acute Hypoxic Respiratory Failure s/p Tracheostomy Aspiration Pneumonia Atrial Fibrillation with RVR Metastatic Colon Ca to Lung Acute on Chronic Renal Failure HTN DM Hypercholesterolemia - continue anticoagulation - monitor urine output, creatinine - enteral feeds - spontaneous breathing trials as tolerated - DVT/GI prophylaxis - cultures DR LEONE
--- NOTE | 2017-10-10 13:48 | PN ---
Progress Note (short form) - Note Progress Note: low grade fevers persist s/p trach s/p gt awake and alert new picc line placed yesterday Vital Signs Period Temp Pulse Resp BP Sys/Mcdaniel Pulse Ox Last 24 Hr 98.9 F-100.1 F 71-98 14-23 137-166/74-102 78-98 cor-rrr lungs decreased bs at bases abd soft,nt groin rash much improved ext no edema trach to vent CBC, BMP 10/09/17 04:30 10/09/17 04:30 Microbiology 10/08/17 13:27 Blood Culture - Preliminary Blood - Peripheral Venous NO GROWTH OBTAINED AFTER 48 HOURS, INCUBATION TO CONTINUE FOR 3 DAYS. 10/06/17 13:06 Blood Culture - Preliminary Blood - Peripheral Venous NO GROWTH OBTAINED AFTER 96 HOURS, INCUBATION TO CONTINUE FOR 1 DAYS. 10/06/17 12:30 Blood Culture - Preliminary Blood - Peripheral Venous NO GROWTH OBTAINED AFTER 96 HOURS, INCUBATION TO CONTINUE FOR 1 DAYS. 10/09/17 04:30 Urine Culture - Preliminary Urine - Urine - Catheterized Presumptive Ps Aeruginosa 10/09/17 04:15 Blood Culture - Preliminary Blood - Peripheral Venous NO GROWTH OBTAINED AFTER 24 HOURS, INCUBATION TO CONTINUE FOR 4 DAYS. 10/09/17 04:30 Blood Culture - Preliminary Blood - Peripheral Venous NO GROWTH OBTAINED AFTER 24 HOURS, INCUBATION TO CONTINUE FOR 4 DAYS. 10/08/17 15:00 Blood Culture - Preliminary Blood - Peripheral Venous NO GROWTH OBTAINED AFTER 24 HOURS, INCUBATION TO CONTINUE FOR 4 DAYS. 10/09/17 12:15 Influenza Types A,B Antigen (DARRIN) - Final Nasopharyngeal Swab - Final 10/07/17 12:20 Urine Culture - Preliminary Urine - Urine - Catheterized Group D Strep Or Entero Coccus Current Medications Acetaminophen (Tylenol Oral Solution -) 650 mg PEG Q6H PRN PRN Reason: FEVER Last Admin: 10/10/17 06:30 Dose: 650 mg Apixaban (Eliquis -) [address] [facility] Last Admin: 10/10/17 10:59 Dose: 5 mg Artificial Tears (Artificial Tears Ointment -) 1 applic OU BID [facility] Last Admin: 10/10/17 11:02 Dose: 1 applic Atorvastatin Calcium (Lipitor -) [address] [facility] Last Admin: 10/09/17 22:14 Dose: 20 mg Digoxin (Lanoxin -) 0.125 mg PEG Q2D@1000 [facility] Last Admin: 10/10/17 11:00 Dose: 0.125 mg Diltiazem HCl 60 mg/ Diltiazem (HCl 30 mg) [address] [facility] Last Admin: 10/10/17 05:40 Dose: 90 mg Hydralazine HCl (Apresoline Injection -) 10 mg IVPUSH Q6H PRN PRN Reason: HYPERTENSION IV Flush (Picc Line Flush) 8 ml IVPUSH PRN PRN PRN Reason: Protocol Last Admin: 10/09/17 22:38 Dose: 8 ml Fluconazole (Diflucan 200 Mg/D5w Premixed Ivpb -) 100 mls @ 100 mls/hr IVPB DAILY [facility] Last Admin: 10/10/17 10:58 Dose: 100 mls/hr Insulin Aspart (Novolog Vial Sliding Scale -) [address] [facility] PRN Reason: Protocol Last Admin: 10/10/17 05:40 Dose: 4 units Insulin Detemir (Levemir Vial) 10 units SQ BID@0700,2200 [facility] Last Admin: 10/10/17 06:04 Dose: 10 units Metoprolol Tartrate (Lopressor Injection -) 5 mg IVPUSH Q4H PRN PRN Reason: HYPERTENSION Metoprolol Tartrate (Lopressor -) [address] [facility] Last Admin: 10/10/17 11:00 Dose: 50 mg Mupirocin (Bactroban 2% Ointment -) [address] [facility] Last Admin: 10/10/17 05:40 Dose: 1 applic Nystatin (Mycostatin Ointment -) [address] [facility] Last Admin: 10/10/17 11:01 Dose: 1 applic Ondansetron HCl (Zofran Injection) 4 mg IVPUSH Q6H PRN PRN Reason: NAUSEA Quetiapine Fumarate (Seroquel -) [address] [facility] Last Admin: 10/09/17 22:13 Dose: 25 mg Ranitidine HCl (Zantac -) [address] [facility] Last Admin: 10/10/17 11:00 Dose: 150 mg Trazodone HCl (Desyrel -) 50 mg PO [facility] Last Admin: 10/09/17 22:14 Dose: 50 mg a/p s/p trach and vent low grade fevers reculture nystatin to groin rash respiratory failure-multiple episodes CVA Afib metastatic colon cancer Renal insufficiency diabetes on diflucan pseudomonas UTI- await sensitivity add fortaz lines changed yesterday
[2017-10-10] MEDS ORDERED: cefTAZidime PENTAHYDRATE 1 GM/50ML PRE-DOCKED (RESTRICTED TO ID) IVPB SCH (14:00)
[2017-10-10] MEDS: DISP SYRIN IVPUSH SCH ×2 (15:51→22:10)
[2017-10-10] MEDS: CEFTAZIDIME 1 GM IVPUSH SCH ×2 (15:51→22:10)
[2017-10-10] MEDS: PUSH IVPUSH SCH ×2 (15:51→22:10)
[2017-10-10] MEDS ORDERED: PT OWN MED DRAWER 7, Y5N ONE ×3 (21:13→22:56)
[2017-10-10] MEDS: traZODone HCL 50 MG TABLET (FP) PO SCH (22:10)
[2017-10-10] MEDS: QUEtiapine FUMARATE 25 MG TABLET (FP) PO SCH (22:11)
[2017-10-10] MEDS: ATORVASTATIN CA 20 MG TABLET (FP) PO SCH (22:11)
[2017-10-10] MEDS: PICC LINE 8 ML FLUSH PROTOCOL IVPUSH PRN (22:13)
[2017-10-11] MEDS: INSULIN SLIDING SCALE (NOVOLOG) 1 VIAL SQ SCH ×5 (00:01→23:31)
[2017-10-11] MEDS ORDERED: dilTIAZem HCL 30 MG TABLET (FP) ONE ×4 (05:13→23:28)
[2017-10-11] MEDS ORDERED: dilTIAZem HCL 60 MG TABLET (FP) ONE ×4 (05:13→23:28)
[2017-10-11] MEDS: DILTIAZEM 60 MG, DILTIAZEM 30 MG NGT SCH ×4 (06:08→23:32)
[2017-10-11] MEDS: MUPIROCIN 2% TOPICAL OINTMENT 22 GM TUBE TP SCH ×3 (06:08→21:24)
[2017-10-11] MEDS: INSULIN DETEMIR 100 UNITS/ML MDV SQ SCH ×2 (06:09→21:25)
[2017-10-11] MEDS ORDERED: PT OWN MED DRAWER 7, Y5N ONE ×3 (09:54→21:08)
[2017-10-11] MEDS: METOPROLOL TARTRATE 50 MG TABLET (FP) NGT SCH ×2 (09:55→21:26)
[2017-10-11] MEDS: RANITIDINE HCL 150 MG TABLET (FP) PO SCH ×2 (09:55→21:27)
[2017-10-11] MEDS: APIXABAN 5 MG TABLET PO SCH ×2 (09:56→21:25)
[2017-10-11] MEDS: FLUCONAZOLE 200 MG/D5W 100 ML IVPB SCH ×2 (09:57→11:22)
[2017-10-11] MEDS: MINERAL OIL/PETROLATUM,WHITE 3.5 GM TUBE OU SCH ×2 (09:58→21:24)
[2017-10-11] MEDS: NYSTATIN 100000 UNIT/GM TOPICAL OINTMENT 15 GM TUBE TP SCH ×2 (09:59→21:26)
[2017-10-11] MEDS: PUSH IVPUSH SCH ×2 (11:21→21:25)
[2017-10-11] MEDS: DISP SYRIN IVPUSH SCH ×2 (11:21→21:25)
[2017-10-11] MEDS: CEFTAZIDIME 1 GM IVPUSH SCH ×2 (11:21→21:25)
--- NOTE | 2017-10-11 12:24 | PN ---
Progress Note (short form) - Note Progress Note: PULMONARY Vented, awake. Denies shortness of breath. Last Vital Signs Temp Pulse Resp BP Pulse Ox 100.3 F H 80 14 147/71 98 10/11/17 09:52 10/11/17 09:52 10/11/17 10:50 10/11/17 09:52 10/11/17 09:53 Gen: vented, awake Heart: RRR Lung: decreased breath sounds at the bases Abd: soft, nontender Ext: + edema CBC, BMP 10/09/17 04:30 10/09/17 04:30 Active Medications Acetaminophen (Tylenol Oral Solution -) 650 mg PEG Q6H PRN PRN Reason: FEVER Last Admin: 10/10/17 17:48 Dose: 650 mg Apixaban (Eliquis -) 5 mg PO BID [facility] Last Admin: 10/11/17 09:56 Dose: 5 mg Artificial Tears (Artificial Tears Ointment -) 1 applic OU BID [facility] Last Admin: 10/11/17 09:58 Dose: 1 applic Atorvastatin Calcium (Lipitor -) 20 mg PO HS [facility] Last Admin: 10/10/17 22:11 Dose: 20 mg Digoxin (Lanoxin -) 0.125 mg PEG Q2D@1000 [facility] Last Admin: 10/10/17 11:00 Dose: 0.125 mg Diltiazem HCl 60 mg/ Diltiazem (HCl 30 mg) 90 mg NGT Q6HPO [facility] Last Admin: 10/11/17 06:08 Dose: 90 mg Hydralazine HCl (Apresoline Injection -) 10 mg IVPUSH Q6H PRN PRN Reason: HYPERTENSION IV Flush (Picc Line Flush) 8 ml IVPUSH PRN PRN PRN Reason: Protocol Last Admin: 10/10/17 22:13 Dose: 8 ml Fluconazole (Diflucan 200 Mg/D5w Premixed Ivpb -) 100 mls @ 100 mls/hr IVPB DAILY [facility] Last Admin: 10/11/17 11:22 Dose: 100 mls/hr Ceftazidime (Fortaz (Restricted To Id) -) 1 gm in 10 mls @ 120 mls/hr IVPUSH BID [facility] Last Admin: 10/11/17 11:21 Dose: 120 mls/hr Insulin Aspart (Novolog Vial Sliding Scale -) 1 vial SQ Q6H [facility] PRN Reason: Protocol Last Admin: 10/11/17 06:08 Dose: 8 units Insulin Detemir (Levemir Vial) 10 units SQ BID@0700,2200 [facility] Last Admin: 10/11/17 06:09 Dose: 10 units Metoprolol Tartrate (Lopressor Injection -) 5 mg IVPUSH Q4H PRN PRN Reason: HYPERTENSION Metoprolol Tartrate (Lopressor -) 50 mg NGT BID [facility] Last Admin: 10/11/17 09:55 Dose: 50 mg Mupirocin (Bactroban 2% Ointment -) 1 applic TP TID [facility] Last Admin: 10/11/17 06:08 Dose: 1 applic Nystatin (Mycostatin Ointment -) 1 applic TP BID [facility] Last Admin: 10/11/17 09:59 Dose: 1 applic Ondansetron HCl (Zofran Injection) 4 mg IVPUSH Q6H PRN PRN Reason: NAUSEA Quetiapine Fumarate (Seroquel -) 25 mg PO [facility] Last Admin: 10/10/17 22:11 Dose: 25 mg Ranitidine HCl (Zantac -) 150 mg PO BID [facility] Last Admin: 10/11/17 09:55 Dose: 150 mg Trazodone HCl (Desyrel -) 50 mg PO [facility] Last Admin: 10/10/17 22:10 Dose: 50 mg A/P Multiple Acute Embolic CVA Acute Hypoxic Respiratory Failure s/p Tracheostomy Aspiration Pneumonia Atrial Fibrillation with RVR Metastatic Colon Ca to Lung Acute on Chronic Renal Failure HTN DM Hypercholesterolemia - antibiotics per ID - titrate rate control - continue anticoagulation - monitor urine output, creatinine - enteral feeds - spontaneous breathing trials as tolerated - DVT/GI prophylaxis
[2017-10-11] MEDS ORDERED: INSULIN (NOVOLOG) ASPART 100 UNITS/ML 10ML VIAL ONE ×2 (12:29→21:07)
--- NOTE | 2017-10-11 14:03 | PN ---
Progress Note, Physician Chief Complaint: ASLEEP AROUSABLE ON VENT TRACHEOSTOMY - Current Medication List Current Medications: Active Medications Acetaminophen (Tylenol Oral Solution -) 650 mg PEG Q6H PRN PRN Reason: FEVER Last Admin: 10/10/17 17:48 Dose: 650 mg Apixaban (Eliquis -) 5 mg PO BID [facility] Last Admin: 10/11/17 09:56 Dose: 5 mg Artificial Tears (Artificial Tears Ointment -) 1 applic OU BID [facility] Last Admin: 10/11/17 09:58 Dose: 1 applic Atorvastatin Calcium (Lipitor -) 20 mg PO HS [facility] Last Admin: 10/10/17 22:11 Dose: 20 mg Digoxin (Lanoxin -) 0.125 mg PEG Q2D@1000 [facility] Last Admin: 10/10/17 11:00 Dose: 0.125 mg Diltiazem HCl 60 mg/ Diltiazem (HCl 30 mg) 90 mg NGT Q6HPO [facility] Last Admin: 10/11/17 12:24 Dose: 90 mg Hydralazine HCl (Apresoline Injection -) 10 mg IVPUSH Q6H PRN PRN Reason: HYPERTENSION IV Flush (Picc Line Flush) 8 ml IVPUSH PRN PRN PRN Reason: Protocol Last Admin: 10/10/17 22:13 Dose: 8 ml Fluconazole (Diflucan 200 Mg/D5w Premixed Ivpb -) 100 mls @ 100 mls/hr IVPB DAILY [facility] Last Admin: 10/11/17 11:22 Dose: 100 mls/hr Ceftazidime (Fortaz (Restricted To Id) -) 1 gm in 10 mls @ 120 mls/hr IVPUSH BID [facility] Last Admin: 10/11/17 11:21 Dose: 120 mls/hr Insulin Aspart (Novolog Vial Sliding Scale -) 1 vial SQ Q6H [facility] PRN Reason: Protocol Last Admin: 10/11/17 12:30 Dose: 8 units Insulin Detemir (Levemir Vial) 10 units SQ BID@0700,2200 [facility] Last Admin: 10/11/17 06:09 Dose: 10 units Metoprolol Tartrate (Lopressor Injection -) 5 mg IVPUSH Q4H PRN PRN Reason: HYPERTENSION Metoprolol Tartrate (Lopressor -) 50 mg NGT BID [facility] Last Admin: 10/11/17 09:55 Dose: 50 mg Mupirocin (Bactroban 2% Ointment -) 1 applic TP TID [facility] Last Admin: 10/11/17 06:08 Dose: 1 applic Nystatin (Mycostatin Ointment -) 1 applic TP BID [facility] Last Admin: 10/11/17 09:59 Dose: 1 applic Ondansetron HCl (Zofran Injection) 4 mg IVPUSH Q6H PRN PRN Reason: NAUSEA Quetiapine Fumarate (Seroquel -) 25 mg PO [facility] Last Admin: 10/10/17 22:11 Dose: 25 mg Ranitidine HCl (Zantac -) 150 mg PO BID [facility] Last Admin: 10/11/17 09:55 Dose: 150 mg Trazodone HCl (Desyrel -) 50 mg PO [facility] Last Admin: 10/10/17 22:10 Dose: 50 mg - Objective Vital Signs: Vital Signs Temperature 100.3 F H 10/11/17 09:52 Pulse Rate 80 10/11/17 09:52 Respiratory Rate 14 10/11/17 10:50 Blood Pressure 147/71 10/11/17 09:52 O2 Sat by Pulse Oximetry (%) 98 10/11/17 09:53 Constitutional: Yes: No Distress Cardiovascular: Yes: WNL Respiratory: Yes: Mechanically Ventilated, Rhonchi Musculoskeletal: Yes: Muscle Weakness Extremities: Yes: Other Edema: Yes Integumentary: Yes: Pressure Ulcer, Venous Stasis Changes Wound/Incision: Yes: Dressing Dry and Intact Neurological: Yes: Lethargy, Pre-Existing Deficit ...Motor Strength: LUE, LLE, RUE, RLE Psychiatric: Yes: Other Labs: CBC, BMP 10/09/17 04:30 10/09/17 04:30 INR, PTT INR 0.98 (0.82-1.09) 10/02/17 05:30 Problem List - Problems (1) Brain metastasis Code(s): C79.31 - SECONDARY MALIGNANT NEOPLASM OF BRAIN (2) Headache Code(s): R51 - HEADACHE Qualifiers: Headache chronicity pattern: unspecified pattern Intractability: intractable (3) Intractable vomiting with nausea Code(s): R11.2 - NAUSEA WITH VOMITING, UNSPECIFIED Qualifiers: Vomiting type: unspecified Qualified Code(s): R11.2 - Nausea with vomiting , unspecified (4) SUSAN (acute kidney injury) Code(s): N17.9 - ACUTE KIDNEY FAILURE, UNSPECIFIED (5) Cancer, colon Code(s): C18.9 - MALIGNANT NEOPLASM OF COLON, UNSPECIFIED Qualifiers: Colon location: unspecified part of colon Qualified Code(s): C18.9 - Malignant neoplasm of colon, unspecified (6) Lung mass Code(s): R91.8 - OTHER NONSPECIFIC ABNORMAL FINDING OF LUNG FIELD (7) CVA (cerebral vascular accident) Code(s): I63.9 - CEREBRAL INFARCTION, UNSPECIFIED Assessment/Plan CONTINUE VENT SUPPORT ADJUST TOLERATED PULM F/U SNF WHEN READY NEURO EVAL
[2017-10-11] MEDS: ACETAMINOPHEN 650 MG/20.3 ML ORAL SOLUTION (CUPS) PEG PRN (14:23)
[2017-10-11] MEDS ORDERED: FUROSEMIDE 40 MG TABLET (FP) PEG ONE ×2 (15:24→18:15)
--- NOTE | 2017-10-11 15:24 | PN ---
Progress Note, Physician History of Present Illness: Pt seen and examined at bedside. She remains on vent. She is awake. - Current Medication List Current Medications: Active Medications Acetaminophen (Tylenol Oral Solution -) 650 mg PEG Q6H PRN PRN Reason: FEVER Last Admin: 10/11/17 14:23 Dose: 650 mg Apixaban (Eliquis -) 5 mg PO BID [facility] Last Admin: 10/11/17 09:56 Dose: 5 mg Artificial Tears (Artificial Tears Ointment -) 1 applic OU BID [facility] Last Admin: 10/11/17 09:58 Dose: 1 applic Atorvastatin Calcium (Lipitor -) 20 mg PO HS [facility] Last Admin: 10/10/17 22:11 Dose: 20 mg Digoxin (Lanoxin -) 0.125 mg PEG Q2D@1000 [facility] Last Admin: 10/10/17 11:00 Dose: 0.125 mg Diltiazem HCl 60 mg/ Diltiazem (HCl 30 mg) 90 mg NGT Q6HPO [facility] Last Admin: 10/11/17 12:24 Dose: 90 mg Hydralazine HCl (Apresoline Injection -) 10 mg IVPUSH Q6H PRN PRN Reason: HYPERTENSION IV Flush (Picc Line Flush) 8 ml IVPUSH PRN PRN PRN Reason: Protocol Last Admin: 10/10/17 22:13 Dose: 8 ml Fluconazole (Diflucan 200 Mg/D5w Premixed Ivpb -) 100 mls @ 100 mls/hr IVPB DAILY [facility] Last Admin: 10/11/17 11:22 Dose: 100 mls/hr Ceftazidime (Fortaz (Restricted To Id) -) 1 gm in 10 mls @ 120 mls/hr IVPUSH BID [facility] Last Admin: 10/11/17 11:21 Dose: 120 mls/hr Insulin Aspart (Novolog Vial Sliding Scale -) 1 vial SQ Q6H [facility] PRN Reason: Protocol Last Admin: 10/11/17 12:30 Dose: 8 units Insulin Detemir (Levemir Vial) 10 units SQ BID@0700,2200 [facility] Last Admin: 10/11/17 06:09 Dose: 10 units Metoprolol Tartrate (Lopressor Injection -) 5 mg IVPUSH Q4H PRN PRN Reason: HYPERTENSION Metoprolol Tartrate (Lopressor -) 50 mg NGT BID [facility] Last Admin: 10/11/17 09:55 Dose: 50 mg Mupirocin (Bactroban 2% Ointment -) 1 applic TP TID [facility] Last Admin: 10/11/17 14:24 Dose: 1 applic Nystatin (Mycostatin Ointment -) 1 applic TP BID [facility] Last Admin: 10/11/17 09:59 Dose: 1 applic Ondansetron HCl (Zofran Injection) 4 mg IVPUSH Q6H PRN PRN Reason: NAUSEA Quetiapine Fumarate (Seroquel -) 25 mg PO [facility] Last Admin: 10/10/17 22:11 Dose: 25 mg Ranitidine HCl (Zantac -) 150 mg PO BID [facility] Last Admin: 10/11/17 09:55 Dose: 150 mg Trazodone HCl (Desyrel -) 50 mg PO [facility] Last Admin: 10/10/17 22:10 Dose: 50 mg - Objective Vital Signs: Vital Signs Temperature 101.9 F H 10/11/17 14:00 Pulse Rate 78 10/11/17 14:00 Respiratory Rate 16 10/11/17 14:00 Blood Pressure 156/78 10/11/17 14:00 O2 Sat by Pulse Oximetry (%) 98 10/11/17 09:53 Constitutional: Yes: Calm Eyes: Yes: Conjunctiva Clear Neck: Yes: Other (trache) Cardiovascular: Yes: S1, S2 Respiratory: Yes: Mechanically Ventilated Gastrointestinal: Yes: Soft, Other (peg) Genitourinary: Yes: Incontinence Musculoskeletal: Yes: Muscle Weakness Edema: No Labs: CBC, BMP 10/09/17 04:30 10/09/17 04:30 INR, PTT INR 0.98 (0.82-1.09) 10/02/17 05:30 - ....Imaging Chest X-ray: Report Reviewed Problem List - Problems (1) Brain metastasis Code(s): C79.31 - SECONDARY MALIGNANT NEOPLASM OF BRAIN (2) Headache Code(s): R51 - HEADACHE Qualifiers: Headache chronicity pattern: unspecified pattern Intractability: intractable (3) Metastatic colorectal cancer Code(s): C78.5 - SECONDARY MALIGNANT NEOPLASM OF LARGE INTESTINE AND RECTUM (4) SUSAN (acute kidney injury) Code(s): N17.9 - ACUTE KIDNEY FAILURE, UNSPECIFIED (5) Atrial fibrillation Code(s): I48.91 - UNSPECIFIED ATRIAL FIBRILLATION (6) Cancer, colon Code(s): C18.9 - MALIGNANT NEOPLASM OF COLON, UNSPECIFIED Qualifiers: Colon location: unspecified part of colon Qualified Code(s): C18.9 - Malignant neoplasm of colon, unspecified (7) Lung mass Code(s): R91.8 - OTHER NONSPECIFIC ABNORMAL FINDING OF LUNG FIELD Assessment/Plan Current Medications Generic Name Dose Route Start Last Admin Trade Name Freq PRN Reason Stop Dose Admin Acetaminophen 650 mg 10/06/17 20:09 10/11/17 14:23 Tylenol Oral Solution - PEG 650 mg Q6H PRN Administration FEVER Apixaban 5 mg 10/06/17 22:00 10/11/17 09:56 Eliquis - PO 5 mg BID [facility] Administration Artificial Tears 1 applic 10/06/17 22:00 10/11/17 09:58 Artificial Tears Ointment - OU 1 applic BID [facility] Administration Atorvastatin Calcium 20 mg 10/06/17 22:00 10/10/17 22:11 Lipitor - PO 20 mg HS [facility] Administration Digoxin 0.125 mg 10/08/17 10:00 10/10/17 11:00 Lanoxin - PEG 0.125 mg Q2D@1000 [facility] Administration Diltiazem HCl 60 mg/ Diltiazem 90 mg 10/07/17 00:00 10/11/17 12:24 HCl 30 mg NGT 90 mg Q6HPO [facility] Administration Hydralazine HCl 10 mg 10/06/17 20:09 Apresoline Injection - IVPUSH Q6H PRN HYPERTENSION IV Flush 8 ml 10/09/17 11:32 10/10/17 22:13 Picc Line Flush IVPUSH 8 ml PRN PRN Administration Protocol Fluconazole 100 mls @ 100 mls/hr 10/10/17 10:00 10/11/17 11:22 Diflucan 200 Mg/D5w Premixed Ivpb - IVPB 100 mls/hr DAILY [facility] Administration Ceftazidime 1 gm in 10 mls @ 120 mls/hr 10/10/17 14:00 10/11/17 11:21 Fortaz (Restricted To Id) - IVPUSH 120 mls/hr BID [facility] Administration Insulin Aspart 1 vial 10/07/17 00:00 10/11/17 12:30 Novolog Vial Sliding Scale - SQ 8 units Q6H [facility] Administration Protocol Insulin Detemir 10 units 10/06/17 22:00 10/11/17 06:09 Levemir Vial SQ 10 units BID@0700,2200 [facility] Administration Metoprolol Tartrate 5 mg 10/06/17 20:09 Lopressor Injection - IVPUSH Q4H PRN HYPERTENSION Metoprolol Tartrate 50 mg 10/07/17 10:00 10/11/17 09:55 Lopressor - NGT 50 mg BID [facility] Administration Mupirocin 1 applic 10/09/17 14:00 10/11/17 14:24 Bactroban 2% Ointment - TP 1 applic TID [facility] Administration Nystatin 1 applic 10/06/17 22:00 10/11/17 09:59 Mycostatin Ointment - TP 1 applic BID [facility] Administration Ondansetron HCl 4 mg 10/06/17 20:09 Zofran Injection IVPUSH Q6H PRN NAUSEA Quetiapine Fumarate 25 mg 10/06/17 22:00 10/10/17 22:11 Seroquel - PO 25 mg HS [facility] Administration Ranitidine HCl 150 mg 10/06/17 22:00 10/11/17 09:55 Zantac - PO 150 mg BID [facility] Administration Trazodone HCl 50 mg 10/06/17 22:00 10/10/17 22:10 Desyrel - PO 50 mg HS [facility] Administration Impression 1. CKD 2. SUSAN 3. DM 4. htn 5. chol 6. chemo port malfunction 7. a-fib 8. lung mass 9. proteinuria 10. adenocarcinoma 11. CVA 12. acute resp failure 13. hyperkalemia 14. hypernatremia 15. pleural effusions Plan - check bmp - will give a dose of lasix - cxr reviewed - vent support - cont to monitor mental status - discussed with family - will follow PRN Dr Llanos
[2017-10-11] MEDS: traZODone HCL 50 MG TABLET (FP) PO SCH (21:24)
[2017-10-11] MEDS: QUEtiapine FUMARATE 25 MG TABLET (FP) PO SCH (21:26)
[2017-10-11] MEDS: ATORVASTATIN CA 20 MG TABLET (FP) PO SCH (21:26)
[2017-10-12] MEDS ORDERED: dilTIAZem HCL 60 MG TABLET (FP) ONE ×4 (05:46→21:01)
[2017-10-12] MEDS ORDERED: dilTIAZem HCL 30 MG TABLET (FP) ONE ×4 (05:46→21:01)
[2017-10-12] MEDS: INSULIN SLIDING SCALE (NOVOLOG) 1 VIAL SQ SCH ×3 (06:07→17:43)
[2017-10-12] MEDS: MUPIROCIN 2% TOPICAL OINTMENT 22 GM TUBE TP SCH ×3 (06:08→23:54)
[2017-10-12] MEDS: DILTIAZEM 60 MG, DILTIAZEM 30 MG NGT SCH ×3 (06:09→17:41)
[2017-10-12] MEDS: INSULIN DETEMIR 100 UNITS/ML MDV SQ SCH (06:09)
[2017-10-12 09:07] LABS: ALBUMIN 1.5 g/dl (3.4-5.0); ANION GAP 8 (8-16); BLOOD UREA NITROGEN 31 mg/dL (7-18); CALCIUM 8.1 mg/dL (8.5-10.1); CHLORIDE 99 mmol/L (98-107); CO2 30 mmol/L (21-32); GLUCOSE,RANDOM 278 mg/dL (74-106); POTASSIUM 4.3 mmol/L (3.5-5.1); SGPT/ALT 20 U/L (12-78); SODIUM 137 mmol/L (136-145)
[2017-10-12 09:09] LABS: ALK PHOS 99 U/L (45-117); BILIRUBIN,TOTAL 0.4 mg/dL (0.2-1.0); CREATININE 1.3 mg/dL (0.55-1.02); SGOT/AST 17 U/L (15-37); TOT PROT 5.4 g/dl (6.4-8.2)
[2017-10-12] MEDS ORDERED: INSULIN (NOVOLOG) ASPART 100 UNITS/ML 10ML VIAL ONE ×3 (11:14→21:00)
[2017-10-12] MEDS ORDERED: PT OWN MED DRAWER 7, Y5N ONE ×3 (11:15→21:02)
[2017-10-12] MEDS: NYSTATIN 100000 UNIT/GM TOPICAL OINTMENT 15 GM TUBE TP SCH ×2 (11:29→23:56)
[2017-10-12] MEDS: MINERAL OIL/PETROLATUM,WHITE 3.5 GM TUBE OU SCH ×2 (11:30→23:54)
[2017-10-12] MEDS: CEFTAZIDIME 1 GM IVPUSH SCH (11:31)
[2017-10-12] MEDS: DISP SYRIN IVPUSH SCH (11:31)
[2017-10-12] MEDS: APIXABAN 5 MG TABLET PO SCH ×2 (11:31→23:55)
[2017-10-12] MEDS: PUSH IVPUSH SCH (11:31)
[2017-10-12] MEDS: FLUCONAZOLE 200 MG/D5W 100 ML IVPB SCH (11:31)
[2017-10-12] MEDS: DIGOXIN 0.125 MG TABLET (FP) PEG SCH (11:32)
[2017-10-12] MEDS: METOPROLOL TARTRATE 50 MG TABLET (FP) NGT SCH ×2 (11:36→23:56)
[2017-10-12] MEDS: RANITIDINE HCL 150 MG TABLET (FP) PO SCH ×2 (11:37→23:56)
--- NOTE | 2017-10-12 12:13 | PN ---
Progress Note (short form) - Note Progress Note: PULMONARY Vented on volume assist control, awake. Denies shortness of breath. Attempted CPAP/PS with good tidal volumes/RR. Last Vital Signs Temp Pulse Resp BP Pulse Ox 99.5 F 86 17 164/76 98 10/12/17 06:00 10/12/17 11:32 10/12/17 06:21 10/12/17 06:00 10/11/17 09:53 Gen: vented, awake Heart: RRR Lung: decreased breath sounds at the bases Abd: soft, nontender Ext: + edema CBC, BMP 10/09/17 04:30 10/12/17 06:00 Active Medications Acetaminophen (Tylenol Oral Solution -) 650 mg PEG Q6H PRN PRN Reason: FEVER Last Admin: 10/11/17 14:23 Dose: 650 mg Apixaban (Eliquis -) 5 mg PO BID [facility] Last Admin: 10/12/17 11:31 Dose: 5 mg Artificial Tears (Artificial Tears Ointment -) 1 applic OU BID [facility] Last Admin: 10/12/17 11:30 Dose: 1 applic Atorvastatin Calcium (Lipitor -) 20 mg PO HS [facility] Last Admin: 10/11/17 21:26 Dose: 20 mg Digoxin (Lanoxin -) 0.125 mg PEG Q2D@1000 [facility] Last Admin: 10/12/17 11:32 Dose: 0.125 mg Diltiazem HCl 60 mg/ Diltiazem (HCl 30 mg) 90 mg NGT Q6HPO [facility] Last Admin: 10/12/17 11:42 Dose: 90 mg Hydralazine HCl (Apresoline Injection -) 10 mg IVPUSH Q6H PRN PRN Reason: HYPERTENSION IV Flush (Picc Line Flush) 8 ml IVPUSH PRN PRN PRN Reason: Protocol Last Admin: 10/10/17 22:13 Dose: 8 ml Fluconazole (Diflucan 200 Mg/D5w Premixed Ivpb -) 100 mls @ 100 mls/hr IVPB DAILY [facility] Last Admin: 10/12/17 11:31 Dose: 100 mls/hr Ceftazidime (Fortaz (Restricted To Id) -) 1 gm in 10 mls @ 120 mls/hr IVPUSH BID [facility] Last Admin: 10/12/17 11:31 Dose: 120 mls/hr Linezolid (Zyvox 600 Mg Premix Bag (Restricted To Id) -) 600 mg in 300 mls @ 300 mls/hr IVPB Q12H [facility] PRN Reason: Protocol Insulin Aspart (Novolog Vial Sliding Scale -) 1 vial SQ Q6H [facility] PRN Reason: Protocol Last Admin: 10/12/17 11:43 Dose: 4 units Insulin Detemir (Levemir Vial) 10 units SQ BID@0700,2200 [facility] Last Admin: 10/12/17 06:09 Dose: 10 units Metoprolol Tartrate (Lopressor Injection -) 5 mg IVPUSH Q4H PRN PRN Reason: HYPERTENSION Metoprolol Tartrate (Lopressor -) 50 mg NGT BID [facility] Last Admin: 10/12/17 11:36 Dose: 50 mg Mupirocin (Bactroban 2% Ointment -) 1 applic TP TID [facility] Last Admin: 10/12/17 06:08 Dose: 1 applic Nystatin (Mycostatin Ointment -) 1 applic TP BID [facility] Last Admin: 10/12/17 11:29 Dose: 1 applic Ondansetron HCl (Zofran Injection) 4 mg IVPUSH Q6H PRN PRN Reason: NAUSEA Quetiapine Fumarate (Seroquel -) 25 mg PO HS [facility] Last Admin: 10/11/17 21:26 Dose: 25 mg Ranitidine HCl (Zantac -) 150 mg PO BID [facility] Last Admin: 10/12/17 11:37 Dose: 150 mg Trazodone HCl (Desyrel -) 50 mg PO HS [facility] Last Admin: 10/11/17 21:24 Dose: 50 mg A/P Multiple Acute Embolic CVA Acute Hypoxic Respiratory Failure s/p Tracheostomy Aspiration Pneumonia Atrial Fibrillation with RVR Metastatic Colon Ca to Lung Acute on Chronic Renal Failure HTN DM Hypercholesterolemia - antibiotics per ID - titrate rate control - continue anticoagulation - monitor urine output, creatinine - enteral feeds - start aggressive spontaneous breathing trials in AM - DVT/GI prophylaxis
--- NOTE | 2017-10-12 13:40 | PN ---
Progress Note, Physician Chief Complaint: ASLEEP AROUSABLE ON VENT TRACHEOSTOMY - Current Medication List Current Medications: Active Medications Acetaminophen (Tylenol Oral Solution -) 650 mg PEG Q6H PRN PRN Reason: FEVER Last Admin: 10/11/17 14:23 Dose: 650 mg Apixaban (Eliquis -) 5 mg PO BID [facility] Last Admin: 10/12/17 11:31 Dose: 5 mg Artificial Tears (Artificial Tears Ointment -) 1 applic OU BID [facility] Last Admin: 10/12/17 11:30 Dose: 1 applic Atorvastatin Calcium (Lipitor -) 20 mg PO HS [facility] Last Admin: 10/11/17 21:26 Dose: 20 mg Digoxin (Lanoxin -) 0.125 mg PEG Q2D@1000 [facility] Last Admin: 10/12/17 11:32 Dose: 0.125 mg Diltiazem HCl 60 mg/ Diltiazem (HCl 30 mg) 90 mg NGT Q6HPO [facility] Last Admin: 10/12/17 11:42 Dose: 90 mg Hydralazine HCl (Apresoline Injection -) 10 mg IVPUSH Q6H PRN PRN Reason: HYPERTENSION IV Flush (Picc Line Flush) 8 ml IVPUSH PRN PRN PRN Reason: Protocol Last Admin: 10/10/17 22:13 Dose: 8 ml Fluconazole (Diflucan 200 Mg/D5w Premixed Ivpb -) 100 mls @ 100 mls/hr IVPB DAILY [facility] Last Admin: 10/12/17 11:31 Dose: 100 mls/hr Ceftazidime (Fortaz (Restricted To Id) -) 1 gm in 10 mls @ 120 mls/hr IVPUSH BID [facility] Last Admin: 10/12/17 11:31 Dose: 120 mls/hr Linezolid (Zyvox 600 Mg Premix Bag (Restricted To Id) -) 600 mg in 300 mls @ 300 mls/hr IVPB Q12H [facility] PRN Reason: Protocol Insulin Aspart (Novolog Vial Sliding Scale -) 1 vial SQ Q6H [facility] PRN Reason: Protocol Last Admin: 10/12/17 11:43 Dose: 4 units Insulin Detemir (Levemir Vial) 10 units SQ BID@0700,2200 [facility] Last Admin: 10/12/17 06:09 Dose: 10 units Metoprolol Tartrate (Lopressor Injection -) 5 mg IVPUSH Q4H PRN PRN Reason: HYPERTENSION Metoprolol Tartrate (Lopressor -) 50 mg NGT BID [facility] Last Admin: 10/12/17 11:36 Dose: 50 mg Mupirocin (Bactroban 2% Ointment -) 1 applic TP TID [facility] Last Admin: 10/12/17 06:08 Dose: 1 applic Nystatin (Mycostatin Ointment -) 1 applic TP BID [facility] Last Admin: 10/12/17 11:29 Dose: 1 applic Ondansetron HCl (Zofran Injection) 4 mg IVPUSH Q6H PRN PRN Reason: NAUSEA Quetiapine Fumarate (Seroquel -) 25 mg PO [facility] Last Admin: 10/11/17 21:26 Dose: 25 mg Ranitidine HCl (Zantac -) 150 mg PO BID [facility] Last Admin: 10/12/17 11:37 Dose: 150 mg Trazodone HCl (Desyrel -) 50 mg PO [facility] Last Admin: 10/11/17 21:24 Dose: 50 mg - Objective Vital Signs: Vital Signs Temperature 99.5 F 10/12/17 06:00 Pulse Rate 86 10/12/17 11:32 Respiratory Rate 17 10/12/17 06:21 Blood Pressure 164/76 10/12/17 06:00 O2 Sat by Pulse Oximetry (%) 98 10/11/17 09:53 Constitutional: Yes: Mild Distress Eyes: Yes: WNL HENT: Yes: WNL Neck: Yes: WNL Cardiovascular: Yes: WNL Respiratory: Yes: Mechanically Ventilated Gastrointestinal: Yes: WNL Genitourinary: Yes: Incontinence Musculoskeletal: Yes: Muscle Weakness Extremities: Yes: WNL Edema: Yes Peripheral Pulses WNL: Yes Integumentary: Yes: WNL Wound/Incision: Yes: Dressing Dry and Intact, Unapproximated Neurological: Yes: Weakness, Other ...Motor Strength: LUE, LLE, RUE, RLE Psychiatric: Yes: Other Labs: CBC, BMP 10/09/17 04:30 10/12/17 06:00 INR, PTT INR 0.98 (0.82-1.09) 10/02/17 05:30 Problem List - Problems (1) Brain metastasis Code(s): C79.31 - SECONDARY MALIGNANT NEOPLASM OF BRAIN (2) Headache Code(s): R51 - HEADACHE Qualifiers: Headache chronicity pattern: unspecified pattern Intractability: intractable (3) Intractable vomiting with nausea Code(s): R11.2 - NAUSEA WITH VOMITING, UNSPECIFIED Qualifiers: Vomiting type: unspecified Qualified Code(s): R11.2 - Nausea with vomiting , unspecified (4) SUSAN (acute kidney injury) Code(s): N17.9 - ACUTE KIDNEY FAILURE, UNSPECIFIED (5) Cancer, colon Code(s): C18.9 - MALIGNANT NEOPLASM OF COLON, UNSPECIFIED Qualifiers: Colon location: unspecified part of colon Qualified Code(s): C18.9 - Malignant neoplasm of colon, unspecified (6) Lung mass Code(s): R91.8 - OTHER NONSPECIFIC ABNORMAL FINDING OF LUNG FIELD (7) CVA (cerebral vascular accident) Code(s): I63.9 - CEREBRAL INFARCTION, UNSPECIFIED Assessment/Plan CONTINUE VENT SUPPORT ADJUST TOLERATED DIARRHEA SEND CDIFF RESTRAINTS LIMBS FOR SAFETY PULM F/U SNF WHEN READY NEURO EVAL
[2017-10-12] MEDS: LINEZOLID 600 MG PREMIX BAG 600 MG/300 ML BAG IVPB SCH (14:11)
[2017-10-12] MEDS: ACETAMINOPHEN 650 MG/20.3 ML ORAL SOLUTION (CUPS) PEG PRN (14:50)
[2017-10-12] MEDS ORDERED: FUROSEMIDE 40 MG TABLET (FP) PEG ONE ×2 (18:45→23:45)
--- NOTE | 2017-10-12 18:45 | PN ---
Progress Note, Physician History of Present Illness: Pt seen and examined at bedside. She tolerated dose of lasix yesterday. No great change. - Current Medication List Current Medications: Active Medications Acetaminophen (Tylenol Oral Solution -) 650 mg PEG Q6H PRN PRN Reason: FEVER Last Admin: 10/12/17 14:50 Dose: 650 mg Apixaban (Eliquis -) 5 mg PO BID [facility] Last Admin: 10/12/17 11:31 Dose: 5 mg Artificial Tears (Artificial Tears Ointment -) 1 applic OU BID [facility] Last Admin: 10/12/17 11:30 Dose: 1 applic Atorvastatin Calcium (Lipitor -) 20 mg PO HS [facility] Last Admin: 10/11/17 21:26 Dose: 20 mg Digoxin (Lanoxin -) 0.125 mg PEG Q2D@1000 [facility] Last Admin: 10/12/17 11:32 Dose: 0.125 mg Diltiazem HCl 60 mg/ Diltiazem (HCl 30 mg) 90 mg NGT Q6HPO [facility] Last Admin: 10/12/17 17:41 Dose: 90 mg Hydralazine HCl (Apresoline Injection -) 10 mg IVPUSH Q6H PRN PRN Reason: HYPERTENSION IV Flush (Picc Line Flush) 8 ml IVPUSH PRN PRN PRN Reason: Protocol Last Admin: 10/10/17 22:13 Dose: 8 ml Fluconazole (Diflucan 200 Mg/D5w Premixed Ivpb -) 100 mls @ 100 mls/hr IVPB DAILY [facility] Last Admin: 10/12/17 11:31 Dose: 100 mls/hr Ceftazidime (Fortaz (Restricted To Id) -) 1 gm in 10 mls @ 120 mls/hr IVPUSH BID [facility] Last Admin: 10/12/17 11:31 Dose: 120 mls/hr Linezolid (Zyvox 600 Mg Premix Bag (Restricted To Id) -) 600 mg in 300 mls @ 300 mls/hr IVPB Q12H [facility] PRN Reason: Protocol Last Admin: 10/12/17 14:11 Dose: 300 mls/hr Insulin Aspart (Novolog Vial Sliding Scale -) 1 vial SQ Q6H [facility] PRN Reason: Protocol Last Admin: 10/12/17 17:43 Dose: 8 units Insulin Detemir (Levemir Vial) 10 units SQ BID@0700,2200 [facility] Last Admin: 10/12/17 06:09 Dose: 10 units Metoprolol Tartrate (Lopressor Injection -) 5 mg IVPUSH Q4H PRN PRN Reason: HYPERTENSION Metoprolol Tartrate (Lopressor -) 50 mg NGT BID [facility] Last Admin: 10/12/17 11:36 Dose: 50 mg Mupirocin (Bactroban 2% Ointment -) 1 applic TP TID [facility] Last Admin: 10/12/17 14:51 Dose: 1 applic Nystatin (Mycostatin Ointment -) 1 applic TP BID [facility] Last Admin: 10/12/17 11:29 Dose: 1 applic Ondansetron HCl (Zofran Injection) 4 mg IVPUSH Q6H PRN PRN Reason: NAUSEA Quetiapine Fumarate (Seroquel -) 25 mg PO [facility] Last Admin: 10/11/17 21:26 Dose: 25 mg Ranitidine HCl (Zantac -) 150 mg PO BID [facility] Last Admin: 10/12/17 11:37 Dose: 150 mg Trazodone HCl (Desyrel -) 50 mg PO [facility] Last Admin: 10/11/17 21:24 Dose: 50 mg - Objective Vital Signs: Vital Signs Temperature 100.8 F H 10/12/17 14:41 Pulse Rate 72 10/12/17 14:41 Respiratory Rate 15 10/12/17 17:44 Blood Pressure 174/85 10/12/17 14:41 O2 Sat by Pulse Oximetry (%) 98 10/12/17 10:00 Constitutional: Yes: Calm Eyes: Yes: Conjunctiva Clear HENT: Yes: Atraumatic Neck: Yes: Other (trache) Cardiovascular: Yes: S1, S2 Respiratory: Yes: Mechanically Ventilated Gastrointestinal: Yes: Soft, Other (peg) Musculoskeletal: Yes: Muscle Weakness Edema: Yes Edema: LLE: Trace, RLE: Trace Neurological: Yes: Other (awake) Labs: CBC, BMP 10/09/17 04:30 10/12/17 06:00 INR, PTT INR 0.98 (0.82-1.09) 10/02/17 05:30 Problem List - Problems (1) Brain metastasis Code(s): C79.31 - SECONDARY MALIGNANT NEOPLASM OF BRAIN (2) Headache Code(s): R51 - HEADACHE Qualifiers: Headache chronicity pattern: unspecified pattern Intractability: intractable (3) Metastatic colorectal cancer Code(s): C78.5 - SECONDARY MALIGNANT NEOPLASM OF LARGE INTESTINE AND RECTUM (4) SUSAN (acute kidney injury) Code(s): N17.9 - ACUTE KIDNEY FAILURE, UNSPECIFIED (5) Atrial fibrillation Code(s): I48.91 - UNSPECIFIED ATRIAL FIBRILLATION (6) Cancer, colon Code(s): C18.9 - MALIGNANT NEOPLASM OF COLON, UNSPECIFIED Qualifiers: Colon location: unspecified part of colon Qualified Code(s): C18.9 - Malignant neoplasm of colon, unspecified (7) Lung mass Code(s): R91.8 - OTHER NONSPECIFIC ABNORMAL FINDING OF LUNG FIELD Assessment/Plan Current Medications Generic Name Dose Route Start Last Admin Trade Name Freq PRN Reason Stop Dose Admin Acetaminophen 650 mg 10/06/17 20:09 10/12/17 14:50 Tylenol Oral Solution - PEG 650 mg Q6H PRN Administration FEVER Apixaban 5 mg 10/06/17 22:00 10/12/17 11:31 Eliquis - PO 5 mg BID [facility] Administration Artificial Tears 1 applic 10/06/17 22:00 10/12/17 11:30 Artificial Tears Ointment - OU 1 applic BID [facility] Administration Atorvastatin Calcium 20 mg 10/06/17 22:00 10/11/17 21:26 Lipitor - PO 20 mg HS [facility] Administration Digoxin 0.125 mg 10/08/17 10:00 10/12/17 11:32 Lanoxin - PEG 0.125 mg Q2D@1000 [facility] Administration Diltiazem HCl 60 mg/ Diltiazem 90 mg 10/07/17 00:00 10/12/17 17:41 HCl 30 mg NGT 90 mg Q6HPO [facility] Administration Hydralazine HCl 10 mg 10/06/17 20:09 Apresoline Injection - IVPUSH Q6H PRN HYPERTENSION IV Flush 8 ml 10/09/17 11:32 10/10/17 22:13 Picc Line Flush IVPUSH 8 ml PRN PRN Administration Protocol Fluconazole 100 mls @ 100 mls/hr 10/10/17 10:00 10/12/17 11:31 Diflucan 200 Mg/D5w Premixed Ivpb - IVPB 100 mls/hr DAILY [facility] Administration Ceftazidime 1 gm in 10 mls @ 120 mls/hr 10/10/17 14:00 10/12/17 11:31 Fortaz (Restricted To Id) - IVPUSH 120 mls/hr BID [facility] Administration Linezolid 600 mg in 300 mls @ 300 mls/hr 10/12/17 10:15 10/12/17 14:11 Zyvox 600 Mg Premix Bag (Restricted To Id) - IVPB 300 mls/hr Q12H [facility] Administration Protocol Insulin Aspart 1 vial 10/07/17 00:00 10/12/17 17:43 Novolog Vial Sliding Scale - SQ 8 units Q6H [facility] Administration Protocol Insulin Detemir 10 units 10/06/17 22:00 10/12/17 06:09 Levemir Vial SQ 10 units BID@0700,2200 [facility] Administration Metoprolol Tartrate 5 mg 10/06/17 20:09 Lopressor Injection - IVPUSH Q4H PRN HYPERTENSION Metoprolol Tartrate 50 mg 10/07/17 10:00 10/12/17 11:36 Lopressor - NGT 50 mg BID [facility] Administration Mupirocin 1 applic 10/09/17 14:00 10/12/17 14:51 Bactroban 2% Ointment - TP 1 applic TID [facility] Administration Nystatin 1 applic 10/06/17 22:00 10/12/17 11:29 Mycostatin Ointment - TP 1 applic BID [facility] Administration Ondansetron HCl 4 mg 10/06/17 20:09 Zofran Injection IVPUSH Q6H PRN NAUSEA Quetiapine Fumarate 25 mg 10/06/17 22:00 10/11/17 21:26 Seroquel - PO 25 mg HS [facility] Administration Ranitidine HCl 150 mg 10/06/17 22:00 10/12/17 11:37 Zantac - PO 150 mg BID [facility] Administration Trazodone HCl 50 mg 10/06/17 22:00 10/11/17 21:24 Desyrel - PO 50 mg HS [facility] Administration Impression 1. CKD 2. SUSAN 3. DM 4. htn 5. chol 6. chemo port malfunction 7. a-fib 8. lung mass 9. proteinuria 10. adenocarcinoma 11. CVA 12. acute resp failure 13. hyperkalemia 14. hypernatremia 15. pleural effusions Plan - will give another dose of lasix today - repeat labs in am - pulm rehab, trials to start tomorrow - vent support - cont to monitor mental status - will follow PRN Dr Llanos
[2017-10-12] MEDS ORDERED: FUROSEMIDE 40 MG/4 ML INJECTABLE VIAL ONE (23:25)
[2017-10-12] MEDS: traZODone HCL 50 MG TABLET (FP) PO SCH (23:55)
[2017-10-12] MEDS: ATORVASTATIN CA 20 MG TABLET (FP) PO SCH (23:55)
[2017-10-12] MEDS: QUEtiapine FUMARATE 25 MG TABLET (FP) PO SCH (23:56)
[2017-10-13] MEDS: LINEZOLID 600 MG PREMIX BAG 600 MG/300 ML BAG IVPB SCH ×2 (00:01→11:35)
[2017-10-13] MEDS: CEFTAZIDIME 1 GM IVPUSH SCH ×3 (00:01→21:50)
[2017-10-13] MEDS: PUSH IVPUSH SCH ×3 (00:01→21:50)
[2017-10-13] MEDS: DISP SYRIN IVPUSH SCH ×3 (00:01→21:50)
[2017-10-13] MEDS: INSULIN SLIDING SCALE (NOVOLOG) 1 VIAL SQ SCH ×4 (00:08→18:11)
[2017-10-13] MEDS: INSULIN DETEMIR 100 UNITS/ML MDV SQ SCH ×3 (00:11→21:50)
[2017-10-13] MEDS: DILTIAZEM 60 MG, DILTIAZEM 30 MG NGT SCH ×4 (00:13→17:51)
[2017-10-13] MEDS ORDERED: dilTIAZem HCL 60 MG TABLET (FP) ONE ×4 (06:27→23:08)
[2017-10-13] MEDS ORDERED: dilTIAZem HCL 30 MG TABLET (FP) ONE ×4 (06:27→23:07)
[2017-10-13] MEDS: MUPIROCIN 2% TOPICAL OINTMENT 22 GM TUBE TP SCH ×3 (06:38→21:50)
[2017-10-13] MEDS: ACETAMINOPHEN 650 MG/20.3 ML ORAL SOLUTION (CUPS) PEG PRN ×2 (06:41→17:50)
[2017-10-13 09:10] LABS: ANION GAP 12 (8-16); BLOOD UREA NITROGEN 29 mg/dL (7-18); CALCIUM 8.6 mg/dL (8.5-10.1); CHLORIDE 96 mmol/L (98-107); CO2 28 mmol/L (21-32); CREATININE 1.4 mg/dL (0.55-1.02); POTASSIUM 3.5 mmol/L (3.5-5.1); SODIUM 136 mmol/L (136-145)
[2017-10-13] MEDS ORDERED: PT OWN MED DRAWER 7, Y5N ONE (09:51)
[2017-10-13 09:55] LABS: GLUCOSE,RANDOM 346 mg/dL (74-106)
[2017-10-13] MEDS: RANITIDINE HCL 150 MG TABLET (FP) PO SCH ×2 (10:12→21:48)
[2017-10-13] MEDS: APIXABAN 5 MG TABLET PO SCH ×2 (10:12→21:49)
[2017-10-13] MEDS: METOPROLOL TARTRATE 50 MG TABLET (FP) NGT SCH ×2 (10:13→21:48)
[2017-10-13] MEDS: FLUCONAZOLE 200 MG/D5W 100 ML IVPB SCH (10:13)
[2017-10-13] MEDS: MINERAL OIL/PETROLATUM,WHITE 3.5 GM TUBE OU SCH ×2 (10:15→21:50)
[2017-10-13] MEDS: NYSTATIN 100000 UNIT/GM TOPICAL OINTMENT 15 GM TUBE TP SCH ×2 (10:16→21:49)
--- NOTE | 2017-10-13 10:58 | PN ---
Progress Note, Physician Chief Complaint: awake alert trach can communicate mouth words temp 101 today in morning no report on loose BM at night - Current Medication List Current Medications: Active Medications Acetaminophen (Tylenol Oral Solution -) 650 mg PEG Q6H PRN PRN Reason: FEVER Last Admin: 10/13/17 06:41 Dose: 650 mg Apixaban (Eliquis -) 5 mg PO BID [facility] Last Admin: 10/13/17 10:12 Dose: 5 mg Artificial Tears (Artificial Tears Ointment -) 1 applic OU BID [facility] Last Admin: 10/13/17 10:15 Dose: 1 applic Atorvastatin Calcium (Lipitor -) 20 mg PO HS [facility] Last Admin: 10/12/17 23:55 Dose: 20 mg Digoxin (Lanoxin -) 0.125 mg PEG Q2D@1000 [facility] Last Admin: 10/12/17 11:32 Dose: 0.125 mg Diltiazem HCl 60 mg/ Diltiazem (HCl 30 mg) 90 mg NGT Q6HPO [facility] Last Admin: 10/13/17 06:39 Dose: 90 mg Hydralazine HCl (Apresoline Injection -) 10 mg IVPUSH Q6H PRN PRN Reason: HYPERTENSION IV Flush (Picc Line Flush) 8 ml IVPUSH PRN PRN PRN Reason: Protocol Last Admin: 10/10/17 22:13 Dose: 8 ml Fluconazole (Diflucan 200 Mg/D5w Premixed Ivpb -) 100 mls @ 100 mls/hr IVPB DAILY [facility] Last Admin: 10/13/17 10:13 Dose: 100 mls/hr Ceftazidime (Fortaz (Restricted To Id) -) 1 gm in 10 mls @ 120 mls/hr IVPUSH BID [facility] Last Admin: 10/13/17 10:12 Dose: 120 mls/hr Linezolid (Zyvox 600 Mg Premix Bag (Restricted To Id) -) 600 mg in 300 mls @ 300 mls/hr IVPB Q12H [facility] PRN Reason: Protocol Last Admin: 10/13/17 00:01 Dose: 300 mls/hr Insulin Aspart (Novolog Vial Sliding Scale -) 1 vial SQ Q6H [facility] PRN Reason: Protocol Last Admin: 10/13/17 06:40 Dose: 8 units Insulin Detemir (Levemir Vial) 10 units SQ BID@0700,2200 [facility] Last Admin: 10/13/17 06:39 Dose: 10 units Metoprolol Tartrate (Lopressor Injection -) 5 mg IVPUSH Q4H PRN PRN Reason: HYPERTENSION Last Admin: 10/13/17 06:41 Dose: 5 mg Metoprolol Tartrate (Lopressor -) 50 mg NGT BID [facility] Last Admin: 10/13/17 10:13 Dose: 50 mg Mupirocin (Bactroban 2% Ointment -) 1 applic TP TID [facility] Last Admin: 10/13/17 06:38 Dose: 1 appful Nystatin (Mycostatin Ointment -) 1 applic TP BID [facility] Last Admin: 10/13/17 10:16 Dose: 1 applic Ondansetron HCl (Zofran Injection) 4 mg IVPUSH Q6H PRN PRN Reason: NAUSEA Quetiapine Fumarate (Seroquel -) 25 mg PO [facility] Last Admin: 10/12/17 23:56 Dose: 25 mg Ranitidine HCl (Zantac -) 150 mg PO BID [facility] Last Admin: 10/13/17 10:12 Dose: 150 mg Trazodone HCl (Desyrel -) 50 mg PO [facility] Last Admin: 10/12/17 23:55 Dose: 50 mg - Objective Vital Signs: Vital Signs Temperature 101.7 F H 10/13/17 06:00 Pulse Rate 83 10/13/17 06:41 Respiratory Rate 14 10/13/17 07:09 Blood Pressure 165/80 10/13/17 06:41 O2 Sat by Pulse Oximetry (%) 98 10/12/17 21:00 Constitutional: Yes: Calm Neck: Yes: Other (trach) Cardiovascular: Yes: Regular Rate and Rhythm, S1, S2 Respiratory: Yes: Mechanically Ventilated, Stridor Gastrointestinal: Yes: Normal Bowel Sounds, Soft, Other (peg) Edema: No Neurological: Yes: Alert, Oriented Labs: CBC, BMP 10/09/17 04:30 10/13/17 07:00 INR, PTT INR 0.98 (0.82-1.09) 10/02/17 05:30 Problem List - Problems (1) Fever Assessment/Plan: c diff pending sheeba on fluconazole uti pseudomonas on fortaz started on linezolid as well Code(s): R50.9 - FEVER, UNSPECIFIED (2) UTI (urinary tract infection) Assessment/Plan: Microbiology 10/09/17 04:30 Urine - Urine - Catheterized Urine Culture - Final Pseudomonas Aeruginosa ceftazidime c diff is pending Code(s): N39.0 - URINARY TRACT INFECTION, SITE NOT SPECIFIED (3) Sheeba infection Assessment/Plan: diflucan 200mg daily topical antifungal cream to groin Code(s): B37.9 - CANDIDIASIS, UNSPECIFIED (4) Respiratory failure Assessment/Plan: s/p tracheostomy vent support bactroban to trach site Code(s): J96.90 - RESPIRATORY FAILURE, UNSP, UNSP W HYPOXIA OR HYPERCAPNIA (5) Pneumonia Assessment/Plan: iv zosyn s/p 8 day course abx stopped Code(s): J18.9 - PNEUMONIA, UNSPECIFIED ORGANISM (6) Atrial fibrillation Assessment/Plan: digoxin,cardizem and metoprolol eliquis bid Code(s): I48.91 - UNSPECIFIED ATRIAL FIBRILLATION (7) Anemia Assessment/Plan: ppi GI follow up noted Code(s): D64.9 - ANEMIA, UNSPECIFIED (8) Diabetes Assessment/Plan: insulin bgm ok for now Code(s): E11.9 - TYPE 2 DIABETES MELLITUS WITHOUT COMPLICATIONS Qualifiers: Diabetes mellitus type: type 2 (9) CVA (cerebral vascular accident) Assessment/Plan: S/p multiple acute embolic infarcts - s/p trach on vent s/p peg now needs snf placement Code(s): I63.9 - CEREBRAL INFARCTION, UNSPECIFIED
[2017-10-13 11:05] LABS: HEMATOCRIT 31.6 % (32.4-45.2); HEMOGLOBIN 10.1 GM/dL (10.7-15.3); MEAN CELL VOLUME 87.5 fl (80-96); PLATELET COUNT 448 K/MM3 (134-434); RBC 3.61 M/mm3 (3.60-5.2); RDW 16.5 % (11.6-15.6); WHITE BLOOD COUNT 12.2 K/mm3 (4.0-10.0)
[2017-10-13 11:37] LABS: PLATELET ESTIMATE ADEQUATE
--- NOTE | 2017-10-13 12:07 | PN ---
Progress Note (short form) - Note Progress Note: PULMONARY Vented on volume assist control, awake. Denies shortness of breath. Febrile this AM. Last Vital Signs Temp Pulse Resp BP Pulse Ox 100.5 F H 81 16 145/73 98 10/13/17 09:00 10/13/17 09:00 10/13/17 10:00 10/13/17 09:00 10/12/17 21:00 Gen: vented, awake Heart: RRR Lung: decreased breath sounds at the bases Abd: soft, nontender Ext: + edema CBC, BMP 10/13/17 11:00 10/13/17 07:00 Active Medications Acetaminophen (Tylenol Oral Solution -) 650 mg PEG Q6H PRN PRN Reason: FEVER Last Admin: 10/13/17 06:41 Dose: 650 mg Apixaban (Eliquis -) 5 mg PO BID [facility] Last Admin: 10/13/17 10:12 Dose: 5 mg Artificial Tears (Artificial Tears Ointment -) 1 applic OU BID [facility] Last Admin: 10/13/17 10:15 Dose: 1 applic Atorvastatin Calcium (Lipitor -) 20 mg PO HS [facility] Last Admin: 10/12/17 23:55 Dose: 20 mg Digoxin (Lanoxin -) 0.125 mg PEG Q2D@1000 [facility] Last Admin: 10/12/17 11:32 Dose: 0.125 mg Diltiazem HCl 60 mg/ Diltiazem (HCl 30 mg) 90 mg NGT Q6HPO [facility] Last Admin: 10/13/17 06:39 Dose: 90 mg Hydralazine HCl (Apresoline Injection -) 10 mg IVPUSH Q6H PRN PRN Reason: HYPERTENSION IV Flush (Picc Line Flush) 8 ml IVPUSH PRN PRN PRN Reason: Protocol Last Admin: 10/10/17 22:13 Dose: 8 ml Fluconazole (Diflucan 200 Mg/D5w Premixed Ivpb -) 100 mls @ 100 mls/hr IVPB DAILY [facility] Last Admin: 10/13/17 10:13 Dose: 100 mls/hr Ceftazidime (Fortaz (Restricted To Id) -) 1 gm in 10 mls @ 120 mls/hr IVPUSH BID [facility] Last Admin: 10/13/17 10:12 Dose: 120 mls/hr Linezolid (Zyvox 600 Mg Premix Bag (Restricted To Id) -) 600 mg in 300 mls @ 300 mls/hr IVPB Q12H [facility] PRN Reason: Protocol Last Admin: 10/13/17 11:35 Dose: 300 mls/hr Insulin Aspart (Novolog Vial Sliding Scale -) 1 vial SQ Q6H [facility] PRN Reason: Protocol Last Admin: 10/13/17 06:40 Dose: 8 units Insulin Detemir (Levemir Vial) 10 units SQ BID@0700,2200 [facility] Last Admin: 10/13/17 06:39 Dose: 10 units Metoprolol Tartrate (Lopressor Injection -) 5 mg IVPUSH Q4H PRN PRN Reason: HYPERTENSION Last Admin: 10/13/17 06:41 Dose: 5 mg Metoprolol Tartrate (Lopressor -) 50 mg NGT BID [facility] Last Admin: 10/13/17 10:13 Dose: 50 mg Mupirocin (Bactroban 2% Ointment -) 1 applic TP TID [facility] Last Admin: 10/13/17 06:38 Dose: 1 appful Nystatin (Mycostatin Ointment -) 1 applic TP BID [facility] Last Admin: 10/13/17 10:16 Dose: 1 applic Ondansetron HCl (Zofran Injection) 4 mg IVPUSH Q6H PRN PRN Reason: NAUSEA Quetiapine Fumarate (Seroquel -) [address] [facility] Last Admin: 10/12/17 23:56 Dose: 25 mg Ranitidine HCl (Zantac -) 150 mg PO BID [facility] Last Admin: 10/13/17 10:12 Dose: 150 mg Trazodone HCl (Desyrel -) [address] [facility] Last Admin: 10/12/17 23:55 Dose: 50 mg A/P Multiple Acute Embolic CVA Acute Hypoxic Respiratory Failure s/p Tracheostomy Aspiration Pneumonia Atrial Fibrillation with RVR Metastatic Colon Ca to Lung Acute on Chronic Renal Failure HTN DM Hypercholesterolemia - antibiotics per ID - titrate rate control - continue anticoagulation - monitor urine output, creatinine - enteral feeds - placed on SIMV, back up rate 8, pressure support 8 - DVT/GI prophylaxis
--- NOTE | 2017-10-13 13:12 | PN ---
Progress Note, [employer] - Note Progress Note: Selected Entries 10/13/17 10/13/17 10/13/17 02:00 06:00 09:00 Temperature 99.6 F 101.7 F H 100.5 F H Laboratory Tests 10/13/17 11:00 WBC 12.2 H D Diarrhea. Lethargy. Mouthing words at times. Suggest: Passy Una Valve evaluation next week, if stronger and medically stable.
--- NOTE | 2017-10-13 15:50 | PN ---
Progress Note (short form) - Note Progress Note: asked to see for fevers s/p trach s/p gt awake and alert continued low grade fevers Vital Signs Period Temp Pulse Resp BP Sys/Mcdaniel Pulse Ox Last 24 Hr 98.0 F-101.7 F 69-85 14-19 145-172/69-87 98-99 trach to vent cor-rrr lungs decreased bs at bases abd soft,nt +GT ext no edema picc line no erythema CBC, BMP 10/13/17 11:00 10/13/17 07:00 Microbiology 10/08/17 15:00 Blood - Peripheral Venous Blood Culture - Final NO GROWTH AFTER 5 DAYS INCUBATION 10/11/17 14:50 Blood - Peripheral Venous Blood Culture - Preliminary NO GROWTH OBTAINED AFTER 48 HOURS, INCUBATION TO CONTINUE FOR 3 DAYS. 10/11/17 14:50 Blood - Peripheral Venous Blood Culture - Preliminary NO GROWTH OBTAINED AFTER 48 HOURS, INCUBATION TO CONTINUE FOR 3 DAYS. 10/12/17 17:30 Stool Clostridium difficile Antigen (DARRIN) - Final 10/12/17 17:30 Stool Clostridium difficile Toxin Assay - Final 10/08/17 13:27 Blood - Peripheral Venous Blood Culture - Final NO GROWTH AFTER 5 DAYS INCUBATION 10/11/17 15:30 Sputum - Endotrachea Suction/Ventilator Gram Stain - Final 10/11/17 15:30 Sputum - Endotrachea Suction/Ventilator Sputum Culture - Preliminary Yeast Like Organism 10/11/17 16:30 Urine - Urine - Catheterized Urine Culture - Final 10/06/17 12:50 Sputum - Endotrachea Suction/Ventilator Gram Stain - Final 10/06/17 12:50 Sputum - Endotrachea Suction/Ventilator Sputum Culture - Final Yeast Like Organism 10/09/17 04:15 Blood - Peripheral Venous Blood Culture - Preliminary NO GROWTH OBTAINED AFTER 96 HOURS, INCUBATION TO CONTINUE FOR 1 DAYS. 10/09/17 04:30 Blood - Peripheral Venous Blood Culture - Preliminary NO GROWTH OBTAINED AFTER 96 HOURS, INCUBATION TO CONTINUE FOR 1 DAYS. cdiff is negative a/p persistent fevers despite broadspectrum abx - zyvox day #1/fortaz day #3/ diflucan #[address] chest to r/o pneumonia d/c zyvox fortaz/diflucan for now s/p trach and vent CVA Afib metastatic colon cancer Renal insufficiency diabetes
--- NOTE | 2017-10-13 18:01 | PN ---
Progress Note, Physician History of Present Illness: Pt seen and examined at bedside. She is awake and responds to simple commands. - Current Medication List Current Medications: Active Medications Acetaminophen (Tylenol Oral Solution -) 650 mg PEG Q6H PRN PRN Reason: FEVER Last Admin: 10/13/17 17:50 Dose: 650 mg Apixaban (Eliquis -) 5 mg PO BID [facility] Last Admin: 10/13/17 10:12 Dose: 5 mg Artificial Tears (Artificial Tears Ointment -) 1 applic OU BID [facility] Last Admin: 10/13/17 10:15 Dose: 1 applic Atorvastatin Calcium (Lipitor -) 20 mg PO HS [facility] Last Admin: 10/12/17 23:55 Dose: 20 mg Digoxin (Lanoxin -) 0.125 mg PEG Q2D@1000 [facility] Last Admin: 10/12/17 11:32 Dose: 0.125 mg Diltiazem HCl 60 mg/ Diltiazem (HCl 30 mg) 90 mg NGT Q6HPO [facility] Last Admin: 10/13/17 17:51 Dose: 90 mg Hydralazine HCl (Apresoline Injection -) 10 mg IVPUSH Q6H PRN PRN Reason: HYPERTENSION IV Flush (Picc Line Flush) 8 ml IVPUSH PRN PRN PRN Reason: Protocol Last Admin: 10/10/17 22:13 Dose: 8 ml Fluconazole (Diflucan 200 Mg/D5w Premixed Ivpb -) 100 mls @ 100 mls/hr IVPB DAILY [facility] Last Admin: 10/13/17 10:13 Dose: 100 mls/hr Ceftazidime (Fortaz (Restricted To Id) -) 1 gm in 10 mls @ 120 mls/hr IVPUSH BID [facility] Last Admin: 10/13/17 10:12 Dose: 120 mls/hr Insulin Aspart (Novolog Vial Sliding Scale -) 1 vial SQ Q6H [facility] PRN Reason: Protocol Last Admin: 10/13/17 12:03 Dose: 8 units Insulin Detemir (Levemir Vial) 10 units SQ BID@0700,2200 [facility] Last Admin: 10/13/17 06:39 Dose: 10 units Metoprolol Tartrate (Lopressor Injection -) 5 mg IVPUSH Q4H PRN PRN Reason: HYPERTENSION Last Admin: 10/13/17 06:41 Dose: 5 mg Metoprolol Tartrate (Lopressor -) 50 mg NGT BID [facility] Last Admin: 10/13/17 10:13 Dose: 50 mg Mupirocin (Bactroban 2% Ointment -) 1 applic TP TID [facility] Last Admin: 10/13/17 14:48 Dose: 1 appful Nystatin (Mycostatin Ointment -) 1 applic TP BID [facility] Last Admin: 10/13/17 10:16 Dose: 1 applic Ondansetron HCl (Zofran Injection) 4 mg IVPUSH Q6H PRN PRN Reason: NAUSEA Quetiapine Fumarate (Seroquel -) [address] [facility] Last Admin: 10/12/17 23:56 Dose: 25 mg Ranitidine HCl (Zantac -) 150 mg PO BID [facility] Last Admin: 10/13/17 10:12 Dose: 150 mg Trazodone HCl (Desyrel -) [address] [facility] Last Admin: 10/12/17 23:55 Dose: 50 mg - Objective Vital Signs: Vital Signs Temperature 98.0 F 10/13/17 14:34 Pulse Rate 69 10/13/17 14:34 Respiratory Rate 18 10/13/17 17:46 Blood Pressure 151/69 10/13/17 14:34 O2 Sat by Pulse Oximetry (%) 99 10/13/17 09:00 Constitutional: Yes: Calm Eyes: Yes: Conjunctiva Clear Neck: Yes: Other (trache) Cardiovascular: Yes: S1, S2 Respiratory: Yes: Mechanically Ventilated Gastrointestinal: Yes: Soft, Other (peg) Genitourinary: Yes: Incontinence Musculoskeletal: Yes: Muscle Weakness Edema: No Neurological: Yes: Oriented Labs: CBC, BMP 10/13/17 11:00 10/13/17 07:00 INR, PTT INR 0.98 (0.82-1.09) 10/02/17 05:30 Problem List - Problems (1) Brain metastasis Code(s): C79.31 - SECONDARY MALIGNANT NEOPLASM OF BRAIN (2) Headache Code(s): R51 - HEADACHE Qualifiers: Headache chronicity pattern: unspecified pattern Intractability: intractable (3) Metastatic colorectal cancer Code(s): C78.5 - SECONDARY MALIGNANT NEOPLASM OF LARGE INTESTINE AND RECTUM (4) SUSAN (acute kidney injury) Code(s): N17.9 - ACUTE KIDNEY FAILURE, UNSPECIFIED (5) Atrial fibrillation Code(s): I48.91 - UNSPECIFIED ATRIAL FIBRILLATION (6) Cancer, colon Code(s): C18.9 - MALIGNANT NEOPLASM OF COLON, UNSPECIFIED Qualifiers: Colon location: unspecified part of colon Qualified Code(s): C18.9 - Malignant neoplasm of colon, unspecified (7) Lung mass Code(s): R91.8 - OTHER NONSPECIFIC ABNORMAL FINDING OF LUNG FIELD Assessment/Plan Current Medications Generic Name Dose Route Start Last Admin Trade Name Freq PRN Reason Stop Dose Admin Acetaminophen 650 mg 10/06/17 20:09 10/12/17 14:50 Tylenol Oral Solution - PEG 650 mg Q6H PRN Administration FEVER Apixaban 5 mg 10/06/17 22:00 10/12/17 11:31 Eliquis - PO 5 mg BID [facility] Administration Artificial Tears 1 applic 10/06/17 22:00 10/12/17 11:30 Artificial Tears Ointment - OU 1 applic BID [facility] Administration Atorvastatin Calcium 20 mg 10/06/17 22:00 10/11/17 21:26 Lipitor - PO 20 mg HS [facility] Administration Digoxin 0.125 mg 10/08/17 10:00 10/12/17 11:32 Lanoxin - PEG 0.125 mg Q2D@1000 [facility] Administration Diltiazem HCl 60 mg/ Diltiazem 90 mg 10/07/17 00:00 10/12/17 17:41 HCl 30 mg NGT 90 mg Q6HPO [facility] Administration Hydralazine HCl 10 mg 10/06/17 20:09 Apresoline Injection - IVPUSH Q6H PRN HYPERTENSION IV Flush 8 ml 10/09/17 11:32 10/10/17 22:13 Picc Line Flush IVPUSH 8 ml PRN PRN Administration Protocol Fluconazole 100 mls @ 100 mls/hr 10/10/17 10:00 10/12/17 11:31 Diflucan 200 Mg/D5w Premixed Ivpb - IVPB 100 mls/hr DAILY [facility] Administration Ceftazidime 1 gm in 10 mls @ 120 mls/hr 10/10/17 14:00 10/12/17 11:31 Fortaz (Restricted To Id) - IVPUSH 120 mls/hr BID [facility] Administration Linezolid 600 mg in 300 mls @ 300 mls/hr 10/12/17 10:15 10/12/17 14:11 Zyvox 600 Mg Premix Bag (Restricted To Id) - IVPB 300 mls/hr Q12H [facility] Administration Protocol Insulin Aspart 1 vial 10/07/17 00:00 10/12/17 17:43 Novolog Vial Sliding Scale - SQ 8 units Q6H [facility] Administration Protocol Insulin Detemir 10 units 10/06/17 22:00 10/12/17 06:09 Levemir Vial SQ 10 units BID@0700,2200 [facility] Administration Metoprolol Tartrate 5 mg 10/06/17 20:09 Lopressor Injection - IVPUSH Q4H PRN HYPERTENSION Metoprolol Tartrate 50 mg 10/07/17 10:00 10/12/17 11:36 Lopressor - NGT 50 mg BID [facility] Administration Mupirocin 1 applic 10/09/17 14:00 10/12/17 14:51 Bactroban 2% Ointment - TP 1 applic TID [facility] Administration Nystatin 1 applic 10/06/17 22:00 10/12/17 11:29 Mycostatin Ointment - TP 1 applic BID [facility] Administration Ondansetron HCl 4 mg 10/06/17 20:09 Zofran Injection IVPUSH Q6H PRN NAUSEA Quetiapine Fumarate 25 mg 10/06/17 22:00 10/11/17 21:26 Seroquel - PO 25 mg HS [facility] Administration Ranitidine HCl 150 mg 10/06/17 22:00 10/12/17 11:37 Zantac - PO 150 mg BID [facility] Administration Trazodone HCl 50 mg 10/06/17 22:00 10/11/17 21:24 Desyrel - PO 50 mg HS [facility] Administration Impression 1. CKD 2. SUSAN 3. DM 4. htn 5. chol 6. chemo port malfunction 7. a-fib 8. lung mass 9. proteinuria 10. adenocarcinoma 11. CVA 12. acute resp failure 13. hyperkalemia 14. hypernatremia 15. pleural effusions Plan - follow ct scan results - will hold off lasix for now - repeat labs in am - renal function stable - pulm rehab - vent support - discussed with family Dr Llanos
[2017-10-13] MEDS: traZODone HCL 50 MG TABLET (FP) PO SCH (21:48)
[2017-10-13] MEDS: ATORVASTATIN CA 20 MG TABLET (FP) PO SCH (21:48)
[2017-10-13] MEDS: QUEtiapine FUMARATE 25 MG TABLET (FP) PO SCH (21:50)
[2017-10-14] MEDS: DILTIAZEM 60 MG, DILTIAZEM 30 MG NGT SCH ×5 (00:02→23:38)
[2017-10-14] MEDS: INSULIN SLIDING SCALE (NOVOLOG) 1 VIAL SQ SCH ×5 (00:02→23:38)
[2017-10-14] MEDS ORDERED: dilTIAZem HCL 60 MG TABLET (FP) ONE ×4 (05:27→22:49)
[2017-10-14] MEDS ORDERED: dilTIAZem HCL 30 MG TABLET (FP) ONE ×4 (05:27→22:49)
[2017-10-14] MEDS: MUPIROCIN 2% TOPICAL OINTMENT 22 GM TUBE TP SCH ×3 (05:57→23:39)
[2017-10-14] MEDS: INSULIN DETEMIR 100 UNITS/ML MDV SQ SCH ×2 (06:07→22:10)
[2017-10-14] MEDS: MINERAL OIL/PETROLATUM,WHITE 3.5 GM TUBE OU SCH ×2 (10:12→23:38)
[2017-10-14] MEDS: ACETAMINOPHEN 650 MG/20.3 ML ORAL SOLUTION (CUPS) PEG PRN ×2 (10:39→23:40)
[2017-10-14] MEDS ORDERED: PT OWN MED DRAWER 7, Y5N ONE (10:46)
[2017-10-14] MEDS: DIGOXIN 0.125 MG TABLET (FP) PEG SCH (11:03)
[2017-10-14] MEDS: RANITIDINE HCL 150 MG TABLET (FP) PO SCH ×2 (11:03→22:04)
[2017-10-14] MEDS: DISP SYRIN IVPUSH SCH (11:04)
[2017-10-14] MEDS: APIXABAN 5 MG TABLET PO SCH ×2 (11:04→23:01)
[2017-10-14] MEDS: PUSH IVPUSH SCH (11:04)
[2017-10-14] MEDS: CEFTAZIDIME 1 GM IVPUSH SCH (11:04)
[2017-10-14] MEDS: METOPROLOL TARTRATE 50 MG TABLET (FP) NGT SCH ×2 (11:05→22:04)
[2017-10-14] MEDS: FLUCONAZOLE 200 MG/D5W 100 ML IVPB SCH (11:12)
[2017-10-14] MEDS: NYSTATIN 100000 UNIT/GM TOPICAL OINTMENT 15 GM TUBE TP SCH ×2 (11:19→23:39)
--- NOTE | 2017-10-14 11:37 | PN ---
Progress Note (short form) - Note Progress Note: PULMONARY Tolerating SIMV trials. Denies shortness of breath. Febrile this AM. Last Vital Signs Temp Pulse Resp BP Pulse Ox 100.5 F H 95 H 18 172/75 96 10/14/17 08:00 10/14/17 11:03 10/14/17 09:09 10/14/17 06:00 10/14/17 09:09 Gen: vented, awake Heart: RRR Lung: decreased breath sounds at the bases Abd: soft, nontender Ext: + edema CBC, BMP 10/13/17 11:00 10/13/17 07:00 Active Medications Acetaminophen (Tylenol Oral Solution -) 650 mg PEG Q6H PRN PRN Reason: FEVER Last Admin: 10/14/17 10:39 Dose: 650 mg Apixaban (Eliquis -) 5 mg PO BID [facility] Last Admin: 10/14/17 11:04 Dose: 5 mg Artificial Tears (Artificial Tears Ointment -) 1 applic OU BID [facility] Last Admin: 10/13/17 21:50 Dose: 1 applic Atorvastatin Calcium (Lipitor -) 20 mg PO HS [facility] Last Admin: 10/13/17 21:48 Dose: 20 mg Digoxin (Lanoxin -) 0.125 mg PEG Q2D@1000 [facility] Last Admin: 10/14/17 11:03 Dose: 0.125 mg Diltiazem HCl 60 mg/ Diltiazem (HCl 30 mg) 90 mg NGT Q6HPO [facility] Last Admin: 10/14/17 05:57 Dose: 90 mg Hydralazine HCl (Apresoline Injection -) 10 mg IVPUSH Q6H PRN PRN Reason: HYPERTENSION IV Flush (Picc Line Flush) 8 ml IVPUSH PRN PRN PRN Reason: Protocol Last Admin: 10/10/17 22:13 Dose: 8 ml Fluconazole (Diflucan 200 Mg/D5w Premixed Ivpb -) 100 mls @ 100 mls/hr IVPB DAILY [facility] Last Admin: 10/14/17 11:12 Dose: 100 mls/hr Ceftazidime (Fortaz (Restricted To Id) -) 1 gm in 10 mls @ 120 mls/hr IVPUSH BID [facility] Last Admin: 10/14/17 11:04 Dose: 120 mls/hr Insulin Aspart (Novolog Vial Sliding Scale -) 1 vial SQ Q6H [facility] PRN Reason: Protocol Last Admin: 10/14/17 05:57 Dose: 6 units Insulin Detemir (Levemir Vial) 10 units SQ BID@0700,2200 [facility] Last Admin: 10/14/17 06:07 Dose: 10 units Metoprolol Tartrate (Lopressor Injection -) 5 mg IVPUSH Q4H PRN PRN Reason: HYPERTENSION Last Admin: 10/13/17 06:41 Dose: 5 mg Metoprolol Tartrate (Lopressor -) 50 mg NGT BID [facility] Last Admin: 10/14/17 11:05 Dose: 50 mg Mupirocin (Bactroban 2% Ointment -) 1 applic TP TID [facility] Last Admin: 10/14/17 05:57 Dose: 1 appful Nystatin (Mycostatin Ointment -) 1 applic TP BID [facility] Last Admin: 10/14/17 11:19 Dose: 1 applic Ondansetron HCl (Zofran Injection) 4 mg IVPUSH Q6H PRN PRN Reason: NAUSEA Quetiapine Fumarate (Seroquel -) 25 mg PO [facility] Last Admin: 10/13/17 21:50 Dose: 25 mg Ranitidine HCl (Zantac -) 150 mg PO BID [facility] Last Admin: 10/14/17 11:03 Dose: 150 mg Trazodone HCl (Desyrel -) 50 mg PO [facility] Last Admin: 10/13/17 21:48 Dose: 50 mg A/P Multiple Acute Embolic CVA Acute Hypoxic Respiratory Failure s/p Tracheostomy Aspiration Pneumonia Atrial Fibrillation with RVR Metastatic Colon Ca to Lung Acute on Chronic Renal Failure HTN DM Hypercholesterolemia - antibiotics per ID - titrate rate control - continue anticoagulation - monitor urine output, creatinine - enteral feeds - placed on CPAP 06/12, wean as tolerated - DVT/GI prophylaxis
--- NOTE | 2017-10-14 11:55 | PN ---
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 Mouthing words. Discussed PMV/Swallowing evaluation with Pulmonary. Possibly tomorrow if continues to improve. Selected Entries 10/13/17 10/13/17 10/13/17 02:00 06:00 09:00 Breakfast Temperature 99.6 F 101.7 F H 100.5 F H 10/13/17 10/13/17 10/13/17 14:34 18:00 20:11 Breakfast NPO Temperature 98.0 F 98.2 F 98.5 F 10/14/17 10/14/17 10/14/17 02:00 06:00 08:00 Breakfast Temperature 98.3 F 100.5 F H 100.5 F H Laboratory Tests 10/13/17 11:00 WBC 12.2 H D
[2017-10-14] MEDS ORDERED: INSULIN (NOVOLOG) ASPART 100 UNITS/ML 10ML VIAL ONE (12:17)
--- NOTE | 2017-10-14 14:41 | PN ---
Progress Note, Physician Chief Complaint: arousable daughter bedside fever noted today - Current Medication List Current Medications: Active Medications Acetaminophen (Tylenol Oral Solution -) 650 mg PEG Q6H PRN PRN Reason: FEVER Last Admin: 10/14/17 10:39 Dose: 650 mg Apixaban (Eliquis -) 5 mg PO BID [facility] Last Admin: 10/14/17 11:04 Dose: 5 mg Artificial Tears (Artificial Tears Ointment -) 1 applic OU BID [facility] Last Admin: 10/14/17 10:12 Dose: 1 applic Atorvastatin Calcium (Lipitor -) 20 mg PO HS [facility] Last Admin: 10/13/17 21:48 Dose: 20 mg Digoxin (Lanoxin -) 0.125 mg PEG Q2D@1000 [facility] Last Admin: 10/14/17 11:03 Dose: 0.125 mg Diltiazem HCl 60 mg/ Diltiazem (HCl 30 mg) 90 mg NGT Q6HPO [facility] Last Admin: 10/14/17 12:27 Dose: 90 mg Hydralazine HCl (Apresoline Injection -) 10 mg IVPUSH Q6H PRN PRN Reason: HYPERTENSION IV Flush (Picc Line Flush) 8 ml IVPUSH PRN PRN PRN Reason: Protocol Last Admin: 10/10/17 22:13 Dose: 8 ml Fluconazole (Diflucan 200 Mg/D5w Premixed Ivpb -) 100 mls @ 100 mls/hr IVPB DAILY [facility] Last Admin: 10/14/17 11:12 Dose: 100 mls/hr Ceftazidime (Fortaz (Restricted To Id) -) 1 gm in 10 mls @ 120 mls/hr IVPUSH BID [facility] Last Admin: 10/14/17 11:04 Dose: 120 mls/hr Insulin Aspart (Novolog Vial Sliding Scale -) 1 vial SQ Q6H [facility] PRN Reason: Protocol Last Admin: 10/14/17 12:28 Dose: 6 units Insulin Detemir (Levemir Vial) 10 units SQ BID@0700,2200 [facility] Last Admin: 10/14/17 06:07 Dose: 10 units Metoprolol Tartrate (Lopressor Injection -) 5 mg IVPUSH Q4H PRN PRN Reason: HYPERTENSION Last Admin: 10/13/17 06:41 Dose: 5 mg Metoprolol Tartrate (Lopressor -) 50 mg NGT BID [facility] Last Admin: 10/14/17 11:05 Dose: 50 mg Mupirocin (Bactroban 2% Ointment -) 1 applic TP TID [facility] Last Admin: 10/14/17 14:13 Dose: 1 appful Nystatin (Mycostatin Ointment -) 1 applic TP BID [facility] Last Admin: 10/14/17 11:19 Dose: 1 applic Ondansetron HCl (Zofran Injection) 4 mg IVPUSH Q6H PRN PRN Reason: NAUSEA Quetiapine Fumarate (Seroquel -) 25 mg PO [facility] Last Admin: 10/13/17 21:50 Dose: 25 mg Ranitidine HCl (Zantac -) 150 mg PO BID [facility] Last Admin: 10/14/17 11:03 Dose: 150 mg Trazodone HCl (Desyrel -) 50 mg PO [facility] Last Admin: 10/13/17 21:48 Dose: 50 mg - Objective Vital Signs: Vital Signs Temperature 101.8 F H 10/14/17 10:30 Pulse Rate 95 H 10/14/17 11:03 Respiratory Rate 19 10/14/17 12:11 Blood Pressure 149/73 10/14/17 10:30 O2 Sat by Pulse Oximetry (%) 96 10/14/17 09:09 Constitutional: Yes: Other Eyes: Yes: WNL HENT: Yes: WNL Neck: Yes: WNL Cardiovascular: Yes: Regular Rate and Rhythm Respiratory: Yes: Mechanically Ventilated, Rhonchi Gastrointestinal: Yes: Other (gtube) Genitourinary: Yes: Incontinence Musculoskeletal: Yes: Muscle Weakness Edema: Yes Peripheral Pulses WNL: Yes Integumentary: Yes: Other Wound/Incision: Yes: Dressing Dry and Intact Neurological: Yes: Pre-Existing Deficit, Weakness ...Motor Strength: LLE, RLE Psychiatric: Yes: Other Labs: CBC, BMP 10/13/17 11:00 10/13/17 07:00 INR, PTT INR 0.98 (0.82-1.09) 10/02/17 05:30 Problem List - Problems (1) Brain metastasis Code(s): C79.31 - SECONDARY MALIGNANT NEOPLASM OF BRAIN (2) Headache Code(s): R51 - HEADACHE Qualifiers: Headache chronicity pattern: unspecified pattern Intractability: intractable (3) Intractable vomiting with nausea Code(s): R11.2 - NAUSEA WITH VOMITING, UNSPECIFIED Qualifiers: Vomiting type: unspecified Qualified Code(s): R11.2 - Nausea with vomiting , unspecified (4) SUSAN (acute kidney injury) Code(s): N17.9 - ACUTE KIDNEY FAILURE, UNSPECIFIED (5) Cancer, colon Code(s): C18.9 - MALIGNANT NEOPLASM OF COLON, UNSPECIFIED Qualifiers: Colon location: unspecified part of colon Qualified Code(s): C18.9 - Malignant neoplasm of colon, unspecified (6) Lung mass Code(s): R91.8 - OTHER NONSPECIFIC ABNORMAL FINDING OF LUNG FIELD (7) CVA (cerebral vascular accident) Code(s): I63.9 - CEREBRAL INFARCTION, UNSPECIFIED Qualifiers: Laterality of affected vessel: unspecified (8) Pleural effusion Code(s): J90 - PLEURAL EFFUSION, NOT ELSEWHERE CLASSIFIED (9) Fever Code(s): R50.9 - FEVER, UNSPECIFIED Qualifiers: Fever type: unspecified Qualified Code(s): R50.9 - Fever, unspecified (10) Ventilator dependent Code(s): Z99.11 - DEPENDENCE ON RESPIRATOR [VENTILATOR] STATUS (11) Weakness due to acute cerebrovascular accident (CVA) Code(s): I63.9 - CEREBRAL INFARCTION, UNSPECIFIED; R53.1 - WEAKNESS Assessment/Plan [place] culture as per ID ct chest +effusion b/l lesions to lung vent support bedside pt dc restraints
--- NOTE | 2017-10-14 14:58 | PN ---
Progress Note, Physician History of Present Illness: Pt seen and examined at bedside. She remains mechanically ventilated. - Current Medication List Current Medications: Active Medications Acetaminophen (Tylenol Oral Solution -) 650 mg PEG Q6H PRN PRN Reason: FEVER Last Admin: 10/14/17 10:39 Dose: 650 mg Apixaban (Eliquis -) 5 mg PO BID [facility] Last Admin: 10/14/17 11:04 Dose: 5 mg Artificial Tears (Artificial Tears Ointment -) 1 applic OU BID [facility] Last Admin: 10/14/17 10:12 Dose: 1 applic Atorvastatin Calcium (Lipitor -) 20 mg PO HS [facility] Last Admin: 10/13/17 21:48 Dose: 20 mg Digoxin (Lanoxin -) 0.125 mg PEG Q2D@1000 [facility] Last Admin: 10/14/17 11:03 Dose: 0.125 mg Diltiazem HCl 60 mg/ Diltiazem (HCl 30 mg) 90 mg NGT Q6HPO [facility] Last Admin: 10/14/17 12:27 Dose: 90 mg Hydralazine HCl (Apresoline Injection -) 10 mg IVPUSH Q6H PRN PRN Reason: HYPERTENSION IV Flush (Picc Line Flush) 8 ml IVPUSH PRN PRN PRN Reason: Protocol Last Admin: 10/10/17 22:13 Dose: 8 ml Fluconazole (Diflucan 200 Mg/D5w Premixed Ivpb -) 100 mls @ 100 mls/hr IVPB DAILY [facility] Last Admin: 10/14/17 11:12 Dose: 100 mls/hr Ceftazidime (Fortaz (Restricted To Id) -) 1 gm in 10 mls @ 120 mls/hr IVPUSH BID [facility] Last Admin: 10/14/17 11:04 Dose: 120 mls/hr Insulin Aspart (Novolog Vial Sliding Scale -) 1 vial SQ Q6H [facility] PRN Reason: Protocol Last Admin: 10/14/17 12:28 Dose: 6 units Insulin Detemir (Levemir Vial) 10 units SQ BID@0700,2200 [facility] Last Admin: 10/14/17 06:07 Dose: 10 units Metoprolol Tartrate (Lopressor Injection -) 5 mg IVPUSH Q4H PRN PRN Reason: HYPERTENSION Last Admin: 10/13/17 06:41 Dose: 5 mg Metoprolol Tartrate (Lopressor -) 50 mg NGT BID [facility] Last Admin: 10/14/17 11:05 Dose: 50 mg Mupirocin (Bactroban 2% Ointment -) 1 applic TP TID [facility] Last Admin: 10/14/17 14:13 Dose: 1 appful Nystatin (Mycostatin Ointment -) 1 applic TP BID [facility] Last Admin: 10/14/17 11:19 Dose: 1 applic Ondansetron HCl (Zofran Injection) 4 mg IVPUSH Q6H PRN PRN Reason: NAUSEA Quetiapine Fumarate (Seroquel -) 25 mg PO [facility] Last Admin: 10/13/17 21:50 Dose: 25 mg Ranitidine HCl (Zantac -) 150 mg PO BID [facility] Last Admin: 10/14/17 11:03 Dose: 150 mg Trazodone HCl (Desyrel -) 50 mg PO [facility] Last Admin: 10/13/17 21:48 Dose: 50 mg - Objective Vital Signs: Vital Signs Temperature 101.8 F H 10/14/17 10:30 Pulse Rate 95 H 10/14/17 11:03 Respiratory Rate 19 10/14/17 12:11 Blood Pressure 149/73 10/14/17 10:30 O2 Sat by Pulse Oximetry (%) 96 10/14/17 09:09 Constitutional: Yes: Calm Eyes: Yes: Conjunctiva Clear HENT: Yes: Atraumatic Neck: Yes: Other (trache) Cardiovascular: Yes: S1, S2 Respiratory: Yes: Mechanically Ventilated Gastrointestinal: Yes: Soft, Other (peg) Musculoskeletal: Yes: Muscle Weakness Edema: No Neurological: Yes: Other (awake) Labs: CBC, BMP 10/13/17 11:00 10/13/17 07:00 INR, PTT INR 0.98 (0.82-1.09) 10/02/17 05:30 Problem List - Problems (1) Brain metastasis Code(s): C79.31 - SECONDARY MALIGNANT NEOPLASM OF BRAIN (2) Headache Code(s): R51 - HEADACHE Qualifiers: Headache chronicity pattern: unspecified pattern Intractability: intractable (3) Metastatic colorectal cancer Code(s): C78.5 - SECONDARY MALIGNANT NEOPLASM OF LARGE INTESTINE AND RECTUM (4) SUSAN (acute kidney injury) Code(s): N17.9 - ACUTE KIDNEY FAILURE, UNSPECIFIED (5) Atrial fibrillation Code(s): I48.91 - UNSPECIFIED ATRIAL FIBRILLATION (6) Cancer, colon Code(s): C18.9 - MALIGNANT NEOPLASM OF COLON, UNSPECIFIED Qualifiers: Colon location: unspecified part of colon Qualified Code(s): C18.9 - Malignant neoplasm of colon, unspecified (7) Lung mass Code(s): R91.8 - OTHER NONSPECIFIC ABNORMAL FINDING OF LUNG FIELD Assessment/Plan Current Medications Generic Name Dose Route Start Last Admin Trade Name Freq PRN Reason Stop Dose Admin Acetaminophen 650 mg 10/06/17 20:09 10/14/17 10:39 Tylenol Oral Solution - PEG 650 mg Q6H PRN Administration FEVER Apixaban 5 mg 10/06/17 22:00 10/14/17 11:04 Eliquis - PO 5 mg BID [facility] Administration Artificial Tears 1 applic 10/06/17 22:00 10/14/17 10:12 Artificial Tears Ointment - OU 1 applic BID [facility] Administration Atorvastatin Calcium 20 mg 10/06/17 22:00 10/13/17 21:48 Lipitor - PO 20 mg HS [facility] Administration Digoxin 0.125 mg 10/08/17 10:00 10/14/17 11:03 Lanoxin - PEG 0.125 mg Q2D@1000 [facility] Administration Diltiazem HCl 60 mg/ Diltiazem 90 mg 10/07/17 00:00 10/14/17 12:27 HCl 30 mg NGT 90 mg Q6HPO [facility] Administration Hydralazine HCl 10 mg 10/06/17 20:09 Apresoline Injection - IVPUSH Q6H PRN HYPERTENSION IV Flush 8 ml 10/09/17 11:32 10/10/17 22:13 Picc Line Flush IVPUSH 8 ml PRN PRN Administration Protocol Fluconazole 100 mls @ 100 mls/hr 10/10/17 10:00 10/14/17 11:12 Diflucan 200 Mg/D5w Premixed Ivpb - IVPB 100 mls/hr DAILY [facility] Administration Ceftazidime 1 gm in 10 mls @ 120 mls/hr 10/10/17 14:00 10/14/17 11:04 Fortaz (Restricted To Id) - IVPUSH 120 mls/hr BID [facility] Administration Insulin Aspart 1 vial 10/07/17 00:00 10/14/17 12:28 Novolog Vial Sliding Scale - SQ 6 units Q6H [facility] Administration Protocol Insulin Detemir 10 units 10/06/17 22:00 10/14/17 06:07 Levemir Vial SQ 10 units BID@0700,2200 [facility] Administration Metoprolol Tartrate 5 mg 10/06/17 20:09 10/13/17 06:41 Lopressor Injection - IVPUSH 5 mg Q4H PRN Administration HYPERTENSION Metoprolol Tartrate 50 mg 10/07/17 10:00 10/14/17 11:05 Lopressor - NGT 50 mg BID [facility] Administration Mupirocin 1 applic 10/09/17 14:00 10/14/17 14:13 Bactroban 2% Ointment - TP 1 appful TID [facility] Administration Nystatin 1 applic 10/06/17 22:00 10/14/17 11:19 Mycostatin Ointment - TP 1 applic BID [facility] Administration Ondansetron HCl 4 mg 10/06/17 20:09 Zofran Injection IVPUSH Q6H PRN NAUSEA Quetiapine Fumarate 25 mg 10/06/17 22:00 10/13/17 21:50 Seroquel - PO 25 mg HS [facility] Administration Ranitidine HCl 150 mg 10/06/17 22:00 10/14/17 11:03 Zantac - PO 150 mg BID [facility] Administration Trazodone HCl 50 mg 10/06/17 22:00 10/13/17 21:48 Desyrel - PO 50 mg HS [facility] Administration Impression 1. CKD 2. SUSAN 3. DM 4. htn 5. chol 6. chemo port malfunction 7. a-fib 8. lung mass 9. proteinuria 10. adenocarcinoma 11. CVA 12. acute resp failure 13. hyperkalemia 14. hypernatremia 15. pleural effusions Plan - ct scan reviewed - check bmp in am - will give a small dose of lasix today - renal function stable - pulm rehab - vent support Dr Llanos
--- NOTE | 2017-10-14 15:37 | PN ---
Progress Note (short form) - Note Progress Note: asked to see for fevers s/p trach s/p gt awake and alert continued low grade fevers Vital Signs Period Temp Pulse Resp BP Sys/Mcdaniel Pulse Ox Last 24 Hr 98.2 F-101.8 F 67-95 16-22 142-172/66-75 96-99 trach to vent cor-rrr lungs decreased bs at bases abd soft,nt +GT ext no edema CBC, BMP 10/13/17 11:00 10/13/17 07:00 Microbiology 10/11/17 14:50 Blood - Peripheral Venous Blood Culture - Preliminary NO GROWTH OBTAINED AFTER 72 HOURS, INCUBATION TO CONTINUE FOR 2 DAYS. 10/11/17 14:50 Blood - Peripheral Venous Blood Culture - Preliminary NO GROWTH OBTAINED AFTER 72 HOURS, INCUBATION TO CONTINUE FOR 2 DAYS. 10/11/17 15:30 Sputum - Endotrachea Suction/Ventilator Gram Stain - Final 10/11/17 15:30 Sputum - Endotrachea Suction/Ventilator Sputum Culture - Final Yeast Like Organism 10/09/17 04:15 Blood - Peripheral Venous Blood Culture - Final NO GROWTH AFTER 5 DAYS INCUBATION 10/09/17 04:30 Blood - Peripheral Venous Blood Culture - Final NO GROWTH AFTER 5 DAYS INCUBATION 10/08/17 15:00 Blood - Peripheral Venous Blood Culture - Final NO GROWTH AFTER 5 DAYS INCUBATION 10/12/17 17:30 Stool Clostridium difficile Antigen (DARRIN) - Final 10/12/17 17:30 Stool Clostridium difficile Toxin Assay - Final 10/08/17 13:27 Blood - Peripheral Venous Blood Culture - Final NO GROWTH AFTER 5 DAYS INCUBATION 10/11/17 16:30 Urine - Urine - Catheterized Urine Culture - Final cdiff is negative a/p persistent fevers -no response to antibiotics, will d/c fortaz, continue diflucan chest ct with left effusion- ?empyema- d/w Dr Shelley- would consider diagnostic thoracentesis s/p trach and vent CVA Afib metastatic colon cancer Renal insufficiency diabetes d/w daughter at bedside
[2017-10-14] MEDS ORDERED: FUROSEMIDE 20 MG TABLET (FP) PEG ONE (16:00)
[2017-10-14] MEDS: traZODone HCL 50 MG TABLET (FP) PO SCH (22:04)
[2017-10-14] MEDS: ATORVASTATIN CA 20 MG TABLET (FP) PO SCH (22:04)
[2017-10-14] MEDS: QUEtiapine FUMARATE 25 MG TABLET (FP) PO SCH (22:05)
[2017-10-15] MEDS ORDERED: dilTIAZem HCL 60 MG TABLET (FP) ONE ×4 (04:19→23:05)
[2017-10-15] MEDS ORDERED: dilTIAZem HCL 30 MG TABLET (FP) ONE ×4 (04:19→23:05)
[2017-10-15] MEDS: MUPIROCIN 2% TOPICAL OINTMENT 22 GM TUBE TP SCH ×3 (05:47→22:18)
[2017-10-15] MEDS: DILTIAZEM 60 MG, DILTIAZEM 30 MG NGT SCH ×4 (05:47→23:12)
[2017-10-15] MEDS: INSULIN SLIDING SCALE (NOVOLOG) 1 VIAL SQ SCH ×4 (05:48→23:17)
[2017-10-15] MEDS: INSULIN DETEMIR 100 UNITS/ML MDV SQ SCH ×2 (06:07→22:18)
[2017-10-15] MEDS ORDERED: INSULIN DETEMIR 100 UNITS/ML MDV SQ ONE (08:07)
[2017-10-15 09:39] LABS: HEMATOCRIT 29.7 % (32.4-45.2); HEMOGLOBIN 9.6 GM/dL (10.7-15.3); MCH 27.8 pg (25.7-33.7); MCHC 32.5 g/dl (32.0-36.0); MEAN CELL VOLUME 85.5 fl (80-96); MEAN PLT VOLUME 7.9 fl (7.5-11.1); PLATELET COUNT 418 K/MM3 (134-434); RBC 3.47 M/mm3 (3.60-5.2); RDW 16.8 % (11.6-15.6); WHITE BLOOD COUNT 12.5 K/mm3 (4.0-10.0)
[2017-10-15 10:16] LABS: ANION GAP 9 (8-16); BLOOD UREA NITROGEN 33 mg/dL (7-18); CALCIUM 8.8 mg/dL (8.5-10.1); CHLORIDE 98 mmol/L (98-107); CO2 32 mmol/L (21-32); CREATININE 1.3 mg/dL (0.55-1.02); GLUCOSE,RANDOM 270 mg/dL (74-106); POTASSIUM 3.1 mmol/L (3.5-5.1); SODIUM 139 mmol/L (136-145)
[2017-10-15] MEDS ORDERED: PT OWN MED DRAWER 7, Y5N ONE (11:10)
[2017-10-15] MEDS: APIXABAN 5 MG TABLET PO SCH ×2 (11:17→22:16)
[2017-10-15] MEDS: RANITIDINE HCL 150 MG TABLET (FP) PO SCH ×2 (11:17→22:17)
[2017-10-15] MEDS: METOPROLOL TARTRATE 50 MG TABLET (FP) NGT SCH ×2 (11:17→22:17)
[2017-10-15] MEDS: FLUCONAZOLE 200 MG/D5W 100 ML IVPB SCH (11:17)
[2017-10-15] MEDS: MINERAL OIL/PETROLATUM,WHITE 3.5 GM TUBE OU SCH ×2 (11:19→22:17)
[2017-10-15] MEDS: NYSTATIN 100000 UNIT/GM TOPICAL OINTMENT 15 GM TUBE TP SCH ×2 (11:20→22:18)
--- NOTE | 2017-10-15 11:54 | PN ---
Progress Note, [employer] - Note Progress Note: Pt reported to have tolerated cpap for 6 hours yesterday! Selected Entries 10/14/17 10/14/17 10/14/17 02:00 06:00 08:00 Breakfast Temperature 98.3 F 100.5 F H 100.5 F H 10/14/17 10/14/17 10/14/17 10:30 12:15 18:00 Breakfast Temperature 101.8 F H 99.5 F 97.8 F 10/14/17 10/15/17 10/15/17 21:27 01:22 06:00 Breakfast Temperature 98.4 F 101.3 F H 98.6 F 10/15/17 09:32 Breakfast NPO Temperature Laboratory Tests 10/13/17 10/15/17 10/15/17 11:00 08:00 08:00 WBC 12.2 H D 12.5 H Sodium 139 Suggest pmv to allow pt to communicate verbally and to expedite weaning from ventilator. Swallowing evaluation/mbs
--- NOTE | 2017-10-15 11:58 | PN ---
Progress Note, Physician History of Present Illness: S/P trach and GT metastatic colon CA seen by ID, nephrology and pulmonary - Current Medication List Current Medications: Active Medications Acetaminophen (Tylenol Oral Solution -) 650 mg PEG Q6H PRN PRN Reason: FEVER Last Admin: 10/14/17 23:40 Dose: 650 mg Apixaban (Eliquis -) 5 mg PO BID [facility] Last Admin: 10/15/17 11:17 Dose: 5 mg Artificial Tears (Artificial Tears Ointment -) 1 applic OU BID [facility] Last Admin: 10/15/17 11:19 Dose: 1 applic Atorvastatin Calcium (Lipitor -) 20 mg PO HS [facility] Last Admin: 10/14/17 22:04 Dose: 20 mg Digoxin (Lanoxin -) 0.125 mg PEG Q2D@1000 [facility] Last Admin: 10/14/17 11:03 Dose: 0.125 mg Diltiazem HCl 60 mg/ Diltiazem (HCl 30 mg) 90 mg NGT Q6HPO [facility] Last Admin: 10/15/17 11:17 Dose: 90 mg Hydralazine HCl (Apresoline Injection -) 10 mg IVPUSH Q6H PRN PRN Reason: HYPERTENSION IV Flush (Picc Line Flush) 8 ml IVPUSH PRN PRN PRN Reason: Protocol Last Admin: 10/10/17 22:13 Dose: 8 ml Fluconazole (Diflucan 200 Mg/D5w Premixed Ivpb -) 100 mls @ 100 mls/hr IVPB DAILY [facility] Last Admin: 10/15/17 11:17 Dose: 100 mls/hr Insulin Aspart (Novolog Vial Sliding Scale -) 1 vial SQ Q6H [facility] PRN Reason: Protocol Last Admin: 10/15/17 11:23 Dose: 6 units Insulin Detemir (Levemir Vial) 10 units SQ BID@0700,2200 [facility] Last Admin: 10/15/17 06:07 Dose: 10 units Metoprolol Tartrate (Lopressor Injection -) 5 mg IVPUSH Q4H PRN PRN Reason: HYPERTENSION Last Admin: 10/13/17 06:41 Dose: 5 mg Metoprolol Tartrate (Lopressor -) 50 mg NGT BID [facility] Last Admin: 10/15/17 11:17 Dose: 50 mg Mupirocin (Bactroban 2% Ointment -) 1 applic TP TID [facility] Last Admin: 10/15/17 05:47 Dose: 1 appful Nystatin (Mycostatin Ointment -) 1 applic TP BID [facility] Last Admin: 10/15/17 11:20 Dose: 1 applic Ondansetron HCl (Zofran Injection) 4 mg IVPUSH Q6H PRN PRN Reason: NAUSEA Potassium Chloride (Potassium Chloride Oral Liquid) 40 meq PEG ONCE ONE Stop: 10/15/17 11:42 Quetiapine Fumarate (Seroquel -) 25 mg PO [facility] Last Admin: 10/14/17 22:05 Dose: 25 mg Ranitidine HCl (Zantac -) 150 mg PO BID [facility] Last Admin: 10/15/17 11:17 Dose: 150 mg Trazodone HCl (Desyrel -) 50 mg PO [facility] Last Admin: 10/14/17 22:04 Dose: 50 mg - Objective Vital Signs: Vital Signs Temperature 98.6 F 10/15/17 06:00 Pulse Rate 74 10/15/17 09:45 Respiratory Rate 11 L 10/15/17 09:44 Blood Pressure 151/74 10/15/17 06:00 O2 Sat by Pulse Oximetry (%) 98 10/15/17 09:45 Constitutional: Yes: Well Nourished, No Distress, Calm Cardiovascular: Yes: Regular Rate and Rhythm Respiratory: Yes: Mechanically Ventilated Gastrointestinal: Yes: Normal Bowel Sounds Musculoskeletal: Yes: WNL Extremities: Yes: WNL Edema: No Peripheral Pulses WNL: Yes Labs: CBC, BMP 10/15/17 08:00 10/15/17 08:00 INR, PTT INR 0.98 (0.82-1.09) 10/02/17 05:30 Problem List - Problems (1) Anemia Assessment/Plan: -stabilized -normal transfusion parameters Code(s): D64.9 - ANEMIA, UNSPECIFIED (2) Brain metastasis Code(s): C79.31 - SECONDARY MALIGNANT NEOPLASM OF BRAIN (3) Fever Assessment/Plan: -improved -seen by ID Code(s): R50.9 - FEVER, UNSPECIFIED (4) Metastatic colorectal cancer Assessment/Plan: -PEG Code(s): C78.5 - SECONDARY MALIGNANT NEOPLASM OF LARGE INTESTINE AND RECTUM (5) Respiratory failure Assessment/Plan: s/p tracheotomy -yeast in SC -Diflucan IV -ID and Pulmonary on board Code(s): J96.90 - RESPIRATORY FAILURE, UNSP, UNSP W HYPOXIA OR HYPERCAPNIA (6) Atrial fibrillation Assessment/Plan: -chronic -on eliquis Code(s): I48.91 - UNSPECIFIED ATRIAL FIBRILLATION Assessment/Plan see problem list
--- NOTE | 2017-10-15 12:59 | PN ---
Progress Note, Physician History of Present Illness: Pt seen and examined at bedside. She is awake and appears comfortable. She remain on ventilator. - Current Medication List Current Medications: Active Medications Acetaminophen (Tylenol Oral Solution -) 650 mg PEG Q6H PRN PRN Reason: FEVER Last Admin: 10/14/17 23:40 Dose: 650 mg Apixaban (Eliquis -) 5 mg PO BID [facility] Last Admin: 10/15/17 11:17 Dose: 5 mg Artificial Tears (Artificial Tears Ointment -) 1 applic OU BID [facility] Last Admin: 10/15/17 11:19 Dose: 1 applic Atorvastatin Calcium (Lipitor -) 20 mg PO HS [facility] Last Admin: 10/14/17 22:04 Dose: 20 mg Digoxin (Lanoxin -) 0.125 mg PEG Q2D@1000 [facility] Last Admin: 10/14/17 11:03 Dose: 0.125 mg Diltiazem HCl 60 mg/ Diltiazem (HCl 30 mg) 90 mg NGT Q6HPO [facility] Last Admin: 10/15/17 11:17 Dose: 90 mg Hydralazine HCl (Apresoline Injection -) 10 mg IVPUSH Q6H PRN PRN Reason: HYPERTENSION IV Flush (Picc Line Flush) 8 ml IVPUSH PRN PRN PRN Reason: Protocol Last Admin: 10/10/17 22:13 Dose: 8 ml Fluconazole (Diflucan 200 Mg/D5w Premixed Ivpb -) 100 mls @ 100 mls/hr IVPB DAILY [facility] Last Admin: 10/15/17 11:17 Dose: 100 mls/hr Insulin Aspart (Novolog Vial Sliding Scale -) 1 vial SQ Q6H [facility] PRN Reason: Protocol Last Admin: 10/15/17 11:23 Dose: 6 units Insulin Detemir (Levemir Vial) 10 units SQ BID@0700,2200 [facility] Last Admin: 10/15/17 06:07 Dose: 10 units Metoprolol Tartrate (Lopressor Injection -) 5 mg IVPUSH Q4H PRN PRN Reason: HYPERTENSION Last Admin: 10/13/17 06:41 Dose: 5 mg Metoprolol Tartrate (Lopressor -) 50 mg NGT BID [facility] Last Admin: 10/15/17 11:17 Dose: 50 mg Mupirocin (Bactroban 2% Ointment -) 1 applic TP TID [facility] Last Admin: 10/15/17 05:47 Dose: 1 appful Nystatin (Mycostatin Ointment -) 1 applic TP BID [facility] Last Admin: 10/15/17 11:20 Dose: 1 applic Ondansetron HCl (Zofran Injection) 4 mg IVPUSH Q6H PRN PRN Reason: NAUSEA Potassium Chloride (Potassium Chloride Oral Liquid) 40 meq PEG ONCE ONE Stop: 10/15/17 13:01 Quetiapine Fumarate (Seroquel -) 25 mg PO [facility] Last Admin: 10/14/17 22:05 Dose: 25 mg Ranitidine HCl (Zantac -) 150 mg PO BID [facility] Last Admin: 10/15/17 11:17 Dose: 150 mg Trazodone HCl (Desyrel -) 50 mg PO [facility] Last Admin: 10/14/17 22:04 Dose: 50 mg - Objective Vital Signs: Vital Signs Temperature 99.4 F 10/15/17 10:00 Pulse Rate 79 10/15/17 10:00 Respiratory Rate 12 10/15/17 10:00 Blood Pressure 162/75 10/15/17 10:00 O2 Sat by Pulse Oximetry (%) 98 10/15/17 09:45 Constitutional: Yes: Calm Eyes: Yes: Conjunctiva Clear HENT: Yes: Atraumatic Neck: Yes: Other (trache) Cardiovascular: Yes: S1, S2 Respiratory: Yes: Mechanically Ventilated Gastrointestinal: Yes: Other (peg) Genitourinary: Yes: Incontinence Musculoskeletal: Yes: Muscle Weakness Edema: No Neurological: Yes: Other (awake) Labs: CBC, BMP 10/15/17 08:00 10/15/17 08:00 INR, PTT INR 0.98 (0.82-1.09) 10/02/17 05:30 Problem List - Problems (1) Brain metastasis Code(s): C79.31 - SECONDARY MALIGNANT NEOPLASM OF BRAIN (2) Headache Code(s): R51 - HEADACHE Qualifiers: Headache chronicity pattern: unspecified pattern Intractability: intractable (3) Metastatic colorectal cancer Code(s): C78.5 - SECONDARY MALIGNANT NEOPLASM OF LARGE INTESTINE AND RECTUM (4) SUSAN (acute kidney injury) Code(s): N17.9 - ACUTE KIDNEY FAILURE, UNSPECIFIED (5) Atrial fibrillation Code(s): I48.91 - UNSPECIFIED ATRIAL FIBRILLATION (6) Cancer, colon Code(s): C18.9 - MALIGNANT NEOPLASM OF COLON, UNSPECIFIED Qualifiers: Colon location: unspecified part of colon Qualified Code(s): C18.9 - Malignant neoplasm of colon, unspecified (7) Lung mass Code(s): R91.8 - OTHER NONSPECIFIC ABNORMAL FINDING OF LUNG FIELD Assessment/Plan Current Medications Generic Name Dose Route Start Last Admin Trade Name Freq PRN Reason Stop Dose Admin Acetaminophen 650 mg 10/06/17 20:09 10/14/17 23:40 Tylenol Oral Solution - PEG 650 mg Q6H PRN Administration FEVER Apixaban 5 mg 10/06/17 22:00 10/15/17 11:17 Eliquis - PO 5 mg BID [facility] Administration Artificial Tears 1 applic 10/06/17 22:00 10/15/17 11:19 Artificial Tears Ointment - OU 1 applic BID [facility] Administration Atorvastatin Calcium 20 mg 10/06/17 22:00 10/14/17 22:04 Lipitor - PO 20 mg HS [facility] Administration Digoxin 0.125 mg 10/08/17 10:00 10/14/17 11:03 Lanoxin - PEG 0.125 mg Q2D@1000 [facility] Administration Diltiazem HCl 60 mg/ Diltiazem 90 mg 10/07/17 00:00 10/15/17 11:17 HCl 30 mg NGT 90 mg Q6HPO [facility] Administration Hydralazine HCl 10 mg 10/06/17 20:09 Apresoline Injection - IVPUSH Q6H PRN HYPERTENSION IV Flush 8 ml 10/09/17 11:32 10/10/17 22:13 Picc Line Flush IVPUSH 8 ml PRN PRN Administration Protocol Fluconazole 100 mls @ 100 mls/hr 10/10/17 10:00 10/15/17 11:17 Diflucan 200 Mg/D5w Premixed Ivpb - IVPB 100 mls/hr DAILY [facility] Administration Insulin Aspart 1 vial 10/07/17 00:00 10/15/17 11:23 Novolog Vial Sliding Scale - SQ 6 units Q6H [facility] Administration Protocol Insulin Detemir 10 units 10/06/17 22:00 10/15/17 06:07 Levemir Vial SQ 10 units BID@0700,2200 [facility] Administration Metoprolol Tartrate 5 mg 10/06/17 20:09 10/13/17 06:41 Lopressor Injection - IVPUSH 5 mg Q4H PRN Administration HYPERTENSION Metoprolol Tartrate 50 mg 10/07/17 10:00 10/15/17 11:17 Lopressor - NGT 50 mg BID [facility] Administration Mupirocin 1 applic 10/09/17 14:00 10/15/17 05:47 Bactroban 2% Ointment - TP 1 appful TID [facility] Administration Nystatin 1 applic 10/06/17 22:00 10/15/17 11:20 Mycostatin Ointment - TP 1 applic BID [facility] Administration Ondansetron HCl 4 mg 10/06/17 20:09 Zofran Injection IVPUSH Q6H PRN NAUSEA Potassium Chloride 40 meq 10/15/17 13:00 Potassium Chloride Oral Liquid PEG 10/15/17 13:01 ONCE ONE Quetiapine Fumarate 25 mg 10/06/17 22:00 10/14/17 22:05 Seroquel - PO 25 mg HS [facility] Administration Ranitidine HCl 150 mg 10/06/17 22:00 10/15/17 11:17 Zantac - PO 150 mg BID [facility] Administration Trazodone HCl 50 mg 10/06/17 22:00 10/14/17 22:04 Desyrel - PO 50 mg HS [facility] Administration Impression 1. CKD 2. SUSAN 3. DM 4. htn 5. chol 6. chemo port malfunction 7. a-fib 8. lung mass 9. proteinuria 10. adenocarcinoma 11. CVA 12. acute resp failure 13. hyperkalemia 14. hypernatremia 15. pleural effusions Plan - will hold off lasix today - replace potassium - check mag level - renal function stable - pulm rehab - vent support Dr Llanos
[2017-10-15] MEDS ORDERED: POTASSIUM CHLORIDE ORAL LIQUID 20 MEQ/15 ML PEG ONE (13:00)
[2017-10-15] MEDS: ACETAMINOPHEN 650 MG/20.3 ML ORAL SOLUTION (CUPS) PEG PRN (13:18)
--- NOTE | 2017-10-15 13:59 | PN ---
Progress Note, Physician History of Present Illness: PULMONARY AWAKE ON CPAP ,COMFORTABLE,-RESP DISTRESS - Current Medication List Current Medications: Active Medications Acetaminophen (Tylenol Oral Solution -) 650 mg PEG Q6H PRN PRN Reason: FEVER Last Admin: 10/15/17 13:18 Dose: 650 mg Apixaban (Eliquis -) 5 mg PO BID [facility] Last Admin: 10/15/17 11:17 Dose: 5 mg Artificial Tears (Artificial Tears Ointment -) 1 applic OU BID [facility] Last Admin: 10/15/17 11:19 Dose: 1 applic Atorvastatin Calcium (Lipitor -) 20 mg PO HS [facility] Last Admin: 10/14/17 22:04 Dose: 20 mg Digoxin (Lanoxin -) 0.125 mg PEG Q2D@1000 [facility] Last Admin: 10/14/17 11:03 Dose: 0.125 mg Diltiazem HCl 60 mg/ Diltiazem (HCl 30 mg) 90 mg NGT Q6HPO [facility] Last Admin: 10/15/17 11:17 Dose: 90 mg Hydralazine HCl (Apresoline Injection -) 10 mg IVPUSH Q6H PRN PRN Reason: HYPERTENSION IV Flush (Picc Line Flush) 8 ml IVPUSH PRN PRN PRN Reason: Protocol Last Admin: 10/10/17 22:13 Dose: 8 ml Fluconazole (Diflucan 200 Mg/D5w Premixed Ivpb -) 100 mls @ 100 mls/hr IVPB DAILY [facility] Last Admin: 10/15/17 11:17 Dose: 100 mls/hr Insulin Aspart (Novolog Vial Sliding Scale -) 1 vial SQ Q6H [facility] PRN Reason: Protocol Last Admin: 10/15/17 11:23 Dose: 6 units Insulin Detemir (Levemir Vial) 10 units SQ BID@0700,2200 [facility] Last Admin: 10/15/17 06:07 Dose: 10 units Metoprolol Tartrate (Lopressor Injection -) 5 mg IVPUSH Q4H PRN PRN Reason: HYPERTENSION Last Admin: 10/13/17 06:41 Dose: 5 mg Metoprolol Tartrate (Lopressor -) 50 mg NGT BID [facility] Last Admin: 10/15/17 11:17 Dose: 50 mg Mupirocin (Bactroban 2% Ointment -) 1 applic TP TID [facility] Last Admin: 10/15/17 13:15 Dose: 1 appful Nystatin (Mycostatin Ointment -) 1 applic TP BID [facility] Last Admin: 10/15/17 11:20 Dose: 1 applic Ondansetron HCl (Zofran Injection) 4 mg IVPUSH Q6H PRN PRN Reason: NAUSEA Quetiapine Fumarate (Seroquel -) 25 mg PO [facility] Last Admin: 10/14/17 22:05 Dose: 25 mg Ranitidine HCl (Zantac -) 150 mg PO BID [facility] Last Admin: 10/15/17 11:17 Dose: 150 mg Trazodone HCl (Desyrel -) 50 mg PO [facility] Last Admin: 10/14/17 22:04 Dose: 50 mg - Objective Vital Signs: Vital Signs Temperature 99.4 F 10/15/17 10:00 Pulse Rate 79 10/15/17 10:00 Respiratory Rate 12 10/15/17 10:00 Blood Pressure 162/75 10/15/17 10:00 O2 Sat by Pulse Oximetry (%) 98 10/15/17 09:45 Constitutional: Yes: Well Nourished, Calm Eyes: Yes: WNL HENT: Yes: WNL Neck: Yes: Supple (TRACH) Cardiovascular: Yes: Pulse Irregular, S1, S2 Respiratory: Yes: Rhonchi (SCATTERED RHONCHI) Gastrointestinal: Yes: Normal Bowel Sounds, Soft Extremities: Yes: WNL Edema: No Labs: CBC, BMP 10/15/17 08:00 10/15/17 08:00 INR, PTT INR 0.98 (0.82-1.09) 10/02/17 05:30 - ....Imaging Chest X-ray: Report Reviewed, Image Reviewed Problem List - Problems (1) Anemia Code(s): D64.9 - ANEMIA, UNSPECIFIED (2) Brain metastasis Code(s): C79.31 - SECONDARY MALIGNANT NEOPLASM OF BRAIN (3) CVA (cerebral vascular accident) Code(s): I63.9 - CEREBRAL INFARCTION, UNSPECIFIED Qualifiers: Laterality of affected vessel: unspecified (4) Metastatic colorectal cancer Code(s): C78.5 - SECONDARY MALIGNANT NEOPLASM OF LARGE INTESTINE AND RECTUM (5) Respiratory failure Code(s): J96.90 - RESPIRATORY FAILURE, UNSP, UNSP W HYPOXIA OR HYPERCAPNIA (6) Atrial fibrillation Code(s): I48.91 - UNSPECIFIED ATRIAL FIBRILLATION (7) HTN (hypertension) Code(s): I10 - ESSENTIAL (PRIMARY) HYPERTENSION (8) Lung mass Code(s): R91.8 - OTHER NONSPECIFIC ABNORMAL FINDING OF LUNG FIELD Assessment/Plan ASSESSMENT AND PLAN: Multiple Acute Embolic CVA Acute Hypoxic Respiratory Failure s/p Tracheostomy Aspiration Pneumonia Atrial Fibrillation with RVR Metastatic Colon Ca to Lung Acute on Chronic Renal Failure HTN DM Hypercholesterolemia - anticoagulation - monitor urine output, creatinine - enteral feeds - spontaneous breathing trials as tolerated - DVT/GI prophylaxis - cultures - possible thoracentesis to evaluate left pleural effusion DR LEONE
--- NOTE | 2017-10-15 16:37 | PN ---
Progress Note (short form) - Note Progress Note: s/p trach s/p gt awake and alert fevers improved Vital Signs Period Temp Pulse Resp BP Sys/Mcdaniel Pulse Ox Last 24 Hr 97.8 F-101.3 F 69-88 11-20 135-162/64-75 98-99 cor-rrr lungs decreased bs at bases abd soft,nt +GT ext no edema CBC, BMP 10/15/17 08:00 10/15/17 08:00 Microbiology 10/11/17 14:50 Blood - Peripheral Venous Blood Culture - Preliminary NO GROWTH OBTAINED AFTER 96 HOURS, INCUBATION TO CONTINUE FOR 1 DAYS. 10/11/17 14:50 Blood - Peripheral Venous Blood Culture - Preliminary NO GROWTH OBTAINED AFTER 96 HOURS, INCUBATION TO CONTINUE FOR 1 DAYS. 10/11/17 15:30 Sputum - Endotrachea Suction/Ventilator Gram Stain - Final 10/11/17 15:30 Sputum - Endotrachea Suction/Ventilator Sputum Culture - Final Yeast Like Organism cdiff is negative a/p persistent fevers -off antibiotics, reculture for recurrent fevers chest ct with left effusion- ?empyema- d/w Dr Shelley and Dr Bucio- would consider diagnostic thoracentesis s/p trach and vent CVA Afib metastatic colon cancer Renal insufficiency diabetes d/w daughter at bedside
[2017-10-15] MEDS: QUEtiapine FUMARATE 25 MG TABLET (FP) PO SCH (22:16)
[2017-10-15] MEDS: ATORVASTATIN CA 20 MG TABLET (FP) PO SCH (22:17)
[2017-10-15] MEDS: traZODone HCL 50 MG TABLET (FP) PO SCH (22:17)
[2017-10-16] MEDS ORDERED: dilTIAZem HCL 30 MG TABLET (FP) ONE ×3 (05:17→18:53)
[2017-10-16] MEDS ORDERED: dilTIAZem HCL 60 MG TABLET (FP) ONE ×3 (05:18→18:54)
[2017-10-16] MEDS: DILTIAZEM 60 MG, DILTIAZEM 30 MG NGT SCH ×3 (05:26→18:55)
[2017-10-16] MEDS: ACETAMINOPHEN 650 MG/20.3 ML ORAL SOLUTION (CUPS) PEG PRN ×2 (05:26→13:37)
[2017-10-16] MEDS: MUPIROCIN 2% TOPICAL OINTMENT 22 GM TUBE TP SCH ×3 (05:34→22:15)
[2017-10-16] MEDS: INSULIN SLIDING SCALE (NOVOLOG) 1 VIAL SQ SCH ×3 (06:29→18:58)
[2017-10-16] MEDS: INSULIN DETEMIR 100 UNITS/ML MDV SQ SCH ×2 (06:30→22:15)
[2017-10-16 08:44] LABS: CHLORIDE 99 mmol/L (98-107); POTASSIUM 3.7 mmol/L (3.5-5.1); SODIUM 138 mmol/L (136-145)
[2017-10-16 08:56] LABS: ANION GAP 8 (8-16); BLOOD UREA NITROGEN 30 mg/dL (7-18); CALCIUM 8.1 mg/dL (8.5-10.1); CO2 31 mmol/L (21-32); CREATININE 1.2 mg/dL (0.55-1.02); MAGNESIUM 1.7 mg/dL (1.8-2.4)
[2017-10-16 09:02] LABS: GLUCOSE,RANDOM 341 mg/dL (74-106)
[2017-10-16] MEDS: FLUCONAZOLE 200 MG/D5W 100 ML IVPB SCH (11:35)
[2017-10-16] MEDS: DIGOXIN 0.125 MG TABLET (FP) PEG SCH (11:38)
[2017-10-16] MEDS: METOPROLOL TARTRATE 50 MG TABLET (FP) NGT SCH ×2 (11:38→22:14)
[2017-10-16] MEDS: APIXABAN 5 MG TABLET PO SCH (11:39)
[2017-10-16] MEDS: RANITIDINE HCL 150 MG TABLET (FP) PO SCH ×2 (11:39→22:16)
--- NOTE | 2017-10-16 11:46 | PN ---
Progress Note (short form) - Note Progress Note: Thoracic Progress Note Still with fevers, ?BRAZER [employer] vs. empyema (may get thoracentesis) vs. drug vs. other CPAP yesterday Discussed with Speech/Swallow, will try PMV Eventually swallow test when more clear etiology of fevers? Will continue to follow.
[2017-10-16] MEDS: NYSTATIN 100000 UNIT/GM TOPICAL OINTMENT 15 GM TUBE TP SCH ×2 (11:47→22:15)
--- NOTE | 2017-10-16 12:21 | PN ---
Progress Note (short form) - Note Progress Note: PULMONARY Tolerating CPAP/PS trials. Still with persistent intermittent fevers. Last Vital Signs Temp Pulse Resp BP Pulse Ox 102.8 F H 85 24 165/77 98 10/16/17 06:00 10/16/17 11:38 10/16/17 09:23 10/16/17 06:00 10/16/17 09:23 Gen: vented, awake Heart: RRR Lung: decreased breath sounds at the bases Abd: soft, nontender Ext: + edema CBC, BMP 10/15/17 08:00 10/16/17 05:45 Active Medications Acetaminophen (Tylenol Oral Solution -) 650 mg PEG Q6H PRN PRN Reason: FEVER Last Admin: 10/16/17 05:26 Dose: 650 mg Apixaban (Eliquis -) 5 mg PO BID [facility] Last Admin: 10/16/17 11:39 Dose: 5 mg Artificial Tears (Artificial Tears Ointment -) 1 applic OU BID [facility] Last Admin: 10/15/17 22:17 Dose: 1 applic Atorvastatin Calcium (Lipitor -) 20 mg PO HS [facility] Last Admin: 10/15/17 22:17 Dose: 20 mg Digoxin (Lanoxin -) 0.125 mg PEG Q2D@1000 [facility] Last Admin: 10/16/17 11:38 Dose: 0.125 mg Diltiazem HCl 60 mg/ Diltiazem (HCl 30 mg) 90 mg NGT Q6HPO [facility] Last Admin: 10/16/17 11:37 Dose: 90 mg Hydralazine HCl (Apresoline Injection -) 10 mg IVPUSH Q6H PRN PRN Reason: HYPERTENSION IV Flush (Picc Line Flush) 8 ml IVPUSH PRN PRN PRN Reason: Protocol Last Admin: 10/10/17 22:13 Dose: 8 ml Fluconazole (Diflucan 200 Mg/D5w Premixed Ivpb -) 100 mls @ 100 mls/hr IVPB DAILY [facility] Last Admin: 10/16/17 11:35 Dose: 100 mls/hr Insulin Aspart (Novolog Vial Sliding Scale -) 1 vial SQ Q6H [facility] PRN Reason: Protocol Last Admin: 10/16/17 06:29 Dose: 10 units Insulin Detemir (Levemir Vial) 10 units SQ BID@0700,2200 [facility] Last Admin: 10/16/17 06:30 Dose: 10 units Metoprolol Tartrate (Lopressor Injection -) 5 mg IVPUSH Q4H PRN PRN Reason: HYPERTENSION Last Admin: 10/13/17 06:41 Dose: 5 mg Metoprolol Tartrate (Lopressor -) 50 mg NGT BID [facility] Last Admin: 10/16/17 11:38 Dose: 50 mg Mupirocin (Bactroban 2% Ointment -) 1 applic TP TID [facility] Last Admin: 10/16/17 05:34 Dose: 1 appful Nystatin (Mycostatin Ointment -) 1 applic TP BID [facility] Last Admin: 10/16/17 11:47 Dose: 1 applic Ondansetron HCl (Zofran Injection) 4 mg IVPUSH Q6H PRN PRN Reason: NAUSEA Quetiapine Fumarate (Seroquel -) 25 mg PO HS [facility] Last Admin: 10/15/17 22:16 Dose: 25 mg Ranitidine HCl (Zantac -) 150 mg PO BID [facility] Last Admin: 10/16/17 11:39 Dose: 150 mg Trazodone HCl (Desyrel -) 50 mg PO HS [facility] Last Admin: 10/15/17 22:17 Dose: 50 mg A/P Multiple Acute Embolic CVA Acute Hypoxic Respiratory Failure s/p Tracheostomy Aspiration Pneumonia Atrial Fibrillation with RVR Metastatic Colon Ca to Lung Acute on Chronic Renal Failure HTN DM Hypercholesterolemia - antibiotics per ID - effusion on imaging does not overtly appear infected but would sample pleural fluid due to persistent fevers - hold eliquis, will place on lovenox for now - titrate rate control - monitor urine output, creatinine - enteral feeds - CPAP/PS as tolerated - DVT/GI prophylaxis
[2017-10-16] MEDS ORDERED: MAGNESIUM SULF 50% (8.12 MEQ/2 ML-1 GM VIAL) IVPB ONE (13:23)
--- NOTE | 2017-10-16 13:30 | PN ---
Progress Note, Physician Chief Complaint: still spiking temp off eliquis on lovenox for posible thoracocentesis - Current Medication List Current Medications: Active Medications Acetaminophen (Tylenol Oral Solution -) 650 mg PEG Q6H PRN PRN Reason: FEVER Last Admin: 10/16/17 05:26 Dose: 650 mg Artificial Tears (Artificial Tears Ointment -) 1 applic OU BID [facility] Last Admin: 10/15/17 22:17 Dose: 1 applic Atorvastatin Calcium (Lipitor -) 20 mg PO HS [facility] Last Admin: 10/15/17 22:17 Dose: 20 mg Digoxin (Lanoxin -) 0.125 mg PEG Q2D@1000 [facility] Last Admin: 10/16/17 11:38 Dose: 0.125 mg Diltiazem HCl 60 mg/ Diltiazem (HCl 30 mg) 90 mg NGT Q6HPO [facility] Last Admin: 10/16/17 11:37 Dose: 90 mg Enoxaparin Sodium (Lovenox -) 80 mg SQ BID [facility] Hydralazine HCl (Apresoline Injection -) 10 mg IVPUSH Q6H PRN PRN Reason: HYPERTENSION IV Flush (Picc Line Flush) 8 ml IVPUSH PRN PRN PRN Reason: Protocol Last Admin: 10/10/17 22:13 Dose: 8 ml Fluconazole (Diflucan 200 Mg/D5w Premixed Ivpb -) 100 mls @ 100 mls/hr IVPB DAILY [facility] Last Admin: 10/16/17 11:35 Dose: 100 mls/hr Insulin Aspart (Novolog Vial Sliding Scale -) 1 vial SQ Q6H [facility] PRN Reason: Protocol Last Admin: 10/16/17 06:29 Dose: 10 units Insulin Detemir (Levemir Vial) 10 units SQ BID@0700,2200 [facility] Last Admin: 10/16/17 06:30 Dose: 10 units Magnesium Sulfate (Magnesium Sulfate) 1 gm IVPB ONCE ONE Stop: 10/16/17 13:24 Metoprolol Tartrate (Lopressor Injection -) 5 mg IVPUSH Q4H PRN PRN Reason: HYPERTENSION Last Admin: 10/13/17 06:41 Dose: 5 mg Metoprolol Tartrate (Lopressor -) 50 mg NGT BID [facility] Last Admin: 10/16/17 11:38 Dose: 50 mg Mupirocin (Bactroban 2% Ointment -) 1 applic TP TID [facility] Last Admin: 10/16/17 05:34 Dose: 1 appful Nystatin (Mycostatin Ointment -) 1 applic TP BID [facility] Last Admin: 10/16/17 11:47 Dose: 1 applic Ondansetron HCl (Zofran Injection) 4 mg IVPUSH Q6H PRN PRN Reason: NAUSEA Quetiapine Fumarate (Seroquel -) 25 mg PO [facility] Last Admin: 10/15/17 22:16 Dose: 25 mg Ranitidine HCl (Zantac -) 150 mg PO BID [facility] Last Admin: 10/16/17 11:39 Dose: 150 mg Trazodone HCl (Desyrel -) 50 mg PO [facility] Last Admin: 10/15/17 22:17 Dose: 50 mg - Objective Vital Signs: Vital Signs Temperature 102.8 F H 10/16/17 06:00 Pulse Rate 85 10/16/17 11:38 Respiratory Rate 24 10/16/17 09:23 Blood Pressure 165/77 10/16/17 06:00 O2 Sat by Pulse Oximetry (%) 98 10/16/17 09:23 Constitutional: Yes: Calm Cardiovascular: Yes: Tachycardia, S1, S2 Respiratory: Yes: Mechanically Ventilated, Rhonchi Gastrointestinal: Yes: Soft, Other (peg) Edema: Yes Labs: CBC, BMP 10/15/17 08:00 10/16/17 05:45 INR, PTT INR 0.98 (0.82-1.09) 10/02/17 05:30 Problem List - Problems (1) Hypomagnesemia Assessment/Plan: iv magnesium recheck in AM Code(s): E83.42 - HYPOMAGNESEMIA (2) Fever Assessment/Plan: off abx for now cultures pending possible thoracocentesis Code(s): R50.9 - FEVER, UNSPECIFIED (3) UTI (urinary tract infection) Assessment/Plan: Microbiology 10/09/17 04:30 Urine - Urine - Catheterized Urine Culture - Final Pseudomonas Aeruginosa ceftazidime- course done Code(s): N39.0 - URINARY TRACT INFECTION, SITE NOT SPECIFIED (4) Sheeba infection Assessment/Plan: diflucan 200mg daily topical antifungal cream to groin Code(s): B37.9 - CANDIDIASIS, UNSPECIFIED (5) Respiratory failure Assessment/Plan: s/p tracheostomy vent support bactroban to trach site Code(s): J96.90 - RESPIRATORY FAILURE, UNSP, UNSP W HYPOXIA OR HYPERCAPNIA (6) Pneumonia Assessment/Plan: iv zosyn s/p 8 day course abx stopped Code(s): J18.9 - PNEUMONIA, UNSPECIFIED ORGANISM (7) Atrial fibrillation Assessment/Plan: digoxin,cardizem and metoprolol eliquis stopped on lovenox Code(s): I48.91 - UNSPECIFIED ATRIAL FIBRILLATION (8) Anemia Assessment/Plan: ppi GI follow up noted Code(s): D64.9 - ANEMIA, UNSPECIFIED (9) Diabetes Assessment/Plan: insulin bgm ok for now Code(s): E11.9 - TYPE 2 DIABETES MELLITUS WITHOUT COMPLICATIONS Qualifiers: Diabetes mellitus type: type 2 (10) CVA (cerebral vascular accident) Assessment/Plan: S/p multiple acute embolic infarcts - s/p trach on vent s/p peg now needs snf placement Code(s): I63.9 - CEREBRAL INFARCTION, UNSPECIFIED Qualifiers: Laterality of affected vessel: unspecified Assessment/Plan cultures pending off abx spiking temp:possible thoracocentesis- plerual effusion noted on chest CT has h/o metastic lung cancer r/- empyema ? source of fever on lovenox eliquis stopped
[2017-10-16] MEDS: MINERAL OIL/PETROLATUM,WHITE 3.5 GM TUBE OU SCH ×2 (13:40→22:14)
--- NOTE | 2017-10-16 14:19 | PN ---
Progress Note, Physician History of Present Illness: Off antibiotics Remains febrile No acute distress Repeat BC ordered For diagnostic thoracentesis - Current Medication List Current Medications: Active Medications Acetaminophen (Tylenol Oral Solution -) 650 mg PEG Q6H PRN PRN Reason: FEVER Last Admin: 10/16/17 13:37 Dose: 650 mg Artificial Tears (Artificial Tears Ointment -) 1 applic OU BID COUNTS [facility] 234 BEDS AT [facility] Last Admin: 10/16/17 13:40 Dose: 1 applic Atorvastatin Calcium (Lipitor -) 20 mg PO HS COUNTS INCLUDE 234 BEDS AT [facility] Last Admin: 10/15/17 22:17 Dose: 20 mg Digoxin (Lanoxin -) 0.125 mg PEG Q2D@1000 COUNTS INCLUDE 234 BEDS AT [facility] Last Admin: 10/16/17 11:38 Dose: 0.125 mg Diltiazem HCl 60 mg/ Diltiazem (HCl 30 mg) 90 mg NGT Q6HPO COUNTS INCLUDE 234 BEDS AT [facility] Last Admin: 10/16/17 11:37 Dose: 90 mg Enoxaparin Sodium (Lovenox -) 80 mg SQ BID COUNTS INCLUDE 234 BEDS AT [facility] Hydralazine HCl (Apresoline Injection -) 10 mg IVPUSH Q6H PRN PRN Reason: HYPERTENSION IV Flush (Picc Line Flush) 8 ml IVPUSH PRN PRN PRN Reason: Protocol Last Admin: 10/10/17 22:13 Dose: 8 ml Fluconazole (Diflucan 200 Mg/D5w Premixed Ivpb -) 100 mls @ 100 mls/hr IVPB DAILY COUNTS [facility]CLUDE 234 BEDS AT [facility] Last Admin: 10/16/17 11:35 Dose: 100 mls/hr Insulin Aspart (Novolog Vial Sliding Scale -) 1 vial SQ Q6H COUNTS INCLUDE 234 BEDS AT [facility] PRN Reason: Protocol Last Admin: 10/16/17 13:40 Dose: 6 units Insulin Detemir (Levemir Vial) 10 units SQ BID@0700,2200 COUNTS [facility]CLUDE 234 BEDS AT [facility] Last Admin: 10/16/17 06:30 Dose: 10 units Magnesium Sulfate (Magnesium Sulfate) 1 gm IVPB ONCE ONE Stop: 10/16/17 13:24 Metoprolol Tartrate (Lopressor Injection -) 5 mg IVPUSH Q4H PRN PRN Reason: HYPERTENSION Last Admin: 10/13/17 06:41 Dose: 5 mg Metoprolol Tartrate (Lopressor -) 50 mg NGT BID COUNTS [facility]CLUDE 234 BEDS AT [facility] Last Admin: 10/16/17 11:38 Dose: 50 mg Mupirocin (Bactroban 2% Ointment -) 1 applic TP TID COUNTS [facility]CLUDE 234 BEDS AT [facility] Last Admin: 10/16/17 05:34 Dose: 1 appful Nystatin (Mycostatin Ointment -) 1 applic TP BID COUNTS [facility]CLUDE 234 BEDS AT [facility] Last Admin: 10/16/17 11:47 Dose: 1 applic Ondansetron HCl (Zofran Injection) 4 mg IVPUSH Q6H PRN PRN Reason: NAUSEA Quetiapine Fumarate (Seroquel -) 25 mg PO [facility] Last Admin: 10/15/17 22:16 Dose: 25 mg Ranitidine HCl (Zantac -) 150 mg PO BID COUNTS [facility]CLUDE 234 BEDS AT [facility] Last Admin: 10/16/17 11:39 Dose: 150 mg Trazodone HCl (Desyrel -) 50 mg PO [facility] Last Admin: 10/15/17 22:17 Dose: 50 mg - Objective Vital Signs: Vital Signs Temperature 102.8 F H 10/16/17 06:00 Pulse Rate 101 H 10/16/17 14:00 Respiratory Rate 21 10/16/17 14:08 Blood Pressure 156/81 10/16/17 14:00 O2 Sat by Pulse Oximetry (%) 95 10/16/17 14:00 Constitutional: Yes: No Distress Eyes: Yes: Conjunctiva Clear Cardiovascular: Yes: Regular Rate and Rhythm, S1, S2 Respiratory: Yes: Diminished Gastrointestinal: Yes: Normal Bowel Sounds, Soft. No: Tenderness Labs: CBC, BMP 10/15/17 08:00 10/16/17 05:45 INR, PTT INR 0.98 (0.82-1.09) 10/02/17 05:30 Assessment/Plan Fevers Respiratory failure Metastatic ca Leukocytosis Azotemia Off antibiotics Await repeat cultures Thoracentesis
[2017-10-16] MEDS ORDERED: MAGNESIUM 1GM/D5W - 1 GM/100 ML IVPB IVPB ONE (14:45)
--- NOTE | 2017-10-16 17:00 | PN ---
Progress Note, Physician History of Present Illness: Pt seen and examined at bedside. She is awake. She had a fever. - Current Medication List Current Medications: Active Medications Acetaminophen (Tylenol Oral Solution -) 650 mg PEG Q6H PRN PRN Reason: FEVER Last Admin: 10/16/17 13:37 Dose: 650 mg Artificial Tears (Artificial Tears Ointment -) 1 applic OU BID [facility] Last Admin: 10/16/17 13:40 Dose: 1 applic Atorvastatin Calcium (Lipitor -) 20 mg PO HS [facility] Last Admin: 10/15/17 22:17 Dose: 20 mg Digoxin (Lanoxin -) 0.125 mg PEG Q2D@1000 [facility] Last Admin: 10/16/17 11:38 Dose: 0.125 mg Diltiazem HCl 60 mg/ Diltiazem (HCl 30 mg) 90 mg NGT Q6HPO [facility] Last Admin: 10/16/17 11:37 Dose: 90 mg Enoxaparin Sodium (Lovenox -) 80 mg SQ BID [facility] Hydralazine HCl (Apresoline Injection -) 10 mg IVPUSH Q6H PRN PRN Reason: HYPERTENSION IV Flush (Picc Line Flush) 8 ml IVPUSH PRN PRN PRN Reason: Protocol Last Admin: 10/10/17 22:13 Dose: 8 ml Fluconazole (Diflucan 200 Mg/D5w Premixed Ivpb -) 100 mls @ 100 mls/hr IVPB DAILY [facility] Last Admin: 10/16/17 11:35 Dose: 100 mls/hr Insulin Aspart (Novolog Vial Sliding Scale -) 1 vial SQ Q6H [facility] PRN Reason: Protocol Last Admin: 10/16/17 13:40 Dose: 6 units Insulin Detemir (Levemir Vial) 10 units SQ BID@0700,2200 [facility] Last Admin: 10/16/17 06:30 Dose: 10 units Metoprolol Tartrate (Lopressor Injection -) 5 mg IVPUSH Q4H PRN PRN Reason: HYPERTENSION Last Admin: 10/13/17 06:41 Dose: 5 mg Metoprolol Tartrate (Lopressor -) 50 mg NGT BID [facility] Last Admin: 10/16/17 11:38 Dose: 50 mg Mupirocin (Bactroban 2% Ointment -) 1 applic TP TID [facility] Last Admin: 10/16/17 05:34 Dose: 1 appful Nystatin (Mycostatin Ointment -) 1 applic TP BID [facility] Last Admin: 10/16/17 11:47 Dose: 1 applic Ondansetron HCl (Zofran Injection) 4 mg IVPUSH Q6H PRN PRN Reason: NAUSEA Quetiapine Fumarate (Seroquel -) 25 mg PO [facility] Last Admin: 10/15/17 22:16 Dose: 25 mg Ranitidine HCl (Zantac -) 150 mg PO BID [facility] Last Admin: 10/16/17 11:39 Dose: 150 mg Trazodone HCl (Desyrel -) 50 mg PO [facility] Last Admin: 10/15/17 22:17 Dose: 50 mg - Objective Vital Signs: Vital Signs Temperature 102.8 F H 10/16/17 06:00 Pulse Rate 101 H 10/16/17 14:00 Respiratory Rate 22 10/16/17 16:07 Blood Pressure 156/81 10/16/17 14:00 O2 Sat by Pulse Oximetry (%) 95 10/16/17 14:00 Constitutional: Yes: Calm Neck: Yes: Other (trache) Cardiovascular: Yes: S1, S2 Respiratory: Yes: Mechanically Ventilated Gastrointestinal: Yes: Soft, Abdomen, Obese, Other (peg) Genitourinary: Yes: Incontinence Musculoskeletal: Yes: Muscle Weakness Edema: No Neurological: Yes: Other (awake) Labs: CBC, BMP 10/15/17 08:00 10/16/17 05:45 INR, PTT INR 0.98 (0.82-1.09) 10/02/17 05:30 Problem List - Problems (1) Brain metastasis Code(s): C79.31 - SECONDARY MALIGNANT NEOPLASM OF BRAIN (2) Headache Code(s): R51 - HEADACHE Qualifiers: Headache chronicity pattern: unspecified pattern Intractability: intractable (3) Metastatic colorectal cancer Code(s): C78.5 - SECONDARY MALIGNANT NEOPLASM OF LARGE INTESTINE AND RECTUM (4) SUSAN (acute kidney injury) Code(s): N17.9 - ACUTE KIDNEY FAILURE, UNSPECIFIED (5) Atrial fibrillation Code(s): I48.91 - UNSPECIFIED ATRIAL FIBRILLATION (6) Cancer, colon Code(s): C18.9 - MALIGNANT NEOPLASM OF COLON, UNSPECIFIED Qualifiers: Colon location: unspecified part of colon Qualified Code(s): C18.9 - Malignant neoplasm of colon, unspecified (7) Lung mass Code(s): R91.8 - OTHER NONSPECIFIC ABNORMAL FINDING OF LUNG FIELD Assessment/Plan Current Medications Generic Name Dose Route Start Last Admin Trade Name Freq PRN Reason Stop Dose Admin Acetaminophen 650 mg 10/06/17 20:09 10/16/17 13:37 Tylenol Oral Solution - PEG 650 mg Q6H PRN Administration FEVER Artificial Tears 1 applic 10/06/17 22:00 10/16/17 13:40 Artificial Tears Ointment - OU 1 applic BID [facility] Administration Atorvastatin Calcium 20 mg 10/06/17 22:00 10/15/17 22:17 Lipitor - PO 20 mg HS [facility] Administration Digoxin 0.125 mg 10/08/17 10:00 10/16/17 11:38 Lanoxin - PEG 0.125 mg Q2D@1000 [facility] Administration Diltiazem HCl 60 mg/ Diltiazem 90 mg 10/07/17 00:00 10/16/17 11:37 HCl 30 mg NGT 90 mg Q6HPO [facility] Administration Enoxaparin Sodium 80 mg 10/17/17 10:00 Lovenox - SQ BID [facility] Hydralazine HCl 10 mg 10/06/17 20:09 Apresoline Injection - IVPUSH Q6H PRN HYPERTENSION IV Flush 8 ml 10/09/17 11:32 10/10/17 22:13 Picc Line Flush IVPUSH 8 ml PRN PRN Administration Protocol Fluconazole 100 mls @ 100 mls/hr 10/10/17 10:00 10/16/17 11:35 Diflucan 200 Mg/D5w Premixed Ivpb - IVPB 100 mls/hr DAILY [facility] Administration Insulin Aspart 1 vial 10/07/17 00:00 10/16/17 13:40 Novolog Vial Sliding Scale - SQ 6 units Q6H [facility] Administration Protocol Insulin Detemir 10 units 10/06/17 22:00 10/16/17 06:30 Levemir Vial SQ 10 units BID@0700,2200 [facility] Administration Metoprolol Tartrate 5 mg 10/06/17 20:09 10/13/17 06:41 Lopressor Injection - IVPUSH 5 mg Q4H PRN Administration HYPERTENSION Metoprolol Tartrate 50 mg 10/07/17 10:00 10/16/17 11:38 Lopressor - NGT 50 mg BID [facility] Administration Mupirocin 1 applic 10/09/17 14:00 10/16/17 05:34 Bactroban 2% Ointment - TP 1 appful TID [facility] Administration Nystatin 1 applic 10/06/17 22:00 10/16/17 11:47 Mycostatin Ointment - TP 1 applic BID [facility] Administration Ondansetron HCl 4 mg 10/06/17 20:09 Zofran Injection IVPUSH Q6H PRN NAUSEA Quetiapine Fumarate 25 mg 10/06/17 22:00 10/15/17 22:16 Seroquel - PO 25 mg HS [facility] Administration Ranitidine HCl 150 mg 10/06/17 22:00 10/16/17 11:39 Zantac - PO 150 mg BID [facility] Administration Trazodone HCl 50 mg 10/06/17 22:00 10/15/17 22:17 Desyrel - PO 50 mg HS [facility] Administration Laboratory Tests 10/16/17 05:45 Magnesium 1.7 L Impression 1. CKD 2. SUSAN 3. DM 4. htn 5. chol 6. chemo port malfunction 7. a-fib 8. lung mass 9. proteinuria 10. adenocarcinoma 11. CVA 12. acute resp failure 13. hyperkalemia 14. hypernatremia 15. pleural effusions Plan - follow cultures - check bmp in am - replace mag - can switch feeds to glucernal as a trial with close monitoring of potassium - renal function stable - pulm rehab - vent support Dr Llanos
[2017-10-16] MEDS: traZODone HCL 50 MG TABLET (FP) PO SCH (22:14)
[2017-10-16] MEDS: ATORVASTATIN CA 20 MG TABLET (FP) PO SCH (22:14)
[2017-10-16] MEDS: QUEtiapine FUMARATE 25 MG TABLET (FP) PO SCH (22:15)
[2017-10-17] MEDS ORDERED: dilTIAZem HCL 60 MG TABLET (FP) ONE ×4 (00:02→17:46)
[2017-10-17] MEDS ORDERED: dilTIAZem HCL 30 MG TABLET (FP) ONE ×5 (00:02→18:03)
[2017-10-17] MEDS: DILTIAZEM 60 MG, DILTIAZEM 30 MG NGT SCH ×4 (00:07→18:03)
[2017-10-17] MEDS: INSULIN SLIDING SCALE (NOVOLOG) 1 VIAL SQ SCH ×5 (01:16→23:45)
[2017-10-17] MEDS: ACETAMINOPHEN 650 MG/20.3 ML ORAL SOLUTION (CUPS) PEG PRN ×3 (05:51→20:07)
[2017-10-17] MEDS: MUPIROCIN 2% TOPICAL OINTMENT 22 GM TUBE TP SCH ×3 (05:52→22:57)
[2017-10-17] MEDS: INSULIN DETEMIR 100 UNITS/ML MDV SQ SCH ×2 (06:08→22:56)
[2017-10-17 08:47] LABS: HEMATOCRIT 28.2 % (32.4-45.2); HEMOGLOBIN 9.1 GM/dL (10.7-15.3); MCH 27.9 pg (25.7-33.7); MCHC 32.4 g/dl (32.0-36.0); MEAN CELL VOLUME 86.1 fl (80-96); MEAN PLT VOLUME 7.6 fl (7.5-11.1); PLATELET COUNT 327 K/MM3 (134-434); RBC 3.27 M/mm3 (3.60-5.2); RDW 16.6 % (11.6-15.6); WHITE BLOOD COUNT 10.4 K/mm3 (4.0-10.0)
[2017-10-17 09:09] LABS: ALBUMIN 1.6 g/dl (3.4-5.0); ANION GAP 7 (8-16); BLOOD UREA NITROGEN 32 mg/dL (7-18); CALCIUM 7.9 mg/dL (8.5-10.1); CHLORIDE 100 mmol/L (98-107); CO2 31 mmol/L (21-32); GLUCOSE,RANDOM 246 mg/dL (74-106); MAGNESIUM 1.9 mg/dL (1.8-2.4); POTASSIUM 3.4 mmol/L (3.5-5.1); SGOT/AST 22 U/L (15-37); SGPT/ALT 26 U/L (12-78); SODIUM 138 mmol/L (136-145)
[2017-10-17 09:11] LABS: ALK PHOS 103 U/L (45-117); BILIRUBIN,TOTAL 0.2 mg/dL (0.2-1.0); CREATININE 1.2 mg/dL (0.55-1.02); TOT PROT 5.1 g/dl (6.4-8.2)
--- NOTE | 2017-10-17 10:22 | PN ---
Progress Note, Physician Chief Complaint: temp 101 cultures pending bonilla to evaluate today with PMV - Current Medication List Current Medications: Active Medications Acetaminophen (Tylenol Oral Solution -) 650 mg PEG Q6H PRN PRN Reason: FEVER Last Admin: 10/17/17 05:51 Dose: 650 mg Artificial Tears (Artificial Tears Ointment -) 1 applic OU BID [facility] Last Admin: 10/16/17 22:14 Dose: 1 applic Atorvastatin Calcium (Lipitor -) 20 mg PO HS [facility] Last Admin: 10/16/17 22:14 Dose: 20 mg Digoxin (Lanoxin -) 0.125 mg PEG Q2D@1000 [facility] Last Admin: 10/16/17 11:38 Dose: 0.125 mg Diltiazem HCl 60 mg/ Diltiazem (HCl 30 mg) 90 mg NGT Q6HPO [facility] Last Admin: 10/17/17 05:51 Dose: 90 mg Enoxaparin Sodium (Lovenox -) 80 mg SQ BID [facility] Hydralazine HCl (Apresoline Injection -) 10 mg IVPUSH Q6H PRN PRN Reason: HYPERTENSION IV Flush (Picc Line Flush) 8 ml IVPUSH PRN PRN PRN Reason: Protocol Last Admin: 10/10/17 22:13 Dose: 8 ml Insulin Aspart (Novolog Vial Sliding Scale -) 1 vial SQ Q6H [facility] PRN Reason: Protocol Last Admin: 10/17/17 05:52 Dose: 6 units Insulin Detemir (Levemir Vial) 10 units SQ BID@0700,2200 [facility] Last Admin: 10/17/17 06:08 Dose: 10 units Metoprolol Tartrate (Lopressor Injection -) 5 mg IVPUSH Q4H PRN PRN Reason: HYPERTENSION Last Admin: 10/13/17 06:41 Dose: 5 mg Metoprolol Tartrate (Lopressor -) 50 mg NGT BID [facility] Last Admin: 10/16/17 22:14 Dose: 50 mg Mupirocin (Bactroban 2% Ointment -) 1 applic TP TID [facility] Last Admin: 10/17/17 05:52 Dose: 1 appful Nystatin (Mycostatin Ointment -) 1 applic TP BID [facility] Last Admin: 10/16/17 22:15 Dose: 1 applic Ondansetron HCl (Zofran Injection) 4 mg IVPUSH Q6H PRN PRN Reason: NAUSEA Potassium Chloride (Potassium Chloride Oral Liquid) 20 meq GT ONCE ONE Stop: 10/17/17 10:46 Quetiapine Fumarate (Seroquel -) 25 [address] [facility] Last Admin: 10/16/17 22:15 Dose: 25 mg Ranitidine HCl (Zantac -) 150 mg PO BID [facility] Last Admin: 10/16/17 22:16 Dose: 150 mg Trazodone HCl (Desyrel -) 50 mg PO [facility] Last Admin: 10/16/17 22:14 Dose: 50 mg - Objective Vital Signs: Vital Signs Temperature 101.4 F H 10/17/17 06:00 Pulse Rate 78 10/17/17 07:20 Respiratory Rate 18 10/17/17 07:00 Blood Pressure 150/79 10/17/17 06:00 O2 Sat by Pulse Oximetry (%) 99 10/17/17 07:20 Constitutional: Yes: Calm Neck: Yes: Other (trach) Cardiovascular: Yes: S1, S2 Respiratory: Yes: Mechanically Ventilated Gastrointestinal: Yes: Normal Bowel Sounds, Soft, Other (g tube) Labs: CBC, BMP 10/17/17 07:30 10/17/17 07:30 INR, PTT INR 0.98 (0.82-1.09) 10/02/17 05:30 Problem List - Problems (1) Hypomagnesemia Assessment/Plan: level ok today Code(s): E83.42 - HYPOMAGNESEMIA (2) Fever Assessment/Plan: off abx for now cultures pending plan for thoracocentesis on friday hold lovenox on friday morning Code(s): R50.9 - FEVER, UNSPECIFIED (3) UTI (urinary tract infection) Assessment/Plan: Microbiology 10/09/17 04:30 Urine - Urine - Catheterized Urine Culture - Final Pseudomonas Aeruginosa ceftazidime- course done Code(s): N39.0 - URINARY TRACT INFECTION, SITE NOT SPECIFIED (4) Sheeba infection Assessment/Plan: diflucan 200mg daily- completed topical antifungal cream to groin Code(s): B37.9 - CANDIDIASIS, UNSPECIFIED (5) Respiratory failure Assessment/Plan: s/p tracheostomy vent support bactroban to trach site PMV today MBS once better possibly friday Code(s): J96.90 - RESPIRATORY FAILURE, UNSP, UNSP W HYPOXIA OR HYPERCAPNIA (6) Pneumonia Assessment/Plan: iv zosyn s/p 8 day course abx stopped Code(s): J18.9 - PNEUMONIA, UNSPECIFIED ORGANISM (7) Atrial fibrillation Assessment/Plan: digoxin,cardizem and metoprolol eliquis stopped on lovenox Code(s): I48.91 - UNSPECIFIED ATRIAL FIBRILLATION (8) Anemia Assessment/Plan: ppi GI follow up noted Code(s): D64.9 - ANEMIA, UNSPECIFIED (9) Diabetes Assessment/Plan: insulin bgm ok for now Code(s): E11.9 - TYPE 2 DIABETES MELLITUS WITHOUT COMPLICATIONS Qualifiers: Diabetes mellitus type: type 2 (10) CVA (cerebral vascular accident) Assessment/Plan: S/p multiple acute embolic infarcts - s/p trach on vent s/p peg now needs snf placement Code(s): I63.9 - CEREBRAL INFARCTION, UNSPECIFIED Qualifiers: Laterality of affected vessel: unspecified
--- NOTE | 2017-10-17 10:25 | PN ---
Progress Note, DOLLYMAN - Note Progress Note: Selected Entries 10/16/17 10/16/17 10/16/17 02:00 06:00 10:00 Temperature 100.2 F H 102.8 F H 99 F 10/16/17 10/17/17 10/17/17 15:30 02:00 06:00 Temperature 101.8 F H 100.3 F H 101.4 F H Laboratory Tests 10/13/17 10/15/17 10/17/17 11:00 08:00 00:24 WBC 12.2 H D 12.5 H Random Glucose 417 H* 10/17/17 07:30 WBC 10.4 H Random Glucose Per ID: Fevers Respiratory failure Metastatic ca Leukocytosis Azotemia Off antibiotics Await repeat cultures Thoracentesis Pt seen in conjunction with Respiratory Therapy. Lethargic. Arousable briefly, but insufficient participation for PMV trial. Will reassess Friday, unless pt becomes more alert today.
[2017-10-17] MEDS ORDERED: POTASSIUM CHLORIDE ORAL LIQUID 20 MEQ/15 ML GT ONE (10:45)
[2017-10-17] MEDS ORDERED: PT OWN MED DRAWER 7, Y5N ONE (11:50)
[2017-10-17] MEDS: METOPROLOL TARTRATE 50 MG TABLET (FP) NGT SCH ×2 (11:51→22:56)
[2017-10-17] MEDS: ENOXAPARIN NA (PORCINE) 80 MG/0.8 ML DISP.SYRIN SQ SCH ×2 (11:51→22:55)
[2017-10-17] MEDS: RANITIDINE HCL 150 MG TABLET (FP) PO SCH ×2 (11:52→22:58)
[2017-10-17] MEDS: NYSTATIN 100000 UNIT/GM TOPICAL OINTMENT 15 GM TUBE TP SCH ×2 (11:52→22:55)
[2017-10-17] MEDS: MINERAL OIL/PETROLATUM,WHITE 3.5 GM TUBE OU SCH ×2 (12:00→22:55)
[2017-10-17 12:16] LABS: PLATELET ESTIMATE ADEQUATE
--- NOTE | 2017-10-17 14:38 | PN ---
Progress Note, Physician History of Present Illness: REVIEWED - Current Medication List Current Medications: Active Medications Acetaminophen (Tylenol Oral Solution -) 650 mg PEG Q6H PRN PRN Reason: FEVER Last Admin: 10/17/17 14:05 Dose: 650 mg Artificial Tears (Artificial Tears Ointment -) 1 applic OU BID [facility] Last Admin: 10/16/17 22:14 Dose: 1 applic Atorvastatin Calcium (Lipitor -) 20 mg PO HS [facility] Last Admin: 10/16/17 22:14 Dose: 20 mg Digoxin (Lanoxin -) 0.125 mg PEG Q2D@1000 [facility] Last Admin: 10/16/17 11:38 Dose: 0.125 mg Diltiazem HCl 60 mg/ Diltiazem (HCl 30 mg) 90 mg NGT Q6HPO [facility] Last Admin: 10/17/17 11:51 Dose: 90 mg Enoxaparin Sodium (Lovenox -) 80 mg SQ BID [facility] Last Admin: 10/17/17 11:51 Dose: 80 mg Hydralazine HCl (Apresoline Injection -) 10 mg IVPUSH Q6H PRN PRN Reason: HYPERTENSION IV Flush (Picc Line Flush) 8 ml IVPUSH PRN PRN PRN Reason: Protocol Last Admin: 10/10/17 22:13 Dose: 8 ml Insulin Aspart (Novolog Vial Sliding Scale -) 1 vial SQ Q6H [facility] PRN Reason: Protocol Last Admin: 10/17/17 12:01 Dose: 4 units Insulin Detemir (Levemir Vial) 10 units SQ BID@0700,2200 [facility] Last Admin: 10/17/17 06:08 Dose: 10 units Metoprolol Tartrate (Lopressor Injection -) 5 mg IVPUSH Q4H PRN PRN Reason: HYPERTENSION Last Admin: 10/13/17 06:41 Dose: 5 mg Metoprolol Tartrate (Lopressor -) 50 mg NGT BID [facility] Last Admin: 10/17/17 11:51 Dose: 50 mg Mupirocin (Bactroban 2% Ointment -) 1 applic TP TID [facility] Last Admin: 10/17/17 05:52 Dose: 1 appful Nystatin (Mycostatin Ointment -) 1 applic TP BID [facility] Last Admin: 10/17/17 11:52 Dose: 1 applic Ondansetron HCl (Zofran Injection) 4 mg IVPUSH Q6H PRN PRN Reason: NAUSEA Quetiapine Fumarate (Seroquel -) 25 mg PO [facility] Last Admin: 10/16/17 22:15 Dose: 25 mg Ranitidine HCl (Zantac -) 150 mg PO BID [facility] Last Admin: 10/17/17 11:52 Dose: 150 mg Trazodone HCl (Desyrel -) 50 mg PO [facility] Last Admin: 10/16/17 22:14 Dose: 50 mg - Objective Vital Signs: Vital Signs Temperature 99.8 F H 10/17/17 13:41 Pulse Rate 81 10/17/17 13:41 Respiratory Rate 19 10/17/17 14:08 Blood Pressure 157/79 10/17/17 13:41 O2 Sat by Pulse Oximetry (%) 99 10/17/17 10:25 Constitutional: Yes: Calm Eyes: Yes: EOM Intact HENT: Yes: Normocephalic Neck: Yes: Trachea Midline Cardiovascular: Yes: S1, S2 Respiratory: Yes: Diminished Gastrointestinal: Yes: Soft Edema: No Labs: CBC, BMP 10/17/17 07:30 10/17/17 07:30 INR, PTT INR 0.98 (0.82-1.09) 10/02/17 05:30 - ....Imaging Chest X-ray: Report Reviewed, Image Reviewed Cat Scan: Report Reviewed EKG: Report Reviewed Problem List - Problems (1) Anemia Code(s): D64.9 - ANEMIA, UNSPECIFIED (2) Brain metastasis Code(s): C79.31 - SECONDARY MALIGNANT NEOPLASM OF BRAIN (3) CVA (cerebral vascular accident) Code(s): I63.9 - CEREBRAL INFARCTION, UNSPECIFIED Qualifiers: Laterality of affected vessel: unspecified (4) Fever Code(s): R50.9 - FEVER, UNSPECIFIED Qualifiers: Fever type: unspecified Qualified Code(s): R50.9 - Fever, unspecified (5) Headache Code(s): R51 - HEADACHE Qualifiers: Headache chronicity pattern: unspecified pattern Intractability: intractable (6) Hypercapnia Code(s): R06.89 - OTHER ABNORMALITIES OF BREATHING (7) Metastatic colorectal cancer Code(s): C78.5 - SECONDARY MALIGNANT NEOPLASM OF LARGE INTESTINE AND RECTUM (8) Pleural effusion Code(s): J90 - PLEURAL EFFUSION, NOT ELSEWHERE CLASSIFIED (9) Pneumonia Code(s): J18.9 - PNEUMONIA, UNSPECIFIED ORGANISM (10) Respiratory failure Code(s): J96.90 - RESPIRATORY FAILURE, UNSP, UNSP W HYPOXIA OR HYPERCAPNIA (11) Ventilator dependent Code(s): Z99.11 - DEPENDENCE ON RESPIRATOR [VENTILATOR] STATUS Assessment/Plan Multiple Acute Embolic CVA Acute Hypoxic Respiratory Failure s/p Tracheostomy Aspiration Pneumonia Atrial Fibrillation with RVR Metastatic Colon Ca to Lung Acute on Chronic Renal Failure HTN DM Hypercholesterolemia - antibiotics per ID - awaiting thoracentesis - hold eliquis, will place on lovenox for now - titrate rate control - monitor urine output, creatinine - enteral feeds - CPAP/PS as tolerated - DVT/GI prophylaxis Marley WILSON MD
--- NOTE | 2017-10-17 16:15 | PN ---
Progress Note, Physician History of Present Illness: Pt seen and examined at bedside. She is awake and appears comfortable. - Current Medication List Current Medications: Active Medications Acetaminophen (Tylenol Oral Solution -) 650 mg PEG Q6H PRN PRN Reason: FEVER Last Admin: 10/17/17 14:05 Dose: 650 mg Artificial Tears (Artificial Tears Ointment -) 1 applic OU BID [facility] Last Admin: 10/16/17 22:14 Dose: 1 applic Atorvastatin Calcium (Lipitor -) 20 mg PO HS [facility] Last Admin: 10/16/17 22:14 Dose: 20 mg Digoxin (Lanoxin -) 0.125 mg PEG Q2D@1000 [facility] Last Admin: 10/16/17 11:38 Dose: 0.125 mg Diltiazem HCl 60 mg/ Diltiazem (HCl 30 mg) 90 mg NGT Q6HPO [facility] Last Admin: 10/17/17 11:51 Dose: 90 mg Enoxaparin Sodium (Lovenox -) 80 mg SQ BID [facility] Last Admin: 10/17/17 11:51 Dose: 80 mg Hydralazine HCl (Apresoline Injection -) 10 mg IVPUSH Q6H PRN PRN Reason: HYPERTENSION IV Flush (Picc Line Flush) 8 ml IVPUSH PRN PRN PRN Reason: Protocol Last Admin: 10/10/17 22:13 Dose: 8 ml Insulin Aspart (Novolog Vial Sliding Scale -) 1 vial SQ Q6H [facility] PRN Reason: Protocol Last Admin: 10/17/17 12:01 Dose: 4 units Insulin Detemir (Levemir Vial) 10 units SQ BID@0700,2200 [facility] Last Admin: 10/17/17 06:08 Dose: 10 units Metoprolol Tartrate (Lopressor Injection -) 5 mg IVPUSH Q4H PRN PRN Reason: HYPERTENSION Last Admin: 10/13/17 06:41 Dose: 5 mg Metoprolol Tartrate (Lopressor -) 50 mg NGT BID [facility] Last Admin: 10/17/17 11:51 Dose: 50 mg Mupirocin (Bactroban 2% Ointment -) 1 applic TP TID [facility] Last Admin: 10/17/17 05:52 Dose: 1 appful Nystatin (Mycostatin Ointment -) 1 applic TP BID [facility] Last Admin: 02/09/18 11:52 Dose: 1 applic Ondansetron HCl (Zofran Injection) 4 mg IVPUSH Q6H PRN PRN Reason: NAUSEA Quetiapine Fumarate (Seroquel -) 25 mg PO [facility] Last Admin: 10/16/17 22:15 Dose: 25 mg Ranitidine HCl (Zantac -) 150 mg PO BID [facility] Last Admin: 10/17/17 11:52 Dose: 150 mg Trazodone HCl (Desyrel -) 50 mg PO [facility] Last Admin: 10/16/17 22:14 Dose: 50 mg - Objective Vital Signs: Vital Signs Temperature 99.8 F H 10/17/17 13:41 Pulse Rate 81 10/17/17 13:41 Respiratory Rate 19 10/17/17 14:08 Blood Pressure 157/79 10/17/17 13:41 O2 Sat by Pulse Oximetry (%) 99 10/17/17 10:25 HENT: Yes: Other (trache) Cardiovascular: Yes: S1, S2 Respiratory: Yes: Mechanically Ventilated Gastrointestinal: Yes: Soft, Other (peg) Genitourinary: Yes: Incontinence Musculoskeletal: Yes: Muscle Weakness Edema: No Neurological: Yes: Oriented Labs: CBC, BMP 10/17/17 07:30 10/17/17 07:30 INR, PTT INR 0.98 (0.82-1.09) 10/02/17 05:30 Problem List - Problems (1) Brain metastasis Code(s): C79.31 - SECONDARY MALIGNANT NEOPLASM OF BRAIN (2) Headache Code(s): R51 - HEADACHE Qualifiers: Headache chronicity pattern: unspecified pattern Intractability: intractable (3) Metastatic colorectal cancer Code(s): C78.5 - SECONDARY MALIGNANT NEOPLASM OF LARGE INTESTINE AND RECTUM (4) SUSAN (acute kidney injury) Code(s): N17.9 - ACUTE KIDNEY FAILURE, UNSPECIFIED (5) Atrial fibrillation Code(s): I48.91 - UNSPECIFIED ATRIAL FIBRILLATION (6) Cancer, colon Code(s): C18.9 - MALIGNANT NEOPLASM OF COLON, UNSPECIFIED Qualifiers: Colon location: unspecified part of colon Qualified Code(s): C18.9 - Malignant neoplasm of colon, unspecified (7) Lung mass Code(s): R91.8 - OTHER NONSPECIFIC ABNORMAL FINDING OF LUNG FIELD Assessment/Plan Current Medications Generic Name Dose Route Start Last Admin Trade Name Freq PRN Reason Stop Dose Admin Acetaminophen 650 mg 10/06/17 20:09 10/17/17 14:05 Tylenol Oral Solution - PEG 650 mg Q6H PRN Administration FEVER Artificial Tears 1 applic 10/06/17 22:00 10/16/17 22:14 Artificial Tears Ointment - OU 1 applic BID [facility] Administration Atorvastatin Calcium 20 mg 10/06/17 22:00 10/16/17 22:14 Lipitor - PO 20 mg HS [facility] Administration Digoxin 0.125 mg 10/08/17 10:00 10/16/17 11:38 Lanoxin - PEG 0.125 mg Q2D@1000 [facility] Administration Diltiazem HCl 60 mg/ Diltiazem 90 mg 10/07/17 00:00 10/17/17 11:51 HCl 30 mg NGT 90 mg Q6HPO [facility] Administration Enoxaparin Sodium 80 mg 10/17/17 10:00 10/17/17 11:51 Lovenox - SQ 80 mg BID [facility] Administration Hydralazine HCl 10 mg 10/06/17 20:09 Apresoline Injection - IVPUSH Q6H PRN HYPERTENSION IV Flush 8 ml 10/09/17 11:32 10/10/17 22:13 Picc Line Flush IVPUSH 8 ml PRN PRN Administration Protocol Insulin Aspart 1 vial 10/07/17 00:00 10/17/17 12:01 Novolog Vial Sliding Scale - SQ 4 units Q6H [facility] Administration Protocol Insulin Detemir 10 units 10/06/17 22:00 10/17/17 06:08 Levemir Vial SQ 10 units BID@0700,2200 [facility] Administration Metoprolol Tartrate 5 mg 10/06/17 20:09 10/13/17 06:41 Lopressor Injection - IVPUSH 5 mg Q4H PRN Administration HYPERTENSION Metoprolol Tartrate 50 mg 10/07/17 10:00 10/17/17 11:51 Lopressor - NGT 50 mg BID [facility] Administration Mupirocin 1 applic 10/09/17 14:00 10/17/17 05:52 Bactroban 2% Ointment - TP 1 appful TID [facility] Administration Nystatin 1 applic 10/06/17 22:00 10/17/17 11:52 Mycostatin Ointment - TP 1 applic BID [facility] Administration Ondansetron HCl 4 mg 10/06/17 20:09 Zofran Injection IVPUSH Q6H PRN NAUSEA Quetiapine Fumarate 25 mg 10/06/17 22:00 10/16/17 22:15 Seroquel - PO 25 mg HS [facility] Administration Ranitidine HCl 150 mg 10/06/17 22:00 10/17/17 11:52 Zantac - PO 150 mg BID [facility] Administration Trazodone HCl 50 mg 10/06/17 22:00 10/16/17 22:14 Desyrel - PO 50 mg HS [facility] Administration Impression 1. CKD 2. SUSAN 3. DM 4. htn 5. chol 6. chemo port malfunction 7. a-fib 8. lung mass 9. proteinuria 10. adenocarcinoma 11. CVA 12. acute resp failure 13. hyperkalemia 14. hypernatremia 15. pleural effusions Plan - renal function is stable - cont feeds - monitor lytes - vent support - potassium replaced - will follow PRN Dr Llanos
[2017-10-17] MEDS: QUEtiapine FUMARATE 25 MG TABLET (FP) PO SCH (22:50)
[2017-10-17] MEDS: traZODone HCL 50 MG TABLET (FP) PO SCH (22:56)
[2017-10-17] MEDS: ATORVASTATIN CA 20 MG TABLET (FP) PO SCH (22:56)
[2017-10-18] MEDS ORDERED: dilTIAZem HCL 60 MG TABLET (FP) ONE ×5 (01:01→23:24)
[2017-10-18] MEDS ORDERED: dilTIAZem HCL 30 MG TABLET (FP) ONE ×5 (01:01→23:24)
[2017-10-18] MEDS: DILTIAZEM 60 MG, DILTIAZEM 30 MG NGT SCH ×5 (01:04→23:25)
[2017-10-18] MEDS: INSULIN SLIDING SCALE (NOVOLOG) 1 VIAL SQ SCH ×3 (06:21→17:00)
[2017-10-18] MEDS: INSULIN DETEMIR 100 UNITS/ML MDV SQ SCH ×2 (06:22→22:02)
[2017-10-18] MEDS: MUPIROCIN 2% TOPICAL OINTMENT 22 GM TUBE TP SCH ×2 (06:22→17:00)
[2017-10-18 08:40] LABS: ALBUMIN 1.8 g/dl (3.4-5.0); ANION GAP 9 (8-16); BLOOD UREA NITROGEN 31 mg/dL (7-18); CALCIUM 8.8 mg/dL (8.5-10.1); CHLORIDE 99 mmol/L (98-107); CO2 30 mmol/L (21-32); GLUCOSE,RANDOM 292 mg/dL (74-106); MAGNESIUM 1.7 mg/dL (1.8-2.4); POTASSIUM 3.2 mmol/L (3.5-5.1); SODIUM 138 mmol/L (136-145)
[2017-10-18 08:44] LABS: ALK PHOS 126 U/L (45-117); BILIRUBIN,TOTAL 0.3 mg/dL (0.2-1.0); CREATININE 1.1 mg/dL (0.55-1.02); SGOT/AST 29 U/L (15-37); SGPT/ALT 32 U/L (12-78); TOT PROT 5.8 g/dl (6.4-8.2)
[2017-10-18] MEDS ORDERED: PT OWN MED DRAWER 7, Y5N ONE (09:50)
[2017-10-18] MEDS: METOPROLOL TARTRATE 50 MG TABLET (FP) NGT SCH ×2 (09:59→20:56)
[2017-10-18] MEDS: DIGOXIN 0.125 MG TABLET (FP) PEG SCH (09:59)
[2017-10-18] MEDS: ENOXAPARIN NA (PORCINE) 80 MG/0.8 ML DISP.SYRIN SQ SCH ×2 (10:00→22:04)
[2017-10-18] MEDS: RANITIDINE HCL 150 MG TABLET (FP) PO SCH ×2 (10:00→22:04)
[2017-10-18] MEDS: NYSTATIN 100000 UNIT/GM TOPICAL OINTMENT 15 GM TUBE TP SCH (10:01)
[2017-10-18] MEDS: ACETAMINOPHEN 650 MG/20.3 ML ORAL SOLUTION (CUPS) PEG PRN ×2 (10:02→20:56)
[2017-10-18] MEDS: MINERAL OIL/PETROLATUM,WHITE 3.5 GM TUBE OU SCH ×2 (10:02→23:11)
--- NOTE | 2017-10-18 12:41 | PN ---
Progress Note, Physician History of Present Illness: pulmonary alert,on vent support ac mode,-resp distress - Current Medication List Current Medications: Active Medications Acetaminophen (Tylenol Oral Solution -) 650 mg PEG Q6H PRN PRN Reason: FEVER Last Admin: 10/18/17 10:02 Dose: 650 mg Artificial Tears (Artificial Tears Ointment -) 1 applic OU BID [facility] Last Admin: 10/18/17 10:02 Dose: 1 applic Atorvastatin Calcium (Lipitor -) 20 mg PO HS [facility] Last Admin: 10/17/17 22:56 Dose: 20 mg Digoxin (Lanoxin -) 0.125 mg PEG Q2D@1000 [facility] Last Admin: 10/18/17 09:59 Dose: 0.125 mg Diltiazem HCl 60 mg/ Diltiazem (HCl 30 mg) 90 mg NGT Q6HPO [facility] Last Admin: 10/18/17 11:49 Dose: 90 mg Enoxaparin Sodium (Lovenox -) 80 mg SQ BID [facility] Last Admin: 10/18/17 10:00 Dose: 80 mg Hydralazine HCl (Apresoline Injection -) 10 mg IVPUSH Q6H PRN PRN Reason: HYPERTENSION IV Flush (Picc Line Flush) 8 ml IVPUSH PRN PRN PRN Reason: Protocol Last Admin: 10/10/17 22:13 Dose: 8 ml Insulin Aspart (Novolog Vial Sliding Scale -) 1 vial SQ Q6H [facility] PRN Reason: Protocol Last Admin: 10/18/17 11:58 Dose: 8 units Insulin Detemir (Levemir Vial) 10 units SQ BID@0700,2200 [facility] Last Admin: 10/18/17 06:22 Dose: 10 units Metoprolol Tartrate (Lopressor Injection -) 5 mg IVPUSH Q4H PRN PRN Reason: HYPERTENSION Last Admin: 10/13/17 06:41 Dose: 5 mg Metoprolol Tartrate (Lopressor -) 50 mg NGT BID [facility] Last Admin: 10/18/17 09:59 Dose: 50 mg Mupirocin (Bactroban 2% Ointment -) 1 applic TP TID [facility] Last Admin: 10/18/17 06:22 Dose: 1 appful Nystatin (Mycostatin Ointment -) 1 applic TP BID [facility] Last Admin: 10/18/17 10:01 Dose: 1 applic Ondansetron HCl (Zofran Injection) 4 mg IVPUSH Q6H PRN PRN Reason: NAUSEA Quetiapine Fumarate (Seroquel -) 25 mg PO [facility] Last Admin: 10/17/17 22:50 Dose: 25 mg Ranitidine HCl (Zantac -) 150 mg PO BID [facility] Last Admin: 10/18/17 10:00 Dose: 150 mg Trazodone HCl (Desyrel -) 50 mg PO [facility] Last Admin: 10/17/17 22:56 Dose: 50 mg - Objective Vital Signs: Vital Signs Temperature 100.5 F H 10/18/17 09:42 Pulse Rate 87 10/18/17 09:59 Respiratory Rate 20 10/18/17 09:42 Blood Pressure 153/71 10/18/17 09:42 O2 Sat by Pulse Oximetry (%) 99 10/17/17 10:25 Constitutional: Yes: Well Nourished, Calm Eyes: Yes: WNL HENT: Yes: WNL Neck: Yes: Supple (trach) Cardiovascular: Yes: Pulse Irregular, S1, S2 Respiratory: Yes: Rhonchi (few scatteredd rhonchi) Gastrointestinal: Yes: Normal Bowel Sounds, Soft Extremities: Yes: WNL Edema: No Labs: CBC, BMP 10/17/17 07:30 10/18/17 06:30 INR, PTT INR 0.98 (0.82-1.09) 10/02/17 05:30 Problem List - Problems (1) Anemia Code(s): D64.9 - ANEMIA, UNSPECIFIED (2) Brain metastasis Code(s): C79.31 - SECONDARY MALIGNANT NEOPLASM OF BRAIN (3) CVA (cerebral vascular accident) Code(s): I63.9 - CEREBRAL INFARCTION, UNSPECIFIED Qualifiers: Laterality of affected vessel: unspecified (4) Metastatic colorectal cancer Code(s): C78.5 - SECONDARY MALIGNANT NEOPLASM OF LARGE INTESTINE AND RECTUM (5) Respiratory failure Code(s): J96.90 - RESPIRATORY FAILURE, UNSP, UNSP W HYPOXIA OR HYPERCAPNIA (6) Atrial fibrillation Code(s): I48.91 - UNSPECIFIED ATRIAL FIBRILLATION (7) HTN (hypertension) Code(s): I10 - ESSENTIAL (PRIMARY) HYPERTENSION (8) Lung mass Code(s): R91.8 - OTHER NONSPECIFIC ABNORMAL FINDING OF LUNG FIELD Assessment/Plan ASSESSMENT AND PLAN: Multiple Acute Embolic CVA Acute Hypoxic Respiratory Failure s/p Tracheostomy Aspiration Pneumonia Atrial Fibrillation with RVR Metastatic Colon Ca to Lung Acute on Chronic Renal Failure HTN DM Hypercholesterolemia - anticoagulation - monitor urine output, creatinine - enteral feeds - spontaneous breathing trials as tolerated - DVT/GI prophylaxis - cultures - possible thoracentesis to evaluate left pleural effusion DR LEONE
--- NOTE | 2017-10-18 13:47 | PN ---
Progress Note, Physician - Current Medication List Current Medications: Active Medications Acetaminophen (Tylenol Oral Solution -) 650 mg PEG Q6H PRN PRN Reason: FEVER Last Admin: 10/18/17 10:02 Dose: 650 mg Artificial Tears (Artificial Tears Ointment -) 1 applic OU BID [facility] Last Admin: 10/18/17 10:02 Dose: 1 applic Atorvastatin Calcium (Lipitor -) 20 mg PO HS [facility] Last Admin: 10/17/17 22:56 Dose: 20 mg Digoxin (Lanoxin -) 0.125 mg PEG Q2D@1000 [facility] Last Admin: 10/18/17 09:59 Dose: 0.125 mg Diltiazem HCl 60 mg/ Diltiazem (HCl 30 mg) 90 mg NGT Q6HPO [facility] Last Admin: 10/18/17 11:49 Dose: 90 mg Enoxaparin Sodium (Lovenox -) 80 mg SQ BID [facility] Last Admin: 10/18/17 10:00 Dose: 80 mg Hydralazine HCl (Apresoline Injection -) 10 mg IVPUSH Q6H PRN PRN Reason: HYPERTENSION IV Flush (Picc Line Flush) 8 ml IVPUSH PRN PRN PRN Reason: Protocol Last Admin: 10/10/17 22:13 Dose: 8 ml Insulin Aspart (Novolog Vial Sliding Scale -) 1 vial SQ Q6H [facility] PRN Reason: Protocol Last Admin: 10/18/17 11:58 Dose: 8 units Insulin Detemir (Levemir Vial) 10 units SQ BID@0700,2200 [facility] Last Admin: 10/18/17 06:22 Dose: 10 units Metoprolol Tartrate (Lopressor Injection -) 5 mg IVPUSH Q4H PRN PRN Reason: HYPERTENSION Last Admin: 10/13/17 06:41 Dose: 5 mg Metoprolol Tartrate (Lopressor -) 50 mg NGT BID [facility] Last Admin: 10/18/17 09:59 Dose: 50 mg Mupirocin (Bactroban 2% Ointment -) 1 applic TP TID [facility] Last Admin: 10/18/17 06:22 Dose: 1 appful Nystatin (Mycostatin Ointment -) 1 applic TP BID [facility] Last Admin: 10/18/17 10:01 Dose: 1 applic Ondansetron HCl (Zofran Injection) 4 mg IVPUSH Q6H PRN PRN Reason: NAUSEA Quetiapine Fumarate (Seroquel -) 25 mg PO [facility] Last Admin: 10/17/17 22:50 Dose: 25 mg Ranitidine HCl (Zantac -) 150 mg PO BID [facility] Last Admin: 10/18/17 10:00 Dose: 150 mg Trazodone HCl (Desyrel -) 50 mg PO [facility] Last Admin: 10/17/17 22:56 Dose: 50 mg - Objective Vital Signs: Vital Signs Temperature 100.5 F H 10/18/17 09:42 Pulse Rate 87 10/18/17 09:59 Respiratory Rate 20 10/18/17 12:41 Blood Pressure 153/71 10/18/17 09:42 O2 Sat by Pulse Oximetry (%) 99 10/17/17 10:25 Cardiovascular: Yes: S1, S2 Respiratory: Yes: Rhonchi, Other (TRACH) Gastrointestinal: Yes: Normal Bowel Sounds, Soft Labs: CBC, BMP 10/17/17 07:30 10/18/17 06:30 INR, PTT INR 0.98 (0.82-1.09) 10/02/17 05:30 Problem List - Problems (1) Respiratory failure Code(s): J96.90 - RESPIRATORY FAILURE, UNSP, UNSP W HYPOXIA OR HYPERCAPNIA (2) Brain metastasis Code(s): C79.31 - SECONDARY MALIGNANT NEOPLASM OF BRAIN (3) CVA (cerebral vascular accident) Code(s): I63.9 - CEREBRAL INFARCTION, UNSPECIFIED Qualifiers: Laterality of affected vessel: unspecified (4) Metastatic colorectal cancer Code(s): C78.5 - SECONDARY MALIGNANT NEOPLASM OF LARGE INTESTINE AND RECTUM (5) Atrial fibrillation Code(s): I48.91 - UNSPECIFIED ATRIAL FIBRILLATION (6) Diabetes Code(s): E11.9 - TYPE 2 DIABETES MELLITUS WITHOUT COMPLICATIONS Qualifiers: Diabetes mellitus type: type 2 (7) Hypernatremia Code(s): E87.0 - HYPEROSMOLALITY AND HYPERNATREMIA Assessment/Plan - Problems (1) Hypomagnesemia Assessment/Plan: level ok today Code(s): E83.42 - HYPOMAGNESEMIA (2) Fever Assessment/Plan: off abx for now cultures pending plan for thoracocentesis on friday hold lovenox on friday morning Code(s): R50.9 - FEVER, UNSPECIFIED (3) UTI (urinary tract infection) Assessment/Plan: Microbiology 10/09/17 04:30 Urine - Urine - Catheterized Urine Culture - Final Pseudomonas Aeruginosa ceftazidime- course done Code(s): N39.0 - URINARY TRACT INFECTION, SITE NOT SPECIFIED (4) Sheeba infection Assessment/Plan: diflucan 200mg daily- completed topical antifungal cream to groin Code(s): B37.9 - CANDIDIASIS, UNSPECIFIED (5) Respiratory failure Assessment/Plan: s/p tracheostomy vent support bactroban to trach site PMV today MBS once better possibly friday Code(s): J96.90 - RESPIRATORY FAILURE, UNSP, UNSP W HYPOXIA OR HYPERCAPNIA (6) Pneumonia Assessment/Plan: iv zosyn s/p 8 day course abx stopped Code(s): J18.9 - PNEUMONIA, UNSPECIFIED ORGANISM (7) Atrial fibrillation Assessment/Plan: digoxin,cardizem and metoprolol eliquis stopped on lovenox Code(s): I48.91 - UNSPECIFIED ATRIAL FIBRILLATION (8) Anemia Assessment/Plan: ppi GI follow up noted Code(s): D64.9 - ANEMIA, UNSPECIFIED (9) Diabetes Assessment/Plan: insulin bgm ok for now Code(s): E11.9 - TYPE 2 DIABETES MELLITUS WITHOUT COMPLICATIONS Qualifiers: Diabetes mellitus type: type 2 (10) CVA (cerebral vascular accident) Assessment/Plan: S/p multiple acute embolic infarcts - s/p trach on vent s/p peg now needs snf placement Code(s): I63.9 - CEREBRAL INFARCTION, UNSPECIFIED Qualifiers: Laterality of affected vessel: unspecified
[2017-10-18] MEDS ORDERED: INSULIN (NOVOLOG) ASPART 100 UNITS/ML 10ML VIAL ONE (17:30)
--- NOTE | 2017-10-18 20:25 | HOSP ---
Physical Examination Vital Signs: Vital Signs Temperature 97.7 F 10/18/17 18:48 Pulse Rate 73 10/18/17 18:48 Respiratory Rate 31 H 10/18/17 19:16 Blood Pressure 163/77 10/18/17 18:48 O2 Sat by Pulse Oximetry (%) 98 10/18/17 10:00 Findings/Remarks: Called by RN that patient complaining of chest pain (RN states difficult to assess chest pain on patient due to mental status). Upon evaluation patient had fever 101.7. Patient is currently being followed by ID and is off all abx and is planned for thoracentesis on Friday. Plan: 1) Chest pain: stat EKG, trend troponins 2) Fever: f/u chest x-ray, blood cultures, UA, urine culture 3) Instructed RN to inform ID of fever, will hold off on abx at this time until results of chest x-ray, urines, blood Continue to monitor Labs: CBC, BMP 10/17/17 07:30 10/18/17 06:30
[2017-10-18] MEDS: traZODone HCL 50 MG TABLET (FP) PO SCH (20:55)
[2017-10-18] MEDS ORDERED: POTASSIUM CHLORIDE 20 MEQ PREMIX IVPB 100 ML IVPB ONE (20:58)
[2017-10-18] MEDS: ALBUTEROL SO4 2.5/IPRATROPIUM 0.5 INH SOL 3 ML VIAL.NEB. NEB PRN (21:10)
[2017-10-18] MEDS ORDERED: MAGNESIUM 1GM/D5W - 1 GM/100 ML IVPB IVPB ONE (21:15)
[2017-10-18] MEDS ORDERED: SODIUM CHLORIDE 100 ML with POTASSIUM CHLORIDE 10 MEQ IVPB SCH (21:15)
[2017-10-18 21:31] LABS: HEMATOCRIT 28.5 % (32.4-45.2); HEMOGLOBIN 9.6 GM/dL (10.7-15.3); MCH 28.8 pg (25.7-33.7); MCHC 33.8 g/dl (32.0-36.0); MEAN CELL VOLUME 85.1 fl (80-96); MEAN PLT VOLUME 7.6 fl (7.5-11.1); PLATELET COUNT 330 K/MM3 (134-434); RBC 3.36 M/mm3 (3.60-5.2); RDW 16.1 % (11.6-15.6); WHITE BLOOD COUNT 11.3 K/mm3 (4.0-10.0)
--- NOTE | 2017-10-18 21:33 | HOSP ---
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 patient reportedly had chest discomfort. per rn patient answers ? w nodding of her head. Pt alert, restless. a bit confused. she attempts to mouth words but hard to understand what she is trying to say. she apparently had fevers today. She is being monitored off ABX. Pex gen- alert, in nad, restless hent- trach, on ventilator resp- lungs ctab, no cyanosis, no accessory muscle use cards- no JVD, RRR, s1s2 heard Neuro- alert, moving all ext spontaneously A/P: Chest discomfort/fevers: uacs, cxr, ekg, trop and cxr were ordered. her cxr shows R lower lobe lobulated lesion which is known on prior ct scan. i dont seen any new infiltrate. her cosotphrenic angles appear sharp. her ekg appears unchanged from her prior (no MANUELITO/STD). Physical Examination Vital Signs: Vital Signs Temperature 97.7 F 10/18/17 18:48 Pulse Rate 73 10/18/17 18:48 Respiratory Rate 31 H 10/18/17 19:16 Blood Pressure 163/77 10/18/17 18:48 O2 Sat by Pulse Oximetry (%) 98 10/18/17 10:00 Labs: CBC, BMP 10/18/17 06:30
[2017-10-18] MEDS: ATORVASTATIN CA 20 MG TABLET (FP) PO SCH (22:03)
[2017-10-18] MEDS: QUEtiapine FUMARATE 25 MG TABLET (FP) PO SCH (22:04)
[2017-10-18 22:33] LABS: PLATELET ESTIMATE ADEQUATE
[2017-10-19] MEDS: POTASSIUM CHLORIDE 10 MEQ in SODIUM CHLORIDE 100 ML IVPB SCH ×2 (00:09→01:20)
[2017-10-19 01:01] LABS: URINE APPEARANCE CLEAR; URINE BILIRUBIN NEGATIVE (NEGATIVE); URINE BLOOD NEGATIVE (NEGATIVE); URINE COLOR LTYELLOW; URINE GLUCOSE (UA) 3+ (NEGATIVE); URINE KETONE NEGATIVE (NEGATIVE); URINE LEUK ESTERASE NEGATIVE (NEGATIVE); URINE NITRITE NEGATIVE (NEGATIVE); URINE UROBILINOGEN NEGATIVE mg/dL (0.2-1.0)
[2017-10-19 01:06] LABS: URINE PROTEIN 3+ (NEGATIVE)
[2017-10-19] MEDS: INSULIN SLIDING SCALE (NOVOLOG) 1 VIAL SQ SCH ×5 (01:12→23:30)
[2017-10-19 01:19] LABS: URINE HYALINE CAST 1 /lpf
[2017-10-19] MEDS: MUPIROCIN 2% TOPICAL OINTMENT 22 GM TUBE TP SCH ×4 (02:11→22:26)
[2017-10-19] MEDS: traZODone HCL 50 MG TABLET (FP) PO SCH ×2 (02:11→22:27)
[2017-10-19] MEDS: NYSTATIN 100000 UNIT/GM TOPICAL OINTMENT 15 GM TUBE TP SCH ×3 (02:12→22:28)
[2017-10-19] MEDS: METOPROLOL TARTRATE 50 MG TABLET (FP) NGT SCH ×3 (02:12→22:27)
[2017-10-19] MEDS ORDERED: dilTIAZem HCL 30 MG TABLET (FP) ONE ×4 (05:38→23:06)
[2017-10-19] MEDS ORDERED: dilTIAZem HCL 60 MG TABLET (FP) ONE ×4 (05:38→23:06)
[2017-10-19] MEDS: INSULIN DETEMIR 100 UNITS/ML MDV SQ SCH ×2 (06:30→22:30)
[2017-10-19] MEDS: DILTIAZEM 60 MG, DILTIAZEM 30 MG NGT SCH ×4 (06:31→23:30)
[2017-10-19] MEDS ORDERED: INSULIN (NOVOLOG) ASPART 100 UNITS/ML 10ML VIAL ONE (07:02)
[2017-10-19] MEDS: ENOXAPARIN NA (PORCINE) 80 MG/0.8 ML DISP.SYRIN SQ SCH ×2 (11:03→22:27)
[2017-10-19] MEDS: RANITIDINE HCL 150 MG TABLET (FP) PO SCH ×2 (11:04→22:28)
[2017-10-19] MEDS: MINERAL OIL/PETROLATUM,WHITE 3.5 GM TUBE OU SCH ×2 (11:05→22:26)
--- NOTE | 2017-10-19 12:56 | PN ---
Progress Note, Physician History of Present Illness: PULMONARY NO DISTRESS ON VENT SUPPORT,AC MODE - Current Medication List Current Medications: Active Medications Acetaminophen (Tylenol Oral Solution -) 650 mg PEG Q6H PRN PRN Reason: FEVER Last Admin: 10/18/17 20:56 Dose: 650 mg Albuterol/Ipratropium (Duoneb -) 1 amp NEB Q6H PRN PRN Reason: SHORTNESS OF BREATH Last Admin: 10/18/17 21:10 Dose: 1 amp Artificial Tears (Artificial Tears Ointment -) 1 applic OU BID [facility] Last Admin: 10/19/17 11:05 Dose: 1 applic Atorvastatin Calcium (Lipitor -) 20 mg PO HS [facility] Last Admin: 10/18/17 22:03 Dose: 20 mg Digoxin (Lanoxin -) 0.125 mg PEG Q2D@1000 [facility] Last Admin: 10/18/17 09:59 Dose: 0.125 mg Diltiazem HCl 60 mg/ Diltiazem (HCl 30 mg) 90 mg NGT Q6HPO [facility] Last Admin: 10/19/17 11:04 Dose: 90 mg Enoxaparin Sodium (Lovenox -) 80 mg SQ BID [facility] Last Admin: 10/19/17 11:03 Dose: 80 mg Hydralazine HCl (Apresoline Injection -) 10 mg IVPUSH Q6H PRN PRN Reason: HYPERTENSION IV Flush (Picc Line Flush) 8 ml IVPUSH PRN PRN PRN Reason: Protocol Last Admin: 10/10/17 22:13 Dose: 8 ml Insulin Aspart (Novolog Vial Sliding Scale -) 1 vial SQ Q6H [facility] PRN Reason: Protocol Last Admin: 10/19/17 11:58 Dose: 8 units Insulin Detemir (Levemir Vial) 10 units SQ BID@0700,2200 [facility] Last Admin: 10/19/17 06:30 Dose: 10 units Metoprolol Tartrate (Lopressor Injection -) 5 mg IVPUSH Q4H PRN PRN Reason: HYPERTENSION Last Admin: 10/13/17 06:41 Dose: 5 mg Metoprolol Tartrate (Lopressor -) 50 mg NGT BID [facility] Last Admin: 10/19/17 11:04 Dose: 50 mg Mupirocin (Bactroban 2% Ointment -) 1 applic TP TID [facility] Last Admin: 10/19/17 06:31 Dose: 1 applic Nystatin (Mycostatin Ointment -) 1 applic TP BID [facility] Last Admin: 10/19/17 11:05 Dose: 1 applic Ondansetron HCl (Zofran Injection) 4 mg IVPUSH Q6H PRN PRN Reason: NAUSEA Quetiapine Fumarate (Seroquel -) 25 mg PO HS [facility] Last Admin: 10/18/17 22:04 Dose: 25 mg Ranitidine HCl (Zantac -) 150 mg PO BID [facility] Last Admin: 10/19/17 11:04 Dose: 150 mg Trazodone HCl (Desyrel -) 50 mg PO HS [facility] Last Admin: 10/19/17 02:11 Dose: Not Given - Objective Vital Signs: Vital Signs Temperature 99 F 10/19/17 11:00 Pulse Rate 86 10/19/17 11:00 Respiratory Rate 20 10/19/17 11:40 Blood Pressure 159/111 10/19/17 11:00 O2 Sat by Pulse Oximetry (%) 99 10/18/17 21:00 Constitutional: Yes: Well Nourished, Calm Eyes: Yes: WNL HENT: Yes: WNL, Tonsillar Exudate Neck: Yes: Supple (TRACH) Cardiovascular: Yes: Pulse Irregular, S1, S2 Respiratory: Yes: Rhonchi (FEW RHONCHI) Gastrointestinal: Yes: Normal Bowel Sounds, Soft Extremities: Yes: WNL Edema: No Labs: CBC, BMP - ....Imaging Chest X-ray: Report Reviewed, Image Reviewed (RLL MASS,-EFFUSION) Problem List - Problems (1) Anemia Code(s): D64.9 - ANEMIA, UNSPECIFIED (2) Brain metastasis Code(s): C79.31 - SECONDARY MALIGNANT NEOPLASM OF BRAIN (3) CVA (cerebral vascular accident) Code(s): I63.9 - CEREBRAL INFARCTION, UNSPECIFIED Qualifiers: Laterality of affected vessel: unspecified (4) Metastatic colorectal cancer Code(s): C78.5 - SECONDARY MALIGNANT NEOPLASM OF LARGE INTESTINE AND RECTUM (5) Respiratory failure Code(s): J96.90 - RESPIRATORY FAILURE, UNSP, UNSP W HYPOXIA OR HYPERCAPNIA (6) Atrial fibrillation Code(s): I48.91 - UNSPECIFIED ATRIAL FIBRILLATION (7) HTN (hypertension) Code(s): I10 - ESSENTIAL (PRIMARY) HYPERTENSION (8) Lung mass Code(s): R91.8 - OTHER NONSPECIFIC ABNORMAL FINDING OF LUNG FIELD Assessment/Plan ASSESSMENT AND PLAN: Multiple Acute Embolic CVA Acute Hypoxic Respiratory Failure s/p Tracheostomy Aspiration Pneumonia Atrial Fibrillation with RVR Metastatic Colon Ca to Lung Acute on Chronic Renal Failure HTN DM Hypercholesterolemia - anticoagulation - monitor urine output, creatinine - enteral feeds - spontaneous breathing trials as tolerated - DVT/GI prophylaxis DR LEONE
[2017-10-19] MEDS: ACETAMINOPHEN 650 MG/20.3 ML ORAL SOLUTION (CUPS) PEG PRN (15:03)
[2017-10-19] MEDS: POTASSIUM CHLORIDE ORAL LIQUID 20 MEQ/15 ML PO SCH (15:03)
[2017-10-19] MEDS ORDERED: INSULIN DETEMIR 100 UNITS/ML MDV SQ SCH (22:02)
--- NOTE | 2017-10-19 22:05 | PN ---
Progress Note, Physician History of Present Illness: S/P trach and GT metastatic colon CA seen by ID, nephrology and pulmonary - Current Medication List Current Medications: Active Medications Acetaminophen (Tylenol Oral Solution -) 650 mg PEG Q6H PRN PRN Reason: FEVER Last Admin: 10/19/17 15:03 Dose: 650 mg Albuterol/Ipratropium (Duoneb -) 1 amp NEB Q6H PRN PRN Reason: SHORTNESS OF BREATH Last Admin: 10/18/17 21:10 Dose: 1 amp Artificial Tears (Artificial Tears Ointment -) 1 applic OU BID [facility] Last Admin: 10/19/17 11:05 Dose: 1 applic Atorvastatin Calcium (Lipitor -) 20 mg PO HS [facility] Last Admin: 10/18/17 22:03 Dose: 20 mg Digoxin (Lanoxin -) 0.125 mg PEG Q2D@1000 [facility] Last Admin: 10/18/17 09:59 Dose: 0.125 mg Diltiazem HCl 60 mg/ Diltiazem (HCl 30 mg) 90 mg NGT Q6HPO [facility] Last Admin: 10/19/17 17:40 Dose: 90 mg Enoxaparin Sodium (Lovenox -) 80 mg SQ BID [facility] Last Admin: 10/19/17 11:03 Dose: 80 mg Hydralazine HCl (Apresoline Injection -) 10 mg IVPUSH Q6H PRN PRN Reason: HYPERTENSION IV Flush (Picc Line Flush) 8 ml IVPUSH PRN PRN PRN Reason: Protocol Last Admin: 10/10/17 22:13 Dose: 8 ml Insulin Aspart (Novolog Vial Sliding Scale -) 1 vial SQ Q6H [facility] PRN Reason: Protocol Last Admin: 10/19/17 17:40 Dose: 6 units Insulin Detemir (Levemir Vial) 10 units SQ BID@0700,2200 [facility] Last Admin: 10/19/17 06:30 Dose: 10 units Metoprolol Tartrate (Lopressor Injection -) 5 mg IVPUSH Q4H PRN PRN Reason: HYPERTENSION Last Admin: 10/13/17 06:41 Dose: 5 mg Metoprolol Tartrate (Lopressor -) 50 mg NGT BID [facility] Last Admin: 10/19/17 11:04 Dose: 50 mg Mupirocin (Bactroban 2% Ointment -) 1 applic TP TID [facility] Last Admin: 10/19/17 17:43 Dose: Not Given Nystatin (Mycostatin Ointment -) 1 applic TP BID [facility] Last Admin: 10/19/17 11:05 Dose: 1 applic Ondansetron HCl (Zofran Injection) 4 mg IVPUSH Q6H PRN PRN Reason: NAUSEA Potassium Chloride (Potassium Chloride Oral Liquid) 40 meq PO DAILY [facility] Last Admin: 10/19/17 15:03 Dose: 40 meq Quetiapine Fumarate (Seroquel -) 25 mg PO HS [facility] Last Admin: 10/18/17 22:04 Dose: 25 mg Ranitidine HCl (Zantac -) 150 mg PO BID [facility] Last Admin: 10/19/17 11:04 Dose: 150 mg Trazodone HCl (Desyrel -) 50 mg PO [facility] Last Admin: 10/19/17 02:11 Dose: Not Given - Objective Vital Signs: Vital Signs Temperature 97.8 F 10/19/17 19:00 Pulse Rate 72 10/19/17 19:00 Respiratory Rate 18 10/19/17 20:57 Blood Pressure 151/73 10/19/17 19:00 O2 Sat by Pulse Oximetry (%) 99 10/18/17 21:00 Constitutional: Yes: Well Nourished, No Distress, Calm Cardiovascular: Yes: Regular Rate and Rhythm Respiratory: Yes: Mechanically Ventilated Gastrointestinal: Yes: Normal Bowel Sounds Musculoskeletal: Yes: WNL Extremities: Yes: WNL Edema: No Peripheral Pulses WNL: Yes Neurological: Yes: Alert Psychiatric: Yes: Alert Labs: CBC, BMP 10/18/17 21:10 10/19/17 00:10 INR, PTT INR 0.98 (0.82-1.09) 10/02/17 05:30 Problem List - Problems (1) Anemia Assessment/Plan: -stabilized -normal transfusion parameters Code(s): D64.9 - ANEMIA, UNSPECIFIED (2) Brain metastasis Code(s): C79.31 - SECONDARY MALIGNANT NEOPLASM OF BRAIN (3) Fever Assessment/Plan: -febrile this afternoon -seen by ID -metastatic CA is a factor as well -BC preliminary and CXR negative -UC pending Code(s): R50.9 - FEVER, UNSPECIFIED (4) Metastatic colorectal cancer Assessment/Plan: -PEG -palliative consult Code(s): C78.5 - SECONDARY MALIGNANT NEOPLASM OF LARGE INTESTINE AND RECTUM (5) Respiratory failure Assessment/Plan: s/p tracheotomy -ID and Pulmonary on board Code(s): J96.90 - RESPIRATORY FAILURE, UNSP, UNSP W HYPOXIA OR HYPERCAPNIA (6) Atrial fibrillation Assessment/Plan: -chronic -on eliquis Code(s): I48.91 - UNSPECIFIED ATRIAL FIBRILLATION Assessment/Plan see problem list
[2017-10-19] MEDS: ATORVASTATIN CA 20 MG TABLET (FP) PO SCH (22:27)
[2017-10-19] MEDS: QUEtiapine FUMARATE 25 MG TABLET (FP) PO SCH (22:27)
--- NOTE | 2017-10-19 22:57 | PN ---
Progress Note, Physician Chief Complaint: awake,on trach History of Present Illness: dm iddm,sp respiratory failure,respirator for support,awake alert wants to go home with trache, once able to tolerate weening of respirator,sugars still elevated - Current Medication List Current Medications: Active Medications Acetaminophen (Tylenol Oral Solution -) 650 mg PEG Q6H PRN PRN Reason: FEVER Last Admin: 10/19/17 15:03 Dose: 650 mg Albuterol/Ipratropium (Duoneb -) 1 amp NEB Q6H PRN PRN Reason: SHORTNESS OF BREATH Last Admin: 10/18/17 21:10 Dose: 1 amp Artificial Tears (Artificial Tears Ointment -) 1 applic OU BID [facility] Last Admin: 10/19/17 22:26 Dose: 1 applic Atorvastatin Calcium (Lipitor -) 20 mg PO HS [facility] Last Admin: 10/19/17 22:27 Dose: 20 mg Digoxin (Lanoxin -) 0.125 mg PEG Q2D@1000 [facility] Last Admin: 10/18/17 09:59 Dose: 0.125 mg Diltiazem HCl 60 mg/ Diltiazem (HCl 30 mg) 90 mg NGT Q6HPO [facility] Last Admin: 10/19/17 17:40 Dose: 90 mg Enoxaparin Sodium (Lovenox -) 80 mg SQ BID [facility] Last Admin: 10/19/17 22:27 Dose: 80 mg Hydralazine HCl (Apresoline Injection -) 10 mg IVPUSH Q6H PRN PRN Reason: HYPERTENSION IV Flush (Picc Line Flush) 8 ml IVPUSH PRN PRN PRN Reason: Protocol Last Admin: 10/10/17 22:13 Dose: 8 ml Insulin Aspart (Novolog Vial Sliding Scale -) 1 vial SQ Q6H [facility] PRN Reason: Protocol Last Admin: 10/19/17 17:40 Dose: 6 units Insulin Detemir (Levemir Vial) 12 units SQ BID@0700,2200 [facility] Metoprolol Tartrate (Lopressor Injection -) 5 mg IVPUSH Q4H PRN PRN Reason: HYPERTENSION Last Admin: 10/13/17 06:41 Dose: 5 mg Metoprolol Tartrate (Lopressor -) 50 mg NGT BID [facility] Last Admin: 10/19/17 22:27 Dose: 50 mg Mupirocin (Bactroban 2% Ointment -) 1 applic TP TID [facility] Last Admin: 10/19/17 22:26 Dose: 1 applic Nystatin (Mycostatin Ointment -) 1 applic TP BID [facility] Last Admin: 10/19/17 22:28 Dose: 1 applic Ondansetron HCl (Zofran Injection) 4 mg IVPUSH Q6H PRN PRN Reason: NAUSEA Potassium Chloride (Potassium Chloride Oral Liquid) 40 meq PO DAILY [facility] Last Admin: 10/19/17 15:03 Dose: 40 meq Quetiapine Fumarate (Seroquel -) 25 mg PO [facility] Last Admin: 10/19/17 22:27 Dose: 25 mg Ranitidine HCl (Zantac -) 150 mg PO BID [facility] Last Admin: 10/19/17 22:28 Dose: 150 mg Trazodone HCl (Desyrel -) 50 mg PO [facility] Last Admin: 10/19/17 22:27 Dose: 50 mg - Objective Vital Signs: Vital Signs Temperature 97.8 F 10/19/17 19:00 Pulse Rate 72 10/19/17 19:00 Respiratory Rate 18 10/19/17 20:57 Blood Pressure 151/73 10/19/17 19:00 O2 Sat by Pulse Oximetry (%) 99 10/18/17 21:00 Constitutional: Yes: Calm Eyes: Yes: EOM Intact HENT: Yes: Normocephalic Neck: Yes: Trachea Midline Cardiovascular: Yes: Regular Rate and Rhythm Respiratory: Yes: Mechanically Ventilated, Tachypnea Gastrointestinal: Yes: Normal Bowel Sounds Genitourinary: Yes: WNL Breast(s): Yes: WNL Musculoskeletal: Yes: WNL Extremities: Yes: WNL Labs: CBC, BMP 10/18/17 21:10 10/19/17 00:10 INR, PTT INR 0.98 (0.82-1.09) 10/02/17 05:30 Problem List - Problems (1) 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 Code(s): E10.3211 - TYPE 1 DIAB WITH MILD NONP RTNOP WITH MACULAR EDEMA, R EYE (2) Brain metastasis Code(s): C79.31 - SECONDARY MALIGNANT NEOPLASM OF BRAIN (3) CVA (cerebral vascular accident) Code(s): I63.9 - CEREBRAL INFARCTION, UNSPECIFIED Qualifiers: Laterality of affected vessel: unspecified (4) Headache Code(s): R51 - HEADACHE Qualifiers: Headache chronicity pattern: unspecified pattern Intractability: intractable (5) Hypercapnia Code(s): R06.89 - OTHER ABNORMALITIES OF BREATHING (6) Metastatic colorectal cancer Code(s): C78.5 - SECONDARY MALIGNANT NEOPLASM OF LARGE INTESTINE AND RECTUM (7) SUSAN (acute kidney injury) Code(s): N17.9 - ACUTE KIDNEY FAILURE, UNSPECIFIED Assessment/Plan Current Active Problems Anemia (Acute) Brain metastasis (Acute) CVA (cerebral vascular accident) (Acute) Sheeba infection (Acute) Fever (Acute) Fever (Acute) Headache (Acute) Hypercapnia (Acute) Hypernatremia (Acute) Hypomagnesemia (Acute) Intractable vomiting with nausea (Acute) Metastatic colorectal cancer (Acute) Pleural effusion (Acute) Pneumonia (Acute) Respiratory failure (Acute) 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 (Acute) UTI (urinary tract infection) (Acute) Ventilator dependent (Acute) Weakness due to acute cerebrovascular accident (CVA) (Acute) Abnormal Lab Results 10/19/17 10/19/17 10/19/17 00:00 00:10 03:00 Random Glucose 465 H* Creatine Kinase 25 L Urine Protein 3+ H Urine Glucose (UA) 3+ H Laboratory Results - last 24 hr 10/18/17 10/19/17 10/19/17 23:36 00:00 00:10 POC Glucometer 427 Random Glucose 465 H* Creatine Kinase Troponin I Urine Color Ltyellow Urine Appearance Clear Urine pH 7.0 D Ur Specific [place] 1.014 Urine Protein 3+ H Urine Glucose (UA) 3+ H Urine Ketones Negative Urine Blood Negative Urine Nitrite Negative Urine Bilirubin Negative Urine Urobilinogen Negative Ur Leukocyte Esterase Negative Urine WBC (Auto) 2 Urine RBC (Auto) 1 Hyaline Casts 1 10/19/17 10/19/17 10/19/17 03:00 05:34 11:43 POC Glucometer 353 305 Random Glucose Creatine Kinase 25 L Troponin I 0.02 Urine Color Urine Appearance Urine pH Ur Specific [place] Urine Protein Urine Glucose (UA) Urine Ketones Urine Blood Urine Nitrite Urine Bilirubin Urine Urobilinogen Ur Leukocyte Esterase Urine WBC (Auto) Urine RBC (Auto) Hyaline Casts 10/19/17 10/19/17 17:37 21:46 POC Glucometer 273 281 Random Glucose Creatine Kinase Troponin I Urine Color Urine Appearance Urine pH Ur Specific [place] Urine Protein Urine Glucose (UA) Urine Ketones Urine Blood Urine Nitrite Urine Bilirubin Urine Urobilinogen Ur Leukocyte Esterase Urine WBC (Auto) Urine RBC (Auto) Hyaline Casts Laboratory Tests 10/19/17 10/19/17 10/19/17 05:34 11:43 17:37 POC Glucometer 353 305 273 10/19/17 21:46 POC Glucometer 281 plan: levemir 20 units am levemir 15 units pm continue achs novolog coverage
[2017-10-20] MEDS ORDERED: dilTIAZem HCL 60 MG TABLET (FP) ONE ×3 (04:36→17:14)
[2017-10-20] MEDS ORDERED: dilTIAZem HCL 30 MG TABLET (FP) ONE ×3 (04:36→17:14)
[2017-10-20] MEDS: DILTIAZEM 60 MG, DILTIAZEM 30 MG NGT SCH ×3 (05:06→17:51)
[2017-10-20] MEDS: MUPIROCIN 2% TOPICAL OINTMENT 22 GM TUBE TP SCH ×3 (05:07→22:20)
[2017-10-20] MEDS: INSULIN DETEMIR 100 UNITS/ML MDV SQ SCH ×2 (06:12→22:22)
[2017-10-20] MEDS: INSULIN SLIDING SCALE (NOVOLOG) 1 VIAL SQ SCH ×3 (06:40→17:50)
[2017-10-20] MEDS ORDERED: PT OWN MED DRAWER 7, Y5N ONE ×4 (10:35→13:15)
[2017-10-20] MEDS: ENOXAPARIN NA (PORCINE) 80 MG/0.8 ML DISP.SYRIN SQ SCH ×2 (10:37→22:21)
[2017-10-20] MEDS: METOPROLOL TARTRATE 50 MG TABLET (FP) NGT SCH ×2 (10:44→22:22)
[2017-10-20] MEDS: DIGOXIN 0.125 MG TABLET (FP) PEG SCH (10:44)
[2017-10-20] MEDS: POTASSIUM CHLORIDE ORAL LIQUID 20 MEQ/15 ML PO SCH (10:44)
[2017-10-20] MEDS: RANITIDINE HCL 150 MG TABLET (FP) PO SCH ×2 (10:45→22:21)
[2017-10-20] MEDS: ACETAMINOPHEN 650 MG/20.3 ML ORAL SOLUTION (CUPS) PEG PRN ×2 (10:45→22:23)
[2017-10-20] MEDS: NYSTATIN 100000 UNIT/GM TOPICAL OINTMENT 15 GM TUBE TP SCH ×2 (10:47→22:20)
--- NOTE | 2017-10-20 11:40 | PN ---
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 Lethargic. Insufficient participation for PMV trial.
--- NOTE | 2017-10-20 12:34 | PN ---
Progress Note (short form) - Note Progress Note: Lethargic on AC Mode of vent. No acute events overnight. Intake & Output 10/17/17 10/18/17 10/19/17 10/20/17 23:59 23:59 23:59 23:59 Intake Total 5291 807 3987 Balance 4728 389 1698 Last Vital Signs Temp Pulse Resp BP Pulse Ox 98.4 F 96 H 15 152/87 98 10/20/17 09:00 10/20/17 10:44 10/20/17 09:45 10/20/17 09:00 10/20/17 09:50 Active Medications Acetaminophen (Tylenol Oral Solution -) 650 mg PEG Q6H PRN PRN Reason: FEVER Last Admin: 10/20/17 10:45 Dose: 650 mg Albuterol/Ipratropium (Duoneb -) 1 amp NEB Q6H PRN PRN Reason: SHORTNESS OF BREATH Last Admin: 10/18/17 21:10 Dose: 1 amp Artificial Tears (Artificial Tears Ointment -) 1 applic OU BID [facility] Last Admin: 10/19/17 22:26 Dose: 1 applic Atorvastatin Calcium (Lipitor -) 20 mg PO HS [facility] Last Admin: 10/19/17 22:27 Dose: 20 mg Digoxin (Lanoxin -) 0.125 mg PEG Q2D@1000 [facility] Last Admin: 10/20/17 10:44 Dose: 0.125 mg Diltiazem HCl 60 mg/ Diltiazem (HCl 30 mg) 90 mg NGT Q6HPO [facility] Last Admin: 10/20/17 12:21 Dose: 90 mg Enoxaparin Sodium (Lovenox -) 80 mg SQ BID [facility] Last Admin: 10/20/17 10:37 Dose: Not Given Hydralazine HCl (Apresoline Injection -) 10 mg IVPUSH Q6H PRN PRN Reason: HYPERTENSION IV Flush (Picc Line Flush) 8 ml IVPUSH PRN PRN PRN Reason: Protocol Last Admin: 10/10/17 22:13 Dose: 8 ml Insulin Aspart (Novolog Vial Sliding Scale -) 1 vial SQ Q6H [facility] PRN Reason: Protocol Last Admin: 10/20/17 12:21 Dose: 6 units Insulin Detemir (Levemir Vial) 20 units SQ AM [facility] Last Admin: 10/20/17 06:12 Dose: 20 units Insulin Detemir (Levemir Vial) 15 units SQ [facility] Metoprolol Tartrate (Lopressor Injection -) 5 mg IVPUSH Q4H PRN PRN Reason: HYPERTENSION Last Admin: 10/13/17 06:41 Dose: 5 mg Metoprolol Tartrate (Lopressor -) 50 mg NGT BID [facility] Last Admin: 10/20/17 10:44 Dose: 50 mg Mupirocin (Bactroban 2% Ointment -) 1 applic TP TID [facility] Last Admin: 10/20/17 05:07 Dose: 1 applic Nystatin (Mycostatin Ointment -) 1 applic TP BID [facility] Last Admin: 10/20/17 10:47 Dose: 1 applic Ondansetron HCl (Zofran Injection) 4 mg IVPUSH Q6H PRN PRN Reason: NAUSEA Potassium Chloride (Potassium Chloride Oral Liquid) 40 meq PO DAILY [facility] Last Admin: 10/20/17 10:44 Dose: 40 meq Quetiapine Fumarate (Seroquel -) 25 mg PO [facility] Last Admin: 10/19/17 22:27 Dose: 25 mg Ranitidine HCl (Zantac -) 150 mg PO BID [facility] Last Admin: 10/20/17 10:45 Dose: 150 mg Trazodone HCl (Desyrel -) 50 mg PO [facility] Last Admin: 10/19/17 22:27 Dose: 50 mg Gen: Trached and vented, lethargic Neck: Improved localized erythema around Trach site Heart: RRR Lung: few scattered rhonchi Abd: soft, nontender Ext: + edema Laboratory Results - last 24 hr 10/19/17 10/19/17 10/20/17 17:37 21:46 05:21 POC Glucometer 273 281 415 Random Glucose 10/20/17 05:30 POC Glucometer Random Glucose 395 H* ASSESSMENT AND PLAN: Multiple Acute Embolic CVA Acute Hypoxic Respiratory Failure r/o Aspiration Pneumonia Atrial Fibrillation with RVR Metastatic Colon Ca to Lung Acute on Chronic Renal Failure Hyperkalemia HTN DM Hypercholesterolemia - Currently off ABX - Enteral feeds - Rate control - Lovenox BID - GI prophylaxis - Local skin care to Trach area with Bactroban - For thoracentesis - AC Mode of vent Dr Kaplan
--- NOTE | 2017-10-20 13:44 | PN ---
Progress Note, Physician Chief Complaint: patient sleepy today cannot do PMV today awiating thorcaocentesis tmw lovenox stopped - Current Medication List Current Medications: Active Medications Acetaminophen (Tylenol Oral Solution -) 650 mg PEG Q6H PRN PRN Reason: FEVER Last Admin: 10/20/17 10:45 Dose: 650 mg Albuterol/Ipratropium (Duoneb -) 1 amp NEB Q6H PRN PRN Reason: SHORTNESS OF BREATH Last Admin: 10/18/17 21:10 Dose: 1 amp Artificial Tears (Artificial Tears Ointment -) 1 applic OU BID [facility] Last Admin: 10/19/17 22:26 Dose: 1 applic Atorvastatin Calcium (Lipitor -) 20 mg PO HS [facility] Last Admin: 10/19/17 22:27 Dose: 20 mg Digoxin (Lanoxin -) 0.125 mg PEG Q2D@1000 [facility] Last Admin: 10/20/17 10:44 Dose: 0.125 mg Diltiazem HCl 60 mg/ Diltiazem (HCl 30 mg) 90 mg NGT Q6HPO [facility] Last Admin: 10/20/17 12:21 Dose: 90 mg Enoxaparin Sodium (Lovenox -) 80 mg SQ BID [facility] Last Admin: 10/20/17 10:37 Dose: Not Given Hydralazine HCl (Apresoline Injection -) 10 mg IVPUSH Q6H PRN PRN Reason: HYPERTENSION IV Flush (Picc Line Flush) 8 ml IVPUSH PRN PRN PRN Reason: Protocol Last Admin: 10/10/17 22:13 Dose: 8 ml Insulin Aspart (Novolog Vial Sliding Scale -) 1 vial SQ Q6H [facility] PRN Reason: Protocol Last Admin: 10/20/17 12:21 Dose: 6 units Insulin Detemir (Levemir Vial) 20 units SQ AM [facility] Last Admin: 10/20/17 06:12 Dose: 20 units Insulin Detemir (Levemir Vial) 15 units SQ HS [facility] Metoprolol Tartrate (Lopressor Injection -) 5 mg IVPUSH Q4H PRN PRN Reason: HYPERTENSION Last Admin: 10/13/17 06:41 Dose: 5 mg Metoprolol Tartrate (Lopressor -) 50 mg NGT BID [facility] Last Admin: 10/20/17 10:44 Dose: 50 mg Mupirocin (Bactroban 2% Ointment -) 1 applic TP TID [facility] Last Admin: 10/20/17 05:07 Dose: 1 applic Nystatin (Mycostatin Ointment -) 1 applic TP BID [facility] Last Admin: 10/20/17 10:47 Dose: 1 applic Ondansetron HCl (Zofran Injection) 4 mg IVPUSH Q6H PRN PRN Reason: NAUSEA Potassium Chloride (Potassium Chloride Oral Liquid) 40 meq PO DAILY [facility] Last Admin: 10/20/17 10:44 Dose: 40 meq Quetiapine Fumarate (Seroquel -) 25 mg PO [facility] Last Admin: 10/19/17 22:27 Dose: 25 mg Ranitidine HCl (Zantac -) 150 mg PO BID [facility] Last Admin: 10/20/17 10:45 Dose: 150 mg Trazodone HCl (Desyrel -) 50 mg PO [facility] Last Admin: 10/19/17 22:27 Dose: 50 mg - Objective Vital Signs: Vital Signs Temperature 98.4 F 10/20/17 09:00 Pulse Rate 96 H 10/20/17 10:44 Respiratory Rate 15 10/20/17 09:45 Blood Pressure 152/87 10/20/17 09:00 O2 Sat by Pulse Oximetry (%) 98 10/20/17 09:50 Constitutional: Yes: Calm Neck: Yes: Other (trach) Cardiovascular: Yes: Regular Rate and Rhythm, S1, S2 Respiratory: Yes: CTA Bilaterally, Mechanically Ventilated Gastrointestinal: Yes: Normal Bowel Sounds, Soft, Other (peg) Edema: No Labs: CBC, BMP 10/18/17 21:10 10/20/17 05:30 INR, PTT INR 0.98 (0.82-1.09) 10/02/17 05:30 Problem List - Problems (1) Hypomagnesemia Assessment/Plan: recheck labs today Code(s): E83.42 - HYPOMAGNESEMIA (2) Fever Assessment/Plan: off abx for now temp 100.2 today plan for thoracocentesis on friday hold lovenox on friday morning Code(s): R50.9 - FEVER, UNSPECIFIED (3) UTI (urinary tract infection) Assessment/Plan: Microbiology 10/09/17 04:30 Urine - Urine - Catheterized Urine Culture - Final Pseudomonas Aeruginosa ceftazidime- course done Code(s): N39.0 - URINARY TRACT INFECTION, SITE NOT SPECIFIED (4) Sheeba infection Assessment/Plan: diflucan 200mg daily- completed topical antifungal cream to groin Code(s): B37.9 - CANDIDIASIS, UNSPECIFIED (5) Respiratory failure Assessment/Plan: s/p tracheostomy vent support bactroban to trach site PMV today MBS once better possibly friday Code(s): J96.90 - RESPIRATORY FAILURE, UNSP, UNSP W HYPOXIA OR HYPERCAPNIA (6) Pneumonia Assessment/Plan: iv zosyn s/p 8 day course abx stopped Code(s): J18.9 - PNEUMONIA, UNSPECIFIED ORGANISM (7) Atrial fibrillation Assessment/Plan: digoxin,cardizem and metoprolol eliquis stopped on lovenox Code(s): I48.91 - UNSPECIFIED ATRIAL FIBRILLATION (8) Anemia Assessment/Plan: ppi GI follow up noted Code(s): D64.9 - ANEMIA, UNSPECIFIED (9) Diabetes Assessment/Plan: insulin bgm ok for now Code(s): E11.9 - TYPE 2 DIABETES MELLITUS WITHOUT COMPLICATIONS Qualifiers: Diabetes mellitus type: type 2 (10) CVA (cerebral vascular accident) Assessment/Plan: S/p multiple acute embolic infarcts - s/p trach on vent s/p peg now needs snf placement Code(s): I63.9 - CEREBRAL INFARCTION, UNSPECIFIED Qualifiers: Laterality of affected vessel: unspecified Assessment/Plan PMV can be tried later once patient more awake thoracocentesis tmw stop lovenox recheck mag level today
[2017-10-20] MEDS: MINERAL OIL/PETROLATUM,WHITE 3.5 GM TUBE OU SCH ×2 (13:50→22:19)
--- NOTE | 2017-10-20 14:43 | PN ---
Progress Note, Physician History of Present Illness: Pt seen and examined at bedside. She responds to verbal stimuli. Care was discussed with her daughter at bedside. - Current Medication List Current Medications: Active Medications Acetaminophen (Tylenol Oral Solution -) 650 mg PEG Q6H PRN PRN Reason: FEVER Last Admin: 10/20/17 10:45 Dose: 650 mg Albuterol/Ipratropium (Duoneb -) 1 amp NEB Q6H PRN PRN Reason: SHORTNESS OF BREATH Last Admin: 10/18/17 21:10 Dose: 1 amp Artificial Tears (Artificial Tears Ointment -) 1 applic OU BID [facility] Last Admin: 10/20/17 13:50 Dose: 1 applic Atorvastatin Calcium (Lipitor -) 20 mg PO HS [facility] Last Admin: 10/19/17 22:27 Dose: 20 mg Digoxin (Lanoxin -) 0.125 mg PEG Q2D@1000 [facility] Last Admin: 10/20/17 10:44 Dose: 0.125 mg Diltiazem HCl 60 mg/ Diltiazem (HCl 30 mg) 90 mg NGT Q6HPO [facility] Last Admin: 10/20/17 12:21 Dose: 90 mg Enoxaparin Sodium (Lovenox -) 80 mg SQ BID [facility] Last Admin: 10/20/17 10:37 Dose: Not Given Hydralazine HCl (Apresoline Injection -) 10 mg IVPUSH Q6H PRN PRN Reason: HYPERTENSION IV Flush (Picc Line Flush) 8 ml IVPUSH PRN PRN PRN Reason: Protocol Last Admin: 10/10/17 22:13 Dose: 8 ml Insulin Aspart (Novolog Vial Sliding Scale -) 1 vial SQ Q6H [facility] PRN Reason: Protocol Last Admin: 10/20/17 12:21 Dose: 6 units Insulin Detemir (Levemir Vial) 20 units SQ AM [facility] Last Admin: 10/20/17 06:12 Dose: 20 units Insulin Detemir (Levemir Vial) 15 units SQ HS [facility] Metoprolol Tartrate (Lopressor Injection -) 5 mg IVPUSH Q4H PRN PRN Reason: HYPERTENSION Last Admin: 10/13/17 06:41 Dose: 5 mg Metoprolol Tartrate (Lopressor -) 50 mg NGT BID [facility] Last Admin: 10/20/17 10:44 Dose: 50 mg Mupirocin (Bactroban 2% Ointment -) 1 applic TP TID [facility] Last Admin: 10/20/17 13:50 Dose: 1 applic Nystatin (Mycostatin Ointment -) 1 applic TP BID [facility] Last Admin: 10/20/17 10:47 Dose: 1 applic Ondansetron HCl (Zofran Injection) 4 mg IVPUSH Q6H PRN PRN Reason: NAUSEA Potassium Chloride (Potassium Chloride Oral Liquid) 40 meq PO DAILY [facility] Last Admin: 10/20/17 10:44 Dose: 40 meq Quetiapine Fumarate (Seroquel -) 25 mg PO HS [facility] Last Admin: 10/19/17 22:27 Dose: 25 mg Ranitidine HCl (Zantac -) 150 mg PO BID [facility] Last Admin: 10/20/17 10:45 Dose: 150 mg Trazodone HCl (Desyrel -) 50 mg PO [facility] Last Admin: 10/19/17 22:27 Dose: 50 mg - Objective Vital Signs: Vital Signs Temperature 98.4 F 10/20/17 09:00 Pulse Rate 96 H 10/20/17 10:44 Respiratory Rate 17 10/20/17 14:05 Blood Pressure 152/87 10/20/17 09:00 O2 Sat by Pulse Oximetry (%) 98 10/20/17 09:50 Constitutional: Yes: Calm Eyes: Yes: Conjunctiva Clear HENT: Yes: Atraumatic Neck: Yes: Other (trache) Cardiovascular: Yes: S1, S2 Respiratory: Yes: Mechanically Ventilated Gastrointestinal: Yes: Soft, Other (peg) Genitourinary: Yes: Incontinence Edema: No Neurological: Yes: Oriented Labs: CBC, BMP 10/18/17 21:10 10/20/17 05:30 INR, PTT INR 0.98 (0.82-1.09) 10/02/17 05:30 Problem List - Problems (1) Brain metastasis Code(s): C79.31 - SECONDARY MALIGNANT NEOPLASM OF BRAIN (2) Headache Code(s): R51 - HEADACHE Qualifiers: Headache chronicity pattern: unspecified pattern Intractability: intractable (3) Metastatic colorectal cancer Code(s): C78.5 - SECONDARY MALIGNANT NEOPLASM OF LARGE INTESTINE AND RECTUM (4) SUSAN (acute kidney injury) Code(s): N17.9 - ACUTE KIDNEY FAILURE, UNSPECIFIED (5) Atrial fibrillation Code(s): I48.91 - UNSPECIFIED ATRIAL FIBRILLATION (6) Cancer, colon Code(s): C18.9 - MALIGNANT NEOPLASM OF COLON, UNSPECIFIED Qualifiers: Colon location: unspecified part of colon Qualified Code(s): C18.9 - Malignant neoplasm of colon, unspecified (7) Lung mass Code(s): R91.8 - OTHER NONSPECIFIC ABNORMAL FINDING OF LUNG FIELD Assessment/Plan Current Medications Generic Name Dose Route Start Last Admin Trade Name Freq PRN Reason Stop Dose Admin Acetaminophen 650 mg 10/06/17 20:09 10/20/17 10:45 Tylenol Oral Solution - PEG 650 mg Q6H PRN Administration FEVER Albuterol/Ipratropium 1 amp 10/18/17 20:50 10/18/17 21:10 Duoneb - NEB 1 amp Q6H PRN Administration SHORTNESS OF BREATH Artificial Tears 1 applic 10/06/17 22:00 10/20/17 13:50 Artificial Tears Ointment - OU 1 applic BID [facility] Administration Atorvastatin Calcium 20 mg 10/06/17 22:00 10/19/17 22:27 Lipitor - PO 20 mg HS [facility] Administration Digoxin 0.125 mg 10/08/17 10:00 10/20/17 10:44 Lanoxin - PEG 0.125 mg Q2D@1000 [facility] Administration Diltiazem HCl 60 mg/ Diltiazem 90 mg 10/07/17 00:00 10/20/17 12:21 HCl 30 mg NGT 90 mg Q6HPO [facility] Administration Enoxaparin Sodium 80 mg 10/17/17 10:00 10/20/17 10:37 Lovenox - SQ Not Given BID [facility] Hydralazine HCl 10 mg 10/06/17 20:09 Apresoline Injection - IVPUSH Q6H PRN HYPERTENSION IV Flush 8 ml 10/09/17 11:32 10/10/17 22:13 Picc Line Flush IVPUSH 8 ml PRN PRN Administration Protocol Insulin Aspart 1 vial 10/07/17 00:00 10/20/17 12:21 Novolog Vial Sliding Scale - SQ 6 units Q6H [facility] Administration Protocol Insulin Detemir 20 units 10/20/17 07:00 10/20/17 06:12 Levemir Vial SQ 20 units AM [facility] Administration Insulin Detemir 15 units 10/20/17 22:00 Levemir Vial SQ HS [facility] Metoprolol Tartrate 5 mg 10/06/17 20:09 10/13/17 06:41 Lopressor Injection - IVPUSH 5 mg Q4H PRN Administration HYPERTENSION Metoprolol Tartrate 50 mg 10/07/17 10:00 10/20/17 10:44 Lopressor - NGT 50 mg BID [facility] Administration Mupirocin 1 applic 10/09/17 14:00 10/20/17 13:50 Bactroban 2% Ointment - TP 1 applic TID [facility] Administration Nystatin 1 applic 10/06/17 22:00 10/20/17 10:47 Mycostatin Ointment - TP 1 applic BID [facility] Administration Ondansetron HCl 4 mg 10/06/17 20:09 Zofran Injection IVPUSH Q6H PRN NAUSEA Potassium Chloride 40 meq 10/19/17 15:00 10/20/17 10:44 Potassium Chloride Oral Liquid PO 40 meq DAILY [facility] Administration Quetiapine Fumarate 25 mg 10/06/17 22:00 10/19/17 22:27 Seroquel - PO 25 mg HS [facility] Administration Ranitidine HCl 150 mg 10/06/17 22:00 10/20/17 10:45 Zantac - PO 150 mg BID [facility] Administration Trazodone HCl 50 mg 10/06/17 22:00 10/19/17 22:27 Desyrel - PO 50 mg HS [facility] Administration Impression 1. CKD 2. SUSAN 3. DM 4. htn 5. chol 6. chemo port malfunction 7. a-fib 8. lung mass 9. proteinuria 10. adenocarcinoma 11. CVA 12. acute resp failure 13. hyperkalemia 14. hypernatremia 15. pleural effusions Plan - discussed with daughter - repeat labs in am to check renal function - pulmonary rehab - will review labs in am - vent support - check mag - will follow PRN Dr Llanos
[2017-10-20 16:28] LABS: ANION GAP 5 (8-16); BLOOD UREA NITROGEN 29 mg/dL (7-18); CALCIUM 8.1 mg/dL (8.5-10.1); CHLORIDE 106 mmol/L (98-107); CO2 28 mmol/L (21-32); CREATININE 1.1 mg/dL (0.55-1.02); GLUCOSE,RANDOM 183 mg/dL (74-106); MAGNESIUM 1.9 mg/dL (1.8-2.4); POTASSIUM 4.2 mmol/L (3.5-5.1); SODIUM 139 mmol/L (136-145)
[2017-10-20] MEDS: traZODone HCL 50 MG TABLET (FP) PO SCH (22:21)
[2017-10-20] MEDS: ATORVASTATIN CA 20 MG TABLET (FP) PO SCH (22:21)
[2017-10-20] MEDS: QUEtiapine FUMARATE 25 MG TABLET (FP) PO SCH (22:23)
--- NOTE | 2017-10-20 23:32 | EKG ---
Test Reason : Blood Pressure : / mmHG Vent. Rate : 095 BPM Atrial Rate : 095 BPM P-R Int : 124 ms QRS Dur : 076 ms QT Int : 324 ms P-R-T Axes : 074 054 222 degrees QTc Int : 407 ms NORMAL SINUS RHYTHM ABNORMAL ECG WHEN COMPARED WITH ECG OF 04-OCT-2017 14:45, NO SIGNIFICANT CHANGE WAS FOUND Confirmed by VICENTE SHANE MD ([id number]) on 10/20/2017 11:32:13 PM Referred By: Confirmed By:VICENTE SHANE MD
[2017-10-21] MEDS: INSULIN SLIDING SCALE (NOVOLOG) 1 VIAL SQ SCH ×4 (00:45→17:01)
[2017-10-21] MEDS ORDERED: dilTIAZem HCL 60 MG TABLET (FP) ONE ×4 (00:49→22:54)
[2017-10-21] MEDS ORDERED: dilTIAZem HCL 30 MG TABLET (FP) ONE ×4 (00:49→22:54)
[2017-10-21] MEDS: DILTIAZEM 60 MG, DILTIAZEM 30 MG NGT SCH ×4 (00:51→17:00)
[2017-10-21] MEDS: MUPIROCIN 2% TOPICAL OINTMENT 22 GM TUBE TP SCH ×3 (05:55→22:21)
[2017-10-21] MEDS: INSULIN DETEMIR 100 UNITS/ML MDV SQ SCH ×2 (06:05→22:23)
[2017-10-21] MEDS: ALBUTEROL SO4 2.5/IPRATROPIUM 0.5 INH SOL 3 ML VIAL.NEB. NEB PRN ×3 (07:50→21:13)
[2017-10-21 08:39] LABS: ALBUMIN 1.8 g/dl (3.4-5.0); ANION GAP 7 (8-16); BLOOD UREA NITROGEN 34 mg/dL (7-18); CHLORIDE 103 mmol/L (98-107); CO2 26 mmol/L (21-32); GLUCOSE,RANDOM 290 mg/dL (74-106); MAGNESIUM 1.9 mg/dL (1.8-2.4); SODIUM 136 mmol/L (136-145)
[2017-10-21 08:42] LABS: ALK PHOS 121 U/L (45-117); BILIRUBIN,TOTAL 0.7 mg/dL (0.2-1.0); CREATININE 1.3 mg/dL (0.55-1.02); SGOT/AST 46 U/L (15-37); SGPT/ALT 56 U/L (12-78); TOT PROT 5.2 g/dl (6.4-8.2)
[2017-10-21] MEDS: ENOXAPARIN NA (PORCINE) 80 MG/0.8 ML DISP.SYRIN SQ SCH ×2 (10:00→22:22)
[2017-10-21] MEDS ORDERED: PT OWN MED DRAWER 7, Y5N ONE (10:20)
[2017-10-21] MEDS: RANITIDINE HCL 150 MG TABLET (FP) PO SCH (10:31)
[2017-10-21] MEDS: METOPROLOL TARTRATE 50 MG TABLET (FP) NGT SCH ×2 (10:31→22:22)
[2017-10-21] MEDS: POTASSIUM CHLORIDE ORAL LIQUID 20 MEQ/15 ML PO SCH (10:31)
--- NOTE | 2017-10-21 10:59 | PN ---
Progress Note, Physician Chief Complaint: patient awaiting for thoracocentesis today trial of PMV for today - Current Medication List Current Medications: Active Medications Acetaminophen (Tylenol Oral Solution -) 650 mg PEG Q6H PRN PRN Reason: FEVER Last Admin: 10/20/17 22:23 Dose: 650 mg Albuterol/Ipratropium (Duoneb -) 1 amp NEB Q6H PRN PRN Reason: SHORTNESS OF BREATH Last Admin: 10/21/17 07:50 Dose: 1 amp Artificial Tears (Artificial Tears Ointment -) 1 applic OU BID [facility] Last Admin: 10/20/17 22:19 Dose: 1 applic Atorvastatin Calcium (Lipitor -) 20 mg PO HS [facility] Last Admin: 10/20/17 22:21 Dose: 20 mg Digoxin (Lanoxin -) 0.125 mg PEG Q2D@1000 [facility] Last Admin: 10/20/17 10:44 Dose: 0.125 mg Diltiazem HCl 60 mg/ Diltiazem (HCl 30 mg) 90 mg NGT Q6HPO [facility] Last Admin: 10/21/17 05:55 Dose: 90 mg Enoxaparin Sodium (Lovenox -) 80 mg SQ BID [facility] Last Admin: 10/21/17 10:00 Dose: Not Given Hydralazine HCl (Apresoline Injection -) 10 mg IVPUSH Q6H PRN PRN Reason: HYPERTENSION IV Flush (Picc Line Flush) 8 ml IVPUSH PRN PRN PRN Reason: Protocol Last Admin: 10/10/17 22:13 Dose: 8 ml Insulin Aspart (Novolog Vial Sliding Scale -) 1 vial SQ Q6H [facility] PRN Reason: Protocol Last Admin: 10/21/17 06:05 Dose: 8 units Insulin Detemir (Levemir Vial) 20 units SQ AM [facility] Last Admin: 10/21/17 06:05 Dose: 20 units Insulin Detemir (Levemir Vial) 15 units SQ HS [facility] Last Admin: 10/20/17 22:22 Dose: 15 units Metoprolol Tartrate (Lopressor Injection -) 5 mg IVPUSH Q4H PRN PRN Reason: HYPERTENSION Last Admin: 10/13/17 06:41 Dose: 5 mg Metoprolol Tartrate (Lopressor -) 50 mg NGT BID [facility] Last Admin: 02/13/18 10:31 Dose: 50 mg Mupirocin (Bactroban 2% Ointment -) 1 applic TP TID [facility] Last Admin: 10/21/17 05:55 Dose: 1 applic Nystatin (Mycostatin Ointment -) 1 applic TP BID [facility] Last Admin: 10/20/17 22:20 Dose: 1 applic Ondansetron HCl (Zofran Injection) 4 mg IVPUSH Q6H PRN PRN Reason: NAUSEA Potassium Chloride (Potassium Chloride Oral Liquid) 40 meq PO DAILY [facility] Last Admin: 10/21/17 10:31 Dose: 40 meq Quetiapine Fumarate (Seroquel -) 25 mg PO HS [facility] Last Admin: 10/20/17 22:23 Dose: 25 mg Ranitidine HCl (Zantac -) 150 mg PO BID [facility] Last Admin: 10/21/17 10:31 Dose: 150 mg Trazodone HCl (Desyrel -) [address] [facility] Last Admin: 10/20/17 22:21 Dose: 50 mg - Objective Vital Signs: Vital Signs Temperature 99.0 F 10/21/17 10:00 Pulse Rate 83 10/21/17 10:00 Respiratory Rate 20 10/21/17 10:00 Blood Pressure 133/71 10/21/17 10:00 O2 Sat by Pulse Oximetry (%) 98 10/20/17 22:00 Constitutional: Yes: Calm Neck: Yes: Other (trach) Cardiovascular: Yes: Regular Rate and Rhythm, S1, S2 Respiratory: Yes: CTA Bilaterally, Diminished (at bases), Mechanically Ventilated Gastrointestinal: Yes: Normal Bowel Sounds, Soft Neurological: Yes: Alert (mouths words appropriate response to question asked) Labs: CBC, BMP 10/18/17 21:10 10/21/17 07:00 INR, PTT INR 0.98 (0.82-1.09) 10/02/17 05:30 Problem List - Problems (1) Hypomagnesemia Assessment/Plan: now magnesium normal Code(s): E83.42 - HYPOMAGNESEMIA (2) Fever Assessment/Plan: today temp 99 Code(s): R50.9 - FEVER, UNSPECIFIED (3) UTI (urinary tract infection) Assessment/Plan: Microbiology 10/09/17 04:30 Urine - Urine - Catheterized Urine Culture - Final Pseudomonas Aeruginosa ceftazidime- course done Code(s): N39.0 - URINARY TRACT INFECTION, SITE NOT SPECIFIED (4) Sheeba infection Assessment/Plan: diflucan 200mg daily- completed topical antifungal cream to groin- completed Code(s): B37.9 - CANDIDIASIS, UNSPECIFIED (5) Respiratory failure Assessment/Plan: s/p tracheostomy vent support- AC mode bactroban to trach site PMV trial as tolerated MBS later this week Code(s): J96.90 - RESPIRATORY FAILURE, UNSP, UNSP W HYPOXIA OR HYPERCAPNIA (6) Pneumonia Assessment/Plan: iv zosyn s/p 8 day course abx stopped Code(s): J18.9 - PNEUMONIA, UNSPECIFIED ORGANISM (7) Atrial fibrillation Assessment/Plan: digoxin,cardizem and metoprolol eliquis stopped on lovenox- for thoracocentesis Code(s): I48.91 - UNSPECIFIED ATRIAL FIBRILLATION (8) Anemia Assessment/Plan: ppi h/h stable iron panel pending GI follow up noted Code(s): D64.9 - ANEMIA, UNSPECIFIED (9) Diabetes Assessment/Plan: insulin bgm ok for now Code(s): E11.9 - TYPE 2 DIABETES MELLITUS WITHOUT COMPLICATIONS Qualifiers: Diabetes mellitus type: type 2 (10) CVA (cerebral vascular accident) Assessment/Plan: S/p multiple acute embolic infarcts - s/p trach on vent s/p peg now needs snf placement Code(s): I63.9 - CEREBRAL INFARCTION, UNSPECIFIED Qualifiers: Laterality of affected vessel: unspecified Assessment/Plan awaiting thoracocentesis PMV trial today
[2017-10-21] MEDS ORDERED: INSULIN (NOVOLOG) ASPART 100 UNITS/ML 10ML VIAL ONE (11:47)
[2017-10-21] MEDS: MINERAL OIL/PETROLATUM,WHITE 3.5 GM TUBE OU SCH ×2 (11:55→22:20)
[2017-10-21] MEDS: NYSTATIN 100000 UNIT/GM TOPICAL OINTMENT 15 GM TUBE TP SCH ×2 (11:55→22:21)
--- NOTE | 2017-10-21 13:19 | PN ---
Progress Note (short form) - Note Progress Note: Awake and interactive on CPAP. Reviewing the CXR from previous days -> May not have enough effusion for thoracentesis. Repeat CXR reviewed with IR. No significant effusion to risk thoracentesis. Intake & Output 10/18/17 10/19/1718 10/21/17 23:59 23:59 23:59 23:59 Intake Total 950 2190 1650 160 Balance 950 2190 1650 160 Last Vital Signs Temp Pulse Resp BP Pulse Ox 99.0 F 83 18 133/71 98 10/21/17 10:00 10/21/17 10:00 10/21/17 12:17 10/21/17 10:00 10/20/17 22:00 Active Medications Acetaminophen (Tylenol Oral Solution -) 650 mg PEG Q6H PRN PRN Reason: FEVER Last Admin: 10/20/17 22:23 Dose: 650 mg Albuterol/Ipratropium (Duoneb -) 1 amp NEB Q6H PRN PRN Reason: SHORTNESS OF BREATH Last Admin: 10/21/17 07:50 Dose: 1 amp Artificial Tears (Artificial Tears Ointment -) 1 applic OU BID [facility] Last Admin: 10/21/17 11:55 Dose: 1 applic Atorvastatin Calcium (Lipitor -) 20 mg PO HS [facility] Last Admin: 10/20/17 22:21 Dose: 20 mg Digoxin (Lanoxin -) 0.125 mg PEG Q2D@1000 [facility] Last Admin: 10/20/17 10:44 Dose: 0.125 mg Diltiazem HCl 60 mg/ Diltiazem (HCl 30 mg) 90 mg NGT Q6HPO [facility] Last Admin: 10/21/17 11:52 Dose: 90 mg Enoxaparin Sodium (Lovenox -) 80 mg SQ BID [facility] Last Admin: 10/21/17 10:00 Dose: Not Given IV Flush (Picc Line Flush) 8 ml IVPUSH PRN PRN PRN Reason: Protocol Last Admin: 10/10/17 22:13 Dose: 8 ml Insulin Aspart (Novolog Vial Sliding Scale -) 1 vial SQ Q6H [facility] PRN Reason: Protocol Last Admin: 10/21/17 11:52 Dose: 6 units Insulin Detemir (Levemir Vial) 20 units SQ AM [facility] Last Admin: 10/21/17 06:05 Dose: 20 units Insulin Detemir (Levemir Vial) 15 units SQ HS [facility] Last Admin: 10/20/17 22:22 Dose: 15 units Metoprolol Tartrate (Lopressor -) 50 mg NGT BID [facility] Last Admin: 10/21/17 10:31 Dose: 50 mg Mupirocin (Bactroban 2% Ointment -) 1 applic TP TID [facility] Last Admin: 10/21/17 05:55 Dose: 1 applic Nystatin (Mycostatin Ointment -) 1 applic TP BID [facility] Last Admin: 10/21/17 11:55 Dose: 1 applic Ondansetron HCl (Zofran Injection) 4 mg IVPUSH Q6H PRN PRN Reason: NAUSEA Potassium Chloride (Potassium Chloride Oral Liquid) 40 meq PO DAILY [facility] Last Admin: 10/21/17 10:31 Dose: 40 meq Quetiapine Fumarate (Seroquel -) 25 mg PO [facility] Last Admin: 10/20/17 22:23 Dose: 25 mg Ranitidine HCl (Zantac -) 150 mg PO BID [facility] Last Admin: 10/21/17 10:31 Dose: 150 mg Trazodone HCl (Desyrel -) 50 mg PO [facility] Last Admin: 10/20/17 22:21 Dose: 50 mg Gen: Trached and vented, awake and interactive Neck: Improved localized erythema around Trach site Heart: RRR Lung: few scattered rhonchi Abd: soft, nontender Ext: + edema Laboratory Results - last 24 hr 10/20/17 10/20/17 10/21/17 14:50 17:00 00:41 Sodium 139 Potassium 4.2 Chloride 106 Carbon Dioxide 28 Anion Gap 5 L BUN 29 H Creatinine 1.1 H Creat Clearance w eGFR POC Glucometer 220 387 Random Glucose 183 H Calcium 8.1 L Magnesium 1.9 Total Bilirubin AST ALT Alkaline Phosphatase Total Protein Albumin 10/21/17 10/21/17 10/21/17 05:54 07:00 11:42 Sodium 136 Potassium 4.0 Chloride 103 Carbon Dioxide 26 Anion Gap 7 L BUN 34 H Creatinine 1.3 H Creat Clearance w eGFR 41.78 POC Glucometer 337 272 Random Glucose 290 H Calcium 8.0 L Magnesium 1.9 Total Bilirubin 0.7 D AST 46 H ALT 56 Alkaline Phosphatase 121 H Total Protein 5.2 L Albumin 1.8 L ASSESSMENT AND PLAN: Multiple Acute Embolic CVA Acute Hypoxic Respiratory Failure r/o Aspiration Pneumonia Atrial Fibrillation with RVR Metastatic Colon Ca to Lung Acute on Chronic Renal Failure Hyperkalemia HTN DM Hypercholesterolemia - D/W IR no indication for thoracentesis - Currently off ABX - Enteral feeds - Rate control - Lovenox BID - GI prophylaxis - Local skin care to Trach area with Bactroban - SBTs and PMV trials as tolerated - D/W daughter at the bedside Dr Kaplan
[2017-10-21] MEDS: ACETAMINOPHEN 650 MG/20.3 ML ORAL SOLUTION (CUPS) PEG PRN (16:11)
--- NOTE | 2017-10-21 16:32 | PN ---
Progress Note, Physician History of Present Illness: Pt seen and examined at bedside. She is getting pulm rehab. - Current Medication List Current Medications: Active Medications Acetaminophen (Tylenol Oral Solution -) 650 mg PEG Q6H PRN PRN Reason: FEVER Last Admin: 10/21/17 16:11 Dose: 650 mg Albuterol/Ipratropium (Duoneb -) 1 amp NEB Q6H PRN PRN Reason: SHORTNESS OF BREATH Last Admin: 10/21/17 07:50 Dose: 1 amp Artificial Tears (Artificial Tears Ointment -) 1 applic OU BID [facility] Last Admin: 10/21/17 11:55 Dose: 1 applic Atorvastatin Calcium (Lipitor -) 20 mg PO HS [facility] Last Admin: 10/20/17 22:21 Dose: 20 mg Digoxin (Lanoxin -) 0.125 mg PEG Q2D@1000 [facility] Last Admin: 10/20/17 10:44 Dose: 0.125 mg Diltiazem HCl 60 mg/ Diltiazem (HCl 30 mg) 90 mg NGT Q6HPO [facility] Last Admin: 10/21/17 11:52 Dose: 90 mg Enoxaparin Sodium (Lovenox -) 80 mg SQ BID [facility] Last Admin: 10/21/17 10:00 Dose: Not Given IV Flush (Picc Line Flush) 8 ml IVPUSH PRN PRN PRN Reason: Protocol Last Admin: 10/10/17 22:13 Dose: 8 ml Insulin Aspart (Novolog Vial Sliding Scale -) 1 vial SQ Q6H [facility] PRN Reason: Protocol Last Admin: 10/21/17 11:52 Dose: 6 units Insulin Detemir (Levemir Vial) 20 units SQ AM [facility] Last Admin: 10/21/17 06:05 Dose: 20 units Insulin Detemir (Levemir Vial) 15 units SQ HS [facility] Last Admin: 10/20/17 22:22 Dose: 15 units Metoprolol Tartrate (Lopressor -) 50 mg NGT BID [facility] Last Admin: 10/21/17 10:31 Dose: 50 mg Mupirocin (Bactroban 2% Ointment -) 1 applic TP TID [facility] Last Admin: 10/21/17 14:24 Dose: 1 applic Nystatin (Mycostatin Ointment -) 1 applic TP BID [facility] Last Admin: 10/21/17 11:55 Dose: 1 applic Ondansetron HCl (Zofran Injection) 4 mg IVPUSH Q6H PRN PRN Reason: NAUSEA Potassium Chloride (Potassium Chloride Oral Liquid) 40 meq PO DAILY [facility] Last Admin: 10/21/17 10:31 Dose: 40 meq Quetiapine Fumarate (Seroquel -) 25 mg PO [facility] Last Admin: 10/20/17 22:23 Dose: 25 mg Ranitidine HCl (Zantac -) 150 mg PO BID [facility] Last Admin: 10/21/17 10:31 Dose: 150 mg Trazodone HCl (Desyrel -) 50 mg PO [facility] Last Admin: 10/20/17 22:21 Dose: 50 mg - Objective Vital Signs: Vital Signs Temperature 97.9 F 10/21/17 14:18 Pulse Rate 74 10/21/17 14:18 Respiratory Rate 18 10/21/17 14:18 Blood Pressure 140/75 10/21/17 14:18 O2 Sat by Pulse Oximetry (%) 99 10/21/17 10:00 Constitutional: Yes: Calm Eyes: Yes: Conjunctiva Clear HENT: Yes: Atraumatic Neck: Yes: Other (trache) Cardiovascular: Yes: S1, S2 Respiratory: Yes: Mechanically Ventilated Gastrointestinal: Yes: Soft, Other (peg) Genitourinary: Yes: Incontinence Musculoskeletal: Yes: Muscle Weakness Edema: No Neurological: Yes: Oriented Labs: CBC, BMP 10/18/17 21:10 10/21/17 07:00 INR, PTT INR 0.98 (0.82-1.09) 10/02/17 05:30 - ....Imaging Chest X-ray: Report Reviewed Problem List - Problems (1) Brain metastasis Code(s): C79.31 - SECONDARY MALIGNANT NEOPLASM OF BRAIN (2) Headache Code(s): R51 - HEADACHE Qualifiers: Headache chronicity pattern: unspecified pattern Intractability: intractable (3) Metastatic colorectal cancer Code(s): C78.5 - SECONDARY MALIGNANT NEOPLASM OF LARGE INTESTINE AND RECTUM (4) SUSAN (acute kidney injury) Code(s): N17.9 - ACUTE KIDNEY FAILURE, UNSPECIFIED (5) Atrial fibrillation Code(s): I48.91 - UNSPECIFIED ATRIAL FIBRILLATION (6) Cancer, colon Code(s): C18.9 - MALIGNANT NEOPLASM OF COLON, UNSPECIFIED Qualifiers: Colon location: unspecified part of colon Qualified Code(s): C18.9 - Malignant neoplasm of colon, unspecified (7) Lung mass Code(s): R91.8 - OTHER NONSPECIFIC ABNORMAL FINDING OF LUNG FIELD Assessment/Plan Current Medications Generic Name Dose Route Start Last Admin Trade Name Freq PRN Reason Stop Dose Admin Acetaminophen 650 mg 10/06/17 20:09 10/21/17 16:11 Tylenol Oral Solution - PEG 650 mg Q6H PRN Administration FEVER Albuterol/Ipratropium 1 amp 10/18/17 20:50 10/21/17 07:50 Duoneb - NEB 1 amp Q6H PRN Administration SHORTNESS OF BREATH Artificial Tears 1 applic 10/06/17 22:00 10/21/17 11:55 Artificial Tears Ointment - OU 1 applic BID [facility] Administration Atorvastatin Calcium 20 mg 10/06/17 22:00 10/20/17 22:21 Lipitor - PO 20 mg HS [facility] Administration Digoxin 0.125 mg 10/08/17 10:00 10/20/17 10:44 Lanoxin - PEG 0.125 mg Q2D@1000 [facility] Administration Diltiazem HCl 60 mg/ Diltiazem 90 mg 10/07/17 00:00 10/21/17 11:52 HCl 30 mg NGT 90 mg Q6HPO [facility] Administration Enoxaparin Sodium 80 mg 10/17/17 10:00 10/21/17 10:00 Lovenox - SQ Not Given BID [facility] IV Flush 8 ml 10/09/17 11:32 10/10/17 22:13 Picc Line Flush IVPUSH 8 ml PRN PRN Administration Protocol Insulin Aspart 1 vial 10/07/17 00:00 10/21/17 11:52 Novolog Vial Sliding Scale - SQ 6 units Q6H [facility] Administration Protocol Insulin Detemir 20 units 10/20/17 07:00 10/21/17 06:05 Levemir Vial SQ 20 units AM [facility] Administration Insulin Detemir 15 units 10/20/17 22:00 10/20/17 22:22 Levemir Vial SQ 15 units HS [facility] Administration Metoprolol Tartrate 50 mg 10/07/17 10:00 10/21/17 10:31 Lopressor - NGT 50 mg BID [facility] Administration Mupirocin 1 applic 10/09/17 14:00 10/21/17 14:24 Bactroban 2% Ointment - TP 1 applic TID [facility] Administration Nystatin 1 applic 10/06/17 22:00 10/21/17 11:55 Mycostatin Ointment - TP 1 applic BID [facility] Administration Ondansetron HCl 4 mg 10/06/17 20:09 Zofran Injection IVPUSH Q6H PRN NAUSEA Potassium Chloride 40 meq 10/19/17 15:00 10/21/17 10:31 Potassium Chloride Oral Liquid PO 40 meq DAILY [facility] Administration Quetiapine Fumarate 25 mg 10/06/17 22:00 10/20/17 22:23 Seroquel - PO 25 mg HS [facility] Administration Ranitidine HCl 150 mg 10/06/17 22:00 10/21/17 10:31 Zantac - PO 150 mg BID [facility] Administration Trazodone HCl 50 mg 10/06/17 22:00 10/20/17 22:21 Desyrel - PO 50 mg HS [facility] Administration Laboratory Tests 10/21/17 07:00 Potassium 4.0 Creatinine 1.3 H Magnesium 1.9 Impression 1. CKD 2. SUSAN 3. DM 4. htn 5. chol 6. chemo port malfunction 7. a-fib 8. lung mass 9. proteinuria 10. adenocarcinoma 11. CVA 12. acute resp failure 13. hyperkalemia 14. hypernatremia 15. pleural effusions Plan - stop daily potassium supplements - cont feeds - monitor renal function - pulmonary rehab - vent support - will follow PRN Dr Llanos
[2017-10-21] MEDS: ATORVASTATIN CA 20 MG TABLET (FP) PO SCH (22:22)
[2017-10-21] MEDS: traZODone HCL 50 MG TABLET (FP) PO SCH (22:22)
[2017-10-21] MEDS: QUEtiapine FUMARATE 25 MG TABLET (FP) PO SCH (22:23)
[2017-10-22] MEDS: RANITIDINE HCL 150 MG TABLET (FP) PO SCH ×3 (00:40→22:01)
[2017-10-22] MEDS: DILTIAZEM 60 MG, DILTIAZEM 30 MG NGT SCH ×5 (00:40→23:12)
[2017-10-22] MEDS: INSULIN SLIDING SCALE (NOVOLOG) 1 VIAL SQ SCH ×5 (00:41→23:13)
[2017-10-22] MEDS ORDERED: dilTIAZem HCL 30 MG TABLET (FP) ONE ×4 (06:22→23:04)
[2017-10-22] MEDS ORDERED: dilTIAZem HCL 60 MG TABLET (FP) ONE ×4 (06:22→23:04)
[2017-10-22] MEDS: INSULIN DETEMIR 100 UNITS/ML MDV SQ SCH ×2 (06:30→23:12)
[2017-10-22] MEDS: MUPIROCIN 2% TOPICAL OINTMENT 22 GM TUBE TP SCH ×3 (06:31→21:57)
[2017-10-22] MEDS ORDERED: INSULIN (NOVOLOG) ASPART 100 UNITS/ML 10ML VIAL ONE ×3 (07:01→17:14)
[2017-10-22] MEDS: ALBUTEROL SO4 2.5/IPRATROPIUM 0.5 INH SOL 3 ML VIAL.NEB. NEB PRN ×2 (07:20→12:06)
[2017-10-22] MEDS ORDERED: PT OWN MED DRAWER 7, Y5N ONE (10:28)
[2017-10-22] MEDS: DIGOXIN 0.125 MG TABLET (FP) PEG SCH (10:30)
[2017-10-22] MEDS: METOPROLOL TARTRATE 50 MG TABLET (FP) NGT SCH ×2 (10:32→21:58)
[2017-10-22] MEDS: ENOXAPARIN NA (PORCINE) 80 MG/0.8 ML DISP.SYRIN SQ SCH ×2 (10:33→21:58)
[2017-10-22] MEDS: ACETAMINOPHEN 650 MG/20.3 ML ORAL SOLUTION (CUPS) PEG PRN (10:35)
[2017-10-22] MEDS: MINERAL OIL/PETROLATUM,WHITE 3.5 GM TUBE OU SCH ×2 (10:36→21:57)
--- NOTE | 2017-10-22 11:29 | PN ---
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 Selected Entries 10/21/17 10/21/17 10/21/17 01:00 05:00 06:00 Supper Temperature 99.2 F 99.0 F 97.8 F 10/21/17 10/21/17 10/21/17 10:00 14:18 22:00 Supper NPO Temperature 99.0 F 97.9 F 98.6 F 10/21/17 10/22/17 10/22/17 23:04 02:00 06:00 Supper NPO Temperature 98.5 F 98.7 F 10/22/17 09:04 Supper Temperature 99.6 F Laboratory Tests 10/18/17 21:10 WBC 11.3 H More alert for me this am. c/o pain on left side of body. Nursing made aware. Asking to drink. Call placed to daughter to request she come in to observe PMV trial. She will be in within an hour and will coordinate with respiratory therapy.
--- NOTE | 2017-10-22 13:08 | PN ---
Progress Note, Physician History of Present Illness: S/P trach and GT metastatic colon CA seen by ID, nephrology and pulmonary - Current Medication List Current Medications: Active Medications Acetaminophen (Tylenol Oral Solution -) 650 mg PEG Q6H PRN PRN Reason: FEVER Last Admin: 10/22/17 10:35 Dose: 650 mg Albuterol/Ipratropium (Duoneb -) 1 amp NEB Q6H PRN PRN Reason: SHORTNESS OF BREATH Last Admin: 10/22/17 12:06 Dose: 1 amp Artificial Tears (Artificial Tears Ointment -) 1 applic OU BID [facility] Last Admin: 10/22/17 10:36 Dose: 1 applic Atorvastatin Calcium (Lipitor -) 20 mg PO HS [facility] Last Admin: 10/21/17 22:22 Dose: 20 mg Digoxin (Lanoxin -) 0.125 mg PEG Q2D@1000 [facility] Last Admin: 10/22/17 10:30 Dose: 0.125 mg Diltiazem HCl 60 mg/ Diltiazem (HCl 30 mg) 90 mg NGT Q6HPO [facility] Last Admin: 10/22/17 12:34 Dose: 90 mg Enoxaparin Sodium (Lovenox -) 80 mg SQ BID [facility] Last Admin: 10/22/17 10:33 Dose: 80 mg IV Flush (Picc Line Flush) 8 ml IVPUSH PRN PRN PRN Reason: Protocol Last Admin: 10/10/17 22:13 Dose: 8 ml Insulin Aspart (Novolog Vial Sliding Scale -) 1 vial SQ Q6H [facility] PRN Reason: Protocol Last Admin: 10/22/17 12:31 Dose: 6 units Insulin Detemir (Levemir Vial) 20 units SQ AM [facility] Last Admin: 10/22/17 06:30 Dose: 20 units Insulin Detemir (Levemir Vial) 15 units SQ HS [facility] Last Admin: 10/21/17 22:23 Dose: 15 units Metoprolol Tartrate (Lopressor -) 50 mg NGT BID [facility] Last Admin: 10/22/17 10:32 Dose: 50 mg Mupirocin (Bactroban 2% Ointment -) 1 applic TP TID [facility] Last Admin: 10/22/17 06:31 Dose: 1 applic Nystatin (Mycostatin Ointment -) 1 applic TP BID [facility] Last Admin: 10/21/17 22:21 Dose: 1 applic Ondansetron HCl (Zofran Injection) 4 mg IVPUSH Q6H PRN PRN Reason: NAUSEA Quetiapine Fumarate (Seroquel -) 25 mg PO [facility] Last Admin: 10/21/17 22:23 Dose: 25 mg Ranitidine HCl (Zantac -) 150 mg PO BID [facility] Last Admin: 10/22/17 10:35 Dose: 150 mg Trazodone HCl (Desyrel -) 50 mg PO [facility] Last Admin: 10/21/17 22:22 Dose: 50 mg - Objective Vital Signs: Vital Signs Temperature 99.6 F 10/22/17 09:04 Pulse Rate 98 H 10/22/17 10:30 Respiratory Rate 17 10/22/17 12:09 Blood Pressure 138/65 10/22/17 09:04 O2 Sat by Pulse Oximetry (%) 98 10/21/17 21:00 Constitutional: Yes: Well Nourished, No Distress, Calm Cardiovascular: Yes: Regular Rate and Rhythm Respiratory: Yes: Regular Gastrointestinal: Yes: Other (PEG) Neurological: Yes: Alert Psychiatric: Yes: Alert Labs: CBC, BMP 10/18/17 21:10 10/21/17 07:00 INR, PTT INR 0.98 (0.82-1.09) 10/02/17 05:30 Problem List - Problems (1) Anemia Assessment/Plan: -stabilized -normal transfusion parameters Code(s): D64.9 - ANEMIA, UNSPECIFIED (2) Brain metastasis Code(s): C79.31 - SECONDARY MALIGNANT NEOPLASM OF BRAIN (3) Fever Assessment/Plan: -afebrile this afternoon -seen by ID -metastatic CA is a factor as well -BC,UC and CXR negative Code(s): R50.9 - FEVER, UNSPECIFIED (4) Metastatic colorectal cancer Assessment/Plan: -PEG -palliative consult appreciated Code(s): C78.5 - SECONDARY MALIGNANT NEOPLASM OF LARGE INTESTINE AND RECTUM (5) Respiratory failure Assessment/Plan: s/p tracheotomy -ID and Pulmonary on board -PMV evaluation by Regina Harrison done -need ENT evaluation Code(s): J96.90 - RESPIRATORY FAILURE, UNSP, UNSP W HYPOXIA OR HYPERCAPNIA (6) Atrial fibrillation Assessment/Plan: -chronic -on eliquis Code(s): I48.91 - UNSPECIFIED ATRIAL FIBRILLATION Assessment/Plan see problem list
--- NOTE | 2017-10-22 14:16 | CONSULT ---
Passy-Arcadia Valve Eval - Assessment Prior to PMV Placement Patient and/or family educated re PMV: Yes Mental Status: Attempting to Communicate (Repeatedly closes eyes, needing to be aroused again.) O2 Sat by Pulse Oximetry (%): 99 Secretions: Moderate Amount Patient on Ventilator: Yes Patient on Trach Collar: No Suctioned: Yes Cuff Status: Inflated Passy-Arcadia Valve in Place - Speech Characteristics Able to Phonate with PMV in place: Yes Voice Loudness: Mildly Soft/Quiet Voice Pitch: Mildly Low Voice Phonatory-based Quality: Harsh Speech Pattern: Impaired Speech Clarity: < 75% Nasal Resonance: Normal Articulation: Precise - Assessment with PMV in Place O2 Sat by Pulse Oximetry (%): 96 Change in Mental Status with PMV in Place: No (lethargy with and without PMV) Able to Manage Secretions: Yes Length of time with PMV in place: 15 min Additional comments: Pt was able to cough and expectorate secretions from pharynx out of oral cavity. Vocal quality is harsh, c/w vocal cord dysfunction.h/o multiple infarcts. PMV use not recommended until ENT visualizes vocal cords. r/o vocal cord pathology/weakness/paralysis/aspiration of secretions. To follow for possible PMV use/mbs, based on ENT findings.
--- NOTE | 2017-10-22 14:21 | PN ---
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 Responsive cough, with suspected aspiration. Pt was able to cough and expectorate secretions from pharynx out of oral cavity. Vocal quality is harsh, c/w vocal cord dysfunction.h/o multiple infarcts. Pt's daughter observed and she and staff were educated on the results. PMV use not recommended until ENT visualizes vocal cords. r/o vocal cord pathology/weakness/paralysis/aspiration of secretions. To follow for possible PMV use/mbs, based on ENT findings.
--- NOTE | 2017-10-22 16:29 | PN ---
Progress Note, Physician History of Present Illness: pulmonary alert,on trach collar,-resp distress - Current Medication List Current Medications: Active Medications Acetaminophen (Tylenol Oral Solution -) 650 mg PEG Q6H PRN PRN Reason: FEVER Last Admin: 10/22/17 10:35 Dose: 650 mg Albuterol/Ipratropium (Duoneb -) 1 amp NEB Q6H PRN PRN Reason: SHORTNESS OF BREATH Last Admin: 10/22/17 12:06 Dose: 1 amp Artificial Tears (Artificial Tears Ointment -) 1 applic OU BID [facility] Last Admin: 10/22/17 10:36 Dose: 1 applic Atorvastatin Calcium (Lipitor -) 20 mg PO HS [facility] Last Admin: 10/21/17 22:22 Dose: 20 mg Digoxin (Lanoxin -) 0.125 mg PEG Q2D@1000 [facility] Last Admin: 10/22/17 10:30 Dose: 0.125 mg Diltiazem HCl 60 mg/ Diltiazem (HCl 30 mg) 90 mg NGT Q6HPO [facility] Last Admin: 10/22/17 12:34 Dose: 90 mg Enoxaparin Sodium (Lovenox -) 80 mg SQ BID [facility] Last Admin: 10/22/17 10:33 Dose: 80 mg IV Flush (Picc Line Flush) 8 ml IVPUSH PRN PRN PRN Reason: Protocol Last Admin: 10/10/17 22:13 Dose: 8 ml Insulin Aspart (Novolog Vial Sliding Scale -) 1 vial SQ Q6H [facility] PRN Reason: Protocol Last Admin: 10/22/17 12:31 Dose: 6 units Insulin Detemir (Levemir Vial) 20 units SQ AM [facility] Last Admin: 10/22/17 06:30 Dose: 20 units Insulin Detemir (Levemir Vial) 15 units SQ HS [facility] Last Admin: 10/21/17 22:23 Dose: 15 units Metoprolol Tartrate (Lopressor -) 50 mg NGT BID [facility] Last Admin: 10/22/17 10:32 Dose: 50 mg Mupirocin (Bactroban 2% Ointment -) 1 applic TP TID [facility] Last Admin: 10/22/17 06:31 Dose: 1 applic Nystatin (Mycostatin Ointment -) 1 applic TP BID [facility] Last Admin: 10/21/17 22:21 Dose: 1 applic Ondansetron HCl (Zofran Injection) 4 mg IVPUSH Q6H PRN PRN Reason: NAUSEA Quetiapine Fumarate (Seroquel -) 25 mg PO [facility] Last Admin: 10/21/17 22:23 Dose: 25 mg Ranitidine HCl (Zantac -) 150 mg PO BID [facility] Last Admin: 10/22/17 10:35 Dose: 150 mg Trazodone HCl (Desyrel -) 50 mg PO [facility] Last Admin: 10/21/17 22:22 Dose: 50 mg - Objective Vital Signs: Vital Signs Temperature 99.4 F 10/22/17 14:46 Pulse Rate 79 10/22/17 14:46 Respiratory Rate 26 H 10/22/17 14:46 Blood Pressure 139/76 10/22/17 14:46 O2 Sat by Pulse Oximetry (%) 96 10/22/17 14:19 Constitutional: Yes: Well Nourished, Calm Eyes: Yes: WNL HENT: Yes: WNL Neck: Yes: Supple (trach) Cardiovascular: Yes: Pulse Irregular, S1, S2 Respiratory: Yes: Diminished Gastrointestinal: Yes: Normal Bowel Sounds, Soft Extremities: Yes: WNL Edema: No Labs: CBC, BMP Problem List - Problems (1) Anemia Code(s): D64.9 - ANEMIA, UNSPECIFIED (2) Brain metastasis Code(s): C79.31 - SECONDARY MALIGNANT NEOPLASM OF BRAIN (3) CVA (cerebral vascular accident) Code(s): I63.9 - CEREBRAL INFARCTION, UNSPECIFIED Qualifiers: Laterality of affected vessel: unspecified (4) Metastatic colorectal cancer Code(s): C78.5 - SECONDARY MALIGNANT NEOPLASM OF LARGE INTESTINE AND RECTUM (5) Respiratory failure Code(s): J96.90 - RESPIRATORY FAILURE, UNSP, UNSP W HYPOXIA OR HYPERCAPNIA (6) Atrial fibrillation Code(s): I48.91 - UNSPECIFIED ATRIAL FIBRILLATION (7) HTN (hypertension) Code(s): I10 - ESSENTIAL (PRIMARY) HYPERTENSION (8) Lung mass Code(s): R91.8 - OTHER NONSPECIFIC ABNORMAL FINDING OF LUNG FIELD Assessment/Plan ASSESSMENT AND PLAN: Multiple Acute Embolic CVA Acute Hypoxic Respiratory Failure s/p Tracheostomy Aspiration Pneumonia Atrial Fibrillation with RVR Metastatic Colon Ca to Lung Acute on Chronic Renal Failure HTN DM Hypercholesterolemia - trach collar as tolerated - anticoagulation - monitor urine output, creatinine - enteral feeds - DVT/GI prophylaxis DR LEONE
[2017-10-22] MEDS: NYSTATIN 100000 UNIT/GM TOPICAL OINTMENT 15 GM TUBE TP SCH ×2 (17:57→22:00)
[2017-10-22] MEDS: ATORVASTATIN CA 20 MG TABLET (FP) PO SCH (21:58)
[2017-10-22] MEDS: traZODone HCL 50 MG TABLET (FP) PO SCH (21:58)
[2017-10-22] MEDS: QUEtiapine FUMARATE 25 MG TABLET (FP) PO SCH (21:59)
[2017-10-23] MEDS ORDERED: dilTIAZem HCL 30 MG TABLET (FP) ONE ×4 (06:07→22:48)
[2017-10-23] MEDS ORDERED: dilTIAZem HCL 60 MG TABLET (FP) ONE ×4 (06:08→22:48)
[2017-10-23] MEDS: INSULIN DETEMIR 100 UNITS/ML MDV SQ SCH ×2 (06:37→23:04)
[2017-10-23] MEDS: DILTIAZEM 60 MG, DILTIAZEM 30 MG NGT SCH ×4 (06:37→23:05)
[2017-10-23] MEDS: INSULIN SLIDING SCALE (NOVOLOG) 1 VIAL SQ SCH ×4 (06:37→23:05)
[2017-10-23] MEDS: MUPIROCIN 2% TOPICAL OINTMENT 22 GM TUBE TP SCH ×3 (06:38→21:47)
[2017-10-23 07:44] LABS: BASO % 1.2 % (0-2.0); EOS % 0.7 % (0-4.5); HEMATOCRIT 25.2 % (32.4-45.2); HEMOGLOBIN 8.4 GM/dL (10.7-15.3); LYMPH % 18.1 % (8-40); MCHC 33.3 g/dl (32.0-36.0); MEAN CELL VOLUME 87.2 fl (80-96); MEAN PLT VOLUME 7.7 fl (7.5-11.1); MONO % 7.1 % (3.8-10.2); NEUT % 72.9 % (42.8-82.8); PLATELET COUNT 313 K/MM3 (134-434); RBC 2.89 M/mm3 (3.60-5.2); RDW 16.9 % (11.6-15.6)
[2017-10-23 08:10] LABS: CHLORIDE 103 mmol/L (98-107); POTASSIUM 4.5 mmol/L (3.5-5.1); SODIUM 137 mmol/L (136-145)
[2017-10-23 08:27] LABS: ALBUMIN 1.8 g/dl (3.4-5.0); ALK PHOS 136 U/L (45-117); ANION GAP 8 (8-16); BILIRUBIN,TOTAL 0.3 mg/dL (0.2-1.0); BLOOD UREA NITROGEN 32 mg/dL (7-18); CALCIUM 8.2 mg/dL (8.5-10.1); CO2 26 mmol/L (21-32); CREATININE 1.2 mg/dL (0.55-1.02); GLUCOSE,RANDOM 262 mg/dL (74-106); SGOT/AST 31 U/L (15-37); SGPT/ALT 57 U/L (12-78); TOT PROT 5.6 g/dl (6.4-8.2)
[2017-10-23] MEDS: ENOXAPARIN NA (PORCINE) 80 MG/0.8 ML DISP.SYRIN SQ SCH ×2 (10:20→21:43)
[2017-10-23] MEDS: RANITIDINE HCL 150 MG TABLET (FP) PO SCH ×2 (10:21→21:44)
[2017-10-23] MEDS: METOPROLOL TARTRATE 50 MG TABLET (FP) NGT SCH ×2 (10:21→21:43)
[2017-10-23] MEDS: ACETAMINOPHEN 650 MG/20.3 ML ORAL SOLUTION (CUPS) PEG PRN ×2 (10:22→16:33)
--- NOTE | 2017-10-23 10:49 | PN ---
Progress Note, Physician Chief Complaint: patient seen in room awaiting ENT to see patient to vocalize the cords bonilla inman recommendations noted - Current Medication List Current Medications: Active Medications Acetaminophen (Tylenol Oral Solution -) 650 mg PEG Q6H PRN PRN Reason: FEVER Last Admin: 10/23/17 10:22 Dose: 650 mg Albuterol/Ipratropium (Duoneb -) 1 amp NEB Q6H PRN PRN Reason: SHORTNESS OF BREATH Last Admin: 10/22/17 12:06 Dose: 1 amp Artificial Tears (Artificial Tears Ointment -) 1 applic OU BID [facility] Last Admin: 10/22/17 21:57 Dose: 1 applic Atorvastatin Calcium (Lipitor -) 20 mg PO HS [facility] Last Admin: 10/22/17 21:58 Dose: 20 mg Digoxin (Lanoxin -) 0.125 mg PEG Q2D@1000 [facility] Last Admin: 10/22/17 10:30 Dose: 0.125 mg Diltiazem HCl 60 mg/ Diltiazem (HCl 30 mg) 90 mg NGT Q6HPO [facility] Last Admin: 10/23/17 06:37 Dose: 90 mg Enoxaparin Sodium (Lovenox -) 80 mg SQ BID [facility] Last Admin: 10/23/17 10:20 Dose: 80 mg IV Flush (Picc Line Flush) 8 ml IVPUSH PRN PRN PRN Reason: Protocol Last Admin: 10/10/17 22:13 Dose: 8 ml Insulin Aspart (Novolog Vial Sliding Scale -) 1 vial SQ Q6H [facility] PRN Reason: Protocol Last Admin: 10/23/17 06:37 Dose: 8 units Insulin Detemir (Levemir Vial) 20 units SQ AM [facility] Last Admin: 10/23/17 06:37 Dose: 20 units Insulin Detemir (Levemir Vial) 15 units SQ HS [facility] Last Admin: 10/22/17 23:12 Dose: 15 units Metoprolol Tartrate (Lopressor -) 50 mg NGT BID [facility] Last Admin: 10/23/17 10:21 Dose: 50 mg Mupirocin (Bactroban 2% Ointment -) 1 applic TP TID [facility] Last Admin: 10/23/17 06:38 Dose: 1 applic Nystatin (Mycostatin Ointment -) 1 applic TP BID [facility] Last Admin: 10/22/17 22:00 Dose: 1 applic Ondansetron HCl (Zofran Injection) 4 mg IVPUSH Q6H PRN PRN Reason: NAUSEA Quetiapine Fumarate (Seroquel -) 25 mg PO [facility] Last Admin: 10/22/17 21:59 Dose: 25 mg Ranitidine HCl (Zantac -) 150 mg PO BID [facility] Last Admin: 10/23/17 10:21 Dose: 150 mg Trazodone HCl (Desyrel -) 50 mg PO [facility] Last Admin: 10/22/17 21:58 Dose: 50 mg - Objective Vital Signs: Vital Signs Temperature 99.2 F 10/23/17 09:00 Pulse Rate 83 10/23/17 10:08 Respiratory Rate 24 10/23/17 10:08 Blood Pressure 151/75 10/23/17 09:00 O2 Sat by Pulse Oximetry (%) 98 10/23/17 10:08 Constitutional: Yes: Calm Neck: Yes: Other (trach) Cardiovascular: Yes: Regular Rate and Rhythm, S1, S2 Respiratory: Yes: CTA Bilaterally Gastrointestinal: Yes: Normal Bowel Sounds, Soft, Other (peg) Labs: CBC, BMP 10/23/17 07:00 10/23/17 07:00 INR, PTT INR 0.98 (0.82-1.09) 10/02/17 05:30 Problem List - Problems (1) Hypomagnesemia Assessment/Plan: now magnesium normal Code(s): E83.42 - HYPOMAGNESEMIA (2) Fever Assessment/Plan: Microbiology 10/19/17 00:15 Urine - Urine - Catheterized Urine Culture - Final NO GROWTH OBTAINED 10/16/17 12:48 Blood - Peripheral Venous Blood Culture - Final NO GROWTH AFTER 5 DAYS INCUBATION 10/16/17 11:45 Blood - Peripheral Venous Blood Culture - Final NO GROWTH AFTER 5 DAYS INCUBATION 10/18/17 20:50 Blood - Peripheral Venous Blood Culture - Preliminary NO GROWTH OBTAINED AFTER 96 HOURS, INCUBATION TO CONTINUE FOR 1 DAYS. 10/18/17 20:20 Blood - Peripheral Venous Blood Culture - Preliminary NO GROWTH OBTAINED AFTER 96 HOURS, INCUBATION TO CONTINUE FOR 1 DAYS. Code(s): R50.9 - FEVER, UNSPECIFIED (3) UTI (urinary tract infection) Assessment/Plan: Microbiology 10/09/17 04:30 Urine - Urine - Catheterized Urine Culture - Final Pseudomonas Aeruginosa ceftazidime- course done Code(s): N39.0 - URINARY TRACT INFECTION, SITE NOT SPECIFIED (4) Sheeba infection Assessment/Plan: diflucan 200mg daily- completed topical antifungal cream to groin- completed Code(s): B37.9 - CANDIDIASIS, UNSPECIFIED (5) Respiratory failure Assessment/Plan: s/p tracheostomy vent support- AC mode bactroban to trach site ENT to see patient to visualizw vocal cords Code(s): J96.90 - RESPIRATORY FAILURE, UNSP, UNSP W HYPOXIA OR HYPERCAPNIA (6) Pneumonia Assessment/Plan: iv zosyn s/p 8 day course abx stopped Code(s): J18.9 - PNEUMONIA, UNSPECIFIED ORGANISM (7) Atrial fibrillation Assessment/Plan: digoxin,cardizem and metoprolol eliquis stopped on lovenox- for thoracocentesis Code(s): I48.91 - UNSPECIFIED ATRIAL FIBRILLATION (8) Anemia Assessment/Plan: ppi h/h stable iron panel pending GI follow up noted Code(s): D64.9 - ANEMIA, UNSPECIFIED (9) Diabetes Assessment/Plan: insulin bgm ok for now Code(s): E11.9 - TYPE 2 DIABETES MELLITUS WITHOUT COMPLICATIONS Qualifiers: Diabetes mellitus type: type 2 (10) CVA (cerebral vascular accident) Assessment/Plan: S/p multiple acute embolic infarcts - s/p trach on vent s/p peg now needs snf placement Code(s): I63.9 - CEREBRAL INFARCTION, UNSPECIFIED Qualifiers: Laterality of affected vessel: unspecified
[2017-10-23] MEDS ORDERED: PT OWN MED DRAWER 7, Y5N ONE ×2 (11:28→14:26)
[2017-10-23] MEDS: MINERAL OIL/PETROLATUM,WHITE 3.5 GM TUBE OU SCH ×2 (11:34→21:46)
[2017-10-23] MEDS: NYSTATIN 100000 UNIT/GM TOPICAL OINTMENT 15 GM TUBE TP SCH ×2 (11:36→21:47)
--- NOTE | 2017-10-23 13:37 | PN ---
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 Vocal quality is harsh with cuff deflation. c/w vocal cord dysfunction.h/o multiple infarcts. PMV use not recommended until ENT visualizes vocal cords. r/o vocal cord pathology/weakness/paralysis/aspiration of secretions. Pending ENT consult to visualize vocal cords. To follow for possible PMV use/MBS, based on ENT findings.
--- NOTE | 2017-10-23 14:50 | PN ---
Progress Note (short form) - Note Progress Note: Trached / vented. Awake and interactive. Noted that ENT was consulted as suggested by Speech&Swallow. Intake & Output 10/20/17 10/21/17 10/22/17 10/23/17 23:59 23:59 23:59 23:59 Intake Total 1650 1060 1660 510 Balance 1650 1060 1660 510 Last Vital Signs Temp Pulse Resp BP Pulse Ox 99.5 F 72 22 123/61 98 10/23/17 14:31 10/23/17 14:31 10/23/17 14:31 10/23/17 14:31 10/23/17 10:08 Active Medications Acetaminophen (Tylenol Oral Solution -) 650 mg PEG Q6H PRN PRN Reason: FEVER Last Admin: 10/23/17 10:22 Dose: 650 mg Albuterol/Ipratropium (Duoneb -) 1 amp NEB Q6H PRN PRN Reason: SHORTNESS OF BREATH Last Admin: 10/22/17 12:06 Dose: 1 amp Artificial Tears (Artificial Tears Ointment -) 1 applic OU BID [facility] Last Admin: 10/23/17 11:34 Dose: 1 applic Atorvastatin Calcium (Lipitor -) 20 mg PO HS [facility] Last Admin: 10/22/17 21:58 Dose: 20 mg Digoxin (Lanoxin -) 0.125 mg PEG Q2D@1000 [facility] Last Admin: 10/22/17 10:30 Dose: 0.125 mg Diltiazem HCl 60 mg/ Diltiazem (HCl 30 mg) 90 mg NGT Q6HPO [facility] Last Admin: 10/23/17 11:41 Dose: 90 mg Enoxaparin Sodium (Lovenox -) 80 mg SQ BID [facility] Last Admin: 10/23/17 10:20 Dose: 80 mg IV Flush (Picc Line Flush) 8 ml IVPUSH PRN PRN PRN Reason: Protocol Last Admin: 10/10/17 22:13 Dose: 8 ml Insulin Aspart (Novolog Vial Sliding Scale -) 1 vial SQ Q6H [facility] PRN Reason: Protocol Last Admin: 10/23/17 11:40 Dose: 2 units Insulin Detemir (Levemir Vial) 20 units SQ AM [facility] Last Admin: 10/23/17 06:37 Dose: 20 units Insulin Detemir (Levemir Vial) 15 units SQ HS [facility] Last Admin: 10/22/17 23:12 Dose: 15 units Metoprolol Tartrate (Lopressor -) 50 mg NGT BID [facility] Last Admin: 10/23/17 10:21 Dose: 50 mg Mupirocin (Bactroban 2% Ointment -) 1 applic TP TID [facility] Last Admin: 10/23/17 14:28 Dose: 1 applic Nystatin (Mycostatin Ointment -) 1 applic TP BID [facility] Last Admin: 10/23/17 11:36 Dose: 1 applic Ondansetron HCl (Zofran Injection) 4 mg IVPUSH Q6H PRN PRN Reason: NAUSEA Quetiapine Fumarate (Seroquel -) 25 mg PO [facility] Last Admin: 10/22/17 21:59 Dose: 25 mg Ranitidine HCl (Zantac -) 150 mg PO BID [facility] Last Admin: 10/23/17 10:21 Dose: 150 mg Trazodone HCl (Desyrel -) 50 mg PO [facility] Last Admin: 10/22/17 21:58 Dose: 50 mg Gen: Trached and vented, awake and interactive Neck: Improved localized erythema around Trach site Heart: RRR Lung: few scattered rhonchi Abd: soft, nontender Ext: + edema Laboratory Results - last 24 hr 10/22/17 10/22/17 10/23/17 17:58 23:11 06:35 WBC RBC Hgb Hct MCV MCH MCHC RDW Plt Count MPV Neutrophils % Lymphocytes % Monocytes % Eosinophils % Basophils % Sodium Potassium Chloride Carbon Dioxide Anion Gap BUN Creatinine Creat Clearance w eGFR POC Glucometer 164 233 308 Random Glucose Calcium Total Bilirubin AST ALT Alkaline Phosphatase Total Protein Albumin 10/23/17 10/23/17 10/23/17 07:00 07:00 11:39 WBC 11.0 H RBC 2.89 L Hgb 8.4 L D Hct 25.2 L MCV 87.2 MCH 29.0 MCHC 33.3 RDW 16.9 H Plt Count 313 MPV 7.7 Neutrophils % 72.9 Lymphocytes % 18.1 D Monocytes % 7.1 Eosinophils % 0.7 Basophils % 1.2 Sodium 137 Potassium 4.5 Chloride 103 Carbon Dioxide 26 Anion Gap 8 BUN 32 H Creatinine 1.2 H Creat Clearance w eGFR 45.83 POC Glucometer 173 Random Glucose 262 H Calcium 8.2 L Total Bilirubin 0.3 D AST 31 ALT 57 Alkaline Phosphatase 136 H Total Protein 5.6 L Albumin 1.8 L ASSESSMENT AND PLAN: Multiple Acute Embolic CVA Acute Hypoxic Respiratory Failure r/o Aspiration Pneumonia Atrial Fibrillation with RVR Metastatic Colon Ca to Lung Acute on Chronic Renal Failure Hyperkalemia HTN DM Hypercholesterolemia - ENT consulted to R/O VC pathology - Currently off ABX - Enteral feeds - Rate control - Lovenox BID - GI prophylaxis - Local skin care to Trach area with Bactroban - SBTs and if cleared by ENT -> PMV trials as tolerated Dr Kaplan
[2017-10-23] MEDS ORDERED: INSULIN (NOVOLOG) ASPART 100 UNITS/ML 10ML VIAL ONE (16:31)
[2017-10-23] MEDS: ATORVASTATIN CA 20 MG TABLET (FP) PO SCH (21:43)
[2017-10-23] MEDS: traZODone HCL 50 MG TABLET (FP) PO SCH (21:43)
[2017-10-23] MEDS: QUEtiapine FUMARATE 25 MG TABLET (FP) PO SCH (21:44)
[2017-10-24] MEDS ORDERED: dilTIAZem HCL 30 MG TABLET (FP) ONE ×4 (05:28→23:03)
[2017-10-24] MEDS ORDERED: dilTIAZem HCL 60 MG TABLET (FP) ONE ×4 (05:28→23:03)
[2017-10-24] MEDS: INSULIN DETEMIR 100 UNITS/ML MDV SQ SCH ×2 (06:23→23:38)
[2017-10-24] MEDS: DILTIAZEM 60 MG, DILTIAZEM 30 MG NGT SCH ×4 (06:23→23:36)
[2017-10-24] MEDS: INSULIN SLIDING SCALE (NOVOLOG) 1 VIAL SQ SCH ×4 (06:23→23:50)
[2017-10-24] MEDS: MUPIROCIN 2% TOPICAL OINTMENT 22 GM TUBE TP SCH ×3 (06:24→23:37)
--- NOTE | 2017-10-24 10:12 | PN ---
Progress Note, Physician Chief Complaint: no plan for thoracocentesis awaitng ENt to see patient will restart eliquis tmax 99.9 - Current Medication List Current Medications: Active Medications Acetaminophen (Tylenol Oral Solution -) 650 mg PEG Q6H PRN PRN Reason: FEVER Last Admin: 10/23/17 16:33 Dose: 650 mg Albuterol/Ipratropium (Duoneb -) 1 amp NEB Q6H PRN PRN Reason: SHORTNESS OF BREATH Last Admin: 10/22/17 12:06 Dose: 1 amp Artificial Tears (Artificial Tears Ointment -) 1 applic OU BID [facility] Last Admin: 10/23/17 21:46 Dose: 1 applic Atorvastatin Calcium (Lipitor -) 20 mg PO HS [facility] Last Admin: 10/23/17 21:43 Dose: 20 mg Digoxin (Lanoxin -) 0.125 mg PEG Q2D@1000 [facility] Last Admin: 10/22/17 10:30 Dose: 0.125 mg Diltiazem HCl 60 mg/ Diltiazem (HCl 30 mg) 90 mg NGT Q6HPO [facility] Last Admin: 10/24/17 06:23 Dose: 90 mg Enoxaparin Sodium (Lovenox -) 80 mg SQ BID [facility] Last Admin: 10/23/17 21:43 Dose: 80 mg IV Flush (Picc Line Flush) 8 ml IVPUSH PRN PRN PRN Reason: Protocol Last Admin: 10/10/17 22:13 Dose: 8 ml Insulin Aspart (Novolog Vial Sliding Scale -) 1 vial SQ Q6H [facility] PRN Reason: Protocol Last Admin: 10/24/17 06:23 Dose: 8 units Insulin Detemir (Levemir Vial) 20 units SQ AM [facility] Last Admin: 10/24/17 06:23 Dose: 20 units Insulin Detemir (Levemir Vial) 15 units SQ HS [facility] Last Admin: 10/23/17 23:04 Dose: 15 units Metoprolol Tartrate (Lopressor -) 50 mg NGT BID [facility] Last Admin: 10/23/17 21:43 Dose: 50 mg Mupirocin (Bactroban 2% Ointment -) 1 applic TP TID [facility] Last Admin: 10/24/17 06:24 Dose: 1 applic Nystatin (Mycostatin Ointment -) 1 applic TP BID [facility] Last Admin: 10/23/17 21:47 Dose: 1 applic Ondansetron HCl (Zofran Injection) 4 mg IVPUSH Q6H PRN PRN Reason: NAUSEA Quetiapine Fumarate (Seroquel -) 25 mg PO [facility] Last Admin: 10/23/17 21:44 Dose: 25 mg Ranitidine HCl (Zantac -) 150 mg PO BID [facility] Last Admin: 10/23/17 21:44 Dose: 150 mg Trazodone HCl (Desyrel -) 50 mg PO [facility] Last Admin: 10/23/17 21:43 Dose: 50 mg - Objective Vital Signs: Vital Signs Temperature 99.9 F H 10/24/17 06:00 Pulse Rate 93 H 10/24/17 06:00 Respiratory Rate 14 10/24/17 07:06 Blood Pressure 148/78 10/24/17 06:00 O2 Sat by Pulse Oximetry (%) 98 10/23/17 10:08 Constitutional: Yes: Calm Neck: Yes: Other (trach) Cardiovascular: Yes: S1, S2 Respiratory: Yes: Other (on trach collar) Gastrointestinal: Yes: Normal Bowel Sounds, Soft, Other (s/p peg) Neurological: Yes: Alert, Other (mouths words) Labs: CBC, BMP 10/23/17 07:00 10/23/17 07:00 INR, PTT INR 0.98 (0.82-1.09) 10/02/17 05:30 Problem List - Problems (1) Hypomagnesemia Assessment/Plan: now magnesium normal Code(s): E83.42 - HYPOMAGNESEMIA (2) Fever Assessment/Plan: Microbiology 10/19/17 00:15 Urine - Urine - Catheterized Urine Culture - Final NO GROWTH OBTAINED 10/16/17 12:48 Blood - Peripheral Venous Blood Culture - Final NO GROWTH AFTER 5 DAYS INCUBATION 10/16/17 11:45 Blood - Peripheral Venous Blood Culture - Final NO GROWTH AFTER 5 DAYS INCUBATION 10/18/17 20:50 Blood - Peripheral Venous Blood Culture - Preliminary NO GROWTH OBTAINED AFTER 96 HOURS, INCUBATION TO CONTINUE FOR 1 DAYS. 10/18/17 20:20 Blood - Peripheral Venous Blood Culture - Preliminary NO GROWTH OBTAINED AFTER 96 HOURS, INCUBATION TO CONTINUE FOR 1 DAYS. off abx Code(s): R50.9 - FEVER, UNSPECIFIED (3) UTI (urinary tract infection) Assessment/Plan: Microbiology 10/09/17 04:30 Urine - Urine - Catheterized Urine Culture - Final Pseudomonas Aeruginosa ceftazidime- course done Code(s): N39.0 - URINARY TRACT INFECTION, SITE NOT SPECIFIED (4) Sheeba infection Assessment/Plan: diflucan 200mg daily- completed topical antifungal cream to groin- completed Code(s): B37.9 - CANDIDIASIS, UNSPECIFIED (5) Respiratory failure Assessment/Plan: s/p tracheostomy now on trach collar 40% bactroban to trach site ENT to see patient to visualize vocal cords Code(s): J96.90 - RESPIRATORY FAILURE, UNSP, UNSP W HYPOXIA OR HYPERCAPNIA (6) Pneumonia Assessment/Plan: iv zosyn s/p 8 day course abx stopped Code(s): J18.9 - PNEUMONIA, UNSPECIFIED ORGANISM (7) Atrial fibrillation Assessment/Plan: digoxin,cardizem and metoprolol no plan for thoracocetesis will restart eliquis Code(s): I48.91 - UNSPECIFIED ATRIAL FIBRILLATION (8) Anemia Assessment/Plan: ppi h/h stable iron panel noted GI follow up noted Code(s): D64.9 - ANEMIA, UNSPECIFIED (9) Diabetes Assessment/Plan: bgm morning noted- levemir dose at night increased 18 units levemir morning dose ok Code(s): E11.9 - TYPE 2 DIABETES MELLITUS WITHOUT COMPLICATIONS Qualifiers: Diabetes mellitus type: type 2 (10) CVA (cerebral vascular accident) Assessment/Plan: S/p multiple acute embolic infarcts - s/p trach on trach collar s/p peg now needs snf placement eliquis Code(s): I63.9 - CEREBRAL INFARCTION, UNSPECIFIED Qualifiers: Laterality of affected vessel: unspecified Assessment/Plan ENT to see patient to visualize vocal start eliquis snf placment
[2017-10-24] MEDS ORDERED: PT OWN MED DRAWER 7, Y5N ONE ×3 (10:44→17:09)
[2017-10-24] MEDS: METOPROLOL TARTRATE 50 MG TABLET (FP) NGT SCH ×2 (10:56→23:36)
[2017-10-24] MEDS: RANITIDINE HCL 150 MG TABLET (FP) PO SCH ×2 (10:57→23:38)
[2017-10-24] MEDS: DIGOXIN 0.125 MG TABLET (FP) PEG SCH (10:57)
[2017-10-24] MEDS: ENOXAPARIN NA (PORCINE) 80 MG/0.8 ML DISP.SYRIN SQ SCH (10:57)
[2017-10-24] MEDS: MINERAL OIL/PETROLATUM,WHITE 3.5 GM TUBE OU SCH ×2 (10:58→23:37)
[2017-10-24] MEDS: NYSTATIN 100000 UNIT/GM TOPICAL OINTMENT 15 GM TUBE TP SCH ×2 (10:58→23:37)
[2017-10-24] MEDS: ACETAMINOPHEN 650 MG/20.3 ML ORAL SOLUTION (CUPS) PEG PRN ×2 (10:59→16:38)
[2017-10-24] MEDS: ALBUTEROL SO4 2.5/IPRATROPIUM 0.5 INH SOL 3 ML VIAL.NEB. NEB PRN ×2 (11:51→20:42)
--- NOTE | 2017-10-24 12:42 | PN ---
Progress Note (short form) - Note Progress Note: called by nurse that blood from anus noted hold lovenox gi reconsult dr bermeo iv ppx recheck cbc and coags -possible transfusion if there is a drop Problem List - Problems (1) Hypomagnesemia Code(s): E83.42 - HYPOMAGNESEMIA (2) Fever Code(s): R50.9 - FEVER, UNSPECIFIED (3) UTI (urinary tract infection) Code(s): N39.0 - URINARY TRACT INFECTION, SITE NOT SPECIFIED (4) Sheeba infection Code(s): B37.9 - CANDIDIASIS, UNSPECIFIED (5) Respiratory failure Code(s): J96.90 - RESPIRATORY FAILURE, UNSP, UNSP W HYPOXIA OR HYPERCAPNIA (6) Pneumonia Code(s): J18.9 - PNEUMONIA, UNSPECIFIED ORGANISM (7) Atrial fibrillation Code(s): I48.91 - UNSPECIFIED ATRIAL FIBRILLATION (8) Anemia Code(s): D64.9 - ANEMIA, UNSPECIFIED (9) Diabetes Code(s): E11.9 - TYPE 2 DIABETES MELLITUS WITHOUT COMPLICATIONS Qualifiers: Diabetes mellitus type: type 2 (10) CVA (cerebral vascular accident) Code(s): I63.9 - CEREBRAL INFARCTION, UNSPECIFIED Qualifiers: Laterality of affected vessel: unspecified
--- NOTE | 2017-10-24 13:05 | PN ---
Progress Note, Physician History of Present Illness: REVIEWED - Current Medication List Current Medications: Active Medications Acetaminophen (Tylenol Oral Solution -) 650 mg PEG Q6H PRN PRN Reason: FEVER Last Admin: 10/24/17 10:59 Dose: 650 mg Albuterol/Ipratropium (Duoneb -) 1 amp NEB Q6H PRN PRN Reason: SHORTNESS OF BREATH Last Admin: 10/24/17 11:51 Dose: 1 amp Artificial Tears (Artificial Tears Ointment -) 1 applic OU BID [facility] Last Admin: 10/24/17 10:58 Dose: 1 applic Atorvastatin Calcium (Lipitor -) 20 mg PO HS [facility] Last Admin: 10/23/17 21:43 Dose: 20 mg Digoxin (Lanoxin -) 0.125 mg PEG Q2D@1000 [facility] Last Admin: 10/24/17 10:57 Dose: 0.125 mg Diltiazem HCl 60 mg/ Diltiazem (HCl 30 mg) 90 mg NGT Q6HPO [facility] Last Admin: 10/24/17 12:45 Dose: 90 mg Enoxaparin Sodium (Lovenox -) 80 mg SQ BID [facility] Last Admin: 10/24/17 10:57 Dose: 80 mg IV Flush (Picc Line Flush) 8 ml IVPUSH PRN PRN PRN Reason: Protocol Last Admin: 10/10/17 22:13 Dose: 8 ml Insulin Aspart (Novolog Vial Sliding Scale -) 1 vial SQ Q6H [facility] PRN Reason: Protocol Last Admin: 10/24/17 12:48 Dose: 6 units Insulin Detemir (Levemir Vial) 20 units SQ AM [facility] Last Admin: 10/24/17 06:23 Dose: 20 units Insulin Detemir (Levemir Vial) 18 units SQ HS [facility] Metoprolol Tartrate (Lopressor -) 50 mg NGT BID [facility] Last Admin: 10/24/17 10:56 Dose: 50 mg Mupirocin (Bactroban 2% Ointment -) 1 applic TP TID [facility] Last Admin: 10/24/17 06:24 Dose: 1 applic Nystatin (Mycostatin Ointment -) 1 applic TP BID [facility] Last Admin: 10/24/17 10:58 Dose: 1 applic Ondansetron HCl (Zofran Injection) 4 mg IVPUSH Q6H PRN PRN Reason: NAUSEA Pantoprazole Sodium (Protonix Iv) 40 mg IVPUSH BID [facility] Quetiapine Fumarate (Seroquel -) 25 mg PO [facility] Last Admin: 10/23/17 21:44 Dose: 25 mg Ranitidine HCl (Zantac -) 150 mg PO BID [facility] Last Admin: 10/24/17 10:57 Dose: 150 mg Trazodone HCl (Desyrel -) 50 mg PO [facility] Last Admin: 10/23/17 21:43 Dose: 50 mg - Objective Vital Signs: Vital Signs Temperature 99.2 F 10/24/17 09:00 Pulse Rate 92 H 10/24/17 11:52 Respiratory Rate 16 10/24/17 09:00 Blood Pressure 176/87 10/24/17 09:00 O2 Sat by Pulse Oximetry (%) 97 10/24/17 11:52 Constitutional: Yes: Other (restrained/trach collar in place) Eyes: Yes: EOM Intact HENT: Yes: Normocephalic Neck: Yes: Trachea Midline, Other (trach present) Cardiovascular: Yes: Regular Rate and Rhythm, S1, S2 Respiratory: Yes: Diminished (bases) Gastrointestinal: Yes: Soft Edema: No Neurological: Yes: Pre-Existing Deficit Labs: CBC, BMP 10/23/17 07:00 10/23/17 07:00 INR, PTT INR 0.98 (0.82-1.09) 10/02/17 05:30 - ....Imaging Chest X-ray: Report Reviewed, Image Reviewed Cat Scan: Report Reviewed, Image Reviewed EKG: Report Reviewed Problem List - Problems (1) Anemia Code(s): D64.9 - ANEMIA, UNSPECIFIED (2) Brain metastasis Code(s): C79.31 - SECONDARY MALIGNANT NEOPLASM OF BRAIN (3) CVA (cerebral vascular accident) Code(s): I63.9 - CEREBRAL INFARCTION, UNSPECIFIED Qualifiers: Laterality of affected vessel: unspecified (4) Fever Code(s): R50.9 - FEVER, UNSPECIFIED Qualifiers: Fever type: unspecified Qualified Code(s): R50.9 - Fever, unspecified (5) Headache Code(s): R51 - HEADACHE Qualifiers: Headache chronicity pattern: unspecified pattern Intractability: intractable (6) Hypercapnia Code(s): R06.89 - OTHER ABNORMALITIES OF BREATHING (7) Metastatic colorectal cancer Code(s): C78.5 - SECONDARY MALIGNANT NEOPLASM OF LARGE INTESTINE AND RECTUM (8) Pleural effusion Code(s): J90 - PLEURAL EFFUSION, NOT ELSEWHERE CLASSIFIED (9) Pneumonia Code(s): J18.9 - PNEUMONIA, UNSPECIFIED ORGANISM (10) Respiratory failure Code(s): J96.90 - RESPIRATORY FAILURE, UNSP, UNSP W HYPOXIA OR HYPERCAPNIA (11) Ventilator dependent Code(s): Z99.11 - DEPENDENCE ON RESPIRATOR [VENTILATOR] STATUS Assessment/Plan Multiple Acute Embolic CVA Acute Hypoxic Respiratory Failure s/p Tracheostomy Aspiration Pneumonia Atrial Fibrillation with RVR Metastatic Colon Ca to Lung Acute on Chronic Renal Failure HTN DM Hypercholesterolemia - antibiotics per ID - awaiting thoracentesis - hold eliquis, will place on lovenox for now - titrate rate control - monitor urine output, creatinine - enteral feeds - CPAP/PS as tolerated - DVT/GI prophylaxis - Await ENT yehuda WILSON MD
[2017-10-24] MEDS: PANTOPRAZOLE SODIUM 40 MG VIAL IVPUSH SCH ×2 (13:10→23:36)
--- NOTE | 2017-10-24 13:19 | PN ---
Progress Note (short form) - Note Progress Note: ENT pt off ventilator, tracheotomy in place evaluated for Passy [place] valve, consultation reviewed laryngeal examination indicated prior to valve trial PE: NAD awake, alert responsive nose: deviation of septum, no lesions or bleeding mouth/throat WNL, good oral and oropharyngeal airway Flexible laryngoscopy perfomred via right nostril (topical anesthetic lidocaine 4%/phenylephrine right inferior turbinate edema nasopharynx WNL, clear mucus, mild edema base of tongue WNL epiglottis WNL endolarynx: no lesions ++abundant clear secretions pooled in bilateral pyriform sinuses and laryngeal inlet mild edema of arytenoids and false cords true cords not fully visualized limited vocal cord abduction and adduction, bilateral weakness present. Trach secure, functioning Impression: laryngeal dysfunction s/p prolonged intubation, s/p tracheotomy respiratory failure improved, off ventilator metastatic carcinoma Recommend: continue trach care since cords are more adducted could try Passy [place] Valve, but will continue to require tracheotomy for airway. Ben Rainey MD \ Problem List - Problems (1) Respiratory failure Code(s): J96.90 - RESPIRATORY FAILURE, UNSP, UNSP W HYPOXIA OR HYPERCAPNIA
[2017-10-24 13:29] LABS: HEMATOCRIT 23.9 % (32.4-45.2); HEMOGLOBIN 7.9 GM/dL (10.7-15.3); MCH 28.6 pg (25.7-33.7); MCHC 32.9 g/dl (32.0-36.0); MEAN PLT VOLUME 7.4 fl (7.5-11.1); PLATELET COUNT 304 K/MM3 (134-434); RBC 2.75 M/mm3 (3.60-5.2); RDW 17.1 % (11.6-15.6); WHITE BLOOD COUNT 9.2 K/mm3 (4.0-10.0)
[2017-10-24 13:57] LABS: INR 1.02 (0.82-1.09); PROTHROMBIN TIME (PATIENT) 11.5 SEC (9.98-11.88)
[2017-10-24 14:03] LABS: ALBUMIN 1.7 g/dl (3.4-5.0); ANION GAP 8 (8-16); BILIRUBIN,TOTAL 0.3 mg/dL (0.2-1.0); BLOOD UREA NITROGEN 34 mg/dL (7-18); CALCIUM 8.6 mg/dL (8.5-10.1); CHLORIDE 101 mmol/L (98-107); CO2 28 mmol/L (21-32); CREATININE 1.2 mg/dL (0.55-1.02); GLUCOSE,RANDOM 252 mg/dL (74-106); POTASSIUM 4.8 mmol/L (3.5-5.1); SGOT/AST 22 U/L (15-37); SGPT/ALT 40 U/L (12-78); SODIUM 137 mmol/L (136-145); TOT PROT 5.6 g/dl (6.4-8.2)
[2017-10-24 14:04] LABS: ALK PHOS 130 U/L (45-117)
[2017-10-24 14:22] LABS: ANISOCYTOSIS 1+; MACROCYTOSIS 0; PLATELET ESTIMATE NORMAL
[2017-10-24] MEDS: traZODone HCL 50 MG TABLET (FP) PO SCH (23:36)
[2017-10-24] MEDS: ATORVASTATIN CA 20 MG TABLET (FP) PO SCH (23:36)
[2017-10-24] MEDS: QUEtiapine FUMARATE 25 MG TABLET (FP) PO SCH (23:38)
[2017-10-25] MEDS ORDERED: dilTIAZem HCL 30 MG TABLET (FP) ONE ×4 (05:51→23:18)
[2017-10-25] MEDS ORDERED: dilTIAZem HCL 60 MG TABLET (FP) ONE ×4 (05:51→23:19)
[2017-10-25] MEDS: MUPIROCIN 2% TOPICAL OINTMENT 22 GM TUBE TP SCH ×3 (07:03→22:03)
[2017-10-25] MEDS: DILTIAZEM 60 MG, DILTIAZEM 30 MG NGT SCH ×4 (07:03→23:41)
[2017-10-25] MEDS: INSULIN SLIDING SCALE (NOVOLOG) 1 VIAL SQ SCH ×4 (07:06→23:33)
[2017-10-25] MEDS: INSULIN DETEMIR 100 UNITS/ML MDV SQ SCH ×2 (07:07→23:32)
[2017-10-25 08:05] LABS: HEMATOCRIT 31.6 % (32.4-45.2); HEMOGLOBIN 10.6 GM/dL (10.7-15.3); MCH 28.7 pg (25.7-33.7); MCHC 33.4 g/dl (32.0-36.0); MEAN CELL VOLUME 85.9 fl (80-96); MEAN PLT VOLUME 7.4 fl (7.5-11.1); PLATELET COUNT 326 K/MM3 (134-434); RBC 3.68 M/mm3 (3.60-5.2); RDW 16.8 % (11.6-15.6); WHITE BLOOD COUNT 8.4 K/mm3 (4.0-10.0)
[2017-10-25 10:24] LABS: PLATELET ESTIMATE NORMAL
[2017-10-25] MEDS ORDERED: PT OWN MED DRAWER 7, Y5N ONE (10:29)
--- NOTE | 2017-10-25 10:34 | PN ---
Progress Note, Physician - Current Medication List Current Medications: Active Medications Acetaminophen (Tylenol Oral Solution -) 650 mg PEG Q6H PRN PRN Reason: FEVER Last Admin: 10/24/17 16:38 Dose: 650 mg Albuterol/Ipratropium (Duoneb -) 1 amp NEB Q6H PRN PRN Reason: SHORTNESS OF BREATH Last Admin: 10/24/17 20:42 Dose: 1 amp Artificial Tears (Artificial Tears Ointment -) 1 applic OU BID [facility] Last Admin: 10/24/17 23:37 Dose: 1 applic Atorvastatin Calcium (Lipitor -) 20 mg PO HS [facility] Last Admin: 10/24/17 23:36 Dose: 20 mg Digoxin (Lanoxin -) 0.125 mg PEG Q2D@1000 [facility] Last Admin: 10/24/17 10:57 Dose: 0.125 mg Diltiazem HCl 60 mg/ Diltiazem (HCl 30 mg) 90 mg NGT Q6HPO [facility] Last Admin: 10/25/17 07:03 Dose: 90 mg Enoxaparin Sodium (Lovenox -) 80 mg SQ BID [facility] Last Admin: 10/24/17 10:57 Dose: 80 mg IV Flush (Picc Line Flush) 8 ml IVPUSH PRN PRN PRN Reason: Protocol Last Admin: 10/10/17 22:13 Dose: 8 ml Insulin Aspart (Novolog Vial Sliding Scale -) 1 vial SQ Q6H [facility] PRN Reason: Protocol Last Admin: 10/25/17 07:06 Dose: 6 units Insulin Detemir (Levemir Vial) 20 units SQ AM [facility] Last Admin: 10/25/17 07:07 Dose: 20 units Insulin Detemir (Levemir Vial) 18 units SQ HS [facility] Last Admin: 10/24/17 23:38 Dose: 18 units Metoprolol Tartrate (Lopressor -) 50 mg NGT BID [facility] Last Admin: 10/24/17 23:36 Dose: 50 mg Mupirocin (Bactroban 2% Ointment -) 1 applic TP TID [facility] Last Admin: 10/25/17 07:03 Dose: 1 applic Nystatin (Mycostatin Ointment -) 1 applic TP BID [facility] Last Admin: 10/24/17 23:37 Dose: 1 applic Ondansetron HCl (Zofran Injection) 4 mg IVPUSH Q6H PRN PRN Reason: NAUSEA Pantoprazole Sodium (Protonix Iv) 40 mg IVPUSH BID [facility] Last Admin: 10/24/17 23:36 Dose: 40 mg Quetiapine Fumarate (Seroquel -) 25 mg PO [facility] Last Admin: 10/24/17 23:38 Dose: 25 mg Ranitidine HCl (Zantac -) 150 mg PO BID [facility] Last Admin: 10/24/17 23:38 Dose: 150 mg Trazodone HCl (Desyrel -) 50 mg PO [facility] Last Admin: 10/24/17 23:36 Dose: 50 mg - Objective Vital Signs: Vital Signs Temperature 99.6 F 10/25/17 06:00 Pulse Rate 89 10/25/17 08:34 Respiratory Rate 23 10/25/17 08:31 Blood Pressure 182/88 10/25/17 06:00 O2 Sat by Pulse Oximetry (%) 98 10/25/17 08:34 Cardiovascular: Yes: S1, S2 Respiratory: Yes: Rhonchi Gastrointestinal: Yes: Normal Bowel Sounds, Soft Edema: No Labs: CBC, BMP 10/25/17 07:30 10/24/17 12:55 INR, PTT INR 1.02 (0.82-1.09) 10/24/17 12:55 Problem List - Problems (1) Respiratory failure Code(s): J96.90 - RESPIRATORY FAILURE, UNSP, UNSP W HYPOXIA OR HYPERCAPNIA (2) Brain metastasis Code(s): C79.31 - SECONDARY MALIGNANT NEOPLASM OF BRAIN (3) CVA (cerebral vascular accident) Code(s): I63.9 - CEREBRAL INFARCTION, UNSPECIFIED Qualifiers: Laterality of affected vessel: unspecified (4) Metastatic colorectal cancer Code(s): C78.5 - SECONDARY MALIGNANT NEOPLASM OF LARGE INTESTINE AND RECTUM (5) Atrial fibrillation Code(s): I48.91 - UNSPECIFIED ATRIAL FIBRILLATION (6) Diabetes Code(s): E11.9 - TYPE 2 DIABETES MELLITUS WITHOUT COMPLICATIONS Qualifiers: Diabetes mellitus type: type 2 (7) Hypernatremia Code(s): E87.0 - HYPEROSMOLALITY AND HYPERNATREMIA Assessment/Plan - Problems (1) Hypomagnesemia Assessment/Plan: now magnesium normal Code(s): E83.42 - HYPOMAGNESEMIA (2) Fever Assessment/Plan: Microbiology 02/11/18 00:15 Urine - Urine - Catheterized Urine Culture - Final NO GROWTH OBTAINED 10/16/17 12:48 Blood - Peripheral Venous Blood Culture - Final NO GROWTH AFTER 5 DAYS INCUBATION 10/16/17 11:45 Blood - Peripheral Venous Blood Culture - Final NO GROWTH AFTER 5 DAYS INCUBATION 10/18/17 20:50 Blood - Peripheral Venous Blood Culture - Preliminary NO GROWTH OBTAINED AFTER 96 HOURS, INCUBATION TO CONTINUE FOR 1 DAYS. 10/18/17 20:20 Blood - Peripheral Venous Blood Culture - Preliminary NO GROWTH OBTAINED AFTER 96 HOURS, INCUBATION TO CONTINUE FOR 1 DAYS. off abx Code(s): R50.9 - FEVER, UNSPECIFIED (3) UTI (urinary tract infection) Assessment/Plan: Microbiology 10/09/17 04:30 Urine - Urine - Catheterized Urine Culture - Final Pseudomonas Aeruginosa ceftazidime- course done Code(s): N39.0 - URINARY TRACT INFECTION, SITE NOT SPECIFIED (4) Sheeba infection Assessment/Plan: diflucan 200mg daily- completed topical antifungal cream to groin- completed Code(s): B37.9 - CANDIDIASIS, UNSPECIFIED (5) Respiratory failure Assessment/Plan: s/p tracheostomy now on trach collar 40% bactroban to trach site ENT to see patient to visualize vocal cords Code(s): J96.90 - RESPIRATORY FAILURE, UNSP, UNSP W HYPOXIA OR HYPERCAPNIA (6) Pneumonia Assessment/Plan: off iv zosyn s/p 8 day course abx stopped Code(s): J18.9 - PNEUMONIA, UNSPECIFIED ORGANISM (7) Atrial fibrillation Assessment/Plan: digoxin,cardizem and metoprolol no plan for thoracocetesis will restart eliquis Code(s): I48.91 - UNSPECIFIED ATRIAL FIBRILLATION (8) Anemia Assessment/Plan: ppi h/h stable iron panel noted GI follow up noted Code(s): D64.9 - ANEMIA, UNSPECIFIED (9) Diabetes Assessment/Plan: bgm morning noted- levemir dose at night increased 18 units levemir morning dose ok Code(s): E11.9 - TYPE 2 DIABETES MELLITUS WITHOUT COMPLICATIONS Qualifiers: Diabetes mellitus type: type 2 (10) CVA (cerebral vascular accident) Assessment/Plan: S/p multiple acute embolic infarcts - s/p trach on trach collar s/p peg now needs snf placement eliquis Code(s): I63.9 - CEREBRAL INFARCTION, UNSPECIFIED Qualifiers: Laterality of affected vessel: unspecified Assessment/Plan ENT to see patient to visualize vocal start eliquis snf placment
[2017-10-25] MEDS: PANTOPRAZOLE SODIUM 40 MG VIAL IVPUSH SCH ×2 (10:59→23:38)
[2017-10-25] MEDS: RANITIDINE HCL 150 MG TABLET (FP) PO SCH ×2 (11:00→23:41)
[2017-10-25] MEDS: METOPROLOL TARTRATE 50 MG TABLET (FP) NGT SCH ×2 (11:01→23:41)
[2017-10-25] MEDS: MINERAL OIL/PETROLATUM,WHITE 3.5 GM TUBE OU SCH ×2 (11:02→23:19)
[2017-10-25] MEDS: NYSTATIN 100000 UNIT/GM TOPICAL OINTMENT 15 GM TUBE TP SCH ×2 (11:03→23:19)
--- NOTE | 2017-10-25 12:52 | PN ---
Progress Note (short form) - Note Progress Note: NAD on 40% Trach collar. Saturation 98% ENT followup noted : adducted VC Awake and interactive. Intake & Output 10/22/17 10/23/17 10/24/17 10/25/17 23:59 23:59 23:59 23:59 Intake Total 1660 1530 1410 990 Balance 1660 1530 1410 990 Last Vital Signs Temp Pulse Resp BP Pulse Ox 97.1 F L 79 20 159/77 98 10/25/17 10:00 10/25/17 10:00 10/25/17 10:00 10/25/17 10:00 10/25/17 08:34 Active Medications Acetaminophen (Tylenol Oral Solution -) 650 mg PEG Q6H PRN PRN Reason: FEVER Last Admin: 10/24/17 16:38 Dose: 650 mg Albuterol/Ipratropium (Duoneb -) 1 amp NEB Q6H PRN PRN Reason: SHORTNESS OF BREATH Last Admin: 10/24/17 20:42 Dose: 1 amp Artificial Tears (Artificial Tears Ointment -) 1 applic OU BID [facility] Last Admin: 10/25/17 11:02 Dose: 1 applic Atorvastatin Calcium (Lipitor -) 20 mg PO HS [facility] Last Admin: 10/24/17 23:36 Dose: 20 mg Digoxin (Lanoxin -) 0.125 mg PEG Q2D@1000 [facility] Last Admin: 10/24/17 10:57 Dose: 0.125 mg Diltiazem HCl 60 mg/ Diltiazem (HCl 30 mg) 90 mg NGT Q6HPO [facility] Last Admin: 10/25/17 07:03 Dose: 90 mg Enoxaparin Sodium (Lovenox -) 80 mg SQ BID [facility] Last Admin: 10/24/17 10:57 Dose: 80 mg IV Flush (Picc Line Flush) 8 ml IVPUSH PRN PRN PRN Reason: Protocol Last Admin: 10/10/17 22:13 Dose: 8 ml Insulin Aspart (Novolog Vial Sliding Scale -) 1 vial SQ Q6H [facility] PRN Reason: Protocol Last Admin: 10/25/17 07:06 Dose: 6 units Insulin Detemir (Levemir Vial) 20 units SQ AM [facility] Last Admin: 10/25/17 07:07 Dose: 20 units Insulin Detemir (Levemir Vial) 18 units SQ [facility] Last Admin: 10/24/17 23:38 Dose: 18 units Metoprolol Tartrate (Lopressor -) 50 mg NGT BID [facility] Last Admin: 10/25/17 11:01 Dose: 50 mg Mupirocin (Bactroban 2% Ointment -) 1 applic TP TID [facility] Last Admin: 10/25/17 07:03 Dose: 1 applic Nystatin (Mycostatin Ointment -) 1 applic TP BID [facility] Last Admin: 10/25/17 11:03 Dose: 1 applic Ondansetron HCl (Zofran Injection) 4 mg IVPUSH Q6H PRN PRN Reason: NAUSEA Pantoprazole Sodium (Protonix Iv) 40 mg IVPUSH BID [facility] Last Admin: 10/25/17 10:59 Dose: 40 mg Quetiapine Fumarate (Seroquel -) 25 mg PO [facility] Last Admin: 10/24/17 23:38 Dose: 25 mg Ranitidine HCl (Zantac -) 150 mg PO BID [facility] Last Admin: 10/25/17 11:00 Dose: 150 mg Trazodone HCl (Desyrel -) 50 mg PO [facility] Last Admin: 10/24/17 23:36 Dose: 50 mg Gen: Awake and interactive on Trach collar, NAD Neck: Trach intact with improved localized erythema around Trach site Heart: RRR Lung: few scattered rhonchi Abd: soft, nontender Ext: + edema Laboratory Results - last 24 hr 10/24/17 10/24/17 10/24/17 12:47 12:55 12:55 WBC 9.2 RBC 2.75 L Hgb 7.9 L Hct 23.9 L MCV 87.0 MCH 28.6 MCHC 32.9 RDW 17.1 H Plt Count 304 MPV 7.4 L Neutrophils % No Result Required. Neutrophils % (Manual) 77.0 Band Neutrophils % 4.0 Lymphocytes % No Result Required. Lymphocytes % (Manual) 11.0 D Monocytes % (Manual) 5 Eosinophils % (Manual) 1.0 D Basophils % (Manual) 0.0 Myelocytes % (Man) 2 D Promyelocytes % (Man) 0 Nucleated RBC % 1 H Metamyelocytes 0 D Hypochromia 2+ Platelet Estimate Normal Polychromasia 1+ Poikilocytosis 1+ Anisocytosis 1+ Microcytosis 1+ Macrocytosis 0 Uvaldo Cells 2+ PT with INR 11.50 INR 1.02 Sodium Potassium Chloride Carbon Dioxide Anion Gap BUN Creatinine Creat Clearance w eGFR POC Glucometer 285 Random Glucose Calcium Total Bilirubin AST ALT Alkaline Phosphatase Total Protein Albumin Stool Occult Blood Blood Type Antibody Screen Crossmatch 10/24/17 10/24/17 10/24/17 12:55 15:30 17:49 WBC RBC Hgb Hct MCV MCH MCHC RDW Plt Count MPV Neutrophils % Neutrophils % (Manual) Band Neutrophils % Lymphocytes % Lymphocytes % (Manual) Monocytes % (Manual) Eosinophils % (Manual) Basophils % (Manual) Myelocytes % (Man) Promyelocytes % (Man) Nucleated RBC % Metamyelocytes Hypochromia Platelet Estimate Polychromasia Poikilocytosis Anisocytosis Microcytosis Macrocytosis Irwin Cells PT with INR INR Sodium 137 Potassium 4.8 Chloride 101 Carbon Dioxide 28 Anion Gap 8 BUN 34 H Creatinine 1.2 H Creat Clearance w eGFR 45.83 POC Glucometer 200 Random Glucose 252 H Calcium 8.6 Total Bilirubin 0.3 AST 22 ALT 40 Alkaline Phosphatase 130 H Total Protein 5.6 L Albumin 1.7 L Stool Occult Blood Blood Type O POSITIVE Antibody Screen Negative Crossmatch See Detail 10/24/17 10/24/17 10/25/17 20:30 23:48 07:05 WBC RBC Hgb Hct MCV MCH MCHC RDW Plt Count MPV Neutrophils % Neutrophils % (Manual) Band Neutrophils % Lymphocytes % Lymphocytes % (Manual) Monocytes % (Manual) Eosinophils % (Manual) Basophils % (Manual) Myelocytes % (Man) Promyelocytes % (Man) Nucleated RBC % Metamyelocytes Hypochromia Platelet Estimate Polychromasia Poikilocytosis Anisocytosis Microcytosis Macrocytosis Irwin Cells PT with INR INR Sodium Potassium Chloride Carbon Dioxide Anion Gap BUN Creatinine Creat Clearance w eGFR POC Glucometer 276 265 Random Glucose Calcium Total Bilirubin AST ALT Alkaline Phosphatase Total Protein Albumin Stool Occult Blood Negative Blood Type Antibody Screen Crossmatch 10/25/17 10/25/17 07:30 11:24 WBC 8.4 RBC 3.68 D Hgb 10.6 L D Hct 31.6 L D MCV 85.9 MCH 28.7 MCHC 33.4 RDW 16.8 H Plt Count 326 MPV 7.4 L Neutrophils % No Result Required. Neutrophils % (Manual) 61.6 Band Neutrophils % 2.0 Lymphocytes % No Result Required. Lymphocytes % (Manual) 14.1 D Monocytes % (Manual) 8 Eosinophils % (Manual) 3.0 D Basophils % (Manual) 0.0 Myelocytes % (Man) 6 H D Promyelocytes % (Man) 0 Nucleated RBC % 0 Metamyelocytes 0 Hypochromia Platelet Estimate Normal Polychromasia Poikilocytosis Anisocytosis Microcytosis Macrocytosis Irwin Cells PT with INR INR Sodium Potassium Chloride Carbon Dioxide Anion Gap BUN Creatinine Creat Clearance w eGFR POC Glucometer 193 Random Glucose Calcium Total Bilirubin AST ALT Alkaline Phosphatase Total Protein Albumin Stool Occult Blood Blood Type Antibody Screen Crossmatch ASSESSMENT AND PLAN: Multiple Acute Embolic CVA Acute Hypoxic Respiratory Failure r/o Aspiration Pneumonia Atrial Fibrillation with RVR Metastatic Colon Ca to Lung Acute on Chronic Renal Failure Hyperkalemia HTN DM Hypercholesterolemia - Trach collar as tolerated - Can try PMV with supervision - Currently off ABX - Enteral feeds - Rate control - Lovenox BID - GI prophylaxis Dr Kaplan
[2017-10-25] MEDS: ALBUTEROL SO4 2.5/IPRATROPIUM 0.5 INH SOL 3 ML VIAL.NEB. NEB PRN (21:02)
[2017-10-25] MEDS: ATORVASTATIN CA 20 MG TABLET (FP) PO SCH (23:41)
[2017-10-25] MEDS: traZODone HCL 50 MG TABLET (FP) PO SCH (23:41)
[2017-10-25] MEDS: QUEtiapine FUMARATE 25 MG TABLET (FP) PO SCH (23:42)
[2017-10-26] MEDS ORDERED: dilTIAZem HCL 60 MG TABLET (FP) ONE ×4 (05:08→23:42)
[2017-10-26] MEDS ORDERED: dilTIAZem HCL 30 MG TABLET (FP) ONE ×4 (05:08→23:42)
[2017-10-26] MEDS: INSULIN DETEMIR 100 UNITS/ML MDV SQ SCH ×2 (06:18→22:30)
[2017-10-26] MEDS: DILTIAZEM 60 MG, DILTIAZEM 30 MG NGT SCH ×4 (06:18→23:59)
[2017-10-26] MEDS: MUPIROCIN 2% TOPICAL OINTMENT 22 GM TUBE TP SCH ×3 (06:19→22:30)
[2017-10-26] MEDS: INSULIN SLIDING SCALE (NOVOLOG) 1 VIAL SQ SCH ×4 (06:20→23:59)
[2017-10-26] MEDS: NYSTATIN 100000 UNIT/GM TOPICAL OINTMENT 15 GM TUBE TP SCH ×2 (11:02→22:30)
[2017-10-26] MEDS: MINERAL OIL/PETROLATUM,WHITE 3.5 GM TUBE OU SCH ×2 (11:03→22:30)
--- NOTE | 2017-10-26 12:09 | PN ---
Progress Note (short form) - Note Progress Note: NAD on 40% Trach collar. Saturation 98%. Remains afebrile. Was on AC Mode of vent overnight. Awake and interactive. Intake & Output 10/23/17 10/24/17 10/25/17 10/26/17 23:59 23:59 23:59 23:59 Intake Total 1530 1410 2070 1070 Balance 1530 1410 2070 1070 Weight 183 lb 9.6 oz Last Vital Signs Temp Pulse Resp BP Pulse Ox 98.9 F 70 18 136/88 97 10/26/17 06:00 10/26/17 06:00 10/26/17 06:09 10/26/17 06:00 10/26/17 10:17 Active Medications Acetaminophen (Tylenol Oral Solution -) 650 mg PEG Q6H PRN PRN Reason: FEVER Last Admin: 10/24/17 16:38 Dose: 650 mg Albuterol/Ipratropium (Duoneb -) 1 amp NEB Q6H PRN PRN Reason: SHORTNESS OF BREATH Last Admin: 10/25/17 21:02 Dose: 1 amp Artificial Tears (Artificial Tears Ointment -) 1 applic OU BID [facility] Last Admin: 10/25/17 23:19 Dose: 1 applic Atorvastatin Calcium (Lipitor -) 20 mg PO HS [facility] Last Admin: 10/25/17 23:41 Dose: 20 mg Digoxin (Lanoxin -) 0.125 mg PEG Q2D@1000 [facility] Last Admin: 10/24/17 10:57 Dose: 0.125 mg Diltiazem HCl 60 mg/ Diltiazem (HCl 30 mg) 90 mg NGT Q6HPO [facility] Last Admin: 10/26/17 06:18 Dose: 90 mg Enoxaparin Sodium (Lovenox -) 80 mg SQ BID [facility] Last Admin: 10/24/17 10:57 Dose: 80 mg IV Flush (Picc Line Flush) 8 ml IVPUSH PRN PRN PRN Reason: Protocol Last Admin: 10/10/17 22:13 Dose: 8 ml Insulin Aspart (Novolog Vial Sliding Scale -) 1 vial SQ Q6H [facility] PRN Reason: Protocol Last Admin: 10/26/17 06:20 Dose: 4 units Insulin Detemir (Levemir Vial) 20 units SQ AM [facility] Last Admin: 10/26/17 06:18 Dose: 20 units Insulin Detemir (Levemir Vial) 18 units SQ [facility] Last Admin: 10/25/17 23:32 Dose: 18 units Metoprolol Tartrate (Lopressor -) 50 mg NGT BID [facility] Last Admin: 10/25/17 23:41 Dose: 50 mg Mupirocin (Bactroban 2% Ointment -) 1 applic TP TID [facility] Last Admin: 10/26/17 06:19 Dose: 1 applic Nystatin (Mycostatin Ointment -) 1 applic TP BID [facility] Last Admin: 10/25/17 23:19 Dose: 1 applic Ondansetron HCl (Zofran Injection) 4 mg IVPUSH Q6H PRN PRN Reason: NAUSEA Pantoprazole Sodium (Protonix Iv) 40 mg IVPUSH BID [facility] Last Admin: 10/25/17 23:38 Dose: 40 mg Quetiapine Fumarate (Seroquel -) 25 mg PO [facility] Last Admin: 10/25/17 23:42 Dose: 25 mg Ranitidine HCl (Zantac -) 150 mg PO BID [facility] Last Admin: 10/25/17 23:41 Dose: 150 mg Trazodone HCl (Desyrel -) 50 mg PO [facility] Last Admin: 10/25/17 23:41 Dose: 50 mg Gen: Awake and interactive on Trach collar, NAD Neck: Trach intact with improved localized erythema around Trach site Heart: RRR Lung: few scattered rhonchi Abd: soft, nontender Ext: + edema Laboratory Results - last 24 hr 10/25/17 10/25/17 10/26/17 18:13 23:26 05:30 POC Glucometer 218 263 245 ASSESSMENT AND PLAN: Multiple Acute Embolic CVA Acute Hypoxic Respiratory Failure r/o Aspiration Pneumonia Atrial Fibrillation with RVR Metastatic Colon Ca to Lung Acute on Chronic Renal Failure Hyperkalemia HTN DM Hypercholesterolemia - Trach collar as tolerated / AC Mode of vent at night (Can attempt no vent support at night with continuous observed oximetry) - Can try PMV with supervision - Currently off ABX - Enteral feeds - Rate control - Lovenox BID - GI prophylaxis Dr Kaplan
--- NOTE | 2017-10-26 12:36 | PN ---
Progress Note, Physician - Current Medication List Current Medications: Active Medications Acetaminophen (Tylenol Oral Solution -) 650 mg PEG Q6H PRN PRN Reason: FEVER Last Admin: 10/24/17 16:38 Dose: 650 mg Albuterol/Ipratropium (Duoneb -) 1 amp NEB Q6H PRN PRN Reason: SHORTNESS OF BREATH Last Admin: 10/25/17 21:02 Dose: 1 amp Artificial Tears (Artificial Tears Ointment -) 1 applic OU BID [facility] Last Admin: 10/25/17 23:19 Dose: 1 applic Atorvastatin Calcium (Lipitor -) 20 mg PO HS [facility] Last Admin: 10/25/17 23:41 Dose: 20 mg Digoxin (Lanoxin -) 0.125 mg PEG Q2D@1000 [facility] Last Admin: 10/24/17 10:57 Dose: 0.125 mg Diltiazem HCl 60 mg/ Diltiazem (HCl 30 mg) 90 mg NGT Q6HPO [facility] Last Admin: 10/26/17 06:18 Dose: 90 mg Enoxaparin Sodium (Lovenox -) 80 mg SQ BID [facility] Last Admin: 10/24/17 10:57 Dose: 80 mg IV Flush (Picc Line Flush) 8 ml IVPUSH PRN PRN PRN Reason: Protocol Last Admin: 10/10/17 22:13 Dose: 8 ml Insulin Aspart (Novolog Vial Sliding Scale -) 1 vial SQ Q6H [facility] PRN Reason: Protocol Last Admin: 10/26/17 06:20 Dose: 4 units Insulin Detemir (Levemir Vial) 20 units SQ AM [facility] Last Admin: 10/26/17 06:18 Dose: 20 units Insulin Detemir (Levemir Vial) 18 units SQ HS [facility] Last Admin: 10/25/17 23:32 Dose: 18 units Metoprolol Tartrate (Lopressor -) 50 mg NGT BID [facility] Last Admin: 10/25/17 23:41 Dose: 50 mg Mupirocin (Bactroban 2% Ointment -) 1 applic TP TID [facility] Last Admin: 10/26/17 06:19 Dose: 1 applic Nystatin (Mycostatin Ointment -) 1 applic TP BID [facility] Last Admin: 10/25/17 23:19 Dose: 1 applic Ondansetron HCl (Zofran Injection) 4 mg IVPUSH Q6H PRN PRN Reason: NAUSEA Pantoprazole Sodium (Protonix Iv) 40 mg IVPUSH BID [facility] Last Admin: 10/25/17 23:38 Dose: 40 mg Quetiapine Fumarate (Seroquel -) 25 mg PO [facility] Last Admin: 10/25/17 23:42 Dose: 25 mg Ranitidine HCl (Zantac -) 150 mg PO BID [facility] Last Admin: 10/25/17 23:41 Dose: 150 mg Trazodone HCl (Desyrel -) 50 mg PO [facility] Last Admin: 10/25/17 23:41 Dose: 50 mg - Objective Vital Signs: Vital Signs Temperature 98.9 F 10/26/17 06:00 Pulse Rate 70 10/26/17 06:00 Respiratory Rate 18 10/26/17 06:09 Blood Pressure 136/88 10/26/17 06:00 O2 Sat by Pulse Oximetry (%) 97 10/26/17 10:17 Cardiovascular: Yes: S1, S2 Respiratory: Yes: Rhonchi, Other (on trach) Gastrointestinal: Yes: Normal Bowel Sounds, Soft Labs: CBC, BMP 10/25/17 07:30 10/24/17 12:55 INR, PTT INR 1.02 (0.82-1.09) 10/24/17 12:55 Problem List - Problems (1) Respiratory failure Code(s): J96.90 - RESPIRATORY FAILURE, UNSP, UNSP W HYPOXIA OR HYPERCAPNIA (2) Brain metastasis Code(s): C79.31 - SECONDARY MALIGNANT NEOPLASM OF BRAIN (3) CVA (cerebral vascular accident) Code(s): I63.9 - CEREBRAL INFARCTION, UNSPECIFIED Qualifiers: Laterality of affected vessel: unspecified (4) Metastatic colorectal cancer Code(s): C78.5 - SECONDARY MALIGNANT NEOPLASM OF LARGE INTESTINE AND RECTUM (5) Atrial fibrillation Code(s): I48.91 - UNSPECIFIED ATRIAL FIBRILLATION (6) Diabetes Code(s): E11.9 - TYPE 2 DIABETES MELLITUS WITHOUT COMPLICATIONS Qualifiers: Diabetes mellitus type: type 2 (7) Hypernatremia Code(s): E87.0 - HYPEROSMOLALITY AND HYPERNATREMIA Assessment/Plan - Problems (1) Hypomagnesemia Assessment/Plan: now magnesium normal Code(s): E83.42 - HYPOMAGNESEMIA (2) Fever Assessment/Plan: Microbiology Selected Entries 10/25/17 10/26/17 10/26/17 22:00 02:00 06:00 Temperature 98.1 F 98.7 F 98.9 F 10/19/17 00:15 Urine - Urine - Catheterized Urine Culture - Final NO GROWTH OBTAINED 10/16/17 12:48 Blood - Peripheral Venous Blood Culture - Final NO GROWTH AFTER 5 DAYS INCUBATION 10/16/17 11:45 Blood - Peripheral Venous Blood Culture - Final NO GROWTH AFTER 5 DAYS INCUBATION 10/18/17 20:50 Blood - Peripheral Venous Blood Culture - Preliminary NO GROWTH OBTAINED AFTER 96 HOURS, INCUBATION TO CONTINUE FOR 1 DAYS. 10/18/17 20:20 Blood - Peripheral Venous Blood Culture - Preliminary NO GROWTH OBTAINED AFTER 96 HOURS, INCUBATION TO CONTINUE FOR 1 DAYS. off abx Code(s): R50.9 - FEVER, UNSPECIFIED (3) UTI (urinary tract infection) Assessment/Plan: Microbiology 10/09/17 04:30 Urine - Urine - Catheterized Urine Culture - Final Pseudomonas Aeruginosa ceftazidime- course done Code(s): N39.0 - URINARY TRACT INFECTION, SITE NOT SPECIFIED (4) Sheeba infection Assessment/Plan: diflucan 200mg daily- completed topical antifungal cream to groin- completed Code(s): B37.9 - CANDIDIASIS, UNSPECIFIED (5) Respiratory failure Assessment/Plan: s/p tracheostomy now on trach collar 40% bactroban to trach site ENT to see patient to visualize vocal cords-consult noted Code(s): J96.90 - RESPIRATORY FAILURE, UNSP, UNSP W HYPOXIA OR HYPERCAPNIA (6) Pneumonia Assessment/Plan: off iv zosyn s/p 8 day course abx stopped Code(s): J18.9 - PNEUMONIA, UNSPECIFIED ORGANISM (7) Atrial fibrillation Assessment/Plan: digoxin,cardizem and metoprolol no plan for thoracocetesis will restart eliquis Code(s): I48.91 - UNSPECIFIED ATRIAL FIBRILLATION (8) Anemia Assessment/Plan: ppi h/h stable iron panel noted GI follow up noted Code(s): D64.9 - ANEMIA, UNSPECIFIED (9) Diabetes Assessment/Plan: bgm morning noted- levemir dose at night increased 18 units levemir morning dose ok Code(s): E11.9 - TYPE 2 DIABETES MELLITUS WITHOUT COMPLICATIONS Qualifiers: Diabetes mellitus type: type 2 (10) CVA (cerebral vascular accident) Assessment/Plan: S/p multiple acute embolic infarcts - s/p trach on trach collar s/p peg now needs snf placement eliquis Code(s): I63.9 - CEREBRAL INFARCTION, UNSPECIFIED Qualifiers: Laterality of affected vessel: unspecified Assessment/Plan on eliquis snf placment
[2017-10-26] MEDS ORDERED: PT OWN MED DRAWER 7, Y5N ONE ×2 (12:45→23:43)
[2017-10-26] MEDS: PANTOPRAZOLE SODIUM 40 MG VIAL IVPUSH SCH ×2 (12:48→22:30)
[2017-10-26] MEDS: DIGOXIN 0.125 MG TABLET (FP) PEG SCH (12:48)
[2017-10-26] MEDS: RANITIDINE HCL 150 MG TABLET (FP) PO SCH ×2 (12:48→22:30)
[2017-10-26] MEDS: METOPROLOL TARTRATE 50 MG TABLET (FP) NGT SCH ×2 (12:48→23:55)
[2017-10-26] MEDS: ACETAMINOPHEN 650 MG/20.3 ML ORAL SOLUTION (CUPS) PEG PRN (14:33)
[2017-10-26] MEDS: ATORVASTATIN CA 20 MG TABLET (FP) PO SCH (22:30)
[2017-10-26] MEDS: traZODone HCL 50 MG TABLET (FP) PO SCH (22:30)
[2017-10-26] MEDS: QUEtiapine FUMARATE 25 MG TABLET (FP) PO SCH (22:30)
[2017-10-27] MEDS ORDERED: dilTIAZem HCL 30 MG TABLET (FP) ONE ×4 (05:17→23:57)
[2017-10-27] MEDS ORDERED: dilTIAZem HCL 60 MG TABLET (FP) ONE ×4 (05:17→23:57)
[2017-10-27] MEDS: DILTIAZEM 60 MG, DILTIAZEM 30 MG NGT SCH ×4 (05:33→23:59)
[2017-10-27] MEDS ORDERED: PT OWN MED DRAWER 7, Y5N ONE ×3 (05:33→19:40)
[2017-10-27] MEDS: INSULIN SLIDING SCALE (NOVOLOG) 1 VIAL SQ SCH ×4 (06:05→23:59)
[2017-10-27] MEDS: INSULIN DETEMIR 100 UNITS/ML MDV SQ SCH ×2 (06:05→23:59)
[2017-10-27] MEDS: MUPIROCIN 2% TOPICAL OINTMENT 22 GM TUBE TP SCH ×3 (06:06→22:44)
[2017-10-27] MEDS: METOPROLOL TARTRATE 50 MG TABLET (FP) NGT SCH ×2 (11:35→22:22)
[2017-10-27] MEDS: RANITIDINE HCL 150 MG TABLET (FP) PO SCH ×2 (11:35→22:46)
[2017-10-27] MEDS: NYSTATIN 100000 UNIT/GM TOPICAL OINTMENT 15 GM TUBE TP SCH ×2 (11:36→22:45)
[2017-10-27] MEDS: PANTOPRAZOLE SODIUM 40 MG VIAL IVPUSH SCH ×2 (11:36→22:44)
[2017-10-27] MEDS: MINERAL OIL/PETROLATUM,WHITE 3.5 GM TUBE OU SCH ×2 (11:36→22:45)
[2017-10-27] MEDS: ENOXAPARIN NA (PORCINE) 80 MG/0.8 ML DISP.SYRIN SQ SCH (11:36)
[2017-10-27] MEDS: ACETAMINOPHEN 650 MG/20.3 ML ORAL SOLUTION (CUPS) PEG PRN ×2 (11:37→17:08)
--- NOTE | 2017-10-27 13:38 | PN ---
Progress Note, Physician History of Present Illness: PULMONARY LESS RESPONSIVE TODAY ON TRACH COLLAR SATURATION WELL - Current Medication List Current Medications: Active Medications Acetaminophen (Tylenol Oral Solution -) 650 mg PEG Q6H PRN PRN Reason: FEVER Last Admin: 10/27/17 11:37 Dose: 650 mg Albuterol/Ipratropium (Duoneb -) 1 amp NEB Q6H PRN PRN Reason: SHORTNESS OF BREATH Last Admin: 10/25/17 21:02 Dose: 1 amp Artificial Tears (Artificial Tears Ointment -) 1 applic OU BID [facility] Last Admin: 10/27/17 11:36 Dose: 1 applic Atorvastatin Calcium (Lipitor -) 20 mg PO HS [facility] Last Admin: 10/26/17 22:30 Dose: 20 mg Digoxin (Lanoxin -) 0.125 mg PEG Q2D@1000 [facility] Last Admin: 10/26/17 12:48 Dose: 0.125 mg Diltiazem HCl 60 mg/ Diltiazem (HCl 30 mg) 90 mg NGT Q6HPO [facility] Last Admin: 10/27/17 11:35 Dose: 90 mg Enoxaparin Sodium (Lovenox -) 80 mg SQ BID [facility] Last Admin: 10/27/17 11:36 Dose: Not Given IV Flush (Picc Line Flush) 8 ml IVPUSH PRN PRN PRN Reason: Protocol Last Admin: 10/10/17 22:13 Dose: 8 ml Insulin Aspart (Novolog Vial Sliding Scale -) 1 vial SQ Q6H [facility] PRN Reason: Protocol Last Admin: 10/27/17 12:02 Dose: 2 units Insulin Detemir (Levemir Vial) 20 units SQ AM [facility] Last Admin: 10/27/17 06:05 Dose: 20 units Insulin Detemir (Levemir Vial) 18 units SQ HS [facility] Last Admin: 10/26/17 22:30 Dose: 18 units Metoprolol Tartrate (Lopressor -) 50 mg NGT BID [facility] Last Admin: 10/27/17 11:35 Dose: 50 mg Mupirocin (Bactroban 2% Ointment -) 1 applic TP TID [facility] Last Admin: 10/27/17 06:06 Dose: 1 applic Nystatin (Mycostatin Ointment -) 1 applic TP BID [facility] Last Admin: 10/27/17 11:36 Dose: 1 applic Ondansetron HCl (Zofran Injection) 4 mg IVPUSH Q6H PRN PRN Reason: NAUSEA Pantoprazole Sodium (Protonix Iv) 40 mg IVPUSH BID [facility] Last Admin: 10/27/17 11:36 Dose: 40 mg Quetiapine Fumarate (Seroquel -) [address] [facility] Last Admin: 10/26/17 22:30 Dose: 25 mg Ranitidine HCl (Zantac -) 150 mg PO BID [facility] Last Admin: 10/27/17 11:35 Dose: 150 mg Trazodone HCl (Desyrel -) [address] [facility] Last Admin: 10/26/17 22:30 Dose: 50 mg - Objective Vital Signs: Vital Signs Temperature 97.4 F L 10/27/17 10:00 Pulse Rate 96 H 10/27/17 10:00 Respiratory Rate 18 10/27/17 10:00 Blood Pressure 155/82 10/27/17 10:00 O2 Sat by Pulse Oximetry (%) 97 10/26/17 17:57 Constitutional: Yes: Well Nourished, Calm Eyes: Yes: WNL HENT: Yes: WNL Neck: Yes: Supple (TRACH) Cardiovascular: Yes: Pulse Irregular, S1, S2 Respiratory: Yes: Rhonchi (FEW RHONCHI) Gastrointestinal: Yes: Normal Bowel Sounds, Soft Extremities: Yes: WNL Edema: No Labs: Problem List - Problems (1) Anemia Code(s): D64.9 - ANEMIA, UNSPECIFIED (2) Brain metastasis Code(s): C79.31 - SECONDARY MALIGNANT NEOPLASM OF BRAIN (3) CVA (cerebral vascular accident) Code(s): I63.9 - CEREBRAL INFARCTION, UNSPECIFIED Qualifiers: Laterality of affected vessel: unspecified (4) Metastatic colorectal cancer Code(s): C78.5 - SECONDARY MALIGNANT NEOPLASM OF LARGE INTESTINE AND RECTUM (5) Respiratory failure Code(s): J96.90 - RESPIRATORY FAILURE, UNSP, UNSP W HYPOXIA OR HYPERCAPNIA (6) Atrial fibrillation Code(s): I48.91 - UNSPECIFIED ATRIAL FIBRILLATION (7) HTN (hypertension) Code(s): I10 - ESSENTIAL (PRIMARY) HYPERTENSION (8) Lung mass Code(s): R91.8 - OTHER NONSPECIFIC ABNORMAL FINDING OF LUNG FIELD Assessment/Plan ASSESSMENT AND PLAN: Multiple Acute Embolic CVA Acute Hypoxic Respiratory Failure s/p Tracheostomy Aspiration Pneumonia Atrial Fibrillation with RVR Metastatic Colon Ca to Lung Acute on Chronic Renal Failure HTN DM Hypercholesterolemia - trach collar as tolerated - anticoagulation - monitor urine output, creatinine - enteral feeds - DVT/GI prophylaxis - ABG DR LEONE
--- NOTE | 2017-10-27 13:51 | PN ---
Progress Note, Physician Chief Complaint: patient is on trach collar sleeping h/h improved s/p transfusion no fever - Current Medication List Current Medications: Active Medications Acetaminophen (Tylenol Oral Solution -) 650 mg PEG Q6H PRN PRN Reason: FEVER Last Admin: 10/27/17 11:37 Dose: 650 mg Albuterol/Ipratropium (Duoneb -) 1 amp NEB Q6H PRN PRN Reason: SHORTNESS OF BREATH Last Admin: 10/25/17 21:02 Dose: 1 amp Apixaban (Eliquis -) 5 mg PO BID [facility] Artificial Tears (Artificial Tears Ointment -) 1 applic OU BID [facility] Last Admin: 10/27/17 11:36 Dose: 1 applic Atorvastatin Calcium (Lipitor -) 20 mg PO HS [facility] Last Admin: 10/26/17 22:30 Dose: 20 mg Digoxin (Lanoxin -) 0.125 mg PEG Q2D@1000 [facility] Last Admin: 10/26/17 12:48 Dose: 0.125 mg Diltiazem HCl 60 mg/ Diltiazem (HCl 30 mg) 90 mg NGT Q6HPO [facility] Last Admin: 10/27/17 11:35 Dose: 90 mg IV Flush (Picc Line Flush) 8 ml IVPUSH PRN PRN PRN Reason: Protocol Last Admin: 10/10/17 22:13 Dose: 8 ml Insulin Aspart (Novolog Vial Sliding Scale -) 1 vial SQ Q6H [facility] PRN Reason: Protocol Last Admin: 10/27/17 12:02 Dose: 2 units Insulin Detemir (Levemir Vial) 20 units SQ AM [facility] Last Admin: 10/27/17 06:05 Dose: 20 units Insulin Detemir (Levemir Vial) 18 units SQ HS [facility] Last Admin: 10/26/17 22:30 Dose: 18 units Metoprolol Tartrate (Lopressor -) 50 mg NGT BID [facility] Last Admin: 10/27/17 11:35 Dose: 50 mg Mupirocin (Bactroban 2% Ointment -) 1 applic TP TID [facility] Last Admin: 10/27/17 06:06 Dose: 1 applic Nystatin (Mycostatin Ointment -) 1 applic TP BID [facility] Last Admin: 10/27/17 11:36 Dose: 1 applic Ondansetron HCl (Zofran Injection) 4 mg IVPUSH Q6H PRN PRN Reason: NAUSEA Pantoprazole Sodium (Protonix Iv) 40 mg IVPUSH BID [facility] Last Admin: 10/27/17 11:36 Dose: 40 mg Quetiapine Fumarate (Seroquel -) 25 mg PO [facility] Last Admin: 10/26/17 22:30 Dose: 25 mg Ranitidine HCl (Zantac -) 150 mg PO BID [facility] Last Admin: 10/27/17 11:35 Dose: 150 mg Trazodone HCl (Desyrel -) 50 mg PO [facility] Last Admin: 10/26/17 22:30 Dose: 50 mg - Objective Vital Signs: Vital Signs Temperature 97.4 F L 10/27/17 10:00 Pulse Rate 96 H 10/27/17 10:00 Respiratory Rate 18 10/27/17 10:00 Blood Pressure 155/82 10/27/17 10:00 O2 Sat by Pulse Oximetry (%) 97 10/26/17 17:57 Neck: Yes: Other (trach) Cardiovascular: Yes: Regular Rate and Rhythm, S1, S2 Respiratory: Yes: Diminished Gastrointestinal: Yes: Normal Bowel Sounds, Soft, Other (g tube) Edema: Yes Labs: CBC, BMP 10/25/17 07:30 10/24/17 12:55 INR, PTT INR 1.02 (0.82-1.09) 10/24/17 12:55 Problem List - Problems (1) Respiratory failure Assessment/Plan: s/p tracheostomy now on trach collar 40% bactroban to trach site ENT saw patient PMV as tolerated Code(s): J96.90 - RESPIRATORY FAILURE, UNSP, UNSP W HYPOXIA OR HYPERCAPNIA (2) Hypomagnesemia Assessment/Plan: now magnesium normal Code(s): E83.42 - HYPOMAGNESEMIA (3) Fever Assessment/Plan: Microbiology 10/19/17 00:15 Urine - Urine - Catheterized Urine Culture - Final NO GROWTH OBTAINED 10/16/17 12:48 Blood - Peripheral Venous Blood Culture - Final NO GROWTH AFTER 5 DAYS INCUBATION 10/16/17 11:45 Blood - Peripheral Venous Blood Culture - Final NO GROWTH AFTER 5 DAYS INCUBATION 10/18/17 20:50 Blood - Peripheral Venous Blood Culture - Preliminary NO GROWTH OBTAINED AFTER 96 HOURS, INCUBATION TO CONTINUE FOR 1 DAYS. 10/18/17 20:20 Blood - Peripheral Venous Blood Culture - Preliminary NO GROWTH OBTAINED AFTER 96 HOURS, INCUBATION TO CONTINUE FOR 1 DAYS. off abx- fevers stopped Code(s): R50.9 - FEVER, UNSPECIFIED (4) UTI (urinary tract infection) Assessment/Plan: Microbiology 10/09/17 04:30 Urine - Urine - Catheterized Urine Culture - Final Pseudomonas Aeruginosa ceftazidime- course done Code(s): N39.0 - URINARY TRACT INFECTION, SITE NOT SPECIFIED (5) Sheeba infection Assessment/Plan: diflucan 200mg daily- completed topical antifungal cream to groin- completed Code(s): B37.9 - CANDIDIASIS, UNSPECIFIED (6) Pneumonia Assessment/Plan: iv zosyn s/p 8 day course abx stopped Code(s): J18.9 - PNEUMONIA, UNSPECIFIED ORGANISM (7) Atrial fibrillation Assessment/Plan: digoxin,cardizem and metoprolol no plan for thoracocetesis will restart eliquis Code(s): I48.91 - UNSPECIFIED ATRIAL FIBRILLATION (8) Anemia Assessment/Plan: ppi s/p prbc h/h improved stool occult blood negative Code(s): D64.9 - ANEMIA, UNSPECIFIED (9) Diabetes Assessment/Plan: bgm morning noted- levemir dose at night increased 18 units levemir morning dose ok Code(s): E11.9 - TYPE 2 DIABETES MELLITUS WITHOUT COMPLICATIONS Qualifiers: Diabetes mellitus type: type 2 (10) CVA (cerebral vascular accident) Assessment/Plan: S/p multiple acute embolic infarcts - s/p trach on trach collar s/p peg now needs snf placement eliquis Code(s): I63.9 - CEREBRAL INFARCTION, UNSPECIFIED Qualifiers: Laterality of affected vessel: unspecified Assessment/Plan awaiting placement at [facility] eliquis stop lovenox
[2017-10-27 14:47] LABS: ARTERIAL BLD GAS O2 SATURATION 98.8 % (90-98.9); ARTERIAL BLOOD GAS PCO2 34.9 mmHg (35-45)
[2017-10-27 14:48] LABS: ALLENS TEST POSITIVE; ARTERIAL BLOOD GAS BASE EXCESS 3.8 meq/l (-2-2)
[2017-10-27] MEDS ORDERED: INSULIN (NOVOLOG) ASPART 100 UNITS/ML 10ML VIAL ONE (16:59)
[2017-10-27] MEDS: ALBUTEROL SO4 2.5/IPRATROPIUM 0.5 INH SOL 3 ML VIAL.NEB. NEB PRN (20:30)
[2017-10-27] MEDS: traZODone HCL 50 MG TABLET (FP) PO SCH (22:22)
[2017-10-27] MEDS: ATORVASTATIN CA 20 MG TABLET (FP) PO SCH (22:22)
[2017-10-27] MEDS: QUEtiapine FUMARATE 25 MG TABLET (FP) PO SCH (22:22)
[2017-10-27] MEDS: APIXABAN 5 MG TABLET PO SCH (22:45)
[2017-10-28] MEDS ORDERED: dilTIAZem HCL 30 MG TABLET (FP) ONE ×4 (05:00→22:50)
[2017-10-28] MEDS ORDERED: dilTIAZem HCL 60 MG TABLET (FP) ONE ×4 (05:00→22:50)
[2017-10-28] MEDS: DILTIAZEM 60 MG, DILTIAZEM 30 MG NGT SCH ×4 (05:39→23:02)
[2017-10-28] MEDS: INSULIN SLIDING SCALE (NOVOLOG) 1 VIAL SQ SCH ×4 (06:09→23:03)
[2017-10-28] MEDS: MUPIROCIN 2% TOPICAL OINTMENT 22 GM TUBE TP SCH ×3 (06:30→22:54)
[2017-10-28] MEDS: INSULIN DETEMIR 100 UNITS/ML MDV SQ SCH ×2 (08:08→23:03)
--- NOTE | 2017-10-28 11:12 | PN ---
Progress Note, Physician Chief Complaint: patient vomitted last night tube feeds on hold as wrist restraints - Current Medication List Current Medications: Active Medications Acetaminophen (Tylenol Oral Solution -) 650 mg PEG Q6H PRN PRN Reason: FEVER Last Admin: 10/27/17 17:08 Dose: 650 mg Albuterol/Ipratropium (Duoneb -) 1 amp NEB Q6H PRN PRN Reason: SHORTNESS OF BREATH Last Admin: 10/27/17 20:30 Dose: 1 amp Apixaban (Eliquis -) 5 mg PO BID [facility] Last Admin: 10/27/17 22:45 Dose: 5 mg Artificial Tears (Artificial Tears Ointment -) 1 applic OU BID [facility] Last Admin: 10/27/17 22:45 Dose: 1 applic Atorvastatin Calcium (Lipitor -) 20 mg PO HS [facility] Last Admin: 10/27/17 22:22 Dose: 20 mg Digoxin (Lanoxin -) 0.125 mg PEG Q2D@1000 [facility] Last Admin: 10/26/17 12:48 Dose: 0.125 mg Diltiazem HCl 60 mg/ Diltiazem (HCl 30 mg) 90 mg NGT Q6HPO [facility] Last Admin: 10/28/17 05:39 Dose: 90 mg IV Flush (Picc Line Flush) 8 ml IVPUSH PRN PRN PRN Reason: Protocol Last Admin: 10/10/17 22:13 Dose: 8 ml Insulin Aspart (Novolog Vial Sliding Scale -) 1 vial SQ Q6H [facility] PRN Reason: Protocol Last Admin: 10/28/17 06:09 Dose: 8 units Insulin Detemir (Levemir Vial) 20 units SQ AM [facility] Last Admin: 10/28/17 08:08 Dose: Not Given Insulin Detemir (Levemir Vial) 18 units SQ HS [facility] Last Admin: 10/27/17 23:59 Dose: Not Given Metoprolol Tartrate (Lopressor -) 50 mg NGT BID [facility] Last Admin: 10/27/17 22:22 Dose: 50 mg Mupirocin (Bactroban 2% Ointment -) 1 applic TP TID [facility] Last Admin: 10/28/17 06:30 Dose: 1 applic Nystatin (Mycostatin Ointment -) 1 applic TP BID [facility] Last Admin: 10/27/17 22:45 Dose: 1 applic Ondansetron HCl (Zofran Injection) 4 mg IVPUSH Q6H PRN PRN Reason: NAUSEA Pantoprazole Sodium (Protonix Iv) 40 mg IVPUSH BID [facility] Last Admin: 10/27/17 22:44 Dose: 40 mg Quetiapine Fumarate (Seroquel -) 25 mg PO [facility] Last Admin: 10/27/17 22:22 Dose: 25 mg Ranitidine HCl (Zantac -) 150 mg PO BID [facility] Last Admin: 10/27/17 22:46 Dose: 150 mg Trazodone HCl (Desyrel -) 50 mg PO [facility] Last Admin: 10/27/17 22:22 Dose: 50 mg - Objective Vital Signs: Vital Signs Temperature 97.3 F L 10/28/17 09:00 Pulse Rate 83 10/28/17 09:00 Respiratory Rate 12 10/28/17 09:25 Blood Pressure 135/85 10/28/17 09:00 O2 Sat by Pulse Oximetry (%) 97 10/26/17 17:57 Constitutional: Yes: Calm Neck: Yes: Other (trach) Cardiovascular: Yes: Regular Rate and Rhythm, S1, S2 Respiratory: Yes: Diminished (at bases), Other (trach collar) Gastrointestinal: Yes: Normal Bowel Sounds, Soft Labs: CBC, BMP 10/25/17 07:30 10/24/17 12:55 INR, PTT INR 1.02 (0.82-1.09) 10/24/17 12:55 Problem List - Problems (1) Vomiting alone Assessment/Plan: abdominal xray ordered if no ileus or fecal retention then will restart tube feeds Code(s): R11.11 - VOMITING WITHOUT NAUSEA (2) Respiratory failure Assessment/Plan: s/p tracheostomy now on trach collar 40% bactroban to trach site ENT saw patient PMV as tolerated Code(s): J96.90 - RESPIRATORY FAILURE, UNSP, UNSP W HYPOXIA OR HYPERCAPNIA (3) Hypomagnesemia Assessment/Plan: now magnesium normal Code(s): E83.42 - HYPOMAGNESEMIA (4) Fever Assessment/Plan: Microbiology 10/19/17 00:15 Urine - Urine - Catheterized Urine Culture - Final NO GROWTH OBTAINED 10/16/17 12:48 Blood - Peripheral Venous Blood Culture - Final NO GROWTH AFTER 5 DAYS INCUBATION 10/16/17 11:45 Blood - Peripheral Venous Blood Culture - Final NO GROWTH AFTER 5 DAYS INCUBATION 10/18/17 20:50 Blood - Peripheral Venous Blood Culture - Preliminary NO GROWTH OBTAINED AFTER 96 HOURS, INCUBATION TO CONTINUE FOR 1 DAYS. 10/18/17 20:20 Blood - Peripheral Venous Blood Culture - Preliminary NO GROWTH OBTAINED AFTER 96 HOURS, INCUBATION TO CONTINUE FOR 1 DAYS. off abx- fevers stopped Code(s): R50.9 - FEVER, UNSPECIFIED (5) UTI (urinary tract infection) Assessment/Plan: Microbiology 10/09/17 04:30 Urine - Urine - Catheterized Urine Culture - Final Pseudomonas Aeruginosa ceftazidime- course done Code(s): N39.0 - URINARY TRACT INFECTION, SITE NOT SPECIFIED (6) Sheeba infection Assessment/Plan: diflucan 200mg daily- completed topical antifungal cream to groin- completed Code(s): B37.9 - CANDIDIASIS, UNSPECIFIED (7) Pneumonia Assessment/Plan: iv zosyn s/p 8 day course abx stopped Code(s): J18.9 - PNEUMONIA, UNSPECIFIED ORGANISM (8) Atrial fibrillation Assessment/Plan: digoxin,cardizem and metoprolol no plan for thoracocetesis restarted eliquis Code(s): I48.91 - UNSPECIFIED ATRIAL FIBRILLATION (9) Anemia Assessment/Plan: ppi s/p prbc h/h improved stool occult blood negative Code(s): D64.9 - ANEMIA, UNSPECIFIED (10) Diabetes Assessment/Plan: bgm morning noted- levemir dose at night increased 18 units levemir morning dose ok Code(s): E11.9 - TYPE 2 DIABETES MELLITUS WITHOUT COMPLICATIONS Qualifiers: Diabetes mellitus type: type 2 (11) CVA (cerebral vascular accident) Assessment/Plan: S/p multiple acute embolic infarcts - s/p trach on trach collar s/p peg now needs snf placement eliquis Code(s): I63.9 - CEREBRAL INFARCTION, UNSPECIFIED Qualifiers: Laterality of affected vessel: unspecified
[2017-10-28] MEDS ORDERED: PT OWN MED DRAWER 7, Y5N ONE (11:14)
[2017-10-28] MEDS: METOPROLOL TARTRATE 50 MG TABLET (FP) NGT SCH ×2 (11:17→22:53)
[2017-10-28] MEDS: DIGOXIN 0.125 MG TABLET (FP) PEG SCH (11:17)
[2017-10-28] MEDS: MINERAL OIL/PETROLATUM,WHITE 3.5 GM TUBE OU SCH ×2 (11:17→22:54)
[2017-10-28] MEDS: NYSTATIN 100000 UNIT/GM TOPICAL OINTMENT 15 GM TUBE TP SCH ×2 (11:18→22:53)
[2017-10-28] MEDS: APIXABAN 5 MG TABLET PO SCH ×2 (11:18→22:53)
[2017-10-28] MEDS: RANITIDINE HCL 150 MG TABLET (FP) PO SCH ×2 (11:19→22:55)
[2017-10-28] MEDS: ACETAMINOPHEN 650 MG/20.3 ML ORAL SOLUTION (CUPS) PEG PRN ×2 (12:08→17:35)
[2017-10-28] MEDS: PANTOPRAZOLE SODIUM 40 MG VIAL IVPUSH SCH (12:15)
--- NOTE | 2017-10-28 12:21 | PN ---
Progress Note, SUPPORT SERVICES COORDINATOR - Note Progress Note: Appreciate ENT consult: base of tongue WNL epiglottis WNL endolarynx: no lesions ++abundant clear secretions pooled in bilateral pyriform sinuses and laryngeal inlet mild edema of arytenoids and false cords true cords not fully visualized limited vocal cord abduction and adduction, bilateral weakness present. Trach secure, functioning Impression: laryngeal dysfunction s/p prolonged intubation, s/p tracheotomy respiratory failure improved, off ventilator metastatic carcinoma Recommend: continue trach care since cords are more adducted could try Passy Alcides Valve, but will continue to require tracheotomy for airway. Vomited. TF on hold. I would defer PMV for now with pooling of secretions and aspiration risk. Possibly as pt gets stronger, trial of PMV can be attempted.
--- NOTE | 2017-10-28 12:26 | PN ---
Progress Note, Physician History of Present Illness: pulmonary awake,on vent support ac mode had increased sob on trach collar earlier - Current Medication List Current Medications: Active Medications Acetaminophen (Tylenol Oral Solution -) 650 mg PEG Q6H PRN PRN Reason: FEVER Last Admin: 10/28/17 12:08 Dose: 650 mg Albuterol/Ipratropium (Duoneb -) 1 amp NEB Q6H PRN PRN Reason: SHORTNESS OF BREATH Last Admin: 10/27/17 20:30 Dose: 1 amp Apixaban (Eliquis -) 5 mg PO BID [facility] Last Admin: 10/28/17 11:18 Dose: 5 mg Artificial Tears (Artificial Tears Ointment -) 1 applic OU BID [facility] Last Admin: 10/28/17 11:17 Dose: 1 applic Atorvastatin Calcium (Lipitor -) 20 mg PO HS [facility] Last Admin: 10/27/17 22:22 Dose: 20 mg Digoxin (Lanoxin -) 0.125 mg PEG Q2D@1000 [facility] Last Admin: 10/28/17 11:17 Dose: 0.125 mg Diltiazem HCl 60 mg/ Diltiazem (HCl 30 mg) 90 mg NGT Q6HPO [facility] Last Admin: 10/28/17 11:17 Dose: 90 mg IV Flush (Picc Line Flush) 8 ml IVPUSH PRN PRN PRN Reason: Protocol Last Admin: 10/10/17 22:13 Dose: 8 ml Insulin Aspart (Novolog Vial Sliding Scale -) 1 vial SQ Q6H [facility] PRN Reason: Protocol Last Admin: 10/28/17 12:10 Dose: 6 units Insulin Detemir (Levemir Vial) 20 units SQ AM [facility] Last Admin: 10/28/17 08:08 Dose: Not Given Insulin Detemir (Levemir Vial) 18 units SQ HS [facility] Last Admin: 10/27/17 23:59 Dose: Not Given Metoprolol Tartrate (Lopressor -) 50 mg NGT BID [facility] Last Admin: 10/28/17 11:17 Dose: 50 mg Mupirocin (Bactroban 2% Ointment -) 1 applic TP TID [facility] Last Admin: 10/28/17 06:30 Dose: 1 applic Nystatin (Mycostatin Ointment -) 1 applic TP BID [facility] Last Admin: 10/28/17 11:18 Dose: 1 applic Ondansetron HCl (Zofran Injection) 4 mg IVPUSH Q6H PRN PRN Reason: NAUSEA Quetiapine Fumarate (Seroquel -) 25 mg [address] [facility] Last Admin: 10/27/17 22:22 Dose: 25 mg Ranitidine HCl (Zantac -) 150 mg PO BID [facility] Last Admin: 10/28/17 11:19 Dose: 150 mg Trazodone HCl (Desyrel -) 50 mg PO [facility] Last Admin: 10/27/17 22:22 Dose: 50 mg - Objective Vital Signs: Vital Signs Temperature 97.3 F L 10/28/17 09:00 Pulse Rate 83 10/28/17 11:17 Respiratory Rate 30 H 10/28/17 11:43 Blood Pressure 135/85 10/28/17 09:00 O2 Sat by Pulse Oximetry (%) 97 10/26/17 17:57 Constitutional: Yes: Well Nourished, Calm Eyes: Yes: WNL HENT: Yes: WNL Neck: Yes: Supple (trach) Cardiovascular: Yes: Pulse Irregular, S1, S2 Respiratory: Yes: Rhonchi (few scattered bi. rhonchi) Gastrointestinal: Yes: Normal Bowel Sounds, Soft Extremities: Yes: WNL Edema: No Labs: CBC, BMP Laboratory Tests 10/27/17 14:35 ABG pH 7.50 H ABG pCO2 at Pt Temp 34.9 L ABG pO2 at Pt Temp 114.0 H ABG HCO3 26.7 H ABG O2 Sat (Measured) 98.8 Oxygen Flow Rate Yes Problem List - Problems (1) Anemia Code(s): D64.9 - ANEMIA, UNSPECIFIED (2) Brain metastasis Code(s): C79.31 - SECONDARY MALIGNANT NEOPLASM OF BRAIN (3) CVA (cerebral vascular accident) Code(s): I63.9 - CEREBRAL INFARCTION, UNSPECIFIED Qualifiers: Laterality of affected vessel: unspecified (4) Metastatic colorectal cancer Code(s): C78.5 - SECONDARY MALIGNANT NEOPLASM OF LARGE INTESTINE AND RECTUM (5) Respiratory failure Code(s): J96.90 - RESPIRATORY FAILURE, UNSP, UNSP W HYPOXIA OR HYPERCAPNIA (6) Atrial fibrillation Code(s): I48.91 - UNSPECIFIED ATRIAL FIBRILLATION (7) HTN (hypertension) Code(s): I10 - ESSENTIAL (PRIMARY) HYPERTENSION (8) Lung mass Code(s): R91.8 - OTHER NONSPECIFIC ABNORMAL FINDING OF LUNG FIELD Assessment/Plan ASSESSMENT AND PLAN: Multiple Acute Embolic CVA Acute Hypoxic Respiratory Failure s/p Tracheostomy Aspiration Pneumonia Atrial Fibrillation with RVR Metastatic Colon Ca to Lung Acute on Chronic Renal Failure HTN DM Hypercholesterolemia - vent support - trach collar as tolerated - anticoagulation - monitor urine output, creatinine - enteral feeds - DVT/GI prophylaxis DR LEONE
[2017-10-28] MEDS: SODIUM CHLORIDE 1,000 ML IV SCH (17:36)
[2017-10-28] MEDS ORDERED: INSULIN (NOVOLOG MIX 70/30) 100 UNITS/ML MDV SQ ONE (19:43)
[2017-10-28] MEDS ORDERED: KETOROLAC TROMETHAMINE 15 MG/ML VIAL IVPUSH ONE (19:45)
[2017-10-28] MEDS ORDERED: KETOROLAC TROMETHAMINE 15 MG/ML VIAL IVPB ONE (19:45)
[2017-10-28] MEDS: ALBUTEROL SO4 2.5/IPRATROPIUM 0.5 INH SOL 3 ML VIAL.NEB. NEB PRN (20:30)
[2017-10-28] MEDS: ATORVASTATIN CA 20 MG TABLET (FP) PO SCH (22:52)
[2017-10-28] MEDS: traZODone HCL 50 MG TABLET (FP) PO SCH (22:52)
[2017-10-28] MEDS: QUEtiapine FUMARATE 25 MG TABLET (FP) PO SCH (22:55)
[2017-10-29] MEDS ORDERED: dilTIAZem HCL 30 MG TABLET (FP) ONE ×4 (05:37→22:37)
[2017-10-29] MEDS ORDERED: dilTIAZem HCL 60 MG TABLET (FP) ONE ×4 (05:38→22:37)
[2017-10-29] MEDS: DILTIAZEM 60 MG, DILTIAZEM 30 MG NGT SCH ×4 (05:58→23:02)
[2017-10-29] MEDS: MUPIROCIN 2% TOPICAL OINTMENT 22 GM TUBE TP SCH ×3 (05:58→22:48)
[2017-10-29] MEDS: SODIUM CHLORIDE 1,000 ML IV SCH ×2 (05:59→18:16)
[2017-10-29] MEDS: ALBUTEROL SO4 2.5/IPRATROPIUM 0.5 INH SOL 3 ML VIAL.NEB. NEB PRN (06:00)
[2017-10-29] MEDS: ONDANSETRON 4 MG/2 ML VIAL IVPUSH PRN (06:02)
[2017-10-29] MEDS: INSULIN DETEMIR 100 UNITS/ML MDV SQ SCH ×2 (06:03→22:56)
[2017-10-29] MEDS: INSULIN SLIDING SCALE (NOVOLOG) 1 VIAL SQ SCH ×4 (06:03→23:02)
[2017-10-29] MEDS ORDERED: PT OWN MED DRAWER 7, Y5N ONE (09:58)
[2017-10-29] MEDS: METOPROLOL TARTRATE 50 MG TABLET (FP) NGT SCH ×2 (10:02→22:45)
[2017-10-29] MEDS: APIXABAN 5 MG TABLET PO SCH ×2 (10:08→22:46)
[2017-10-29] MEDS: NYSTATIN 100000 UNIT/GM TOPICAL OINTMENT 15 GM TUBE TP SCH ×2 (10:09→22:46)
[2017-10-29] MEDS: MINERAL OIL/PETROLATUM,WHITE 3.5 GM TUBE OU SCH ×2 (10:10→22:46)
[2017-10-29] MEDS: RANITIDINE HCL 150 MG TABLET (FP) PO SCH ×2 (10:10→22:47)
--- NOTE | 2017-10-29 10:34 | PN ---
Progress Note, Physician Chief Complaint: AWAKE , SHIVERING, WITH FACIAL RIGORS ALERT TO VERBAL STIMULI NPO EXCEPT MEDS B/C VOMITING FEEDINGS PER GT ON HOLD - Current Medication List Current Medications: Active Medications Acetaminophen (Tylenol Oral Solution -) 650 mg PEG Q6H PRN PRN Reason: FEVER Last Admin: 10/28/17 17:35 Dose: 650 mg Albuterol/Ipratropium (Duoneb -) 1 amp NEB Q6H PRN PRN Reason: SHORTNESS OF BREATH Last Admin: 10/29/17 06:00 Dose: 1 amp Apixaban (Eliquis -) 5 mg PO BID [facility] Last Admin: 10/29/17 10:08 Dose: 5 mg Artificial Tears (Artificial Tears Ointment -) 1 applic OU BID [facility] Last Admin: 10/29/17 10:10 Dose: 1 applic Atorvastatin Calcium (Lipitor -) 20 mg PO HS [facility] Last Admin: 10/28/17 22:52 Dose: 20 mg Digoxin (Lanoxin -) 0.125 mg PEG Q2D@1000 [facility] Last Admin: 10/28/17 11:17 Dose: 0.125 mg Diltiazem HCl 60 mg/ Diltiazem (HCl 30 mg) 90 mg NGT Q6HPO [facility] Last Admin: 10/29/17 05:58 Dose: 90 mg IV Flush (Picc Line Flush) 8 ml IVPUSH PRN PRN PRN Reason: Protocol Last Admin: 10/10/17 22:13 Dose: 8 ml Sodium Chloride (Normal Saline -) 1,000 mls @ 75 mls/hr IV ASDIR [facility] Last Admin: 10/29/17 05:59 Dose: 75 mls/hr Insulin Aspart (Novolog Vial Sliding Scale -) 1 vial SQ Q6H [facility] PRN Reason: Protocol Last Admin: 10/29/17 06:03 Dose: 8 units Insulin Detemir (Levemir Vial) 20 units SQ AM [facility] Last Admin: 10/29/17 06:03 Dose: 20 units Insulin Detemir (Levemir Vial) 18 units SQ HS [facility] Last Admin: 10/28/17 23:03 Dose: 18 units Metoprolol Tartrate (Lopressor -) 50 mg NGT BID [facility] Last Admin: 10/29/17 10:02 Dose: 50 mg Mupirocin (Bactroban 2% Ointment -) 1 applic TP TID [facility] Last Admin: 10/29/17 05:58 Dose: 1 applic Nystatin (Mycostatin Ointment -) 1 applic TP BID [facility] Last Admin: 10/29/17 10:09 Dose: 1 applic Ondansetron HCl (Zofran Injection) 4 mg IVPUSH Q6H PRN PRN Reason: NAUSEA Last Admin: 10/29/17 06:02 Dose: 4 mg Quetiapine Fumarate (Seroquel -) [address] [facility] Last Admin: 10/28/17 22:55 Dose: 25 mg Ranitidine HCl (Zantac -) 150 mg PO BID [facility] Last Admin: 10/29/17 10:10 Dose: 150 mg Trazodone HCl (Desyrel -) [address] [facility] Last Admin: 10/28/17 22:52 Dose: 50 mg - Objective Vital Signs: Vital Signs Temperature 99.2 F 10/29/17 09:53 Pulse Rate 110 H 10/29/17 09:53 Respiratory Rate 20 10/29/17 08:47 Blood Pressure 161/92 10/29/17 09:53 O2 Sat by Pulse Oximetry (%) 100 10/28/17 13:00 Constitutional: Yes: Moderate Distress Eyes: Yes: WNL HENT: Yes: WNL Neck: Yes: WNL Cardiovascular: Yes: Pulse Irregular Respiratory: Yes: Other (TRACH COLLAR ON ) Gastrointestinal: Yes: Vomiting Genitourinary: Yes: Incontinence Musculoskeletal: Yes: Muscle Weakness Extremities: Yes: Other Edema: Yes Integumentary: Yes: Pressure Ulcer Wound/Incision: Yes: Other Neurological: Yes: Unsteady Gait, Weakness ...Motor Strength: LLE, RLE Psychiatric: Yes: Other Labs: CBC, BMP 10/25/17 07:30 10/24/17 12:55 INR, PTT INR 1.02 (0.82-1.09) 10/24/17 12:55 Problem List - Problems (1) Brain metastasis Code(s): C79.31 - SECONDARY MALIGNANT NEOPLASM OF BRAIN (2) Headache Code(s): R51 - HEADACHE Qualifiers: Headache chronicity pattern: unspecified pattern Intractability: intractable (3) Intractable vomiting with nausea Code(s): R11.2 - NAUSEA WITH VOMITING, UNSPECIFIED Qualifiers: Vomiting type: unspecified Qualified Code(s): R11.2 - Nausea with vomiting , unspecified (4) SUSAN (acute kidney injury) Code(s): N17.9 - ACUTE KIDNEY FAILURE, UNSPECIFIED (5) Cancer, colon Code(s): C18.9 - MALIGNANT NEOPLASM OF COLON, UNSPECIFIED Qualifiers: Colon location: unspecified part of colon Qualified Code(s): C18.9 - Malignant neoplasm of colon, unspecified (6) Lung mass Code(s): R91.8 - OTHER NONSPECIFIC ABNORMAL FINDING OF LUNG FIELD (7) CVA (cerebral vascular accident) Code(s): I63.9 - CEREBRAL INFARCTION, UNSPECIFIED Qualifiers: Laterality of affected vessel: unspecified (8) Pleural effusion Code(s): J90 - PLEURAL EFFUSION, NOT ELSEWHERE CLASSIFIED (9) Fever Code(s): R50.9 - FEVER, UNSPECIFIED Qualifiers: Fever type: unspecified Qualified Code(s): R50.9 - Fever, unspecified (10) Ventilator dependent Code(s): Z99.11 - DEPENDENCE ON RESPIRATOR [VENTILATOR] STATUS (11) Weakness due to acute cerebrovascular accident (CVA) Code(s): I63.9 - CEREBRAL INFARCTION, UNSPECIFIED; R53.1 - WEAKNESS (12) Aspiration into airway Code(s): T17.908A - UNSP FB IN RESP TRACT, PART UNSP CAUSING OTH INJURY, INIT Assessment/Plan SEPSIS WORKUP VILLAFUERTE CULTURE HOLD FEEDS CT CHEST/ABD R/O ASPIRATION PNA? EKG NOW GI/ID FOLLOW UP RESP SUPPORT PULM FOLLOW UP
[2017-10-29 11:17] LABS: HEMATOCRIT 32.1 % (32.4-45.2); HEMOGLOBIN 10.5 GM/dL (10.7-15.3); MCH 28.4 pg (25.7-33.7); MCHC 32.6 g/dl (32.0-36.0); MEAN CELL VOLUME 86.9 fl (80-96); MEAN PLT VOLUME 7.1 fl (7.5-11.1); PLATELET COUNT 371 K/MM3 (134-434); RBC 3.69 M/mm3 (3.60-5.2); RDW 17.2 % (11.6-15.6); WHITE BLOOD COUNT 10.5 K/mm3 (4.0-10.0)
[2017-10-29 11:37] LABS: ANION GAP 11 (8-16); BLOOD UREA NITROGEN 31 mg/dL (7-18); CALCIUM 8.5 mg/dL (8.5-10.1); CHLORIDE 105 mmol/L (98-107); CO2 23 mmol/L (21-32); GLUCOSE,RANDOM 290 mg/dL (74-106); MAGNESIUM 2.1 mg/dL (1.8-2.4); POTASSIUM 4.3 mmol/L (3.5-5.1); SODIUM 139 mmol/L (136-145)
[2017-10-29 11:43] LABS: ALBUMIN 2.4 g/dl (3.4-5.0); ALK PHOS 159 U/L (45-117); BILIRUBIN,TOTAL 0.4 mg/dL (0.2-1.0); CREATININE 1.5 mg/dL (0.55-1.02); PHOSPHOROUS 3.5 mg/dL (2.5-4.9); SGOT/AST 16 U/L (15-37); SGPT/ALT 39 U/L (12-78); TOT PROT 6.5 g/dl (6.4-8.2)
[2017-10-29] MEDS ORDERED: INSULIN (NOVOLOG) ASPART 100 UNITS/ML 10ML VIAL ONE (12:07)
--- NOTE | 2017-10-29 12:16 | PN ---
Progress Note (short form) - Note Progress Note: ENT interim events noted requires assisted ventilation fever noted since laryngoscopy last week showed limited vocal cord mobility, Passy Oriska Valve deferred for now. PE NAD awake Trach secure, functioning, no audible leak, no drainage sutures removed from flange Impression: stable trach status respiratory failure, requires assistance via trach s/p CVA metastatic colon cancer Recommend: continue trach care ventilator as per Pulmonary Ben Rainey MD FACS Problem List - Problems (1) Respiratory failure Code(s): J96.90 - RESPIRATORY FAILURE, UNSP, UNSP W HYPOXIA OR HYPERCAPNIA
[2017-10-29] MEDS: ACETAMINOPHEN 650 MG/20.3 ML ORAL SOLUTION (CUPS) PEG PRN ×2 (12:25→19:07)
--- NOTE | 2017-10-29 12:46 | PN ---
GI Progress Note Subjective: GI Follow-up: Dr. Headley covering for Dr. Redding Patient admitted since 09/10/17 Dr. Redding placed PEG 10/02/[address] Jones regularly and daughter reports that Ms. Neely had colonoscopy with him 06/24 Nurse reports vomiting of tube feeds from yesterday. Tube feeds held No vomiting today Diarrhea reported - Objective Vital Signs: Vital Signs Temperature 101.5 F H 10/29/17 10:36 Pulse Rate 115 H 10/29/17 10:36 Respiratory Rate 40 H 10/29/17 10:36 Blood Pressure 125/82 10/29/17 10:36 O2 Sat by Pulse Oximetry (%) 100 10/28/17 13:00 Constitutional: Calm Eyes: Yes: PERRL Cardiovascular: Yes: Tachycardia Respiratory: Yes: Diminished (at bases b/l) Gastrointestinal Inspection: Yes: Scars (Multiple surgical scars). No: Distention ...Auscultate: Yes: Hypoactive Bowel Sounds ...Palpate: Yes: Soft. No: Hepatomegaly, Splenomegaly, Tenderness (Non tender to palpation) ...Percussion: No: Tympanitic ...Rectal Exam: Yes: Other (No external lesions, nodular distal rectal mucosa. No fecal impaction.) Edema: No (No LE edema) Neurological: Yes: Alert Labs: CBC, BMP 10/29/17 10:42 10/29/17 10:42 INR, PTT INR 1.02 (0.82-1.09) 10/24/17 12:55 C. Diff 10/12/17: negative Problem List - Problems (1) Vomiting Assessment/Plan: For CT scan of the abdomen and pelvis with PO contrast through G-Tube to assess for bowel pathology. No dilated bowel loops on recent AXR Consider reevaluation for central causes of vomiting especially given previous MRI findings (ie brain mets) Check stool for C. Diff given fevers / loose BM's Will need furthert evaluation of nodular distal rectal mucosa noted on physical exam when acute issues are resolved Aspiration precautions Dr. Redding returns 11/03 Code(s): R11.10 - VOMITING, UNSPECIFIED
--- NOTE | 2017-10-29 13:03 | PN ---
Progress Note (short form) - Note Progress Note: PULMONARY FEBRILE AWAKE/ALERT REMAINS RESTRAINED DUE TO ATTEMPTS TO REMOVE TRACH ANICTERIC DIMINISHED BREATH SOUNDS B/L S1S2 BS+ PEG NO EDEMA LABS/MEDS/NOTES/IMAGES/MICRO Multiple Acute Embolic CVA/?metastatic lesions Acute Hypoxic Respiratory Failure s/p Tracheostomy Aspiration Pneumonia Atrial Fibrillation with RVR Metastatic Colon Ca to Lung Large right base lung mass/left infiltrate with effusion Acute on Chronic Renal Failure HTN DM Hypercholesterolemia - vent support - trach collar as tolerated/a/c mode when sob - cautious use of anticoagulation in setting of possible brain mets - monitor urine output, creatinine - enteral feeds - DVT/GI prophylaxis - Need to determine goals of care Marley WILSON MD Problem List - Problems (1) Anemia Code(s): D64.9 - ANEMIA, UNSPECIFIED (2) Brain metastasis Code(s): C79.31 - SECONDARY MALIGNANT NEOPLASM OF BRAIN (3) CVA (cerebral vascular accident) Code(s): I63.9 - CEREBRAL INFARCTION, UNSPECIFIED (4) Fever Code(s): R50.9 - FEVER, UNSPECIFIED Qualifiers: Qualified Code(s): R50.9 - Fever, unspecified (5) Headache Code(s): R51 - HEADACHE (6) Hypercapnia Code(s): R06.89 - OTHER ABNORMALITIES OF BREATHING (7) Metastatic colorectal cancer Code(s): C78.5 - SECONDARY MALIGNANT NEOPLASM OF LARGE INTESTINE AND RECTUM (8) Pleural effusion Code(s): J90 - PLEURAL EFFUSION, NOT ELSEWHERE CLASSIFIED (9) Pneumonia Code(s): J18.9 - PNEUMONIA, UNSPECIFIED ORGANISM (10) Respiratory failure Code(s): J96.90 - RESPIRATORY FAILURE, UNSP, UNSP W HYPOXIA OR HYPERCAPNIA (11) Ventilator dependent Code(s): Z99.11 - DEPENDENCE ON RESPIRATOR [VENTILATOR] STATUS
--- NOTE | 2017-10-29 16:24 | EKG ---
Test Reason : Blood Pressure : / mmHG Vent. Rate : 113 BPM Atrial Rate : 113 BPM P-R Int : 130 ms QRS Dur : 074 ms QT Int : 292 ms P-R-T Axes : 071 052 199 degrees QTc Int : 400 ms SINUS TACHYCARDIA ABNORMAL ECG WHEN COMPARED WITH ECG OF 18-OCT-2017 20:28, NO SIGNIFICANT CHANGE WAS FOUND Confirmed by JANAK ALBERTO MD ([id number]) on 10/29/2017 4:23:47 PM Referred By: ZULEYKA KIRKLAND Confirmed By:JANAK ALBERTO MD
[2017-10-29] MEDS: ATORVASTATIN CA 20 MG TABLET (FP) PO SCH (22:46)
[2017-10-29] MEDS: traZODone HCL 50 MG TABLET (FP) PO SCH (22:46)
[2017-10-29] MEDS: QUEtiapine FUMARATE 25 MG TABLET (FP) PO SCH (22:47)
[2017-10-30] MEDS ORDERED: dilTIAZem HCL 30 MG TABLET (FP) ONE ×4 (06:08→23:40)
[2017-10-30] MEDS ORDERED: dilTIAZem HCL 60 MG TABLET (FP) ONE ×4 (06:08→23:40)
[2017-10-30] MEDS: INSULIN DETEMIR 100 UNITS/ML MDV SQ SCH ×2 (06:25→22:07)
[2017-10-30] MEDS: INSULIN SLIDING SCALE (NOVOLOG) 1 VIAL SQ SCH ×3 (06:25→18:02)
[2017-10-30] MEDS: MUPIROCIN 2% TOPICAL OINTMENT 22 GM TUBE TP SCH ×3 (06:25→22:40)
[2017-10-30] MEDS: DILTIAZEM 60 MG, DILTIAZEM 30 MG NGT SCH ×4 (06:25→23:51)
[2017-10-30] MEDS: SODIUM CHLORIDE 1,000 ML IV SCH ×2 (06:28→18:11)
[2017-10-30] MEDS ORDERED: INSULIN (NOVOLOG) ASPART 100 UNITS/ML 10ML VIAL ONE (06:51)
[2017-10-30] MEDS ORDERED: PT OWN MED DRAWER 7, Y5N ONE ×4 (06:51→21:25)
[2017-10-30] MEDS: MINERAL OIL/PETROLATUM,WHITE 3.5 GM TUBE OU SCH ×2 (09:52→21:35)
[2017-10-30] MEDS: APIXABAN 5 MG TABLET PO SCH ×2 (09:53→21:34)
[2017-10-30] MEDS: METOPROLOL TARTRATE 50 MG TABLET (FP) NGT SCH ×2 (09:53→21:34)
[2017-10-30] MEDS: DIGOXIN 0.125 MG TABLET (FP) PEG SCH (09:53)
[2017-10-30] MEDS: RANITIDINE HCL 150 MG TABLET (FP) PO SCH ×2 (09:55→21:33)
[2017-10-30] MEDS: NYSTATIN 100000 UNIT/GM TOPICAL OINTMENT 15 GM TUBE TP SCH ×2 (09:57→21:35)
--- NOTE | 2017-10-30 10:08 | PN ---
Progress Note, Physician Chief Complaint: ASLEEP ON VENT/TRACHEOSTOMY NOTES AND EVENTS REVIEWED FEEDS ON HOLD - Current Medication List Current Medications: Active Medications Acetaminophen (Tylenol Oral Solution -) 650 mg PEG Q6H PRN PRN Reason: FEVER Last Admin: 10/29/17 19:07 Dose: 650 mg Albuterol/Ipratropium (Duoneb -) 1 amp NEB Q6H PRN PRN Reason: SHORTNESS OF BREATH Last Admin: 10/29/17 06:00 Dose: 1 amp Apixaban (Eliquis -) 5 mg PO BID [facility] Last Admin: 10/30/17 09:53 Dose: 5 mg Artificial Tears (Artificial Tears Ointment -) 1 applic OU BID [facility] Last Admin: 10/30/17 09:52 Dose: 1 applic Atorvastatin Calcium (Lipitor -) 20 mg PO HS [facility] Last Admin: 10/29/17 22:46 Dose: 20 mg Digoxin (Lanoxin -) 0.125 mg PEG Q2D@1000 [facility] Last Admin: 10/30/17 09:53 Dose: 0.125 mg Diltiazem HCl 60 mg/ Diltiazem (HCl 30 mg) 90 mg NGT Q6HPO [facility] Last Admin: 10/30/17 06:25 Dose: 90 mg IV Flush (Picc Line Flush) 8 ml IVPUSH PRN PRN PRN Reason: Protocol Last Admin: 10/10/17 22:13 Dose: 8 ml Sodium Chloride (Normal Saline -) 1,000 mls @ 75 mls/hr IV ASDIR [facility] Last Admin: 10/30/17 06:28 Dose: 75 mls/hr Insulin Aspart (Novolog Vial Sliding Scale -) 1 vial SQ Q6H [facility] PRN Reason: Protocol Last Admin: 10/30/17 06:25 Dose: Not Given Insulin Detemir (Levemir Vial) 20 units SQ AM [facility] Last Admin: 10/30/17 06:25 Dose: Not Given Insulin Detemir (Levemir Vial) 18 units SQ HS [facility] Last Admin: 10/29/17 22:56 Dose: Not Given Metoprolol Tartrate (Lopressor -) 50 mg NGT BID [facility] Last Admin: 10/30/17 09:53 Dose: 50 mg Mupirocin (Bactroban 2% Ointment -) 1 applic TP TID [facility] Last Admin: 10/30/17 06:25 Dose: 1 applic Nystatin (Mycostatin Ointment -) 1 applic TP BID [facility] Last Admin: 10/30/17 09:57 Dose: 1 applic Ondansetron HCl (Zofran Injection) 4 mg IVPUSH Q6H PRN PRN Reason: NAUSEA Last Admin: 10/29/17 06:02 Dose: 4 mg Quetiapine Fumarate (Seroquel -) 25 mg PO HS [facility] Last Admin: 10/29/17 22:47 Dose: 25 mg Ranitidine HCl (Zantac -) 150 mg PO BID [facility] Last Admin: 10/30/17 09:55 Dose: 150 mg Trazodone HCl (Desyrel -) 50 mg PO [facility] Last Admin: 10/29/17 22:46 Dose: 50 mg - Objective Vital Signs: Vital Signs Temperature 98.4 F 10/30/17 07:30 Pulse Rate 84 10/30/17 09:53 Respiratory Rate 17 10/30/17 09:08 Blood Pressure 149/73 10/30/17 07:30 O2 Sat by Pulse Oximetry (%) 100 10/30/17 09:09 Constitutional: Yes: Mild Distress Eyes: Yes: WNL HENT: Yes: WNL Neck: Yes: WNL Cardiovascular: Yes: Pulse Irregular Respiratory: Yes: Mechanically Ventilated, Rhonchi Gastrointestinal: Yes: Distention Genitourinary: Yes: Incontinence Musculoskeletal: Yes: Muscle Weakness Extremities: Yes: Other Edema: Yes Peripheral Pulses WNL: Yes Integumentary: Yes: Pressure Ulcer, Venous Stasis Changes Wound/Incision: Yes: Dressing Dry and Intact, Other Neurological: Yes: Confusion, Pre-Existing Deficit, Unsteady Gait, Weakness ...Motor Strength: LLE, RLE Psychiatric: Yes: Other Labs: CBC, BMP 10/29/17 10:42 10/29/17 10:42 INR, PTT INR 1.02 (0.82-1.09) 10/24/17 12:55 Problem List - Problems (1) Brain metastasis Code(s): C79.31 - SECONDARY MALIGNANT NEOPLASM OF BRAIN (2) Headache Code(s): R51 - HEADACHE Qualifiers: Headache chronicity pattern: unspecified pattern Intractability: intractable (3) Intractable vomiting with nausea Code(s): R11.2 - NAUSEA WITH VOMITING, UNSPECIFIED Qualifiers: Vomiting type: unspecified Qualified Code(s): R11.2 - Nausea with vomiting , unspecified (4) SUSAN (acute kidney injury) Code(s): N17.9 - ACUTE KIDNEY FAILURE, UNSPECIFIED (5) Cancer, colon Code(s): C18.9 - MALIGNANT NEOPLASM OF COLON, UNSPECIFIED Qualifiers: Colon location: unspecified part of colon Qualified Code(s): C18.9 - Malignant neoplasm of colon, unspecified (6) Lung mass Code(s): R91.8 - OTHER NONSPECIFIC ABNORMAL FINDING OF LUNG FIELD (7) CVA (cerebral vascular accident) Code(s): I63.9 - CEREBRAL INFARCTION, UNSPECIFIED Qualifiers: Laterality of affected vessel: unspecified (8) Pleural effusion Code(s): J90 - PLEURAL EFFUSION, NOT ELSEWHERE CLASSIFIED (9) Fever Code(s): R50.9 - FEVER, UNSPECIFIED Qualifiers: Fever type: unspecified Qualified Code(s): R50.9 - Fever, unspecified (10) Ventilator dependent Code(s): Z99.11 - DEPENDENCE ON RESPIRATOR [VENTILATOR] STATUS (11) Weakness due to acute cerebrovascular accident (CVA) Code(s): I63.9 - CEREBRAL INFARCTION, UNSPECIFIED; R53.1 - WEAKNESS (12) Aspiration into airway Code(s): T17.908A - UNSP FB IN RESP TRACT, PART UNSP CAUSING OTH INJURY, INIT (13) Ileus Code(s): K56.7 - ILEUS, UNSPECIFIED (14) Vomiting Code(s): R11.10 - VOMITING, UNSPECIFIED Assessment/Plan GI NOTES REVIEWED AGREE THAT N/V SHOULD BE DIFFERENTIATED FROM CENTRAL CAUSE VS ILEUS, CT ABD NOT CLEAR CONTINUE IVF SURGERY CONSULT DR BLACKWOOD ILEUS EVAL CONT VENT SUPPORT JALEN KUHN FOR AFIB BGM CONTROL WOUND CARE
--- NOTE | 2017-10-30 10:49 | PN ---
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 PMV on hold at this time, due to increased aspiration risk.
[2017-10-30] MEDS: ACETAMINOPHEN 650 MG/20.3 ML ORAL SOLUTION (CUPS) PEG PRN ×2 (13:05→20:29)
--- NOTE | 2017-10-30 13:06 | PN ---
GI Progress Note Subjective: Complains of headache Denies abdominal pain - Objective Vital Signs: Vital Signs Temperature 98.4 F 10/30/17 07:30 Pulse Rate 84 10/30/17 09:53 Respiratory Rate 14 10/30/17 12:01 Blood Pressure 149/73 10/30/17 07:30 O2 Sat by Pulse Oximetry (%) 100 10/30/17 09:09 Constitutional: Calm Eyes: No: Sclera Icterus Cardiovascular: Yes: Regular Rate and Rhythm Respiratory: Yes: Diminished (at bases) ...Auscultate: Yes: Normoactive Bowel Sounds ...Palpate: Yes: Soft. No: Tenderness ...Percussion: No: Tympanitic Neurological: Yes: Alert (responding to questions) Labs: CBC, BMP 10/29/17 10:42 10/29/17 10:42 INR, PTT INR 1.02 (0.82-1.09) 10/24/17 12:55 - ....Imaging Cat Scan: Report Reviewed ( Bowel: Gastrostomy tube in place. No evidence of inflammatory changes around the stomach with the site. There is a low riding cecum adjacent to the rectum. There is wall thickening of the rectosigmoid and postoperative sutures there. There is prominence of the presacral and precoccygeal soft tissue structures. Consistent with AP resection in the past and seen previously. Early clinically and with additional evaluation necessary. Other: There is a ventral hernia in the midline of the lower pelvis with nondistended small bowel. Small midline umbilical hernia with fat. Mesh repair of lower pelvic anterior wall hernia with soft tissue postoperative changes. Impression: Please note that the chest, abdomen and pelvis CTs are significantly limited due to patient condition and motion. Gastrostomy tube in place without evidence of obvious leakage. Postoperative changes in the pelvis. Other findings as above. Local correlation advised.) Problem List - Problems (1) Vomiting Assessment/Plan: No further vomiting Slowly resume tube feeds. Could add promotility agent such as low dose reglan 5mg IVPB q 8 hrs for 2-3 days to regimen however it interacts with seroquel. PMD to assess continued use of seoquel if necessary Patient continues to complain of headache. her nurse is aware. I asked that she duscuss this with PMD further. ? need for repeat imaging Aspiration precautions Code(s): R11.10 - VOMITING, UNSPECIFIED (2) Proctitis Assessment/Plan: ? proctitis noted on CT scan Check stool for c. diff Would have surgery comment on the presacral soft tissue prominence Code(s): K62.89 - OTHER SPECIFIED DISEASES OF ANUS AND RECTUM
--- NOTE | 2017-10-30 14:25 | PN ---
Progress Note (short form) - Note Progress Note: PULMONARY Febrile yesterday. Vented on volume assist control. Last Vital Signs Temp Pulse Resp BP Pulse Ox 98.4 F 84 14 149/73 100 10/30/17 07:30 10/30/17 09:53 10/30/17 12:01 10/30/17 07:30 10/30/17 09:09 Gen: vented, awake Heart: RRR Lung: decreased breath sounds at the bases Abd: soft, nontender Ext: + edema CBC, BMP 10/29/17 10:42 10/29/17 10:42 Active Medications Acetaminophen (Tylenol Oral Solution -) 650 mg PEG Q6H PRN PRN Reason: FEVER Last Admin: 10/30/17 13:05 Dose: 650 mg Albuterol/Ipratropium (Duoneb -) 1 amp NEB Q6H PRN PRN Reason: SHORTNESS OF BREATH Last Admin: 10/29/17 06:00 Dose: 1 amp Apixaban (Eliquis -) 5 mg PO BID [facility] Last Admin: 10/30/17 09:53 Dose: 5 mg Artificial Tears (Artificial Tears Ointment -) 1 applic OU BID [facility] Last Admin: 10/30/17 09:52 Dose: 1 applic Atorvastatin Calcium (Lipitor -) 20 mg PO HS [facility] Last Admin: 10/29/17 22:46 Dose: 20 mg Digoxin (Lanoxin -) 0.125 mg PEG Q2D@1000 [facility] Last Admin: 10/30/17 09:53 Dose: 0.125 mg Diltiazem HCl 60 mg/ Diltiazem (HCl 30 mg) 90 mg NGT Q6HPO [facility] Last Admin: 10/30/17 12:36 Dose: 90 mg IV Flush (Picc Line Flush) 8 ml IVPUSH PRN PRN PRN Reason: Protocol Last Admin: 10/10/17 22:13 Dose: 8 ml Sodium Chloride (Normal Saline -) 1,000 mls @ 75 mls/hr IV ASDIR [facility] Last Admin: 10/30/17 06:28 Dose: 75 mls/hr Insulin Aspart (Novolog Vial Sliding Scale -) 1 vial SQ Q6H [facility] PRN Reason: Protocol Last Admin: 10/30/17 13:06 Dose: 6 units Insulin Detemir (Levemir Vial) 20 units SQ AM [facility] Last Admin: 10/30/17 06:25 Dose: Not Given Insulin Detemir (Levemir Vial) 18 units SQ HS [facility] Last Admin: 10/29/17 22:56 Dose: Not Given Metoprolol Tartrate (Lopressor -) 50 mg NGT BID [facility] Last Admin: 10/30/17 09:53 Dose: 50 mg Mupirocin (Bactroban 2% Ointment -) 1 applic TP TID [facility] Last Admin: 10/30/17 06:25 Dose: 1 applic Nystatin (Mycostatin Ointment -) 1 applic TP BID [facility] Last Admin: 10/30/17 09:57 Dose: 1 applic Ondansetron HCl (Zofran Injection) 4 mg IVPUSH Q6H PRN PRN Reason: NAUSEA Last Admin: 10/29/17 06:02 Dose: 4 mg Quetiapine Fumarate (Seroquel -) 25 mg PO HS [facility] Last Admin: 10/29/17 22:47 Dose: 25 mg Ranitidine HCl (Zantac -) 150 mg PO BID [facility] Last Admin: 10/30/17 09:55 Dose: 150 mg Trazodone HCl (Desyrel -) 50 mg PO [facility] Last Admin: 10/29/17 22:46 Dose: 50 mg A/P Multiple Acute Embolic CVA Acute Hypoxic Respiratory Failure s/p Tracheostomy Aspiration Pneumonia Atrial Fibrillation with RVR Metastatic Colon Ca to Lung Acute on Chronic Renal Failure HTN DM Hypercholesterolemia - monitoring off antibiotics - continue anticoagulation - titrate rate control - monitor urine output, creatinine - enteral feeds - CPAP/PS as tolerated - DVT/GI prophylaxis
--- NOTE | 2017-10-30 18:17 | PN ---
Progress Note, Physician History of Present Illness: Pt seen and examined at bedside. She had vomiting yesterday. She complains of generalized discomfort. - Current Medication List Current Medications: Active Medications Acetaminophen (Tylenol Oral Solution -) 650 mg PEG Q6H PRN PRN Reason: FEVER Last Admin: 10/30/17 13:05 Dose: 650 mg Albuterol/Ipratropium (Duoneb -) 1 amp NEB Q6H PRN PRN Reason: SHORTNESS OF BREATH Last Admin: 10/29/17 06:00 Dose: 1 amp Apixaban (Eliquis -) 5 mg PO BID [facility] Last Admin: 10/30/17 09:53 Dose: 5 mg Artificial Tears (Artificial Tears Ointment -) 1 applic OU BID [facility] Last Admin: 10/30/17 09:52 Dose: 1 applic Atorvastatin Calcium (Lipitor -) 20 mg PO HS [facility] Last Admin: 10/29/17 22:46 Dose: 20 mg Digoxin (Lanoxin -) 0.125 mg PEG Q2D@1000 [facility] Last Admin: 10/30/17 09:53 Dose: 0.125 mg Diltiazem HCl 60 mg/ Diltiazem (HCl 30 mg) 90 mg NGT Q6HPO [facility] Last Admin: 10/30/17 18:11 Dose: 90 mg IV Flush (Picc Line Flush) 8 ml IVPUSH PRN PRN PRN Reason: Protocol Last Admin: 10/10/17 22:13 Dose: 8 ml Sodium Chloride (Normal Saline -) 1,000 mls @ 75 mls/hr IV ASDIR [facility] Last Admin: 10/30/17 18:11 Dose: 75 mls/hr Insulin Aspart (Novolog Vial Sliding Scale -) 1 vial SQ Q6H CORDELIA PRN Reason: Protocol Last Admin: 10/30/17 18:02 Dose: Not Given Insulin Detemir (Levemir Vial) 20 units SQ AM [facility] Last Admin: 10/30/17 06:25 Dose: Not Given Insulin Detemir (Levemir Vial) 18 units SQ HS [facility] Last Admin: 10/29/17 22:56 Dose: Not Given Metoprolol Tartrate (Lopressor -) 50 mg NGT BID [facility] Last Admin: 10/30/17 09:53 Dose: 50 mg Mupirocin (Bactroban 2% Ointment -) 1 applic TP TID [facility] Last Admin: 10/30/17 14:00 Dose: 1 applic Nystatin (Mycostatin Ointment -) 1 applic TP BID [facility] Last Admin: 10/30/17 09:57 Dose: 1 applic Ondansetron HCl (Zofran Injection) 4 mg IVPUSH Q6H PRN PRN Reason: NAUSEA Last Admin: 10/29/17 06:02 Dose: 4 mg Quetiapine Fumarate (Seroquel -) 25 mg PO HS [facility] Last Admin: 10/29/17 22:47 Dose: 25 mg Ranitidine HCl (Zantac -) 150 mg PO BID [facility] Last Admin: 10/30/17 09:55 Dose: 150 mg Trazodone HCl (Desyrel -) 50 mg PO HS [facility] Last Admin: 10/29/17 22:46 Dose: 50 mg - Objective Vital Signs: Vital Signs Temperature 98.4 F 10/30/17 14:30 Pulse Rate 85 10/30/17 14:30 Respiratory Rate 24 10/30/17 14:55 Blood Pressure 145/81 10/30/17 14:30 O2 Sat by Pulse Oximetry (%) 100 10/30/17 09:09 Constitutional: Yes: Anxious Eyes: Yes: Conjunctiva Clear HENT: Yes: Atraumatic Neck: Yes: Other (trache) Cardiovascular: Yes: S1, S2 Gastrointestinal: Yes: Soft, Other (peg) Genitourinary: Yes: Incontinence Musculoskeletal: Yes: Muscle Weakness Edema: No Neurological: Yes: Oriented Labs: CBC, BMP 10/29/17 10:42 10/29/17 10:42 INR, PTT INR 1.02 (0.82-1.09) 10/24/17 12:55 Problem List - Problems (1) Brain metastasis Code(s): C79.31 - SECONDARY MALIGNANT NEOPLASM OF BRAIN (2) Headache Code(s): R51 - HEADACHE Qualifiers: Headache chronicity pattern: unspecified pattern Intractability: intractable (3) Metastatic colorectal cancer Code(s): C78.5 - SECONDARY MALIGNANT NEOPLASM OF LARGE INTESTINE AND RECTUM (4) SUSAN (acute kidney injury) Code(s): N17.9 - ACUTE KIDNEY FAILURE, UNSPECIFIED (5) Atrial fibrillation Code(s): I48.91 - UNSPECIFIED ATRIAL FIBRILLATION (6) Cancer, colon Code(s): C18.9 - MALIGNANT NEOPLASM OF COLON, UNSPECIFIED Qualifiers: Colon location: unspecified part of colon Qualified Code(s): C18.9 - Malignant neoplasm of colon, unspecified (7) Lung mass Code(s): R91.8 - OTHER NONSPECIFIC ABNORMAL FINDING OF LUNG FIELD Assessment/Plan Current Medications Generic Name Dose Route Start Last Admin Trade Name Freq PRN Reason Stop Dose Admin Acetaminophen 650 mg 10/06/17 20:09 10/30/17 13:05 Tylenol Oral Solution - PEG 650 mg Q6H PRN Administration FEVER Albuterol/Ipratropium 1 amp 10/18/17 20:50 10/29/17 06:00 Duoneb - NEB 1 amp Q6H PRN Administration SHORTNESS OF BREATH Apixaban 5 mg 10/27/17 22:00 10/30/17 09:53 Eliquis - PO 5 mg BID CORDELIA Administration Artificial Tears 1 applic 10/06/17 22:00 10/30/17 09:52 Artificial Tears Ointment - OU 1 applic BID CORDELIA Administration Atorvastatin Calcium 20 mg 10/06/17 22:00 10/29/17 22:46 Lipitor - PO 20 mg HS CORDELIA Administration Digoxin 0.125 mg 10/08/17 10:00 10/30/17 09:53 Lanoxin - PEG 0.125 mg Q2D@1000 CORDELIA Administration Diltiazem HCl 60 mg/ Diltiazem 90 mg 10/07/17 00:00 10/30/17 18:11 HCl 30 mg NGT 90 mg Q6HPO CORDELIA Administration IV Flush 8 ml 10/09/17 11:32 10/10/17 22:13 Picc Line Flush IVPUSH 8 ml PRN PRN Administration Protocol Sodium Chloride 1,000 mls @ 75 mls/hr 10/28/17 17:00 10/30/17 18:11 Normal Saline - IV 75 mls/hr ASDIR CORDELIA Administration Insulin Aspart 1 vial 10/07/17 00:00 10/30/17 18:02 Novolog Vial Sliding Scale - SQ Not Given Q6H CORDELIA Protocol Insulin Detemir 20 units 10/20/17 07:00 10/30/17 06:25 Levemir Vial SQ Not Given AM [facility] Insulin Detemir 18 units 10/24/17 10:12 10/29/17 22:56 Levemir Vial SQ Not Given HS CORDELIA Metoprolol Tartrate 50 mg 10/07/17 10:00 10/30/17 09:53 Lopressor - NGT 50 mg BID CORDELIA Administration Mupirocin 1 applic 10/09/17 14:00 10/30/17 14:00 Bactroban 2% Ointment - TP 1 applic TID CORDELIA Administration Nystatin 1 applic 10/06/17 22:00 10/30/17 09:57 Mycostatin Ointment - TP 1 applic BID CORDELIA Administration Ondansetron HCl 4 mg 10/06/17 20:09 10/29/17 06:02 Zofran Injection IVPUSH 4 mg Q6H PRN Administration NAUSEA Quetiapine Fumarate 25 mg 10/06/17 22:00 10/29/17 22:47 Seroquel - PO 25 mg HS CORDELIA Administration Ranitidine HCl 150 mg 10/06/17 22:00 10/30/17 09:55 Zantac - PO 150 mg BID CORDELIA Administration Trazodone HCl 50 mg 10/06/17 22:00 10/29/17 22:46 Desyrel - PO 50 mg HS CORDELIA Administration Impression 1. CKD 2. SUSAN 3. DM 4. htn 5. chol 6. chemo port malfunction 7. a-fib 8. lung mass 9. proteinuria 10. adenocarcinoma 11. CVA 12. acute resp failure 13. hyperkalemia 14. hypernatremia 15. pleural effusions Plan - renal function is stable - cont to check bmp periodically - GI input appreciated, feeds to be started slowly - pulmonary rehab - vent support - will follow PRN Dr Llanos
[2017-10-30] MEDS: ONDANSETRON 4 MG/2 ML VIAL IVPUSH PRN (20:07)
[2017-10-30] MEDS: ATORVASTATIN CA 20 MG TABLET (FP) PO SCH (21:33)
[2017-10-30] MEDS: traZODone HCL 50 MG TABLET (FP) PO SCH (21:34)
[2017-10-30] MEDS: QUEtiapine FUMARATE 25 MG TABLET (FP) PO SCH (21:35)
[2017-10-31] MEDS: INSULIN SLIDING SCALE (NOVOLOG) 1 VIAL SQ SCH ×4 (00:17→17:31)
[2017-10-31] MEDS ORDERED: dilTIAZem HCL 60 MG TABLET (FP) ONE ×4 (04:41→23:33)
[2017-10-31] MEDS ORDERED: dilTIAZem HCL 30 MG TABLET (FP) ONE ×4 (04:41→23:33)
[2017-10-31] MEDS: DILTIAZEM 60 MG, DILTIAZEM 30 MG NGT SCH ×3 (05:09→17:20)
[2017-10-31] MEDS: MUPIROCIN 2% TOPICAL OINTMENT 22 GM TUBE TP SCH ×3 (05:19→22:33)
[2017-10-31] MEDS: INSULIN DETEMIR 100 UNITS/ML MDV SQ SCH (06:21)
--- NOTE | 2017-10-31 06:26 | PN ---
Progress Note, Physician - Current Medication List Current Medications: Active Medications Acetaminophen (Tylenol Oral Solution -) 650 mg PEG Q6H PRN PRN Reason: FEVER Last Admin: 10/30/17 20:29 Dose: 650 mg Albuterol/Ipratropium (Duoneb -) 1 amp NEB Q6H PRN PRN Reason: SHORTNESS OF BREATH Last Admin: 10/29/17 06:00 Dose: 1 amp Apixaban (Eliquis -) 5 mg PO BID [facility] Last Admin: 10/30/17 21:34 Dose: 5 mg Artificial Tears (Artificial Tears Ointment -) 1 applic OU BID [facility] Last Admin: 10/30/17 21:35 Dose: 1 applic Atorvastatin Calcium (Lipitor -) 20 mg PO HS [facility] Last Admin: 10/30/17 21:33 Dose: 20 mg Digoxin (Lanoxin -) 0.125 mg PEG Q2D@1000 [facility] Last Admin: 10/30/17 09:53 Dose: 0.125 mg Diltiazem HCl 60 mg/ Diltiazem (HCl 30 mg) 90 mg NGT Q6HPO [facility] Last Admin: 10/31/17 05:09 Dose: 90 mg IV Flush (Picc Line Flush) 8 ml IVPUSH PRN PRN PRN Reason: Protocol Last Admin: 10/10/17 22:13 Dose: 8 ml Sodium Chloride (Normal Saline -) 1,000 mls @ 75 mls/hr IV ASDIR [facility] Last Admin: 10/30/17 18:11 Dose: 75 mls/hr Insulin Aspart (Novolog Vial Sliding Scale -) 1 vial SQ Q6H CORDELIA PRN Reason: Protocol Last Admin: 10/31/17 05:18 Dose: 4 units Insulin Detemir (Levemir Vial) 20 units SQ AM [facility] Last Admin: 10/31/17 06:21 Dose: Not Given Insulin Detemir (Levemir Vial) 18 units SQ HS [facility] Last Admin: 10/30/17 22:07 Dose: Not Given Metoprolol Tartrate (Lopressor -) 50 mg NGT BID [facility] Last Admin: 10/30/17 21:34 Dose: 50 mg Mupirocin (Bactroban 2% Ointment -) 1 applic TP TID [facility] Last Admin: 10/31/17 05:19 Dose: 1 applic Nystatin (Mycostatin Ointment -) 1 applic TP BID [facility] Last Admin: 10/30/17 21:35 Dose: 1 applic Ondansetron HCl (Zofran Injection) 4 mg IVPUSH Q6H PRN PRN Reason: NAUSEA Last Admin: 10/30/17 20:07 Dose: 4 mg Quetiapine Fumarate (Seroquel -) 25 mg PO [facility] Last Admin: 10/30/17 21:35 Dose: 25 mg Ranitidine HCl (Zantac -) 150 mg PO BID [facility] Last Admin: 10/30/17 21:33 Dose: 150 mg Trazodone HCl (Desyrel -) 50 mg PO [facility] Last Admin: 10/30/17 21:34 Dose: 50 mg - Objective Vital Signs: Vital Signs Temperature 98 F 10/30/17 20:00 Pulse Rate 73 10/31/17 00:00 Respiratory Rate 20 10/31/17 06:22 Blood Pressure 145/71 10/30/17 20:00 O2 Sat by Pulse Oximetry (%) 100 10/30/17 21:00 Labs: CBC, BMP 10/29/17 10:42 10/29/17 10:42 INR, PTT INR 1.02 (0.82-1.09) 10/24/17 12:55 Problem List - Problems (1) Brain metastasis Code(s): C79.31 - SECONDARY MALIGNANT NEOPLASM OF BRAIN (2) Headache Code(s): R51 - HEADACHE Qualifiers: Headache chronicity pattern: unspecified pattern Intractability: intractable (3) Intractable vomiting with nausea Code(s): R11.2 - NAUSEA WITH VOMITING, UNSPECIFIED Qualifiers: Vomiting type: unspecified Qualified Code(s): R11.2 - Nausea with vomiting , unspecified (4) SUSAN (acute kidney injury) Code(s): N17.9 - ACUTE KIDNEY FAILURE, UNSPECIFIED (5) Cancer, colon Code(s): C18.9 - MALIGNANT NEOPLASM OF COLON, UNSPECIFIED Qualifiers: Colon location: unspecified part of colon Qualified Code(s): C18.9 - Malignant neoplasm of colon, unspecified (6) Lung mass Code(s): R91.8 - OTHER NONSPECIFIC ABNORMAL FINDING OF LUNG FIELD (7) CVA (cerebral vascular accident) Code(s): I63.9 - CEREBRAL INFARCTION, UNSPECIFIED Qualifiers: Laterality of affected vessel: unspecified (8) Pleural effusion Code(s): J90 - PLEURAL EFFUSION, NOT ELSEWHERE CLASSIFIED (9) Fever Code(s): R50.9 - FEVER, UNSPECIFIED Qualifiers: Fever type: unspecified Qualified Code(s): R50.9 - Fever, unspecified (10) Ventilator dependent Code(s): Z99.11 - DEPENDENCE ON RESPIRATOR [VENTILATOR] STATUS (11) Weakness due to acute cerebrovascular accident (CVA) Code(s): I63.9 - CEREBRAL INFARCTION, UNSPECIFIED; R53.1 - WEAKNESS (12) Aspiration into airway Code(s): T17.908A - UNSP FB IN RESP TRACT, PART UNSP CAUSING OTH INJURY, INIT (13) Ileus Code(s): K56.7 - ILEUS, UNSPECIFIED (14) Vomiting Code(s): R11.10 - VOMITING, UNSPECIFIED
--- NOTE | 2017-10-31 07:10 | CONSULT ---
- Consultation REQUESTING PROVIDER: CONSULT REQUEST: We have been asked to surgically evaluate this patient for ? inability to tolerate tube feeds ? PCP:Nathalia Arciniega HISTORY OF PRESENT ILLNESS: Hx. obtained from her daughter and chart reviewed PMHx: reviewed PSHx: reviewed Home Medications Medication Instructions Recorded Atorvastatin Ca [Lipitor] 20 mg PO HS #0 tablet 01/14/14 Insulin Pump Controller [Snap 0 units SQ ASDIR 04/14/14 Insulin Pump Controller] Gabapentin 300 mg PO BID #60 capsule 08/23/14 Apixaban [Eliquis -] 5 mg PO BID #60 tablet 06/24/17 Diltiazem Cd [Cardizem Cd -] 120 mg PO DAILY #30 cap.cd.24h 06/24/17 Ramipril [Altace] 5 mg PO DAILY #30 tab 06/24/17 Metoprolol Succinate 50 mg PO DAILY 08/14/17 Oxycodone HCl/Acetaminophen 1 - 2 tab PO Q4H PRN #20 tablet 08/18/17 [Percocet 5/325 -] MDD 6 Allergies Allergy/AdvReac Type Severity Reaction Status Date / Time No Known Drug Allergies Allergy Verified 09/09/17 23:57 Medical Tape Allergy Uncoded 09/09/17 23:56 PHYSICAL EXAM: GENERAL: Awake, responsive, and not fully oriented, on vent HEAD: Normal with no signs of trauma. ABDOMEN: Soft, nontender, not distended, normoactive bowel sounds, no guarding, no rebound, no masses. No organomegaly. GT in place; # healed surgical scars PSYCH: Cooperative;mresponds to commands in Greek and Ukrainian. Appropriate mood and affect. SKIN: Warm, dry, normal turgor, no rashes or lesions noted. Vital Signs Temperature 97.9 F 10/31/17 04:00 Pulse Rate 70 10/31/17 04:00 Respiratory Rate 20 10/31/17 06:22 Blood Pressure 153/84 10/31/17 04:00 O2 Sat by Pulse Oximetry (%) 100 10/30/17 21:00 Lab Results WBC 10.5 K/mm3 (4.0-10.0) H 10/29/17 10:42 RBC 3.69 M/mm3 (3.60-5.2) 10/29/17 10:42 Hgb 10.5 GM/dL (10.7-15.3) L 10/29/17 10:42 Hct 32.1 % (32.4-45.2) L 10/29/17 10:42 MCV 86.9 fl (80-96) 10/29/17 10:42 MCHC 32.6 g/dl (32.0-36.0) 10/29/17 10:42 RDW 17.2 % (11.6-15.6) H 10/29/17 10:42 Plt Count 371 K/MM3 (134-434) 10/29/17 10:42 Sodium 139 mmol/L (136-145) 10/29/17 10:42 Potassium 4.3 mmol/L (3.5-5.1) 10/29/17 10:42 Chloride 105 mmol/L (98-107) 10/29/17 10:42 Carbon Dioxide 23 mmol/L (21-32) 10/29/17 10:42 Anion Gap 11 (8-16) 10/29/17 10:42 BUN 31 mg/dL (7-18) H 10/29/17 10:42 Creatinine 1.5 mg/dL (0.55-1.02) H 10/29/17 10:42 Random Glucose 290 mg/dL (74-106) H 10/29/17 10:42 Calcium 8.5 mg/dL (8.5-10.1) 10/29/17 10:42 Blood Type O POSITIVE 10/24/17 15:30 Antibody Screen Negative 10/24/17 15:30 INR 1.02 (0.82-1.09) 10/24/17 12:55 CT a/p reviewed IMP:? inability to tolerate feeds ? PLAN: Do not believe CT scan abnormalities are the cause of the problems; attempts to re feed should be tried w/HOB up 30 degrees at all times; after d/w her daughter she seems to think it is the type of TF she is receiving; this may be possible. Adolfo Monique MD FACS Visit type - Case Type Case Type: ED Admission - Emergency Emergency Visit: Yes ED Registration Date: 09/10/17 Care time: The patient presented to the Emergency Department on the above date and was hospitalized for further evaluation of their emergent condition. - New patient This patient is new to me today: Yes Date on this admission: 10/31/17 - Critical Care Critical Care patient: No
--- NOTE | 2017-10-31 09:07 | PN ---
Progress Note, Physician Chief Complaint: asleep comfortable surgery has no advice for feedings to prevent vomiting - Current Medication List Current Medications: Active Medications Acetaminophen (Tylenol Oral Solution -) 650 mg PEG Q6H PRN PRN Reason: FEVER Last Admin: 10/30/17 20:29 Dose: 650 mg Albuterol/Ipratropium (Duoneb -) 1 amp NEB Q6H PRN PRN Reason: SHORTNESS OF BREATH Last Admin: 10/29/17 06:00 Dose: 1 amp Apixaban (Eliquis -) 5 mg PO BID [facility] Last Admin: 10/30/17 21:34 Dose: 5 mg Artificial Tears (Artificial Tears Ointment -) 1 applic OU BID [facility] Last Admin: 10/30/17 21:35 Dose: 1 applic Atorvastatin Calcium (Lipitor -) 20 mg PO HS [facility] Last Admin: 10/30/17 21:33 Dose: 20 mg Digoxin (Lanoxin -) 0.125 mg PEG Q2D@1000 [facility] Last Admin: 10/30/17 09:53 Dose: 0.125 mg Diltiazem HCl 60 mg/ Diltiazem (HCl 30 mg) 90 mg NGT Q6HPO [facility] Last Admin: 10/31/17 05:09 Dose: 90 mg IV Flush (Picc Line Flush) 8 ml IVPUSH PRN PRN PRN Reason: Protocol Last Admin: 10/10/17 22:13 Dose: 8 ml Sodium Chloride (Normal Saline -) 1,000 mls @ 75 mls/hr IV ASDIR [facility] Last Admin: 10/30/17 18:11 Dose: 75 mls/hr Insulin Aspart (Novolog Vial Sliding Scale -) 1 vial SQ Q6H [facility] PRN Reason: Protocol Last Admin: 10/31/17 05:18 Dose: 4 units Insulin Detemir (Levemir Vial) 20 units SQ AM [facility] Last Admin: 10/31/17 06:21 Dose: Not Given Insulin Detemir (Levemir Vial) 18 units SQ HS [facility] Last Admin: 10/30/17 22:07 Dose: Not Given Metoprolol Tartrate (Lopressor -) 50 mg NGT BID [facility] Last Admin: 10/30/17 21:34 Dose: 50 mg Mupirocin (Bactroban 2% Ointment -) 1 applic TP TID [facility] Last Admin: 10/31/17 05:19 Dose: 1 applic Nystatin (Mycostatin Ointment -) 1 applic TP BID [facility] Last Admin: 10/30/17 21:35 Dose: 1 applic Ondansetron HCl (Zofran Injection) 4 mg IVPUSH Q6H PRN PRN Reason: NAUSEA Last Admin: 10/30/17 20:07 Dose: 4 mg Quetiapine Fumarate (Seroquel -) 25 mg PO HS [facility] Last Admin: 10/30/17 21:35 Dose: 25 mg Ranitidine HCl (Zantac -) 150 mg PO BID [facility] Last Admin: 10/30/17 21:33 Dose: 150 mg Trazodone HCl (Desyrel -) 50 mg PO [facility] Last Admin: 10/30/17 21:34 Dose: 50 mg - Objective Vital Signs: Vital Signs Temperature 97.9 F 10/31/17 04:00 Pulse Rate 70 10/31/17 04:00 Respiratory Rate 23 10/31/17 07:59 Blood Pressure 153/84 10/31/17 04:00 O2 Sat by Pulse Oximetry (%) 100 10/30/17 21:00 Constitutional: Yes: Mild Distress Eyes: Yes: WNL HENT: Yes: WNL Neck: Yes: WNL Cardiovascular: Yes: Pulse Irregular Respiratory: Yes: Mechanically Ventilated (via trach) Gastrointestinal: Yes: Distention Genitourinary: Yes: Incontinence Musculoskeletal: Yes: Muscle Weakness Extremities: Yes: Other Edema: Yes Peripheral Pulses WNL: Yes Integumentary: Yes: Venous Stasis Changes Wound/Incision: Yes: Dressing Dry and Intact Neurological: Yes: Facial Droop, Unsteady Gait, Weakness ...Motor Strength: LUE, LLE, RUE, RLE Psychiatric: Yes: Other Labs: CBC, BMP 10/29/17 10:42 10/29/17 10:42 INR, PTT INR 1.02 (0.82-1.09) 10/24/17 12:55 Problem List - Problems (1) Brain metastasis Code(s): C79.31 - SECONDARY MALIGNANT NEOPLASM OF BRAIN (2) Headache Code(s): R51 - HEADACHE Qualifiers: Headache chronicity pattern: unspecified pattern Intractability: intractable (3) Intractable vomiting with nausea Code(s): R11.2 - NAUSEA WITH VOMITING, UNSPECIFIED Qualifiers: Vomiting type: unspecified Qualified Code(s): R11.2 - Nausea with vomiting , unspecified (4) SUSAN (acute kidney injury) Code(s): N17.9 - ACUTE KIDNEY FAILURE, UNSPECIFIED (5) Cancer, colon Code(s): C18.9 - MALIGNANT NEOPLASM OF COLON, UNSPECIFIED Qualifiers: Colon location: unspecified part of colon Qualified Code(s): C18.9 - Malignant neoplasm of colon, unspecified (6) Lung mass Code(s): R91.8 - OTHER NONSPECIFIC ABNORMAL FINDING OF LUNG FIELD (7) CVA (cerebral vascular accident) Code(s): I63.9 - CEREBRAL INFARCTION, UNSPECIFIED Qualifiers: Laterality of affected vessel: unspecified (8) Pleural effusion Code(s): J90 - PLEURAL EFFUSION, NOT ELSEWHERE CLASSIFIED (9) Fever Code(s): R50.9 - FEVER, UNSPECIFIED Qualifiers: Fever type: unspecified Qualified Code(s): R50.9 - Fever, unspecified (10) Ventilator dependent Code(s): Z99.11 - DEPENDENCE ON RESPIRATOR [VENTILATOR] STATUS (11) Weakness due to acute cerebrovascular accident (CVA) Code(s): I63.9 - CEREBRAL INFARCTION, UNSPECIFIED; R53.1 - WEAKNESS (12) Aspiration into airway Code(s): T17.908A - UNSP FB IN RESP TRACT, PART UNSP CAUSING OTH INJURY, INIT (13) Ileus Code(s): K56.7 - ILEUS, UNSPECIFIED (14) Vomiting Code(s): R11.10 - VOMITING, UNSPECIFIED Assessment/Plan DIETARY FOLLOW UP TO CHANGE FEEDS AT A LOWER DOSE WITH A LESS BLOATING EFFECT. LACTOSE FREE? HIGHER PROTEIN? 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
[2017-10-31] MEDS ORDERED: PT OWN MED DRAWER 7, Y5N ONE ×4 (10:06→21:08)
[2017-10-31] MEDS: APIXABAN 5 MG TABLET PO SCH ×2 (10:11→22:33)
[2017-10-31] MEDS: MINERAL OIL/PETROLATUM,WHITE 3.5 GM TUBE OU SCH ×2 (10:11→22:38)
[2017-10-31] MEDS: METOPROLOL TARTRATE 50 MG TABLET (FP) NGT SCH ×2 (10:11→22:36)
[2017-10-31] MEDS: RANITIDINE HCL 150 MG TABLET (FP) PO SCH ×2 (10:13→22:37)
[2017-10-31] MEDS: NYSTATIN 100000 UNIT/GM TOPICAL OINTMENT 15 GM TUBE TP SCH ×2 (10:13→22:36)
[2017-10-31] MEDS: ACETAMINOPHEN 650 MG/20.3 ML ORAL SOLUTION (CUPS) PEG PRN ×2 (10:15→16:50)
[2017-10-31] MEDS ORDERED: INSULIN (NOVOLOG) ASPART 100 UNITS/ML 10ML VIAL ONE ×2 (11:57→19:05)
[2017-10-31] MEDS: SODIUM CHLORIDE 1,000 ML IV SCH (18:13)
[2017-10-31] MEDS: ALBUTEROL SO4 2.5/IPRATROPIUM 0.5 INH SOL 3 ML VIAL.NEB. NEB PRN (20:45)
[2017-10-31] MEDS: ATORVASTATIN CA 20 MG TABLET (FP) PO SCH (22:34)
[2017-10-31] MEDS: traZODone HCL 50 MG TABLET (FP) PO SCH (22:35)
[2017-10-31] MEDS: QUEtiapine FUMARATE 25 MG TABLET (FP) PO SCH (22:36)
[2017-11-01] MEDS: INSULIN SLIDING SCALE (NOVOLOG) 1 VIAL SQ SCH ×4 (00:09→17:55)
[2017-11-01] MEDS: INSULIN DETEMIR 100 UNITS/ML MDV SQ SCH ×3 (00:09→23:56)
[2017-11-01] MEDS: DILTIAZEM 60 MG, DILTIAZEM 30 MG NGT SCH ×4 (00:10→18:00)
[2017-11-01] MEDS ORDERED: dilTIAZem HCL 60 MG TABLET (FP) ONE ×4 (06:00→22:31)
[2017-11-01] MEDS ORDERED: dilTIAZem HCL 30 MG TABLET (FP) ONE ×4 (06:00→22:31)
[2017-11-01] MEDS: MUPIROCIN 2% TOPICAL OINTMENT 22 GM TUBE TP SCH ×3 (06:17→22:34)
[2017-11-01 07:10] LABS: HEMATOCRIT 29.4 % (32.4-45.2); HEMOGLOBIN 9.8 GM/dL (10.7-15.3); MCH 28.9 pg (25.7-33.7); MCHC 33.4 g/dl (32.0-36.0); MEAN CELL VOLUME 86.7 fl (80-96); MEAN PLT VOLUME 6.5 fl (7.5-11.1); PLATELET COUNT 344 K/MM3 (134-434); RDW 16.9 % (11.6-15.6); WHITE BLOOD COUNT 8.1 K/mm3 (4.0-10.0)
[2017-11-01 07:21] LABS: ANION GAP 11 (8-16); BLOOD UREA NITROGEN 12 mg/dL (7-18); CALCIUM 8.5 mg/dL (8.5-10.1); CHLORIDE 114 mmol/L (98-107); CO2 19 mmol/L (21-32); CREATININE 0.8 mg/dL (0.55-1.02); GLUCOSE,RANDOM 136 mg/dL (74-106); MAGNESIUM 1.7 mg/dL (1.8-2.4); PHOSPHOROUS 3.3 mg/dL (2.5-4.9); POTASSIUM 3.2 mmol/L (3.5-5.1); SODIUM 144 mmol/L (136-145)
[2017-11-01] MEDS: SODIUM CHLORIDE 1,000 ML IV SCH ×2 (10:00→17:55)
[2017-11-01] MEDS: DIGOXIN 0.125 MG TABLET (FP) PEG SCH (10:57)
[2017-11-01] MEDS: METOPROLOL TARTRATE 50 MG TABLET (FP) NGT SCH ×2 (10:57→22:29)
[2017-11-01] MEDS: RANITIDINE HCL 150 MG TABLET (FP) PO SCH ×2 (10:58→22:36)
[2017-11-01] MEDS: MINERAL OIL/PETROLATUM,WHITE 3.5 GM TUBE OU SCH ×2 (10:59→22:34)
[2017-11-01] MEDS: APIXABAN 5 MG TABLET PO SCH ×2 (10:59→22:34)
[2017-11-01] MEDS: NYSTATIN 100000 UNIT/GM TOPICAL OINTMENT 15 GM TUBE TP SCH ×2 (11:00→22:29)
[2017-11-01] MEDS: ONDANSETRON 4 MG/2 ML VIAL IVPUSH PRN (13:18)
--- NOTE | 2017-11-01 16:44 | PN ---
Physical Exam: SUBJECTIVE: Patient seen and examined. She is comfortable lying in bed. She reports having daily headaches and nausea and vomiting but she wants to drink water. OBJECTIVE: Vital Signs Period Temp Pulse Resp BP Sys/Mcdaniel Pulse Ox Last 24 Hr 96.2 F-98.9 F 68-92 16-20 124-191/66-96 97-100 GENERAL: The patient is awake, alert, and fully oriented, in no acute distress. NECK: Tracheostomy site clean. LUNGS: Breath sounds diminished, equal, clear to auscultation bilaterally, no wheezes, no crackles. HEART: Regular rate and rhythm, S1, S2 without murmur, rub or gallop. ABDOMEN: Obese, soft, nontender, nondistended, normoactive bowel sounds, no guarding, no rebound, no hepatosplenomegaly, no masses. PEG in place. EXTREMITIES: 2+ pulses, warm, well-perfused, no edema. Laboratory Results - last 24 hr 10/31/17 10/31/17 11/01/17 17:28 23:27 06:40 WBC 8.1 RBC 3.40 L Hgb 9.8 L Hct 29.4 L MCV 86.7 MCH 28.9 MCHC 33.4 RDW 16.9 H Plt Count 344 MPV 6.5 L Sodium Potassium Chloride Carbon Dioxide Anion Gap BUN Creatinine POC Glucometer 213 375 Random Glucose Calcium Phosphorus Magnesium 11/01/17 11/01/17 11/01/17 06:40 06:55 11:01 WBC RBC Hgb Hct MCV MCH MCHC RDW Plt Count MPV Sodium 144 Potassium 3.2 L Chloride 114 H Carbon Dioxide 19 L Anion Gap 11 BUN 12 Creatinine 0.8 POC Glucometer 122 66 Random Glucose 136 H Calcium 8.5 Phosphorus 3.3 Magnesium 1.7 L Active Medications Generic Name Dose Route Start Last Admin Trade Name Freq PRN Reason Stop Dose Admin Acetaminophen 650 mg 10/06/17 20:09 10/31/17 16:50 Tylenol Oral Solution - PEG 650 mg Q6H PRN Administration FEVER Apixaban 5 mg 10/27/17 22:00 11/01/17 10:59 Eliquis - PO 5 mg BID CORDELIA Administration Artificial Tears 1 applic 10/06/17 22:00 11/01/17 10:59 Artificial Tears Ointment - OU 1 applic BID CORDELIA Administration Atorvastatin Calcium 20 mg 10/06/17 22:00 10/31/17 22:34 Lipitor - PO 20 mg HS CORDELIA Administration Digoxin 0.125 mg 10/08/17 10:00 11/01/17 10:57 Lanoxin - PEG 0.125 mg Q2D@1000 CORDELIA Administration Diltiazem HCl 60 mg/ Diltiazem 90 mg 10/07/17 00:00 11/01/17 12:51 HCl 30 mg NGT 90 mg Q6HPO CORDELIA Administration IV Flush 8 ml 10/09/17 11:32 10/10/17 22:13 Picc Line Flush IVPUSH 8 ml PRN PRN Administration Protocol Sodium Chloride 1,000 mls @ 75 mls/hr 10/28/17 17:00 11/01/17 10:00 Normal Saline - IV 75 mls/hr ASDIR [facility] Administration Insulin Aspart 1 vial 10/07/17 00:00 11/01/17 12:51 Novolog Vial Sliding Scale - SQ Not Given Q6H [facility] Protocol Insulin Detemir 20 units 10/20/17 07:00 11/01/17 07:10 Levemir Vial SQ Not Given AM [facility] Insulin Detemir 18 units 10/24/17 10:12 11/01/17 00:09 Levemir Vial SQ 18 units HS [facility] Administration Metoprolol Tartrate 50 mg 10/07/17 10:00 11/01/17 10:57 Lopressor - NGT 50 mg BID CORDELIA Administration Mupirocin 1 applic 10/09/17 14:00 11/01/17 13:22 Bactroban 2% Ointment - TP 1 applic TID CORDELIA Administration Nystatin 1 applic 10/06/17 22:00 11/01/17 11:00 Mycostatin Ointment - TP 1 applic BID CORDELIA Administration Ondansetron HCl 4 mg 10/06/17 20:09 11/01/17 13:18 Zofran Injection IVPUSH 4 mg Q6H PRN Administration NAUSEA Quetiapine Fumarate 25 mg 10/06/17 22:00 10/31/17 22:36 Seroquel - PO 25 mg HS CORDELIA Administration Ranitidine HCl 150 mg 10/06/17 22:00 11/01/17 10:58 Zantac - PO 150 mg BID CORDELIA Administration Trazodone HCl 50 mg 10/06/17 22:00 10/31/17 22:35 Desyrel - PO 50 mg HS CORDELIA Administration ASSESSMENT/PLAN: 1. Acute hypoxic respiratory failure - s/p tracheostomy 10/01 - Continue oxygen via trach collar, vent support as needed 2. Aspiration pneumonia - Completed antibiotics - Continues to be at risk of aspiration - Continue NPO 3. 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 Headaches with nausea and vomiting - Neurology follow-up - ? neurologic cause, need for repeat brain imaging 5. Hypomagnesemia - Supplement magnesium 6. Hypokalemia - Replete potassium 7. Paroxysmal atrial fibrillation with RVR - Remains in sinus rhythm - Continue Lopressor, Digoxin, Cardizem, Eliquis 8. Colon cancer with metastatic lung disease 9. Acute kidney injury - Improved 10. HTN - Continue Lopressor, Cardizem 11. Hyperlipidemia - Continue Lipitor 12. Type 2 DM - Continue Levemir, Novolog sliding scale 13. Depression and anxiety - Continue Seroquel, Trazodone 14. Nutrition - s/p PEG 10/02 - Continue Vital 1.2 @ 20 cc/hr Visit type - Emergency Visit Emergency Visit: Yes ED Registration Date: 09/10/17 Care time: The patient presented to the Emergency Department on the above date and was hospitalized for further evaluation of their emergent condition. - New Patient This patient is new to me today: Yes Date on this admission: 11/01/17 - Critical Care Critical Care patient: No - Discharge Referral Referred to [facility] Med P.C.: No
[2017-11-01] MEDS: ACETAMINOPHEN 650 MG/20.3 ML ORAL SOLUTION (CUPS) PEG PRN (16:46)
[2017-11-01] MEDS ORDERED: MAGNESIUM SULF 50% (8.12 MEQ/2 ML-1 GM VIAL) IVPB ONE (17:49)
[2017-11-01] MEDS: ATORVASTATIN CA 20 MG TABLET (FP) PO SCH (22:29)
[2017-11-01] MEDS: traZODone HCL 50 MG TABLET (FP) PO SCH (22:30)
[2017-11-01] MEDS ORDERED: PT OWN MED DRAWER 7, Y5N ONE (22:33)
[2017-11-01] MEDS: QUEtiapine FUMARATE 25 MG TABLET (FP) PO SCH (22:36)
[2017-11-02] MEDS: INSULIN SLIDING SCALE (NOVOLOG) 1 VIAL SQ SCH ×4 (00:30→17:29)
[2017-11-02] MEDS: DILTIAZEM 60 MG, DILTIAZEM 30 MG NGT SCH ×4 (02:33→17:15)
[2017-11-02] MEDS ORDERED: dilTIAZem HCL 30 MG TABLET (FP) ONE ×3 (05:25→16:52)
[2017-11-02] MEDS ORDERED: dilTIAZem HCL 60 MG TABLET (FP) ONE ×3 (05:26→16:52)
[2017-11-02] MEDS: MUPIROCIN 2% TOPICAL OINTMENT 22 GM TUBE TP SCH ×3 (05:40→22:04)
[2017-11-02] MEDS: INSULIN DETEMIR 100 UNITS/ML MDV SQ SCH ×2 (07:03→21:57)
[2017-11-02 07:30] LABS: HEMATOCRIT 29.7 % (32.4-45.2); HEMOGLOBIN 9.7 GM/dL (10.7-15.3); MCH 28.5 pg (25.7-33.7); MCHC 32.7 g/dl (32.0-36.0); MEAN PLT VOLUME 6.4 fl (7.5-11.1); PLATELET COUNT 332 K/MM3 (134-434); RBC 3.41 M/mm3 (3.60-5.2); RDW 17.5 % (11.6-15.6); WHITE BLOOD COUNT 7.5 K/mm3 (4.0-10.0)
[2017-11-02 08:01] LABS: ANION GAP 9 (8-16); BLOOD UREA NITROGEN 9 mg/dL (7-18); CHLORIDE 113 mmol/L (98-107); CO2 20 mmol/L (21-32); GLUCOSE,RANDOM 183 mg/dL (74-106); MAGNESIUM 2.1 mg/dL (1.8-2.4); POTASSIUM 3.4 mmol/L (3.5-5.1); SODIUM 142 mmol/L (136-145)
[2017-11-02 08:02] LABS: CREATININE 0.8 mg/dL (0.55-1.02)
[2017-11-02] MEDS: METOPROLOL TARTRATE 50 MG TABLET (FP) NGT SCH ×2 (11:04→21:44)
[2017-11-02] MEDS: APIXABAN 5 MG TABLET PO SCH ×2 (11:04→21:44)
[2017-11-02] MEDS: RANITIDINE HCL 150 MG TABLET (FP) PO SCH ×2 (11:04→21:56)
[2017-11-02] MEDS: MINERAL OIL/PETROLATUM,WHITE 3.5 GM TUBE OU SCH ×2 (11:05→22:03)
[2017-11-02] MEDS: NYSTATIN 100000 UNIT/GM TOPICAL OINTMENT 15 GM TUBE TP SCH ×2 (11:06→22:03)
[2017-11-02] MEDS: SODIUM CHLORIDE 1,000 ML IV SCH ×2 (11:29→17:13)
--- NOTE | 2017-11-02 11:41 | PN ---
Progress Note (short form) - Note Progress Note: PULMONARY AFEBRILE/AWAKE/REPORTS NO VOMITING SPO2 98% ON 35% TRACH COLLAR ANICTERIC DIMINISHED BREATH SOUNDS B/L S1S2 BS+ PEG NO EDEMA LABS/MEDS/NOTES/IMAGES/MICRO Multiple Acute Embolic CVA/?metastatic lesions Acute Hypoxic Respiratory Failure s/p Tracheostomy Aspiration Pneumonia Atrial Fibrillation with RVR Metastatic Colon Ca to Lung Large right base lung mass/left infiltrate with effusion Acute on Chronic Renal Failure HTN DM Hypercholesterolemia - vent support - trach collar as tolerated/a/c mode when sob - cautious use of anticoagulation in setting of possible brain mets - monitor urine output, creatinine - enteral feeds - DVT/GI prophylaxis - Need to determine goals of care - Would trial reglan as suggested by RAFAEL WILSON MD Problem List - Problems (1) Anemia Code(s): D64.9 - ANEMIA, UNSPECIFIED (2) Brain metastasis Code(s): C79.31 - SECONDARY MALIGNANT NEOPLASM OF BRAIN (3) CVA (cerebral vascular accident) Code(s): I63.9 - CEREBRAL INFARCTION, UNSPECIFIED Qualifiers: Laterality of affected vessel: unspecified (4) Fever Code(s): R50.9 - FEVER, UNSPECIFIED Qualifiers: Fever type: unspecified Qualified Code(s): R50.9 - Fever, unspecified (5) Headache Code(s): R51 - HEADACHE Qualifiers: Headache chronicity pattern: unspecified pattern Intractability: intractable (6) Hypercapnia Code(s): R06.89 - OTHER ABNORMALITIES OF BREATHING (7) Metastatic colorectal cancer Code(s): C78.5 - SECONDARY MALIGNANT NEOPLASM OF LARGE INTESTINE AND RECTUM (8) Pleural effusion Code(s): J90 - PLEURAL EFFUSION, NOT ELSEWHERE CLASSIFIED (9) Pneumonia Code(s): J18.9 - PNEUMONIA, UNSPECIFIED ORGANISM (10) Respiratory failure Code(s): J96.90 - RESPIRATORY FAILURE, UNSP, UNSP W HYPOXIA OR HYPERCAPNIA (11) Ventilator dependent Code(s): Z99.11 - DEPENDENCE ON RESPIRATOR [VENTILATOR] STATUS
--- NOTE | 2017-11-02 11:49 | PN ---
Progress Note, Physician Chief Complaint: Stroke and persistent headaches History of Present Illness: For Dr. Pulido. Complicated patient, who had posterior fossa infarctions. History of colon CA, mets to lung. Now with large infarctions to posterior fossa including occipital lobe, cerebellum and brainstem, and history of PAF on eloquis. She has aspiration pneumonia and multiple metabolic abnormalities and respiratory compromise and overall poor prognosis. I am asked to reevaluate her because of complaints of persistent headache which patient says has been present since admission. She says that the average pain level is 5/10, gets up to 10/10, and waxes and wanes, with some photophobia and nausea at times but no phonophobia. she has no prior headache history. She's been given acetaminophen for the headaches so far. She had been on decadron early in the admission from mass effect in the brain but that was tapered off and she doesn't appear to be on that now. - Current Medication List Current Medications: Active Medications Acetaminophen (Tylenol Oral Solution -) 650 mg PEG Q6H PRN PRN Reason: FEVER Last Admin: 11/01/17 16:46 Dose: 650 mg Apixaban (Eliquis -) 5 mg PO BID [facility] Last Admin: 11/02/17 11:04 Dose: 5 mg Artificial Tears (Artificial Tears Ointment -) 1 applic OU BID [facility] Last Admin: 11/02/17 11:05 Dose: 1 applic Atorvastatin Calcium (Lipitor -) 20 mg PO HS [facility] Last Admin: 11/01/17 22:29 Dose: 20 mg Digoxin (Lanoxin -) 0.125 mg PEG Q2D@1000 [facility] Last Admin: 11/01/17 10:57 Dose: 0.125 mg Diltiazem HCl 60 mg/ Diltiazem (HCl 30 mg) 90 mg NGT Q6HPO [facility] Last Admin: 11/02/17 11:04 Dose: 90 mg IV Flush (Picc Line Flush) 8 ml IVPUSH PRN PRN PRN Reason: Protocol Last Admin: 10/10/17 22:13 Dose: 8 ml Sodium Chloride (Normal Saline -) 1,000 mls @ 75 mls/hr IV ASDIR [facility] Last Admin: 11/02/17 11:29 Dose: 75 mls/hr Insulin Aspart (Novolog Vial Sliding Scale -) 1 vial SQ Q6H CORDELIA PRN Reason: Protocol Last Admin: 11/02/17 11:08 Dose: Not Given Insulin Detemir (Levemir Vial) 20 units SQ AM [facility] Last Admin: 11/02/17 07:03 Dose: 20 units Insulin Detemir (Levemir Vial) 18 units SQ HS [facility] Last Admin: 11/01/17 23:56 Dose: 18 units Metoprolol Tartrate (Lopressor -) 50 mg NGT BID [facility] Last Admin: 11/02/17 11:04 Dose: 50 mg Mupirocin (Bactroban 2% Ointment -) 1 applic TP TID [facility] Last Admin: 11/02/17 05:40 Dose: 1 applic Nystatin (Mycostatin Ointment -) 1 applic TP BID [facility] Last Admin: 11/02/17 11:06 Dose: 1 applic Ondansetron HCl (Zofran Injection) 4 mg IVPUSH Q6H PRN PRN Reason: NAUSEA Last Admin: 11/01/17 13:18 Dose: 4 mg Quetiapine Fumarate (Seroquel -) 25 mg PO [facility] Last Admin: 11/01/17 22:36 Dose: 25 mg Ranitidine HCl (Zantac -) 150 mg PO BID [facility] Last Admin: 11/02/17 11:04 Dose: 150 mg Trazodone HCl (Desyrel -) 50 mg PO [facility] Last Admin: 11/01/17 22:30 Dose: 50 mg Valproate Sodium (Depacon Injection -) 500 mg IVPB BID [facility] - Objective Vital Signs: Vital Signs Temperature 97.4 F L 11/02/17 06:00 Pulse Rate 72 11/02/17 06:34 Respiratory Rate 18 11/02/17 06:00 Blood Pressure 149/75 11/02/17 06:00 O2 Sat by Pulse Oximetry (%) 99 11/02/17 06:34 Constitutional: Yes: Other (Thin woman, with trach in place, freuquently coughing up phlegm, and requiring suctioning.) Eyes: Yes: Ptosis (left) Neurological: Yes: Other (bilateral nystagmus, left dysmetria) Labs: CBC, BMP 11/02/17 06:00 11/02/17 06:00 INR, PTT INR 1.02 (0.82-1.09) 02/16/18 12:55 - ....Imaging Cat Scan: Report Reviewed, Image Reviewed (old ct scans reviewed but none since mid September) Problem List - Problems (1) Anemia Code(s): D64.9 - ANEMIA, UNSPECIFIED (2) Aspiration into airway Code(s): T17.908A - UNSP FB IN RESP TRACT, PART UNSP CAUSING OTH INJURY, INIT (3) Brain metastasis Code(s): C79.31 - SECONDARY MALIGNANT NEOPLASM OF BRAIN (4) Sheeba infection Code(s): B37.9 - CANDIDIASIS, UNSPECIFIED (5) Fever Code(s): R50.9 - FEVER, UNSPECIFIED Qualifiers: Fever type: unspecified Qualified Code(s): R50.9 - Fever, unspecified (6) Headache Code(s): R51 - HEADACHE Qualifiers: Headache chronicity pattern: unspecified pattern Intractability: intractable Assessment/Plan Headache may be migrainous related to stroke, or could be related to mass effect or hydrocephalus, and as she hasn't been imaged in a few weeks, I'll order CT scan for today. IF there is suggestion of increasing mass effect or hydrocephalus she may require decadron or neurosurgical intervention. Otherwise , I've added Depacon 500 q 12 hours which can be ultimately converted to oral divalproex sodium. I'll sign this out to Dr. Pulido for F/U.
--- NOTE | 2017-11-02 13:47 | PN ---
Progress Note (short form) - Note Progress Note: Multiple Acute Embolic CVA/?metastatic lesions Acute Hypoxic Respiratory Failure s/p Tracheostomy Aspiration Pneumonia Atrial Fibrillation with RVR Metastatic Colon Ca to Lung Large right base lung mass/left infiltrate with effusion Acute on Chronic Renal Failure HTN DM Hypercholesterolemia - vent support - trach collar as tolerated/a/c mode when sob - cautious use of anticoagulation in setting of possible brain mets - monitor urine output, creatinine - enteral feeds - DVT/GI prophylaxis - Need to determine goals of care - metochloprimide as suggested by GI Problem List - Problems (1) Ventilator dependence Code(s): Z99.11 - DEPENDENCE ON RESPIRATOR [VENTILATOR] STATUS (2) Anemia Code(s): D64.9 - ANEMIA, UNSPECIFIED (3) Aspiration into airway Code(s): T17.908A - UNSP FB IN RESP TRACT, PART UNSP CAUSING OTH INJURY, INIT (4) CVA (cerebral vascular accident) Code(s): I63.9 - CEREBRAL INFARCTION, UNSPECIFIED Qualifiers: Laterality of affected vessel: unspecified (5) Hypernatremia Code(s): E87.0 - HYPEROSMOLALITY AND HYPERNATREMIA (6) Hypomagnesemia Code(s): E83.42 - HYPOMAGNESEMIA (7) Metastatic colorectal cancer Code(s): C78.5 - SECONDARY MALIGNANT NEOPLASM OF LARGE INTESTINE AND RECTUM (8) Pleural effusion Code(s): J90 - PLEURAL EFFUSION, NOT ELSEWHERE CLASSIFIED (9) Pneumonia Code(s): J18.9 - PNEUMONIA, UNSPECIFIED ORGANISM Visit type - Emergency Visit Emergency Visit: No - New Patient This patient is new to me today: Yes Date on this admission: 11/02/17 - Critical Care Critical Care patient: No - Discharge Referral Referred to [facility] Med P.C.: No
[2017-11-02] MEDS: ACETAMINOPHEN 650 MG/20.3 ML ORAL SOLUTION (CUPS) PEG PRN (17:31)
[2017-11-02] MEDS ORDERED: PT OWN MED DRAWER 7, Y5N ONE (21:41)
[2017-11-02] MEDS: VALPROATE SODIUM 500 MG/5 ML VIAL IVPB SCH (21:44)
[2017-11-02] MEDS: traZODone HCL 50 MG TABLET (FP) PO SCH (21:44)
[2017-11-02] MEDS: ATORVASTATIN CA 20 MG TABLET (FP) PO SCH (21:44)
[2017-11-02] MEDS: QUEtiapine FUMARATE 25 MG TABLET (FP) PO SCH (21:45)
[2017-11-03] MEDS ORDERED: dilTIAZem HCL 60 MG TABLET (FP) ONE ×5 (00:28→23:10)
[2017-11-03] MEDS ORDERED: dilTIAZem HCL 30 MG TABLET (FP) ONE ×5 (00:28→23:10)
[2017-11-03] MEDS: ACETAMINOPHEN 650 MG/20.3 ML ORAL SOLUTION (CUPS) PEG PRN (00:30)
[2017-11-03] MEDS: DILTIAZEM 60 MG, DILTIAZEM 30 MG NGT SCH ×5 (00:31→23:15)
[2017-11-03] MEDS: INSULIN SLIDING SCALE (NOVOLOG) 1 VIAL SQ SCH ×5 (00:41→23:19)
[2017-11-03] MEDS: SODIUM CHLORIDE 1,000 ML IV SCH ×2 (03:38→18:20)
[2017-11-03] MEDS: INSULIN DETEMIR 100 UNITS/ML MDV SQ SCH ×2 (06:26→23:18)
[2017-11-03] MEDS: MUPIROCIN 2% TOPICAL OINTMENT 22 GM TUBE TP SCH ×3 (06:35→23:19)
[2017-11-03] MEDS ORDERED: INSULIN (NOVOLOG) ASPART 100 UNITS/ML 10ML VIAL ONE (07:01)
[2017-11-03] MEDS ORDERED: PT OWN MED DRAWER 7, Y5N ONE (10:00)
[2017-11-03] MEDS: DIGOXIN 0.125 MG TABLET (FP) PEG SCH (10:11)
[2017-11-03] MEDS: APIXABAN 5 MG TABLET PO SCH ×2 (10:11→23:16)
[2017-11-03] MEDS: METOPROLOL TARTRATE 50 MG TABLET (FP) NGT SCH ×2 (10:12→23:16)
[2017-11-03] MEDS: RANITIDINE HCL 150 MG TABLET (FP) PO SCH ×2 (10:12→23:17)
[2017-11-03] MEDS: VALPROATE SODIUM 500 MG/5 ML VIAL IVPB SCH (10:13)
[2017-11-03] MEDS: NYSTATIN 100000 UNIT/GM TOPICAL OINTMENT 15 GM TUBE TP SCH ×2 (10:16→23:18)
[2017-11-03] MEDS: MINERAL OIL/PETROLATUM,WHITE 3.5 GM TUBE OU SCH ×2 (10:17→23:19)
--- NOTE | 2017-11-03 11:49 | PN ---
Progress Note (short form) - Note Progress Note: PULMONARY AFEBRILE/AWAKE/REPORTS NO FURTHER HEADACHE CT BRAIN REVIEWED:SIGNIFICANT IMPROVEMENT SPO2 99% ON 35% TRACH COLLAR ANICTERIC DIMINISHED BREATH SOUNDS B/L S1S2 BS+ PEG NO EDEMA LABS/MEDS/NOTES/IMAGES/MICRO Multiple Acute Embolic CVA/?metastatic lesions Acute Hypoxic Respiratory Failure s/p Tracheostomy Aspiration Pneumonia Atrial Fibrillation with RVR Metastatic Colon Ca to Lung Large right base lung mass/left infiltrate with effusion Acute on Chronic Renal Failure HTN DM Hypercholesterolemia - vent support - trach collar as tolerated/a/c mode when sob - cautious use of anticoagulation in setting of possible brain mets - monitor urine output, creatinine - enteral feeds - DVT/GI prophylaxis - Need to determine goals of care Marley WILSON MD Problem List - Problems (1) Anemia Code(s): D64.9 - ANEMIA, UNSPECIFIED (2) Brain metastasis Code(s): C79.31 - SECONDARY MALIGNANT NEOPLASM OF BRAIN (3) CVA (cerebral vascular accident) Code(s): I63.9 - CEREBRAL INFARCTION, UNSPECIFIED Qualifiers: Laterality of affected vessel: unspecified (4) Fever Code(s): R50.9 - FEVER, UNSPECIFIED Qualifiers: Fever type: unspecified Qualified Code(s): R50.9 - Fever, unspecified (5) Headache Code(s): R51 - HEADACHE Qualifiers: Headache chronicity pattern: unspecified pattern Intractability: intractable (6) Hypercapnia Code(s): R06.89 - OTHER ABNORMALITIES OF BREATHING (7) Metastatic colorectal cancer Code(s): C78.5 - SECONDARY MALIGNANT NEOPLASM OF LARGE INTESTINE AND RECTUM (8) Pleural effusion Code(s): J90 - PLEURAL EFFUSION, NOT ELSEWHERE CLASSIFIED (9) Pneumonia Code(s): J18.9 - PNEUMONIA, UNSPECIFIED ORGANISM (10) Respiratory failure Code(s): J96.90 - RESPIRATORY FAILURE, UNSP, UNSP W HYPOXIA OR HYPERCAPNIA (11) Ventilator dependent Code(s): Z99.11 - DEPENDENCE ON RESPIRATOR [VENTILATOR] STATUS
--- NOTE | 2017-11-03 12:34 | PN ---
Progress Note, Physician History of Present Illness: No events. PEG intact. Awake, alert. - Current Medication List Current Medications: Active Medications Acetaminophen (Tylenol Oral Solution -) 650 mg PEG Q6H PRN PRN Reason: FEVER Last Admin: 11/03/17 00:30 Dose: 650 mg Apixaban (Eliquis -) 5 mg PO BID [facility] Last Admin: 11/03/17 10:11 Dose: 5 mg Artificial Tears (Artificial Tears Ointment -) 1 applic OU BID [facility] Last Admin: 11/03/17 10:17 Dose: 1 applic Atorvastatin Calcium (Lipitor -) 20 mg PO HS [facility] Last Admin: 11/02/17 21:44 Dose: 20 mg Digoxin (Lanoxin -) 0.125 mg PEG Q2D@1000 [facility] Last Admin: 11/03/17 10:11 Dose: 0.125 mg Diltiazem HCl 60 mg/ Diltiazem (HCl 30 mg) 90 mg NGT Q6HPO [facility] Last Admin: 11/03/17 12:21 Dose: 90 mg IV Flush (Picc Line Flush) 8 ml IVPUSH PRN PRN PRN Reason: Protocol Last Admin: 10/10/17 22:13 Dose: 8 ml Sodium Chloride (Normal Saline -) 1,000 mls @ 75 mls/hr IV ASDIR [facility] Last Admin: 11/03/17 03:38 Dose: 75 mls/hr Insulin Aspart (Novolog Vial Sliding Scale -) 1 vial SQ Q6H CORDELIA PRN Reason: Protocol Last Admin: 11/03/17 12:22 Dose: 2 units Insulin Detemir (Levemir Vial) 20 units SQ AM [facility] Last Admin: 11/03/17 06:26 Dose: 20 units Insulin Detemir (Levemir Vial) 18 units SQ HS [facility] Last Admin: 11/02/17 21:57 Dose: Not Given Metoprolol Tartrate (Lopressor -) 50 mg NGT BID [facility] Last Admin: 11/03/17 10:12 Dose: 50 mg Mupirocin (Bactroban 2% Ointment -) 1 applic TP TID [facility] Last Admin: 11/03/17 06:35 Dose: 1 applic Nystatin (Mycostatin Ointment -) 1 applic TP BID [facility] Last Admin: 11/03/17 10:16 Dose: 1 applic Ondansetron HCl (Zofran Injection) 4 mg IVPUSH Q6H PRN PRN Reason: NAUSEA Last Admin: 11/01/17 13:18 Dose: 4 mg Quetiapine Fumarate (Seroquel -) 25 mg PO [facility] Last Admin: 11/02/17 21:45 Dose: 25 mg Ranitidine HCl (Zantac -) 150 mg PO BID [facility] Last Admin: 11/03/17 10:12 Dose: 150 mg Trazodone HCl (Desyrel -) 50 mg PO [facility] Last Admin: 11/02/17 21:44 Dose: 50 mg Valproate Sodium (Depacon Injection -) 500 mg IVPB BID [facility] Last Admin: 11/03/17 10:13 Dose: 500 mg - Objective Vital Signs: Vital Signs Temperature 97.6 F 11/03/17 12:14 Pulse Rate 65 11/03/17 12:14 Respiratory Rate 21 11/03/17 12:14 Blood Pressure 140/76 11/03/17 12:14 O2 Sat by Pulse Oximetry (%) 99 11/03/17 09:00 Constitutional: Yes: No Distress, Calm Gastrointestinal: Yes: Soft. No: Tenderness, Epigastrium, Tenderness, Rebound Labs: CBC, BMP 11/02/17 06:00 11/02/17 06:00 INR, PTT INR 1.02 (0.82-1.09) 10/24/17 12:55 CBCD WBC 7.5 K/mm3 (4.0-10.0) 11/02/17 06:00 RBC 3.41 M/mm3 (3.60-5.2) L 11/02/17 06:00 Hgb 9.7 GM/dL (10.7-15.3) L 11/02/17 06:00 Hct 29.7 % (32.4-45.2) L 11/02/17 06:00 MCV 87.0 fl (80-96) 11/02/17 06:00 MCHC 32.7 g/dl (32.0-36.0) 11/02/17 06:00 RDW 17.5 % (11.6-15.6) H 11/02/17 06:00 Plt Count 332 K/MM3 (134-434) 11/02/17 06:00 MPV 6.4 fl (7.5-11.1) L 11/02/17 06:00 CMP Sodium 142 mmol/L (136-145) 11/02/17 06:00 Potassium 3.4 mmol/L (3.5-5.1) L 11/02/17 06:00 Chloride 113 mmol/L (98-107) H 11/02/17 06:00 Carbon Dioxide 20 mmol/L (21-32) L 11/02/17 06:00 Anion Gap 9 (8-16) 11/02/17 06:00 BUN 9 mg/dL (7-18) 11/02/17 06:00 Creatinine 0.8 mg/dL (0.55-1.02) 11/02/17 06:00 Creat Clearance w eGFR 35.42 (>60) 10/29/17 10:42 Calcium 8.0 mg/dL (8.5-10.1) L 11/02/17 06:00 Total Bilirubin 0.4 mg/dL (0.2-1.0) D 10/29/17 10:42 AST 16 U/L (15-37) 10/29/17 10:42 ALT 39 U/L (12-78) 10/29/17 10:42 Alkaline Phosphatase 159 U/L (45-117) H 10/29/17 10:42 Total Protein 6.5 g/dl (6.4-8.2) 10/29/17 10:42 Albumin 2.4 g/dl (3.4-5.0) L 10/29/17 10:42 Problem List - Problems (1) Brain metastasis Code(s): C79.31 - SECONDARY MALIGNANT NEOPLASM OF BRAIN (2) CVA (cerebral vascular accident) Code(s): I63.9 - CEREBRAL INFARCTION, UNSPECIFIED Qualifiers: Laterality of affected vessel: unspecified (3) Metastatic colorectal cancer Code(s): C78.5 - SECONDARY MALIGNANT NEOPLASM OF LARGE INTESTINE AND RECTUM (4) Respiratory failure Code(s): J96.90 - RESPIRATORY FAILURE, UNSP, UNSP W HYPOXIA OR HYPERCAPNIA Assessment/Plan Continue current tube feeding protocol. Observe
--- NOTE | 2017-11-03 12:54 | DS ---
Physical Examination Vital Signs: Vital Signs Temperature 97.6 F 11/03/17 12:14 Pulse Rate 65 11/03/17 12:14 Respiratory Rate 21 11/03/17 12:14 Blood Pressure 140/76 11/03/17 12:14 O2 Sat by Pulse Oximetry (%) 99 11/03/17 09:00 no fever and awake Constitutional: Yes: Calm HENT: Yes: Other (trach) Cardiovascular: Yes: Regular Rate and Rhythm, S1, S2 Respiratory: Yes: CTA Bilaterally Gastrointestinal: Yes: Normal Bowel Sounds, Soft, Other (peg) Neurological: Yes: Alert, Oriented Labs: CBC, BMP 11/02/17 06:00 11/02/17 06:00 Discharge Summary Reason For Visit: HEADACHE,LUNG MASS,VOMITING Current Active Problems Anemia (Acute) Aspiration into airway (Acute) Brain metastasis (Acute) CVA (cerebral vascular accident) (Acute) Sheeba infection (Acute) Fever (Acute) Fever (Acute) Headache (Acute) Hypercapnia (Acute) Hypernatremia (Acute) Hypomagnesemia (Acute) Ileus (Acute) Intractable vomiting with nausea (Acute) Metastatic colorectal cancer (Acute) Pleural effusion (Acute) Pneumonia (Acute) Proctitis (Acute) Respiratory failure (Acute) 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 She also had a headache earlier. She did not take any of her BP medication yesterday. ER course was notable for: (1) CT head with multiple foci of low attenuation, ?metastatic disease in hospital had chemo port removed MRI shows multiple infarcts infra and supratentorial patient require intubation during hospital stay because of change in mental status found to have hydropcephalus needed decompression surgery family declined patient underwent tracheostomy and peg insertion during hospital stay started on depakote per neurology got 7 days course of iv abx for pna UTI on iv abx completed course, mycolog cream to the groin afib on eliquis,metorpolol,cardizem and digoxin psych trazadone,seroquel Condition: Stable - Instructions Diet, Activity, Other Instructions: tube feeds vitals 1.2 at 20cc / hr with 20cc per hr water flush continue tube feeds for 24 hrs Referrals: Julian Redding MD [Staff Physician] - Dejan Medina MD [Primary Care Provider] - Disposition: [facility] FACILITY - Home Medications Comprehensive Discharge Medication List: Ambulatory Orders Atorvastatin Ca [Lipitor] 20 mg PO HS #0 tablet 01/14/14 Insulin Pump Controller [Snap Insulin Pump Controller] 0 units SQ ASDIR Gabapentin 300 mg PO BID #60 capsule 08/23/14 Apixaban [Eliquis -] 5 mg PO BID #60 tablet 06/24/17 Diltiazem Cd [Cardizem Cd -] 120 mg PO DAILY #30 cap.cd.24h 06/24/17 Ramipril [Altace] 5 mg PO DAILY #30 tab 06/24/17 Metoprolol Succinate 50 mg PO DAILY 08/14/17 Oxycodone HCl/Acetaminophen [Percocet 5/325 -] 1 - 2 tab PO Q4H PRN #20 tablet MDD 6 08/18/17
--- NOTE | 2017-11-03 17:47 | PN ---
Progress Note, [employer] - Note Progress Note: 62 yo female seen at bedside for PMV eval. Family members present for this session. With valve in place, pt was able to tolerate with good O2 at 97% for 5 minutes. Pt began to complains feeling "hot" and anxiousness. Voice quality was characterized as hoarsen and breathy. Increase respirations and elevated heart rate observed. PMV removed. Pt vitals returned to normal. RT and I explained that pt was able to tolerate PMV for a few minutes but it will take some time and vocal intervention to establish better results.
[2017-11-03] MEDS ORDERED: DIVALPROEX SODIUM 500 MG TABLET E.C. PO SCH (22:00)
[2017-11-03] MEDS: traZODone HCL 50 MG TABLET (FP) PO SCH (23:16)
[2017-11-03] MEDS: ATORVASTATIN CA 20 MG TABLET (FP) PO SCH (23:16)
[2017-11-03] MEDS: QUEtiapine FUMARATE 25 MG TABLET (FP) PO SCH (23:17)
[2017-11-03] MEDS: DIVALPROEX SODIUM 125 MG SPRINKLE CAPS (FP) PEG SCH (23:29)
[2017-11-04] MEDS ORDERED: dilTIAZem HCL 30 MG TABLET (FP) ONE ×2 (05:28→11:15)
[2017-11-04] MEDS ORDERED: dilTIAZem HCL 60 MG TABLET (FP) ONE ×2 (05:29→11:15)
[2017-11-04] MEDS: DILTIAZEM 60 MG, DILTIAZEM 30 MG NGT SCH ×2 (05:42→11:34)
[2017-11-04] MEDS: SODIUM CHLORIDE 1,000 ML IV SCH (05:43)
[2017-11-04] MEDS: MUPIROCIN 2% TOPICAL OINTMENT 22 GM TUBE TP SCH (05:44)
[2017-11-04] MEDS: INSULIN SLIDING SCALE (NOVOLOG) 1 VIAL SQ SCH ×2 (05:44→12:20)
[2017-11-04] MEDS: INSULIN DETEMIR 100 UNITS/ML MDV SQ SCH (06:17)
[2017-11-04] MEDS ORDERED: INSULIN DETEMIR 100 UNITS/ML MDV SQ SCH (10:18)
--- NOTE | 2017-11-04 10:19 | PN ---
Progress Note, Physician Chief Complaint: patient ready for discharge today seen by RT yesterday for PMV afebrile - Current Medication List Current Medications: Active Medications Acetaminophen (Tylenol Oral Solution -) 650 mg PEG Q6H PRN PRN Reason: FEVER Last Admin: 11/03/17 00:30 Dose: 650 mg Apixaban (Eliquis -) 5 mg PO BID [facility] Last Admin: 11/03/17 23:16 Dose: 5 mg Artificial Tears (Artificial Tears Ointment -) 1 applic OU BID [facility] Last Admin: 11/03/17 23:19 Dose: 1 applic Atorvastatin Calcium (Lipitor -) 20 mg PO HS [facility] Last Admin: 11/03/17 23:16 Dose: 20 mg Digoxin (Lanoxin -) 0.125 mg PEG Q2D@1000 [facility] Last Admin: 11/03/17 10:11 Dose: 0.125 mg Diltiazem HCl 60 mg/ Diltiazem (HCl 30 mg) 90 mg NGT Q6HPO [facility] Last Admin: 11/04/17 05:42 Dose: 90 mg Divalproex Sodium (Depakote Sprinkle Caps -) 500 mg PEG BID [facility] Last Admin: 11/03/17 23:29 Dose: 500 mg IV Flush (Picc Line Flush) 8 ml IVPUSH PRN PRN PRN Reason: Protocol Last Admin: 10/10/17 22:13 Dose: 8 ml Sodium Chloride (Normal Saline -) 1,000 mls @ 75 mls/hr IV ASDIR [facility] Last Admin: 11/04/17 05:43 Dose: 75 mls/hr Insulin Aspart (Novolog Vial Sliding Scale -) 1 vial SQ Q6H [facility] PRN Reason: Protocol Last Admin: 11/04/17 05:44 Dose: Not Given Insulin Detemir (Levemir Vial) 20 units SQ AM [facility] Last Admin: 11/04/17 06:17 Dose: 20 units Insulin Detemir (Levemir Vial) 18 units SQ HS [facility] Last Admin: 11/03/17 23:18 Dose: 18 units Metoprolol Tartrate (Lopressor -) 50 mg NGT BID [facility] Last Admin: 11/03/17 23:16 Dose: 50 mg Mupirocin (Bactroban 2% Ointment -) 1 applic TP TID [facility] Last Admin: 11/04/17 05:44 Dose: 1 applic Nystatin (Mycostatin Ointment -) 1 applic TP BID [facility] Last Admin: 11/03/17 23:18 Dose: 1 applic Ondansetron HCl (Zofran Injection) 4 mg IVPUSH Q6H PRN PRN Reason: NAUSEA Last Admin: 11/01/17 13:18 Dose: 4 mg Quetiapine Fumarate (Seroquel -) 25 mg PO HS [facility] Last Admin: 11/03/17 23:17 Dose: 25 mg Ranitidine HCl (Zantac -) 150 mg PO BID [facility] Last Admin: 11/03/17 23:17 Dose: 150 mg Trazodone HCl (Desyrel -) 50 mg PO [facility] Last Admin: 11/03/17 23:16 Dose: 50 mg - Objective Vital Signs: Vital Signs Temperature 97.8 F 11/04/17 06:00 Pulse Rate 78 11/04/17 06:12 Respiratory Rate 20 11/04/17 06:00 Blood Pressure 141/93 11/04/17 06:00 O2 Sat by Pulse Oximetry (%) 97 11/04/17 06:12 Constitutional: Yes: Calm Neck: Yes: Trachea Midline, Other (tracheostomy) Cardiovascular: Yes: Pulse Irregular, S1, S2 Respiratory: Yes: CTA Bilaterally, Diminished (at bases) Gastrointestinal: Yes: Normal Bowel Sounds, Soft, Other (g tube) Neurological: Yes: Alert Labs: CBC, BMP 11/02/17 06:00 11/02/17 06:00 INR, PTT INR 1.02 (0.82-1.09) 10/24/17 12:55 Problem List - Problems (1) Vomiting alone Assessment/Plan: feeding rate decrease elevate the head of bed while tube feeds are on Code(s): R11.11 - VOMITING WITHOUT NAUSEA (2) Respiratory failure Assessment/Plan: s/p tracheostomy now on trach collar 40% bactroban to trach site ENT saw patient PMV as tolerated Code(s): J96.90 - RESPIRATORY FAILURE, UNSP, UNSP W HYPOXIA OR HYPERCAPNIA (3) Hypomagnesemia Assessment/Plan: now magnesium normal Code(s): E83.42 - HYPOMAGNESEMIA (4) Fever Assessment/Plan: Microbiology 10/19/17 00:15 Urine - Urine - Catheterized Urine Culture - Final NO GROWTH OBTAINED 10/16/17 12:48 Blood - Peripheral Venous Blood Culture - Final NO GROWTH AFTER 5 DAYS INCUBATION 10/16/17 11:45 Blood - Peripheral Venous Blood Culture - Final NO GROWTH AFTER 5 DAYS INCUBATION 10/18/17 20:50 Blood - Peripheral Venous Blood Culture - Preliminary NO GROWTH OBTAINED AFTER 96 HOURS, INCUBATION TO CONTINUE FOR 1 DAYS. 10/18/17 20:20 Blood - Peripheral Venous Blood Culture - Preliminary NO GROWTH OBTAINED AFTER 96 HOURS, INCUBATION TO CONTINUE FOR 1 DAYS. off abx- fevers stopped Code(s): R50.9 - FEVER, UNSPECIFIED (5) UTI (urinary tract infection) Assessment/Plan: Microbiology 10/09/17 04:30 Urine - Urine - Catheterized Urine Culture - Final Pseudomonas Aeruginosa ceftazidime- course done Code(s): N39.0 - URINARY TRACT INFECTION, SITE NOT SPECIFIED (6) Sheeba infection Assessment/Plan: diflucan 200mg daily- completed topical antifungal cream to groin- completed Code(s): B37.9 - CANDIDIASIS, UNSPECIFIED (7) Pneumonia Assessment/Plan: iv zosyn s/p 8 day course abx stopped Code(s): J18.9 - PNEUMONIA, UNSPECIFIED ORGANISM (8) Atrial fibrillation Assessment/Plan: digoxin,cardizem and metoprolol restarted eliquis Code(s): I48.91 - UNSPECIFIED ATRIAL FIBRILLATION (9) Anemia Assessment/Plan: ppi s/p prbc h/h improved stool occult blood negative Code(s): D64.9 - ANEMIA, UNSPECIFIED (10) Diabetes Assessment/Plan: bgm morning noted-levemir dose adjusted night time dose stopped and day time dose decreased to 10 units Code(s): E11.9 - TYPE 2 DIABETES MELLITUS WITHOUT COMPLICATIONS Qualifiers: Diabetes mellitus type: type 2 (11) CVA (cerebral vascular accident) Assessment/Plan: S/p multiple acute embolic infarcts - s/p trach on trach collar s/p peg now needs snf placement eliquis statin Code(s): I63.9 - CEREBRAL INFARCTION, UNSPECIFIED Qualifiers: Laterality of affected vessel: unspecified
[2017-11-04] MEDS ORDERED: PT OWN MED DRAWER 7, Y5N ONE (11:16)
--- NOTE | 2017-11-04 11:18 | PN ---
Progress Note (short form) - Note Progress Note: NAD on 40% Trach collar. Saturation 98%. Remains afebrile. Awake and interactive. Intake & Output 11/01/17 11/02/17 11/03/17 11/04/17 23:59 23:59 23:59 23:59 Intake Total 8529 241 7082 1440 Balance 8437 656 6100 1440 Weight 181 lb 0.2 oz Last Vital Signs Temp Pulse Resp BP Pulse Ox 97.8 F 78 20 141/93 97 11/04/17 06:00 11/04/17 06:12 11/04/17 06:00 11/04/17 06:00 11/04/17 06:12 Active Medications Acetaminophen (Tylenol Oral Solution -) 650 mg PEG Q6H PRN PRN Reason: FEVER Last Admin: 11/03/17 00:30 Dose: 650 mg Apixaban (Eliquis -) 5 mg PO BID [facility] Last Admin: 11/03/17 23:16 Dose: 5 mg Artificial Tears (Artificial Tears Ointment -) 1 applic OU BID [facility] Last Admin: 11/03/17 23:19 Dose: 1 applic Atorvastatin Calcium (Lipitor -) 20 mg PO HS [facility] Last Admin: 11/03/17 23:16 Dose: 20 mg Digoxin (Lanoxin -) 0.125 mg PEG Q2D@1000 [facility] Last Admin: 11/03/17 10:11 Dose: 0.125 mg Diltiazem HCl 60 mg/ Diltiazem (HCl 30 mg) 90 mg NGT Q6HPO [facility] Last Admin: 11/04/17 05:42 Dose: 90 mg Divalproex Sodium (Depakote Sprinkle Caps -) 500 mg PEG BID [facility] Last Admin: 11/03/17 23:29 Dose: 500 mg IV Flush (Picc Line Flush) 8 ml IVPUSH PRN PRN PRN Reason: Protocol Last Admin: 10/10/17 22:13 Dose: 8 ml Sodium Chloride (Normal Saline -) 1,000 mls @ 75 mls/hr IV ASDIR [facility] Last Admin: 11/04/17 05:43 Dose: 75 mls/hr Insulin Aspart (Novolog Vial Sliding Scale -) 1 vial SQ Q6H [facility] PRN Reason: Protocol Last Admin: 11/04/17 05:44 Dose: Not Given Insulin Detemir (Levemir Vial) 10 units SQ AM [facility] Metoprolol Tartrate (Lopressor -) 50 mg NGT BID [facility] Last Admin: 11/03/17 23:16 Dose: 50 mg Mupirocin (Bactroban 2% Ointment -) 1 applic TP TID [facility] Last Admin: 11/04/17 05:44 Dose: 1 applic Nystatin (Mycostatin Ointment -) 1 applic TP BID [facility] Last Admin: 11/03/17 23:18 Dose: 1 applic Ondansetron HCl (Zofran Injection) 4 mg IVPUSH Q6H PRN PRN Reason: NAUSEA Last Admin: 11/01/17 13:18 Dose: 4 mg Quetiapine Fumarate (Seroquel -) 25 mg PO [facility] Last Admin: 11/03/17 23:17 Dose: 25 mg Ranitidine HCl (Zantac -) 150 mg PO BID [facility] Last Admin: 11/03/17 23:17 Dose: 150 mg Trazodone HCl (Desyrel -) 50 mg PO [facility] Last Admin: 11/03/17 23:16 Dose: 50 mg Gen: Awake and interactive on Trach collar, NAD Neck: Trach intact Heart: RRR Lung: few scattered rhonchi Abd: soft, nontender Ext: Less edema Laboratory Results - last 24 hr 11/03/17 11/03/17 11/03/17 11:23 17:39 23:14 POC Glucometer 166 114 204 11/04/17 05:35 POC Glucometer 128 ASSESSMENT AND PLAN: Multiple Acute Embolic CVA Acute Hypoxic Respiratory Failure r/o Aspiration Pneumonia Atrial Fibrillation with RVR Metastatic Colon Ca to Lung Acute on Chronic Renal Failure Hyperkalemia HTN DM Hypercholesterolemia - Trach collar as tolerated / PMV with supervision - Enteral feeds - D/C planning to SNF Dr Kaplan
[2017-11-04] MEDS: DIVALPROEX SODIUM 125 MG SPRINKLE CAPS (FP) PEG SCH (11:28)
[2017-11-04] MEDS ORDERED: INSULIN (NOVOLOG) ASPART 100 UNITS/ML 10ML VIAL ONE (11:30)
[2017-11-04] MEDS: METOPROLOL TARTRATE 50 MG TABLET (FP) NGT SCH (11:34)
[2017-11-04] MEDS: APIXABAN 5 MG TABLET PO SCH (11:34)
[2017-11-04] MEDS: RANITIDINE HCL 150 MG TABLET (FP) PO SCH (11:35)
[2017-11-04] MEDS: MINERAL OIL/PETROLATUM,WHITE 3.5 GM TUBE OU SCH (11:41)
[2017-11-04] MEDS: NYSTATIN 100000 UNIT/GM TOPICAL OINTMENT 15 GM TUBE TP SCH (11:43)
[2017-11-04 12:31] VITALS: BP 132/79; PULSE 80; TEMP 98
== END 2017-11-04 13:48 | DRG 4 ==
LOC: JER 21:41 → JERBED 09-10 02:15 → J7W 09-10 06:47 → J4W 09-10 14:57 → INTOOBSV 09-10 21:18 → OBSVTOIN 09-10 21:18 → JICU 09-11 01:32 → J5S 10-07 20:00
PROVIDERS: ADMIT Family Medicine; ATTEND Family Medicine
PROC: 02PY03Z Removal of Infusion Device from Great Vessel, Open Approach (ICD-10-PCS; 2017-09-11)
PROC: 0WQ80ZZ Repair Chest Wall, Open Approach (ICD-10-PCS; 2017-09-11)
PROC: 5A1955Z Respiratory Ventilation, Greater than 96 Consecutive Hours (ICD-10-PCS; 2017-09-13)
PROC: 0BH17EZ Insertion of Endotracheal Airway into Trachea, Via Natural or Artificial Opening (ICD-10-PCS; 2017-09-13)
PROC: 5A1945Z Respiratory Ventilation, 24-96 Consecutive Hours (ICD-10-PCS; 2017-09-23)
PROC: 0BH17EZ Insertion of Endotracheal Airway into Trachea, Via Natural or Artificial Opening (ICD-10-PCS; 2017-09-23)
PROC: 30233N1 Transfusion of Nonautologous Red Blood Cells into Peripheral Vein, Percutaneous Approach (ICD-10-PCS; 2017-09-23)
PROC: 5A1945Z Respiratory Ventilation, 24-96 Consecutive Hours (ICD-10-PCS; 2017-09-28)
PROC: 0BH17EZ Insertion of Endotracheal Airway into Trachea, Via Natural or Artificial Opening (ICD-10-PCS; 2017-09-28)
PROC: 0B110F4 Bypass Trachea to Cutaneous with Tracheostomy Device, Open Approach (ICD-10-PCS; principal; 2017-10-01 10:00)
PROC: 0DH63UZ Insertion of Feeding Device into Stomach, Percutaneous Approach (ICD-10-PCS; 2017-10-02)
PROC: 3E0G76Z Introduction of Nutritional Substance into Upper GI, Via Natural or Artificial Opening (ICD-10-PCS; 2017-10-02)
PROC: 02HV33Z Insertion of Infusion Device into Superior Vena Cava, Percutaneous Approach (ICD-10-PCS; 2017-10-17)
PROC: B518YZA Fluoroscopy of Superior Vena Cava using Other Contrast, Guidance (ICD-10-PCS; 2017-10-17)
PROC: 02PYX3Z Removal of Infusion Device from Great Vessel, External Approach (ICD-10-PCS; 2017-10-17)
DX: C18.9 Malignant neoplasm of colon, unspecified (principal); C79.31 Secondary malignant neoplasm of brain; G93.6 Cerebral edema; I63.9 Cerebral infarction, unspecified; J69.0 Pneumonitis due to inhalation of food and vomit; A41.9 Sepsis, unspecified organism; E87.0 Hyperosmolality and hypernatremia; G91.9 Hydrocephalus, unspecified; N17.9 Acute kidney failure, unspecified; E87.3 Alkalosis; G81.94 Hemiplegia, unspecified affecting left nondominant side; E46 Unspecified protein-calorie malnutrition; J90 Pleural effusion, not elsewhere classified; E11.10 Type 2 diabetes mellitus with ketoacidosis without coma; R13.10 Dysphagia, unspecified; C78.00 Secondary malignant neoplasm of unspecified lung; I48.0 Paroxysmal atrial fibrillation; E87.5 Hyperkalemia; E11.3211 Type 2 diabetes mellitus with mild nonproliferative diabetic retinopathy with macular edema, right eye; E83.39 Other disorders of phosphorus metabolism; T82.514A Breakdown (mechanical) of infusion catheter, initial encounter; E11.22 Type 2 diabetes mellitus with diabetic chronic kidney disease; E87.2 Acidosis; I27.20 Pulmonary hypertension, unspecified; K56.7 Ileus, unspecified; E83.41 Hypermagnesemia; J96.01 Acute respiratory failure with hypoxia; J96.02 Acute respiratory failure with hypercapnia; E83.42 Hypomagnesemia; N39.0 Urinary tract infection, site not specified; E78.5 Hyperlipidemia, unspecified; Z87.891 Personal history of nicotine dependence; Z79.4 Long term (current) use of insulin; K21.9 Gastro-esophageal reflux disease without esophagitis; I12.9 Hypertensive chronic kidney disease with stage 1 through stage 4 chronic kidney disease, or unspecified chronic kidney disease; N18.9 Chronic kidney disease, unspecified; R11.2 Nausea with vomiting, unspecified; T45.1X5A Adverse effect of antineoplastic and immunosuppressive drugs, initial encounter; Z79.01 Long term (current) use of anticoagulants; Z99.11 Dependence on respirator [ventilator] status; Y84.8 Other medical procedures as the cause of abnormal reaction of the patient, or of later complication, without mention of misadventure at the time of the procedure; H11.32 Conjunctival hemorrhage, left eye; D64.9 Anemia, unspecified; B37.9 Candidiasis, unspecified; B96.5 Pseudomonas (aeruginosa) (mallei) (pseudomallei) as the cause of diseases classified elsewhere; K62.89 Other specified diseases of anus and rectum; F41.8 Other specified anxiety disorders
CPT/HCPCS: 31500; 36415; 36430; 36569; 36600; 70450-TC; 70470-TC; 70551-TC; 71045-TC-FY; 71250-TC; 74018-TC-FY; 74176-TC; 76775-TC; 76856-TC; 77001-TC-FY; 80048; 80053; 80061; 80162; 81003; 81015; 82009; 82140; 82150; 82272; 82436; 82550; 82570; 82728; 82746; 82803; 82947; 82962; 83540; 83550; 83690; 83721; 83735; 84100; 84133; 84300; 84460; 84484; 85025; 85027; 85610; 85730; 86078; 86803; 86850; 86900; 86901; 86922; 87040; 87070; 87077; 87086; 87186; 87205; 87324; 87340; 87389; 87449; 87804; 88300-TC; 93005; 93010; 93225; 93226; 93306-TC; 93971-TC; 94002; 94640; 94660; 97161-GP; 99283-25; C1751; G0378; G0480; J1100; J1644; P9038; P9058

== ENCOUNTER 2017-11-05 16:15 | Inpatient (IN) | payer OTHER ==
--- NOTE | 2017-11-05 16:52 | PDOC ---
History of Present Illness - General Chief Complaint: Coffee Ground Emesis Stated Complaint: VOMITING BLOOD Time Seen by Provider: 11/05/17 16:51 - History of Present Illness Initial Comments: 11/05/17 17:38 Ms. Neely is a 62 yo female w/ pmh of multiple acute embolic CVA, acute hypoxia, afib with RVR, metastatic colon ca, chronic renal failure, HTN, DM, HLD , enteral feeding with trach collar discharged yesterday who presents from SNF for nausea with small volume vomiting with coffee ground emesis. Per daughter who is with her this has happened before when she had elevated blood glucose. She also reports that her mother is at her usual level. Allergies: NKDA Past History - Past Medical History Allergies/Adverse Reactions: Allergies Allergy/AdvReac Type Severity Reaction Status Date / Time No Known Drug Allergies Allergy Verified 09/09/17 23:57 Medical Tape Allergy Uncoded 09/09/17 23:56 Home Medications: Ambulatory Orders Atorvastatin Ca [Lipitor] 20 mg PO HS #0 tablet 01/14/14 Apixaban [Eliquis -] 5 mg PO BID #60 tablet 06/24/17 Apixaban [Eliquis -] 5 mg PO BID tablet 11/03/17 Digoxin [Lanoxin -] 0.125 mg PEG Q2D@1000 tablet 11/03/17 Diltiazem [Cardizem -] 90 mg NGT Q6HPO tablet 11/03/17 Divalproex [Depakote -] 500 mg PO BID #30 tablet.ec MDD 2 11/03/17 Insulin (Levemir) [Levemir Vial] 20 units SQ AM ml 11/03/17 Metoprolol Tartrate [Lopressor -] 50 mg NGT BID tablet 11/03/17 Mineral Oil/Petrolatum,White [Artificial Tears Ointment -] 1 applic OU BID tube 11/03/17 Mupirocin Ointment [Bactroban 2% Ointment -] 1 applic TP TID applic 11/03/17 Nystatin Ointment [Mycostatin Ointment -] 1 applic TP BID applic 11/03/17 Quetiapine Fumarate [Seroquel -] 25 mg PO HS tablet 11/03/17 traZODone HCL [Desyrel -] 50 mg PO HS tablet 11/03/17 Anemia: No Asthma: No Cancer: Yes (colon w/ mets to lung) Cardiac Disorders: Yes (AF) CVA: Yes COPD: No CHF: No DVT: No Dementia: No Diabetes: Yes (INSULIN DEPENDENT) Dialysis: No GI Disorders: Yes (COLON CA , 2012, GERD) Disorders: No HTN: Yes Hypercholesterolemia: Yes Kidney Stones: No Liver Disease: No Psychiatric Problems: Yes (depression,anxeity) Seizures: No Thyroid Disease: No Lung CA: Yes - Surgical History Abdominal Surgery: Yes (COLON RESECTION FOR CA) Appendectomy: No Cardiac Surgery: No Cholecystectomy: No Lung Surgery: No Neurologic Surgery: No Orthopedic Surgery: No - Immunization History Immunization Up to Date: Yes - Suicide/Smoking/Psychosocial Hx Smoking Status: Yes Smoking History: Unknown if ever smoked Years of Tobacco Use: 0 Have you smoked in the past 12 months: Yes Number of Cigarettes Smoked Daily: 0 Cigars Per Day: 10 Information on smoking cessation initiated: No 'Breaking Loose' booklet given: 08/14/17 Hx Alcohol Use: No Drug/Substance Use Hx: No Substance Use Type: None Hx Substance Use Treatment: No Review of Systems - Review of Systems Comments:: 11/05/17 18:20 GENERAL/CONSTITUTIONAL: No fever or chills. No weakness. HEAD, EYES, EARS, NOSE AND THROAT: No change in vision. No ear pain or discharge. No sore throat. CARDIOVASCULAR: No chest pain or shortness of breath RESPIRATORY: +Cough productive of thick sputum GASTROINTESTINAL: +Nausea with vomiting of coffee ground emesis. No diarrhea or constipation. GENITOURINARY: No dysuria, frequency, or change in urination. MUSCULOSKELETAL: No joint or muscle swelling or pain. No neck or back pain. SKIN: No rash NEUROLOGIC: No headache, vertigo, loss of consciousness, or change in strength/ sensation. ENDOCRINE: No increased thirst. No abnormal weight change HEMATOLOGIC/LYMPHATIC: No anemia, easy bleeding, or history of blood clots. ALLERGIC/IMMUNOLOGIC: No hives or skin allergy. *Physical Exam - Vital Signs Last Vital Signs Temp Pulse Resp BP Pulse Ox 97.7 F 120 H 22 162/95 100 11/05/17 16:45 11/05/17 16:45 11/05/17 16:45 11/05/17 16:45 11/05/17 16:45 - Physical Exam Comments: 11/05/17 18:23 GENERAL:Patient awake, alert, and oriented. Trach and PEG tube in place; patient in no acute distress HEAD: No signs of trauma, normocephalic, atraumatic EYES: +Left sclera yellow - at baseline per accompanying daughter. PERRLA, EOMI , conjunctiva clear ENT: Auricles normal inspection, hearing grossly normal, nares patent, oropharynx clear without exudates. Moist mucosa NECK: +Trach tube in place - cough productive of sputum. LUNGS: No distress, clear to auscultation bilaterally HEART: Regular rate and rhythm, normal S1 and S2, no murmurs, rubs or gallops, peripheral pulses normal and equal bilaterally. ABDOMEN: +PEG tube in place. Soft, nontender, normoactive bowel sounds. No guarding, no rebound. No masses EXTREMITIES: Normal inspection, Normal range of motion, no edema. No clubbing or cyanosis. NEUROLOGICAL: Cranial nerves II through XII grossly intact. No focal sensorimotor deficits SKIN: Warm, Dry, normal turgor, no rashes or lesions noted. ED Treatment Course - LABORATORY CBC & Chemistry Diagram: 11/05/17 17:35 11/05/17 17:35 Medical Decision Making - Medical Decision Making 11/05/17 18:57 Ms. Neely is a 62 yo female w/ pmh as described who presents w/ coffeee ground emesis. Patient noted to be at baseline per daughter and has known gastric ulcer - fingerstick glucose noted to be above range in ED. 5mg Insulin given with protonix and symptomatic treatment for n/v. 11/05/17 19:21 CMP glucose noted at 433. Repeat fingerstick ordered post fluids/insulin. Hospitalist paged for further inpatient care of gastric ulcer / hypergylcemia. 11/05/17 19:32 Patient signed out to Dr. Nelson for further care. *DC/Admit/Observation/Transfer Diagnosis at time of Disposition: Hyperglycemia, Coffee ground emesis Gastric ulcer Qualifiers: Gastric ulcer chronicity: chronic Gastric ulcer complication status: unspecified whether hemorrhage or perforation present Qualified Code(s): K25.7 - Chronic gastric ulcer without hemorrhage or perforation - Referrals Referrals: Dejan Medina MD [Primary Care Provider] - - Patient Instructions - Post Discharge Activity
--- NOTE | 2017-11-05 17:08 | PDOC ---
Attending Attestation - Resident Resident Name: Jason Lane - ED Attending Attestation I have performed the following: I have examined & evaluated the patient, The case was reviewed & discussed with the resident, I agree w/resident's findings & plan, Exceptions are as noted - HPI HPI: 11/05/17 17:39 Ms Neely is a 62 yo F with a h/o DM, Colon CA with metastatic disease, found to have hydrocephalus, required tracheostomy and PEG placement Pt presents to the ER from the assisted with daughter daughter due to coffee ground emesis Pt has a know ulcer, was given thickened water today Also, per daughter, pt does not tolerate Glucerna and this is what they gave her PT was noted to have nausea and vomiting (+) coffee ground emesis (+) coffee ground fluid from trach Pt denies abdominal pain Reports nausea Per daughter, pt last fever was 1 week ago Pt reports mild frontal head pressure 11/05/17 17:44 11/05/17 18:01 - Physicial Exam PE: 11/05/17 17:[address] with coffee ground liquid Tachycardiac, no murmur Lungs clear Abd soft, non tender, non distended Pt is arousable to verbal stimuli - Medical Decision Making 11/05/17 17:50 62 yo F presenting to the ER with a complaint of coffee ground emesis Pt reports nausea, no abdominal pain No fevers Pt is noted to be tachycardiac and hypertensive DD: Pt presentation is concerning for Gastritis, bleeding ulcer This is particularly concerning in this patient given NOAC Pt FS too high to be read, pt is hyperglycemic - DKA vs. Hyperglycemia Pt has a mild headache, most recent CT head on 11/02 Showed improvement in hydrocephalus ? vomiting due to increased intracranial pressure 11/05/17 18:02
[2017-11-05] MEDS ORDERED: ONDANSETRON 4 MG/2 ML VIAL IVPUSH ONE (17:22)
[2017-11-05] MEDS ORDERED: SODIUM CHLORIDE 1,000 ML IV STA ×2 (17:22→17:43)
[2017-11-05] MEDS ORDERED: PANTOPRAZOLE SODIUM 40 MG VIAL IVPUSH ONE (17:27)
[2017-11-05] MEDS ORDERED: INSULIN REGULAR HUMAN 100 UNITS/ML *VIAL IVPUSH ONE (17:43)
[2017-11-05] MEDS ORDERED: ONDANSETRON 4 MG/2 ML VIAL ONE (17:45)
[2017-11-05] MEDS ORDERED: PANTOPRAZOLE SODIUM 40 MG VIAL ONE (17:45)
[2017-11-05 17:48] LABS: HEMATOCRIT 31.4 % (32.4-45.2); HEMOGLOBIN 10.7 GM/dL (10.7-15.3); MCHC 33.9 g/dl (32.0-36.0); MEAN CELL VOLUME 85.6 fl (80-96); MEAN PLT VOLUME 6.2 fl (7.5-11.1); PLATELET COUNT 320 K/MM3 (134-434); RBC 3.67 M/mm3 (3.60-5.2); WHITE BLOOD COUNT 10.3 K/mm3 (4.0-10.0)
[2017-11-05] MEDS ORDERED: INSULIN REGULAR HUMAN 100 UNITS/ML *VIAL ONE (18:11)
[2017-11-05 18:31] LABS: INR 1.03 (0.82-1.09); PROTHROMBIN TIME (PATIENT) 11.6 SEC (9.98-11.88)
[2017-11-05 18:34] LABS: ACTIVATED PTT 31.2 SECONDS (26.9-34.4)
[2017-11-05 18:38] LABS: OVALOCYTE FEW; PLATELET ESTIMATE ADEQUATE
[2017-11-05 18:59] LABS: ALK PHOS 164 U/L (45-117); ANION GAP 11 (8-16); BILIRUBIN,TOTAL 0.4 mg/dL (0.2-1.0); BLOOD UREA NITROGEN 14 mg/dL (7-18); CALCIUM 8.7 mg/dL (8.5-10.1); CHLORIDE 109 mmol/L (98-107); CO2 23 mmol/L (21-32); POTASSIUM 3.9 mmol/L (3.5-5.1); SGOT/AST 14 U/L (15-37); SGPT/ALT 21 U/L (12-78); SODIUM 143 mmol/L (136-145); TOT PROT 5.8 g/dl (6.4-8.2)
[2017-11-05 19:01] LABS: GLUCOSE,RANDOM 422 mg/dL (74-106)
--- NOTE | 2017-11-05 19:43 | PDOC ---
*Physical Exam - Vital Signs Last Vital Signs Temp Pulse Resp BP Pulse Ox 97.7 F 120 H 22 162/95 100 11/05/17 16:45 11/05/17 16:45 11/05/17 16:45 11/05/17 16:45 11/05/17 16:45 ED Treatment Course - LABORATORY CBC & Chemistry Diagram: 11/05/17 17:35 11/05/17 17:35 - ADDITIONAL ORDERS Additional order review: Laboratory Results 11/05/17 11/05/17 11/05/17 19:00 17:35 17:35 PT with INR 11.60 INR 1.03 PTT (Actin FS) 31.2 Sodium 143 Potassium 3.9 Chloride 109 H Carbon Dioxide 23 Anion Gap 11 BUN 14 Creatinine 1.0 Creat Clearance w eGFR 56.56 Random Glucose 422 H* Calcium 8.7 Total Bilirubin 0.4 AST 14 L ALT 21 Alkaline Phosphatase 164 H Total Protein 5.8 L Albumin 2.0 L Acetone, Qual Positive small 1+ H 11/05/17 17:35 RBC 3.67 MCV 85.6 MCHC 33.9 RDW 18.0 H MPV 6.2 L Neutrophils % No Result Required. Lymphocytes % No Result Required. - Medications Given in the ED: ED Medications Discontinued Medications Generic Name Dose Route Start Last Admin Trade Name Freq PRN Reason Stop Dose Admin Sodium Chloride 1,000 mls @ 1,000 mls/hr 11/05/17 17:43 11/05/17 18:39 Normal Saline - IV 11/05/17 18:42 1,000 mls/hr ASDIR STA Administration Insulin Human Regular 5 units 11/05/17 17:43 11/05/17 18:15 Novolin R Vial *For Ivpush Or Iv Drip Only* IVPUSH 11/05/17 17:44 5 unit ONCE ONE Administration Ondansetron HCl 4 mg 11/05/17 17:22 11/05/17 17:48 Zofran Injection IVPUSH 11/05/17 17:23 4 mg ONCE ONE Administration Pantoprazole Sodium 40 mg 11/05/17 17:27 11/05/17 17:52 Protonix Iv IVPUSH 11/05/17 17:28 40 mg ONCE ONE Administration *DC/Admit/Observation/Transfer Diagnosis at time of Disposition: Hyperglycemia, Coffee ground emesis Gastric ulcer Qualifiers: Gastric ulcer chronicity: chronic Gastric ulcer complication status: unspecified whether hemorrhage or perforation present Qualified Code(s): K25.7 - Chronic gastric ulcer without hemorrhage or perforation - Discharge Dispostion Admit: Yes - Referrals Referrals: Dejan Medina MD [Primary Care Provider] - - Patient Instructions - Post Discharge Activity
[2017-11-05] MEDS ORDERED: INSULIN (NOVOLOG) ASPART 100 UNITS/ML 10ML VIAL ONE (20:56)
[2017-11-05] MEDS ORDERED: INSULIN (NOVOLOG) ASPART 100 UNITS/ML 10ML VIAL SQ ONE (20:57)
[2017-11-05] MEDS ORDERED: DIVALPROEX SODIUM 500 MG TABLET E.C. PO ONE (21:30)
[2017-11-05] MEDS ORDERED: DIGOXIN 0.125 MG TABLET (FP) PO ONE (21:30)
[2017-11-05] MEDS ORDERED: METOPROLOL TARTRATE 50 MG TABLET (FP) PO ONE (21:30)
--- NOTE | 2017-11-05 23:25 | HP ---
CHIEF COMPLAINT: coffee ground emesis PCP: Po Medina HISTORY OF PRESENT ILLNESS: This is a 62 year old female with a past medical history significant for recent hospitalization 09/09-11/04/17 with 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 She was discharged to SNF yesterday and presents today with coffee ground emesis. Daughter reports that she doesn't believe pt has been receiving any insulin or had her BGM checked since arrival to the residential. Daughter also expressing concern that the NH started pt on glucerna for tube feed although she had not tolerated it well in past. Pt reports feeling better at time of exam and denies any pain. No longer with coffee ground emesis. [place] records reviewed. It appears that many of her discharge medications were omitted on [place] admission as there are no medication orders for them: metoprolol, digoxin, diltiazem, depakote, levemir, atorvastatin. There is no indication of any order for BGMs as well. ER course was notable for: (1) Glucose 422 (2) WBC 10.3 Recent Travel: pt denies PAST MEDICAL HISTORY: HTN, HLD, ASHD, Afib, DM, CKD, colon CA with mets to lungs, anxiety, depression , CVA PAST SURGICAL HISTORY: mediport placed 08/18/17, removed 09/10/17 lap incisional hernia repair with lysis of adhesions 08/31/14 colon resection / colostomy 2011 with later colostomy reversal hysterectomy 2000 cholecystectomy 2004 Social History: Smoking: prior to recent hospitalization: 1/2 PPD, none since; h/o 1.5 ppd since age 15 Alcohol: pt denies Drugs: pt denies Family History: mother alive, h/o irreg heart beat, CVA father age 33, suicide 2 brothers, one with HTN Allergies No Known Drug Allergies Allergy (Verified 09/09/17 23:57) Medical Tape Allergy (Uncoded 09/09/17 23:56) HOME MEDICATIONS: 3 Medication Instructions Recorded Atorvastatin Ca [Lipitor] 20 mg PO HS #0 tablet 01/14/14 Apixaban [Eliquis -] 5 mg PO BID #60 tablet 06/24/17 Apixaban [Eliquis -] 5 mg PO BID tablet 11/03/17 Digoxin [Lanoxin -] 0.125 mg PEG Q2D@1000 tablet 11/03/17 Diltiazem [Cardizem -] 90 mg NGT Q6HPO tablet 11/03/17 Divalproex [Depakote -] 500 mg PO BID #30 tablet.ec MDD 2 11/03/17 Insulin (Levemir) [Levemir Vial] 20 units SQ AM ml 11/03/17 Metoprolol Tartrate [Lopressor -] 50 mg NGT BID tablet 11/03/17 Mineral Oil/Petrolatum,White 1 applic OU BID tube 11/03/17 [Artificial Tears Ointment -] Mupirocin Ointment [Bactroban 2% 1 applic TP TID applic 11/03/17 Ointment -] Nystatin Ointment [Mycostatin 1 applic TP BID applic 11/03/17 Ointment -] Quetiapine Fumarate [Seroquel -] 25 mg PO HS tablet 11/03/17 traZODone HCL [Desyrel -] 50 mg PO HS tablet 11/03/17 REVIEW OF SYSTEMS CONSTITUTIONAL: Absent: fever, chills, diaphoresis, generalized weakness, malaise, loss of appetite, weight change HEENT: Absent: rhinorrhea, nasal congestion, throat pain, throat swelling, difficulty swallowing, mouth swelling, ear pain, eye pain, visual changes CARDIOVASCULAR: Absent: chest pain, syncope, palpitations, irregular heart rate, lightheadedness , peripheral edema RESPIRATORY: Absent: cough, shortness of breath, dyspnea with exertion, orthopnea, wheezing, stridor, hemoptysis GASTROINTESTINAL: Present: coffee ground emesis Absent: abdominal pain, abdominal distension, diarrhea, constipation, melena, hematochezia GENITOURINARY: Absent: dysuria, frequency, urgency, hesitancy, hematuria, flank pain, genital pain MUSCULOSKELETAL: Absent: myalgia, arthralgia, joint swelling, back pain, neck pain SKIN: Absent: rash, itching, pallor HEMATOLOGIC/IMMUNOLOGIC: Absent: easy bleeding, easy bruising, lymphadenopathy, frequent infections ENDOCRINE: Absent: unexplained weight gain, unexplained weight loss, heat intolerance, cold intolerance NEUROLOGIC: Absent: headache, focal weakness or paresthesias, dizziness, unsteady gait, seizure, mental status changes, bladder or bowel incontinence PSYCHIATRIC: Absent: anxiety, depression, suicidal or homicidal ideation, hallucinations. PHYSICAL EXAMINATION Vital Signs - 24 hr 3 11/05/17 16:45 Temperature 97.7 F Pulse Rate 120 H Respiratory 22 Rate Blood Pressure 162/95 O2 Sat by Pulse 100 Oximetry (%) GENERAL: Awake, alert, and oriented to person, place, in no acute distress. HEAD: Normal with no signs of trauma. EYES: Pupils unequal, R>L, both round and reactive to light, extraocular movements intact, sclera anicteric, conjunctiva clear. No lid lag. EARS, NOSE, THROAT: Ears normal, nares patent, oropharynx clear without exudates. Moist mucous membranes. NECK: Normal range of motion, supple without lymphadenopathy, JVD, or masses. LUNGS: Breath sounds equal, clear to auscultation bilaterally. No wheezes, and no crackles. No accessory muscle use. HEART: Irregular rate and rhythm, normal S1 and S2 without murmur, rub or gallop. ABDOMEN: Soft, nontender, not distended, normoactive bowel sounds, no guarding, no rebound, no masses. No hepatomegaly or splenomegaly. MUSCULOSKELETAL: Normal range of motion at all joints. No bony deformities or tenderness. No CVA tenderness. UPPER EXTREMITIES: 2+ pulses, warm, well-perfused. No cyanosis. No clubbing. No peripheral edema. LOWER EXTREMITIES: 2+ pulses, warm, well-perfused. No calf tenderness. No peripheral edema. NEUROLOGICAL: Cranial nerves II-XII intact. Normal speech. Normal gait. PSYCHIATRIC: Cooperative. Good eye contact. Appropriate mood and affect. SKIN: Warm, dry, normal turgor, no rashes or lesions noted, normal capillary refill. Laboratory Results - last 24 hr 3 11/05/17 11/05/17 11/05/17 11/05/17 17:35 17:35 17:35 19:00 20:45 WBC 10.3 H D RBC 3.67 Hgb 10.7 D Hct 31.4 L MCV 85.6 MCH 29.0 MCHC 33.9 RDW 18.0 H Plt Count 320 MPV 6.2 L Total Counted 100 Neutrophils % No Result Required. Neutrophils % (Manual) 79.0 D Band Neutrophils % 5.0 Lymphocytes % No Result Required. Lymphocytes % (Manual) 8.0 D Monocytes % (Manual) 8 Platelet Estimate Adequate Platelet Comment No clumping noted Ovalocytes Few PT with INR 11.60 INR 1.03 PTT (Actin FS) 31.2 Sodium 143 Potassium 3.9 Chloride 109 H Carbon Dioxide 23 Anion Gap 11 BUN 14 Creatinine 1.0 Creat Clearance w eGFR 56.56 POC Glucometer [id number] Random Glucose 422 H* Calcium 8.7 Total Bilirubin 0.4 AST 14 L ALT 21 Alkaline Phosphatase 164 H Total Protein 5.8 L Albumin 2.0 L Acetone, Qual Positive small 1+ H Blood Type O POSITIVE Antibody Screen Negative ECG Sinus tach vent rate 116, QTC 391 poor baseline, difficult to interpret ST & T WAVE ABNORMALITY, CONSIDER INFERIOR ISCHEMIA ST & T WAVE ABNORMALITY, CONSIDER ANTEROLATERAL ISCHEMIA ABNORMAL ECG WHEN COMPARED WITH ECG OF 10/29/17 no significant change was found Radiology Reports FUA IMPRESSION: Limited study with no definite evidence of acute pathology. Reported By: Terell Spring MD 11/05/172153 CXR single view IMPRESSION: Cardiomegaly and right lung mass. Reported By: Terell Spring MD 11/05/17 1677 ASSESSMENT/PLAN: 62yF with PMH HTN, HLD, ASHD, Afib, DM, CKD, colon CA with mets to lungs, anxiety, depression, recent large CVA presented to the ED with coffee ground emesis which has now resolved. Coffee ground emesis - r/o GI bleed - trend CBCs - protonix 40mg IVP given, cont for now - consider GI consult DM wth Hyperglycemia - + acetone in blood, but no anion gap, will defer insulin drip unless unable to manage with novolog sc - regular insulin 5u given IVP in ED, repeat BGM after 350 - Novolog 6u x 1 now - BGM AC/HS with novolog SS HTN/Afib - stat dose digoxin, diltiazem, metoprolol now as pt has not received since yesterday am - hold eliquis today due to coffee ground emesis, restart in am if no further emesis HLD - cont home atorvastatin recent CVA - cont depakote for headaches - restart eliquis JAMES - control afib CKD - Cr at baseline, cont to monitor anxiety/depression - cont seroquel and trazodone DVT PPX - restart home eliquis JAMES FEN - hold IVF, does not appear hypovolemic - BMP jayla - Hold GT feed until reassess by MD tomorrow Dispo: Pt currently requires further observation for management of her emergent condition. Visit type - Emergency Visit Emergency Visit: Yes ED Registration Date: 11/05/17 Care time: The patient presented to the Emergency Department on the above date and was hospitalized for further evaluation of their emergent condition. - New Patient This patient is new to me today: Yes Date on this admission: 11/05/17 - Critical Care Critical Care patient: No Hospitalist Screening - Colonoscopy Questionnaire Colonoscopy Questionnaire: Colonoscopy Questionnaire - Patient: 50 - 75 years old and never had a screening colonoscopy: No History of colon or rectal polyps, or CA: Yes History of IBD, Crohn's disease or UC: No History of abdominal radiation therapy as a child: No - Relative: 1 with colon or rectal CA, or polyps at age 60 or younger: No Colon or rectal CA diagnosed at age 45 or younger: No Multiple relatives with colon or rectal CA: No - Outcome: Screening Result: Positive Screen
[2017-11-05] MEDS ORDERED: METOPROLOL TARTRATE 50 MG TABLET (FP) ONE (23:31)
[2017-11-05] MEDS ORDERED: DIGOXIN 0.125 MG TABLET (FP) ONE (23:31)
[2017-11-05] MEDS ORDERED: DIVALPROEX SODIUM 125 MG TABLET E.C. (FP) ONE (23:32)
[2017-11-06] MEDS ORDERED: dilTIAZem HCL 30 MG TABLET (FP) PO SCH
[2017-11-06] MEDS ORDERED: dilTIAZem HCL 60 MG TABLET (FP) ONE ×3 (00:35→06:11)
[2017-11-06] MEDS ORDERED: dilTIAZem HCL 30 MG TABLET (FP) ONE ×3 (00:35→06:11)
[2017-11-06] MEDS: dilTIAZem HCL 30 MG TABLET (FP) GT SCH ×4 (01:13→18:09)
[2017-11-06] MEDS ORDERED: ACETAMINOPHEN 650 MG/20.3 ML ORAL SOLUTION (CUPS) PO ONE ×2 (02:14→12:14)
[2017-11-06] MEDS ORDERED: INSULIN (NOVOLOG) ASPART 100 UNITS/ML 10ML VIAL SQ ONE (02:52)
[2017-11-06] MEDS ORDERED: INSULIN REGULAR HUMAN 100 UNITS/ML *VIAL ONE (03:13)
[2017-11-06 03:54] LABS: URINE APPEARANCE SLCLOUDY; URINE BILIRUBIN NEGATIVE (NEGATIVE); URINE BLOOD NEGATIVE (NEGATIVE); URINE COLOR YELLOW; URINE GLUCOSE (UA) 3+ (NEGATIVE); URINE KETONE 1+ (NEGATIVE); URINE LEUK ESTERASE TRACE (NEGATIVE); URINE NITRITE NEGATIVE (NEGATIVE); URINE UROBILINOGEN NEGATIVE mg/dL (0.2-1.0)
[2017-11-06 03:56] LABS: URINE PROTEIN 3+ (NEGATIVE)
[2017-11-06 04:00] LABS: EPI CELLS RARE /HPF (FEW); URINE BACTERIA FEW /hpf (NONE SEEN); URINE MUCUS RARE
[2017-11-06] MEDS ORDERED: INSULIN DETEMIR 100 UNITS/ML MDV SQ ONE (06:20)
[2017-11-06] MEDS ORDERED: INSULIN DETEMIR 100 UNITS/ML MDV SQ SCH (07:00)
[2017-11-06] MEDS: INSULIN SLIDING SCALE (NOVOLOG) 1 VIAL SQ SCH ×3 (07:05→22:46)
[2017-11-06 07:22] LABS: HEMATOCRIT 28.7 % (32.4-45.2); HEMOGLOBIN 9.8 GM/dL (10.7-15.3); MCH 29.4 pg (25.7-33.7); MCHC 34.2 g/dl (32.0-36.0); MEAN CELL VOLUME 85.9 fl (80-96); MEAN PLT VOLUME 6.2 fl (7.5-11.1); PLATELET COUNT 291 K/MM3 (134-434); RBC 3.34 M/mm3 (3.60-5.2); WHITE BLOOD COUNT 7.8 K/mm3 (4.0-10.0)
[2017-11-06 07:48] LABS: ANION GAP 9 (8-16); BLOOD UREA NITROGEN 13 mg/dL (7-18); CALCIUM 8.1 mg/dL (8.5-10.1); CHLORIDE 114 mmol/L (98-107); CO2 23 mmol/L (21-32); CREATININE 0.9 mg/dL (0.55-1.02); GLUCOSE,RANDOM 213 mg/dL (74-106); MAGNESIUM 1.6 mg/dL (1.8-2.4); PHOSPHOROUS 2.8 mg/dL (2.5-4.9); SODIUM 146 mmol/L (136-145)
[2017-11-06 09:07] LABS: PLATELET ESTIMATE NORMAL
[2017-11-06] MEDS: METOPROLOL TARTRATE 50 MG TABLET (FP) GT SCH ×2 (09:58→22:46)
[2017-11-06] MEDS ORDERED: DIVALPROEX SODIUM 500 MG TABLET E.C. PO SCH (10:00)
--- NOTE | 2017-11-06 10:56 | PN ---
Progress Note, Physician Chief Complaint: patient admitted for coffee ground emesis was recently discharged from hospital in bed able to communicate with me by mouthing words and with her hands- says she is that feeling that great - Current Medication List Current Medications: Active Medications Artificial Tears (Artificial Tears Ointment -) 1 applic OU BID [facility] Atorvastatin Calcium (Lipitor -) 20 mg GT HS [facility] Digoxin (Lanoxin -) 0.125 mg PEG Q2D@1000 [facility] Diltiazem HCl (Cardizem -) 90 mg GT Q6HPO [facility] Last Admin: 11/06/17 06:38 Dose: 90 mg Divalproex Sodium (Depakote -) 500 mg PO BID [facility] Last Admin: 11/06/17 09:58 Dose: 500 mg Potassium Chloride 10 meq/ (Sodium Chloride) 105 mls @ 105 mls/hr IVPB Q60M [facility] Stop: 11/06/17 13:59 Insulin Aspart (Novolog Vial Sliding Scale -) 1 vial SQ HS [facility] PRN Reason: Protocol Insulin Aspart (Novolog Vial Sliding Scale -) 1 vial SQ TIDAC [facility] PRN Reason: Protocol Last Admin: 11/06/17 07:05 Dose: 4 unit Insulin Detemir (Levemir Vial) 20 units SQ AM [facility] Last Admin: 11/06/17 07:05 Dose: 20 unit Magnesium Sulfate/Dextrose (Magnesium 1gm/D5w -) 1 gm IVPB ONCE ONE Stop: 11/06/17 11:01 Metoprolol Tartrate (Lopressor -) 50 mg GT BID [facility] Last Admin: 11/06/17 09:58 Dose: 50 mg Quetiapine Fumarate (Seroquel -) 25 mg GT HS [facility] Trazodone HCl (Desyrel -) 50 mg PEG HS [facility] - Objective Vital Signs: Vital Signs Temperature 98.0 F 11/06/17 07:49 Pulse Rate 70 11/06/17 10:42 Respiratory Rate 21 11/06/17 10:42 Blood Pressure 156/79 11/06/17 10:42 O2 Sat by Pulse Oximetry (%) 100 11/06/17 10:42 Constitutional: Yes: Calm Neck: Yes: Other (trach) Cardiovascular: Yes: S1, S2 Labs: CBC, BMP 11/06/17 06:45 11/06/17 06:45 INR, PTT INR 1.03 (0.82-1.09) 11/05/17 17:35 Problem List - Problems (1) Coffee ground emesis Assessment/Plan: tube feeds held iv protonix abdominal xray noted gi dr bermeo slight drop in h/h Code(s): K92.0 - HEMATEMESIS (2) Hypokalemia Assessment/Plan: iv kcl ordered will recheck BMP later today Code(s): E87.6 - HYPOKALEMIA (3) Gastric ulcer Assessment/Plan: h/o ulcer iv protonix Code(s): K25.9 - GASTRIC ULCER, UNSP ACUTE OR CHRONIC, W/O HEMOR OR PERF Qualifiers: Gastric ulcer chronicity: chronic Gastric ulcer complication status: unspecified whether hemorrhage or perforation present Qualified Code(s): K25.7 - Chronic gastric ulcer without hemorrhage or perforation (4) Hypomagnesemia Assessment/Plan: repleted Code(s): E83.42 - HYPOMAGNESEMIA (5) Atrial fibrillation Assessment/Plan: hold eliquis metoprolol,digoxin and diltiazem Code(s): I48.91 - UNSPECIFIED ATRIAL FIBRILLATION (6) CVA (cerebral vascular accident) Assessment/Plan: h/o of multple embolic strokes on statin hold eliquis given coffee ground emesis Code(s): I63.9 - CEREBRAL INFARCTION, UNSPECIFIED Qualifiers: Laterality of affected vessel: unspecified (7) Diabetes Assessment/Plan: bgm noted on levemir currently tube feeds on hold Code(s): E11.9 - TYPE 2 DIABETES MELLITUS WITHOUT COMPLICATIONS Qualifiers: Diabetes mellitus type: type 2 (8) Respiratory failure Assessment/Plan: s/p trach on trach collar keep HOB elevated 45 degrees Code(s): J96.90 - RESPIRATORY FAILURE, UNSP, UNSP W HYPOXIA OR HYPERCAPNIA
[2017-11-06] MEDS ORDERED: POTASSIUM CHLORIDE 10 MEQ in SODIUM CHLORIDE 100 ML IVPB SCH (11:00)
[2017-11-06] MEDS ORDERED: MAGNESIUM 1GM/D5W 100ML - 100 ML IVPB IVPB ONE (11:00)
[2017-11-06] MEDS: PANTOPRAZOLE SODIUM 40 MG VIAL IVPUSH SCH ×2 (12:00→22:47)
[2017-11-06] MEDS ORDERED: MAGNESIUM SULF 50% (8.12 MEQ/2 ML-1 GM VIAL) ONE (12:10)
--- NOTE | 2017-11-06 12:17 | CON.GI ---
Consult Consult Specialty:: GI Reason for Consultation:: readmited with vomiting - History of Present Illness History of Present Illness: Discharged yesterday and readmitted this am for vomiting. Per daughter, the pt didn't receive her usual medications including hypoglycemics this am. Blood glucose >400, acetone positive on admission. Emesis was reported as coffee- ground. Per daughter, the patient is in her usual state and there are no reports of hematemeis, hematochzia, melena, epigastric pain. Pt indicates she has a headache and mild nausea. the daughter reports that it's not unusial for her mother to vomit in settings of very high blood glucose. A gastric lavage via G-tube with 500 cc sterile water revealed clear return. Hg on admission 1 g/dl less than on discharge, BUN normal. - History Source History Provided By: Patient, Family Member, Medical Record - Past Medical History Cardio/Vascular: Yes: AFIB, HTN, Hyperlipdemia Gastrointestinal: Yes: Cancer (COLON), GERD Psych: Yes: Anxiety Endocrine: Yes: Diabetes Mellitus (ON INSULIN PUMP) - Past Surgical History Past Surgical History: Yes: Colectomy (2 YRS AGO COLON CA), Hernia Repair ( icisional) - Alcohol/Substance Use Hx Alcohol Use: No - Smoking History Smoking history: Unknown if ever smoked Have you smoked in the past 12 months: Yes Aproximately how many cigarettes per day: 0 - Social History Usual Living Arrangement: With Spouse ADL: Independent History of Recent Travel: No Home Medications - Allergies Allergies/Adverse Reactions: Allergies Allergy/AdvReac Type Severity Reaction Status Date / Time No Known Drug Allergies Allergy Verified 11/06/17 00:24 Medical Tape Allergy Uncoded 11/06/17 00:24 - Home Medications Home Medications: Ambulatory Orders Atorvastatin Ca [Lipitor] 20 mg PO HS #0 tablet 01/14/14 Apixaban [Eliquis -] 5 mg PO BID tablet 11/03/17 Digoxin [Lanoxin -] 0.125 mg PEG Q2D@1000 tablet 11/03/17 Diltiazem [Cardizem -] 90 mg NGT Q6HPO tablet 11/03/17 Divalproex [Depakote -] 500 mg PO BID #30 tablet.ec MDD 2 11/03/17 Insulin (Levemir) [Levemir Vial] 20 units SQ AM ml 11/03/17 Metoprolol Tartrate [Lopressor -] 50 mg NGT BID tablet 11/03/17 Mineral Oil/Petrolatum,White [Artificial Tears Ointment -] 1 applic OU BID tube 11/03/17 Mupirocin Ointment [Bactroban 2% Ointment -] 1 applic TP TID applic 11/03/17 Nystatin Ointment [Mycostatin Ointment -] 1 applic TP BID applic 11/03/17 Quetiapine Fumarate [Seroquel -] 25 mg PO HS tablet 11/03/17 traZODone HCL [Desyrel -] 50 mg PO HS tablet 11/03/17 Family Disease History - Family Disease History Family History: Unremarkable Review of Systems Findings/Remarks: as per HPI, H&P Physical Exam-GI Vital Signs: Vital Signs Temperature 98.0 F 11/06/17 07:49 Pulse Rate 70 11/06/17 10:42 Respiratory Rate 21 11/06/17 10:42 Blood Pressure 156/79 11/06/17 10:42 O2 Sat by Pulse Oximetry (%) 100 11/06/17 10:42 Constitutional: Yes: No Distress, Calm Eyes: Yes: Conjunctiva Clear Cardiovascular: No: Tachycardia Respiratory: Yes: Regular Neurological: Yes: Alert Labs: CBC, BMP 11/06/17 06:45 11/06/17 06:45 INR, PTT INR 1.03 (0.82-1.09) 11/05/17 17:35 CBCD WBC 7.8 K/mm3 (4.0-10.0) 11/06/17 06:45 RBC 3.34 M/mm3 (3.60-5.2) L 11/06/17 06:45 Hgb 9.8 GM/dL (10.7-15.3) L 11/06/17 06:45 Hct 28.7 % (32.4-45.2) L 11/06/17 06:45 MCV 85.9 fl (80-96) 11/06/17 06:45 MCHC 34.2 g/dl (32.0-36.0) 11/06/17 06:45 RDW 18.0 % (11.6-15.6) H 11/06/17 06:45 Plt Count 291 K/MM3 (134-434) 11/06/17 06:45 MPV 6.2 fl (7.5-11.1) L 11/06/17 06:45 CMP Sodium 146 mmol/L (136-145) H 11/06/17 06:45 Potassium 3.0 mmol/L (3.5-5.1) L 11/06/17 06:45 Chloride 114 mmol/L (98-107) H 11/06/17 06:45 Carbon Dioxide 23 mmol/L (21-32) 11/06/17 06:45 Anion Gap 9 (8-16) 11/06/17 06:45 BUN 13 mg/dL (7-18) 11/06/17 06:45 Creatinine 0.9 mg/dL (0.55-1.02) 11/06/17 06:45 Creat Clearance w eGFR 56.56 (>60) 11/05/17 17:35 Calcium 8.1 mg/dL (8.5-10.1) L 11/06/17 06:45 Total Bilirubin 0.4 mg/dL (0.2-1.0) 11/05/17 17:35 AST 14 U/L (15-37) L 11/05/17 17:35 ALT 21 U/L (12-78) 11/05/17 17:35 Alkaline Phosphatase 164 U/L (45-117) H 11/05/17 17:35 Total Protein 5.8 g/dl (6.4-8.2) L 11/05/17 17:35 Albumin 2.0 g/dl (3.4-5.0) L 11/05/17 17:35 Problem List - Problems (1) Coffee ground emesis Code(s): K92.0 - HEMATEMESIS Assessment/Plan Emessis in setting of hyperglucemia. Suspect transient gastroparesis. Doubt active, or recent GI bleeding Correct hyperglycemia Aspiration precautions will continue to monitor closely for signs of bleeding. Plan EGD if the signs present. Discussed with pt's daughter
[2017-11-06] MEDS ORDERED: ACETAMINOPHEN 325 MG TABLET (FP) ONE (12:58)
--- NOTE | 2017-11-06 14:23 | CON.PULM ---
Consult Consult Specialty:: PULMONARY Referred by:: Dr. Arciniega Reason for Consultation:: chronic respiratory failure - History of Present Illness Chief Complaint: hyperglycemia History of Present Illness: 62yo female with h/o HTN, hyperlipidemia, CAD, CKD, metastatic colon ca to lung , atrial fibrillation, recent prolonged hospitalization for multiple embolic strokes complicated by prolonged respiratory failure requiring tracheostomy/PEG placement who was sent from the group home with coffee ground emesis. History obtained from daughter at bedside. States that she had not been getting any of her medications, was found to be severely hyperglycemic and had an episode of coffee ground emesis. She has been on trach collar for the past 2 weeks, not requiring mechanical ventilation. No solid foods by mouth yet but has been getting ice chips and sips of water. She has been sitting up in bed working with physical therapy, has not been out of bed. - History Source History Provided By: Patient, Family Member, Medical Record Limitations to Obtaining History: Clinical Condition - Past Medical History Cardio/Vascular: Yes: AFIB, HTN, Hyperlipdemia Gastrointestinal: Yes: Cancer (COLON), GERD Psych: Yes: Anxiety Endocrine: Yes: Diabetes Mellitus (ON INSULIN PUMP) - Past Surgical History Past Surgical History: Yes: Colectomy (2 YRS AGO COLON CA), Hernia Repair ( icisional) - Alcohol/Substance Use Hx Alcohol Use: No - Smoking History Smoking history: Unknown if ever smoked Have you smoked in the past 12 months: Yes Aproximately how many cigarettes per day: 0 - Social History Usual Living Arrangement: With Spouse ADL: Independent History of Recent Travel: No Home Medications - Allergies Allergies/Adverse Reactions: Allergies Allergy/AdvReac Type Severity Reaction Status Date / Time No Known Drug Allergies Allergy Verified 11/06/17 00:24 Medical Tape Allergy Uncoded 11/06/17 00:24 - Home Medications Home Medications: Ambulatory Orders Atorvastatin Ca [Lipitor] 20 mg PO HS #0 tablet 01/14/14 Apixaban [Eliquis -] 5 mg PO BID tablet 11/03/17 Digoxin [Lanoxin -] 0.125 mg PEG Q2D@1000 tablet 11/03/17 Diltiazem [Cardizem -] 90 mg NGT Q6HPO tablet 11/03/17 Divalproex [Depakote -] 500 mg PO BID #30 tablet.ec MDD 2 11/03/17 Insulin (Levemir) [Levemir Vial] 20 units SQ AM ml 11/03/17 Metoprolol Tartrate [Lopressor -] 50 mg NGT BID tablet 11/03/17 Mineral Oil/Petrolatum,White [Artificial Tears Ointment -] 1 applic OU BID tube 11/03/17 Mupirocin Ointment [Bactroban 2% Ointment -] 1 applic TP TID applic 11/03/17 Nystatin Ointment [Mycostatin Ointment -] 1 applic TP BID applic 11/03/17 Quetiapine Fumarate [Seroquel -] 25 mg PO HS tablet 11/03/17 traZODone HCL [Desyrel -] 50 mg PO HS tablet 11/03/17 Review of Systems Unable to obtain ROS, reason: pt trached Physical Exam Vital Sings: Vital Signs Temperature 98.3 F 11/06/17 12:43 Pulse Rate 76 11/06/17 12:43 Respiratory Rate 16 11/06/17 12:43 Blood Pressure 151/74 11/06/17 12:43 O2 Sat by Pulse Oximetry (%) 100 11/06/17 12:43 Constitutional: Yes: Other (somnolent) Eyes: Yes: Conjunctiva Clear, EOM Intact HENT: Yes: Atraumatic, Normocephalic Neck: Yes: Supple, Trachea Midline Cardiovascular: Yes: Regular Rate and Rhythm Respiratory: Yes: Rhonchi, Wheezes ...Clubbing: No Gastrointestinal: Yes: Normal Bowel Sounds, Soft. No: Tenderness Edema: No Neurological: Yes: Alert, Oriented Labs: CBC, BMP 11/06/17 06:45 11/06/17 06:45 Imaging - Results Chest X-ray: Report Reviewed, Image Reviewed (cardiomegaly, RLL mass) Problem List - Problems (1) Coffee ground emesis Code(s): K92.0 - HEMATEMESIS (2) Hyperglycemia Code(s): R73.9 - HYPERGLYCEMIA, UNSPECIFIED (3) Chronic respiratory failure Code(s): J96.10 - CHRONIC RESPIRATORY FAILURE, UNSP W HYPOXIA OR HYPERCAPNIA (4) Atrial fibrillation Code(s): I48.91 - UNSPECIFIED ATRIAL FIBRILLATION (5) Diabetes Code(s): E11.9 - TYPE 2 DIABETES MELLITUS WITHOUT COMPLICATIONS Qualifiers: Diabetes mellitus type: type 2 (6) HLD (hyperlipidemia) Code(s): E78.5 - HYPERLIPIDEMIA, UNSPECIFIED (7) HTN (hypertension) Code(s): I10 - ESSENTIAL (PRIMARY) HYPERTENSION (8) Lung mass Code(s): R91.8 - OTHER NONSPECIFIC ABNORMAL FINDING OF LUNG FIELD (9) Metastatic colorectal cancer Code(s): C78.5 - SECONDARY MALIGNANT NEOPLASM OF LARGE INTESTINE AND RECTUM Assessment/Plan Coffee Ground Emesis likely from hyperglycemia Chronic Respiratory Failure s/p tracheostomy Metastatic Colon Ca to lung Atrial Fibrillation h/o CVA HTN DM - glucose control - IVF - protonix - monitor H/H - aspiration precautions - continue trach collar for now - can attempt PMV in AM - inhaled bronchodilators - O2 to keep SpO2 >90% - rate controlled - continue anticoagulation when ok with GI - DVT prophylaxis - family requesting placement at [facility] Thank you for this consult Daniel Shelley MD
[2017-11-06 14:31] VITALS: BMI 30.7
--- NOTE | 2017-11-06 15:32 | CON.CARD ---
Consult Consult Specialty:: Cardiology consult Reason for Consultation:: AFIB with coffee ground emesis - History of Present Illness Chief Complaint: Coffee ground emesis History of Present Illness: This is a 62 year old female w/ pmh of multiple acute embolic CVA, acute hypoxia , afib with RVR, metastatic colon ca, chronic renal failure, HTN, DM, HLD, enteral feeding with trach collar. She was recently sent from [facility] for nausea with small volume vomiting with coffee ground emesis. - Past Medical History Cardio/Vascular: Yes: AFIB, HTN, Hyperlipdemia Gastrointestinal: Yes: Cancer (COLON), GERD Psych: Yes: Anxiety Endocrine: Yes: Diabetes Mellitus (ON INSULIN PUMP) - Past Surgical History Past Surgical History: Yes: Colectomy (2 YRS AGO COLON CA), Hernia Repair ( icisional) - Alcohol/Substance Use Hx Alcohol Use: No - Smoking History Smoking history: Unknown if ever smoked Have you smoked in the past 12 months: Yes Aproximately how many cigarettes per day: 0 - Social History Usual Living Arrangement: With Spouse ADL: Independent History of Recent Travel: No Home Medications - Allergies Allergies/Adverse Reactions: Allergies Allergy/AdvReac Type Severity Reaction Status Date / Time No Known Drug Allergies Allergy Verified 11/06/17 00:24 Medical Tape Allergy Uncoded 11/06/17 00:24 - Home Medications Home Medications: Ambulatory Orders Atorvastatin Ca [Lipitor] 20 mg PO HS #0 tablet 01/14/14 Apixaban [Eliquis -] 5 mg PO BID tablet 11/03/17 Digoxin [Lanoxin -] 0.125 mg PEG Q2D@1000 tablet 11/03/17 Diltiazem [Cardizem -] 90 mg NGT Q6HPO tablet 11/03/17 Divalproex [Depakote -] 500 mg PO BID #30 tablet.ec MDD 2 11/03/17 Insulin (Levemir) [Levemir Vial] 20 units SQ AM ml 11/03/17 Metoprolol Tartrate [Lopressor -] 50 mg NGT BID tablet 11/03/17 Mineral Oil/Petrolatum,White [Artificial Tears Ointment -] 1 applic OU BID tube 11/03/17 Mupirocin Ointment [Bactroban 2% Ointment -] 1 applic TP TID applic 11/03/17 Nystatin Ointment [Mycostatin Ointment -] 1 applic TP BID applic 11/03/17 Quetiapine Fumarate [Seroquel -] 25 mg PO HS tablet 11/03/17 traZODone HCL [Desyrel -] 50 mg PO HS tablet 11/03/17 Review of Systems Findings/Remarks: Asd per HPI Vital Signs: Vital Signs Temperature 98.3 F 11/06/17 12:43 Pulse Rate 76 11/06/17 12:43 Respiratory Rate 16 11/06/17 12:43 Blood Pressure 151/74 11/06/17 12:43 O2 Sat by Pulse Oximetry (%) 100 11/06/17 12:43 Constitutional: Yes: No Distress (Trach and PEG) HENT: Yes: WNL Neck: Yes: WNL Respiratory: Yes: CTA Bilaterally Gastrointestinal: Yes: Soft - Other Data Labs, Other Data: CBC, BMP 11/06/17 06:45 11/06/17 06:45 INR, PTT INR 1.03 (0.82-1.09) 11/05/17 17:35 Assessment/Plan [facility] *LIVE* General Medical Patient Name: ROSALIND LAROSE Date of : 1955 Patient Status: Observation Attending Provider: Nathalia Arciniega Date: 11/05/17 16:52 Initialization Date: 11/05/17 16:52 History of Present Illness - General Chief Complaint: Coffee Ground Emesis Stated Complaint: VOMITING BLOOD Time Seen by Provider: 11/05/17 16:51 - History of Present Illness Initial Comments: 11/05/17 17:38 Ms. Larose is a Allergies: NKDA Past History - Past Medical History Allergies/Adverse Reactions: Allergies Allergy/AdvReac Type Severity Reaction Status Date / Time No Known Drug Allergies Allergy Verified 09/09/17 23:57 Medical Tape Allergy Uncoded 09/09/17 23:56 Home Medications: Ambulatory Orders Atorvastatin Ca [Lipitor] 20 mg PO HS #0 tablet 01/14/14 Apixaban [Eliquis -] 5 mg PO BID #60 tablet 06/24/17 Apixaban [Eliquis -] 5 mg PO BID tablet 11/03/17 Digoxin [Lanoxin -] 0.125 mg PEG Q2D@1000 tablet 11/03/17 Diltiazem [Cardizem -] 90 mg NGT Q6HPO tablet 11/03/17 Divalproex [Depakote -] 500 mg PO BID #30 tablet.ec MDD 2 11/03/17 Insulin (Levemir) [Levemir Vial] 20 units SQ AM ml 11/03/17 Metoprolol Tartrate [Lopressor -] 50 mg NGT BID tablet 11/03/17 Mineral Oil/Petrolatum,White [Artificial Tears Ointment -] 1 applic OU BID tube 11/03/17 Mupirocin Ointment [Bactroban 2% Ointment -] 1 applic TP TID applic 11/03/17 Nystatin Ointment [Mycostatin Ointment -] 1 applic TP BID applic 11/03/17 Quetiapine Fumarate [Seroquel -] 25 mg PO HS tablet 11/03/17 traZODone HCL [Desyrel -] 50 mg PO HS tablet 11/03/17 Anemia: No Asthma: No Cancer: Yes (colon w/ mets to lung) Cardiac Disorders: Yes (AF) CVA: Yes COPD: No CHF: No DVT: No Dementia: No Diabetes: Yes (INSULIN DEPENDENT) Dialysis: No GI Disorders: Yes (COLON CA , 2012, GERD) Disorders: No HTN: Yes Hypercholesterolemia: Yes Kidney Stones: No Liver Disease: No Psychiatric Problems: Yes (depression,anxeity) Seizures: No Thyroid Disease: No Lung CA: Yes - Surgical History Abdominal Surgery: Yes (COLON RESECTION FOR CA) Appendectomy: No Cardiac Surgery: No Cholecystectomy: No Lung Surgery: No Neurologic Surgery: No Orthopedic Surgery: No - Immunization History Immunization Up to Date: Yes - Suicide/Smoking/Psychosocial Hx Smoking Status: Yes Smoking History: Unknown if ever smoked Years of Tobacco Use: 0 Have you smoked in the past 12 months: Yes Number of Cigarettes Smoked Daily: 0 Cigars Per Day: 10 Information on smoking cessation initiated: No 'Breaking Loose' booklet given: 08/14/17 Hx Alcohol Use: No Drug/Substance Use Hx: No Substance Use Type: None Hx Substance Use Treatment: No Review of Systems - Review of Systems Comments:: 11/05/17 18:20 GENERAL/CONSTITUTIONAL: No fever or chills. No weakness. HEAD, EYES, EARS, NOSE AND THROAT: No change in vision. No ear pain or discharge. No sore throat. CARDIOVASCULAR: No chest pain or shortness of breath RESPIRATORY: +Cough productive of thick sputum GASTROINTESTINAL: +Nausea with vomiting of coffee ground emesis. No diarrhea or constipation. GENITOURINARY: No dysuria, frequency, or change in urination. MUSCULOSKELETAL: No joint or muscle swelling or pain. No neck or back pain. SKIN: No rash NEUROLOGIC: No headache, vertigo, loss of consciousness, or change in strength/ sensation. ENDOCRINE: No increased thirst. No abnormal weight change HEMATOLOGIC/LYMPHATIC: No anemia, easy bleeding, or history of blood clots. ALLERGIC/IMMUNOLOGIC: No hives or skin allergy. *Physical Exam - Vital Signs Last Vital Signs Temp Pulse Resp BP Pulse Ox 97.7 F 120 H 22 162/95 100 11/05/17 16:45 11/05/17 16:45 11/05/17 16:45 11/05/17 16:45 11/05/17 16:45 - Physical Exam Comments: 11/05/17 18:23 GENERAL:Patient awake, alert, and oriented. Trach and PEG tube in place; patient in no acute distress HEAD: No signs of trauma, normocephalic, atraumatic EYES: +Left sclera yellow - at baseline per accompanying daughter. PERRLA, EOMI , conjunctiva clear ENT: Auricles normal inspection, hearing grossly normal, nares patent, oropharynx clear without exudates. Moist mucosa NECK: +Trach tube in place - cough productive of sputum. LUNGS: No distress, clear to auscultation bilaterally HEART: Regular rate and rhythm, normal S1 and S2, no murmurs, rubs or gallops, peripheral pulses normal and equal bilaterally. ABDOMEN: +PEG tube in place. Soft, nontender, normoactive bowel sounds. No guarding, no rebound. No masses EXTREMITIES: Normal inspection, Normal range of motion, no edema. No clubbing or cyanosis. NEUROLOGICAL: Cranial nerves II through XII grossly intact. No focal sensorimotor deficits SKIN: Warm, Dry, normal turgor, no rashes or lesions noted. ED Treatment Course - LABORATORY CBC & Chemistry Diagram: 11/05/17 17:35 11/05/17 17:35 Medical Decision Making - Medical Decision Making 11/05/17 18:57 Ms. Larose is a 62 yo female w/ pmh as described who presents w/ coffeee ground emesis. Patient noted to be at baseline per daughter and has known gastric ulcer - fingerstick glucose noted to be above range in ED. 5mg Insulin given with protonix and symptomatic treatment for n/v. 11/05/17 19:21 CMP glucose noted at 433. Repeat fingerstick ordered post fluids/insulin. Hospitalist paged for further inpatient care of gastric ulcer / hypergylcemia. 11/05/17 19:32 Patient signed out to Dr. Nelson for further care. *DC/Admit/Observation/Transfer Diagnosis at time of Disposition: Hyperglycemia, Coffee ground emesis Gastric ulcer Qualifiers: Gastric ulcer chronicity: chronic Gastric ulcer complication status: unspecified whether hemorrhage or perforation present Qualified Code(s): K25.7 - Chronic gastric ulcer without hemorrhage or perforation - Referrals Referrals: Dejan Medina MD [Primary Care Provider] - - Patient Instructions - Post Discharge Activity
--- NOTE | 2017-11-06 15:47 | PN ---
Progress Note, Physician Chief Complaint: Coffe ground emesis and a history of AFIB History of Present Illness: This is a 62 year old female w/ pmh of multiple acute embolic CVA, acute hypoxia , afib with RVR, metastatic colon ca, chronic renal failure, HTN, DM, HLD, enteral feeding with trach collar. She was recently sent from [facility] for nausea with small volume vomiting with coffee ground emesis. - Current Medication List Current Medications: Active Medications Artificial Tears (Artificial Tears Ointment -) 1 applic OU BID [facility] Atorvastatin Calcium (Lipitor -) 20 mg GT HS [facility] Digoxin (Lanoxin -) 0.125 mg PEG Q2D@1000 [facility] Diltiazem HCl (Cardizem -) 90 mg GT Q6HPO [facility] Last Admin: 11/06/17 12:56 Dose: 90 mg Divalproex Sodium (Depakote -) 500 mg PO BID [facility] Last Admin: 11/06/17 09:58 Dose: 500 mg Potassium Chloride 10 meq/ (Sodium Chloride) 105 mls @ 105 mls/hr IVPB Q60M [facility] Stop: 11/06/17 17:44 Insulin Aspart (Novolog Vial Sliding Scale -) 1 vial SQ HS [facility] PRN Reason: Protocol Insulin Aspart (Novolog Vial Sliding Scale -) 1 vial SQ TIDAC [facility] PRN Reason: Protocol Last Admin: 11/06/17 07:05 Dose: 4 unit Insulin Detemir (Levemir Vial) 20 units SQ AM [facility] Last Admin: 11/06/17 07:05 Dose: 20 unit Metoprolol Tartrate (Lopressor -) 50 mg GT BID [facility] Last Admin: 11/06/17 09:58 Dose: 50 mg Pantoprazole Sodium (Protonix Iv) 40 mg IVPUSH BID [facility] Last Admin: 11/06/17 12:00 Dose: 40 mg Quetiapine Fumarate (Seroquel -) 25 mg GT HS [facility] Trazodone HCl (Desyrel -) 50 mg PEG HS [facility] - Objective Vital Signs: Vital Signs Temperature 98.3 F 11/06/17 12:43 Pulse Rate 76 11/06/17 12:43 Respiratory Rate 16 11/06/17 12:43 Blood Pressure 151/74 11/06/17 12:43 O2 Sat by Pulse Oximetry (%) 100 11/06/17 12:43 Constitutional: Yes: No Distress HENT: Yes: Other (Trach in place) Cardiovascular: Yes: Regular Rate and Rhythm (NL S1S2 no [facility]) Respiratory: Yes: CTA Bilaterally Gastrointestinal: Yes: Soft Extremities: Yes: WNL Edema: No Neurological: Yes: Alert (Follows commands) Labs: CBC, BMP 11/06/17 06:45 11/06/17 06:45 INR, PTT INR 1.03 (0.82-1.09) 11/05/17 17:35 Assessment/Plan History of AFIB Coffee ground emesis HCT 28.7 Would not give anticoagulation at this time because the risks outweigh the benefits Continue rate control with: Digoxin (Lanoxin -) 0.125 mg PEG Q2D@1000 [facility] Diltiazem HCl (Cardizem -) 90 mg GT Q6HPO [facility] Metoprolol Tartrate (Lopressor -) 50 mg GT BID [facility]+
[2017-11-06] MEDS: POTASSIUM CHLORIDE 10 MEQ in SODIUM CHLORIDE 100 ML IVPB SCH ×3 (16:24→18:58)
[2017-11-06 16:40] LABS: HEMATOCRIT 30.1 % (32.4-45.2); HEMOGLOBIN 10.1 GM/dL (10.7-15.3); MCH 28.8 pg (25.7-33.7); MCHC 33.7 g/dl (32.0-36.0); MEAN CELL VOLUME 85.5 fl (80-96); MEAN PLT VOLUME 6.2 fl (7.5-11.1); PLATELET COUNT 338 K/MM3 (134-434); RBC 3.51 M/mm3 (3.60-5.2); RDW 17.9 % (11.6-15.6); WHITE BLOOD COUNT 11.2 K/mm3 (4.0-10.0)
[2017-11-06] MEDS ORDERED: DEXTROSE 50%-WATER 25 GM/50 ML DISP.SYRIN ONE ×2 (16:49→22:34)
[2017-11-06 17:10] LABS: ALBUMIN 1.9 g/dl (3.4-5.0); ALK PHOS 139 U/L (45-117); ANION GAP 12 (8-16); BILIRUBIN,TOTAL 0.3 mg/dL (0.2-1.0); BLOOD UREA NITROGEN 11 mg/dL (7-18); CALCIUM 8.2 mg/dL (8.5-10.1); CHLORIDE 112 mmol/L (98-107); CO2 22 mmol/L (21-32); CREATININE 0.8 mg/dL (0.55-1.02); MAGNESIUM 2.1 mg/dL (1.8-2.4); SGOT/AST 16 U/L (15-37); SGPT/ALT 18 U/L (12-78); SODIUM 146 mmol/L (136-145); TOT PROT 5.3 g/dl (6.4-8.2)
[2017-11-06 17:28] LABS: GLUCOSE,RANDOM 40 mg/dL (74-106)
[2017-11-06 17:29] LABS: POTASSIUM 2.7 mmol/L (3.5-5.1)
[2017-11-06] MEDS ORDERED: DEXTROSE 50%-WATER 25 GM/50 ML DISP.SYRIN IVPUSH ONE (17:30)
[2017-11-06] MEDS: MINERAL OIL/PETROLATUM,WHITE 3.5 GM TUBE OU SCH ×2 (18:59→22:44)
[2017-11-06] MEDS ORDERED: SODIUM CHLORIDE 1,000 ML IV SCH (19:30)
[2017-11-06] MEDS ORDERED: PT OWN MED DRAWER 7, Y5N ONE (19:45)
[2017-11-06] MEDS: ACETAMINOPHEN 650 MG/20.3 ML ORAL SOLUTION (CUPS) GT PRN (20:15)
[2017-11-06] MEDS ORDERED: VALPROATE SODIUM 250 MG/5 ML UNIT DOSE CUP PO SCH (22:00)
[2017-11-06] MEDS ORDERED: POTASSIUM CHLORIDE ORAL LIQUID 20 MEQ/15 ML PEG ONE (22:06)
[2017-11-06] MEDS: KCL 10 MEQ IVPB 10 MEQ/100 ML INFUS.BAG IVPB SCH ×2 (22:20→23:39)
[2017-11-06] MEDS ORDERED: DEXTROSE 50%-WATER 25 GM/50 ML DISP.SYRIN IVPUSH PRN (22:28)
[2017-11-06] MEDS: VALPROATE SODIUM 250 MG/5 ML UNIT DOSE CUP PEG SCH (22:45)
[2017-11-06] MEDS: traZODone HCL 50 MG TABLET (FP) PEG SCH (22:45)
[2017-11-06] MEDS: ATORVASTATIN CA 20 MG TABLET (FP) GT SCH (22:45)
[2017-11-06] MEDS: QUEtiapine FUMARATE 25 MG TABLET (FP) GT SCH (22:48)
[2017-11-07] MEDS: dilTIAZem HCL 30 MG TABLET (FP) GT SCH ×4 (00:56→17:37)
[2017-11-07] MEDS: KCL 10 MEQ IVPB 10 MEQ/100 ML INFUS.BAG IVPB SCH (00:56)
[2017-11-07] MEDS ORDERED: DEXTROSE 50%-WATER 25 GM/50 ML DISP.SYRIN ONE (04:17)
[2017-11-07] MEDS ORDERED: DEXTROSE 50%-WATER 25 GM/50 ML DISP.SYRIN IVPUSH ONE (04:27)
[2017-11-07] MEDS ORDERED: DEXTROSE 50%-WATER - 25 GM/50 ML VIAL IVPUSH ONE (04:30)
--- NOTE | 2017-11-07 04:34 | HOSP ---
Physical Examination Vital Signs: Vital Signs Temperature 97.3 F L 11/07/17 01:00 Pulse Rate 71 11/07/17 01:00 Respiratory Rate 18 11/07/17 01:00 Blood Pressure 140/66 11/07/17 01:00 O2 Sat by Pulse Oximetry (%) 100 11/06/17 23:00 Labs: CBC, BMP 11/06/17 15:40 Hospitalist Encounter Assessment: BGM 54. Pt is not on tube feeds yet. will decrease levemir by 50% to 10units to be given if BGM ok. Will start D5NS +20mEq KCl @ 42cc/hr, dc when bgm consistently [id number].
[2017-11-07] MEDS: D5-NS + 20 MEQ KCL - 20 MEQ/1,000 ML INFUS.BAG IV SCH (04:36)
[2017-11-07] MEDS: INSULIN SLIDING SCALE (NOVOLOG) 1 VIAL SQ SCH ×5 (06:55→22:13)
[2017-11-07] MEDS ORDERED: INSULIN DETEMIR 100 UNITS/ML MDV SQ SCH (07:00)
[2017-11-07 08:03] LABS: HEMATOCRIT 26.2 % (32.4-45.2); HEMOGLOBIN 8.9 GM/dL (10.7-15.3); MCH 29.3 pg (25.7-33.7); MCHC 34.1 g/dl (32.0-36.0); MEAN PLT VOLUME 6.3 fl (7.5-11.1); PLATELET COUNT 273 K/MM3 (134-434); RBC 3.05 M/mm3 (3.60-5.2); RDW 18.7 % (11.6-15.6); WHITE BLOOD COUNT 7.7 K/mm3 (4.0-10.0)
[2017-11-07 09:06] LABS: CHLORIDE 115 mmol/L (98-107); POTASSIUM 3.4 mmol/L (3.5-5.1); SODIUM 146 mmol/L (136-145)
--- NOTE | 2017-11-07 09:07 | PN ---
Progress Note, Physician - Current Medication List Current Medications: Active Medications Acetaminophen (Tylenol Oral Solution -) 650 mg GT Q6H PRN PRN Reason: pain 4-6 Last Admin: 11/06/17 20:15 Dose: 650 mg Artificial Tears (Artificial Tears Ointment -) 1 applic OU BID [facility] Last Admin: 11/06/17 22:44 Dose: Not Given Atorvastatin Calcium (Lipitor -) 20 mg GT HS [facility] Last Admin: 11/06/17 22:45 Dose: 20 mg Digoxin (Lanoxin -) 0.125 mg PEG Q2D@1000 [facility] Diltiazem HCl (Cardizem -) 90 mg GT Q6HPO [facility] Last Admin: 11/07/17 06:39 Dose: 90 mg Dextrose/Sodium Chloride (Dextrose 5%-Normal Saline+20 Meq Kcl -) 20 meq in 1, 000 mls @ 42 mls/hr IV ASDIR [facility] Last Admin: 11/07/17 04:36 Dose: 42 mls/hr Insulin Aspart (Novolog Vial Sliding Scale -) 1 vial SQ HS [facility] PRN Reason: Protocol Last Admin: 11/06/17 22:46 Dose: Not Given Insulin Aspart (Novolog Vial Sliding Scale -) 1 vial SQ TIDAC [facility] PRN Reason: Protocol Last Admin: 11/07/17 06:55 Dose: 2 unit Insulin Detemir (Levemir Vial) 10 units SQ AM [facility] Last Admin: 11/07/17 06:54 Dose: 10 unit Metoprolol Tartrate (Lopressor -) 50 mg GT BID [facility] Last Admin: 11/06/17 22:46 Dose: 50 mg Pantoprazole Sodium (Protonix Iv) 40 mg IVPUSH BID [facility] Last Admin: 11/06/17 22:47 Dose: 40 mg Quetiapine Fumarate (Seroquel -) 25 mg GT HS [facility] Last Admin: 11/06/17 22:48 Dose: 25 mg Trazodone HCl (Desyrel -) 50 mg PEG HS [facility] Last Admin: 11/06/17 22:45 Dose: 50 mg Valproate Sodium (Depakene -) 500 mg PEG BID [facility] Last Admin: 11/06/17 22:45 Dose: 500 mg - Objective Vital Signs: Vital Signs Temperature 98.2 F 11/07/17 05:00 Pulse Rate 75 11/07/17 05:00 Respiratory Rate 18 11/07/17 07:00 Blood Pressure 135/65 11/07/17 05:00 O2 Sat by Pulse Oximetry (%) 100 11/07/17 07:00 Labs: CBC, BMP 11/07/17 06:30 11/07/17 06:30 INR, PTT INR 1.03 (0.82-1.09) 11/05/17 17:35
[2017-11-07 09:13] LABS: ALBUMIN 1.6 g/dl (3.4-5.0); ALK PHOS 124 U/L (45-117); ANION GAP 11 (8-16); BILIRUBIN,TOTAL 0.4 mg/dL (0.2-1.0); BLOOD UREA NITROGEN 8 mg/dL (7-18); CALCIUM 7.9 mg/dL (8.5-10.1); CO2 20 mmol/L (21-32); CREATININE 0.9 mg/dL (0.55-1.02); GLUCOSE,RANDOM 165 mg/dL (74-106); MAGNESIUM 1.8 mg/dL (1.8-2.4); SGOT/AST 14 U/L (15-37); SGPT/ALT 14 U/L (12-78); TOT PROT 4.8 g/dl (6.4-8.2)
[2017-11-07] MEDS ORDERED: PT OWN MED DRAWER 7, Y5N ONE ×5 (09:30→12:33)
[2017-11-07] MEDS: PANTOPRAZOLE SODIUM 40 MG VIAL IVPUSH SCH ×2 (09:39→21:41)
[2017-11-07] MEDS: VALPROATE SODIUM 250 MG/5 ML UNIT DOSE CUP PEG SCH ×2 (09:39→21:39)
[2017-11-07] MEDS: MINERAL OIL/PETROLATUM,WHITE 3.5 GM TUBE OU SCH ×2 (09:39→21:38)
[2017-11-07] MEDS: METOPROLOL TARTRATE 50 MG TABLET (FP) GT SCH ×2 (09:39→21:41)
[2017-11-07] MEDS: ACETAMINOPHEN 650 MG/20.3 ML ORAL SOLUTION (CUPS) GT PRN ×2 (09:42→18:53)
[2017-11-07 09:44] LABS: ANISOCYTOSIS 1+; MACROCYTOSIS 0; PLATELET ESTIMATE NORMAL
[2017-11-07] MEDS: POTASSIUM CHLORIDE 10 MEQ in SODIUM CHLORIDE 100 ML IVPB SCH ×2 (11:25→12:29)
[2017-11-07 14:12] LABS: HEMATOCRIT 27.9 % (32.4-45.2); HEMOGLOBIN 9.5 GM/dL (10.7-15.3); MCH 29.3 pg (25.7-33.7); MEAN CELL VOLUME 86.3 fl (80-96); MEAN PLT VOLUME 6.2 fl (7.5-11.1); PLATELET COUNT 262 K/MM3 (134-434); RBC 3.23 M/mm3 (3.60-5.2); RDW 18.4 % (11.6-15.6)
--- NOTE | 2017-11-07 14:46 | PN ---
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
--- NOTE | 2017-11-07 15:08 | PN ---
Progress Note, Physician History of Present Illness: No events. No signs of bleeding, per nurse. Pt appears comfortable - Current Medication List Current Medications: Active Medications Acetaminophen (Tylenol Oral Solution -) 650 mg GT Q6H PRN PRN Reason: pain 4-6 Last Admin: 11/07/17 09:42 Dose: 650 mg Artificial Tears (Artificial Tears Ointment -) 1 applic OU BID [facility] Last Admin: 11/07/17 09:39 Dose: Not Given Atorvastatin Calcium (Lipitor -) 20 mg GT HS [facility] Last Admin: 11/06/17 22:45 Dose: 20 mg Digoxin (Lanoxin -) 0.125 mg PEG Q2D@1000 [facility] Diltiazem HCl (Cardizem -) 90 mg GT Q6HPO [facility] Last Admin: 11/07/17 12:33 Dose: 90 mg Dextrose/Sodium Chloride (Dextrose 5%-Normal Saline+20 Meq Kcl -) 20 meq in 1, 000 mls @ 42 mls/hr IV ASDIR [facility] Last Admin: 11/07/17 04:36 Dose: 42 mls/hr Insulin Aspart (Novolog Vial Sliding Scale -) 1 vial SQ HS [facility] PRN Reason: Protocol Last Admin: 11/06/17 22:46 Dose: Not Given Insulin Aspart (Novolog Vial Sliding Scale -) 1 vial SQ TIDAC [facility] PRN Reason: Protocol Last Admin: 11/07/17 12:04 Dose: 2 unit Metoprolol Tartrate (Lopressor -) 50 mg GT BID [facility] Last Admin: 11/07/17 09:39 Dose: 50 mg Pantoprazole Sodium (Protonix Iv) 40 mg IVPUSH BID [facility] Last Admin: 11/07/17 09:39 Dose: 40 mg Quetiapine Fumarate (Seroquel -) 25 mg GT HS [facility] Last Admin: 11/06/17 22:48 Dose: 25 mg Trazodone HCl (Desyrel -) 50 mg PEG HS [facility] Last Admin: 11/06/17 22:45 Dose: 50 mg Valproate Sodium (Depakene -) 500 mg PEG BID [facility] Last Admin: 11/07/17 09:39 Dose: 500 mg - Objective Vital Signs: Vital Signs Temperature 97.6 F 11/07/17 14:26 Pulse Rate 63 11/07/17 14:26 Respiratory Rate 20 11/07/17 14:26 Blood Pressure 109/62 11/07/17 14:26 O2 Sat by Pulse Oximetry (%) 100 11/07/17 07:00 Constitutional: Yes: No Distress Gastrointestinal: Yes: Normal Bowel Sounds, Soft. No: Distention, Rectal Bleeding, Tenderness, Vomiting Neurological: Yes: Alert Labs: CBC, BMP 11/07/17 13:35 11/07/17 06:30 INR, PTT INR 1.03 (0.82-1.09) 11/05/17 17:35 CBCD WBC 9.0 K/mm3 (4.0-10.0) 11/07/17 13:35 RBC 3.23 M/mm3 (3.60-5.2) L 11/07/17 13:35 Hgb 9.5 GM/dL (10.7-15.3) L 11/07/17 13:35 Hct 27.9 % (32.4-45.2) L 11/07/17 13:35 MCV 86.3 fl (80-96) 11/07/17 13:35 MCHC 34.0 g/dl (32.0-36.0) 11/07/17 13:35 RDW 18.4 % (11.6-15.6) H 11/07/17 13:35 Plt Count 262 K/MM3 (134-434) 11/07/17 13:35 MPV 6.2 fl (7.5-11.1) L 11/07/17 13:35 CMP Sodium 146 mmol/L (136-145) H 11/07/17 06:30 Potassium 3.4 mmol/L (3.5-5.1) L 11/07/17 06:30 Chloride 115 mmol/L (98-107) H 11/07/17 06:30 Carbon Dioxide 20 mmol/L (21-32) L 11/07/17 06:30 Anion Gap 11 (8-16) 11/07/17 06:30 BUN 8 mg/dL (7-18) 11/07/17 06:30 Creatinine 0.9 mg/dL (0.55-1.02) 11/07/17 06:30 Creat Clearance w eGFR > 60 (>60) 11/07/17 06:30 Calcium 7.9 mg/dL (8.5-10.1) L 11/07/17 06:30 Total Bilirubin 0.4 mg/dL (0.2-1.0) D 11/07/17 06:30 AST 14 U/L (15-37) L 11/07/17 06:30 ALT 14 U/L (12-78) 11/07/17 06:30 Alkaline Phosphatase 124 U/L (45-117) H 11/07/17 06:30 Total Protein 4.8 g/dl (6.4-8.2) L 11/07/17 06:30 Albumin 1.6 g/dl (3.4-5.0) L 11/07/17 06:30 Problem List - Problems (1) Coffee ground emesis Code(s): K92.0 - HEMATEMESIS Assessment/Plan No signs of bleeding. Hgb 9.5g/dl today Continue to monitor closely for signs of bleeding.
[2017-11-07] MEDS: traZODone HCL 50 MG TABLET (FP) PEG SCH (21:40)
[2017-11-07] MEDS: ATORVASTATIN CA 20 MG TABLET (FP) GT SCH (21:41)
[2017-11-07] MEDS: QUEtiapine FUMARATE 25 MG TABLET (FP) GT SCH (21:42)
[2017-11-08] MEDS: dilTIAZem HCL 30 MG TABLET (FP) GT SCH ×4 (00:40→17:52)
[2017-11-08] MEDS ORDERED: POTASSIUM CHLORIDE 20 MEQ in DEXTROSE 5%-0.45% SALINE 1,000 ML IVPB SCH (06:30)
[2017-11-08] MEDS: INSULIN SLIDING SCALE (NOVOLOG) 1 VIAL SQ SCH ×4 (06:38→21:27)
[2017-11-08] MEDS: D5-NS + 20 MEQ KCL - 20 MEQ/1,000 ML INFUS.BAG IV SCH ×2 (06:40→06:41)
[2017-11-08] MEDS ORDERED: POTASSIUM CHLORIDE 20 MEQ in DEXTROSE 5%-NORMAL SALINE 1,000 ML IVPB SCH (06:45)
[2017-11-08 08:28] LABS: ALBUMIN 1.6 g/dl (3.4-5.0); ANION GAP 13 (8-16); BLOOD UREA NITROGEN 5 mg/dL (7-18); CALCIUM 8.3 mg/dL (8.5-10.1); CHLORIDE 115 mmol/L (98-107); CO2 19 mmol/L (21-32); GLUCOSE,RANDOM 132 mg/dL (74-106); POTASSIUM 3.5 mmol/L (3.5-5.1); SGPT/ALT 14 U/L (12-78); SODIUM 147 mmol/L (136-145)
[2017-11-08 08:31] LABS: ALK PHOS 130 U/L (45-117); BILIRUBIN,TOTAL 0.3 mg/dL (0.2-1.0); CREATININE 0.9 mg/dL (0.55-1.02); SGOT/AST 13 U/L (15-37); TOT PROT 4.9 g/dl (6.4-8.2)
[2017-11-08 08:38] LABS: HEMATOCRIT 28.1 % (32.4-45.2); HEMOGLOBIN 9.5 GM/dL (10.7-15.3); MCH 29.2 pg (25.7-33.7); MCHC 33.6 g/dl (32.0-36.0); MEAN CELL VOLUME 86.8 fl (80-96); MEAN PLT VOLUME 6.3 fl (7.5-11.1); PLATELET COUNT 270 K/MM3 (134-434); RBC 3.24 M/mm3 (3.60-5.2); RDW 19.1 % (11.6-15.6)
[2017-11-08 09:50] LABS: PLATELET ESTIMATE NORMAL
[2017-11-08] MEDS ORDERED: PT OWN MED DRAWER 7, Y5N ONE ×2 (10:18→10:51)
[2017-11-08] MEDS: METOPROLOL TARTRATE 50 MG TABLET (FP) GT SCH ×2 (10:22→21:22)
[2017-11-08] MEDS: PANTOPRAZOLE SODIUM 40 MG VIAL IVPUSH SCH ×2 (10:22→21:24)
[2017-11-08] MEDS: VALPROATE SODIUM 250 MG/5 ML UNIT DOSE CUP PEG SCH ×2 (10:24→21:22)
[2017-11-08] MEDS: DIGOXIN 0.125 MG TABLET (FP) PEG SCH (10:25)
--- NOTE | 2017-11-08 11:14 | PN ---
Progress Note, Physician Chief Complaint: hematemesis History of Present Illness: NAD, no N/V H/H stable, seen by GI - Current Medication List Current Medications: Active Medications Acetaminophen (Tylenol Oral Solution -) 650 mg GT Q6H PRN PRN Reason: pain 4-6 Last Admin: 11/07/17 18:53 Dose: 650 mg Artificial Tears (Artificial Tears Ointment -) 1 applic OU BID [facility] Last Admin: 11/07/17 21:38 Dose: 1 applic Atorvastatin Calcium (Lipitor -) 20 mg GT HS [facility] Last Admin: 11/07/17 21:41 Dose: 20 mg Digoxin (Lanoxin -) 0.125 mg PEG Q2D@1000 [facility] Last Admin: 11/08/17 10:25 Dose: 0.125 mg Diltiazem HCl (Cardizem -) 90 mg GT Q6HPO [facility] Last Admin: 11/08/17 06:41 Dose: 90 mg Dextrose/Sodium Chloride (Dextrose 5%-Normal Saline+20 Meq Kcl -) 20 meq in 1, 000 mls @ 42 mls/hr IV ASDIR [facility] Last Admin: 11/08/17 06:41 Dose: Not Given Potassium Chloride 20 meq/ (Dextrose/Sodium Chloride) 1,010 mls @ 42 mls/hr IVPB Q24H [facility] Insulin Aspart (Novolog Vial Sliding Scale -) 1 vial SQ HS [facility] PRN Reason: Protocol Last Admin: 11/07/17 22:13 Dose: Not Given Insulin Aspart (Novolog Vial Sliding Scale -) 1 vial SQ TIDAC [facility] PRN Reason: Protocol Last Admin: 11/08/17 06:38 Dose: Not Given Metoprolol Tartrate (Lopressor -) 50 mg GT BID [facility] Last Admin: 11/08/17 10:22 Dose: 50 mg Pantoprazole Sodium (Protonix Iv) 40 mg IVPUSH BID [facility] Last Admin: 11/08/17 10:22 Dose: 40 mg Quetiapine Fumarate (Seroquel -) 25 mg GT HS [facility] Last Admin: 11/07/17 21:42 Dose: 25 mg Trazodone HCl (Desyrel -) 50 mg PEG HS [facility] Last Admin: 11/07/17 21:40 Dose: 50 mg Valproate Sodium (Depakene -) 500 mg PEG BID [facility] Last Admin: 11/08/17 10:24 Dose: 500 mg - Objective Vital Signs: Vital Signs Temperature 98 F 11/08/17 06:45 Pulse Rate 73 11/08/17 10:25 Respiratory Rate 20 11/08/17 06:45 Blood Pressure 135/66 11/08/17 06:45 O2 Sat by Pulse Oximetry (%) 100 11/07/17 23:00 Constitutional: Yes: Well Nourished, No Distress, Calm Cardiovascular: Yes: Regular Rate and Rhythm Respiratory: Yes: Regular Gastrointestinal: Yes: Normal Bowel Sounds, Soft Neurological: Yes: Alert, Pre-Existing Deficit Psychiatric: Yes: Alert Labs: CBC, BMP 11/08/17 07:00 11/08/17 07:00 INR, PTT INR 1.03 (0.82-1.09) 11/05/17 17:35 Problem List - Problems (1) Hyperglycemia Assessment/Plan: -BGM -Insulin -Endocrinology consult -restart feeding as per RD recommendation -repeat A1C Code(s): R73.9 - HYPERGLYCEMIA, UNSPECIFIED (2) Anemia Assessment/Plan: 2/2 to blood loss? or Chronic disease -Iron profile normal in Sep 2017 -hematology consult -monitor trend -stool OB Code(s): D64.9 - ANEMIA, UNSPECIFIED (3) Diabetes mellitus, insulin dependent (IDDM), uncontrolled Assessment/Plan: -check A1c -endocrinology consult -BGM -Insulin Code(s): E10.65 - TYPE 1 DIABETES MELLITUS WITH HYPERGLYCEMIA (4) Hematemesis Assessment/Plan: -seen by GI -H/H stabilized -check stool OB -has had EGD's in the past Code(s): K92.0 - HEMATEMESIS Assessment/Plan see problem list
[2017-11-08] MEDS: MINERAL OIL/PETROLATUM,WHITE 3.5 GM TUBE OU SCH ×2 (11:31→22:34)
--- NOTE | 2017-11-08 13:22 | PN ---
Progress Note (short form) - Note Progress Note: PULMONARY More awake, alert today. More secretions from tracheostomy. No fevers or chills. Last Vital Signs Temp Pulse Resp BP Pulse Ox 98.3 F 73 20 136/66 100 11/08/17 08:00 11/08/17 10:25 11/08/17 08:00 11/08/17 08:00 11/07/17 23:00 Gen: NAD at rest Heart: RRR Lung: scattered rhonchi Abd: soft, nontender Ext: no edema CBC, BMP 11/08/17 07:00 11/08/17 07:00 Active Medications Acetaminophen (Tylenol Oral Solution -) 650 mg GT Q6H PRN PRN Reason: pain 4-6 Last Admin: 11/07/17 18:53 Dose: 650 mg Artificial Tears (Artificial Tears Ointment -) 1 applic OU BID [facility] Last Admin: 11/08/17 11:31 Dose: 1 applic Atorvastatin Calcium (Lipitor -) 20 mg GT HS [facility] Last Admin: 11/07/17 21:41 Dose: 20 mg Digoxin (Lanoxin -) 0.125 mg PEG Q2D@1000 [facility] Last Admin: 11/08/17 10:25 Dose: 0.125 mg Diltiazem HCl (Cardizem -) 90 mg GT Q6HPO [facility] Last Admin: 11/08/17 11:52 Dose: 90 mg Dextrose/Sodium Chloride (Dextrose 5%-Normal Saline+20 Meq Kcl -) 20 meq in 1, 000 mls @ 42 mls/hr IV ASDIR [facility] Last Admin: 11/08/17 06:41 Dose: Not Given Potassium Chloride 20 meq/ (Dextrose/Sodium Chloride) 1,010 mls @ 42 mls/hr IVPB Q24H [facility] Insulin Aspart (Novolog Vial Sliding Scale -) 1 vial SQ HS [facility] PRN Reason: Protocol Last Admin: 11/07/17 22:13 Dose: Not Given Insulin Aspart (Novolog Vial Sliding Scale -) 1 vial SQ TIDAC [facility] PRN Reason: Protocol Last Admin: 11/08/17 11:36 Dose: 3 unit Metoprolol Tartrate (Lopressor -) 50 mg GT BID [facility] Last Admin: 11/08/17 10:22 Dose: 50 mg Pantoprazole Sodium (Protonix Iv) 40 mg IVPUSH BID [facility] Last Admin: 11/08/17 10:22 Dose: 40 mg Quetiapine Fumarate (Seroquel -) 25 mg GT HS [facility] Last Admin: 11/07/17 21:42 Dose: 25 mg Trazodone HCl (Desyrel -) 50 mg PEG HS [facility] Last Admin: 11/07/17 21:40 Dose: 50 mg Valproate Sodium (Depakene -) 500 mg PEG BID [facility] Last Admin: 11/08/17 10:24 Dose: 500 mg A/P Coffee Ground Emesis resolved Chronic Respiratory Failure s/p tracheostomy Metastatic Colon Ca to lung Atrial Fibrillation h/o CVA HTN DM - will check CXR - protonix - monitor H/H - aspiration precautions - continue trach collar for now - can attempt PMV - swallow eval - inhaled bronchodilators - O2 to keep SpO2 >90% - rate controlled - continue anticoagulation when ok with GI - DVT prophylaxis Problem List - Problems (1) Coffee ground emesis Code(s): K92.0 - HEMATEMESIS (2) Hyperglycemia Code(s): R73.9 - HYPERGLYCEMIA, UNSPECIFIED (3) Chronic respiratory failure Code(s): J96.10 - CHRONIC RESPIRATORY FAILURE, UNSP W HYPOXIA OR HYPERCAPNIA (4) Atrial fibrillation Code(s): I48.91 - UNSPECIFIED ATRIAL FIBRILLATION (5) Diabetes Code(s): E11.9 - TYPE 2 DIABETES MELLITUS WITHOUT COMPLICATIONS Qualifiers: Diabetes mellitus type: type 2 (6) HLD (hyperlipidemia) Code(s): E78.5 - HYPERLIPIDEMIA, UNSPECIFIED (7) HTN (hypertension) Code(s): I10 - ESSENTIAL (PRIMARY) HYPERTENSION (8) Lung mass Code(s): R91.8 - OTHER NONSPECIFIC ABNORMAL FINDING OF LUNG FIELD (9) Metastatic colorectal cancer Code(s): C78.5 - SECONDARY MALIGNANT NEOPLASM OF LARGE INTESTINE AND RECTUM
--- NOTE | 2017-11-08 17:56 | PN ---
Progress Note (short form) - Note Progress Note: CBCD WBC 9.0 K/mm3 (4.0-10.0) 11/08/17 07:00 RBC 3.24 M/mm3 (3.60-5.2) L 11/08/17 07:00 Hgb 9.5 GM/dL (10.7-15.3) L 11/08/17 07:00 Hct 28.1 % (32.4-45.2) L 11/08/17 07:00 MCV 86.8 fl (80-96) 11/08/17 07:00 MCHC 33.6 g/dl (32.0-36.0) 11/08/17 07:00 RDW 19.1 % (11.6-15.6) H 11/08/17 07:00 Plt Count 270 K/MM3 (134-434) 11/08/17 07:00 MPV 6.3 fl (7.5-11.1) L 11/08/17 07:00 CMP Sodium 147 mmol/L (136-145) H 11/08/17 07:00 Potassium 3.5 mmol/L (3.5-5.1) 11/08/17 07:00 Chloride 115 mmol/L (98-107) H 11/08/17 07:00 Carbon Dioxide 19 mmol/L (21-32) L 11/08/17 07:00 Anion Gap 13 (8-16) 11/08/17 07:00 BUN 5 mg/dL (7-18) L 11/08/17 07:00 Creatinine 0.9 mg/dL (0.55-1.02) 11/08/17 07:00 Creat Clearance w eGFR > 60 (>60) 11/08/17 07:00 Calcium 8.3 mg/dL (8.5-10.1) L 11/08/17 07:00 Total Bilirubin 0.3 mg/dL (0.2-1.0) D 11/08/17 07:00 AST 13 U/L (15-37) L 11/08/17 07:00 ALT 14 U/L (12-78) 11/08/17 07:00 Alkaline Phosphatase 130 U/L (45-117) H 11/08/17 07:00 Total Protein 4.9 g/dl (6.4-8.2) L 11/08/17 07:00 Albumin 1.6 g/dl (3.4-5.0) L 11/08/17 07:00 Problem List - Problems (1) Coffee ground emesis Code(s): K92.0 - HEMATEMESIS
[2017-11-08] MEDS: ATORVASTATIN CA 20 MG TABLET (FP) GT SCH (21:23)
[2017-11-08] MEDS: traZODone HCL 50 MG TABLET (FP) PEG SCH (21:24)
[2017-11-08] MEDS: QUEtiapine FUMARATE 25 MG TABLET (FP) GT SCH (21:24)
[2017-11-09] MEDS: dilTIAZem HCL 30 MG TABLET (FP) GT SCH ×4 (00:56→18:06)
--- NOTE | 2017-11-09 01:32 | PN ---
Progress Note (short form) - Note Progress Note: diabetes uncontrolled partly nature of feedings and iv fluid Abnormal Lab Results 11/08/17 11/08/17 11/08/17 07:00 07:00 07:00 RBC 3.24 L Hgb 9.5 L Hct 28.1 L RDW 19.1 H MPV 6.3 L Eosinophils % (Manual) 5.1 H Sodium 147 H Chloride 115 H Carbon Dioxide 19 L BUN 5 L Random Glucose 132 H Hemoglobin A1c % 6.9 H Calcium 8.3 L AST 13 L Alkaline Phosphatase 130 H Total Protein 4.9 L Albumin 1.6 L TSH 6.42 H Laboratory Results - last 24 hr 11/08/17 11/08/17 11/08/17 01:48 06:37 07:00 WBC 9.0 RBC 3.24 L Hgb 9.5 L Hct 28.1 L MCV 86.8 MCH 29.2 MCHC 33.6 RDW 19.1 H Plt Count 270 MPV 6.3 L Neutrophils % No Result Required. Neutrophils % (Manual) 66.3 Band Neutrophils % 0.0 Lymphocytes % No Result Required. Lymphocytes % (Manual) 16.3 D Monocytes % (Manual) 7 D Eosinophils % (Manual) 5.1 H Basophils % (Manual) 1.0 D Myelocytes % (Man) 2 D Promyelocytes % (Man) 0 Blast Cells % (Manual) 0 Nucleated RBC % 0 Metamyelocytes 0 D Platelet Estimate Normal Sodium Potassium Chloride Carbon Dioxide Anion Gap BUN Creatinine Creat Clearance w eGFR POC Glucometer 104 136 Random Glucose Hemoglobin A1c % Calcium Total Bilirubin AST ALT Alkaline Phosphatase Total Protein Albumin TSH Free T4 11/08/17 11/08/17 11/08/17 07:00 07:00 07:00 WBC RBC Hgb Hct MCV MCH MCHC RDW Plt Count MPV Neutrophils % Neutrophils % (Manual) Band Neutrophils % Lymphocytes % Lymphocytes % (Manual) Monocytes % (Manual) Eosinophils % (Manual) Basophils % (Manual) Myelocytes % (Man) Promyelocytes % (Man) Blast Cells % (Manual) Nucleated RBC % Metamyelocytes Platelet Estimate Sodium 147 H Potassium 3.5 Chloride 115 H Carbon Dioxide 19 L Anion Gap 13 BUN 5 L Creatinine 0.9 Creat Clearance w eGFR > 60 POC Glucometer Random Glucose 132 H Hemoglobin A1c % 6.9 H Calcium 8.3 L Total Bilirubin 0.3 D AST 13 L ALT 14 Alkaline Phosphatase 130 H Total Protein 4.9 L Albumin 1.6 L TSH 6.42 H Cancelled Free T4 1.18 Cancelled 11/08/17 11/08/17 11/08/17 07:59 11:33 16:31 WBC RBC Hgb Hct MCV MCH MCHC RDW Plt Count MPV Neutrophils % Neutrophils % (Manual) Band Neutrophils % Lymphocytes % Lymphocytes % (Manual) Monocytes % (Manual) Eosinophils % (Manual) Basophils % (Manual) Myelocytes % (Man) Promyelocytes % (Man) Blast Cells % (Manual) Nucleated RBC % Metamyelocytes Platelet Estimate Sodium Potassium Chloride Carbon Dioxide Anion Gap BUN Creatinine Creat Clearance w eGFR POC Glucometer 162 238 143 Random Glucose Hemoglobin A1c % Calcium Total Bilirubin AST ALT Alkaline Phosphatase Total Protein Albumin TSH Free T4 11/08/17 11/09/17 19:25 00:50 WBC RBC Hgb Hct MCV MCH MCHC RDW Plt Count MPV Neutrophils % Neutrophils % (Manual) Band Neutrophils % Lymphocytes % Lymphocytes % (Manual) Monocytes % (Manual) Eosinophils % (Manual) Basophils % (Manual) Myelocytes % (Man) Promyelocytes % (Man) Blast Cells % (Manual) Nucleated RBC % Metamyelocytes Platelet Estimate Sodium Potassium Chloride Carbon Dioxide Anion Gap BUN Creatinine Creat Clearance w eGFR POC Glucometer 306 392 Random Glucose Hemoglobin A1c % Calcium Total Bilirubin AST ALT Alkaline Phosphatase Total Protein Albumin TSH Free T4 Current Active Problems Chronic respiratory failure (Acute) Coffee ground emesis (Acute) Gastric ulcer (Acute) Hematemesis (Acute) Hyperglycemia (Acute) Hypokalemia (Acute) Hypomagnesemia (Acute) plan: restart levemir 15 units am novolog qid coverage
[2017-11-09] MEDS: D5-NS + 20 MEQ KCL - 20 MEQ/1,000 ML INFUS.BAG IV SCH ×2 (04:30→06:38)
[2017-11-09] MEDS: INSULIN SLIDING SCALE (NOVOLOG) 1 VIAL SQ SCH ×4 (06:32→23:12)
[2017-11-09] MEDS: INSULIN DETEMIR 100 UNITS/ML MDV SQ SCH (06:33)
[2017-11-09 07:39] LABS: HEMATOCRIT 27.4 % (32.4-45.2); HEMOGLOBIN 9.4 GM/dL (10.7-15.3); MCH 29.7 pg (25.7-33.7); MCHC 34.3 g/dl (32.0-36.0); MEAN CELL VOLUME 86.4 fl (80-96); MEAN PLT VOLUME 6.6 fl (7.5-11.1); PLATELET COUNT 260 K/MM3 (134-434); RBC 3.17 M/mm3 (3.60-5.2); RDW 18.6 % (11.6-15.6)
[2017-11-09 08:13] LABS: ANION GAP 14 (8-16); BLOOD UREA NITROGEN 8 mg/dL (7-18); CALCIUM 8.1 mg/dL (8.5-10.1); CHLORIDE 114 mmol/L (98-107); CO2 20 mmol/L (21-32); GLUCOSE,RANDOM 234 mg/dL (74-106); POTASSIUM 3.6 mmol/L (3.5-5.1); SODIUM 148 mmol/L (136-145)
[2017-11-09 08:17] LABS: ALBUMIN 1.5 g/dl (3.4-5.0); ALK PHOS 136 U/L (45-117); BILIRUBIN,TOTAL 0.2 mg/dL (0.2-1.0); SGOT/AST 9 U/L (15-37); SGPT/ALT 11 U/L (12-78); TOT PROT 4.9 g/dl (6.4-8.2)
[2017-11-09 10:05] LABS: PLATELET ESTIMATE ADEQUATE
[2017-11-09] MEDS: METOPROLOL TARTRATE 50 MG TABLET (FP) GT SCH ×2 (10:18→22:13)
[2017-11-09] MEDS: PANTOPRAZOLE SODIUM 40 MG VIAL IVPUSH SCH ×2 (10:18→22:13)
[2017-11-09] MEDS: MINERAL OIL/PETROLATUM,WHITE 3.5 GM TUBE OU SCH ×2 (10:20→22:13)
[2017-11-09] MEDS: VALPROATE SODIUM 250 MG/5 ML UNIT DOSE CUP PEG SCH ×2 (10:20→22:13)
--- NOTE | 2017-11-09 11:42 | PN ---
Progress Note (short form) - Note Progress Note: PULMONARY Denies shortness of breath. No fevers recorded. Last Vital Signs Temp Pulse Resp BP Pulse Ox 98.1 F 80 20 146/71 100 11/09/17 08:40 11/09/17 08:40 11/09/17 08:40 11/09/17 08:40 11/09/17 10:00 Gen: NAD at rest Heart: RRR Lung: scattered rhonchi Abd: soft, nontender Ext: no edema CBC, BMP 11/09/17 07:27 11/09/17 07:27 Active Medications Acetaminophen (Tylenol Oral Solution -) 650 mg GT Q6H PRN PRN Reason: pain 4-6 Last Admin: 11/07/17 18:53 Dose: 650 mg Artificial Tears (Artificial Tears Ointment -) 1 applic OU BID [facility] Last Admin: 11/09/17 10:20 Dose: 1 applic Atorvastatin Calcium (Lipitor -) 20 mg GT HS [facility] Last Admin: 11/08/17 21:23 Dose: 20 mg Digoxin (Lanoxin -) 0.125 mg PEG Q2D@1000 [facility] Last Admin: 11/08/17 10:25 Dose: 0.125 mg Diltiazem HCl (Cardizem -) 90 mg GT Q6HPO [facility] Last Admin: 11/09/17 06:36 Dose: 90 mg Dextrose/Sodium Chloride (Dextrose 5%-Normal Saline+20 Meq Kcl -) 20 meq in 1, 000 mls @ 42 mls/hr IV ASDIR [facility] Last Admin: 11/09/17 06:38 Dose: 42 mls/hr Potassium Chloride 20 meq/ (Dextrose/Sodium Chloride) 1,010 mls @ 42 mls/hr IVPB Q24H [facility] Insulin Aspart (Novolog Vial Sliding Scale -) 1 vial SQ TIDAC [facility] PRN Reason: Protocol Last Admin: 11/09/17 06:32 Dose: 3 unit Insulin Aspart (Novolog Vial Sliding Scale -) 1 vial SQ [facility] PRN Reason: Protocol Insulin Detemir (Levemir Vial) 15 units SQ AM [facility] Last Admin: 11/09/17 06:33 Dose: 15 units Metoprolol Tartrate (Lopressor -) 50 mg GT BID [facility] Last Admin: 11/09/17 10:18 Dose: 50 mg Pantoprazole Sodium (Protonix Iv) 40 mg IVPUSH BID [facility] Last Admin: 11/09/17 10:18 Dose: 40 mg Quetiapine Fumarate (Seroquel -) 25 mg GT HS [facility] Last Admin: 11/08/17 21:24 Dose: 25 mg Trazodone HCl (Desyrel -) 50 mg PEG HS [facility] Last Admin: 11/08/17 21:24 Dose: 50 mg Valproate Sodium (Depakene -) 500 mg PEG BID [facility] Last Admin: 11/09/17 10:20 Dose: 500 mg A/P Coffee Ground Emesis resolved Chronic Respiratory Failure s/p tracheostomy Metastatic Colon Ca to lung Atrial Fibrillation h/o CVA HTN DM - change IVF to hypotonics - protonix - monitor H/H - aspiration precautions - continue trach collar for now - can attempt PMV - swallow eval - inhaled bronchodilators - O2 to keep SpO2 >90% - rate controlled - continue anticoagulation when ok with GI - DVT prophylaxis Problem List - Problems (1) Coffee ground emesis Code(s): K92.0 - HEMATEMESIS (2) Hyperglycemia Code(s): R73.9 - HYPERGLYCEMIA, UNSPECIFIED (3) Chronic respiratory failure Code(s): J96.10 - CHRONIC RESPIRATORY FAILURE, UNSP W HYPOXIA OR HYPERCAPNIA (4) Atrial fibrillation Code(s): I48.91 - UNSPECIFIED ATRIAL FIBRILLATION (5) Diabetes Code(s): E11.9 - TYPE 2 DIABETES MELLITUS WITHOUT COMPLICATIONS Qualifiers: Diabetes mellitus type: type 2 (6) HLD (hyperlipidemia) Code(s): E78.5 - HYPERLIPIDEMIA, UNSPECIFIED (7) HTN (hypertension) Code(s): I10 - ESSENTIAL (PRIMARY) HYPERTENSION (8) Lung mass Code(s): R91.8 - OTHER NONSPECIFIC ABNORMAL FINDING OF LUNG FIELD (9) Metastatic colorectal cancer Code(s): C78.5 - SECONDARY MALIGNANT NEOPLASM OF LARGE INTESTINE AND RECTUM
[2017-11-09] MEDS: DEXTROSE 5%-WATER - 1,000 ML IV SCH (12:00)
--- NOTE | 2017-11-09 12:06 | PN ---
Progress Note, Physician Chief Complaint: hematemesis History of Present Illness: NAD, no N/V H/H stable, seen by GI - Current Medication List Current Medications: Active Medications Acetaminophen (Tylenol Oral Solution -) 650 mg GT Q6H PRN PRN Reason: pain 4-6 Last Admin: 11/07/17 18:53 Dose: 650 mg Artificial Tears (Artificial Tears Ointment -) 1 applic OU BID [facility] Last Admin: 11/09/17 10:20 Dose: 1 applic Atorvastatin Calcium (Lipitor -) 20 mg GT HS [facility] Last Admin: 11/08/17 21:23 Dose: 20 mg Digoxin (Lanoxin -) 0.125 mg PEG Q2D@1000 [facility] Last Admin: 11/08/17 10:25 Dose: 0.125 mg Diltiazem HCl (Cardizem -) 90 mg GT Q6HPO [facility] Last Admin: 11/09/17 11:53 Dose: 90 mg Dextrose (D5w -) 1,000 mls @ 42 mls/hr IV ASDIR [facility] Last Admin: 11/09/17 12:00 Dose: 42 mls/hr Insulin Aspart (Novolog Vial Sliding Scale -) 1 vial SQ TIDAC [facility] PRN Reason: Protocol Last Admin: 11/09/17 11:59 Dose: 4 unit Insulin Aspart (Novolog Vial Sliding Scale -) 1 vial SQ [facility] PRN Reason: Protocol Insulin Detemir (Levemir Vial) 15 units SQ AM [facility] Last Admin: 11/09/17 06:33 Dose: 15 units Metoprolol Tartrate (Lopressor -) 50 mg GT BID [facility] Last Admin: 11/09/17 10:18 Dose: 50 mg Pantoprazole Sodium (Protonix Iv) 40 mg IVPUSH BID [facility] Last Admin: 11/09/17 10:18 Dose: 40 mg Quetiapine Fumarate (Seroquel -) 25 mg GT HS [facility] Last Admin: 11/08/17 21:24 Dose: 25 mg Trazodone HCl (Desyrel -) 50 mg PEG HS [facility] Last Admin: 11/08/17 21:24 Dose: 50 mg Valproate Sodium (Depakene -) 500 mg PEG BID [facility] Last Admin: 11/09/17 10:20 Dose: 500 mg - Objective Vital Signs: Vital Signs Temperature 98.1 F 11/09/17 08:40 Pulse Rate 71 11/09/17 11:51 Respiratory Rate 20 11/09/17 08:40 Blood Pressure 146/71 11/09/17 08:40 O2 Sat by Pulse Oximetry (%) 99 11/09/17 11:51 Constitutional: Yes: Well Nourished, No Distress, Calm Cardiovascular: Yes: Pulse Irregular Respiratory: Yes: Regular, Rhonchi (diffuse), Other (trach collar) Gastrointestinal: Yes: Normal Bowel Sounds, Soft Musculoskeletal: Yes: WNL Extremities: Yes: WNL Edema: No Peripheral Pulses WNL: Yes Neurological: Yes: Alert Psychiatric: Yes: Alert Labs: CBC, BMP 11/09/17 07:27 11/09/17 07:27 INR, PTT INR 1.03 (0.82-1.09) 11/05/17 17:35 Problem List - Problems (1) Hyperglycemia Assessment/Plan: -BGM -Insulin -Endocrinology consult -restart feeding as per RD recommendation -repeat A1C 6.9 -d/c d5/NS/K Code(s): R73.9 - HYPERGLYCEMIA, UNSPECIFIED (2) Anemia Assessment/Plan: 2/2 to blood loss? or Chronic disease -Iron profile normal in Sep 2017 -hematology consult -monitor trend -stool OB Code(s): D64.9 - ANEMIA, UNSPECIFIED (3) Diabetes mellitus, insulin dependent (IDDM), uncontrolled Assessment/Plan: -A1c 6.9 -endocrinology consult -BGM -Insulin Code(s): E10.65 - TYPE 1 DIABETES MELLITUS WITH HYPERGLYCEMIA (4) Hematemesis Assessment/Plan: -seen by GI -H/H stabilized -check stool OB -has had EGD's in the past Code(s): K92.0 - HEMATEMESIS (5) Hypernatremia Assessment/Plan: -feedings and free water restarted -monitor trend -renal consult Code(s): E87.0 - HYPEROSMOLALITY AND HYPERNATREMIA Assessment/Plan see problem list
--- NOTE | 2017-11-09 14:27 | EKG ---
Test Reason : Blood Pressure : / mmHG Vent. Rate : 116 BPM Atrial Rate : 116 BPM P-R Int : 132 ms QRS Dur : 078 ms QT Int : 282 ms P-R-T Axes : 064 038 228 degrees QTc Int : 391 ms POOR DATA QUALITY, INTERPRETATION MAY BE ADVERSELY AFFECTED SINUS TACHYCARDIA POSSIBLE LEFT ATRIAL ENLARGEMENT ABNORMAL ECG Confirmed by MD JAMES, REINALDO ([id number]) on 11/09/2017 2:26:52 PM Referred By: Confirmed By:REINALDO RAMIREZ MD
[2017-11-09] MEDS: QUEtiapine FUMARATE 25 MG TABLET (FP) GT SCH (22:13)
[2017-11-09] MEDS: ATORVASTATIN CA 20 MG TABLET (FP) GT SCH (22:13)
[2017-11-09] MEDS: traZODone HCL 50 MG TABLET (FP) PEG SCH (22:13)
--- NOTE | 2017-11-09 23:51 | CON.NEP ---
Consult Consult Specialty:: nephrology Referred by:: bridger Reason for Consultation:: hypernatremia - History of Present Illness Chief Complaint: hematemesis. and hypernatremia History of Present Illness: s/p coffee ground emesis was "npo" with tube feeding on hold for a day or two promptly developed hypernatremia which has persisted chronic resp failure on vent via trache metastatic colon ca a fib h/o cva htn dm hypoalbuminemia 1.5 - History Source History Provided By: Patient Limitations to Obtaining History: Dementia - Past Medical History Cardio/Vascular: Yes: AFIB, HTN, Hyperlipdemia Gastrointestinal: Yes: Cancer (COLON), GERD Psych: Yes: Anxiety Endocrine: Yes: Diabetes Mellitus (ON INSULIN PUMP) - Past Surgical History Past Surgical History: Yes: Colectomy (2 YRS AGO COLON CA), Hernia Repair ( icisional) - Alcohol/Substance Use Hx Alcohol Use: No - Smoking History Smoking history: Unknown if ever smoked Have you smoked in the past 12 months: Yes Aproximately how many cigarettes per day: 0 - Social History Usual Living Arrangement: With Spouse ADL: Independent History of Recent Travel: No Home Medications - Allergies Allergies/Adverse Reactions: Allergies Allergy/AdvReac Type Severity Reaction Status Date / Time No Known Drug Allergies Allergy Verified 11/06/17 00:24 Medical Tape Allergy Uncoded 11/06/17 00:24 - Home Medications Home Medications: Ambulatory Orders Atorvastatin Ca [Lipitor] 20 mg PO HS #0 tablet 01/14/14 Apixaban [Eliquis -] 5 mg PO BID tablet 11/03/17 Digoxin [Lanoxin -] 0.125 mg PEG Q2D@1000 tablet 11/03/17 Diltiazem [Cardizem -] 90 mg NGT Q6HPO tablet 11/03/17 Divalproex [Depakote -] 500 mg PO BID #30 tablet.ec MDD 2 11/03/17 Insulin (Levemir) [Levemir Vial] 20 units SQ AM ml 11/03/17 Metoprolol Tartrate [Lopressor -] 50 mg NGT BID tablet 11/03/17 Mineral Oil/Petrolatum,White [Artificial Tears Ointment -] 1 applic OU BID tube 11/03/17 Mupirocin Ointment [Bactroban 2% Ointment -] 1 applic TP TID applic 11/03/17 Nystatin Ointment [Mycostatin Ointment -] 1 applic TP BID applic 11/03/17 Quetiapine Fumarate [Seroquel -] 25 mg PO HS tablet 11/03/17 traZODone HCL [Desyrel -] 50 mg PO HS tablet 11/03/17 Nephrology Consult - Height Height: 5 ft 3 in - Weight Weight: 173 lb 7 oz - BMI Body Mass Index (BMI): 30.7 - Lab Results CBC,BMP: CBC, BMP 11/09/17 07:27 11/09/17 07:27 Anion Gap: Anion Gap Anion Gap 14 (8-16) 11/09/17 07:27 - Physical Examination Vital Signs: Vital Signs Temperature 97.9 F 11/09/17 17:41 Pulse Rate 76 11/09/17 17:41 Respiratory Rate 20 11/09/17 17:41 Blood Pressure 134/58 11/09/17 17:41 O2 Sat by Pulse Oximetry (%) 99 11/09/17 11:51 Constitutional: Yes: Well Nourished Eyes: Yes: WNL Neck: Yes: WNL Cardiovascular: Yes: WNL Respiratory: Yes: WNL, Mechanically Ventilated Gastrointestinal: Yes: WNL Renal/: Yes: WNL Musculoskeletal: Yes: WNL Extremities: Yes: WNL Assessment/Plan hypernatremia s/p coffee ground emesis was "npo" with tube feeding on hold for a day or two chronic resp failure on vent via trache metastatic colon ca a fib h/o cva htn dm hypoalbuminemia 1.5 Plan- increase free water via g tube follow up bmp
[2017-11-10] MEDS: dilTIAZem HCL 30 MG TABLET (FP) GT SCH ×4 (00:04→17:42)
[2017-11-10] MEDS: INSULIN SLIDING SCALE (NOVOLOG) 1 VIAL SQ SCH ×4 (06:29→21:33)
[2017-11-10] MEDS: INSULIN DETEMIR 100 UNITS/ML MDV SQ SCH (06:29)
--- NOTE | 2017-11-10 10:11 | DS ---
Physical Examination Vital Signs: Vital Signs Temperature 98.4 F 11/10/17 06:00 Pulse Rate 78 11/10/17 08:13 Respiratory Rate 20 11/10/17 06:00 Blood Pressure 155/79 11/10/17 06:00 O2 Sat by Pulse Oximetry (%) 98 11/10/17 08:13 Constitutional: Yes: Calm Neck: Yes: Other (trach collar) Cardiovascular: Yes: Regular Rate and Rhythm, S1, S2 Respiratory: Yes: Rhonchi Gastrointestinal: Yes: Normal Bowel Sounds, Soft, Other (g tube) Edema: No Neurological: Yes: Alert, Oriented, Weakness Labs: CBC, BMP 11/09/17 07:27 11/09/17 07:27 Discharge Summary Reason For Visit: HYPERGLYCEMIA, COFFEE GROUND EMESIS Current Active Problems Chronic respiratory failure (Acute) Coffee ground emesis (Acute) Gastric ulcer (Acute) Hematemesis (Acute) Hyperglycemia (Acute) Hypokalemia (Acute) Hypomagnesemia (Acute) Hospital Course: CHIEF COMPLAINT: coffee ground emesis PCP: Po Medina HISTORY OF PRESENT ILLNESS: This is a 62 year old female with a past medical history significant for recent hospitalization 09/09-11/04/17 with 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 She was discharged to SNF yesterday and presents today with coffee ground emesis. Daughter reports that she doesn't believe pt has been receiving any insulin or had her BGM checked since arrival to the longterm. Daughter also expressing concern that the NH started pt on glucerna for tube feed although she had not tolerated it well in past. Pt reports feeling better at time of exam and denies any pain. No longer with coffee ground emesis. [facility] records reviewed. It appears that many of her discharge medications were omitted on [facility] admission as there are no medication orders for them: metoprolol, digoxin, diltiazem, depakote, levemir, atorvastatin. There is no indication of any order for BGMs as well. ER course was notable for: (1) Glucose 422 (2) WBC 10.3 Recent Travel: pt denies PAST MEDICAL HISTORY: HTN, HLD, ASHD, Afib, DM, CKD, colon CA with mets to lungs, anxiety, depression , CVA PAST SURGICAL HISTORY: mediport placed 08/18/17, removed 09/10/17 lap incisional hernia repair with lysis of adhesions 08/31/14 colon resection / colostomy 2011 with later colostomy reversal hysterectomy 1999 cholecystectomy 2004 Social History: Smoking: prior to recent hospitalization: 1/2 PPD, none since; h/o 1.5 ppd since age 15 Alcohol: pt denies Drugs: pt denies in hospital: seen by GI h/h stable on protonix anemia second to chronic disease has metastic colon cancer chronic resp failure s/p trach on trach collar developed hypernatremia on ivf and now much better DM [id number] 6.9 on insulin adjusted based on bgm chronic afib eliquis stoppped bc of coffe ground emesis Condition: Guarded - Instructions Referrals: Dejan Medina MD [Primary Care Provider] - Disposition: RESIDENTIAL FACILITY - Home Medications Comprehensive Discharge Medication List: Ambulatory Orders Atorvastatin Ca [Lipitor] 20 mg PO HS #0 tablet 01/14/14 Apixaban [Eliquis -] 5 mg PO BID tablet 11/03/17 Digoxin [Lanoxin -] 0.125 mg PEG Q2D@1000 tablet 11/03/17 Diltiazem [Cardizem -] 90 mg NGT Q6HPO tablet 11/03/17 Divalproex [Depakote -] 500 mg PO BID #30 tablet.ec MDD 2 11/03/17 Insulin (Levemir) [Levemir Vial] 20 units SQ AM ml 11/03/17 Metoprolol Tartrate [Lopressor -] 50 mg NGT BID tablet 11/03/17 Mineral Oil/Petrolatum,White [Artificial Tears Ointment -] 1 applic OU BID tube 11/03/17 Mupirocin Ointment [Bactroban 2% Ointment -] 1 applic TP TID applic 11/03/17 Nystatin Ointment [Mycostatin Ointment -] 1 applic TP BID applic 11/03/17 Quetiapine Fumarate [Seroquel -] 25 mg PO HS tablet 11/03/17 traZODone HCL [Desyrel -] 50 mg PO HS tablet 11/03/17
--- NOTE | 2017-11-10 10:17 | PN ---
Progress Note (short form) - Note Progress Note: GI and cardiology Follow up today regarding if patient needs eliquis for chornic afib FU BMP to see improvement on sodium level needs SNF placement family doesnot want [facility] pending insurance approval CM will look into other options dc plannig Problem List - Problems (1) Coffee ground emesis Code(s): K92.0 - HEMATEMESIS (2) Hypokalemia Code(s): E87.6 - HYPOKALEMIA (3) Gastric ulcer Code(s): K25.9 - GASTRIC ULCER, UNSP ACUTE OR CHRONIC, W/O HEMOR OR PERF Qualifiers: Gastric ulcer chronicity: chronic Gastric ulcer complication status: unspecified whether hemorrhage or perforation present Qualified Code(s): K25.7 - Chronic gastric ulcer without hemorrhage or perforation (4) Hypomagnesemia Code(s): E83.42 - HYPOMAGNESEMIA (5) Atrial fibrillation Code(s): I48.91 - UNSPECIFIED ATRIAL FIBRILLATION (6) CVA (cerebral vascular accident) Code(s): I63.9 - CEREBRAL INFARCTION, UNSPECIFIED Qualifiers: Laterality of affected vessel: unspecified (7) Diabetes Code(s): E11.9 - TYPE 2 DIABETES MELLITUS WITHOUT COMPLICATIONS Qualifiers: Diabetes mellitus type: type 2 (8) Respiratory failure Code(s): J96.90 - RESPIRATORY FAILURE, UNSP, UNSP W HYPOXIA OR HYPERCAPNIA
--- NOTE | 2017-11-10 10:21 | PN ---
Progress Note (short form) - Note Progress Note: PULMONARY Feels better today. Denies shortness of breath. No fevers recorded. Last Vital Signs Temp Pulse Resp BP Pulse Ox 98.4 F 78 20 155/79 98 11/10/17 06:00 11/10/17 08:13 11/10/17 06:00 11/10/17 06:00 11/10/17 08:13 Gen: NAD at rest Heart: RRR Lung: less scattered rhonchi Abd: soft, nontender Ext: no edema CBC, BMP 11/09/17 07:27 11/09/17 07:27 Active Medications Acetaminophen (Tylenol Oral Solution -) 650 mg GT Q6H PRN PRN Reason: pain 4-6 Last Admin: 11/07/17 18:53 Dose: 650 mg Artificial Tears (Artificial Tears Ointment -) 1 applic OU BID [facility] Last Admin: 11/09/17 22:13 Dose: 1 applic Atorvastatin Calcium (Lipitor -) 20 mg GT HS [facility] Last Admin: 11/09/17 22:13 Dose: 20 mg Digoxin (Lanoxin -) 0.125 mg PEG Q2D@1000 [facility] Last Admin: 11/08/17 10:25 Dose: 0.125 mg Diltiazem HCl (Cardizem -) 90 mg GT Q6HPO [facility] Last Admin: 11/10/17 05:39 Dose: 90 mg Dextrose (D5w -) 1,000 mls @ 42 mls/hr IV ASDIR [facility] Last Admin: 11/09/17 12:00 Dose: 42 mls/hr Insulin Aspart (Novolog Vial Sliding Scale -) 1 vial SQ TIDAC [facility] PRN Reason: Protocol Last Admin: 11/10/17 06:29 Dose: 6 unit Insulin Aspart (Novolog Vial Sliding Scale -) 1 vial SQ [facility] PRN Reason: Protocol Last Admin: 11/09/17 23:12 Dose: 2 units Insulin Detemir (Levemir Vial) 15 units SQ AM [facility] Last Admin: 11/10/17 06:29 Dose: 15 units Metoprolol Tartrate (Lopressor -) 50 mg GT BID [facility] Last Admin: 11/09/17 22:13 Dose: 50 mg Pantoprazole Sodium (Protonix Iv) 40 mg IVPUSH BID [facility] Last Admin: 11/09/17 22:13 Dose: 40 mg Quetiapine Fumarate (Seroquel -) 25 mg GT HS [facility] Last Admin: 11/09/17 22:13 Dose: 25 mg Trazodone HCl (Desyrel -) 50 mg PEG HS [facility] Last Admin: 11/09/17 22:13 Dose: 50 mg Valproate Sodium (Depakene -) 500 mg PEG BID [facility] Last Admin: 11/09/17 22:13 Dose: 500 mg A/P Coffee Ground Emesis resolved Chronic Respiratory Failure s/p tracheostomy Metastatic Colon Ca to lung Atrial Fibrillation h/o CVA HTN DM - continue hypotonic IVF, increase free water - protonix - monitor H/H - aspiration precautions - continue trach collar for now - can attempt PMV - swallow eval - inhaled bronchodilators - O2 to keep SpO2 >90% - rate controlled - continue anticoagulation when ok with GI - DVT prophylaxis Problem List - Problems (1) Coffee ground emesis Code(s): K92.0 - HEMATEMESIS (2) Hyperglycemia Code(s): R73.9 - HYPERGLYCEMIA, UNSPECIFIED (3) Chronic respiratory failure Code(s): J96.10 - CHRONIC RESPIRATORY FAILURE, UNSP W HYPOXIA OR HYPERCAPNIA (4) Atrial fibrillation Code(s): I48.91 - UNSPECIFIED ATRIAL FIBRILLATION (5) Diabetes Code(s): E11.9 - TYPE 2 DIABETES MELLITUS WITHOUT COMPLICATIONS (6) HLD (hyperlipidemia) Code(s): E78.5 - HYPERLIPIDEMIA, UNSPECIFIED (7) HTN (hypertension) Code(s): I10 - ESSENTIAL (PRIMARY) HYPERTENSION (8) Lung mass Code(s): R91.8 - OTHER NONSPECIFIC ABNORMAL FINDING OF LUNG FIELD (9) Metastatic colorectal cancer Code(s): C78.5 - SECONDARY MALIGNANT NEOPLASM OF LARGE INTESTINE AND RECTUM
--- NOTE | 2017-11-10 10:22 | PN ---
Progress Note, Physician History of Present Illness: No events. No signs of bleeding, per nurse. Pt appears comfortable, reports no abdominal pain, tenderness, nausea, or vomiting. - Current Medication List Current Medications: Active Medications Acetaminophen (Tylenol Oral Solution -) 650 mg GT Q6H PRN PRN Reason: pain 4-6 Last Admin: 11/07/17 18:53 Dose: 650 mg Artificial Tears (Artificial Tears Ointment -) 1 applic OU BID [facility] Last Admin: 11/09/17 22:13 Dose: 1 applic Atorvastatin Calcium (Lipitor -) 20 mg GT HS [facility] Last Admin: 11/09/17 22:13 Dose: 20 mg Digoxin (Lanoxin -) 0.125 mg PEG Q2D@1000 [facility] Last Admin: 11/08/17 10:25 Dose: 0.125 mg Diltiazem HCl (Cardizem -) 90 mg GT Q6HPO [facility] Last Admin: 11/10/17 05:39 Dose: 90 mg Dextrose (D5w -) 1,000 mls @ 42 mls/hr IV ASDIR [facility] Last Admin: 11/09/17 12:00 Dose: 42 mls/hr Insulin Aspart (Novolog Vial Sliding Scale -) 1 vial SQ TIDAC [facility] PRN Reason: Protocol Last Admin: 11/10/17 06:29 Dose: 6 unit Insulin Aspart (Novolog Vial Sliding Scale -) 1 vial SQ HS [facility] PRN Reason: Protocol Last Admin: 11/09/17 23:12 Dose: 2 units Insulin Detemir (Levemir Vial) 15 units SQ AM [facility] Last Admin: 11/10/17 06:29 Dose: 15 units Metoprolol Tartrate (Lopressor -) 50 mg GT BID [facility] Last Admin: 11/09/17 22:13 Dose: 50 mg Pantoprazole Sodium (Protonix Iv) 40 mg IVPUSH BID [facility] Last Admin: 11/09/17 22:13 Dose: 40 mg Quetiapine Fumarate (Seroquel -) 25 mg GT HS [facility] Last Admin: 11/09/17 22:13 Dose: 25 mg Trazodone HCl (Desyrel -) 50 mg PEG HS [facility] Last Admin: 11/09/17 22:13 Dose: 50 mg Valproate Sodium (Depakene -) 500 mg PEG BID [facility] Last Admin: 11/09/17 22:13 Dose: 500 mg - Objective Vital Signs: Vital Signs Temperature 98.4 F 11/10/17 06:00 Pulse Rate 78 11/10/17 08:13 Respiratory Rate 20 11/10/17 06:00 Blood Pressure 155/79 11/10/17 06:00 O2 Sat by Pulse Oximetry (%) 98 11/10/17 08:13 Constitutional: Yes: Well Nourished, No Distress, Calm Eyes: Yes: Conjunctiva Clear Neurological: Yes: Alert Labs: CBC, BMP 11/09/17 07:27 11/09/17 07:27 INR, PTT INR 1.03 (0.82-1.09) 11/05/17 17:35 CBCD WBC 7.0 K/mm3 (4.0-10.0) 11/09/17 07:27 RBC 3.17 M/mm3 (3.60-5.2) L 11/09/17 07:27 Hgb 9.4 GM/dL (10.7-15.3) L 11/09/17 07:27 Hct 27.4 % (32.4-45.2) L 11/09/17 07:27 MCV 86.4 fl (80-96) 11/09/17 07:27 MCHC 34.3 g/dl (32.0-36.0) 11/09/17 07:27 RDW 18.6 % (11.6-15.6) H 11/09/17 07:27 Plt Count 260 K/MM3 (134-434) 11/09/17 07:27 MPV 6.6 fl (7.5-11.1) L 11/09/17 07:27 CMP Sodium 148 mmol/L (136-145) H 11/09/17 07:27 Potassium 3.6 mmol/L (3.5-5.1) 11/09/17 07:27 Chloride 114 mmol/L (98-107) H 11/09/17 07:27 Carbon Dioxide 20 mmol/L (21-32) L 11/09/17 07:27 Anion Gap 14 (8-16) 11/09/17 07:27 BUN 8 mg/dL (7-18) 11/09/17 07:27 Creatinine 1.0 mg/dL (0.55-1.02) 11/09/17 07:27 Creat Clearance w eGFR 56.56 (>60) 11/09/17 07:27 Calcium 8.1 mg/dL (8.5-10.1) L 11/09/17 07:27 Total Bilirubin 0.2 mg/dL (0.2-1.0) D 11/09/17 07:27 AST 9 U/L (15-37) L 11/09/17 07:27 ALT 11 U/L (12-78) L 11/09/17 07:27 Alkaline Phosphatase 136 U/L (45-117) H 11/09/17 07:27 Total Protein 4.9 g/dl (6.4-8.2) L 11/09/17 07:27 Albumin 1.5 g/dl (3.4-5.0) L 11/09/17 07:27 Problem List - Problems (1) Coffee ground emesis Code(s): K92.0 - HEMATEMESIS Assessment/Plan No signs of bleeding. Hgb remains the same, stable. No acute, GI-related issues at this time OK to d/c from GI perspective
[2017-11-10] MEDS: VALPROATE SODIUM 250 MG/5 ML UNIT DOSE CUP PEG SCH ×2 (10:45→21:15)
[2017-11-10] MEDS: DIGOXIN 0.125 MG TABLET (FP) PEG SCH (10:45)
[2017-11-10] MEDS: METOPROLOL TARTRATE 50 MG TABLET (FP) GT SCH ×2 (10:46→21:15)
[2017-11-10 11:20] LABS: ALBUMIN 1.5 g/dl (3.4-5.0); ANION GAP 6 (8-16); BLOOD UREA NITROGEN 9 mg/dL (7-18); CALCIUM 7.9 mg/dL (8.5-10.1); CHLORIDE 110 mmol/L (98-107); CO2 26 mmol/L (21-32); GLUCOSE,RANDOM 279 mg/dL (74-106); POTASSIUM 3.5 mmol/L (3.5-5.1); SGOT/AST 7 U/L (15-37); SGPT/ALT 9 U/L (12-78); SODIUM 142 mmol/L (136-145)
[2017-11-10 11:22] LABS: ALK PHOS 125 U/L (45-117); BILIRUBIN,TOTAL 0.3 mg/dL (0.2-1.0); TOT PROT 4.8 g/dl (6.4-8.2)
[2017-11-10] MEDS ORDERED: PT OWN MED DRAWER 7, Y5N ONE ×2 (11:23→21:12)
[2017-11-10] MEDS: PANTOPRAZOLE SODIUM 40 MG VIAL IVPUSH SCH ×2 (11:46→21:15)
[2017-11-10] MEDS: MINERAL OIL/PETROLATUM,WHITE 3.5 GM TUBE OU SCH ×2 (11:55→21:34)
[2017-11-10] MEDS: DEXTROSE 5%-WATER - 1,000 ML IV SCH (11:58)
--- NOTE | 2017-11-10 14:33 | CON.CARD ---
Consult Consult Specialty:: cardiology Referred by:: Demian Reason for Consultation:: Shortness of breath - History of Present Illness Chief Complaint: Shortness of breath History of Present Illness: This is a 62 year old female w/ pmh of multiple acute embolic CVA, acute hypoxia , afib with RVR, metastatic colon ca, chronic renal failure, HTN, DM, HLD, enteral feeding with trach collar. She was recently sent from SNF for nausea with small volume vomiting with coffee ground emesis. Now being reevaluated for shortness of breath. The patient seems to be quite comfortable. Denies chest pains. - History Source History Provided By: Patient, Medical Record Limitations to Obtaining History: Poor Historian - Past Medical History Cardio/Vascular: Yes: AFIB, HTN, Hyperlipdemia Gastrointestinal: Yes: Cancer (COLON), GERD Psych: Yes: Anxiety Endocrine: Yes: Diabetes Mellitus (ON INSULIN PUMP) - Past Surgical History Past Surgical History: Yes: Colectomy (2 YRS AGO COLON CA), Hernia Repair ( icisional) - Alcohol/Substance Use Hx Alcohol Use: No - Smoking History Smoking history: Unknown if ever smoked Have you smoked in the past 12 months: Yes Aproximately how many cigarettes per day: 0 - Social History Usual Living Arrangement: With Spouse ADL: Independent History of Recent Travel: No Home Medications - Allergies Allergies/Adverse Reactions: Allergies Allergy/AdvReac Type Severity Reaction Status Date / Time No Known Drug Allergies Allergy Verified 11/06/17 00:24 Medical Tape Allergy Uncoded 11/06/17 00:24 - Home Medications Home Medications: Ambulatory Orders Atorvastatin Ca [Lipitor] 20 mg PO HS #0 tablet 01/14/14 Digoxin [Lanoxin -] 0.125 mg PEG Q2D@1000 tablet 11/03/17 Diltiazem [Cardizem -] 90 mg NGT Q6HPO tablet 11/03/17 Divalproex [Depakote -] 500 mg PO BID #30 tablet.ec MDD 2 11/03/17 Insulin (Levemir) [Levemir Vial] 20 units SQ AM ml 11/03/17 Metoprolol Tartrate [Lopressor -] 50 mg NGT BID tablet 11/03/17 Mineral Oil/Petrolatum,White [Artificial Tears Ointment -] 1 applic OU BID tube 11/03/17 Mupirocin Ointment [Bactroban 2% Ointment -] 1 applic TP TID applic 11/03/17 Nystatin Ointment [Mycostatin Ointment -] 1 applic TP BID applic 11/03/17 Quetiapine Fumarate [Seroquel -] 25 mg PO HS tablet 11/03/17 traZODone HCL [Desyrel -] 50 mg PO HS tablet 11/03/17 Insulin (Levemir) [Levemir Vial] 15 units SQ AM ml 11/10/17 Review of Systems - Review of Systems Constitutional: reports: Lethargy, Loss of Appetite, Malaise Eyes: reports: No Symptoms Neck: reports: No Symptoms Cardiovascular: reports: Shortness of Breath Respiratory: reports: SOB Gastrointestinal: reports: No Symptoms Genitourinary: reports: No Symptoms Breasts: reports: No Symptoms Reported Musculoskeletal: reports: No Symptoms Integumentary: reports: No Symptoms Neurological: reports: No Symptoms Endocrine: reports: No Symptoms Hematology/Lymphatic: reports: No Symptoms Psychiatric: reports: No Symptoms Vital Signs: Vital Signs Temperature 98.4 F 11/10/17 06:00 Pulse Rate 86 11/10/17 10:45 Respiratory Rate 20 11/10/17 06:00 Blood Pressure 155/79 11/10/17 06:00 O2 Sat by Pulse Oximetry (%) 98 11/10/17 08:13 Constitutional: Yes: No Distress, Calm Eyes: Yes: WNL HENT: Yes: WNL, Atraumatic, Normocephalic Neck: Yes: Other (Tracheostomy) Respiratory: Yes: Mechanically Ventilated Gastrointestinal: Yes: WNL, Normal Bowel Sounds, Soft Renal/: Yes: WNL Cardiovascular: Yes: Pulse Irregular JVD: No Carotid Bruit: No PMI: Non-Displaced Heart Sounds: Yes: S1, S2 Murmur: Yes: Systolic Murmur, Grade 2 Musculoskeletal: Yes: WNL Extremities: Yes: WNL Edema: No Peripheral Pulses: 1+ Left Carotid, 1+ Right Carotid, 1+ Left Femoral, 1+ Right Femoral, 1+ Left Popliteal, 1+ Right Popliteal, 1+ Left Doralis Pedis, 1+ Right Dorsalis Pedis Integumentary: Yes: WNL Neurological: Yes: WNL, Alert - Other Data Labs, Other Data: CBC, BMP 11/09/17 07:27 11/10/17 10:35 INR, PTT INR 1.03 (0.82-1.09) 11/05/17 17:35 Assessment/Plan 62-year-old female with advanced metastatic cancer, metastasis to the lungs, who looks quite comfortable at this point. The patient has mild pulmonary congestion. Would start Lasix 40 mg daily. Continue the other medications as currently. No need for further cardiac workup nor intervention at this point. Conservative cardiac care. The patient is comfortable and hemodynamically stable. Please do not hesitate to call us PRN
--- NOTE | 2017-11-10 15:19 | CONSULT ---
Admitting History and Physical - Primary Care Physician PCP: Ericka Burgos - Admission History of Present Illness: 62yF with PMH HTN, HLD, ASHD, Afib, DM, CKD, colon CA with mets to lungs, anxiety, depression, recent large CVA presented to the ED with coffee ground emesis which has now resolved. Known to me from last admission- 10/28/17 note : ENT consult: base of tongue WNL epiglottis WNL endolarynx: no lesions ++abundant clear secretions pooled in bilateral pyriform sinuses and laryngeal inlet mild edema of arytenoids and false cords true cords not fully visualized limited vocal cord abduction and adduction, bilateral weakness present. Trach secure, functioning Impression: laryngeal dysfunction s/p prolonged intubation, s/p tracheotomy respiratory failure improved, off ventilator metastatic carcinoma Recommend: continue trach care since cords are more adducted could try Pass[place] Valve, but will continue to require tracheotomy for airway. Suggested defferring PMV due to VC dysfunction.PMV trial 11/03/17 Sp path trialed PMV again.62 yo female seen at bedside for PMV eval. Family members present for this session. With valve in place, pt was able to tolerate with good O2 at 97% for 5 minutes. Pt began to complains feeling "hot " and anxiousness. Voice quality was characterized as hoarsen and breathy. Increase respirations and elevated heart rate observed. PMV removed. Pt vitals returned to normal. Pt's daughter reports that she has been giving pt ice chips, juice, soup, up until 2 days ago, but had not seen her for the last 2 days. She reports that she has more secretions today. 11/08 CXR- New congestive changes Selected Entries 10/29/17 10/29/17 10/29/17 02:00 06:00 08:47 Supper Temperature 97.8 F 97.8 F 98 F 10/29/17 10/29/17 10/29/17 09:53 10:36 12:30 Supper Temperature 99.2 F 101.5 F H 102.5 F H 10/29/17 10/29/17 10/30/17 14:54 19:52 06:00 Supper NPO Temperature 99.8 F H 98.2 F 10/30/17 11/09/17 07:30 19:51 Supper NPO Temperature 98.4 F Laboratory Tests 11/06/17 11/07/17 11/08/17 06:45 06:30 07:00 WBC 7.8 7.7 D 9.0 11/09/17 07:27 WBC 7.0 History Source: Patient, Family Member - Past Medical History Cardiovascular: Yes: AFIB, HTN, Hyperlipdemia Gastrointestinal: Yes: Cancer (COLON), GERD Heme/Onc: Yes: Cancer, Current Chemotherapy Psych: Yes: Anxiety Endocrine: Yes: Diabetes Mellitus (ON INSULIN PUMP) - Past Surgical History Past Surgical History: Yes: Colectomy (2 YRS AGO COLON CA), Hernia Repair ( icisional) - Smoking History Smoking history: Unknown if ever smoked Have you smoked in the past 12 months: Yes Aproximately how many cigarettes per day: 0 - Alcohol/Substance Use Hx Alcohol Use: No - Social History ADL: Independent History of Recent Travel: No History - Admission Reason For Visit: HYPERGLYCEMIA, COFFEE GROUND EMESIS - Diagnostics X-ray: Report Reviewed - General Mental Status: Awake and Alert, Able to Follow Commands Attention: Intact Ability to Follow Directions: Fair Head/Neck Control: Good - Hearing Hearing: Normal Hearing Aide: No With Patient: No Speech Evaluation - Communication Primary Language: MACEDONIAN - Speech Characteristics Articulation: Yes: Precise Recommendations - Speech Evaluation, Impression/Plan Impression: At present, with finger occlusion of tracheostomy with cuff deflated ,, NO AUDIBLE VOICING. During last admission, ENT assessment noted Vocal cords adducted,in midline. This would likely put pt at risk, unable to breathe out with PMV in place. Trial of PMV by sp path on 11/03/17, resulted in pt becoming anxious, hyperventilating, with elevated HR. Pt's daughter reports giving pt liquids, AMA, never instructed to give her liquid by speech pathology. - Disposition Discharge to: Care Home Facility - Dysphagia Impressions/Plan *Silent aspiration: cannot be R/O at bedside Recommendations: Modified Barium Swallow (Case reviewed with Dr. Barnett. MBS to r/ o aspiration), Passy [place] Valve, Other - Recommendations Diet Consistency: NPO Liquids: NPO, Other (Daughter educated on risk of aspiration and rec for npo until MBS performed.)
--- NOTE | 2017-11-10 15:27 | PN ---
Progress Note, Physician History of Present Illness: Pt seen and examined at bedside. She is awake and appears comfortable. She in on trache collar with oxygen. - Current Medication List Current Medications: Active Medications Acetaminophen (Tylenol Oral Solution -) 650 mg GT Q6H PRN PRN Reason: pain 4-6 Last Admin: 11/07/17 18:53 Dose: 650 mg Artificial Tears (Artificial Tears Ointment -) 1 applic OU BID [facility] Last Admin: 11/10/17 11:55 Dose: 1 applic Atorvastatin Calcium (Lipitor -) 20 mg GT HS [facility] Last Admin: 11/09/17 22:13 Dose: 20 mg Digoxin (Lanoxin -) 0.125 mg PEG Q2D@1000 [facility] Last Admin: 11/10/17 10:45 Dose: 0.125 mg Diltiazem HCl (Cardizem -) 90 mg GT Q6HPO [facility] Last Admin: 11/10/17 11:44 Dose: 90 mg Dextrose (D5w -) 1,000 mls @ 42 mls/hr IV ASDIR [facility] Last Admin: 11/10/17 11:58 Dose: 42 mls/hr Insulin Aspart (Novolog Vial Sliding Scale -) 1 vial SQ TIDAC [facility] PRN Reason: Protocol Last Admin: 11/10/17 12:00 Dose: 4 unit Insulin Aspart (Novolog Vial Sliding Scale -) 1 vial SQ HS [facility] PRN Reason: Protocol Last Admin: 11/09/17 23:12 Dose: 2 units Insulin Detemir (Levemir Vial) 15 units SQ AM [facility] Last Admin: 11/10/17 06:29 Dose: 15 units Metoprolol Tartrate (Lopressor -) 50 mg GT BID [facility] Last Admin: 11/10/17 10:46 Dose: 50 mg Pantoprazole Sodium (Protonix Iv) 40 mg IVPUSH BID [facility] Last Admin: 11/10/17 11:46 Dose: 40 mg Quetiapine Fumarate (Seroquel -) 25 mg GT HS [facility] Last Admin: 11/09/17 22:13 Dose: 25 mg Trazodone HCl (Desyrel -) 50 mg PEG HS [facility] Last Admin: 11/09/17 22:13 Dose: 50 mg Valproate Sodium (Depakene -) 500 mg PEG BID [facility] Last Admin: 11/10/17 10:45 Dose: 500 mg - Objective Vital Signs: Vital Signs Temperature 98.4 F 11/10/17 06:00 Pulse Rate 86 11/10/17 10:45 Respiratory Rate 20 11/10/17 06:00 Blood Pressure 155/79 11/10/17 06:00 O2 Sat by Pulse Oximetry (%) 98 11/10/17 08:13 Constitutional: Yes: Calm Eyes: Yes: Conjunctiva Clear HENT: Yes: Atraumatic Neck: Yes: Other (trache) Cardiovascular: Yes: S1, S2 Respiratory: Yes: Rhonchi Gastrointestinal: Yes: Soft, Other (peg) Genitourinary: Yes: Incontinence Musculoskeletal: Yes: Muscle Weakness Edema: No Neurological: Yes: Oriented, Pre-Existing Deficit Labs: CBC, BMP 11/09/17 07:27 11/10/17 10:35 INR, PTT INR 1.03 (0.82-1.09) 11/05/17 17:35 Problem List - Problems (1) CKD (chronic kidney disease) Code(s): N18.9 - CHRONIC KIDNEY DISEASE, UNSPECIFIED (2) Chronic respiratory failure Code(s): J96.10 - CHRONIC RESPIRATORY FAILURE, UNSP W HYPOXIA OR HYPERCAPNIA (3) Hypernatremia Code(s): E87.0 - HYPEROSMOLALITY AND HYPERNATREMIA Assessment/Plan Current Medications Generic Name Dose Route Start Last Admin Trade Name Freq PRN Reason Stop Dose Admin Acetaminophen 650 mg 11/06/17 19:17 11/07/17 18:53 Tylenol Oral Solution - GT 650 mg Q6H PRN Administration pain 4-6 Artificial Tears 1 applic 11/06/17 10:00 11/10/17 11:55 Artificial Tears Ointment - OU 1 applic BID [facility] Administration Atorvastatin Calcium 20 mg 11/06/17 22:00 11/09/17 22:13 Lipitor - GT 20 mg HS [facility] Administration Digoxin 0.125 mg 11/08/17 10:00 11/10/17 10:45 Lanoxin - PEG 0.125 mg Q2D@1000 [facility] Administration Diltiazem HCl 90 mg 11/06/17 00:00 11/10/17 11:44 Cardizem - GT 90 mg Q6HPO [facility] Administration Dextrose 1,000 mls @ 42 mls/hr 11/09/17 11:45 11/10/17 11:58 D5w - IV 42 mls/hr ASDIR [facility] Administration Insulin Aspart 1 vial 11/06/17 07:00 11/10/17 12:00 Novolog Vial Sliding Scale - SQ 4 unit TIDAC [facility] Administration Protocol Insulin Aspart 1 vial 11/09/17 22:00 11/09/17 23:12 Novolog Vial Sliding Scale - SQ 2 units HS [facility] Administration Protocol Insulin Detemir 15 units 11/09/17 07:00 11/10/17 06:29 Levemir Vial SQ 15 units AM [facility] Administration Metoprolol Tartrate 50 mg 11/06/17 10:00 11/10/17 10:46 Lopressor - GT 50 mg BID [facility] Administration Pantoprazole Sodium 40 mg 11/06/17 11:00 11/10/17 11:46 Protonix Iv IVPUSH 40 mg BID [facility] Administration Quetiapine Fumarate 25 mg 11/06/17 22:00 11/09/17 22:13 Seroquel - GT 25 mg HS [facility] Administration Trazodone HCl 50 mg 11/06/17 22:00 11/09/17 22:13 Desyrel - PEG 50 mg HS [facility] Administration Valproate Sodium 500 mg 11/06/17 22:00 11/10/17 10:45 Depakene - PEG 500 mg BID [facility] Administration Impression 1. CKD 2. hypernatremia 3. DM 4. htn 5. chol 6. chemo port malfunction 7. a-fib 8. lung mass 9. proteinuria 10. adenocarcinoma 11. CVA 12. chronic resp failure Plan - renal function is stable - cont free water with feeds - monitor serum sodium - discussed with daughter at bedside - pulm rehab Dr Llanos
--- NOTE | 2017-11-10 16:26 | CONSULT ---
Passy-[place] Valve Eval - Assessment Prior to PMV Placement Patient and/or family educated re PMV: Yes Mental Status: Awake, Alert Respiratory Rate: 78 O2 Sat by Pulse Oximetry (%): 98 Secretions: Small Amount (coughing but little to no secretions when suctioned.) Patient on Ventilator: No Patient on Trach Collar: Yes Suctioned: Yes Trach Type: Portex, Cuffed Trach Size: 7.0 Inner Cannula Removed: No Cuff Status: Deflated Passy-[place] Valve in Place - Speech Characteristics Voice Loudness: Excessive Variation Voice Pitch: Moderately High Voice Phonatory-based Quality: Weak (progressively aphonic over 2 min period), Harsh Speech Pattern: Impaired Speech Clarity: < 25% Nasal Resonance: Normal Articulation: Precise Voice, Other Observations: Inadequate Breath Support - Assessment with PMV in Place Pulse Rate: 81 O2 Sat by Pulse Oximetry (%): 98 Change in Mental Status with PMV in Place: Yes (Anxious, feeling hot, tachepneic , deteriorating voicing) Able to Manage Secretions: Yes Pt's subjective response to PMV: Yes: Difficulty Breathing, Anxiety Length of time with PMV in place: 2 min - Recommendations Recommendations: Other (PMV IS CONTRAINDICATED, unable to breathe out/ with cuff deflated and pmv in place.)
--- NOTE | 2017-11-10 16:31 | PN ---
Progress Note, SPRAY MACHINE TENDER - Note Progress Note: PMV IS CONTRAINDICATED, unable to breathe out/ with cuff deflated and pmv in place. Pt's daughter instructed to throw PMV away, as I am concerned the PMV will be placed and she will not be able to breathe, due to vocal cord dysfunction. Pt's daughter was angry and refused to throw out the pmv. She was also educated on strict NPO until MBS performed. pt's daughter, nursing landscape supervisor and primary nurse educated on the results and rec to discard pmv.
[2017-11-10] MEDS: ACETAMINOPHEN 650 MG/20.3 ML ORAL SOLUTION (CUPS) GT PRN (17:39)
[2017-11-10] MEDS: traZODone HCL 50 MG TABLET (FP) PEG SCH (21:15)
[2017-11-10] MEDS: ATORVASTATIN CA 20 MG TABLET (FP) GT SCH (21:15)
[2017-11-10] MEDS: QUEtiapine FUMARATE 25 MG TABLET (FP) GT SCH (21:16)
[2017-11-11] MEDS ORDERED: INSULIN (NOVOLOG) ASPART 100 UNITS/ML 10ML VIAL SQ ONE (02:42)
--- NOTE | 2017-11-11 02:48 | HOSP ---
Subjective - Review of Symptoms Events since last encounter: Hospitalist Encounter Notified by RN, patient's FS [phone] Per RN patient is receiving Tube feedings Vital 1.2 66ml/hr. Also on D5W for Hypernatremia Physical Examination Vital Signs: Vital Signs Temperature 98.1 F 11/10/17 22:00 Pulse Rate 76 11/10/17 22:00 Respiratory Rate 20 11/10/17 22:00 Blood Pressure 141/51 11/10/17 22:00 O2 Sat by Pulse Oximetry (%) 100 11/10/17 22:00 Labs: CBC, BMP 11/09/17 07:27 11/10/17 10:35 Laboratory Results - last 24 hr 11/10/17 11/10/17 11/10/17 03:12 06:25 10:35 Sodium 142 Potassium 3.5 Chloride 110 H Carbon Dioxide 26 Anion Gap 6 L BUN 9 Creatinine 1.0 Creat Clearance w eGFR 56.56 POC Glucometer 261 321 Random Glucose 279 H Calcium 7.9 L Total Bilirubin 0.3 D AST 7 L ALT 9 L Alkaline Phosphatase 125 H Total Protein 4.8 L Albumin 1.5 L 11/10/17 11/10/17 11/10/17 11:57 16:58 21:31 Sodium Potassium Chloride Carbon Dioxide Anion Gap BUN Creatinine Creat Clearance w eGFR POC Glucometer 296 276 244 Random Glucose Calcium Total Bilirubin AST ALT Alkaline Phosphatase Total Protein Albumin Intake & Output 11/08/17 11/09/17 11/10/17 11/11/17 23:59 23:59 23:59 23:59 Intake Total 1634 2906 1030 Balance 1634 2906 1030 Weight 77.337 kg Hospitalist Encounter Assessment: 62 y/o woman with a PMHx of: HTN, HLD, ASHD, Afib, DM, CKD, colon CA with mets to lungs, Anxiety, Depression, recent large CVA. Placed on Observation for GIB. Plan: Will hold IVF- D5W secondary to Na corrected Monitor BMP in am Continue with Tube feedings, no reports of emesis Novolog 5units SQ secondary Hyperglecemia 491 Repeat FS in 1hr Continue to monitor
[2017-11-11] MEDS: dilTIAZem HCL 30 MG TABLET (FP) GT SCH ×4 (06:43→17:12)
[2017-11-11] MEDS: INSULIN DETEMIR 100 UNITS/ML MDV SQ SCH (06:43)
[2017-11-11] MEDS: INSULIN SLIDING SCALE (NOVOLOG) 1 VIAL SQ SCH ×4 (06:44→21:24)
[2017-11-11 07:43] LABS: MAGNESIUM 1.6 mg/dL (1.8-2.4)
--- NOTE | 2017-11-11 10:09 | PN ---
Progress Note (short form) - Note Progress Note: PULMONARY Did not tolerate PMV yesterday due to respiratory distress. Last Vital Signs Temp Pulse Resp BP Pulse Ox 97.6 F 87 20 145/64 100 11/11/17 06:33 11/11/17 06:33 11/11/17 06:33 11/11/17 06:33 11/10/17 22:00 Gen: NAD at rest Heart: RRR Lung: less scattered rhonchi Abd: soft, nontender Ext: no edema CBC, BMP 11/09/17 07:27 11/11/17 03:30 Active Medications Acetaminophen (Tylenol Oral Solution -) 650 mg GT Q6H PRN PRN Reason: pain 4-6 Last Admin: 11/10/17 17:39 Dose: 650 mg Artificial Tears (Artificial Tears Ointment -) 1 applic OU BID [facility] Last Admin: 11/10/17 21:34 Dose: 1 applic Atorvastatin Calcium (Lipitor -) 20 mg GT HS [facility] Last Admin: 11/10/17 21:15 Dose: 20 mg Digoxin (Lanoxin -) 0.125 mg PEG Q2D@1000 [facility] Last Admin: 11/10/17 10:45 Dose: 0.125 mg Diltiazem HCl (Cardizem -) 90 mg GT Q6HPO [facility] Last Admin: 11/11/17 06:43 Dose: 90 mg Dextrose (D5w -) 1,000 mls @ 42 mls/hr IV ASDIR [facility] Last Admin: 11/10/17 11:58 Dose: 42 mls/hr Insulin Aspart (Novolog Vial Sliding Scale -) 1 vial SQ TIDAC [facility] PRN Reason: Protocol Last Admin: 11/11/17 06:44 Dose: 8 unit Insulin Aspart (Novolog Vial Sliding Scale -) 1 vial SQ HS [facility] PRN Reason: Protocol Last Admin: 11/10/17 21:33 Dose: Not Given Insulin Detemir (Levemir Vial) 15 units SQ AM [facility] Last Admin: 11/11/17 06:43 Dose: 15 units Metoprolol Tartrate (Lopressor -) 50 mg GT BID [facility] Last Admin: 11/10/17 21:15 Dose: 50 mg Pantoprazole Sodium (Protonix Iv) 40 mg IVPUSH BID [facility] Last Admin: 11/10/17 21:15 Dose: 40 mg Quetiapine Fumarate (Seroquel -) 25 mg GT HS [facility] Last Admin: 11/10/17 21:16 Dose: 25 mg Trazodone HCl (Desyrel -) 50 mg PEG HS [facility] Last Admin: 11/10/17 21:15 Dose: 50 mg Valproate Sodium (Depakene -) 500 mg PEG BID [facility] Last Admin: 11/10/17 21:15 Dose: 500 mg A/P Coffee Ground Emesis resolved Chronic Respiratory Failure s/p tracheostomy Metastatic Colon Ca to lung Atrial Fibrillation h/o CVA HTN DM - will order modified barium swallow - protonix - monitor H/H - aspiration precautions - continue trach collar for now - inhaled bronchodilators - O2 to keep SpO2 >90% - rate controlled - continue anticoagulation when ok with GI - DVT prophylaxis Problem List - Problems (1) Coffee ground emesis Code(s): K92.0 - HEMATEMESIS (2) Hyperglycemia Code(s): R73.9 - HYPERGLYCEMIA, UNSPECIFIED (3) Chronic respiratory failure Code(s): J96.10 - CHRONIC RESPIRATORY FAILURE, UNSP W HYPOXIA OR HYPERCAPNIA (4) Atrial fibrillation Code(s): I48.91 - UNSPECIFIED ATRIAL FIBRILLATION (5) Diabetes Code(s): E11.9 - TYPE 2 DIABETES MELLITUS WITHOUT COMPLICATIONS Qualifiers: Diabetes mellitus type: type 2 (6) HLD (hyperlipidemia) Code(s): E78.5 - HYPERLIPIDEMIA, UNSPECIFIED (7) HTN (hypertension) Code(s): I10 - ESSENTIAL (PRIMARY) HYPERTENSION (8) Lung mass Code(s): R91.8 - OTHER NONSPECIFIC ABNORMAL FINDING OF LUNG FIELD (9) Metastatic colorectal cancer Code(s): C78.5 - SECONDARY MALIGNANT NEOPLASM OF LARGE INTESTINE AND RECTUM
--- NOTE | 2017-11-11 10:19 | PN ---
Progress Note, Physician Chief Complaint: hematemesis History of Present Illness: NAD, alert and oriented no N/V H/H stable, seen by GI -failed PMV trial -as per noted, daughter had been giving patient PO intake against medical advice or Speech Therapy During last admission, ENT assessment noted Vocal cords adducted,in midline. This would likely put pt at risk, unable to breathe out with PMV in place. Trial of PMV by sp path on 11/03/17, resulted in pt becoming anxious, hyperventilating, with elevated HR. CXR from 11/08/17 showed increased congestion, d/c IVF recheck labs today - Current Medication List Current Medications: Active Medications Acetaminophen (Tylenol Oral Solution -) 650 mg GT Q6H PRN PRN Reason: pain 4-6 Last Admin: 11/10/17 17:39 Dose: 650 mg Artificial Tears (Artificial Tears Ointment -) 1 applic OU BID [facility] Last Admin: 11/10/17 21:34 Dose: 1 applic Atorvastatin Calcium (Lipitor -) 20 mg GT HS [facility] Last Admin: 11/10/17 21:15 Dose: 20 mg Digoxin (Lanoxin -) 0.125 mg PEG Q2D@1000 [facility] Last Admin: 11/10/17 10:45 Dose: 0.125 mg Diltiazem HCl (Cardizem -) 90 mg GT Q6HPO [facility] Last Admin: 11/11/17 06:43 Dose: 90 mg Insulin Aspart (Novolog Vial Sliding Scale -) 1 vial SQ TIDAC [facility] PRN Reason: Protocol Last Admin: 11/11/17 06:44 Dose: 8 unit Insulin Aspart (Novolog Vial Sliding Scale -) 1 vial SQ HS [facility] PRN Reason: Protocol Last Admin: 11/10/17 21:33 Dose: Not Given Insulin Detemir (Levemir Vial) 15 units SQ AM [facility] Last Admin: 11/11/17 06:43 Dose: 15 units Magnesium Oxide (Mag-Ox -) 400 mg GT BID [facility] Metoprolol Tartrate (Lopressor -) 50 mg GT BID [facility] Last Admin: 11/10/17 21:15 Dose: 50 mg Pantoprazole Sodium (Protonix Iv) 40 mg IVPUSH BID [facility] Last Admin: 11/10/17 21:15 Dose: 40 mg Quetiapine Fumarate (Seroquel -) 25 mg GT HS [facility] Last Admin: 11/10/17 21:16 Dose: 25 mg Trazodone HCl (Desyrel -) 50 mg PEG HS [facility] Last Admin: 11/10/17 21:15 Dose: 50 mg Valproate Sodium (Depakene -) 500 mg PEG BID [facility] Last Admin: 11/10/17 21:15 Dose: 500 mg - Objective Vital Signs: Vital Signs Temperature 97.6 F 11/11/17 06:33 Pulse Rate 87 11/11/17 06:33 Respiratory Rate 20 11/11/17 06:33 Blood Pressure 145/64 11/11/17 06:33 O2 Sat by Pulse Oximetry (%) 100 11/10/17 22:00 Constitutional: Yes: Well Nourished, No Distress, Calm Cardiovascular: Yes: Regular Rate and Rhythm Respiratory: Yes: Regular, Rhonchi (diffuse), Wheezes (BLL) Gastrointestinal: Yes: Normal Bowel Sounds, Soft, Other (feeding tube) Musculoskeletal: Yes: WNL Extremities: Yes: WNL Edema: No Peripheral Pulses WNL: Yes Neurological: Yes: Alert Psychiatric: Yes: Alert Labs: CBC, BMP 11/09/17 07:27 11/11/17 03:30 INR, PTT INR 1.03 (0.82-1.09) 11/05/17 17:35 Problem List - Problems (1) Hyperglycemia Assessment/Plan: -BGM -Insulin -Endocrinology consult -feeding as per RD recommendation -repeat A1C 6.9 -d/c IVF Code(s): R73.9 - HYPERGLYCEMIA, UNSPECIFIED (2) Anemia Assessment/Plan: -stable at this time -2/2 to blood loss? or Chronic disease -Iron profile normal in Sep 2017 -hematology consult -monitor trend -stool OB pending Code(s): D64.9 - ANEMIA, UNSPECIFIED (3) Diabetes mellitus, insulin dependent (IDDM), uncontrolled Assessment/Plan: -A1c 6.9 -endocrinology consult -BGM -Insulin Code(s): E10.65 - TYPE 1 DIABETES MELLITUS WITH HYPERGLYCEMIA (4) Hematemesis Assessment/Plan: -seen by GI -H/H stabilized -check stool OB -has had EGD's in the past Code(s): K92.0 - HEMATEMESIS (5) Hypernatremia Assessment/Plan: -resolved -feedings and free water restarted -monitor trend -renal consult appreciated Code(s): E87.0 - HYPEROSMOLALITY AND HYPERNATREMIA (6) Chronic respiratory failure Assessment/Plan: -seen by Pulmonary -on Trach collar -Increased congestion on CXR 11/08/17 -repeat CXR in AM -For Barium Swallow today, avoid any PO intake until further evaluation -seen by Speech Therapy -Bronchodilators Code(s): J96.10 - CHRONIC RESPIRATORY FAILURE, UNSP W HYPOXIA OR HYPERCAPNIA Assessment/Plan -see problem list -GI prophylaxis -DVT pophylaxis -Physical therapy
[2017-11-11 10:34] LABS: CHLORIDE 106 mmol/L (98-107); POTASSIUM 3.2 mmol/L (3.5-5.1); SODIUM 139 mmol/L (136-145)
[2017-11-11 10:37] LABS: HEMATOCRIT 25.7 % (32.4-45.2); HEMOGLOBIN 8.7 GM/dL (10.7-15.3); MCH 29.7 pg (25.7-33.7); MEAN CELL VOLUME 87.3 fl (80-96); MEAN PLT VOLUME 6.7 fl (7.5-11.1); PLATELET COUNT 245 K/MM3 (134-434); RBC 2.94 M/mm3 (3.60-5.2); RDW 19.4 % (11.6-15.6); WHITE BLOOD COUNT 10.4 K/mm3 (4.0-10.0)
[2017-11-11 11:08] LABS: ALBUMIN 1.7 g/dl (3.4-5.0); ALK PHOS 121 U/L (45-117); ANION GAP 12 (8-16); BILIRUBIN,TOTAL 0.2 mg/dL (0.2-1.0); BLOOD UREA NITROGEN 13 mg/dL (7-18); CALCIUM 8.1 mg/dL (8.5-10.1); CO2 21 mmol/L (21-32); CREATININE 1.1 mg/dL (0.55-1.02); SGOT/AST 8 U/L (15-37); SGPT/ALT 9 U/L (12-78); TOT PROT 4.9 g/dl (6.4-8.2)
[2017-11-11 11:20] LABS: GLUCOSE,RANDOM 375 mg/dL (74-106)
[2017-11-11] MEDS ORDERED: PT OWN MED DRAWER 7, Y5N ONE ×2 (11:28→20:55)
[2017-11-11] MEDS: METOPROLOL TARTRATE 50 MG TABLET (FP) GT SCH ×2 (11:32→21:09)
[2017-11-11] MEDS: VALPROATE SODIUM 250 MG/5 ML UNIT DOSE CUP PEG SCH ×2 (11:32→21:07)
[2017-11-11] MEDS: MAGNESIUM OXIDE 400 MG TABLET (FP) GT SCH ×2 (11:33→21:09)
[2017-11-11] MEDS ORDERED: INSULIN (NOVOLOG) ASPART 100 UNITS/ML 10ML VIAL ONE ×2 (12:00→21:21)
[2017-11-11] MEDS: MINERAL OIL/PETROLATUM,WHITE 3.5 GM TUBE OU SCH ×2 (12:03→21:10)
[2017-11-11 12:07] LABS: ANISOCYTOSIS 1+; PLATELET ESTIMATE NORMAL
[2017-11-11] MEDS: PANTOPRAZOLE SODIUM 40 MG VIAL IVPUSH SCH (14:43)
--- NOTE | 2017-11-11 16:09 | PN ---
Progress Note, Physician History of Present Illness: Pt seen and examined at bedside. She is awake and appears comfortable. - Current Medication List Current Medications: Active Medications Acetaminophen (Tylenol Oral Solution -) 650 mg GT Q6H PRN PRN Reason: pain 4-6 Last Admin: 11/10/17 17:39 Dose: 650 mg Albuterol/Ipratropium (Duoneb -) 1 amp NEB Q6H PRN PRN Reason: SHORTNESS OF BREATH Artificial Tears (Artificial Tears Ointment -) 1 applic OU BID [facility] Last Admin: 11/11/17 12:03 Dose: 1 applic Atorvastatin Calcium (Lipitor -) 20 mg GT HS [facility] Last Admin: 11/10/17 21:15 Dose: 20 mg Digoxin (Lanoxin -) 0.125 mg PEG Q2D@1000 [facility] Last Admin: 11/10/17 10:45 Dose: 0.125 mg Diltiazem HCl (Cardizem -) 90 mg GT Q6HPO [facility] Last Admin: 11/11/17 11:32 Dose: 90 mg Insulin Aspart (Novolog Vial Sliding Scale -) 1 vial SQ TIDAC [facility] PRN Reason: Protocol Last Admin: 11/11/17 12:02 Dose: 10 unit Insulin Aspart (Novolog Vial Sliding Scale -) 1 vial SQ HS [facility] PRN Reason: Protocol Last Admin: 11/10/17 21:33 Dose: Not Given Insulin Detemir (Levemir Vial) 15 units SQ AM [facility] Last Admin: 11/11/17 06:43 Dose: 15 units Magnesium Oxide (Mag-Ox -) 400 mg GT BID [facility] Last Admin: 11/11/17 11:33 Dose: 400 mg Metoprolol Tartrate (Lopressor -) 50 mg GT BID [facility] Last Admin: 11/11/17 11:32 Dose: 50 mg Pantoprazole Sodium (Protonix Packets For Oral Suspension -) 20 mg PO DAILY [facility] Potassium Chloride (Potassium Chloride Oral Liquid) 40 meq PEG ONCE ONE Stop: 11/11/17 16:06 Quetiapine Fumarate (Seroquel -) 25 mg GT HS [facility] Last Admin: 11/10/17 21:16 Dose: 25 mg Trazodone HCl (Desyrel -) 50 mg PEG [facility] Last Admin: 11/10/17 21:15 Dose: 50 mg Valproate Sodium (Depakene -) 500 mg PEG BID [facility] Last Admin: 11/11/17 11:32 Dose: 500 mg - Objective Vital Signs: Vital Signs Temperature 98.0 F 11/11/17 14:37 Pulse Rate 69 11/11/17 14:37 Respiratory Rate 18 11/11/17 14:37 Blood Pressure 136/70 11/11/17 14:37 O2 Sat by Pulse Oximetry (%) 100 11/10/17 22:00 Constitutional: Yes: Calm Eyes: Yes: Conjunctiva Clear HENT: Yes: Atraumatic Neck: Yes: Other (trache) Cardiovascular: Yes: S1, S2 Gastrointestinal: Yes: Other (peg) Musculoskeletal: Yes: WNL Edema: No Neurological: Yes: Oriented Labs: CBC, BMP 11/11/17 10:15 11/11/17 06:43 INR, PTT INR 1.03 (0.82-1.09) 11/05/17 17:35 Problem List - Problems (1) CKD (chronic kidney disease) Code(s): N18.9 - CHRONIC KIDNEY DISEASE, UNSPECIFIED (2) Chronic respiratory failure Code(s): J96.10 - CHRONIC RESPIRATORY FAILURE, UNSP W HYPOXIA OR HYPERCAPNIA (3) Hypernatremia Code(s): E87.0 - HYPEROSMOLALITY AND HYPERNATREMIA Assessment/Plan Current Medications Generic Name Dose Route Start Last Admin Trade Name Luis Albertoq PRN Reason Stop Dose Admin Acetaminophen 650 mg 11/06/17 19:17 11/10/17 17:39 Tylenol Oral Solution - GT 650 mg Q6H PRN Administration pain 4-6 Albuterol/Ipratropium 1 amp 11/11/17 10:28 Duoneb - NEB Q6H PRN SHORTNESS OF BREATH Artificial Tears 1 applic 11/06/17 10:00 11/11/17 12:03 Artificial Tears Ointment - OU 1 applic BID [facility] Administration Atorvastatin Calcium 20 mg 11/06/17 22:00 11/10/17 21:15 Lipitor - GT 20 mg HS [facility] Administration Digoxin 0.125 mg 11/08/17 10:00 11/10/17 10:45 Lanoxin - PEG 0.125 mg Q2D@1000 [facility] Administration Diltiazem HCl 90 mg 11/06/17 00:00 11/11/17 11:32 Cardizem - GT 90 mg Q6HPO [facility] Administration Insulin Aspart 1 vial 11/06/17 07:00 11/11/17 12:02 Novolog Vial Sliding Scale - SQ 10 unit TIDAC [facility] Administration Protocol Insulin Aspart 1 vial 11/09/17 22:00 11/10/17 21:33 Novolog Vial Sliding Scale - SQ Not Given HS [facility] Protocol Insulin Detemir 15 units 11/09/17 07:00 11/11/17 06:43 Levemir Vial SQ 15 units AM [facility] Administration Magnesium Oxide 400 mg 11/11/17 11:00 11/11/17 11:33 Mag-Ox - GT 400 mg BID [facility] Administration Magnesium Sulfate 1 gm 11/11/17 16:06 Magnesium Sulfate IVPB 11/11/17 16:07 ONCE ONE Metoprolol Tartrate 50 mg 11/06/17 10:00 11/11/17 11:32 Lopressor - GT 50 mg BID [facility] Administration Pantoprazole Sodium 20 mg 11/12/17 10:00 Protonix Packets For Oral Suspension - PO DAILY [facility] Potassium Chloride 40 meq 11/11/17 16:05 Potassium Chloride Oral Liquid PEG 11/11/17 16:06 ONCE ONE Quetiapine Fumarate 25 mg 11/06/17 22:00 11/10/17 21:16 Seroquel - GT 25 mg HS [facility] Administration Trazodone HCl 50 mg 11/06/17 22:00 11/10/17 21:15 Desyrel - PEG 50 mg HS [facility] Administration Valproate Sodium 500 mg 11/06/17 22:00 11/11/17 11:32 Depakene - PEG 500 mg BID [facility] Administration Impression 1. CKD 2. hypernatremia 3. DM 4. htn 5. chol 6. chemo port malfunction 7. a-fib 8. lung mass 9. proteinuria 10. adenocarcinoma 11. CVA 12. chronic resp failure 13. hypokalemia Plan - replace potassium - replace mag - renal functio is stable - follow swallow eval - sodium stable - pulm rehab Dr Llanos
[2017-11-11] MEDS ORDERED: POTASSIUM CHLORIDE ORAL LIQUID 20 MEQ/15 ML PEG ONE (16:30)
[2017-11-11] MEDS ORDERED: MAGNESIUM SULF 50% (8.12 MEQ/2 ML-1 GM VIAL) IVPB ONE (16:45)
[2017-11-11] MEDS: ACETAMINOPHEN 650 MG/20.3 ML ORAL SOLUTION (CUPS) GT PRN (17:12)
[2017-11-11] MEDS: traZODone HCL 50 MG TABLET (FP) PEG SCH (21:07)
[2017-11-11] MEDS: ATORVASTATIN CA 20 MG TABLET (FP) GT SCH (21:08)
[2017-11-11] MEDS: QUEtiapine FUMARATE 25 MG TABLET (FP) GT SCH (21:10)
[2017-11-12] MEDS: ALBUTEROL SO4 2.5/IPRATROPIUM 0.5 INH SOL 3 ML VIAL.NEB. NEB PRN ×2 (05:44→16:53)
[2017-11-12] MEDS: dilTIAZem HCL 30 MG TABLET (FP) GT SCH ×4 (06:27→17:46)
[2017-11-12] MEDS: INSULIN SLIDING SCALE (NOVOLOG) 1 VIAL SQ SCH ×4 (06:27→21:51)
[2017-11-12] MEDS: INSULIN DETEMIR 100 UNITS/ML MDV SQ SCH ×2 (06:28→21:44)
--- NOTE | 2017-11-12 07:54 | DS ---
Physical Examination Vital Signs: Vital Signs Temperature 97.9 F 11/12/17 06:48 Pulse Rate 85 11/12/17 06:48 Respiratory Rate 20 11/12/17 06:48 Blood Pressure 140/74 11/12/17 06:48 O2 Sat by Pulse Oximetry (%) 99 11/12/17 05:43 Findings/Remarks: asleep comfortable chart and notes reviewed bgm high will add qhs levemir dose Constitutional: Yes: No Distress Eyes: Yes: WNL HENT: Yes: WNL Neck: Yes: WNL Cardiovascular: Yes: Pulse Irregular Respiratory: Yes: Mechanically Ventilated Gastrointestinal: Yes: Other Renal/: Yes: WNL, Incontinence Musculoskeletal: Yes: Muscle Weakness Extremities: Yes: Other Edema: Yes Peripheral Pulses WNL: Yes Integumentary: Yes: Other Wound/Incision: Yes: Dressing Dry and Intact Neurological: Yes: Pre-Existing Deficit, Weakness ...Motor Strength: LLE, RLE Psychiatric: Yes: Other Discharge Summary Reason For Visit: HYPERGLYCEMIA, COFFEE GROUND EMESIS Current Active Problems CKD (chronic kidney disease) (Acute) Chronic respiratory failure (Acute) Coffee ground emesis (Acute) Gastric ulcer (Acute) Hematemesis (Acute) Hyperglycemia (Acute) Hypokalemia (Acute) Hypomagnesemia (Acute) Procedures: Principal: dysphagia, cva old, breast cancer, colon cancer with mets , on trach collar vent dependent Hospital Course: see above Condition: Guarded - Instructions Referrals: Dejan Medina MD [Primary Care Provider] - Disposition: INTERMEDIATE FACILITY - Home Medications Comprehensive Discharge Medication List: Ambulatory Orders Atorvastatin Ca [Lipitor] 20 mg PO HS #0 tablet 01/14/14 Digoxin [Lanoxin -] 0.125 mg PEG Q2D@1000 tablet 11/03/17 Diltiazem [Cardizem -] 90 mg NGT Q6HPO tablet 11/03/17 Divalproex [Depakote -] 500 mg PO BID #30 tablet.ec MDD 2 11/03/17 Insulin (Levemir) [Levemir Vial] 20 units SQ AM ml 11/03/17 Metoprolol Tartrate [Lopressor -] 50 mg NGT BID tablet 11/03/17 Mineral Oil/Petrolatum,White [Artificial Tears Ointment -] 1 applic OU BID tube 11/03/17 Mupirocin Ointment [Bactroban 2% Ointment -] 1 applic TP TID applic 11/03/17 Nystatin Ointment [Mycostatin Ointment -] 1 applic TP BID applic 11/03/17 Quetiapine Fumarate [Seroquel -] 25 mg PO HS tablet 11/03/17 traZODone HCL [Desyrel -] 50 mg PO HS tablet 11/03/17 Insulin (Levemir) [Levemir Vial] 15 units SQ AM ml 11/10/17
[2017-11-12 08:09] LABS: SERUM IRON SATURATION 33 % (15-55); TOTAL IRON BINDING CAPACITY 187 ug/dL (250-450); UIBC 126 ug/dL (131-425)
[2017-11-12 08:09] LABS: HEMATOCRIT 23.2 % (32.4-45.2); MCHC 34.5 g/dl (32.0-36.0); MEAN PLT VOLUME 6.6 fl (7.5-11.1); PLATELET COUNT 231 K/MM3 (134-434); RBC 2.66 M/mm3 (3.60-5.2); RDW 19.2 % (11.6-15.6); WHITE BLOOD COUNT 9.1 K/mm3 (4.0-10.0)
[2017-11-12 08:35] LABS: ALBUMIN 1.5 g/dl (3.4-5.0); ANION GAP 7 (8-16); BLOOD UREA NITROGEN 16 mg/dL (7-18); CALCIUM 8.1 mg/dL (8.5-10.1); CHLORIDE 104 mmol/L (98-107); CO2 27 mmol/L (21-32); GLUCOSE,RANDOM 427 mg/dL (74-106); MAGNESIUM 1.6 mg/dL (1.8-2.4); POTASSIUM 3.6 mmol/L (3.5-5.1); SODIUM 138 mmol/L (136-145)
[2017-11-12 08:40] LABS: ALK PHOS 114 U/L (45-117); BILIRUBIN,TOTAL 0.3 mg/dL (0.2-1.0); CREATININE 1.1 mg/dL (0.55-1.02); SGOT/AST 7 U/L (15-37); SGPT/ALT 9 U/L (12-78); TOT PROT 4.7 g/dl (6.4-8.2)
[2017-11-12] MEDS ORDERED: PT OWN MED DRAWER 7, Y5N ONE ×2 (09:32→21:50)
[2017-11-12] MEDS: PANTOPRAZOLE SOD 40 MG SUSPENSION PACKET PO SCH (09:35)
[2017-11-12] MEDS: DIGOXIN 0.125 MG TABLET (FP) PEG SCH (09:35)
[2017-11-12] MEDS: METOPROLOL TARTRATE 50 MG TABLET (FP) GT SCH ×2 (09:35→21:43)
[2017-11-12] MEDS: VALPROATE SODIUM 250 MG/5 ML UNIT DOSE CUP PEG SCH ×2 (09:36→21:43)
[2017-11-12] MEDS: MINERAL OIL/PETROLATUM,WHITE 3.5 GM TUBE OU SCH ×2 (09:37→21:55)
[2017-11-12 09:38] LABS: ANISOCYTOSIS 1+; PLATELET ESTIMATE NORMAL
[2017-11-12] MEDS: MAGNESIUM OXIDE 400 MG TABLET (FP) GT SCH ×2 (09:38→21:46)
--- NOTE | 2017-11-12 10:04 | PN ---
Progress Note (short form) - Note Progress Note: PULMONARY VSS/AWAKE /ALERT TOLERATING TRACH COLLAR/NOT PMV ANICTERIC/TRACH IN PLACE CHEST CLEAR S1S2 BS+ NO EDEMA LABS/MEDS/NOTES/IMAGES/MBS/ NOTED Coffee Ground Emesis resolved Chronic Respiratory Failure s/p tracheostomy Metastatic Colon Ca to lung Atrial Fibrillation h/o CVA HTN DM - glycemic control - IVF as needed - protonix - monitor H/H - aspiration precautions - continue trach collar for now - inhaled bronchodilators - O2 to keep SpO2 >90% - continue anticoagulation when ok with GI - DVT prophylaxis Marley WILSON MD
--- NOTE | 2017-11-12 12:01 | PN ---
Progress Note, Physician History of Present Illness: No events. No signs of bleeding, per nurse. Pt appears comfortable, reports no abdominal pain, tenderness, nausea, or vomiting. Didn't tolerate po. - Current Medication List Current Medications: Active Medications Acetaminophen (Tylenol Oral Solution -) 650 mg GT Q6H PRN PRN Reason: pain 4-6 Last Admin: 11/11/17 17:12 Dose: 650 mg Albuterol/Ipratropium (Duoneb -) 1 amp NEB Q6H PRN PRN Reason: SHORTNESS OF BREATH Last Admin: 11/12/17 05:44 Dose: 1 amp Artificial Tears (Artificial Tears Ointment -) 1 applic OU BID [facility] Last Admin: 11/12/17 09:37 Dose: 1 applic Atorvastatin Calcium (Lipitor -) 20 mg GT HS [facility] Last Admin: 11/11/17 21:08 Dose: 20 mg Digoxin (Lanoxin -) 0.125 mg PEG Q2D@1000 [facility] Last Admin: 11/12/17 09:35 Dose: 0.125 mg Diltiazem HCl (Cardizem -) 90 mg GT Q6HPO [facility] Last Admin: 11/12/17 11:54 Dose: 90 mg Insulin Aspart (Novolog Vial Sliding Scale -) 1 vial SQ TIDAC [facility] PRN Reason: Protocol Last Admin: 11/12/17 11:56 Dose: 8 unit Insulin Aspart (Novolog Vial Sliding Scale -) 1 vial SQ HS [facility] PRN Reason: Protocol Last Admin: 11/11/17 21:24 Dose: 2 units Insulin Detemir (Levemir Vial) 10 units SQ HS [facility] Insulin Detemir (Levemir Vial) 20 units SQ AM [facility] Magnesium Oxide (Mag-Ox -) 400 mg GT BID [facility] Last Admin: 11/12/17 09:38 Dose: 400 mg Metoprolol Tartrate (Lopressor -) 50 mg GT BID [facility] Last Admin: 11/12/17 09:35 Dose: 50 mg Pantoprazole Sodium (Protonix Packets For Oral Suspension -) 20 mg PO DAILY [facility] Last Admin: 11/12/17 09:35 Dose: 20 mg Quetiapine Fumarate (Seroquel -) 25 mg GT [facility] Last Admin: 11/11/17 21:10 Dose: 25 mg Trazodone HCl (Desyrel -) 50 mg PEG [facility] Last Admin: 11/11/17 21:07 Dose: 50 mg Valproate Sodium (Depakene -) 500 mg PEG BID [facility] Last Admin: 11/12/17 09:36 Dose: 500 mg - Objective Vital Signs: Vital Signs Temperature 97.9 F 11/12/17 06:48 Pulse Rate 89 11/12/17 09:35 Respiratory Rate 20 11/12/17 06:48 Blood Pressure 140/74 11/12/17 06:48 O2 Sat by Pulse Oximetry (%) 99 11/12/17 05:43 Constitutional: Yes: No Distress, Calm Eyes: Yes: Conjunctiva Clear Gastrointestinal: Yes: Soft. No: Melena, Rectal Bleeding, Tenderness, Vomiting Labs: CBC, BMP 11/12/17 06:55 11/12/17 06:55 INR, PTT INR 1.03 (0.82-1.09) 11/05/17 17:35 CBCD WBC 9.1 K/mm3 (4.0-10.0) 11/12/17 06:55 RBC 2.66 M/mm3 (3.60-5.2) L 11/12/17 06:55 Hgb 8.0 GM/dL (10.7-15.3) L 11/12/17 06:55 Hct 23.2 % (32.4-45.2) L 11/12/17 06:55 MCV 87.0 fl (80-96) 11/12/17 06:55 MCHC 34.5 g/dl (32.0-36.0) 11/12/17 06:55 RDW 19.2 % (11.6-15.6) H 11/12/17 06:55 Plt Count 231 K/MM3 (134-434) 11/12/17 06:55 MPV 6.6 fl (7.5-11.1) L 11/12/17 06:55 CMP Sodium 138 mmol/L (136-145) 11/12/17 06:55 Potassium 3.6 mmol/L (3.5-5.1) 11/12/17 06:55 Chloride 104 mmol/L (98-107) 11/12/17 06:55 Carbon Dioxide 27 mmol/L (21-32) 11/12/17 06:55 Anion Gap 7 (8-16) L 11/12/17 06:55 BUN 16 mg/dL (7-18) 11/12/17 06:55 Creatinine 1.1 mg/dL (0.55-1.02) H 11/12/17 06:55 Creat Clearance w eGFR 50.67 (>60) 11/12/17 06:55 Calcium 8.1 mg/dL (8.5-10.1) L 11/12/17 06:55 Total Bilirubin 0.3 mg/dL (0.2-1.0) D 11/12/17 06:55 AST 7 U/L (15-37) L 11/12/17 06:55 ALT 9 U/L (12-78) L 11/12/17 06:55 Alkaline Phosphatase 114 U/L (45-117) 11/12/17 06:55 Total Protein 4.7 g/dl (6.4-8.2) L 11/12/17 06:55 Albumin 1.5 g/dl (3.4-5.0) L 11/12/17 06:55 Problem List - Problems (1) Coffee ground emesis Code(s): K92.0 - HEMATEMESIS Assessment/Plan No signs of bleeding. No acute, GI-related issues at this time OK to d/c from GI perspective
--- NOTE | 2017-11-12 14:03 | PN ---
Progress Note, Physician History of Present Illness: Pt seen and examined at bedside. She is awake and is tolerating feeds. - Current Medication List Current Medications: Active Medications Acetaminophen (Tylenol Oral Solution -) 650 mg GT Q6H PRN PRN Reason: pain 4-6 Last Admin: 11/11/17 17:12 Dose: 650 mg Albuterol/Ipratropium (Duoneb -) 1 amp NEB Q6H PRN PRN Reason: SHORTNESS OF BREATH Last Admin: 11/12/17 05:44 Dose: 1 amp Artificial Tears (Artificial Tears Ointment -) 1 applic OU BID [facility] Last Admin: 11/12/17 09:37 Dose: 1 applic Atorvastatin Calcium (Lipitor -) 20 mg GT HS [facility] Last Admin: 11/11/17 21:08 Dose: 20 mg Digoxin (Lanoxin -) 0.125 mg PEG Q2D@1000 [facility] Last Admin: 11/12/17 09:35 Dose: 0.125 mg Diltiazem HCl (Cardizem -) 90 mg GT Q6HPO [facility] Last Admin: 11/12/17 11:54 Dose: 90 mg Insulin Aspart (Novolog Vial Sliding Scale -) 1 vial SQ TIDAC [facility] PRN Reason: Protocol Last Admin: 11/12/17 11:56 Dose: 8 unit Insulin Aspart (Novolog Vial Sliding Scale -) 1 vial SQ HS [facility] PRN Reason: Protocol Last Admin: 11/11/17 21:24 Dose: 2 units Insulin Detemir (Levemir Vial) 10 units SQ HS [facility] Insulin Detemir (Levemir Vial) 20 units SQ AM [facility] Magnesium Oxide (Mag-Ox -) 400 mg GT BID [facility] Last Admin: 11/12/17 09:38 Dose: 400 mg Metoprolol Tartrate (Lopressor -) 50 mg GT BID [facility] Last Admin: 11/12/17 09:35 Dose: 50 mg Pantoprazole Sodium (Protonix Packets For Oral Suspension -) 20 mg PO DAILY [facility] Last Admin: 11/12/17 09:35 Dose: 20 mg Quetiapine Fumarate (Seroquel -) 25 mg GT HS [facility] Last Admin: 11/11/17 21:10 Dose: 25 mg Trazodone HCl (Desyrel -) 50 mg PEG [facility] Last Admin: 11/11/17 21:07 Dose: 50 mg Valproate Sodium (Depakene -) 500 mg PEG BID [facility] Last Admin: 11/12/17 09:36 Dose: 500 mg - Objective Vital Signs: Vital Signs Temperature 97.9 F 11/12/17 06:48 Pulse Rate 89 11/12/17 09:35 Respiratory Rate 20 11/12/17 06:48 Blood Pressure 140/74 11/12/17 06:48 O2 Sat by Pulse Oximetry (%) 99 11/12/17 05:43 Constitutional: Yes: Calm Eyes: Yes: Conjunctiva Clear HENT: Yes: Atraumatic Neck: Yes: Other (trache) Cardiovascular: Yes: S1, S2 Respiratory: Yes: CTA Bilaterally Gastrointestinal: Yes: Soft Genitourinary: Yes: Incontinence Musculoskeletal: Yes: WNL Edema: No Neurological: Yes: Oriented Psychiatric: Yes: Oriented Labs: CBC, BMP 11/12/17 06:55 11/12/17 06:55 INR, PTT INR 1.03 (0.82-1.09) 11/05/17 17:35 Problem List - Problems (1) CKD (chronic kidney disease) Code(s): N18.9 - CHRONIC KIDNEY DISEASE, UNSPECIFIED (2) Chronic respiratory failure Code(s): J96.10 - CHRONIC RESPIRATORY FAILURE, UNSP W HYPOXIA OR HYPERCAPNIA (3) Hypernatremia Code(s): E87.0 - HYPEROSMOLALITY AND HYPERNATREMIA Assessment/Plan Current Medications Generic Name Dose Route Start Last Admin Trade Name Freq PRN Reason Stop Dose Admin Acetaminophen 650 mg 11/06/17 19:17 11/11/17 17:12 Tylenol Oral Solution - GT 650 mg Q6H PRN Administration pain 4-6 Albuterol/Ipratropium 1 amp 11/11/17 10:28 11/12/17 05:44 Duoneb - NEB 1 amp Q6H PRN Administration SHORTNESS OF BREATH Artificial Tears 1 applic 11/06/17 10:00 11/12/17 09:37 Artificial Tears Ointment - OU 1 applic BID [facility] Administration Atorvastatin Calcium 20 mg 11/06/17 22:00 11/11/17 21:08 Lipitor - GT 20 mg HS [facility] Administration Digoxin 0.125 mg 11/08/17 10:00 11/12/17 09:35 Lanoxin - PEG 0.125 mg Q2D@1000 [facility] Administration Diltiazem HCl 90 mg 11/06/17 00:00 11/12/17 11:54 Cardizem - GT 90 mg Q6HPO [facility] Administration Insulin Aspart 1 vial 11/06/17 07:00 11/12/17 11:56 Novolog Vial Sliding Scale - SQ 8 unit TIDAC [facility] Administration Protocol Insulin Aspart 1 vial 11/09/17 22:00 11/11/17 21:24 Novolog Vial Sliding Scale - SQ 2 units HS [facility] Administration Protocol Insulin Detemir 10 units 11/12/17 22:00 Levemir Vial SQ HS [facility] Insulin Detemir 20 units 11/12/17 07:51 Levemir Vial SQ AM [facility] Magnesium Oxide 400 mg 11/11/17 11:00 11/12/17 09:38 Mag-Ox - GT 400 mg BID [facility] Administration Metoprolol Tartrate 50 mg 11/06/17 10:00 11/12/17 09:35 Lopressor - GT 50 mg BID [facility] Administration Pantoprazole Sodium 20 mg 11/12/17 10:00 11/12/17 09:35 Protonix Packets For Oral Suspension - PO 20 mg DAILY [facility] Administration Quetiapine Fumarate 25 mg 11/06/17 22:00 11/11/17 21:10 Seroquel - GT 25 mg HS [facility] Administration Trazodone HCl 50 mg 11/06/17 22:00 11/11/17 21:07 Desyrel - PEG 50 mg HS [facility] Administration Valproate Sodium 500 mg 11/06/17 22:00 11/12/17 09:36 Depakene - PEG 500 mg BID [facility] Administration Impression 1. CKD 2. hypernatremia 3. DM 4. htn 5. chol 6. chemo port malfunction 7. a-fib 8. lung mass 9. proteinuria 10. adenocarcinoma 11. CVA 12. chronic resp failure 13. hypokalemia Plan - lytes are stable - cont feeds - renal function stable - monitor sodium - will follow prn - pulm rehab Dr Llanos
[2017-11-12] MEDS: traZODone HCL 50 MG TABLET (FP) PEG SCH (21:43)
[2017-11-12] MEDS: ATORVASTATIN CA 20 MG TABLET (FP) GT SCH (21:43)
[2017-11-12] MEDS: QUEtiapine FUMARATE 25 MG TABLET (FP) GT SCH (21:47)
[2017-11-13] MEDS: dilTIAZem HCL 30 MG TABLET (FP) GT SCH ×2 (01:54→23:08)
[2017-11-13] MEDS ORDERED: dilTIAZem HCL 60 MG TABLET (FP) ONE ×4 (06:03→22:33)
[2017-11-13] MEDS ORDERED: dilTIAZem HCL 30 MG TABLET (FP) ONE ×4 (06:03→22:33)
[2017-11-13] MEDS: DILTIAZEM 60 MG, DILTIAZEM 30 MG GT SCH ×4 (06:09→17:55)
[2017-11-13] MEDS: INSULIN SLIDING SCALE (NOVOLOG) 1 VIAL SQ SCH ×4 (06:10→23:16)
[2017-11-13] MEDS: INSULIN DETEMIR 100 UNITS/ML MDV SQ SCH ×2 (06:11→23:10)
[2017-11-13 07:36] LABS: HEMATOCRIT 22.9 % (32.4-45.2); HEMOGLOBIN 7.8 GM/dL (10.7-15.3); MCH 29.5 pg (25.7-33.7); MCHC 34.1 g/dl (32.0-36.0); MEAN CELL VOLUME 86.8 fl (80-96); MEAN PLT VOLUME 6.5 fl (7.5-11.1); PLATELET COUNT 248 K/MM3 (134-434); RBC 2.64 M/mm3 (3.60-5.2); RDW 19.2 % (11.6-15.6); WHITE BLOOD COUNT 11.2 K/mm3 (4.0-10.0)
[2017-11-13 07:41] LABS: ALBUMIN 1.5 g/dl (3.4-5.0); ANION GAP 9 (8-16); BLOOD UREA NITROGEN 19 mg/dL (7-18); CALCIUM 8.7 mg/dL (8.5-10.1); CHLORIDE 103 mmol/L (98-107); CO2 28 mmol/L (21-32); CREATININE 0.9 mg/dL (0.55-1.02); GLUCOSE,RANDOM 287 mg/dL (74-106); POTASSIUM 4.1 mmol/L (3.5-5.1); SGOT/AST 11 U/L (15-37); SGPT/ALT 12 U/L (12-78); SODIUM 140 mmol/L (136-145)
[2017-11-13 07:43] LABS: ALK PHOS 106 U/L (45-117); BILIRUBIN,TOTAL 0.3 mg/dL (0.2-1.0); TOT PROT 4.7 g/dl (6.4-8.2)
[2017-11-13 09:23] LABS: ANISOCYTOSIS 1+; PLATELET ESTIMATE NORMAL
--- NOTE | 2017-11-13 10:17 | PN ---
Progress Note, Physician Chief Complaint: hematemesis History of Present Illness: NAD, alert and oriented no N/V H/H stable, seen by GI -Barium swallow showed mild aspiration -strict NPO as per speech therapy -as per noted, daughter had been giving patient PO intake against medical advice or Speech Therapy During last admission, ENT assessment noted Vocal cords adducted,in midline. This would likely put pt at risk, unable to breathe out with PMV in place. Trial of PMV by sp path on 11/03/17, resulted in pt becoming anxious, hyperventilating, with elevated HR. CXR from 11/08/17 showed increased congestion, d/c IVF -H/H drop today - Current Medication List Current Medications: Active Medications Acetaminophen (Tylenol Oral Solution -) 650 mg GT Q6H PRN PRN Reason: pain 4-6 Last Admin: 11/11/17 17:12 Dose: 650 mg Albuterol/Ipratropium (Duoneb -) 1 amp NEB Q6H PRN PRN Reason: SHORTNESS OF BREATH Last Admin: 11/12/17 16:53 Dose: 1 amp Artificial Tears (Artificial Tears Ointment -) 1 applic OU BID [facility] Last Admin: 11/12/17 21:55 Dose: 1 applic Atorvastatin Calcium (Lipitor -) 20 mg GT HS [facility] Last Admin: 11/12/17 21:43 Dose: 20 mg Digoxin (Lanoxin -) 0.125 mg PEG Q2D@1000 [facility] Last Admin: 11/12/17 09:35 Dose: 0.125 mg Diltiazem HCl 60 mg/ Diltiazem (HCl 30 mg) 90 mg GT Q6HPO [facility] Last Admin: 11/13/17 06:09 Dose: 90 mg Insulin Aspart (Novolog Vial Sliding Scale -) 1 vial SQ TIDAC [facility] PRN Reason: Protocol Last Admin: 11/13/17 06:10 Dose: 4 unit Insulin Aspart (Novolog Vial Sliding Scale -) 1 vial SQ HS [facility] PRN Reason: Protocol Last Admin: 11/12/17 21:51 Dose: 2 units Insulin Detemir (Levemir Vial) 10 units SQ HS [facility] Last Admin: 11/12/17 21:44 Dose: 10 unit Insulin Detemir (Levemir Vial) 20 units SQ AM [facility] Last Admin: 11/13/17 06:11 Dose: 10 unit Magnesium Oxide (Mag-Ox -) 400 mg GT BID [facility] Last Admin: 11/12/17 21:46 Dose: 400 mg Metoprolol Tartrate (Lopressor -) 50 mg GT BID [facility] Last Admin: 11/12/17 21:43 Dose: 50 mg Pantoprazole Sodium (Protonix Packets For Oral Suspension -) 20 mg PO DAILY [facility] Last Admin: 11/12/17 09:35 Dose: 20 mg Quetiapine Fumarate (Seroquel -) 25 mg GT [facility] Last Admin: 11/12/17 21:47 Dose: 25 mg Trazodone HCl (Desyrel -) 50 mg PEG HS [facility] Last Admin: 11/12/17 21:43 Dose: 50 mg Valproate Sodium (Depakene -) 500 mg PEG BID [facility] Last Admin: 11/12/17 21:43 Dose: 500 mg - Objective Vital Signs: Vital Signs Temperature 98.1 F 11/13/17 06:00 Pulse Rate 88 11/13/17 06:00 Respiratory Rate 20 11/13/17 06:00 Blood Pressure 126/60 11/13/17 06:00 O2 Sat by Pulse Oximetry (%) 99 11/12/17 10:00 Constitutional: Yes: Well Nourished, No Distress, Calm Cardiovascular: Yes: Regular Rate and Rhythm Respiratory: Yes: Regular Gastrointestinal: Yes: Normal Bowel Sounds, Soft, Other (PEG) Musculoskeletal: Yes: WNL Extremities: Yes: Deformity Edema: No Peripheral Pulses WNL: Yes Neurological: Yes: Alert, Oriented Psychiatric: Yes: Alert, Oriented Labs: CBC, BMP 11/13/17 06:00 11/13/17 06:00 INR, PTT INR 1.03 (0.82-1.09) 11/05/17 17:35 Problem List - Problems (1) Hyperglycemia Assessment/Plan: -BGM -Insulin -Endocrinology consult -feeding as per RD recommendation -repeat A1C 6.9 Code(s): R73.9 - HYPERGLYCEMIA, UNSPECIFIED (2) Anemia Assessment/Plan: -H/H drop today -Hematology consult ordered -PRBC 1 unit -2/2 to blood loss? or Chronic disease -Iron profile normal -add B12 -hematology consult -monitor trend -stool OB pending Code(s): D64.9 - ANEMIA, UNSPECIFIED (3) Diabetes mellitus, insulin dependent (IDDM), uncontrolled Assessment/Plan: -A1c 6.9 -endocrinology consult -BGM -Insulin Code(s): E10.65 - TYPE 1 DIABETES MELLITUS WITH HYPERGLYCEMIA (4) Hematemesis Assessment/Plan: -seen by GI -H/H stabilized -check stool OB -has had EGD's in the past Code(s): K92.0 - HEMATEMESIS (5) Hypernatremia Assessment/Plan: -resolved -feedings and free water -monitor trend -renal consult appreciated Code(s): E87.0 - HYPEROSMOLALITY AND HYPERNATREMIA (6) Chronic respiratory failure Assessment/Plan: -seen by Pulmonary -on Trach collar -Increased congestion on CXR 11/08/17 -Barium Swallow avoid any PO intake -seen by Speech Therapy -Bronchodilators Code(s): J96.10 - CHRONIC RESPIRATORY FAILURE, UNSP W HYPOXIA OR HYPERCAPNIA Assessment/Plan -see problem list -GI prophylaxis -DVT pophylaxis -Physical therapy
[2017-11-13] MEDS: VALPROATE SODIUM 250 MG/5 ML UNIT DOSE CUP PEG SCH ×2 (10:54→23:12)
[2017-11-13] MEDS: METOPROLOL TARTRATE 50 MG TABLET (FP) GT SCH ×2 (10:56→23:09)
[2017-11-13] MEDS: PANTOPRAZOLE SOD 40 MG SUSPENSION PACKET PO SCH (10:56)
--- NOTE | 2017-11-13 10:56 | PN ---
Progress Note (short form) - Note Progress Note: PULMONARY VSS/AWAKE /ALERT TOLERATING TRACH COLLAR/NOT PMV ANICTERIC/TRACH IN PLACE CHEST distant bilaterally S1S2 BS+ NO EDEMA LABS/MEDS/NOTES/IMAGES/MBS/ NOTED Coffee Ground Emesis resolved Chronic Respiratory Failure s/p tracheostomy Metastatic Colon Ca to lung Atrial Fibrillation h/o CVA HTN DM - glycemic control - IVF as needed - protonix - monitor H/H - aspiration precautions - continue trach collar for now - inhaled bronchodilators - O2 to keep SpO2 >90% - DVT prophylaxis Marley WILSON MD
[2017-11-13] MEDS: MAGNESIUM OXIDE 400 MG TABLET (FP) GT SCH ×2 (10:57→23:09)
[2017-11-13] MEDS: MINERAL OIL/PETROLATUM,WHITE 3.5 GM TUBE OU SCH ×2 (10:58→23:09)
--- NOTE | 2017-11-13 11:34 | PN ---
Progress Note (short form) - Note Progress Note: Patient seen and examined. Hematology called for evaluation of anemia. 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 She was discharged to SNF now is admitted with coffee ground emesis. seen by GI/Pulm. Chart reviewed in detail. O/E: Gen: NAD HEENT: TracH+ . NCAT Cor: rrr Lung: scattered rhonchi Abd: soft, nontender Ext: no edema Last Vital Signs Temp Pulse Resp BP Pulse Ox 98.1 F 88 20 126/60 99 11/13/17 06:00 11/13/17 06:00 11/13/17 06:00 11/13/17 06:00 11/12/17 10:00 CBC, BMP 11/13/17 06:00 11/13/17 06:00 Current Medications Generic Name Dose Route Start Last Admin Trade Name Freq PRN Reason Stop Dose Admin Acetaminophen 650 mg 11/06/17 19:17 11/11/17 17:12 Tylenol Oral Solution - GT 650 mg Q6H PRN Administration pain 4-6 Albuterol/Ipratropium 1 amp 11/11/17 10:28 11/12/17 16:53 Duoneb - NEB 1 amp Q6H PRN Administration SHORTNESS OF BREATH Artificial Tears 1 applic 11/06/17 10:00 11/13/17 10:58 Artificial Tears Ointment - OU 1 applic BID [facility] Administration Atorvastatin Calcium 20 mg 11/06/17 22:00 11/12/17 21:43 Lipitor - GT 20 mg HS [facility] Administration Digoxin 0.125 mg 11/08/17 10:00 11/12/17 09:35 Lanoxin - PEG 0.125 mg Q2D@1000 [facility] Administration Diltiazem HCl 60 mg/ Diltiazem 90 mg 11/13/17 06:00 11/13/17 10:57 HCl 30 mg GT 90 mg Q6HPO [facility] Administration Insulin Aspart 1 vial 11/06/17 07:00 11/13/17 06:10 Novolog Vial Sliding Scale - SQ 4 unit TIDAC [facility] Administration Protocol Insulin Aspart 1 vial 11/09/17 22:00 11/12/17 21:51 Novolog Vial Sliding Scale - SQ 2 units HS [facility] Administration Protocol Insulin Detemir 10 units 11/12/17 22:00 11/12/17 21:44 Levemir Vial SQ 10 unit HS [facility] Administration Insulin Detemir 20 units 11/12/17 07:51 11/13/17 06:11 Levemir Vial SQ 10 unit AM [facility] Administration Magnesium Oxide 400 mg 11/11/17 11:00 11/13/17 10:57 Mag-Ox - GT 400 mg BID [facility] Administration Metoprolol Tartrate 50 mg 11/06/17 10:00 11/13/17 10:56 Lopressor - GT 50 mg BID [facility] Administration Pantoprazole Sodium 20 mg 11/12/17 10:00 11/13/17 10:56 Protonix Packets For Oral Suspension - PO 20 mg DAILY [facility] Administration Quetiapine Fumarate 25 mg 11/06/17 22:00 11/12/17 21:47 Seroquel - GT 25 mg HS [facility] Administration Trazodone HCl 50 mg 11/06/17 22:00 11/12/17 21:43 Desyrel - PEG 50 mg HS [facility] Administration Valproate Sodium 500 mg 11/06/17 22:00 11/13/17 10:54 Depakene - PEG 500 mg BID [facility] Administration A/P Anemia Leucocytosis Chronic Respiratory Failure s/p tracheostomy Metastatic Colon Ca to lung s/p wedge. Atrial Fibrillation h/o multiple embolic CVA (prolonged recent hospitalization ) HTN DM Anemia: -likely ACD/ACI from her underlying co-morbidities not limited to mCRC( reviewed her iron studies ) -GI f/u reviewed -give PRBCs. -will continue to monitor
--- NOTE | 2017-11-13 13:06 | PN ---
Progress Note, [employer] - Note Progress Note: PMV was CONTRAINDICATED, unable to breathe out/ with cuff deflated and pmv in place, during last assessment. Case reviewed with Dr. Puga, who planned to speak with Dr. Rainey regarding consideration for downsizing trach with hope for improved speech/swallowing function. Vocal cord dysfunction previously identified by ENT. Vocal cord reassessment is necessary before PMV usage, to be sure Vocal cords Abduct (Open) fully. PMV is a one way valve, making it impossible to exhale/breathe out of trach once it is on.
--- NOTE | 2017-11-13 16:24 | PN ---
Progress Note, Physician History of Present Illness: No events. Hgb 7.8 g/dl. No signs of bleeding, per nurse/daughter. Pt appears comfortable, reports no abdominal pain, tenderness, nausea, or vomiting. - Current Medication List Current Medications: Active Medications Acetaminophen (Tylenol Oral Solution -) 650 mg GT Q6H PRN PRN Reason: pain 4-6 Last Admin: 11/11/17 17:12 Dose: 650 mg Albuterol/Ipratropium (Duoneb -) 1 amp NEB Q6H PRN PRN Reason: SHORTNESS OF BREATH Last Admin: 11/12/17 16:53 Dose: 1 amp Artificial Tears (Artificial Tears Ointment -) 1 applic OU BID [facility] Last Admin: 11/13/17 10:58 Dose: 1 applic Atorvastatin Calcium (Lipitor -) 20 mg GT HS [facility] Last Admin: 11/12/17 21:43 Dose: 20 mg Digoxin (Lanoxin -) 0.125 mg PEG Q2D@1000 [facility] Last Admin: 11/12/17 09:35 Dose: 0.125 mg Diltiazem HCl 60 mg/ Diltiazem (HCl 30 mg) 90 mg GT Q6HPO [facility] Last Admin: 11/13/17 12:43 Dose: Not Given Insulin Aspart (Novolog Vial Sliding Scale -) 1 vial SQ TIDAC [facility] PRN Reason: Protocol Last Admin: 11/13/17 11:49 Dose: 6 unit Insulin Aspart (Novolog Vial Sliding Scale -) 1 vial SQ [facility] PRN Reason: Protocol Last Admin: 11/12/17 21:51 Dose: 2 units Insulin Detemir (Levemir Vial) 10 units SQ [facility] Last Admin: 11/12/17 21:44 Dose: 10 unit Insulin Detemir (Levemir Vial) 20 units SQ AM [facility] Last Admin: 11/13/17 06:11 Dose: 10 unit Magnesium Oxide (Mag-Ox -) 400 mg GT BID [facility] Last Admin: 11/13/17 10:57 Dose: 400 mg Metoprolol Tartrate (Lopressor -) 50 mg GT BID [facility] Last Admin: 11/13/17 10:56 Dose: 50 mg Pantoprazole Sodium (Protonix Packets For Oral Suspension -) 20 mg PO DAILY [facility] Last Admin: 11/13/17 10:56 Dose: 20 mg Quetiapine Fumarate (Seroquel -) 25 mg GT [facility] Last Admin: 11/12/17 21:47 Dose: 25 mg Trazodone HCl (Desyrel -) 50 mg PEG HS [facility] Last Admin: 11/12/17 21:43 Dose: 50 mg Valproate Sodium (Depakene -) 500 mg PEG BID [facility] Last Admin: 11/13/17 10:54 Dose: 500 mg - Objective Vital Signs: Vital Signs Temperature 98.2 F 11/13/17 15:32 Pulse Rate 98 H 11/13/17 15:32 Respiratory Rate 16 11/13/17 15:32 Blood Pressure 120/78 11/13/17 15:32 O2 Sat by Pulse Oximetry (%) 98 11/13/17 12:00 Gastrointestinal: Yes: Soft. No: Distention, Melena, Rectal Bleeding, Tenderness, Vomiting Labs: CBC, BMP 11/13/17 06:00 11/13/17 06:00 INR, PTT INR 1.03 (0.82-1.09) 11/05/17 17:35 Problem List - Problems (1) Coffee ground emesis Code(s): K92.0 - HEMATEMESIS Assessment/Plan No overt signs of GI bleeding No need for endoscopic intervention at this time, discussed with pt's daughter who was at bedside at the time of this encounter. Metastatic colon cancer Agree with transfusion of PRBC PPI via G-tube Continue G-tube feeding with aspiration precautions
[2017-11-13] MEDS: ACETAMINOPHEN 650 MG/20.3 ML ORAL SOLUTION (CUPS) GT PRN (17:55)
[2017-11-13] MEDS: ATORVASTATIN CA 20 MG TABLET (FP) GT SCH (23:08)
[2017-11-13] MEDS: traZODone HCL 50 MG TABLET (FP) PEG SCH (23:08)
[2017-11-13] MEDS: QUEtiapine FUMARATE 25 MG TABLET (FP) GT SCH (23:10)
[2017-11-13] MEDS: ALBUTEROL SO4 2.5/IPRATROPIUM 0.5 INH SOL 3 ML VIAL.NEB. NEB PRN (23:35)
[2017-11-14] MEDS: DILTIAZEM 60 MG, DILTIAZEM 30 MG GT SCH ×4 (01:02→17:28)
[2017-11-14] MEDS ORDERED: dilTIAZem HCL 30 MG TABLET (FP) ONE ×3 (06:05→16:41)
[2017-11-14] MEDS ORDERED: dilTIAZem HCL 60 MG TABLET (FP) ONE ×3 (06:05→16:41)
[2017-11-14] MEDS: INSULIN SLIDING SCALE (NOVOLOG) 1 VIAL SQ SCH ×4 (06:49→21:37)
[2017-11-14] MEDS: INSULIN DETEMIR 100 UNITS/ML MDV SQ SCH ×2 (06:50→21:39)
[2017-11-14] MEDS: ALBUTEROL SO4 2.5/IPRATROPIUM 0.5 INH SOL 3 ML VIAL.NEB. NEB PRN ×2 (08:13→20:35)
[2017-11-14 08:20] LABS: HEMATOCRIT 28.2 % (32.4-45.2); HEMOGLOBIN 9.8 GM/dL (10.7-15.3); MCH 30.1 pg (25.7-33.7); MCHC 34.5 g/dl (32.0-36.0); MEAN CELL VOLUME 87.1 fl (80-96); MEAN PLT VOLUME 6.6 fl (7.5-11.1); PLATELET COUNT 269 K/MM3 (134-434); RBC 3.24 M/mm3 (3.60-5.2); RDW 17.9 % (11.6-15.6); WHITE BLOOD COUNT 8.9 K/mm3 (4.0-10.0)
[2017-11-14 09:02] LABS: CHLORIDE 99 mmol/L (98-107); POTASSIUM 4.1 mmol/L (3.5-5.1); SODIUM 137 mmol/L (136-145)
[2017-11-14 09:10] LABS: ALBUMIN 1.8 g/dl (3.4-5.0); ALK PHOS 120 U/L (45-117); ANION GAP 9 (8-16); BILIRUBIN,TOTAL 0.3 mg/dL (0.2-1.0); BLOOD UREA NITROGEN 23 mg/dL (7-18); CALCIUM 8.8 mg/dL (8.5-10.1); CO2 29 mmol/L (21-32); CREATININE 1.1 mg/dL (0.55-1.02); SGOT/AST 11 U/L (15-37); SGPT/ALT 9 U/L (12-78); TOT PROT 5.3 g/dl (6.4-8.2)
[2017-11-14 09:48] LABS: ANISOCYTOSIS 1+; MACROCYTOSIS 0; PLATELET ESTIMATE NORMAL
[2017-11-14 09:52] LABS: GLUCOSE,RANDOM 341 mg/dL (74-106)
--- NOTE | 2017-11-14 10:08 | PN ---
Progress Note, Physician Chief Complaint: hematemesis Metastatic colon cancer History of Present Illness: NAD, alert and oriented no N/V seen by GI -Barium swallow showed mild aspiration -strict NPO as per speech therapy -as per noted, daughter had been giving patient PO intake against medical advice or Speech Therapy During last admission, ENT assessment noted Vocal cords adducted,in midline. This would likely put pt at risk, unable to breathe out with PMV in place. Trial of PMV by sp path on 11/03/17, resulted in pt becoming anxious, hyperventilating, with elevated HR. CXR from 11/08/17 showed increased congestion, d/c IVF -H/H improved after PRBC -Stool Guaiac positive - Current Medication List Current Medications: Active Medications Acetaminophen (Tylenol Oral Solution -) 650 mg GT Q6H PRN PRN Reason: pain 4-6 Last Admin: 11/13/17 17:55 Dose: 650 mg Albuterol/Ipratropium (Duoneb -) 1 amp NEB Q6H PRN PRN Reason: SHORTNESS OF BREATH Last Admin: 11/14/17 08:13 Dose: 1 amp Artificial Tears (Artificial Tears Ointment -) 1 applic OU BID [facility] Last Admin: 11/13/17 23:09 Dose: 1 applic Atorvastatin Calcium (Lipitor -) 20 mg GT HS [facility] Last Admin: 11/13/17 23:08 Dose: 20 mg Digoxin (Lanoxin -) 0.125 mg PEG Q2D@1000 [facility] Last Admin: 11/12/17 09:35 Dose: 0.125 mg Diltiazem HCl 60 mg/ Diltiazem (HCl 30 mg) 90 mg GT Q6HPO [facility] Last Admin: 11/14/17 06:48 Dose: 90 mg Insulin Aspart (Novolog Vial Sliding Scale -) 1 vial SQ TIDAC [facility] PRN Reason: Protocol Last Admin: 11/14/17 06:49 Dose: 8 unit Insulin Aspart (Novolog Vial Sliding Scale -) 1 vial SQ HS [facility] PRN Reason: Protocol Last Admin: 11/13/17 23:16 Dose: 3 units Insulin Detemir (Levemir Vial) 10 units SQ HS [facility] Last Admin: 11/13/17 23:10 Dose: 10 unit Insulin Detemir (Levemir Vial) 20 units SQ AM [facility] Last Admin: 11/14/17 06:50 Dose: 20 unit Magnesium Oxide (Mag-Ox -) 400 mg GT BID [facility] Last Admin: 11/13/17 23:09 Dose: 400 mg Metoprolol Tartrate (Lopressor -) 50 mg GT BID [facility] Last Admin: 11/13/17 23:09 Dose: 50 mg Pantoprazole Sodium (Protonix Packets For Oral Suspension -) 20 mg PO DAILY [facility] Last Admin: 11/13/17 10:56 Dose: 20 mg Quetiapine Fumarate (Seroquel -) 25 mg GT [facility] Last Admin: 11/13/17 23:10 Dose: 25 mg Trazodone HCl (Desyrel -) 50 mg PEG [facility] Last Admin: 11/13/17 23:08 Dose: 50 mg Valproate Sodium (Depakene -) 500 mg PEG BID [facility] Last Admin: 11/13/17 23:12 Dose: 500 mg - Objective Vital Signs: Vital Signs Temperature 97.6 F 11/14/17 07:46 Pulse Rate 79 11/14/17 07:46 Respiratory Rate 20 11/14/17 07:46 Blood Pressure 158/76 11/14/17 07:46 O2 Sat by Pulse Oximetry (%) 100 11/13/17 22:00 Constitutional: Yes: Well Nourished, No Distress, Calm Cardiovascular: Yes: Regular Rate and Rhythm Respiratory: Yes: Regular Gastrointestinal: Yes: Normal Bowel Sounds, Soft Musculoskeletal: Yes: WNL Extremities: Yes: WNL Edema: No Peripheral Pulses WNL: Yes Neurological: Yes: Alert, Oriented Psychiatric: Yes: Alert, Oriented Labs: CBC, BMP 11/14/17 07:00 11/14/17 07:00 INR, PTT INR 1.03 (0.82-1.09) 11/05/17 17:35 Problem List - Problems (1) Hyperglycemia Assessment/Plan: -BGM -Insulin, increase levemir -Endocrinology consult -feeding as per RD recommendation -repeat A1C 6.9 Code(s): R73.9 - HYPERGLYCEMIA, UNSPECIFIED (2) Anemia Assessment/Plan: -H/H improved -Hematology consult appreciated -PRBC 1 unit yesterday -2/2 to blood loss likely source GI -Iron profile normal -add B12 -monitor trend -stool OB positive Code(s): D64.9 - ANEMIA, UNSPECIFIED (3) Diabetes mellitus, insulin dependent (IDDM), uncontrolled Assessment/Plan: -A1c 6.9 -endocrinology consult -BGM -Insulin-levemir increased Code(s): E10.65 - TYPE 1 DIABETES MELLITUS WITH HYPERGLYCEMIA (4) Hematemesis Assessment/Plan: -seen by GI -H/H stabilized -stool OB positive -has had EGD's in the past -Metastatic colon cancer Code(s): K92.0 - HEMATEMESIS (5) Hypernatremia Assessment/Plan: -resolved -feedings and free water -monitor trend -renal consult appreciated Code(s): E87.0 - HYPEROSMOLALITY AND HYPERNATREMIA (6) Chronic respiratory failure Assessment/Plan: -seen by Pulmonary -on Trach collar -Increased congestion on CXR 11/08/17 -Barium Swallow avoid any PO intake -seen by Speech Therapy -Bronchodilators Code(s): J96.10 - CHRONIC RESPIRATORY FAILURE, UNSP W HYPOXIA OR HYPERCAPNIA (7) Metastatic colorectal cancer Assessment/Plan: -palliative care -hematology/oncology on board Code(s): C78.5 - SECONDARY MALIGNANT NEOPLASM OF LARGE INTESTINE AND RECTUM Assessment/Plan see problem list
[2017-11-14] MEDS: MINERAL OIL/PETROLATUM,WHITE 3.5 GM TUBE OU SCH ×2 (10:50→21:39)
[2017-11-14] MEDS: VALPROATE SODIUM 250 MG/5 ML UNIT DOSE CUP PEG SCH ×2 (10:51→21:34)
[2017-11-14] MEDS: DIGOXIN 0.125 MG TABLET (FP) PEG SCH (10:51)
[2017-11-14] MEDS: METOPROLOL TARTRATE 50 MG TABLET (FP) GT SCH ×2 (10:52→21:39)
[2017-11-14] MEDS: MAGNESIUM OXIDE 400 MG TABLET (FP) GT SCH ×2 (10:53→21:38)
[2017-11-14] MEDS: PANTOPRAZOLE SOD 40 MG SUSPENSION PACKET PO SCH (10:53)
[2017-11-14] MEDS ORDERED: PT OWN MED DRAWER 7, Y5N ONE (11:23)
--- NOTE | 2017-11-14 15:20 | PN ---
Progress Note, Physician History of Present Illness: PULMONARY ALERT,CONGESTED - Current Medication List Current Medications: Active Medications Acetaminophen (Tylenol Oral Solution -) 650 mg GT Q6H PRN PRN Reason: pain 4-6 Last Admin: 11/13/17 17:55 Dose: 650 mg Albuterol/Ipratropium (Duoneb -) 1 amp NEB Q6H PRN PRN Reason: SHORTNESS OF BREATH Last Admin: 11/14/17 08:13 Dose: 1 amp Artificial Tears (Artificial Tears Ointment -) 1 applic OU BID [facility] Last Admin: 11/14/17 10:50 Dose: 1 applic Atorvastatin Calcium (Lipitor -) 20 mg GT HS [facility] Last Admin: 11/13/17 23:08 Dose: 20 mg Digoxin (Lanoxin -) 0.125 mg PEG Q2D@1000 [facility] Last Admin: 11/14/17 10:51 Dose: 0.125 mg Diltiazem HCl 60 mg/ Diltiazem (HCl 30 mg) 90 mg GT Q6HPO [facility] Last Admin: 11/14/17 11:44 Dose: 90 mg Insulin Aspart (Novolog Vial Sliding Scale -) 1 vial SQ TIDAC [facility] PRN Reason: Protocol Last Admin: 11/14/17 11:44 Dose: 10 unit Insulin Aspart (Novolog Vial Sliding Scale -) 1 vial SQ HS [facility] PRN Reason: Protocol Last Admin: 11/13/17 23:16 Dose: 3 units Insulin Detemir (Levemir Vial) 14 units SQ HS [facility] Insulin Detemir (Levemir Vial) 24 units SQ AM [facility] Magnesium Oxide (Mag-Ox -) 400 mg GT BID [facility] Last Admin: 11/14/17 10:53 Dose: 400 mg Metoprolol Tartrate (Lopressor -) 50 mg GT BID [facility] Last Admin: 11/14/17 10:52 Dose: 50 mg Pantoprazole Sodium (Protonix Packets For Oral Suspension -) 20 mg PO DAILY [facility] Last Admin: 11/14/17 10:53 Dose: 20 mg Quetiapine Fumarate (Seroquel -) 25 mg GT [facility] Last Admin: 11/13/17 23:10 Dose: 25 mg Trazodone HCl (Desyrel -) 50 mg PEG [facility] Last Admin: 11/13/17 23:08 Dose: 50 mg Valproate Sodium (Depakene -) 500 mg PEG BID [facility] Last Admin: 11/14/17 10:51 Dose: 500 mg - Objective Vital Signs: Vital Signs Temperature 98.4 F 11/14/17 10:00 Pulse Rate 94 H 11/14/17 10:51 Respiratory Rate 20 11/14/17 10:00 Blood Pressure 98/50 11/14/17 10:00 O2 Sat by Pulse Oximetry (%) 95 11/14/17 10:00 Constitutional: Yes: Well Nourished, Calm Eyes: Yes: WNL HENT: Yes: WNL Neck: Yes: Supple (TRACH) Cardiovascular: Yes: Pulse Irregular, S1, S2 Respiratory: Yes: Rhonchi (SCATTERED RHONCHI) Gastrointestinal: Yes: Normal Bowel Sounds, Soft Extremities: Yes: WNL Edema: No Labs: CBC, BMP 11/14/17 07:00 11/14/17 12:10 INR, PTT INR 1.03 (0.82-1.09) 11/05/17 17:35 Assessment/Plan A/P Chronic Respiratory Failure s/p tracheostomy Metastatic Colon Ca to lung Atrial Fibrillation h/o CVA HTN DM - protonix - monitor H/H - aspiration precautions - trach collar - swallow eval - inhaled bronchodilators - O2 to keep SpO2 >90% - rate controlled - continue anticoagulation when ok with GI - DVT prophylaxis - ENT eval DR LEONE Problem List - Problems (1) Coffee ground emesis Code(s): K92.0 - HEMATEMESIS (2) Hyperglycemia Code(s): R73.9 - HYPERGLYCEMIA, UNSPECIFIED (3) Chronic respiratory failure Code(s): J96.10 - CHRONIC RESPIRATORY FAILURE, UNSP W HYPOXIA OR HYPERCAPNIA (4) Atrial fibrillation Code(s): I48.91 - UNSPECIFIED ATRIAL FIBRILLATION (5) Diabetes Code(s): E11.9 - TYPE 2 DIABETES MELLITUS WITHOUT COMPLICATIONS Qualifiers: Diabetes mellitus type: type 2 (6) HLD (hyperlipidemia) Code(s): E78.5 - HYPERLIPIDEMIA, UNSPECIFIED (7) HTN (hypertension) Code(s): I10 - ESSENTIAL (PRIMARY) HYPERTENSION (8) Lung mass Code(s): R91.8 - OTHER NONSPECIFIC ABNORMAL FINDING OF LUNG FIELD (9) Metastatic colorectal cancer Code(s): C78.5 - SECONDARY MALIGNANT NEOPLASM OF LARGE INTESTINE AND RECTUM
[2017-11-14] MEDS ORDERED: ZOLPIDEM TARTRATE 5 MG TABLET PO PRN (15:21)
[2017-11-14] MEDS ORDERED: INSULIN (NOVOLOG) ASPART 100 UNITS/ML 10ML VIAL ONE (21:28)
[2017-11-14] MEDS: ATORVASTATIN CA 20 MG TABLET (FP) GT SCH (21:35)
[2017-11-14] MEDS: traZODone HCL 50 MG TABLET (FP) PEG SCH (21:35)
[2017-11-14] MEDS: QUEtiapine FUMARATE 25 MG TABLET (FP) GT SCH (21:36)
[2017-11-14] MEDS: NYSTATIN/TRIAMCINOLONE TOPICAL CREAM 15 GM TUBE TP SCH (21:37)
[2017-11-15] MEDS ORDERED: dilTIAZem HCL 60 MG TABLET (FP) ONE ×5 (00:04→20:58)
[2017-11-15] MEDS ORDERED: dilTIAZem HCL 30 MG TABLET (FP) ONE ×5 (00:04→20:58)
[2017-11-15] MEDS: DILTIAZEM 60 MG, DILTIAZEM 30 MG GT SCH ×5 (00:07→17:33)
[2017-11-15] MEDS: INSULIN DETEMIR 100 UNITS/ML MDV SQ SCH ×2 (06:41→21:21)
[2017-11-15] MEDS: INSULIN SLIDING SCALE (NOVOLOG) 1 VIAL SQ SCH ×4 (06:43→21:36)
[2017-11-15] MEDS ORDERED: INSULIN (NOVOLOG) ASPART 100 UNITS/ML 10ML VIAL ONE ×2 (07:00→21:01)
[2017-11-15 08:05] LABS: HEMATOCRIT 26.9 % (32.4-45.2); HEMOGLOBIN 9.5 GM/dL (10.7-15.3); MCH 30.4 pg (25.7-33.7); MCHC 35.2 g/dl (32.0-36.0); MEAN CELL VOLUME 86.4 fl (80-96); MEAN PLT VOLUME 6.6 fl (7.5-11.1); PLATELET COUNT 261 K/MM3 (134-434); RBC 3.11 M/mm3 (3.60-5.2); RDW 18.3 % (11.6-15.6); WHITE BLOOD COUNT 10.6 K/mm3 (4.0-10.0)
[2017-11-15 08:14] LABS: CHLORIDE 100 mmol/L (98-107); POTASSIUM 4.1 mmol/L (3.5-5.1); SODIUM 139 mmol/L (136-145)
[2017-11-15 08:46] LABS: ALBUMIN 1.6 g/dl (3.4-5.0); ALK PHOS 109 U/L (45-117); ANION GAP 11 (8-16); BILIRUBIN,TOTAL 0.2 mg/dL (0.2-1.0); BLOOD UREA NITROGEN 26 mg/dL (7-18); CALCIUM 9.3 mg/dL (8.5-10.1); CO2 28 mmol/L (21-32); GLUCOSE,RANDOM 236 mg/dL (74-106); SGOT/AST 13 U/L (15-37); SGPT/ALT 14 U/L (12-78); TOT PROT 5.2 g/dl (6.4-8.2)
[2017-11-15 10:04] LABS: PLATELET ESTIMATE NORMAL
--- NOTE | 2017-11-15 10:18 | PN ---
Progress Note, Physician - Current Medication List Current Medications: Active Medications Acetaminophen (Tylenol Oral Solution -) 650 mg GT Q6H PRN PRN Reason: pain 4-6 Last Admin: 11/13/17 17:55 Dose: 650 mg Albuterol/Ipratropium (Duoneb -) 1 amp NEB Q6H PRN PRN Reason: SHORTNESS OF BREATH Last Admin: 11/14/17 20:35 Dose: 1 amp Artificial Tears (Artificial Tears Ointment -) 1 applic OU BID [facility] Last Admin: 11/14/17 21:39 Dose: 1 applic Atorvastatin Calcium (Lipitor -) 20 mg GT HS [facility] Last Admin: 11/14/17 21:35 Dose: 20 mg Digoxin (Lanoxin -) 0.125 mg PEG Q2D@1000 [facility] Last Admin: 11/14/17 10:51 Dose: 0.125 mg Diltiazem HCl 60 mg/ Diltiazem (HCl 30 mg) 90 mg GT Q6HPO [facility] Last Admin: 11/15/17 06:41 Dose: 90 mg Insulin Aspart (Novolog Vial Sliding Scale -) 1 vial SQ TIDAC [facility] PRN Reason: Protocol Last Admin: 11/15/17 06:43 Dose: 4 unit Insulin Aspart (Novolog Vial Sliding Scale -) [address] [facility] PRN Reason: Protocol Last Admin: 11/14/17 21:37 Dose: 2 units Insulin Detemir (Levemir Vial) 14 units SQ HS [facility] Last Admin: 11/14/17 21:39 Dose: 14 units Insulin Detemir (Levemir Vial) 24 units SQ AM [facility] Last Admin: 11/15/17 06:41 Dose: 24 units Magnesium Oxide (Mag-Ox -) 400 mg GT BID [facility] Last Admin: 11/14/17 21:38 Dose: 400 mg Metoprolol Tartrate (Lopressor -) 50 mg GT BID [facility] Last Admin: 11/14/17 21:39 Dose: 50 mg Nystatin/Triamcinolone Acetonide (Mycolog Ii Cream -) 1 applic TP BID [facility] Last Admin: 11/14/17 21:37 Dose: 1 applic Pantoprazole Sodium (Protonix Packets For Oral Suspension -) 20 mg PO DAILY [facility] Last Admin: 11/14/17 10:53 Dose: 20 mg Quetiapine Fumarate (Seroquel -) [address] [facility] Last Admin: 11/14/17 21:36 Dose: 25 mg Trazodone HCl (Desyrel -) 50 mg PEG HS [facility] Last Admin: 11/14/17 21:35 Dose: 50 mg Valproate Sodium (Depakene -) 500 mg PEG BID [facility] Last Admin: 11/14/17 21:34 Dose: 500 mg Zolpidem Tartrate (Ambien -) 5 mg PO HS PRN PRN Reason: INSOMNIA Last Admin: 11/14/17 21:35 Dose: 5 mg - Objective Vital Signs: Vital Signs Temperature 97.9 F 11/15/17 05:54 Pulse Rate 108 H 11/15/17 05:54 Respiratory Rate 20 11/15/17 05:54 Blood Pressure 147/79 11/15/17 05:54 O2 Sat by Pulse Oximetry (%) 98 11/14/17 22:00 Cardiovascular: Yes: S1, S2 Respiratory: Yes: Diminished, Rhonchi Gastrointestinal: Yes: Normal Bowel Sounds, Soft Labs: CBC, BMP 11/15/17 06:00 11/15/17 06:00 INR, PTT INR 1.03 (0.82-1.09) 11/05/17 17:35 Assessment/Plan - Problems (1) Hyperglycemia Assessment/Plan: -BGM -Insulin, increase levemir -Endocrinology consult -feeding as per RD recommendation -repeat A1C 6.9 Code(s): R73.9 - HYPERGLYCEMIA, UNSPECIFIED (2) Anemia Assessment/Plan: -H/H improved -Hematology consult appreciated -PRBC 1 unit 2 days ago -2/2 to blood loss likely source GI -Iron profile normal -add B12 -monitor trend -stool OB positive Code(s): D64.9 - ANEMIA, UNSPECIFIED (3) Diabetes mellitus, insulin dependent (IDDM), uncontrolled Assessment/Plan: -A1c 6.9 -endocrinology consult -BGM -Insulin-levemir increased Code(s): E10.65 - TYPE 1 DIABETES MELLITUS WITH HYPERGLYCEMIA (4) Hematemesis Assessment/Plan: -seen by GI -H/H stabilized -stool OB positive -has had EGD's in the past -Metastatic colon cancer Code(s): K92.0 - HEMATEMESIS (5) Hypernatremia Assessment/Plan: -resolved -feedings and free water -monitor trend -renal consult appreciated Code(s): E87.0 - HYPEROSMOLALITY AND HYPERNATREMIA (6) Chronic respiratory failure Assessment/Plan: -seen by Pulmonary -on Trach collar -Increased congestion on CXR 11/08/17 -Barium Swallow avoid any PO intake -seen by Speech Therapy -Bronchodilators Code(s): J96.10 - CHRONIC RESPIRATORY FAILURE, UNSP W HYPOXIA OR HYPERCAPNIA (7) Metastatic colorectal cancer Assessment/Plan: -palliative care -hematology/oncology on board Code(s): C78.5 - SECONDARY MALIGNANT NEOPLASM OF LARGE INTESTINE AND RECTUM
[2017-11-15] MEDS: METOPROLOL TARTRATE 50 MG TABLET (FP) GT SCH ×2 (10:56→21:22)
[2017-11-15] MEDS: ACETAMINOPHEN 650 MG/20.3 ML ORAL SOLUTION (CUPS) GT PRN (10:56)
[2017-11-15] MEDS: MAGNESIUM OXIDE 400 MG TABLET (FP) GT SCH ×2 (11:00→21:22)
[2017-11-15] MEDS: PANTOPRAZOLE SOD 40 MG SUSPENSION PACKET PO SCH (11:00)
[2017-11-15] MEDS: VALPROATE SODIUM 250 MG/5 ML UNIT DOSE CUP PEG SCH ×2 (11:01→21:20)
[2017-11-15] MEDS: MINERAL OIL/PETROLATUM,WHITE 3.5 GM TUBE OU SCH ×2 (11:02→21:38)
[2017-11-15] MEDS: NYSTATIN/TRIAMCINOLONE TOPICAL CREAM 15 GM TUBE TP SCH ×2 (11:21→22:04)
--- NOTE | 2017-11-15 13:42 | PN ---
Progress Note, Physician History of Present Illness: PULMONARY ALERT,COMFORTABLE,-RESP DISTRES - Current Medication List Current Medications: Active Medications Acetaminophen (Tylenol Oral Solution -) 650 mg GT Q6H PRN PRN Reason: pain 4-6 Last Admin: 11/15/17 10:56 Dose: 650 mg Albuterol/Ipratropium (Duoneb -) 1 amp NEB Q6H PRN PRN Reason: SHORTNESS OF BREATH Last Admin: 11/14/17 20:35 Dose: 1 amp Artificial Tears (Artificial Tears Ointment -) 1 applic OU BID [facility] Last Admin: 11/15/17 11:02 Dose: 1 applic Atorvastatin Calcium (Lipitor -) 20 mg GT HS [facility] Last Admin: 11/14/17 21:35 Dose: 20 mg Digoxin (Lanoxin -) 0.125 mg PEG Q2D@1000 [facility] Last Admin: 11/14/17 10:51 Dose: 0.125 mg Diltiazem HCl 60 mg/ Diltiazem (HCl 30 mg) 90 mg GT Q6HPO [facility] Last Admin: 11/15/17 12:14 Dose: Not Given Insulin Aspart (Novolog Vial Sliding Scale -) 1 vial SQ TIDAC [facility] PRN Reason: Protocol Last Admin: 11/15/17 11:20 Dose: 3 unit Insulin Aspart (Novolog Vial Sliding Scale -) 1 vial SQ HS [facility] PRN Reason: Protocol Last Admin: 11/14/17 21:37 Dose: 2 units Insulin Detemir (Levemir Vial) 14 units SQ HS [facility] Last Admin: 11/14/17 21:39 Dose: 14 units Insulin Detemir (Levemir Vial) 24 units SQ AM [facility] Last Admin: 11/15/17 06:41 Dose: 24 units Magnesium Oxide (Mag-Ox -) 400 mg GT BID [facility] Last Admin: 11/15/17 11:00 Dose: 400 mg Metoprolol Tartrate (Lopressor -) 50 mg GT BID [facility] Last Admin: 11/15/17 10:56 Dose: 50 mg Nystatin/Triamcinolone Acetonide (Mycolog Ii Cream -) 1 applic TP BID [facility] Last Admin: 11/15/17 11:21 Dose: 1 applic Pantoprazole Sodium (Protonix Packets For Oral Suspension -) 20 mg PO DAILY [facility] Last Admin: 11/15/17 11:00 Dose: 20 mg Quetiapine Fumarate (Seroquel -) 25 mg GT HS [facility] Last Admin: 11/14/17 21:36 Dose: 25 mg Trazodone HCl (Desyrel -) 50 mg PEG HS [facility] Last Admin: 11/14/17 21:35 Dose: 50 mg Valproate Sodium (Depakene -) 500 mg PEG BID [facility] Last Admin: 11/15/17 11:01 Dose: 500 mg Zolpidem Tartrate (Ambien -) 5 mg PO HS PRN PRN Reason: INSOMNIA Last Admin: 11/14/17 21:35 Dose: 5 mg - Objective Vital Signs: Vital Signs Temperature 97.9 F 11/15/17 05:54 Pulse Rate 108 H 11/15/17 05:54 Respiratory Rate 20 11/15/17 05:54 Blood Pressure 147/79 11/15/17 05:54 O2 Sat by Pulse Oximetry (%) 98 11/14/17 22:00 Constitutional: Yes: Well Nourished, Calm Eyes: Yes: WNL HENT: Yes: WNL Neck: Yes: Supple (TRACH) Cardiovascular: Yes: Pulse Irregular, S1, S2 Respiratory: Yes: Rhonchi (SCATTERED RHONCHI) Gastrointestinal: Yes: Normal Bowel Sounds, Soft Extremities: Yes: WNL Edema: No Labs: CBC, BMP 11/15/17 06:00 11/15/17 06:00 INR, PTT INR 1.03 (0.82-1.09) 11/05/17 17:35 Assessment/Plan A/P Chronic Respiratory Failure s/p tracheostomy Metastatic Colon Ca to lung Atrial Fibrillation h/o CVA HTN DM - protonix - monitor H/H - aspiration precautions - trach collar - swallow eval - inhaled bronchodilators - O2 to keep SpO2 >90% - rate controlled - continue anticoagulation when ok with GI - DVT prophylaxis - ENT eval DR LEONE Problem List - Problems (1) Coffee ground emesis Code(s): K92.0 - HEMATEMESIS (2) Hyperglycemia Code(s): R73.9 - HYPERGLYCEMIA, UNSPECIFIED (3) Chronic respiratory failure Code(s): J96.10 - CHRONIC RESPIRATORY FAILURE, UNSP W HYPOXIA OR HYPERCAPNIA (4) Atrial fibrillation Code(s): I48.91 - UNSPECIFIED ATRIAL FIBRILLATION (5) Diabetes Code(s): E11.9 - TYPE 2 DIABETES MELLITUS WITHOUT COMPLICATIONS Qualifiers: Diabetes mellitus type: type 2 (6) HLD (hyperlipidemia) Code(s): E78.5 - HYPERLIPIDEMIA, UNSPECIFIED (7) HTN (hypertension) Code(s): I10 - ESSENTIAL (PRIMARY) HYPERTENSION (8) Lung mass Code(s): R91.8 - OTHER NONSPECIFIC ABNORMAL FINDING OF LUNG FIELD (9) Metastatic colorectal cancer Code(s): C78.5 - SECONDARY MALIGNANT NEOPLASM OF LARGE INTESTINE AND RECTUM
--- NOTE | 2017-11-15 16:18 | HOSP ---
Subjective - Review of Symptoms Events since last encounter: Asked by Rn to evaluate pt for CP . pt seen and examined. she reports L sided chest pressure x 1 hr . reports SOB. no PAIGE or light headedness. VS: reviewed. NAD, cough , thick secretions from trach , L eye prosis , awake , cooperative CV: RRR. 2/6 SM at base , JVD Lungs: course crackles all over lung fileds Ext: no edema Abd: soft, PEG in . 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 knee flexion and extension 4/5 , RLE : hip flexion 4/5 , 5/5 knee flexion and extension . A/p unfortunate 62 y/o lady multiple medical problems including met colon cancer , recent admission for stroke complicated by resp failure and trach/PEg , now inhospital being treated for anemia/. asked to eval pt for CP 1- CP : x 1 hr . with associated SOb. concern for ACS given her risk factors . - EKG with sinus rhythm, NL [place] , TWI in inferior and lateral leads , not changed from most recent EKG in chart - check trop - check Cxray as pt has crackles and JVD , concern for pulm congestion /D CHF. also withthe thick greenish secretios , concern for PNA - echo in 09/25 with nL EF - labs reviewed - check BNP - signout given to Dr. Morley to follow Cxray and labs for further treatment/ workup Physical Examination Vital Signs: Vital Signs Temperature 98.4 F 11/15/17 15:06 Pulse Rate 76 11/15/17 15:06 Respiratory Rate 20 11/15/17 15:06 Blood Pressure 143/69 11/15/17 15:06 O2 Sat by Pulse Oximetry (%) 98 11/15/17 10:00 Labs: CBC, BMP 11/15/17 06:00 11/15/17 06:00
[2017-11-15] MEDS ORDERED: PT OWN MED DRAWER 7, Y5N ONE (16:59)
--- NOTE | 2017-11-15 18:33 | EKG ---
Test Reason : Blood Pressure : / mmHG Vent. Rate : 079 BPM Atrial Rate : 079 BPM P-R Int : 138 ms QRS Dur : 080 ms QT Int : 320 ms P-R-T Axes : 059 050 257 degrees QTc Int : 366 ms NORMAL SINUS RHYTHM T WAVE ABNORMALITY, CONSIDER INFERIOR ISCHEMIA T WAVE ABNORMALITY, CONSIDER ANTEROLATERAL ISCHEMIA ABNORMAL ECG WHEN COMPARED WITH ECG OF 05-NOV-2017 16:35, VENT. RATE HAS DECREASED Confirmed by ACOSTA HIGUERA, VICENTE ([id number]) on 11/15/2017 6:32:30 PM Referred By: Sabas LOPEZ Confirmed By:VICENTE SHANE MD
[2017-11-15] MEDS: traZODone HCL 50 MG TABLET (FP) PEG SCH (21:21)
[2017-11-15] MEDS: ATORVASTATIN CA 20 MG TABLET (FP) GT SCH (21:22)
[2017-11-15] MEDS: QUEtiapine FUMARATE 25 MG TABLET (FP) GT SCH (21:23)
[2017-11-16] MEDS ORDERED: dilTIAZem HCL 60 MG TABLET (FP) ONE ×4 (05:39→20:49)
[2017-11-16] MEDS ORDERED: dilTIAZem HCL 30 MG TABLET (FP) ONE ×4 (05:40→20:49)
[2017-11-16] MEDS: INSULIN SLIDING SCALE (NOVOLOG) 1 VIAL SQ SCH ×4 (06:37→22:12)
[2017-11-16] MEDS: INSULIN DETEMIR 100 UNITS/ML MDV SQ SCH ×2 (06:38→21:15)
[2017-11-16] MEDS: DILTIAZEM 60 MG, DILTIAZEM 30 MG GT SCH ×4 (06:38→17:50)
[2017-11-16 08:10] LABS: HEMATOCRIT 25.2 % (32.4-45.2); HEMOGLOBIN 8.7 GM/dL (10.7-15.3); MCHC 34.5 g/dl (32.0-36.0); MEAN CELL VOLUME 86.9 fl (80-96); MEAN PLT VOLUME 6.5 fl (7.5-11.1); PLATELET COUNT 264 K/MM3 (134-434); RDW 18.3 % (11.6-15.6); WHITE BLOOD COUNT 7.4 K/mm3 (4.0-10.0)
[2017-11-16 08:29] LABS: ALBUMIN 1.6 g/dl (3.4-5.0); ANION GAP 9 (8-16); BILIRUBIN,TOTAL 0.3 mg/dL (0.2-1.0); BLOOD UREA NITROGEN 28 mg/dL (7-18); CALCIUM 9.3 mg/dL (8.5-10.1); CHLORIDE 98 mmol/L (98-107); CO2 31 mmol/L (21-32); GLUCOSE,RANDOM 264 mg/dL (74-106); POTASSIUM 4.2 mmol/L (3.5-5.1); SGOT/AST 12 U/L (15-37); SGPT/ALT 12 U/L (12-78); SODIUM 138 mmol/L (136-145); TOT PROT 5.1 g/dl (6.4-8.2)
[2017-11-16 08:30] LABS: ALK PHOS 109 U/L (45-117)
--- NOTE | 2017-11-16 09:55 | PN ---
Progress Note, Physician - Current Medication List Current Medications: Active Medications Acetaminophen (Tylenol Oral Solution -) 650 mg GT Q6H PRN PRN Reason: pain 4-6 Last Admin: 11/15/17 10:56 Dose: 650 mg Albuterol/Ipratropium (Duoneb -) 1 amp NEB Q6H PRN PRN Reason: SHORTNESS OF BREATH Last Admin: 11/14/17 20:35 Dose: 1 amp Artificial Tears (Artificial Tears Ointment -) 1 applic OU BID [facility] Last Admin: 11/15/17 21:38 Dose: 1 applic Atorvastatin Calcium (Lipitor -) 20 mg GT HS [facility] Last Admin: 11/15/17 21:22 Dose: 20 mg Digoxin (Lanoxin -) 0.125 mg PEG Q2D@1000 [facility] Last Admin: 11/14/17 10:51 Dose: 0.125 mg Diltiazem HCl 60 mg/ Diltiazem (HCl 30 mg) 90 mg GT Q6HPO [facility] Last Admin: 11/16/17 06:38 Dose: 90 mg Insulin Aspart (Novolog Vial Sliding Scale -) 1 vial SQ TIDAC [facility] PRN Reason: Protocol Last Admin: 11/16/17 06:37 Dose: 4 unit Insulin Aspart (Novolog Vial Sliding Scale -) 1 vial SQ [facility] PRN Reason: Protocol Last Admin: 11/15/17 21:36 Dose: Not Given Insulin Detemir (Levemir Vial) 14 units SQ [facility] Last Admin: 11/15/17 21:21 Dose: 14 units Insulin Detemir (Levemir Vial) 24 units SQ AM [facility] Last Admin: 11/16/17 06:38 Dose: 24 units Magnesium Oxide (Mag-Ox -) 400 mg GT BID [facility] Last Admin: 11/15/17 21:22 Dose: 400 mg Metoprolol Tartrate (Lopressor -) 50 mg GT BID [facility] Last Admin: 11/15/17 21:22 Dose: 50 mg Nystatin/Triamcinolone Acetonide (Mycolog Ii Cream -) 1 applic TP BID [facility] Last Admin: 11/15/17 22:04 Dose: 1 applic Pantoprazole Sodium (Protonix Packets For Oral Suspension -) 20 mg PO DAILY [facility] Last Admin: 11/15/17 11:00 Dose: 20 mg Quetiapine Fumarate (Seroquel -) 25 mg GT [facility] Last Admin: 11/15/17 21:23 Dose: 25 mg Trazodone HCl (Desyrel -) 50 mg PEG HS [facility] Last Admin: 11/15/17 21:21 Dose: 50 mg Valproate Sodium (Depakene -) 500 mg PEG BID [facility] Last Admin: 11/15/17 21:20 Dose: 500 mg Zolpidem Tartrate (Ambien -) 5 mg PO HS PRN PRN Reason: INSOMNIA Last Admin: 11/14/17 21:35 Dose: 5 mg - Objective Vital Signs: Vital Signs Temperature 97.4 F L 11/16/17 05:54 Pulse Rate 89 11/16/17 05:54 Respiratory Rate 20 11/16/17 05:54 Blood Pressure 155/83 11/16/17 05:54 O2 Sat by Pulse Oximetry (%) 98 11/15/17 22:00 Cardiovascular: Yes: Regular Rate and Rhythm Respiratory: Yes: Regular, CTA Bilaterally Gastrointestinal: Yes: Normal Bowel Sounds, Soft. No: Tenderness Labs: CBC, BMP 11/16/17 06:48 11/16/17 06:48 INR, PTT INR 1.03 (0.82-1.09) 11/05/17 17:35 Assessment/Plan - Problems (1) Hyperglycemia Assessment/Plan: -BGM -Insulin, increase levemir -Endocrinology consult -feeding as per RD recommendation -repeat A1C 6.9 Code(s): R73.9 - HYPERGLYCEMIA, UNSPECIFIED (2) Anemia Assessment/Plan: -H/H stable -Hematology consult appreciated -s/p PRBC -2/2 to blood loss likely source GI -Iron profile normal -add B12 -monitor trend -stool OB positive Code(s): D64.9 - ANEMIA, UNSPECIFIED (3) Diabetes mellitus, insulin dependent (IDDM), uncontrolled Assessment/Plan: -A1c 6.9 -endocrinology consult -BGM -Insulin-levemir increased Code(s): E10.65 - TYPE 1 DIABETES MELLITUS WITH HYPERGLYCEMIA (4) Hematemesis Assessment/Plan: -seen by GI -H/H stabilized -stool OB positive -has had EGD's in the past -Metastatic colon cancer Code(s): K92.0 - HEMATEMESIS (5) Hypernatremia Assessment/Plan: -resolved -feedings and free water -monitor trend -renal consult appreciated Code(s): E87.0 - HYPEROSMOLALITY AND HYPERNATREMIA (6) Chronic respiratory failure Assessment/Plan: -seen by Pulmonary -on Trach collar -Increased congestion on CXR 11/08/17 -Barium Swallow avoid any PO intake -seen by Speech Therapy -Bronchodilators Code(s): J96.10 - CHRONIC RESPIRATORY FAILURE, UNSP W HYPOXIA OR HYPERCAPNIA (7) Metastatic colorectal cancer Assessment/Plan: -palliative care -hematology/oncology on board Code(s): C78.5 - SECONDARY MALIGNANT NEOPLASM OF LARGE INTESTINE AND RECTUM
[2017-11-16] MEDS ORDERED: INSULIN (NOVOLOG) ASPART 100 UNITS/ML 10ML VIAL ONE ×2 (11:00→20:49)
[2017-11-16] MEDS: METOPROLOL TARTRATE 50 MG TABLET (FP) GT SCH ×2 (11:04→21:15)
[2017-11-16] MEDS: DIGOXIN 0.125 MG TABLET (FP) PEG SCH (11:04)
[2017-11-16] MEDS: PANTOPRAZOLE SOD 40 MG SUSPENSION PACKET PO SCH (11:04)
[2017-11-16] MEDS: VALPROATE SODIUM 250 MG/5 ML UNIT DOSE CUP PEG SCH ×2 (11:05→21:14)
[2017-11-16] MEDS: MAGNESIUM OXIDE 400 MG TABLET (FP) GT SCH ×2 (11:05→21:16)
[2017-11-16] MEDS: MINERAL OIL/PETROLATUM,WHITE 3.5 GM TUBE OU SCH ×2 (11:14→21:14)
[2017-11-16] MEDS: NYSTATIN/TRIAMCINOLONE TOPICAL CREAM 15 GM TUBE TP SCH ×2 (11:14→21:16)
[2017-11-16 11:16] LABS: PLATELET ESTIMATE NORMAL
--- NOTE | 2017-11-16 14:06 | PN ---
Progress Note, Physician History of Present Illness: pulmonary alert,feeling better,less congested - Current Medication List Current Medications: Active Medications Acetaminophen (Tylenol Oral Solution -) 650 mg GT Q6H PRN PRN Reason: pain 4-6 Last Admin: 11/15/17 10:56 Dose: 650 mg Artificial Tears (Artificial Tears Ointment -) 1 applic OU BID [facility] Last Admin: 11/16/17 11:14 Dose: 1 applic Atorvastatin Calcium (Lipitor -) 20 mg GT HS [facility] Last Admin: 11/15/17 21:22 Dose: 20 mg Digoxin (Lanoxin -) 0.125 mg PEG Q2D@1000 [facility] Last Admin: 11/16/17 11:04 Dose: 0.125 mg Diltiazem HCl 60 mg/ Diltiazem (HCl 30 mg) 90 mg GT Q6HPO [facility] Last Admin: 11/16/17 11:03 Dose: 90 mg Insulin Aspart (Novolog Vial Sliding Scale -) 1 vial SQ TIDAC [facility] PRN Reason: Protocol Last Admin: 11/16/17 11:12 Dose: 3 unit Insulin Aspart (Novolog Vial Sliding Scale -) 1 vial SQ [facility] PRN Reason: Protocol Last Admin: 11/15/17 21:36 Dose: Not Given Insulin Detemir (Levemir Vial) 14 units SQ HS [facility] Last Admin: 11/15/17 21:21 Dose: 14 units Insulin Detemir (Levemir Vial) 24 units SQ AM [facility] Last Admin: 11/16/17 06:38 Dose: 24 units Magnesium Oxide (Mag-Ox -) 400 mg GT BID [facility] Last Admin: 11/16/17 11:05 Dose: 400 mg Metoprolol Tartrate (Lopressor -) 50 mg GT BID [facility] Last Admin: 11/16/17 11:04 Dose: 50 mg Nystatin/Triamcinolone Acetonide (Mycolog Ii Cream -) 1 applic TP BID [facility] Last Admin: 11/16/17 11:14 Dose: 1 applic Pantoprazole Sodium (Protonix Packets For Oral Suspension -) 20 mg PO DAILY [facility] Last Admin: 11/16/17 11:04 Dose: 20 mg Quetiapine Fumarate (Seroquel -) 25 mg GT [facility] Last Admin: 11/15/17 21:23 Dose: 25 mg Trazodone HCl (Desyrel -) 50 mg PEG [facility] Last Admin: 11/15/17 21:21 Dose: 50 mg Valproate Sodium (Depakene -) 500 mg PEG BID [facility] Last Admin: 11/16/17 11:05 Dose: 500 mg Zolpidem Tartrate (Ambien -) 5 mg PO HS PRN PRN Reason: INSOMNIA Last Admin: 11/14/17 21:35 Dose: 5 mg - Objective Vital Signs: Vital Signs Temperature 98.4 F 11/16/17 10:00 Pulse Rate 88 11/16/17 11:04 Respiratory Rate 18 11/16/17 10:00 Blood Pressure 148/80 11/16/17 10:00 O2 Sat by Pulse Oximetry (%) 98 11/16/17 10:00 Constitutional: Yes: Well Nourished, Calm Eyes: Yes: WNL HENT: Yes: WNL Neck: Yes: WNL Cardiovascular: Yes: Pulse Irregular, S1, S2 Respiratory: Yes: Rhonchi (few rhonchi julia) Gastrointestinal: Yes: Normal Bowel Sounds, Soft Extremities: Yes: WNL Edema: No Labs: CBC, BMP 11/16/17 06:48 11/16/17 06:48 INR, PTT INR 1.03 (0.82-1.09) 11/05/17 17:35 Assessment/Plan A/P Chronic Respiratory Failure s/p tracheostomy Metastatic Colon Ca to lung Atrial Fibrillation h/o CVA HTN DM - protonix - monitor H/H - aspiration precautions - trach collar - inhaled bronchodilators - O2 to keep SpO2 >90% - rate controlled - continue anticoagulation when ok with GI - DVT prophylaxis - ENT yehuda LEONE Problem List - Problems (1) Coffee ground emesis Code(s): K92.0 - HEMATEMESIS (2) Hyperglycemia Code(s): R73.9 - HYPERGLYCEMIA, UNSPECIFIED (3) Chronic respiratory failure Code(s): J96.10 - CHRONIC RESPIRATORY FAILURE, UNSP W HYPOXIA OR HYPERCAPNIA (4) Atrial fibrillation Code(s): I48.91 - UNSPECIFIED ATRIAL FIBRILLATION (5) Diabetes Code(s): E11.9 - TYPE 2 DIABETES MELLITUS WITHOUT COMPLICATIONS Qualifiers: Diabetes mellitus type: type 2 (6) HLD (hyperlipidemia) Code(s): E78.5 - HYPERLIPIDEMIA, UNSPECIFIED (7) HTN (hypertension) Code(s): I10 - ESSENTIAL (PRIMARY) HYPERTENSION (8) Lung mass Code(s): R91.8 - OTHER NONSPECIFIC ABNORMAL FINDING OF LUNG FIELD (9) Metastatic colorectal cancer Code(s): C78.5 - SECONDARY MALIGNANT NEOPLASM OF LARGE INTESTINE AND RECTUM
[2017-11-16] MEDS: traZODone HCL 50 MG TABLET (FP) PEG SCH (21:14)
[2017-11-16] MEDS: ATORVASTATIN CA 20 MG TABLET (FP) GT SCH (21:15)
[2017-11-16] MEDS: QUEtiapine FUMARATE 25 MG TABLET (FP) GT SCH (21:16)
[2017-11-17] MEDS: INSULIN SLIDING SCALE (NOVOLOG) 1 VIAL SQ SCH ×4 (06:31→21:32)
[2017-11-17] MEDS: DILTIAZEM 60 MG, DILTIAZEM 30 MG GT SCH ×4 (06:32→18:41)
[2017-11-17] MEDS: INSULIN DETEMIR 100 UNITS/ML MDV SQ SCH ×2 (06:32→21:32)
[2017-11-17 08:24] LABS: ALBUMIN 1.6 g/dl (3.4-5.0); ANION GAP 10 (8-16); BILIRUBIN,TOTAL 0.4 mg/dL (0.2-1.0); BLOOD UREA NITROGEN 27 mg/dL (7-18); CALCIUM 9.3 mg/dL (8.5-10.1); CHLORIDE 98 mmol/L (98-107); CO2 32 mmol/L (21-32); CREATININE 1.1 mg/dL (0.55-1.02); GLUCOSE,RANDOM 160 mg/dL (74-106); HEMATOCRIT 25.3 % (32.4-45.2); HEMOGLOBIN 8.7 GM/dL (10.7-15.3); MCHC 34.4 g/dl (32.0-36.0); MEAN CELL VOLUME 87.2 fl (80-96); MEAN PLT VOLUME 6.5 fl (7.5-11.1); PLATELET COUNT 280 K/MM3 (134-434); POTASSIUM 4.2 mmol/L (3.5-5.1); RDW 18.2 % (11.6-15.6); SGOT/AST 13 U/L (15-37); SGPT/ALT 11 U/L (12-78); SODIUM 140 mmol/L (136-145); TOT PROT 5.1 g/dl (6.4-8.2); WHITE BLOOD COUNT 7.2 K/mm3 (4.0-10.0)
[2017-11-17 08:25] LABS: ALK PHOS 102 U/L (45-117)
--- NOTE | 2017-11-17 10:08 | PN ---
Progress Note, Physician History of Present Illness: No events. No signs of bleeding. Pt appears comfortable, reports no abdominal pain, tenderness, nausea, or vomiting. - Current Medication List Current Medications: Active Medications Acetaminophen (Tylenol Oral Solution -) 650 mg GT Q6H PRN PRN Reason: pain 4-6 Last Admin: 11/15/17 10:56 Dose: 650 mg Artificial Tears (Artificial Tears Ointment -) 1 applic OU BID [facility] Last Admin: 11/16/17 21:14 Dose: 1 applic Atorvastatin Calcium (Lipitor -) 20 mg GT HS [facility] Last Admin: 11/16/17 21:15 Dose: 20 mg Digoxin (Lanoxin -) 0.125 mg PEG Q2D@1000 [facility] Last Admin: 11/16/17 11:04 Dose: 0.125 mg Diltiazem HCl 60 mg/ Diltiazem (HCl 30 mg) 90 mg GT Q6HPO [facility] Last Admin: 11/17/17 06:32 Dose: 90 mg Insulin Aspart (Novolog Vial Sliding Scale -) 1 vial SQ TIDAC [facility] PRN Reason: Protocol Last Admin: 11/17/17 06:31 Dose: 2 unit Insulin Aspart (Novolog Vial Sliding Scale -) 1 vial SQ [facility] PRN Reason: Protocol Last Admin: 11/16/17 22:12 Dose: Not Given Insulin Detemir (Levemir Vial) 14 units SQ HS [facility] Last Admin: 11/16/17 21:15 Dose: 14 units Insulin Detemir (Levemir Vial) 24 units SQ AM [facility] Last Admin: 11/17/17 06:32 Dose: 24 units Magnesium Oxide (Mag-Ox -) 400 mg GT BID [facility] Last Admin: 11/16/17 21:16 Dose: 400 mg Metoprolol Tartrate (Lopressor -) 50 mg GT BID [facility] Last Admin: 11/16/17 21:15 Dose: 50 mg Nystatin/Triamcinolone Acetonide (Mycolog Ii Cream -) 1 applic TP BID [facility] Last Admin: 11/16/17 21:16 Dose: 1 applic Pantoprazole Sodium (Protonix Packets For Oral Suspension -) 20 mg PO DAILY [facility] Last Admin: 11/16/17 11:04 Dose: 20 mg Quetiapine Fumarate (Seroquel -) 25 mg GT [facility] Last Admin: 11/16/17 21:16 Dose: 25 mg Trazodone HCl (Desyrel -) 50 mg PEG HS [facility] Last Admin: 11/16/17 21:14 Dose: 50 mg Valproate Sodium (Depakene -) 500 mg PEG BID [facility] Last Admin: 11/16/17 21:14 Dose: 500 mg Zolpidem Tartrate (Ambien -) 5 mg PO HS PRN PRN Reason: INSOMNIA Last Admin: 11/14/17 21:35 Dose: 5 mg - Objective Vital Signs: Vital Signs Temperature 99.0 F 11/17/17 06:00 Pulse Rate 92 H 11/17/17 06:00 Respiratory Rate 20 11/17/17 06:00 Blood Pressure 156/72 11/17/17 06:00 O2 Sat by Pulse Oximetry (%) 98 11/16/17 22:00 Constitutional: Yes: No Distress, Calm Eyes: Yes: Conjunctiva Clear Gastrointestinal: Yes: Soft. No: Distention, Tenderness, Vomiting Neurological: Yes: Alert Labs: CBC, BMP 11/17/17 07:35 11/17/17 07:35 INR, PTT INR 1.03 (0.82-1.09) 11/05/17 17:35 CBCD WBC 7.2 K/mm3 (4.0-10.0) 11/17/17 07:35 RBC 2.90 M/mm3 (3.60-5.2) L 11/17/17 07:35 Hgb 8.7 GM/dL (10.7-15.3) L 11/17/17 07:35 Hct 25.3 % (32.4-45.2) L 11/17/17 07:35 MCV 87.2 fl (80-96) 11/17/17 07:35 MCHC 34.4 g/dl (32.0-36.0) 11/17/17 07:35 RDW 18.2 % (11.6-15.6) H 11/17/17 07:35 Plt Count 280 K/MM3 (134-434) 11/17/17 07:35 MPV 6.5 fl (7.5-11.1) L 11/17/17 07:35 CMP Sodium 140 mmol/L (136-145) 11/17/17 07:35 Potassium 4.2 mmol/L (3.5-5.1) 11/17/17 07:35 Chloride 98 mmol/L (98-107) 11/17/17 07:35 Carbon Dioxide 32 mmol/L (21-32) 11/17/17 07:35 Anion Gap 10 (8-16) 11/17/17 07:35 BUN 27 mg/dL (7-18) H 11/17/17 07:35 Creatinine 1.1 mg/dL (0.55-1.02) H 11/17/17 07:35 Creat Clearance w eGFR 50.67 (>60) 11/17/17 07:35 Calcium 9.3 mg/dL (8.5-10.1) 11/17/17 07:35 Total Bilirubin 0.4 mg/dL (0.2-1.0) D 11/17/17 07:35 AST 13 U/L (15-37) L 11/17/17 07:35 ALT 11 U/L (12-78) L 11/17/17 07:35 Alkaline Phosphatase 102 U/L (45-117) 11/17/17 07:35 Total Protein 5.1 g/dl (6.4-8.2) L 11/17/17 07:35 Albumin 1.6 g/dl (3.4-5.0) L 11/17/17 07:35 Problem List - Problems (1) Coffee ground emesis Code(s): K92.0 - HEMATEMESIS Assessment/Plan [facility] facility. Continue current care ?consider speaking valve
--- NOTE | 2017-11-17 10:24 | PN ---
Progress Note, Physician Chief Complaint: hematemesis Metastatic colon cancer History of Present Illness: NAD, alert and oriented, wants to go home. no N/V seen by GI -Barium swallow showed mild aspiration -strict NPO as per speech therapy -as per noted, daughter had been giving patient PO intake against medical advice or Speech Therapy During last admission, ENT assessment noted Vocal cords adducted,in midline. This would likely put pt at risk, unable to breathe out with PMV in place. Trial of PMV by sp path on 11/03/17, resulted in pt becoming anxious, hyperventilating, with elevated HR. CXR from 11/08/17 showed increased congestion, d/c IVF -Stool Guaiac positive -ENT to see the patient to downgrade the Tracheotomy tube - Current Medication List Current Medications: Active Medications Acetaminophen (Tylenol Oral Solution -) 650 mg GT Q6H PRN PRN Reason: pain 4-6 Last Admin: 11/15/17 10:56 Dose: 650 mg Artificial Tears (Artificial Tears Ointment -) 1 applic OU BID [facility] Last Admin: 11/16/17 21:14 Dose: 1 applic Atorvastatin Calcium (Lipitor -) 20 mg GT HS [facility] Last Admin: 11/16/17 21:15 Dose: 20 mg Digoxin (Lanoxin -) 0.125 mg PEG Q2D@1000 [facility] Last Admin: 11/16/17 11:04 Dose: 0.125 mg Diltiazem HCl 60 mg/ Diltiazem (HCl 30 mg) 90 mg GT Q6HPO [facility] Last Admin: 11/17/17 06:32 Dose: 90 mg Insulin Aspart (Novolog Vial Sliding Scale -) 1 vial SQ TIDAC [facility] PRN Reason: Protocol Last Admin: 11/17/17 06:31 Dose: 2 unit Insulin Aspart (Novolog Vial Sliding Scale -) 1 vial SQ HS [facility] PRN Reason: Protocol Last Admin: 11/16/17 22:12 Dose: Not Given Insulin Detemir (Levemir Vial) 14 units SQ HS [facility] Last Admin: 11/16/17 21:15 Dose: 14 units Insulin Detemir (Levemir Vial) 24 units SQ AM [facility] Last Admin: 11/17/17 06:32 Dose: 24 units Magnesium Oxide (Mag-Ox -) 400 mg GT BID [facility] Last Admin: 11/16/17 21:16 Dose: 400 mg Metoprolol Tartrate (Lopressor -) 50 mg GT BID [facility] Last Admin: 11/16/17 21:15 Dose: 50 mg Nystatin/Triamcinolone Acetonide (Mycolog Ii Cream -) 1 applic TP BID [facility] Last Admin: 11/16/17 21:16 Dose: 1 applic Pantoprazole Sodium (Protonix Packets For Oral Suspension -) 20 mg PO DAILY [facility] Last Admin: 11/16/17 11:04 Dose: 20 mg Quetiapine Fumarate (Seroquel -) 25 mg GT HS [facility] Last Admin: 11/16/17 21:16 Dose: 25 mg Trazodone HCl (Desyrel -) 50 mg PEG HS [facility] Last Admin: 11/16/17 21:14 Dose: 50 mg Valproate Sodium (Depakene -) 500 mg PEG BID [facility] Last Admin: 11/16/17 21:14 Dose: 500 mg Zolpidem Tartrate (Ambien -) 5 mg PO HS PRN PRN Reason: INSOMNIA Last Admin: 11/14/17 21:35 Dose: 5 mg - Objective Vital Signs: Vital Signs Temperature 99.0 F 11/17/17 06:00 Pulse Rate 92 H 11/17/17 06:00 Respiratory Rate 20 11/17/17 06:00 Blood Pressure 156/72 11/17/17 06:00 O2 Sat by Pulse Oximetry (%) 98 11/16/17 22:00 Constitutional: Yes: Well Nourished, No Distress, Calm Cardiovascular: Yes: Regular Rate and Rhythm Respiratory: Yes: Regular, Rhonchi, Other (Trach collar) Gastrointestinal: Yes: Normal Bowel Sounds, Soft Musculoskeletal: Yes: WNL Extremities: Yes: WNL Edema: No Peripheral Pulses WNL: Yes Neurological: Yes: Alert, Oriented Psychiatric: Yes: Alert, Oriented Labs: CBC, BMP 11/17/17 07:35 11/17/17 07:35 INR, PTT INR 1.03 (0.82-1.09) 11/05/17 17:35 Problem List - Problems (1) Hyperglycemia Assessment/Plan: -BGM -Insulin, increase levemir -Endocrinology consult -feeding as per RD recommendation -repeat A1C 6.9 Code(s): R73.9 - HYPERGLYCEMIA, UNSPECIFIED (2) Anemia Assessment/Plan: -H/H improved -Hematology consult appreciated -2/2 to blood loss likely source GI -Iron profile normal -B12 normal -monitor trend -stool OB positive -GI on board -Palliative care Code(s): D64.9 - ANEMIA, UNSPECIFIED (3) Diabetes mellitus, insulin dependent (IDDM), uncontrolled Assessment/Plan: -A1c 6.9 -endocrinology consult -BGM -Insulin-levemir increased Code(s): E10.65 - TYPE 1 DIABETES MELLITUS WITH HYPERGLYCEMIA (4) Hematemesis Assessment/Plan: -seen by GI -H/H stabilized -stool OB positive -has had EGD's in the past -Metastatic colon cancer Code(s): K92.0 - HEMATEMESIS (5) Hypernatremia Assessment/Plan: -resolved -feedings and free water -monitor trend -renal consult appreciated Code(s): E87.0 - HYPEROSMOLALITY AND HYPERNATREMIA (6) Chronic respiratory failure Assessment/Plan: -seen by Pulmonary -on Trach collar -CXR over the weekend no changes -Barium Swallow avoid any PO intake -seen by Speech Therapy -Bronchodilators -ENT to see patient to downgrade tracheotomy tube to a smaller size Code(s): J96.10 - CHRONIC RESPIRATORY FAILURE, UNSP W HYPOXIA OR HYPERCAPNIA (7) Metastatic colorectal cancer Assessment/Plan: -palliative care -hematology/oncology on board Code(s): C78.5 - SECONDARY MALIGNANT NEOPLASM OF LARGE INTESTINE AND RECTUM Assessment/Plan see problem list several options discussed with daughter at bedside. She has been declined by 26 facilities due to insurance coverage. Daughter trying to apply for medicare or get her mother on her father's insurance plan. Daughter would like to take her mother home. Would r/o option for home care before finally deciding the patient to be transferred to [facility]. Discussed with trimming caser and SW.
--- NOTE | 2017-11-17 10:41 | PN ---
Progress Note (short form) - Note Progress Note: NAD on Trach collar. Afebrile. No acute events overnight. Intake & Output 11/14/17 11/15/17 11/16/17 11/17/17 22:59 22:59 23:59 23:59 Intake Total 848 Balance 848 Weight 176 lb 6.4 oz Last Vital Signs Temp Pulse Resp BP Pulse Ox 99.0 F 92 H 20 156/72 98 11/17/17 06:00 11/17/17 06:00 11/17/17 06:00 11/17/17 06:00 11/16/17 22:00 Active Medications Acetaminophen (Tylenol Oral Solution -) 650 mg GT Q6H PRN PRN Reason: pain 4-6 Last Admin: 11/15/17 10:56 Dose: 650 mg Artificial Tears (Artificial Tears Ointment -) 1 applic OU BID [facility] Last Admin: 11/16/17 21:14 Dose: 1 applic Atorvastatin Calcium (Lipitor -) 20 mg GT HS [facility] Last Admin: 11/16/17 21:15 Dose: 20 mg Digoxin (Lanoxin -) 0.125 mg PEG Q2D@1000 [facility] Last Admin: 11/16/17 11:04 Dose: 0.125 mg Diltiazem HCl 60 mg/ Diltiazem (HCl 30 mg) 90 mg GT Q6HPO [facility] Last Admin: 11/17/17 06:32 Dose: 90 mg Insulin Aspart (Novolog Vial Sliding Scale -) 1 vial SQ TIDAC [facility] PRN Reason: Protocol Last Admin: 11/17/17 06:31 Dose: 2 unit Insulin Aspart (Novolog Vial Sliding Scale -) 1 vial SQ [facility] PRN Reason: Protocol Last Admin: 11/16/17 22:12 Dose: Not Given Insulin Detemir (Levemir Vial) 14 units SQ HS [facility] Last Admin: 11/16/17 21:15 Dose: 14 units Insulin Detemir (Levemir Vial) 24 units SQ AM [facility] Last Admin: 11/17/17 06:32 Dose: 24 units Magnesium Oxide (Mag-Ox -) 400 mg GT BID [facility] Last Admin: 11/16/17 21:16 Dose: 400 mg Metoprolol Tartrate (Lopressor -) 50 mg GT BID [facility] Last Admin: 11/16/17 21:15 Dose: 50 mg Nystatin/Triamcinolone Acetonide (Mycolog Ii Cream -) 1 applic TP BID [facility] Last Admin: 11/16/17 21:16 Dose: 1 applic Pantoprazole Sodium (Protonix Packets For Oral Suspension -) 20 mg PO DAILY [facility] Last Admin: 11/16/17 11:04 Dose: 20 mg Quetiapine Fumarate (Seroquel -) 25 mg GT HS [facility] Last Admin: 11/16/17 21:16 Dose: 25 mg Trazodone HCl (Desyrel -) 50 mg PEG HS [facility] Last Admin: 11/16/17 21:14 Dose: 50 mg Valproate Sodium (Depakene -) 500 mg PEG BID [facility] Last Admin: 11/16/17 21:14 Dose: 500 mg Zolpidem Tartrate (Ambien -) 5 mg PO HS PRN PRN Reason: INSOMNIA Last Admin: 11/14/17 21:35 Dose: 5 mg Constitutional: Yes: NAD on Trach collar Eyes: Yes: WNL HENT: Yes: WNL Neck: Yes: WNL Cardiovascular: Yes: Pulse Irregular, S1, S2 Respiratory: Yes: few scattered Rhonchi Gastrointestinal: Yes: Normal Bowel Sounds, Soft Extremities: Yes: WNL Edema: No Labs: Laboratory Results - last 24 hr 11/13/17 11/16/17 11/16/17 10:45 06:48 11:11 WBC RBC Hgb Hct MCV MCH MCHC RDW Plt Count MPV Neutrophils % Neutrophils % (Manual) 48.4 D Band Neutrophils % 5.3 Lymphocytes % Lymphocytes % (Manual) 22.1 D Monocytes % (Manual) 17 H* D Eosinophils % (Manual) 3.2 D Basophils % (Manual) 0.0 Myelocytes % (Man) 4 H D Promyelocytes % (Man) 0 Blast Cells % (Manual) 0 Nucleated RBC % 0 Metamyelocytes 0 D Platelet Estimate Normal Sodium Potassium Chloride Carbon Dioxide Anion Gap BUN Creatinine Creat Clearance w eGFR POC Glucometer 192 Random Glucose Calcium Total Bilirubin AST ALT Alkaline Phosphatase Total Protein Albumin Blood Type O POSITIVE Antibody Screen Negative Crossmatch See Detail 11/16/17 11/16/17 11/17/17 17:54 21:19 06:03 WBC RBC Hgb Hct MCV MCH MCHC RDW Plt Count MPV Neutrophils % Neutrophils % (Manual) Band Neutrophils % Lymphocytes % Lymphocytes % (Manual) Monocytes % (Manual) Eosinophils % (Manual) Basophils % (Manual) Myelocytes % (Man) Promyelocytes % (Man) Blast Cells % (Manual) Nucleated RBC % Metamyelocytes Platelet Estimate Sodium Potassium Chloride Carbon Dioxide Anion Gap BUN Creatinine Creat Clearance w eGFR POC Glucometer 157 122 194 Random Glucose Calcium Total Bilirubin AST ALT Alkaline Phosphatase Total Protein Albumin Blood Type Antibody Screen Crossmatch 11/17/17 11/17/17 07:35 07:35 WBC 7.2 RBC 2.90 L Hgb 8.7 L Hct 25.3 L MCV 87.2 MCH 30.0 MCHC 34.4 RDW 18.2 H Plt Count 280 MPV 6.5 L Neutrophils % No Result Required. Neutrophils % (Manual) Band Neutrophils % Lymphocytes % No Result Required. Lymphocytes % (Manual) Monocytes % (Manual) Eosinophils % (Manual) Basophils % (Manual) Myelocytes % (Man) Promyelocytes % (Man) Blast Cells % (Manual) Nucleated RBC % Metamyelocytes Platelet Estimate Sodium 140 Potassium 4.2 Chloride 98 Carbon Dioxide 32 Anion Gap 10 BUN 27 H Creatinine 1.1 H Creat Clearance w eGFR 50.67 POC Glucometer Random Glucose 160 H Calcium 9.3 Total Bilirubin 0.4 D AST 13 L ALT 11 L Alkaline Phosphatase 102 Total Protein 5.1 L Albumin 1.6 L Blood Type Antibody Screen Crossmatch Problem List - Problems (1) Coffee ground emesis Code(s): K92.0 - HEMATEMESIS (2) Hyperglycemia Code(s): R73.9 - HYPERGLYCEMIA, UNSPECIFIED (3) Chronic respiratory failure Code(s): J96.10 - CHRONIC RESPIRATORY FAILURE, UNSP W HYPOXIA OR HYPERCAPNIA (4) Atrial fibrillation Code(s): I48.91 - UNSPECIFIED ATRIAL FIBRILLATION (5) Diabetes Code(s): E11.9 - TYPE 2 DIABETES MELLITUS WITHOUT COMPLICATIONS Qualifiers: Diabetes mellitus type: type 2 (6) HLD (hyperlipidemia) Code(s): E78.5 - HYPERLIPIDEMIA, UNSPECIFIED (7) HTN (hypertension) Code(s): I10 - ESSENTIAL (PRIMARY) HYPERTENSION (8) Lung mass Code(s): R91.8 - OTHER NONSPECIFIC ABNORMAL FINDING OF LUNG FIELD (9) Metastatic colorectal cancer Code(s): C78.5 - SECONDARY MALIGNANT NEOPLASM OF LARGE INTESTINE AND RECTUM Assessment/Plan Chronic Respiratory Failure s/p tracheostomy Metastatic Colon Ca to lung Atrial Fibrillation h/o CVA HTN DM - PPI - monitor H/H - aspiration precautions - trach collar - inhaled bronchodilators - O2 to keep SpO2 >90% - rate controlled - continue anticoagulation when ok with GI - VTE prophylaxis - Difficulty with PMV usage due to vocal cord pathology: for possible down- sizing of Trach if ENT deems appropriate - D/C planning Dr Kaplan
[2017-11-17 10:43] LABS: ANISOCYTOSIS 0; MACROCYTOSIS 0; PLATELET ESTIMATE NORMAL
[2017-11-17] MEDS: PANTOPRAZOLE SOD 40 MG SUSPENSION PACKET PO SCH (10:49)
[2017-11-17] MEDS: MAGNESIUM OXIDE 400 MG TABLET (FP) GT SCH ×2 (10:50→21:01)
[2017-11-17] MEDS: NYSTATIN/TRIAMCINOLONE TOPICAL CREAM 15 GM TUBE TP SCH ×2 (10:50→21:36)
[2017-11-17] MEDS: METOPROLOL TARTRATE 50 MG TABLET (FP) GT SCH ×2 (10:50→21:03)
[2017-11-17] MEDS ORDERED: PT OWN MED DRAWER 7, Y5N ONE ×3 (10:54→20:40)
[2017-11-17] MEDS: VALPROATE SODIUM 250 MG/5 ML UNIT DOSE CUP PEG SCH ×2 (10:59→21:01)
[2017-11-17] MEDS: MINERAL OIL/PETROLATUM,WHITE 3.5 GM TUBE OU SCH ×2 (11:02→21:36)
--- NOTE | 2017-11-17 12:33 | PN ---
Progress Note, MANAGER DISH - Note Progress Note: Vocal cord dysfunction previously identified by ENT Assessed voicing with finger occlusion, but unsuccessful with no audible phonation. Related to trach size? Vocal cord dysfunction? Case reviewed with Dr. Puga- plan is to downsize/fenestrate trach for improved voicing. PMV reassessment to follow.
[2017-11-17] MEDS ORDERED: dilTIAZem HCL 60 MG TABLET (FP) ONE ×2 (14:39→18:39)
[2017-11-17] MEDS ORDERED: dilTIAZem HCL 30 MG TABLET (FP) ONE ×2 (14:39→18:39)
[2017-11-17] MEDS ORDERED: ZINC OXIDE/PANTHENOL/VITAMIN E 56 GM TUBE TP PRN (17:50)
[2017-11-17] MEDS: ACETAMINOPHEN 650 MG/20.3 ML ORAL SOLUTION (CUPS) GT PRN (18:41)
[2017-11-17] MEDS: diazePAM 5 MG TABLET PO PRN (20:53)
[2017-11-17] MEDS: ATORVASTATIN CA 20 MG TABLET (FP) GT SCH (21:01)
[2017-11-17] MEDS: traZODone HCL 50 MG TABLET (FP) PEG SCH (21:01)
[2017-11-17] MEDS: QUEtiapine FUMARATE 25 MG TABLET (FP) GT SCH (21:02)
--- NOTE | 2017-11-17 23:19 | CONSULT ---
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 She was admitted from SNF for vomiting and intolerance to peg feeding.since admission has not had further vomiting blood sugars have been stable on insulin doses and adjustment - History Source History Provided By: Patient - Past Medical History Cardio/Vascular: Yes: AFIB, HTN, Hyperlipdemia Gastrointestinal: Yes: Cancer (COLON), GERD Psych: Yes: Anxiety Endocrine: Yes: Diabetes Mellitus (ON INSULIN PUMP) - Past Surgical History Past Surgical History: Yes: Colectomy (2 YRS AGO COLON CA), Hernia Repair ( icisional) - Alcohol/Substance Use Hx Alcohol Use: No - Smoking History Smoking history: Unknown if ever smoked Have you smoked in the past 12 months: Yes Aproximately how many cigarettes per day: 0 - Social History Usual Living Arrangement: With Spouse ADL: Independent History of Recent Travel: No Home Medications - Allergies Allergies/Adverse Reactions: Allergies Allergy/AdvReac Type Severity Reaction Status Date / Time No Known Drug Allergies Allergy Verified 11/06/17 00:24 Medical Tape Allergy Uncoded 11/06/17 00:24 - Home Medications Home Medications: Ambulatory Orders Atorvastatin Ca [Lipitor] 20 mg PO HS #0 tablet 01/14/14 Digoxin [Lanoxin -] 0.125 mg PEG Q2D@1000 tablet 11/03/17 Diltiazem [Cardizem -] 90 mg NGT Q6HPO tablet 11/03/17 Divalproex [Depakote -] 500 mg PO BID #30 tablet.ec MDD 2 11/03/17 Insulin (Levemir) [Levemir Vial] 20 units SQ AM ml 11/03/17 Metoprolol Tartrate [Lopressor -] 50 mg NGT BID tablet 11/03/17 Mineral Oil/Petrolatum,White [Artificial Tears Ointment -] 1 applic OU BID tube 11/03/17 Mupirocin Ointment [Bactroban 2% Ointment -] 1 applic TP TID applic 11/03/17 Nystatin Ointment [Mycostatin Ointment -] 1 applic TP BID applic 11/03/17 Quetiapine Fumarate [Seroquel -] 25 mg PO HS tablet 11/03/17 traZODone HCL [Desyrel -] 50 mg PO HS tablet 11/03/17 Insulin (Levemir) [Levemir Vial] 15 units SQ AM ml 11/10/17 Review of Systems - Review of Systems Constitutional: reports: Weakness Eyes: reports: No Symptoms HENT: reports: Difficult Swallowing Neck: reports: No Symptoms Cardiovascular: reports: Shortness of Breath Respiratory: reports: Exercise Intolerance, SOB on Exertion Gastrointestinal: reports: Nausea Musculoskeletal: reports: Muscle Pain, Muscle Cramps, Muscle Weakness Neurological: reports: Incoordination, Numbness, Unsteady Gait, Weakness Physical Exam Vital Signs: Vital Signs Temperature 97.9 F 11/17/17 22:00 Pulse Rate 78 11/17/17 22:00 Respiratory Rate 20 11/17/17 22:00 Blood Pressure 113/53 11/17/17 22:00 O2 Sat by Pulse Oximetry (%) 100 11/17/17 22:00 Constitutional: Yes: Anxious Eyes: Yes: EOM Intact HENT: Yes: Normocephalic Neck: Yes: Trachea Midline, Other (tracheostomy with dome) Cardiovascular: Yes: Regular Rate and Rhythm Respiratory: Yes: On Venti-Mask, Rhonchi, SOB Gastrointestinal: Yes: Normal Bowel Sounds ...Rectal Exam: Yes: Deferred Renal/: Yes: WNL Musculoskeletal: Yes: Muscle Pain, Muscle Weakness Extremities: Yes: WNL Neurological: Yes: Alert, Oriented Labs: CBC, BMP 11/17/17 07:35 11/17/17 07:35 Problem List - Problems (1) Controlled type 1 diabetes mellitus with complication, with long-term current use of insulin Code(s): E10.8 - TYPE 1 DIABETES MELLITUS WITH UNSPECIFIED COMPLICATIONS (2) CKD (chronic kidney disease) Code(s): N18.9 - CHRONIC KIDNEY DISEASE, UNSPECIFIED (3) Hyperglycemia Code(s): R73.9 - HYPERGLYCEMIA, UNSPECIFIED (4) Hypokalemia Code(s): E87.6 - HYPOKALEMIA (5) Hypomagnesemia Code(s): E83.42 - HYPOMAGNESEMIA Assessment/Plan Current Active Problems CKD (chronic kidney disease) (Acute) Chronic respiratory failure (Acute) Coffee ground emesis (Acute) Gastric ulcer (Acute) Hematemesis (Acute) Hyperglycemia (Acute) Hypokalemia (Acute) Hypomagnesemia (Acute) diabetes mellitus iddm Abnormal Lab Results 11/17/17 11/17/17 07:35 07:35 RBC 2.90 L Hgb 8.7 L Hct 25.3 L RDW 18.2 H MPV 6.5 L Monocytes % (Manual) 12 H BUN 27 H Creatinine 1.1 H Random Glucose 160 H AST 13 L ALT 11 L Total Protein 5.1 L Albumin 1.6 L Laboratory Results - last 24 hr 11/17/17 11/17/17 11/17/17 06:03 07:35 07:35 WBC 7.2 RBC 2.90 L Hgb 8.7 L Hct 25.3 L MCV 87.2 MCH 30.0 MCHC 34.4 RDW 18.2 H Plt Count 280 MPV 6.5 L Neutrophils % No Result Required. Neutrophils % (Manual) 52.6 Band Neutrophils % 4.2 Lymphocytes % No Result Required. Lymphocytes % (Manual) 28.4 D Monocytes % (Manual) 12 H Eosinophils % (Manual) 1.1 Basophils % (Manual) 0.0 Myelocytes % (Man) 2 D Promyelocytes % (Man) 0 Blast Cells % (Manual) 0 Nucleated RBC % 0 Metamyelocytes 0 Hypochromia 0 Platelet Estimate Normal Polychromasia 0 Poikilocytosis 0 Anisocytosis 0 Microcytosis 0 Macrocytosis 0 Sodium 140 Potassium 4.2 Chloride 98 Carbon Dioxide 32 Anion Gap 10 BUN 27 H Creatinine 1.1 H Creat Clearance w eGFR 50.67 POC Glucometer 194 Random Glucose 160 H Calcium 9.3 Total Bilirubin 0.4 D AST 13 L ALT 11 L Alkaline Phosphatase 102 Total Protein 5.1 L Albumin 1.6 L 11/17/17 11/17/17 11/17/17 11:51 17:54 21:31 WBC RBC Hgb Hct MCV MCH MCHC RDW Plt Count MPV Neutrophils % Neutrophils % (Manual) Band Neutrophils % Lymphocytes % Lymphocytes % (Manual) Monocytes % (Manual) Eosinophils % (Manual) Basophils % (Manual) Myelocytes % (Man) Promyelocytes % (Man) Blast Cells % (Manual) Nucleated RBC % Metamyelocytes Hypochromia Platelet Estimate Polychromasia Poikilocytosis Anisocytosis Microcytosis Macrocytosis Sodium Potassium Chloride Carbon Dioxide Anion Gap BUN Creatinine Creat Clearance w eGFR POC Glucometer 191 189 194 Random Glucose Calcium Total Bilirubin AST ALT Alkaline Phosphatase Total Protein Albumin plan: bgm qid novolog insulin doses levemir 24 units am levemir 14 units hs
[2017-11-18] MEDS ORDERED: dilTIAZem HCL 60 MG TABLET (FP) ONE ×5 (00:15→20:50)
[2017-11-18] MEDS ORDERED: dilTIAZem HCL 30 MG TABLET (FP) ONE ×5 (00:15→20:50)
[2017-11-18] MEDS: DILTIAZEM 60 MG, DILTIAZEM 30 MG GT SCH ×4 (00:37→18:07)
[2017-11-18] MEDS: diazePAM 5 MG TABLET PO PRN ×2 (04:59→15:46)
[2017-11-18] MEDS: INSULIN DETEMIR 100 UNITS/ML MDV SQ SCH ×2 (06:10→21:12)
[2017-11-18] MEDS: INSULIN SLIDING SCALE (NOVOLOG) 1 VIAL SQ SCH ×4 (06:11→21:12)
--- NOTE | 2017-11-18 10:31 | PN ---
Progress Note, Physician Chief Complaint: hematemesis Metastatic colon cancer History of Present Illness: NAD, alert and oriented, wants to go home. no N/V seen by GI -Barium swallow showed mild aspiration -strict NPO as per speech therapy -as per noted, daughter had been giving patient PO intake against medical advice or Speech Therapy During last admission, ENT assessment noted Vocal cords adducted,in midline. This would likely put pt at risk, unable to breathe out with PMV in place. Trial of PMV by sp path on 11/03/17, resulted in pt becoming anxious, hyperventilating, with elevated HR. CXR from 11/08/17 showed increased congestion, d/c IVF -Stool Guaiac positive -ENT to see the patient to downgrade the Tracheotomy tube - Current Medication List Current Medications: Active Medications Acetaminophen (Tylenol Oral Solution -) 650 mg GT Q6H PRN PRN Reason: pain 4-6 Last Admin: 11/17/17 18:41 Dose: 650 mg Artificial Tears (Artificial Tears Ointment -) 1 applic OU BID [facility] Last Admin: 11/17/17 21:36 Dose: 1 applic Atorvastatin Calcium (Lipitor -) 20 mg GT HS [facility] Last Admin: 11/17/17 21:01 Dose: 20 mg Diazepam (Valium -) 5 mg PO Q8H PRN PRN Reason: ANXIETY Last Admin: 11/18/17 04:59 Dose: 5 mg Digoxin (Lanoxin -) 0.125 mg PEG Q2D@1000 [facility] Last Admin: 11/16/17 11:04 Dose: 0.125 mg Diltiazem HCl 60 mg/ Diltiazem (HCl 30 mg) 90 mg GT Q6HPO [facility] Last Admin: 11/18/17 05:34 Dose: 90 mg Insulin Aspart (Novolog Vial Sliding Scale -) 1 vial SQ TIDAC [facility] PRN Reason: Protocol Last Admin: 11/18/17 06:11 Dose: 4 unit Insulin Aspart (Novolog Vial Sliding Scale -) 1 vial SQ HS [facility] PRN Reason: Protocol Last Admin: 11/17/17 21:32 Dose: Not Given Insulin Detemir (Levemir Vial) 24 units SQ AM [facility] Last Admin: 11/18/17 06:10 Dose: 24 units Insulin Detemir (Levemir Vial) 14 units SQ HS [facility] Magnesium Oxide (Mag-Ox -) 400 mg GT BID [facility] Last Admin: 11/17/17 21:01 Dose: 400 mg Metoprolol Tartrate (Lopressor -) 50 mg GT BID [facility] Last Admin: 11/17/17 21:03 Dose: 50 mg Nystatin/Triamcinolone Acetonide (Mycolog Ii Cream -) 1 applic TP BID [facility] Last Admin: 11/17/17 21:36 Dose: 1 applic Pantoprazole Sodium (Protonix Packets For Oral Suspension -) 20 mg PO DAILY [facility] Last Admin: 11/17/17 10:49 Dose: 20 mg Quetiapine Fumarate (Seroquel -) 25 mg GT HS [facility] Last Admin: 11/17/17 21:02 Dose: 25 mg Trazodone HCl (Desyrel -) 50 mg PEG HS [facility] Last Admin: 11/17/17 21:01 Dose: 50 mg Valproate Sodium (Depakene -) 500 mg PEG BID [facility] Last Admin: 11/17/17 21:01 Dose: 500 mg Zinc Oxide/Panthenol/Vitamin E (Balmex Cream -) 1 applic TP [facility] PRN PRN Reason: HYGEINE Last Admin: 11/17/17 21:41 Dose: 1 applic - Objective Vital Signs: Vital Signs Temperature 97.3 F L 11/18/17 06:00 Pulse Rate 63 11/18/17 06:00 Respiratory Rate 20 11/18/17 06:00 Blood Pressure 137/72 11/18/17 06:00 O2 Sat by Pulse Oximetry (%) 100 11/17/17 22:00 Constitutional: Yes: Well Nourished, No Distress, Calm Cardiovascular: Yes: Regular Rate and Rhythm Respiratory: Yes: Regular Gastrointestinal: Yes: Normal Bowel Sounds, Soft, Other (PEG) Musculoskeletal: Yes: Muscle Weakness Extremities: Yes: WNL Edema: No Peripheral Pulses WNL: Yes Neurological: Yes: Alert, Oriented Psychiatric: Yes: Alert, Oriented Labs: CBC, BMP 11/17/17 07:35 11/17/17 07:35 INR, PTT INR 1.03 (0.82-1.09) 11/05/17 17:35 Problem List - Problems (1) Hyperglycemia Assessment/Plan: -BGM -Insulin, increase levemir -Endocrinology consult -feeding as per RD recommendation -repeat A1C 6.9 Code(s): R73.9 - HYPERGLYCEMIA, UNSPECIFIED (2) Anemia Assessment/Plan: -H/H improved -Hematology consult appreciated -2/2 to blood loss likely source GI -Iron profile normal -B12 normal -monitor trend -stool OB positive -GI on board -Palliative care Code(s): D64.9 - ANEMIA, UNSPECIFIED (3) Diabetes mellitus, insulin dependent (IDDM), uncontrolled Assessment/Plan: -A1c 6.9 -endocrinology consult -BGM -Insulin-levemir increased Code(s): E10.65 - TYPE 1 DIABETES MELLITUS WITH HYPERGLYCEMIA (4) Hematemesis Assessment/Plan: -seen by GI -H/H stabilized -stool OB positive -has had EGD's in the past -Metastatic colon cancer Code(s): K92.0 - HEMATEMESIS (5) Chronic respiratory failure Assessment/Plan: -seen by Pulmonary -on [facility] collar -CXR over the weekend no changes -Barium Swallow avoid any PO intake -seen by Speech Therapy -Bronchodilators -ENT to see patient to downgrade tracheotomy tube to a smaller size Code(s): J96.10 - CHRONIC RESPIRATORY FAILURE, UNSP W HYPOXIA OR HYPERCAPNIA (6) Metastatic colorectal cancer Assessment/Plan: -palliative care -hematology/oncology on board Code(s): C78.5 - SECONDARY MALIGNANT NEOPLASM OF LARGE INTESTINE AND RECTUM Assessment/Plan see problem list repeat swallow eval, PMV and feeding trial after Tracheotomy tube has been down graded. Denied by most rehab facilities, daughter wants to take her mother home
[2017-11-18] MEDS: VALPROATE SODIUM 250 MG/5 ML UNIT DOSE CUP PEG SCH ×2 (11:07→21:02)
[2017-11-18] MEDS: PANTOPRAZOLE SOD 40 MG SUSPENSION PACKET PO SCH (11:08)
[2017-11-18] MEDS: MAGNESIUM OXIDE 400 MG TABLET (FP) GT SCH ×2 (11:11→21:02)
[2017-11-18] MEDS: DIGOXIN 0.125 MG TABLET (FP) PEG SCH (11:12)
[2017-11-18] MEDS: METOPROLOL TARTRATE 50 MG TABLET (FP) GT SCH ×2 (11:12→21:02)
[2017-11-18] MEDS: NYSTATIN/TRIAMCINOLONE TOPICAL CREAM 15 GM TUBE TP SCH ×2 (11:14→21:18)
[2017-11-18] MEDS: MINERAL OIL/PETROLATUM,WHITE 3.5 GM TUBE OU SCH ×2 (11:15→21:17)
--- NOTE | 2017-11-18 11:28 | PN ---
Progress Note (short form) - Note Progress Note: NAD on Trach collar. Remains afebrile. No acute events overnight. Intake & Output 11/15/17 11/16/17 11/17/17 11/18/17 22:59 23:59 23:59 23:59 Intake Total 848 950 Balance 848 950 Weight 176 lb 6.4 oz 176 lb 11.2 oz Last Vital Signs Temp Pulse Resp BP Pulse Ox 97.3 F L 82 20 137/72 100 11/18/17 06:00 11/18/17 11:12 11/18/17 06:00 11/18/17 06:00 11/17/17 22:00 Active Medications Acetaminophen (Tylenol Oral Solution -) 650 mg GT Q6H PRN PRN Reason: pain 4-6 Last Admin: 11/17/17 18:41 Dose: 650 mg Artificial Tears (Artificial Tears Ointment -) 1 applic OU BID [facility] Last Admin: 11/18/17 11:15 Dose: 1 applic Atorvastatin Calcium (Lipitor -) 20 mg GT HS [facility] Last Admin: 11/17/17 21:01 Dose: 20 mg Diazepam (Valium -) 5 mg PO Q8H PRN PRN Reason: ANXIETY Last Admin: 11/18/17 04:59 Dose: 5 mg Digoxin (Lanoxin -) 0.125 mg PEG Q2D@1000 [facility] Last Admin: 11/18/17 11:12 Dose: 0.125 mg Diltiazem HCl 60 mg/ Diltiazem (HCl 30 mg) 90 mg GT Q6HPO [facility] Last Admin: 11/18/17 05:34 Dose: 90 mg Insulin Aspart (Novolog Vial Sliding Scale -) 1 vial SQ TIDAC [facility] PRN Reason: Protocol Last Admin: 11/18/17 11:11 Dose: 3 unit Insulin Aspart (Novolog Vial Sliding Scale -) 1 vial SQ HS [facility] PRN Reason: Protocol Last Admin: 11/17/17 21:32 Dose: Not Given Insulin Detemir (Levemir Vial) 24 units SQ AM [facility] Last Admin: 11/18/17 06:10 Dose: 24 units Insulin Detemir (Levemir Vial) 14 units SQ HS [facility] Magnesium Oxide (Mag-Ox -) 400 mg GT BID [facility] Last Admin: 11/18/17 11:11 Dose: 400 mg Metoprolol Tartrate (Lopressor -) 50 mg GT BID [facility] Last Admin: 11/18/17 11:12 Dose: 50 mg Nystatin/Triamcinolone Acetonide (Mycolog Ii Cream -) 1 applic TP BID [facility] Last Admin: 11/18/17 11:14 Dose: 1 applic Pantoprazole Sodium (Protonix Packets For Oral Suspension -) 20 mg PO DAILY [facility] Last Admin: 11/18/17 11:08 Dose: 20 mg Quetiapine Fumarate (Seroquel -) 25 mg GT HS [facility] Last Admin: 11/17/17 21:02 Dose: 25 mg Trazodone HCl (Desyrel -) 50 mg PEG HS [facility] Last Admin: 11/17/17 21:01 Dose: 50 mg Valproate Sodium (Depakene -) 500 mg PEG BID [facility] Last Admin: 11/18/17 11:07 Dose: 500 mg Zinc Oxide/Panthenol/Vitamin E (Balmex Cream -) 1 applic TP [facility] PRN PRN Reason: HYGEINE Last Admin: 11/17/17 21:41 Dose: 1 applic Constitutional: Yes: NAD on Trach collar Eyes: Yes: WNL HENT: Yes: WNL Neck: Yes: WNL Cardiovascular: Yes: Pulse Irregular, S1, S2 Respiratory: Yes: few scattered Rhonchi Gastrointestinal: Yes: Normal Bowel Sounds, Soft Extremities: Yes: WNL Edema: No Labs: Laboratory Results - last 24 hr 11/17/17 11/17/17 11/17/17 11:51 17:54 21:31 POC Glucometer 191 189 194 11/18/17 06:10 POC Glucometer 278 Problem List - Problems (1) Coffee ground emesis Code(s): K92.0 - HEMATEMESIS (2) Hyperglycemia Code(s): R73.9 - HYPERGLYCEMIA, UNSPECIFIED (3) Chronic respiratory failure Code(s): J96.10 - CHRONIC RESPIRATORY FAILURE, UNSP W HYPOXIA OR HYPERCAPNIA (4) Atrial fibrillation Code(s): I48.91 - UNSPECIFIED ATRIAL FIBRILLATION (5) Diabetes Code(s): E11.9 - TYPE 2 DIABETES MELLITUS WITHOUT COMPLICATIONS Qualifiers: Diabetes mellitus type: type 2 (6) HLD (hyperlipidemia) Code(s): E78.5 - HYPERLIPIDEMIA, UNSPECIFIED (7) HTN (hypertension) Code(s): I10 - ESSENTIAL (PRIMARY) HYPERTENSION (8) Lung mass Code(s): R91.8 - OTHER NONSPECIFIC ABNORMAL FINDING OF LUNG FIELD (9) Metastatic colorectal cancer Code(s): C78.5 - SECONDARY MALIGNANT NEOPLASM OF LARGE INTESTINE AND RECTUM Assessment/Plan Chronic Respiratory Failure s/p tracheostomy Metastatic Colon Ca to lung Atrial Fibrillation h/o CVA HTN DM - PPI - monitor H/H - aspiration precautions - trach collar - inhaled bronchodilators - O2 to keep SpO2 >90% - rate controlled - continue anticoagulation when ok with GI - VTE prophylaxis - Difficulty with PMV usage due to vocal cord pathology: for possible down- sizing of Trach if ENT deems appropriate - D/C planning Dr Kaplan
[2017-11-18] MEDS ORDERED: INSULIN (NOVOLOG) ASPART 100 UNITS/ML 10ML VIAL ONE (20:53)
[2017-11-18] MEDS ORDERED: PT OWN MED DRAWER 7, Y5N ONE (20:53)
[2017-11-18] MEDS ORDERED: ZOLPIDEM TARTRATE 5 MG TABLET PO PRN (21:00)
[2017-11-18] MEDS: QUEtiapine FUMARATE 25 MG TABLET (FP) GT SCH (21:02)
[2017-11-18] MEDS: traZODone HCL 50 MG TABLET (FP) PEG SCH (21:02)
[2017-11-18] MEDS: ATORVASTATIN CA 20 MG TABLET (FP) GT SCH (21:02)
[2017-11-19] MEDS: DILTIAZEM 60 MG, DILTIAZEM 30 MG GT SCH ×4 (00:03→17:37)
[2017-11-19] MEDS: ACETAMINOPHEN 650 MG/20.3 ML ORAL SOLUTION (CUPS) GT PRN (01:18)
[2017-11-19] MEDS ORDERED: dilTIAZem HCL 60 MG TABLET (FP) ONE ×4 (05:06→21:46)
[2017-11-19] MEDS ORDERED: dilTIAZem HCL 30 MG TABLET (FP) ONE ×4 (05:06→21:46)
[2017-11-19] MEDS: INSULIN SLIDING SCALE (NOVOLOG) 1 VIAL SQ SCH ×4 (06:13→21:38)
[2017-11-19] MEDS: INSULIN DETEMIR 100 UNITS/ML MDV SQ SCH ×2 (06:13→21:37)
--- NOTE | 2017-11-19 07:44 | PN ---
Progress Note (short form) - Note Progress Note: Thoracic Surgery Trach changed to #6 portex cuffed and fenestrated after discussion with Dr. Rainey , Regina Harrison, and patient's daughter. Tolerated well. With finger occlusion, can phonate some. Would request that Dr. Rainey look at cords in near future.
[2017-11-19 07:56] LABS: ALBUMIN 1.6 g/dl (3.4-5.0); ALK PHOS 99 U/L (45-117); ANION GAP 7 (8-16); BLOOD UREA NITROGEN 27 mg/dL (7-18); CALCIUM 8.5 mg/dL (8.5-10.1); CHLORIDE 97 mmol/L (98-107); CO2 34 mmol/L (21-32); GLUCOSE,RANDOM 262 mg/dL (74-106); POTASSIUM 4.2 mmol/L (3.5-5.1); SGOT/AST 13 U/L (15-37); SGPT/ALT 10 U/L (12-78); SODIUM 138 mmol/L (136-145); TOT PROT 4.9 g/dl (6.4-8.2)
[2017-11-19 08:26] LABS: BILIRUBIN,TOTAL < 0.1 mg/dL (0.2-1.0)
--- NOTE | 2017-11-19 10:08 | PN ---
Progress Note, Physician Chief Complaint: hematemesis Metastatic colon cancer History of Present Illness: NAD, alert and oriented, wants to go home. no N/V seen by GI -Barium swallow showed mild aspiration -strict NPO as per speech therapy -as per noted, daughter had been giving patient PO intake against medical advice or Speech Therapy During last admission, ENT assessment noted Vocal cords adducted,in midline. This would likely put pt at risk, unable to breathe out with PMV in place. Trial of PMV by sp path on 11/03/17, resulted in pt becoming anxious, hyperventilating, with elevated HR. CXR from 11/08/17 showed increased congestion, d/c IVF -Stool Guaiac positive -Awaiting ENT to see the patient to downgrade the Tracheotomy tube - Current Medication List Current Medications: Active Medications Acetaminophen (Tylenol Oral Solution -) 650 mg GT Q6H PRN PRN Reason: pain 4-6 Last Admin: 11/19/17 01:18 Dose: 650 mg Artificial Tears (Artificial Tears Ointment -) 1 applic OU BID [facility] Last Admin: 11/18/17 21:17 Dose: 1 applic Atorvastatin Calcium (Lipitor -) 20 mg GT HS [facility] Last Admin: 11/18/17 21:02 Dose: 20 mg Diazepam (Valium -) 5 mg PO Q8H PRN PRN Reason: ANXIETY Last Admin: 11/18/17 15:46 Dose: 5 mg Digoxin (Lanoxin -) 0.125 mg PEG Q2D@1000 [facility] Last Admin: 11/18/17 11:12 Dose: 0.125 mg Diltiazem HCl 60 mg/ Diltiazem (HCl 30 mg) 90 mg GT Q6HPO [facility] Last Admin: 11/19/17 05:44 Dose: 90 mg Insulin Aspart (Novolog Vial Sliding Scale -) 1 vial SQ TIDAC [facility] PRN Reason: Protocol Last Admin: 11/19/17 06:13 Dose: 4 unit Insulin Aspart (Novolog Vial Sliding Scale -) 1 vial SQ HS [facility] PRN Reason: Protocol Last Admin: 11/18/17 21:12 Dose: Not Given Insulin Detemir (Levemir Vial) 24 units SQ AM [facility] Last Admin: 11/19/17 06:13 Dose: 24 units Insulin Detemir (Levemir Vial) 14 units SQ HS [facility] Last Admin: 11/18/17 21:12 Dose: 14 units Magnesium Oxide (Mag-Ox -) 400 mg GT BID [facility] Last Admin: 11/18/17 21:02 Dose: 400 mg Metoprolol Tartrate (Lopressor -) 50 mg GT BID [facility] Last Admin: 11/18/17 21:02 Dose: 50 mg Nystatin/Triamcinolone Acetonide (Mycolog Ii Cream -) 1 applic TP BID [facility] Last Admin: 11/18/17 21:18 Dose: 1 applic Pantoprazole Sodium (Protonix Packets For Oral Suspension -) 20 mg PO DAILY [facility] Last Admin: 11/18/17 11:08 Dose: 20 mg Quetiapine Fumarate (Seroquel -) 25 mg GT HS [facility] Last Admin: 11/18/17 21:02 Dose: 25 mg Trazodone HCl (Desyrel -) 50 mg PEG HS [facility] Last Admin: 11/18/17 21:02 Dose: 50 mg Valproate Sodium (Depakene -) 500 mg PEG BID [facility] Last Admin: 11/18/17 21:02 Dose: 500 mg Zinc Oxide/Panthenol/Vitamin E (Balmex Cream -) 1 applic TP [facility] PRN PRN Reason: HYGEINE Last Admin: 11/17/17 21:41 Dose: 1 applic Zolpidem Tartrate (Ambien -) 5 mg PO HS PRN PRN Reason: INSOMNIA Last Admin: 11/18/17 21:01 Dose: 5 mg - Objective Vital Signs: Vital Signs Temperature 97.5 F L 11/19/17 06:00 Pulse Rate 78 11/19/17 06:00 Respiratory Rate 18 11/19/17 06:00 Blood Pressure 131/77 11/19/17 06:00 O2 Sat by Pulse Oximetry (%) 100 11/18/17 21:00 Constitutional: Yes: Well Nourished, No Distress, Calm Cardiovascular: Yes: Regular Rate and Rhythm Respiratory: Yes: Regular Gastrointestinal: Yes: Normal Bowel Sounds, Soft, Other (PEG) Musculoskeletal: Yes: Muscle Weakness Extremities: Yes: WNL Edema: No Peripheral Pulses WNL: Yes Neurological: Yes: Alert, Oriented Psychiatric: Yes: Alert, Oriented Labs: CBC, BMP 11/19/17 06:20 INR, PTT INR 1.03 (0.82-1.09) 11/05/17 17:35 Problem List - Problems (1) Hyperglycemia Assessment/Plan: -BGM -Insulin, increase levemir -Endocrinology consult -feeding as per RD recommendation -repeat A1C 6.9 Code(s): R73.9 - HYPERGLYCEMIA, UNSPECIFIED (2) Anemia Assessment/Plan: -H/H improved -Hematology consult appreciated -2/2 to blood loss likely source GI -Iron profile normal -B12 normal -monitor trend -stool OB positive -GI on board -Palliative care Code(s): D64.9 - ANEMIA, UNSPECIFIED (3) Diabetes mellitus, insulin dependent (IDDM), uncontrolled Assessment/Plan: -A1c 6.9 -endocrinology consult -BGM -Insulin-levemir increased Code(s): E10.65 - TYPE 1 DIABETES MELLITUS WITH HYPERGLYCEMIA (4) Hematemesis Assessment/Plan: -seen by GI -H/H stabilized -stool OB positive -has had EGD's in the past -Metastatic colon cancer Code(s): K92.0 - HEMATEMESIS (5) Chronic respiratory failure Assessment/Plan: -seen by Pulmonary -on [facility] collar -CXR over the weekend no changes -Barium Swallow avoid any PO intake -seen by Speech Therapy -Bronchodilators -ENT to see patient to downgrade tracheotomy tube to a smaller size Code(s): J96.10 - CHRONIC RESPIRATORY FAILURE, UNSP W HYPOXIA OR HYPERCAPNIA (6) Metastatic colorectal cancer Assessment/Plan: -palliative care -hematology/oncology on board Code(s): C78.5 - SECONDARY MALIGNANT NEOPLASM OF LARGE INTESTINE AND RECTUM Assessment/Plan see problem list repeat swallow eval, PMV and feeding trial after Tracheotomy tube has been down graded. Denied by most rehab facilities, daughter wants to take her mother home
[2017-11-19] MEDS ORDERED: PT OWN MED DRAWER 7, Y5N ONE (10:46)
[2017-11-19] MEDS: METOPROLOL TARTRATE 50 MG TABLET (FP) GT SCH ×2 (10:58→21:39)
[2017-11-19] MEDS: VALPROATE SODIUM 250 MG/5 ML UNIT DOSE CUP PEG SCH ×2 (10:58→21:38)
[2017-11-19] MEDS: MAGNESIUM OXIDE 400 MG TABLET (FP) GT SCH ×2 (10:58→21:39)
[2017-11-19] MEDS: PANTOPRAZOLE SOD 40 MG SUSPENSION PACKET PO SCH (10:58)
[2017-11-19] MEDS: NYSTATIN/TRIAMCINOLONE TOPICAL CREAM 15 GM TUBE TP SCH ×2 (10:58→21:38)
[2017-11-19] MEDS: MINERAL OIL/PETROLATUM,WHITE 3.5 GM TUBE OU SCH ×2 (10:59→21:38)
[2017-11-19 11:24] LABS: HEMATOCRIT 25.8 % (32.4-45.2); HEMOGLOBIN 8.8 GM/dL (10.7-15.3); MCH 30.4 pg (25.7-33.7); MCHC 34.2 g/dl (32.0-36.0); MEAN PLT VOLUME 6.4 fl (7.5-11.1); PLATELET COUNT 286 K/MM3 (134-434); RBC 2.89 M/mm3 (3.60-5.2); RDW 18.7 % (11.6-15.6); WHITE BLOOD COUNT 7.2 K/mm3 (4.0-10.0)
[2017-11-19 12:38] LABS: ANISOCYTOSIS 1+; MACROCYTOSIS 1+; PLATELET ESTIMATE NORMAL
--- NOTE | 2017-11-19 14:52 | PN ---
Progress Note, Physician History of Present Illness: pulmonary alert,nad on trach collar. trach changed to #6 w/o complications - Current Medication List Current Medications: Active Medications Acetaminophen (Tylenol Oral Solution -) 650 mg GT Q6H PRN PRN Reason: pain 4-6 Last Admin: 11/19/17 01:18 Dose: 650 mg Artificial Tears (Artificial Tears Ointment -) 1 applic OU BID [facility] Last Admin: 11/19/17 10:59 Dose: 1 applic Atorvastatin Calcium (Lipitor -) 20 mg GT HS [facility] Last Admin: 11/18/17 21:02 Dose: 20 mg Diazepam (Valium -) 5 mg PO Q8H PRN PRN Reason: ANXIETY Last Admin: 11/18/17 15:46 Dose: 5 mg Digoxin (Lanoxin -) 0.125 mg PEG Q2D@1000 [facility] Last Admin: 11/18/17 11:12 Dose: 0.125 mg Diltiazem HCl 60 mg/ Diltiazem (HCl 30 mg) 90 mg GT Q6HPO [facility] Last Admin: 11/19/17 13:12 Dose: 90 mg Insulin Aspart (Novolog Vial Sliding Scale -) 1 vial SQ TIDAC [facility] PRN Reason: Protocol Last Admin: 11/19/17 13:08 Dose: Not Given Insulin Aspart (Novolog Vial Sliding Scale -) 1 vial SQ HS [facility] PRN Reason: Protocol Last Admin: 11/18/17 21:12 Dose: Not Given Insulin Detemir (Levemir Vial) 24 units SQ AM [facility] Last Admin: 11/19/17 06:13 Dose: 24 units Insulin Detemir (Levemir Vial) 14 units SQ HS [facility] Last Admin: 11/18/17 21:12 Dose: 14 units Magnesium Oxide (Mag-Ox -) 400 mg GT BID [facility] Last Admin: 11/19/17 10:58 Dose: 400 mg Metoprolol Tartrate (Lopressor -) 50 mg GT BID [facility] Last Admin: 11/19/17 10:58 Dose: 50 mg Nystatin/Triamcinolone Acetonide (Mycolog Ii Cream -) 1 applic TP BID [facility] Last Admin: 11/19/17 10:58 Dose: 1 applic Pantoprazole Sodium (Protonix Packets For Oral Suspension -) 20 mg PO DAILY [facility] Last Admin: 11/19/17 10:58 Dose: 20 mg Quetiapine Fumarate (Seroquel -) 25 mg GT HS [facility] Last Admin: 11/18/17 21:02 Dose: 25 mg Trazodone HCl (Desyrel -) 50 mg PEG HS [facility] Last Admin: 11/18/17 21:02 Dose: 50 mg Valproate Sodium (Depakene -) 500 mg PEG BID [facility] Last Admin: 11/19/17 10:58 Dose: 500 mg Zinc Oxide/Panthenol/Vitamin E (Balmex Cream -) 1 applic TP [facility] PRN PRN Reason: HYGEINE Last Admin: 11/17/17 21:41 Dose: 1 applic Zolpidem Tartrate (Ambien -) 5 mg PO HS PRN PRN Reason: INSOMNIA Last Admin: 11/18/17 21:01 Dose: 5 mg - Objective Vital Signs: Vital Signs Temperature 97.7 F 11/19/17 13:55 Pulse Rate 72 11/19/17 13:55 Respiratory Rate 20 11/19/17 13:55 Blood Pressure 152/76 11/19/17 13:55 O2 Sat by Pulse Oximetry (%) 100 11/18/17 21:00 Constitutional: Yes: Well Nourished, Calm Eyes: Yes: WNL HENT: Yes: WNL Neck: Yes: Supple (trach) Cardiovascular: Yes: Pulse Irregular, S1, S2 Respiratory: Yes: Rhonchi (few scattered rhonchi) Gastrointestinal: Yes: Normal Bowel Sounds, Soft Extremities: Yes: WNL Edema: No Labs: CBC, BMP 11/19/17 06:20 11/19/17 06:20 INR, PTT INR 1.03 (0.82-1.09) 11/05/17 17:35 Assessment/Plan A/P Chronic Respiratory Failure s/p tracheostomy Metastatic Colon Ca to lung Atrial Fibrillation h/o CVA HTN DM - protonix - monitor H/H - aspiration precautions - trach collar - inhaled bronchodilators - O2 to keep SpO2 >90% - rate controlled - continue anticoagulation when ok with GI - DVT prophylaxis - DR LEONE Problem List - Problems (1) Coffee ground emesis Code(s): K92.0 - HEMATEMESIS (2) Hyperglycemia Code(s): R73.9 - HYPERGLYCEMIA, UNSPECIFIED (3) Chronic respiratory failure Code(s): J96.10 - CHRONIC RESPIRATORY FAILURE, UNSP W HYPOXIA OR HYPERCAPNIA (4) Atrial fibrillation Code(s): I48.91 - UNSPECIFIED ATRIAL FIBRILLATION (5) Diabetes Code(s): E11.9 - TYPE 2 DIABETES MELLITUS WITHOUT COMPLICATIONS Qualifiers: Diabetes mellitus type: type 2 (6) HLD (hyperlipidemia) Code(s): E78.5 - HYPERLIPIDEMIA, UNSPECIFIED (7) HTN (hypertension) Code(s): I10 - ESSENTIAL (PRIMARY) HYPERTENSION (8) Lung mass Code(s): R91.8 - OTHER NONSPECIFIC ABNORMAL FINDING OF LUNG FIELD (9) Metastatic colorectal cancer Code(s): C78.5 - SECONDARY MALIGNANT NEOPLASM OF LARGE INTESTINE AND RECTUM
--- NOTE | 2017-11-19 16:11 | PN ---
Progress Note, [employer] - Note Progress Note: Trach changed to #6 portex cuffed and fenestrated. Pt feels she is breathing better and coughing less. Educated pt and daughter on finger occlusion to verbalize. She was instructed to inhale, occlude, speak, breathe. If she occludes trach too long, she becomes breathless, possibly sec to impaired vocal cord abduction. Voice is wet and gurgly. She was educated on occluding, coughing hard, with excellent ability to expectorate secretions out of her mouth. Pt taught to monitor vocal quality to clear secretions in airway. Selected Entries 11/18/17 11/18/17 11/18/17 06:00 10:00 16:45 Temperature 97.3 F L 97.6 F 97.7 F 11/18/17 11/19/17 11/19/17 22:00 06:00 13:55 Temperature 97.6 F 97.5 F L 97.7 F Laboratory Tests 11/19/17 06:20 WBC 7.2 IMP: Excellent improvement with fenestrated #6, with improved functional communication. REC: ENT at [facility] to visualize VC. PMV may still be contraindicated. [facility] as out pt, [facility] or [facility] for PO trials, with safety
[2017-11-19] MEDS ORDERED: diazePAM 5 MG TABLET PEG PRN (16:30)
[2017-11-19] MEDS ORDERED: ZOLPIDEM TARTRATE 5 MG TABLET PEG PRN (16:31)
[2017-11-19] MEDS ORDERED: INSULIN (NOVOLOG) ASPART 100 UNITS/ML 10ML VIAL ONE (18:15)
[2017-11-19] MEDS: ATORVASTATIN CA 20 MG TABLET (FP) GT SCH (21:39)
[2017-11-19] MEDS: QUEtiapine FUMARATE 25 MG TABLET (FP) GT SCH (21:39)
[2017-11-19] MEDS: traZODone HCL 50 MG TABLET (FP) PEG SCH (21:40)
[2017-11-20] MEDS ORDERED: dilTIAZem HCL 30 MG TABLET (FP) ONE ×2 (06:30→11:05)
[2017-11-20] MEDS ORDERED: dilTIAZem HCL 60 MG TABLET (FP) ONE ×2 (06:30→11:05)
[2017-11-20] MEDS: INSULIN DETEMIR 100 UNITS/ML MDV SQ SCH (06:36)
[2017-11-20] MEDS: DILTIAZEM 60 MG, DILTIAZEM 30 MG GT SCH ×3 (06:36→11:22)
[2017-11-20] MEDS: INSULIN SLIDING SCALE (NOVOLOG) 1 VIAL SQ SCH ×2 (06:39→11:24)
[2017-11-20 06:55] VITALS: TEMP 98.1
[2017-11-20] MEDS ORDERED: PT OWN MED DRAWER 7, Y5N ONE (09:13)
[2017-11-20] MEDS: MINERAL OIL/PETROLATUM,WHITE 3.5 GM TUBE OU SCH (09:14)
[2017-11-20] MEDS: DIGOXIN 0.125 MG TABLET (FP) PEG SCH (09:14)
[2017-11-20] MEDS: MAGNESIUM OXIDE 400 MG TABLET (FP) GT SCH (09:14)
[2017-11-20] MEDS: METOPROLOL TARTRATE 50 MG TABLET (FP) GT SCH (09:14)
[2017-11-20] MEDS: VALPROATE SODIUM 250 MG/5 ML UNIT DOSE CUP PEG SCH (09:14)
[2017-11-20] MEDS: NYSTATIN/TRIAMCINOLONE TOPICAL CREAM 15 GM TUBE TP SCH (09:18)
[2017-11-20] MEDS ORDERED: PANTOPRAZOLE SOD 40 MG SUSPENSION PACKET PEG SCH (10:00)
--- NOTE | 2017-11-20 10:27 | PN ---
Progress Note, Physician Chief Complaint: hematemesis Metastatic colon cancer History of Present Illness: NAD, alert and oriented, wants to go home. no N/V seen by GI -Barium swallow showed mild aspiration -strict NPO as per speech therapy -as per noted, daughter had been giving patient PO intake against medical advice or Speech Therapy During last admission, ENT assessment noted Vocal cords adducted,in midline. This would likely put pt at risk, unable to breathe out with PMV in place. Trial of PMV by sp path on 11/03/17, resulted in pt becoming anxious, hyperventilating, with elevated HR. CXR from 11/08/17 showed increased congestion, d/c IVF -Stool Guaiac positive -Trachostomy tube changed to portex #6, re-evaluated by Speech therapy with improved outcome -recommended visualization of vocal cords by ENT prior to discharge -[facility] [place] as outpatient - Current Medication List Current Medications: Active Medications Acetaminophen (Tylenol Oral Solution -) 650 mg GT Q6H PRN PRN Reason: pain 4-6 Last Admin: 11/19/17 01:18 Dose: 650 mg Artificial Tears (Artificial Tears Ointment -) 1 applic OU BID [facility] Last Admin: 11/20/17 09:14 Dose: 1 applic Atorvastatin Calcium (Lipitor -) 20 mg GT HS [facility] Last Admin: 11/19/17 21:39 Dose: 20 mg Diazepam (Valium -) 5 mg PEG Q8H PRN PRN Reason: ANXIETY Last Admin: 11/19/17 17:37 Dose: 5 mg Digoxin (Lanoxin -) 0.125 mg PEG Q2D@1000 [facility] Last Admin: 11/20/17 09:14 Dose: 0.125 mg Diltiazem HCl 60 mg/ Diltiazem (HCl 30 mg) 90 mg GT Q6HPO [facility] Last Admin: 11/20/17 06:36 Dose: 90 mg Insulin Aspart (Novolog Vial Sliding Scale -) 1 vial SQ TIDAC [facility] PRN Reason: Protocol Last Admin: 11/20/17 06:39 Dose: 4 unit Insulin Aspart (Novolog Vial Sliding Scale -) 1 vial SQ HS [facility] PRN Reason: Protocol Last Admin: 11/19/17 21:38 Dose: Not Given Insulin Detemir (Levemir Vial) 24 units SQ AM [facility] Last Admin: 11/20/17 06:36 Dose: 24 units Insulin Detemir (Levemir Vial) 14 units SQ HS [facility] Last Admin: 11/19/17 21:37 Dose: 14 units Magnesium Oxide (Mag-Ox -) 400 mg GT BID [facility] Last Admin: 11/20/17 09:14 Dose: 400 mg Metoprolol Tartrate (Lopressor -) 50 mg GT BID [facility] Last Admin: 11/20/17 09:14 Dose: 50 mg Nystatin/Triamcinolone Acetonide (Mycolog Ii Cream -) 1 applic TP BID [facility] Last Admin: 11/20/17 09:18 Dose: 1 applic Pantoprazole Sodium (Protonix Packets For Oral Suspension -) 20 mg PEG DAILY [facility] Last Admin: 11/20/17 09:14 Dose: 20 mg Quetiapine Fumarate (Seroquel -) 25 mg GT HS [facility] Last Admin: 11/19/17 21:39 Dose: 25 mg Trazodone HCl (Desyrel -) 50 mg PEG HS [facility] Last Admin: 11/19/17 21:40 Dose: 50 mg Valproate Sodium (Depakene -) 500 mg PEG BID [facility] Last Admin: 11/20/17 09:14 Dose: 500 mg Zinc Oxide/Panthenol/Vitamin E (Balmex Cream -) 1 applic TP [facility] PRN PRN Reason: HYGEINE Last Admin: 11/17/17 21:41 Dose: 1 applic Zolpidem Tartrate (Ambien -) 5 mg PEG HS PRN PRN Reason: INSOMNIA - Objective Vital Signs: Vital Signs Temperature 98.1 F 11/20/17 06:00 Pulse Rate 85 11/20/17 09:38 Respiratory Rate 20 11/20/17 06:00 Blood Pressure 175/77 11/20/17 06:00 O2 Sat by Pulse Oximetry (%) 97 11/20/17 09:38 Constitutional: Yes: Well Nourished, No Distress, Calm Cardiovascular: Yes: Regular Rate and Rhythm Respiratory: Yes: Regular, Rhonchi (diffuse) Gastrointestinal: Yes: Normal Bowel Sounds, Soft, Other (PEG) Musculoskeletal: Yes: Muscle Weakness Extremities: Yes: WNL Edema: No Peripheral Pulses WNL: Yes Neurological: Yes: Alert, Oriented Psychiatric: Yes: Alert, Oriented Labs: CBC, BMP 11/19/17 06:20 11/19/17 06:20 INR, PTT INR 1.03 (0.82-1.09) 11/05/17 17:35 Problem List - Problems (1) Hyperglycemia Assessment/Plan: -BGM -Insulin, increase levemir -Endocrinology consult -feeding as per RD recommendation -repeat A1C 6.9 Code(s): R73.9 - HYPERGLYCEMIA, UNSPECIFIED (2) Anemia Assessment/Plan: -H/H improved -Hematology consult appreciated -2/2 to blood loss likely source GI -Iron profile normal -B12 normal -monitor trend -stool OB positive -GI on board -Palliative care Code(s): D64.9 - ANEMIA, UNSPECIFIED (3) Diabetes mellitus, insulin dependent (IDDM), uncontrolled Assessment/Plan: -A1c 6.9 -endocrinology consult -BGM -Insulin-levemir increased Code(s): E10.65 - TYPE 1 DIABETES MELLITUS WITH HYPERGLYCEMIA (4) Hematemesis Assessment/Plan: -seen by GI -H/H stabilized -stool OB positive -has had EGD's in the past -Metastatic colon cancer Code(s): K92.0 - HEMATEMESIS (5) Chronic respiratory failure Assessment/Plan: -seen by Pulmonary -on [facility] collar -[facility] [place] as outpatient -seen by Speech Therapy -Bronchodilators -ENT to visualize vocal cords prior to discharge Code(s): J96.10 - CHRONIC RESPIRATORY FAILURE, UNSP W HYPOXIA OR HYPERCAPNIA (6) Metastatic colorectal cancer Assessment/Plan: -palliative care -hematology/oncology on board Code(s): C78.5 - SECONDARY MALIGNANT NEOPLASM OF LARGE INTESTINE AND RECTUM Assessment/Plan see problem list Denied by most rehab facilities, daughter wants to take her mother home, arrange discharge planning for home
--- NOTE | 2017-11-20 10:53 | PN ---
Progress Note (short form) - Note Progress Note: NAD on Trach collar. Remains afebrile. No acute events overnight. Intake & Output 11/17/17 11/18/17 11/19/17 11/20/17 23:59 23:59 23:59 23:59 Intake Total 2268 1050 2982 Balance 2268 1050 2982 Weight 176 lb 6.4 oz 176 lb 11.2 oz 177 lb 12.8 oz 175 lb 4.8 oz Last Vital Signs Temp Pulse Resp BP Pulse Ox 98.1 F 85 20 175/77 97 11/20/17 06:00 11/20/17 09:38 11/20/17 06:00 11/20/17 06:00 11/20/17 09:38 Active Medications Acetaminophen (Tylenol Oral Solution -) 650 mg GT Q6H PRN PRN Reason: pain 4-6 Last Admin: 11/19/17 01:18 Dose: 650 mg Artificial Tears (Artificial Tears Ointment -) 1 applic OU BID [facility] Last Admin: 11/20/17 09:14 Dose: 1 applic Atorvastatin Calcium (Lipitor -) 20 mg GT HS [facility] Last Admin: 11/19/17 21:39 Dose: 20 mg Diazepam (Valium -) 5 mg PEG Q8H PRN PRN Reason: ANXIETY Last Admin: 11/19/17 17:37 Dose: 5 mg Digoxin (Lanoxin -) 0.125 mg PEG Q2D@1000 [facility] Last Admin: 11/20/17 09:14 Dose: 0.125 mg Diltiazem HCl 60 mg/ Diltiazem (HCl 30 mg) 90 mg GT Q6HPO [facility] Last Admin: 11/20/17 06:36 Dose: 90 mg Insulin Aspart (Novolog Vial Sliding Scale -) 1 vial SQ TIDAC [facility] PRN Reason: Protocol Last Admin: 11/20/17 06:39 Dose: 4 unit Insulin Aspart (Novolog Vial Sliding Scale -) 1 vial SQ HS [facility] PRN Reason: Protocol Last Admin: 11/19/17 21:38 Dose: Not Given Insulin Detemir (Levemir Vial) 24 units SQ AM [facility] Last Admin: 11/20/17 06:36 Dose: 24 units Insulin Detemir (Levemir Vial) 14 units SQ HS [facility] Last Admin: 11/19/17 21:37 Dose: 14 units Magnesium Oxide (Mag-Ox -) 400 mg GT BID [facility] Last Admin: 11/20/17 09:14 Dose: 400 mg Metoprolol Tartrate (Lopressor -) 50 mg GT BID [facility] Last Admin: 11/20/17 09:14 Dose: 50 mg Nystatin/Triamcinolone Acetonide (Mycolog Ii Cream -) 1 applic TP BID [facility] Last Admin: 11/20/17 09:18 Dose: 1 applic Pantoprazole Sodium (Protonix Packets For Oral Suspension -) 20 mg PEG DAILY [facility] Last Admin: 11/20/17 09:14 Dose: 20 mg Quetiapine Fumarate (Seroquel -) 25 mg GT HS [facility] Last Admin: 11/19/17 21:39 Dose: 25 mg Trazodone HCl (Desyrel -) 50 mg PEG HS [facility] Last Admin: 11/19/17 21:40 Dose: 50 mg Valproate Sodium (Depakene -) 500 mg PEG BID [facility] Last Admin: 11/20/17 09:14 Dose: 500 mg Zinc Oxide/Panthenol/Vitamin E (Balmex Cream -) 1 applic TP [facility] PRN PRN Reason: HYGEINE Last Admin: 11/17/17 21:41 Dose: 1 applic Zolpidem Tartrate (Ambien -) 5 mg PEG HS PRN PRN Reason: INSOMNIA Constitutional: Yes: NAD on Trach collar Eyes: Yes: WNL HENT: Yes: WNL Neck: Yes: WNL Cardiovascular: Yes: Pulse Irregular, S1, S2 Respiratory: Yes: few scattered Rhonchi Gastrointestinal: Yes: Normal Bowel Sounds, Soft Extremities: Yes: WNL Edema: No Labs: Laboratory Results - last 24 hr 11/19/17 11/19/17 11/19/17 06:20 13:07 17:38 WBC 7.2 RBC 2.89 L Hgb 8.8 L Hct 25.8 L MCV 89.0 MCH 30.4 MCHC 34.2 RDW 18.7 H Plt Count 286 MPV 6.4 L Neutrophils % No Result Required. Neutrophils % (Manual) 50.0 Band Neutrophils % 4.0 Lymphocytes % No Result Required. Lymphocytes % (Manual) 27.0 Monocytes % (Manual) 13 H Eosinophils % (Manual) 3.0 D Basophils % (Manual) 0.0 Myelocytes % (Man) 1 D Promyelocytes % (Man) 0 Blast Cells % (Manual) 0 Nucleated RBC % 0 Metamyelocytes 1 D Hypochromia 0 Platelet Estimate Normal Polychromasia 1+ Poikilocytosis 1+ Anisocytosis 1+ Microcytosis 1+ Macrocytosis 1+ POC Glucometer 113 176 11/19/17 11/20/17 21:35 06:11 WBC RBC Hgb Hct MCV MCH MCHC RDW Plt Count MPV Neutrophils % Neutrophils % (Manual) Band Neutrophils % Lymphocytes % Lymphocytes % (Manual) Monocytes % (Manual) Eosinophils % (Manual) Basophils % (Manual) Myelocytes % (Man) Promyelocytes % (Man) Blast Cells % (Manual) Nucleated RBC % Metamyelocytes Hypochromia Platelet Estimate Polychromasia Poikilocytosis Anisocytosis Microcytosis Macrocytosis POC Glucometer 172 256 Problem List - Problems (1) Coffee ground emesis Code(s): K92.0 - HEMATEMESIS (2) Hyperglycemia Code(s): R73.9 - HYPERGLYCEMIA, UNSPECIFIED (3) Chronic respiratory failure Code(s): J96.10 - CHRONIC RESPIRATORY FAILURE, UNSP W HYPOXIA OR HYPERCAPNIA (4) Atrial fibrillation Code(s): I48.91 - UNSPECIFIED ATRIAL FIBRILLATION (5) Diabetes Code(s): E11.9 - TYPE 2 DIABETES MELLITUS WITHOUT COMPLICATIONS Qualifiers: Diabetes mellitus type: type 2 (6) HLD (hyperlipidemia) Code(s): E78.5 - HYPERLIPIDEMIA, UNSPECIFIED (7) HTN (hypertension) Code(s): I10 - ESSENTIAL (PRIMARY) HYPERTENSION (8) Lung mass Code(s): R91.8 - OTHER NONSPECIFIC ABNORMAL FINDING OF LUNG FIELD (9) Metastatic colorectal cancer Code(s): C78.5 - SECONDARY MALIGNANT NEOPLASM OF LARGE INTESTINE AND RECTUM Assessment/Plan Chronic Respiratory Failure s/p tracheostomy Metastatic Colon Ca to lung Atrial Fibrillation h/o CVA HTN DM - aspiration precautions - trach collar - inhaled bronchodilators - O2 to keep SpO2 >90% - 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
[2017-11-20] MEDS ORDERED: INSULIN (NOVOLOG) ASPART 100 UNITS/ML 10ML VIAL ONE (11:06)
[2017-11-20 11:29] VITALS: BP 191/87; PULSE 72
--- NOTE | 2017-11-20 12:30 | DS ---
Physical Examination Vital Signs: Vital Signs Temperature 98.1 F 11/20/17 06:00 Pulse Rate 72 11/20/17 11:15 Respiratory Rate 22 11/20/17 11:15 Blood Pressure 191/87 11/20/17 11:15 O2 Sat by Pulse Oximetry (%) 97 11/20/17 09:38 Constitutional: Yes: Well Nourished, No Distress, Calm Cardiovascular: Yes: Regular Rate and Rhythm Respiratory: Yes: Regular, Rhonchi Gastrointestinal: Yes: Normal Bowel Sounds, Soft Musculoskeletal: Yes: Muscle Weakness Extremities: Yes: WNL Edema: No Peripheral Pulses WNL: Yes Neurological: Yes: Alert, Oriented Psychiatric: Yes: Alert, Oriented Labs: CBC, BMP 11/19/17 06:20 11/19/17 06:20 Discharge Summary Reason For Visit: HYPERGLYCEMIA, COFFEE GROUND EMESIS Current Active Problems CKD (chronic kidney disease) (Acute) Chronic respiratory failure (Acute) Coffee ground emesis (Acute) Controlled type 1 diabetes mellitus with complication, with long-term current use of insulin (Acute) Gastric ulcer (Acute) Hematemesis (Acute) Hyperglycemia (Acute) Hypokalemia (Acute) Hypomagnesemia (Acute) Hospital Course: This is a 62 year old female with a past medical history significant for recent hospitalization 09/09-11/04/17 with 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 She was discharged to SNF yesterday and presents today with coffee ground emesis. Daughter reports that she doesn't believe pt has been receiving any insulin or had her BGM checked since [facility]. Daughter also expressing concern that the [facility] started pt on glucerna for tube feed although she had not tolerated it well in past. Pt reports feeling better at time of exam and denies any pain. No longer with coffee ground emesis. [place] records reviewed. It appears that many of her discharge medications were omitted on [facility] admission as there are no medication orders for them: metoprolol, digoxin, diltiazem, depakote, levemir, atorvastatin. There is no indication of any order for BGMs as well. Condition: Stable - Instructions Diet, Activity, Other Instructions: Follow up with Dr. Redd VENTURA Modified Barium swallow to be done as outpatient at [facility] or [facility] Speech therapy and Physical Therapy at the rehab Feeding: Continuos Vital 1.2 at 66 cc/hour with water 40 ml/hr Please check blood glucose before meals and at bedtime Trazodone increased to 100 mg at bedtime Please administer Insulin as ordered on the medication list Referrals: Nye Guzman MD [Staff Physician] - Park Harrison MS, [facility] [Speech Therapist] - Dejan Medina MD [Primary Care Provider] - Misbah Puga MD [Staff Physician] - Issa Kaplan MD [Staff Physician] - Ben Rainey MD [Staff Physician] - Disposition: CARE HOME FACILITY - Home Medications Comprehensive Discharge Medication List: Ambulatory Orders Atorvastatin Ca [Lipitor] 20 mg PO HS #0 tablet 01/14/14 Digoxin [Lanoxin -] 0.125 mg PEG Q2D@1000 tablet 11/03/17 Diltiazem [Cardizem -] 90 mg NGT Q6HPO tablet 11/03/17 Divalproex [Depakote -] 500 mg PO BID #30 tablet.ec MDD 2 11/03/17 Insulin (Levemir) [Levemir Vial] 20 units SQ AM ml 11/03/17 Metoprolol Tartrate [Lopressor -] 50 mg NGT BID tablet 11/03/17 Mineral Oil/Petrolatum,White [Artificial Tears Ointment -] 1 applic OU BID tube 11/03/17 Mupirocin Ointment [Bactroban 2% Ointment -] 1 applic TP TID applic 11/03/17 Quetiapine Fumarate [Seroquel -] 25 mg PO HS tablet 11/03/17 Diazepam [Valium] 5 mg PEG Q8H PRN tablet MDD 3 11/20/17 Diltiazem [Cardizem -] 90 mg GT Q6HPO tablet 11/20/17 Insulin (Levemir) [Levemir Vial] 14 units SQ HS ml 11/20/17 Insulin (Levemir) [Levemir Vial] 24 units SQ AM ml 11/20/17 Insulin Sliding Scale [Novolog Vial Sliding Scale -] 1 vial SQ HS units Insulin Sliding Scale [Novolog Vial Sliding Scale -] 1 vial SQ TIDAC units Magnesium Oxide [Mag-Ox -] 400 mg GT BID tablet 11/20/17 Nystatin/Triamcinolone Top Cr [Mycolog II -] 1 applic TP BID applic 11/20/17 Pantoprazole Suspension [Protonix Packets For Oral Suspension -] 20 mg PEG DAILY packet 11/20/17 Valproate Sodium [Depakene -] 500 mg PEG BID cup 11/20/17 Zinc Oxide/Panthenol/Vitamin E [Balmex Cream -] 1 applic TP ASDIR PRN tube Zolpidem Tartrate [Ambien] 5 mg PEG HS PRN tablet MDD 1 11/20/17 traZODone HCL [Desyrel -] 100 mg PO HS #0 tablet 11/20/17
== END 2017-11-20 12:49 | DRG 253 ==
LOC: JER 16:15 → JERBED 19:43 → J8W 11-06 13:23 → OBSVTOIN 11-08 08:26
PROVIDERS: ADMIT Internal Medicine; ATTEND Family Medicine
PROC: 3E0G76Z Introduction of Nutritional Substance into Upper GI, Via Natural or Artificial Opening (ICD-10-PCS; principal; 2017-11-07)
PROC: 30233N1 Transfusion of Nonautologous Red Blood Cells into Peripheral Vein, Percutaneous Approach (ICD-10-PCS; 2017-11-13)
DX: K92.0 Hematemesis (principal); J96.10 Chronic respiratory failure, unspecified whether with hypoxia or hypercapnia; Z93.0 Tracheostomy status; G91.9 Hydrocephalus, unspecified; E87.0 Hyperosmolality and hypernatremia; C78.00 Secondary malignant neoplasm of unspecified lung; E83.42 Hypomagnesemia; E11.22 Type 2 diabetes mellitus with diabetic chronic kidney disease; E11.65 Type 2 diabetes mellitus with hyperglycemia; Z93.1 Gastrostomy status; I48.2 Chronic atrial fibrillation; E88.09 Other disorders of plasma-protein metabolism, not elsewhere classified; N18.9 Chronic kidney disease, unspecified; Z79.4 Long term (current) use of insulin; I12.9 Hypertensive chronic kidney disease with stage 1 through stage 4 chronic kidney disease, or unspecified chronic kidney disease; E78.5 Hyperlipidemia, unspecified; Z85.038 Personal history of other malignant neoplasm of large intestine; I25.10 Atherosclerotic heart disease of native coronary artery without angina pectoris; F41.9 Anxiety disorder, unspecified; F32.9 Major depressive disorder, single episode, unspecified; Z86.73 Personal history of transient ischemic attack (TIA), and cerebral infarction without residual deficits; E87.6 Hypokalemia; K25.9 Gastric ulcer, unspecified as acute or chronic, without hemorrhage or perforation; D64.9 Anemia, unspecified; J38.3 Other diseases of vocal cords; R07.9 Chest pain, unspecified
CPT/HCPCS: 36415; 36430; 71045-TC-FY; 74019-TC-FY; 74230-TC-FY; 80048; 80053; 81003; 81015; 82009; 82272; 82550; 82607; 82728; 82947; 82962; 83036; 83540; 83550; 83735; 83880; 84100; 84132; 84439; 84443; 84484; 85025; 85027; 85610; 85730; 86850; 86900; 86901; 86922; 87086; 92611-GN; 93005; 93010; 94640; 97116-GP; 97161-GP; 99284-25; G0378; J7030; J7620; P9038; P9058